=== PATIENT | female | born 1950 | race Caucasian/White ===

== ENCOUNTER → 2020-03-09 08:49 | Outpatient (BNVA) | payer MEDICARE, SELFPAY | PROVIDERS: PCP Emergency Medicine; Referring Provider Internal Medicine; Visit Provider Hospitalist | DX: J44.9 Chronic obstructive pulmonary disease, unspecified (principal); J30.9 Allergic rhinitis, unspecified | CPT/HCPCS: 99212 ==

== ENCOUNTER 2020-04-11 10:29 | Outpatient (REF) | payer MEDICARE, SELFPAY ==
--- NOTE | 2020-04-11 10:33 | MM_ITS ---
EXAMINATION: MM SCREENING DIGITAL BREAST TOMOSYNTHESIS, BILATERAL CLINICAL INFORMATION: Screening. Asymptomatic. The lifetime risk of breast cancer based on the Tyrer-Cuzick Model is 4%. COMPARISON: Mammography: 02/02/2019, 01/22/2018 TECHNIQUE: Digital breast tomosynthesis is performed in both the craniocaudal and mediolateral oblique views along with computer-aided detection (CAD). Synthesized 2D images are generated from the tomosynthesis. FINDINGS: There are scattered areas of fibroglandular density (ACR BI-RADS breast composition Category b). There are no significant masses, abnormal calcifications, or other abnormalities. There is a dermal lesion overlying the upper outer left breast. MM/MM tomosynthesis screening BI IMPRESSION: No mammographic evidence of malignancy. ASSESSMENT: BI-RADS 2: Benign RECOMMENDATION: Routine annual mammography screening. This patient's information was entered into a reminder system with a target due date for their next mammogram.
== END 2020-04-11 10:30 | disposition home or self-care (01) ==
LOC: HO.MAMMO 10:29
PROVIDERS: PCP Emergency Medicine; Visit Provider Nurse Practitioner Family
DX: Z12.31 Encounter for screening mammogram for malignant neoplasm of breast (principal)
CPT/HCPCS: 77063; 77067

== ENCOUNTER → 2020-05-24 13:07 | Outpatient (BNVA) | payer MEDICARE, SELFPAY | PROVIDERS: PCP Family Medicine; Referring Provider Family Medicine; Visit Provider Student in an Organized Health Care Education/Training Program | DX: M89.49 Other hypertrophic osteoarthropathy, multiple sites (principal) | CPT/HCPCS: Q3014 ==

== ENCOUNTER → 2020-08-15 13:30 | Outpatient (BNVA) | payer MEDICARE, SELFPAY | PROVIDERS: Visit Provider Hospitalist | DX: J45.50 Severe persistent asthma, uncomplicated (principal); J30.9 Allergic rhinitis, unspecified; J44.9 Chronic obstructive pulmonary disease, unspecified | CPT/HCPCS: 99212 ==

== ENCOUNTER 2020-08-18 10:18 | Outpatient (REF) | payer MEDICARE, SELFPAY ==
--- NOTE | ~2020-08-18 | XR_ITS ---
EXAMINATION: XR CHEST CLINICAL INFORMATION: Asthma COMPARISON: Previous chest x-ray most recent November 2019 TECHNIQUE: 2 views of the chest were obtained. FINDINGS: Cardiac silhouette is enlarged but stable. Hilar and mediastinal contours are unremarkable. The lungs are clear. There is no pleural effusion or pneumothorax. There are degenerative changes of the spine. XR/XR chest 2V IMPRESSION: Stable enlargement of the cardiac silhouette. No evidence for acute disease in the chest.
[2020-08-18 11:25] LABS: MANUAL DIFF FLAG NO
[2020-08-18 11:38] LABS: Basophils Percent Auto 0.7 % (0-2); Eosinophils Absolute Auto 0.3 X10*3/uL (0.0-0.4); Eosinophils Percent Auto 4.8 % (0-4); Hematocrit 45.1 % (37-47); Hemoglobin 14.2 g/dl (12.0-16.0); Imm Gran Abs Auto 0.01 X10*3/uL (0.00-0.03); Imm Gran Pct Auto 0.2 % (0.0-0.4); Lymphocytes Absolute Auto 1.5 X10*3/uL (1.2-4.9); Lymphocytes Percent Auto 27.2 % (20-40); Mean Corpuscular HGB Conc 31.5 g/dl (31.0-35.0); Mean Corpuscular Hemoglobin 29.3 pg (27.0-33.0); Mean Corpuscular Volume 93.2 fL (80-98); Mean Platelet Volume 11.1 fL (9.4-12.3); Monocytes Absolute Auto 0.5 X10*3/uL (0.1-1.2); Monocytes Percent Auto 8.7 % (2-11); Neutrophils Absolute Auto 3.3 X10*3/uL (2.0-8.3); Neutrophils Percent Auto 58.4 % (45-73); Platelet Count 289 X10*3/uL (160-400); Red Blood Count 4.84 X10*6/uL (4.20-5.50); Red Cell Distribution Width 12.5 % (11.0-16.0); White Blood Count 5.6 X10*3/uL (4.8-10.8)
[2020-08-18 12:23] LABS: Erythrocyte Sedimentation Rate 7 MM/HR (0-20)
[2020-08-21 07:58] LABS: SARS COV2 IgG Negative (Negative)
[2020-08-22 01:12] LABS: Immunoglobulin G Subclass 1 593 mg/dL (382-929); Immunoglobulin G Subclass 2 468 mg/dL (241-700); Immunoglobulin G Subclass 3 68 mg/dL (22-178); Immunoglobulin G Total 1214 mg/dL (600-1540)
== END 2020-08-18 10:19 | disposition home or self-care (01) ==
LOC: HO.XRAY 10:18
PROVIDERS: Visit Provider Hospitalist
DX: J45.50 Severe persistent asthma, uncomplicated (principal); Z20.822 Contact with and (suspected) exposure to COVID-19
CPT/HCPCS: 36415; 71046; 82784; 82785; 85025; 85652; 86003; 86769

== ENCOUNTER 2020-08-24 15:23 | Outpatient (REF) | payer MEDICARE, SELFPAY ==
--- NOTE | ~2020-08-24 | XR_ITS ---
EXAMINATION: XR ABDOMEN WITH DECUBITUS VIEWS CLINICAL INDICATION: Diverticulitis and large intestine without perforation COMPARISON: None TECHNIQUE: Supine and upright views of the abdomen and pelvis FINDINGS: There are no dilated loops of bowel or air-fluid levels to suggest obstruction. There are surgical clips in the right lower quadrant. No calcifications are seen. There are mild degenerative changes of the lower lumbar spine. XR/XR abdomen w decubitus IMPRESSION: No evidence of obstruction or free air.
[2020-08-24 17:22] LABS: MANUAL DIFF FLAG NO
[2020-08-24 17:26] LABS: Basophils Percent Auto 0.5 % (0-2); Eosinophils Absolute Auto 0.2 X10*3/uL (0.0-0.4); Eosinophils Percent Auto 2.8 % (0-4); Hematocrit 43.8 % (37-47); Hemoglobin 14.2 g/dl (12.0-16.0); Imm Gran Abs Auto 0.02 X10*3/uL (0.00-0.03); Imm Gran Pct Auto 0.3 % (0.0-0.4); Lymphocytes Absolute Auto 2.1 X10*3/uL (1.2-4.9); Lymphocytes Percent Auto 27.1 % (20-40); Mean Corpuscular HGB Conc 32.4 g/dl (31.0-35.0); Mean Corpuscular Hemoglobin 29.9 pg (27.0-33.0); Mean Corpuscular Volume 92.2 fL (80-98); Mean Platelet Volume 11.3 fL (9.4-12.3); Monocytes Absolute Auto 0.7 X10*3/uL (0.1-1.2); Monocytes Percent Auto 8.5 % (2-11); Neutrophils Absolute Auto 4.7 X10*3/uL (2.0-8.3); Neutrophils Percent Auto 60.8 % (45-73); Platelet Count 260 X10*3/uL (160-400); Red Blood Count 4.75 X10*6/uL (4.20-5.50); Red Cell Distribution Width 12.3 % (11.0-16.0); White Blood Count 7.7 X10*3/uL (4.8-10.8)
[2020-08-24 17:45] LABS: Alanine Aminotransferase 17 U/L (0-31); Albumin Level 4.3 g/dL (3.5-5.0); Alkaline Phosphatase 88 U/L (39-117); Anion Gap 13 (12-20); Aspartate Amino Transferase 17 U/L (5-31); Bilirubin Total 1.1 mg/dL (0.0-1.0); Blood Urea Nitrogen 17 mg/dL (9-16); Calcium 9.8 mg/dL (8.4-10.2); Carbon Dioxide 27 mmol/L (22-29); Chloride 102 mmol/L (96-108); Estimated Glomerular Filt Rate > 60; Glucose Random 84 mg/dL (60-115); Potassium 4.1 mmol/L (3.3-5.1); Sodium 138 mmol/L (135-145); Total Protein 7.4 g/dL (6.5-8.0)
== END 2020-08-24 15:24 | disposition home or self-care (01) ==
LOC: HO.XRAY 15:23
PROVIDERS: PCP Emergency Medicine; Referring Provider Emergency Medicine; Visit Provider Nurse Practitioner
DX: K57.32 Diverticulitis of large intestine without perforation or abscess without bleeding (principal); K58.9 Irritable bowel syndrome, unspecified; K21.9 Gastro-esophageal reflux disease without esophagitis; K59.04 Chronic idiopathic constipation; Z79.899 Other long term (current) drug therapy
CPT/HCPCS: 36415; 74021; 80053; 85025; 99212

== ENCOUNTER 2020-08-30 09:47 | Outpatient (REF) | payer MEDICARE, SELFPAY | END 2020-08-30 09:48 | disposition home or self-care (01) | LOC: HO.LAB 09:47 | PROVIDERS: Visit Provider Hospitalist | DX: T78.40XA Allergy, unspecified, initial encounter (principal) | CPT/HCPCS: 36415 ==

== ENCOUNTER 2020-09-07 08:02 | Outpatient (REF) | payer MEDICARE, SELFPAY ==
--- NOTE | ~2020-09-07 | XR_ITS ---
EXAMINATION: BILATERAL KNEE X-RAY CLINICAL INFORMATION: Pain COMPARISON: Previous exams most recent August 2018 TECHNIQUE: Standing lateral and sunrise views of each knee FINDINGS: Right: Bone alignment is normal. No fracture or dislocation is seen. There is mild arthritis at the medial femoral tibial and patellofemoral joints with small osteophytes. There is no significant joint effusion. Left: Bone alignment is normal. No fracture or dislocation is seen. There is arthritis at the medial femoral tibial and patellofemoral joints. There is a moderate-sized joint effusion. There is increased soft tissue attenuation seen deep to the patellar tendon and Hoffa's fat pad. XR/XR knee RT 2V IMPRESSION: Arthritis, left greater than right. Moderate to large left knee joint effusion and increased attenuation in the soft tissues deep to the patellar tendon in Hoffa's fat pad.
--- NOTE | ~2020-09-07 | XR_ITS ---
EXAMINATION: BILATERAL KNEE X-RAY CLINICAL INFORMATION: Pain COMPARISON: Previous exams most recent August 2018 TECHNIQUE: Standing lateral and sunrise views of each knee FINDINGS: Right: Bone alignment is normal. No fracture or dislocation is seen. There is mild arthritis at the medial femoral tibial and patellofemoral joints with small osteophytes. There is no significant joint effusion. Left: Bone alignment is normal. No fracture or dislocation is seen. There is arthritis at the medial femoral tibial and patellofemoral joints. There is a moderate-sized joint effusion. There is increased soft tissue attenuation seen deep to the patellar tendon and Hoffa's fat pad. XR/XR knee LT 2V IMPRESSION: Arthritis, left greater than right. Moderate to large left knee joint effusion and increased attenuation in the soft tissues deep to the patellar tendon in Hoffa's fat pad.
--- NOTE | ~2020-09-07 | XR_ITS ---
EXAMINATION: BILATERAL KNEE X-RAY CLINICAL INFORMATION: Pain COMPARISON: Previous exams most recent August 2018 TECHNIQUE: Standing lateral and sunrise views of each knee FINDINGS: Right: Bone alignment is normal. No fracture or dislocation is seen. There is mild arthritis at the medial femoral tibial and patellofemoral joints with small osteophytes. There is no significant joint effusion. Left: Bone alignment is normal. No fracture or dislocation is seen. There is arthritis at the medial femoral tibial and patellofemoral joints. There is a moderate-sized joint effusion. There is increased soft tissue attenuation seen deep to the patellar tendon and Hoffa's fat pad. XR/XR knee standing BI IMPRESSION: Arthritis, left greater than right. Moderate to large left knee joint effusion and increased attenuation in the soft tissues deep to the patellar tendon in Hoffa's fat pad.
== END 2020-09-07 08:03 | disposition home or self-care (01) ==
LOC: HO.HOSX 08:02
PROVIDERS: Visit Provider Physician Assistant
DX: M25.561 Pain in right knee (principal); M25.562 Pain in left knee
CPT/HCPCS: 73560; 73565; 99202

== ENCOUNTER 2020-09-26 21:58 | Emergency (ER) | payer MEDICARE, SELFPAY ==
--- NOTE | ~2020-09-26 | CT_ITS ---
EXAMINATION: CT ABDOMEN AND PELVIS WITH CONTRAST CLINICAL INFORMATION: Left-sided abdominal pain with nausea/vomiting for 4 months COMPARISON: 04/19/2019 TECHNIQUE: Multidetector volumetric images were obtained from the superior aspect of the liver through the pubic symphysis following administration 85 mL of Omnipaque 350 intravenous contrast. Sagittal and coronal reformatted images were obtained on the technologist's workstation. Oral contrast: No This CT examination was performed using dose optimization techniques as appropriate, variously including the following: *Automated exposure control *Adjustment of mA and/or kV according to patient size (this includes techniques or standardized protocols for targeted exams where dose is matched to indication/reason for exam; i.e. extremities or head) *Use of iterative reconstruction technique DLP: 813 mGy-cm FINDINGS: LUNG BASES: The visualized lung bases are unremarkable. LIVER, GALLBLADDER, AND BILIARY TREE: The liver is normal in size, shape, and attenuation. No focal hepatic lesion or biliary ductal dilatation is present. Cholelithiasis is noted, with gallbladder assessment limited due to motion artifact. PANCREAS: Unremarkable. SPLEEN: Unremarkable. ADRENAL GLANDS: Unremarkable. KIDNEYS AND URETERS: The kidneys are normal in size, shape, and attenuation. Small hypodensity in the upper left kidney is suggestive of a cyst. Mild right hydronephrosis, though no obstructing calculus is seen. No perinephric stranding. BLADDER: Unremarkable. GASTROINTESTINAL TRACT: The small and large bowel are unremarkable. Patient appears status post appendectomy. No free fluid or free air is seen. ABDOMINAL WALL: No significant hernia is appreciated. LYMPH NODES: Normal. VASCULAR: Scattered atherosclerotic calcifications noted. PELVIC VISCERA: Unremarkable. OSSEOUS STRUCTURES: There is facet arthropathy of the lumbar spine. Anterior superior endplate osteophyte noted at L4. CT/CT abdomen pelvis w con IMPRESSION: 1. Cholelithiasis. If there is clinical concern for cholecystitis, this would be better assessed with ultrasound. 2. Mild right hydronephrosis with no obstructing calculus seen. 3. No acute bowel abnormality.
[2020-09-26 22:39] VITALS: BP 154/118; PULSE 92; RESP 18; TEMP 36.4; O2SAT 94; BMI 34.3
[2020-09-26 23:13] LABS: MANUAL DIFF FLAG NO
[2020-09-26 23:14] LABS: Basophils Absolute Auto 0.1 X10*3/uL (0.0-0.2); Basophils Percent Auto 0.6 % (0-2); Eosinophils Absolute Auto 0.3 X10*3/uL (0.0-0.4); Eosinophils Percent Auto 3.1 % (0-4); Hemoglobin 14.1 g/dl (12.0-16.0); Imm Gran Abs Auto 0.01 X10*3/uL (0.00-0.03); Imm Gran Pct Auto 0.1 % (0.0-0.4); Lymphocytes Absolute Auto 2.3 X10*3/uL (1.2-4.9); Lymphocytes Percent Auto 27.6 % (20-40); Mean Corpuscular HGB Conc 33.6 g/dl (31.0-35.0); Mean Corpuscular Hemoglobin 30.2 pg (27.0-33.0); Mean Corpuscular Volume 89.9 fL (80-98); Mean Platelet Volume 10.5 fL (9.4-12.3); Monocytes Absolute Auto 0.8 X10*3/uL (0.1-1.2); Monocytes Percent Auto 9.9 % (2-11); Neutrophils Percent Auto 58.7 % (45-73); Platelet Count 314 X10*3/uL (160-400); Red Blood Count 4.67 X10*6/uL (4.20-5.50); Red Cell Distribution Width 12.2 % (11.0-16.0); White Blood Count 8.5 X10*3/uL (4.8-10.8)
[2020-09-26 23:17] LABS: Glucose Urine UA NEG (NEG); Leukocyte Esterase Urine NEG (NEG); Nitrite Urine NEG (NEG); Specific Gravity - Urine 1.025 (1.005-1.025); Urine Blood 1+ (NEG); Urine Ketones NEG (NEG); Urine Protein NEG (NEG-TRACE)
[2020-09-26 23:22] LABS: Appearance Urine CLEAR; Color Urine YELLOW
[2020-09-26 23:26] LABS: Bacteria Urine 1+ /LPF; Mucus Urine 1+ /LPF; Squamous Epithelial Cell Urine 1+ /LPF
[2020-09-26 23:40] LABS: Lipase 18 U/L (8-78)
[2020-09-26 23:42] LABS: Alanine Aminotransferase 18 U/L (0-31); Albumin Level 4.3 g/dL (3.5-5.0); Alkaline Phosphatase 82 U/L (39-117); Anion Gap 12 (12-20); Aspartate Amino Transferase 16 U/L (5-31); Bilirubin Total 1.1 mg/dL (0.0-1.0); Blood Urea Nitrogen 16 mg/dL (9-16); Calcium 10.1 mg/dL (8.4-10.2); Carbon Dioxide 28 mmol/L (22-29); Chloride 105 mmol/L (96-108); Creatinine Clr Calc Pharmacy 69.5; Estimated Glomerular Filt Rate > 60; Glucose Random 125 mg/dL (60-115); Potassium 3.8 mmol/L (3.3-5.1); Sodium 141 mmol/L (135-145); Total Protein 7.3 g/dL (6.5-8.0)
--- NOTE | 2020-09-27 01:34 | ED_ITS ---
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 Mode of arrival: ambulatory Limitations: no limitations History of Present Illness MD elicited complaint: abdominal pain Pertinent past history: constipation and diverticulitis Onset (ago): month(s) (4) Pain Consistency: constant Location: LLQ and L flank Severity: severe Quality: stabbing Exacerbating factors: nothing Relieving factors: nothing Context: history of similar episodes Associated symptoms: nausea, vomiting and constipation Related Data Home Medications Medication Instructions Recorded Confirmed albuterol sulfate 90 mcg/actuation INHALATION 03/09/20 08/15/20 aerosol inhaler amitriptyline 25 mg tablet 25 mg PO BEDTIME 03/09/20 08/15/20 aspirin 81 mg chewable tablet 1 tab PO DAILY 03/09/20 08/15/20 carvedilol 3.125 mg tablet 3.125 mg PO BID 03/09/20 08/15/20 diltiazem HCl 240 mg 240 mg PO DAILY 03/09/20 08/15/20 capsule,extended release 24 hr docusate sodium 100 mg capsule 100 mg PO QID PRN 03/09/20 08/15/20 ergocalciferol (vitamin D2) 1,250 1,250 mcg PO QWEEK 03/09/20 08/15/20 mcg (50,000 unit) capsule furosemide 40 mg tablet 40 mg PO DAILY 03/09/20 08/15/20 gabapentin 300 mg capsule 0 mg PO 03/09/20 08/15/20 hydralazine 50 mg tablet 50 mg PO BID 03/09/20 08/15/20 hydrochlorothiazide 50 mg tablet 50 mg PO DAILY 03/09/20 08/15/20 lisinopril 40 mg tablet 40 mg PO DAILY 03/09/20 08/15/20 melatonin 10 mg capsule 10 mg PO BEDTIME 03/09/20 08/15/20 metaxalone 800 mg tablet 800 mg PO TID PRN 03/09/20 08/15/20 omeprazole 20 mg capsule,delayed 20 mg PO DAILY 03/09/20 08/15/20 release plecanatide 3 mg tablet 3 mg PO DAILY 03/09/20 08/15/20 Previous Rx's Medication Instructions Recorded loratadine 10 mg tablet 10 mg PO DAILY 30 Days #30 tab 03/09/20 linaclotide 290 mcg capsule 290 mcg PO QAM #30 cap 08/10/20 albuterol sulfate 2.5 mg INHALATION Q4H PRN 30 Days 08/15/20 #360 ml prednisone 10 mg tablet 10 mg PO DAILY 18 Days #63 tab 08/15/20 budesonide 0.5 mg/2 mL suspension 0.5 mg INHALATION DAILY #180 ml 08/24/20 for nebulization dicyclomine 10 mg capsule 20 mg PO QID PRN #120 cap 08/24/20 levofloxacin 750 mg tablet 750 mg PO Q24H 10 Days #10 tab 08/24/20 metronidazole 500 mg tablet 500 mg PO TID 10 Days #30 tab 08/24/20 celecoxib 200 mg capsule 200 mg PO BID 30 Days #60 cap 09/07/20 fluticasone furoate 200 1 inh INHALATION DAILY 30 Days #60 09/18/20 mcg-vilanterol 25 mcg/dose ea inhalation powder umeclidinium 62.5 mcg/actuation 1 inh PO DAILY 30 Days #30 ea 09/18/20 blister powder for inhalation montelukast 10 mg tablet 10 mg PO DAILY 30 Days #30 tab 09/19/20 cyclobenzaprine 5 mg PO TID PRN #14 tab 09/27/20 ondansetron 4 mg PO Q8H PRN #20 tab 09/27/20 Allergies Allergy/AdvReac Type Severity Reaction Status Date / Time morphine [MORPHINE] Allergy Intermediate NAUSEA, Verified 09/26/20 22:38 rash, redness bisacodyl Allergy Mild abdominal Verified 09/26/20 22:38 [Dulcolax (bisacodyl)] pain Review of Systems Review of Systems Constitutional : No Weight loss, No Fever, No Chills ENT/Mouth : No sore throat, No Rhinorrhea Eyes: No Swelling, No Redness Cardiovascular : No Chest Pain, No SOB, NoEdema Respiratory : No Cough, No Sputum, No Wheezing Gastrointestinal : Positive Nausea, Positive Vomiting, no Diarrhea, positive abdominal Pain, No Hematochezia, No Melena Genitourinary : No Dysuria, No Urinary Frequency, No Hematuria, No Urgency Musculoskeletal : No joint pain, No Myalgias, No Joint Swelling Skin : No Skin Lesions, No rash Neuro : No Weakness, No Numbness, No Dizziness, No Headache Psych : No Anxiety/Panic, No Depression Heme/Lymph: No Bruising, No Lymphadenopathy Endocrine : No Polyuria, No Polydipsia All other systems reviewed and are negative. Physical Exam Vital Signs: Vital Signs: Last Vital Signs Temp 98.1 F 09/27/20 01:40 Pulse 83 09/27/20 01:40 Resp 16 09/27/20 01:40 BP 174/93 H 09/27/20 01:40 Pulse Ox 95 09/27/20 01:40 Body Mass Index 34.3 Appearance: Alert. Oriented X3. No acute distress. Eyes: Pupils equal, round and reactive to light. ENT: Pharynx normal. Neck: Normal inspection. Neck supple. CVS: Normal heart rate and rhythm. Pulses normal. Respiratory: No respiratory distress. Breath sounds normal. Abdomen: Soft and moderate LLQ pain, no rebound or guarding Skin: Skin warm and dry. Normal skin color. Normal skin turgor. Extremities: No lower extremity edema. No calf ttp Neuro: Oriented X 3. No motor deficit. No sensory deficit. Course Course Course Narrative: pateint feels much better no acute findings in LLQ and she has no RUQ pain at site of gallstones, normal UA, feels very relieved no large cancerous mass seen in that area will refer her to her PCP MDM - Abdominal Pain MDM Narrative Medical decision making narrative: 70 yo female with L sided abdominal pain x 4 months now with n/v worsening pain, has seen GI started on antibiotics for presumed diverticulitis on 08/24 completed course but no imaging ordered or done at this time - will need labs, IV pain mediations, CT scan for mass/constipation/diverticulitis dispo per results and findings Lab Data Result diagrams: 09/27/20 02:03 09/27/20 02:03 Labs: Lab Results 09/26/20 09/26/20 09/26/20 Range/Units 23:05 23:05 23:06 WBC (4.8-10.8) X10*3/uL RBC (4.20-5.50) X10*6/uL Hgb (12.0-16.0) g/dl Hct (37-47) % MCV (80-98) fL MCH (27.0-33.0) pg MCHC (31.0-35.0) g/dl RDW (11.0-16.0) % Plt Count (160-400) X10*3/uL MPV (9.4-12.3) fL Immature Gran % (Auto) (0.0-0.4) % Neut % (Auto) (45-73) % Lymph % (Auto) (20-40) % [place] % (Auto) (2-11) % Eos % (Auto) (0-4) % Baso % (Auto) (0-2) % Lymph # (Auto) (1.2-4.9) X10*3/uL [place] # (Auto) (0.1-1.2) X10*3/uL Eos # (Auto) (0.0-0.4) X10*3/uL Baso # (Auto) (0.0-0.2) X10*3/uL Abs Immat Gran (auto) (0.00-0.03) X10*3/uL Absolute Neuts (auto) (2.0-8.3) X10*3/uL Absolute Nucleated RBC (0.0-0.012) X10*3/uL Nucleated RBC % (auto) (0.0-0.2) /100WBC Hold Blue Top Sodium 141 (135-145) mmol/L Potassium 3.8 (3.3-5.1) mmol/L Chloride 105 (96-108) mmol/L Carbon Dioxide 28 (22-29) mmol/L Anion Gap 12 (12-20) BUN 16 (9-16) mg/dL Creatinine 0.78 (0.5-1.4) mg/dL Estim Creat Clear Calc 69.5 Estimated GFR > 60 Random Glucose 125 H D (60-115) mg/dL Calcium 10.1 (8.4-10.2) mg/dL Magnesium (1.6-2.6) mg/dL Total Bilirubin 1.1 H (0.0-1.0) mg/dL Direct Bilirubin (0.0-0.5) mg/dL AST 16 (5-31) U/L ALT 18 (0-31) U/L Alkaline Phosphatase 82 (39-117) U/L Total Protein 7.3 (6.5-8.0) g/dL Albumin 4.3 (3.5-5.0) g/dL Lipase 18 (8-78) U/L Urine Color YELLOW Urine Appearance CLEAR Urine pH 6.0 (5.0-8.0) Ur Specific [place] 1.025 (1.005-1.025) Urine Protein NEG (NEG-TRACE) MG/DL Urine Glucose (UA) NEG (NEG) MG/DL Urine Ketones NEG (NEG) MG/DL Urine Blood 1+ H (NEG) Urine Nitrite NEG (NEG) Ur Leukocyte Esterase NEG (NEG) Urine RBC 1-4 (0) /HPF Urine WBC 1-4 (0-4) /HPF Ur Squamous Epith Cells 1+ /LPF Urine Bacteria 1+ /LPF Urine Mucus 1+ /LPF COVID-19 ([facility]) (Negative) COVID-19 Clin Com 09/26/20 09/26/20 09/27/20 Range/Units 23:06 23:06 02:03 WBC 8.5 8.1 (4.8-10.8) X10*3/uL RBC 4.67 4.87 (4.20-5.50) X10*6/uL Hgb 14.1 14.6 (12.0-16.0) g/dl Hct 42.0 44.2 (37-47) % MCV 89.9 90.8 (80-98) fL MCH 30.2 30.0 (27.0-33.0) pg MCHC 33.6 33.0 (31.0-35.0) g/dl RDW 12.2 12.3 (11.0-16.0) % Plt Count 314 319 (160-400) X10*3/uL MPV 10.5 10.5 (9.4-12.3) fL Immature Gran % (Auto) 0.1 0.2 (0.0-0.4) % Neut % (Auto) 58.7 57.4 (45-73) % Lymph % (Auto) 27.6 27.3 (20-40) % [place] % (Auto) 9.9 11.4 H (2-11) % Eos % (Auto) 3.1 3.2 (0-4) % Baso % (Auto) 0.6 0.5 (0-2) % Lymph # (Auto) 2.3 2.2 (1.2-4.9) X10*3/uL [place] # (Auto) 0.8 0.9 (0.1-1.2) X10*3/uL Eos # (Auto) 0.3 0.3 (0.0-0.4) X10*3/uL Baso # (Auto) 0.1 0.0 (0.0-0.2) X10*3/uL Abs Immat Gran (auto) 0.01 0.02 (0.00-0.03) X10*3/uL Absolute Neuts (auto) 5.0 4.6 (2.0-8.3) X10*3/uL Absolute Nucleated RBC 0.000 0.000 (0.0-0.012) X10*3/uL Nucleated RBC % (auto) 0.0 0.0 (0.0-0.2) /100WBC Hold Blue Top SEE NOTE Sodium (135-145) mmol/L Potassium (3.3-5.1) mmol/L Chloride (96-108) mmol/L Carbon Dioxide (22-29) mmol/L Anion Gap (12-20) BUN (9-16) mg/dL Creatinine (0.5-1.4) mg/dL Estim Creat Clear Calc Estimated GFR Random Glucose (60-115) mg/dL Calcium (8.4-10.2) mg/dL Magnesium (1.6-2.6) mg/dL Total Bilirubin (0.0-1.0) mg/dL Direct Bilirubin (0.0-0.5) mg/dL AST (5-31) U/L ALT (0-31) U/L Alkaline Phosphatase (39-117) U/L Total Protein (6.5-8.0) g/dL Albumin (3.5-5.0) g/dL Lipase (8-78) U/L Urine Color Urine Appearance Urine pH (5.0-8.0) Ur Specific [place] (1.005-1.025) Urine Protein (NEG-TRACE) MG/DL Urine Glucose (UA) (NEG) MG/DL Urine Ketones (NEG) MG/DL Urine Blood (NEG) Urine Nitrite (NEG) Ur Leukocyte Esterase (NEG) Urine RBC (0) /HPF Urine WBC (0-4) /HPF Ur Squamous Epith Cells /LPF Urine Bacteria /LPF Urine Mucus /LPF COVID-19 ([facility]) (Negative) COVID-19 Clin Com 09/27/20 09/27/20 09/27/20 Range/Units 02:03 02:03 02:03 WBC (4.8-10.8) X10*3/uL RBC (4.20-5.50) X10*6/uL Hgb (12.0-16.0) g/dl Hct (37-47) % MCV (80-98) fL MCH (27.0-33.0) pg MCHC (31.0-35.0) g/dl RDW (11.0-16.0) % Plt Count (160-400) X10*3/uL MPV (9.4-12.3) fL Immature Gran % (Auto) (0.0-0.4) % Neut % (Auto) (45-73) % Lymph % (Auto) (20-40) % [place] % (Auto) (2-11) % Eos % (Auto) (0-4) % Baso % (Auto) (0-2) % Lymph # (Auto) (1.2-4.9) X10*3/uL [place] # (Auto) (0.1-1.2) X10*3/uL Eos # (Auto) (0.0-0.4) X10*3/uL Baso # (Auto) (0.0-0.2) X10*3/uL Abs Immat Gran (auto) (0.00-0.03) X10*3/uL Absolute Neuts (auto) (2.0-8.3) X10*3/uL Absolute Nucleated RBC (0.0-0.012) X10*3/uL Nucleated RBC % (auto) (0.0-0.2) /100WBC Hold Blue Top SEE NOTE Sodium 140 (135-145) mmol/L Potassium 4.2 (3.3-5.1) mmol/L Chloride 103 (96-108) mmol/L Carbon Dioxide 27 (22-29) mmol/L Anion Gap 14 (12-20) BUN 18 H (9-16) mg/dL Creatinine 0.74 (0.5-1.4) mg/dL Estim Creat Clear Calc 73.4 Estimated GFR > 60 Random Glucose 89 (60-115) mg/dL Calcium 10.3 H (8.4-10.2) mg/dL Magnesium 2.0 (1.6-2.6) mg/dL Total Bilirubin 1.1 H (0.0-1.0) mg/dL Direct Bilirubin 0.3 (0.0-0.5) mg/dL AST 19 (5-31) U/L ALT 21 (0-31) U/L Alkaline Phosphatase 93 (39-117) U/L Total Protein 7.8 (6.5-8.0) g/dL Albumin 4.5 (3.5-5.0) g/dL Lipase 19 (8-78) U/L Urine Color Urine Appearance Urine pH (5.0-8.0) Ur Specific [place] (1.005-1.025) Urine Protein (NEG-TRACE) MG/DL Urine Glucose (UA) (NEG) MG/DL Urine Ketones (NEG) MG/DL Urine Blood (NEG) Urine Nitrite (NEG) Ur Leukocyte Esterase (NEG) Urine RBC (0) /HPF Urine WBC (0-4) /HPF Ur Squamous Epith Cells /LPF Urine Bacteria /LPF Urine Mucus /LPF COVID-19 ([facility]) Negative (Negative) COVID-19 Clin Com See Note Discharge Plan Discharge Clinical Impression: Abdominal pain Qualifiers: Abdominal location: left lower quadrant Qualified Code(s): R10.32 - Left lower quadrant pain Gallstone Qualifiers: Cholecystitis presence: without cholecystitis Biliary obstruction: without biliary obstruction Qualified Code(s): K80.20 - Calculus of gallbladder without cholecystitis without obstruction Patient Disposition: Home, Self-Care Instructions: Gallstones (ED), Abdominal Pain (ED) Additional Instructions: return to ED for any worsening symptoms or concerns Prescriptions: New cyclobenzaprine 10 mg tablet 5 mg PO TID PRN (Reason: muscle spasm) Qty: 14 RF: 0 ondansetron 4 mg tablet,disintegrating 4 mg PO Q8H PRN (Reason: nausea and vomiting) Qty: 20 RF: 0 No Action linaclotide [Linzess] 290 mcg capsule 290 mcg PO QAM Qty: 30 RF: 2 budesonide 0.5 mg/2 mL suspension for nebulization 0.5 mg inhalation DAILY Qty: 180 RF: 3 dicyclomine 10 mg capsule 20 mg PO QID PRN (Reason: for cramps) Qty: 120 RF: 3 Breo Ellipta 200-25 mcg/dose blister with device 1 inh inhalation DAILY 30 Days Qty: 60 RF: 11 Incruse Ellipta 62.5 mcg/actuation blister with device 1 inh PO DAILY 30 Days Qty: 30 RF: 11 montelukast 10 mg tablet 10 mg PO DAILY 30 Days Qty: 30 RF: 11 gabapentin 300 mg capsule 0 mg PO RF: 0 carvedilol 3.125 mg tablet 3.125 mg PO BID RF: 0 furosemide 40 mg tablet 40 mg PO DAILY RF: 0 ergocalciferol (vitamin D2) 1,250 mcg (50,000 unit) capsule 1,250 mcg PO QWEEK RF: 0 hydralazine 50 mg tablet 50 mg PO BID RF: 0 lisinopril 40 mg tablet 40 mg PO DAILY RF: 0 aspirin 81 mg tablet,chewable 1 tab PO DAILY RF: 0 albuterol sulfate 90 mcg/actuation HFA aerosol inhaler inhalation RF: 0 omeprazole 20 mg capsule,delayed release(DR/EC) 20 mg PO DAILY RF: 0 diltiazem HCl 240 mg capsule,extended release 24hr 240 mg PO DAILY RF: 0 amitriptyline 25 mg tablet 25 mg PO BEDTIME RF: 0 hydrochlorothiazide 50 mg tablet 50 mg PO DAILY RF: 0 Trulance 3 mg tablet 3 mg PO DAILY RF: 0 docusate sodium 100 mg capsule 100 mg PO QID PRNRF: 0 metaxalone 800 mg tablet 800 mg PO TID PRNRF: 0 melatonin 10 mg capsule 10 mg PO BEDTIME RF: 0 loratadine [Claritin] 10 mg tablet 10 mg PO DAILY 30 Days Qty: 30 RF: 11 metronidazole [Flagyl] 500 mg tablet 500 mg PO TID 10 Days Qty: 30 RF: 0 levofloxacin 750 mg tablet 750 mg PO Q24H 10 Days Qty: 10 RF: 0 albuterol sulfate 2.5 mg /3 mL (0.083 %) solution for nebulization 2.5 mg inhalation Q4H PRN (Reason: shortness of breath or wheezing) 30 Days Qty: 360 RF: 11 prednisone 10 mg tablet 10 mg PO DAILY 18 Days Qty: 63 RF: 0 celecoxib [Celebrex] 200 mg capsule 200 mg PO BID 30 Days Qty: 60 RF: 3 Referrals: [place],[facility] [Primary Care Provider] - 1 week Print Language: Yoruba [facility] Past Medical History Medical History Asthma-COPD overlap syndrome Chronic allergic rhinitis (~03/09/20) Pneumonia Primary osteoarthritis involving multiple joints Severe asthma Surgical History History of esophagogastroduodenoscopy (EGD) History of nasal surgery Hx of section Hx of colonoscopy Hx of knee surgery Hx of tubal ligation Family History Family History Father No problems noted. Mother No problems noted. Social History Social History Alcohol intake: never Smoking Status: Never smoker Use of substances other than those prescribed or required for medical reasons: No Advance Directives: No Advance Directives Information Provided: No
[2020-09-27 01:40] VITALS: BP 174/93; PULSE 83; RESP 16; TEMP 36.7; O2SAT 95
[2020-09-27 02:10] LABS: MANUAL DIFF FLAG NO
[2020-09-27 02:12] LABS: Basophils Percent Auto 0.5 % (0-2); Eosinophils Absolute Auto 0.3 X10*3/uL (0.0-0.4); Eosinophils Percent Auto 3.2 % (0-4); Hematocrit 44.2 % (37-47); Hemoglobin 14.6 g/dl (12.0-16.0); Imm Gran Abs Auto 0.02 X10*3/uL (0.00-0.03); Imm Gran Pct Auto 0.2 % (0.0-0.4); Lymphocytes Absolute Auto 2.2 X10*3/uL (1.2-4.9); Lymphocytes Percent Auto 27.3 % (20-40); Mean Corpuscular Volume 90.8 fL (80-98); Mean Platelet Volume 10.5 fL (9.4-12.3); Monocytes Absolute Auto 0.9 X10*3/uL (0.1-1.2); Monocytes Percent Auto 11.4 % (2-11); Neutrophils Absolute Auto 4.6 X10*3/uL (2.0-8.3); Neutrophils Percent Auto 57.4 % (45-73); Platelet Count 319 X10*3/uL (160-400); Red Blood Count 4.87 X10*6/uL (4.20-5.50); Red Cell Distribution Width 12.3 % (11.0-16.0); White Blood Count 8.1 X10*3/uL (4.8-10.8)
[2020-09-27] MEDS: Ketorolac Tromethamine 15 MG/ML VIAL IVPUSH (02:29)
[2020-09-27] MEDS: ondansetron HCL 4 MG/2 ML VIAL IVPUSH (02:29)
[2020-09-27 02:30] LABS: COVID-19 Test Negative (Negative)
[2020-09-27] MEDS: 0.9 % Sodium Chloride 500 ML IV (02:30)
[2020-09-27 02:40] LABS: Alanine Aminotransferase 21 U/L (0-31); Albumin Level 4.5 g/dL (3.5-5.0); Alkaline Phosphatase 93 U/L (39-117); Anion Gap 14 (12-20); Aspartate Amino Transferase 19 U/L (5-31); Bilirubin Direct 0.3 mg/dL (0.0-0.5); Bilirubin Total 1.1 mg/dL (0.0-1.0); Blood Urea Nitrogen 18 mg/dL (9-16); Calcium 10.3 mg/dL (8.4-10.2); Carbon Dioxide 27 mmol/L (22-29); Chloride 103 mmol/L (96-108); Creatinine Clr Calc Pharmacy 73.4; Estimated Glomerular Filt Rate > 60; Glucose Random 89 mg/dL (60-115); Lipase 19 U/L (8-78); Potassium 4.2 mmol/L (3.3-5.1); Sodium 140 mmol/L (135-145); Total Protein 7.8 g/dL (6.5-8.0)
[2020-09-27] MEDS: iohexoL 350 MG/ML 100 ML INFUS..BTL 85 ML IV (02:54)
[2020-09-27 04:06] VITALS: BP 128/76; PULSE 72; RESP 18; TEMP 36.9; O2SAT 99
== END 2020-09-27 04:10 | disposition home or self-care (01) ==
PROVIDERS: Emergency Provider Emergency Medicine
DX: K80.20 Calculus of gallbladder without cholecystitis without obstruction (principal); R10.32 Left lower quadrant pain; Z20.822 Contact with and (suspected) exposure to COVID-19
CPT/HCPCS: 36415; 74177; 80048; 80053; 80076; 81001; 83690; 83735; 85025; 87635; 96361; 96365; 96375; 99284; J1885; J2405; Q9967

== ENCOUNTER → 2020-09-28 10:13 | Outpatient (BNVA) | payer MEDICARE, SELFPAY | PROVIDERS: Visit Provider Hospitalist | DX: J44.9 Chronic obstructive pulmonary disease, unspecified (principal); J30.9 Allergic rhinitis, unspecified; K21.9 Gastro-esophageal reflux disease without esophagitis | CPT/HCPCS: 99212 ==

== ENCOUNTER → 2020-09-29 10:46 | Outpatient (BNVA) | payer MEDICARE, SELFPAY | PROVIDERS: Visit Provider Nurse Practitioner | DX: K21.9 Gastro-esophageal reflux disease without esophagitis (principal); K59.04 Chronic idiopathic constipation; K58.9 Irritable bowel syndrome, unspecified; K57.32 Diverticulitis of large intestine without perforation or abscess without bleeding; R31.9 Hematuria, unspecified; R10.9 Unspecified abdominal pain; K80.20 Calculus of gallbladder without cholecystitis without obstruction; M54.6 Pain in thoracic spine; N20.0 Calculus of kidney | CPT/HCPCS: 99212 ==

== ENCOUNTER 2020-10-02 10:04 | Outpatient (REF) | payer MEDICARE, SELFPAY ==
--- NOTE | ~2020-10-02 | XR_ITS ---
EXAMINATION: XR HIP, LEFT CLINICAL INFORMATION: Left lower quadrant pain COMPARISON: CT abdomen pelvis 09/27/2020 TECHNIQUE: AP and frog-lateral projections left hip. FINDINGS: Left hip shows normal bony mineralization. There is no fracture, dislocation, destructive process. No hip joint narrowing or erosive change or visible chondrocalcinosis. No diastases left SI joint or pubis. Incidental whiskering lateral iliac crest. Small spur inferior left SI joint. XR/XR hip LT min 2V IMPRESSION: Normal left hip.
== END 2020-10-02 10:05 | disposition home or self-care (01) ==
LOC: HO.XRAY 10:04
PROVIDERS: Absent Provider Nurse Practitioner Family; PCP Nurse Practitioner Family; Visit Provider Nurse Practitioner
DX: R10.32 Left lower quadrant pain (principal)
CPT/HCPCS: 73502

== ENCOUNTER 2020-10-10 08:48 | Outpatient (REF) | payer MEDICARE, MEDICAID, SELFPAY ==
--- NOTE | ~2020-10-10 | XR_ITS ---
EXAMINATION: XR THORACOLUMBAR SPINE CLINICAL INFORMATION: Pain thoracic spine. COMPARISON: None TECHNIQUE: 3 views FINDINGS: There is mild Scoliosis thoracic spine. Thoracic kyphosis is maintained. The vertebral heights and alignment is normal. There is loss of disc height. There is mild ventral spondylosis. No visible acute fracture, dislocation or lytic process seen. XR/XR thoracic spine 2V IMPRESSION: There is mild dextroscoliosis dorsal spine. Mild spondylosis. No acute fracture or lytic process.
== END 2020-10-10 08:49 | disposition home or self-care (01) ==
LOC: HO.XRAY 08:48
PROVIDERS: PCP Nurse Practitioner Family; Referring Provider Nurse Practitioner Family; Visit Provider Nurse Practitioner
DX: R10.9 Unspecified abdominal pain (principal); M54.6 Pain in thoracic spine; R31.9 Hematuria, unspecified; N20.0 Calculus of kidney; K80.20 Calculus of gallbladder without cholecystitis without obstruction; K59.04 Chronic idiopathic constipation; K21.9 Gastro-esophageal reflux disease without esophagitis; K58.9 Irritable bowel syndrome, unspecified
CPT/HCPCS: 72070; 99212

== ENCOUNTER 2020-10-17 11:11 | Outpatient (REF) | payer MEDICARE, MEDICAID, SELFPAY ==
--- NOTE | ~2020-10-17 | US_ITS ---
EXAMINATION: US PELVIS AND TRANSVAGINAL CLINICAL INFORMATION: Left lower quadrant pain. COMPARISON: None. TECHNIQUE: Transabdominal and transvaginal imaging pelvis is performed. Patient requested to stop transvaginal exam has limited study. FINDINGS: The uterus is anteverted measuring 9.1 cm in length, 4.7 cm in AP and 4.0 cm in transverse dimension. The endometrial thickness is 0.4 cm. Previously seen uterine fibroid is not visualized at this time. There are small nabothian cysts seen in the cervix. The right ovary is not seen. The left ovary measures 1.9 x 1.5 x 2.1 cm and volume 2.1 mL. There is no free fluid in cul-de-sac. US/US pelvic and transvaginal IMPRESSION: Small cervical nabothian cysts. Uterus unremarkable. No fibroid seen at this time. Left ovary is unremarkable. The right ovary is unremarkable.
== END 2020-10-17 11:12 | disposition home or self-care (01) ==
LOC: HO.US 11:11
PROVIDERS: Visit Provider Nurse Practitioner Family
DX: R10.32 Left lower quadrant pain (principal)
CPT/HCPCS: 76830; 76856

== ENCOUNTER 2020-10-25 10:23 | Outpatient (REF) | payer MEDICARE, MEDICAID, SELFPAY ==
--- NOTE | ~2020-10-25 | US_ITS ---
EXAMINATION: US ABDOMEN COMPLETE CLINICAL INFORMATION: Calculus of gallbladder without cholecystitis. COMPARISON: CT abdomen and pelvis 09/27/2020. X-ray abdomen 08/24/2020. Ultrasound abdomen 11/28/2015 and 08/18/2014. TECHNIQUE: Real-time imaging of the abdominal viscera. FINDINGS: PANCREAS: Unremarkable ABDOMINAL AORTA: The proximal and mid abdominal aorta is normal in caliber. The distal abdominal aorta is well-visualized. INFERIOR VENA CAVA: Visualized portions are normal. LIVER: The liver is normal in size. The liver contour is normal. Liver echotexture is increased probably representing fatty infiltration. No focal hepatic lesion. There is no intrahepatic biliary duct dilatation seen. GALLBLADDER: The gallbladder is physiologically distended. Multiple mobile gallstones are present. No evidence of gallbladder wall thickening or pericholecystic fluid. COMMON BILE DUCT: Normal in caliber measuring 0.6 cm in diameter. RIGHT KIDNEY: Normal. No hydronephrosis. No renal calculi or focal parenchymal lesions. The kidney measures 11.1 cm in maximum dimension. LEFT KIDNEY: There is a small 1.2 x 0.8 x 0.7 cm cyst in the upper pole. No hydronephrosis or renal calculi. The kidney measures 10.6 cm in maximum dimension. SPLEEN: Normal. The spleen measures 8.0 cm in maximum dimension. FREE FLUID: None. US/US abdomen complete IMPRESSION: Gallstones. No evidence of cholecystitis. Echogenic liver probably representing fatty infiltration. Small left renal cyst. Limited visualization of the distal abdominal aorta.
== END 2020-10-25 10:24 | disposition home or self-care (01) ==
LOC: HO.US 10:23
PROVIDERS: Visit Provider Nurse Practitioner
DX: K80.20 Calculus of gallbladder without cholecystitis without obstruction (principal)
CPT/HCPCS: 76700

== ENCOUNTER → 2020-10-27 08:54 | Outpatient (REF) | payer MEDICARE, MEDICAID, SELFPAY ==
--- NOTE | ~2020-10-27 | NM_ITS ---
Myocardial perfusion study Indication: Chest pain to evaluate for myocardial ischemia Technique: The patient was brought in for a Lexiscan perfusion study on 10/27/2020. Patient performed low-level exercise and was injected 0.4 mg of Lexiscan intravenously. Within a minute of injection, 35 mCi of sestamibi was given intravenously. Images were obtained using the SPECT gamma camera interlaced with the gating device. Images were obtained in supine position. Resting perfusion study was performed on 10/30/2020. Patient was administered 35 mCi of sestamibi intravenously at rest. Images were then obtained in supine position. Images obtained with and without CT attenuation. Total DLP 120 mGy-cm. Images were processed with the software and compared side to side in short axis, horizontal long axis and vertical long axis views. Findings: The stress perfusion study showed nonattenuated images show minimally generalized reduced uptake, appears to be more related to count statistics. Overall otherwise perfusion peripherally distributed on nonattenuated images. Attenuated corrected images show mildly reduced uptake in the apex of the LV myocardium.. The gated study shows normal LV systolic function with visually estimated LVEF of greater than 69 %. LV cavity is normal in size. The gated study shows normal systolic wall thickening and contraction of segments. Resting study shows nonattenuated images show normal uptake of radiotracer in all segments of LV myocardium. Attenuation corrected images show mildly reduced uptake in the apex of the LV myocardium.. Gating at rest reveals normal systolic wall motion with ejection fraction at 65%. The findings are consistent with normal myocardial perfusion. NM/NM jarred perf SPECT rest & str Impression: 1. Myocardial perfusion imaging study shows normal myocardial perfusion 2. Gated LVEF is 65% 3. Transient ischemic dilatation not present EKG is nondiagnostic for ischemia
--- NOTE | 2020-10-27 08:57 | CA_ITS ---
Acquisition Time: 2020-10-27 09:17:21 Total Exercise Time: 00:02:00 Test Indications: CP, PALPITATIONS Medications: SEE CHART Protocol: LEXISCAN Max HR: 114 BPM 76% of Pred: 149 BPM Max BP: 142/082 mmHG Max Work Load: 1.0 METS Pharmacological stress test with Lexiscan injection, while sitting and kicking her legs, without anginal symptoms, without arrythmia, with normotensive response to injection, with nondiagnostic EKG for ischemia. Nuclear images pending. Test reviewed with Dr Russo. Referred By: Panfilo Kramer Overread By: MARISSA MURILLO
== END ==
LOC: HO.CARD 08:54
PROVIDERS: Visit Provider Internal Medicine Cardiovascular Disease
DX: R07.9 Chest pain, unspecified (principal)
CPT/HCPCS: 78452; 93017; A9500; J0280; J2785

== ENCOUNTER → 2020-11-14 12:58 | Outpatient (BNVA) | payer MEDICARE, MEDICAID, SELFPAY | PROVIDERS: PCP Nurse Practitioner Family; Referring Provider Nurse Practitioner Family; Visit Provider Nurse Practitioner | DX: K80.20 Calculus of gallbladder without cholecystitis without obstruction (principal); K59.04 Chronic idiopathic constipation; K21.9 Gastro-esophageal reflux disease without esophagitis; K57.32 Diverticulitis of large intestine without perforation or abscess without bleeding; R10.9 Unspecified abdominal pain; N20.0 Calculus of kidney; R31.9 Hematuria, unspecified; D12.6 Benign neoplasm of colon, unspecified | CPT/HCPCS: 99212 ==

== ENCOUNTER 2020-11-20 13:01 | Outpatient (REF) | payer MEDICARE, MEDICAID, SELFPAY ==
--- NOTE | ~2020-11-20 | XR_ITS ---
EXAMINATION: XR HIP, LEFT CLINICAL INFORMATION: Pain COMPARISON: Previous left hip x-ray September 2020 TECHNIQUE: Two views of the left hip. FINDINGS: Bone alignment is normal. No fracture or dislocation is seen. There is mild arthritis with small osteophytes. Soft tissues are unremarkable. XR/XR hip LT min 2V IMPRESSION: Mild left hip arthritis.
== END 2020-11-20 13:02 | disposition home or self-care (01) ==
LOC: HO.XRAY 13:01
PROVIDERS: PCP Nurse Practitioner Family; Visit Provider Nurse Practitioner Family
DX: M16.12 Unilateral primary osteoarthritis, left hip (principal); R10.32 Left lower quadrant pain
CPT/HCPCS: 73502

== ENCOUNTER → 2020-11-23 10:27 | Outpatient (BNVA) | payer MEDICARE, SELFPAY | PROVIDERS: PCP Nurse Practitioner Family; Visit Provider Hospitalist | DX: R91.1 Solitary pulmonary nodule (principal); K21.9 Gastro-esophageal reflux disease without esophagitis; J45.50 Severe persistent asthma, uncomplicated; J44.9 Chronic obstructive pulmonary disease, unspecified; J30.9 Allergic rhinitis, unspecified; Z88.5 Allergy status to narcotic agent; Z79.899 Other long term (current) drug therapy | CPT/HCPCS: 99212 ==

== ENCOUNTER 2020-11-27 13:00 | Outpatient (RCR) | payer MEDICARE, MEDICAID, SELFPAY ==
--- NOTE | 2020-12-18 15:46 | MHC.PT.DC ---
[facility] [place] [facility] [place] [facility] [place] [facility] [address] Vinay Linares 140 [facility] [phone] F: [phone] F: [phone] F: [phone] F: [phone] Physical Therapy Discharge Report Diagnosis: L Knee Pain Date of Surgery: N/A Date of Evaluation: 11/09/20 Date of Discharge: 12/18/20 Treatments to Date: 3 Cancellations to Date: 2 No Shows to Date: 5 Discharge Status: Discharge Summary: Discharged for poor compliance Electronically signed by: Shayla Webb PT, DPT Please sign and return to therapist. Thank you for your referral.
== END 2020-12-18 15:46 | disposition home or self-care (01) ==
LOC: HO.PT 13:00
PROVIDERS: PCP Nurse Practitioner Family; Visit Provider Physician Assistant
DX: M25.562 Pain in left knee (principal)
CPT/HCPCS: 97110; 97161; 97162

== ENCOUNTER 2020-12-04 09:10 | Outpatient (REF) | payer MEDICARE, SELFPAY ==
--- NOTE | ~2020-12-04 | XR_ITS ---
EXAMINATION: XR LUMBAR SPINE XR SACROILIAC JOINTS CLINICAL INFORMATION: Low back pain. COMPARISON: None TECHNIQUE: 3 views lumbar spine. 3 views SI joints. FINDINGS: Lumbar Spine: There is normal lumbar lordosis. The vertebral heights, alignment and disc heights are normal. There is mild endplate spondylosis at L3-L4 disc level. No visible acute fracture, dislocation or lytic process seen. Mild facet joint arthropathy seen at the L4-L5 disc level slightly greater on the left. No acute fracture or lytic process seen. Incidental finding of multiple round radiopaque densities in the right upper quadrant likely gallstones. These were noted on the previous CT chest exam 12/04/2020. SI Joints: There is normal symmetry of bilateral SI joints without any bony erosive changes. No fracture or lytic process seen. There are surgical ruiz in the right pelvis from previous intervention. XR/XR lumbar spine 2-3V IMPRESSION: Mild ventral spondylosis L3-L4 disc level. There is bilateral L4-L5 facet joint arthropathy. No acute fracture or dislocation seen. The SI joints are unremarkable. Incidental finding of radiopaque gallstones.
--- NOTE | ~2020-12-04 | CT_ITS ---
EXAMINATION: CT CHEST WITHOUT CONTRAST CLINICAL INFORMATION: Follow-up pulmonary nodule COMPARISON: Previous chest x-ray most recent August [address] June 2019 TECHNIQUE: Multidetector volumetric CT imaging of the chest was done. Axial MIP volume rendering provided. Sagittal and coronal reformatted images were obtained. This CT examination was performed using dose optimization techniques as appropriate, variously including the following: *Automated exposure control *Adjustment of mA and/or kV according to patient size (this includes techniques or standardized protocols for targeted exams where dose is matched to indication/reason for exam; i.e. extremities or head) *Use of iterative reconstruction technique DLP: 183 mGy-cm FINDINGS: LUNGS: There is a 2 mm calcified right upper lobe nodule axial image 223 series 7 that is stable. There is increasing atelectasis in the lingula. The lungs are otherwise clear. No endobronchial or endotracheal lesion is seen. There are small bilateral posterior diaphragmatic hernias containing fat. MEDIASTINUM: There is very mild coronary artery calcification. The mediastinum is normal. PLEURA: There is no pleural effusion. No pleural mass or thickening. AXILLA: No lymphadenopathy. UPPER ABDOMEN: There are gallstones. OSSEOUS STRUCTURES: There are degenerative changes of the spine. CT/CT chest wo con IMPRESSION: Stable small calcified right upper lobe nodule. Increasing atelectasis in the lingula. Minimal coronary artery calcification. Gallstones.
--- NOTE | ~2020-12-04 | XR_ITS ---
EXAMINATION: XR LUMBAR SPINE XR SACROILIAC JOINTS CLINICAL INFORMATION: Low back pain. COMPARISON: None TECHNIQUE: 3 views lumbar spine. 3 views SI joints. FINDINGS: Lumbar Spine: There is normal lumbar lordosis. The vertebral heights, alignment and disc heights are normal. There is mild endplate spondylosis at L3-L4 disc level. No visible acute fracture, dislocation or lytic process seen. Mild facet joint arthropathy seen at the L4-L5 disc level slightly greater on the left. No acute fracture or lytic process seen. Incidental finding of multiple round radiopaque densities in the right upper quadrant likely gallstones. These were noted on the previous CT chest exam 12/04/2020. SI Joints: There is normal symmetry of bilateral SI joints without any bony erosive changes. No fracture or lytic process seen. There are surgical ruiz in the right pelvis from previous intervention. XR/XR sacroiliac joint min 3V IMPRESSION: Mild ventral spondylosis L3-L4 disc level. There is bilateral L4-L5 facet joint arthropathy. No acute fracture or dislocation seen. The SI joints are unremarkable. Incidental finding of radiopaque gallstones.
== END 2020-12-04 09:11 | disposition home or self-care (01) ==
LOC: HO.CT 09:10
PROVIDERS: Absent Provider Nurse Practitioner; PCP Nurse Practitioner Family; Visit Provider Hospitalist
DX: R91.1 Solitary pulmonary nodule (principal); M54.5 Low back pain
CPT/HCPCS: 71250; 72100; 72202; 99212

== ENCOUNTER 2020-12-25 11:27 | Outpatient (REF) | payer MEDICARE, SELFPAY ==
--- NOTE | ~2020-12-25 | XR_ITS ---
EXAMINATION: XR CHEST CLINICAL INFORMATION: COPD. COMPARISON: Most recent chest CT dated 12/04/2020 TECHNIQUE: Two views of the chest were obtained. FINDINGS: No focal airspace consolidation. No pleural effusion or pneumothorax. Stable cardiomediastinal silhouette. No acute osseous abnormality. XR/XR chest 2V IMPRESSION: No acute cardiopulmonary findings.
== END 2020-12-25 11:28 | disposition home or self-care (01) ==
LOC: HO.XRAY 11:27
PROVIDERS: PCP Nurse Practitioner Family; Visit Provider Internal Medicine
DX: J44.1 Chronic obstructive pulmonary disease with (acute) exacerbation (principal)
CPT/HCPCS: 71046

== ENCOUNTER → 2020-12-27 07:20 | Outpatient (REF) | payer MEDICARE, SELFPAY ==
--- NOTE | ~2020-12-27 | NM_ITS ---
EXAMINATION: SC NUCLEAR MEDICINE HEPATOBILIARY WITHOUT PHARMACY CLINICAL INFORMATION: Calculus of the gallbladder with cholecystitis. COMPARISON: None. TECHNIQUE: Following intravenous administration of 5 mCi of 99m technetium mebrofenin, imaging over the right upper quadrant was obtained up to 120 minutes. Delayed images were obtained at 4 hours through the right upper quadrant. FINDINGS: There is normal hepatic uptake without focal defect. There is prompt excretion of isotope activity in the small bowel by 27 minutes. Gallbladder is visualized around 120 minutes and beyond. SC/SC hepatobiliary wo pharm IMPRESSION: Normal hepatic uptake. Patent CBD. Delayed visualization of gallbladder, suggestive of chronic cholecystitis with patent cystic duct.
== END ==
LOC: HO.NUCMED 07:20
PROVIDERS: PCP Nurse Practitioner Family; Visit Provider Nurse Practitioner
DX: K80.20 Calculus of gallbladder without cholecystitis without obstruction (principal)
CPT/HCPCS: 78226; A9537

== ENCOUNTER → 2020-12-29 10:54 | Outpatient (BNVA) | payer MEDICARE, SELFPAY | PROVIDERS: PCP Nurse Practitioner Family; Visit Provider Hospitalist | DX: J44.9 Chronic obstructive pulmonary disease, unspecified (principal); J45.50 Severe persistent asthma, uncomplicated; R91.1 Solitary pulmonary nodule; K21.9 Gastro-esophageal reflux disease without esophagitis; Z79.899 Other long term (current) drug therapy | CPT/HCPCS: 99212 ==

== ENCOUNTER → 2021-01-02 13:13 | Outpatient (BNVA) | payer MEDICARE, SELFPAY | PROVIDERS: Referring Provider Nurse Practitioner Family; Visit Provider Nurse Practitioner | DX: K59.04 Chronic idiopathic constipation (principal); K21.9 Gastro-esophageal reflux disease without esophagitis; R10.31 Right lower quadrant pain; R10.32 Left lower quadrant pain | CPT/HCPCS: 99212 ==

== ENCOUNTER → 2021-01-10 08:38 | Outpatient (BNVA) | payer MEDICARE, SELFPAY | PROVIDERS: PCP Family Medicine; Visit Provider Nurse Practitioner Family | DX: M89.49 Other hypertrophic osteoarthropathy, multiple sites (principal) | CPT/HCPCS: 99212 ==

== ENCOUNTER 2021-01-19 12:59 | Day surgery (SDC) | payer MEDICARE, SELFPAY ==
[2020-12-14 14:45] VITALS: BMI 35.7
[2021-01-12 16:37] VITALS: BMI 36.1
--- NOTE | 2021-01-18 10:39 | HO.ANESPROP2 ---
Documented by User: Emilie Tavera NP 01/18/21 13:05 HPI - Anesthesia Eval Consult details Narrative: 70yo F for Colonoscopy 12/13/20 Cardiology visit - Echo and stress normal. Carvedilol increased 12/29/20 Pulmo visit - abx and prednisone taper for cough/chest congestion PMFSH Active Problems Active Problems: All Active Problems (Updated 01/02/21 @ 17:53 by ANAMARIA Santos) Lumbar facet arthropathy (Acute) Thoracic spondylosis (Acute) Bilateral lower abdominal pain (Acute) Bronchitis (Acute) Biliary dyskinesia (Acute) GERD (gastroesophageal reflux disease) (Acute) Chronic idiopathic constipation (Acute) Spasm of bowel (Acute) Diverticulitis large intestine (Acute) Patellofemoral arthralgia of left knee (Acute) Hematuria (Acute) Left flank pain (Acute) Nephrolithiasis (Acute) Gallstones (Acute) Thoracic spondylosis (Acute) Dextroscoliosis (Acute) Tubular adenoma of colon (Acute) Abdominal pain (Acute) Abdominal cramping (Acute) Low back pain (Acute) Pulmonary nodule (Acute) Severe asthma (Acute) Primary osteoarthritis involving multiple joints (Acute) Chronic allergic rhinitis (Acute ~03/09/20) Asthma-COPD overlap syndrome (Acute) Past Medical History Medical History Asthma-COPD overlap syndrome Back pain Chronic allergic rhinitis (~03/09/20) Depression GERD (gastroesophageal reflux disease) HTN (hypertension) Kidney stones OTILIO (obstructive sleep apnea) Pneumonia Primary osteoarthritis involving multiple joints Pulmonary nodule Rheumatoid arthritis Severe asthma Skin cancer (melanoma) Family History Family History Father No problems noted. Mother No problems noted. Surgical History Surgical History History of bronchoscopy History of cystoscopy History of esophagogastroduodenoscopy (EGD) History of laparoscopic appendectomy History of nasal surgery Hx of section Hx of colonoscopy Hx of knee surgery Hx of tubal ligation Social History Social History Household Members: Children Housing: Apartment Alcohol intake: never Patient Tobacco Use Status: Never used Tobacco Have you been hit, kicked, punched, or otherwise hurt by someone within the past year? If so, by whom?: No Are you DNR?: No Advance Directives: No Advance Directives Information Provided: No Advance Directives on File: No Recently lost weight without trying: No Eating poorly because of decreased appetite: No Patient : No Current occupational status: disabled Meds Allergies Allergy/AdvReac Type Severity Reaction Status Date / Time morphine [MORPHINE] Allergy Intermediate NAUSEA, Verified 01/10/21 10:01 rash, redness Home Medications Medication Instructions Recorded Confirmed Last Taken Type albuterol sulfate 90 mcg/actuation INHALATION 03/09/20 01/10/21 Unknown History aerosol inhaler aspirin 81 mg chewable tablet 1 tab PO DAILY 03/09/20 01/10/21 Unknown History carvedilol 3.125 mg tablet 3.125 mg PO BID 03/09/20 01/10/21 Unknown History diltiazem HCl 240 mg 240 mg PO DAILY 03/09/20 01/10/21 Unknown History capsule,extended release 24 hr ergocalciferol (vitamin D2) 1,250 1,250 mcg PO QWEEK 03/09/20 01/10/21 Unknown History mcg (50,000 unit) capsule furosemide 40 mg tablet 40 mg PO DAILY 03/09/20 01/10/21 Unknown History gabapentin 300 mg capsule 300 mg PO 03/09/20 01/10/21 Unknown History hydralazine 50 mg tablet 50 mg PO BID 03/09/20 01/10/21 Unknown History hydrochlorothiazide 50 mg tablet 50 mg PO DAILY 03/09/20 01/10/21 Unknown History lisinopril 40 mg tablet 40 mg PO DAILY 03/09/20 01/10/21 Unknown History melatonin 10 mg capsule 10 mg PO BEDTIME 03/09/20 01/10/21 Unknown History metaxalone 800 mg tablet 800 mg PO TID PRN 03/09/20 01/10/21 Unknown History bisacodyl 5 mg tablet,delayed 15 mg PO .2 QHS 1 QNOON tab 11/14/20 01/10/21 Unknown History release roflumilast 250 mcg tablet 1 tab PO QAM 12/14/20 01/10/21 Unknown History (Daliresp) prednisone 20 mg tablet 0 mg PO 08/24/21 09/01/21 Unknown History Exam Exam Date and Time: January 18, 2021 1039 Height,Weight and Vital Signs: Height 5 ft 3 in Weight 92.533 kg Pertinent Lab Results Pertinent Lab Results: Laboratory Tests 09/27/20 09/27/20 02:03 02:03 WBC 8.1 Hgb 14.6 Hct 44.2 Plt Count 319 Sodium 140 Potassium 4.2 Chloride 103 Carbon Dioxide 27 BUN 18 H Creatinine 0.74 Narrative Narrative: NM jarred perf SPECT rest & str 10/2020 Impression: ? 1.? Myocardial perfusion imaging study shows normal myocardial perfusion 2.? Gated LVEF is 65% 3. Transient ischemic dilatation not present ? EKG is nondiagnostic for ischemia Assessment and Plan Assessment Anesthesia Assessment: Chart Reviewed Documented by User: Elma Galeano MD 01/19/21 13:21 [facility] Past Medical History Medical History Asthma-COPD overlap syndrome Back pain Chronic allergic rhinitis (~03/09/20) Depression GERD (gastroesophageal reflux disease) HTN (hypertension) Kidney stones OTILIO (obstructive sleep apnea) Pneumonia Primary osteoarthritis involving multiple joints Pulmonary nodule Rheumatoid arthritis Severe asthma Skin cancer (melanoma) Family History Family History Father No problems noted. Mother No problems noted. Family history of problems with anesthesia: No Surgical History Surgical History History of bronchoscopy History of cystoscopy History of esophagogastroduodenoscopy (EGD) History of laparoscopic appendectomy History of nasal surgery Hx of section Hx of colonoscopy Hx of knee surgery Hx of tubal ligation History of Problems with Anesthesia: No Social History Social History Household Members: Children Housing: Apartment Alcohol intake: never Patient Tobacco Use Status: Never used Tobacco Have you been hit, kicked, punched, or otherwise hurt by someone within the past year? If so, by whom?: No Are you DNR?: No Advance Directives: No Advance Directives Information Provided: No Advance Directives on File: No Recently lost weight without trying: No Eating poorly because of decreased appetite: No Patient : No Current occupational status: disabled Meds Allergies Allergy/AdvReac Type Severity Reaction Status Date / Time morphine [MORPHINE] Allergy Intermediate NAUSEA, Verified 01/10/21 10:01 rash, redness Home Medications Medication Instructions Recorded Confirmed Last Taken Type albuterol sulfate 90 mcg/actuation INHALATION 03/09/20 01/10/21 Unknown History aerosol inhaler aspirin 81 mg chewable tablet 1 tab PO DAILY 03/09/20 01/10/21 Unknown History carvedilol 3.125 mg tablet 3.125 mg PO BID 03/09/20 01/10/21 Unknown History diltiazem HCl 240 mg 240 mg PO DAILY 03/09/20 01/10/21 Unknown History capsule,extended release 24 hr ergocalciferol (vitamin D2) 1,250 1,250 mcg PO QWEEK 03/09/20 01/10/21 Unknown History mcg (50,000 unit) capsule furosemide 40 mg tablet 40 mg PO DAILY 03/09/20 01/10/21 Unknown History gabapentin 300 mg capsule 300 mg PO 03/09/20 01/10/21 Unknown History hydralazine 50 mg tablet 50 mg PO BID 03/09/20 01/10/21 Unknown History hydrochlorothiazide 50 mg tablet 50 mg PO DAILY 03/09/20 01/10/21 Unknown History lisinopril 40 mg tablet 40 mg PO DAILY 03/09/20 01/10/21 Unknown History melatonin 10 mg capsule 10 mg PO BEDTIME 03/09/20 01/10/21 Unknown History metaxalone 800 mg tablet 800 mg PO TID PRN 03/09/20 01/10/21 Unknown History bisacodyl 5 mg tablet,delayed 15 mg PO .2 QHS 1 QNOON tab 11/14/20 01/10/21 Unknown History release roflumilast 250 mcg tablet 1 tab PO QAM 12/14/20 01/10/21 Unknown History (Daliresp) prednisone 20 mg tablet 0 mg PO 01/02/21 01/10/21 Unknown History Exam Airway Mallampati Class: II TM Dist: >3cm Neck ROM: Full Partial: Lower Heart: rrr Lungs: cta Assessment and Plan Assessment Anesthesia Assessment: Anesthesia Plan Discussed and Chart Reviewed Final Anesthetic Review Family History of Problems with Anesthesia: No History of Problems with Anesthesia: No NPO: Yes (Sip water with meds) ASA Class: III Final Preanesthetic Review: No Changes in Pt Med Stat, Meds/Allgs Chart Reviewed and Consent Obtained/Reviewed Patient Risk: Intermediate Procedure Risk: Intermediate Anesthetic Plan Anesthetic Plan: MAC: Disposition: Standard PACU
[2021-01-19 13:06] VITALS: BP 126/92; PULSE 73; RESP 18; TEMP 36.4; O2SAT 94
[2021-01-19] MEDS: Lactated Ringers 1,000 ML 100 ML IVCONT (13:28)
--- NOTE | 2021-01-19 13:34 | P.BOP_ITS ---
Brief Operative Note Date of Service: 01/19/21 Pre-op diagnosis: Colon cancer screening, history of colon polyps Post-op diagnosis: other ( colon polyps, diverticulosis, hemorrhoids) Procedure: COLONOSCOPY TILL CECUM WITH SNARE POLYPECTOMY Consent: Indications for the procedure and potential complications of bleeding, perforation, reaction to medications and missed diagnosis were discussed with the patient and informed consent was obtained. Instrument: Olympus PCF H 190 L variable stiffness pediatric colonoscope Monitoring: Vital signs and clinical assessment, intermittent blood pressure monitoring, continuous EKG monitoring, Pulse oximetry and Carbon Dioxide monitoring were done throughout the procedure. Colon withdrawl time was 23 minutes. Procedure: The patient was placed in the left lateral decubitis position and pre-procedure medications were administered. After a digital rectal examination of the ano-rectum, the video colonoscope was inserted into the rectum and advanced through the colon to the cecum. The colonoscope was slowly withdrawn in a retrograde panoramic fashion and the colon mucosa was carefully examined including a retroflexed view of the rectum. Findings and interventions are described below. Procedure Difficulty: Without difficulty Findings: Terminal Ileum: Not evaluated Cecum: Normal Ascending Colon: Scattered diverticulosis Transverse Colon: A 12-15 mm sessile polyp removed with a hot snare and scattered diverticulosis Descending Colon: moderate diverticulosis Sigmoid Colon: A 12-15 mm sessile polyp removed with a hot snare. Moderate diverticulosis Rectum: Normal Ano-rectum: Moderate internal hemorrhoids and Perianal skin test Colon preparation: Good after copious irrigation Impression and Post Procedure Diagnosis: Colonoscopy Findings: Two medium sized polyps removed Moderate diverticulosis seen in the entire colon Moderate hemorrhoids on retroflexed exam. Plan: Await pathology results Patient has an appointment on 02/12/21 in the GI Clinic with Judith Angulo NP. Repeat Colonoscopy interval based on path results - in 3 years if polyps are adenomatous and 5 years if polyps are hyperplastic due to a hx of adenomatous colon polyps. Above findings were reviewed with the patient and colon polyps and diverticulosis handouts were given in the discharge area Surgeon: Carson León MD Anesthesia: MAC (Dr Peterson & Ida Munoz CRNA) Was an Box Coverer Hand used for this Procedure?: Yes Box Coverer Hand: Abi Walker Estimated blood loss (mL): 0 Pathology: other ( A. ascending colon polyp B. transverse colon polyp C. sigmoid polyp) Condition: stable Disposition: PACU
--- NOTE | 2021-01-19 13:34 | MHC.SHP ---
Pre-Procedural Eval Section A Date of Service: 01/19/21 The patient is an INPATIENT: No Changes since office visit: Yes Patient answered all questions; No Cold of Flu in the past 2 weeks, No New Medical Problems and No Changes in Medication The History & Physical has been completed within 30 days and I have reviewed it.: Yes Section B Chief Complaint: benign neoplasm of colon Allergies: Allergies Allergy/AdvReac Type Severity Reaction Status Date / Time morphine [MORPHINE] Allergy Intermediate NAUSEA, Verified 01/10/21 10:01 rash, redness Plan I have reviewed the history and physical and performed a pertinent physical examination on my patient. No changes have occurred unless specified.
--- NOTE | 2021-01-19 13:40 | P.OP_ITS ---
Operative Note Operative Note Date of Service: 01/19/21 Narrative: Pre-op diagnosis:?? Colon cancer screening, history of colon polyps Post-op diagnosis:?other ( colon polyps, diverticulosis, hemorrhoids) Procedure:? COLONOSCOPY TILL CECUM WITH SNARE POLYPECTOMY Consent: Indications for the procedure and potential complications of bleeding, perforation, reaction to medications and missed diagnosis were discussed with the patient and informed consent was obtained. Instrument: Olympus PCF H 190 L variable stiffness pediatric colonoscope Monitoring: Vital signs and clinical assessment, intermittent blood pressure monitoring, continuous EKG monitoring, Pulse oximetry and Carbon Dioxide monitoring were done throughout the procedure. Colon withdrawl time was 23 minutes. Procedure: The patient was placed in the left lateral decubitis position and pre-procedure medications were administered. After a digital rectal examination of the ano-rectum, the video colonoscope was inserted into the rectum and advanced through the colon to the cecum. The colonoscope was slowly withdrawn in a retrograde panoramic fashion and the colon mucosa was carefully examined including a retroflexed view of the rectum. Findings and interventions are described below. Procedure Difficulty: Without difficulty Findings: Terminal Ileum: Not evaluated Cecum:? Normal Ascending Colon:? Scattered diverticulosis Transverse Colon:? A 12-15 mm sessile polyp? removed with a hot snare and scattered diverticulosis Descending Colon: ? moderate diverticulosis Sigmoid Colon:? A 12-15 mm sessile polyp removed with a hot snare. Moderate diverticulosis Rectum:? Normal Ano-rectum:? Moderate internal hemorrhoids and ? Perianal skin test Colon preparation:? Good? after copious irrigation Impression and Post Procedure Diagnosis: Colonoscopy Findings: Two medium sized polyps removed Moderate diverticulosis seen in the entire colon Moderate hemorrhoids on retroflexed exam. Plan: Await pathology results Patient has an appointment on 02/12/21 in the [facility] with? Judith Angulo NP. Repeat Colonoscopy interval based on path results - in 3 years if polyps are adenomatous and 5 years if polyps are hyperplastic due to a hx of adenomatous colon polyps. Above findings were reviewed with the patient and colon polyps and diverticulosis handouts were given in the discharge area Surgeon:?Carson León MD Anesthesia:?MAC (Dr Peterson & Ida Munoz CRNA) Was an Injection Mold Tooling Technician used for this Procedure?:?Yes Injection Mold Tooling Technician:?Abi Walker Estimated blood loss (mL):?0 Pathology:?other ( A. ascending colon polyp? B. transverse colon polyp? C. sigmoid polyp) Condition:?stable Disposition:?PACU
[2021-01-19 14:35] VITALS: BP 115/70; PULSE 77; RESP 14; TEMP 36.2; O2SAT 97
[2021-01-19 14:50] VITALS: BP 135/73; PULSE 63; RESP 18; TEMP 36.2; O2SAT 99
== END 2021-01-19 15:18 | disposition home or self-care (01) ==
PROVIDERS: PCP Nurse Practitioner Family; Visit Provider Internal Medicine Gastroenterology
PROC: 0DJD8ZZ Inspection of Lower Intestinal Tract, Via Natural or Artificial Opening Endoscopic (ICD-10-PCS; CPT 45378; principal; 2021-01-19 14:10)
DX: Z12.11 Encounter for screening for malignant neoplasm of colon (principal); D12.3 Benign neoplasm of transverse colon; D12.5 Benign neoplasm of sigmoid colon; K57.30 Diverticulosis of large intestine without perforation or abscess without bleeding; K64.8 Other hemorrhoids; I10 Essential (primary) hypertension; Z86.010 Personal history of colon polyps
CPT/HCPCS: 45385; 88305

== ENCOUNTER 2021-01-24 12:36 | Outpatient (REF) | payer MEDICARE, SELFPAY ==
--- NOTE | ~2021-01-24 | XR_ITS ---
EXAMINATION: XR knee LT 2V CLINICAL INFORMATION: Reason for Exam M25.562 - Pain in left knee COMPARISON: None available at the time of this dictation. TECHNIQUE: Frontal and lateral FINDINGS: BONES: No fracture or dislocation is present. JOINTS: Narrowing of joint spaces and developed osteophytes from the edges of articular surfaces suggest degenerative osteoarthritis. SOFT TISSUE: There is a small knee joint effusion. Normal XR/XR knee LT 2V IMPRESSION: Moderate degenerative osteoarthritis medial and lateral compartment and patellofemoral joint. Small knee joint effusion.
== END 2021-01-24 12:37 | disposition home or self-care (01) ==
LOC: HO.HOSX 12:36
PROVIDERS: PCP Nurse Practitioner Family; Visit Provider Physician Assistant
DX: M25.562 Pain in left knee (principal); M25.561 Pain in right knee
CPT/HCPCS: 20610; 73560; 99212; J1040

== ENCOUNTER 2021-02-09 11:54 | Emergency (ER) | payer MEDICARE, SELFPAY ==
[2021-02-09 12:27] VITALS: BP 154/68; PULSE 78; RESP 18; TEMP 36.6; O2SAT 97; BMI 35.0
--- NOTE | 2021-02-09 12:35 | ED.LOWEXIN ---
HPI - Extremity Injury (Lower) General Chief Complaint: Extremity Injury, Lower Stated Complaint: feet, knee, back pain Time Seen by Provider: 02/09/21 12:24 Source: patient Mode of arrival: ambulatory Limitations: no limitations History of Present Illness HPI Narrative: 71 y/o female with history of osteoarthritis in multiple joints, followed by Ortho and Rheum who presents to the ER wtih acute on chronic knee pain for the last 1 month after she fell onto her left knee on 01/17. She was seen by Ortho a few weeks ago, diagnosed with a hematoma, Xrs were done as well as joint injections. She was started on Celebrex with no improvement. She reports the pain is in her entire left leg, starting at the knee and radiating up to her hip and down to her foot into the arch of her foot. She is wearing supportive sneakers. She is taking tylenol with no relief. No new injuries. MD complaint: knee injury Onset (ago): week(s) (3.5) Injury: Bilateral: knee (L>R) Type of Injury: blunt Place: home Severity: severe Severity scale (1-10): 10 Relieving factors: nothing Exacerbating factors: weight bearing, movement and palpation Context: fall Associated symptoms: able to partially bear weight Other symptoms: none Related Data Home Medications Medication Instructions Recorded Confirmed albuterol sulfate 90 mcg/actuation INHALATION 03/09/20 01/10/21 aerosol inhaler aspirin 81 mg chewable tablet 1 tab PO DAILY 03/09/20 01/10/21 carvedilol 3.125 mg tablet 3.125 mg PO BID 03/09/20 01/10/21 diltiazem HCl 240 mg 240 mg PO DAILY 03/09/20 01/10/21 capsule,extended release 24 hr ergocalciferol (vitamin D2) 1,250 1,250 mcg PO QWEEK 03/09/20 01/10/21 mcg (50,000 unit) capsule furosemide 40 mg tablet 40 mg PO DAILY 03/09/20 01/10/21 gabapentin 300 mg capsule 300 mg PO 03/09/20 01/10/21 hydralazine 50 mg tablet 50 mg PO BID 03/09/20 01/10/21 hydrochlorothiazide 50 mg tablet 50 mg PO DAILY 03/09/20 01/10/21 lisinopril 40 mg tablet 40 mg PO DAILY 03/09/20 01/10/21 melatonin 10 mg capsule 10 mg PO BEDTIME 03/09/20 01/10/21 metaxalone 800 mg tablet 800 mg PO TID PRN 03/09/20 01/10/21 roflumilast 250 mcg tablet 1 tab PO QAM 12/14/20 01/10/21 (Daliresp) prednisone 20 mg tablet 0 mg PO 01/02/21 01/10/21 Previous Rx's Medication Instructions Recorded loratadine 10 mg tablet (Claritin) 10 mg PO DAILY 30 Days #30 tab 03/09/20 albuterol sulfate 2.5 mg INHALATION Q4H PRN 30 Days 08/15/20 #360 ml budesonide 0.5 mg/2 mL suspension 0.5 mg INHALATION DAILY #180 ml 08/24/20 for nebulization fluticasone furoate 200 1 inh INHALATION DAILY 30 Days #60 09/18/20 mcg-vilanterol 25 mcg/dose ea inhalation powder (Breo Ellipta) umeclidinium 62.5 mcg/actuation 1 inh PO DAILY 30 Days #30 ea 09/18/20 blister powder for inhalation (Incruse Ellipta) montelukast 10 mg tablet 10 mg PO DAILY 30 Days #30 tab 09/19/20 cyclobenzaprine 10 mg tablet 5 mg PO TID PRN #14 tab 09/27/20 docusate sodium 100 mg capsule 100 mg PO .BID WITH FOOD 30 Days 11/14/20 #60 cap methylcellulose (laxative) 500 mg 1,000 mg PO DAILY 30 Days #60 tab 11/14/20 tablet (Citrucel) prednisone 10 mg tablet 10 mg PO DAILY 14 Days #21 tab 11/23/20 prednisone 10 mg tablet 10 mg PO DAILY 10 Days #15 tab 12/29/20 imipramine HCl 50 mg tablet 100 mg PO BEDTIME 30 Days #60 tab 01/02/21 linaclotide 290 mcg capsule 290 mcg PO QAM #30 cap 01/02/21 (Linzess) xcwhle-[id number]-mroazgl 1 cap PO QIDACHS 30 Days #120 cap 01/02/21 24,000-76,000-120,000 unit capsule,delayed rel (Creon) omeprazole 20 mg capsule,delayed 20 mg PO DAILY #30 cap 01/02/21 release tamsulosin 0.4 mg capsule 0.4 mg PO QAM #30 cap 01/05/21 celecoxib 200 mg capsule (Celebrex) 200 mg PO BID 30 Days #60 cap 02/07/21 tramadol 50 mg tablet 50 mg PO Q8H PRN #7 tab 02/09/21 Allergies Allergy/AdvReac Type Severity Reaction Status Date / Time morphine [MORPHINE] Allergy Intermediate NAUSEA, Verified 01/24/21 12:57 rash, redness Review of Systems Review of Systems: Constitutional: No Fever, No Chills Cardiovascular: No Chest Pain, No SOB Respiratory: No Cough, No Sputum Gastrointestinal: No Nausea, No Vomiting Musculoskeletal: + joint pain, + Myalgias Skin: No Skin Lesions, No rash Neuro: No Weakness, No Numbness Psych: No Anxiety/Panic, + Depression Heme/Lymph: No Bruising, No Lymphadenopathy PMFSH Past Medical History Medical History Asthma-COPD overlap syndrome Back pain Chronic allergic rhinitis (~03/09/20) Depression GERD (gastroesophageal reflux disease) HTN (hypertension) Kidney stones OTILIO (obstructive sleep apnea) Pneumonia Primary osteoarthritis involving multiple joints Pulmonary nodule Rheumatoid arthritis Severe asthma Skin cancer (melanoma) Surgical History History of bronchoscopy History of cystoscopy History of esophagogastroduodenoscopy (EGD) History of laparoscopic appendectomy History of nasal surgery Hx of section Hx of colonoscopy Hx of knee surgery Hx of tubal ligation Family History Family History Father No problems noted. Mother No problems noted. Social History Social History (Updated 01/24/21 @ 12:55 by Ezequiel Serrano) Household Members: Children Housing: Apartment Alcohol intake: never Patient Tobacco Use Status: Never used Tobacco Advance Directives: No Current occupational status: disabled Current occupation: rt handed Physical Exam Vital Signs: Vital Signs: Last Vital Signs Temp 97.9 F 02/09/21 12:27 Pulse 78 02/09/21 12:27 Resp 18 02/09/21 12:27 BP 154/68 H 02/09/21 12:27 Pulse Ox 97 02/09/21 12:27 Body Mass Index 35.0 Appearance: Alert. Oriented X3. No acute distress. HEENT: normal inspection CVS: Normal heart rate and rhythm. Pulses normal. Respiratory: No respiratory distress. Skin: Skin warm and dry. Normal skin color. Normal skin turgor. No rashes. Extremities: normal inspection of the bilateral LE. left knee with mild tenderness throughout, pain with flexion at 90 degrees or so, no joint laxiety appreciated. normal passive ROM of the left hip. nontender. left ankle normal ROM, nontender. arch of left plywood scarfer tender without swelling or skin changes. NV intact distally Neuro: Oriented X 3. No motor deficit. No sensory deficit. ambulates with a slight limp Course Course Course Narrative: 71 y/o female presenting with acute on chronic knee and leg pain. Hx arthritis of multiple joints. Unfortunately she has tried several treatment modalities including joint injections, NSAIDs, tylenol, PT. She has seen both Rheum and Ortho. No need for repeat imaging today given no new injury since last fall 01/17. Will refer to Pain Management for evaluation and provide a short course of tramadol for severe pain. She agrees to follow up with her doctors and pain management, stable for d/c home. Discharge Plan Discharge Clinical Impression: Chronic knee pain Qualifiers: Laterality: left Qualified Code(s): M25.562 - Pain in left knee Patient Disposition: Home, Self-Care Instructions: Rheumatoid Arthritis (ED), Knee Pain (ED) Additional Instructions: Follow up with your doctor Follow up with your Othopedic doctor and Rheumatology doctor Take the prescribed medication as needed for severe pain Continue taking Celebrex and Tylenol Prescriptions: New tramadol 50 mg tablet 50 mg PO Q8H PRN (Reason: pain) Qty: 7 RF: 0 No Action budesonide 0.5 mg/2 mL suspension for nebulization 0.5 mg inhalation DAILY Qty: 180 RF: 3 Breo Ellipta 200-25 mcg/dose blister with device 1 inh inhalation DAILY 30 Days Qty: 60 RF: 11 Incruse Ellipta 62.5 mcg/actuation blister with device 1 inh PO DAILY 30 Days Qty: 30 RF: 11 montelukast 10 mg tablet 10 mg PO DAILY 30 Days Qty: 30 RF: 11 tamsulosin 0.4 mg capsule 0.4 mg PO QAM Qty: 30 RF: 3 celecoxib [Celebrex] 200 mg capsule 200 mg PO BID 30 Days Qty: 60 RF: 3 cyclobenzaprine 10 mg tablet 5 mg PO TID PRN (Reason: muscle spasm) Qty: 14 RF: 0 Daliresp 250 mcg tablet 1 tab PO QAM RF: 0 gabapentin 300 mg capsule 300 mg PO RF: 0 carvedilol 3.125 mg tablet 3.125 mg PO BID RF: 0 furosemide 40 mg tablet 40 mg PO DAILY RF: 0 ergocalciferol (vitamin D2) 1,250 mcg (50,000 unit) capsule 1,250 mcg PO QWEEK RF: 0 hydralazine 50 mg tablet 50 mg PO BID RF: 0 lisinopril 40 mg tablet 40 mg PO DAILY RF: 0 aspirin 81 mg tablet,chewable 1 tab PO DAILY RF: 0 albuterol sulfate 90 mcg/actuation HFA aerosol inhaler inhalation RF: 0 diltiazem HCl 240 mg capsule,extended release 24hr 240 mg PO DAILY RF: 0 hydrochlorothiazide 50 mg tablet 50 mg PO DAILY RF: 0 metaxalone 800 mg tablet 800 mg PO TID PRN (Reason: Muscle Spasm) RF: 0 melatonin 10 mg capsule 10 mg PO BEDTIME RF: 0 loratadine [Claritin] 10 mg tablet 10 mg PO DAILY 30 Days Qty: 30 RF: 11 Citrucel 500 mg tablet 1,000 mg PO DAILY 30 Days Qty: 60 RF: 6 docusate sodium 100 mg capsule 100 mg PO .BID WITH FOOD 30 Days Qty: 60 RF: 6 prednisone 10 mg tablet 10 mg PO DAILY 10 Days Qty: 15 RF: 0 albuterol sulfate 2.5 mg /3 mL (0.083 %) solution for nebulization 2.5 mg inhalation Q4H PRN (Reason: shortness of breath or wheezing) 30 Days Qty: 360 RF: 11 prednisone 10 mg tablet 10 mg PO DAILY 14 Days Qty: 21 RF: 0 prednisone 20 mg tablet 0 mg PO RF: 0 Linzess 290 mcg capsule 290 mcg PO QAM Qty: 30 RF: 6 imipramine HCl 50 mg tablet 100 mg PO BEDTIME 30 Days Qty: 60 RF: 6 Creon 24,000-76,000 -120,000 unit capsule,delayed release(DR/EC) 1 cap PO QIDACHS 30 Days Qty: 120 RF: 6 omeprazole 20 mg capsule,delayed release(DR/EC) 20 mg PO DAILY Qty: 30 RF: 6 Referrals: Paul Haynes PA-C [Physician Relief Charge Nurse] - 2 days Interventions: ED Discharge Assessment Last Done: 02/09/21 12:50 Discharge Date/Time: 02/09/21 12:51 Print Language: Yi
== END 2021-02-09 12:51 | disposition home or self-care (01) ==
PROVIDERS: Emergency Provider Emergency Medicine; PCP Nurse Practitioner Family
DX: M25.562 Pain in left knee (principal); M54.50 Low back pain, unspecified; Z79.899 Other long term (current) drug therapy
CPT/HCPCS: 99283

== ENCOUNTER → 2021-02-12 10:45 | Outpatient (BNVA) | payer MEDICARE, SELFPAY | PROVIDERS: PCP Nurse Practitioner Family; Referring Provider Nurse Practitioner Family; Visit Provider Nurse Practitioner | DX: K21.9 Gastro-esophageal reflux disease without esophagitis (principal); M47.814 Spondylosis without myelopathy or radiculopathy, thoracic region; K59.04 Chronic idiopathic constipation; D12.6 Benign neoplasm of colon, unspecified; R68.81 Early satiety; R10.31 Right lower quadrant pain; R10.32 Left lower quadrant pain | CPT/HCPCS: Q3014 ==

== ENCOUNTER 2021-02-26 17:49 | Outpatient (REF) | payer MEDICARE, SELFPAY ==
--- NOTE | ~2021-02-26 | MR_ITS ---
EXAMINATION: MR LUMBAR SPINE WITHOUT CONTRAST CLINICAL INFORMATION: 71-year-old with right sciatica, disc degeneration. COMPARISON: None TECHNIQUE: MRI of the lumbar spine was obtained using routine sequences without contrast. FINDINGS: Coronal Alignment: Mild mid lumbar levoscoliosis, stable in appearance. Sagittal Alignment: Normal. Lumbosacral Junction: Normal. Vertebral Bodies: Normal height. Disc Spaces and Endplates: [id number]-yv-[id number] intervertebral disc space height loss and disc desiccation at L1-L2, stable in appearance with moderate spondylosis at this level unchanged. Mild degrees of spondylosis at L3-L4 and L5-S1 are unchanged. Disc desiccation at L5-S1 has progressed from previous exam. Spinal Canal: Mildly prominent epidural fat in the lower lumbar canal is unchanged. Bone Marrow: Type II degenerative marrow signal changes seen along the endplates at L5-S1, progressed from previous study with type II marrow signal changes along the endplates at L1-L2, similar to the previous study. Scattered small zones of fatty marrow replacement, similar to previous exam. Minor type I marrow signal changes seen along the anterior endplates at L1-L2, stable in appearance. Conus Medullaris: Terminates at T12-L1. Morphology and signal is normal. Intradural Nerve Roots: Within normal limits. L5-S1: Epidural lipomatosis with a relatively narrowed thecal sac again noted at this level. Mild disc bulging slightly progressed from previous study with a superimposed shallow left subarticular disc protrusion on current exam without definite neural impingement. Mild right-sided and [id number]-cw-ravknj left-sided facet arthropathy, similar to the previous exam. There is mild left-sided neural foraminal narrowing, stable in appearance without neural impingement. L4-L5: Mild epidural lipomatosis at this level as well again noted. Small central disc protrusion with slight indentation of the ventral thecal sac, stable in appearance and minimal annular bulging asymmetric to the right, unchanged in appearance with ligamentum flavum thickening and [id number] bilateral facet arthrosis, stable in appearance. Jirm-nr-kqrlpyhh central spinal canal stenosis is unchanged with no significant neural foraminal stenosis. L3-L4: Mild shallow broad-based left subarticular disc protrusion has developed since previous exam without neural impingement. Ligamentum flavum thickening and moderate facet arthrosis, stable in appearance without significant canal or neural foraminal stenosis. L2-L3: No disc bulge or herniation. Fqtf-zl-yvpnqxvz facet arthropathy noted on current study. No significant canal or neural foraminal stenosis. L1-L2: No disc bulge or herniation and no significant facet arthrosis, canal or neural foraminal stenosis. Paraspinal/Retroperitoneal: The paravertebral soft tissues appear unremarkable. MR/MR lumbar spine wo con IMPRESSION: 1. Multilevel bilateral facet arthrosis and ligamentum flavum thickening, most of which is stable from previous exam, with lower lumbar epidural lipomatosis with a developmentally small spinal canal at the L4 and L5 levels, stable in appearance. Multilevel mild disc bulging, with mild left subarticular disc protrusions at L5-S1, small central disc protrusion at L4-L5 and mild left subarticular disc protrusion L3-L4 since the previous study. 2. Jlys-cc-ubfqnejh spinal canal stenosis at L4-L5 is stable. No new spinal stenosis. 3. Multilevel discogenic degenerative changes and spondylosis mostly similar from the previous study.
== END 2021-02-26 17:50 | disposition home or self-care (01) ==
LOC: HO.MRI 17:49
PROVIDERS: Visit Provider Emergency Medicine
DX: M51.36 Other intervertebral disc degeneration, lumbar region (principal); M54.41 Lumbago with sciatica, right side
CPT/HCPCS: 72148

== ENCOUNTER → 2021-02-27 09:53 | Outpatient (BNVA) | payer MEDICARE, SELFPAY | PROVIDERS: PCP Nurse Practitioner Family; Visit Provider Hospitalist | DX: J45.50 Severe persistent asthma, uncomplicated (principal); J44.9 Chronic obstructive pulmonary disease, unspecified; J40 Bronchitis, not specified as acute or chronic; G47.33 Obstructive sleep apnea (adult) (pediatric); K21.9 Gastro-esophageal reflux disease without esophagitis; R91.1 Solitary pulmonary nodule | CPT/HCPCS: 99212 ==

== ENCOUNTER → 2021-03-19 13:45 | Outpatient (BNVA) | payer MEDICARE, SELFPAY | PROVIDERS: PCP Nurse Practitioner Family; Visit Provider Anesthesiology | DX: M51.36 Other intervertebral disc degeneration, lumbar region (principal); M46.1 Sacroiliitis, not elsewhere classified; M53.3 Sacrococcygeal disorders, not elsewhere classified; M47.816 Spondylosis without myelopathy or radiculopathy, lumbar region; G89.4 Chronic pain syndrome | CPT/HCPCS: 99202 ==

== ENCOUNTER → 2021-03-22 12:15 | Outpatient (BNVA) | payer MEDICARE, SELFPAY | PROVIDERS: PCP Family Medicine; Visit Provider Nurse Practitioner Family | DX: M89.49 Other hypertrophic osteoarthropathy, multiple sites (principal) | CPT/HCPCS: 99212 ==

== ENCOUNTER 2021-03-28 11:00 | Emergency (ER) | payer MEDICARE, SELFPAY ==
--- NOTE | ~2021-03-28 | XR_ITS ---
EXAMINATION: XR CHEST CLINICAL INFORMATION: SOB and cough. COMPARISON: Chest 12/25/2020 TECHNIQUE: Frontal view of the chest was obtained. FINDINGS: The lungs are well-expanded and clear. Heart size and pulmonary vascularity is normal. No gross bony abnormality seen. XR/XR chest 1V IMPRESSION: Unremarkable chest exam.
[2021-03-28 11:06] VITALS: BP 170/86; PULSE 96; RESP 20; TEMP 36.7; O2SAT 95; BMI 29.7
--- NOTE | 2021-03-28 11:15 | PC.NURSE ---
patient states she has a hx of COPD, and emphysema. Hx of asthma. States 4 days ago she had the flu shot and since then has had a lot of coughing, SOB. Denies fevers. Attempted to take inhaler at home with no relief. States she is vaccinated for COVID.
[2021-03-28 11:16] VITALS: BP 172/81; PULSE 100; RESP 18; TEMP 37.2; O2SAT 93
--- NOTE | 2021-03-28 11:19 | ECG_ITS ---
Test Reason : dyspnea Blood Pressure : / mmHG Vent. Rate : 092 BPM Atrial Rate : 092 BPM P-R Int : 134 ms QRS Dur : 130 ms QT Int : 394 ms P-R-T Axes : 075 -05 028 degrees QTc Int : 487 ms Normal sinus rhythm Right bundle branch block Abnormal ECG When compared with ECG of 17-JUN-2019 14:22, No significant change was found Referred By: Wilton Toscano Electronically Signed By:HERRERA ZAMUDIO MD
--- NOTE | 2021-03-28 11:25 | ED_ITS ---
HPI - SOB/Dyspnea General Chief Complaint: Dyspnea Stated Complaint: diff breathing, cough Time Seen by Provider: 03/28/21 11:19 Source: patient Limitations: no limitations and language barrier (Hospital transition lead used) History of Present Illness HPI Narrative: This is a 69-year-old female with a history of asthma/COPD, who had a flu shot 4 days ago and then developed worsening cough and wheezing. Patient has not had fever, though she felt warm yesterday. Her cough has been dry. She has tried her nebulizer treatments as well as inhalers. She is not sure if she is on a steroid inhaler. She is not currently on prednisone, finished a course about 2 weeks ago. She denies any swelling in her legs. She denies any chest pain. She has vomited a few times. She denies any diarrhea. She has some chronic back pain Related Data Home Medications Medication Instructions Recorded Confirmed albuterol sulfate 90 mcg/actuation INHALATION 03/09/20 03/22/21 aerosol inhaler aspirin 81 mg chewable tablet 1 tab PO DAILY 03/09/20 03/22/21 carvedilol 3.125 mg tablet 3.125 mg PO BID 03/09/20 03/22/21 diltiazem HCl 240 mg 240 mg PO DAILY 03/09/20 03/22/21 capsule,extended release 24 hr ergocalciferol (vitamin D2) 1,250 1,250 mcg PO QWEEK 03/09/20 03/22/21 mcg (50,000 unit) capsule furosemide 40 mg tablet 40 mg PO DAILY 03/09/20 03/22/21 gabapentin 300 mg capsule 300 mg PO 03/09/20 03/22/21 hydralazine 50 mg tablet 50 mg PO BID 03/09/20 03/22/21 hydrochlorothiazide 50 mg tablet 50 mg PO DAILY 03/09/20 03/22/21 lisinopril 40 mg tablet 40 mg PO DAILY 03/09/20 03/22/21 roflumilast 250 mcg tablet 1 tab PO QAM 12/14/20 03/22/21 (Daliresp) amitriptyline 100 mg tablet 100 mg PO BEDTIME 02/27/21 03/22/21 folic acid 1 mg tablet 1 mg PO DAILY 02/27/21 03/22/21 azithromycin 250 mg tablet 250 mg PO 3XW tab 03/22/21 03/22/21 Previous Rx's Medication Instructions Recorded loratadine 10 mg tablet (Claritin) 10 mg PO DAILY 30 Days #30 tab 03/09/20 albuterol sulfate 2.5 mg INHALATION Q4H PRN 30 Days 08/15/20 #360 ml budesonide 0.5 mg/2 mL suspension 0.5 mg INHALATION DAILY #180 ml 08/24/20 for nebulization fluticasone furoate 200 1 inh INHALATION DAILY 30 Days #60 09/18/20 mcg-vilanterol 25 mcg/dose ea inhalation powder (Breo Ellipta) umeclidinium 62.5 mcg/actuation 1 inh PO DAILY 30 Days #30 ea 09/18/20 blister powder for inhalation (Incruse Ellipta) montelukast 10 mg tablet 10 mg PO DAILY 30 Days #30 tab 09/19/20 cyclobenzaprine 10 mg tablet 5 mg PO TID PRN #14 tab 09/27/20 docusate sodium 100 mg capsule 100 mg PO .BID WITH FOOD 30 Days 11/14/20 #60 cap imipramine HCl 50 mg tablet 100 mg PO BEDTIME 30 Days #60 tab 01/02/21 linaclotide 290 mcg capsule 290 mcg PO QAM #30 cap 01/02/21 (Linzess) toxpyz-[id number]-ncewznk 1 cap PO QIDACHS 30 Days #120 cap 01/02/21 24,000-76,000-120,000 unit capsule,delayed rel (Creon) omeprazole 20 mg capsule,delayed 20 mg PO DAILY #30 cap 01/02/21 release tamsulosin 0.4 mg capsule 0.4 mg PO QAM #30 cap 01/05/21 celecoxib 200 mg capsule (Celebrex) 200 mg PO BID 30 Days #60 cap 02/07/21 tramadol 50 mg tablet 50 mg PO Q8H PRN #7 tab 02/09/21 roflumilast 500 mcg tablet 500 mcg PO DAILY 30 Days #30 tab 02/27/21 (Daliresp) albuterol sulfate 2.5 mg/0.5 mL 2.5 mg INHALATION Q4-6H #30 ea 03/28/21 solution for nebulization albuterol sulfate 90 mcg/actuation 2 puff INHALATION Q4-6H PRN #8.5 g 03/28/21 aerosol inhaler prednisone 10 mg tablets in a dose 10 mg PO PER PKG DIR #21 ea 03/28/21 pack Allergies Allergy/AdvReac Type Severity Reaction Status Date / Time morphine [MORPHINE] Allergy Intermediate NAUSEA, Verified 03/22/21 12:34 rash, redness Review of Systems Review of Systems: Yes all other systems are reviewed and are negative Constitutional: Constitutional: Reports as per HPI and Denies fever(s) Eyes: Eyes: Reports as per HPI ENT: Reports nasal congestion Cardiovascular: Cardiovascular: Reports no additional cardiovascular complaints and Reports dyspnea Respiratory: Respiratory: Reports cough and Reports dyspnea Gastrointestinal: Gastrointestinal: Reports vomiting Integumentary/Breasts: Skin/Breast: Reports other (No peripheral edema) Neurologic: Denies Sensory deficit (Neuro) [facility] Past Medical History Medical History Asthma-COPD overlap syndrome Back pain Chronic allergic rhinitis (~03/09/20) Chronic pain syndrome Depression Disc degeneration, lumbar GERD (gastroesophageal reflux disease) HTN (hypertension) Kidney stones OTILIO (obstructive sleep apnea) OTILIO (obstructive sleep apnea) Pneumonia Primary osteoarthritis involving multiple joints Pulmonary nodule Rheumatoid arthritis Sacroiliac joint dysfunction of right side Sacroiliitis Severe asthma Skin cancer (melanoma) Spondylosis of lumbar spine Surgical History History of bronchoscopy History of cystoscopy History of esophagogastroduodenoscopy (EGD) History of laparoscopic appendectomy History of nasal surgery Hx of section Hx of colonoscopy Hx of knee surgery Hx of tubal ligation Family History Family History Father No problems noted. Mother No problems noted. Social History Social History Household Members: Children Housing: Apartment Alcohol intake: never Patient Tobacco Use Status: Never used Tobacco Advance Directives: No Advance Directives Information Provided: No Current occupational status: disabled Current occupation: rt handed Physical Exam Vital Signs: Vital Signs: Last Vital Signs Temp 98.9 F 03/28/21 11:16 Pulse 112 H 03/28/21 11:36 Resp 18 03/28/21 11:16 BP 172/81 H 03/28/21 11:16 Pulse Ox 93 03/28/21 11:16 Body Mass Index 29.7 Const: General: cooperative, no acute distress and alert Orientation/consciousness: patient oriented x3 HENMT: Head: Yes normal to inspection Eyes: General: appearance normal, both eyes and all related structures Eyelids: Yes eyelids normal Conjunctivae: conjunctivae normal Pupils: Equal, round and reactive pupils present Neck: Neck: Yes normal visual inspection and Yes supple Chest: Chest palpation & inspection: normal inspection of the chest Resp: Effort & Inspection: normal respiratory effort and Actively coughing Auscultation: wheezes expiratory wheezes and diminished lung sounds (Mildly) Cardio: Rate: regular rate Rhythm: regular rhythm Heart sounds: S1 normal heart sound present, S2 normal heart sound present, no gallops, no murmurs and no rubs GI: Palpation (GI): Soft to palpation, nontender and Other GI palpation findings present (Non-distended) Auscultation: normal bowel sounds Skin: General skin exam: no rashes or lesions noted Neuro: General: patient oriented x3, no focal motor deficits and CN's II-XI intact bilaterally Cranial nerves: Yes Equal, round and reactive pupils present Cognition (Neuro): normal cognition Motor exam (neuro): 5/5 motor strength present throughout Sensory Exam: No Sensory deficit (Neuro) Extrem: General: Yes normal to inspection and Yes no pedal edema Psych: Appearance: grossly normal Affect: normal affect MDM - SOB/Dyspnea MDM Narrative Medical decision making narrative: Upon re-evaluation at 12:40, the patient is feeling somewhat better. Her pulse oximetry is 96% on room air. She still has a hacking dry cough. Patient's chest x-ray is negative. EKG is unremarkable. COVID test is negative. Will send the patient home on prednisone in a tapering dose. Patient is also being given refills of her albuterol for her nebulizer, as well as her inhaler. She can follow up with primary care physician. Given the URI symptoms, lack of fever, negative chest x-ray, cough productive of clear phlegm, antibiotics not indicated Lab Data Attestation: I reviewed the patient's lab results. Labs: Lab Results 03/28/21 Range/Units 11:35 COVID-19 ([facility]) Negative (Negative) COVID-19 Clin Com See Note Imaging Data Chest x-ray: Radiologist's impression: FINDINGS: The lungs are well-expanded and clear. Heart size and pulmonary vascularity is normal. No gross bony abnormality seen. XR/XR chest 1V IMPRESSION: Unremarkable chest exam. ECG Data Attestation: I personally reviewed and interpreted this ECG as follows: ECG interpretation date: 03/28/21 ECG interpretation time: 11:45 Interpretation: Sinus rhythm with a rate of 92. Right bundle branch block. No ischemic changes. Q-waves in lead 3. Baseline artifact especially in the limb leads. Discharge Plan Discharge Clinical Impression: Asthma-COPD overlap syndrome Patient Disposition: Home, Self-Care Instructions: COPD (Chronic Obstructive Pulmonary Disease) (ED) Additional Instructions: Continue using her nebulizer every 4-6 hours as needed. Use her rescue inhaler if you do not have access to your nebulizer, or for worse dyspnea between nebulizer treatments. Start the prednisone as prescribed. Follow up with her primary care physician. Return for any new or worsened symptoms such as fever, or shortness of breath Prescriptions: New prednisone 10 mg tablets,dose pack 10 mg PO PER PKG DIR Qty: 21 RF: 0 albuterol sulfate 90 mcg/actuation HFA aerosol inhaler 2 puff inhalation Q4-6H PRN (Reason: shortness of breath or wheezing) Qty: 8.5 RF: 0 albuterol sulfate 2.5 mg/0.5 mL solution for nebulization 2.5 mg inhalation Q4-6H Qty: 30 RF: 0 No Action budesonide 0.5 mg/2 mL suspension for nebulization 0.5 mg inhalation DAILY Qty: 180 RF: 3 Breo Ellipta 200-25 mcg/dose blister with device 1 inh inhalation DAILY 30 Days Qty: 60 RF: 11 Incruse Ellipta 62.5 mcg/actuation blister with device 1 inh PO DAILY 30 Days Qty: 30 RF: 11 montelukast 10 mg tablet 10 mg PO DAILY 30 Days Qty: 30 RF: 11 tamsulosin 0.4 mg capsule 0.4 mg PO QAM Qty: 30 RF: 3 celecoxib [Celebrex] 200 mg capsule 200 mg PO BID 30 Days Qty: 60 RF: 3 cyclobenzaprine 10 mg tablet 5 mg PO TID PRN (Reason: muscle spasm) Qty: 14 RF: 0 Daliresp 250 mcg tablet 1 tab PO QAM RF: 0 tramadol 50 mg tablet 50 mg PO Q8H PRN (Reason: pain) Qty: 7 RF: 0 gabapentin 300 mg capsule 300 mg PO RF: 0 carvedilol 3.125 mg tablet 3.125 mg PO BID RF: 0 furosemide 40 mg tablet 40 mg PO DAILY RF: 0 ergocalciferol (vitamin D2) 1,250 mcg (50,000 unit) capsule 1,250 mcg PO QWEEK RF: 0 hydralazine 50 mg tablet 50 mg PO BID RF: 0 lisinopril 40 mg tablet 40 mg PO DAILY RF: 0 aspirin 81 mg tablet,chewable 1 tab PO DAILY RF: 0 albuterol sulfate 90 mcg/actuation HFA aerosol inhaler inhalation RF: 0 diltiazem HCl 240 mg capsule,extended release 24hr 240 mg PO DAILY RF: 0 hydrochlorothiazide 50 mg tablet 50 mg PO DAILY RF: 0 loratadine [Claritin] 10 mg tablet 10 mg PO DAILY 30 Days Qty: 30 RF: 11 docusate sodium 100 mg capsule 100 mg PO .BID WITH FOOD 30 Days Qty: 60 RF: 6 albuterol sulfate 2.5 mg /3 mL (0.083 %) solution for nebulization 2.5 mg inhalation Q4H PRN (Reason: shortness of breath or wheezing) 30 Days Qty: 360 RF: 11 azithromycin 250 mg tablet 250 mg PO 3XW RF: 0 Linzess 290 mcg capsule 290 mcg PO QAM Qty: 30 RF: 6 imipramine HCl 50 mg tablet 100 mg PO BEDTIME 30 Days Qty: 60 RF: 6 Creon 24,000-76,000 -120,000 unit capsule,delayed release(DR/EC) 1 cap PO QIDACHS 30 Days Qty: 120 RF: 6 omeprazole 20 mg capsule,delayed release(DR/EC) 20 mg PO DAILY Qty: 30 RF: 6 amitriptyline 100 mg tablet 100 mg PO BEDTIME RF: 0 folic acid 1 mg tablet 1 mg PO DAILY RF: 0 Daliresp 500 mcg tablet 500 mcg PO DAILY 30 Days Qty: 30 RF: 11 Discharge Date/Time: 03/28/21 13:27
[2021-03-28] MEDS: guaiFENesin DM 100/10/5 ML 5 ML SYRUP 10 ML PO (11:32)
[2021-03-28] MEDS: predniSONE 20 MG TABLET 40 MG PO (11:32)
[2021-03-28] MEDS: Albuterol/Iprat 2.5/0.5MG 3 ML AMPUL.NEB INHALE (11:34)
[2021-03-28] MEDS: Albuterol Sulfate (0.083%) 2.5 MG/3 ML VIAL.NEB 5 MG INHALE (11:34)
[2021-03-28 11:36] VITALS: PULSE 112; O2SAT 99
[2021-03-28 12:01] LABS: COVID-19 Test Negative (Negative)
[2021-03-28] MEDS: Acetaminophen 325 MG TABLET 650 MG PO (13:05)
== END 2021-03-28 13:27 | disposition home or self-care (01) ==
PROVIDERS: Emergency Provider Emergency Medicine; PCP Family Medicine
DX: J44.9 Chronic obstructive pulmonary disease, unspecified (principal); I10 Essential (primary) hypertension; Z79.899 Other long term (current) drug therapy; Z20.822 Contact with and (suspected) exposure to COVID-19
CPT/HCPCS: 36415; 71045; 87635; 93005; 94640; 94644; 99284

== ENCOUNTER → 2021-04-04 08:53 | Outpatient (REF) | payer MEDICARE, SELFPAY | LOC: HO.SL 08:53 | PROVIDERS: PCP Nurse Practitioner Family; Visit Provider Hospitalist | DX: G47.33 Obstructive sleep apnea (adult) (pediatric) (principal) | CPT/HCPCS: 95806 ==

== ENCOUNTER → 2021-04-11 15:53 | Outpatient (BNVA) | payer MEDICARE, SELFPAY | PROVIDERS: PCP Nurse Practitioner Family; Visit Provider Anesthesiology | DX: M51.36 Other intervertebral disc degeneration, lumbar region (principal); M46.1 Sacroiliitis, not elsewhere classified; M53.3 Sacrococcygeal disorders, not elsewhere classified; M47.816 Spondylosis without myelopathy or radiculopathy, lumbar region; G89.4 Chronic pain syndrome | CPT/HCPCS: 99212 ==

== ENCOUNTER → 2021-07-31 14:14 | Outpatient (BNVA) | payer MEDICARE, SELFPAY | PROVIDERS: PCP Nurse Practitioner Family; Visit Provider Hospitalist | DX: J45.50 Severe persistent asthma, uncomplicated (principal); J44.9 Chronic obstructive pulmonary disease, unspecified; R91.1 Solitary pulmonary nodule; G47.33 Obstructive sleep apnea (adult) (pediatric); K21.9 Gastro-esophageal reflux disease without esophagitis | CPT/HCPCS: 99212 ==

== ENCOUNTER → 2021-08-03 13:26 | Outpatient (BNVA) | payer MEDICARE, SELFPAY | PROVIDERS: PCP Nurse Practitioner Family; Referring Provider Nurse Practitioner Family; Visit Provider Nurse Practitioner | DX: Z13.89 Encounter for screening for other disorder (principal) ==

== ENCOUNTER 2021-08-16 14:19 | Outpatient (REF) | payer MEDICARE, SELFPAY ==
--- NOTE | ~2021-08-16 | MR_ITS ---
MRI OF THE BRAIN WITHOUT IV CONTRAST INDICATION: History of CVA. Intermittent dizziness with vision loss. COMPARISON: MRI brain October 01, 2019. TECHNIQUE: Multiplanar multisequence MR imaging of the brain was obtained without IV contrast. FINDINGS: There is no hydrocephalus, extra-axial surface collection, or herniation. Mild chronic microangiopathy. The major flow voids at the skull base are preserved. There is no acute infarct on diffusion-weighted imaging. There is no intracranial hemorrhage on the gradient recalled echo acquisition. The midline structures are normal. The cerebellar tonsils are normally positioned. The cerebellum and brainstem are normal. The craniocervical junction is normal. Osseous marrow signal intensity is homogenous. The visualized soft tissues are unremarkable. MR/MR head/brain wo con IMPRESSION: - No acute intracranial findings. No acute infarcts. - There is mild chronic microangiopathy.
== END 2021-08-16 14:20 | disposition home or self-care (01) ==
LOC: HO.MRI 14:19
PROVIDERS: PCP Nurse Practitioner Family; Visit Provider Nurse Practitioner Family
DX: H54.7 Unspecified visual loss (principal)
CPT/HCPCS: 70551

== ENCOUNTER → 2021-08-31 07:40 | Outpatient (REF) | payer MEDICARE, SELFPAY ==
--- NOTE | ~2021-08-31 | NM_ITS ---
EXAMINATION: NM RADIONUCLIDE SOLID FOOD GASTRIC EMPTYING 4-HOUR STUDY CLINICAL INFORMATION: Early satiety, constipation. Vomiting, nausea and bloated feeling. COMPARISON: None. TECHNIQUE: A standard meal consisting of 4 oz of Egg Beaters brand tagged with 909 microcuries Tc-99m Sulfur Colloid, 8 oz water and 2 slices of toast with jelly was administered orally to the patient. Images were obtained using a dual head gamma camera in the anterior and posterior projections over of the stomach immediately post ingestion and at hourly intervals up to 4 hours post ingestion. The anterior and posterior counts at each time interval were averaged using the geometric mean and expressed as percentage of the immediate post ingestion counts. FINDINGS: There is good visualization of activity in the stomach immediately post ingestion. As the study progresses, there is good clearance of activity from the stomach and visualization of progressively increasing small bowel activity. By the end of the study, there is almost no retention noted in the stomach. Retention in the stomach at each time interval was: 1 hour 58% (normal 37%-90%) 2 hours 18% (normal 30%-60%) 3 hours 6% 4 hours 0% (normal 0%-10%) NM/NM gastric emptying study IMPRESSION: Normal 4-hour solid food gastric emptying study.
== END ==
LOC: HO.NUCMED 07:40
PROVIDERS: PCP Nurse Practitioner Family; Visit Provider Nurse Practitioner
DX: R68.81 Early satiety (principal)
CPT/HCPCS: 78264; A9541

== ENCOUNTER 2021-09-04 11:20 | Outpatient (REF) | payer MEDICARE, SELFPAY ==
--- NOTE | ~2021-09-04 | MM_ITS ---
EXAMINATION: MM SCREENING DIGITAL BREAST TOMOSYNTHESIS, BILATERAL CLINICAL INFORMATION: Screening. Asymptomatic. The lifetime risk of breast cancer based on the Tyrer-Cuzick Model is 6%. COMPARISON: Mammography: 04/11/2020, 02/02/2019, 01/22/2018. TECHNIQUE: Digital breast tomosynthesis is performed in both the craniocaudal and mediolateral oblique views along with computer-aided detection (CAD). Synthesized 2D images are generated from the tomosynthesis. FINDINGS: There are scattered areas of fibroglandular density (ACR BI-RADS breast composition Category b). Breast tissue composition borders on predominantly fatty. Background stromal markings are stable. There is no interval mass or architectural abnormality or abnormal calcifications. The axilla are unremarkable. There is chronic bilateral mild nipple retraction similar to prior exams. MM/MM tomosynthesis screening BI IMPRESSION: No significant changes from prior exams. ASSESSMENT: BI-RADS 2: Benign RECOMMENDATION: Routine annual mammography screening. This patient's information was entered into a reminder system with a target due date for their next mammogram.
== END 2021-09-04 11:21 | disposition home or self-care (01) ==
LOC: HO.MAMMO 11:20
PROVIDERS: Visit Provider Nurse Practitioner Family
DX: Z12.31 Encounter for screening mammogram for malignant neoplasm of breast (principal)
CPT/HCPCS: 77063; 77067

== ENCOUNTER 2021-09-07 13:43 | Outpatient (REF) | payer MEDICARE, SELFPAY ==
--- NOTE | ~2021-09-07 | US_ITS ---
EXAMINATION: US ABDOMEN LIMITED CLINICAL INFORMATION: Periumbilical abdominal wall lumps. Please evaluate for hernia. COMPARISON: Ultrasound abdomen complete 10/25/2020 and 11/28/2015. CT abdomen and pelvis 09/27/2020. X-ray abdomen 08/24/2020. X-ray KUB 01/17/2017. TECHNIQUE: Real-time imaging of the periumbilical and left lower quadrant area FINDINGS: No hernia is appreciated by ultrasound. No solid or cystic soft tissue mass or fluid collection is seen. US/US abdomen limited IMPRESSION: No abnormality seen by ultrasound.
== END 2021-09-07 13:44 | disposition home or self-care (01) ==
LOC: HO.US 13:43
PROVIDERS: Visit Provider Nurse Practitioner Family
DX: R22.2 Localized swelling, mass and lump, trunk (principal)
CPT/HCPCS: 76705

== ENCOUNTER → 2021-09-13 08:16 | Outpatient (BNVA) | payer MEDICARE, SELFPAY | PROVIDERS: PCP Nurse Practitioner Family; Referring Provider Nurse Practitioner Family; Visit Provider Nurse Practitioner | DX: K21.9 Gastro-esophageal reflux disease without esophagitis (principal); K59.04 Chronic idiopathic constipation | CPT/HCPCS: 99212 ==

== ENCOUNTER → 2021-10-15 10:27 | Outpatient (BNVA) | payer MEDICARE, SELFPAY | PROVIDERS: PCP Nurse Practitioner Family; Visit Provider Hospitalist | DX: G47.33 Obstructive sleep apnea (adult) (pediatric) (principal); J45.50 Severe persistent asthma, uncomplicated; J44.9 Chronic obstructive pulmonary disease, unspecified; K21.9 Gastro-esophageal reflux disease without esophagitis; R91.1 Solitary pulmonary nodule | CPT/HCPCS: 99212 ==

== ENCOUNTER → 2021-10-29 10:58 | Outpatient (BNVA) | payer MEDICARE, SELFPAY | PROVIDERS: PCP Nurse Practitioner Family; Visit Provider Orthopaedic Surgery | DX: M17.12 Unilateral primary osteoarthritis, left knee (principal) | CPT/HCPCS: 99212 ==

== ENCOUNTER → 2021-11-08 08:08 | Outpatient (BNVA) | payer MEDICARE, SELFPAY | PROVIDERS: PCP Nurse Practitioner Family; Visit Provider Nurse Practitioner | DX: K21.9 Gastro-esophageal reflux disease without esophagitis (principal); K59.04 Chronic idiopathic constipation | CPT/HCPCS: 99212 ==

== ENCOUNTER → 2021-11-19 09:36 | Outpatient (BNVA) | payer MEDICARE, SELFPAY | PROVIDERS: PCP Family Medicine; Visit Provider Nurse Practitioner Family | DX: M89.49 Other hypertrophic osteoarthropathy, multiple sites (principal); M17.12 Unilateral primary osteoarthritis, left knee; M47.816 Spondylosis without myelopathy or radiculopathy, lumbar region | CPT/HCPCS: 99212 ==

== ENCOUNTER 2021-11-20 11:25 | Outpatient (REF) | payer MEDICARE, SELFPAY ==
[2021-11-20 13:51] LABS: MANUAL DIFF FLAG NO
[2021-11-20 14:03] LABS: Basophils Absolute Auto 0.1 X10*3/uL (0.0-0.2); Basophils Percent Auto 0.8 % (0-2); Eosinophils Absolute Auto 0.2 X10*3/uL (0.0-0.4); Eosinophils Percent Auto 3.9 % (0-4); Hematocrit 41.9 % (37.0-47.0); Hemoglobin 13.4 g/dl (12.0-16.0); Imm Gran Abs Auto 0.03 X10*3/uL (0.00-0.03); Imm Gran Pct Auto 0.5 % (0.0-0.4); Lymphocytes Absolute Auto 1.5 X10*3/uL (1.2-4.9); Lymphocytes Percent Auto 24.1 % (20-40); Mean Corpuscular Hemoglobin 29.5 pg (27.0-33.0); Mean Corpuscular Volume 92.3 fL (80.0-98.0); Mean Platelet Volume 11.3 fL (9.4-12.3); Monocytes Absolute Auto 0.5 X10*3/uL (0.1-1.2); Monocytes Percent Auto 8.8 % (2-11); Neutrophils Absolute Auto 3.8 x10*3/uL (2.0-8.3); Neutrophils Percent Auto 61.9 % (45-73); Platelet Count 282 X10*3/uL (160-400); Red Blood Count 4.54 X10*6/uL (4.20-5.50); Red Cell Distribution Width 12.7 % (11.0-16.0); White Blood Count 6.1 X10*3/uL (4.8-10.8)
[2021-11-20 14:16] LABS: Estimated Glomerular Filt Rate > 60
== END 2021-11-20 11:26 | disposition home or self-care (01) ==
LOC: HO.10HDL 11:25
PROVIDERS: Visit Provider Nurse Practitioner Family
DX: Z79.899 Other long term (current) drug therapy (principal)
CPT/HCPCS: 36415; 82565; 85025

== ENCOUNTER → 2021-11-29 14:00 | Outpatient (BNVA) | payer MEDICARE, SELFPAY | PROVIDERS: PCP Nurse Practitioner Family; Visit Provider Hospitalist | DX: J44.9 Chronic obstructive pulmonary disease, unspecified (principal); J45.50 Severe persistent asthma, uncomplicated; R91.1 Solitary pulmonary nodule; G47.33 Obstructive sleep apnea (adult) (pediatric); K21.9 Gastro-esophageal reflux disease without esophagitis | CPT/HCPCS: 99212 ==

== ENCOUNTER 2022-03-04 21:38 | Emergency (ER) | payer OTHER, SELFPAY ==
--- NOTE | ~2022-03-04 | XR_ITS ---
EXAMINATION: XR CHEST CLINICAL INFORMATION: Cough and fever COMPARISON: 03/28/2021 TECHNIQUE: Frontal view of the chest was obtained. FINDINGS: Cardiac leads overlie the chest. Blunting at the left costophrenic angle with streaky left basilar opacities. No edema. No pneumothorax. The cardiomediastinal silhouette is normal in size, with a calcified aorta. XR/XR chest 1V IMPRESSION: Blunting of the left costophrenic angle with streaky left basilar opacities. This may represent a small left pleural effusion with atelectasis or pneumonia.
[2022-03-04 21:58] VITALS: BP 144/76; BP 154/90; PULSE 88; PULSE 92; RESP 18; TEMP 37.4; O2SAT 98; BMI 31.6
--- NOTE | 2022-03-04 21:59 | ED.SOB ---
HPI - SOB/Dyspnea General Chief Complaint: Upper Respiratory Symptoms Stated Complaint: sob Time Seen by Provider: 03/04/22 21:59 Source: patient and family Mode of arrival: ambulatory Limitations: no limitations History of Present Illness HPI Narrative: Patient is 69 years old history of asthma been having fever body aches shortness of breath cough since yesterday patient been vaccinated against COVID fully. Did home testing for COVID which was negative patient also complaining of left lower abdominal pain after coughing having nausea and vomiting no diarrhea never had similar pain in the past Related Data Home Medications Medication Instructions Recorded Confirmed albuterol sulfate 90 mcg/actuation inhalation 03/09/20 03/22/21 aerosol inhaler aspirin 81 mg chewable tablet 1 tab PO DAILY 03/09/20 03/22/21 carvedilol 3.125 mg tablet 3.125 mg PO BID 03/09/20 03/22/21 diltiazem HCl 240 mg 240 mg PO DAILY 03/09/20 03/22/21 capsule,extended release 24 hr ergocalciferol (vitamin D2) 1,250 1,250 mcg PO QWEEK 03/09/20 03/22/21 mcg (50,000 unit) capsule furosemide 40 mg tablet 40 mg PO DAILY 03/09/20 03/22/21 gabapentin 300 mg capsule 300 mg PO 03/09/20 03/22/21 hydralazine 50 mg tablet 50 mg PO BID 03/09/20 03/22/21 hydrochlorothiazide 50 mg tablet 50 mg PO DAILY 03/09/20 03/22/21 lisinopril 40 mg tablet 40 mg PO DAILY 03/09/20 03/22/21 amitriptyline 100 mg tablet 100 mg PO BEDTIME 02/27/21 03/22/21 folic acid 1 mg tablet 1 mg PO DAILY 02/27/21 03/22/21 Previous Rx's Medication Instructions Recorded loratadine 10 mg tablet (Claritin) 10 mg PO DAILY 30 days #30 tabs 03/09/20 budesonide 0.5 mg/2 mL suspension 0.5 mg (2 mL) inhalation DAILY 08/24/20 for nebulization #180 mL cyclobenzaprine 10 mg tablet 5 mg PO TID PRN muscle spasm #14 09/27/20 tabs docusate sodium 100 mg capsule 100 mg PO .BID WITH FOOD 30 days 11/14/20 #60 caps celecoxib 200 mg capsule (Celebrex) 200 mg PO BID 30 days #60 caps 02/07/21 albuterol sulfate 90 mcg/actuation 2 puff inhalation Q4-6H PRN 03/28/21 aerosol inhaler shortness of breath or wheezing #8.5 grams oxycodone-acetaminophen 5 mg-325 1 tab PO BID PRN pain 30 days #60 04/11/21 mg tablet (Percocet) tabs albuterol sulfate 2.5 mg/3 mL 2.5 mg (3 mL) inhalation Q4H PRN 05/30/21 (0.083 %) solution for nebulization shortness of breath or wheezing 30 days #360 mL montelukast 10 mg tablet 10 mg PO DAILY 30 days #30 tabs 05/30/21 roflumilast 500 mcg tablet 500 mcg PO DAILY 30 days #30 tabs 05/30/21 (Daliresp) prednisone 20 mg tablet See Rx Instructions PO DAILY 10 10/15/21 days #15 tabs linaclotide 290 mcg capsule 290 mcg PO QAM #30 caps 10/25/21 (Linzess) imipramine HCl 50 mg tablet 100 mg PO BEDTIME 30 days #60 tabs 10/29/21 omeprazole 20 mg capsule,delayed 20 mg PO DAILY #30 caps 10/29/21 release adlzix-wewwrqbi-gifucpg 1 cap PO QIDACHS 30 days #120 caps 11/08/21 24,000-76,000-120,000 unit capsule,delayed rel (Creon) tamsulosin 0.4 mg capsule 0.4 mg PO QAM #30 caps 11/28/21 fluticasone furoate 200 1 ea PO DAILY #60 ea 12/19/21 mcg-vilanterol 25 mcg/dose inhalation powder (Breo Ellipta) umeclidinium 62.5 mcg/actuation 1 inh inhalation DAILY #30 ea 12/19/21 blister powder for inhalation (Incruse Ellipta) codeine 10 mg-guaifenesin 100 mg/5 10 ml PO Q6H PRN cough #237 mL 03/05/22 mL oral liquid dexamethasone 6 mg tablet 6 mg PO DAILY #7 tabs 03/05/22 ibuprofen 600 mg tablet 600 mg PO Q6H PRN fever or pain 03/05/22 #30 tabs Allergies Allergy/AdvReac Type Severity Reaction Status Date / Time morphine [MORPHINE] Allergy Intermediate NAUSEA, Verified 11/29/21 14:11 rash, redness Review of Systems Review of Systems: Yes all other systems are reviewed and are negative [facility] Past Medical History Medical History Asthma-COPD overlap syndrome Back pain Chronic allergic rhinitis (~03/09/20) Chronic pain syndrome Depression Disc degeneration, lumbar GERD (gastroesophageal reflux disease) HTN (hypertension) Kidney stones OTILIO (obstructive sleep apnea) OTILIO (obstructive sleep apnea) Pneumonia Primary osteoarthritis involving multiple joints Pulmonary nodule Sacroiliac joint dysfunction of right side Sacroiliitis Severe asthma Skin cancer (melanoma) Spondylosis of lumbar spine Surgical History History of bronchoscopy History of cystoscopy History of esophagogastroduodenoscopy (EGD) History of laparoscopic appendectomy History of nasal surgery Hx of section Hx of colonoscopy Hx of knee surgery Hx of tubal ligation Family History Family History Father No problems noted. Mother No problems noted. Social History Social History Household Members: Children Housing: Apartment Alcohol intake: never Patient Tobacco Use Status: Never used Tobacco Advance Directives: No Advance Directives Information Provided: No Current occupational status: disabled Current occupation: rt handed Physical Exam Vital Signs: Vital Signs: Last Vital Signs Temp 98.9 F 03/05/22 02:05 Pulse 100 03/05/22 02:05 Resp 16 03/05/22 02:05 BP 101/53 L 03/05/22 02:05 Pulse Ox 94 03/05/22 02:05 O2 Del Method 03/05/22 02:05 Oxygen Flow Rate 2 03/04/22 22:27 BMI result Body Mass Index 31.6 Appearance: Alert. Oriented X3. No acute distress. Eyes: PERRLA, No Nystagmus ENT: Pharynx normal. Oral Mucosa moist Neck: Normal inspection. Neck supple. CVS: Normal heart rate and rhythm. Pulses normal. Respiratory: No respiratory distress. Equal air entry bilateral, prolonged expiration Abdomen: Soft , slightly deep tenderness left lower quadrant no rebound tenderness or guarding, Bowel sounds are present, no mass palpable, no CVA tenderness Skin: Skin warm and dry. Normal skin color. Normal skin turgor. Extremities: No lower extremity edema. No calf tenderness Neuro: Oriented X 3. No motor deficit. No sensory deficit.No cerebellar signs , cranial nerves II-XII intact MDM - SOB/Dyspnea MDM Narrative Medical decision making narrative: Patient's asthma with COVID-19 saturating 97% at this time at room air has nebulizer at home chest x-ray negative, will give Decadron labs are stable discharge patient home Lab Data Attestation: I reviewed the patient's lab results. Result diagrams: 03/04/22 22:16 03/04/22 22:46 Labs: Lab Results 03/04/22 03/04/22 03/04/22 Range/Units 22:16 22:16 22:16 WBC 5.6 (4.8-10.8) X10*3/uL RBC 4.63 (4.20-5.50) X10*6/uL Hgb 13.6 (12.0-16.0) g/dl Hct 41.7 (37.0-47.0) % MCV 90.1 (80.0-98.0) fL MCH 29.4 (27.0-33.0) pg MCHC 32.6 (31.0-35.0) g/dl RDW 12.7 (11.0-16.0) % Plt Count 233 (160-400) X10*3/uL MPV 10.8 (9.4-12.3) fL Immature Gran % (Auto) 0.2 (0.0-0.4) % Neut % (Auto) 74.9 H (45-73) % Lymph % (Auto) 9.6 L (20-40) % [place] % (Auto) 13.0 H (2-11) % Eos % (Auto) 1.8 (0-4) % Baso % (Auto) 0.5 (0-2) % Lymph # (Auto) 0.5 L (1.2-4.9) X10*3/uL [place] # (Auto) 0.7 (0.1-1.2) X10*3/uL Eos # (Auto) 0.1 (0.0-0.4) X10*3/uL Baso # (Auto) 0.0 (0.0-0.2) X10*3/uL Abs Immat Gran (auto) 0.01 (0.00-0.03) X10*3/uL Absolute Neuts (auto) 4.2 (2.0-8.3) x10*3/uL Absolute Nucleated RBC 0.000 (0.0-0.012) X10*3/uL Nucleated RBC % (auto) 0.0 (0.0-0.2) /100WBC Sodium (135-145) mmol/L Potassium (3.3-5.1) mmol/L Chloride (96-108) mmol/L Carbon Dioxide (22-29) mmol/L Anion Gap (12-20) BUN (9-16) mg/dL Creatinine (0.5-1.4) mg/dL Estim Creat Clear Calc Estimated GFR Random Glucose (60-115) mg/dL Lactic Acid 1.5 (0.5-2.0) mmol/L Calcium (8.4-10.2) mg/dL Total Bilirubin (0.0-1.0) mg/dL AST (5-31) U/L ALT (0-31) U/L Alkaline Phosphatase (39-117) U/L Total Protein (6.5-8.0) g/dL Albumin (3.5-5.0) g/dL COVID-19 (KADEN) Positive A (Negative) COVID-19 Clin Com See Note Influenza Type A (CRISTAL) (Negative) Influenza Type B (CRISTAL) (Negative) Influenza A & B Note 03/04/22 03/04/22 Range/Units 22:16 22:46 WBC (4.8-10.8) X10*3/uL RBC (4.20-5.50) X10*6/uL Hgb (12.0-16.0) g/dl Hct (37.0-47.0) % MCV (80.0-98.0) fL MCH (27.0-33.0) pg MCHC (31.0-35.0) g/dl RDW (11.0-16.0) % Plt Count (160-400) X10*3/uL MPV (9.4-12.3) fL Immature Gran % (Auto) (0.0-0.4) % Neut % (Auto) (45-73) % Lymph % (Auto) (20-40) % [place] % (Auto) (2-11) % Eos % (Auto) (0-4) % Baso % (Auto) (0-2) % Lymph # (Auto) (1.2-4.9) X10*3/uL [place] # (Auto) (0.1-1.2) X10*3/uL Eos # (Auto) (0.0-0.4) X10*3/uL Baso # (Auto) (0.0-0.2) X10*3/uL Abs Immat Gran (auto) (0.00-0.03) X10*3/uL Absolute Neuts (auto) (2.0-8.3) x10*3/uL Absolute Nucleated RBC (0.0-0.012) X10*3/uL Nucleated RBC % (auto) (0.0-0.2) /100WBC Sodium 139 (135-145) mmol/L Potassium 4.1 (3.3-5.1) mmol/L Chloride 103 (96-108) mmol/L Carbon Dioxide 25 (22-29) mmol/L Anion Gap 15 (12-20) BUN 14 (9-16) mg/dL Creatinine 0.79 (0.5-1.4) mg/dL Estim Creat Clear Calc 71.2 Estimated GFR > 60 Random Glucose 112 (60-115) mg/dL Lactic Acid (0.5-2.0) mmol/L Calcium 9.7 (8.4-10.2) mg/dL Total Bilirubin 1.1 H (0.0-1.0) mg/dL AST 20 (5-31) U/L ALT 16 (0-31) U/L Alkaline Phosphatase 80 (39-117) U/L Total Protein 7.2 (6.5-8.0) g/dL Albumin 4.2 (3.5-5.0) g/dL COVID-19 (KADEN) (Negative) COVID-19 Clin Com Influenza Type A (CRISTAL) Negative (Negative) Influenza Type B (CRISTAL) Negative (Negative) Influenza A & B Note See Note Discharge Plan Discharge Clinical Impression: COVID-19, Asthma Patient Disposition: Home, Self-Care Instructions: Asthma (ED), COVID-19 (Coronavirus Disease 2019) (ED) Additional Instructions: Drink plenty of fluids Tylenol/Motrin for fever Decadron as advised Continue to use albuterol nebulizing treatment Cough syrup advised Follow with PCP if not better Social distancing as advised Report to ER if increased shortness of breath Beber mucho l?quido Tylenol/Motrin para la fiebre Decadron ashlee se recomienda Contin?e usando el tratamiento de nebulizaci?n con albuterol Se recomienda jarabe para la tos Siga con PCP si no mejor Distanciamiento social ashlee se recomienda Informe a la saumya de emergencias si aumenta la dificultad para respirar Prescriptions: New codeine-guaifenesin 10-100 mg/5 mL liquid 10 ml PO Q6H PRN (Reason: cough) Qty: 237 0RF dexamethasone 6 mg tablet 6 mg PO DAILY Qty: 7 0RF ibuprofen 600 mg tablet 600 mg PO Q6H PRN (Reason: fever or pain) Qty: 30 0RF No Action budesonide 0.5 mg/2 mL suspension for nebulization 0.5 mg inhalation DAILY Qty: 180 3RF celecoxib [Celebrex] 200 mg capsule 200 mg PO BID 30 Days Qty: 60 3RF albuterol sulfate 2.5 mg /3 mL (0.083 %) solution for nebulization 2.5 mg inhalation Q4H PRN (Reason: shortness of breath or wheezing) 30 Days Qty: 360 11RF montelukast 10 mg tablet 10 mg PO DAILY 30 Days Qty: 30 11RF Daliresp 500 mcg tablet 500 mcg PO DAILY 30 Days Qty: 30 11RF Linzess 290 mcg capsule 290 mcg PO QAM Qty: 30 6RF imipramine HCl 50 mg tablet 100 mg PO BEDTIME 30 Days Qty: 60 6RF omeprazole 20 mg capsule,delayed release(DR/EC) 20 mg PO DAILY Qty: 30 6RF tamsulosin 0.4 mg capsule 0.4 mg PO QAM Qty: 30 3RF Breo Ellipta 200-25 mcg/dose blister with device 1 ea PO DAILY Qty: 60 11RF Incruse Ellipta 62.5 mcg/actuation blister with device 1 inh inhalation DAILY Qty: 30 11RF cyclobenzaprine 10 mg tablet 5 mg PO TID PRN (Reason: muscle spasm) Qty: 14 0RF albuterol sulfate 90 mcg/actuation HFA aerosol inhaler 2 puff inhalation Q4-6H PRN (Reason: shortness of breath or wheezing) Qty: 8.5 0RF gabapentin 300 mg capsule 300 mg PO carvedilol 3.125 mg tablet 3.125 mg PO BID furosemide 40 mg tablet 40 mg PO DAILY ergocalciferol (vitamin D2) 1,250 mcg (50,000 unit) capsule 1,250 mcg PO QWEEK hydralazine 50 mg tablet 50 mg PO BID lisinopril 40 mg tablet 40 mg PO DAILY aspirin 81 mg tablet,chewable 1 tab PO DAILY albuterol sulfate 90 mcg/actuation HFA aerosol inhaler inhalation diltiazem HCl 240 mg capsule,extended release 24hr 240 mg PO DAILY hydrochlorothiazide 50 mg tablet 50 mg PO DAILY loratadine [Claritin] 10 mg tablet 10 mg PO DAILY 30 Days Qty: 30 11RF docusate sodium 100 mg capsule 100 mg PO .BID WITH FOOD 30 Days Qty: 60 6RF amitriptyline 100 mg tablet 100 mg PO BEDTIME folic acid 1 mg tablet 1 mg PO DAILY oxycodone-acetaminophen [Percocet] 5-325 mg tablet 1 tab PO BID PRN (Reason: pain) 30 Days Qty: 60 0RF Creon 24,000-76,000 -120,000 unit capsule,delayed release(DR/EC) 1 cap PO QIDACHS 30 Days Qty: 120 6RF Rx Instructions: administer with meals and/or snacks prednisone 20 mg tablet See Rx Instructions PO DAILY 10 Days Qty: 15 0RF Rx Instructions: PO daily; Take 2 tabs daily x 5 days, then 1 tablet daily x 5 days Interventions: ED Discharge Assessment Last Done: 03/05/22 02:09 Discharge Date/Time: 03/05/22 02:15 Print Language: [place]
[2022-03-04 22:27] VITALS: O2SAT 98
[2022-03-04 22:30] LABS: MANUAL DIFF FLAG NO
[2022-03-04 22:32] LABS: Basophils Percent Auto 0.5 % (0-2); Eosinophils Absolute Auto 0.1 X10*3/uL (0.0-0.4); Eosinophils Percent Auto 1.8 % (0-4); Hematocrit 41.7 % (37.0-47.0); Hemoglobin 13.6 g/dl (12.0-16.0); Imm Gran Abs Auto 0.01 X10*3/uL (0.00-0.03); Imm Gran Pct Auto 0.2 % (0.0-0.4); Lymphocytes Absolute Auto 0.5 X10*3/uL (1.2-4.9); Lymphocytes Percent Auto 9.6 % (20-40); Mean Corpuscular HGB Conc 32.6 g/dl (31.0-35.0); Mean Corpuscular Hemoglobin 29.4 pg (27.0-33.0); Mean Corpuscular Volume 90.1 fL (80.0-98.0); Mean Platelet Volume 10.8 fL (9.4-12.3); Monocytes Absolute Auto 0.7 X10*3/uL (0.1-1.2); Neutrophils Absolute Auto 4.2 x10*3/uL (2.0-8.3); Neutrophils Percent Auto 74.9 % (45-73); Platelet Count 233 X10*3/uL (160-400); Red Blood Count 4.63 X10*6/uL (4.20-5.50); Red Cell Distribution Width 12.7 % (11.0-16.0); White Blood Count 5.6 X10*3/uL (4.8-10.8)
[2022-03-04 22:46] LABS: Lactic Acid 1.5 mmol/L (0.5-2.0)
[2022-03-04] MEDS: Albuterol Sulfate 2.5 MG, Albuterol/Iprat 2.5/0.5MG 3 ML 3 ML INHALE (22:48)
[2022-03-04] MEDS: 0.9 % Sodium Chloride 1,000 ML 999 ML IV (22:48)
[2022-03-04 22:49] LABS: COVID-19 Test Positive (Negative); IDNOW Serial# 08D9AD1C; Influenza A Negative (Negative); Influenza B2 Negative (Negative)
[2022-03-04 22:51] VITALS: PULSE 103; RESP 20; O2SAT 99
[2022-03-04 23:19] LABS: Alanine Aminotransferase 16 U/L (0-31); Albumin Level 4.2 g/dL (3.5-5.0); Alkaline Phosphatase 80 U/L (39-117); Anion Gap 15 (12-20); Aspartate Amino Transferase 20 U/L (5-31); Bilirubin Total 1.1 mg/dL (0.0-1.0); Blood Urea Nitrogen 14 mg/dL (9-16); Calcium 9.7 mg/dL (8.4-10.2); Carbon Dioxide 25 mmol/L (22-29); Chloride 103 mmol/L (96-108); Creatinine Clr Calc Pharmacy 71.2; Estimated Glomerular Filt Rate > 60; Glucose Random 112 mg/dL (60-115); Potassium 4.1 mmol/L (3.3-5.1); Sodium 139 mmol/L (135-145); Total Protein 7.2 g/dL (6.5-8.0)
[2022-03-04] MEDS: dexAMETHasone sod phosphate 4 MG/ML VIAL 6 MG IVPUSH (23:49)
[2022-03-05] VITALS: BP 136/53; PULSE 129; RESP 20; TEMP 37.7; O2SAT 98
[2022-03-05] MEDS: Ketorolac Tromethamine 30 MG/ML VIAL IVPUSH (00:41)
[2022-03-05] MEDS: guaiFEN/Codeine SF 200/20/10ML 10 ML LIQUID PO (00:41)
[2022-03-05] MEDS: Acetaminophen 325 MG TABLET 650 MG PO (00:42)
[2022-03-05 02:05] VITALS: BP 101/53; PULSE 100; RESP 16; TEMP 37.2; O2SAT 94
== END 2022-03-05 02:15 | disposition home or self-care (01) ==
PROVIDERS: Emergency Provider Internal Medicine
DX: U07.1 COVID-19 (principal); J45.909 Unspecified asthma, uncomplicated; R50.9 Fever, unspecified
CPT/HCPCS: 71045; 80053; 83605; 85025; 87040; 87502; 87635; 94640; 96374; 96375; 99284; 99285; J1100; J1885

== ENCOUNTER → 2022-07-26 14:09 | Outpatient (BNVA) | payer OTHER, SELFPAY | PROVIDERS: Visit Provider Hospitalist | DX: G47.33 Obstructive sleep apnea (adult) (pediatric) (principal); R91.1 Solitary pulmonary nodule; J45.50 Severe persistent asthma, uncomplicated; J44.9 Chronic obstructive pulmonary disease, unspecified; J98.11 Atelectasis; K21.9 Gastro-esophageal reflux disease without esophagitis | CPT/HCPCS: 99212 ==

== ENCOUNTER 2022-08-28 14:43 | Outpatient (REF) | payer OTHER, SELFPAY ==
--- NOTE | ~2022-08-28 | CT_ITS ---
EXAMINATION: CT HEAD WITH/WITHOUT CONTRAST CLINICAL INFORMATION: Acute intractable headache COMPARISON: 08/16/2021 TECHNIQUE: Contiguous axial imaging was performed from the skull base to vertex before and after the administration of 85 mL of Omnipaque [address] examination was performed using dose optimization techniques as appropriate, variously including the following: *Automated exposure control *Adjustment of mA and/or kV according to patient size (this includes techniques or standardized protocols for targeted exams where dose is matched to indication/reason for exam; i.e. extremities or head) *Use of iterative reconstruction technique DLP: 1197 mGy-cm FINDINGS: There is no evidence of acute intracranial hemorrhage or territorial infarction. No abnormal mass effect or midline shift is seen. Al to white matter differentiation is well preserved. No extra-axial fluid collections are identified. No abnormal parenchymal or leptomeningeal enhancement. No hydrocephalus. No significant volume loss. Patchy periventricular and deep white matter hypoattenuation is consistent with mild small vessel ischemic changes. The osseous structures and soft tissues are normal. The mastoid air cells and visualized portions of the paranasal sinuses are well aerated. CT/CT head/brain wo/w IV con IMPRESSION: No acute intracranial pathology. No abnormal enhancement.
--- NOTE | ~2022-08-28 | XR_ITS ---
EXAMINATION: XR CHEST CLINICAL INFORMATION: Atelectasis COMPARISON: Previous chest x-rays, most recent February 2022 TECHNIQUE: 2 views of the chest were obtained. FINDINGS: The cardiac and mediastinal contours are stable. The lungs are clear. No pleural effusion or pneumothorax. There are degenerative changes of the spine. XR/XR chest 2V IMPRESSION: No evidence for acute disease in the chest.
[2022-08-28] MEDS: iohexoL 350 MG/ML 100 ML INFUS..BTL IV (16:46)
[2022-08-29 08:50] LABS: Creatinine POC 0.8 mg/dL (0.5-1.4); GFR POC > 60
== END 2022-08-28 14:44 | disposition home or self-care (01) ==
LOC: HO.CT 14:43
PROVIDERS: PCP General Practice; Visit Provider General Practice
DX: J98.11 Atelectasis (principal); R51.9 Headache, unspecified
CPT/HCPCS: 70470; 71046; 82565; Q9967

== ENCOUNTER 2023-07-15 14:37 | Outpatient (AMB) | payer OTHER, SELFPAY ==
--- NOTE | 2023-07-15 14:41 | A.OFFVIS_ITS ---
Intake Vital Signs 07/15/23 14:42 Height 5 ft 3 in Weight 199 lb 15.348 oz BMI 35.4 Pulse 73 Pulse Source Pulse Oximeter Pulse Oximetry (%) 97 Oxygen Delivery Method Room Air Intake Visit Reasons: Obstructive sleep apnea Basting Marker Required: No Allergies morphine [MORPHINE] Allergy (Intermediate, Verified 07/15/23 14:43) NAUSEA, rash, redness HPI HPI Comments History of Present Illness Details The patient is a 73-year-old woman known asthma. Recently had a CT scan of the abdomen demonstrating hiatal hernia as well. She continues to be on her respiratory regimen which includes Trelegy and also budesonide nebs and albuterol nebs. She had also takes her allergy medicine including singular. Recently she could not find her singular medication nguyen and she has noticed that her respiratory symptoms are getting worse. The patient also has cough. Moderate severity. Tends to be dry. We did talk about the reflux diet. Is going to try to follow it closely. She was slow to improve had a CT scan done again demonstrating airspace disease in the left base. She did undergo bronchoscopy with significant mucus burden status post therapeutic bronchoscopy. The patient is here for pulmonary follow-up visit. She continues to have significant shortness of breath. Moderate severity. She also complains of cough. She has also noticed lower extremity edema. She did follow-up with her primary care doctor regarding that. She is concerned that she may have had the COVID-19 infection back when she was in the hospital. At this point we can check her antibodies. Was likely she does have the flu. However, was complicated by postviral pneumonia mainly affecting her left lower lobe. She did undergo bronchoscopy. Still on examination she is not opening up the left base well. Will plan to repeat the chest x-ray. Her blood work also demonstrated significant eosinophilia. She does have severe persistent asthma and may benefit from biologic therapy if she is no better. 03/09/2020 the patient is here for pulmonary follow-up visit. She feels her asthma is been more active. She has been using her nebulizer twice or 3 times a day. She has been using her allergy medicine as well. However for some reason she does not have any further maintenance inhalers. Therefore we have to optimize her respiratory therapy at this time. She is concerned because he was hospitalized with pneumonia and required bronchoscopy several months ago. At this point I reassured her her lungs sound consistent with wheezing and asthma and no evidence of any pneumonia at this time. Therefore we will optimize respiratory therapy and she will call if she is no better in order to give her some prednisone. 09/28/2020 the patient is here for pulmonary follow-up visit. For the last spoke she went to the ER because she was having left-sided chest discomfort. Her workup was unremarkable. She was sent home with supportive care. In the meantime she did undergo blood work with a normal IgE in a normal eosinophil level. Therefore she likely has non allergic asthma. For she has significant chest congestion and significant flares. Therefore, will be reasonable to treated for chronic bronchitis with Daliresp. Patient has been taking prednisone often. I am hopeful that the Daliresp the symptoms she can tolerate and decrease her prednisone use. 11/23/2020 the patient is here for a pulmonary follow-up visit. Overall the patient has been doing a little better. She has been responding well to the Daliresp. She still complains of chest congestion chest tightness and wheezing. [id number] severity. She continues to use her respiratory medication as prescribed. We did review her last CT scan of the chest which was more than a year ago demonstrating subcentimeter pulmonary nodule. The patient will need a follow-up CT scan to make sure that the nodular density has not progressed. Specially with her ongoing symptoms. We will optimize her respiratory therapy further by increasing the Daliresp. Monitor for any adverse effects. Will follow up after the CT scan. 12/29/2020 the patient is here for pulmonary follow-up visit. She continues to complaint of worsening cough and chest congestion. She has not been feeling well. Her back is also on comfortable. She continues use her respiratory therapy. Only providing partial response. She has been using her nebulizer more often. She does tolerate Daliresp and she is taking the full dose of 500 mcg at this time. The patient likely has a lower respiratory infection. Therefore will start her on antibiotics to see if we can clear that chest congestion. Prior to getting sick the patient did have a CT scan of the chest that I personally review with her. Apparently she was not having any symptoms the end of November when she had a CT scan. She had a very stable looking CT scan with a calcified nodular density that is a granuloma and not concerning and she did have some atelectasis to the and lingula. But otherwise no other significant findings on the CT scan. 02/27/2021 the patient is here for a pulmonary follow-up visit. She is complaining of worsening shortness of breath specially at nighttime when she lays flat. She is also complaining of back and left-sided chest discomfort. I will cycle radiating discomfort. She has been having significant back pain and recently she did undergo a MRI of her lumbar spine. She is still waiting for those results. In the meantime she has been noticing increasing shortness of breath when she lays flat. She also has lower extremity edema and has gained some weight. The patient does snore. She has had episodes of sleep apnea. In addition to that is been documented by has been. She does wake up tired with headaches. At this point assessing for sleep apnea will be helpful. She also has a family history of sleep apnea. In addition to that we will reassess her cardiac status per she will continue with the current respiratory medications. She needs to continue with Daliresp. She also has had a congested cough and I will send her some antibiotics for that will follow in a couple months to review the results and her response to therapy. 07/31/2021 the patient is here for a pulmonary follow-up visit. She continues to have significant daytime drowsiness. Her [place] score is elevated 11/24. Her son brought in a recording of her significant snoring. He is also concerned because she stops breathing at nighttime. The patient does have cardiovascular risk factors. She did undergo a home sleep study with an AHI of approximately 6. She has mild sleep apnea but she is very symptomatic and along with cardiovascular risk factors the patient should start CPAP therapy at this time. I will make arrangements with local [employer] company in order to do so. Patient continues with current respiratory regimen. She has no longer really using the nebulized therapy. She has not had to use her rescue inhaler either. However she does continue on the Breo and also on the Daliresp and Incruse. The patient will get a [employer] company to provide her with a APAP. I have her come back in 4 months with her APAP in order to review her progress. I do believe that she is going to do very good on it. 10/15/2021 the patient is here for a pulmonary follow-up visit. Overall the patient has been doing well. Although now with the spring season she has had episodes of significant shortness of breath and chest tightness and wheezing. She has had to use her nebulizer numerous times. She has not required any prednisone as of yet. Regards to the CPAP she has been tolerating it well. The CPAP therapy continues to be affecting beneficial. However, she feels her mask is to [place] and also feels that she is not getting adequate supplies from her DME company. I did call the [employer] company to the note to make sure they have a [place] speaking advertising account representative to call her in order for her to get supplies. In the meantime I did have a smaller F 20 mask small that she tried in the office and she has tolerated well. I am hopeful that this will be a better fit for her. While also sent a script to her [employer] company in order for her to get this mask. If she has a difficulty time that this mass is to call the office we can not change the mask or sent a new script to the [employer]. On examination she does have some wheezing. she is currently not on any prednisone. If her symptoms worsen she may need to start prednisone. I am hoping that she is able to improved just with the nebulized therapy and her maintenance therapy. The patient is already using allergy therapy. 11/29/2021 the patient is here for a pulmonary follow-up visit. Overall the patient has been doing well. Her asthma seems to be in good control. She continues use respiratory therapy. She did bring her CPAP. Her AHI it is less than 1. CPAP therapy has been very affecting beneficial. She does use it for more than 4 hours a night. However, she still struggling with the mask. She was sent over a medium F20 mask. However, she needs small. I did have a small liner which she will be able to take home in order to continue using. I will resend the prescription to the [employer] with the size of the mask again. The [employer] did call her but she does not speak fluent [place]. 07/26/2022 the patient is here for a pulmonary follow-up visit. Overall the patient has been doing well. Her asthma seems to be in good control. She continues use respiratory therapy. Has not required any prednisone. She continues to use her CPAP 4 hours a night. The CPAP has been effective and beneficial. We did review her last CXR with left basilar atelectasis. We will have her repeat the CXR at this time. She will continue with her respiratory therapy and work on deep breathing exercises. 07/15/2023 the patient is here for a pulmonary follow-up visit. Patient overall has been feeling a little bit worse from her asthma. She has been sometime in [place] her asthma was good. However when she made back to this state she started developing again to tightness and wheezing. unfortunately, her nebulizer fell and broke and is no longer working. She needs have a functional nebulizer in view of her severe persistent asthma. will go ahead and order a new nebulizer replacement for the patient at this time. In the meantime she has been having hard time with her CPAP because she has not been getting supplies. I have explained to her that based on the fact that she has not using it the insurance will cover for any supplies. Therefore, she is going to start using at this time. Will review the use with the next download. [facility] Medical History (Updated 07/26/22 @ 14:33 by Bret Bonner MD) Atelectasis of left lung Chronic pain syndrome 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 Sacroiliitis Disc degeneration, lumbar OTILIO (obstructive sleep apnea) Back pain HTN (hypertension) Skin cancer (melanoma) GERD (gastroesophageal reflux disease) Depression OTILIO (obstructive sleep apnea) Kidney stones Pulmonary nodule Severe asthma Primary osteoarthritis involving multiple joints Pneumonia Chronic allergic rhinitis (~03/09/20) Asthma-COPD overlap syndrome Surgical History History of bronchoscopy History of cystoscopy History of laparoscopic appendectomy History of nasal surgery Hx of section Hx of tubal ligation Hx of colonoscopy History of esophagogastroduodenoscopy (EGD) Hx of knee surgery Family History Father No problems noted. Mother No problems noted. Social History Household Members: Children Housing: Apartment Alcohol intake: never Patient Tobacco Use Status: Never used Tobacco Current occupational status: disabled Current occupation: rt handed Review of Systems Const Denies daytime sleepiness, Denies stops breathing during sleep and Reports weight gain Eyes Denies change in vision ENT Reports Normal hearing present Card Reports dyspnea Resp Denies chest congestion, Reports cough, Reports dyspnea and Reports wheezing Musc Reports back pain Neuro Reports Normal hearing present and Denies Abnormal speech present Aller/Immun Reports wheezing Physical Exam Vital Signs: Last Vital Signs Pulse 73 07/15/23 14:42 Pulse Ox 97 07/15/23 14:42 Oxygen Delivery Method Room Air 07/15/23 14:42 BMI result Body Mass Index 35.4 Const General: alert Neck Neck: Yes normal visual inspection, Yes full ROM and Yes no lymphadenopathy Chest Chest palpation & inspection: normal inspection of the chest Resp Effort & Inspection: normal respiratory effort Auscultation: no wheezes and diminished lung sounds Cardio Rate: regular rate Rhythm: regular rhythm Heart sounds: S1 normal heart sound present and S2 normal heart sound present GI Palpation (GI): Soft to palpation and nontender Auscultation: normal bowel sounds Skin General skin exam: rashes and/or lesions noted Neuro Cranial nerves: Yes Normal hearing present Speech: No Abnormal speech present Assessment & Plan Assessment & Plan (1) OTILIO (obstructive sleep apnea): Code(s): G47.33 - Obstructive sleep apnea (adult) (pediatric) (2) Pulmonary nodule: Code(s): R91.1 - Solitary pulmonary nodule (3) GERD (gastroesophageal reflux disease): Code(s): K21.9 - Gastro-esophageal reflux disease without esophagitis Qualifiers: Esophagitis presence: without esophagitis Qualified Code(s): K21.9 - Gastro-esophageal reflux disease without esophagitis (4) Severe asthma: Code(s): J45.909 - Unspecified asthma, uncomplicated Qualifiers: Asthma complication type: uncomplicated Asthma persistence: persistent Qualified Code(s): J45.50 - Severe persistent asthma, uncomplicated (5) Asthma-COPD overlap syndrome: Code(s): J44.9 - Chronic obstructive pulmonary disease, unspecified (6) Atelectasis of left lung: Code(s): J98.11 - Atelectasis Plan Continue APAP, needs F20 small mask continue Daliresp 500mg daily Continue Breo stop incruse start Spiriva JOHANA as needed Needs a replacement nebulizer to administer her albuterol Continue Claritin, sinngulair Continue CPAP, needs supplies F/U 6-8 months Medications: New tiotropium bromide 2.5 mcg/actuation (Spiriva Respimat) 2 puffs inhalation DAILY 30 days 1 ea 11RF Refilled albuterol sulfate 2.5 mg (3 mL) inhalation Q4H 30 days PRN 360 mL 11RF shortness of breath or wheezing roflumilast (Daliresp) 500 mcg PO DAILY 30 days 30 tabs 11RF albuterol sulfate 90 mcg/actuation 2 puffs inhalation Q4-6H PRN 8.5 grams 0RF shortness of breath or wheezing fluticasone furoate-vilanterol 200-25 mcg/dose (Breo Ellipta) 1 ea PO DAILY 60 ea 11RF J45.909 - Unspecified asthma, uncomplicated montelukast 10 mg PO DAILY 30 days 30 tabs 11RF J45.909 - Unspecified asthma, uncomplicated Coding Level of Care Code Est Pt Level 4 (38680) Diagnoses OTILIO (obstructive sleep apnea) G47.33 Pulmonary nodule R91.1 Gastroesophageal reflux disease without esophagitis K21.9 Esophagitis presence: without esophagitis Severe persistent asthma without complication J45.50 Asthma complication type: uncomplicated Asthma persistence: persistent Asthma-COPD overlap syndrome J44.9 Atelectasis of left lung J98.11 Time Spent (min) 17
[2023-07-15 14:42] VITALS: PULSE 73; O2SAT 97; BMI 35.4
== END 2023-07-15 15:01 | disposition home or self-care (01) ==
PROVIDERS: PCP General Practice; Visit Provider Hospitalist
DX: G47.33 Obstructive sleep apnea (adult) (pediatric) (principal); R91.1 Solitary pulmonary nodule; K21.9 Gastro-esophageal reflux disease without esophagitis; J45.50 Severe persistent asthma, uncomplicated; J44.9 Chronic obstructive pulmonary disease, unspecified; J98.11 Atelectasis
CPT/HCPCS: 99214

== ENCOUNTER → 2023-07-15 14:37 | Outpatient (BNVA) | payer OTHER, SELFPAY | PROVIDERS: PCP General Practice; Visit Provider Hospitalist | DX: G47.33 Obstructive sleep apnea (adult) (pediatric) (principal); R91.1 Solitary pulmonary nodule; K21.9 Gastro-esophageal reflux disease without esophagitis; J45.50 Severe persistent asthma, uncomplicated; J98.11 Atelectasis; J44.9 Chronic obstructive pulmonary disease, unspecified | CPT/HCPCS: 99212 ==

== ENCOUNTER 2023-07-23 15:31 | Outpatient (REF) | payer OTHER, SELFPAY ==
[2023-07-23 16:50] LABS: Estimated Average Glucose 97 mg/dL
[2023-07-23 18:04] LABS: Alanine Aminotransferase 18 U/L (0-31); Albumin Level 4.2 g/dL (3.5-5.0); Alkaline Phosphatase 84 U/L (39-117); Anion Gap 13 (12-20); Aspartate Amino Transferase 18 U/L (5-31); Bilirubin Total 1.2 mg/dL (0.0-1.0); Blood Urea Nitrogen 14 mg/dL (9-16); Carbon Dioxide 29 mmol/L (22-29); Chloride 105 mmol/L (96-108); Cholesterol 152 mg/dL (<200); Estimated Glomerular Filt Rate > 60; Glucose Random 67 mg/dL (60-115); HDL Cholesterol 47 mg/dL (>40); Potassium 3.9 mmol/L (3.3-5.1); Sodium 143 mmol/L (135-145); Total Protein 7.9 g/dL (6.5-8.0)
[2023-07-23 18:47] LABS: LDL Cholesterol Calculated 77 mg/dL (<100); Triglycerides 142 mg/dL (<150)
--- NOTE | 2023-08-26 12:20 | EEG_ITS ---
FINDINGS: The waking background activity consists of low voltage fast frequencies seen diffusely intermixed with a low voltage posterior 11 hertz alpha frequency. Photic stimulation is without activation. Hyperventilation was omitted. No focal, lateralizing, or paroxysmal discharges are seen. IMPRESSION: This waking EEG is within normal limits. MD ROSAURA Gregg/SUMA / [id number]
== END 2023-07-23 15:32 | disposition home or self-care (01) ==
LOC: HO.HHCL 15:31
PROVIDERS: Visit Provider General Practice
DX: E11.69 Type 2 diabetes mellitus with other specified complication (principal)
CPT/HCPCS: 36415; 80053; 80061; 83036

== ENCOUNTER 2023-08-13 06:36 | Emergency (ER) | payer OTHER, SELFPAY ==
[2023-08-13] VITALS (9 sets, daily range): BP systolic 107–154; BP diastolic 66–86; PULSE 77–108; RESP 16–22; TEMP 36.7–37.2; O2SAT 92–97; BMI 35.1
--- NOTE | 2023-08-13 | ECG_ITS ---
Test Reason : SOB Blood Pressure : / mmHG Vent. Rate : 081 BPM Atrial Rate : 081 BPM P-R Int : 128 ms QRS Dur : 126 ms QT Int : 418 ms P-R-T Axes : 067 013 011 degrees QTc Int : 485 ms Normal sinus rhythm with sinus arrhythmia Right bundle branch block Abnormal ECG When compared to the previous EKG of No significant changes seen Referred By: Generic ED Physician Electronically Signed By:DANIA LINARES MD
--- NOTE | ~2023-08-13 | XR_ITS ---
EXAMINATION: XR CHEST CLINICAL INFORMATION: Cough, wheezing, COPD COMPARISON: Chest radiographs dating back to 03/28/2021 TECHNIQUE: 2 views of the chest were obtained. FINDINGS: Prominent heart. Mediastinum within normal limits. Vessels are not increased. Redemonstration of streaky retrocardiac opacities and costophrenic angle blunting on frontal view are not reproduced on lateral view. Degenerative changes. XR/XR chest 2V IMPRESSION: Stable chest. No acute process recognized.
[2023-08-13 09:31] LABS: MANUAL DIFF FLAG NO
[2023-08-13 09:34] LABS: Basophils Percent Auto 0.1 % (0-2); Hematocrit 43.7 % (37.0-47.0); Hemoglobin 14.2 g/dl (12.0-16.0); Imm Gran Abs Auto 0.03 X10*3/uL (0.00-0.03); Imm Gran Pct Auto 0.3 % (0.0-0.4); Lymphocytes Absolute Auto 1.1 X10*3/uL (1.2-4.9); Lymphocytes Percent Auto 9.5 % (20-40); Mean Corpuscular HGB Conc 32.5 g/dl (31.0-35.0); Mean Corpuscular Hemoglobin 29.5 pg (27.0-33.0); Mean Corpuscular Volume 90.7 fL (80.0-98.0); Mean Platelet Volume 10.7 fL (9.4-12.3); Monocytes Absolute Auto 1.1 X10*3/uL (0.1-1.2); Monocytes Percent Auto 9.6 % (2-11); Neutrophils Percent Auto 80.5 % (45-73); Platelet Count 290 X10*3/uL (160-400); Red Blood Count 4.82 X10*6/uL (4.20-5.50); Red Cell Distribution Width 13.4 % (11.0-16.0); White Blood Count 11.2 X10*3/uL (4.8-10.8)
[2023-08-13 09:48] LABS: Alanine Aminotransferase 16 U/L (0-31); Albumin Level 4.1 g/dL (3.5-5.0); Alkaline Phosphatase 71 U/L (39-117); Anion Gap 12 (12-20); Aspartate Amino Transferase 18 U/L (5-31); Bilirubin Total 0.9 mg/dL (0.0-1.0); Blood Urea Nitrogen 14 mg/dL (9-16); Calcium 10.2 mg/dL (8.4-10.2); Carbon Dioxide 27 mmol/L (22-29); Chloride 108 mmol/L (96-108); Creatinine Clr Calc Pharmacy 71.8; Estimated Glomerular Filt Rate > 60; Glucose Random 96 mg/dL (60-115); Potassium 4.4 mmol/L (3.3-5.1); Sodium 143 mmol/L (135-145); Total Protein 7.6 g/dL (6.5-8.0)
[2023-08-13 09:52] LABS: Troponin-I High Sensitivity 3.1 ng/L (<3.5-17.0)
[2023-08-13 10:47] LABS: Adenovirus PCR Not Detected (Not Detect.); Bordetella parapertussis PCR Not Detected (Not Detect.); Bordetella pertussis PCR Not Detected (Not Detect.); Chlamydia pneumoniae PCR Not Detected (Not Detect.); Coronavirus 229E PCR Not Detected (Not Detect.); Coronavirus HKU1 PCR Not Detected (Not Detect.); Coronavirus NL63 PCR Not Detected (Not Detect.); Coronavirus OC43 PCR Not Detected (Not Detect.); Human metapneumovirus PCR Not Detected (Not Detect.); Influenza B PCR Not Detected (Not Detect.); Mycoplasma pneumoniae PCR Not Detected (Not Detect.); Parainfluenza 1 PCR Not Detected (Not Detect.); Parainfluenza 2 PCR Not Detected (Not Detect.); Parainfluenza 3 PCR Not Detected (Not Detect.); Parainfluenza 4 PCR Not Detected (Not Detect.); RSV PCR Not Detected (Not Detect.); Rhino/Enterovirus PCR Not Detected (Not Detect.)
--- NOTE | 2023-08-13 10:55 | ED_ITS ---
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 Patient with COPD who presents with wheezing and cough for 4 days. She denies fever MD complaint: shortness of breath and wheezing Onset (ago): day(s) Severity: moderate Related Data Home Medications Medication Instructions Recorded Confirmed aspirin 81 mg chewable tablet 1 tab PO DAILY 03/09/20 03/22/21 carvedilol 3.125 mg tablet 3.125 mg PO BID 03/09/20 03/22/21 diltiazem HCl 240 mg 240 mg PO DAILY 03/09/20 03/22/21 capsule,extended release 24 hr ergocalciferol (vitamin D2) 1,250 1,250 mcg PO QWEEK 03/09/20 03/22/21 mcg (50,000 unit) capsule furosemide 40 mg tablet 40 mg PO DAILY 03/09/20 03/22/21 gabapentin 300 mg capsule 300 mg PO 03/09/20 03/22/21 hydralazine 50 mg tablet 50 mg PO BID 03/09/20 03/22/21 hydrochlorothiazide 50 mg tablet 50 mg PO DAILY 03/09/20 03/22/21 lisinopril 40 mg tablet 40 mg PO DAILY 03/09/20 03/22/21 amitriptyline 100 mg tablet 100 mg PO BEDTIME 02/27/21 03/22/21 folic acid 1 mg tablet 1 mg PO DAILY 02/27/21 03/22/21 nebulizers 07/15/23 Previous Rx's Medication Instructions Recorded loratadine 10 mg tablet (Claritin) 10 mg PO DAILY 30 days #30 tabs 03/09/20 budesonide 0.5 mg/2 mL suspension 0.5 mg (2 mL) inhalation DAILY 08/24/20 for nebulization #180 mL cyclobenzaprine 10 mg tablet 5 mg (1/2 x 10 mg) PO TID PRN 09/27/20 muscle spasm #14 tabs docusate sodium 100 mg capsule 100 mg PO .BID WITH FOOD 30 days 11/14/20 #60 caps celecoxib 200 mg capsule (Celebrex) 200 mg PO BID 30 days #60 caps 09/29/21 oxycodone-acetaminophen 5 mg-325 1 tab PO BID PRN pain 30 days #60 04/11/21 mg tablet (Percocet) tabs imipramine HCl 50 mg tablet 100 mg (2 x 50 mg) PO BEDTIME 30 10/29/21 days #60 tabs omeprazole 20 mg capsule,delayed 20 mg PO DAILY #30 caps 10/29/21 release tbhbci-ecandumi-vrkhrkz 1 cap PO QIDACHS 30 days #120 caps 11/08/21 24,000-76,000-120,000 unit capsule,delayed rel (Creon) tamsulosin 0.4 mg capsule 0.4 mg PO QAM #30 caps 11/28/21 codeine 10 mg-guaifenesin 100 mg/5 10 ml PO Q6H PRN cough #237 mL 03/05/22 mL oral liquid dexamethasone 6 mg tablet 6 mg PO DAILY #7 tabs 03/05/22 ibuprofen 600 mg tablet 600 mg PO Q6H PRN fever or pain 03/05/22 #30 tabs linaclotide 290 mcg capsule 290 mcg PO QAM #30 caps 09/11/22 (Linzess) albuterol sulfate 90 mcg/actuation 2 puff inhalation Q4-6H PRN 07/15/23 aerosol inhaler shortness of breath or wheezing #8.5 grams fluticasone furoate 200 1 ea PO DAILY #60 ea 07/15/23 mcg-vilanterol 25 mcg/dose inhalation powder (Breo Ellipta) montelukast 10 mg tablet 10 mg PO DAILY 30 days #30 tabs 07/15/23 roflumilast 500 mcg tablet 500 mcg PO DAILY 30 days #30 tabs 07/15/23 (Daliresp) albuterol sulfate 2.5 mg/3 mL 2.5 mg (3 mL) inhalation Q4H PRN 07/25/23 (0.083 %) solution for nebulization shortness of breath or wheezing 30 days #360 mL tiotropium bromide 2.5 2 puff inhalation DAILY 30 days #1 08/07/23 mcg/actuation mist for inhalation ea (Spiriva Respimat) mihiyvchotknh-MK-zijbhvcjdwl 2.5 20 ml PO Q4H PRN cough #118 mL 08/13/23 mg-5 mg-50 mg/5 mL oral liquid (Robitussin Cough and Cold CF) prednisone 20 mg tablet 60 mg (3 x 20 mg) PO DAILY #12 tabs 08/13/23 Allergies Allergy/AdvReac Type Severity Reaction Status Date / Time morphine [MORPHINE] Allergy Intermediate NAUSEA, Verified 07/15/23 14:43 rash, redness Review of Systems 2 Review of Systems: Yes all other systems are reviewed and are negative Neurologic: Denies Sensory deficit (Neuro) [facility] Past Medical History Medical History Atelectasis of left lung Chronic pain syndrome 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 Sacroiliitis Disc degeneration, lumbar OTILIO (obstructive sleep apnea) Back pain HTN (hypertension) Skin cancer (melanoma) GERD (gastroesophageal reflux disease) Depression OTILIO (obstructive sleep apnea) Kidney stones Pulmonary nodule Severe asthma Primary osteoarthritis involving multiple joints Pneumonia Chronic allergic rhinitis (~03/09/20) Asthma-COPD overlap syndrome Surgical History History of bronchoscopy History of cystoscopy History of laparoscopic appendectomy History of nasal surgery Hx of section Hx of tubal ligation Hx of colonoscopy History of esophagogastroduodenoscopy (EGD) Hx of knee surgery Family History Family History Father No problems noted. Mother No problems noted. Social History Social History Household Members: Children Housing: Apartment Alcohol intake: never Patient Tobacco Use Status: Never used Tobacco Current occupational status: disabled Current occupation: rt handed Physical Exam 2 Vital Signs: Vital Signs: Last Vital Signs Temp 98.4 F 08/13/23 09:22 Pulse 101 H 08/13/23 14:57 Resp 19 08/13/23 14:57 BP 119/68 08/13/23 14:59 Pulse Ox 97 08/13/23 14:57 O2 Del Method Room Air 08/13/23 14:57 BMI result Body Mass Index 35.1 Const: Other: coughing and wheezing Nutritional Appearance: average body habitus Orientation/consciousness: oriented to person and patient oriented x3 Limitations: no limitations HEENT: Head: Yes normal to inspection Ears: external ears normal General nose exam: Normal external nose present Mouth: Normal oral and palatal mucosa present and oropharynx normal Throat: Yes posterior oropharynx normal Eyes: General: appearance normal, both eyes and all related structures Neck: Other: supple Neck: Yes normal visual inspection Chest: Chest palpation & inspection: normal inspection of the chest Resp: Other: diffuse wheeze and cough Cardio: Jugular venous distension: no JVD Rate: regular rate Rhythm: r egular rhythm Heart sounds: S1 normal heart sound present and S2 normal heart sound present GI: Inspection: Yes normal to inspection Palpation (GI): Soft to palpation, nontender and No hepatosplenomegaly present Auscultation: normal bowel sounds : General: Yes no CVA tenderness Back/Spine/Pelvis: Back: no CVA tenderness Skin: General skin exam: no rashes or lesions noted Neuro: General: oriented to person and patient oriented x3 Cranial nerves: Yes CN's II-XII intact bilaterally Motor exam (neuro): 5/5 motor strength present throughout Sensory Exam: No Sensory deficit (Neuro) Extrem: General: Yes normal to inspection Psych: Appearance: grossly normal Course Reevaluation(s) Reevaluation #1: patient with improvement, Influenza positive, will treat with prednisone and nebs Time: 14:55 Medications Administered Discontinued Medications Generic Name Dose Route Start Last Admin Trade Name Freq PRN Reason Stop Dose Admin Acetaminophen 975 mg 08/13/23 11:00 08/13/23 11:40 Acetaminophen 325 Mg Tablet PO 08/13/23 11:01 975 mg ONCE ONE Administration Albuterol Sulfate 7.5 mg/ 10 mg 08/13/23 11:54 08/13/23 12:04 Albuterol Sulfate 2.5 mg INHALE 08/13/23 11:55 10 mg ONCE ONE Administration Albuterol Sulfate 2.5 mg/ 0 mg 08/13/23 11:00 08/13/23 11:04 Albuterol/Ipratropium 3 ml INHALE 08/13/23 11:01 5 dose ONCE ONE Administration Prednisone 60 mg 08/13/23 10:46 08/13/23 11:40 Prednisone 20 Mg Tablet PO 08/13/23 10:47 60 mg ONCE ONE Administration Medical Decision Making Differential Diagnosis Differential Diagnoses: The differential diagnosis associated with the presentation includes (COPD exacerbation, pneumonia, Influenza, COVID, RSV were all considered) Admission/Observation Consideration of admission/observation: Escalation of care including admission/observation considered (upon arrival patient was considered for admission) Lab Data 08/13/23 09:21 08/13/23 09:21 Labs: Lab Results 08/13/23 08/13/23 Range/Units 09:21 09:25 WBC 11.2 H (4.8-10.8) X10*3/uL RBC 4.82 (4.20-5.50) X10*6/uL Hgb 14.2 (12.0-16.0) g/dl Hct 43.7 (37.0-47.0) % MCV 90.7 (80.0-98.0) fL MCH 29.5 (27.0-33.0) pg MCHC 32.5 (31.0-35.0) g/dl RDW 13.4 (11.0-16.0) % Plt Count 290 (160-400) X10*3/uL MPV 10.7 (9.4-12.3) fL Immature Gran % (Auto) 0.3 (0.0-0.4) % Neut % (Auto) 80.5 H (45-73) % Lymph % (Auto) 9.5 L (20-40) % [place] % (Auto) 9.6 (2-11) % Eos % (Auto) 0.0 (0-4) % Baso % (Auto) 0.1 (0-2) % Lymph # (Auto) 1.1 L (1.2-4.9) X10*3/uL [place] # (Auto) 1.1 (0.1-1.2) X10*3/uL Eos # (Auto) 0.0 (0.0-0.4) X10*3/uL Baso # (Auto) 0.0 (0.0-0.2) X10*3/uL Abs Immat Gran (auto) 0.03 (0.00-0.03) X10*3/uL Absolute Neuts (auto) 9.0 H (2.0-8.3) x10*3/uL Absolute Nucleated RBC 0.000 (0.0-0.012) X10*3/uL Nucleated RBC % (auto) 0.0 (0.0-0.2) /100WBC Sodium 143 (135-145) mmol/L Potassium 4.4 (3.3-5.1) mmol/L Chloride 108 (96-108) mmol/L Carbon Dioxide 27 (22-29) mmol/L Anion Gap 12 (12-20) BUN 14 (9-16) mg/dL Creatinine 0.73 (0.5-1.4) mg/dL Estim Creat Clear Calc 71.8 Estimated GFR > 60 Random Glucose 96 (60-115) mg/dL Calcium 10.2 (8.4-10.2) mg/dL Magnesium 2.0 (1.6-2.6) mg/dL Total Bilirubin 0.9 (0.0-1.0) mg/dL AST 18 (5-31) U/L ALT 16 (0-31) U/L Alkaline Phosphatase 71 (39-117) U/L Troponin I High Sens 3.1 (<3.5-17.0) ng/L Total Protein 7.6 (6.5-8.0) g/dL Albumin 4.1 (3.5-5.0) g/dL Respiratory Panel Chu See Note Adenovirus (Rapid PCR) Not Detected (Not Detect.) B.pert (TEM-PCR) Not Detected (Not Detect.) B.parapertussis DNA PCR Not Detected (Not Detect.) C. pneumoniae DNA (PCR) Not Detected (Not Detect.) Coronavirus OC43 (PCR) Not Detected (Not Detect.) Coronavirus HKU1 (PCR) Not Detected (Not Detect.) Coronavirus 229E (PCR) Not Detected (Not Detect.) Coronavirus NL63 (PCR) Not Detected (Not Detect.) Human Metapneumovir PCR Not Detected (Not Detect.) Influenza A (RT-PCR) Detected A (Not Detect.) Influenza B (RT-PCR) Not Detected (Not Detect.) M. pneumoniae (PCR) Not Detected (Not Detect.) Parainfluenza 1 (PCR) Not Detected (Not Detect.) Parainfluenza 2 (PCR) Not Detected (Not Detect.) Parainfluenza 3 (PCR) Not Detected (Not Detect.) Parainfluenza 4 (PCR) Not Detected (Not Detect.) RSV (PCR) Not Detected (Not Detect.) Entero/Rhino (PCR) Not Detected (Not Detect.) SARS-CoV-2 RNA (RT-PCR) Not Detected (Not Detect.) Independent Interpretation I performed an independent interpretation of an: EKG (sinus 80, RBBB no st or twave changes) and Plain X-Ray (no infiltrate) Independent Historian Clinical information obtained from an independent historian. History obtained from or confirmed by: Spouse Prescription Management I considered prescription management with: Antiviral (tamiflu considered but patient at least 4 days into disease process) Chronic Conditions Patient?s care impacted by: Other (COPD) Discharge Plan Discharge Clinical Impression: Asthma-COPD overlap syndrome, Influenza A Patient Disposition: Home, Self-Care Instructions: Influenza (ED), Chronic Bronchitis (ED) Prescriptions: New prednisone 20 mg tablet 60 mg PO DAILY Qty: 12 0RF Robitussin Cough and Cold CF 2.5-5-50 mg/5 mL liquid 20 ml PO Q4H PRN (Reason: cough) Qty: 118 0RF No Action budesonide 0.5 mg/2 mL suspension for nebulization 0.5 mg inhalation DAILY Qty: 180 3RF celecoxib [Celebrex] 200 mg capsule 200 mg PO BID 30 Days Qty: 60 3RF imipramine HCl 50 mg tablet 100 mg PO BEDTIME 30 Days Qty: 60 6RF omeprazole 20 mg capsule,delayed release(DR/EC) 20 mg PO DAILY Qty: 30 6RF tamsulosin 0.4 mg capsule 0.4 mg PO QAM Qty: 30 3RF Linzess 290 mcg capsule 290 mcg PO QAM Qty: 30 6RF albuterol sulfate 2.5 mg /3 mL (0.083 %) solution for nebulization 2.5 mg inhalation Q4H PRN (Reason: shortness of breath or wheezing) 30 Days Qty: 360 11RF Spiriva Respimat 2.5 mcg/actuation mist 2 puff inhalation DAILY 30 Days Qty: 1 11RF cyclobenzaprine 10 mg tablet 5 mg PO TID PRN (Reason: muscle spasm) Qty: 14 0RF codeine-guaifenesin 10-100 mg/5 mL liquid 10 ml PO Q6H PRN (Reason: cough) Qty: 237 0RF dexamethasone 6 mg tablet 6 mg PO DAILY Qty: 7 0RF ibuprofen 600 mg tablet 600 mg PO Q6H PRN (Reason: fever or pain) Qty: 30 0RF gabapentin 300 mg capsule 300 mg PO carvedilol 3.125 mg tablet 3.125 mg PO BID furosemide 40 mg tablet 40 mg PO DAILY ergocalciferol (vitamin D2) 1,250 mcg (50,000 unit) capsule 1,250 mcg PO QWEEK hydralazine 50 mg tablet 50 mg PO BID lisinopril 40 mg tablet 40 mg PO DAILY aspirin 81 mg tablet,chewable 1 tab PO DAILY diltiazem HCl 240 mg capsule,extended release 24hr 240 mg PO DAILY hydrochlorothiazide 50 mg tablet 50 mg PO DAILY loratadine [Claritin] 10 mg tablet 10 mg PO DAILY 30 Days Qty: 30 11RF docusate sodium 100 mg capsule 100 mg PO .BID WITH FOOD 30 Days Qty: 60 6RF amitriptyline 100 mg tablet 100 mg PO BEDTIME folic acid 1 mg tablet 1 mg PO DAILY oxycodone-acetaminophen [Percocet] 5-325 mg tablet 1 tab PO BID PRN (Reason: pain) 30 Days Qty: 60 0RF Creon 24,000-76,000 -120,000 unit capsule,delayed release(DR/EC) 1 cap PO QIDACHS 30 Days Qty: 120 6RF Rx Instructions: administer with meals and/or snacks (DME) nebulizers Misc See Rx Instructions .ROUTE Rx Instructions: As directed albuterol sulfate 90 mcg/actuation HFA aerosol inhaler 2 puff inhalation Q4-6H PRN (Reason: shortness of breath or wheezing) Qty: 8.5 0RF fluticasone furoate-vilanterol [Breo Ellipta] 200-25 mcg/dose blister with device 1 ea PO DAILY Qty: 60 11RF Daliresp 500 mcg tablet 500 mcg PO DAILY 30 Days Qty: 30 11RF montelukast 10 mg tablet 10 mg PO DAILY 30 Days Qty: 30 11RF Referrals: Mary Flores MD [Primary Care Provider] - 3 days
[2023-08-13] MEDS: Albuterol Sulfate 2.5 MG, Albuterol/Iprat 2.5/0.5MG 3 ML 3 ML INHALE (11:04)
[2023-08-13 11:06] LABS: Influenza A PCR Detected (Not Detect.); SARS-CoV-2 PCR Not Detected (Not Detect.)
[2023-08-13] MEDS: predniSONE 20 MG TABLET 60 MG PO (11:40)
[2023-08-13] MEDS: Acetaminophen 325 MG TABLET 975 MG PO (11:40)
[2023-08-13] MEDS: Albuterol Sulfate 7.5 MG, Albuterol Sulfate (0.083%) 2.5 MG 10 MG INHALE (12:04)
--- NOTE | 2023-08-13 15:00 | PC.NURSE ---
pt reports improvement in breathing, skin wpd, ls coarse wheezes but improved, eating lunch and improved
[2023-08-13] MEDS: Ibuprofen 600 MG TABLET PO (15:36)
== END 2023-08-13 15:38 | disposition home or self-care (01) ==
PROVIDERS: Physician Assistant Medical; Emergency Provider Emergency Medicine; PCP General Practice
DX: J10.1 Influenza due to other identified influenza virus with other respiratory manifestations (principal); J44.9 Chronic obstructive pulmonary disease, unspecified; I10 Essential (primary) hypertension
CPT/HCPCS: 36415; 71046; 80053; 83735; 84484; 85025; 87633; 93005; 94640; 99284; 99285

== ENCOUNTER → 2023-08-13 06:53 | Outpatient (BNV) | payer OTHER, SELFPAY | PROVIDERS: Emergency Provider Emergency Medicine; PCP General Practice; Visit Provider Internal Medicine Cardiovascular Disease | DX: R06.02 Shortness of breath (principal) | CPT/HCPCS: 93010 ==

== ENCOUNTER 2023-08-26 | Outpatient (REF) | payer OTHER, SELFPAY | END 2023-08-26 00:01 | disposition home or self-care (01) | LOC: CF | PROVIDERS: PCP General Practice; Visit Provider Nurse Practitioner | DX: R10.12 Left upper quadrant pain (principal); K21.9 Gastro-esophageal reflux disease without esophagitis; K59.04 Chronic idiopathic constipation; K58.9 Irritable bowel syndrome, unspecified; K57.32 Diverticulitis of large intestine without perforation or abscess without bleeding; N39.44 Nocturnal enuresis | CPT/HCPCS: 99212 ==

== ENCOUNTER 2023-08-26 13:42 | Outpatient (AMB) | payer OTHER, SELFPAY ==
--- NOTE | 2023-08-26 13:48 | MHC.OFFVIS ---
Intake Vital Signs 08/26/23 13:49 Height 5 ft 3 in Weight 198 lb BMI 35.1 BP 142/73 H Blood Pressure Location Lt brachial Position Sitting Pulse 67 Intake Visit Reasons: pt req appointment Intake Note: Patient follow up for constipation Patient cc: N/V, abdominal pain with bloating, acid reflex with burning sensation, and constipation with hemorrhoids. Also she is complaining about UTI. Planned Giving Officer Required: Yes Planned Giving Officer Name: Boni Morales7 Accompanied by: Spouse Allergies morphine [MORPHINE] Allergy (Intermediate, Verified 08/26/23 13:47) NAUSEA, rash, redness HPI pt req appointment HPI Details Assessment & Plan (1) GERD (gastroesophageal reflux disease): ?Code(s): K21.9 - Gastro-esophageal reflux disease without esophagitis ?Qualifiers: ?Esophagitis presence:?without esophagitis? Qualified Code(s):?K21.9 - Gastro-esophageal reflux disease without esophagitis ?Plan: URDU #[id number] She says she has been feeling well. she did not do the sx log as I had discussed, because she says that the Linzess has resolved her RUQ pain. She also continues on her creon and omeprazole and is now satisfied with her GI regimen. ROV 6 month. (2) Chronic idiopathic constipation: ?Code(s): K59.04 - Chronic idiopathic constipation ? ? ? Medications: Refilled gqlzmq-onkveuat-cm ylase 24,000-76,00 0 -120,000 unit (C reon) ?? administe r with meals and/o r snacks 1 cap? PO QIDACHS 30 days 120 caps 6RF K82.8 - Other spec ified diseases of gallbladder ? TODAY'S VISIT URDU #[id number] She is accompanied by a male relative who is quiet. This pt has been lost to follow up since 2021. She says she has been in [place] for 2 years. She says she has a bad pain that is on the LUQ and does not go away. She says she ahs had this for years, but in the past she had presented with RUQ pain that resolved with LInzess. She is out of her Linzess and her omeprazole and has been out of these for 3 days (unsure who has been refilling this). Since she says she was in [place] I have my doubts as to how accurate her reporting is. The pain starts in her back and is knifelike and it radiates to the front groin. It has not r/t eating or moving her bowels. She does not feel that this is similar to when she had diverticulitis. She also has bad lumbar spinal stenosis and likely thoracic stenosis so back pathology is in the DDX. This is sharla true since the pain starts in the mid back. I have made a list of all her medications to promote compliance. She is due for repeat colonoscopy r/t a large prior TA. She has sleep apnea and asthma that she says is currently well controlled and denies any cardiac problems. There are no prior problems with anesthesia or sedation. There are no infectious disease problems. ROV 2 weeks. 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 Sacroiliitis Disc degeneration, lumbar OTILIO (obstructive sleep apnea) Back pain HTN (hypertension) Skin cancer (melanoma) GERD (gastroesophageal reflux disease) Depression OTILIO (obstructive sleep apnea) Kidney stones Pulmonary nodule Severe asthma Primary osteoarthritis involving multiple joints Pneumonia Chronic allergic rhinitis (~03/09/20) Asthma-COPD overlap syndrome Surgical History History of bronchoscopy History of cystoscopy History of laparoscopic appendectomy History of nasal surgery Hx of section Hx of tubal ligation Hx of colonoscopy History of esophagogastroduodenoscopy (EGD) Hx of knee surgery Family History Father No problems noted. Mother No problems noted. Social History Household Members: Children Housing: Apartment Alcohol intake: never Patient Tobacco Use Status: Never used Tobacco Current occupational status: disabled Current occupation: rt handed Review of Systems Const Denies fatigue, Denies fever(s), Denies night sweats, Denies poor appetite and Denies weight loss ENT Reports Normal hearing present, Denies dental pain, Denies dysphagia, Denies hearing loss, Denies mouth pain, Denies odynophagia, Denies throat swelling, Denies tongue swelling and Reports other (Dentition adequate) Card Reports no additional complaints Resp Reports no additional complaints GI Details: Reports abdominal pain, Denies melena, Denies bloating, Denies hematochezia, Reports constipation, Denies GI cramping, Denies dysphagia, Denies excessive flatus, Denies early satiety, Reports heartburn, Denies diarrhea, Denies nausea, Denies odynophagia, Denies vomiting and Denies hematemesis Musc Reports back pain, Reports arthralgias and Reports stiffness Skin/Breast Denies pruritus, Denies lesions, Denies rash and Denies jaundice Neuro Reports Normal hearing present and Denies Abnormal speech present Endo Denies fatigue Aller/Immun Denies throat swelling and Denies tongue swelling Physical Exam Vital Signs: Last Vital Signs Pulse 67 08/26/23 13:49 BP 142/73 H 08/26/23 13:49 BMI result Body Mass Index 35.1 Const General: cooperative, no acute distress, well developed and well groomed Nutritional Appearance: well nourished and obese Orientation/consciousness: oriented to person, oriented to place and oriented to time Limitations: language barrier HEENT Head: Yes normocephalic and Yes atraumatic Eyes General: appearance normal, both eyes and all related structures Pupils: Equal, round and reactive pupils present Neck Neck: Yes normal visual inspection and Yes no lymphadenopathy Thyroid: Thyroid normal Resp Effort & Inspection: normal respiratory effort and able to speak in complete sentences Auscultation: clear to auscultation bilaterally Cardio Rate: regular rate Rhythm: regular rhythm Heart sounds: Normal, physiologic split S2 sound present Peripheral pulses: radial pulses present and posterior tibial pulses present GI Inspection: No distended, Yes Abdominal panniculus present and Yes obesity Palpation (GI): Soft to palpation, Tenderness to palpation present (GI) in the LLQ, in the LUQ and suprapubicly, no guarding, not rigid and No hepatosplenomegaly present Percussion: Yes normal to percussion Auscultation: normal bowel sounds Rectal Exam - Female: deferred Abdomen image: 1. Surgical scar Skin General skin exam: no rashes or lesions noted, turgor normal, skin not dry, no jaundice, No spider nevi and no striae Rashes: no rashes Nails: normal Neuro General: oriented to person, oriented to place and oriented to time Cranial nerves: Yes Equal, round and reactive pupils present and Yes Normal hearing present Speech: No Abnormal speech present Extrem General: Yes normal to inspection, No clubbing, No cyanosis and No edema Psych Appearance: grossly normal and well kempt Mental Status: mental status grossly normal Speech and movement: Normal speech and movement present Affect: normal affect Attitude: cooperative Thought process: Circumstantial thought process present and not confabulating Thought content: Normal thought content present Insight: Limited insight present (Psych) Judgement: Limited judgement present (Psych) Assessment & Plan Assessment & Plan (1) GERD (gastroesophageal reflux disease): Code(s): K21.9 - Gastro-esophageal reflux disease without esophagitis Qualifiers: Esophagitis presence: without esophagitis Qualified Code(s): K21.9 - Gastro-esophageal reflux disease without esophagitis (2) Chronic idiopathic constipation: Code(s): K59.04 - Chronic idiopathic constipation (3) Spasm of bowel: Code(s): K58.9 - Irritable bowel syndrome without diarrhea (4) Diverticulitis large intestine: Code(s): K57.32 - Diverticulitis of large intestine without perforation or abscess without bleeding (5) LUQ abdominal pain: Code(s): R10.12 - Left upper quadrant pain Plan URDU #[id number] She is accompanied by a male relative who is quiet. This pt has been lost to follow up since 2021. She says she has been in [place] for 2 years. She says she has a bad pain that is on the LUQ and does not go away. She says she ahs had this for years, but in the past she had presented with RUQ pain that resolved with LInzess. She is out of her Linzess and her omeprazole and has been out of these for 3 days (unsure who has been refilling this). Since she says she was in [place] I have my doubts as to how accurate her reporting is. The pain starts in her back and is knifelike and it radiates to the front groin. It has not r/t eating or moving her bowels. She does not feel that this is similar to when she had diverticulitis. She also has bad lumbar spinal stenosis and likely thoracic stenosis so back pathology is in the DDX. This is sharla true since the pain starts in the mid back. I have made a list of all her medications to promote compliance. She is due for repeat colonoscopy r/t a large prior TA. She has sleep apnea and asthma that she says is currently well controlled and denies any cardiac problems. There are no prior problems with anesthesia or sedation. There are no infectious disease problems. ROV 2 weeks. Orders: Orders XR abdomen w decubitus Today R10.12 - Left upper quadrant pain Colonoscopy - GI Use Only Today R10.12 - Left upper quadrant pain XR thoracic spine 2V Today R10.12 - Left upper quadrant pain Medications: New peg 3350-electrolytes 236-22.74-6.74 -5.86 gram (Golytely) until fecal effluent is clear; do not exceed a total volume of 2,000 mL 240 mL PO Q10M 4,000 mL 0RF 1 day Z12.11 - Encounter for screening for malignant neoplasm of colon bisacodyl (Dulcolax (bisacodyl)) 10 mg (2 x 5 mg) PO BEDTIME 4 tabs 0RF 2 days Refilled zxvctx-shifhbxo-ixjyuhc 24,000-76,000 -120,000 unit (Creon) administer with meals and/or snacks 1 cap PO QIDACHS 120 caps 6RF 30 days K82.8 - Other specified diseases of gallbladder omeprazole 20 mg PO DAILY 30 caps 6RF K21.9 - Gastro-esophageal reflux disease without esophagitis imipramine HCl 100 mg (2 x 50 mg) PO BEDTIME 60 tabs 6RF 30 days R10.9 - Unspecified abdominal pain linaclotide (Linzess) 290 mcg PO QAM 30 caps 6RF K59.04 - Chronic idiopathic constipation docusate sodium 100 mg PO .BID WITH FOOD 60 caps 6RF 30 days K59.04 - Chronic idiopathic constipation Patient Instructions: Margarita Flores I Aseg?rese de tener los siguientes medicamentos: 1. Linzess 2. imipramina 3. cola 4. omeprazol Las tabletas de PEG y bisacodilo son para preparaci?n de colonoscopia. He ordenado radiograf?as de tu abdomen por tu dolor, para estas solo vas a radiolog?a cuando tengas tiempo, no programamos esto. Quiero verte en 4 semanas para jean c?mo est?s. Please make sure you have the following medications: 1. Linzess 2. imipramine 3. colace 4. omeprazole the PEG and the bisacodyl tablets are for colonoscopy prep. I have ordered xrays for your abdomen for your pain, for these you just go to radiology when you have time we do not schedule this. I want to see you in 4 weeks to see how you are doing. Coding Level of Care Code Est Pt Level 4 (32354) Diagnoses Gastroesophageal reflux disease without esophagitis K21.9 Esophagitis presence: without esophagitis Chronic idiopathic constipation K59.04 Spasm of bowel K58.9 Diverticulitis large intestine K57.32 LUQ abdominal pain R10.12
[2023-08-26 13:49] VITALS: BP 142/73; PULSE 67; BMI 35.1
== END 2023-08-26 14:29 | disposition home or self-care (01) ==
PROVIDERS: PCP General Practice; Visit Provider Nurse Practitioner
DX: K21.9 Gastro-esophageal reflux disease without esophagitis (principal); K59.04 Chronic idiopathic constipation; K58.9 Irritable bowel syndrome, unspecified; K57.32 Diverticulitis of large intestine without perforation or abscess without bleeding; R10.12 Left upper quadrant pain
CPT/HCPCS: 99214

== ENCOUNTER 2023-09-11 09:19 | Outpatient (REF) | payer OTHER, SELFPAY ==
[2023-09-11 15:27] LABS: CT PCR NOT DETECTED (Not Detect.); NG PCR NOT DETECTED (Not Detect.)
[2023-09-12 09:46] LABS: BV Int Neg Control Negative (Negative); BV Int Pos Control Positive (Positive)
== END 2023-09-11 09:20 | disposition home or self-care (01) ==
LOC: HO.LAB 09:19
PROVIDERS: PCP General Practice; Visit Provider Advanced Practice Midwife
DX: Z01.419 Encounter for gynecological examination (general) (routine) without abnormal findings (principal); Z11.51 Encounter for screening for human papillomavirus (HPV); R10.2 Pelvic and perineal pain; R30.0 Dysuria
CPT/HCPCS: 0353U; 81003; 87480; 87510; 87624; 87660; 88142

== ENCOUNTER 2023-09-11 09:19 | Outpatient (AMB) | payer OTHER, SELFPAY ==
--- NOTE | 2023-09-11 09:24 | MHC.OFFVIS ---
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 present at the visit. She is doing well with concerns: Pain in the vagina, no discharge, +odor. Positive dysuria a week ago. Admits to not eating healthy and does not exercise due to her knee pain. Currently not sexually active. Last pap smear; , history abnormal ASCUS, HPV+, no follow up paps. Last mammogram; 6mo ago in [place]records not available. Colonoscopy is UTD per patient. Denies any family history of breast, ovarian or colon cancer. 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 Sacroiliitis Disc degeneration, lumbar OTILIO (obstructive sleep apnea) Back pain HTN (hypertension) Skin cancer (melanoma) GERD (gastroesophageal reflux disease) Depression OTILIO (obstructive sleep apnea) Kidney stones Pulmonary nodule Severe asthma Primary osteoarthritis involving multiple joints Pneumonia Chronic allergic rhinitis (~03/09/20) Asthma-COPD overlap syndrome Surgical History History of bronchoscopy History of cystoscopy History of laparoscopic appendectomy History of nasal surgery Hx of section Hx of tubal ligation Hx of colonoscopy History of esophagogastroduodenoscopy (EGD) Hx of knee surgery Family History Father No problems noted. Mother No problems noted. Social History Household Members: Children Housing: Apartment Alcohol intake: never Patient Tobacco Use Status: Never used Tobacco Current occupational status: disabled Current occupation: rt handed Female Reproductive History Menstrual Menopause type: natural Total pregnancies: 10 Full term: 8 Number of Living Children: 7 Ab spontaneous: 2 Date of last pap smear: 02/01/19 ([place] neg hpv) History of abnormal pap smear: Yes (8/18 +HPV 05/31 colpo) Date of Mammogram: 09/04/21 (Birad 2) Review of Systems Const All systems reviewed & are unremarkable except as noted in HPI and below Reports as per HPI Eyes Reports no additional complaints ENT Reports no additional complaints Card Reports no additional complaints Resp Reports no additional complaints GI Reports as per HPI and Reports no additional complaints Reports as per HPI Musc Reports no additional complaints Skin/Breast Reports as per HPI Neuro Reports no additional complaints Psych Reports no additional complaints Endo Reports no additional complaints Jefry/Lymph Reports no additional complaints Aller/Immun Reports no additional complaints Physical Exam Vital Signs: Last Vital Signs BP 160/84 H 09/11/23 09:25 BMI result Body Mass Index 37.4 Const General: cooperative, healthy appearing, no acute distress, well developed and alert Orientation/consciousness: patient oriented x3 HEENT Head: Yes normal to inspection Eyes General: appearance normal, both eyes and all related structures Neck Neck: Yes normal visual inspection Thyroid: Thyroid normal Chest Chest palpation & inspection: normal inspection of the chest and other (no puckering, dimpling, peau de orange, retraction, discharge, masses) Breast/axilla inspection: normal inspection of the breasts Breast/axilla palpation: normal palpation of the breasts Resp Effort & Inspection: normal respiratory effort GI Inspection: Yes normal to inspection, Yes obesity and Yes scar Palpation (GI): Soft to palpation Rectal Exam - Female: deferred Other: generalized tenderness throughout entire lower abdomen/pelvis/vagina General: Yes bladder normal to palpation External Female Exam: normal external appearance and normal appearance of the urethra Speculum Exam - Vagina: normal appearance of the vagina, normal palpation, normal vaginal discharge, vagina atrophic (moderate) and tenderness Speculum Exam - Cervix: normal appearance of the cervix and normal palpation Bimanual exam- vagina & uterus: normal bimanual exam, normal palpation, uterine size normal, bladder normal to palpation, normal palpation and Uterine tenderness Bimanual Exam- Adnexa, other: no masses and tender Skin General skin exam: no rashes or lesions noted Rashes: no rashes Neuro General: patient oriented x3 Cognition (Neuro): normal cognition Extrem General: Yes normal to inspection Psych Attitude: cooperative Thought process: Normal thought process present Results AMB Urinalysis, Automated UA Leukoctes 0 Patrick/uL Last Edit by Leatha Cisse [facility] on 09/11/23 10:11 UA Nitrite Negative Last Edit by Leatha Cisse [facility] on 09/11/23 10:11 UA Urobilinogen 0 mg/dL Last Edit by Leatha Cisse [facility] on 09/11/23 10:11 UA Protein 0 mg/dL Last Edit by Leatha Cisse [facility] on 09/11/23 10:11 UA pH 6.0 Last Edit by Leatha Cisse [facility] on 09/11/23 10:11 UA Blood 0.5 Valentín/uL Last Edit by Leatha Cisse [facility] on 09/11/23 10:11 UA Specific [place] 1.025 Last Edit by Leatha Cisse [facility] on 09/11/23 10:11 UA Ketone Negative Last Edit by Leatha Cisse [facility] on 09/11/23 10:11 UA Bilirubin 0 mg/dL Last Edit by Leatha Cisse [facility] on 09/11/23 10:11 UA Glucose 0 mg/dL Last Edit by Leatha Cisse [facility] on 09/11/23 10:11 Results Reviewed Results Reviewed: Laboratory Last Values Urine pH (Auto) 6.0 09/11/23 10:05 Specific [place] (Auto) 1.025 09/11/23 10:05 Urine Protein (Auto) 0 mg/dL 09/11/23 10:05 Glucose (UA)(Auto) 0 mg/dL 09/11/23 10:05 Urine Ketones (Auto) Negative 09/11/23 10:05 Urine Blood (Auto) 0.5 Valentín/uL 09/11/23 10:05 Urine Nitrite (Auto) Negative 09/11/23 10:05 Urine Bilirubin (Auto) 0 mg/dL 09/11/23 10:05 Urine Urobilinogen (Auto) 0 mg/dL 09/11/23 10:05 Leukocyte Esterase (Auto) 0 Patrick/uL 09/11/23 10:05 Assessment & Plan Assessment & Plan (1) Encounter for well woman exam with routine gynecological exam: Code(s): Z01.419 - Encounter for gynecological examination (general) (routine) without abnormal findings (2) Vaginal pain: Code(s): R10.2 - Pelvic and perineal pain (3) Dysuria: Code(s): R30.0 - Dysuria (4) Pelvic pain: Code(s): R10.2 - Pelvic and perineal pain Plan Discussed: Current recommendations for pap smears per ASCCP guidelines. Breast awareness, periodic self breast exams and yearly mammogram. Maintain a healthy lifestyle, well balanced diet including Calcium 1,200 mg and Vitamin D 600 IU daily, and routine exercise. Contact the office with any postmenopausal bleeding. Workup for pelvic pain including a pelvic ultrasound, GC chlamydia, BV, urinalysis-urine culture. Advised if any increase in pain to report to the emergency room, use [id number] Tylenol and/or a heating pad for mild discomfort. Schedule follow up office visit for test results and plan of care pending the ultrasound exam. She is agreeable to the plan of care. Patient verbalizes understanding and agrees to the plan of care. She was given opportunity to ask questions and all questions were answered to the best of my ability. 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 This note is constructed using voice recognition software. While every effort has been made to ensure accuracy, graphic engineer errors may have been included. Orders: Orders US pelvic and transvaginal Today R10.2 - Pelvic and perineal pain AMB Urinalysis Automated Today R10.2 - Pelvic and perineal pain, R30.0 - Dysuria Bacterial Vaginosis Panel Today R10.2 - Pelvic and perineal pain CT NG by PCR Today R10.2 - Pelvic and perineal pain Pap Smear Today Z01.419 - Encounter for gynecological examination (general) (routine) without abnormal findings Coding Level of Care Code New Pt Prev Care >65yr (95825) Diagnoses Encounter for well woman exam with routine gynecological exam Z01.419 Vaginal pain R10.2 Dysuria R30.0 Pelvic pain R10.2
[2023-09-11 09:25] VITALS: BP 160/84; BMI 37.4
== END 2023-09-11 10:13 | disposition home or self-care (01) ==
LOC: HO.HWS 09:19
PROVIDERS: PCP General Practice; Visit Provider Advanced Practice Midwife
DX: Z01.419 Encounter for gynecological examination (general) (routine) without abnormal findings (principal); R10.2 Pelvic and perineal pain; R30.0 Dysuria
CPT/HCPCS: 99387

== ENCOUNTER 2023-09-11 10:05 | Outpatient (REF) | payer OTHER, SELFPAY ==
[2023-09-18 03:37] LABS: HPV mRNA E6/E7 rflx Not Detected (Not Detected)
== END 2023-09-11 10:06 | disposition home or self-care (01) ==
LOC: HO.LNP 10:05
PROVIDERS: Visit Provider Advanced Practice Midwife
DX: Z13.89 Encounter for screening for other disorder (principal)
CPT/HCPCS: 87624; 88142

== ENCOUNTER 2023-09-18 09:43 | Outpatient (AMB) | payer OTHER, SELFPAY ==
[2023-09-18 10:07] VITALS: PULSE 80; O2SAT 94; BMI 37.4
--- NOTE | 2023-09-18 10:07 | MHC.OFFVIS ---
Vital Signs 09/18/23 10:07 Height 5 ft 3 in Weight 210 lb 15.718 oz BMI 37.4 Pulse 80 Pulse Source Pulse Oximeter Pulse Oximetry (%) 94 Oxygen Delivery Method Room Air Intake Visit Reasons: Asthma Invisible Braces Orthodontist Required: No Allergies morphine [MORPHINE] Allergy (Intermediate, Verified 09/18/23 10:09) NAUSEA, rash, redness HPI Comments Details: The patient is a 73-year-old woman known asthma. Recently had a CT scan of the abdomen demonstrating hiatal hernia as well. She continues to be on her respiratory regimen which includes Trelegy and also budesonide nebs and albuterol nebs. She had also takes her allergy medicine including singular. Recently she could not find her singular medication nguyen and she has noticed that her respiratory symptoms are getting worse. The patient also has cough. Moderate severity. Tends to be dry. We did talk about the reflux diet. Is going to try to follow it closely. She was slow to improve had a CT scan done again demonstrating airspace disease in the left base. She did undergo bronchoscopy with significant mucus burden status post therapeutic bronchoscopy. The patient is here for pulmonary follow-up visit. She continues to have significant shortness of breath. Moderate severity. She also complains of cough. She has also noticed lower extremity edema. She did follow-up with her primary care doctor regarding that. She is concerned that she may have had the COVID-19 infection back when she was in the hospital. At this point we can check her antibodies. Was likely she does have the flu. However, was complicated by postviral pneumonia mainly affecting her left lower lobe. She did undergo bronchoscopy. Still on examination she is not opening up the left base well. Will plan to repeat the chest x-ray. Her blood work also demonstrated significant eosinophilia. She does have severe persistent asthma and may benefit from biologic therapy if she is no better. 03/09/2020 the patient is here for pulmonary follow-up visit. She feels her asthma is been more active. She has been using her nebulizer twice or 3 times a day. She has been using her allergy medicine as well. However for some reason she does not have any further maintenance inhalers. Therefore we have to optimize her respiratory therapy at this time. She is concerned because he was hospitalized with pneumonia and required bronchoscopy several months ago. At this point I reassured her her lungs sound consistent with wheezing and asthma and no evidence of any pneumonia at this time. Therefore we will optimize respiratory therapy and she will call if she is no better in order to give her some prednisone. 09/28/2020 the patient is here for pulmonary follow-up visit. For the last spoke she went to the ER because she was having left-sided chest discomfort. Her workup was unremarkable. She was sent home with supportive care. In the meantime she did undergo blood work with a normal IgE in a normal eosinophil level. Therefore she likely has non allergic asthma. For she has significant chest congestion and significant flares. Therefore, will be reasonable to treated for chronic bronchitis with Daliresp. Patient has been taking prednisone often. I am hopeful that the Daliresp the symptoms she can tolerate and decrease her prednisone use. 11/23/2020 the patient is here for a pulmonary follow-up visit. Overall the patient has been doing a little better. She has been responding well to the Daliresp. She still complains of chest congestion chest tightness and wheezing. [id number]-lylprofb severity. She continues to use her respiratory medication as prescribed. We did review her last CT scan of the chest which was more than a year ago demonstrating subcentimeter pulmonary nodule. The patient will need a follow-up CT scan to make sure that the nodular density has not progressed. Specially with her ongoing symptoms. We will optimize her respiratory therapy further by increasing the Daliresp. Monitor for any adverse effects. Will follow up after the CT scan. 12/29/2020 the patient is here for pulmonary follow-up visit. She continues to complaint of worsening cough and chest congestion. She has not been feeling well. Her back is also on comfortable. She continues use her respiratory therapy. Only providing partial response. She has been using her nebulizer more often. She does tolerate Daliresp and she is taking the full dose of 500 mcg at this time. The patient likely has a lower respiratory infection. Therefore will start her on antibiotics to see if we can clear that chest congestion. Prior to getting sick the patient did have a CT scan of the chest that I personally review with her. Apparently she was not having any symptoms the end of November when she had a CT scan. She had a very stable looking CT scan with a calcified nodular density that is a granuloma and not concerning and she did have some atelectasis to the and lingula. But otherwise no other significant findings on the CT scan. 02/27/2021 the patient is here for a pulmonary follow-up visit. She is complaining of worsening shortness of breath specially at nighttime when she lays flat. She is also complaining of back and left-sided chest discomfort. I will cycle radiating discomfort. She has been having significant back pain and recently she did undergo a MRI of her lumbar spine. She is still waiting for those results. In the meantime she has been noticing increasing shortness of breath when she lays flat. She also has lower extremity edema and has gained some weight. The patient does snore. She has had episodes of sleep apnea. In addition to that is been documented by has been. She does wake up tired with headaches. At this point assessing for sleep apnea will be helpful. She also has a family history of sleep apnea. In addition to that we will reassess her cardiac status per she will continue with the current respiratory medications. She needs to continue with Daliresp. She also has had a congested cough and I will send her some antibiotics for that will follow in a couple months to review the results and her response to therapy. 07/31/2021 the patient is here for a pulmonary follow-up visit. She continues to have significant daytime drowsiness. Her Gibson score is elevated 11/24. Her son brought in a recording of her significant snoring. He is also concerned because she stops breathing at nighttime. The patient does have cardiovascular risk factors. She did undergo a home sleep study with an AHI of approximately 6. She has mild sleep apnea but she is very symptomatic and along with cardiovascular risk factors the patient should start CPAP therapy at this time. I will make arrangements with local [employer] company in order to do so. Patient continues with current respiratory regimen. She has no longer really using the nebulized therapy. She has not had to use her rescue inhaler either. However she does continue on the Breo and also on the Daliresp and Incruse. The patient will get a [employer] company to provide her with a APAP. I have her come back in 4 months with her APAP in order to review her progress. I do believe that she is going to do very good on it. 10/15/2021 the patient is here for a pulmonary follow-up visit. Overall the patient has been doing well. Although now with the spring season she has had episodes of significant shortness of breath and chest tightness and wheezing. She has had to use her nebulizer numerous times. She has not required any prednisone as of yet. Regards to the CPAP she has been tolerating it well. The CPAP therapy continues to be affecting beneficial. However, she feels her mask is to Transfer and also feels that she is not getting adequate supplies from her [employer] company. I did call the [employer] company to the note to make sure they have a Armenian speaking dental sales representative to call her in order for her to get supplies. In the meantime I did have a smaller F 20 mask small that she tried in the office and she has tolerated well. I am hopeful that this will be a better fit for her. While also sent a script to her [employer] company in order for her to get this mask. If she has a difficulty time that this mass is to call the office we can not change the mask or sent a new script to the [employer]. On examination she does have some wheezing. she is currently not on any prednisone. If her symptoms worsen she may need to start prednisone. I am hoping that she is able to improved just with the nebulized therapy and her maintenance therapy. The patient is already using allergy therapy. 11/29/2021 the patient is here for a pulmonary follow-up visit. Overall the patient has been doing well. Her asthma seems to be in good control. She continues use respiratory therapy. She did bring her CPAP. Her AHI it is less than 1. CPAP therapy has been very affecting beneficial. She does use it for more than 4 hours a night. However, she still struggling with the mask. She was sent over a medium F20 mask. However, she needs small. I did have a small liner which she will be able to take home in order to continue using. I will resend the prescription to the [employer] with the size of the mask again. The [employer] did call her but she does not speak fluent Serbian. 07/26/2022 the patient is here for a pulmonary follow-up visit. Overall the patient has been doing well. Her asthma seems to be in good control. She continues use respiratory therapy. Has not required any prednisone. She continues to use her CPAP 4 hours a night. The CPAP has been effective and beneficial. We did review her last CXR with left basilar atelectasis. We will have her repeat the CXR at this time. She will continue with her respiratory therapy and work on deep breathing exercises. 07/15/2023 the patient is here for a pulmonary follow-up visit. Patient overall has been feeling a little bit worse from her asthma. She has been sometime in [place] her asthma was good. However when she made back to this state she started developing again to tightness and wheezing. unfortunately, her nebulizer fell and broke and is no longer working. She needs have a functional nebulizer in view of her severe persistent asthma. will go ahead and order a new nebulizer replacement for the patient at this time. In the meantime she has been having hard time with her CPAP because she has not been getting supplies. I have explained to her that based on the fact that she has not using it the insurance will cover for any supplies. Therefore, she is going to start using at this time. Will review the use with the next download. 09/18/2023 the patient is here for a pulmonary follow-up visit. She unfortunately developed worsening respiratory symptoms. She did go to the hospital she was diagnosed with influenza A. She went to the hospital twice after that with worsening respiratory symptoms cough wheezing chest tightness. She was given prednisone multiple times. The patient was not admitted to the hospital. Her chest x-ray was clear. She still continues to complain of shortness of breath. Even with minimal activity moderate severity. Also complains of some chest congestion. She has been using her nebulizer treatments in addition to her respiratory medications and now she ran out. I will make sure to supply of the medication pharmacy. The patient also will be treated for postviral bacterial infection and also still having wheezing on examination so therefore will place her on a small dose of prednisone that she can taper down slowly to try to improve her respiratory symptoms. If the patient is no better she would come in for chest x-ray. She also struggling with her CPAP. Her CPAP supplies have not been recieved. We did request supplies from the [employer] during the last visit. Will call the DME again. Also she needs a nebulizer replacement that we requested during her last visit. 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 Sacroiliitis Disc degeneration, lumbar OTILIO (obstructive sleep apnea) Back pain HTN (hypertension) Skin cancer (melanoma) GERD (gastroesophageal reflux disease) Depression OTILIO (obstructive sleep apnea) Kidney stones Pulmonary nodule Severe asthma Primary osteoarthritis involving multiple joints Pneumonia Chronic allergic rhinitis (~03/09/20) Asthma-COPD overlap syndrome Surgical History History of bronchoscopy History of cystoscopy History of laparoscopic appendectomy History of nasal surgery Hx of section Hx of tubal ligation Hx of colonoscopy History of esophagogastroduodenoscopy (EGD) Hx of knee surgery Family History Father No problems noted. Mother No problems noted. Social History Household Members: Children Housing: Apartment Alcohol intake: never Patient Tobacco Use Status: Never used Tobacco Current occupational status: disabled Current occupation: rt handed Review of Systems Const Denies daytime sleepiness, Reports fatigue, Denies stops breathing during sleep and Reports weight gain Eyes Denies change in vision ENT Reports Normal hearing present Card Reports dyspnea Resp Reports chest congestion, Reports cough, Reports dyspnea and Reports wheezing Musc Reports back pain Neuro Reports Normal hearing present and Denies Abnormal speech present Endo Reports fatigue Aller/Immun Reports wheezing Physical Exam Vital Signs: Last Vital Signs Pulse 80 09/18/23 10:07 Pulse Ox 94 09/18/23 10:07 Oxygen Delivery Method Room Air 09/18/23 10:07 BMI result Body Mass Index 37.4 Const General: alert Neck Neck: Yes normal visual inspection, Yes full ROM and Yes no lymphadenopathy Chest Chest palpation & inspection: normal inspection of the chest Resp Effort & Inspection: normal respiratory effort and prolonged expiratory phase Auscultation: rhonchi, wheezes and diminished lung sounds Cardio Rate: regular rate Rhythm: regular rhythm Heart sounds: S1 normal heart sound present and S2 normal heart sound present GI Palpation (GI): Soft to palpation and nontender Auscultation: normal bowel sounds Skin General skin exam: rashes and/or lesions noted Neuro Cranial nerves: Yes Normal hearing present Speech: No Abnormal speech present Assessment & Plan Assessment & Plan (1) Asthma-COPD overlap syndrome: Code(s): J44.9 - Chronic obstructive pulmonary disease, unspecified Category: Medical (2) Severe asthma: Code(s): J45.909 - Unspecified asthma, uncomplicated Category: Medical Qualifiers: Asthma complication type: uncomplicated Asthma persistence: persistent Qualified Code(s): J45.50 - Severe persistent asthma, uncomplicated (3) OTILIO (obstructive sleep apnea): Code(s): G47.33 - Obstructive sleep apnea (adult) (pediatric) Category: Medical (4) Pulmonary nodule: Code(s): R91.1 - Solitary pulmonary nodule Category: Medical (5) GERD (gastroesophageal reflux disease): Code(s): K21.9 - Gastro-esophageal reflux disease without esophagitis Category: Medical Qualifiers: Esophagitis presence: without esophagitis Qualified Code(s): K21.9 - Gastro-esophageal reflux disease without esophagitis (6) Atelectasis of left lung: Code(s): J98.11 - Atelectasis Category: Medical Plan Start Doxycycline Start prednisone 10mg x 10 days, then 5mg x 10 days cough medicine as needed Continue APAP, needs F20 small mask, needs supplies continue Daliresp 500mg daily Continue Breo continue Spiriva JOHANA as needed Needs a replacement nebulizer to administer her albuterol Continue Claritin, sinngulair F/U 6-8 months Medications: New codeine-guaifenesin 10-100 mg/5 mL 5 mL PO Q6H PRN 150 mL 0RF cough 10 days doxycycline monohydrate 100 mg PO BID 28 tabs 0RF 14 days prednisone 10 mg PO DAILY 30 tabs 1RF 30 days Coding Level of Care Code Est Pt Level 4 (18991) Diagnoses Asthma-COPD overlap syndrome J44.9 Severe persistent asthma without complication J45.50 Asthma complication type: uncomplicated Asthma persistence: persistent OTILIO (obstructive sleep apnea) G47.33 Pulmonary nodule R91.1 Gastroesophageal reflux disease without esophagitis K21.9 Esophagitis presence: without esophagitis Atelectasis of left lung J98.11 Time Spent (min) 17
== END 2023-09-18 10:31 | disposition home or self-care (01) ==
PROVIDERS: PCP General Practice; Visit Provider Hospitalist
DX: J44.9 Chronic obstructive pulmonary disease, unspecified (principal); J45.50 Severe persistent asthma, uncomplicated; G47.33 Obstructive sleep apnea (adult) (pediatric); R91.1 Solitary pulmonary nodule; K21.9 Gastro-esophageal reflux disease without esophagitis; J98.11 Atelectasis
CPT/HCPCS: 99214

== ENCOUNTER → 2023-09-18 09:43 | Outpatient (BNVA) | payer OTHER, SELFPAY | PROVIDERS: PCP General Practice; Visit Provider Hospitalist | DX: J44.9 Chronic obstructive pulmonary disease, unspecified (principal); J45.50 Severe persistent asthma, uncomplicated; G47.33 Obstructive sleep apnea (adult) (pediatric); R91.1 Solitary pulmonary nodule; K21.9 Gastro-esophageal reflux disease without esophagitis; J98.11 Atelectasis | CPT/HCPCS: 99212 ==

== ENCOUNTER 2023-09-22 09:56 | Outpatient (REF) | payer OTHER, SELFPAY ==
--- NOTE | ~2023-09-22 | XR_ITS ---
EXAMINATION: Right and left knees x-ray. CLINICAL INFORMATION: Bilateral knee pain COMPARISON: Left knee x-ray on 01/24/2021, bilateral knee x-rays on 09/07/2020 TECHNIQUE: 3 view X-rays of right and left knees FINDINGS: BONES: Bony structures are intact. Prominent sharp osteophytes are seen in left lateral femoral condyle, lateral tibial plateau, superior border of left patella. There is no focal bone destruction or periosteal reaction seen. JOINTS: Alignment of joints is normal. There are mild decrease in medial compartment right knee joint space, marked decrease in lateral compartment left knee joint space. SOFT TISSUE: Left suprapatellar fat pad shows increase in density. No radiopaque foreign body or abnormal air collection is seen. XR/XR knee RT 3V IMPRESSION: 1. Persistent mild medial compartment right tibiofemoral joint osteoarthritis. 2. Interval development of marked lateral compartment left tibiofemoral joint and moderate left patellofemoral joint osteoarthritis, left knee effusion. 3. Unchanged no fracture or dislocation in bilateral knees.
--- NOTE | ~2023-09-22 | XR_ITS ---
EXAMINATION: Right and left knees x-ray. CLINICAL INFORMATION: Bilateral knee pain COMPARISON: Left knee x-ray on 01/24/2021, bilateral knee x-rays on 09/07/2020 TECHNIQUE: 3 view X-rays of right and left knees FINDINGS: BONES: Bony structures are intact. Prominent sharp osteophytes are seen in left lateral femoral condyle, lateral tibial plateau, superior border of left patella. There is no focal bone destruction or periosteal reaction seen. JOINTS: Alignment of joints is normal. There are mild decrease in medial compartment right knee joint space, marked decrease in lateral compartment left knee joint space. SOFT TISSUE: Left suprapatellar fat pad shows increase in density. No radiopaque foreign body or abnormal air collection is seen. XR/XR knee LT 3V IMPRESSION: 1. Persistent mild medial compartment right tibiofemoral joint osteoarthritis. 2. Interval development of marked lateral compartment left tibiofemoral joint and moderate left patellofemoral joint osteoarthritis, left knee effusion. 3. Unchanged no fracture or dislocation in bilateral knees.
== END 2023-09-22 09:57 | disposition home or self-care (01) ==
LOC: HO.HOSX 09:56
PROVIDERS: Visit Provider Orthopaedic Surgery
DX: M17.12 Unilateral primary osteoarthritis, left knee (principal); M25.561 Pain in right knee
CPT/HCPCS: 20610; 73562; 99212; J0665; J1100

== ENCOUNTER 2023-09-22 10:16 | Outpatient (AMB) | payer OTHER, SELFPAY ==
--- NOTE | 2023-09-22 10:19 | MHC.OFFVIS ---
Vital Signs 09/22/23 10:31 Height 5 ft 3 in Weight 210 lb BMI 37.2 Intake Visit Reasons: OV - Bilateral Knee Pain Intake Note: Margarita is a 73 year old female who presents today for a follow up of her bilateral knee OA, she was last seen in 2021 where she was going to move forward with a Left TKA, Patient was booked for surgery but chose to cancel. Allergies morphine [MORPHINE] Allergy (Intermediate, Verified 09/23/23 15:17) NAUSEA, rash, redness HPI HPI OV - Bilateral Knee Pain: Details: This is a 73-year-old woman with left knee osteoarthritis. She had been scheduled for surgery but had to cancel due to personal reasons and medical comorbidities. She comes in today complaining of severe pain in her left knee. She is noted increased swelling. [facility] Medical History Atelectasis of left lung Chronic pain syndrome 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 Sacroiliitis Disc degeneration, lumbar OTILIO (obstructive sleep apnea) Back pain HTN (hypertension) Skin cancer (melanoma) GERD (gastroesophageal reflux disease) Depression OTILIO (obstructive sleep apnea) Kidney stones Pulmonary nodule Severe asthma Primary osteoarthritis involving multiple joints Pneumonia Chronic allergic rhinitis (~03/09/20) Asthma-COPD overlap syndrome Surgical History History of bronchoscopy History of cystoscopy History of laparoscopic appendectomy History of nasal surgery Hx of section Hx of tubal ligation Hx of colonoscopy History of esophagogastroduodenoscopy (EGD) Hx of knee surgery Family History Father No problems noted. Mother No problems noted. Social History Household Members: Children Housing: Apartment Alcohol intake: never Patient Tobacco Use Status: Never used Tobacco Current occupational status: disabled Current occupation: rt handed Physical Exam Vital Signs: BMI result Body Mass Index 37.2 Const General: no acute distress, alert and awake Orientation/consciousness: patient oriented x3 HEENT Head: Yes normocephalic and Yes atraumatic Eyes EOM: EOMs intact bilaterally Resp Effort & Inspection: normal respiratory effort and able to speak in complete sentences Cardio Jugular venous distension: no JVD Skin General skin exam: turgor normal Rashes: no rashes Neuro General: patient oriented x3 Extrem Other: Left Knee: Valgus pattern osteoarthritis left knee with an antalgic gait and tenderness to palpation over the lateral and anterolateral left knee. Moderate effusion. 5-125 degrees of motion. Psych Appearance: grossly normal Affect: normal affect Attitude: cooperative Office Procedures Joint Injection/Drain Joint Injection/Drain Details: Injected 1 mL of Decadron and 3 mL 1% lidocaine and 3 mL of 0.25% Marcaine. Site was prepped using aseptic technique. Patient tolerated the procedure well. Primary Site: left knee Approach Used: anterolateral Coding - Large joint Procedure code (CPT) selection complete Assessment & Plan Assessment & Plan (1) Osteoarthritis of left knee: Code(s): M17.12 - Unilateral primary osteoarthritis, left knee Category: Medical Plan: I injected her left knee today. She has severe arthritis but is not positioned undergo surgery. I would like to see her back in 3 months. Orders: Orders XR knee RT 3V 09/22/23 M25.561 - Pain in right knee XR knee LT 3V 09/22/23 M25.562 - Pain in left knee Coding Level of Care Code Est Pt Level 4 (63460) Diagnoses Osteoarthritis of left knee M17.12 CPT Codes Coding - Large joint: 56626 - Large joint ([id number])
[2023-09-22 10:31] VITALS: BMI 37.2
== END 2023-09-22 11:18 | disposition home or self-care (01) ==
PROVIDERS: PCP General Practice; Visit Provider Orthopaedic Surgery
DX: M17.12 Unilateral primary osteoarthritis, left knee (principal)
CPT/HCPCS: 20610; 99214

== ENCOUNTER 2023-09-23 15:04 | Outpatient (REF) | payer OTHER, SELFPAY ==
--- NOTE | ~2023-09-23 | XR_ITS ---
EXAMINATION: XR ABDOMEN WITH DECUBITUS VIEWS CLINICAL INDICATION: Left upper quadrant pain COMPARISON: None available. TECHNIQUE: AP supine and upright views of the abdomen FINDINGS: There is no free air under the diaphragm. The bowel gas pattern is normal with no evidence of ileus or obstruction. No unusual soft tissue calcifications are noted. There is elongation of the right lobe of the liver which can be seen with a Bing's lobe, a normal variant. Surgical clips are seen in the left side of the pelvis. No acute osseous abnormality. XR/XR abdomen w decubitus IMPRESSION: 1. Nonobstructive bowel gas pattern. 2. No free air under the diaphragm.
--- NOTE | ~2023-09-23 | XR_ITS ---
EXAMINATION: XR THORACOLUMBAR SPINE CLINICAL INFORMATION: Left upper quadrant pain COMPARISON: Thoracic spine 10/10/2020 TECHNIQUE: 3 views of the thoracic spine FINDINGS: There is mild curve of the thoracic spine, convex right. No intrinsic bony abnormality. There is multilevel disc space narrowing with marginal osteophyte formation. The endplates and posterior elements are normal. No fracture or subluxation. The surrounding prevertebral soft tissues are unremarkable. XR/XR thoracic spine 2V IMPRESSION: 1. Mild curve of the thoracic spine, convex right. 2. No acute bony abnormality.
== END 2023-09-23 15:05 | disposition home or self-care (01) ==
LOC: HO.XRAY 15:04
PROVIDERS: PCP General Practice; Visit Provider Nurse Practitioner
DX: R10.12 Left upper quadrant pain (principal); K59.04 Chronic idiopathic constipation; K82.8 Other specified diseases of gallbladder; K21.9 Gastro-esophageal reflux disease without esophagitis; R10.9 Unspecified abdominal pain; Z12.11 Encounter for screening for malignant neoplasm of colon; K58.9 Irritable bowel syndrome, unspecified
CPT/HCPCS: 72070; 74021; 99212

== ENCOUNTER 2023-09-23 15:04 | Outpatient (AMB) | payer OTHER, SELFPAY ==
--- NOTE | 2023-09-23 15:15 | MHC.OFFVIS ---
Vital Signs 09/23/23 15:16 Height 5 ft 3 in Weight 198 lb 13.711 oz BMI 35.2 BP 129/70 Blood Pressure Location Lt brachial Position Sitting Pulse 75 Intake Visit Reasons: 4 wk follow up Intake Note: Margarita presents to in office visit today in follow up of [facility]. CC: Patient c/o stabbing abdominal pain, with radiation to her back and lower abdomen. She also c/o constipation, and nausea. Box Order Person Required: Yes Box Order Person Name: [id number] Nathan Accompanied by: Family/Other Allergies morphine [MORPHINE] Allergy (Intermediate, Verified 09/23/23 15:17) NAUSEA, rash, redness HPI HPI 4 wk follow up: Details: Assessment & Plan (1) GERD (gastroesophageal reflux disease): Code(s): K21.9 - Gastro-esophageal reflux disease without esophagitis Qualifiers: Esophagitis presence: without esophagitis Qualified Code(s): K21.9 - Gastro-esophageal reflux disease without esophagitis (2) Chronic idiopathic constipation: Code(s): K59.04 - Chronic idiopathic constipation (3) Spasm of bowel: Code(s): K58.9 - Irritable bowel syndrome without diarrhea (4) Diverticulitis large intestine: Code(s): K57.32 - Diverticulitis of large intestine without perforation or abscess without bleeding (5) LUQ abdominal pain: Code(s): R10.12 - Left upper quadrant pain Plan [facility] #[id number] She is accompanied by a male relative who is quiet. This pt has been lost to follow up since 2021. She says she has been in [place] for 2 years. She says she has a bad pain that is on the LUQ and does not go away. She says she ahs had this for years, but in the past she had presented with RUQ pain that resolved with LInzess. She is out of her Linzess and her omeprazole and has been out of these for 3 days (unsure who has been refilling this). Since she says she was in [place] I have my doubts as to how accurate her reporting is. The pain starts in her back and is knifelike and it radiates to the front groin. It has not r/t eating or moving her bowels. She does not feel that this is similar to when she had diverticulitis. She also has bad lumbar spinal stenosis and likely thoracic stenosis so back pathology is in the DDX. This is sharla true since the pain starts in the mid back. I have made a list of all her medications to promote compliance. She is due for repeat colonoscopy r/t a large prior TA. She has sleep apnea and asthma that she says is currently well controlled and denies any cardiac problems. There are no prior problems with anesthesia or sedation. There are no infectious disease problems. ROV 2 weeks. Orders: Orders XR abdomen w decubitus Today R10.12 - Left upper quadrant pain Colonoscopy - GI Use Only Today R10.12 - Left upper quadrant pain XR thoracic spine 2V Today R10.12 - Left upper quadrant pain Medications: New peg 3350-electrolytes 236-22.74-6.74 -5.86 gram (Golytely) until fecal effluent is clear; do not exceed a total volume of 2,000 mL 240 mL PO Q10M 4,000 mL 0RF 1 day Z12.11 - Encounter for screening for malignant neoplasm of colon bisacodyl (Dulcolax (bisacodyl)) 10 mg (2 x 5 mg) PO BEDTIME 4 tabs 0RF 2 days Refilled [id number] 24,000-76,000 -120,000 unit (Creon) administer with meals and/or snacks 1 cap PO QIDACHS 120 caps 6RF 30 days K82.8 - Other specified diseases of gallbladder omeprazole 20 mg PO DAILY 30 caps 6RF K21.9 - Gastro-esophageal reflux disease without esophagitis imipramine HCl 100 mg (2 x 50 mg) PO BEDTIME 60 tabs 6RF 30 days R10.9 - Unspecified abdominal pain linaclotide (Linzess) 290 mcg PO QAM 30 caps 6RF K59.04 - Chronic idiopathic constipation docusate sodium 100 mg PO .BID WITH FOOD 60 caps 6RF 30 days K59.04 - Chronic idiopathic constipation Patient Instructions: Margarita Flores I Aseg?rese de tener los siguientes medicamentos: 1. Linzess 2. imipramina 3. cola 4. omeprazol Las tabletas de PEG y bisacodilo son para preparaci?n de colonoscopia. He ordenado radiograf?as de tu abdomen por tu dolor, para estas solo vas a radiolog?a cuando tengas tiempo, no programamos esto. Quiero verte en 4 semanas para jean c?mo est?s. Please make sure you have the following medications: 1. Linzess 2. imipramine 3. colace 4. omeprazole the PEG and the bisacodyl tablets are for colonoscopy prep. I have ordered xrays for your abdomen for your pain, for these you just go to radiology when you have time we do not schedule this. I want to see you in 4 weeks to see how you are doing. X-ray of the abdomen and thoracic spine Not obtained Colonoscopy Scheduled for 12/10/2023 TODAY'S VISIT [facility] #[id number] Rickie She is here with 2 male family members who are quiet but supportive Her pain is the same, but she did not go for the xrays. She also is not moving her bowels well despite LInzess, so adding bisacodyl 2 tabs qhs. 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 I want to bring all of her medications to her next visit so I can confirm or straighten this out as that would be too much of the same medication. 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 Sacroiliitis Disc degeneration, lumbar OTILIO (obstructive sleep apnea) Back pain HTN (hypertension) Skin cancer (melanoma) GERD (gastroesophageal reflux disease) Depression OTILIO (obstructive sleep apnea) Kidney stones Pulmonary nodule Severe asthma Primary osteoarthritis involving multiple joints Pneumonia Chronic allergic rhinitis (~03/09/20) Asthma-COPD overlap syndrome Surgical History History of bronchoscopy History of cystoscopy History of laparoscopic appendectomy History of nasal surgery Hx of section Hx of tubal ligation Hx of colonoscopy History of esophagogastroduodenoscopy (EGD) Hx of knee surgery Family History Father No problems noted. Mother No problems noted. Social History Household Members: Children Housing: Apartment Alcohol intake: never Patient Tobacco Use Status: Never used Tobacco Current occupational status: disabled Current occupation: rt handed Review of Systems Const Denies fatigue, Denies fever(s), Denies night sweats, Denies poor appetite and Denies weight loss ENT Reports Normal hearing present, Denies dental pain, Denies dysphagia, Denies hearing loss, Denies mouth pain, Denies odynophagia, Denies throat swelling, Denies tongue swelling and Reports other (Dentition adequate) Card Reports no additional complaints Resp Reports no additional complaints GI Details: Reports abdominal pain, Denies melena, Reports bloating, Denies hematochezia, Reports constipation, Denies GI cramping, Denies dysphagia, Denies excessive flatus, Denies early satiety, Reports heartburn, Denies diarrhea, Denies nausea, Denies odynophagia, Denies vomiting and Denies hematemesis Skin/Breast Denies pruritus, Denies lesions, Denies rash and Denies jaundice Neuro Reports Normal hearing present and Denies Abnormal speech present Endo Denies fatigue Aller/Immun Denies throat swelling and Denies tongue swelling Physical Exam Vital Signs: Last Vital Signs Pulse 75 09/23/23 15:16 BP 129/70 09/23/23 15:16 BMI result Body Mass Index 35.2 Const General: cooperative, no acute distress, well developed and well groomed Nutritional Appearance: well nourished and obese morbidly obese Orientation/consciousness: oriented to person, oriented to place and oriented to time Limitations: language barrier and other limitations (Educational) HEENT Head: Yes normocephalic and Yes atraumatic Eyes General: appearance normal, both eyes and all related structures Pupils: Equal, round and reactive pupils present Neck Neck: Yes normal visual inspection and Yes no lymphadenopathy Thyroid: Thyroid normal Resp Effort & Inspection: normal respiratory effort and able to speak in complete sentences Auscultation: clear to auscultation bilaterally Cardio Rate: regular rate Rhythm: regular rhythm Heart sounds: Normal, physiologic split S2 sound present Peripheral pulses: radial pulses present and posterior tibial pulses present GI Inspection: No distended, Yes Abdominal panniculus present and Yes obesity Palpation (GI): Soft to palpation, Tenderness to palpation present (GI) in the LUQ, no guarding, not rigid and No hepatosplenomegaly present Percussion: Yes normal to percussion Auscultation: normal bowel sounds Rectal Exam - Female: deferred Skin General skin exam: no rashes or lesions noted, turgor normal, skin not dry, no jaundice, No spider nevi and no striae Rashes: no rashes Nails: normal Neuro General: oriented to person, oriented to place and oriented to time Cranial nerves: Yes Equal, round and reactive pupils present and Yes Normal hearing present Speech: No Abnormal speech present Extrem General: Yes normal to inspection, No clubbing, No cyanosis and No edema Psych Appearance: grossly normal and well kempt Mental Status: mental status grossly normal Speech and movement: Normal speech and movement present Affect: normal affect Attitude: cooperative Thought process: not confabulating and Impoverished thought process present Thought content: Normal thought content present Insight: Limited insight present (Psych) Judgement: Limited judgement present (Psych) Assessment & Plan Assessment & Plan (1) LUQ abdominal pain: Code(s): R10.12 - Left upper quadrant pain Category: Medical (2) Spondylosis of lumbar spine: Code(s): M47.816 - Spondylosis without myelopathy or radiculopathy, lumbar region Category: Medical (3) Sacroiliac joint dysfunction of right side: Code(s): M53.3 - Sacrococcygeal disorders, not elsewhere classified Category: Medical (4) Thoracic spondylosis: Comment: X-RAY OF THE SI JOINT/X-RAY LUMBAR SPINE 12/05/20 FINDINGS: Lumbar Spine: There is normal lumbar lordosis. The vertebral heights, alignment and disc heights are normal. There is mild endplate spondylosis at L3-L4 disc level. No visible acute fracture, dislocation or lytic process seen. Mild facet joint arthropathy seen at the L4-L5 disc level slightly greater on the left. No acute fracture or lytic process seen. Incidental finding of multiple round radiopaque densities in the right upper quadrant likely gallstones. These were noted on the previous CT chest exam 12/04/2020. SI Joints: There is normal symmetry of bilateral SI joints without any bony erosive changes. No fracture or lytic process seen. There are surgical ruiz in the right pelvis from previous intervention. Code(s): M47.814 - Spondylosis without myelopathy or radiculopathy, thoracic region Category: Medical (5) Bilateral lower abdominal pain: Comment: No GI cause uncovered and with pain radiating down the legs this is likely musculoskeletal/related to thoracic/lumbar spondylosis/facet arthropathy Code(s): R10.31 - Right lower quadrant pain; R10.32 - Left lower quadrant pain Category: Medical (6) GERD (gastroesophageal reflux disease): Code(s): K21.9 - Gastro-esophageal reflux disease without esophagitis Category: Medical Qualifiers: Esophagitis presence: without esophagitis Qualified Code(s): K21.9 - Gastro-esophageal reflux disease without esophagitis (7) Chronic idiopathic constipation: Code(s): K59.04 - Chronic idiopathic constipation Category: Medical (8) Tubular adenoma of colon: Comment: 3 small removed in 2018, 1 large removed 2020 repeat 3 years Code(s): D12.6 - Benign neoplasm of colon, unspecified Category: Medical Plan [facility] #[id number] Rickie She is here with 2 male family members who are quiet but supportive Her pain is the same, but she did not go for the xrays. She also is not moving her bowels well despite LInzess, so adding bisacodyl 2 tabs qhs. 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 I want to bring all of her medications to her next visit so I can confirm or straighten this out as that would be too much of the same medication. Return office visit in 5 weeks X-ray of the abdomen and thoracic spine Not obtained Colonoscopy Scheduled for 12/10/2023 Medications: Changed From bisacodyl (Dulcolax (bisacodyl)) 10 mg (2 x 5 mg) PO BEDTIME 2 days 4 tabs 0RF To bisacodyl (Dulcolax (bisacodyl)) 10 mg (2 x 5 mg) PO BEDTIME 60 tabs 6RF 30 days Discontinued oxycodone-acetaminophen 5-325 mg (Percocet) Discontinued Reason: Patient no longer taking 1 tab PO BID 30 days PRN 60 tabs 0RF pain Patient Instructions: tome 2 bisacodilo antes de acostarse y contin?e con Linzess por la ma?marylou Coding Level of Care Code Est Pt Level 3 (96701) Diagnoses LUQ abdominal pain R10.12 Spondylosis of lumbar spine M47.816 Sacroiliac joint dysfunction of right side M53.3 Thoracic spondylosis M47.814 Bilateral lower abdominal pain R10.31; R10.32 Gastroesophageal reflux disease without esophagitis K21.9 Esophagitis presence: without esophagitis Chronic idiopathic constipation K59.04 Tubular adenoma of colon D12.6
[2023-09-23 15:16] VITALS: BP 129/70; PULSE 75; BMI 35.2
== END 2023-09-23 15:57 | disposition home or self-care (01) ==
PROVIDERS: PCP General Practice; Visit Provider Nurse Practitioner
DX: R10.12 Left upper quadrant pain (principal); M47.816 Spondylosis without myelopathy or radiculopathy, lumbar region; M53.3 Sacrococcygeal disorders, not elsewhere classified; M47.814 Spondylosis without myelopathy or radiculopathy, thoracic region; R10.31 Right lower quadrant pain; R10.32 Left lower quadrant pain; K21.9 Gastro-esophageal reflux disease without esophagitis; K59.04 Chronic idiopathic constipation; D12.6 Benign neoplasm of colon, unspecified
CPT/HCPCS: 99213

== ENCOUNTER 2023-09-26 10:21 | Outpatient (REF) | payer OTHER, SELFPAY ==
--- NOTE | ~2023-09-26 | US_ITS ---
EXAMINATION: US PELVIS CLINICAL INFORMATION: Pelvic and perineal pain. COMPARISON: Ultrasound pelvis 10/17/2020 TECHNIQUE: Ultrasound of the pelvis is performed using both transabdominal and transvaginal transducers along with Doppler. Transvaginal imaging is performed due to inadequate visualization transabdominally. FINDINGS: UTERUS: The uterus is anteverted and measures 10.1 x 3.3 x 6.4 cm. The double wall endometrial thickness is 3 mm. The endometrium contains a trace amount of fluid. The uterus is smooth in contour and has heterogeneous myometrial echogenicity. No visible fibroid. Nabothian cysts are present in the cervix. ADNEXA: Both ovaries are visualized. There is normal color flow to the adnexa. There is no ovarian torsion. There is no pelvic ascites or fluid collection. Right ovary measures 1.8 x 1.3 x 1.8 cm for a volume of 2.2 mL. Exophytic 1.7 x 1.6 x 1.8 cm cyst. No follow-up imaging is recommended. Left ovary measures 2.4 x 1.6 x 1.4 cm for a volume of 2.8 mL and appears unremarkable. US/US pelvic and transvaginal IMPRESSION: No significant abnormality is seen.
== END 2023-09-26 10:22 | disposition home or self-care (01) ==
LOC: HO.US 10:21
PROVIDERS: PCP General Practice; Visit Provider Advanced Practice Midwife
DX: R10.2 Pelvic and perineal pain (principal)
CPT/HCPCS: 76830; 76856

== ENCOUNTER 2023-10-08 05:00 | Inpatient (IN) | payer OTHER, SELFPAY ==
--- NOTE | ~2023-10-08 | MR_ITS ---
EXAMINATION: MR ABDOMEN WITHOUT CONTRAST CLINICAL INFORMATION: Abdominal pain. Elevated liver function tests. COMPARISON: Previous CT of the abdomen and pelvis and abdominal ultrasound from earlier the same day TECHNIQUE: MR abdomen is performed without gadolinium contrast. MRCP sequences were also performed. FINDINGS: LUNG BASES: The visualized lung bases are unremarkable. LIVER, GALLBLADDER, AND BILIARY TREE: The liver is normal in size, smooth in contour, and normal in signal. No focal hepatic lesion or biliary ductal dilatation is present. The gallbladder is normal in size. The gallbladder is filled with gallstones. The gallbladder wall is normal. There is no pericholecystic fluid. No intra or extrahepatic biliary duct dilatation. Common bile duct measures 4 to 5 mm. No common bile duct filling defect/stone seen. PANCREAS: Unremarkable. SPLEEN: Unremarkable. ADRENAL GLANDS: Unremarkable. KIDNEYS AND URETERS: The kidneys are normal in size and shape. No hydronephrosis. No perinephric stranding. GASTROINTESTINAL TRACT: No bowel obstruction. No ascites or fluid collection. ABDOMINAL WALL: No significant hernia is appreciated. LYMPH NODES: No lymphadenopathy. VASCULAR: Unremarkable. OSSEOUS STRUCTURES: Marrow signal normal. MR/MR MRCP IMPRESSION: Gallstones. No intra or extrahepatic biliary duct dilatation or common bile duct stone.
--- NOTE | ~2023-10-08 | XR_ITS ---
EXAMINATION: XR ABDOMEN KUB CLINICAL INDICATION: Constipation, vomiting. Evaluate for small bowel obstruction. COMPARISON: 09/23/2023 TECHNIQUE: AP view of the abdomen. FINDINGS: The opacity seen in the left lung base could represent mild atelectasis. Also, there is opacity from the normal left paracardiac fat pad. Cholecystectomy clips are present in the right upper abdomen. Bowel gas pattern is normal. No dilated bowel loops or pneumoperitoneum. No evidence of renal calculi. Surgical clips are present in the right lower quadrant. There is levoscoliosis of the lumbar spine. XR/XR KUB IMPRESSION: No acute abnormalities in the abdomen. No evidence of bowel obstruction.
--- NOTE | ~2023-10-08 | CT_ITS ---
EXAMINATION: CT ABDOMEN AND PELVIS WITHOUT CONTRAST CLINICAL INFORMATION: 73-year-old female with right upper quadrant pain COMPARISON: Abdominal ultrasound from August [address] abdomen from September 2020 TECHNIQUE: Multidetector volumetric imaging was performed from the superior aspect of the liver through the pubic symphysis. Sagittal and coronal reformatted images were obtained on the technologist's workstation. This CT examination was performed using dose optimization techniques as appropriate, variously including the following: *Automated exposure control *Adjustment of mA and/or kV according to patient size (this includes techniques or standardized protocols for targeted exams where dose is matched to indication/reason for exam; i.e. extremities or head) *Use of iterative reconstruction technique DLP: 782 mGy-cm FINDINGS: LUNG BASES: The visualized lung bases are unremarkable. LIVER, GALLBLADDER, AND BILIARY TREE: The liver is normal in size, shape, and attenuation. No focal hepatic lesion or biliary ductal dilatation is present. Gallbladder over distended with numerous gallstones there is no pericholecystic fluid collection or wall thickening. CBD revealed no evidence of choledocholithiasis. PANCREAS: Unremarkable. SPLEEN: Unremarkable. ADRENAL GLANDS: Unremarkable. KIDNEYS AND URETERS: The kidneys are normal in size, shape, and attenuation. No hydronephrosis, hydroureter, or calculi seen. No perinephric stranding. BLADDER: Unremarkable. GASTROINTESTINAL TRACT: There is moderate size hiatal hernia. Appendix is surgically absent. There is moderate amount of retained feces consistent with constipation. There are changes of colonic diverticulosis without diverticulitis. Small bowel loops are unremarkable. Mesentery is normal. ABDOMINAL WALL: No significant hernia is appreciated. LYMPH NODES: Normal. VASCULAR: Unremarkable. PELVIC VISCERA: Unremarkable. OSSEOUS STRUCTURES: Unremarkable. CT/CT abdomen pelvis wo IV con IMPRESSION: 1. Cholelithiasis without evidence of cholecystitis. 2. Constipation. 3. Diverticulosis without diverticulitis. 4. Hiatal hernia. Fleischner guidelines were followed.
--- NOTE | ~2023-10-08 | US_ITS ---
EXAMINATION: US ABDOMEN LIMITED CLINICAL INFORMATION: Question cholecystitis. COMPARISON: Previous CT of the abdomen and pelvis from earlier the same day TECHNIQUE: Real-time imaging of the right upper quadrant abdominal viscera. FINDINGS: PANCREAS: Normal. LIVER: Normal. The liver is normal in size. The liver contour is normal. Parenchymal echogenicity is normal. No focal hepatic lesion. There is no intrahepatic biliary duct dilatation seen. GALLBLADDER: Gallbladder is upper normal in size. There are multiple small gallstones. Gallbladder wall upper normal in thickness measuring 3 mm. No gallbladder wall edema or pericholecystic fluid. production control technologist reports positive Oliveros sign. COMMON BILE DUCT: Normal in caliber measuring 0.3 cm in diameter. RIGHT KIDNEY: Normal. No hydronephrosis. No renal calculi or focal parenchymal lesions. The kidney measures 10 cm in maximum dimension. FREE FLUID: None. US/US abdomen limited IMPRESSION: Gallstones, upper normal-size gallbladder and upper normal thickness gallbladder wall. production control technologist reports positive Oliveros sign. Clinical correlation for acute cholecystitis recommended. This could be further evaluated with HIDA scan if clinically indicated.
--- NOTE | ~2023-10-08 | XR_ITS ---
EXAMINATION: XR CHEST CLINICAL INFORMATION: Wheezing, aspiration COMPARISON: None available. TECHNIQUE: Frontal view of the chest was obtained. FINDINGS: No significant abnormality is noted involving the heart, lungs, mediastinum, bony thorax or soft tissues. XR/XR chest 1V IMPRESSION: Unremarkable examination.
--- NOTE | 2023-10-08 05:04 | ECG_ITS ---
Test Reason : CHEST OCONNOR Blood Pressure : / mmHG Vent. Rate : 072 BPM Atrial Rate : 072 BPM P-R Int : 150 ms QRS Dur : 130 ms QT Int : 418 ms P-R-T Axes : 070 012 030 degrees QTc Int : 457 ms Normal sinus rhythm with sinus arrhythmia Right bundle branch block Abnormal ECG When compared with ECG of 13-AUG-2023 06:53, No significant change was found Referred By: Generic ED Physician Electronically Signed By:TAMEKA HERRMANN
[2023-10-08 05:13] VITALS: BP 153/91; BP 205/71; PULSE 73; PULSE 80; RESP 19; TEMP 36.6; O2SAT 96; O2SAT 98; BMI 31.9
[2023-10-08 05:17] LABS: Basophils Percent Auto 0.3 % (0-2); Eosinophils Absolute Auto 0.1 X10*3/uL (0.0-0.4); Eosinophils Percent Auto 1.2 % (0-4); Hematocrit 40.9 % (37.0-47.0); Hemoglobin 13.5 g/dl (12.0-16.0); Imm Gran Abs Auto 0.03 X10*3/uL (0.00-0.03); Imm Gran Pct Auto 0.3 % (0.0-0.4); Lymphocytes Absolute Auto 1.1 X10*3/uL (1.2-4.9); Lymphocytes Percent Auto 11.4 % (20-40); MANUAL DIFF FLAG NO; Mean Corpuscular Hemoglobin 30.3 pg (27.0-33.0); Mean Corpuscular Volume 91.7 fL (80.0-98.0); Mean Platelet Volume 10.6 fL (9.4-12.3); Monocytes Absolute Auto 0.6 X10*3/uL (0.1-1.2); Monocytes Percent Auto 6.9 % (2-11); Neutrophils Absolute Auto 7.5 x10*3/uL (2.0-8.3); Neutrophils Percent Auto 79.9 % (45-73); Platelet Count 262 X10*3/uL (160-400); Red Blood Count 4.46 X10*6/uL (4.20-5.50); Red Cell Distribution Width 13.3 % (11.0-16.0); White Blood Count 9.3 X10*3/uL (4.8-10.8)
[2023-10-08 05:36] LABS: Alanine Aminotransferase 262 U/L (0-31); Alkaline Phosphatase 98 U/L (39-117); Anion Gap 12 (12-20); Aspartate Amino Transferase 467 U/L (5-31); Bilirubin Total 2.1 mg/dL (0.0-1.0); Blood Urea Nitrogen 13 mg/dL (9-16); Calcium 9.6 mg/dL (8.4-10.2); Carbon Dioxide 26 mmol/L (22-29); Chloride 107 mmol/L (96-108); Creatinine Clr Calc Pharmacy 72.3; Estimated Glomerular Filt Rate > 60; Glucose Random 136 mg/dL (60-115); Lipase 33 U/L (8-78); Potassium 3.7 mmol/L (3.3-5.1); Sodium 141 mmol/L (135-145)
[2023-10-08 05:43] LABS: Troponin-I High Sensitivity 4.5 ng/L (<3.5-17.0)
--- NOTE | 2023-10-08 06:07 | ED.CHESTPAIN ---
HPI - Chest Pain General Chief Complaint: Chest Pain Stated Complaint: R SIDED CHEST/ABD PAIN SINCE 2199 Time Seen by Provider: 10/08/23 06:01 Source: patient Mode of arrival: ambulatory Limitations: no limitations History of Present Illness ED Provider: carin XIAO narrative: Patient complaining of pain in right upper quadrant and upper abdomen since 2199 with nausea vomiting no history of gallstones no history of kidney stone never had similar pain in the past no fever or chills new in no urinary complaints Related Data Home Medications ?Medication ?Instructions ?Recorded ?Confirmed aspirin 81 mg chewable tablet 1 tab PO DAILY 03/09/20 03/22/21 carvedilol 3.125 mg tablet 3.125 mg PO BID 03/09/20 03/22/21 diltiazem HCl 240 mg 240 mg PO DAILY 03/09/20 03/22/21 capsule,extended release 24 hr furosemide 40 mg tablet 40 mg PO DAILY 03/09/20 03/22/21 gabapentin 300 mg capsule 300 mg PO 03/09/20 03/22/21 hydralazine 50 mg tablet 50 mg PO BID 03/09/20 03/22/21 hydrochlorothiazide 50 mg tablet 50 mg PO DAILY 03/09/20 03/22/21 lisinopril 40 mg tablet 40 mg PO DAILY 03/09/20 03/22/21 amitriptyline 100 mg tablet 100 mg PO BEDTIME 02/27/21 03/22/21 folic acid 1 mg tablet 1 mg PO DAILY 02/27/21 03/22/21 nebulizers 07/15/23 cholecalciferol (vitamin D3) 50 50 mcg PO DAILY 09/18/23 mcg (2,000 unit) capsule (Vitamin D3) Previous Rx's ?Medication ?Instructions ?Recorded loratadine 10 mg tablet (Claritin) 10 mg PO DAILY 30 days #30 tabs 03/09/20 budesonide 0.5 mg/2 mL suspension 0.5 mg (2 mL) inhalation DAILY 08/24/20 for nebulization #180 mL cyclobenzaprine 10 mg tablet 5 mg (1/2 x 10 mg) PO TID PRN 09/27/20 muscle spasm #14 tabs celecoxib 200 mg capsule (Celebrex) 200 mg PO BID 30 days #60 caps 02/07/21 tamsulosin 0.4 mg capsule 0.4 mg PO QAM #30 caps 11/28/21 dexamethasone 6 mg tablet 6 mg PO DAILY #7 tabs 03/05/22 ibuprofen 600 mg tablet 600 mg PO Q6H PRN fever or pain 03/05/22 #30 tabs fluticasone furoate 200 1 ea PO DAILY #60 ea 07/15/23 mcg-vilanterol 25 mcg/dose inhalation powder (Breo Ellipta) montelukast 10 mg tablet 10 mg PO DAILY 30 days #30 tabs 07/15/23 roflumilast 500 mcg tablet 500 mcg PO DAILY 30 days #30 tabs 07/15/23 (Daliresp) albuterol sulfate 2.5 mg/3 mL 2.5 mg (3 mL) inhalation Q4H PRN 07/25/23 (0.083 %) solution for nebulization shortness of breath or wheezing 30 days #360 mL tiotropium bromide 2.5 2 puff inhalation DAILY 30 days #1 08/07/23 mcg/actuation mist for inhalation ea (Spiriva Respimat) [id number] 2.5 20 ml PO Q4H PRN cough #118 mL 08/13/23 mg-5 mg-50 mg/5 mL oral liquid (Robitussin Cough and Cold CF) docusate sodium 100 mg capsule 100 mg PO .BID WITH FOOD 30 days 08/26/23 #60 caps imipramine HCl 50 mg tablet 100 mg (2 x 50 mg) PO BEDTIME 30 08/26/23 days #60 tabs linaclotide 290 mcg capsule 290 mcg PO QAM #30 caps 08/26/23 (Linzess) txvjzu-ljsvsmjf-yuxnliu 1 cap PO QIDACHS 30 days #120 caps 08/26/23 24,000-76,000-120,000 unit capsule,delayed rel (Creon) omeprazole 20 mg capsule,delayed 20 mg PO DAILY #30 caps 08/26/23 release peg 3350-electrolytes 236 240 ml PO Q10M 1 day #4,000 mL 08/26/23 gram-22.74 gram-6.74 gram-5.86 gram solution (Golytely) metronidazole 500 mg tablet 500 mg PO BID 7 days #14 tabs 09/15/23 codeine 10 mg-guaifenesin 100 mg/5 5 ml PO Q6H PRN cough 10 days #150 09/18/23 mL oral liquid mL doxycycline monohydrate 100 mg 100 mg PO BID 14 days #28 tabs 09/18/23 tablet prednisone 10 mg tablet 10 mg PO DAILY 30 days #30 tabs 09/18/23 bisacodyl 5 mg tablet,delayed 10 mg (2 x 5 mg) PO BEDTIME 30 09/23/23 release (Dulcolax (bisacodyl)) days #60 tabs albuterol sulfate 90 mcg/actuation 2 puff inhalation Q4-6H PRN 09/24/23 aerosol inhaler shortness of breath or wheezing #8.5 grams Allergies Allergy/AdvReac Type Severity Reaction Status Date / Time morphine [MORPHINE] Allergy Intermediate NAUSEA, Verified 10/08/23 05:15 rash, redness Review of Systems Review of Systems: Yes all other systems are reviewed and are negative PMFSH Past Medical History Medical History Atelectasis of left lung Chronic pain syndrome 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 Sacroiliitis Disc degeneration, lumbar OTILIO (obstructive sleep apnea) Back pain HTN (hypertension) Skin cancer (melanoma) GERD (gastroesophageal reflux disease) Depression OTILIO (obstructive sleep apnea) Kidney stones Pulmonary nodule Severe asthma Primary osteoarthritis involving multiple joints Pneumonia Chronic allergic rhinitis (~03/09/20) Asthma-COPD overlap syndrome Surgical History History of bronchoscopy History of cystoscopy History of laparoscopic appendectomy History of nasal surgery Hx of section Hx of tubal ligation Hx of colonoscopy History of esophagogastroduodenoscopy (EGD) Hx of knee surgery Family History Family History Father No problems noted. Mother No problems noted. Social History Social History Household Members: Children Housing: Apartment Alcohol intake: never Patient Tobacco Use Status: Never used Tobacco Smoked in Last 30 Days: No Use of substances other than those prescribed or required for medical reasons: No Advance Directives: No Advance Directives Information Provided: No Do you have a plan to hurt others: No Plan Current occupational status: disabled Current occupation: rt handed Physical Exam Vital Signs: Vital Signs: Last Vital Signs Temp 97.8 F 10/08/23 05:13 Pulse 73 10/08/23 05:13 Resp 19 10/08/23 05:13 BP 153/91 H 10/08/23 05:13 Pulse Ox 96 10/08/23 05:13 O2 Del Method Room Air 10/08/23 05:13 BMI result Body Mass Index 31.9 Appearance: Alert. Oriented X3. In moderate distress. Eyes: No icterus or pallor ENT: Pharynx normal. Oral Mucosa moist Neck: Normal inspection. Neck supple. CVS: Normal heart rate and rhythm. Pulses normal. Respiratory: No respiratory distress. Equal air entry bilateral, no wheezing/rales/rhonchi Abdomen: Soft right upper quadrant tenderness Oliveros sign positive Bowel sounds are present, no mass palpable, no CVA tenderness Skin: Skin warm and dry. Normal skin color. Normal skin turgor. Extremities: No lower extremity edema. No calf tenderness Neuro: Oriented X 3. No motor deficit. Medications Administered Discontinued Medications Generic Name Dose Route Start Last Admin Trade Name Freq PRN Reason Stop Dose Admin Hydromorphone HCl 2 mg 10/08/23 06:02 10/08/23 06:15 Hydromorphone Hcl 2 Mg/Ml Vial IVPUSH 10/08/23 06:03 2 mg ONCE ONE Administration Protocol Sodium Chloride 1,000 mls @ 999 mls/hr 10/08/23 06:02 10/08/23 06:16 Ns IV 10/08/23 07:02 999 mls/hr .Q1H1M ONE Administration Ondansetron HCl 4 mg 10/08/23 06:02 10/08/23 06:15 Ondansetron Hcl 4 Mg/2 Ml Vial IVPUSH 10/08/23 06:03 4 mg ONCE ONE Administration Medical Decision Making Medical Decision Making [facility] Narrative: Patient with right upper quadrant pain sudden onset with no history of prior pain in the past prior CT scan and ultrasound were negative for gallstones lab workup showed slightly elevated LFTs likely patient gallstones/polyp in the gallbladder as the cause of pain will do CT scan CT scan showed multiple gallstones without wall thickening patient is still has significant pain will do ultrasound patient signed out to Dr. Davies for further disposition pending ultrasound Differential Diagnosis Differential Diagnoses: The differential diagnosis associated with the presentation includes Acute cholecystitis/pancreatitis/gastritis Admission/Observation Consideration of admission/observation: Escalation of care including admission/observation considered Lab Data MDM Lab Attestation statement: I reviewed the patient's lab results. 10/08/23 05:11 10/08/23 05:11 Labs: Lab Results 10/08/23 Range/Units 05:11 WBC 9.3 (4.8-10.8) X10*3/uL RBC 4.46 (4.20-5.50) X10*6/uL Hgb 13.5 (12.0-16.0) g/dl Hct 40.9 (37.0-47.0) % MCV 91.7 (80.0-98.0) fL MCH 30.3 (27.0-33.0) pg MCHC 33.0 (31.0-35.0) g/dl RDW 13.3 (11.0-16.0) % Plt Count 262 (160-400) X10*3/uL MPV 10.6 (9.4-12.3) fL Immature Gran % (Auto) 0.3 (0.0-0.4) % Neut % (Auto) 79.9 H (45-73) % Lymph % (Auto) 11.4 L (20-40) % [place] % (Auto) 6.9 (2-11) % Eos % (Auto) 1.2 (0-4) % Baso % (Auto) 0.3 (0-2) % Lymph # (Auto) 1.1 L (1.2-4.9) X10*3/uL [place] # (Auto) 0.6 (0.1-1.2) X10*3/uL Eos # (Auto) 0.1 (0.0-0.4) X10*3/uL Baso # (Auto) 0.0 (0.0-0.2) X10*3/uL Abs Immat Gran (auto) 0.03 (0.00-0.03) X10*3/uL Absolute Neuts (auto) 7.5 (2.0-8.3) x10*3/uL Absolute Nucleated RBC 0.000 (0.0-0.012) X10*3/uL Nucleated RBC % (auto) 0.0 (0.0-0.2) /100WBC Sodium 141 (135-145) mmol/L Potassium 3.7 (3.3-5.1) mmol/L Chloride 107 (96-108) mmol/L Carbon Dioxide 26 (22-29) mmol/L Anion Gap 12 (12-20) BUN 13 (9-16) mg/dL Creatinine 0.69 (0.5-1.4) mg/dL Estim Creat Clear Calc 72.3 Estimated GFR > 60 Random Glucose 136 H (60-115) mg/dL Calcium 9.6 (8.4-10.2) mg/dL Total Bilirubin 2.1 H (0.0-1.0) mg/dL AST 467 H (5-31) U/L ALT 262 H (0-31) U/L Alkaline Phosphatase 98 (39-117) U/L Troponin I High Sens 4.5 (<3.5-17.0) ng/L Total Protein 7.0 (6.5-8.0) g/dL Albumin 4.0 (3.5-5.0) g/dL Lipase 33 (8-78) U/L Independent Interpretation I performed an independent interpretation of an: CT Scan Interpretation: Gallstones++ Radiology Impression Discussion of test interpretation with radiology: I have reviewed the radiologist's reading. Discharge Plan Discharge Clinical Impression: Gallstones, Biliary colic Patient Disposition: Still a Patient Prescriptions: No Action budesonide 0.5 mg/2 mL suspension for nebulization 0.5 mg inhalation DAILY Qty: 180 3RF celecoxib [Celebrex] 200 mg capsule 200 mg PO BID 30 Days Qty: 60 3RF tamsulosin 0.4 mg capsule 0.4 mg PO QAM Qty: 30 3RF albuterol sulfate 2.5 mg /3 mL (0.083 %) solution for nebulization 2.5 mg inhalation Q4H PRN (Reason: shortness of breath or wheezing) 30 Days Qty: 360 11RF Spiriva Respimat 2.5 mcg/actuation mist 2 puff inhalation DAILY 30 Days Qty: 1 11RF metronidazole 500 mg tablet 500 mg PO BID 7 Days Qty: 14 0RF Rx Instructions: Take with food, Avoid alcohol and vinegar products albuterol sulfate 90 mcg/actuation HFA aerosol inhaler 2 puff inhalation Q4-6H PRN (Reason: shortness of breath or wheezing) Qty: 8.5 0RF cyclobenzaprine 10 mg tablet 5 mg PO TID PRN (Reason: muscle spasm) Qty: 14 0RF dexamethasone 6 mg tablet 6 mg PO DAILY Qty: 7 0RF ibuprofen 600 mg tablet 600 mg PO Q6H PRN (Reason: fever or pain) Qty: 30 0RF Robitussin Cough and Cold CF 2.5-5-50 mg/5 mL liquid 20 ml PO Q4H PRN (Reason: cough) Qty: 118 0RF gabapentin 300 mg capsule 300 mg PO carvedilol 3.125 mg tablet 3.125 mg PO BID furosemide 40 mg tablet 40 mg PO DAILY hydralazine 50 mg tablet 50 mg PO BID lisinopril 40 mg tablet 40 mg PO DAILY aspirin 81 mg tablet,chewable 1 tab PO DAILY diltiazem HCl 240 mg capsule,extended release 24hr 240 mg PO DAILY hydrochlorothiazide 50 mg tablet 50 mg PO DAILY loratadine [Claritin] 10 mg tablet 10 mg PO DAILY 30 Days Qty: 30 11RF amitriptyline 100 mg tablet 100 mg PO BEDTIME folic acid 1 mg tablet 1 mg PO DAILY (DME) nebulizers Misc See Rx Instructions .ROUTE Rx Instructions: As directed fluticasone furoate-vilanterol [Breo Ellipta] 200-25 mcg/dose blister with device 1 ea PO DAILY Qty: 60 11RF Daliresp 500 mcg tablet 500 mcg PO DAILY 30 Days Qty: 30 11RF montelukast 10 mg tablet 10 mg PO DAILY 30 Days Qty: 30 11RF cholecalciferol (vitamin D3) [Vitamin D3] 50 mcg (2,000 unit) capsule 50 mcg PO DAILY doxycycline monohydrate 100 mg tablet 100 mg PO BID 14 Days Qty: 28 0RF prednisone 10 mg tablet 10 mg PO DAILY 30 Days Qty: 30 1RF codeine-guaifenesin 10-100 mg/5 mL liquid 5 ml PO Q6H PRN (Reason: cough) 10 Days Qty: 150 0RF bisacodyl [Dulcolax (bisacodyl)] 5 mg tablet,delayed release (DR/EC) 10 mg PO BEDTIME 30 Days Qty: 60 6RF Linzess 290 mcg capsule 290 mcg PO QAM Qty: 30 6RF Creon 24,000-76,000 -120,000 unit capsule,delayed release(DR/EC) 1 cap PO QIDACHS 30 Days Qty: 120 6RF Rx Instructions: administer with meals and/or snacks omeprazole 20 mg capsule,delayed release(DR/EC) 20 mg PO DAILY Qty: 30 6RF imipramine HCl 50 mg tablet 100 mg PO BEDTIME 30 Days Qty: 60 6RF docusate sodium 100 mg capsule 100 mg PO .BID WITH FOOD 30 Days Qty: 60 6RF peg 3350-electrolytes [Golytely] 236-22.74-6.74 -5.86 gram recon soln 240 ml PO Q10M 1 Days Qty: 4000 0RF Rx Instructions: until fecal effluent is clear; do not exceed a total volume of 2,000 mL Print Language: Lao
[2023-10-08] MEDS: ondansetron HCL 4 MG/2 ML VIAL IVPUSH ×4 (06:15→23:15)
[2023-10-08] MEDS: HYDROmorphone HCl 2 MG/ML VIAL IVPUSH (06:15)
[2023-10-08] MEDS: 0.9 % Sodium Chloride 1,000 ML 999 ML IV (06:16)
--- NOTE | 2023-10-08 07:57 | PC.NURSE ---
This RN assumed care. Pt resting in bed, reports her pain has overall improved and she is feeling better than when she arrived to ER. IV fluids infusing.
[2023-10-08 10:22] VITALS: BP 109/60; PULSE 78; RESP 17; TEMP 36.6; O2SAT 96
[2023-10-08] MEDS: 0.9 % Sodium Chloride 1,000 ML 100 ML IVCONT (10:28)
--- NOTE | 2023-10-08 10:33 | PC.NURSE ---
Pt reports worsening in nausea, medicated per JUL. Pt reports no food since 5pm last night. NPO, surgical consult.
[2023-10-08 10:51] VITALS: RESP 19
[2023-10-08] MEDS: HYDROmorphone HCl 1 MG/ML SYRINGE IVPUSH (10:51)
[2023-10-08] MEDS: Piperacillin Sodium/Tazobactam 3.375 GM in 0.9 % Sodium Chloride 50 ML IV ×3 (10:54→22:40)
--- NOTE | 2023-10-08 10:56 | PC.NURSE ---
Per MD, no cultures needed prior to ABX
--- NOTE | 2023-10-08 11:03 | PC.NURSE ---
Pt noted to be more comfortable with pain management.
--- NOTE | 2023-10-08 11:19 | P.HPGS_ITS ---
History of Present Illness History of Present Illness Date of Service: 10/08/23 Chief complaint: Acute cholecystitis, possible CBD stone Narrative: Margarita Ordonez is a 73 year old female presenting with complaints of abdominal pain in the right upper quadrant, nausea and vomiting. The pain began yesterday afternoon and the patient reported a decreased appetite. She reports drinking soup at approximately 06:00 o'clock and then developed the abdominal pain between 9-10 o'clock p.m.. The pain became quite severe and she subsequently presented to the emergency department around 04:00 this morning. She was noted to be writhing in pain and needed multiple doses of narcotic. Subsequent workup with laboratories revealed normal WBC however elevated bilirubin and transaminases. Ultrasound of the abdomen was positive for multiple gallstones within the gallbladder. The gallbladder was noted to be distended by CT. No common duct stones were identified by CT. She has admitted to the surgical service for further management of this acute cholecystitis. Review of Systems Review of Systems: Yes all other systems are reviewed and are negative Constitutional: Constitutional: Denies chills, Denies fever(s), Denies headache(s), Reports poor appetite and Denies weakness ENT: Denies headache(s) Cardiovascular: Cardiovascular: Denies chest pain, Denies irregular heart rhythm, Denies palpitations and Denies dyspnea Respiratory: Respiratory: Denies cough, Denies excessive phlegm production and Denies dyspnea Gastrointestinal: Gastrointestinal: Reports abdominal pain, Denies bloating, Denies change in bowel habits, Denies constipation, Denies heartburn, Denies diarrhea, Reports nausea and Reports vomiting Genitourinary: Genitourinary: Denies urinary frequency Musculoskeletal: Musculoskeletal: Denies back pain, Denies muscle weakness and Denies numbness Integumentary/Breasts: Skin/Breast: Denies changing lesions and Denies unusual bruising Neurologic: Denies headache(s), Denies numbness, Denies paresthesias and Denies weakness Psychiatric: Psychiatric: Denies anxiety and Denies depression Endocrine: Endocrine: Denies palpitations Hematologic/Lymphatic: Hematologic/Lymphatic: Denies lymphadenopathy [facility] Past Medical History Medical History Atelectasis of left lung Chronic pain syndrome 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 Sacroiliitis Disc degeneration, lumbar OTILIO (obstructive sleep apnea) Back pain HTN (hypertension) Skin cancer (melanoma) GERD (gastroesophageal reflux disease) Depression OTILIO (obstructive sleep apnea) Kidney stones Pulmonary nodule Severe asthma Primary osteoarthritis involving multiple joints Pneumonia Chronic allergic rhinitis (~03/09/20) Asthma-COPD overlap syndrome Family History Family History Father No problems noted. Mother No problems noted. Surgical History Surgical History History of bronchoscopy History of cystoscopy History of laparoscopic appendectomy History of nasal surgery Hx of section Hx of tubal ligation Hx of colonoscopy History of esophagogastroduodenoscopy (EGD) Hx of knee surgery Social History Social History Household Members: Children Housing: Apartment Alcohol intake: never Patient Tobacco Use Status: Never used Tobacco Smoked in Last 30 Days: No Use of substances other than those prescribed or required for medical reasons: No Advance Directives: No Advance Directives Information Provided: No Do you have a plan to hurt others: No Plan Current occupational status: disabled Current occupation: rt handed Meds Allergies Allergy/AdvReac Type Severity Reaction Status Date / Time morphine [MORPHINE] Allergy Intermediate NAUSEA, Verified 10/08/23 05:15 rash, redness Active Medications: Current Medications Sodium Chloride (Ns) 1,000 mls @ 100 mls/hr IVCONT .Q10H URIAH Last Admin: 10/08/23 10:28 Dose: 100 mls/hr Home Medications ?Medication ?Instructions ?Recorded ?Confirmed ?Last Taken ?Type aspirin 81 mg chewable tablet 1 tab PO DAILY 03/09/20 03/22/21 Unknown History carvedilol 3.125 mg tablet 3.125 mg PO BID 03/09/20 03/22/21 Unknown History diltiazem HCl 240 mg 240 mg PO DAILY 03/09/20 03/22/21 Unknown History capsule,extended release 24 hr furosemide 40 mg tablet 40 mg PO DAILY 03/09/20 03/22/21 Unknown History gabapentin 300 mg capsule 300 mg PO 03/09/20 03/22/21 Unknown History hydralazine 50 mg tablet 50 mg PO BID 03/09/20 03/22/21 Unknown History hydrochlorothiazide 50 mg tablet 50 mg PO DAILY 03/09/20 03/22/21 Unknown H istory lisinopril 40 mg tablet 40 mg PO DAILY 03/09/20 03/22/21 01/19/21 History amitriptyline 100 mg tablet 100 mg PO BEDTIME 02/27/21 03/22/21 Unknown History folic acid 1 mg tablet 1 mg PO DAILY 02/27/21 03/22/21 Unknown History nebulizers 07/15/23 Unknown History cholecalciferol (vitamin D3) 50 50 mcg PO DAILY 09/18/23 Unknown History mcg (2,000 unit) capsule (Vitamin D3) Physical Exam Vital Signs: Vital Signs: Last Vital Signs Temp 97.9 F 10/08/23 10:22 Pulse 78 10/08/23 10:22 Resp 19 10/08/23 10:51 BP 109/60 10/08/23 10:22 Pulse Ox 96 10/08/23 10:22 O2 Del Method Room Air 10/08/23 10:22 BMI result Body Mass Index 31.9 Const: General: cooperative and no acute distress Nutritional Appearance: well nourished Orientation/consciousness: patient oriented x3 Limitations: no limitations HEENT: Head: Yes normocephalic and Yes atraumatic Ears: hearing grossly normal bilaterally Resp: Effort & Inspection: normal respiratory effort, no audible wheezes, no cough and no respiratory distress Cardio: Jugular venous distension: no JVD GI: Inspection: Yes normal to inspection Palpation (GI): Soft to palpation, Tenderness to palpation present (GI) in the RUQ and Oliveros's sign positive, no guarding, not rigid and No hepatosplenomegaly present Percussion: Yes normal to percussion Auscultation: normal bowel sounds Rectal Exam - Female: deferred Skin: Other: Warm, dry, no rash Neuro: General: patient oriented x3 Extrem: General: Yes no clubbing, cyanosis or edema Results Results Labs: Short CBC 10/08/23 Range/Units 05:11 WBC 9.3 (4.8-10.8) X10*3/uL Hgb 13.5 (12.0-16.0) g/dl Hct 40.9 (37.0-47.0) % Plt Count 262 (160-400) X10*3/uL [facility] 10/08/23 05:11 Sodium 141 Potassium 3.7 Chloride 107 Carbon Dioxide 26 BUN 13 Creatinine 0.69 Calcium 9.6 Liver Function 10/08/23 Range/Units 05:11 Total Bilirubin 2.1 H (0.0-1.0) mg/dL AST 467 H (5-31) U/L ALT 262 H (0-31) U/L Alkaline Phosphatase 98 (39-117) U/L Albumin 4.0 (3.5-5.0) g/dL Assessment and Plan (1) Acute cholecystitis due to biliary calculus: Status: Acute (2) Choledocholithiasis with acute cholecystitis: Status: Acute Plan 73-year-old female patient presenting pain in the right upper quadrant associated with nausea, vomiting and abdominal pain, found to have elevated liver transaminases and bilirubin level. Subsequent ultrasound and CT confirmed cholelithiasis with a distended gallbladder. No common duct stones were appreciated on the CT. No wall thickening was appreciated. She has admitted to the surgical service for further management. Her liver function tests will be trended and MRCP ordered to confirm no choledocholithiasis. If this is clear, laparoscopic cholecystectomy will be arranged possibly tomorrow. She will be kept NPO on IV fluids and IV antibiotics. Total time managing care of this patient today: 45 minutes. Quality Stroke Does the patient have a stroke diagnosis?: No VTE Prior VTE?: No VTE Risk Level:: Surgical - moderate VTE Device Contraindication: N/A - Device Ordered VTE Drug Contraindication: Treatment Not Indicated Procedures Date of Service Date of Service: 10/08/23
[2023-10-08 11:27] LABS: INTERNATIONAL NORM RATIO 1.1 (0.9-1.1); Prothrombin Time 13.3 SEC (11.1-13.3)
--- NOTE | 2023-10-08 12:02 | HO.PM.IMCN ---
History of Present Illness Data of Consult Service Date: 10/08/23 Requesting physician: Zaki Cheung Primary Care Provider: Unknown Physician HPI Reason for consult: Medical management 73-year-old female with history of OTILIO not on CPAP, hypertension, asthma/COPD overlap syndrome, chronic pain disorder, history of skin cancer, GERD admitted to general surgery for acute cholecystitis and choledocholithiasis with consult placed hospitalist service for medical management. She is reporting intermittent RUQwith nausea and vomiting. No other complaitns at this time. Her vitals are stable. CBC unremarkable. Renal fx and lytes normla. Total bili 2.1, AST 467, ALT 262. Denies etoh use, drug use, or cigarette smoking. Pt seen with german interpretor. Review of Systems Review of Systems: Yes all other systems are reviewed and are negative 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 Sacroiliitis Disc degeneration, lumbar OTILIO (obstructive sleep apnea) Back pain HTN (hypertension) Skin cancer (melanoma) GERD (gastroesophageal reflux disease) Depression OTILIO (obstructive sleep apnea) Kidney stones Pulmonary nodule Severe asthma Primary osteoarthritis involving multiple joints Pneumonia Chronic allergic rhinitis (~03/09/20) Asthma-COPD overlap syndrome Family History Father No problems noted. Mother No problems noted. Surgical History History of bronchoscopy History of cystoscopy History of laparoscopic appendectomy History of nasal surgery Hx of section Hx of tubal ligation Hx of colonoscopy History of esophagogastroduodenoscopy (EGD) Hx of knee surgery Social History Household Members: Children Housing: Apartment Alcohol intake: never Patient Tobacco Use Status: Never used Tobacco Smoked in Last 30 Days: No Use of substances other than those prescribed or required for medical reasons: No Advance Directives: No Advance Directives Information Provided: No Do you have a plan to hurt others: No Plan Current occupational status: disabled Current occupation: rt handed Meds Allergies Allergy/AdvReac Type Severity Reaction Status Date / Time morphine [MORPHINE] Allergy Intermediate NAUSEA, Verified 10/08/23 05:15 rash, redness Active Medications: Current Medications Sodium Chloride (Ns) 1,000 mls @ 100 mls/hr IVCONT .Q10H URIAH Last Admin: 10/08/23 10:28 Dose: 100 mls/hr Dextrose/Lactated Ringer's (D5lr) 1,000 mls @ 125 mls/hr IVCONT .Q8H URIAH Piperacillin Sod/Tazobactam (Sod 3.375 gm/ Sodium Chloride) 50 mls @ 100 mls/hr IV Q6H URIAH Acetaminophen (Ofirmev) 1,000 mg in 100 mls @ 400 mls/hr IV Q6H URIAH Ondansetron HCl (Ondansetron Hcl 4 Mg/2 Ml Vial) 4 mg IVPUSH QID PRN PRN Reason: Nausea Sodium Chloride (0.9 % Sodium Chloride Flush 3 Ml Syringe) 3 ml IVFLUSH QSHIFT URIAH Zolpidem Tartrate (Zolpidem Tartrate 5 Mg Tablet) 5 mg PO BEDTIME PRN PRN Reason: Insomnia Home Medications ?Medication ?Instructions ?Recorded ?Confirmed ?Last Taken ?Type aspirin 81 mg chewable tablet 1 tab PO DAILY 03/09/20 03/22/21 Unknown History carvedilol 3.125 mg tablet 3.125 mg PO BID 03/09/20 03/22/21 Unknown History diltiazem HCl 240 mg 240 mg PO DAILY 03/09/20 03/22/21 Unknown History capsule,extended release 24 hr furosemide 40 mg tablet 40 mg PO DAILY 03/09/20 03/22/21 Unknown History gabapentin 300 mg capsule 300 mg PO 03/09/20 03/22/21 Unknown History hydralazine 50 mg tablet 50 mg PO BID 03/09/20 03/22/21 Unknown History hydrochlorothiazide 50 mg tablet 50 mg PO DAILY 03/09/20 03/22/21 Unknown History lisinopril 40 mg tablet 40 mg PO DAILY 03/09/20 03/22/21 01/19/21 History amitriptyline 100 mg tablet 100 mg PO BEDTIME 02/27/21 03/22/21 Unknown History folic acid 1 mg tablet 1 mg PO DAILY 02/27/21 03/22/21 Unknown History nebulizers 07/15/23 Unknown History cholecalciferol (vitamin D3) 50 50 mcg PO DAILY 09/18/23 Unknown History mcg (2,000 unit) capsule (Vitamin D3) Physical Exam Vital Signs and Narrative: Vital Signs: Last Vital Signs Temp 97.9 F 10/08/23 10:22 Pulse 78 10/08/23 10:22 Resp 19 10/08/23 10:51 BP 109/60 10/08/23 10:22 Pulse Ox 96 10/08/23 10:22 O2 Del Method Room Air 10/08/23 10:22 BMI result Body Mass Index 31.9 Constitutional - Awake and Alert, No apparent distress Eyes - PERRLA, EOMI Cardiovascular - S1S2, RRR, No edema Respiratory - Normal lung expansion, Normal respiratory effort, No respiratory distress, CTA bilaterally Gastrointestinal - NT / ND; +BS; No rebound or guarding Extremities - no calf tenderness bilaterally, no swelling Skin - Warm/Dry Neurological - Alert & oriented x3 Psychological - Appropriate affect Results Labs 10/08/23 05:11 10/08/23 05:11 Labs: Laboratory Results - last 24 hr 10/08/23 10/08/23 05:11 11:04 MCV 91.7 MCH 30.3 MCHC 33.0 RDW 13.3 Plt Count 262 MPV 10.6 Immature Gran % (Auto) 0.3 Neut % (Auto) 79.9 H Lymph % (Auto) 11.4 L [place] % (Auto) 6.9 Eos % (Auto) 1.2 Baso % (Auto) 0.3 Lymph # (Auto) 1.1 L [place] # (Auto) 0.6 Eos # (Auto) 0.1 Baso # (Auto) 0.0 Abs Immat Gran (auto) 0.03 Absolute Neuts (auto) 7.5 Absolute Nucleated RBC 0.000 Nucleated RBC % (auto) 0.0 PT 13.3 INR 1.1 Anion Gap 12 Estim Creat Clear Calc 72.3 Estimated GFR > 60 Random Glucose 136 H Calcium 9.6 Total Bilirubin 2.1 H AST 467 H ALT 262 H Alkaline Phosphatase 98 Troponin I High Sens 4.5 Total Protein 7.0 Albumin 4.0 Lipase 33 Blood Type O Positive Antibody Screen NEGATIVE Imaging Radiologist's Impressions: Impressions Abdomen/Pelvis CT 10/08/23 06:41 IMPRESSION: 1. Cholelithiasis without evidence of cholecystitis. 2. Constipation. 3. Diverticulosis without diverticulitis. 4. Hiatal hernia. Fleischner guidelines were followed. Assessment and Plan (1) Choledocholithiasis with acute cholecystitis: Status: Acute Plan 73-year-old female with history of OTILIO not on CPAP, hypertension, asthma/COPD overlap syndrome, chronic pain disorder, history of skin cancer, GERD admitted to general surgery for acute cholecystitis and choledocholithiasis with consult placed hospitalist service for medical management. #Cholecystitis/Choledocolithiasis -plan per general surgery #Asthma/copd overlap -mild wheezing on exam -given wheezing with vomiting, will check cxr to evaluate for aspiration though patient denies -CXR ordered -no indication for steroids at this time. duonebs q4h, continue home inhalers #HTN -resume coreg and diltiazem am if bp allows. Hold lisinopril pre-operatively -follow bp #Chronic pain syndrome -pain management as ordered by general surgery. continue gabapentin #Mood disorder -continue home meds Thank you for this consult, we will continue to follow along with you.
--- NOTE | 2023-10-08 12:33 | PC.NURSE ---
Per admitting MD, cancel 11:15 dose of Zosyn due to dose just given prior, continue with Zosyn at 1715. DC Normal saline and start new fluids per JUL.
[2023-10-08] MEDS: Acetaminophen 1,000 MG/100 ML PIGGYBACK 400 MG IV ×3 (13:20→23:15)
[2023-10-08] MEDS: Dextrose 5 % and Lactated Ring 1,000 ML 125 ML IVCONT (13:25)
[2023-10-08 15:32] LABS: Glucose, Whole Blood 118 mg/dL (60-115)
[2023-10-08 15:37] VITALS: BP 106/52; PULSE 60; RESP 18; TEMP 36.5; O2SAT 94
--- NOTE | 2023-10-08 16:15 | PHA.MEDREC ---
Pharmacy Consult ? Medication Reconciliation Pharmacy has completed the medication reconciliation. Director Organizational services were utilized. Patient was poor historian, answered yes to almost every medication. Pharmacy utilized pharmacy claims and list from [facility], unfortunately list did not line up, and went off most recent pharmacy claims. We had no claims for imipramine, roflumilast, and carvedilol; pt did she say was no longer on.
--- NOTE | 2023-10-08 17:30 | PC.NURSE ---
patient going to mri [id number]
--- NOTE | 2023-10-08 18:39 | PC.NURSE ---
patient appears to be asleep, respirations equal and unlabored. D5LR running 100ml/hr.
[2023-10-08 19:46] VITALS: BP 159/74; PULSE 79; RESP 18; TEMP 36.1; O2SAT 94
[2023-10-08 19:47] VITALS: BMI 36.2
[2023-10-08] MEDS: Prochlorperazine Edisylate 10 MG/2 ML VIAL 5 MG IVPUSH (20:04)
[2023-10-08] MEDS: Ketorolac Tromethamine 15 MG/ML VIAL IVPUSH (20:04)
[2023-10-08] MEDS: 0.9 % Sodium Chloride Flush 3 ML SYRINGE IVFLUSH (22:40)
[2023-10-09] VITALS (28 sets, daily range): BP systolic 138–170; BP diastolic 63–89; PULSE 57–79; RESP 16–20; TEMP 36–37; O2SAT 94–99
[2023-10-09] MEDS: Dextrose 5 % and Lactated Ring 1,000 ML 125 ML IVCONT ×3 (00:47→22:56)
[2023-10-09] MEDS: Piperacillin Sodium/Tazobactam 3.375 GM in 0.9 % Sodium Chloride 50 ML IV ×4 (04:38→23:08)
[2023-10-09] MEDS: Acetaminophen 1,000 MG/100 ML PIGGYBACK 400 MG IV ×3 (05:10→22:55)
[2023-10-09 06:46] LABS: MANUAL DIFF FLAG NO
[2023-10-09 07:02] LABS: Basophils Absolute Auto 0.1 X10*3/uL (0.0-0.2); Basophils Percent Auto 1.1 % (0-2); Eosinophils Absolute Auto 0.4 X10*3/uL (0.0-0.4); Eosinophils Percent Auto 9.1 % (0-4); Hematocrit 37.5 % (37.0-47.0); Hemoglobin 12.6 g/dl (12.0-16.0); Imm Gran Abs Auto 0.01 X10*3/uL (0.00-0.03); Imm Gran Pct Auto 0.2 % (0.0-0.4); Lymphocytes Absolute Auto 0.8 X10*3/uL (1.2-4.9); Lymphocytes Percent Auto 17.3 % (20-40); Mean Corpuscular HGB Conc 33.6 g/dl (31.0-35.0); Mean Corpuscular Hemoglobin 30.6 pg (27.0-33.0); Mean Platelet Volume 11.3 fL (9.4-12.3); Monocytes Absolute Auto 0.4 X10*3/uL (0.1-1.2); Monocytes Percent Auto 8.4 % (2-11); Neutrophils Percent Auto 63.9 % (45-73); Platelet Count 218 X10*3/uL (160-400); Red Blood Count 4.12 X10*6/uL (4.20-5.50); Red Cell Distribution Width 13.5 % (11.0-16.0); White Blood Count 4.7 X10*3/uL (4.8-10.8)
[2023-10-09 07:33] LABS: Alanine Aminotransferase 840 U/L (0-31); Albumin Level 3.4 g/dL (3.5-5.0); Alkaline Phosphatase 153 U/L (39-117); Anion Gap 11 (12-20); Aspartate Amino Transferase 780 U/L (5-31); Bilirubin Direct 1.8 mg/dL (0.0-0.5); Bilirubin Total 4.3 mg/dL (0.0-1.0); Blood Urea Nitrogen 6 mg/dL (9-16); Calcium 9.1 mg/dL (8.4-10.2); Carbon Dioxide 27 mmol/L (22-29); Chloride 109 mmol/L (96-108); Creatinine Clr Calc Pharmacy 80.9; Estimated Glomerular Filt Rate > 60; Glucose Random 103 mg/dL (60-115); Potassium 3.6 mmol/L (3.3-5.1); Sodium 143 mmol/L (135-145); Total Protein 6.1 g/dL (6.5-8.0)
[2023-10-09] MEDS: Albuterol/Iprat 2.5/0.5MG 3 ML AMPUL.NEB INHALE ×3 (07:33→19:24)
[2023-10-09] MEDS: dilTIAZem HCL CD 240 MG CAP.ER.DEG PO (08:39)
[2023-10-09] MEDS: Tiotropium Bromide 2.5 mcg 1 PUFF/2.5 MCG MIST.INHAL 2 PUFF INHALE (11:49)
--- NOTE | 2023-10-09 11:59 | HO.PM.IMPN ---
Subjective Subjective Date of Service: 10/09/23 Interval History: seen and evaluated this morning Feels comfortable with less pain Review of Systems Review of Systems: Yes all other systems are reviewed and are negative Physical Exam Vital Signs: Vital Signs: Last Vital Signs Temp 98.3 F 10/09/23 06:53 Pulse 65 10/09/23 11:51 Resp 20 10/09/23 11:51 BP 138/65 10/09/23 06:53 Pulse Ox 97 10/09/23 06:53 O2 Del Method Room Air 10/09/23 06:53 BMI result Body Mass Index 36.2 Const: Other: Constitutional : Awake, interactive, not in distress Cardiovascular : RRR, no JVP, no lower extremity edema Respiratory : good bilateral air entry, expiratory scattered wheezing Gastrointestinal: soft, lax, Normal bowel sounds, Non tender Neurological : Alert & oriented x3, No focal deficit Objective Data Active Medications Albuterol/Ipratropium (Albuterol/Iprat 2.5/0.5mg 3 Ml Ampul.Neb) 3 ml INHALE RQ4H WHILE AWAKE [facility] Last Admin: 10/09/23 11:49 Dose: 3 ml Documented By: DAREN Diltiazem HCl (Diltiazem Hcl Cd 240 Mg Cap.Er.Deg) 240 mg PO DAILY [facility]; Protocol Last Admin: 10/09/23 08:39 Dose: 240 mg Documented By: BRANDI Docusate Sodium (Docusate Sodium 100 Mg Capsule) 100 mg PO .BID WITH FOOD [facility] Dextrose/Lactated Ringer's (D5lr) 1,000 mls @ 125 mls/hr IVCONT .Q8H [facility] Last Admin: 10/09/23 09:47 Dose: 125 mls/hr Documented By: BRANDI Piperacillin Sod/Tazobactam (Sod 3.375 gm/ Sodium Chloride) 50 mls @ 100 mls/hr IV Q6H [facility] Last Infusion: 10/09/23 05:15 Dose: Infused Documented By: REGULO Acetaminophen (Ofirmev) 1,000 mg in 100 mls @ 400 mls/hr IV Q6H [facility] Last Infusion: 10/09/23 11:45 Dose: Infused Documented By: BRANDI Montelukast Sodium (Montelukast Sodium 10 Mg Tablet) 10 mg PO DAILY [facility] Last Admin: 10/09/23 08:41 Dose: Not Given Documented By: BRANDI Non-Admin Reason: Patient Refused Omeprazole (Omeprazole 20 Mg Capsule.Dr) 20 mg PO DAILY@0630 [facility] Last Admin: 10/09/23 08:41 Dose: Not Given Documented By: BRANDI Non-Admin Reason: Patient Refused Ondansetron HCl (Ondansetron Hcl 4 Mg/2 Ml Vial) 4 mg IVPUSH QID PRN PRN Reason: Nausea Last Admin: 10/08/23 23:15 Dose: 4 mg Documented By: REGULO Prednisone (Prednisone 10 Mg Tablet) 10 mg PO DAILY [facility] Last Admin: 10/09/23 08:43 Dose: Not Given Documented By: BRANDI Non-Admin Reason: Patient Refused Sodium Chloride (0.9 % Sodium Chloride Flush 3 Ml Syringe) 3 ml IVFLUSH QSHIFT [facility] Last Admin: 10/09/23 08:40 Dose: Not Given Documented By: BRANDI Non-Admin Reason: IV Running Tiotropium Lequire (Tiotropium Lequire 2.5 Mcg 1 Puff/2.5 Mcg Mist.Inhal) 2 puff INHALE RDAILY [facility] Last Admin: 10/09/23 11:49 Dose: 2 puff Documented By: DAREN Zolpidem Tartrate (Zolpidem Tartrate 5 Mg Tablet) 5 mg PO BEDTIME PRN PRN Reason: Insomnia Labs 10/09/23 06:42 10/09/23 06:42 Labs: Laboratory Results - last 24 hr 10/08/23 10/09/23 15:28 06:42 MCV 91.0 MCH 30.6 MCHC 33.6 RDW 13.5 Plt Count 218 MPV 11.3 Immature Gran % (Auto) 0.2 Neut % (Auto) 63.9 Lymph % (Auto) 17.3 L [place] % (Auto) 8.4 Eos % (Auto) 9.1 H Baso % (Auto) 1.1 Lymph # (Auto) 0.8 L [place] # (Auto) 0.4 Eos # (Auto) 0.4 Baso # (Auto) 0.1 Abs Immat Gran (auto) 0.01 Absolute Neuts (auto) 3.0 Absolute Nucleated RBC 0.000 Nucleated RBC % (auto) 0.0 Anion Gap 11 L Estim Creat Clear Calc 80.9 Estimated GFR > 60 POC Glucose 118 H Random Glucose 103 Calcium 9.1 Total Bilirubin 4.3 H Direct Bilirubin 1.8 H AST 780 H ALT 840 H Alkaline Phosphatase 153 H Total Protein 6.1 L Albumin 3.4 L Assessment and Plan (1) Choledocholithiasis with acute cholecystitis: Status: Acute (2) Asthma-COPD overlap syndrome: Status: Acute Plan 73-year-old female with history of OTILIO not on CPAP, hypertension, asthma/COPD overlap syndrome, chronic pain disorder, history of skin cancer, GERD admitted to general surgery for acute cholecystitis and choledocholithiasis with consult placed hospitalist service for medical management. #Cholecystitis/Choledocolithiasis Plan for CCY by general surgery #Asthma/copd overlap mild wheezing CXR negative for infiltrates no indication for steroids at this time. Continue duonebs q4h Continue home inhalers #HTN Continue diltiazem Hold lisinopril and HCT for now #Chronic pain syndrome pain management as ordered by general surgery. continue gabapentin #Mood disorder continue home meds Thank you for this consult, we will continue to follow along with you as needed Quality Stroke Does the patient have a stroke diagnosis?: No VTE Prior VTE?: No VTE Risk Level:: Surgical - moderate VTE Device Contraindication: N/A - Device Ordered VTE Drug Contraindication: Treatment Not Indicated
--- NOTE | 2023-10-09 13:48 | P.CONAN_ITS ---
[facility] Active Problems Active Problems: All Active Problems Choledocholithiasis with acute cholecystitis (Acute) Acute cholecystitis due to biliary calculus (Acute) Biliary colic (Acute) Gallstones (Acute) LUQ abdominal pain (Acute) Atelectasis of left lung (Acute) COVID-19 (Acute) Osteoarthritis of left knee (Acute) Chronic pain syndrome (Acute) Spondylosis of lumbar spine (Acute) Sacroiliac joint dysfunction of right side (Acute) Sacroiliitis (Acute) Disc degeneration, lumbar (Acute) OTILIO (obstructive sleep apnea) (Acute) Early satiety (Acute) Lumbar facet arthropathy (Acute) Thoracic spondylosis (Acute) Bilateral lower abdominal pain (Acute) Bronchitis (Acute) Biliary dyskinesia (Acute) GERD (gastroesophageal reflux disease) (Acute) Chronic idiopathic constipation (Acute) Spasm of bowel (Acute) Diverticulitis large intestine (Acute) Patellofemoral arthralgia of left knee (Acute) Hematuria (Acute) Left flank pain (Acute) Nephrolithiasis (Acute) Gallstones (Acute) Thoracic spondylosis (Acute) Dextroscoliosis (Acute) Tubular adenoma of colon (Acute) Abdominal pain (Acute) Abdominal cramping (Acute) Low back pain (Acute) Pulmonary nodule (Acute) Severe asthma (Acute) Primary osteoarthritis involving multiple joints (Acute) Chronic allergic rhinitis (Acute ~03/09/20) Asthma-COPD overlap syndrome (Acute) Past Medical History Medical History Atelectasis of left lung Chronic pain syndrome 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 Sacroiliitis Disc degeneration, lumbar OTILIO (obstructive sleep apnea) Back pain HTN (hypertension) Skin cancer (melanoma) GERD (gastroesophageal reflux disease) Depression OTILIO (obstructive sleep apnea) Kidney stones Pulmonary nodule Severe asthma Primary osteoarthritis involving multiple joints Pneumonia Chronic allergic rhinitis (~03/09/20) Asthma-COPD overlap syndrome Functional capacity: independent ambulation Patient : No Family History Family History Father No problems noted. Mother No problems noted. Family history of problems with anesthesia: No Surgical History Surgical History History of bronchoscopy History of cystoscopy History of laparoscopic appendectomy History of nasal surgery Hx of section Hx of tubal ligation Hx of colonoscopy History of esophagogastroduodenoscopy (EGD) Hx of knee surgery History of Problems with Anesthesia: No Social History Social History Household Members: Children Housing: Apartment Do you presently have visiting nurse or other home services: Yes (component technician's 02/12) Alcohol intake: never Patient Tobacco Use Status: Never used Tobacco Second Hand Smoke Exposure: No Current occupational status: disabled Current occupation: rt handed Meds Allergies Allergy/AdvReac Type Severity Reaction Status Date / Time morphine [MORPHINE] Allergy Intermediate NAUSEA, Verified 10/08/23 05:15 rash, redness Active Medications: Current Medications Albuterol/Ipratropium (Albuterol/Iprat 2.5/0.5mg 3 Ml Ampul.Neb) 3 ml INHALE RQ4H WHILE AWAKE [facility] Last Admin: 10/09/23 11:49 Dose: 3 ml Diltiazem HCl (Diltiazem Hcl Cd 240 Mg Cap.Er.Deg) 240 mg PO DAILY [facility]; Protocol Last Admin: 10/09/23 08:39 Dose: 240 mg Docusate Sodium (Docusate Sodium 100 Mg Capsule) 100 mg PO .BID WITH FOOD [facility] Dextrose/Lactated Ringer's (D5lr) 1,000 mls @ 125 mls/hr IVCONT .Q8H [facility] Last Admin: 10/09/23 09:47 Dose: 125 mls/hr Piperacillin Sod/Tazobactam (Sod 3.375 gm/ Sodium Chloride) 50 mls @ 100 mls/hr IV Q6H [facility] Last Admin: 10/09/23 12:36 Dose: 100 mls/hr Acetaminophen (Ofirmev) 1,000 mg in 100 mls @ 400 mls/hr IV Q6H [facility] Last Infusion: 10/09/23 11:45 Dose: Infused Montelukast Sodium (Montelukast Sodium 10 Mg Tablet) 10 mg PO DAILY [facility] Last Admin: 10/09/23 08:41 Dose: Not Given Omeprazole (Omeprazole 20 Mg Capsule.Dr) 20 mg PO DAILY@0630 [facility] Last Admin: 10/09/23 08:41 Dose: Not Given Ondansetron HCl (Ondansetron Hcl 4 Mg/2 Ml Vial) 4 mg IVPUSH QID PRN PRN Reason: Nausea Last Admin: 10/08/23 23:15 Dose: 4 mg Prednisone (Prednisone 10 Mg Tablet) 10 mg PO DAILY [facility] Last Admin: 10/09/23 08:43 Dose: Not Given Sodium Chloride (0.9 % Sodium Chloride Flush 3 Ml Syringe) 3 ml IVFLUSH QSHIFT [facility] Last Admin: 10/09/23 08:40 Dose: Not Given Tiotropium Rodessa (Tiotropium [place] 2.5 Mcg 1 Puff/2.5 Mcg Mist.Inhal) 2 puff INHALE RDAILY [facility] Last Admin: 10/09/23 11:49 Dose: 2 puff Zolpidem Tartrate (Zolpidem Tartrate 5 Mg Tablet) 5 mg PO BEDTIME PRN PRN Reason: Insomnia Home Medications ?Medication ?Instructions ?Recorded ?Confirmed ?Last Taken ?Type aspirin 81 mg chewable tablet 1 tab PO DAILY 03/09/20 10/08/23 Unknown History carvedilol 3.125 mg tablet 3.125 mg PO BID 03/09/20 03/22/21 Unknown History diltiazem HCl 240 mg 240 mg PO DAILY 03/09/20 10/08/23 Unknown History capsule,extended release 24 hr lisinopril 40 mg tablet 40 mg PO DAILY 03/09/20 10/08/23 01/19/21 History nebulizers 07/15/23 Unknown History cholecalciferol (vitamin D3) 50 50 mcg PO DAILY 09/18/23 10/08/23 Unknown History mcg (2,000 unit) capsule (Vitamin D3) acetaminophen 650 mg 650 mg PO Q6H PRN pain or fever 10/08/23 10/08/23 Unknown History tablet,extended release alendronate 70 mg tablet 70 mg PO QWEEK 10/08/23 10/08/23 Unknown History hydrochlorothiazide 25 mg tablet 25 mg PO DAILY 10/08/23 10/08/23 Unknown History metformin 500 mg tablet 500 mg PO DAILY 10/08/23 10/08/23 Unknown History naproxen 250 mg tablet 250 mg PO BID PRN mild pain 10/08/23 10/08/23 Unknown History Exam Height,Weight and Vital Signs: Height 5 ft 3 in Weight 92.8 kg Last Vital Signs Temp 98.6 F 10/09/23 12:31 Pulse 67 10/09/23 12:31 Resp 16 10/09/23 12:31 BP 169/76 H 10/09/23 12:31 Pulse Ox 95 10/09/23 12:31 O2 Del Method Room Air 10/09/23 12:31 Pertinent Lab Results Pertinent Lab Results: Laboratory Tests 10/08/23 10/08/23 10/08/23 05:11 11:04 15:28 WBC 9.3 RBC 4.46 Hgb 13.5 Hct 40.9 MCV 91.7 MCH 30.3 MCHC 33.0 RDW 13.3 Plt Count 262 MPV 10.6 Immature Gran % (Auto) 0.3 Neut % (Auto) 79.9 H Lymph % (Auto) 11.4 L [place] % (Auto) 6.9 Eos % (Auto) 1.2 Baso % (Auto) 0.3 Lymph # (Auto) 1.1 L [place] # (Auto) 0.6 Eos # (Auto) 0.1 Baso # (Auto) 0.0 Abs Immat Gran (auto) 0.03 Absolute Neuts (auto) 7.5 Absolute Nucleated RBC 0.000 Nucleated RBC % (auto) 0.0 PT 13.3 INR 1.1 Sodium 141 Potassium 3.7 Chloride 107 Carbon Dioxide 26 Anion Gap 12 BUN 13 Creatinine 0.69 Estim Creat Clear Calc 72.3 Estimated GFR > 60 POC Glucose 118 H Random Glucose 136 H Calcium 9.6 Total Bilirubin 2.1 H Direct Bilirubin AST 467 H ALT 262 H Alkaline Phosphatase 98 Troponin I High Sens 4.5 Total Protein 7.0 Albumin 4.0 Lipase 33 Blood Type O Positive Antibody Screen NEGATIVE 10/09/23 06:42 WBC 4.7 L RBC 4.12 L Hgb 12.6 Hct 37.5 MCV 91.0 MCH 30.6 MCHC 33.6 RDW 13.5 Plt Count 218 MPV 11.3 Immature Gran % (Auto) 0.2 Neut % (Auto) 63.9 Lymph % (Auto) 17.3 L [place] % (Auto) 8.4 Eos % (Auto) 9.1 H Baso % (Auto) 1.1 Lymph # (Auto) 0.8 L [place] # (Auto) 0.4 Eos # (Auto) 0.4 Baso # (Auto) 0.1 Abs Immat Gran (auto) 0.01 Absolute Neuts (auto) 3.0 Absolute Nucleated RBC 0.000 Nucleated RBC % (auto) 0.0 PT INR Sodium 143 Potassium 3.6 Chloride 109 H Carbon Dioxide 27 Anion Gap 11 L BUN 6 L Creatinine 0.66 Estim Creat Clear Calc 80.9 Estimated GFR > 60 POC Glucose Random Glucose 103 Calcium 9.1 Total Bilirubin 4.3 H Direct Bilirubin 1.8 H AST 780 H ALT 840 H Alkaline Phosphatase 153 H Troponin I High Sens Total Protein 6.1 L Albumin 3.4 L Lipase Blood Type Antibody Screen Airway Mallampati Class: III TM Dist: >3cm Neck ROM: Full Heart: RRR Lungs: CTA Assessment and Plan Assessment Anesthesia Assessment: Anesthesia Plan Discussed Final Anesthetic Review Family History of Problems with Anesthesia: No History of Problems with Anesthesia: No NPO: Yes ASA Class: III and Emergency Final Preanesthetic Review: Meds/Allgs Chart Reviewed, Consent Obtained/Reviewed and Anes Risks/Benef Reviewed Patient Risk: Intermediate Procedure Risk: Intermediate Anesthetic Plan Anesthetic Plan: GA Disposition: Standard PACU
--- NOTE | 2023-10-09 15:22 | W.PM.OPN ---
Operative Note Operative Note Date of Service: 10/09/23 Narrative: Preoperative diagnosis: Acute cholecystitis, cholelithiasis Postoperative diagnosis: Same Procedure: Laparoscopic cholecystectomy Surgeon: Zaki Cheung MD Acupressurist: ALIN Santoro Anesthesia: General endotracheal Indications for procedure: 73-year-old female patient presenting with acute onset of right upper quadrant abdominal pain associated with nausea and vomiting. Workup revealed elevated LFTs. CT and ultrasound confirmed gallstones within the gallbladder. No evidence of common bile duct stones on MRCP. Operative findings: Distended gallbladder acutely inflamed with multiple gallstones. Specimen: gallbladder Estimated blood loss: 10 mL Complications: None Procedure details: Patient was brought to the OR and placed in a supine position. After administering general anesthesia the patient's abdomen was prepped with ChloraPrep and draped in a sterile fashion. A surgical time-out was called the consent confirmed. Patient received preoperative antibiotics and Venodyne boots were in place. Local anesthesia consisting of 0.5% Sensorcaine without epinephrine was infiltrated in a periumbilical region. A 5 mm incision was made above the umbilicus in a transverse fashion. The Veress needle was then inserted while elevating abdominal cavity with towel clips. After positive drop test the abdomen was insufflated to a pressure of 15 mm of mercury. The Veress needle was then removed and a 5 mm trocar inserted. The camera was inserted in the abdomen explored. A 12 mm trocar was then placed in the epigastrium. Two 5 mm trocars placed in the right upper quadrant by the administrative services assistant. The patient was placed in reverse Trendelenburg positioning and rotated to the left. The gallbladder was grasped with the fundus and retracted cephalad by the administrative services assistant. The infundibulum was then grasped and retracted away from the liver bed, also by the administrative services assistant. The Dolphin dissected was then used by the surgeon to dissect the peritoneum off the infundibulum to reveal the junction with the cystic duct. Cystic artery was noted slightly medial and posterior to the cystic duct. After obtaining a critical view the cystic duct was doubly clipped and divided. The cystic artery was then doubly clipped and divided. The gallbladder was then dissected off the liver bed using electrocautery with an L hook. Hemostasis was assured all times using the electrocautery. When the gallbladder is completely dissected off the liver bed was placed in an Endo-Catch bag and brought out through the epigastric incision. The gallbladder was sent to pathology for further examination. The abdomen was then re-examined. The liver bed was irrigated and suctioned dry. No bleeding or bile leak could be identified. CO2 was then evacuated and all trocars removed. Fascia was closed at the epigastric incision using a [id number] 0 Polysorb suture. Skin was closed in all incisions using a subcuticular 4 0 Polysorb suture by both the surgeon and administrative services assistant. Sterile dressings consisting of Steri-Strips, 2 x 2 gauze, and Tegaderm were then applied. The patient tolerated the procedure well. Sponge instrument and needle counts reported as correct. The patient was transferred to PACU in stable condition.
[2023-10-09] MEDS: fentaNYL citrate/PF 100 MCG/2 ML VIAL 25 MCG IVPUSH ×4 (15:33→15:56)
[2023-10-09] MEDS: Ketorolac Tromethamine 15 MG/ML VIAL IVPUSH (17:11)
[2023-10-09] MEDS: HYDROmorphone HCl 0.5 MG/0.5 ML SYRINGE IVPUSH ×2 (18:39→21:41)
[2023-10-09] MEDS: ondansetron HCL 4 MG/2 ML VIAL IVPUSH (18:43)
[2023-10-09] MEDS: Zolpidem Tartrate 5 MG TABLET PO (21:46)
[2023-10-10] VITALS (10 sets, daily range): BP systolic 123–154; BP diastolic 58–72; PULSE 65–84; RESP 16–20; TEMP 35.9–36.6; O2SAT 95–98
[2023-10-10] MEDS: Acetaminophen 1,000 MG/100 ML PIGGYBACK 400 MG IV ×3 (05:15→17:25)
[2023-10-10] MEDS: Omeprazole 20 MG CAPSULE.DR PO (05:29)
[2023-10-10] MEDS: oxyCODONE HCl Immed Release 5 MG TABLET PO ×2 (05:29→13:19)
[2023-10-10 05:42] LABS: Hematocrit 36.8 % (37.0-47.0); Hemoglobin 12.1 g/dl (12.0-16.0); Mean Corpuscular HGB Conc 32.9 g/dl (31.0-35.0); Mean Corpuscular Hemoglobin 30.4 pg (27.0-33.0); Mean Corpuscular Volume 92.5 fL (80.0-98.0); Mean Platelet Volume 11.2 fL (9.4-12.3); Platelet Count 237 X10*3/uL (160-400); Red Blood Count 3.98 X10*6/uL (4.20-5.50); Red Cell Distribution Width 13.5 % (11.0-16.0); White Blood Count 8.7 X10*3/uL (4.8-10.8)
[2023-10-10] MEDS: Piperacillin Sodium/Tazobactam 3.375 GM in 0.9 % Sodium Chloride 50 ML IV ×4 (05:45→23:53)
[2023-10-10 06:12] LABS: Alanine Aminotransferase 637 U/L (0-31); Albumin Level 3.4 g/dL (3.5-5.0); Alkaline Phosphatase 140 U/L (39-117); Anion Gap 10 (12-20); Aspartate Amino Transferase 356 U/L (5-31); Bilirubin Direct 0.7 mg/dL (0.0-0.5); Bilirubin Total 1.9 mg/dL (0.0-1.0); Blood Urea Nitrogen 5 mg/dL (9-16); Calcium 9.5 mg/dL (8.4-10.2); Carbon Dioxide 28 mmol/L (22-29); Chloride 107 mmol/L (96-108); Creatinine Clr Calc Pharmacy 75.2; Estimated Glomerular Filt Rate > 60; Glucose Random 157 mg/dL (60-115); Potassium 4.2 mmol/L (3.3-5.1); Sodium 141 mmol/L (135-145); Total Protein 6.2 g/dL (6.5-8.0)
[2023-10-10] MEDS: Albuterol/Iprat 2.5/0.5MG 3 ML AMPUL.NEB INHALE ×4 (07:38→20:00)
[2023-10-10] MEDS: Tiotropium Bromide 2.5 mcg 1 PUFF/2.5 MCG MIST.INHAL 2 PUFF INHALE (07:44)
[2023-10-10] MEDS: Dextrose 5 % and Lactated Ring 1,000 ML 125 ML IVCONT (08:16)
[2023-10-10] MEDS: 0.9 % Sodium Chloride Flush 3 ML SYRINGE IVFLUSH ×3 (08:17→19:43)
[2023-10-10] MEDS: Montelukast Sodium 10 MG TABLET PO (08:19)
[2023-10-10] MEDS: lisinopriL 20 MG TABLET PO (08:19)
[2023-10-10] MEDS: predniSONE 10 MG TABLET PO (08:19)
[2023-10-10] MEDS: Aspirin 81 MG TAB.CHEW PO (08:19)
[2023-10-10] MEDS: dilTIAZem HCL CD 240 MG CAP.ER.DEG PO (08:20)
[2023-10-10] MEDS: ondansetron HCL 4 MG/2 ML VIAL IVPUSH ×2 (08:45→19:40)
[2023-10-10] MEDS: HYDROmorphone HCl 0.5 MG/0.5 ML SYRINGE IVPUSH ×4 (08:52→23:51)
--- NOTE | 2023-10-10 09:04 | PC.NURSE ---
Lungs bilateral bases coarse crackles,no SOB,pt states she is a diabetic,Dr. Morin notified,encouraged deep breathing
--- NOTE | 2023-10-10 09:41 | PM.PNGS ---
Subjective Subjective Date of Service: 10/10/23 Interval history: Pod 1 following laparoscopic cholecystectomy for acute cholecystitis due to cholelithiasis. Patient reports some nausea this morning and incisional discomfort. She also has pain in the back. She ate some Jell-O last evening. Physical Exam Vital Signs: Vital Signs: Last Vital Signs Temp 98 F 10/10/23 06:49 Pulse 73 10/10/23 08:20 Resp 18 10/10/23 07:42 BP 150/71 H 10/10/23 08:20 Pulse Ox 97 10/10/23 06:49 O2 Del Method Nasal Cannula 10/10/23 06:49 O2 Flow Rate 2 10/10/23 03:33 BMI result Body Mass Index 36.2 Const: General: no acute distress Nutritional Appearance: well nourished Orientation/consciousness: patient oriented x3 Resp: Effort & Inspection: normal respiratory effort GI: Other: Softly distended abdomen. Trocar incisions are clean, dry, and intact without redness or discharge. Skin: Other: Warm, dry, normal color Neuro: General: patient oriented x3 Objective Data Active Medications Albuterol/Ipratropium (Albuterol/Iprat 2.5/0.5mg 3 Ml Ampul.Neb) 3 ml INHALE RQ4H WHILE AWAKE [facility] Last Admin: 10/10/23 07:38 Dose: 3 ml Documented By: JINA Aspirin (Aspirin 81 Mg Tab.Chew) 81 mg PO DAILY [facility] Last Admin: 10/10/23 08:19 Dose: 81 mg Documented By: WILFREDO Diltiazem HCl (Diltiazem Hcl Cd 240 Mg Cap.Er.Deg) 240 mg PO DAILY [facility]; Protocol Last Admin: 10/10/23 08:20 Dose: 240 mg Documented By: WILFREDO Docusate Sodium (Docusate Sodium 100 Mg Capsule) 100 mg PO .BID WITH FOOD [facility] Hydromorphone HCl (Hydromorphone Hcl 0.5 Mg/0.5 Ml Syringe) 0.5 mg IVPUSH Q3H PRN; Protocol PRN Reason: Pain, Severe (Pain Scale 7-10) Last Admin: 10/10/23 08:52 Dose: 0.5 mg Documented By: WILFREDO Dextrose/Lactated Ringer's (D5lr) 1,000 mls @ 125 mls/hr IVCONT .Q8H [facility] Last Admin: 10/10/23 08:16 Dose: 125 mls/hr Documented By: WILFREDO Piperacillin Sod/Tazobactam (Sod 3.375 gm/ Sodium Chloride) 50 mls @ 100 mls/hr IV Q6H [facility] Last Infusion: 10/10/23 06:16 Dose: Infused Documented By: MATI Acetaminophen (Ofirmev) 1,000 mg in 100 mls @ 400 mls/hr IV Q6H [facility] Last Infusion: 10/10/23 05:44 Dose: Infused Documented By: MATI Lisinopril (Lisinopril 20 Mg Tablet) 20 mg PO DAILY [facility]; Protocol Last Admin: 10/10/23 08:19 Dose: 20 mg Documented By: WILFREDO Montelukast Sodium (Montelukast Sodium 10 Mg Tablet) 10 mg PO DAILY [facility] Last Admin: 10/10/23 08:19 Dose: 10 mg Documented By: WILFREDO Omeprazole (Omeprazole 20 Mg Capsule.Dr) 20 mg PO DAILY@0630 [facility] Last Admin: 10/10/23 05:29 Dose: 20 mg Documented By: MATI Ondansetron HCl (Ondansetron Hcl 4 Mg/2 Ml Vial) 4 mg IVPUSH QID PRN PRN Reason: Nausea Last Admin: 10/10/23 08:45 Dose: 4 mg Documented By: WILFREDO Oxycodone HCl (Oxycodone Hcl Immed Release 5 Mg Tablet) 5 mg PO Q6H PRN PRN Reason: Pain, Moderate(Pain Scale 4-6) Last Admin: 10/10/23 05:29 Dose: 5 mg Documented By: MATI Prednisone (Prednisone 10 Mg Tablet) 10 mg PO DAILY [facility] Last Admin: 10/10/23 08:19 Dose: 10 mg Documented By: WILFREDO Sodium Chloride (0.9 % Sodium Chloride Flush 3 Ml Syringe) 3 ml IVFLUSH QSHIFT [facility] Last Admin: 10/10/23 08:17 Dose: 3 ml Documented By: WILFREDO Tiotropium [place] (Tiotropium [place] 2.5 Mcg 1 Puff/2.5 Mcg Mist.Inhal) 2 puff INHALE RDAILY [facility] Last Admin: 10/10/23 07:44 Dose: 2 puff Documented By: JINA Zolpidem Tartrate (Zolpidem Tartrate 5 Mg Tablet) 5 mg PO BEDTIME PRN PRN Reason: Insomnia Last Admin: 10/09/23 21:46 Dose: 5 mg Documented By: MATI Labs 10/10/23 05:18 10/10/23 05:18 Labs: Laboratory Results - last 24 hr 10/10/23 05:18 MCV 92.5 MCH 30.4 MCHC 32.9 RDW 13.5 Plt Count 237 MPV 11.2 Absolute Nucleated RBC 0.000 Nucleated RBC % (auto) 0.0 Anion Gap 10 L Estim Creat Clear Calc 75.2 Estimated GFR > 60 Random Glucose 157 H Calcium 9.5 Total Bilirubin 1.9 H Direct Bilirubin 0.7 H AST 356 H ALT 637 H Alkaline Phosphatase 140 H Total Protein 6.2 L Albumin 3.4 L Procedures Date of Service Date of Service: 10/10/23 Progress Note: A&P Assessment and plan (1) Acute cholecystitis due to biliary calculus: Status: Acute Plan 73-year-old female patient found to have acute cholecystitis due to cholelithiasis. LFTs were initially elevated but subsequent MRI was negative for common bile duct stone. She is now pod 1 following laparoscopic cholecystectomy. LFTs are improving postoperatively. Will recheck in a.m.. Continue clear liquid. Will switch to LR. Time Spent With Patient Time: Total time managing care of this patient today ____ minutes. Quality Stroke Does the patient have a stroke diagnosis?: No VTE Prior VTE?: No VTE Risk Level:: Surgical - moderate VTE Device Contraindication: N/A - Device Ordered VTE Drug Contraindication: Treatment Not Indicated
[2023-10-10 10:01] LABS: Estimated Average Glucose 103 mg/dL; Hemoglobin A1c % 5.2 % (<6.0)
[2023-10-10] MEDS: Lactated Ringers 1,000 ML 80 ML IVCONT (10:15)
--- NOTE | 2023-10-10 11:51 | P.PNIM_ITS ---
Subjective Subjective Date of Service: 10/10/23 Interval History: seen and evaluated this morning having surgical site pain On 2L O2, denies SOB Tolerating diet Review of Systems Review of Systems: Yes all other systems are reviewed and are negative Physical Exam 2 Vital Signs: Vital Signs: Last Vital Signs Temp 98 F 10/10/23 06:49 Pulse 77 10/10/23 11:25 Resp 20 10/10/23 11:25 BP 150/71 H 10/10/23 08:20 Pulse Ox 97 10/10/23 06:49 O2 Del Method Nasal Cannula 10/10/23 06:49 O2 Flow Rate 2 10/10/23 03:33 BMI result Body Mass Index 36.2 Const: Other: Constitutional : Awake, interactive, not in distress Cardiovascular : RRR, no JVP, no lower extremity edema Respiratory : good bilateral air entry, expiratory scattered wheezing , basal fine crackles Gastrointestinal: soft, lax, Normal bowel sounds, mild tenderness at surgical site Neurological : Alert & oriented x3, No focal deficit Objective Data Active Medications Albuterol/Ipratropium (Albuterol/Iprat 2.5/0.5mg 3 Ml Ampul.Neb) 3 ml INHALE RQ4H WHILE AWAKE [facility] Last Admin: 10/10/23 11:23 Dose: 3 ml Documented By: JINA Aspirin (Aspirin 81 Mg Tab.Chew) 81 mg PO DAILY [facility] Last Admin: 10/10/23 08:19 Dose: 81 mg Documented By: WILFREDO Diltiazem HCl (Diltiazem Hcl Cd 240 Mg Cap.Er.Deg) 240 mg PO DAILY [facility]; Protocol Last Admin: 10/10/23 08:20 Dose: 240 mg Documented By: WILFREDO Docusate Sodium (Docusate Sodium 100 Mg Capsule) 100 mg PO .BID WITH FOOD [facility] Hydromorphone HCl (Hydromorphone Hcl 0.5 Mg/0.5 Ml Syringe) 0.5 mg IVPUSH Q3H PRN; Protocol PRN Reason: Pain, Severe (Pain Scale 7-10) Last Admin: 10/10/23 08:52 Dose: 0.5 mg Documented By: WILFREDO Piperacillin Sod/Tazobactam (Sod 3.375 gm/ Sodium Chloride) 50 mls @ 100 mls/hr IV Q6H [facility] Last Infusion: 10/10/23 06:16 Dose: Infused Documented By: MATI Acetaminophen (Ofirmev) 1,000 mg in 100 mls @ 400 mls/hr IV Q6H [facility] Last Infusion: 10/10/23 05:44 Dose: Infused Documented By: MATI Lactated Ringer's (Lr) 1,000 mls @ 80 mls/hr IVCONT .[id number] [facility] Last Admin: 10/10/23 10:15 Dose: 80 mls/hr Documented By: WILFREDO Lisinopril (Lisinopril 20 Mg Tablet) 20 mg PO DAILY [facility]; Protocol Last Admin: 10/10/23 08:19 Dose: 20 mg Documented By: WILFREDO Montelukast Sodium (Montelukast Sodium 10 Mg Tablet) 10 mg PO DAILY [facility] Last Admin: 10/10/23 08:19 Dose: 10 mg Documented By: WILFREDO Omeprazole (Omeprazole 20 Mg Capsule.Dr) 20 mg PO DAILY@0630 [facility] Last Admin: 10/10/23 05:29 Dose: 20 mg Documented By: MATI Ondansetron HCl (Ondansetron Hcl 4 Mg/2 Ml Vial) 4 mg IVPUSH QID PRN PRN Reason: Nausea Last Admin: 10/10/23 08:45 Dose: 4 mg Documented By: WILFREDO Oxycodone HCl (Oxycodone Hcl Immed Release 5 Mg Tablet) 5 mg PO Q6H PRN PRN Reason: Pain, Moderate(Pain Scale 4-6) Last Admin: 10/10/23 05:29 Dose: 5 mg Documented By: MATI Prednisone (Prednisone 10 Mg Tablet) 10 mg PO DAILY [facility] Last Admin: 10/10/23 08:19 Dose: 10 mg Documented By: WILFREDO Sodium Chloride (0.9 % Sodium Chloride Flush 3 Ml Syringe) 3 ml IVFLUSH QSHIFT [facility] Last Admin: 10/10/23 08:17 Dose: 3 ml Documented By: WILFREDO Tiotropium [place] (Tiotropium [place] 2.5 Mcg 1 Puff/2.5 Mcg Mist.Inhal) 2 puff INHALE RDAILY [facility] Last Admin: 10/10/23 07:44 Dose: 2 puff Documented By: HO.FIGURAI Zolpidem Tartrate (Zolpidem Tartrate 5 Mg Tablet) 5 mg PO BEDTIME PRN PRN Reason: Insomnia Last Admin: 10/09/23 21:46 Dose: 5 mg Documented By: MATI Labs 10/10/23 05:18 10/10/23 05:18 Labs: Laboratory Results - last 24 hr 10/10/23 05:18 MCV 92.5 MCH 30.4 MCHC 32.9 RDW 13.5 Plt Count 237 MPV 11.2 Absolute Nucleated RBC 0.000 Nucleated RBC % (auto) 0.0 Anion Gap 10 L Estim Creat Clear Calc 75.2 Estimated GFR > 60 Random Glucose 157 H Estimat Average Glucose 103 Hemoglobin A1c % 5.2 Calcium 9.5 Total Bilirubin 1.9 H Direct Bilirubin 0.7 H AST 356 H ALT 637 H Alkaline Phosphatase 140 H Total Protein 6.2 L Albumin 3.4 L Assessment and Plan (1) Choledocholithiasis with acute cholecystitis: Status: Acute (2) Acute cholecystitis due to biliary calculus: Status: Acute Plan 73-year-old female with history of OTILIO not on CPAP, hypertension, asthma/COPD overlap syndrome, chronic pain disorder, history of skin cancer, GERD admitted to general surgery for acute cholecystitis and choledocholithiasis with consult placed hospitalist service for medical management. #Cholecystitis/Choledocolithiasis POD1 followed by general surgery #Asthma/copd overlap mild wheezing CXR negative for infiltrates no indication for steroids at this time. Continue duonebs q4h Add Incentive spirometry DC IVF Continue home inhalers #HTN Continue diltiazem Hold lisinopril and HCT for now #Chronic pain syndrome pain management as ordered by general surgery. continue gabapentin #Mood disorder continue home meds Thank you for this consult, we will continue to follow along with you as needed Quality Stroke Does the patient have a stroke diagnosis?: No VTE Prior VTE?: No VTE Risk Level:: Surgical - moderate VTE Device Contraindication: N/A - Device Ordered VTE Drug Contraindication: Treatment Not Indicated
--- NOTE | 2023-10-10 15:54 | HO.POSTANES ---
Post Anesthesia Evaluation Post Anesthesia Evaluation Date of Service: 10/10/23 Vital Signs: Vital Signs Temp Pulse Resp BP Pulse Ox O2 Del Method O2 Flow Rate 10/10/23 15:32 96.7 F L 84 18 142/66 H 97 Nasal Cannula 2.0 10/10/23 15:14 65 20 10/10/23 11:25 77 20 10/10/23 08:20 73 150/71 H 10/10/23 08:19 150/71 H 10/10/23 07:42 73 18 10/10/23 06:49 98 F 70 16 150/71 H 97 Nasal Cannula Anesthesia: General Endotracheal-GETA Mental Status: Awake Pain Control: Satisfactory Nausea/Vomiting: None Hydration: Adequate Anesthesia-Related Issues: No Anes. Related Issues
[2023-10-10] MEDS: Lidocaine 4 % Patch ADH..PATCH 1 PATCH TRANSDERMA (19:40)
[2023-10-10] MEDS: Zolpidem Tartrate 5 MG TABLET PO (23:59)
[2023-10-11] VITALS (12 sets, daily range): BP systolic 129–154; BP diastolic 68–78; PULSE 64–78; RESP 16–20; TEMP 36.1–36.9; O2SAT 94–99
[2023-10-11] MEDS: Piperacillin Sodium/Tazobactam 3.375 GM in 0.9 % Sodium Chloride 50 ML IV ×4 (05:38→23:32)
[2023-10-11] MEDS: Acetaminophen 1,000 MG/100 ML PIGGYBACK 400 MG IV ×4 (05:38→22:59)
[2023-10-11] MEDS: HYDROmorphone HCl 0.5 MG/0.5 ML SYRINGE IVPUSH (05:38)
[2023-10-11] MEDS: Omeprazole 20 MG CAPSULE.DR PO (05:38)
[2023-10-11] MEDS: ondansetron HCL 4 MG/2 ML VIAL IVPUSH ×2 (05:47→17:22)
[2023-10-11 06:27] LABS: Alanine Aminotransferase 456 U/L (0-31); Albumin Level 3.5 g/dL (3.5-5.0); Alkaline Phosphatase 126 U/L (39-117); Aspartate Amino Transferase 157 U/L (5-31); Bilirubin Direct 0.6 mg/dL (0.0-0.5); Bilirubin Total 1.6 mg/dL (0.0-1.0); Total Protein 6.2 g/dL (6.5-8.0)
[2023-10-11] MEDS: Albuterol/Iprat 2.5/0.5MG 3 ML AMPUL.NEB INHALE ×4 (07:41→21:08)
[2023-10-11] MEDS: predniSONE 10 MG TABLET PO (07:54)
[2023-10-11] MEDS: dilTIAZem HCL CD 240 MG CAP.ER.DEG PO (07:54)
[2023-10-11] MEDS: Lidocaine 4 % Patch ADH..PATCH 1 PATCH TRANSDERMA (07:54)
[2023-10-11] MEDS: Tiotropium Bromide 2.5 mcg 1 PUFF/2.5 MCG MIST.INHAL 2 PUFF INHALE (07:55)
[2023-10-11] MEDS: 0.9 % Sodium Chloride Flush 3 ML SYRINGE IVFLUSH ×3 (07:55→23:01)
[2023-10-11] MEDS: Montelukast Sodium 10 MG TABLET PO (07:56)
[2023-10-11] MEDS: Aspirin 81 MG TAB.CHEW PO (07:56)
[2023-10-11] MEDS: lisinopriL 20 MG TABLET PO (07:58)
--- NOTE | 2023-10-11 10:12 | PC.NURSE ---
Patient ambulated in the hallway,became weak and dizzy on a way back,assisted back to bed,feels better at present,BP 162/82 pulse 66 sat 96% on 2L
[2023-10-11] MEDS: Ketorolac Tromethamine 15 MG/ML VIAL IVPUSH ×2 (10:59→17:01)
--- NOTE | 2023-10-11 11:42 | P.PNIM_ITS ---
Subjective Subjective Date of Service: 10/11/23 Interval History: seen and evaluated this morning having surgical site pain, getting confused with dilaudid On 2L O2, denies SOB Tolerating diet Review of Systems Review of Systems: Yes all other systems are reviewed and are negative Physical Exam 2 Vital Signs: Vital Signs: Last Vital Signs Temp 96.9 F 10/11/23 07:20 Pulse 68 10/11/23 11:01 Resp 18 10/11/23 11:01 BP 138/76 10/11/23 07:58 Pulse Ox 95 10/11/23 07:20 O2 Del Method Nasal Cannula 10/11/23 07:20 O2 Flow Rate 2 10/11/23 07:20 BMI result Body Mass Index 36.2 Const: Other: Constitutional : Awake, interactive, not in distress Cardiovascular : RRR, no JVP, no lower extremity edema Respiratory : good bilateral air entry, expiratory scattered wheezing , basal fine crackles Gastrointestinal: soft, lax, Normal bowel sounds, mild tenderness at surgical site Neurological : Alert & oriented x3, No focal deficit Objective Data Active Medications Albuterol/Ipratropium (Albuterol/Iprat 2.5/0.5mg 3 Ml Ampul.Neb) 3 ml INHALE RQ4H WHILE AWAKE [facility] Last Admin: 10/11/23 11:00 Dose: 3 ml Documented By: JINA Aspirin (Aspirin 81 Mg Tab.Chew) 81 mg PO DAILY [facility] Last Admin: 10/11/23 07:56 Dose: 81 mg Documented By: WILFREDO Diltiazem HCl (Diltiazem Hcl Cd 240 Mg Cap.Er.Deg) 240 mg PO DAILY [facility]; Protocol Last Admin: 10/11/23 07:54 Dose: 240 mg Documented By: WILFREDO Docusate Sodium (Docusate Sodium 100 Mg Capsule) 100 mg PO .BID WITH FOOD [facility] Hydromorphone HCl (Hydromorphone Hcl 0.5 Mg/0.5 Ml Syringe) 0.25 mg IVPUSH Q3H PRN; Protocol PRN Reason: Pain, Severe (Pain Scale 7-10) Piperacillin Sod/Tazobactam (Sod 3.375 gm/ Sodium Chloride) 50 mls @ 100 mls/hr IV Q6H [facility] Last Admin: 10/11/23 11:14 Dose: 100 mls/hr Documented By: WILFREDO Acetaminophen (Ofirmev) 1,000 mg in 100 mls @ 400 mls/hr IV Q6H [facility] Last Infusion: 10/11/23 10:50 Dose: Infused Documented By: WILFREDO Ketorolac Tromethamine (Ketorolac Tromethamine 15 Mg/Ml Vial) 15 mg IVPUSH BIDWM [facility] Last Admin: 10/11/23 10:59 Dose: 15 mg Documented By: WILFREDO Lidocaine (Lidocaine 4 % Patch Adh..Patch) 1 patch TRANSDERMA DAILY [facility]; Protocol Last Admin: 10/11/23 07:54 Dose: 1 patch Documented By: WILFREDO Lisinopril (Lisinopril 20 Mg Tablet) 20 mg PO DAILY [facility]; Protocol Last Admin: 10/11/23 07:58 Dose: 20 mg Documented By: WILFREDO Montelukast Sodium (Montelukast Sodium 10 Mg Tablet) 10 mg PO DAILY [facility] Last Admin: 10/11/23 07:56 Dose: 10 mg Documented By: WILFREDO Omeprazole (Omeprazole 20 Mg Capsule.Dr) 20 mg PO DAILY@0630 [facility] Last Admin: 10/11/23 05:38 Dose: 20 mg Documented By: TORI Ondansetron HCl (Ondansetron Hcl 4 Mg/2 Ml Vial) 4 mg IVPUSH QID PRN PRN Reason: Nausea Last Admin: 10/11/23 05:47 Dose: 4 mg Documented By: TORI Oxycodone HCl (Oxycodone Hcl Immed Release 5 Mg Tablet) 5 mg PO Q4H PRN PRN Reason: Pain, Moderate(Pain Scale 4-6) Prednisone (Prednisone 10 Mg Tablet) 10 mg PO DAILY [facility] Last Admin: 10/11/23 07:54 Dose: 10 mg Documented By: WILFREDO Sodium Chloride (0.9 % Sodium Chloride Flush 3 Ml Syringe) 3 ml IVFLUSH QSHIFT [facility] Last Admin: 10/11/23 07:55 Dose: 3 ml Documented By: WILFREDO Tiotropium [place] (Tiotropium [place] 2.5 Mcg 1 Puff/2.5 Mcg Mist.Inhal) 2 puff INHALE RDAILY [facility] Last Admin: 10/11/23 07:55 Dose: 2 puff Documented By: HO.FIGURAI Zolpidem Tartrate (Zolpidem Tartrate 5 Mg Tablet) 5 mg PO BEDTIME PRN PRN Reason: Insomnia Last Admin: 10/10/23 23:59 Dose: 5 mg Documented By: TORI Labs 10/10/23 05:18 10/10/23 05:18 Labs: Laboratory Results - last 24 hr 10/11/23 05:29 Hold Purple Top SEE NOTE Total Bilirubin 1.6 H Direct Bilirubin 0.6 H AST 157 H ALT 456 H Alkaline Phosphatase 126 H Total Protein 6.2 L Albumin 3.5 Assessment and Plan (1) Acute cholecystitis due to biliary calculus: Status: Acute Plan 73-year-old female with history of OTILIO not on CPAP, hypertension, asthma/COPD overlap syndrome, chronic pain disorder, history of skin cancer, GERD admitted to general surgery for acute cholecystitis and choledocholithiasis with consult placed hospitalist service for medical management. #Cholecystitis/Choledocolithiasis POD2 followed by general surgery Add Toradol bid decrease Dilaudid dose #Asthma/copd overlap resolving wheezing CXR negative for infiltrates no indication for steroids at this time. Continue duonebs q4h Incentive spirometry Continue home inhalers #HTN Continue diltiazem Hold lisinopril and HCT for now #Chronic pain syndrome pain management as ordered by general surgery. continue gabapentin #Mood disorder continue home meds Thank you for this consult, we will continue to follow along with you as needed Quality Stroke Does the patient have a stroke diagnosis?: No VTE Prior VTE?: No VTE Risk Level:: Surgical - moderate VTE Device Contraindication: N/A - Device Ordered VTE Drug Contraindication: Treatment Not Indicated
--- NOTE | 2023-10-11 12:14 | PM.PNGS ---
Subjective Subjective Date of Service: 10/11/23 Interval history: pt feeling a little better trying solid food again no nausea Physical Exam Vital Signs: Vital Signs: Last Vital Signs Temp 96.9 F 10/11/23 07:20 Pulse 68 10/11/23 11:01 Resp 18 10/11/23 11:01 BP 138/76 10/11/23 07:58 Pulse Ox 95 10/11/23 07:20 O2 Del Method Nasal Cannula 10/11/23 07:20 O2 Flow Rate 2 10/11/23 07:20 BMI result Body Mass Index 36.2 GI: Other: abdo soft nontender Objective Data Active Medications Albuterol/Ipratropium (Albuterol/Iprat 2.5/0.5mg 3 Ml Ampul.Neb) 3 ml INHALE RQ4H WHILE AWAKE [facility] Last Admin: 10/11/23 11:00 Dose: 3 ml Documented By: JINA Aspirin (Aspirin 81 Mg Tab.Chew) 81 mg PO DAILY [facility] Last Admin: 10/11/23 07:56 Dose: 81 mg Documented By: WILFREDO Diltiazem HCl (Diltiazem Hcl Cd 240 Mg Cap.Er.Deg) 240 mg PO DAILY [facility]; Protocol Last Admin: 10/11/23 07:54 Dose: 240 mg Documented By: WILFREDO Docusate Sodium (Docusate Sodium 100 Mg Capsule) 100 mg PO .BID WITH FOOD [facility] Hydromorphone HCl (Hydromorphone Hcl 0.5 Mg/0.5 Ml Syringe) 0.25 mg IVPUSH Q3H PRN; Protocol PRN Reason: Pain, Severe (Pain Scale 7-10) Piperacillin Sod/Tazobactam (Sod 3.375 gm/ Sodium Chloride) 50 mls @ 100 mls/hr IV Q6H [facility] Last Infusion: 10/11/23 12:06 Dose: Infused Documented By: WILFREDO Acetaminophen (Ofirmev) 1,000 mg in 100 mls @ 400 mls/hr IV Q6H [facility] Last Infusion: 10/11/23 10:50 Dose: Infused Documented By: WILFREDO Ketorolac Tromethamine (Ketorolac Tromethamine 15 Mg/Ml Vial) 15 mg IVPUSH BIDWM [facility] Last Admin: 10/11/23 10:59 Dose: 15 mg Documented By: WILFREDO Lidocaine (Lidocaine 4 % Patch Adh..Patch) 1 patch TRANSDERMA DAILY [facility]; Protocol Last Admin: 10/11/23 07:54 Dose: 1 patch Documented By: WILFREDO Lisinopril (Lisinopril 20 Mg Tablet) 20 mg PO DAILY [facility]; Protocol Last Admin: 10/11/23 07:58 Dose: 20 mg Documented By: WILFREDO Montelukast Sodium (Montelukast Sodium 10 Mg Tablet) 10 mg PO DAILY [facility] Last Admin: 10/11/23 07:56 Dose: 10 mg Documented By: WILFREDO Omeprazole (Omeprazole 20 Mg Capsule.Dr) 20 mg PO DAILY@06 [facility] Last Admin: 10/11/23 05:38 Dose: 20 mg Documented By: TORI Ondansetron HCl (Ondansetron Hcl 4 Mg/2 Ml Vial) 4 mg IVPUSH QID PRN PRN Reason: Nausea Last Admin: 10/11/23 05:47 Dose: 4 mg Documented By: TORI Oxycodone HCl (Oxycodone Hcl Immed Release 5 Mg Tablet) 5 mg PO Q4H PRN PRN Reason: Pain, Moderate(Pain Scale 4-6) Prednisone (Prednisone 10 Mg Tablet) 10 mg PO DAILY [facility] Last Admin: 10/11/23 07:54 Dose: 10 mg Documented By: WILFREDO Sodium Chloride (0.9 % Sodium Chloride Flush 3 Ml Syringe) 3 ml IVFLUSH QSHIFT [facility] Last Admin: 10/11/23 07:55 Dose: 3 ml Documented By: WILFREDO Tiotropium [place] (Tiotropium [place] 2.5 Mcg 1 Puff/2.5 Mcg Mist.Inhal) 2 puff INHALE RDAILY [facility] Last Admin: 10/11/23 07:55 Dose: 2 puff Documented By: JINA Zolpidem Tartrate (Zolpidem Tartrate 5 Mg Tablet) 5 mg PO BEDTIME PRN PRN Reason: Insomnia Last Admin: 10/10/23 23:59 Dose: 5 mg Documented By: TORI Labs 10/10/23 05:18 10/10/23 05:18 Labs: Laboratory Results - last 24 hr 10/11/23 05:29 Hold Purple Top SEE NOTE Total Bilirubin 1.6 H Direct Bilirubin 0.6 H AST 157 H ALT 456 H Alkaline Phosphatase 126 H Total Protein 6.2 L Albumin 3.5 Procedures Date of Service Date of Service: 10/11/23 Progress Note: A&P Assessment and plan (1) Choledocholithiasis with acute cholecystitis: Status: Acute Plan pod#2 sp jodie josafat - doing a bit better advance diet nd heplock and hope to dc tomorrow Time Spent With Patient Time: Total time managing care of this patient today ____ minutes. Quality Stroke Does the patient have a stroke diagnosis?: No VTE Prior VTE?: No VTE Risk Level:: Surgical - moderate VTE Device Contraindication: N/A - Device Ordered VTE Drug Contraindication: Treatment Not Indicated
--- NOTE | 2023-10-11 13:27 | PC.NURSE ---
Patient reported earlier seeing people in her room last night,feeling nervous,possible effect from IV dilaudid,Dr. Morin notified,pain meds adjusted,will monitor
--- NOTE | 2023-10-11 16:08 | MHC.CM.PN ---
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
[2023-10-11] MEDS: HYDROmorphone HCl 0.5 MG/0.5 ML SYRINGE 0.25 MG IVPUSH (20:54)
[2023-10-11] MEDS: oxyCODONE HCl Immed Release 5 MG TABLET PO (23:44)
[2023-10-12] VITALS (11 sets, daily range): BP systolic 136–172; BP diastolic 74–82; PULSE 68–86; RESP 16–18; TEMP 36.1–36.7; O2SAT 92–98
[2023-10-12] MEDS: Acetaminophen 1,000 MG/100 ML PIGGYBACK 400 MG IV ×3 (06:15→17:09)
[2023-10-12] MEDS: Piperacillin Sodium/Tazobactam 3.375 GM in 0.9 % Sodium Chloride 50 ML IV ×2 (06:17→12:34)
[2023-10-12] MEDS: Omeprazole 20 MG CAPSULE.DR PO (06:30)
[2023-10-12 07:15] LABS: Anion Gap 10 (12-20); Blood Urea Nitrogen 10 mg/dL (9-16); Calcium 9.4 mg/dL (8.4-10.2); Carbon Dioxide 27 mmol/L (22-29); Chloride 106 mmol/L (96-108); Creatinine Clr Calc Pharmacy 79.7; Estimated Glomerular Filt Rate > 60; Glucose Random 91 mg/dL (60-115); Potassium 3.2 mmol/L (3.3-5.1); Sodium 140 mmol/L (135-145)
[2023-10-12 07:19] LABS: Hematocrit 36.8 % (37.0-47.0); Mean Corpuscular HGB Conc 32.6 g/dl (31.0-35.0); Mean Platelet Volume 11.3 fL (9.4-12.3); Platelet Count 257 X10*3/uL (160-400); White Blood Count 8.6 X10*3/uL (4.8-10.8)
[2023-10-12] MEDS: Tiotropium Bromide 2.5 mcg 1 PUFF/2.5 MCG MIST.INHAL 2 PUFF INHALE (07:41)
[2023-10-12] MEDS: Albuterol/Iprat 2.5/0.5MG 3 ML AMPUL.NEB INHALE ×3 (07:41→15:43)
[2023-10-12] MEDS: Potassium Chloride ER 20 MEQ TAB.ER.PRT 40 MEQ PO (08:48)
[2023-10-12] MEDS: Ketorolac Tromethamine 15 MG/ML VIAL IVPUSH ×2 (08:48→17:09)
[2023-10-12] MEDS: Lidocaine 4 % Patch ADH..PATCH 1 PATCH TRANSDERMA (08:48)
[2023-10-12] MEDS: 0.9 % Sodium Chloride Flush 3 ML SYRINGE IVFLUSH ×2 (08:50→15:38)
[2023-10-12] MEDS: ondansetron HCL 4 MG/2 ML VIAL IVPUSH (08:52)
--- NOTE | 2023-10-12 09:09 | PC.NURSE ---
Pt stated was nauseous, prn zofran admin, when attempted PO meds pt vomitted when attempting,. No meds PO were able to go down. Will wait and reassess if able to tolerate. Pt also states no BM since last Sat - MD notified of update and stating will put in u/s to rule out SBO as stated to him not passing gas either.
[2023-10-12] MEDS: Prochlorperazine Edisylate 10 MG/2 ML VIAL 5 MG IVPUSH (11:28)
[2023-10-12] MEDS: Lactulose 20 GM/30 ML SOLUTION PO (12:34)
--- NOTE | 2023-10-12 15:52 | MHC.CM.PN ---
PT WILL DC HOME TODAY WITH RESUMPTION OF [facility] FAMILY TO TRANSPORT
--- NOTE | 2023-10-12 16:34 | PM.DS ---
DS: Providers Provider Date of Service: 10/12/23 Date of admission: 10/08/23 11:14 Date of discharge: 10/12/23 Primary care physician: Mary Flores MD Consults: 10/08/23 11:16 Consult to Hospitalist Routine Comment: Consulting Provider: Hospitalist Reason For Exam: acute cholecystitis, med management Attending physician on discharge: Adelita Solitario DS: Diagnosis Discharge Diagnosis (1) Choledocholithiasis with acute cholecystitis: Status: Acute DS: Summary Hospital Course Hospital Course: Patient is a 73-year-old female who came in with cholelithiasis and underwent laparoscopic cholecystectomy. Postoperatively had some issues with nausea vomiting and some pain control but eventually did well. She was discharged tolerating p.o. diet off oxygen ambulating and doing overall well. Plan is to discharge to home slow increase diet p.o. meds as needed no heavy lifting greater than 10 lb. Status at Discharge Cognitive/behavioral status at discharge: Good Functional status at discharge: independent ambulation Overall status at discharge: patient is progressing back to baseline Time Attestation Total time managing care of this patient today: 15 mintues. Discharge Coordination Time (in mins): 15 Quality: Safe Use of Opioids Does Pt have an Active Cancer Diagnosis on the Problem List?: No Quality: Stroke Does the patient have a stroke diagnosis?: No Physical Exam Vital Signs: Vital Signs: Last Vital Signs Temp 97.6 F 10/12/23 15:28 Pulse 70 10/12/23 15:44 Resp 18 10/12/23 15:44 BP 136/75 10/12/23 15:28 Pulse Ox 95 10/12/23 15:28 O2 Del Method Room Air 10/12/23 15:28 O2 Flow Rate 2 10/12/23 07:21 BMI result Body Mass Index 36.2 Const: General: cooperative, healthy appearing, comfortable and no acute distress Resp: Effort & Inspection: normal respiratory effort Auscultation: clear to auscultation bilaterally Cardio: Rate: regular rate Rhythm: regular rhythm GI: Other: Abdomen is soft nondistended nontender DS: Data Data Completed and Pending Pending studies at discharge: Pending at discharge 10/09/23 14:42 Surgical [PTH] Routine Labs on day of discharge: Laboratory Results - last 24 hr 10/12/23 06:33 WBC 8.6 RBC 4.00 L Hgb 12.0 Hct 36.8 L MCV 92.0 MCH 30.0 MCHC 32.6 RDW 14.0 Plt Count 257 MPV 11.3 Absolute Nucleated RBC 0.000 Nucleated RBC % (auto) 0.0 Sodium 140 Potassium 3.2 L D Chloride 106 Carbon Dioxide 27 Anion Gap 10 L BUN 10 Creatinine 0.67 Estim Creat Clear Calc 79.7 Estimated GFR > 60 Random Glucose 91 Calcium 9.4 Discharge Plan Discharge Anticipated Discharge Date/Time: 10/12/23 15:36 Patient Disposition: Home, Self-Care Discharge Diagnosis: gallbladder Referrals: Mary Flores MD [Primary Care Provider] - 1 Week Discharge Medications: Continued albuterol sulfate 2.5 mg /3 mL (0.083 %) solution for nebulization 2.5 mg inhalation Q4H PRN (Reason: shortness of breath or wheezing) 30 Days Qty: 360 11RF Spiriva Respimat 2.5 mcg/actuation mist 2 puff inhalation DAILY 30 Days Qty: 1 11RF albuterol sulfate 90 mcg/actuation HFA aerosol inhaler 2 puff inhalation Q4-6H PRN (Reason: shortness of breath or wheezing) Qty: 8.5 0RF metformin 500 mg tablet 500 mg PO DAILY alendronate 70 mg tablet 70 mg PO QWEEK Rx Instructions: per patient friday or friday hydrochlorothiazide 25 mg tablet 25 mg PO DAILY acetaminophen 650 mg tablet extended release 650 mg PO Q6H PRN (Reason: pain or fever) carvedilol 3.125 mg tablet 3.125 mg PO BID lisinopril 40 mg tablet 40 mg PO DAILY aspirin 81 mg tablet,chewable 1 tab PO DAILY diltiazem HCl 240 mg capsule,extended release 24hr 240 mg PO DAILY fluticasone furoate-vilanterol [Breo Ellipta] 200-25 mcg/dose blister with device 1 ea PO DAILY Qty: 60 11RF montelukast 10 mg tablet 10 mg PO DAILY 30 Days Qty: 30 11RF cholecalciferol (vitamin D3) [Vitamin D3] 50 mcg (2,000 unit) capsule 50 mcg PO DAILY prednisone 10 mg tablet 10 mg PO DAILY 30 Days Qty: 30 1RF bisacodyl [Dulcolax (bisacodyl)] 5 mg tablet,delayed release (DR/EC) 10 mg PO BEDTIME 30 Days Qty: 60 6RF Linzess 290 mcg capsule 290 mcg PO QAM Qty: 30 6RF Creon 24,000-76,000 -120,000 unit capsule,delayed release(DR/EC) 1 cap PO QIDACHS 30 Days Qty: 120 6RF Rx Instructions: administer with meals and/or snacks omeprazole 20 mg capsule,delayed release(DR/EC) 20 mg PO DAILY Qty: 30 6RF docusate sodium 100 mg capsule 100 mg PO .BID WITH FOOD 30 Days Qty: 60 6RF Held naproxen 250 mg tablet 250 mg PO BID PRN (Reason: mild pain) Hold Instructions: Resume on 10/25/23. No Action (DME) nebulizers Misc See Rx Instructions .ROUTE Rx Instructions: As directed Discharge Orders: Discharge Order (Routine); Ordered 10/12/23 Ordered By: Adelita Solitario Activity on Discharge: As tolerated Stand Alone Forms: Patient Portal Discharge page Print Language: Kinyarwanda Care Plan Goals: pt to advance diet and ambulate Health Concerns: fever chills abdominal pain nausea red incisions call MD Plan of Treatment: see above Assessment: Pt doing well, dc home and call office for f.u in office in 1 week
[2023-10-12] MEDS: Lipase/Prot/Amylase 24/76/120K 1 CAP CAPSULE.DR PO (17:08)
== END 2023-10-12 18:10 | disposition home or self-care (01) | DRG 419 ==
LOC: HO.ED 10:53 → HO.EDOVER 11:20 → HO.S3 17:32
PROVIDERS: Internal Medicine; Student in an Organized Health Care Education/Training Program; Admitting Provider Surgery; Emergency Provider Emergency Medicine; PCP General Practice; Visit Provider Surgery
PROC: 0FT44ZZ Resection of Gallbladder, Percutaneous Endoscopic Approach (ICD-10-PCS; CPT 47562; principal; 2023-10-09 13:50)
DX: K80.00 Calculus of gallbladder with acute cholecystitis without obstruction (principal); J44.9 Chronic obstructive pulmonary disease, unspecified; G47.33 Obstructive sleep apnea (adult) (pediatric); G89.4 Chronic pain syndrome; F39 Unspecified mood [affective] disorder; Z79.82 Long term (current) use of aspirin; Z79.51 Long term (current) use of inhaled steroids; Z79.84 Long term (current) use of oral hypoglycemic drugs; Z79.52 Long term (current) use of systemic steroids; Z79.899 Other long term (current) drug therapy
CPT/HCPCS: 36415; 71045; 74018; 74176; 74181; 76705; 80048; 80053; 80076; 82947; 83036; 83690; 84484; 85025; 85027; 85610; 86850; 86900; 86901; 88304; 93005; 99285; J0131; J0737; J1100; J1170; J1885; J2250; J2405; J2543; J2704; J3010; J7120

== ENCOUNTER → 2023-10-08 05:04 | Outpatient (BNV) | payer OTHER, SELFPAY | PROVIDERS: Admitting Provider Surgery; Emergency Provider Emergency Medicine; Visit Provider Internal Medicine | DX: R07.9 Chest pain, unspecified (principal) | CPT/HCPCS: 93010 ==

== ENCOUNTER → 2023-10-08 11:14 | Outpatient (BNV) | payer OTHER, SELFPAY | PROVIDERS: Admitting Provider Surgery; Emergency Provider Emergency Medicine; Visit Provider Physician Assistant | DX: K80.42 Calculus of bile duct with acute cholecystitis without obstruction (principal); K80.00 Calculus of gallbladder with acute cholecystitis without obstruction | CPT/HCPCS: 99222; 99231 ==

== ENCOUNTER → 2023-10-08 11:14 | Outpatient (BNV) | payer OTHER, SELFPAY | PROVIDERS: Admitting Provider Surgery; Emergency Provider Emergency Medicine; Visit Provider Surgery | DX: K80.42 Calculus of bile duct with acute cholecystitis without obstruction (principal) | CPT/HCPCS: 47562; 99024; 99222; 99499 ==

== ENCOUNTER 2023-10-21 11:36 | Outpatient (AMB) | payer OTHER, SELFPAY ==
--- NOTE | 2023-10-21 11:41 | A.OFFVIS_ITS ---
Intake Visit Reasons: in pt lap josafat Intake Note: This patient presents for a post-op assessment status post laparoscopic cholecystectomy. Patient c/o; reports burning sensation on one of the incisions, reports no nausea or vomiting, reports short of breath when talking. Seismograph Helper Required: Yes Seismograph Helper Language: Performance Consultant Name: Ej Accompanied by: Other Relationship Allergies morphine [MORPHINE] Allergy (Intermediate, Verified 10/08/23 05:15) NAUSEA, rash, redness Medication List - Last Reconciled 10/21/23 by Zaki Cheung MD acetaminophen ER 650 mg PO Q6H PRN albuterol sulfate 2.5 mg (3 mL) inhalation Q4H PRN 30 days albuterol sulfate 90 mcg/actuation 2 puffs inhalation Q4-6H PRN alendronate 70 mg PO QWEEK aspirin 1 tab PO DAILY bisacodyl (Dulcolax (bisacodyl)) 10 mg (2 x 5 mg) PO BEDTIME 30 days carvedilol 3.125 mg PO BID cholecalciferol (vitamin D3) (Vitamin D3) 50 mcg PO DAILY diltiazem HCl CD 240 mg PO DAILY docusate sodium 100 mg PO .BID WITH FOOD 30 days fluticasone furoate-vilanterol 200-25 mcg/dose (Breo Ellipta) 1 ea PO DAILY hydrochlorothiazide 25 mg PO DAILY linaclotide (Linzess) 290 mcg PO QAM [id number] 24,000-76,000 -120,000 unit (Creon) 1 cap PO QIDACHS 30 days lisinopril 40 mg PO DAILY metformin 500 mg PO DAILY montelukast 10 mg PO DAILY 30 days naproxen 250 mg PO BID PRN nebulizers As directed omeprazole 20 mg PO DAILY oxycodone 5 mg PO TID PRN prednisone 10 mg PO DAILY 30 days tiotropium bromide 2.5 mcg/actuation (Spiriva Respimat) 2 puffs inhalation DAILY 30 days HPI Comments Details: 73-year-old female patient returning 1 week following discharge from hospital with acute cholecystitis due to cholelithiasis. She underwent a laparoscopic cholecystectomy on 10/09/2023 and tolerated this well. She returns today complaining mainly of some burning discomfort in the epigastric incision. She is eating well and denies any nausea or vomiting. Her bowels are moving normally as well. 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 Sacroiliitis Disc degeneration, lumbar OTILIO (obstructive sleep apnea) Back pain HTN (hypertension) Skin cancer (melanoma) GERD (gastroesophageal reflux disease) Depression OTILIO (obstructive sleep apnea) Kidney stones Pulmonary nodule Severe asthma Primary osteoarthritis involving multiple joints Pneumonia Chronic allergic rhinitis (~03/09/20) Asthma-COPD overlap syndrome Surgical History History of bronchoscopy History of cystoscopy History of laparoscopic appendectomy History of nasal surgery Hx of section Hx of tubal ligation Hx of colonoscopy History of esophagogastroduodenoscopy (EGD) Hx of knee surgery Family History Father No problems noted. Mother No problems noted. Social History Household Members: Children Housing: Apartment Do you presently have visiting nurse or other home services: Yes (investigator narcotics's 02/12) Alcohol intake: never Patient Tobacco Use Status: Never used Tobacco Second Hand Smoke Exposure: No service: No Current occupational status: disabled Current occupation: rt handed Physical Exam Const General: cooperative and no acute distress Nutritional Appearance: well nourished Orientation/consciousness: patient oriented x3 Resp Effort & Inspection: normal respiratory effort GI Other: Trocar incisions are clean, dry, and intact with intact Steri-Strips. No infection or hernias identified. Neuro General: patient oriented x3 Extrem General: No edema Assessment & Plan Assessment & Plan (1) Acute cholecystitis due to biliary calculus: Code(s): K80.00 - Calculus of gallbladder with acute cholecystitis without obstruction Category: Medical Plan Patient returns following laparoscopic cholecystectomy on 10/09/2023. She tolerated the procedure well and her wounds are healing nicely. She should follow up as needed. Coding Level of Care Code Global (48715) Diagnoses Acute cholecystitis due to biliary calculus K80.00
== END 2023-10-21 12:11 | disposition home or self-care (01) ==
PROVIDERS: PCP General Practice; Visit Provider Surgery
DX: K80.00 Calculus of gallbladder with acute cholecystitis without obstruction (principal)
CPT/HCPCS: 99024

== ENCOUNTER → 2023-10-21 11:36 | Outpatient (BNVA) | payer OTHER, SELFPAY | PROVIDERS: PCP General Practice; Visit Provider Surgery | DX: K80.00 Calculus of gallbladder with acute cholecystitis without obstruction (principal) | CPT/HCPCS: 99212 ==

== ENCOUNTER 2023-11-28 10:34 | Outpatient (AMB) | payer OTHER, SELFPAY ==
--- NOTE | 2023-11-28 10:47 | MHC.OFFVIS ---
Vital Signs 11/28/23 10:51 BP 120/86 Intake Visit Reasons: US follow up Senior Warehouse Clerk Required: Yes Senior Warehouse Clerk Language: Independent Living Advisor Services: Senior Warehouse Clerk Present (in person) Senior Warehouse Clerk Name: Libertad SOUZA Information Interpreted: non-clinical & clinical Air Transportation Provider: Air Transportation Provider Present Accompanied by: Spouse Allergies morphine [MORPHINE] Allergy (Intermediate, Verified 10/08/23 05:15) NAUSEA, rash, redness Is last menstrual period known: Yes HPI Comments Details: Patient is here today for a follow up pelvic ultrasound she had a previous exam and reports left lower quadrant pain. She is accompanied by her . She denies any urinary symptoms, vaginal odors itching or irritation today. She declines a pelvic exam today. She denies any postmenopausal bleeding episodes. 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 Sacroiliitis Disc degeneration, lumbar OTILIO (obstructive sleep apnea) Back pain HTN (hypertension) Skin cancer (melanoma) GERD (gastroesophageal reflux disease) Depression OTILIO (obstructive sleep apnea) Kidney stones Pulmonary nodule Severe asthma Primary osteoarthritis involving multiple joints Pneumonia Chronic allergic rhinitis (~03/09/20) Asthma-COPD overlap syndrome Surgical History History of bronchoscopy History of cystoscopy History of laparoscopic appendectomy History of nasal surgery Hx of section Hx of tubal ligation Hx of colonoscopy History of esophagogastroduodenoscopy (EGD) Hx of knee surgery Family History Father No problems noted. Mother No problems noted. Social History Household Members: Children Housing: Apartment Do you presently have visiting nurse or other home services: Yes (credit control officer's 02/12) Alcohol intake: never Patient Tobacco Use Status: Never used Tobacco Second Hand Smoke Exposure: No service: No Current occupational status: disabled Current occupation: rt handed Review of Systems Const All systems reviewed & are unremarkable except as noted in HPI and below Endo Reports no additional complaints Physical Exam Vital Signs: Last Vital Signs BP 120/86 07/19/24 10:51 Const General: cooperative, healthy appearing and no acute distress Psych Appearance: well kempt Attitude: cooperative Thought process: Normal thought process present Results Reviewed Results Reviewed: [address] [address] Ultrasound Report Signed Patient: Margarita Flores I MR#: [id number] : 1950 Acct:[id number] Age/Sex: 73 / F ADM Date: 09/26/23 Loc: HO.US Attending Dr: Carol Silva CNM Ordering Physician: Carol Silva CNM Date of Service: 09/26/23 Procedure(s): US pelvic and transvaginal Accession Number(s): [id number] cc: Mary Flores; Carol Silva CNM~ EXAMINATION: US PELVIS CLINICAL INFORMATION: Pelvic and perineal pain. COMPARISON: Ultrasound pelvis 10/17/2020 TECHNIQUE: Ultrasound of the pelvis is performed using both transabdominal and transvaginal transducers along with Doppler. Transvaginal imaging is performed due to inadequate visualization transabdominally. FINDINGS: UTERUS: The uterus is anteverted and measures 10.1 x 3.3 x 6.4 cm. The double wall endometrial thickness is 3 mm. The endometrium contains a trace amount of fluid. The uterus is smooth in contour and has heterogeneous myometrial echogenicity. No visible fibroid. Nabothian cysts are present in the cervix. ADNEXA: Both ovaries are visualized. There is normal color flow to the adnexa. There is no ovarian torsion. There is no pelvic ascites or fluid collection. Right ovary measures 1.8 x 1.3 x 1.8 cm for a volume of 2.2 mL. Exophytic 1.7 x 1.6 x 1.8 cm cyst. No follow-up imaging is recommended. Left ovary measures 2.4 x 1.6 x 1.4 cm for a volume of 2.8 mL and appears unremarkable. US/US pelvic and transvaginal IMPRESSION: No significant abnormality is seen. Dictated By: Miguel Angel Sánchez MD Signed By: <Electronically signed by Miguel Angel Sánchez MD in OV> 10/05/23 1800 DD/ 1052 TD/TT: Cattle Dehorner: JOSHUA Assessment & Plan Assessment & Plan (1) Encounter to discuss test results: Code(s): Z71.2 - Person consulting for explanation of examination or test findings Plan Discussed: Ultrasound findings reveals small simple right-sided cyst-patient does not have any pain on her right side. Trace amount of fluid in the endometrial canal, endometrial lining is 3 mm. Advised if any vaginal bleeding to call and come in right away for assessment. History of diverticulosis and constipation, sees GI for a follow up. Reviewed many causes for abdominal pain. Advised to go to the emergency room if any pain is persistent or severe. Follow up for routine fountain worker care. All of her questions and concerns were addressed to the best of my ability and shared decision making. She is agreeable to the plan of care. This note is constructed using voice recognition software. While every effort has been made to ensure accuracy, level vial inside grinder errors may have been included. Coding Level of Care Code Est Pt Level 3 (90569) Diagnoses Encounter to discuss test results Z71.2
[2023-11-28 10:51] VITALS: BP 120/86
== END 2023-11-28 11:39 | disposition home or self-care (01) ==
LOC: HO.HWS 10:34
PROVIDERS: PCP General Practice; Visit Provider Advanced Practice Midwife
DX: Z71.2 Person consulting for explanation of examination or test findings (principal)
CPT/HCPCS: 99213

== ENCOUNTER → 2023-11-28 10:34 | Outpatient (BNVA) | payer OTHER, SELFPAY | PROVIDERS: PCP General Practice; Visit Provider Advanced Practice Midwife | DX: R10.32 Left lower quadrant pain (principal); Z71.2 Person consulting for explanation of examination or test findings | CPT/HCPCS: 99212 ==

== ENCOUNTER 2023-12-09 08:32 | Outpatient (REF) | payer OTHER, SELFPAY | END 2023-12-09 08:33 | disposition home or self-care (01) | LOC: HO.MAMMO 08:32 | PROVIDERS: PCP General Practice; Visit Provider General Practice | DX: Z12.31 Encounter for screening mammogram for malignant neoplasm of breast (principal) | CPT/HCPCS: 77063; 77067 ==

== ENCOUNTER → 2023-12-09 08:45 | Outpatient (BNV) | payer OTHER, SELFPAY | PROVIDERS: PCP General Practice; Visit Provider Radiology Diagnostic Radiology | DX: Z12.31 Encounter for screening mammogram for malignant neoplasm of breast (principal) | CPT/HCPCS: 77063; 77067 ==

== ENCOUNTER 2023-12-10 10:40 | Day surgery (SDC) | payer OTHER, SELFPAY ==
--- NOTE | 2023-12-08 15:01 | HO.ANESPROP2 ---
Documented by User: Emilie Tavera NP 12/08/23 15:03 HPI - Anesthesia Eval Consult details Narrative: 73yo F for Colonoscopy s/p lap josafat 09/2023 with GETA / NGT PMFSH Active Problems Active Problems: All Active Problems LUQ abdominal pain (Acute) Atelectasis of left lung (Acute) COVID-19 (Acute) Osteoarthritis of left knee (Acute) Chronic pain syndrome (Acute) Spondylosis of lumbar spine (Acute) Sacroiliac joint dysfunction of right side (Acute) Sacroiliitis (Acute) Disc degeneration, lumbar (Acute) OTILIO (obstructive sleep apnea) (Acute) Early satiety (Acute) Lumbar facet arthropathy (Acute) Thoracic spondylosis (Acute) Bilateral lower abdominal pain (Acute) Bronchitis (Acute) Biliary dyskinesia (Acute) GERD (gastroesophageal reflux disease) (Acute) Chronic idiopathic constipation (Acute) Spasm of bowel (Acute) Diverticulitis large intestine (Acute) Patellofemoral arthralgia of left knee (Acute) Hematuria (Acute) Left flank pain (Acute) Nephrolithiasis (Acute) Gallstones (Acute) Thoracic spondylosis (Acute) Dextroscoliosis (Acute) Tubular adenoma of colon (Acute) Abdominal pain (Acute) Abdominal cramping (Acute) Low back pain (Acute) Pulmonary nodule (Acute) Severe asthma (Acute) Primary osteoarthritis involving multiple joints (Acute) Chronic allergic rhinitis (Acute ~03/09/20) Asthma-COPD overlap syndrome (Acute) Past Medical History Medical History Atelectasis of left lung Chronic pain syndrome 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 Sacroiliitis Disc degeneration, lumbar OTILIO (obstructive sleep apnea) Back pain HTN (hypertension) Skin cancer (melanoma) GERD (gastroesophageal reflux disease) Depression OTILIO (obstructive sleep apnea) Kidney stones Pulmonary nodule Severe asthma Primary osteoarthritis involving multiple joints Pneumonia Chronic allergic rhinitis (~03/09/20) Asthma-COPD overlap syndrome Family History Family History Father No problems noted. Mother No problems noted. Family history of problems with anesthesia: No Surgical History Surgical History History of bronchoscopy History of cystoscopy History of laparoscopic appendectomy History of nasal surgery Hx of section Hx of tubal ligation Hx of colonoscopy History of esophagogastroduodenoscopy (EGD) Hx of knee surgery History of Problems with Anesthesia: No Social History Social History Household Members: Children Housing: Apartment Do you presently have visiting nurse or other home services: Yes (admission nurse coordinator's 02/12) Alcohol intake: never Patient Tobacco Use Status: Never used Tobacco Second Hand Smoke Exposure: No Use of substances other than those prescribed or required for medical reasons: No Are you DNR?: No Advance Directives: No Advance Directives Information Provided: Yes Patient : No service: No Current occupational status: disabled Current occupation: rt handed Meds Allergies Allergy/AdvReac Type Severity Reaction Status Date / Time morphine [MORPHINE] Allergy Intermediate NAUSEA, Verified 10/08/23 05:15 rash, redness Home Medications ?Medication ?Instructions ?Recorded ?Confirmed ?Last Taken ?Type aspirin 81 mg chewable tablet 1 tab PO DAILY 03/09/20 10/21/23 12/08/23 History carvedilol 3.125 mg tablet 3.125 mg PO BID 03/09/20 10/21/23 Unknown History diltiazem HCl 240 mg 240 mg PO DAILY 03/09/20 10/21/23 Unknown History capsule,extended release 24 hr lisinopril 40 mg tablet 40 mg PO DAILY 03/09/20 10/21/23 12/10/23 07:00 History nebulizers 07/15/23 10/21/23 Unknown History cholecalciferol (vitamin D3) 50 50 mcg PO DAILY 09/18/23 10/21/23 Unknown History mcg (2,000 unit) capsule (Vitamin D3) acetaminophen 650 mg 650 mg PO Q6H PRN pain or fever 10/08/23 10/21/23 Unknown History tablet,extended release alendronate 70 mg tablet 70 mg PO QWEEK 10/08/23 10/21/23 Unknown History hydrochlorothiazide 25 mg tablet 25 mg PO DAILY 10/08/23 10/21/23 Unknown History metformin 500 mg tablet 500 mg PO DAILY 10/08/23 10/21/23 Unknown History naproxen 250 mg tablet 250 mg PO BID PRN mild pain 10/08/23 10/21/23 Unknown History Exam Narrative Narrative: EKG 09/2023 Vent. Rate : 072 BPM Atrial Rate : 072 BPM P-R Int : 150 ms QRS Dur : 130 ms QT Int : 418 ms P-R-T Axes : 070 012 030 degrees QTc Int : 457 ms Normal sinus rhythm with sinus arrhythmia Right bundle branch block Abnormal ECG When compared with ECG of 13-AUG-2023 06:53, No significant change was found Assessment and Plan Assessment Anesthesia Assessment: Chart Reviewed Final Anesthetic Review Family History of Problems with Anesthesia: No History of Problems with Anesthesia: No Documented by User: Chelsea Hoskins MD 12/10/23 14:21 PMFSH Past Medical History Medical History Atelectasis of left lung Chronic pain syndrome 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 Sacroiliitis Disc degeneration, lumbar OTILIO (obstructive sleep apnea) Back pain HTN (hypertension) Skin cancer (melanoma) GERD (gastroesophageal reflux disease) Depression OTILIO (obstructive sleep apnea) Kidney stones Pulmonary nodule Severe asthma Primary osteoarthritis involving multiple joints Pneumonia Chronic allergic rhinitis (~03/09/20) Asthma-COPD overlap syndrome Family History Family History Father No problems noted. Mother No problems noted. Surgical History Surgical History History of bronchoscopy History of cystoscopy History of laparoscopic appendectomy History of nasal surgery Hx of section Hx of tubal ligation Hx of colonoscopy History of esophagogastroduodenoscopy (EGD) Hx of knee surgery Social History Social History Household Members: Children Housing: Apartment Do you presently have visiting nurse or other home services: Yes (admission nurse coordinator's 02/12) Alcohol intake: never Patient Tobacco Use Status: Never used Tobacco Second Hand Smoke Exposure: No Use of substances other than those prescribed or required for medical reasons: No Are you DNR?: No Advance Directives: No Advance Directives Information Provided: Yes Patient : No service: No Current occupational status: disabled Current occupation: rt handed Meds Allergies Allergy/AdvReac Type Severity Reaction Status Date / Time morphine [MORPHINE] Allergy Intermediate NAUSEA, Verified 10/08/23 05:15 rash, redness Home Medications ?Medication ?Instructions ?Recorded ?Confirmed ?Last Taken ?Type aspirin 81 mg chewable tablet 1 tab PO DAILY 03/09/20 10/21/23 12/08/23 History carvedilol 3.125 mg tablet 3.125 mg PO BID 03/09/20 10/21/23 Unknown History diltiazem HCl 240 mg 240 mg PO DAILY 03/09/20 10/21/23 Unknown History capsule,extended release 24 hr lisinopril 40 mg tablet 40 mg PO DAILY 03/09/20 10/21/23 12/10/23 07:00 History nebulizers 07/15/23 10/21/23 Unknown History cholecalciferol (vitamin D3) 50 50 mcg PO DAILY 09/18/23 10/21/23 Unknown History mcg (2,000 unit) capsule (Vitamin D3) acetaminophen 650 mg 650 mg PO Q6H PRN pain or fever 10/08/23 10/21/23 Unknown History tablet,extended release alendronate 70 mg tablet 70 mg PO QWEEK 10/08/23 10/21/23 Unknown History hydrochlorothiazide 25 mg tablet 25 mg PO DAILY 10/08/23 10/21/23 Unknown History metformin 500 mg tablet 500 mg PO DAILY 10/08/23 10/21/23 Unknown History naproxen 250 mg tablet 250 mg PO BID PRN mild pain 10/08/23 10/21/23 Unknown History Exam Airway Mallampati Class: II TM Dist: >3cm Neck ROM: Full Heart: rrr Lungs: cta Assessment and Plan Assessment Anesthesia Assessment: Anesthesia Plan Discussed Final Anesthetic Review NPO: Yes ASA Class: III Final Preanesthetic Review: No Changes in Pt Med Stat, Meds/Allgs Chart Reviewed, Consent Obtained/Reviewed and Anes Risks/Benef Reviewed Patient Risk: Intermediate Procedure Risk: Low Anesthetic Plan Anesthetic Plan: MAC: Disposition: Standard PACU
[2023-12-10 11:54] VITALS: BMI 34.4
[2023-12-10 13:11] LABS: Glucose, Whole Blood 91 mg/dL (60-115)
[2023-12-10] MEDS: Lactated Ringers 1,000 ML 100 ML IVCONT (13:13)
--- NOTE | 2023-12-10 13:17 | MHC.SHP ---
Pre-Procedural Eval Section A - 24 Hr Update-Section A only Date of Service: 12/10/23 Section B - Complete if H&P > 30 days Chief Complaint: Left upper quadrant pain Relevant Family History (Specify if Yes): No Relevant Social History: None Present Medications: see Short Stay Collaborative assessment Medical History: Significant History (Atelectasis of left lung Chronic pain syndrome 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 Sacroiliitis Disc degeneration, lumbar OTILIO (obstructive sleep apnea) Back pain HTN (hypertension) Skin cancer (melanoma) GERD (gastroesophageal reflux disease) Depression OTILIO (obstru) History of Previous Operations: Relevant previous surgery/procedure and date(s) (History of bronchoscopy History of cystoscopy History of laparoscopic appendectomy History of nasal surgery Hx of section Hx of tubal ligation Hx of colonoscopy History of esophagogastroduodenoscopy (EGD) Hx of knee surgery) Allergies: Allergies Allergy/AdvReac Type Severity Reaction Status Date / Time morphine [MORPHINE] Allergy Intermediate NAUSEA, Verified 10/08/23 05:15 rash, redness Review of Systems Sugical H&P ROS: Negative: Constitution, Cardiovascular, Respiratory, Neurological, Psychiatric, Hem-Onc, Allergic/Immunologic, Gastrointestinal, Genitourinary, Musculoskeletal, Integumentary, Endocrine and Eyes/Ears/Nose/Throat Exam Surgical H&P Exam: Normal: HEENT, Normal: Heart, Normal: Lungs, Normal: Extremities, Normal: Abdomen, Normal: Skin and Normal: Neurological Plan Diagnosis/Plan: Unchanged I have reviewed the history and physical and performed a pertinent physical examination on my patient. No changes have occurred unless specified. Time Spent With Patient Time: Total time managing care of this patient today ____ minutes.
[2023-12-10 14:20] VITALS: BP 132/77; PULSE 74; RESP 16; TEMP 36.1; O2SAT 97
--- NOTE | 2023-12-10 14:26 | P.OPN-COLO_ITS ---
Colonoscopy Operative Note Operative Note Date of Service: 12/10/23 Narrative: Operative Information Procedure Description: Colonoscopy Indication: LLQ pain Anesthesia: MAC COLONOSCOPY Instrument: Olympus variable stiffness pediatric scope 190L Colonoscopy Monitoring: Vital signs and clinical assessment, continuous EKG monitoring, Pulse oximetry, Carbon Dioxide monitoring and blood pressure monitoring were done throughout the procedure. Colon withdrawal time was 10 minutes. Procedure: The patient was placed in the left lateral decubitis position and pre-procedure medications were administered. After a digital rectal examination of the ano-rectum, the video colonoscope was inserted into the rectum and advanced through the colon to the cecum/TI. The colonoscope was slowly withdrawn in a retrograde panoramic fashion and the colon mucosa was carefully examined including a retroflexed view of the rectum. Findings and interventions are described below. Procedure Difficulty: moderate Findings: Terminal Ileum-normal Cecum:normal Ascending Colon: normal Transverse Colon -normal Descending Colon: 4-6 mm sessile polyp removed with cold forceps Sigmoid Colon: inverted diverticula seen, random bx taken Rectum: Retroflexion with small internal hemorrhoids seen, grade I Anorectum - normal Intervention: cold forceps Colon preparation: [place] Bowel Preparation Scale Right colon; 1-2 Transverse colon: 2 Left colon; 2 (0 = Unprepared colon segment with mucosa not seen due to solid stool that cannot be cleared. 1 = Portion of mucosa of the colon segment seen, but other areas of the colon segment not well seen due to staining, residual stool and/or opaque liquid. 2 = Minor amount of residual staining, small fragments of stool and/or opaque liquid, but mucosa of colon segment seen well. 3 = Entire mucosa of colon segment seen well with no residual staining, small fragments of stool or opaque liquid) Impression and Post Procedure Diagnosis: diverticulosis colon polyp internal hemorrhoids Plan: High fiber diet leaflet Avoid straining at stool, epsom salts and sitz bath, anusol supps or cream Repeat Colonoscopy in 5 years due to some areas of fair prep on right if health allows or earlier if clinically indicated Above findings were reviewed with the patient and relevant handouts were provided if indicated.
[2023-12-10 14:35] VITALS: BP 161/81; PULSE 59; RESP 16; TEMP 36.1; O2SAT 97
== END 2023-12-10 15:16 | disposition home or self-care (01) ==
PROVIDERS: PCP General Practice; Visit Provider Internal Medicine Gastroenterology
PROC: 0DJD8ZZ Inspection of Lower Intestinal Tract, Via Natural or Artificial Opening Endoscopic (ICD-10-PCS; CPT 45378; principal; 2023-12-10 14:40)
DX: R10.32 Left lower quadrant pain (principal); Z86.010 Personal history of colon polyps; D12.4 Benign neoplasm of descending colon; K57.30 Diverticulosis of large intestine without perforation or abscess without bleeding; K64.0 First degree hemorrhoids; K59.04 Chronic idiopathic constipation; K58.9 Irritable bowel syndrome, unspecified; K21.9 Gastro-esophageal reflux disease without esophagitis; R10.12 Left upper quadrant pain; G89.4 Chronic pain syndrome; M47.816 Spondylosis without myelopathy or radiculopathy, lumbar region; M53.3 Sacrococcygeal disorders, not elsewhere classified; F32.A Depression, unspecified; I10 Essential (primary) hypertension; J44.9 Chronic obstructive pulmonary disease, unspecified; J98.11 Atelectasis; G47.33 Obstructive sleep apnea (adult) (pediatric); M15.9 Polyosteoarthritis, unspecified; Z85.820 Personal history of malignant melanoma of skin; Z79.82 Long term (current) use of aspirin; Z79.84 Long term (current) use of oral hypoglycemic drugs; Z79.899 Other long term (current) drug therapy; Z88.5 Allergy status to narcotic agent; Z98.890 Other specified postprocedural states
CPT/HCPCS: 45380; 82947; 88305; J2704

== ENCOUNTER → 2023-12-10 10:40 | Outpatient (BNV) | payer OTHER, SELFPAY | PROVIDERS: PCP General Practice; Visit Provider Internal Medicine Gastroenterology | DX: R10.32 Left lower quadrant pain (principal); K64.0 First degree hemorrhoids; K57.30 Diverticulosis of large intestine without perforation or abscess without bleeding; K63.5 Polyp of colon | CPT/HCPCS: 45380 ==

== ENCOUNTER 2023-12-11 09:26 | Outpatient (AMB) | payer OTHER, SELFPAY ==
[2023-12-11 09:29] VITALS: BP 116/70; PULSE 82; BMI 34.5
--- NOTE | 2023-12-11 09:29 | MHC.OFFVIS ---
Vital Signs 12/11/23 09:29 Height 5 ft 3 in Weight 194 lb 14.218 oz BMI 34.5 BP 116/70 Blood Pressure Location Lt brachial Position Sitting Pulse 82 Intake Visit Reasons: Abdominal pain Intake Note: Margarita presents to in office visit today in follow up of abdominal pain. CC: Patient c/o LUQ abdominal pain, left flank pain, constipation, and nausea. Personnel Analyst Required: Yes Accompanied by: Spouse Allergies morphine [MORPHINE] Allergy (Intermediate, Verified 12/11/23 09:36) NAUSEA, rash, redness HPI HPI Abdominal pain: Details: Assessment & Plan (1) LUQ abdominal pain: Code(s): R10.12 - Left upper quadrant pain Category: Medical (2) Spondylosis of lumbar spine: Code(s): M47.816 - Spondylosis without myelopathy or radiculopathy, lumbar region Category: Medical (3) Sacroiliac joint dysfunction of right side: Code(s): M53.3 - Sacrococcygeal disorders, not elsewhere classified Category: Medical (4) Thoracic spondylosis: Comment: X-RAY OF THE SI JOINT/X-RAY LUMBAR SPINE 12/05/20 FINDINGS: Lumbar Spine: There is normal lumbar lordosis. The vertebral heights, alignment and disc heights are normal. There is mild endplate spondylosis at L3-L4 disc level. No visible acute fracture, dislocation or lytic process seen. Mild facet joint arthropathy seen at the L4-L5 disc level slightly greater on the left. No acute fracture or lytic process seen. Incidental finding of multiple round radiopaque densities in the right upper quadrant likely gallstones. These were noted on the previous CT chest exam 12/04/2020. SI Joints: There is normal symmetry of bilateral SI joints without any bony erosive changes. No fracture or lytic process seen. There are surgical ruiz in the right pelvis from previous intervention. Code(s): M47.814 - Spondylosis without myelopathy or radiculopathy, thoracic region Category: Medical (5) Bilateral lower abdominal pain: Comment: No GI cause uncovered and with pain radiating down the legs this is likely musculoskeletal/related to thoracic/lumbar spondylosis/facet arthropathy Code(s): R10.31 - Right lower quadrant pain; R10.32 - Left lower quadrant pain Category: Medical (6) GERD (gastroesophageal reflux disease): Code(s): K21.9 - Gastro-esophageal reflux disease without esophagitis Category: Medical Qualifiers: Esophagitis presence: without esophagitis Qualified Code(s): K21.9 - Gastro-esophageal reflux disease without esophagitis (7) Chronic idiopathic constipation: Code(s): K59.04 - Chronic idiopathic constipation Category: Medical (8) Tubular adenoma of colon: Comment: 3 small removed in 2017, 1 large removed 2020 repeat 3 years Code(s): D12.6 - Benign neoplasm of colon, unspecified Category: Medical Plan [facility] #[id number] Rickie She is here with 2 male family members who are quiet but supportive Her pain is the same, but she did not go for the xrays. She also is not moving her bowels well despite LInzess, so adding bisacodyl 2 tabs qhs. 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 I want to bring all of her medications to her next visit so I can confirm or straighten this out as that would be too much of the same medication. Return office visit in 5 weeks Medications: Changed From bisacodyl (Dulcolax (bisacodyl)) 10 mg (2 x 5 mg) PO BEDTIME 2 days 4 tabs 0RF To bisacodyl (Dulcolax (bisacodyl)) 10 mg (2 x 5 mg) PO BEDTIME 60 tabs 6RF 30 days Discontinued oxycodone-acetaminophen 5-325 mg (Percocet) Discontinued Reason: Patient no longer taking 1 tab PO BID 30 days PRN 60 tabs 0RF pain Patient Instructions: tome 2 bisacodilo antes de acostarse y contin?e con Linzess por la ma?marylou X-ray of the abdomen and thoracic spine Not obtained Colonoscopy 12/10/23 Findings: Terminal Ileum-normal Cecum:normal Ascending Colon: normal Transverse Colon -normal Descending Colon: 4-6 mm sessile polyp removed with cold forceps Sigmoid Colon: inverted diverticula seen, random bx taken Rectum: Retroflexion with small internal hemorrhoids seen, grade I Anorectum - normal Intervention: cold forceps Impression and Post Procedure Diagnosis: diverticulosis colon polyp internal hemorrhoids Plan: High fiber diet leaflet Avoid straining at stool, epsom salts and sitz bath, anusol supps or cream Repeat Colonoscopy in 5 years due to some areas of fair prep on right if health allows or earlier if clinically indicated BIOPSY still pending at time of this report TODAY'S VISIT HUNGARIAN #Elaine Varner It is likely that her procedural be repeated in 5 years but we have the biopsy report still pending. The procedure was well tolerated. The results were explained and the patient is agreeable to the follow-up interval as stated. The bowel pattern has returned to normal. Education was provided to tell any 1st degree relatives about their findings to be sure that they are screened by age 45. Educated that they will be put on a recall list when it is time for their repeat scope but should they move out of state or away from the hospital they will need to remember along with their primary to repeat the procedure in a timely fashion to avoid any adverse complications. IT APPEARS THAT SHE HAD a cholecystectomy in the interim since I last saw her, sh3e only had 2 oxy pain pills s/p josafat, so this is not a c/f. She still only moves her bowels every 3 days taking 2 bisacodyl at night and Linzess 290 micro g in the morning. However, on further discussion she is not taking her Colace twice a day. I reiterate that this is important to keep the stool softer and will also add a 3rd bisacodyl to take in the morning with her Linzess along with her 2 at night. Return office visit in 6 weeks to evaluate. She continues on her omeprazole with acceptable control of her GERD. Be sure to check biopsy which was not available from her colonoscopy at her next visit. 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 Sacroiliitis Disc degeneration, lumbar OTILIO (obstructive sleep apnea) Back pain HTN (hypertension) Skin cancer (melanoma) GERD (gastroesophageal reflux disease) Depression OTILIO (obstructive sleep apnea) Kidney stones Pulmonary nodule Severe asthma Primary osteoarthritis involving multiple joints Pneumonia Chronic allergic rhinitis (~03/09/20) Asthma-COPD overlap syndrome Surgical History History of bronchoscopy History of cystoscopy History of laparoscopic appendectomy History of nasal surgery Hx of section Hx of tubal ligation Hx of colonoscopy History of esophagogastroduodenoscopy (EGD) Hx of knee surgery Family History Father No problems noted. Mother No problems noted. Social History Household Members: Children Housing: Apartment Do you presently have visiting nurse or other home services: Yes (kick press operator's 02/12) Alcohol intake: never Patient Tobacco Use Status: Never used Tobacco Second Hand Smoke Exposure: No service: No Current occupational status: disabled Current occupation: rt handed Review of Systems Const Denies fatigue, Denies fever(s), Denies night sweats, Denies poor appetite and Denies weight loss ENT Reports Normal hearing present, Denies dental pain, Denies dysphagia, Denies hearing loss, Denies mouth pain, Denies odynophagia, Denies throat swelling, Denies tongue swelling and Reports other (Dentition adequate) Card Reports no additional complaints Resp Reports no additional complaints GI Details: Denies abdominal pain, Denies melena, Reports bloating, Denies hematochezia, Reports constipation, Denies GI cramping, Denies dysphagia, Denies excessive flatus, Denies early satiety, Reports heartburn, Denies diarrhea, Denies nausea, Denies odynophagia, Denies vomiting and Denies hematemesis Skin/Breast Denies pruritus, Denies lesions, Denies rash and Denies jaundice Neuro Reports Normal hearing present and Denies Abnormal speech present Endo Denies fatigue Aller/Immun Denies throat swelling and Denies tongue swelling Physical Exam Vital Signs: Last Vital Signs Pulse 82 12/11/23 09:29 BP 116/70 12/11/23 09:29 BMI result Body Mass Index 34.5 Const General: cooperative, no acute distress, well developed and well groomed Nutritional Appearance: well nourished and obese Orientation/consciousness: oriented to person, oriented to place and oriented to time Limitations: language barrier HEENT Head: Yes normocephalic and Yes atraumatic Eyes General: appearance normal, both eyes and all related structures Pupils: Equal, round and reactive pupils present Neck Neck: Yes normal visual inspection and Yes no lymphadenopathy Thyroid: Thyroid normal Resp Effort & Inspection: normal respiratory effort and able to speak in complete sentences Auscultation: clear to auscultation bilaterally Cardio Rate: regular rate Rhythm: regular rhythm Heart sounds: Normal, physiologic split S2 sound present Peripheral pulses: radial pulses present and posterior tibial pulses present GI Inspection: No distended, No Abdominal panniculus present and Yes obesity Palpation (GI): Soft to palpation, nontender, no guarding, not rigid and No hepatosplenomegaly present Percussion: Yes normal to percussion Auscultation: normal bowel sounds Rectal Exam - Female: deferred Skin General skin exam: no rashes or lesions noted, turgor normal, skin not dry, no jaundice, No spider nevi and no striae Rashes: no rashes Nails: normal Neuro General: oriented to person, oriented to place and oriented to time Cranial nerves: Yes Equal, round and reactive pupils present and Yes Normal hearing present Speech: No Abnormal speech present Extrem General: Yes normal to inspection, No clubbing, No cyanosis and No edema Psych Appearance: grossly normal and well kempt Mental Status: mental status grossly normal Speech and movement: Normal speech and movement present Affect: normal affect Attitude: cooperative Thought process: Normal thought process present and not confabulating Thought content: Normal thought content present Insight: Limited insight present (Psych) Judgement: Limited judgement present (Psych) Results Reviewed Results Reviewed: X-ray of the abdomen and thoracic spine Not obtained Colonoscopy 12/10/23 Findings: Terminal Ileum-normal Cecum:normal Ascending Colon: normal Transverse Colon -normal Descending Colon: 4-6 mm sessile polyp removed with cold forceps Sigmoid Colon: inverted diverticula seen, random bx taken Rectum: Retroflexion with small internal hemorrhoids seen, grade I Anorectum - normal Intervention: cold forceps Impression and Post Procedure Diagnosis: diverticulosis colon polyp internal hemorrhoids Plan: High fiber diet leaflet Avoid straining at stool, epsom salts and sitz bath, anusol supps or cream Repeat Colonoscopy in 5 years due to some areas of fair prep on right if health allows or earlier if clinically indicated BIOPSY still pending at time of this report Assessment & Plan Assessment & Plan (1) GERD (gastroesophageal reflux disease): Code(s): K21.9 - Gastro-esophageal reflux disease without esophagitis Category: Medical Qualifiers: Esophagitis presence: without esophagitis Qualified Code(s): K21.9 - Gastro-esophageal reflux disease without esophagitis (2) Chronic idiopathic constipation: Code(s): K59.04 - Chronic idiopathic constipation Category: Medical (3) Tubular adenoma of colon: Comment: 3 small removed in 2018, 1 large removed 2020 repeat 3 years Code(s): D12.6 - Benign neoplasm of colon, unspecified Category: Medical Plan HUNGARIAN #Elaine Varner It is likely that her procedural be repeated in 5 years but we have the biopsy report still pending. The procedure was well tolerated. The results were explained and the patient is agreeable to the follow-up interval as stated. The bowel pattern has returned to normal. Education was provided to tell any 1st degree relatives about their findings to be sure that they are screened by age 45. Educated that they will be put on a recall list when it is time for their repeat scope but should they move out of state or away from the hospital they will need to remember along with their primary to repeat the procedure in a timely fashion to avoid any adverse complications. IT APPEARS THAT SHE HAD a cholecystectomy in the interim since I last saw her, jeromee only had 2 oxy pain pills s/p josafat, so this is not a c/f. She still only moves her bowels every 3 days taking 2 bisacodyl at night and Linzess 290 micro g in the morning. However, on further discussion she is not taking her Colace twice a day. I reiterate that this is important to keep the stool softer and will also add a 3rd bisacodyl to take in the morning with her Linzess along with her 2 at night. Return office visit in 6 weeks to evaluate. She continues on her omeprazole with acceptable control of her GERD. Be sure to check biopsy which was not available from her colonoscopy at her next visit. Medications: Changed From bisacodyl (Dulcolax (bisacodyl)) 10 mg (2 x 5 mg) PO BEDTIME 30 days 60 tabs 6RF To bisacodyl (Dulcolax (bisacodyl)) 2 tabs qhs adn 1 tab qam orally bedtime; 30 days 90 tabs 6RF Refilled docusate sodium 100 mg PO .BID WITH FOOD 30 days 60 caps 6RF K59.04 - Chronic idiopathic constipation linaclotide (Linzess) 290 mcg PO QAM 30 caps 6RF K59.04 - Chronic idiopathic constipation omeprazole 20 mg PO DAILY 30 caps 6RF K21.9 - Gastro-esophageal reflux disease without esophagitis Coding Level of Care Code Est Pt Level 3 (94527) Diagnoses Gastroesophageal reflux disease without esophagitis K21.9 Esophagitis presence: without esophagitis Chronic idiopathic constipation K59.04 Tubular adenoma of colon D12.6
== END 2023-12-11 10:20 | disposition home or self-care (01) ==
PROVIDERS: PCP General Practice; Visit Provider Nurse Practitioner
DX: K21.9 Gastro-esophageal reflux disease without esophagitis (principal); K59.04 Chronic idiopathic constipation; D12.6 Benign neoplasm of colon, unspecified
CPT/HCPCS: 99213

== ENCOUNTER → 2023-12-11 09:26 | Outpatient (BNVA) | payer OTHER, SELFPAY | PROVIDERS: PCP General Practice; Visit Provider Nurse Practitioner | DX: M47.816 Spondylosis without myelopathy or radiculopathy, lumbar region (principal); M47.814 Spondylosis without myelopathy or radiculopathy, thoracic region; M53.3 Sacrococcygeal disorders, not elsewhere classified; R10.12 Left upper quadrant pain; R10.31 Right lower quadrant pain; R10.32 Left lower quadrant pain; K21.9 Gastro-esophageal reflux disease without esophagitis; K59.04 Chronic idiopathic constipation; D12.6 Benign neoplasm of colon, unspecified | CPT/HCPCS: 99212 ==

== ENCOUNTER 2023-12-23 14:35 | Outpatient (AMB) | payer OTHER, SELFPAY ==
--- NOTE | 2023-12-23 14:37 | MHC.OFFVIS ---
Vital Signs 12/23/23 14:45 Height 5 ft 3 in Weight 194 lb 0.108 oz BMI 34.4 BP 120/72 Blood Pressure Location Lt brachial Position Sitting Intake Visit Reasons: abdominal pain, hx lap josafat 10/09/23 Intake Note: Patient is seen in office for abdominal pain, history of lap josafat on 10/09/23. Pt c/o: incision at the top of the belly button is still painful, comes and goes, gets red at times, no hard lump, eating well, admits to constipation, bm every 3 to 4 days Snow Plow Operator Required: Yes Snow Plow Operator Language: Payment Collector Services: Snow Plow Operator Present Snow Plow Operator Name: Kandi SOUZA Accompanied by: Family/Other Allergies morphine [MORPHINE] Allergy (Intermediate, Verified 12/23/23 14:45) NAUSEA, rash, redness Medication List - Last Reconciled 12/23/23 by Zaki Cheung MD acetaminophen ER 650 mg PO Q6H PRN albuterol sulfate 2.5 mg (3 mL) inhalation Q4H PRN 30 days albuterol sulfate 90 mcg/actuation 2 puffs inhalation Q4-6H PRN alendronate 70 mg PO QWEEK aspirin 1 tab PO DAILY bisacodyl (Dulcolax (bisacodyl)) 2 tabs qhs adn 1 tab qam orally bedtime; 30 days carvedilol 25 mg PO BID cholecalciferol (vitamin D3) (Vitamin D3) 50 mcg PO DAILY diltiazem HCl CD 240 mg PO DAILY docusate sodium 100 mg PO .BID WITH FOOD 30 days fluticasone furoate-vilanterol 200-25 mcg/dose (Breo Ellipta) 1 ea PO DAILY hydrochlorothiazide 25 mg PO DAILY imipramine HCl mg PO linaclotide (Linzess) 290 mcg PO QAM [id number] 24,000-76,000 -120,000 unit (Creon) 1 cap PO QIDACHS 30 days lisinopril 40 mg PO DAILY metformin 500 mg PO DAILY montelukast 10 mg PO DAILY 30 days naproxen 250 mg PO BID PRN nebulizers As directed omeprazole 20 mg PO DAILY oxycodone 5 mg PO TID PRN prednisone 10 mg PO DAILY PRN roflumilast mcg PO tiotropium bromide 2.5 mcg/actuation (Spiriva Respimat) 2 puffs inhalation DAILY 30 days HPI Comments Details: 73-year-old female patient status post laparoscopic cholecystectomy on 10/09/2023 returning with complaints of epigastric abdominal pain near her upper abdominal incision. She reports occasional increases in pain with swelling and redness noted in the incision. She continues to have constipation and is being followed by the GI clinic. She denies fever or chills. 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 Sacroiliitis Disc degeneration, lumbar OTILIO (obstructive sleep apnea) Back pain HTN (hypertension) Skin cancer (melanoma) GERD (gastroesophageal reflux disease) Depression OTILIO (obstructive sleep apnea) Kidney stones Pulmonary nodule Severe asthma Primary osteoarthritis involving multiple joints Pneumonia Chronic allergic rhinitis (~03/09/20) Asthma-COPD overlap syndrome Surgical History History of bronchoscopy History of cystoscopy History of laparoscopic appendectomy History of nasal surgery Hx of section Hx of tubal ligation Hx of colonoscopy History of esophagogastroduodenoscopy (EGD) Hx of knee surgery Family History Father No problems noted. Mother No problems noted. Social History Household Members: Children Housing: Apartment Do you presently have visiting nurse or other home services: Yes (complaint specialist's 02/12) Alcohol intake: never Patient Tobacco Use Status: Never used Tobacco Second Hand Smoke Exposure: No service: No Current occupational status: disabled Current occupation: rt handed Review of Systems Const All systems reviewed & are unremarkable except as noted in HPI and below Physical Exam Const General: no acute distress Nutritional Appearance: well nourished Orientation/consciousness: patient oriented x3 Resp Effort & Inspection: normal respiratory effort, no audible wheezes, no cough and no respiratory distress GI Inspection: Yes normal to inspection Palpation (GI): Soft to palpation, Tenderness to palpation present (GI) in the epigastrum, no guarding, not rigid and no hernias Percussion: Yes normal to percussion Auscultation: normal bowel sounds Rectal Exam - Female: deferred Abdomen image: 1. Epigastric incision, site of tenderness in mid incision. Skin Other: Warm, dry, no rashes Neuro General: patient oriented x3 Extrem Other: no edema Assessment & Plan Assessment & Plan (1) Abdominal pain, epigastric: Code(s): R10.13 - Epigastric pain Category: Medical Plan 73-year-old female patient returning following a laparoscopic cholecystectomy on 10/09/2023 now presenting with complaints of pain in the epigastric incision. This seems to increase with activity and is associated with swelling at the incision. Examination does reveal tenderness but no definite hernias appreciated. I recommended further evaluation with an ultrasound of the abdomen to evaluate for an incisional hernia. She should return following the ultrasound to review the results and discuss treatment options. She expressed understanding and agrees with the plan. Orders: Orders US abdomen limited Today R10.13 - Epigastric pain Coding Level of Care Code Est Pt Level 3 (74127) Diagnoses Abdominal pain, epigastric R10.13
[2023-12-23 14:45] VITALS: BP 120/72; BMI 34.4
== END 2023-12-23 14:45 | disposition home or self-care (01) ==
PROVIDERS: PCP General Practice; Visit Provider Surgery
DX: R10.13 Epigastric pain (principal)
CPT/HCPCS: 99024

== ENCOUNTER → 2023-12-23 14:35 | Outpatient (BNVA) | payer OTHER, SELFPAY | PROVIDERS: PCP General Practice; Visit Provider Surgery | DX: R10.13 Epigastric pain (principal); Z90.49 Acquired absence of other specified parts of digestive tract | CPT/HCPCS: 99212 ==

== ENCOUNTER 2023-12-25 10:01 | Outpatient (AMB) | payer OTHER, SELFPAY ==
[2023-12-25 10:38] VITALS: BMI 34.4
--- NOTE | 2023-12-25 10:38 | MHC.OFFVIS ---
Vital Signs 12/25/23 10:38 Height 5 ft 3 in Weight 194 lb BMI 34.4 Intake Visit Reasons: OV- Bilateral Knee Pain-follow up Intake Note: Margarita is a 73 year old female who presents today for a follow up of her bilateral knee OA. Last injection done 09/22/23. Patient reports that she does not want to repeat injections today as the last ones were not helpful. She would like to discuss alternative treatment options. Allergies morphine [MORPHINE] Allergy (Intermediate, Verified 12/23/23 14:45) NAUSEA, rash, redness HPI HPI OV- Bilateral Knee Pain-follow up: Details: Margarita is a 73 year old female who presents today for a follow up of her bilateral knee OA. Last injection done 09/22/23. Patient reports that she does not want to repeat injections today as the last ones were not helpful. She would like to discuss alternative treatment options. She has severe left knee pain. 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 Sacroiliitis Disc degeneration, lumbar OTILIO (obstructive sleep apnea) Back pain HTN (hypertension) Skin cancer (melanoma) GERD (gastroesophageal reflux disease) Depression OTILIO (obstructive sleep apnea) Kidney stones Pulmonary nodule Severe asthma Primary osteoarthritis involving multiple joints Pneumonia Chronic allergic rhinitis (~03/09/20) Asthma-COPD overlap syndrome Surgical History History of bronchoscopy History of cystoscopy History of laparoscopic appendectomy History of nasal surgery Hx of section Hx of tubal ligation Hx of colonoscopy History of esophagogastroduodenoscopy (EGD) Hx of knee surgery Family History Father No problems noted. Mother No problems noted. 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 machine operator's 02/12) Alcohol intake: never Patient Tobacco Use Status: Never used Tobacco Second Hand Smoke Exposure: No service: No Current occupational status: disabled Current occupation: rt handed Physical Exam Vital Signs: BMI result Body Mass Index 34.4 Const General: no acute distress, alert and awake Orientation/consciousness: patient oriented x3 HEENT Head: Yes normocephalic and Yes atraumatic Eyes EOM: EOMs intact bilaterally Resp Effort & Inspection: normal respiratory effort and able to speak in complete sentences Cardio Jugular venous distension: no JVD Skin General skin exam: turgor normal Rashes: no rashes Neuro General: patient oriented x3 Extrem Other: Left Knee: Valgus pattern osteoarthritis left knee with an antalgic gait and tenderness to palpation over the lateral and anterolateral left knee. Moderate effusion. 5-125 degrees of motion. Psych Appearance: grossly normal Affect: normal affect Attitude: cooperative Results Reviewed Results Reviewed: Valgus left knee OA with loss of lateral joint space Assessment & Plan Assessment & Plan (1) Osteoarthritis of left knee: Code(s): M17.12 - Unilateral primary osteoarthritis, left knee Category: Medical Plan: Severe valgus left knee OA with pain and dysfunction. She has failed injections. She has a poor quality of life and I recommend left knee arthroplasty. I discussed the risks benefits and alternatives including but not limited to the risk of pain, infection, stiffness, need for further surgery as well as potential medical complications such as blood clots, pulmonary embolism and cardiac complications. She expressed understanding. Coding Level of Care Code Est Pt Level 4 (72038) Diagnoses Osteoarthritis of left knee M17.12
== END 2023-12-25 11:15 | disposition home or self-care (01) ==
PROVIDERS: PCP General Practice; Visit Provider Orthopaedic Surgery
DX: M17.12 Unilateral primary osteoarthritis, left knee (principal)
CPT/HCPCS: 99214

== ENCOUNTER → 2023-12-25 10:01 | Outpatient (BNVA) | payer OTHER, SELFPAY | PROVIDERS: PCP General Practice; Visit Provider Orthopaedic Surgery | DX: M17.0 Bilateral primary osteoarthritis of knee (principal) | CPT/HCPCS: 99212 ==

== ENCOUNTER 2024-01-01 07:39 | Outpatient (REF) | payer OTHER, SELFPAY ==
--- NOTE | ~2024-01-01 | US_ITS ---
EXAMINATION: US ABDOMEN LIMITED CLINICAL INFORMATION: Epigastric pain. Status post laparoscopic cholecystectomy 10/09/2023 now with pain at the epigastric incision, possible incisional hernia. COMPARISON: MRI MRCP 10/08/2023. Limited abdominal ultrasound 10/08/2023. CT abdomen and pelvis 10/08/2023. Ultrasound abdomen complete 10/25/2020. TECHNIQUE: Real-time imaging of the right upper quadrant abdominal viscera. FINDINGS: PANCREAS: Obscured by bowel gas. LIVER: The liver is normal in size. The liver contour is normal. Hepatic echogenicity is favored to be within limits of normal. No focal hepatic lesion. There is no intrahepatic biliary duct dilatation seen. GALLBLADDER: Surgically absent. COMMON BILE DUCT: Normal in caliber measuring 0.6 cm in diameter. RIGHT KIDNEY: Normal. No hydronephrosis. No renal calculi or focal parenchymal lesions. The kidney measures 10.4 cm in maximum dimension. FREE FLUID: None. ADDITIONAL FINDINGS: Corresponding to the area of pain at the site of scarring in the ventral abdominal wall no hernia is appreciated. US/US abdomen limited IMPRESSION: 1. Corresponding to the area of pain at the site of scarring in the ventral abdominal wall no hernia is appreciated. Electronically signed by: Katharina Juan MD 01/19/2024 06:28 PM EDT
== END 2024-01-01 07:40 | disposition home or self-care (01) ==
LOC: HO.US 07:39
PROVIDERS: PCP General Practice; Visit Provider Surgery
DX: R10.13 Epigastric pain (principal)
CPT/HCPCS: 76705

== ENCOUNTER 2024-01-19 13:28 | Outpatient (AMB) | payer OTHER, SELFPAY ==
--- NOTE | 2024-01-19 13:33 | MHC.OFFVIS ---
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 Recently had a CT scan of the abdomen demonstrating hiatal hernia as well. She continues to be on her respiratory regimen which includes Trelegy and also budesonide nebs and albuterol nebs. She had also takes her allergy medicine including singular. Recently she could not find her singular medication nguyen and she has noticed that her respiratory symptoms are getting worse. The patient also has cough. Moderate severity. Tends to be dry. We did talk about the reflux diet. Is going to try to follow it closely. She was slow to improve had a CT scan done again demonstrating airspace disease in the left base. She did undergo bronchoscopy with significant mucus burden status post therapeutic bronchoscopy. 07/15/2023 the patient is here for a pulmonary follow-up visit. Patient overall has been feeling a little bit worse from her asthma. She has been sometime in [place] her asthma was good. However when she made back to this state she started developing again to tightness and wheezing. unfortunately, her nebulizer fell and broke and is no longer working. She needs have a functional nebulizer in view of her severe persistent asthma. will go ahead and order a new nebulizer replacement for the patient at this time. In the meantime she has been having hard time with her CPAP because she has not been getting supplies. I have explained to her that based on the fact that she has not using it the insurance will cover for any supplies. Therefore, she is going to start using at this time. Will review the use with the next download. 09/18/2023 the patient is here for a pulmonary follow-up visit. She unfortunately developed worsening respiratory symptoms. She did go to the hospital she was diagnosed with influenza A. She went to the hospital twice after that with worsening respiratory symptoms cough wheezing chest tightness. She was given prednisone multiple times. The patient was not admitted to the hospital. Her chest x-ray was clear. She still continues to complain of shortness of breath. Even with minimal activity moderate severity. Also complains of some chest congestion. She has been using her nebulizer treatments in addition to her respiratory medications and now she ran out. I will make sure to supply of the medication pharmacy. The patient also will be treated for postviral bacterial infection and also still having wheezing on examination so therefore will place her on a small dose of prednisone that she can taper down slowly to try to improve her respiratory symptoms. If the patient is no better she would come in for chest x-ray. She also struggling with her CPAP. Her CPAP supplies have not been recieved. We did request supplies from the [employer] company during the last visit. Will call the DME again. Also she needs a nebulizer replacement that we requested during her last visit. 01/19/2024 the patient is here for a pulmonary follow-up visit. The patient is complaining worsening cough. She does not feel like the Breo is helping her. She also has wheezing and chest tightness. She did have a Symbicort available and she tried that and worked a lot better than her medication. She is also wondering over biologic injections. She is currently taking Spiriva. Will go ahead and maximize her respiratory therapy by switching over to Symbicort and continue the Spiriva. If the patient is no better she can have blood work done to assess her for allergic biologic therapies. In the meantime she does have a new CPAP with her. The CPAP therapy has been affecting beneficial. Her AHI is down 0.5. The patient has been use it more than 4 hours a night which is reassuring. The major issues that has an air leakage from her fullface mask. Will try to get her a different mask, F 30 medium mask on to her DME company. Her DME company is [employer]. She has not heard from them. I will send prescriptions in order for her to get supplies. The patient otherwise is doing well. Will follow-up in the spring. In the meantime she develops any worsening symptoms prior to that she will come for an earlier assessment. 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 Sacroiliitis Disc degeneration, lumbar OTILIO (obstructive sleep apnea) Back pain HTN (hypertension) Skin cancer (melanoma) GERD (gastroesophageal reflux disease) Depression OTILIO (obstructive sleep apnea) Kidney stones Pulmonary nodule Severe asthma Primary osteoarthritis involving multiple joints Pneumonia Chronic allergic rhinitis (~03/09/20) Asthma-COPD overlap syndrome Surgical History History of bronchoscopy History of cystoscopy History of laparoscopic appendectomy History of nasal surgery Hx of section Hx of tubal ligation Hx of colonoscopy History of esophagogastroduodenoscopy (EGD) Hx of knee surgery Family History Father No problems noted. Mother No problems noted. 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) Alcohol intake: never Patient Tobacco Use Status: Never used Tobacco Second Hand Smoke Exposure: No service: No Current occupational status: disabled Current occupation: rt handed Review of Systems Const Denies daytime sleepiness, Denies stops breathing during sleep and Reports weight gain Eyes Denies change in vision ENT Reports Normal hearing present Card Reports dyspnea Resp Reports chest congestion, Reports cough, Reports dyspnea and Reports wheezing Musc Reports back pain Neuro Reports Normal hearing present and Denies Abnormal speech present Aller/Immun Reports wheezing Physical Exam Vital Signs: Last Vital Signs Pulse 73 01/19/24 13:35 BP 124/70 01/19/24 13:35 Pulse Ox 95 01/19/24 13:35 Oxygen Delivery Method Room Air 01/19/24 13:35 BMI result Body Mass Index 34.3 Const General: alert Neck Neck: Yes normal visual inspection, Yes full ROM and Yes no lymphadenopathy Chest Chest palpation & inspection: normal inspection of the chest Resp Effort & Inspection: normal respiratory effort and prolonged expiratory phase Auscultation: no rhonchi, no wheezes and diminished lung sounds Cardio Rate: regular rate Rhythm: regular rhythm Heart sounds: S1 normal heart sound present and S2 normal heart sound present GI Palpation (GI): Soft to palpation and nontender Auscultation: normal bowel sounds Skin General skin exam: rashes and/or lesions noted Neuro Cranial nerves: Yes Normal hearing present Speech: No Abnormal speech present Assessment & Plan Assessment & Plan (1) Asthma-COPD overlap syndrome: Code(s): J44.9 - Chronic obstructive pulmonary disease, unspecified Category: Medical (2) Severe asthma: Code(s): J45.909 - Unspecified asthma, uncomplicated Category: Medical Qualifiers: Asthma persistence: persistent Asthma complication type: uncomplicated Qualified Code(s): J45.50 - Severe persistent asthma, uncomplicated (3) OTILIO (obstructive sleep apnea): Code(s): G47.33 - Obstructive sleep apnea (adult) (pediatric) Category: Medical (4) Pulmonary nodule: Code(s): R91.1 - Solitary pulmonary nodule Category: Medical (5) GERD (gastroesophageal reflux disease): Code(s): K21.9 - Gastro-esophageal reflux disease without esophagitis Category: Medical Qualifiers: Esophagitis presence: without esophagitis Qualified Code(s): K21.9 - Gastro-esophageal reflux disease without esophagitis (6) Atelectasis of left lung: Code(s): J98.11 - Atelectasis Category: Medical Plan start zyrtec bloodwork Continue APAP, requesting F30 medium mask continue Daliresp 500mg daily stop Breo start symbicort continue Spiriva JOHANA as needed consider Biologic therapy if no better prevnar 20 continue sinngulair F/U 6-8 months Orders: Orders Pneumococcal 20 Immunization Today J44.9 - Chronic obstructive pulmonary disease, unspecified Complete Blood Count Auto Diff Today J45.909 - Unspecified asthma, uncomplicated Immunoglobulins,IgG IgA IgM Today J45.909 - Unspecified asthma, uncomplicated Immunoglobulin E Today J45.909 - Unspecified asthma, uncomplicated Erythrocyte Sedimentation Rate Today J45.909 - Unspecified asthma, uncomplicated Medications: New budesonide-formoterol 160-4.5 mcg/actuation 2 puffs inhalation BID 10.2 grams 11RF 30 days J44.89 - Other specified chronic obstructive pulmonary disease cetirizine (Zyrtec) 10 mg PO DAILY 30 tabs 7RF 30 days Coding Level of Care Code Est Pt Level 4 (91507) Complex EM visit Add On G2211 Diagnoses Asthma-COPD overlap syndrome J44.9 Severe persistent asthma without complication J45.50 Asthma persistence: persistent Asthma complication type: uncomplicated OTILIO (obstructive sleep apnea) G47.33 Pulmonary nodule R91.1 Gastroesophageal reflux disease without esophagitis K21.9 Esophagitis presence: without esophagitis Atelectasis of left lung J98.11 Time Spent (min) 17
[2024-01-19 13:35] VITALS: BP 124/70; PULSE 73; O2SAT 95; BMI 34.3
== END 2024-01-19 14:05 | disposition home or self-care (01) ==
PROVIDERS: PCP General Practice; Visit Provider Hospitalist
DX: J45.909 Unspecified asthma, uncomplicated (principal)
CPT/HCPCS: 99214

== ENCOUNTER → 2024-01-19 13:28 | Outpatient (BNVA) | payer OTHER, SELFPAY | PROVIDERS: PCP General Practice; Visit Provider Hospitalist | DX: J44.9 Chronic obstructive pulmonary disease, unspecified (principal); J45.50 Severe persistent asthma, uncomplicated; G47.33 Obstructive sleep apnea (adult) (pediatric); R91.1 Solitary pulmonary nodule; J98.11 Atelectasis; K21.9 Gastro-esophageal reflux disease without esophagitis; Z23 Encounter for immunization | CPT/HCPCS: 90471; 90677; 99212 ==

== ENCOUNTER 2024-01-27 12:34 | Outpatient (AMB) | payer OTHER, SELFPAY ==
--- NOTE | 2024-01-27 12:43 | MHC.OFFVIS ---
Vital Signs 01/27/24 12:51 Height 5 ft 3 in Weight 199 lb BMI 35.2 BP 153/71 H Blood Pressure Location Lt brachial Position Sitting Pulse 76 Intake Visit Reasons: 6 weeks follow up Intake Note: Patient follow up for acid reflex Patient cc: acid reflex, abdominal pain, better BM, and denies any other GI issues. Community Facilitator Required: Yes Accompanied by: Family/Other Allergies morphine [MORPHINE] Allergy (Intermediate, Verified 02/04/24 11:07) NAUSEA, rash, redness HPI HPI 6 weeks follow up: Details: Assessment & Plan (1) GERD (gastroesophageal reflux disease): Code(s): K21.9 - Gastro-esophageal reflux disease without esophagitis Category: Medical Qualifiers: Esophagitis presence: without esophagitis Qualified Code(s): K21.9 - Gastro-esophageal reflux disease without esophagitis (2) Chronic idiopathic constipation: Code(s): K59.04 - Chronic idiopathic constipation Category: Medical (3) Tubular adenoma of colon: Comment: 3 small removed in 2017, 1 large removed 2020 repeat 3 years Code(s): D12.6 - Benign neoplasm of colon, unspecified Category: Medical Plan LAO #Elaine Live It is likely that her procedural be repeated in 5 years but we have the biopsy report still pending. The procedure was well tolerated. The results were explained and the patient is agreeable to the follow-up interval as stated. The bowel pattern has returned to normal. Education was provided to tell any 1st degree relatives about their findings to be sure that they are screened by age 45. Educated that they will be put on a recall list when it is time for their repeat scope but should they move out of state or away from the hospital they will need to remember along with their primary to repeat the procedure in a timely fashion to avoid any adverse complications. IT APPEARS THAT SHE HAD a cholecystectomy in the interim since I last saw her, papa only had 2 oxy pain pills s/p josafat, so this is not a c/f. She still only moves her bowels every 3 days taking 2 bisacodyl at night and Linzess 290 micro g in the morning. However, on further discussion she is not taking her Colace twice a day. I reiterate that this is important to keep the stool softer and will also add a 3rd bisacodyl to take in the morning with her Linzess along with her 2 at night. Return office visit in 6 weeks to evaluate. She continues on her omeprazole with acceptable control of her GERD. Be sure to check biopsy which was not available from her colonoscopy at her next visit. Medications: Changed From bisacodyl (Dulcolax (bisacodyl)) 10 mg (2 x 5 mg) PO BEDTIME 30 days 60 tabs 6RF To bisacodyl (Dulcolax (bisacodyl)) 2 tabs qhs adn 1 tab qam orally bedtime; 30 days 90 tabs 6RF Refilled docusate sodium 100 mg PO .BID WITH FOOD 30 days 60 caps 6RF K59.04 - Chronic idiopathic constipation linaclotide (Linzess) 290 mcg PO QAM 30 caps 6RF K59.04 - Chronic idiopathic constipation omeprazole 20 mg PO DAILY 30 caps 6RF K21.9 - Gastro-esophageal reflux disease without esophagitis TODAY'S VISIT LAO #Karishma Varner and Rabia With the addition of 2 bisacodyl in the evening and 1 in the morning along with her Linzess 290 she is now moving her bowels well. She is happy with this and feels that this is a good part of her regimen. She also continues on her imipramine 100 mg at bedtime, omeprazole 20 mg, and doctor sit 100 mg twice a day with food. The imipramine is for both her chronic pain syndrome and her irritable bowel in the past she was on amitriptyline as well so we have combined this until 1 tricyclic antidepressant. Return office visit in 3 months [facility] Medical History Atelectasis of left lung Chronic pain syndrome 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 Sacroiliitis Disc degeneration, lumbar OTILIO (obstructive sleep apnea) Back pain HTN (hypertension) Skin cancer (melanoma) GERD (gastroesophageal reflux disease) Depression OTILIO (obstructive sleep apnea) Kidney stones Pulmonary nodule Severe asthma Primary osteoarthritis involving multiple joints Pneumonia Chronic allergic rhinitis (~03/09/20) Asthma-COPD overlap syndrome Surgical History History of bronchoscopy History of cystoscopy History of laparoscopic appendectomy History of nasal surgery Hx of section Hx of tubal ligation Hx of colonoscopy History of esophagogastroduodenoscopy (EGD) Hx of knee surgery Family History Father No problems noted. Mother No problems noted. 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) Alcohol intake: never Patient Tobacco Use Status: Never used Tobacco Second Hand Smoke Exposure: No Do you have a plan to hurt others: No Plan service: No Current occupational status: disabled Current occupation: rt handed Review of Systems Const Denies fatigue, Denies fever(s), Denies night sweats, Denies poor appetite and Denies weight loss ENT Reports Normal hearing present, Denies dental pain, Denies dysphagia, Denies hearing loss, Denies mouth pain, Denies odynophagia, Denies throat swelling, Denies tongue swelling and Reports other (Dentition adequate) Card Reports no additional complaints Resp Reports no additional complaints GI Details: Denies abdominal pain, Denies melena, Reports bloating, Denies hematochezia, Reports constipation, Denies GI cramping, Denies dysphagia, Denies excessive flatus, Denies early satiety, Reports heartburn, Denies diarrhea, Denies nausea, Denies odynophagia, Denies vomiting and Denies hematemesis Skin/Breast Denies pruritus, Denies lesions, Denies rash and Denies jaundice Neuro Reports Normal hearing present and Denies Abnormal speech present Endo Denies fatigue Aller/Immun Denies throat swelling and Denies tongue swelling Physical Exam Vital Signs: Last Vital Signs Pulse 76 01/27/24 12:51 BP 153/71 H 01/27/24 12:51 BMI result Body Mass Index 35.2 Const General: cooperative, no acute distress, well developed and well groomed Nutritional Appearance: well nourished and obese Orientation/consciousness: oriented to person, oriented to place and oriented to time Limitations: language barrier HEENT Head: Yes normocephalic and Yes atraumatic Eyes General: appearance normal, both eyes and all related structures Pupils: Equal, round and reactive pupils present Neck Neck: Yes normal visual inspection and Yes no lymphadenopathy Thyroid: Thyroid normal Resp Effort & Inspection: normal respiratory effort and able to speak in complete sentences Auscultation: clear to auscultation bilaterally Cardio Rate: regular rate Rhythm: regular rhythm Heart sounds: Normal, physiologic split S2 sound present Peripheral pulses: radial pulses present and posterior tibial pulses present GI Inspection: No distended, No Abdominal panniculus present and Yes obesity Palpation (GI): Soft to palpation, nontender, no guarding, not rigid and No hepatosplenomegaly present Percussion: Yes normal to percussion Auscultation: normal bowel sounds Rectal Exam - Female: deferred Skin General skin exam: no rashes or lesions noted, turgor normal, skin not dry, no jaundice, No spider nevi and no striae Rashes: no rashes Nails: normal Neuro General: oriented to person, oriented to place and oriented to time Cranial nerves: Yes Equal, round and reactive pupils present and Yes Normal hearing present Speech: No Abnormal speech present Extrem General: Yes normal to inspection, No clubbing, No cyanosis and No edema Psych Appearance: grossly normal and well kempt Mental Status: mental status grossly normal Speech and movement: Normal speech and movement present Affect: normal affect Attitude: cooperative Thought process: Normal thought process present and not confabulating Thought content: Normal thought content present Insight: Limited insight present (Psych) Judgement: Limited judgement present (Psych) Assessment & Plan Assessment & Plan (1) GERD (gastroesophageal reflux disease): Code(s): K21.9 - Gastro-esophageal reflux disease without esophagitis Category: Medical Qualifiers: Esophagitis presence: without esophagitis Qualified Code(s): K21.9 - Gastro-esophageal reflux disease without esophagitis (2) Chronic idiopathic constipation: Code(s): K59.04 - Chronic idiopathic constipation Category: Medical (3) Tubular adenoma of colon: Comment: 3 small removed in 2017, 1 large removed 2020 repeat 3 years Code(s): D12.6 - Benign neoplasm of colon, unspecified Category: Medical (4) Spasm of bowel: Code(s): K58.9 - Irritable bowel syndrome without diarrhea Category: Medical (5) Chronic pain syndrome: Code(s): G89.4 - Chronic pain syndrome Category: Medical Plan LAO #Karishma Varner and Rabia With the addition of 2 bisacodyl in the evening and 1 in the morning along with her Linzess 290 she is now moving her bowels well. She is happy with this and feels that this is a good part of her regimen. She also continues on her imipramine 100 mg at bedtime, omeprazole 20 mg, and doctor sit 100 mg twice a day with food. The imipramine is for both her chronic pain syndrome and her irritable bowel in the past she was on amitriptyline as well so we have combined this until 1 tricyclic antidepressant. Return office visit in 3 months Medications: Changed From bisacodyl 2 tabs qhs adn 1 tab qam orally bedtime; 30 days 90 tabs 6RF To bisacodyl (Dulcolax (bisacodyl)) 2 tabs qhs adn 1 tab qam orally bedtime; 90 tabs 6RF 30 days From imipramine HCl PO G89.4 - Chronic pain syndrome, K58.9 - Irritable bowel syndrome without diarrhea To imipramine HCl 100 mg (2 x 50 mg) PO BEDTIME 60 tabs 6RF G89.4 - Chronic pain syndrome, K58.9 - Irritable bowel syndrome without diarrhea Refilled linaclotide (Linzess) 290 mcg PO QAM 30 caps 6RF K59.04 - Chronic idiopathic constipation [id number] 24,000-76,000 -120,000 unit (Creon) administer with meals and/or snacks 1 cap PO QIDACHS 120 caps 6RF 30 days K82.8 - Other specified diseases of gallbladder docusate sodium 100 mg PO .BID WITH FOOD 60 caps 6RF 30 days K59.04 - Chronic idiopathic constipation Coding Level of Care Code Est Pt Level 3 (48962) Diagnoses Gastroesophageal reflux disease without esophagitis K21.9 Esophagitis presence: without esophagitis Chronic idiopathic constipation K59.04 Tubular adenoma of colon D12.6 Spasm of bowel K58.9 Chronic pain syndrome G89.4
[2024-01-27 12:51] VITALS: BP 153/71; PULSE 76; BMI 35.2
== END 2024-01-27 13:27 | disposition home or self-care (01) ==
PROVIDERS: PCP General Practice; Visit Provider Nurse Practitioner
DX: K21.9 Gastro-esophageal reflux disease without esophagitis (principal); K59.04 Chronic idiopathic constipation; D12.6 Benign neoplasm of colon, unspecified; K58.9 Irritable bowel syndrome, unspecified; G89.4 Chronic pain syndrome
CPT/HCPCS: 99213

== ENCOUNTER → 2024-01-27 12:34 | Outpatient (BNVA) | payer OTHER, SELFPAY | PROVIDERS: PCP General Practice; Visit Provider Nurse Practitioner | DX: K21.9 Gastro-esophageal reflux disease without esophagitis (principal); K59.04 Chronic idiopathic constipation; K58.9 Irritable bowel syndrome, unspecified; D12.6 Benign neoplasm of colon, unspecified; G89.4 Chronic pain syndrome | CPT/HCPCS: 99212 ==

== ENCOUNTER 2024-02-02 09:46 | Emergency (ER) | payer OTHER, SELFPAY ==
--- NOTE | ~2024-02-02 | XR_ITS ---
EXAMINATION: XR CHEST CLINICAL INFORMATION: Cough COMPARISON: 10/08/2023 TECHNIQUE: Frontal view of the chest was obtained. FINDINGS: Heart size within normal limits. There is no evidence of CHF. There is some mild increase in patchy density in the right inferior hilar region as well as in the retrocardiac region. No pleural effusions are seen. No suspicious lung masses. The bony thorax is unremarkable. XR/XR chest 1V IMPRESSION: Mild increase in patchy density in the right inferior hilar region and retrocardiac region. Differential diagnosis would include atelectasis versus infection. Electronically signed by: Miguel Angel Sánchez MD 02/02/2024 01:44 PM EDT
[2024-02-02 09:57] VITALS: BP 153/87; PULSE 100; RESP 20; TEMP 36.6; O2SAT 93; BMI 34.4
--- NOTE | 2024-02-02 10:03 | ECG_ITS ---
Test Reason : cp Blood Pressure : / mmHG Vent. Rate : 090 BPM Atrial Rate : 090 BPM P-R Int : 144 ms QRS Dur : 132 ms QT Int : 388 ms P-R-T Axes : 025 001 000 degrees QTc Int : 474 ms Normal sinus rhythm Right bundle branch block Inferior infarct , age undetermined Abnormal ECG When compared with ECG of 08-OCT-2023 05:05, Inverted T waves have replaced nonspecific T wave abnormality in Inferior leads Referred By: Generic ED Physician Electronically Signed By:GENNA PALOMO
[2024-02-02 10:19] LABS: MANUAL DIFF FLAG NO
[2024-02-02 10:22] LABS: Basophils Absolute Auto 0.1 X10*3/uL (0.0-0.2); Basophils Percent Auto 0.8 % (0-2); Eosinophils Absolute Auto 0.5 X10*3/uL (0.0-0.4); Eosinophils Percent Auto 6.4 % (0-4); Hematocrit 42.2 % (37.0-47.0); Hemoglobin 14.2 g/dl (12.0-16.0); Imm Gran Abs Auto 0.02 X10*3/uL (0.00-0.03); Imm Gran Pct Auto 0.3 % (0.0-0.4); Lymphocytes Absolute Auto 1.1 X10*3/uL (1.2-4.9); Lymphocytes Percent Auto 15.5 % (20-40); Mean Corpuscular HGB Conc 33.6 g/dl (31.0-35.0); Mean Corpuscular Hemoglobin 30.5 pg (27.0-33.0); Mean Corpuscular Volume 90.8 fL (80.0-98.0); Mean Platelet Volume 10.3 fL (9.4-12.3); Monocytes Absolute Auto 0.8 X10*3/uL (0.1-1.2); Monocytes Percent Auto 10.7 % (2-11); Neutrophils Absolute Auto 4.8 x10*3/uL (2.0-8.3); Neutrophils Percent Auto 66.3 % (45-73); Platelet Count 271 X10*3/uL (160-400); Red Blood Count 4.65 X10*6/uL (4.20-5.50); Red Cell Distribution Width 12.2 % (11.0-16.0); White Blood Count 7.2 X10*3/uL (4.8-10.8)
[2024-02-02 10:37] LABS: Alanine Aminotransferase 14 U/L (0-31); Albumin Level 4.1 g/dL (3.5-5.0); Alkaline Phosphatase 80 U/L (39-117); Anion Gap 12 (12-20); Aspartate Amino Transferase 14 U/L (5-31); Bilirubin Total 1.4 mg/dL (0.0-1.0); Blood Urea Nitrogen 10 mg/dL (9-16); Calcium 9.7 mg/dL (8.4-10.2); Carbon Dioxide 23 mmol/L (22-29); Chloride 109 mmol/L (96-108); Creatinine Clr Calc Pharmacy 73.1; Estimated Glomerular Filt Rate > 60; Glucose Random 107 mg/dL (60-115); Potassium 3.8 mmol/L (3.3-5.1); Sodium 140 mmol/L (135-145); Total Protein 7.6 g/dL (6.5-8.0)
[2024-02-02 10:44] LABS: Troponin-I High Sensitivity < 2.7 ng/L (<3.5-17.0)
[2024-02-02 11:04] LABS: Influenza A PCR NEGATIVE (Negative); Influenza B PCR NEGATIVE (Negative); Resp Syncy Virus RNA Qual PCR POSITIVE (Negative); SARS COV2 PCR INHOUSE NEGATIVE (Negative)
[2024-02-02 11:53] LABS: IDNOW Serial# 58CA691E; Strep A Nucleic Acid Negative (Negative)
[2024-02-02] MEDS: methylPREDNISolone Sod Succ 125 MG/2 ML VIAL 60 MG IM (13:39)
[2024-02-02] MEDS: Acetaminophen 325 MG TABLET 975 MG PO (13:40)
[2024-02-02 13:47] VITALS: PULSE 94; RESP 26; O2SAT 95
[2024-02-02] MEDS: Albuterol Sulfate 5 MG, Albuterol/Iprat 2.5/0.5MG 3 ML 3 ML INHALE (13:51)
[2024-02-02 14:10] VITALS: PULSE 104; RESP 20; O2SAT 96
[2024-02-02] MEDS: Albuterol Sulfate 2.5 MG, Albuterol Sulfate (0.083%) 2.5 MG 5 MG INHALE (14:13)
--- NOTE | 2024-02-02 15:10 | ED_ITS ---
HPI - URI/Sore Throat General Chief Complaint: Upper Respiratory Symptoms Stated Complaint: SOB multip issues Time Seen by Provider: 02/02/24 12:29 Source: patient Mode of arrival: ambulatory Limitations: no limitations History of Present Illness ED Provider: AMY LAWSON PA-C HPI Narrative: 74 year old female with pmhx significant for asthma, COPD, OTILIO, HTN, melanoma presents to the ED for evaluation of headache, bilateral ear pain (R>L), sore throat, fevers (TMAX 100.5F), productive cough and chest discomfort x3 days. Cough is productive of green/yellow sputum. Taking Tylenol at home, last dose around 0800 this morning. Using her albuterol inhaler at home with minimal relief. Admits granddaughter at home is ill with the flu. Related Data Home Medications ?Medication ?Instructions ?Recorded ?Confirmed aspirin 81 mg chewable tablet 1 tab PO DAILY 03/09/20 12/23/23 diltiazem HCl 240 mg 240 mg PO DAILY 03/09/20 12/23/23 capsule,extended release 24 hr lisinopril 40 mg tablet 40 mg PO DAILY 03/09/20 12/23/23 nebulizers 07/15/23 12/23/23 cholecalciferol (vitamin D3) 50 50 mcg PO DAILY 09/18/23 12/23/23 mcg (2,000 unit) capsule (Vitamin D3) acetaminophen 650 mg 650 mg PO Q6H PRN pain or fever 10/08/23 12/23/23 tablet,extended release alendronate 70 mg tablet 70 mg PO QWEEK 10/08/23 12/23/23 hydrochlorothiazide 25 mg tablet 25 mg PO DAILY 10/08/23 12/23/23 metformin 500 mg tablet 500 mg PO DAILY 10/08/23 12/23/23 naproxen 250 mg tablet 250 mg PO BID PRN mild pain 10/08/23 12/23/23 carvedilol 25 mg tablet 25 mg PO BID 12/11/23 12/23/23 prednisone 10 mg tablet 10 mg PO DAILY PRN 12/11/23 12/23/23 roflumilast 500 mcg tablet mcg PO 12/11/23 12/23/23 atorvastatin 10 mg tablet 10 mg PO DAILY 01/19/24 Previous Rx's ?Medication ?Instructions ?Recorded fluticasone furoate 200 1 ea PO DAILY #60 ea 07/15/23 mcg-vilanterol 25 mcg/dose inhalation powder (Breo Ellipta) montelukast 10 mg tablet 10 mg PO DAILY 30 days #30 tabs 07/15/23 albuterol sulfate 2.5 mg/3 mL 2.5 mg (3 mL) inhalation Q4H PRN 07/25/23 (0.083 %) solution for nebulization shortness of breath or wheezing 30 days #360 mL tiotropium bromide 2.5 2 puff inhalation DAILY 30 days #1 08/07/23 mcg/actuation mist for inhalation ea (Spiriva Respimat) albuterol sulfate 90 mcg/actuation 2 puff inhalation Q4-6H PRN 09/24/23 aerosol inhaler shortness of breath or wheezing #8.5 grams oxycodone 5 mg tablet 5 mg PO TID PRN pain #7 tabs 10/12/23 omeprazole 20 mg capsule,delayed 20 mg PO DAILY #30 caps 12/11/23 release budesonide-formoterol HFA 160 2 puff inhalation BID 30 days 01/19/24 mcg-4.5 mcg/actuation aerosol #10.2 grams inhaler cetirizine 10 mg tablet (Zyrtec) 10 mg PO DAILY 30 days #30 tabs 01/19/24 bisacodyl 5 mg tablet,delayed See Rx Instructions PO BEDTIME 30 01/27/24 release (Dulcolax (bisacodyl)) days #90 tabs docusate sodium 100 mg capsule 100 mg PO .BID WITH FOOD 30 days 01/27/24 #60 caps imipramine HCl 50 mg tablet 100 mg (2 x 50 mg) PO BEDTIME #60 01/27/24 tabs linaclotide 290 mcg capsule 290 mcg PO QAM #30 caps 01/27/24 (Linzess) ikjaxy-diihhqjb-zryejlt 1 cap PO QIDACHS 30 days #120 caps 01/27/24 24,000-76,000-120,000 unit capsule,delayed rel (Creon) cefuroxime axetil 500 mg tablet 500 mg PO BID 7 days #14 tabs 02/02/24 doxycycline hyclate 100 mg tablet 100 mg PO BID 7 days #14 tabs 02/02/24 prednisone 20 mg tablet 60 mg (3 x 20 mg) PO DAILY 4 days 02/02/24 #12 tabs prednisone 20 mg tablet 60 mg (3 x 20 mg) PO DAILY 5 days 02/02/24 #15 tabs Allergies Allergy/AdvReac Type Severity Reaction Status Date / Time morphine [MORPHINE] Allergy Intermediate NAUSEA, Verified 02/02/24 10:01 rash, redness Review of Systems 2 Review of Systems: Constitutional: No chills, fatigue, night sweats, weight changes, +fever ENT/Mouth: No ear pain, hearing loss, nasal congestion, sinus pain, rhinorrhea, sore throat Eyes: No eye pain, swelling, redness, vision changes, discharge Cardio: No chest pain, palpitations, CARLSON, orthopnea, peripheral edema Pulm: No SOB, cough, sputum, wheezing, dyspnea, hemoptysis, +productive cough GI: No nausea, vomiting, hematemesis, abdominal pain, diarrhea, constipation, hematochezia, melena : No irregular bleeding, dysuria, frequency, urgency, hesitancy, hematuria, flank pain, urinary flow changes, urinary incontinence or retention MSK: No back pain, neck pain, joint pain, myalgias Skin: No lesions, rashes Neuro: No weakness, numbness, paresthesias, LOC, dizziness, +headache Psych: No anxiety/panic, depression, SI/HI, AH/VH All other systems reviewed and are negative. [facility] Past Medical History Attestation statement: The following information was validated with the patient. Source: old records reviewed and nursing notes reviewed Medical History Atelectasis of left lung Chronic pain syndrome 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 Sacroiliitis Disc degeneration, lumbar OTILIO (obstructive sleep apnea) Back pain HTN (hypertension) Skin cancer (melanoma) GERD (gastroesophageal reflux disease) Depression OTILIO (obstructive sleep apnea) Kidney stones Pulmonary nodule Severe asthma Primary osteoarthritis involving multiple joints Pneumonia Chronic allergic rhinitis (~03/09/20) Asthma-COPD overlap syndrome Surgical History History of bronchoscopy History of cystoscopy History of laparoscopic appendectomy History of nasal surgery Hx of section Hx of tubal ligation Hx of colonoscopy History of esophagogastroduodenoscopy (EGD) Hx of knee surgery Family History Family History Father No problems noted. Mother No problems noted. Social History Social History Household Members: Children Housing: Apartment Do you presently have visiting nurse or other home services: Yes ([employer] 02/12) Alcohol intake: never Patient Tobacco Use Status: Never used Tobacco Second Hand Smoke Exposure: No Advance Directives: No Advance Directives Information Provided: No service: No Current occupational status: disabled Current occupation: rt handed Physical Exam 2 Vital Signs: Vital Signs: Last Vital Signs Temp 97.9 F 02/02/24 09:57 Pulse 104 H 02/02/24 14:10 Resp 20 02/02/24 14:10 BP 153/87 H 02/02/24 09:57 Pulse Ox 93 02/02/24 09:57 O2 Del Method Room Air 02/02/24 09:57 BMI result Body Mass Index 34.4 Hypertensive to 153/87, satting 93% on room air. General: Well appearing, in no acute distress. Skin: Warm, dry, intact. No rashes or lesions. Head: Normocephalic, atraumatic. EENT: Hearing is intact b/l. Conjunctiva clear. PERRLA. EOM intact. Moist mucous membranes.? + no pain on manipulation the right nelli korina. No mastoid tenderness or protrusion of the auricle. Right EAC without erythema, edema or discharge. Right TM intact, erythematous and bulging. No effusion. Neck: Supple without LAD? Cardiac: Chest wall symmetric. RRR Lungs: No increased effort of breathing. No tripoding. Bronchospastic cough and audible wheezing. Diffuse expiratory wheezes. Abdomen: Soft, non-tender, non-distended Back: No midline spinous or paraspinal tenderness. No step off deformity. Ext: Upper and lower extremities atraumatic, without tenderness, deformity, swelling or erythema. Full ROM throughout. Neuro: AOx3. Normal speech. Ambulating with steady gait. Psych: Appropriate mood and affect. Responds appropriately to questions. Course Course Course Narrative: 1315 -- CBC without leukocytosis or left shift. No anemia. H&H stable. Chemistry without acute electrolyte abnormality requiring intervention. No FADIA. Normal liver function. Initial troponin undetectable. EKG showing normal sinus rhythm with a rate of 90 beats per minute, QT 388, QTC 474, no acute ischemic changes or ST elevations. Patient has tested negative for COVID, strep, flu. She was tested positive for RSV. > Solu-Medrol and ED bronch protocol ordered. Will continue to re-evaluate. 1510 -- on re-evaluation, patient reports some improvement in breathing. Still with diffuse wheezes. IV magnesium ordered. Will re-evaluate. 1721 -- lungs clear to auscultation on re-evaluation. Patient reports significant improvement in breathing after receiving IV magnesium. States she would like to go home. Patient continues to sat around 93-95% on room air which appears to be around her baseline. No increased effort of breathing. Continues to cough on exam. > chest x-ray shows mild increase in patchy density in the right inferior hilar region and retrocardiac region. ?atelectasis versus infection. This may be secondary to current RSV infection however given history of COPD with purulent sputum, will send antibiotics to pharmacy for treatment. > prednisone sent to pharmacy. > Patient has remained stable throughout ED visit today. Discussed worrisome signs and symptoms and when to return to the ED. All questions answered at this time. Patient is agreeable with disposition and stable for discharge. Medications Administered Discontinued Medications Generic Name Dose Route Start Last Admin Trade Name Freq PRN Reason Stop Dose Admin Acetaminophen 975 mg 02/02/24 13:17 02/02/24 13:40 Acetaminophen 325 Mg Tablet PO 02/02/24 13:18 975 mg ONCE ONE Administration Albuterol Sulfate 2.5 mg/ 5 mg 02/02/24 14:10 02/02/24 14:13 Albuterol Sulfate 2.5 mg INHALE 02/02/24 14:11 5 mg ONCE ONE Administration Albuterol Sulfate 5 mg/ 0 mg 02/02/24 13:47 02/02/24 13:51 Albuterol/Ipratropium 3 ml INHALE 02/02/24 13:48 7.5 each ONCE ONE Administration Magnesium Sulfate 2 gm in 50 mls @ 150 mls/hr 02/02/24 15:01 02/02/24 16:06 Magnesium Sulfate/H2o IV 02/02/24 15:20 Infused ONCE ONE Infusion Methylprednisolone Sodium Succinate 60 mg 02/02/24 13:17 02/02/24 13:39 Methylprednisolone Sod Succ 125 Mg/2 Ml Vial IM 02/02/24 13:18 60 mg ONCE ONE Administration Medical Decision Making Medical Decision Making [facility] Narrative: 74 year old female with pmhx significant for asthma, COPD, OTILIO, HTN, melanoma presents to the ED for evaluation of headache, bilateral ear pain (R>L), sore throat, fevers (TMAX 100.5F), productive cough and chest discomfort x3 days. Patient hypertensive. Afebrile. Satting 93% on room air. No increased effort of breathing. No accessory muscle use. No tripoding. Bronchospastic cough and audible wheezes. Diffuse expiratory wheezes on auscultation. no pain on manipulation the right auricle. No mastoid tenderness or protrusion of the auricle. Right EAC without erythema, edema or discharge. Right TM intact, erythematous and bulging. No effusion. Differential diagnosis includes asthma/COPD exacerbation, pneumonia, viral syndrome, bronchitis. I also have suspicion for otitis media versus otitis externa. Plan for basic labs, viral serology, chest x-ray, ED bronch protocol, Solu- Medrol, re-evaluation. Differential Diagnosis Differential Diagnoses: The differential diagnosis associated with the presentation includes as above. Admission/Observation Consideration of admission/observation: Escalation of care including admission/observation considered Admission considered on presentation Lab Data [facility] Lab Attestation statement: I reviewed the patient's lab results. As above 02/02/24 10:15 02/02/24 10:15 Labs: Lab Results 02/02/24 Range/Units 10:15 WBC 7.2 (4.8-10.8) X10*3/uL RBC 4.65 (4.20-5.50) X10*6/uL Hgb 14.2 (12.0-16.0) g/dl Hct 42.2 (37.0-47.0) % MCV 90.8 (80.0-98.0) fL MCH 30.5 (27.0-33.0) pg MCHC 33.6 (31.0-35.0) g/dl RDW 12.2 (11.0-16.0) % Plt Count 271 (160-400) X10*3/uL MPV 10.3 (9.4-12.3) fL Immature Gran % (Auto) 0.3 (0.0-0.4) % Neut % (Auto) 66.3 (45-73) % Lymph % (Auto) 15.5 L (20-40) % [place] % (Auto) 10.7 (2-11) % Eos % (Auto) 6.4 H (0-4) % Baso % (Auto) 0.8 (0-2) % Lymph # (Auto) 1.1 L (1.2-4.9) X10*3/uL [place] # (Auto) 0.8 (0.1-1.2) X10*3/uL Eos # (Auto) 0.5 H (0.0-0.4) X10*3/uL Baso # (Auto) 0.1 (0.0-0.2) X10*3/uL Abs Immat Gran (auto) 0.02 (0.00-0.03) X10*3/uL Absolute Neuts (auto) 4.8 (2.0-8.3) x10*3/uL Absolute Nucleated RBC 0.000 (0.0-0.012) X10*3/uL Nucleated RBC % (auto) 0.0 (0.0-0.2) /100WBC Sodium 140 (135-145) mmol/L Potassium 3.8 (3.3-5.1) mmol/L Chloride 109 H (96-108) mmol/L Carbon Dioxide 23 (22-29) mmol/L Anion Gap 12 (12-20) BUN 10 (9-16) mg/dL Creatinine 0.70 (0.5-1.4) mg/dL Estim Creat Clear Calc 73.1 Estimated GFR > 60 Random Glucose 107 (60-115) mg/dL Calcium 9.7 (8.4-10.2) mg/dL Magnesium 1.8 (1.6-2.6) mg/dL Total Bilirubin 1.4 H (0.0-1.0) mg/dL AST 14 (5-31) U/L ALT 14 (0-31) U/L Alkaline Phosphatase 80 (39-117) U/L Troponin I High Sens < 2.7 (<3.5-17.0) ng/L Total Protein 7.6 (6.5-8.0) g/dL Albumin 4.1 (3.5-5.0) g/dL Influenza Type A (PCR) NEGATIVE (Negative) Influenza Type B (PCR) NEGATIVE (Negative) RSV RNA Qual (PCR) POSITIVE A (Negative) SARS-CoV-2 RNA (RT-PCR) NEGATIVE (Negative) S. pyogenes GrpA CRISTAL Negative (Negative) Independent Interpretation I performed an independent interpretation of an: Plain X-Ray Interpretation: Chest x-ray showing patchy density within right hilar region, agree with radiologist's interpretation. Radiology Impression Discussion of test interpretation with radiology: I have reviewed the radiologist's reading. Radiologist Impression: EXAMINATION: XR CHEST CLINICAL INFORMATION: Cough COMPARISON: 10/08/2023 TECHNIQUE: Frontal view of the chest was obtained. FINDINGS: Heart size within normal limits. There is no evidence of CHF. There is some mild increase in patchy density in the right inferior hilar region as well as in the retrocardiac region. No pleural effusions are seen. No suspicious lung masses. The bony thorax is unremarkable. XR/XR chest 1V IMPRESSION: Mild increase in patchy density in the right inferior hilar region and retrocardiac region. Differential diagnosis would include atelectasis versus infection. Electronically signed by: Miguel Angel Sánchez MD 02/02/2024 01:44 PM EDT RP Independent Historian Clinical information obtained from an independent historian. History obtained from or confirmed by: Spouse () External Record Review External record reviewed: Inpatient record, Office record, Outpatient record, Prior outpatient labs, Prior outpatient radiology, Primary care record and Outside ED record Prescription Management I considered prescription management with: Antibiotic (Ceftin, doxy) and Other (Prednisone) Chronic Conditions Patient?s care impacted by: Hypertension and Other (COPD, asthma) Social Determinants Patient?s care significantly limited by Social Determinants of Health including: Other Social Determinant of Health Critical Care Time Critical Care Time Critical Care Time: Yes Total Critical Care Time: 32 Attestation: Critical care time in the amount of 32 minutes has been provided to the patient in terms of direct patient care, frequent reevaluation, review and interpretation of medical data and results, and management of potentially life- threatening conditions. This is all outside of any medical procedures. Discharge Plan Discharge Clinical Impression: Respiratory syncytial virus (RSV), Acute right otitis media, Acute exacerbation of COPD with asthma Patient Disposition: Home, Self-Care Instructions: COPD (Chronic Obstructive Pulmonary Disease) (ED) Additional Instructions: You were evaluated in the ED today for cough, fevers and shortness of breath. You tested negative for COVID, flu. You tested positive for RSV. You also have a middle ear infection of your right ear. Your chest x-ray shows findings consistent with an early pneumonia. You were treated with steroids and breathing treatments in the ED today with improvement. As discussed treatment for RSV is symptomatic. Antibiotics have been sent to your pharmacy to treat for COPD exacerbation and right ear infection. Prednisone as a steroid that has been sent to your pharmacy to help with your breathing. You received a dose of this in the ED today. Please take your next dose tomorrow. As discussed, return with new or worsening symptoms. In the case of an emergency call 911. You can purchase a pulse oximeter from your local pharmacy or grocery store, and monitor your oxygen saturation if it goes below 90% you should return to the emergency department for further evaluation. Prescriptions: New prednisone 20 mg tablet 60 mg PO DAILY 5 Days Qty: 15 0RF cefuroxime axetil 500 mg tablet 500 mg PO BID 7 Days Qty: 14 0RF doxycycline hyclate 100 mg tablet 100 mg PO BID 7 Days Qty: 14 0RF prednisone 20 mg tablet 60 mg PO DAILY 4 Days Qty: 12 0RF No Action albuterol sulfate 2.5 mg /3 mL (0.083 %) solution for nebulization 2.5 mg inhalation Q4H PRN (Reason: shortness of breath or wheezing) 30 Days Qty: 360 11RF Spiriva Respimat 2.5 mcg/actuation mist 2 puff inhalation DAILY 30 Days Qty: 1 11RF albuterol sulfate 90 mcg/actuation HFA aerosol inhaler 2 puff inhalation Q4-6H PRN (Reason: shortness of breath or wheezing) Qty: 8.5 0RF metformin 500 mg tablet 500 mg PO DAILY alendronate 70 mg tablet 70 mg PO QWEEK Rx Instructions: per patient friday or friday naproxen 250 mg tablet 250 mg PO BID PRN (Reason: mild pain) hydrochlorothiazide 25 mg tablet 25 mg PO DAILY acetaminophen 650 mg tablet extended release 650 mg PO Q6H PRN (Reason: pain or fever) oxycodone 5 mg tablet 5 mg PO TID PRN (Reason: pain) Qty: 7 0RF Rx Instructions: Partial Fill upon patient request. lisinopril 40 mg tablet 40 mg PO DAILY aspirin 81 mg tablet,chewable 1 tab PO DAILY diltiazem HCl 240 mg capsule,extended release 24hr 240 mg PO DAILY (DME) nebulizers Misc See Rx Instructions .Route Rx Instructions: As directed fluticasone furoate-vilanterol [Breo Ellipta] 200-25 mcg/dose blister with device 1 ea PO DAILY Qty: 60 11RF montelukast 10 mg tablet 10 mg PO DAILY 30 Days Qty: 30 11RF atorvastatin 10 mg tablet 10 mg PO DAILY budesonide-formoterol 160-4.5 mcg/actuation HFA aerosol inhaler 2 puff inhalation BID 30 Days Qty: 10.2 11RF cetirizine [Zyrtec] 10 mg tablet 10 mg PO DAILY 30 Days Qty: 30 7RF cholecalciferol (vitamin D3) [Vitamin D3] 50 mcg (2,000 unit) capsule 50 mcg PO DAILY roflumilast 500 mcg tablet PO prednisone 10 mg tablet 10 mg PO DAILY PRN carvedilol 25 mg tablet 25 mg PO BID omeprazole 20 mg capsule,delayed release(DR/EC) 20 mg PO DAILY Qty: 30 6RF bisacodyl [Dulcolax (bisacodyl)] 5 mg tablet,delayed release (DR/EC) See Rx Instructions PO BEDTIME 30 Days Qty: 90 6RF Rx Instructions: 2 tabs qhs adn 1 tab qam orally bedtime; docusate sodium 100 mg capsule 100 mg PO .BID WITH FOOD 30 Days Qty: 60 6RF Linzess 290 mcg capsule 290 mcg PO QAM Qty: 30 6RF Creon 24,000-76,000 -120,000 unit capsule,delayed release(DR/EC) 1 cap PO QIDACHS 30 Days Qty: 120 6RF Rx Instructions: administer with meals and/or snacks imipramine HCl 50 mg tablet 100 mg PO BEDTIME Qty: 60 6RF Referrals: Mary Flores MD [Primary Care Provider] - Print Language: Georgian
[2024-02-02] MEDS: Magnesium Sulfate/H2O 2 GM/50 ML PIGGYBACK IV (15:46)
[2024-02-02 15:50] LABS: Magnesium 1.8 mg/dL (1.6-2.6)
[2024-02-02 17:46] VITALS: BP 00/00; PULSE 104; RESP 20; TEMP 37.2
== END 2024-02-02 17:47 | disposition home or self-care (01) ==
PROVIDERS: Physician Assistant Medical; Emergency Provider Emergency Medicine Emergency Medical Services; PCP General Practice
DX: H65.191 Other acute nonsuppurative otitis media, right ear (principal); B97.4 Respiratory syncytial virus as the cause of diseases classified elsewhere; J44.1 Chronic obstructive pulmonary disease with (acute) exacerbation; R51.9 Headache, unspecified; R50.9 Fever, unspecified; R05.9 Cough, unspecified; H92.03 Otalgia, bilateral; J02.9 Acute pharyngitis, unspecified; I10 Essential (primary) hypertension; Z79.899 Other long term (current) drug therapy; Z03.818 Encounter for observation for suspected exposure to other biological agents ruled out
CPT/HCPCS: 0241U; 71045; 80053; 83735; 84484; 85025; 87651; 93005; 94640; 96365; 96372; 99284; J2919; J3475

== ENCOUNTER 2024-02-04 10:49 | Inpatient (IN) | payer OTHER, SELFPAY ==
[2024-02-04] VITALS (9 sets, daily range): BP systolic 149–172; BP diastolic 80–86; PULSE 77–127; RESP 13–28; TEMP 36.6–36.9; O2SAT 95–97; BMI 34.9
--- NOTE | ~2024-02-04 | XR_ITS ---
EXAMINATION: XR CHEST CLINICAL INFORMATION: CHEST PAIN COMPARISON: Chest radiograph 02/02/2024 TECHNIQUE: PA and lateral views of the chest were obtained. FINDINGS: The lungs are adequately expanded. Right lower lobe hazy opacities, increased from prior. No significant pleural effusion, pulmonary edema or pneumothorax. The cardiomediastinal silhouette is within normal limits for technique and unchanged. Aortic arch calcifications again seen. No acute osseous abnormality. XR/XR chest 2V IMPRESSION: Right lower lobe hazy opacities are increased from prior, and likely represent developing infectious/inflammatory process and/or atelectasis. Electronically signed by: Zohreh Ford DO 02/04/2024 12:45 PM EDT RP
--- NOTE | 2024-02-04 10:54 | ECG_ITS ---
Test Reason : CHEST PAIN Blood Pressure : / mmHG Vent. Rate : 097 BPM Atrial Rate : 097 BPM P-R Int : 122 ms QRS Dur : 128 ms QT Int : 396 ms P-R-T Axes : 054 002 021 degrees QTc Int : 502 ms Normal sinus rhythm Right bundle branch block Abnormal ECG When compared with ECG of 02-FEB-2024 10:02, QT has lengthened Referred By: Generic ED Physician Electronically Signed By:GENNA PALOMO
--- NOTE | 2024-02-04 11:04 | ED.SOB ---
HPI - SOB/Dyspnea General Chief Complaint: Upper Respiratory Symptoms Stated Complaint: [id number] Time Seen by Provider: 02/04/24 17:14 Source: patient Limitations: language barrier History of Present Illness ED Provider: Rachael Sam PA-C HPI Narrative: 74-year-old female with a history of asthma, COPD, OTILIO, HTN, melanoma, presenting to the ED with worsening cough and cold symptoms. Patient states she has had symptoms for a week, she was seen in the emergency department on February 01, she was diagnosed with RSV. She was discharged home on a steroid taper and antibiotics. She was also noted to have acute otitis media at that time. Patient states she had a pulse oximeter at home, though her oxygen would randomly drop into the 80s at rest. In addition, patient has developed a productive cough, expelling yellow, blood-tinged sputum. Denies known fever. Associated fatigue, malaise. Patient was 92% on room air at triage, she does not use supplemental oxygen at home. Related Data Home Medications ?Medication ?Instructions ?Recorded ?Confirmed aspirin 81 mg chewable tablet 1 tab PO DAILY 03/09/20 12/23/23 diltiazem HCl 240 mg 240 mg PO DAILY 03/09/20 12/23/23 capsule,extended release 24 hr lisinopril 40 mg tablet 40 mg PO DAILY 03/09/20 12/23/23 nebulizers 07/15/23 12/23/23 cholecalciferol (vitamin D3) 50 50 mcg PO DAILY 09/18/23 12/23/23 mcg (2,000 unit) capsule (Vitamin D3) acetaminophen 650 mg 650 mg PO Q6H PRN pain or fever 10/08/23 12/23/23 tablet,extended release alendronate 70 mg tablet 70 mg PO QWEEK 10/08/23 12/23/23 hydrochlorothiazide 25 mg tablet 25 mg PO DAILY 10/08/23 12/23/23 metformin 500 mg tablet 500 mg PO DAILY 10/08/23 12/23/23 naproxen 250 mg tablet 250 mg PO BID PRN mild pain 10/08/23 12/23/23 carvedilol 25 mg tablet 25 mg PO BID 12/11/23 12/23/23 prednisone 10 mg tablet 10 mg PO DAILY PRN 12/11/23 12/23/23 roflumilast 500 mcg tablet mcg PO 12/11/23 12/23/23 atorvastatin 10 mg tablet 10 mg PO DAILY 01/19/24 Previous Rx's ?Medication ?Instructions ?Recorded fluticasone furoate 200 1 ea PO DAILY #60 ea 07/15/23 mcg-vilanterol 25 mcg/dose inhalation powder (Breo Ellipta) montelukast 10 mg tablet 10 mg PO DAILY 30 days #30 tabs 07/15/23 albuterol sulfate 2.5 mg/3 mL 2.5 mg (3 mL) inhalation Q4H PRN 07/25/23 (0.083 %) solution for nebulization shortness of breath or wheezing 30 days #360 mL tiotropium bromide 2.5 2 puff inhalation DAILY 30 days #1 08/07/23 mcg/actuation mist for inhalation ea (Spiriva Respimat) albuterol sulfate 90 mcg/actuation 2 puff inhalation Q4-6H PRN 09/24/23 aerosol inhaler shortness of breath or wheezing #8.5 grams oxycodone 5 mg tablet 5 mg PO TID PRN pain #7 tabs 10/12/23 omeprazole 20 mg capsule,delayed 20 mg PO DAILY #30 caps 12/11/23 release budesonide-formoterol HFA 160 2 puff inhalation BID 30 days 01/19/24 mcg-4.5 mcg/actuation aerosol #10.2 grams inhaler cetirizine 10 mg tablet (Zyrtec) 10 mg PO DAILY 30 days #30 tabs 01/19/24 bisacodyl 5 mg tablet,delayed See Rx Instructions PO BEDTIME 30 01/27/24 release (Dulcolax (bisacodyl)) days #90 tabs docusate sodium 100 mg capsule 100 mg PO .BID WITH FOOD 30 days 01/27/24 #60 caps imipramine HCl 50 mg tablet 100 mg (2 x 50 mg) PO BEDTIME #60 01/27/24 tabs linaclotide 290 mcg capsule 290 mcg PO QAM #30 caps 01/27/24 (Linzess) [id number] 1 cap PO QIDACHS 30 days #120 caps 01/27/24 24,000-76,000-120,000 unit capsule,delayed rel (Creon) cefuroxime axetil 500 mg tablet 500 mg PO BID 7 days #14 tabs 02/02/24 doxycycline hyclate 100 mg tablet 100 mg PO BID 7 days #14 tabs 02/02/24 prednisone 20 mg tablet 60 mg (3 x 20 mg) PO DAILY 4 days 02/02/24 #12 tabs prednisone 20 mg tablet 60 mg (3 x 20 mg) PO DAILY 5 days 02/02/24 #15 tabs Allergies Allergy/AdvReac Type Severity Reaction Status Date / Time morphine [MORPHINE] Allergy Intermediate NAUSEA, Verified 02/04/24 11:07 rash, redness Review of Systems Review of Systems: Yes all other systems are reviewed and are negative Constitutional: Constitutional: Reports fatigue, Denies fever(s) and Reports malaise Cardiovascular: Cardiovascular: Denies chest pain and Reports dyspnea Respiratory: Respiratory: Reports change in phlegm color, Reports chest congestion, Reports cough, Reports dyspnea and Reports wheezing Gastrointestinal: Gastrointestinal: Denies abdominal pain and Denies vomiting Endocrine: Endocrine: Reports fatigue Allergic/Immunologic: Allergic/Immunologic: Reports wheezing PMFSH Past Medical History Attestation statement: The following information was validated with the patient. Medical History Atelectasis of left lung Chronic pain syndrome 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 Sacroiliitis Disc degeneration, lumbar OTILIO (obstructive sleep apnea) Back pain HTN (hypertension) Skin cancer (melanoma) GERD (gastroesophageal reflux disease) Depression OTILIO (obstructive sleep apnea) Kidney stones Pulmonary nodule Severe asthma Primary osteoarthritis involving multiple joints Pneumonia Chronic allergic rhinitis (~03/09/20) Asthma-COPD overlap syndrome Surgical History History of bronchoscopy History of cystoscopy History of laparoscopic appendectomy History of nasal surgery Hx of section Hx of tubal ligation Hx of colonoscopy History of esophagogastroduodenoscopy (EGD) Hx of knee surgery Family History Family History Father No problems noted. Mother No problems noted. Social History Social History Household Members: Children Housing: Apartment Do you presently have visiting nurse or other home services: Yes (health care administrator's 02/12) Alcohol intake: never Patient Tobacco Use Status: Never used Tobacco Smoked in Last 30 Days: No Second Hand Smoke Exposure: No Use of substances other than those prescribed or required for medical reasons: No Advance Directives: Yes Advance Directives on File: Yes Advance Directives Date on File: 10/13/23 Do you have a plan to hurt others: No Plan service: No Current occupational status: disabled Current occupation: rt handed Physical Exam Vital Signs: Vital Signs: Last Vital Signs Temp 98.1 F 02/04/24 17:09 Pulse 79 02/04/24 18:13 Resp 15 02/04/24 18:13 BP 167/80 H 02/04/24 18:13 Pulse Ox 96 02/04/24 18:13 O2 Del Method Room Air 02/04/24 18:13 BMI result Body Mass Index 34.9 Const: Other: Alert, overall well in appearance Orientation/consciousness: patient oriented x3 Resp: Other: Minimally tachypneic, active wheezing and wet cough. Diffuse expiratory wheezes noted posterior florez Cardio: Other: Normal peripheral perfusion Skin: Other: Warm dry no rash Neuro: General: patient oriented x3, no focal motor deficits and CN's II-XI intact bilaterally Psych: Other: Calm cooperative Course Course Course Narrative: This is a Rapid Medical Exam performed in triage by Shweta Monreal PA-C. Full HPI, ROS and PE to be performed by primary ED provider. 74 yo F pmhx significant for asthma, COPD, OTILIO, HTN, melanoma, presenting to the ED c/o worsening SOB w/hypoxia O2 dropping into 80's at rest, intermittent fevers, CP, dry cough, congestion x few days. Was recently seen and treated in our ED on 02/01 diagnosed RSV, acute otitis media, COPD/asthma exacerbation discharged on prednisone, Ceftin, doxycycline, prednisone without relief. [place] like she was going to last night per daughter. PE: Audible wheeze diminished lung sounds, satting 92% on RA Plan: EKG, labs, CXR, lactic/blood cultures Medications Administered Generic Name Dose Route Start Last Admin Trade Name Freq PRN Reason Stop Dose Admin Magnesium Sulfate 2 gm in 50 mls @ 25 mls/hr 02/04/24 17:25 02/04/24 18:12 Magnesium Sulfate/H2o IV 02/04/24 19:24 25 mls/hr ONCE ONE Administration Discontinued Medications Generic Name Dose Route Start Last Admin Trade Name Vanessa PRN Reason Stop Dose Admin Albuterol/Ipratropium 3 ml 02/04/24 15:55 02/04/24 15:59 Albuterol/Iprat 2.5/0.5mg 3 Ml Ampul.Neb INHALE 02/04/24 15:56 3 ml ONCE ONE Administration Ceftriaxone Sodium 2 gm/ 50 mls @ 100 mls/hr 02/04/24 17:35 02/04/24 18:12 Sodium Chloride IV 02/04/24 18:04 Infused ONCE ONE Infusion Methylprednisolone Sodium Succinate 125 mg 02/04/24 17:25 02/04/24 17:54 Methylprednisolone Sod Succ 125 Mg/2 Ml Vial IVPUSH 02/04/24 17:26 125 mg ONCE ONE Administration Medical Decision Making Medical Decision Making [facility] Narrative: 74-year-old female with a history of asthma, COPD, OTILIO, HTN, melanoma, presenting to the ED with worsening cough and cold symptoms. Patient states she has had symptoms for a week, she was seen in the emergency department on February 01, she was diagnosed with RSV. She was discharged home on a steroid taper and antibiotics. She was also noted to have acute otitis media at that time. Patient states she had a pulse oximeter at home, though her oxygen would randomly drop into the 80s at rest. In addition, patient has developed a productive cough, expelling yellow, blood-tinged sputum. Denies known fever. Associated fatigue, malaise. Patient was 92% on room air at triage, she does not use supplemental oxygen at home. Problem: Age, COPD, asthma, known RSV History: Per patient I have considered the following differential diagnoses: Viral syndrome, COPD/asthma exacerbation, pneumonia, bronchitis,, sepsis Plan: Patient is assessment started from [facility], screening labs including blood cultures and lactate, chest x-ray and EKG were obtained. Given new hypoxia, with progressing symptoms now developing a pneumonia, she should meet inpatient criteria for admission. To note, this is not sepsis, she is hemodynamically stable, she is not tachycardic, she is not hypotensive, she is not febrile at this time. However per our sepsis protocol, again, blood cultures and lactate obtained, we will be starting ceftriaxone and azithromycin. In addition, I am ordering an additional updraft for the patient with magnesium and Solu-Medrol. I have independently reviewed the following tests: Labs: Viral panel positive for RSV on February 01, Chest x-ray:XR CHEST CLINICAL INFORMATION: CHEST PAIN COMPARISON: Chest radiograph 02/02/2024 TECHNIQUE: PA and lateral views of the chest were obtained. FINDINGS: The lungs are adequately expanded. Right lower lobe hazy opacities, increased from prior. No significant pleural effusion, pulmonary edema or pneumothorax. The cardiomediastinal silhouette is within normal limits for technique and unchanged. Aortic arch calcifications again seen. No acute osseous abnormality. XR/XR chest 2V IMPRESSION: Right lower lobe hazy opacities are increased from prior, and likely represent developing infectious/inflammatory process and/or atelectasis. Electronically signed by: Zohreh Ford DO 02/04/2024 12:45 PM EDT RP EKG: Lab Data 02/04/24 12:20 02/04/24 12:20 Labs: Lab Results 02/04/24 Range/Units 12:20 WBC 6.9 (4.8-10.8) X10*3/uL RBC 4.37 (4.20-5.50) X10*6/uL Hgb 13.4 (12.0-16.0) g/dl Hct 39.2 (37.0-47.0) % MCV 89.7 (80.0-98.0) fL MCH 30.7 (27.0-33.0) pg MCHC 34.2 (31.0-35.0) g/dl RDW 12.4 (11.0-16.0) % Plt Count 323 (160-400) X10*3/uL MPV 10.6 (9.4-12.3) fL Immature Gran % (Auto) 0.4 (0.0-0.4) % Neut % (Auto) 81.6 H (45-73) % Lymph % (Auto) 11.8 L (20-40) % Real % (Auto) 6.1 (2-11) % Eos % (Auto) 0.0 (0-4) % Baso % (Auto) 0.1 (0-2) % Lymph # (Auto) 0.8 L (1.2-4.9) X10*3/uL Real # (Auto) 0.4 (0.1-1.2) X10*3/uL Eos # (Auto) 0.0 (0.0-0.4) X10*3/uL Baso # (Auto) 0.0 (0.0-0.2) X10*3/uL Abs Immat Gran (auto) 0.03 (0.00-0.03) X10*3/uL Absolute Neuts (auto) 5.7 (2.0-8.3) x10*3/uL Absolute Nucleated RBC 0.000 (0.0-0.012) X10*3/uL Nucleated RBC % (auto) 0.0 (0.0-0.2) /100WBC PT 12.2 (10.9-12.4) SEC INR 1.0 (0.9-1.1) Sodium 143 (135-145) mmol/L Potassium 3.7 (3.3-5.1) mmol/L Chloride 107 (96-108) mmol/L Carbon Dioxide 24 (22-29) mmol/L Anion Gap 16 (12-20) BUN 17 H (9-16) mg/dL Creatinine 0.74 (0.5-1.4) mg/dL Estim Creat Clear Calc 69.6 Estimated GFR > 60 Random Glucose 137 H (60-115) mg/dL Calcium 10.4 H D (8.4-10.2) mg/dL Magnesium 1.8 (1.6-2.6) mg/dL Total Bilirubin 0.6 (0.0-1.0) mg/dL Direct Bilirubin 0.2 (0.0-0.5) mg/dL AST 14 (5-31) U/L ALT 16 (0-31) U/L Alkaline Phosphatase 70 (39-117) U/L Troponin I High Sens 3.3 (<3.5-17.0) ng/L B-Natriuretic Peptide 33 (<100) pg/mL Total Protein 7.7 (6.5-8.0) g/dL Albumin 4.1 (3.5-5.0) g/dL Discharge Plan Discharge Clinical Impression: COPD exacerbation, COPD with hypoxia, Pneumonia, Respiratory syncytial virus (RSV) Patient Disposition: Admitted As Inpatient Prescriptions: No Action albuterol sulfate 2.5 mg /3 mL (0.083 %) solution for nebulization 2.5 mg inhalation Q4H PRN (Reason: shortness of breath or wheezing) 30 Days Qty: 360 11RF Spiriva Respimat 2.5 mcg/actuation mist 2 puff inhalation DAILY 30 Days Qty: 1 11RF albuterol sulfate 90 mcg/actuation HFA aerosol inhaler 2 puff inhalation Q4-6H PRN (Reason: shortness of breath or wheezing) Qty: 8.5 0RF metformin 500 mg tablet 500 mg PO DAILY alendronate 70 mg tablet 70 mg PO QWEEK Rx Instructions: per patient friday or friday naproxen 250 mg tablet 250 mg PO BID PRN (Reason: mild pain) hydrochlorothiazide 25 mg tablet 25 mg PO DAILY acetaminophen 650 mg tablet extended release 650 mg PO Q6H PRN (Reason: pain or fever) oxycodone 5 mg tablet 5 mg PO TID PRN (Reason: pain) Qty: 7 0RF Rx Instructions: Partial Fill upon patient request. prednisone 20 mg tablet 60 mg PO DAILY 5 Days Qty: 15 0RF cefuroxime axetil 500 mg tablet 500 mg PO BID 7 Days Qty: 14 0RF doxycycline hyclate 100 mg tablet 100 mg PO BID 7 Days Qty: 14 0RF prednisone 20 mg tablet 60 mg PO DAILY 4 Days Qty: 12 0RF lisinopril 40 mg tablet 40 mg PO DAILY aspirin 81 mg tablet,chewable 1 tab PO DAILY diltiazem HCl 240 mg capsule,extended release 24hr 240 mg PO DAILY (DME) nebulizers Misc See Rx Instructions .Route Rx Instructions: As directed fluticasone furoate-vilanterol [Breo Ellipta] 200-25 mcg/dose blister with device 1 ea PO DAILY Qty: 60 11RF montelukast 10 mg tablet 10 mg PO DAILY 30 Days Qty: 30 11RF atorvastatin 10 mg tablet 10 mg PO DAILY budesonide-formoterol 160-4.5 mcg/actuation HFA aerosol inhaler 2 puff inhalation BID 30 Days Qty: 10.2 11RF cetirizine [Zyrtec] 10 mg tablet 10 mg PO DAILY 30 Days Qty: 30 7RF cholecalciferol (vitamin D3) [Vitamin D3] 50 mcg (2,000 unit) capsule 50 mcg PO DAILY roflumilast 500 mcg tablet PO prednisone 10 mg tablet 10 mg PO DAILY PRN carvedilol 25 mg tablet 25 mg PO BID omeprazole 20 mg capsule,delayed release(DR/EC) 20 mg PO DAILY Qty: 30 6RF bisacodyl [Dulcolax (bisacodyl)] 5 mg tablet,delayed release (DR/EC) See Rx Instructions PO BEDTIME 30 Days Qty: 90 6RF Rx Instructions: 2 tabs qhs adn 1 tab qam orally bedtime; docusate sodium 100 mg capsule 100 mg PO .BID WITH FOOD 30 Days Qty: 60 6RF Linzess 290 mcg capsule 290 mcg PO QAM Qty: 30 6RF Creon 24,000-76,000 -120,000 unit capsule,delayed release(DR/EC) 1 cap PO QIDACHS 30 Days Qty: 120 6RF Rx Instructions: administer with meals and/or snacks imipramine HCl 50 mg tablet 100 mg PO BEDTIME Qty: 60 6RF Print Language: Guinean
[2024-02-04 12:25] LABS: MANUAL DIFF FLAG NO
[2024-02-04 12:27] LABS: Basophils Percent Auto 0.1 % (0-2); Hematocrit 39.2 % (37.0-47.0); Hemoglobin 13.4 g/dl (12.0-16.0); Imm Gran Abs Auto 0.03 X10*3/uL (0.00-0.03); Imm Gran Pct Auto 0.4 % (0.0-0.4); Lymphocytes Absolute Auto 0.8 X10*3/uL (1.2-4.9); Lymphocytes Percent Auto 11.8 % (20-40); Mean Corpuscular HGB Conc 34.2 g/dl (31.0-35.0); Mean Corpuscular Hemoglobin 30.7 pg (27.0-33.0); Mean Corpuscular Volume 89.7 fL (80.0-98.0); Mean Platelet Volume 10.6 fL (9.4-12.3); Monocytes Absolute Auto 0.4 X10*3/uL (0.1-1.2); Monocytes Percent Auto 6.1 % (2-11); Neutrophils Absolute Auto 5.7 x10*3/uL (2.0-8.3); Neutrophils Percent Auto 81.6 % (45-73); Platelet Count 323 X10*3/uL (160-400); Red Blood Count 4.37 X10*6/uL (4.20-5.50); Red Cell Distribution Width 12.4 % (11.0-16.0); White Blood Count 6.9 X10*3/uL (4.8-10.8)
[2024-02-04 12:33] LABS: Prothrombin Time 12.2 SEC (10.9-12.4)
[2024-02-04 12:42] LABS: Alanine Aminotransferase 16 U/L (0-31); Albumin Level 4.1 g/dL (3.5-5.0); Alkaline Phosphatase 70 U/L (39-117); Anion Gap 16 (12-20); Aspartate Amino Transferase 14 U/L (5-31); Bilirubin Direct 0.2 mg/dL (0.0-0.5); Bilirubin Total 0.6 mg/dL (0.0-1.0); Blood Urea Nitrogen 17 mg/dL (9-16); Calcium 10.4 mg/dL (8.4-10.2); Carbon Dioxide 24 mmol/L (22-29); Chloride 107 mmol/L (96-108); Creatinine Clr Calc Pharmacy 69.6; Estimated Glomerular Filt Rate > 60; Glucose Random 137 mg/dL (60-115); Magnesium 1.8 mg/dL (1.6-2.6); Potassium 3.7 mmol/L (3.3-5.1); Sodium 143 mmol/L (135-145); Total Protein 7.7 g/dL (6.5-8.0)
[2024-02-04 12:46] LABS: B Type Natriuretic Peptide 33 pg/mL (<100)
[2024-02-04 12:48] LABS: Troponin-I High Sensitivity 3.3 ng/L (<3.5-17.0)
[2024-02-04] MEDS: Albuterol/Iprat 2.5/0.5MG 3 ML AMPUL.NEB INHALE ×2 (15:59→19:06)
--- NOTE | 2024-02-04 17:11 | MHC.EDTECH ---
Patients guest arrives with food for patient. This tech explained they should hold off on eating or drinking anything until the RN or provider see's them. Expressed understanding.
[2024-02-04] MEDS: methylPREDNISolone Sod Succ 125 MG/2 ML VIAL IVPUSH (17:54)
[2024-02-04] MEDS: cefTRIAXone sodium 2 GM in 0.9 % Sodium Chloride 50 ML IV (17:56)
[2024-02-04] MEDS: Magnesium Sulfate/H2O 2 GM/50 ML PIGGYBACK IV (18:12)
[2024-02-04] MEDS: Albuterol Sulfate (0.083%) 2.5 MG/3 ML VIAL.NEB 7.5 MG INHALE (18:43)
[2024-02-04] MEDS: Azithromycin 500 MG in 0.9 % Sodium Chloride 250 ML 125 MG IV (18:43)
--- NOTE | 2024-02-04 19:03 | PM.IMHP ---
History of Present Illness Date of Service: 02/04/24 Chief Complaint: Shortness of breath 74 year old female with OTILIO, copd/asthma and other issues as listed below. She was seen in the ED 2 days earlier and diagnosed with RSV and bronchitisand discharged with Prednisone and doxycyline and cefuroximine. She continues to feels worse, she went to walkin clinic at the [facility] and again sent home. He hasnot been sleeping at night due to peristent cough,she called the clinic again today and advised to come to the ED. She reports O2 sat in the 80s at home. CXR shows developing infiltrate, wbc normal. Given ceftriaxone and Aithro. Oxgen saturation has been normal in the ED. Review of Systems Review of Systems: Gen: no fever Resp: + sob, + cough CV: no chest, no CARLSON, no leg edema GI: No n/v, no abd pain Neuro: No confusion [facility] Medical History Atelectasis of left lung Chronic pain syndrome 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 Sacroiliitis Disc degeneration, lumbar OTILIO (obstructive sleep apnea) Back pain HTN (hypertension) Skin cancer (melanoma) GERD (gastroesophageal reflux disease) Depression OTILIO (obstructive sleep apnea) Kidney stones Pulmonary nodule Severe asthma Primary osteoarthritis involving multiple joints Pneumonia Chronic allergic rhinitis (~03/09/20) Asthma-COPD overlap syndrome Family History Father No problems noted. Mother No problems noted. Surgical History History of bronchoscopy History of cystoscopy History of laparoscopic appendectomy History of nasal surgery Hx of section Hx of tubal ligation Hx of colonoscopy History of esophagogastroduodenoscopy (EGD) Hx of knee surgery Social History Household Members: Children Housing: Apartment Do you presently have visiting nurse or other home services: Yes (precipitator's 02/12) Alcohol intake: never Patient Tobacco Use Status: Never used Tobacco Smoked in Last 30 Days: No Second Hand Smoke Exposure: No Use of substances other than those prescribed or required for medical reasons: No Advance Directives: Yes Advance Directives on File: Yes Advance Directives Date on File: 10/13/23 Do you have a plan to hurt others: No Plan Nutrition Risks: No Nutritional Risk service: No Current occupational status: disabled Current occupation: rt handed Meds Allergies Allergy/AdvReac Type Severity Reaction Status Date / Time morphine [MORPHINE] Allergy Intermediate NAUSEA, Verified 02/04/24 11:07 rash, redness Active Medications: Current Medications Acetaminophen (Acetaminophen 325 Mg Tablet) 650 mg PO Q6H PRN PRN Reason: Pain, Mild (Pain Scale 1-3), fever or headache Albuterol Sulfate (Albuterol Sulfate (0.083%) 2.5 Mg/3 Ml Vial.Neb) 2.5 mg INHALE Q2H PRN PRN Reason: Shortness of Breath/Wheezing Albuterol/Ipratropium (Albuterol/Iprat 2.5/0.5mg 3 Ml Ampul.Neb) 3 ml INHALE RQ4H WHILE AWAKE URIAH Benzonatate (Benzonatate 100 Mg Capsule) 100 mg PO TID PRN PRN Reason: Cough Calcium Carbonate (Calcium Carbonate 750 Mg Tab.Chew) 750 mg PO Q4H PRN PRN Reason: Heartburn Enoxaparin Sodium (Enoxaparin Sodium 30 Mg/0.3 Ml Syringe) 30 mg SUBCUT Q24H URIAH Guaifenesin (Guaifenesin 100 Mg/5 Ml 5 Ml Liquid) 5 ml PO Q6H PRN PRN Reason: Cough Magnesium Sulfate (Magnesium Sulfate/H2o) 2 gm in 50 mls @ 25 mls/hr IV ONCE ONE Stop: 02/04/24 19:24 Last Infusion: 02/04/24 18:41 Dose: Infused Azithromycin 500 mg/ Sodium (Chloride) 250 mls @ 125 mls/hr IV ONCE ONE Stop: 02/04/24 19:32 Last Admin: 02/04/24 18:43 Dose: 125 mls/hr Magnesium Hydroxide (Milk Of Magnesia 30 Ml Oral.Susp) 30 ml PO DAILY PRN PRN Reason: Constipation Melatonin (Melatonin 3 Mg Tablet) 6 mg PO BEDTIME PRN PRN Reason: Insomnia Prednisone (Prednisone 20 Mg Tablet) 40 mg PO DAILY URIAH Sodium Chloride (0.9 % Sodium Chloride Flush 3 Ml Syringe) 3 ml IVFLUSH QSHIFT COUNT INCLUDES THE [facility] Home Medications ?Medication ?Instructions ?Recorded ?Confirmed ?Last Taken ?Type aspirin 81 mg chewable tablet 1 tab PO DAILY 03/09/20 02/04/24 02/04/24 History diltiazem HCl 240 mg 240 mg PO DAILY 03/09/20 02/04/24 02/04/24 History capsule,extended release 24 hr lisinopril 40 mg tablet 40 mg PO DAILY 03/09/20 02/04/24 02/04/24 History nebulizers 07/15/23 12/23/23 Unknown History cholecalciferol (vitamin D3) 50 50 mcg PO DAILY 09/18/23 02/04/24 02/04/24 History mcg (2,000 unit) capsule (Vitamin D3) acetaminophen 650 mg 650 mg PO Q6H PRN pain or fever 10/08/23 02/04/24 Unknown History tablet,extended release alendronate 70 mg tablet 70 mg PO MO 10/08/23 02/04/24 02/02/24 History hydrochlorothiazide 25 mg tablet 25 mg PO DAILY 10/08/23 02/04/24 02/04/24 History metformin 500 mg tablet 500 mg PO DAILY 10/08/23 02/04/24 02/04/24 History carvedilol 25 mg tablet 25 mg PO BID 12/11/23 02/04/24 02/04/24 History roflumilast 500 mcg tablet 500 mcg PO DAILY 12/11/23 02/04/24 02/04/24 History atorvastatin 10 mg tablet 10 mg PO DAILY 01/19/24 02/04/24 02/04/24 History albuterol sulfate 90 mcg/actuation 2 puff inhalation Q4H PRN 02/04/24 02/04/24 Unknown History aerosol inhaler shortness of breath or wheezing bisacodyl 5 mg tablet,delayed 10 mg PO BEDTIME 02/04/24 02/04/24 02/03/24 History release (Dulcolax (bisacodyl)) Physical Exam Vital Signs and Narrative: Vital Signs: Last Vital Signs Temp 98.1 F 02/04/24 17:09 Pulse 77 02/04/24 18:44 Resp 15 02/04/24 18:44 BP 167/80 H 02/04/24 18:13 Pulse Ox 96 02/04/24 18:13 O2 Del Method Room Air 02/04/24 18:13 BMI result Body Mass Index 34.9 Const: Other: General: AO X 3, no acute distress Resp: cristobal wheezes, normal effort CVS: S1,S2,RRR GI: +BS, NT, no distention Skin: No rash Neuro: motor grossly intact Psych: appropriate affect Results Labs 02/04/24 12:20 02/04/24 12:20 Labs: Laboratory Results - last 24 hr 02/04/24 12:20 MCV 89.7 MCH 30.7 MCHC 34.2 RDW 12.4 Plt Count 323 MPV 10.6 Immature Gran % (Auto) 0.4 Neut % (Auto) 81.6 H Lymph % (Auto) 11.8 L [place] % (Auto) 6.1 Eos % (Auto) 0.0 Baso % (Auto) 0.1 Lymph # (Auto) 0.8 L [place] # (Auto) 0.4 Eos # (Auto) 0.0 Baso # (Auto) 0.0 Abs Immat Gran (auto) 0.03 Absolute Neuts (auto) 5.7 Absolute Nucleated RBC 0.000 Nucleated RBC % (auto) 0.0 PT 12.2 INR 1.0 Anion Gap 16 Estim Creat Clear Calc 69.6 Estimated GFR > 60 Random Glucose 137 H Calcium 10.4 H D Magnesium 1.8 Total Bilirubin 0.6 Direct Bilirubin 0.2 AST 14 ALT 16 Alkaline Phosphatase 70 Troponin I High Sens 3.3 B-Natriuretic Peptide 33 Total Protein 7.7 Albumin 4.1 Imaging Radiologist's Impressions: Impressions Chest X-Ray 02/04/24 11:40 IMPRESSION: Right lower lobe hazy opacities are increased from prior, and likely represent developing infectious/inflammatory process and/or atelectasis. Electronically signed by: Zohreh Ford DO 02/04/2024 12:45 PM EDT RP Assessment and Plan (1) Respiratory syncytial virus (RSV): Status: Acute Plan 74/F with dyspnea d/t RSV and now PNA RSV bronchitis CAP Copd exacerbation Cough -Ceftriaxone and Azithro for PNA, next doses tomorrow -Bronchodilators by Neb -Prednisone -robitussin and tessalon -O2 PRN HTN--resume meds following med rec HLD -lipitor Diabetes -SSI Pancreatic insuficiency -replacement therapy GERD--PPI mood d/o dvt prophylaxis--lovenox full code Quality Stroke Does the patient have a stroke diagnosis?: No VTE Prior VTE?: No VTE Risk Level:: Medical - moderate - high VTE Device Contraindication: N/A - Device Ordered VTE Drug Contraindication: N/A - Med Ordered
--- NOTE | 2024-02-04 19:10 | PC.NURSE ---
report received from Abi LOPEZ, assume care of pt at this time
--- NOTE | 2024-02-04 21:13 | PHA.MEDREC ---
Pharmacy Consult ? Medication Reconciliation Pharmacy has completed the medication reconciliation. Spoke to patient via [employer] consultant and confirmed medication list. Patient verified she is using Symbicort, Breo, Spiriva and Albuterol. She takes her alendronate on mondays.
[2024-02-04 21:37] LABS: Glucose, Whole Blood 259 mg/dL (60-115)
[2024-02-04] MEDS: Insulin Lispro 100 UNIT/ML 3 ML VIAL SUBCUT (22:07)
[2024-02-04] MEDS: Enoxaparin Sodium 40 MG/0.4 ML SYRINGE SUBCUT (22:07)
[2024-02-04] MEDS: Melatonin 3 MG TABLET 6 MG PO (22:12)
[2024-02-04] MEDS: Benzonatate 100 MG CAPSULE PO (22:12)
[2024-02-04] MEDS: Acetaminophen 325 MG TABLET 650 MG PO (22:12)
[2024-02-04] MEDS: guaiFENesin 100 MG/5 ML 5 ML LIQUID PO (22:37)
[2024-02-05] VITALS (13 sets, daily range): BP systolic 120–142; BP diastolic 61–75; PULSE 65–85; RESP 16–20; TEMP 36.5; O2SAT 93–96
--- NOTE | 2024-02-05 06:34 | PC.NURSE ---
explained to pt and family member about RSV, and the need to wear a mask, while in her room
[2024-02-05 07:25] LABS: Glucose, Whole Blood 135 mg/dL (60-115)
[2024-02-05] MEDS: Albuterol/Iprat 2.5/0.5MG 3 ML AMPUL.NEB INHALE ×4 (07:30→19:44)
[2024-02-05] MEDS: 0.9 % Sodium Chloride Flush 3 ML SYRINGE IVFLUSH ×3 (08:15→23:16)
--- NOTE | 2024-02-05 08:46 | PC.NURSE ---
Pt is alert/oriented. Uzbek speaking. Intermittent dry cough noted. No obvious diff breathing on rest. Skin color normal for ethnicity. Speaking full sentences. NSR on tele. 02 on room air 94-95%. Declines AM meds at this time d/t stomach upset, will approach after sometime, Dr Monzon aware. Plan for admit. S/O at bedside. VSS. Breathing tx given by RT
[2024-02-05] MEDS: Fluticasone/Vilanterol 200/25 BLST.W.DEV 1 PUFF INHALE (09:12)
[2024-02-05] MEDS: ondansetron HCL 4 MG/2 ML VIAL IVPUSH (09:28)
--- NOTE | 2024-02-05 09:33 | PC.NURSE ---
Zofran given for nausea
[2024-02-05] MEDS: Roflumilast 500 MCG TABLET PO (09:49)
[2024-02-05] MEDS: predniSONE 20 MG TABLET 40 MG PO (09:50)
[2024-02-05] MEDS: dilTIAZem HCL CD 240 MG CAP.ER.DEG PO (09:50)
[2024-02-05] MEDS: Aspirin 81 MG TAB.CHEW PO (09:51)
[2024-02-05] MEDS: Montelukast Sodium 10 MG TABLET PO (09:51)
[2024-02-05] MEDS: carvediloL 25 MG TABLET PO ×2 (09:52→20:38)
[2024-02-05] MEDS: lisinopriL 40 MG TABLET PO (09:52)
[2024-02-05] MEDS: Lipase/Prot/Amylase 24/76/120K 1 CAP CAPSULE.DR PO ×4 (09:53→20:38)
[2024-02-05] MEDS: Loratadine 10 MG TABLET PO (09:53)
[2024-02-05] MEDS: Cholecalciferol (Vitamin D3) 25 MCG TABLET 50 MCG PO (09:53)
[2024-02-05] MEDS: Atorvastatin Calcium 10 MG TABLET PO (09:53)
[2024-02-05] MEDS: hydroCHLOROthiazide 25 MG TABLET PO (09:54)
[2024-02-05] MEDS: Omeprazole 20 MG CAPSULE.DR PO (09:54)
--- NOTE | 2024-02-05 10:26 | P.PNIM_ITS ---
Subjective Subjective Date of Service: 02/05/24 Interval History: still wheezy, sob Physical Exam 2 Vital Signs: Vital Signs: Last Vital Signs Temp 98.4 F 02/04/24 19:52 Pulse 76 02/05/24 09:55 Resp 20 02/05/24 09:55 BP 134/69 02/05/24 09:55 Pulse Ox 94 02/05/24 09:55 O2 Del Method Room Air 02/05/24 09:55 BMI result Body Mass Index 34.9 General: AO X 3, anxious Resp: diminsihed, wheezing bilateral, no accessory muscles used CVS: S1,S2,RRR GI: soft, non tender, non distended Neuro: motor grossly intact, alert Psych: appropriate affect, appropriate insight Objective Data Active Medications Acetaminophen (Acetaminophen 325 Mg Tablet) 650 mg PO Q6H PRN PRN Reason: Pain, Mild (Pain Scale 1-3), fever or headache Last Admin: 02/04/24 22:12 Dose: 650 mg Documented By: JULIANNA Albuterol Sulfate (Albuterol Sulfate (0.083%) 2.5 Mg/3 Ml Vial.Neb) 2.5 mg INHALE Q2H PRN PRN Reason: Shortness of Breath/Wheezing Albuterol/Ipratropium (Albuterol/Iprat 2.5/0.5mg 3 Ml Ampul.Neb) 3 ml INHALE RQ4H WHILE AWAKE [facility] Last Admin: 02/05/24 07:30 Dose: 3 ml Documented By: SALMA Alprazolam (Alprazolam 0.25 Mg Tablet) 0.25 mg PO BID PRN PRN Reason: Anxiety Lipase/Protease/Amylase (Lipase/Prot/Amylase /76/120k 1 Cap Capsule.) 1 cap PO QIDACHS [facility] Last Admin: 02/05/24 09:53 Dose: 1 cap Documented By: JOVANA Aspirin (Aspirin 81 Mg Tab.Chew) 81 mg PO DAILY [facility] Last Admin: 02/05/24 09:51 Dose: 81 mg Documented By: JOVANA Atorvastatin Calcium (Atorvastatin Calcium 10 Mg Tablet) 10 mg PO DAILY [facility] Last Admin: 02/05/24 09:53 Dose: 10 mg Documented By: JOVANA Azithromycin (Azithromycin 500 Mg Tablet) 500 mg PO Q24H [facility] Benzonatate (Benzonatate 100 Mg Capsule) 100 mg PO TID PRN PRN Reason: Cough Last Admin: 02/04/24 22:12 Dose: 100 mg Documented By: JULIANNA Calcium Carbonate (Calcium Carbonate 750 Mg Tab.Chew) 750 mg PO Q4H PRN PRN Reason: Heartburn Carvedilol (Carvedilol 25 Mg Tablet) 25 mg PO BID [facility]; Protocol Last Admin: 02/05/24 09:52 Dose: 25 mg Documented By: JOVANA Diltiazem HCl (Diltiazem Hcl Cd 240 Mg Cap.Er.Deg) 240 mg PO DAILY [facility]; Protocol Last Admin: 02/05/24 09:50 Dose: 240 mg Documented By: JOVANA Enoxaparin Sodium (Enoxaparin Sodium 40 Mg/0.4 Ml Syringe) 40 mg SUBCUT Q24H [facility] Last Admin: 02/04/24 22:07 Dose: 40 mg Documented By: JULIANNA Fluticasone/Vilanterol (Fluticasone/Vilanterol 200/25 Blst.W.Dev) 1 puff INHALE RDAILY [facility] Last Admin: 02/05/24 09:12 Dose: 1 puff Documented By: SALMA Glucose (Glucose Gel 15 Gm Gel..Gram.) 15 gm PO Q15M PRN; Protocol PRN Reason: per Hypoglycemia Standing Ord. Guaifenesin (Guaifenesin 100 Mg/5 Ml 5 Ml Liquid) 5 ml PO Q6H PRN PRN Reason: Cough Last Admin: 02/04/24 22:37 Dose: 5 ml Documented By: JULIANNA Hydrochlorothiazide (Hydrochlorothiazide 25 Mg Tablet) 25 mg PO DAILY [facility]; Protocol Last Admin: 02/05/24 09:54 Dose: 25 mg Documented By: JOVANA Dextrose (D10) 250 mls @ 750 mls/hr IV Q15M PRN; Protocol PRN Reason: per Hypoglycemia Standing Ord. Ceftriaxone Sodium 1 gm/ (Sodium Chloride) 50 mls @ 100 mls/hr IV Q24H [facility] Imipramine HCl (Imipramine Hcl 50 Mg Tablet) 100 mg PO BEDTIME [facility] Insulin Human Lispro (Insulin Lispro 100 Unit/Ml 3 Ml Vial) 0 unit SUBCUT QIDACHS [facility]; Protocol Last Admin: 09/26/24 08:14 Dose: Not Given Documented By: JOVANA Non-Admin Reason: No Insulin Coverage Lisinopril (Lisinopril 40 Mg Tablet) 40 mg PO DAILY [facility]; Protocol Last Admin: 02/05/24 09:52 Dose: 40 mg Documented By: JOVANA Loratadine (Loratadine 10 Mg Tablet) 10 mg PO DAILY [facility] Last Admin: 02/05/24 09:53 Dose: 10 mg Documented By: JOVANA Magnesium Hydroxide (Milk Of Magnesia 30 Ml Oral.Susp) 30 ml PO DAILY PRN PRN Reason: Constipation Melatonin (Melatonin 3 Mg Tablet) 6 mg PO BEDTIME PRN PRN Reason: Insomnia Last Admin: 02/04/24 22:12 Dose: 6 mg Documented By: JULIANNA Montelukast Sodium (Montelukast Sodium 10 Mg Tablet) 10 mg PO DAILY [facility] Last Admin: 02/05/24 09:51 Dose: 10 mg Documented By: JOVANA Omeprazole (Omeprazole 20 Mg Capsule.Dr) 20 mg PO DAILY [facility] Last Admin: 02/05/24 09:54 Dose: 20 mg Documented By: JOVANA Ondansetron HCl (Ondansetron Hcl 4 Mg/2 Ml Vial) 4 mg IVPUSH Q6H PRN PRN Reason: Nausea Last Admin: 02/05/24 09:28 Dose: 4 mg Documented By: JOVANA Prednisone (Prednisone 20 Mg Tablet) 40 mg PO DAILY [facility] Last Admin: 02/05/24 09:50 Dose: 40 mg Documented By: JOVANA Roflumilast (Roflumilast 500 Mcg Tablet) 500 mcg PO DAILY [facility] Last Admin: 02/05/24 09:49 Dose: 500 mcg Documented By: JOVANA Sodium Chloride (0.9 % Sodium Chloride Flush 3 Ml Syringe) [facility] Last Admin: 02/05/24 08:15 Dose: 3 ml Documented By: JOVANA Vitamin D (Cholecalciferol (Vitamin D3) 25 Mcg Tablet) 50 mcg PO DAILY [facility] Last Admin: 02/05/24 09:53 Dose: 50 mcg Documented By: JOVANA Labs 02/04/24 12:20 02/04/24 12:20 Labs: Laboratory Results - last 24 hr 02/04/24 02/04/24 02/05/24 12:20 21:32 07:19 MCV 89.7 MCH 30.7 MCHC 34.2 RDW 12.4 Plt Count 323 MPV 10.6 Immature Gran % (Auto) 0.4 Neut % (Auto) 81.6 H Lymph % (Auto) 11.8 L [place] % (Auto) 6.1 Eos % (Auto) 0.0 Baso % (Auto) 0.1 Lymph # (Auto) 0.8 L [place] # (Auto) 0.4 Eos # (Auto) 0.0 Baso # (Auto) 0.0 Abs Immat Gran (auto) 0.03 Absolute Neuts (auto) 5.7 Absolute Nucleated RBC 0.000 Nucleated RBC % (auto) 0.0 PT 12.2 INR 1.0 Anion Gap 16 Estim Creat Clear Calc 69.6 Estimated GFR > 60 POC Glucose 259 H 135 H Random Glucose 137 H Calcium 10.4 H D Magnesium 1.8 Total Bilirubin 0.6 Direct Bilirubin 0.2 AST 14 ALT 16 Alkaline Phosphatase 70 Troponin I High Sens 3.3 B-Natriuretic Peptide 33 Total Protein 7.7 Albumin 4.1 Assessment and Plan (1) Respiratory syncytial virus (RSV): Status: Acute Plan 74F PMH copd/asthma, madhav, htn, mood disorder, dm presented with sob COPD/severe persistent asthma with acute decompensation due to RSV Continue steroids, bronchodilators, azithromycin Hypertension Carvedilol, diltiazem, hydrochlorothiazide, lisinopril Mood disorder Continue imipramine Diabetes Insulin sliding scale DVT prophylaxis with Lovenox Full Code reason for continued hospitalization: Still short of breath and wheezy Quality Stroke Does the patient have a stroke diagnosis?: No VTE Prior VTE?: No VTE Risk Level:: Medical - moderate - high VTE Device Contraindication: N/A - Device Ordered VTE Drug Contraindication: N/A - Med Ordered
--- NOTE | 2024-02-05 12:21 | PC.NURSE ---
Pt c/o left hand swelling, not truly appreciated on exam however pt states feels tight. elevated and cool pack provided.
[2024-02-05 12:32] LABS: Glucose, Whole Blood 111 mg/dL (60-115)
[2024-02-05] MEDS: guaiFENesin 100 MG/5 ML 5 ML LIQUID PO ×2 (14:05→20:37)
[2024-02-05] MEDS: cefTRIAXone sodium 1 GM in 0.9 % Sodium Chloride 50 ML IV (14:09)
[2024-02-05 16:43] LABS: Glucose, Whole Blood 120 mg/dL (60-115)
[2024-02-05] MEDS: Azithromycin 500 MG TABLET PO (16:47)
[2024-02-05 20:30] LABS: Glucose, Whole Blood 155 mg/dL (60-115)
[2024-02-05] MEDS: Enoxaparin Sodium 40 MG/0.4 ML SYRINGE SUBCUT (20:37)
[2024-02-05] MEDS: Acetaminophen 325 MG TABLET 650 MG PO (20:37)
[2024-02-05] MEDS: Insulin Lispro 100 UNIT/ML 3 ML VIAL SUBCUT (20:38)
--- NOTE | 2024-02-05 20:44 | PC.NURSE ---
pt is axox4. resp even and unlabored, nad. reports 02/18 KHOURY and requests tylenol. pt also requested prn for cough. poc 155. pt medicated per mar tolerates po intake. education pt, spouse and 2 grandkids on plan of care all verbalize understanding. pt states i just want to get a bed upstairs so i can shower. otherwise no concerns. call ferguson within reach.
[2024-02-05 21:15] LABS: Glucose, Whole Blood 174 mg/dL (60-115)
[2024-02-05] MEDS: Imipramine HCl 50 MG TABLET 100 MG PO (23:15)
[2024-02-06] VITALS (12 sets, daily range): BP systolic 90–154; BP diastolic 52–73; PULSE 61–89; RESP 14–20; TEMP 36.1–36.8; O2SAT 92–98
--- NOTE | 2024-02-06 06:36 | PC.NURSE ---
Patient admitted from the ED around 0520. Patient is AAOX4. Dominican speaking only. Lives with her son who is the hospital personnel director but not yet the HCP. Patient is afebrile with an intermittent non productive cough and expiratory wheezes and expiratory ronchi throughout the lungs. Patient found to be positive for RSV. Droplet precautions in progress. B/L LE have no edema. Skin is intact. She uses a cane at home due to arthritic pain at the left knee. Last BM 02/05/24. Reports LLQ pain exacerbated with palpation. Appetite fair. She denies smoking and drinking alcohol. VSS. Oriented to the unit routine, call light, bed control, tv, tel , bathroom etc. Encouraged to call for assistance. Safety precautions implemented. Patient verbalized understanding to teaching and orientation.
[2024-02-06 06:44] LABS: Hematocrit 39.9 % (37.0-47.0); Hemoglobin 13.4 g/dl (12.0-16.0); Mean Corpuscular HGB Conc 33.6 g/dl (31.0-35.0); Mean Corpuscular Hemoglobin 30.5 pg (27.0-33.0); Mean Corpuscular Volume 90.7 fL (80.0-98.0); Mean Platelet Volume 10.6 fL (9.4-12.3); Platelet Count 304 X10*3/uL (160-400); Red Cell Distribution Width 12.4 % (11.0-16.0); White Blood Count 10.8 X10*3/uL (4.8-10.8)
[2024-02-06 06:53] LABS: Anion Gap 13 (12-20); Blood Urea Nitrogen 19 mg/dL (9-16); Calcium 9.5 mg/dL (8.4-10.2); Carbon Dioxide 25 mmol/L (22-29); Chloride 106 mmol/L (96-108); Creatinine Clr Calc Pharmacy 63.6; Estimated Glomerular Filt Rate > 60; Glucose Fasting 99 mg/dL (60-99); Magnesium 1.9 mg/dL (1.6-2.6); Potassium 3.5 mmol/L (3.3-5.1); Sodium 140 mmol/L (135-145)
[2024-02-06 07:24] LABS: Glucose, Whole Blood 88 mg/dL (60-115)
[2024-02-06] MEDS: Acetaminophen 325 MG TABLET 650 MG PO (08:10)
[2024-02-06] MEDS: guaiFENesin 100 MG/5 ML 5 ML LIQUID PO ×2 (08:10→22:04)
[2024-02-06] MEDS: dilTIAZem HCL CD 240 MG CAP.ER.DEG PO (08:10)
[2024-02-06] MEDS: Atorvastatin Calcium 10 MG TABLET PO (08:11)
[2024-02-06] MEDS: Montelukast Sodium 10 MG TABLET PO (08:13)
[2024-02-06] MEDS: lisinopriL 40 MG TABLET PO (08:13)
[2024-02-06] MEDS: Loratadine 10 MG TABLET PO (08:13)
[2024-02-06] MEDS: Omeprazole 20 MG CAPSULE.DR PO (08:14)
[2024-02-06] MEDS: carvediloL 25 MG TABLET PO (08:14)
[2024-02-06] MEDS: hydroCHLOROthiazide 25 MG TABLET PO (08:14)
[2024-02-06] MEDS: predniSONE 20 MG TABLET 40 MG PO (08:14)
[2024-02-06] MEDS: Roflumilast 500 MCG TABLET PO (08:15)
[2024-02-06] MEDS: Aspirin 81 MG TAB.CHEW PO (08:15)
[2024-02-06] MEDS: Cholecalciferol (Vitamin D3) 25 MCG TABLET 50 MCG PO (08:15)
[2024-02-06] MEDS: 0.9 % Sodium Chloride Flush 3 ML SYRINGE IVFLUSH ×3 (08:19→22:10)
--- NOTE | 2024-02-06 09:48 | P.PNIM_ITS ---
Subjective Subjective Date of Service: 02/06/24 Interval History: Overall improved but still short of breath, wheezy, cough Physical Exam 2 Vital Signs: Vital Signs: Last Vital Signs Temp 98.3 F 02/06/24 07:16 Pulse 64 02/06/24 07:16 Resp 16 02/06/24 07:16 BP 154/72 H 02/06/24 07:16 Pulse Ox 96 02/06/24 07:16 O2 Del Method Room Air 02/06/24 07:16 BMI result Body Mass Index 34.9 General: AO X 3, anxious Resp: diminsihed, wheezing bilateral, no accessory muscles used CVS: S1,S2,RRR GI: soft, non tender, non distended Neuro: motor grossly intact, alert Psych: appropriate affect, appropriate insight Objective Data Active Medications Acetaminophen (Acetaminophen 325 Mg Tablet) 650 mg PO Q6H PRN PRN Reason: Pain, Mild (Pain Scale 1-3), fever or headache Last Admin: 02/06/24 08:10 Dose: 650 mg Documented By: KIAN Albuterol Sulfate (Albuterol Sulfate (0.083%) 2.5 Mg/3 Ml Vial.Neb) 2.5 mg INHALE Q2H PRN PRN Reason: Shortness of Breath/Wheezing Albuterol/Ipratropium (Albuterol/Iprat 2.5/0.5mg 3 Ml Ampul.Neb) 3 ml INHALE RQ4H WHILE AWAKE [facility] Last Admin: 02/06/24 09:05 Dose: Not Given Documented By: COLLIN Non-Admin Reason: Patient Asleep Alprazolam (Alprazolam 0.25 Mg Tablet) 0.25 mg PO BID PRN PRN Reason: Anxiety Lipase/Protease/Amylase (Lipase/Prot/Amylase 24/76/120k 1 Cap Capsule.Dr) 1 cap PO QIDACHS [facility] Last Admin: 02/05/24 20:38 Dose: 1 cap Documented By: ANAMARIA Aspirin (Aspirin 81 Mg Tab.Chew) 81 mg PO DAILY [facility] Last Admin: 02/06/24 08:15 Dose: 81 mg Documented By: KIAN Atorvastatin Calcium (Atorvastatin Calcium 10 Mg Tablet) 10 mg PO DAILY [facility] Last Admin: 02/06/24 08:11 Dose: 10 mg Documented By: KIAN Azithromycin (Azithromycin 500 Mg Tablet) 500 mg PO Q24H [facility] Last Admin: 02/05/24 16:47 Dose: 500 mg Documented By: JOVANA Benzonatate (Benzonatate 100 Mg Capsule) 100 mg PO TID PRN PRN Reason: Cough Last Admin: 02/04/24 22:12 Dose: 100 mg Documented By: JULIANNA Calcium Carbonate (Calcium Carbonate 750 Mg Tab.Chew) 750 mg PO Q4H PRN PRN Reason: Heartburn Carvedilol (Carvedilol 25 Mg Tablet) 25 mg PO BID [facility]; Protocol Last Admin: 02/06/24 08:14 Dose: 25 mg Documented By: KIAN Diltiazem HCl (Diltiazem Hcl Cd 240 Mg Cap.Er.Deg) 240 mg PO DAILY [facility]; Protocol Last Admin: 02/06/24 08:10 Dose: 240 mg Documented By: KIAN Enoxaparin Sodium (Enoxaparin Sodium 40 Mg/0.4 Ml Syringe) 40 mg SUBCUT Q24H [facility] Last Admin: 02/05/24 20:37 Dose: 40 mg Documented By: ANAMARIA Fluticasone/Vilanterol (Fluticasone/Vilanterol 200/25 Blst.W.Dev) 1 puff INHALE RDAILY [facility] Last Admin: 02/06/24 09:05 Dose: Not Given Documented By: COLLIN Non-Admin Reason: Patient Asleep Glucose (Glucose Gel 15 Gm Gel..Gram.) 15 gm PO Q15M PRN; Protocol PRN Reason: per Hypoglycemia Standing Ord. Guaifenesin (Guaifenesin 100 Mg/5 Ml 5 Ml Liquid) 5 ml PO Q6H PRN PRN Reason: Cough Last Admin: 02/06/24 08:10 Dose: 5 ml Documented By: KIAN Hydrochlorothiazide (Hydrochlorothiazide 25 Mg Tablet) 25 mg PO DAILY [facility]; Protocol Last Admin: 02/06/24 08:14 Dose: 25 mg Documented By: KIAN Dextrose (D10) 250 mls @ 750 mls/hr IV Q15M PRN; Protocol PRN Reason: per Hypoglycemia Standing Ord. Ceftriaxone Sodium 1 gm/ (Sodium Chloride) 50 mls @ 100 mls/hr IV Q24H [facility] Last Infusion: 02/05/24 15:13 Dose: Infused Documented By: JOVANA Imipramine HCl (Imipramine Hcl 50 Mg Tablet) 100 mg PO BEDTIME [facility] Last Admin: 02/05/24 23:15 Dose: 100 mg Documented By: ANAMARIA Insulin Human Lispro (Insulin Lispro 100 Unit/Ml 3 Ml Vial) 0 unit SUBCUT QIDACHS [facility]; Protocol Last Admin: 02/06/24 07:37 Dose: Not Given Documented By: KIAN Non-Admin Reason: No Insulin Coverage Lisinopril (Lisinopril 40 Mg Tablet) 40 mg PO DAILY [facility]; Protocol Last Admin: 02/06/24 08:13 Dose: 40 mg Documented By: KIAN Loratadine (Loratadine 10 Mg Tablet) 10 mg PO DAILY [facility] Last Admin: 02/06/24 08:13 Dose: 10 mg Documented By: KIAN Magnesium Hydroxide (Milk Of Magnesia 30 Ml Oral.Susp) 30 ml PO DAILY PRN PRN Reason: Constipation Melatonin (Melatonin 3 Mg Tablet) 6 mg PO BEDTIME PRN PRN Reason: Insomnia Last Admin: 02/04/24 22:12 Dose: 6 mg Documented By: JULIANNA Montelukast Sodium (Montelukast Sodium 10 Mg Tablet) 10 mg PO DAILY [facility] Last Admin: 02/06/24 08:13 Dose: 10 mg Documented By: KIAN Omeprazole (Omeprazole 20 Mg Capsule.Dr) 20 mg PO DAILY [facility] Last Admin: 02/06/24 08:14 Dose: 20 mg Documented By: KIAN Ondansetron HCl (Ondansetron Hcl 4 Mg/2 Ml Vial) 4 mg IVPUSH Q6H PRN PRN Reason: Nausea Last Admin: 02/05/24 09:28 Dose: 4 mg Documented By: JOVANA Prednisone (Prednisone 20 Mg Tablet) 40 mg PO DAILY [facility] Last Admin: 02/06/24 08:14 Dose: 40 mg Documented By: KIAN Roflumilast (Roflumilast 500 Mcg Tablet) 500 mcg PO DAILY [facility] Last Admin: 02/06/24 08:15 Dose: 500 mcg Documented By: KIAN Sodium Chloride (0.9 % Sodium Chloride Flush 3 [facility]l [facility]) [facility] Admin: 02/06/24 08:19 Dose: 3 ml Documented By: KIAN Vitamin D (Cholecalciferol (Vitamin D3) 25 Mcg Tablet) 50 mcg PO DAILY [facility] Last Admin: 02/06/24 08:15 Dose: 50 mcg Documented By: KIAN Labs 02/06/24 06:33 02/06/24 06:33 Labs: Laboratory Results - last 24 hr 02/05/24 02/05/24 02/05/24 12:29 16:39 20:25 MCV MCH MCHC RDW Plt Count MPV Absolute Nucleated RBC Nucleated RBC % (auto) Anion Gap Estim Creat Clear Calc Estimated GFR POC Glucose 111 120 H 155 H Fasting Glucose Calcium Magnesium 02/05/24 02/06/24 02/06/24 21:12 06:33 07:19 MCV 90.7 MCH 30.5 MCHC 33.6 RDW 12.4 Plt Count 304 MPV 10.6 Absolute Nucleated RBC 0.000 Nucleated RBC % (auto) 0.0 Anion Gap 13 Estim Creat Clear Calc 63.6 Estimated GFR > 60 POC Glucose 174 H 88 Fasting Glucose 99 Calcium 9.5 D Magnesium 1.9 Microbiology Microbiology Results: Microbiology 02/04/24 12:20 Blood Culture - Preliminary Blood - Venous No growth after 24 hours. 02/04/24 12:20 Blood Culture - Preliminary Blood - Venous No growth after 24 hours. Assessment and Plan (1) Respiratory syncytial virus (RSV): Status: Acute Plan 74F PMH copd/asthma, madhav, htn, mood disorder, dm presented with sob COPD/severe persistent asthma with acute decompensation due to RSV Continue steroids, bronchodilators, azithromycin Hypertension Carvedilol, diltiazem, hydrochlorothiazide, lisinopril Mood disorder Continue imipramine Diabetes Insulin sliding scale DVT prophylaxis with Lovenox Full Code reason for continued hospitalization: Still short of breath and wheezy Quality Stroke Does the patient have a stroke diagnosis?: No VTE Prior VTE?: No VTE Risk Level:: Medical - moderate - high VTE Device Contraindication: N/A - Device Ordered VTE Drug Contraindication: N/A - Med Ordered
[2024-02-06] MEDS: Benzonatate 100 MG CAPSULE PO (10:36)
[2024-02-06] MEDS: Lipase/Prot/Amylase 24/76/120K 1 CAP CAPSULE.DR PO (10:37)
[2024-02-06 11:18] LABS: Glucose, Whole Blood 150 mg/dL (60-115)
--- NOTE | 2024-02-06 11:47 | PC.NURSE ---
Addendum entered by Kristen Archibald RN 02/06/24 12:21: RR 20 Original Note: Pt. complained of dizziness when ambulating, BP 95/52, HR 69, 95%RA, RR 2, stated dizziness went away after sitting down. notified.
[2024-02-06] MEDS: Albuterol/Iprat 2.5/0.5MG 3 ML AMPUL.NEB INHALE ×3 (11:54→19:42)
--- NOTE | 2024-02-06 13:52 | MHC.CM.PN ---
MET WITH PATIENT AT BEDSIDE, SCREENER AND BLENDER OPERATOR ASSISTING. IMM DELIVERED. PATIENT LIVES W/ SON AND SON'S FATHER WHO IS ALSO CAREGIVER. ACTIVE W/ [facility] FOR AFC LEVEL 2. AMBULATES W/ CANE. CAREGIVER ASSISTS W/ ADL'S. NO HCP. CM PROVIDED EDUCATION AND OFFERED ASSISTANCE. PATIENT DECLINED. PCP EDWARD REBOLLEDO MD [facility] CARE TEAM: PING JON EXCELSIOR MACHINE OPERATOR: [phone], ADELSO LOPEZ [phone] DP: GOAL IS RETURN HOME W/ AFC SERVICES. FAMILY TO TRANSPORT. CM WILL CONTINUE TO FOLLOW.
[2024-02-06] MEDS: cefTRIAXone sodium 1 GM in 0.9 % Sodium Chloride 50 ML IV (15:45)
[2024-02-06 16:07] LABS: Glucose, Whole Blood 174 mg/dL (60-115)
[2024-02-06] MEDS: ondansetron HCL 4 MG/2 ML VIAL IVPUSH (16:30)
--- NOTE | 2024-02-06 16:35 | PC.NURSE ---
Bladder scan pt. for 534ml, post f/c removal, pt. stated he have no urge to void, updated.
[2024-02-06] MEDS: Insulin Lispro 100 UNIT/ML 3 ML VIAL SUBCUT (16:49)
[2024-02-06] MEDS: Azithromycin 500 MG TABLET PO (18:15)
[2024-02-06] MEDS: Enoxaparin Sodium 40 MG/0.4 ML SYRINGE SUBCUT (18:15)
[2024-02-06 20:38] LABS: Glucose, Whole Blood 146 mg/dL (60-115)
[2024-02-07 03:26] VITALS: BP 92/54; PULSE 67; RESP 18; TEMP 36.5; O2SAT 95
--- NOTE | 2024-02-07 05:18 | PC.NURSE ---
Late entry: Pt's BP trending down with most recent BP 92/54, poor fluid intake, +RSV. MD Forbes notified of the situation. Prior to recent BP, pt's URIAH Carvedilol was on hold at bedtime d/t low BP 99/55. This RN asked MD Forbes if to start IVF, but no new orders were given at this time, just to defer to AM team. Will continue to monitor pt's BP. Plan of care ongoing.
[2024-02-07 07:29] LABS: Glucose, Whole Blood 100 mg/dL (60-115)
[2024-02-07 07:56] VITALS: BP 124/73; PULSE 67; RESP 18; TEMP 36.9; O2SAT 97
[2024-02-07 08:00] VITALS: BP 124/73; PULSE 67; RESP 18; TEMP 36.9; O2SAT 97
[2024-02-07] MEDS: Fluticasone/Vilanterol 200/25 BLST.W.DEV 1 PUFF INHALE (08:09)
[2024-02-07] MEDS: Albuterol/Iprat 2.5/0.5MG 3 ML AMPUL.NEB INHALE ×2 (08:09→11:22)
[2024-02-07 08:10] VITALS: PULSE 67; RESP 18; O2SAT 98
--- NOTE | 2024-02-07 08:57 | PM.DS ---
DS: Providers Provider Date of Service: 02/07/24 Date of admission: 02/04/24 18:55 Date of discharge: 02/07/24 Primary care physician: Mary Flores MD DS: Diagnosis Discharge Diagnosis (1) Respiratory syncytial virus (RSV): Status: Acute DS: Summary Hospital Course Hospital Course: from initial hpi: 74 year old female with OTILIO, copd/asthma and other issues as listed below. She was seen in the ED 2 days earlier and diagnosed with RSV and bronchitisand discharged with Prednisone and doxycyline and cefuroximine. She continues to feels worse, she went to walkin clinic at the [facility] and again sent home. He hasnot been sleeping at night due to peristent cough,she called the clinic again today and advised to come to the ED. She reports O2 sat in the 80s at home. CXR shows developing infiltrate, wbc normal. Given ceftriaxone and Aithro. Oxgen saturation has been normal in the ED. hospital course: Patient was admitted for COPD/severe persistent asthma with acute decompensation due to RSV. She was treated with steroids, bronchodilators, azithromycin. Symptoms slowly improved. She still has a mild wheeze but is feeling much better will be discharged home on 5 more days of prednisone. For hypertension patient had low normal blood pressures during hospitalization, diltiazem, hydrochlorothiazide, lisinopril have been held, can continue carvedilol, BP should continue to be monitored at home and meds adjusted as needed. For mood disorder was continued on imipramine. For diabetes was continued on insulin sliding scale. Time Attestation Discharge Coordination Time (in mins): 33 Quality: Safe Use of Opioids Does Pt have an Active Cancer Diagnosis on the Problem List?: No Quality: Stroke Does the patient have a stroke diagnosis?: No Physical Exam Vital Signs: Vital Signs: Last Vital Signs Temp 98.5 F 02/07/24 08:00 Pulse 67 02/07/24 08:10 Resp 18 02/07/24 08:10 BP 124/73 02/07/24 08:00 Pulse Ox 97 02/07/24 08:00 O2 Del Method Nasal Cannula 02/07/24 08:00 O2 Flow Rate 2 02/07/24 08:00 BMI result Body Mass Index 34.9 General: AO X 3, no acute distress Resp: mild wheeze bilateral, no accessory muscles used CVS: S1,S2,RRR GI: soft, non tender, non distended Neuro: motor grossly intact, alert Psych: appropriate affect, appropriate insight DS: Data Data Completed and Pending Completed studies during hospitalization [Text1]: Procedures Resection of Gallbladder, Percutaneous Endoscopic Approach (10/08/23) Labs on day of discharge: Laboratory Results - last 24 hr 02/06/24 02/06/24 02/06/24 11:14 15:58 20:35 POC Glucose 150 H 174 H 146 H 02/07/24 07:23 POC Glucose 100 Preliminary micro results at discharge 02/04/24 12:20 Blood Culture - Preliminary Blood - Venous No growth after 48 hours. 02/04/24 12:20 Blood Culture - Preliminary Blood - Venous No growth after 48 hours. Discharge Plan Discharge Anticipated Discharge Date/Time: 02/07/24 08:53 Patient Disposition: Home, Self-Care Discharge Diagnosis: copd, rsv Referrals: Mary Flores MD [Primary Care Provider] - 1 Week Discharge Medications: New prednisone 20 mg Tablet 40 mg PO DAILY Qty: 10 0RF Continued albuterol sulfate 2.5 mg /3 mL (0.083 %) solution for nebulization 2.5 mg inhalation Q4H PRN (Reason: shortness of breath or wheezing) 30 Days Qty: 360 11RF Spiriva Respimat 2.5 mcg/actuation mist 2 puff inhalation DAILY 30 Days Qty: 1 11RF metformin 500 mg tablet 500 mg PO DAILY alendronate 70 mg tablet 70 mg PO MO Rx Instructions: per patient friday or friday acetaminophen 650 mg tablet extended release 650 mg PO Q6H PRN (Reason: pain or fever) bisacodyl [Dulcolax (bisacodyl)] 5 mg tablet,delayed release (DR/EC) 10 mg PO BEDTIME albuterol sulfate 90 mcg/actuation HFA aerosol inhaler 2 puff inhalation Q4H PRN (Reason: shortness of breath or wheezing) aspirin 81 mg tablet,chewable 1 tab PO DAILY (DME) nebulizers Misc See Rx Instructions .Route Rx Instructions: As directed fluticasone furoate-vilanterol [Breo Ellipta] 200-25 mcg/dose blister with device 1 ea PO DAILY Qty: 60 11RF montelukast 10 mg tablet 10 mg PO DAILY 30 Days Qty: 30 11RF atorvastatin 10 mg tablet 10 mg PO DAILY budesonide-formoterol 160-4.5 mcg/actuation HFA aerosol inhaler 2 puff inhalation BID 30 Days Qty: 10.2 11RF cetirizine [Zyrtec] 10 mg tablet 10 mg PO DAILY 30 Days Qty: 30 7RF cholecalciferol (vitamin D3) [Vitamin D3] 50 mcg (2,000 unit) capsule 50 mcg PO DAILY roflumilast 500 mcg tablet 500 mcg PO DAILY carvedilol 25 mg tablet 25 mg PO BID omeprazole 20 mg capsule,delayed release(DR/EC) 20 mg PO DAILY Qty: 30 6RF docusate sodium 100 mg capsule 100 mg PO .BID WITH FOOD 30 Days Qty: 60 6RF Linzess 290 mcg capsule 290 mcg PO QAM Qty: 30 6RF Creon 24,000-76,000 -120,000 unit capsule,delayed release(DR/EC) 1 cap PO QIDACHS 30 Days Qty: 120 6RF Rx Instructions: administer with meals and/or snacks imipramine HCl 50 mg tablet 100 mg PO BEDTIME Qty: 60 6RF Discontinued hydrochlorothiazide 25 mg tablet 25 mg PO DAILY prednisone 20 mg tablet 60 mg PO DAILY 5 Days Qty: 15 0RF cefuroxime axetil 500 mg tablet 500 mg PO BID 7 Days Qty: 14 0RF doxycycline hyclate 100 mg tablet 100 mg PO BID 7 Days Qty: 14 0RF lisinopril 40 mg tablet 40 mg PO DAILY diltiazem HCl 240 mg capsule,extended release 24hr 240 mg PO DAILY Discharge Orders: Discharge Order (Routine); Ordered 02/07/24 Ordered By: Johnnie Monzon Diet: Advance to usual diet Activity on Discharge: As tolerated Stand Alone Forms: Patient Portal Discharge page Print Language: Malay Care Plan Goals: recovery Health Concerns: rsv, copd Plan of Treatment: prednisone 5 more days, med changes as noted (some bp meds held for low blood pressures) Assessment: see above
[2024-02-07] MEDS: ondansetron HCL 4 MG/2 ML VIAL IVPUSH (09:10)
[2024-02-07] MEDS: 0.9 % Sodium Chloride Flush 3 ML SYRINGE IVFLUSH (09:13)
--- NOTE | 2024-02-07 09:14 | MHC.CM.PN ---
pt dc home with resumtion of servies thru [facility]
[2024-02-07 11:24] VITALS: PULSE 68; RESP 20; O2SAT 96
== END 2024-02-07 11:45 | disposition home or self-care (01) | DRG 190 ==
LOC: HO.ED 18:19 → HO.EDOVER 19:01 → HO.S3 02-06 04:30
PROVIDERS: Physician Assistant; Admitting Provider Internal Medicine; Emergency Provider Emergency Medicine; PCP General Practice; Visit Provider Internal Medicine
DX: J44.0 Chronic obstructive pulmonary disease with (acute) lower respiratory infection (principal); J18.9 Pneumonia, unspecified organism; J45.51 Severe persistent asthma with (acute) exacerbation; J44.1 Chronic obstructive pulmonary disease with (acute) exacerbation; I10 Essential (primary) hypertension; E78.5 Hyperlipidemia, unspecified; F39 Unspecified mood [affective] disorder; E11.9 Type 2 diabetes mellitus without complications; K86.89 Other specified diseases of pancreas; J20.5 Acute bronchitis due to respiratory syncytial virus; G47.33 Obstructive sleep apnea (adult) (pediatric); Z79.82 Long term (current) use of aspirin; Z79.51 Long term (current) use of inhaled steroids; Z79.84 Long term (current) use of oral hypoglycemic drugs; Z79.899 Other long term (current) drug therapy
CPT/HCPCS: 36415; 71046; 80048; 80076; 82947; 83735; 83880; 84484; 85025; 85027; 85610; 87040; 93005; 94640; 99285; J0456; J0696; J1650; J2405; J2919; J3475

== ENCOUNTER → 2024-02-04 18:55 | Outpatient (BNV) | payer OTHER, SELFPAY | PROVIDERS: Admitting Provider Internal Medicine; Emergency Provider Emergency Medicine; PCP General Practice; Visit Provider Internal Medicine | DX: B33.8 Other specified viral diseases (principal) | CPT/HCPCS: 99223; 99232; 99233; 99239 ==

== ENCOUNTER 2024-06-10 09:31 | Outpatient (AMB) | payer OTHER, SELFPAY ==
[2024-06-10 10:30] VITALS: PULSE 70; O2SAT 99; BMI 35.3
--- NOTE | 2024-06-10 10:30 | A.OFFVIS_ITS ---
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 Mill Operator Required: Yes Tube Mill Operator Name: Carlos Alberto [id number] Information Interpreted: non-clinical only Allergies morphine [MORPHINE] Allergy (Intermediate, Verified 06/10/24 10:34) NAUSEA, rash, redness Medication List - Last Reconciled 06/10/24 by ROBBY Nielsen acetaminophen ER 650 mg PO Q6H PRN albuterol sulfate 90 mcg/actuation 2 puffs inhalation Q4H PRN albuterol sulfate 2.5 mg (3 mL) inhalation Q4H PRN 30 days alcohol swabs (Alcohol Pads) 1 pad topical NEEDED alendronate 70 mg PO MO aspirin 1 tab PO DAILY atorvastatin 10 mg PO DAILY bisacodyl (Dulcolax (bisacodyl)) 10 mg PO BEDTIME blood-glucose meter (RFMicronyle Quinton Lite kit) As directed budesonide-formoterol 160-4.5 mcg/actuation 2 puffs inhalation BID 30 days carvedilol 25 mg PO BID cetirizine (Zyrtec) 10 mg PO DAILY 30 days cholecalciferol (vitamin D3) (Vitamin D3) 50 mcg PO DAILY docusate sodium 100 mg PO .BID WITH FOOD 30 days fluticasone furoate-vilanterol 200-25 mcg/dose (Breo Ellipta) 1 ea PO DAILY guaifenesin 100 mg (5 mL) PO Q6H PRN imipramine HCl 100 mg (2 x 50 mg) PO BEDTIME lancets (FreeStyle Lancets) As directed linaclotide (Linzess) 290 mcg PO QAM bbkxoh-avtscpzr-wscuwiv 24,000-76,000 -120,000 unit (Creon) 1 cap PO QIDACHS 30 days metformin 500 mg PO DAILY montelukast 10 mg PO DAILY 30 days nebulizers As directed omeprazole 20 mg PO DAILY prednisone 40 mg (2 x 20 mg) PO DAILY roflumilast 500 mcg PO DAILY roflumilast (Daliresp) 500 mcg PO DAILY 30 days tiotropium bromide 2.5 mcg/actuation (Spiriva Respimat) 2 puffs inhalation DAILY 30 days walker Folding Front wheeled walker duration 99 days HPI Comments Details: Right-handed 74-yr-old female presents for new pt evaluation of headache and tremor. Patient is accompanied by her Selvin. Pt reports she has had headache for some time, but can not state exactly for how long. She does not recall any precipitating triggers. However, she has constant right neck pain, in her headaches, which come about 3 times a week, are always right-sided. Pt also reports a LUE tremor rest and action tremor for about 9 months. She has had left arm pain for a long time. She denies h/o LUE/left shoulder injury/surgery. She has not tried any medications for this tremor. Has tried PT for tremor and balance difficculties, but was not helpful. Has cane but does not use, and has a walker when her pain is worse. Needs assist w/ ADL's d/t poor balance and dizziness. States she can sometimes do her buttons, but cannot cut her food. Endorses constipation, difficulty writing, gait changes d/t knee pain/balance difficulties and asthma s/s, has fallen in the past- not in the last year, stiffness. Denies hyposmia, dysphagia, voice changes, drooling, orthostatic lightheadedness, parasomnias, hallucinations, memory changes, urinary inc. Has taken medications for depression but does not recall which. Denies h/o psychiatric hospitalization or reglan use. Her son has BUE tremor- more action tremor. Pt was previously seen by Dr Dupont- last seen > 2 yrs ago. PMH and ROS are notable for:? General: dizziness Musculoskeletal disorders or injury: Constant right neck pain. Chronic low back pain which radiates into RLE and right groin, RLE pins and needles/numbness, however can not feel the ground while walking . History of concussion/head injury: denies Mood d/o: Anxiety, Depression, Respiratory d/o: Asthma COPD CV disease: HTN, HLD, PVD Clotting or hematology d/o: denies Endocrine or metabolic d/o: Diabetes History of seizure: denies History of syncope: denies : denies GI d/o: GERD, Constipation: Family history of migraine or other headache disorder: her dtr, granddtr Lifestyle considerations: Sleep routine: Usual bedtime: Varies and wake-up time: 06:00 Sleep difficulties: Endorses: OTILIO- uses her CPAP machine, states it helps her sleep- managed by Dr Bonner, pulmonary. Has difficulty initiating sleep- prone to ruminating, restless legs, leg discomfort, urge to move, and nocturnal leg cramps- more in the right leg. Is not taking anything for RLS s/s.States use s Amitriptyline 10mg qhs. Caffeine use: 1 small cup in the am. 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 Headache questionnaire:? Age/time of onset: Patient is unsure, but states for many years. Preceding causes: Denies Previous work-up: 08/16/2021, MR/MR head/brain wo con - No acute intracranial findings. No acute infarcts. - There is mild chronic microangiopathy. Typical headache characteristics: Prodrome symptoms: none Aura: right eye- black dots or blurry vision- all the time w/wo headache Pain intensity: severe Location, quality, characteristics: Right sided eye/frontal through occipital/neck. Associated symptoms: photophobia, phonophobia, nausea, vomiting, spinning dizziness, not right in space dizziness, fatigue, generalized weakness, activity intolerance. Postdrome: tiredness Triggers: no specific triggers, but does not sleep well Time of day: wakes up with headache Duration and Frequency: Constant right sided neck pain, with 3 headache days per week, which can last all day. How does headache impact your life? cannot do her daily activities Current acute medication use/interventions: Ibuprofen 800mg- helps. Naproxen 250mg, Tylenol 1000mg, Current preventative medication use: None Non-pharmacological interventions: uses ice, and rests in a quiet/dark place. [facility] Medical History Atelectasis of left lung Chronic pain syndrome 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 Sacroiliitis Disc degeneration, lumbar OTILIO (obstructive sleep apnea) Back pain HTN (hypertension) Skin cancer (melanoma) GERD (gastroesophageal reflux disease) Depression OTILIO (obstructive sleep apnea) Kidney stones Pulmonary nodule Severe asthma Primary osteoarthritis involving multiple joints Pneumonia Chronic allergic rhinitis (~03/09/20) Asthma-COPD overlap syndrome Surgical History History of bronchoscopy History of cystoscopy History of laparoscopic appendectomy History of nasal surgery Hx of section Hx of tubal ligation Hx of colonoscopy History of esophagogastroduodenoscopy (EGD) Hx of knee surgery Family History Father No problems noted. Mother No problems noted. Social History Household Members: Children Housing: Apartment Do you presently have visiting nurse or other home services: Yes (private home health aid) Alcohol intake: never Patient Tobacco Use Status: Never used Tobacco e-Cigarette/Vaping Use: Never Used Second Hand Smoke Exposure: No Advance Directives Date on File: 10/13/23 service: No Current occupational status: disabled Current occupation: rt handed Physical Exam Vital Signs: Last Vital Signs Pulse 70 06/10/24 10:30 Pulse Ox 99 06/10/24 10:30 Oxygen Delivery Method Room Air 06/10/24 10:30 BMI result Body Mass Index 35.3 Const Orientation/consciousness: patient oriented x3 Resp Effort & Inspection: normal respiratory effort and able to speak in complete sentences Neuro Other: General: A&O x's 3 Head: Bilateral TMJ crepitus. Cervical exam: Bilateral posterior cervical tightness and tenderness, more so on right. Spurling test: Elicits right lower neck and trap pain Expression: Intact Voice: Intact Tremor: LUE rest and postural tremor. Left > right kinetic tremor. Writing sample: Mild micrographia with worsening tremor Archimede's spiral: Right: Legible with very mild tremor at end of spiral, left legible with pronounced tremor from beginning to end of spiral Tone: LUE rigidity Posture: Left 1st and 4th finger rests in extension. Right 1st finger rests in slight extension. Dyskinesia: None FFM: Okay Finger-Nose: No dysmetria. Left > right kinetic tremor BUE YANI: Slightly decreased fluidity on left Foot taps: Okay Gait: Requires use of arms to push up from chair. Decreased left arm swing, at times holds arm with elbow flexion, slight left hand pill rolling, short antalgic steps. Psych: Pleasant affect General: patient oriented x3 Cranial nerves: Yes CN's II-XII intact bilaterally Cognition (Neuro): normal cognition Motor exam (neuro): 5/5 motor strength present throughout Deep tendon reflexes (DTR's): Right triceps reflex intensity grade: 2+, Left triceps reflex intensity grade: 2+, Rt Biceps (C5, C6): 2+, Left biceps reflex intensity grade: 2+, Right brachioradialis reflex intensity grade: 2+, Left brachioradialis reflex intensity grade: 2+, Right patellar reflex intensity grade: 2+ and Left patellar reflex intensity grade: 2+ Pupils: Normal pupillary reactivity/response: bilateral Psych Appearance: grossly normal Mental Status: mental status grossly normal Speech and movement: Clear speech present Affect: normal affect Attitude: cooperative Thought process: Normal thought process present Assessment & Plan Assessment & Plan (1) Tremor: Comment: Asymmetric left greater than right tremor. Code(s): R25.1 - Tremor, unspecified Category: Medical (2) Rigidity: Comment: LUE rigidity. Left greater than right finger posturing. Code(s): R29.898 - Other symptoms and signs involving the musculoskeletal system Category: Medical (3) Cervicalgia: Code(s): M54.2 - Cervicalgia Category: Medical (4) Migraine without aura: Comment: Patient does report episodes of seeing black dots/blurry vision, however states this is all the time either with or without migraine headache. Code(s): G43.009 - Migraine without aura, not intractable, without status migrainosus Category: Medical Plan Pt advised to undergo: Labs for common etiologies. C-spine MRI without contrast PT and eval and treat- patient states her priority is to start with treatment of right greater than left cervicalgia and migraine headache. Upon completion of PT for above, consider referral to PT or OT for tremor and/or gait disorder. For asymmetric tremor with features of both essential tremor and possible early signs of a progressive movement disorder: Start carbidopa levodopa IR 25-100 mg 1 tab p.o. b.i.d. before breakfast and dinner. May take with a small amount of carbohydrate. Reviewed common side effects to monitor for, including but not limited orthostatic lightheadedness, hallucinations, nausea/GI upset. For overall headache management: * Optimize good self-care, including but not limited to maintaining a healthy diet, adequate fluid intake, adequate sleep, and engaging in regular physical activity. * Track headaches, especially after any treatment regimen changes. Migraine [employer] is one of many headache tracking apps. * Continue to use her CPAP nightly. For acute headache treatment: May continue ibuprofen 800 mg p.o. t.i.d. p.r.n. Previous acute migraine medication trials: None other Acute migraine medication contraindications: Would use caution with triptans at this time due to history HTN. For headache prevention medication: Preventative medications should be taken routinely as prescribed for best effect, it may take several weeks for full effect to take effect. Start Magnesium 400mg qhs Continue imipramine 100 mg q.h.s.- managed by GI, however this may act as a migraine preventative agent as well. Previous migraine prevention medication trials: Amitriptyline 10 mg- ineffective. Migraine prevention medication contraindications: Topiramate due to history of nephrolithiasis Pt seen in collaboration w/ Dr Nancy Barajas. Will follow-up upon review of above and patient to follow-up in clinic in 3-4 months or sooner prn. Orders: Orders MR cervical spine wo con Today M54.2 - Cervicalgia, R25.1 - Tremor, unspecified, R29.898 - Other symptoms and signs involving the musculoskeletal system PT Evaluation and Treatment Today G43.009 - Migraine without aura, not intractable, without status migrainosus, M54.2 - Cervicalgia Complete Blood Count Auto Diff Today D64.9 - Anemia, unspecified, E55.9 - Vitamin D deficiency, unspecified, R25.1 - Tremor, unspecified, R29.898 - Other symptoms and signs involving the musculoskeletal system TSH reflex Free T4 Today D64.9 - Anemia, unspecified, E55.9 - Vitamin D deficiency, unspecified, R25.1 - Tremor, unspecified, R29.898 - Other symptoms and signs involving the musculoskeletal system Vitamin B12 and Folate Today D64.9 - Anemia, unspecified, E55.9 - Vitamin D deficiency, unspecified, R25.1 - Tremor, unspecified, R29.898 - Other symptoms and signs involving the musculoskeletal system Methylmalonic Acid Today D64.9 - Anemia, unspecified, E55.9 - Vitamin D deficiency, unspecified, R25.1 - Tremor, unspecified, R29.898 - Other symptoms and signs involving the musculoskeletal system REED Reflex Titer and Pattern Today D64.9 - Anemia, unspecified, E55.9 - Vitamin D deficiency, unspecified, R25.1 - Tremor, unspecified, R29.898 - Other symptoms and signs involving the musculoskeletal system Erythrocyte Sedimentation Rate Today D64.9 - Anemia, unspecified, E55.9 - Vitamin D deficiency, unspecified, R25.1 - Tremor, unspecified, R29.898 - Other symptoms and signs involving the musculoskeletal system Lyme IgG/IgM w/reflex to WB Today D64.9 - Anemia, unspecified, E55.9 - Vitamin D deficiency, unspecified, R25.1 - Tremor, unspecified, R29.898 - Other symptoms and signs involving the musculoskeletal system Comprehensive Met. Panel Today D64.9 - Anemia, unspecified, E55.9 - Vitamin D deficiency, unspecified, R25.1 - Tremor, unspecified, R29.898 - Other symptoms and signs involving the musculoskeletal system IRON PROFILE Today D64.9 - Anemia, unspecified, E55.9 - Vitamin D deficiency, unspecified, R25.1 - Tremor, unspecified, R29.898 - Other symptoms and signs involving the musculoskeletal system Ferritin Today D64.9 - Anemia, unspecified, E55.9 - Vitamin D deficiency, unspecified, R25.1 - Tremor, unspecified, R29.898 - Other symptoms and signs i nvolving the musculoskeletal system Homocysteine Today D64.9 - Anemia, unspecified, E55.9 - Vitamin D deficiency, unspecified, R25.1 - Tremor, unspecified, R29.898 - Other symptoms and signs involving the musculoskeletal system Vitamin D 25-OH (D2 and D3) Today D64.9 - Anemia, unspecified, E55.9 - Vitamin D deficiency, unspecified, R25.1 - Tremor, unspecified, R29.898 - Other symptoms and signs involving the musculoskeletal system Rheumatoid Factor Today D64.9 - Anemia, unspecified, E55.9 - Vitamin D deficiency, unspecified, R25.1 - Tremor, unspecified, R29.898 - Other symptoms and signs involving the musculoskeletal system CRP High Sensitivity Today D64.9 - Anemia, unspecified, E55.9 - Vitamin D deficiency, unspecified, R25.1 - Tremor, unspecified, R29.898 - Other symptoms and signs involving the musculoskeletal system Medications: New carbidopa-levodopa 25-100 mg 30 minutos antes desayunar y cenar. 1 tab PO BID 30 days 60 tabs 3RF magnesium oxide may hold for loose stools 400 mg PO BEDTIME 30 days 30 tabs 6RF Coding Level of Care Code New Pt Level 4 (47402) Diagnoses Tremor R25.1 Rigidity R29.898 Cervicalgia M54.2 Migraine without aura G43.009
--- OUTSIDE RECORDS SUMMARY | 2024-06-10 12:34 | XMS_ITS | Encounter Summary ---
Author Organization [employer] Address [address] [place] [address] Care Team Providers Care Ash Handler Name Role Phone Mary Flores MD Primary Care Provider [phone] Reason for Visit * Reason Onset Date Comments Durable Medical Equipment 07/25/2023 Encounter Details Date Type Department Care Team ([facility] st Contact Info) Description 07/25/2023 Telephone [facility] MEDICINE [address] [place] [address] Mary Flores MD [address] [place] [address] Durable Medical Equipment Social History Tobacco Use Types Packs/Day Years Used Date Smoking Tobacco: Never Smokeless Tobacco: Never Alcohol Use Standard Drinks/Week Comments Never 0 (1 standard drink = 0.6 oz pur e alcohol) Housing Stability Answer Date Recorded What is your housing situation today? I have toña sing 02/24/[address] you li ve. Do you have problems with any of the following? None of the above 02/24/2023 Food Insecurity Answer Date Recorded Within the past 12 months, y ou worried that your food would run out before you got money to buy more: Never True 02/24/2023 Within the past 12 months,th e food you bought just didn't last and you didn't have enough money to get more: Never True Transportation Answer Date Recorded In the past 12 months, has l ack of transportation kept you from medical appts, meetings, work or from getting things needed for daily living? Yes, it has kept me from non-medical meetings, work, or getting things that I need 07/15/2023 Utilities Answer Date Recorded In the past 12 months, has t he electric, gas, oil or water company threatened to shut off services in your home? No 02/24/2023 Depression Answer Date Recorded Patient Health Questionnaire-2 Score 0 08/23/2022 Comments Unknown Sex and Gender Information Value Date Recorded Sex Assigned at Female 03/11/2022 10:17 AM EDT Legal Sex Female 10:17 AM EDT Gender Identity Female 03/11/2022 10:17 AM EDT Sexual Orientation Straight 03/11/2022 10 :17 AM EDT documented as of this encounter Miscellaneous Notes * Telephone Encounter - Cassidy Bryant - 07/25/2023 11:42 AM EDT Tc from [place] with [facility] requesting DME supplies to be sent to [facility] - bed pads - L pull ups - oximeter documented in this encounter Plan of Treatment Not on file documented as of this encounter Visit Diagnoses Not on filedocumented in this encounter Care Teams Ash Handler Relationship Specialty Start Date End Date Mary Flores MD [address] [place] [address] PCP - General Family Medicine 01/05/22 documented as of this encounter
--- OUTSIDE RECORDS SUMMARY | 2024-06-10 12:34 | XMS_ITS | Encounter Summary ---
Author Organization [employer] Address [address] [place] [address] Care Team Providers Care Safety Teacher Name Role Phone Mary Flores MD Primary Care Provider [phone] Encounter Details Date Type Department Care Team (Late st Contact Info) Description 09/12/2023 Orders Only [facility] MEDICINE [address] [place] [address] ProviderElliott MD Social History Tobacco Use Types Packs/Day Years Used Date Smoking Tobacco: Never Smokeless Tobacco: Never Alcohol Use Standard Drinks/Week Comments Never 0 (1 standard drink = 0.6 oz pur e alcohol) Housing Stability Answer Date Recorded What is your housing situation today? I have toña nancy 02/24/[address] you li [...] AM EDT documented as of this encounter Plan of Treatment Not on file documented as of this encounter Procedures Procedure Name Priority Date/Time Associated Diagnosis Comments HM COLONOSCOPY Routine 01/19/2021 8:45 AM EDT documented in this encounter Results * Hm Colonoscopy (01/19/2021 8:45 AM EDT) us Historical Provider HEALTH MAINTENANCE Final Result documented in this encounter Visit Diagnoses Not on filedocumented in this encounter Care Teams Safety Teacher Relationship Specialty Start Date End Date Mary Flores MD [address] [place] [address] PCP - General Family Medicine 01/05/22 documented as of this encounter
--- OUTSIDE RECORDS SUMMARY | 2024-06-10 12:34 | XMS_ITS | Encounter Summary ---
Author Organization [facility] Address [address] [place] [address] Care Team Providers Care Tooth Grinder Name Role Phone Mary Flores MD Primary Care Provider [phone] Encounter Details Date Type Department Care Team (Late st Contact Info) Description 08/01/2022 Orders Only [facility] MEDICINE [address] [place] [address] Mary Flores MD [address] [place] [address] Blurry vision (Primary Dx) Social History Tobacco Use Types Packs/Day Years Used Date Smoking Tobacco: Never Assessed Comments Unknown Sex and Gender Information Value Date Recorded Sex Assigned at Female 03/11/2022 10:17 AM EDT Legal Sex Female 10:17 AM EDT Gender Identity Female 03/11/2022 10:17 AM EDT Sexual Orientation Straight 03/11/2022 10 :17 AM EDT documented as of this encounter Plan of Treatment Not on file documented as of this encounter Visit Diagnoses Diagnosis Blurry vision- Primary Other specified visual disturbances documented in this encounter Care Teams Tooth Grinder Relationship Specialty Start Date End Date Mary Flores MD [address] [place], [place] [id number] PCP - General Family Medicine 01/05/22 documented as of this encounter
--- OUTSIDE RECORDS SUMMARY | 2024-06-10 12:34 | XMS_ITS | Encounter Summary ---
Author Organization [employer] Address [address] [place] [address] Care Team Providers Care Recruitment Consultant Name Role Phone Mary Flores MD Primary Care Provider [phone] Encounter Details Date Type Department Care Team ([facility] st Contact Info) Description 08/27/2022 Orders Only [facility] MEDICINE [address] [place] [address] Mary Flores MD [address] [place] [address] Social History Tobacco Use Types Packs/Day Years Used Date Smoking Tobacco: Never Smokeless Tobacco: Never Alcohol Use Standard Drinks/Week Comments Never 0 (1 standard drink = 0.6 oz pur e alcohol) Depression Answer Date Recorded Patient Health Questionnaire-2 Score 0 08/23/2022 Comments Unknown Sex and Gender Information Value Date Recorded Sex Assigned at Female 03/11/2022 10:17 AM EDT Legal Sex Female 10:17 AM EDT Gender Identity Female 03/11/2022 10:17 AM EDT Sexual Orientation Straight 03/11/2022 10 :17 AM EDT COVID-19 Exposure Response Date Recorded In the last 10 days, have yo u been in contact with someone who was confirmed or suspected to have Coronavirus/COVID-19? No / Unsure 08/29/2022 7:56 AM EDT documented as of this encounter Plan of Treatment Not on file documented as of this encounter Visit Diagnoses Not on filedocumented in this encounter Care Teams Recruitment Consultant Relationship Specialty Start Date End Date Mary Flores MD [address] [place] [id number] PCP - General Family Medicine 01/05/22 documented as of this encounter
--- OUTSIDE RECORDS SUMMARY | 2024-06-10 12:34 | XMS_ITS | Encounter Summary ---
Author Organization [employer] [facility] Address [address] [place] [address] Care Team Providers Care Sdet Name Role Phone Mary Flores MD Primary Care Provider [phone] Encounter Details Date Type Department Care Team (Latest Contact Info) Description 01/29/2021 Abstract [facility] CONVERSION[facility] Dental, Provider, DDS Social History Tobacco Use Types Packs/Day Years [...] on filedocumented in this encounter Care Teams Sdet Relationship Specialty Start Date End Date Mary Flores MD [address] [place] [address] PCP - General Family Medicine 01/05/22 documented as of this encounter
--- OUTSIDE RECORDS SUMMARY | 2024-06-10 12:34 | XMS_ITS | Encounter Summary ---
Author Organization [employer] Address [address] [place] [address] Care Team Providers Care Parts Administrator Name Role Phone Mary Flores MD Primary Care Provider Reason for Visit * Reason Onset Date Comments Durable Medical Equipment 05/27/2024 Encounter Details Date Type Department Care Team ([facility] st Contact Info) Description 05/27/2024 Telephone [facility] MED[facility]INE [address] [place] [id number] Mary Flores MD [address] [place] [address] Durable Medical Equipment Social History Tobacco Use Types Packs/Day Years Used Date Smoking Tobacco: Never Smokeless Tobacco: Never Alcohol Use Standard Drinks/Week Comments Never 0 (1 standard drink = 0.6 oz pur e alcohol) Depression Answer Date Recorded Patient Health Questionnaire-9 Score 7 11/10/2023 Patient Health Questionnaire-9 Score 7 11/10/2023 Last PHQ-9: Questionnaire Data Not on file 0 11/10/2023 Housing Stability Answer Date Recorded What is your housing situation today? I have toña cruz 02/24/[address] you li [...] Answer Date Recorded Patient Health Questionnaire-2 Score 1 11/10/2023 Comments Unknown Sex and Gender Information Value Date Recorded Sex Assigned at Female 03/11/2022 10:17 AM EDT Legal Sex Female 10:17 AM EDT Gender Identity Female 03/11/2022 10:17 AM EDT Sexual Orientation Straight 03/11/2022 10 :17 AM EDT documented as of this encounter Miscellaneous Notes * Telephone Encounter - Richard Rodriguez - 05/27/2024 10:57 AM EST Tc from Daughter requesting bed pads , wipes , diapers size small. documented in this encounter Plan of Treatment Not on file documented as of this encounter Visit Diagnoses Not on filedocumented in this encounter Additional Health Concerns Assessment Noted Time PHQ-9 Depression Total Score: 7 11/10/19 24 2:30 PM EDT documented as of this encounter Care Teams Parts Administrator Relationship Specialty Start Date End Date Mary Flores MD [address] [place] [address] PCP - General Family Medicine 01/05/22 documented as of this encounter
--- OUTSIDE RECORDS SUMMARY | 2024-06-10 12:34 | XMS_ITS | Encounter Summary ---
Author Organization [employer] [facility] Address [address] [place] [address] [address] [place] [address] Care Team Providers Care Marketing Producer Name Role Phone Mary Flores MD Primary Care Provider [phone] Reason for Visit * Reason Onset Date Comments Referral 08/01/2022 Encounter Details Date Type Department Care Team ([facility] st Contact Info) Description 08/01/2022 Telephone [facility] MEDICINE [address] [place] [address] Mary Flores MD [address] [place] [address] Referral Social History Tobacco Use Types Packs/Day Years Used Date Smoking Tobacco: Never Assessed Comments Unknown Sex and Gender Information Value Date Recorded Sex Assigned at Female 03/11/2022 10:17 AM EDT Legal Sex Female 10:17 AM EDT Gender Identity Female 03/11/2022 10:17 AM EDT Sexual Orientation Straight 03/11/2022 10 :17 AM EDT documented as of this encounter Miscellaneous Notes * Telephone Encounter - Alvino Boston - 08/01/2022 1:07 PM EDT Tc from pt requesting a referral for [facility]. Please contact pt at [phone] vietnamese Speaker documented in this encounter Plan of Treatment Not on file documented as of this encounter Visit Diagnoses Not on filedocumented in this encounter Care Teams Marketing Producer Relationship Specialty Start Date End Date Mary Flores MD [address] [place] [address] PCP - General Family Medicine 01/05/22 documented as of this encounter
--- OUTSIDE RECORDS SUMMARY | 2024-06-10 12:34 | XMS_ITS | Encounter Summary ---
Author Organization [employer] [facility] Address [address] [place] [address] Care Team Providers Care Private Branch Exchange Repairer Name Role Phone Mary Flores MD Primary Care Provider [phone] Reason for Visit * Reason Comments Med Refill Encounter Details Date Type Department Care Team (Late st Contact Info) Description 08/15/2022 Refill [facility] [address] [place], [place] [phone] Keri Ochoa MD [address] [place], [place] [phone] Social History Tobacco Use Types Packs/Day Years [...] suspected to have Coronavirus/COVID-19? No / Unsure 08/15/2022 8:51 AM EDT documented as of this encounter Plan of Treatment Not on file documented as of this encounter Visit Diagnoses Not on filedocumented in this encounter Care Teams Private Branch Exchange Repairer Relationship Specialty Start Date End Date Mary Flores MD [address] [place] [phone] PCP - General Family Medicine 01/05/22 documented as of this encounter
--- OUTSIDE RECORDS SUMMARY | 2024-06-10 12:34 | XMS_ITS | Clinical Summary ---
Author Organization [facility] Address [address] [address] Care Team Providers Care Bead Filler Name Role Phone Frances Fowler RN Primary Care Provider Unavaila ble Allergies Active Allergy Reactions Criticality Noted Date Comments Morphine 03/14/2021 Medications Incruse Ellipta 62.5 MCG/INH aerosol powder INHALE 1 PUFF EVERY DAY AT THE SAME TIME 02/12/2021 Active traMADol (ULTRAM) 50 MG tablet Take 50 mg by mouth every 8 (eight) hours if needed 02/09/2021 Active tamsulosin (FLOMAX) 0.4 MG 24 hr capsule Take 0.4 mg by mouth 02/12/2021 Active Daliresp 500 MCG tablet Take 1 tablet by mouth 02/27/2021 Active predniSONE (DELTASONE) 20 MG tablet TAKE 3 TABLETS BY MOUTH ONCE DAILY FOR 4 DAYS. THEN TAKE 2 TABLETS BY MOUTH ONCE DAILY FOR 4 DAYS. THEN TAKE 1 TABLET BY MOUTH ONCE DAILY FOR 2 DAYS. 12/21/2020 Active Creon 61376-16784 units capsule TAKE 1 CAPSULE BY MOUTH FOUR TIMES DAILY BEFORE MEALS AND AT BEDTIME. TAKE WITH MEALS AND SNACKS. 12/27/2020 Active omeprazole (PriLOSEC) [address] capsule Take 20 mg by mouth 02/12/2021 Active naproxen (NAPROSYN) 500 MG tablet TAKE 1 TABLET BY MOUTH EVERY TWELVE HOURS WITH FOOD 02/27/2021 Active montelukast (SINGULAIR) 10 MG tablet Take 10 mg by mouth at bed time 02/12/2021 Active SM Fiber Laxative 500 MG tablet TAKE 2 TABLETS BY MOUTH ONCE DAILY AT NOON 02/12/2021 Active Melatonin 5 MG tablet Take 2 tablets by mouth every night 02/12/2021 Active loratadine (CLARITIN) 10 MG tablet Take 10 mg by mouth 02/12/2021 Active lisinopril 40 MG tablet Take 40 mg by mouth 02/12/2021 Active levoFLOXacin (LEVAQUIN) 500 MG tablet TAKE 1 TABLET BY MOUTH DAILY FOR 14 DAYS 12/29/2020 Active hydrALAZINE 50 MG tablet TAKE 1 TABLET BY MOUTH TWICE DAILY IN THE MORNING AND IN THE EVENING WITH FOOD 12/13/2020 Active furosemide (LASIX) 20 MG tablet Take 20 mg by mouth 12/11/2020 Active gabapentin (NEURONTIN) 300 MG capsule TAKE 1 CAPSULE BY MOUTH TWICE DAILY IN THE MORNING AND AT NOON and TAKE 2 CAPSULES EVERY DAY IN THE EVENING WITH MEALS 02/12/2021 Active dilTIAZem CD (CARDIZEM CD) 240 MG 24 hr capsule Take 240 mg by mouth 02/12/2021 Active ergocalciferol 1.25 MG (82870 UT) capsule TAKE 1 CAPSULE BY MOUTH ONCE WEEKLY ON Friday02/12/2021 Active Breo Ellipta 200-25 MCG/INH aerosol powder Inhale 1 puff 1 (one) time each day 02/12/2021 Active atorvastatin (LIPITOR) 10 MG tablet Take 10 mg by mouth at bed time 02/12/2021 Active carvedilol (COREG) 6.25 MG tablet TAKE 1 TABLET BY MOUTH TWICE DAILY IN THE MORNING AND IN THE EVENING WITH FOOD 02/12/2021 Active cyclobenzaprine (FLEXERIL) 10 MG tablet Take 10 mg by mouth at bed time 02/27/2021 Active Acetaminophen Extra Strength 500 MG tablet TAKE 1 TO 2 TABLETS BY MOUTH EVERY 8 HOURS NEEDED 12/21/2020 Active aspirin (ST BERNARDO) 81 MG EC tablet Take 81 mg by mouth 1 (one) time each day Active DULoxetine (CYMBALTA) [address] capsule Take 30 mg by mouth 1 (one) time each day Do not crush or chew. Active Active Problems Problem Noted Date Diagnosed Date Essential (primary) hypertension 03/14/2021 Chronic obstructive pulmonary disease 03/14/2021 Asthma 01/25/2014 Social History Tobacco Use Types Packs/Day Years Used Date Smoking Tobacco: Never Assessed Comments Unknown Sex and Gender Information Value Date Recorded Sex Assigned at Not on file Legal Sex Female 5:17 PM EST Gender Identity Not on file Sexual Orientation Not on file Last Filed Vital Signs Vital Sign Reading Time Taken Comments Blood Pressure 129/70 03/14/2021 2:57 PM EDT Pulse 67 03/14/2021 2:57 PM EDT Temperature - - Respiratory Rate - - Oxygen Saturation 97% 03/14/2021 2:57 PM EDT Inhaled Oxygen Concentration - - Weight 90.8 kg (200 lb 3.2 oz) 03/14/2021 2:57 P M EDT Height - - Body Mass Index - - Plan of Treatment Health Maintenance Due Date Last Done Comments Breast Cancer Screening 1950 Colorectal Cancer Screening: Annual FOBT 1998 Colorectal Cancer Screening: Colonoscopy 1998 Colorectal Cancer Screening: Sigmoidoscopy 1998 Pneumococcal Vaccine: 65+ Ye ars (1 of 1 - PCV) 2014 Influenza Vaccine (#1) 2024 Hepatitis B Vaccine Aged Out No longe r eligible based on patient's age to complete this topic Insurance PLAN DUAL ELIG PLAN DUAL ELIG Care Teams Bead Filler Relationship Specialty Start Date End Date Frances Fowler RN PCP - General Family Medicine 11/09/20
--- OUTSIDE RECORDS SUMMARY | 2024-06-10 12:34 | XMS_ITS | Data Portability ---
Author Organization [facility], [place] - [facility] Address [address] [place] [phone] Care Team Providers Care Stock Driver Name Role Phone HIM CCA Referring Provider [phone] Assessment Encounter Date Assessment Date Assessment LastModified by Organization Details LastModified Time 08/21/2023 08/21/2023 I provided real -time medical direction via phone for this encounter, and was available for additional phone based assistance as needed. I have reviewed and agree with the Assessment and Plan as documented by the Supervisor [employer]. We discussed the diagnostic uncertainty of home visits and the risk associated with this. In this case the patient and I felt this to be an acceptable and reasonable amount of risk given the benefit of avoiding an ED visit. Via motorcycle mechanic apprentice, the patient given the opportunity to ask questions. Advised to follow-up with PCP tomorrow if develops CP/severe SOB/turning blue/uncontrolle d n/v/d or black/bloody emesis or stool/ AMS/ syncope/ hi fever unresponsive to APAP to call 911- verbalized understanding of instruction [email or web address] Not available 08/21/2023 11:52:46 Plan of Treatment Reminders Order Date Submit Date Provider Last Modified By Organization Details Last Modified Time Details Appointments None recorded. Lab BMP, serum or plasma 2023 024 [email or web address] 0 [facility], [address] [place] [address], [phone], 4 11:57:22 rapid SARS CoV 2 Ag, QL IA, respiratory specimen 2023 024 [email or web address] 0 [facility], [address] [place] [address], [phone], 4 11:57:26 rapid flu (A+B) 2023 024 [email or web address] 0 [facility], [address] [place] [address], [id number], 11:57:27 Referral None recorded. Procedures None recorded. Surgeries None recorded. Imaging None recorded. Medication Orders ondansetron 4 mg disintegrat ing tablet 2023 [facility], [address] [place] [address], [id number], 4 14:03:53 ipratropium 0.5 mg-albutero l 3 mg (2.5 mg base)/3 mL nebulizatio n soln 2023 [email or web address] 0 Not available 11:57:22 prednisone 20 mg tablet 2023 [email or web address] 0 Not available 11:57:22 prednisone 20 mg tablet 2023 [facility], [address] [place] [address], [id number], 4 12:59:13 Tylenol Arthritis Pain 650 mg tablet,exte nded release 2023 [facility], [address] [place] [address], [id number], 4 14:44:00 benzonatate 200 mg capsule 2023 [facility], [address] [place] [address], [id number], 4 11:39:43 Patient TargetsNo targets recorded. Patient InstructionsNo instructions recorded. Reason for Referral None Reported. Results Created Date Observation Date Name Description Value Unit Range Abnormal Flag Note LastModifiedBy Organization Detail LastModifiedTime 08/21/19 24 08/21/2023 BMP, serum or plasm a BUN 18 Not Available [facility] [address] [place] [address], [phone], 08/21/2023 11:23:37 08/21/19 24 08/21/2023 BMP, serum or plasm a Ca Ionize d calckumaru m 1.21 Not Available Main - [address], [phone], 08/21/2023 11:23:37 08/21/19 24 08/21/2023 BMP, serum or plasm a CI- 107 Not Available Main - [facility] [address], [address], 08/21/2023 11:23:37 08/21/19 24 08/21/2023 BMP, serum or plasm a CRE 0.54 Not Available [facility] - [facility] [address], [address], 08/21/2023 11:23:37 08/21/19 24 08/21/2023 BMP, serum or plasm a GLU 89 Not Available [facility] - [facility] [address], [address], 08/21/2023 11:23:37 08/21/19 24 08/21/2023 BMP, serum or plasm a K+ 3.9 Not Available Main - [facility] [address], [address], 08/21/2023 11:23:37 08/21/19 24 08/21/2023 BMP, serum or plasm a Na+ 143 Not Available Main - [facility] [address], [phone], 08/21/2023 11:23:37 08/21/19 24 08/21/2023 BMP, serum or plasm a tCO2 26.4 Not Available Main - [facility] [address], [address], 08/21/2023 11:23:37 08/21/19 24 08/21/2023 rapid SARS CoV 2 Ag, QL IA, respi rator y speci men rapid SARS CoV 2 Ag, QL IA, respiratory specimen negati ve Not Available [facility] ed [address] [place] [address], [phone], 08/21/2023 11:23:43 08/21/19 24 08/21/2023 rapid flu (A+B) Flu negati ve Not Available [facility] ed [address] [place], [phone], 08/21/2023 11:23:44 Result Notes None recorded. Medical Equipment None Reported. Allergies Allergen ID Allergen Name Allergen Category Reaction Reaction Severity Criticality Documentation Date Start Date Code Code System Note Provider Name and Address Organization Details Recorded Time 4854 morphine medicatio n Not available Not available Not available 08/21/2023 7052 RxNorm Not Available [facility] - production 04:14:38 Medications Name Sig Start Date Stop Date Status Note LastModified by Organization Details LastModified Time pulse oximet airial [id number] USE DIRECTED EVERY DAY IN THE MORNING active Not Available Not Available No t Available metformin 500 mg tablet TAKE 1 TABLET BY MOUTH EVERY DAY IN THE MORNING active Not Available Not Available No t Available imipramine 50 mg tablet active Not Available Not Available Not Available carvedilol 25 mg tablet TOME FERNY TABLETA DOS VECES AL D A CON ALIMENTO active Not Available Not Available No t Available carvedilol 6.25 mg tablet TOME FERNY TABLETA DOS VECES AL D A CON ALIMENTO active Not Available Not Available No t Available carvedilol 12.5 mg tablet TAKE 1 TABLET BY MOUTH TWICE DAILY WITH FOOD active Not Available Not Available No t Available ipratropium 0.5 mg-albuterol 3 mg (2.5 mg base)/3 mL nebulization soln Inhale 3 mL by nebulizatio n route. 2023 active Not Available Not Available Not Avai lable nabumetone 750 mg tablet TOME FERNY TABLETA DOS VECES AL D A active Not Available Not Available No t Available clindamycin HCl 300 mg capsule TOME FERNY C PSULA AKANKSHA VECES AL D A active Not Available Not Available No t Available albuterol sulfate 2.5 mg/3 mL (0.083 %) solution for nebulization INHALE 1 AMPULE USING A NEBULIZER EVERY 4 HOURS NEEDED FOR WHEEZING OR SHORTNESS OF BREATH active Not Available Not Available No t Available aspirin 325 mg tablet FARRAH FERNY TABLETA DIARIA. active Not Available Not Available No t Available benzonatate 200 mg capsule TAKE 1 CAPSULE THREE TIMES DAILY NEEDED active Not Available Not Available No t Available diltiazem CD 240 mg capsule,exte nded release 24 hr TAKE 1 CAPSULE BY MOUTH EVERY DAY IN THE MORNING active Not Available Not Available No t Available famotidine 40 mg tablet FARRAH FERNY TABLETA EN LA NOCHE ANTES DE ACOSTARSE active Not Available Not Available No t Available prednisone 20 mg tablet Take 2 tablets every day by oral route after meal(s) for 4 days. 2023 active Not Available Not Available Not Avai lable alendronate 70 mg tablet take 1 tablet once a week with 6 to 8 oz of water 30 min before first food of day. do not lie down for 30 minutes active Not Available Not Available No t Available clonazepam 0.5 mg tablet TOME FERNY TABLETA DIARIAMENTE EN LA TARDE active Not Available Not Available Not Available naproxen 250 mg tablet TAKE 1 TABLET BY MOUTH TWICE DAILY IN THE MORNING AND AT BEDTIME NEEDED FOR MILD PAIN active Not Available Not Available No t Available acetaminophe n 300 mg-codeine 30 mg tablet FARRAH FERNY TABLETE CADA CUATRO A SEIS HORAS active Not Available Not Available No t Available chlorthalido ne 25 mg tablet TOME FERNY TABLETA TODOS LOS D active Not Available Not Available No t Available amlodipine 5 mg tablet TOME FERNY TABLETA TODOS LOS D active Not Available Not Available No t Available ciprofloxaci n 500 mg tablet TOME FERNY TABLETA 2 VECES AL D A active Not Available Not Available No t Available omeprazole 40 mg capsule,sahara yed release FARRAH FERNY CAPSULA DIARIA EN LAS MANANAS active Not Available Not Available Not Available Sudogest 30 mg tablet TAKE 1 TABLET BY MOUTH EVERY 4 HOURS NEEDED FOR CONGESTION FOR UP TO 10 DAYS active Not Available Not Available No t Available spironolacto ne 25 mg tablet TOME FERNY TABLETA TODOS LOS D active Not Available Not Available No t Available acetaminophe n ER 650 mg tablet,exten ded release TAKE 1 TABLET BY MOUTH EVERY 6 HOURS NEEDED active Not Available Not Available No t Available famotidine 20 mg tablet FARRAH FERNY TABLETA DIARIAMENTE EN LA TARDE active Not Available Not Available Not Available Ear Wax Removal Kit 6.5 % drops PLACE 5 TO 10 DROPS INTO THE AFFECTED EAR(S) TWICE DAILY FOR 4 DAYS active Not Available Not Available N ot Available meclizine 25 mg tablet TAKE 1 TABLET BY MOUTH THREE TIMES DAILY IN THE MORNING, AT NOON, AND AT BEDTIME NEEDED FOR DIZZINESS active Not Available Not Available No t Available amlodipine 10 mg tablet FARRAH FERNY TABLETA DIARIA EN LAS MANANAS active Not Available Not Available Not Available pantoprazole 40 mg tablet,delay ed release FARRAH FERYN TABLETA DIARIAMENTE ANTES DEL DESAYUNO active Not Available Not Available No t Available simvastatin 20 mg tablet TOME FERNY TABLETA TODOS LOS D EN LA NOCHE active Not Available Not Available No t Available docusate sodium 100 mg capsule active Not Available Not Available N ot Available gabapentin 300 mg capsule TAKE 1 CAPSULE BY MOUTH WITH BREAKFAST AND LUNCH AND 2 CAPSULE WITH SUPPER active Not Available Not Available Not Available omeprazole 20 mg capsule,sahara yed release active Not Available Not Available Not Available aspirin 81 mg chewable tablet CHEW AND SWALLOW 1 TABLET EVERY MORNING active Not Available Not Available No t Available montelukast 10 mg tablet TAKE 1 TABLET BY MOUTH EVERY DAY active Not Available Not Available No t Available bisacodyl 5 mg tablet,delay ed release active Not Available Not Available N ot Available hydrochlorot hiazide 25 mg tablet TAKE 1 TABLET BY MOUTH EVERY DAY IN THE MORNING active Not Available Not Available No t Available mupirocin 2 % topical ointment APLICAR AL AREA NASAL DOS VECES AL EILEEN active Not Available Not Available No t Available gabapentin 100 mg capsule FARRAH FERNY CAPSULA DIARIA AL ACOSTARSE EN LA NOCHE active Not Available Not Available Not Available estradiol 0.01% (0.1 mg/gram) vaginal cream INSERT 1 GRAM VAGINALLY EVERY WEEK DIRECTED active Not Available Not Available Not Available albuterol sulfate HFA 90 mcg/actuatio n aerosol inhaler INHALE 2 PUFFS BY MOUTH EVERY 4 TO 6 HOURS NEEDED FOR WHEEZING OR SHORTNESS OF BREATH active Not Available Not Available No t Available betamethason e dipropionate 0.05 % topical ointment APPLY TO THE AFFECTED AREA(S) ON HANDS DAILY DIRECTED FOR ECZEMA active Not Available Not Available N ot Available lisinopril 40 mg tablet FARRAH FERNY TABLETA DIARIA active Not Available Not Available No t Available ondansetron 4 mg disintegrati ng tablet DISSOLVE 1 TABLET UNDER THE TONGUE EVERY 8 HOURS NEEDED active Not Available Not Available No t Available dicyclomine 10 mg capsule TOME FERNY CAPSULA DOS VECES AL EILEEN active Not Available Not Available No t Available Pain Reliever Plus 250 mg-250 mg-65 mg tablet TAKE 1 TABLET BY MOUTH EVERY 6 HOURS NEEDED FOR HEADACHE active Not Available Not Available No t Available metaxalone 800 mg tablet FARRAH FERNY TABLETA DIARIA AL ACOSTARSE EN LA NOCHE active Not Available Not Available Not Available cyclobenzapr ine 5 mg tablet TAKE 1 TABLET BY MOUTH THREE TIMES DAILY FOR 10 DAYS active Not Available Not Available Not Available duloxetine 30 mg capsule,sahara yed release TAKE 1 CAPSULE BY MOUTH EVERY DAY active Not Available Not Available No t Available hydrochlorot hiazide 12.5 mg tablet TOME FERNY TABLETA TODOS LOS D EN LA MANANA active Not Available Not Available No t Available diclofenac 1 % topical gel APLICAR 4 GRAMOS DOS VECES AL EILEEN EN AMBAS RODILLAS active Not Available Not Available No t Available melatonin 5 mg tablet TAKE 2 TABLETS BY MOUTH AT BEDTIME active Not Available Not Available No t Available GaviLyte-G 236 gram-22.74 gram-6.74 gram-5.86 gram oral solution active Not Available Not Available Not Available Creon 24,000-76,00 0-120,000 unit capsule,sahara yed release active Not Available Not Available Not Available Vitamin D3 50 mcg (2,000 unit) capsule TAKE 1 CAPSULE BY MOUTH EVERY DAY active Not Available Not Available No t Available roflumilast 500 mcg tablet TAKE 1 TABLET BY MOUTH EVERY DAY active Not Available Not Available No t Available Linzess 290 mcg capsule TAKE 1 CAPSULE BY MOUTH EVERY MORNING active Not Available Not Available No t Available Spiriva Respimat 2.5 mcg/actuatio n solution for inhalation INHALE 2 PUFFS BY MOUTH EVERY DAY active Not Available Not Available No t Available Incruse Ellipta 62.5 mcg/actuatio n powder for inhalation INHALE 1 PUFF EVERY DAY AT THE SAME TIME active Not Available Not Available No t Available Breo Ellipta 200 mcg-25 mcg/dose powder for inhalation INHALE 1 PUFF BY MOUTH EVERY DAY AT THE SAME TIME active Not Available Not Available No t Available Vitals Date Recorded Body weight Body temperature Respiratory rate Heart rate Oxygen saturation Oxygen saturation in Arterial blood by Pulse oximetry Oxygen saturation Oxygen saturation in Arterial blood by Pulse oximetry Heart rate Heart rate Systolic blood pressure Diastolic blood pressure Systolic blood pressure Diastolic blood pressure Systolic blood pressure Diastolic blood pressure Provider Name and Address Organization Details Last Updated DateTime 4 01014.2 16 g 97.8 [degF] 16 /min 76 /min 95 % 95 % 99 % 99 % 70 /min 70 /min 158 mm[Hg] 112 mm[Hg] 150 mm[Hg] 82 mm[Hg] 150 mm[Hg] 70 mm[Hg] Not Available [facility] - production 4 11:43:04 Social History None recorded. Functional Status None recorded. Mental Status None recorded. Family History Nothing Reported. Medical History No medical history recorded. Gynecological HistoryNo gynecological history recorded. Obstetrics History GPAL:G 0 P 0 0 0 0 Past Encounters Encounter ID Performer Location Encounter Start Date Encounter Closed Date Diagnosis/Indication Diagnosis SNOMED-CT Code Diagnosis ICD10 Code Diagnosis Note [id number] Genevieve Stover MD [facility] [address] [place] [phone] 08/21/2023 10:58:16 08/21/2023 14:52:00 Upper respiratory infection 01682406 J06.9 With COPD residual from influenza. Patient has a congested no-product ghassan cough and is not febrile so I do not think antibiotic s are indicated at this point Due to wheezing restart prednisone -short burst. status post DuoNebs increased aeration, patient feeling better BP 150/82 heart rate: 70 unchanged/ oxygen saturation 99%Advised to increase her albuterol nebulizer to 4 times a day while sick/follo w-up with PCP tomorrow/R ESTDiscuss ed with patient risk/ benefits Tessalon. She would like a prescripti on for the antitussiv e he is aware it is not coveredPat ient is on Breztri so do not want to maintain on ipratropiu m due to potential cardiac and blood pressure effects. Patient is also taking naproxen which may be interferin g with her antihypert ensives. Advised to stop naproxen and take Tylenol only while ill and to discuss with PCP-Rx sent for Tylenol as patient is almost out. Nausea and vomiting 1692 [id number] R11.2 denies current nausea-jus t has no appetite-o ffered prescripti on for Zofran in case. She declines any now but will send prescripti on./Expres sed, Via interprete r, the importance of at least staying well-hydra arsenio even if she does not have an appetite-s he verbalized understand ing of instructio ns Health Concerns Section Related Observation LastModified by Organization Detai ls LastModified Time None Recorded Concern Status LastModified by Organization Details LastModified Time None Recorded Advance Directives Directive None Recorded Payers Encounter Date Sequence Insurance Name Policy Number Policy Briceño Covered Member ID Briceño Member ID Guarantor Name 08/21/2023 1 [facility] - DOS ON OR AFTER 2022 - DUAL ELIGIBLE - CUSTODIAL OPTIONS AND ONE CARE (MEDICARE REPLACEMENT/ADV ANTAGE - HMO) Margarita Ordonez [id number] Margarita Ordonez Notes Date Note Type Note Provider Name and Address Organization Details Recorded Time 08/21/2023 text/html HPI: Call to Margarita Zamora reports continues to have cough, SOB and wheezing. Pt seen at [facility] on 08/12 and dx with Flu A. Per pt completed prednisone 3 days ago. Per pt having to use nebulizer TID. Pt also using inhalers as well. Pt having wheezing as well. SOB on exertion. Pt states cough is dry unable to bring anything up. NO fever. Pt advised of disposition, declines in office appt due to weather. Agrees to [facility] for eval. .................. .................. .................. .................. .................. .................. .................. ............... [facility] Nurse Triage Notes (eRd Ricks): Comments: HPI reviewed SEGMD: As above- hx HTN/COPD/ HLD/ Chronic pain- limited old records available in [place]. LD Tylenol was 3 days ago for headache which resolved. She does take naproxen. She was vomiting yesterday, which resolved she states she has no appetite but she is not currently nauseated. She has had nothing to eat or drink today, thus I will check labs. Yesterday she had some water juice and some chicken soup in the evening........... .................. .................. .................. .................. .................. .................. .................. .... Supervisor [employer] Note From Kun Cruz: Pt co cough without production and sob with exertion and using nebs and inhalers more frequently. Pt was diagnosed flu A 4/. Pt was on prednisone but RX ended 3 days ago. Pt denies NC CP fever diarrhea headache nausea. Pt st did vomit yesterday. Baseline vitals assessed, POc bloodwork unremarkable. Covid flu swab negative. Lungs rhonchi with slight wheezing. Afebrile. [facility] contacted and duo neb, 40mg prednisone given, RX for prednisone, benzonatate,zofran and Tylenol called in. Pt advised to follow up with pcp tomorrow. Pt advised to increase neb treatments from 3 xper day to 4 x? s per day. Pt advised to discontinue use of naprasin( SEGMD: Naprosyn) while ill due to increased BP. Pt education on signs indicating the ER. Supervisor [employer] Allergies: Morphine .................. .................. .................. .................. .................. .................. .................. ............... Disposition: Fulfilled Genevieve Stover MD [address] [facility],[address] [facility], [place], [phone], CHARANJIT YEUNG 08/21/2023 12:03:44 OBGyn Episode No OBEpisode recorded.
--- OUTSIDE RECORDS SUMMARY | 2024-06-10 12:34 | XMS_ITS | Clinical Summary ---
Author Organization [employer] Address [address] [facility] [address] [place] [address] Care Team Providers Care Skylights Assembler Name Role Phone Mary Flores MD Primary Care Provider [phone] Allergies Active Allergy Reactions Criticality Noted Date Comments Morphine Rash Low 09/29/2019 Medications albuterol (2.5 MG/3ML) 0.083% nebulizer solution INHALE 1 AMPULE USING A NEBULIZER EVERY 4 HOURS NEEDED FOR WHEEZING OR SHORTNESS OF BREATH 03/28/20 22 Active albuterol 108 (90 Base) MCG/ACT inhaler INHALE 2 PUFFS BY MOUTH EVERY 4 TO 6 HOURS NEEDED 03/28/20 22 Active Linzess 290 MCG capsule TAKE 1 CAPSULE BY MOUTH EVERY MORNING 03/28/20 22 Active montelukast (Singulair) 10 MG tablet TAKE 1 TABLET BY MOUTH EVERY DAY 03/28/20 22 Active Daliresp 500 MCG tablet TAKE 1 TABLET BY MOUTH EVERY DAY 03/28/20 22 Active Blood Pressure kit Use as directed for blood pressure 09/20/19 21 Active betamethasone dipropionate (Diprolene) 0.05 % ointment APPLY TO THE AFFECTED AREA(S) OF HANDS DAILY DIRECTED FOR ECZEMA 15 g 1 08/28/19 23 Active metFORMIN (Glucophage) 500 MG tablet Take tablet in the morning 90 tablet 3 07/23/19 24 Active alendronate (Fosamax) 70 MG tablet FARRAH FERNY TABLETA SEMANAL. 12 tablet 3 07/23/19 24 Active Spiriva Respimat 2.5 MCG/ACT inhaler 07/15/19 24 Active Misc. Devices (Fingertip Pulse Oximeter) misc 1 each in the morning. 1 each 08/06/19 24 Active naproxen (Naprosyn) 250 MG tablet TAKE 1 TABLET BY MOUTH TWICE DAILY IN THE MORNING AND AT BEDTIME IF NEEDED FOR MILD PAIN 60 tablet 09/12/19 24 Active cholecalciferol (D3 Super Strength) 50 MCG (2000 UT) capsule Take 1 capsule (50 mcg) by mouth Once per day. 30 capsule 5 09/12/19 24 Active GaviLyte-G 236 g solution Active Creon 16595-29002 units capsule TAKE 1 CAPSULE BY MOUTH FOUR TIMES DAILY WITH MEALS OR SNACKS AND AT BEDTIME Active oxyCODONE (Roxicodone) 5 MG immediate release tablet 10/14/19 24 Active imipramine (Tofranil) 50 MG tablet TAKE 2 TABLETS BY MOUTH EVERY DAY AT BEDTIME Active lidocaine (Lidoderm) 5 % patchIndications:T rapezius muscle spasm Apply 1 patch topically Once per day. Remove & discard patch within 12 hours or as directed by MD. 30 patch 3 11/10/19 24 Active guaiFENesin-codein e (Robitussin-AC) 100-10 MG/5ML syrup Take 5 mL by mouth at bedtime. 237 mL 11/10/19 24 Active atorvastatin (Lipitor) 10 MG tabletIndications: Other hyperlipidemia Take 1 tablet (10 mg) by mouth at bedtime. 90 tablet 3 11/11/19 24 Active fluticasone (Flonase) 50 MCG/ACT nasal sprayIndications:N sabino congestion Administer 1-2 sprays into each nostril Once per day. Shake gently. Before first use, prime pump. After use, clean tip and replace cap. 48 g 02/03/20 24 Active ipratropium-albute rol (Duo-Neb) 0.5-2.5 mg/3 mL nebulizer solutionIndication s:Chronic obstructive pulmonary disease, unspecified COPD type (CMS/HCC) Take 3 mL by nebulization Every 4-6 hours as needed for wheezing. 75 mL 2 02/03/20 24 Active Alcohol Swabs ([employer] Alcohol Prep Pads) 70 % pads 02/07/20 24 Active Bisacodyl EC 5 MG EC tablet TAKE 1 TABLET BY MOUTH EVERY DAY IN THE MORNING AND TAKE 2 TABLETS BY MOUTH EVERY DAY AT BEDTIME 01/27/20 24 Active Blood Glucose Monitoring Suppl (FreeStyle [place] Lite) w/Device kit 02/07/20 Active cetirizine (ZyrTEC) 10 MG tablet Take 1 tablet by mouth Once per day. 01/19/20 Active docusate sodium (Colace) 100 MG capsule Take 1 capsule by mouth 2 times daily. 01/27/20 Active budesonide-formote rol (Symbicort) 160-4.5 MCG/ACT inhaler Inhale 2 puffs every 12 (twelve) hours. Rinse mouth with water and expectorate after each dose to prevent oral/esophageal candidiasis or fungal infection. 08/05/19 Active FreeStyle lancets 02/07/20 Active lisinopril 40 MG tablet Take 1 tablet (40 mg) by mouth Once per day. 90 tablet 04/22/20 Active omeprazole (PriLOSEC) [address] capsule Take 1 capsule by mouth Once per day. 12/04/19 Active Active Problems Problem Noted Date Diagnosed Date Obesity, morbid 02/24/2024 Assessment & Plan (02/24/2024 12:28 PM EDT): Consider pulm rehab, graduated return to exercise to support weight loss Influenza A 11/18/2023 Assessment & Plan (11/18/2023 6:40 PM EDT): -nebulizer solution given in clinic today for wheezing with positive results -symptomatic treatment advised as she is out of the treatment window for tamiflu -complete full course of prednisone tablets -advised increase fluid intake and rest -Sore throat: salt water gargles, drink warm liquids, suck lozenge, 1 tablespoon of honey TID -encouraged use of inhalers as prescribed -rtc if symptoms worsen -elevated BP in clinic likely due to coughing spells during measurement. Advised continued monitoring at home Depression, recurrent 11/11/2023 Trapezius muscle spasm 11/11/2023 Assessment & Plan (11/11/2023 10:04 AM EDT): Trial lidocaine patches Warm heat, gentle massage Mixed stress and urge incontinence 08/10/2023 Assessment & Plan (08/10/2023 4:44 PM EDT): Start with pampers, wipes, bedpads prescriptions History of skin cancer 08/10/2023 Assessment & Plan (08/10/2023 4:44 PM EDT): Referral to derm Blurry vision, bilateral 08/10/2023 Assessment & Plan (08/10/2023 4:45 PM EDT): Refer to optometry Enuresis, nocturnal only 08/10/2023 Assessment & Plan (08/10/2023 4:46 PM EDT): Will refer for EEG due to the episode, as well as prior tongue biting episode/waking up in blood Chronic superficial gastritis without bleeding 0 07/24/2023 Migraine with aura and witho ut status migrainosus, not intractable 07/24/2023 Obesity (BMI 30-39.9) 07/24/2023 Metabolic syndrome X 07/24/2023 Assessment & Plan (07/24/2023 9:42 AM EDT): Can take Metformin daily for this Essential tremor 05/22/2022 Irritable bowel syndrome with constipation 05/22 Assessment & Plan (11/23/2022 10:32 AM EDT): Continue Linzess 290mg daily and creon Gastroesophageal reflux disease 08/06/2021 Assessment & Plan (05/30/2023 1:31 PM EST): She will bring copies of her exams and tests from [place] Hiatal hernia 08/06/2021 Obstructive sleep apnea syndrome 08/01/2021 Assessment & Plan (11/23/2022 10:18 AM EDT): Counseled to use mask as much as tolerated Goal > 4 hours per night Assessment & Plan (08/23/2022 1:00 PM EDT): Counseled to use mask Will follow up at next visit Gallstone 03/21/2021 Herniated lumbar intervertebral disc 03/06/2021 Assessment & Plan (02/24/2024 12:26 PM EDT): Will prescribe shower chair and detachable shower head for patient safety in the bathroom Hyperlipidemia 12/13/2020 Lung nodule 11/27/2020 Arthritis of both knees 03/22/2020 Osteopenia 03/22/2020 Chronic obstructive pulmonary disease 07/12/2019 Assessment & Plan (02/24/2024 12:29 PM EDT): On Breo inhaler, Daliresp, and JOHANA prn Has nebulizer machine Consider Trelegy/pulm rehab, will reach out to pulm for recommendations Chronic constipation 10/26/2018 Essential hypertension 07/27/2018 Assessment & Plan (02/24/2024 12:30 PM EDT): Reports BP > 140/90 at home after all BP meds held in the hospital for RSV pneumonia Restart Lisinopril daily, wait 2 weeks. If BP still consistently > 140/90, add HCTZ BMP: Cr 0.75, eGFR >60 Lipid Panel: Total chol 152, LDL 77 ASCVD Risk: 40%, on Atorvastatin 10mg EKG: Obtain baseline at f/u - Aerobic exercise to reduce BP. Initial goal of 30 min walk 3-5x/week. Increase as tolerated. - low-sodium diet (goal: <2g/day) and heart healthy diet such as DASH to reduce BP and prevent ASCVD. - Home BP monitoring 1-2 x day with goal of <140/90. - Seek immediate medical attention for chest pain, palpitations, SOB, syncope, or sudden changes in mental status. - Do not change or discontinue current prescriptions without first consulting health care provider Assessment & Plan (11/11/2023 10:03 AM EDT): Reports BP < 140/90 last month at home Continue Lisinopril 40mg daily, hydrochlorothiazide 25mg, Diltiazem 240mg BMP: Cr 0.75, eGFR >60 Lipid Panel: Total chol 152, LDL 77 ASCVD Risk: 40%, on Atorvastatin 10mg EKG: Obtain baseline at f/u - Aerobic exercise to reduce BP. Initial goal of 30 min walk 3-5x/week. Increase as tolerated. - low-sodium diet (goal: <2g/day) and heart healthy diet such as DASH to reduce BP and prevent ASCVD. - Home BP monitoring 1-2 x day with goal of <140/90. - Seek immediate medical attention for chest pain, palpitations, SOB, syncope, or sudden changes in mental status. - Do not change or discontinue current prescriptions without first consulting health care provider Assessment & Plan (07/24/2023 9:40 AM EDT): Reports BP < 140/90 last month at home Continue Lisinopril 40mg daily, hydrochlorothiazide 25mg, Diltiazem 240mg, Carvedilol 12.5mg BID, Spironalactone BMP: Cr 0.75, eGFR >60 Lipid Panel: Total chol 152, LDL 77 ASCVD Risk: on statin EKG: Obtain baseline at f/u - Aerobic exercise to reduce BP. Initial goal of 30 min walk 3-5x/week. Increase as tolerated. - low-sodium diet (goal: <2g/day) and heart healthy diet such as DASH to reduce BP and prevent ASCVD. - Home BP monitoring 1-2 x day with goal of <140/90. - Seek immediate medical attention for chest pain, palpitations, SOB, syncope, or sudden changes in mental status. - Do not change or discontinue current prescriptions without first consulting health care provider Assessment & Plan (11/23/2022 10:31 AM EDT): Reports BP < 140/90 last month at home Continue Lisinopril 40mg daily, hydrochlorothiazide, Diltiazem, Carvedilol Assessment & Plan (08/23/2022 1:01 PM EDT): Not at goal currently Will discuss at followup visit Pneumonia 06/09/2018 Asthma 01/25/2014 Assessment & Plan (07/24/2023 9:39 AM EDT): On Breo inhaler, Daliresp, and JOHANA prn Needs new nebulizer machine, last one stopped working Encounters Date Type Department Care Team Description 05/27/2024 Telephone [facility] [address] [place] [phone] Mary Flores MD Durable Medical Equipment 04/30/2024 10:30 AM EST Office Visit [facility] [address] [place] [address] Jill Anderson, OD Diabetes type 2, no ocular involvement (CMS/HCC) (Primary Dx); Chorioretinal scar of both eyes; Peripheral drusen of left eye; Pseudophakia of both eyes; Presbyopia 04/30/2024 Travel 04/21/2024 Refill [facility] [address] [place] [address] Mayr Flores MD 04/19/2024 Refill [facility] [address] [place] [address] Olga Dillard ANP Nasal congestion 04/14/2024 Telephone [facility] [address] [place] [address] Mary Flores MD telephone call 03/19/2024 Telephone [facility] [address] [place] [address] Nicolasa Ruiz, RN CCA Provider Attestation from Last 3 Months Immunizations Name Administration Dates Next Due Influenza High-dose Quadriva lent Preservative Free 03/14/2021,03/22/2020 Influenza Injectable Quadriv alant Preservative Free IIV4 MDCK 06/09/2018 Influenza, High Dose Seasona l, Preservative Free 03/02/2019,02/01/2017,04/26/2016 Influenza, IIV3, injectable 01/31/2011 Pneumococcal Conjugate PCV 13 03/02/2019 Pneumococcal Conjugate PCV 20 01/19/2024 Pneumococcal Polysaccharide PPSV23 03/22/2020,,04/26/2016 Tdap 03/22/2020,04/26/2016 Zoster, Recombinant 10/02/2020,03/22/2020 Social History Tobacco Use Types Packs/Day Years Used Date Smoking Tobacco: Never Smokeless Tobacco: Never Tobacco Cessation:Counseling Given: Not Answered Alcohol Use Standard Drinks/Week Comments Never 0 [...] Orientation Straight 03/11/2022 10 :17 AM EDT Last Filed Vital Signs Vital Sign Reading Time Taken Comments Blood Pressure 156/82 02/24/2024 10:08 AM EDT Pulse 74 02/24/2024 10:08 AM EDT Temperature 36.2 ??C (97.1 ??F) 02/24/2024 10:08 AM E DT Respiratory Rate 20 02/24/2024 10:08 AM EDT Oxygen Saturation 96% 02/24/2024 10:08 AM EDT Inhaled Oxygen Concentration - - Weight 90.7 kg (200 lb) 02/24/2024 10:08 AM EDT Height 160 cm (5' 3 ) 02/24/2024 10:08 AM EDT Body Mass Index 35.43 02/24/2024 10:08 AM EDT Plan of Treatment Health Maintenance Due Date Last Done Comments CT Colonography 1949 Dental Prophylaxis 1949 Dental X-Ray: Full Mouth 1949 FIT DNA/Cologuard 1949 FIT 1949 FOBT 1950 Sigmoidoscopy 1949 Alcohol/Substance Use Screening 1961 Diabetes: Urine Protein Screening 09/13/2022 09/13/2021 Dental Oral Exam 03/01/2023 08/29/2022 Dental X-Ray: Bitewings 08/31/2023 08/29/2022 COVID-19 Vaccine ( season) 2024 09/15/2020, 08/18/2020 Influenza Vaccine (#1) 2024 , 03/22/2020, 03/02/2019, Additional history exists Colonoscopy 01/20/2024 01/19/2021 Colorectal Cancer Screening 01/20/2024 RSV Patients and Patients Aged 60 years or older (1 - 1-dose 75+ series) 01/25/2024 Diabetes: Hemoglobin A1C 05/12/2024 024, 08/06/2023, 07/23/2023, Additional history exists SDOH Screening 07/14/2024 07/15/2023 Lipid Panel 07/22/2024 07/23/2023, 05/07/2021, 11/09/2020 Depression Screening 11/09/2024 11/10/2023, 11/10/19 Diabetes: Foot Exam 11/09/2024 11/10/2023 Tobacco Screening 05/26/2025 05/26/2024 Eye Exam 04/30/2026 04/30/2024, 12, 04/30/2024, Additional history exists DTaP/Tdap/Td Vaccines (3 - Td or Tdap) 03/22/2030 03/22/2020, 04/26/2016 Zoster Vaccines Completed 10/02/2020, 03/22/2020 Hepatitis C Screening Completed 09/19/2021 Pneumococcal Vaccine: 50+ Years Completed 01/19/2024, 03/22/2020, 03/02/2019, Additional history exists HIB Vaccines Aged Out No longer eligi ble based on patient's age to complete this topic HPV Vaccines Aged Out No longer eligi ble based on patient's age to complete this topic Hepatitis A Vaccines Aged Out No long er eligible based on patient's age to complete this topic Hepatitis B Vaccines Aged Out No long er eligible based on patient's age to complete this topic IPV Vaccines Aged Out No longer eligi ble based on patient's age to complete this topic Meningococcal Vaccine Aged Out No radhika iesha eligible based on patient's age to complete this topic RSV under 20 months Aged Out No longe r eligible based on patient's age to complete this topic Rotavirus Vaccines Aged Out No longer eligible based on patient's age to complete this topic Procedures Procedure Name Priority Date/Time Associated Diagnosis Comments POCT GLYCATED HEMOGLOBIN, TOTAL Routine 11/10/2023 2:27 PM EDT 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, without long-term current use of insulin ([facility]) LIPID PANEL, STANDARD Routine 07/23/2023 3:35 PM EDT 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, without long-term current use of insulin ([facility]) BITEWINGS - 4 RADIOGRAPHIC IMAGES Routine 08/29/2022 8:00 AM EDT Diastema Periodontal disease Encounter for dental examination PERIODIC ORAL EVALUATION - ESTABLISHED PATIENT Routine 08/29/2022 8:00 AM EDT Diastema Periodontal disease Encounter for dental examination ZZZ HISTORICAL HEPATITIS C AB W/REFL TO HCV RNA, QN, PCR Routine 09/19/2021 9:58 AM EDT ALBUMIN, RANDOM URINE W/CREATININE Routine 09/13/2021 2:19 PM EDT HM COLONOSCOPY Routine 01/19/2021 8:45 AM EDT from Last 3 Months or Most Recently Relevant to Health Maintenance Results * POCT HGB A1C (11/10/2023 2:27 PM EDT) Hemoglobin A1C 5.2 4.0 - 6.0 % QC Media Lot # [id number] Lot# Expiration Date ,587 Blood 11/10/2023 2:27 PM EDT Mary Flores MD POINT OF CARE TEST ENTER/EDIT ORDERABLES Final Result * Lipid Panel, Standard (07/23/2023 3:35 PM EDT) Triglycerides 142 <150 mg/dL [facility] Comment:Desirable Triglyceri de: less than 150 mg/dLBorderline High Triglyceride 150-199 mg/dLHigh Triglyceride: 200-499 mg/dLVery High Triglyceride: greater than or equal to 5OO mg/dL Cholesterol 152 <200 mg/dL [facility] Comment:Desirable Cholestero l: less than 200 mg/dLBorderline High Cholesterol: 200-239 mg/dLHigh Cholesterol: greater than 239 mg/dL LDL Cholesterol Calculated 77 <100 mg/dL [facility] Comment:Desirable LDL: less than 100 mg/dLNear Optimal/Above Optimal LDL: 110- 129 mg/dLBorderline High LDL: 130-159 mg/dLHigh LDL: 160-189 mg/dLVery High LDL: greater than or equal to 190 mg/dL HDL Cholesterol 47 >40 mg/dL [facility] Comment:Desirable HDL: great er than 40 mg/dL Note: This HDL assay may give artificially low results in patients with liver disease. Blood Venous blood specimen / Unknown 07/23/2023 3:35 PM EDT 07/23/2023 4:17 PM EDT Mary Flores MD LAB BLOOD ORDERABLES Final Res ult [facility] [address] [place] [address] [phone] * HEPATITIS C AB W/REFL TO HCV RNA, QN, PCR (09/19/2021 9:58 AM EDT) HEPATITIS C ANTIBODY NON-REACT SHANKAR NON-REACT [facility] INDEX 0.01 <1.00 [facility] Comment: ?? HCV antibody was non-reactive. There is no laboratory ?? evidence of HCV infection. ?? In most cases, no further action is required. However, if recent HCV exposure is suspected, a test for HCV RNA (test code 76300) is suggested. ?? For additional information please refer to http://[email or web address] [facility]/faq/[email or web address] (This link is being provided for informational/ educational purposes only.) ?? 09/19/2021 9:58 AM EDT Frances BRIGHT[facility] HISTORICAL/NON ORDERABLE LABS Final Result Performing Organization Address [facility] Phone Number [facility] [address] [place] [address], [place] * ALBUMIN, RANDOM URINE W/CREATININE (09/13/2021 2:19 PM EDT) Microalbumin Urine <0.2 See Note: mg/dL [facility] Comment: Reference Range: ?? Reference Range Not established Microalb/Creat Ratio NOTE <30 mcg/mg creat [facility] Comment: NOTE: The urine albumin value is less than ?? 0.2 mg/dL therefore we are unable to calculate ?? excretion and/or creatinine ratio. ?? The ADA defines abnormalities in albumin excretion as follows: ?? Albuminuria Category ?Result (mcg/mg creatinine) ?? Normal to Mildly increased ?? <30 Moderately increased ? 30-299 ?? Severely increased ? > OR = 300 ?? The ADA recommends that at least two of three specimens collected within a 3-6 month period be abnormal before considering a patient to be within a diagnostic category. Creatinine, Urine 58 20 - 275 mg/dL [facility] 09/13/2021 2:19 PM EDT Frances [facility] LAB URINE ORDERABLES Final Res ult Performing Organization Address [facility] Phone Number [facility] [address] [place] [address], * Hm Colonoscopy (01/19/2021 8:45 AM EDT) Historical Provider MD HEALTH MAINTENANCE Final Result from Last 3 Months or Most Recently Relevant to Health Maintenance Insurance - [facility] MEDICAID STAND ADULT Care Teams Skylights Assembler Relationship Specialty Start Date End Date Mary Flores MD [address] [place] [address] PCP - General Family Medicine 01/05/22
--- OUTSIDE RECORDS SUMMARY | 2024-06-10 12:35 | XMS_ITS | Encounter Summary ---
Author Organization [employer] Address [address] [facility] [address] [place] [address] Care Team Providers Care Paedodontist Name Role Phone Mary Flores MD Primary Care Provider [phone] Reason for Visit * Reason Comments Med Change Request Encounter Details Date Type Department Care Team ([facility] st Contact Info) Description 12/05/2023 Refill [facility] [address] [place], [place] [phone] Tyrel Trivedi MD [address] [place] [address] Social History Tobacco Use Types Packs/Day Years [...] encounter Miscellaneous Notes * Telephone Encounter - Tyrel Trivedi MD - 12/05/2023 2:00 PM EDT Prescribed Cortisporin ear drops instead. documented in this encounter Plan of Treatment Not on file documented as of this encounter Visit Diagnoses Not on filedocumented in this encounter Additional Health Concerns Assessment Noted Time PHQ-9 Depression Total Score: 7 11/10/19 24 2:30 PM EDT documented as of this encounter Care Teams Paedodontist Relationship Specialty Start Date End Date Mary Flores MD [address] [place] [address] PCP - General Family Medicine 01/05/22 documented as of this encounter
--- OUTSIDE RECORDS SUMMARY | 2024-06-10 12:35 | XMS_ITS | Continuity of Care Document ---
Author Organization [facility] Address [address] [facility] [address] [place] [address] Phone Care Team Providers Care Heel Seat Fitter Machine Name Role Phone Juan DE LA TORRE, CARMEL, Alfred MCNULTY Unavailable U navailable Allergies, Adverse Reactions, Alerts Substance Reaction Status Criticality morphine Active No Information Procedures Procedure Date Duplex Scan-extrem Veins; Uni/ CT & [place] N Endovenous Rf, 1st Vein- [place] & [place] 2023 Offic/outpt E&m Estab 5 Min Trial- CT & [place] Offic Cons New/estab Mod 40 Mi- CT & [place] Duplex Scan-extrem Veins; Comp- CT & [place] Advance Directives Directive Yes / No Effective Date File Name No Information Encounters Encounter Description Practice Location Reason(s) For Visit Diagnoses Date Provider Providers Copied on Encounter [facility], [address] [place] [address] [address], [place], [id number], [place] tel:[phone] [place] Encounter for follow-up examination after completed treatment for conditions other than malignant neoplasmPain in right leg 4 Juan DE LA TORRE, CARMEL, HAMLET Simon. [address] [facility] [address], [place], [place], [id number] , [place]. tel:[phone] Referring Provider: Mary Flores MD, [address] [place], [address]. tel:[phone] [facility], [address] [place] [address] Dr [address], [place], [place], [id number], [place] tel:[phone] CV - [facility] Varicose veins of right lower extremity with other complications 4 Juan DE LA TORRE RVT, HAMLET Simon. [address] [place] [address], [place], [place], [id number] , [place]. tel:[phone] Referring Provider: Mary Flores MD, [address] [place] [address], [id number]. tel:[phone] [place] [facility], [address] [place] [address] Dr [address]iel [address] [place], [id number], [place] tel:[phone] CV - [place] No Information 4 Juan DE LA TORRE RVT, HAMLET Simon. [address] [place] [address], [place], [place], [id number] , [place]. tel:[phone] Offic/outpt E&m Estab 5 Min Trial- [place] & [place] [facility], [address] [place] [address] Dr Curiel [address] [place], [id number], [place] tel:[phone] [facility] venous hypertension (idiopathic) with other complications of bilateral lower extremity Feb- 4 Juan DE LA TORRE RVT, HAMLET Simon. [address] [place] [address], [place], [place], [id number] , [place]. tel:[phone] Referring Provider: Mary Flores MD, [address] [place] [address], [address]. tel:[phone] Offic Cons New/estab Mod 40 Mi- CT & [place] [facility], [address] [place] [address] Dr Curiel [address]Suite [place], [id number], [place] tel:[phone] CVR [place] Hereditary lymphedemaCramp and spasmChronic venous hypertension (idiopathic) with other complications of bilateral lower extremityPain in right legPain in left legRestless legs syndromeVenous insufficiency (chronic) (peripheral)Lym phedema, not elsewhere classifiedLocal ized edema Sep- 4 Juan DE LA TORRE RVT, HAMLET Simon. [address] [address], [place], [place], [id number] , [place]. tel:[phone] Referring Provider: Mary Flores MD, [address] [place] [address], [address]. tel:[phone] [facility], [address] [facility] [address], [place], [id number], tel:[phone] [facility] Chronic venous hypertension (idiopathic) with other complications of bilateral lower extremity Sep-0 4 Juan DE LA TORRE RVT, HAMLET Simon. [address] [address], [place], [place], [id number] , [place]. tel:[phone] Referring Provider: Mary Flores MD, [address] [place] [address], [address]. tel:[phone] Family History Family Member Type Diagnosis Age At Onset No Information Payers Payer name Insurance type Covered libertarian ID Authoriza tiroland(s) [facility] CI [id number] Social History Type Description Quantity Date Captured Comments Sex Female Smoking Status No Information Chief Complaint And Reason For Visit No Information Reason For Referral Reason For Referral No Information Plan Of Treatment Date Type Action Status Goal Tobacco cessation counseling completed Goal Diet education completed Referral Ordered: Weight management: Referral to physician timeframe: 3 Months (related to Body mass index (BMI) 35.0-35.9, adult) ordered Appointment Margarita Flores BOOKED Appointment Margarita Flores BOOKED History Of Present Illness Encounter Date Complaint History Of Prese nt Illness No Information Functional Status Date Functional Assessmen t No Information Instructions Date Instruction Additional Infor matmarga Patient education booklet given Related to Chronic venous hypertension (idiopathic) with other complications of bilateral lower extremity Pre and post instruc tions reviewed and provided Related to Chronic venous hypertension (idiopathic) with other complications of bilateral lower extremity Diet education Related to Body mass index (BMI) 35.0-35.9, adult Giving Encouragement to exercise Related to Body mass index (BMI) 35.0-35.9, adult Lifestyle education Related to B stanley mass index (BMI) 35.0-35.9, adult Assessments Type Assessment Date No Information Patient Care Teams Name Effective Dates (start - stop) Status Members No Information
--- OUTSIDE RECORDS SUMMARY | 2024-06-10 12:35 | XMS_ITS | Encounter Summary ---
Author Organization [employer] Address [address] [place] [address] Care Team Providers Care Screedman/Laborer Name Role Phone Mary Flores MD Primary Care Provider [phone] Reason for Visit * Reason Onset Date Comments Appointment Request 06/13/2023 Encounter Details Date Type Department Care Team ([facility] st Contact Info) Description 06/13/2023 Telephone [facility] [address] [place] [address] Mary Flores MD [address] [place] [address] Appointment Request Social History Tobacco Use Types Packs/Day Years Used Date Smoking Tobacco: Never Smokeless Tobacco: Never Alcohol Use Standard Drinks/Week Comments Never 0 (1 standard drink = 0.6 oz pur e alcohol) Housing Stability Answer Date Recorded What is your housing situation today? I have toñapadmini cruz 02/24/[address] you [...] living? Yes, it has kept me from medical appointments or getting medications. 02/20/2023 Utilities Answer Date Recorded In the past [...] encounter Miscellaneous Notes * Telephone Encounter - Cherie Antunez - 06/13/2023 10:59 AM EST Tc from pt requesting appt with PCP pt stated during last TV with PCP Dr. Flores told her that when she returned from [place] to call for an appointment in person. documented in this encounter Plan of Treatment Not on file documented as of this encounter Visit Diagnoses Not on filedocumented in this encounter Care Teams Screedman/Laborer Relationship Specialty Start Date End Date Mary Flores MD [address] [place] [address] PCP - General Family Medicine 01/05/22 documented as of this encounter
--- OUTSIDE RECORDS SUMMARY | 2024-06-10 12:35 | XMS_ITS | Encounter Summary ---
Author Organization [employer] Address [address] [facility] [address] [facility] [address] [address] [place] [address] Care Team Providers Care Manager City Name Role Phone Mary Flores MD Primary Care Provider [phone] Reason for Visit * Reason Onset Date Comments Med Refill 02/04/2024 Encounter Details Date Type Department Care Team ([facility] st Contact Info) Description 02/04/2024 Telephone [facility] [address] [place] [address] Mary Flores MD [address] [place] [address] Med Refill Social History Tobacco Use Types Packs/Day Years [...] encounter Miscellaneous Notes * Telephone Encounter - Rafat Sun - 02/04/2024 9:35 AM EDT Tc from pt requesting a refill for guaiFENesin-codeine (Robitussin-AC) 100-10 MG/5ML syrup , statesthey [facility] cough. Please contact at [phone] documented in this encounter Plan of Treatment Not on file documented as of this encounter Visit Diagnoses Not on filedocumented in this encounter Additional Health Concerns Assessment Noted Time PHQ-9 Depression Total Score: 7 11/10/19 24 2:30 PM EDT documented as of this encounter Care Teams Manager City Relationship Specialty Start Date End Date Mary Flores MD [address] [place] [address] PCP - General Family Medicine 01/05/22 documented as of this encounter
--- OUTSIDE RECORDS SUMMARY | 2024-06-10 12:35 | XMS_ITS | Encounter Summary ---
Author Organization [employer] Address [address] [place] [address] Care Team Providers Care Purler Name Role Phone Mary Flores MD Primary Care Provider [phone] Encounter Details Date Type Department Care Team (Late st Contact Info) Description 12/17/2023 Orders Only [facility] [address] [place] [address] Mary Flores MD [address] [place] [address] Social History Tobacco Use Types Packs/Day Years [...] documented as of this encounter Care Teams Purler Relationship Specialty Start Date End Date Mary Flores MD [address] [place] [address] PCP - General Family Medicine 01/05/22 documented as of this encounter
--- OUTSIDE RECORDS SUMMARY | 2024-06-10 12:35 | XMS_ITS | Encounter Summary ---
Author Organization [employer] Address [address] [facility] [address] [address] [place] [address] Care Team Providers Care Human Resources Specialist Name Role Phone Mary Flores MD Primary Care Provider [phone] Reason for Visit * Reason Comments Med Refill Encounter Details Date Type Department Care Team ([facility] st Contact Info) Description 04/19/2024 Refill [facility] [address] [place], [place] [phone] Olga Dillard ANP [address] [place] [address] Nasal congestion Social History Tobacco Use Types Packs/Day Years [...] as of this encounter Visit Diagnoses Diagnosis Nasal congestion Other diseases of nasal cavity and sinuses documented in this encounter Additional Health Concerns Assessment Noted Time PHQ-9 Depression Total Score: 7 11/10/19 24 2:30 PM EDT documented as of this encounter Care Teams Human Resources Specialist Relationship Specialty Start Date End Date Mary Flores MD [address] [place] [address] PCP - General Family Medicine 01/05/22 documented as of this encounter
--- OUTSIDE RECORDS SUMMARY | 2024-06-10 12:35 | XMS_ITS | Encounter Summary ---
Author Organization [employer] Address [address] [facility] [address] [place] [address] Care Team Providers Care Real Estate Closer Name Role Phone Mary Flores MD Primary Care Provider [phone] Reason for Visit * Reason Onset Date Comments filling fell out 01/19/2024 Encounter Details Date Type Department Care Team ([facility] st Contact Info) Description 01/19/2024 Telephone [facility] [address] [place] [address] Sari Mckinnon, DDS [address] [place] [address] filling fell out Social History Tobacco Use Types Packs/Day Years [...] encounter Miscellaneous Notes * Telephone Encounter - Adrienne Ba - 01/19/2024 1:00 PM EDT Patient states filling fell out and it is starting to bother her. She is not in emergency pain but would like to be scheduled DR documented in this encounter Plan of Treatment Not on file documented as of this encounter Visit Diagnoses Not on filedocumented in this encounter Additional Health Concerns Assessment Noted Time PHQ-9 Depression Total Score: 7 11/10/19 24 2:30 PM EDT documented as of this encounter Care Teams Real Estate Closer Relationship Specialty Start Date End Date Mary Flores MD [address] [place] [address] PCP - General Family Medicine 01/05/22 documented as of this encounter
--- OUTSIDE RECORDS SUMMARY | 2024-06-10 12:35 | XMS_ITS ---
Author Name Sonya Gallagher NP Address [address] [place] [address] Phone [phone] [facility] Care Team Providers Care Tube Handler Name Role Phone Sonya Gallagher Unavailable [phone] Unavailable Unavailable Unavailable NATALY CRANDALL Unavailable [phone] Bret Bonner Unavailable [phone] Deanna Casillas Unavailable [phone] CALEB RAMON Unavailable [phone] EDWARD REBOLLEDO Unavailable [phone] Reason for Referral Not Available Allergies, adverse reactions, alerts Allergen Type Reaction Severity Status Onset Date Morphine Allergy to substance (disorder) rash and hives Mod erate Active N/A History of medication use Medication Class Instructions Start Date End Date Carvedilol 12.5 mg Tab TAKE 1 TABLET BY MOUTH TWICE DAILY WITH FOOD 2021-10-18 No Data Available Linzess 290 MCG Cap TAKE 1 CAPSULE BY [facility] EVERY MORNING 2021-10-25 No Data Available Albuterol Sulfate HFA 108 (9 0 Base) MCG/ACT Aerosol Solution INHALE 2 PUFFS BY MOUTH EVERY 4 TO 6 HOURS NEEDED 2021-05-30 No Data Available Amitriptyline 100 mg Tab TAKE 1 TABLET B Y MOUTH AT BEDTIME 2021-10-09 No Data Available Creon [id number] UNIT Cap delayed rel TAKE 1 CAPSULE BY MOUTH FOUR TIMES DAILY, WITH MEALS OR SNACKS AND AT BEDTIME 2021-11-08 No Data Available Cyclobenzaprine 10 mg Tab TAKE 1 TABLET BY MOUTH AT BEDTIME 2021-10-09 No Data Available Daliresp 500 MCG Tab TAKE 1 TABLET BY MO CTH EVERY DAY 2021-05-30 No Data Available dilTIAZem ER Coated Beads 24 0 mg Cap ER 24hr TAKE 1 CAPSULE BY MOUTH EVERY DAY 2021-03-14 No Data Available Gabapentin 300 mg Cap TAKE 1 CAPSULE BY MOUTH WITH BREAKFAST AND LUNCH AND 2 CAPSULE WITH SUPPER 2020-12-13 No Data Available hydroCHLOROthiazide 25 mg Tab TAKE 1 TAB LET BY MOUTH EVERY DAY 2021-09-10 No Data Available Imipramine 50 mg Tab TAKE 2 TABLETS BY M OUTH AT BEDTIME 2021-10-29 2022-04-16 Montelukast Sodium 10 mg Tab TAKE 1 TABL ET BY MOUTH EVERY DAY 2021-05-30 No Data Available Naproxen 500 mg Tab TAKE 1 TABLET BY HALIMA TH EVERY TWELVE HOURS 2021-10-09 No Data Available Omeprazole 20 mg Cap delayed rel TAKE 1 CAPSULE BY MOUTH EVERY DAY 2021-10-29 No Data Available Atorvastatin Calcium 10 mg Tab TAKE 1 TA BLET BY MOUTH EVERY DAY AT BEDTIME 2021-04-02 No Data Available Vitamin D (Ergocalciferol) 1 .25 mg (01550 UT) Cap TAKE 1 CAPSULE BY MOUTH EVERY WEEK 2021-12-14 No Data Available Estradiol 0.1 mg/GM Crm INSERT 1 GRAM VA GINALLY EVERY WEEK 2021-12-14 No Data Available traMADol 50 mg Tab TAKE 1 TABLET BY HALIMA TH EVERY TWELVE HOURS NEEDED FOR SEVERE PAIN 2021-12-18 No Data Available traZODone 50 mg Tab TAKE 1 TABLET BY HALIMA TH ONCE DAILY NEEDED FLIGHT 2021-12-18 No Data Available Betamethasone Dipropionate 0 .05 % Oint APPLY TO THE AFFECTED AREA(S) OF HANDS DAILY DIRECTED FOR ECZEMA 2021-12-18 No Data Available Celecoxib 50 mg Cap TAKE 2 CAPSULES BY M OUTH EVERY DAY NEEDED FOR PAIN 2021-12-18 No Data Available Cephalexin 500 mg Cap TAKE 1 CAPSULE BY MOUTH EVERY 6 HOURS FOR 5 DAYS 2021-12-18 No Data Available Aspirin Low Dose 81 mg Tab Chewable CHEW AND SWALLOW 1 TABLET EVERY MORNING 2021-12-19 No Data Available Breo Ellipta 200-25 MCG/ACT Aerosol Powder Breath Activated INHALE 1 PUFF EVERY DAY AT THE SAME TIME 2021-12-19 No Data Available Incruse Ellipta 62.5 MCG/ACT Aerosol Powder Breath Activated INHALE 1 PUFF EVERY DAY AT THE SAME TIME 2021-12-19 No Data Available MELATONIN 5 MG TABLET TAKE 2 TABLETS BY MOUTH AT BEDTIME 2021-12-19 No Data Available DULoxetine 30 mg Cap delayed rel TAKE 1 CAPSULE BY MOUTH EVERY DAY 2021-09-18 No Data Available Lisinopril 40 mg Tab TAKE 1 TABLET BY MO UTH EVERY MORNING 2021-08-29 No Data Available Vitamin D3 50 mcg (2,000 uni t) capsule TAKE 1 CAPSULE BY MOUTH EVERY DAY 2021-12-18 No Data Available guaiFENesin-Codeine 100/10 mg/5ML Solution TAKE 10 ML BY MOUTH EVERY 6 HOURS NEEDED FOR COUGH 2022-03-05 No Data Available Dexamethasone 2 mg Tab TAKE 3 TABLETS BY MOUTH ONCE DAILY 2022-03-05 No Data Available Ibuprofen 600 mg Tab TAKE 1 TABLET BY MO UTH EVERY 6 HOURS NEEDED FOR FEVER OR FOR PAIN 2022-03-05 No Data Available SM All Day Allergy Relief 10 mg Tab TAKE 1 TABLET BY MOUTH EVERY MORNING 2022-03-07 No Data Available Azithromycin 500 mg Tab TAKE 1 TABLET BY MOUTH EVERY DAY FOR 3 DAYS 2022-03-07 No Data Available Meclizine 25 mg Tab TAKE 1 TABLET BY HALIMA THREE TIMES DAILY NEEDED FOR DIZZINESS 2022-03-07 No Data Available Paxlovid (300/100) 20 x 150 mg & 10 x 100 mg Tab Therapy Pack TAKE 2 TABLETS (300 MG) OF NIRMATRELVIR & 1 TABLET (100 MG) OF RITONAVIR BY MOUTH TWICE DAILY FOR 5 DAYS 2022-03-07 No Data Available Problem List Problem Status Onset Date Resolved Date Hypertension Active 2022-04-08 N/A Skin cancer Active 2022-04-08 N/A Rheumatoid arthritis Active 2022-04-08 N/A Osteoarthritis Active 2022-04-08 N/A Morbid (severe) obesity due to excess calories Active 2022-04-13 N/A Depression, major, in partial remission Active 2 N/A Congestive heart failure Active 2022-04-08 N/A 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 2022-04-08 N/A Encounters Encounters Type Facility Date of Service Diagnosis/Co mplaint New patient,40-59min; chronic exacerbation, 2 stable chronic or 1 acute illness add add modifier 95 for video (do not use for phone, instead use [id number]) [facility] ([place]) 04/08/2022 Hypertensive heart disease w ith heart failureHeart failure, unspecifiedUnspecified asthma, uncomplicatedChronic obstructive pulmonary disease, unspecifiedRheumatoid arthritis, unspecifiedHyperlipidemia, unspecifiedDepression, unspecified New patient,40-59min; chronic exacerbation, 2 stable chronic or 1 acute illness add add modifier 95 for video (do not use for phone, instead use 70191-63) [facility], ([place]) 04/08/2022 New patient,40-59min; chronic exacerbation, 2 stable chronic or 1 acute illness add add modifier 95 for video (do not use for phone, instead use [id number]) [facility] [place] 04[place]08/2022 New patient,40-59min; chronic exacerbation, 2 stable chronic or 1 acute illness add add modifier 95 for video (do not use for phone, instead use [id number]) [facility] [place] 04/08/2022 New patient,40-59min; chronic exacerbation, 2 stable chronic or 1 acute illness add add modifier 95 for video (do not use for phone, instead use 95034-98) [facility] [place] 04/08/2022 New patient,40-59min; chronic exacerbation, 2 stable chronic or 1 acute illness add add modifier 95 for video (do not use for phone, instead use [id number]) [facility] ([place]) 04/08/2022 New patient,40-59min; chronic exacerbation, 2 stable chronic or 1 acute illness add add modifier 95 for video (do not use for phone, instead use [id number]) [facility] ([place]) 04/08/2022 New patient,40-59min; chronic exacerbation, 2 stable chronic or 1 acute illness add add modifier 95 for video (do not use for phone, instead use 66098-87) [facility] ([place]) 04/08/2022 New patient,40-59min; chronic exacerbation, 2 stable chronic or 1 acute illness add add modifier 95 for video (do not use for phone, instead use [id number]) [facility], [place] 04/08/2022 Estab. patient 20-29min; 1 stable chronic or 2 minor; add add modifier 95 for video, modifier 93 for phone [facility] ([place]) 05/09/2022 Hypertensive heart disease w ith heart failureHeart failure, unspecifiedChronic obstructive pulmonary disease, unspecifiedUnspecified malignant neoplasm of skin, unspecifiedRheumatoid arthritis, unspecifiedUnspecified osteoarthritis, unspecified siteMajor depressive disorder, single episode, in partial remissionMorbid (severe) obesity due to excess caloriesBody mass index (BMI) 35.0-35.9, adult Vital Signs Date of Collection Vitals 2022-04-08 16:01:57 Height - 160.02 cmWe ight - 90.72 kgBody Mass Index (BMI) - 35.43 kg/m2BP Diastolic - 90.0 mm[Hg]BP Systolic - 144.0 mm[Hg]Heart Rate - 67.0 /minRespiratory Rate - 20.0 /minO2 % BldC Oximetry - 94.0 % 2022-05-09 11:50:14 BP Diastolic - 70.0 mm[Hg]BP Systolic - 134.0 mm[Hg]Heart Rate - 82.0 /min Social History Social History Social History Observation Description Effec tive Time Current Smoking Status Never smoker 2024-05-14 0 Sex Female History of Procedures Procedures Service Procedure code Service date Servicing provider Phone# New patient,40-59min; chronic exacerbation, 2 stable chronic or 1 acute illness add add modifier 95 for video (do not use for phone, instead use [id number]) 54142 2022-04-09 No Data Available No Data Availa ble Medication List Documented (1159F) 1159F 2022-04-09 No Data Available No Data Ngozi ilable Medication Review by prescribing provider or pharmacist documented (1160F) 1160F 2022-04-09 No Data Available No Data Ngozi ilable Functional Status Assessed (1170F) 1170F 2022-04-09 No Data Available No Data Avail able Advance Care Directive Advance care planning discussion documented in the medical record (1158F) 1158F 2022-04-09 No Data Available No Data Availa ble BMI obtained (3008F) 3008F 2022-04-09 No Data Availab le No Data Available Pain Assessment - NO pain present (1126F) 1126F 2022-04-09 No Data Available No Data A vailable SBP >= 140 3077F 2022-04-09 No Data Available No Data Available DBP >=90 3080F 2022-04-09 No Data Available No Data Available Estab. patient 20-29min; 1 stable chronic or 2 minor; add add modifier 95 for video, modifier 93 for phone 25548 2022-05-09 No Data Available No Data Availa ble Functional Status Functional Category Effective Dates ambulates with cane or walke r; independant with ADL but needs help w bath/shower 2022-04-08 Mental Status Status Date alert and oriented x 3 2022-04-08 Assessments Date of Service Assessments 2022-04-08 16:01:57 Congestive heart lisset lureHypertensionAsthmaCOPD (chronic obstructive pulmonary disease)Rheumatoid arthritisDyslipidemiaDepression 2022-05-09 11:50:14 Congestive heart lisset lureHypertension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Skin cancerRheumatoid arthritisOsteoarthritisDepression, major, in partial remissionMorbid (severe) obesity due to excess calories Plan of Care Date of Service Plans 2022-04-08 16:01:57 Pain Assessment - NO pain documented (1126F)Medication Review by prescribing provider or pharmacist documented (1160F)Medication List Documented (1159F)Functional Status Assessed (1170F)Advance Care Directive Advance care planning discussion documented in the medical record (1158F)BMI obtained (3008F)SBP >= 140DBP >=90Televideo new patient,40-59min; chronic exacerbation, 2 stable chronic or 1 acute illness add modifier 95Continue to see PCP. Follow-up with [facility] as needed for any acute or disease education needs that may arise.cont with carvedilol and cont to follow w Cardiologistcont taking lisinoprilcont w Breo, albuterol and dalirespcont to follow w pulmonologistcont on current regimencont on atorvastatincont taking duloxetine and follow w therapy as needed 2022-05-09 11:50:14 Televideo 20-29min; 1 stable chronic or 2 minor; add modifier 95Continue to see PCP. Follow-up with [facility] as needed for any acute or disease education needs that may arise 02/12.on Carvediolol, dilTIAZem, hydroCHLOROthiazide, Lisinoprilsees CD every 3-5 monthssees CD every 3-5 moseley Incruse Ellipta, Breo, Daliresp ; Albuterol PRN AND Montelukast sees pulm every 3 mosees oncologist - does not know namesees Dr Garcia - rheumotologist sees every 6 moleft knee pain and swellingbilateral pain but left worseon Amitriptyline, Duloxetinealso on Melatonin for sleepPHQ9=1 Nov 2BMI-35.43 associated HTN, CHFencourage healthy food choices Goals Date Goal 2022-04-09 Remember to keep all appts w physicians 2022-04-09 Call me if any issue s 2022-04-09 Keep it up diet and med compliance 2022-05-09 no needs/ concerns a t this time 2022-05-09 call if you feel ill , have any questions or concerns Health Concerns Date Concern 2022-05-09 Patient seen using a udio and video over the Lastline tablet. Time spent in visit: 20 minutesToday, patient has chief complaint of: monitoring of chronic conditions 2022-05-09 Most recent hospital stay(s) or ER visit(s) and precipitating factors: denies 2022-05-09 Open HEDIS Measure falguni carbajal: done
--- OUTSIDE RECORDS SUMMARY | 2024-06-10 12:35 | XMS_ITS | Encounter Summary ---
Author Organization [employer] Address [address] [place] [address] Care Team Providers Care Check Totaler Name Role Phone Mary Flores MD Primary Care Provider [phone] Encounter Details Date Type Department Care Team (Late st Contact Info) Description 12/05/2023 Orders Only [facility] [address] [place] [address] Tyrel Trivedi MD [address] [place] [address] Social History Tobacco Use Types Packs/Day Years [...] documented as of this encounter Care Teams Check Totaler Relationship Specialty Start Date End Date Mary Flores MD [address] [place] [id number] PCP - General Family Medicine 01/05/22 documented as of this encounter
== END 2024-06-10 11:52 | disposition home or self-care (01) ==
PROVIDERS: PCP General Practice; Visit Provider Nurse Practitioner Family
DX: R25.1 Tremor, unspecified (principal); R29.898 Other symptoms and signs involving the musculoskeletal system; M54.2 Cervicalgia; G43.009 Migraine without aura, not intractable, without status migrainosus
CPT/HCPCS: 99204

== ENCOUNTER → 2024-06-10 09:31 | Outpatient (BNVA) | payer OTHER, SELFPAY | PROVIDERS: PCP General Practice; Visit Provider Nurse Practitioner Family | DX: G43.009 Migraine without aura, not intractable, without status migrainosus (principal); R25.1 Tremor, unspecified; R29.898 Other symptoms and signs involving the musculoskeletal system; M54.2 Cervicalgia | CPT/HCPCS: 99202 ==

== ENCOUNTER 2024-07-05 09:35 | Outpatient (AMB) | payer OTHER, SELFPAY ==
[2024-07-05 09:40] VITALS: BP 148/84; PULSE 66; O2SAT 96; BMI 35.9
--- NOTE | 2024-07-05 09:40 | MHC.OFFVIS ---
Vital Signs 07/05/24 09:40 Height 5 ft 3 in Weight 202 lb 13.204 oz BMI 35.9 BP 148/84 H Blood Pressure Location Lt brachial Position Sitting Pulse 66 Pulse Source Pulse Oximeter Pulse Oximetry (%) 96 Oxygen Delivery Method Room Air Intake Visit Reasons: Asthma Allergies morphine [MORPHINE] Allergy (Intermediate, Verified 07/05/24 09:44) NAUSEA, rash, redness HPI Comments Details: The patient is a 74-year-old woman known asthma. Recently had a CT scan of the abdomen demonstrating hiatal hernia as well. She continues to be on her respiratory regimen which includes Trelegy and also budesonide nebs and albuterol nebs. She had also takes her allergy medicine including singular. Recently she could not find her singular medication nguyen and she has noticed that her respiratory symptoms are getting worse. The patient also has cough. Moderate severity. Tends to be dry. We did talk about the reflux diet. Is going to try to follow it closely. She was slow to improve had a CT scan done again demonstrating airspace disease in the left base. She did undergo bronchoscopy with significant mucus burden status post therapeutic bronchoscopy. 07/15/2023 the patient is here for a pulmonary follow-up visit. Patient overall has been feeling a little bit worse from her asthma. She has been sometime in [place] her asthma was good. However when she made back to this state she started developing again to tightness and wheezing. unfortunately, her nebulizer fell and broke and is no longer working. She needs have a functional nebulizer in view of her severe persistent asthma. will go ahead and order a new nebulizer replacement for the patient at this time. In the meantime she has been having hard time with her CPAP because she has not been getting supplies. I have explained to her that based on the fact that she has not using it the insurance will cover for any supplies. Therefore, she is going to start using at this time. Will review the use with the next download. 09/18/2023 the patient is here for a pulmonary follow-up visit. She unfortunately developed worsening respiratory symptoms. She did go to the hospital she was diagnosed with influenza A. She went to the hospital twice after that with worsening respiratory symptoms cough wheezing chest tightness. She was given prednisone multiple times. The patient was not admitted to the hospital. Her chest x-ray was clear. She still continues to complain of shortness of breath. Even with minimal activity moderate severity. Also complains of some chest congestion. She has been using her nebulizer treatments in addition to her respiratory medications and now she ran out. I will make sure to supply of the medication pharmacy. The patient also will be treated for postviral bacterial infection and also still having wheezing on examination so therefore will place her on a small dose of prednisone that she can taper down slowly to try to improve her respiratory symptoms. If the patient is no better she would come in for chest x-ray. She also struggling with her CPAP. Her CPAP supplies have not been recieved. We did request supplies from the [employer] company during the last visit. Will call the DME again. Also she needs a nebulizer replacement that we requested during her last visit. 01/19/2024 the patient is here for a pulmonary follow-up visit. The patient is complaining worsening cough. She does not feel like the Breo is helping her. She also has wheezing and chest tightness. She did have a Symbicort available and she tried that and worked a lot better than her medication. She is also wondering over biologic injections. She is currently taking Spiriva. Will go ahead and maximize her respiratory therapy by switching over to Symbicort and continue the Spiriva. If the patient is no better she can have blood work done to assess her for allergic biologic therapies. In the meantime she does have a new CPAP with her. The CPAP therapy has been affecting beneficial. Her AHI is down 0.5. The patient has been use it more than 4 hours a night which is reassuring. The major issues that has an air leakage from her fullface mask. Will try to get her a different mask, F 30 medium mask on to her DME company. Her DME company is [employer]. She has not heard from them. I will send prescriptions in order for her to get supplies. The patient otherwise is doing well. Will follow-up in the spring. In the meantime she develops any worsening symptoms prior to that she will come for an earlier assessment. 07/05/2024 the patient is here for pulmonary follow-up visit. Overall the patient has been doing okay. She complains of asthma symptoms on a daily basis. She has been having to use her rescue inhaler daily. If not several times a day. Back in the fall she did have bad respiratory infection positive for RSV she was briefly admitted to the hospital. The patient was treated in now feels like her asthma has never been the same after that. In the meantime she continues use her CPAP. CPAP therapy continues to be affecting beneficial and she does use it for more than 4 hours a night. Her AHI is within normal limits. And she continues to get supplies from her [employer]. She does use a fullface mask which will request. In regards of the uncontrolled asthma symptoms she has had eosinophilia in the past. We will see about checking her blood work again for eosinophils and also IgE and will looking to biologic therapy for her ongoing symptoms. [facility] Medical History Atelectasis of left lung Chronic pain syndrome 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 Sacroiliitis Disc degeneration, lumbar OTILIO (obstructive sleep apnea) Back pain HTN (hypertension) Skin cancer (melanoma) GERD (gastroesophageal reflux disease) Depression OTILIO (obstructive sleep apnea) Kidney stones Pulmonary nodule Severe asthma Primary osteoarthritis involving multiple joints Pneumonia Chronic allergic rhinitis (~03/09/20) Asthma-COPD overlap syndrome Surgical History History of bronchoscopy History of cystoscopy History of laparoscopic appendectomy History of nasal surgery Hx of section Hx of tubal ligation Hx of colonoscopy History of esophagogastroduodenoscopy (EGD) Hx of knee surgery Family History Father No problems noted. Mother No problems noted. Social History Household Members: Children Housing: Apartment Do you presently have visiting nurse or other home services: Yes (private home health aid) Alcohol intake: never Patient Tobacco Use Status: Never used Tobacco e-Cigarette/Vaping Use: Never Used Second Hand Smoke Exposure: No Advance Directives Date on File: 10/13/23 service: No Current occupational status: disabled Current occupation: rt handed Review of Systems Const Denies daytime sleepiness, Denies stops breathing during sleep and Reports weight gain Eyes Denies change in vision ENT Reports Normal hearing present Card Reports dyspnea Resp Reports chest congestion, Reports cough, Reports dyspnea and Reports wheezing Musc Reports back pain Neuro Reports Normal hearing present and Denies Abnormal speech present Aller/Immun Reports wheezing Physical Exam Vital Signs: Last Vital Signs Pulse 66 07/05/24 09:40 BP 148/84 H 07/05/24 09:40 Pulse Ox 96 07/05/24 09:40 Oxygen Delivery Method Room Air 07/05/24 09:40 BMI result Body Mass Index 35.9 Const General: alert Neck Neck: Yes normal visual inspection, Yes full ROM and Yes no lymphadenopathy Chest Chest palpation & inspection: normal inspection of the chest Resp Effort & Inspection: normal respiratory effort and prolonged expiratory phase Auscultation: no rhonchi, no wheezes and diminished lung sounds Cardio Rate: regular rate Rhythm: regular rhythm Heart sounds: S1 normal heart sound present and S2 normal heart sound present GI Palpation (GI): Soft to palpation and nontender Auscultation: normal bowel sounds Skin General skin exam: rashes and/or lesions noted Neuro Cranial nerves: Yes Normal hearing present Speech: No Abnormal speech present Assessment & Plan Assessment & Plan (1) Asthma-COPD overlap syndrome: Code(s): J44.9 - Chronic obstructive pulmonary disease, unspecified Category: Medical (2) Severe asthma: Code(s): J45.909 - Unspecified asthma, uncomplicated Category: Medical Qualifiers: Asthma complication type: uncomplicated Asthma persistence: persistent Qualified Code(s): J45.50 - Severe persistent asthma, uncomplicated (3) OTILIO (obstructive sleep apnea): Code(s): G47.33 - Obstructive sleep apnea (adult) (pediatric) Category: Medical (4) Pulmonary nodule: Code(s): R91.1 - Solitary pulmonary nodule Category: Medical (5) GERD (gastroesophageal reflux disease): Code(s): K21.9 - Gastro-esophageal reflux disease without esophagitis Category: Medical Qualifiers: Esophagitis presence: without esophagitis Qualified Code(s): K21.9 - Gastro-esophageal reflux disease without esophagitis (6) Atelectasis of left lung: Code(s): J98.11 - Atelectasis Category: Medical Plan zyrte bloodwork Continue APAP, requesting F30 medium mask continue Daliresp 500mg daily continue symbicort continue Spiriva JOHANA as needed start Dupixent if she qualifies continue singulair F/U 6 months Orders: Orders Basic Metabolic Panel Today J45.40 - Moderate persistent asthma, uncomplicated Immunoglobulin E Today J45.40 - Moderate persistent asthma, uncomplicated Complete Blood Count Auto Diff Today J45.40 - Moderate persistent asthma, uncomplicated Immunoglobulins,IgG IgA IgM Today J45.40 - Moderate persistent asthma, uncomplicated Erythrocyte Sedimentation Rate Today J45.40 - Moderate persistent asthma, uncomplicated Coding Level of Care Code Est Pt Level 4 (54167) Complex EM visit Add On G2211 Diagnoses Asthma-COPD overlap syndrome J44.9 Severe persistent asthma without complication J45.50 Asthma complication type: uncomplicated Asthma persistence: persistent OTILIO (obstructive sleep apnea) G47.33 Pulmonary nodule R91.1 Gastroesophageal reflux disease without esophagitis K21.9 Esophagitis presence: without esophagitis Atelectasis of left lung J98.11 Time Spent (min) 17
--- OUTSIDE RECORDS SUMMARY | 2024-07-05 10:25 | XMS_ITS | Encounter Summary ---
Author Organization [employer] Address [address] [facility] [address] 7t [place] [address] Care Team Providers Care Electrical Products Engineer Name Role Phone Mary Flores MD Primary Care Provider [phone] Reason for Visit * Reason Onset Date Comments Durable Medical Equipment 07/25/2023 Encounter Details Date Type Department Care Team ([facility] st Contact Info) Description 07/25/2023 Telephone [facility] MEDICINE 230 [place] [address] Mary Flores MD 230 [place] [address] Durable Medical Equipment Social History Tobacco Use [...] requesting DME supplies to be sent to [facility] - bed pads - L pull ups - oximeter documented in this encounter Plan of Treatment Not on file documented as of this encounter Visit Diagnoses Not on filedocumented in this encounter Care Teams Electrical Products Engineer Relationship Specialty Start Date End Date Mary Flores MD 230 [place] [address] PCP - General Family Medicine 01/05/22 documented as of this encounter
--- OUTSIDE RECORDS SUMMARY | 2024-07-05 10:25 | XMS_ITS | Encounter Summary ---
Author Organization [employer] [facility] Address [address] [facility] 7t [place] [address] Care Team Providers Care Information Technology Administrator Name Role Phone Mary Flores MD Primary Care Provider [phone] Reason for Visit * Reason Comments Med Refill Encounter Details Date Type Department Care Team (Late st Contact Info) Description 08/15/2022 Refill [facility] 230 [place], [place] [phone] Keri Ochoa MD 230 [place], [place] [phone] Social History Tobacco Use Types Packs/Day Years [...] on filedocumented in this encounter Care Teams Information Technology Administrator Relationship Specialty Start Date End Date Mary Flores MD [address] [place] [address] [id number] PCP - General Family Medicine 01/05/22 documented as of this encounter
--- OUTSIDE RECORDS SUMMARY | 2024-07-05 10:25 | XMS_ITS | Encounter Summary ---
Author Organization [employer] [facility] Address [address] [facility] 7t [place] [address] Care Team Providers Care Firearms Inspector Name Role Phone Mary Flores MD Primary Care Provider [phone] Encounter Details Date Type Department Care Team (Late st Contact Info) Description 08/01/[address] [facility] MEDICINE 230 [place] [address] Mary Flores MD 230 [place] [address] Blurry vision (Primary Dx) Social History Tobacco [...] disturbances documented in this encounter Care Teams Firearms Inspector Relationship Specialty Start Date End Date Mary Flores MD 230 [place], [place] [phone] PCP - General Family Medicine 01/05/22 documented as of this encounter
--- OUTSIDE RECORDS SUMMARY | 2024-07-05 10:25 | XMS_ITS | Encounter Summary ---
Author Organization [facility] Address [address] [place] [address] 7 [place] [address] Care Team Providers Care It Applications Analyst Name Role Phone Mary Flores MD Primary Care Provider [phone] Reason for Visit * Reason Onset Date Comments Referral 08/01/2022 Encounter Details Date Type Department Care Team ([facility] st Contact Info) Description 08/01/2022 Telephone [facility] MEDICINE 230 [place] [address] Mary Flores MD 230 [place] [address] Referral Social History Tobacco Use Types Packs/Day [...] [facility] 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
--- OUTSIDE RECORDS SUMMARY | 2024-07-05 10:26 | XMS_ITS ---
Author Name Sonya Gallagher NP Address [address] [place] [address] Phone [phone] [facility] Care Team Providers Care Material Handling Equipment Stevedore Name Role Phone Sonya Gallagher Unavailable [phone] Unavailable Unavailable Unavailable NATALY CRANDALL Unavailable [phone] Bret Bonner Unavailable [phone] Deanna Casillas Unavailable [phone] CALEB RAMON Unavailable [phone] EDWARD REBOLLEDO Unavailable [phone] Reason for Referral Not Available Allergies, adverse [...] 290 MCG Cap TAKE 1 CAPSULE BY [facility] EVERY MORNING 2021-10-25 No Data Available Albuterol Sulfate HFA 108 (9 0 Base) MCG/ACT Aerosol Solution INHALE 2 PUFFS BY MOUTH EVERY 4 TO 6 HOURS NEEDED 2021-05-30 No Data Available Amitriptyline 100 mg Tab TAKE 1 TABLET B Y MOUTH AT BEDTIME 2021-10-09 No Data Available Creon 10517-16363 UNIT Cap delayed rel TAKE 1 CAPSULE BY MOUTH FOUR TIMES DAILY, WITH MEALS OR SNACKS AND AT BEDTIME 2021-11-08 No Data Available Cyclobenzaprine 10 mg Tab TAKE 1 TABLET BY MOUTH AT BEDTIME 2021-10-09 No Data Available Daliresp 500 MCG Tab TAKE 1 TABLET BY [facility] EVERY DAY 2021-05-30 No Data Available dilTIAZem [...] Available Vitamin D (Ergocalciferol) 1 .25 mg (62025 UT) Cap TAKE 1 CAPSULE BY MOUTH [...] (do not use for phone, instead use 43344-02) [facility] ([place] 04/08/2022 Hypertensive heart disease w ith heart failureHeart failure, unspecifiedUnspecified asthma, uncomplicatedChronic obstructive pulmonary disease, unspecifiedRheumatoid arthritis, unspecifiedHyperlipidemia, unspecifiedDepression, unspecified New patient,40-59min; chronic exacerbation, 2 stable chronic or 1 acute illness add add modifier 95 for video (do not use for phone, instead use 71762-94) [facility] [place] New patient,40-59min; chronic exacerbation, 2 stable chronic or 1 acute illness add add modifier 95 for video (do not use for phone, instead use 07552-10) [facility] [place]20[place] New patient,40-59min; chronic exacerbation, 2 stable chronic or 1 acute illness add add modifier 95 for video (do not use for phone, instead use 76023-68) [facility] [place] 04/08/2022 New patient,40-59min; chronic exacerbation, 2 stable chronic or 1 acute illness add add modifier 95 for video (do not use for phone, instead use 49532-32) [facility] [place] 04[place]2022 New patient,40-59min; chronic exacerbation, 2 stable chronic or 1 acute illness add add modifier 95 for video (do not use for phone, instead use 08676-45) [facility] ([place]) 04/08/2022 New patient,40-59min; chronic exacerbation, 2 stable chronic or 1 acute illness add add modifier 95 for video (do not use for phone, instead use 18701-14) [facility] [place] 04/08/2022 New patient,40-59min; chronic exacerbation, 2 stable chronic or 1 acute illness add add modifier 95 for video (do not use for phone, instead use 81629-46) [facility] ([place] 04/08/2022 New patient,40-59min; chronic exacerbation, 2 stable chronic or 1 acute illness add add modifier 95 for video (do not use for phone, instead use 93570-47) [facility] [place] 04/08/2022 Estab. patient 20-29min; 1 stable chronic or 2 minor; add add modifier 95 for video, modifier 93 for phone [facility] [place] 05/09/2022 Hypertensive heart disease w ith heart [...] tive Time Current Smoking Status Never smoker 2024-06-13 4 Sex Female History of Procedures Procedures Service Procedure code Service date Servicing provider Phone# New patient,40-59min; chronic exacerbation, 2 stable chronic or 1 acute illness add add modifier 95 for video (do not use for phone, instead use 41079-71) 33092 2022-04-09 No Data Available No Data Availa [...] 95 for video, modifier 93 for phone 20311 2022-05-09 No Data Available No Data Availa [...] using a udio and video over the [employer] tablet. Time spent in visit: 20 minutesToday, patient has chief complaint of: monitoring of chronic conditions 2022-05-09 Most recent hospital stay(s) or ER visit(s) and precipitating factors: denies 2022-05-09 Open HEDIS Measure falguni carbajal: done
--- OUTSIDE RECORDS SUMMARY | 2024-07-05 10:26 | XMS_ITS | Clinical Summary ---
Author Organization [facility] Address [address] [address] Care Team Providers Care Atmospheric Technician Name Role Phone Frances Fowler RN Primary [...] DAILY FOR 2 DAYS. 12/21/2020 Active Creon 67644-09679 units capsule TAKE 1 CAPSULE BY MOUTH [...] by mouth 02/12/2021 Active ergocalciferol 1.25 MG (57560 UT) capsule TAKE 1 CAPSULE BY MOUTH [...] DUAL ELIG PLAN DUAL ELIG Care Teams Atmospheric Technician Relationship Specialty Start Date End Date Frances Fowler RN PCP - General Family Medicine 11/09/20
--- OUTSIDE RECORDS SUMMARY | 2024-07-05 10:26 | XMS_ITS | Encounter Summary ---
Author Organization [employer] Address [address] [facility] [address] 7t [place] [address] Care Team Providers Care It Telecom Technician Name Role Phone Mary Flores MD Primary Care Provider Encounter Details Date Type Department Care Team (Late st Contact Info) Description 12/17/2023 Orders Only [facility] MEDICINE 230 [place] [address] Mary Flores MD 230 [place] [address] Social History Tobacco Use Types Packs/Day Years [...] documented as of this encounter Care Teams It Telecom Technician Relationship Specialty Start Date End Date Mary Flores MD [address] [place] [address] PCP - General Family Medicine 01/05/22 documented as of this encounter
--- OUTSIDE RECORDS SUMMARY | 2024-07-05 10:26 | XMS_ITS | Encounter Summary ---
Author Organization [employer] Address [address] [address] 7t [place] [address] Care Team Providers Care Space Systems Operations Manager Name Role Phone Mary Flores MD Primary Care Provider [phone] Reason for Visit * Reason Onset Date Comments Appointment Request 06/13/2023 Encounter Details Date Type Department Care Team ([facility] st Contact Info) Description 06/13/2023 Telephone [facility] MEDICINE [address] [place] [address] Mary Flores MD [address] [place] [address] Appointment Request Social History Tobacco Use Types [...] on filedocumented in this encounter Care Teams Space Systems Operations Manager Relationship Specialty Start Date End Date Mary Flores MD [address] [place] [address] PCP - General Family Medicine 01/05/22 documented as of this encounter
--- OUTSIDE RECORDS SUMMARY | 2024-07-05 10:26 | XMS_ITS | Data Portability ---
Author Organization [facility] [facility] Address [address] [place] [id number] Care Team Providers Care Resourcing Consultant Name Role Phone HIM CCA Referring Provider [phone] Assessment Encounter Date Assessment Date Assessment LastModified by Organization Details LastModified Time 08/21/2023 08/21/2023 I provided real -time medical direction via phone for this encounter, and was available for additional phone based assistance as needed. I have reviewed and agree with the Assessment and Plan as documented by the Overhead Cleaner Maintainer. We discussed the diagnostic uncertainty of home visits and the risk associated with this. In this case the patient and I felt this to be an acceptable and reasonable amount of risk given the benefit of avoiding an ED visit. 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 Advised to follow-up with PCP tomorrow if develops CP/severe SOB/turning blue/uncontrolle d n/v/d or black/bloody emesis or stool/ AMS/ syncope/ hi fever unresponsive to APAP to call 911- verbalized understanding of instruction [email or web address] Not available 08/21/2023 11:52:46 Plan of Treatment Reminders Order Date Submit Date Provider Last Modified By Organization Details Last Modified Time Details Appointments None recorded. Lab BMP, serum or plasma 2023 024 [email or web address] 0 [facility], [address] [place] [address], [id number], 4 11:57:22 rapid SARS CoV 2 Ag, QL IA, respiratory specimen 2023 024 [email or web address] 0 [facility], [address] [place] [address], [id number], 4 11:57:26 rapid flu (A+B) 2023 024 [email or web address] 0 [facility], [address] [place] [address], [id number], 11:57:27 Referral None recorded. Procedures None recorded. Surgeries None recorded. Imaging None recorded. Medication Orders ondansetron 4 mg disintegrat ing tablet 2023 [facility], [address] [place] [address], [id number], 4 14:03:53 ipratropium 0.5 mg-albutero l 3 mg (2.5 mg base)/3 mL nebulizatio n soln 2023 [email or web address] 0 Not available 11:57:22 prednisone 20 mg tablet 2023 [email or web address] 0 Not available 11:57:22 prednisone [address] [facility], [address] [place] [address], [id number], 4 12:59:13 Tylenol Arthritis Pain 650 mg tablet,exte nded release 2023 [facility], [address] [place] [address], [id number], 4 14:44:00 benzonatate [address] [facility], [address] [place] [address], [id number], 4 11:39:43 Patient TargetsNo targets recorded. Patient InstructionsNo instructions recorded. Reason for Referral None Reported. Results Created Date Observation Date Name Description Value Unit Range Abnormal Flag Note LastModifiedBy Organization Detail LastModifiedTime 08/21/19 24 08/21/2023 BMP, serum or plasm a BUN 18 Not Available [facility] [address] [place] [address], [id number], 08/21/2023 11:23:37 08/21/19 24 08/21/2023 BMP, serum or plasm a Ca Ionize d calckumaru m 1.21 Not Available Main - [address], [address], 08/21/2023 11:23:37 08/21/19 24 08/21/2023 BMP, serum or plasm a CI- 107 Not Available Main - [facility] [address], [address], 08/21/2023 11:23:37 08/21/19 24 08/21/2023 BMP, serum or plasm a CRE 0.54 Not Available [facility] - [facility] [address], [address], 08/21/2023 11:23:37 08/21/19 24 08/21/2023 BMP, serum or plasm a GLU 89 Not Available Main - [facility] [address], [address], 08/21/2023 11:23:37 08/21/19 24 08/21/2023 BMP, serum or plasm a K+ 3.9 Not Available Main - [facility] [address], [address], 08/21/2023 11:23:37 08/21/19 24 08/21/2023 BMP, serum or plasm a Na+ 143 Not Available [facility] - [facility] [address], [address], 08/21/2023 11:23:37 08/21/19 24 08/21/2023 BMP, serum or plasm a tCO2 26.4 Not Available [facility] - [facility] [address], [address], 08/21/2023 11:23:37 08/21/19 24 08/21/2023 rapid SARS CoV 2 Ag, QL IA, respi rator y speci men rapid SARS CoV 2 Ag, QL IA, respiratory specimen negati ve Not Available [facility] ed [address] [place] [address], [address], 08/21/2023 11:23:43 08/21/19 24 08/21/2023 rapid flu (A+B) Flu negati ve Not Available [facility] ed [address] [place], [address], 08/21/2023 11:23:44 Result Notes None recorded. Medical Equipment None Reported. Allergies Allergen ID Allergen Name Allergen Category Reaction Reaction Severity Criticality Documentation Date Start Date Code Code System Note Provider Name and Address Organization Details Recorded Time 4857 morphine medicatio n Not available Not available Not available 08/21/2023 7052 RxNorm Not Available [facility] - production 04:14:38 Medications Name Sig Start Date Stop Date Status Note LastModified by Organization Details LastModified Time pulse oximet airial [id number] USE DIRECTED EVERY DAY IN THE MORNING [...] pantoprazole 40 mg tablet,delay ed release FARRAH FERNY TABLETA DIARIAMENTE ANTES DEL DESAYUNO active Not [...] Address Organization Details Last Updated DateTime 4 94344.2 16 g 97.8 [degF] 16 /min 76 [...] SNOMED-CT Code Diagnosis ICD10 Code Diagnosis Note 53830 Genevieve Stover MD [facility] - [facility] [address] [place] [phone] 08/21/2023 10:58:16 08/21/2023 14:52:00 Upper respiratory infection 60483816 J06.9 With COPD residual from influenza. Patient [...] Briceño Member ID Guarantor Name 08/21/2023 1 [facility] - DOS ON OR AFTER 2022 - DUAL ELIGIBLE - FDC OPTIONS AND ONE CARE (MEDICARE REPLACEMENT/ADV ANTAGE - HMO) Margarita Ordonez [id number] Margarita Ordonez Notes Date Note Type Note Provider Name and Address Organization Details Recorded Time 08/21/2023 text/html HPI: Call to Margarita Zamora reports continues to have cough, SOB and wheezing. Pt seen at [facility] on [facility]12 and dx with Flu A. [...] .................. .................. ............... [facility] Nurse Triage Notes ([place]): Comments: HPI reviewed SEGMD: As above- hx HTN/COPD/ HLD/ Chronic pain- limited old records available in [facility]. LD Tylenol was 3 days ago for [...] .................. .................. .................. .................. .................. .................. .... Overhead Cleaner Maintainer Note From Kun Cruz: Pt co cough [...] negative. Lungs rhonchi with slight wheezing. Afebrile. [facility] and duo neb, 40mg prednisone given, RX for prednisone, benzonatate,zofran and Tylenol called in. Pt advised to follow up with pcp tomorrow. Pt advised to increase neb treatments from 3 xper day to 4 x? s per day. Pt advised to discontinue use of naprasin( SEGMD: Naprosyn) while ill due to increased BP. Pt education on signs indicating the ER. Overhead Cleaner Maintainer Allergies: Morphine .................. .................. .................. .................. .................. .................. .................. ............... Disposition: Fulfilled Genevieve Stover MD [address] [facility],[address] [facility], [place], [address], CHARANJIT YEUNG 08/21/2023 12:03:44 OBGyn Episode No OBEpisode recorded.
--- OUTSIDE RECORDS SUMMARY | 2024-07-05 10:26 | XMS_ITS | Encounter Summary ---
Author Organization [employer] Address [address] [facility] [address]t [place] [address] Care Team Providers Care Digital Forensic Analyst Name Role Phone Mary Flores MD Primary Care Provider [phone] Reason for Visit * Reason Comments Med Refill Encounter Details Date Type Department Care Team ([facility] st Contact Info) Description 04/19/2024 Refill [facility] 230 [place], [place] [phone] Olga Dillard ANP 230 [place] [address] Nasal congestion Social History Tobacco Use Types [...] documented as of this encounter Care Teams Digital Forensic Analyst Relationship Specialty Start Date End Date Mary Flores MD 230 [place] [address] PCP - General Family Medicine 01/05/22 documented as of this encounter
--- OUTSIDE RECORDS SUMMARY | 2024-07-05 10:26 | XMS_ITS | Encounter Summary ---
Author Organization [employer] Address [address] [place] [address] Care Team Providers Care Airplane Cabin Attendant Name Role Phone Mary Flores MD Primary Care Provider [phone] Reason for Visit * Reason Comments Med Change Request Encounter Details Date Type Department Care Team ([facility] st Contact Info) Description 12/05/2023 Refill [facility] 230 [place], [place] [phone] Tyrel Trivedi MD [address] [place] [address] Social History Tobacco Use Types Packs/Day Years [...] documented as of this encounter Care Teams Airplane Cabin Attendant Relationship Specialty Start Date End Date Mary Flores MD [address] [place] [address] PCP - General Family Medicine 01/05/22 documented as of this encounter
--- OUTSIDE RECORDS SUMMARY | 2024-07-05 10:26 | XMS_ITS | Encounter Summary ---
Author Organization [employer] Address [address] [facility] [address] [place] [address] Care Team Providers Care Writer Technical Publications Name Role Phone Mary Flores MD Primary Care Provider [phone] Reason for Visit * Reason Onset Date Comments filling fell out 01/19/2024 Encounter Details Date Type Department Care Team ([facility] st Contact Info) Description 01/19/2024 Telephone [facility] [address] [place] [address] Sari Mckinnon, DDS [address] [place] [address] filling fell out Social History Tobacco Use [...] documented as of this encounter Care Teams Writer Technical Publications Relationship Specialty Start Date End Date Mary Flores MD [address] [place] [address] PCP - General Family Medicine 01/05/22 documented as of this encounter
--- OUTSIDE RECORDS SUMMARY | 2024-07-05 10:26 | XMS_ITS | Encounter Summary ---
Author Organization [employer] Address [address] [facility] [address] [address] [place] [address] Care Team Providers Care Um Rn Name Role Phone Mary Flores MD Primary Care Provider [phone] Encounter Details Date Type Department Care Team ([facility] st Contact Info) Description 08/27/2022 Orders Only [facility] 230 [place] [address] Mary Flores MD [address] [place] [address] Social History Tobacco Use Types Packs/Day Years [...] on filedocumented in this encounter Care Teams Um Rn Relationship Specialty Start Date End Date Mary Flores MD [address] [place] [address] PCP - General Family Medicine 01/05/22 documented as of this encounter
--- OUTSIDE RECORDS SUMMARY | 2024-07-05 10:26 | XMS_ITS | Encounter Summary ---
Author Organization [employer] Address [address] [facility] [facility] [address] [place] [address] Care Team Providers Care Body Sander Name Role Phone Mary Flores MD Primary Care Provider [phone] Reason for Visit * Reason Comments Med Refill Encounter Details Date Type Department Care Team ([facility] st Contact Info) Description 06/14/2024 Refill [facility] MEDICINE 230 [place], [place] [phone] Mary Flores MD 230 [place], [place] [phone] Social History Tobacco Use Types Packs/Day Years [...] documented as of this encounter Care Teams Body Sander Relationship Specialty Start Date End Date Mary Flores MD [address] [place] [address] PCP - General Family Medicine 01/05/22 documented as of this encounter
--- OUTSIDE RECORDS SUMMARY | 2024-07-05 10:26 | XMS_ITS | Encounter Summary ---
Author Organization [employer] Address [address] [facility] [address] [place] [address] Care Team Providers Care Special Machine Operator Name Role Phone Mary Flores MD Primary Care Provider [phone] Encounter Details Date Type Department Care Team (Late st Contact Info) Description 09/12/2023 Orders Only [facility] MEDICINE 230 [place] [address] ProviderElliott MD Social History Tobacco Use Types [...] on filedocumented in this encounter Care Teams Special Machine Operator Relationship Specialty Start Date End Date Mary Flores MD 230 [place] [address] PCP - General Family Medicine 01/05/22 documented as of this encounter
--- OUTSIDE RECORDS SUMMARY | 2024-07-05 10:26 | XMS_ITS | Encounter Summary ---
Author Organization [employer] Address [address] 7t [place] [address] Care Team Providers Care Supervisor Nurse Name Role Phone Mary Flores MD Primary Care Provider [phone] Reason for Visit * Reason Onset Date Comments Durable Medical Equipment 05/27/2024 Encounter Details Date Type Department Care Team ([facility] st Contact Info) Description 05/27/2024 Telephone [facility] MEDICINE [address] [place] [address] Mary Flores MD 230 [place] [address] Durable Medical Equipment Social History Tobacco Use [...] encounter Miscellaneous Notes * Telephone Encounter - Radha Bonner - 07/02/2024 11:28 AM EST Call was made to [facility] to check on the status of incontinence items. Staff assigned to this was unavailable at the time of call. Detailed message was left to return call to office. * Telephone Encounter - Marika Stoll - 06/24/2024 11:01 AM EST Tc from pt requesting status on medical supplies. -Diapers size small -wipes -bed pads * Telephone Encounter - Richard Rodriguez - [...] documented as of this encounter Care Teams Supervisor Nurse Relationship Specialty Start Date End Date Mary Flores MD [address] [place] [id number] PCP - General Family Medicine 01/05/22 documented as of this encounter
--- OUTSIDE RECORDS SUMMARY | 2024-07-05 10:26 | XMS_ITS | Encounter Summary ---
Author Organization [employer] Address [address] 7t [place] [address] Care Team Providers Care Internist Medical Doctor Md Name Role Phone Mary Flores MD Primary Care Provider [phone] Encounter Details Date Type Department Care Team (Late st Contact Info) Description 12/05/2023 Orders Only [facility] MEDICINE 230 [place] [address] Tyrel Trivedi MD 230 [place] [address] Social History Tobacco Use Types Packs/Day Years [...] documented as of this encounter Care Teams Internist Medical Doctor Md Relationship Specialty Start Date End Date Mary Flores MD [address] [place] [phone] PCP - General Family Medicine 01/05/22 documented as of this encounter
--- OUTSIDE RECORDS SUMMARY | 2024-07-05 10:26 | XMS_ITS | Clinical Summary ---
Author Organization [employer] Address [address] [facility] 7t [place] [address] Care Team Providers Care Cadastral Engineer Name Role Phone Mary Flores MD Primary Care Provider [phone] Allergies Active Allergy Reactions Criticality Noted Date Comments Morphine Rash Low 09/29/2019 Medications albuterol (2.5 MG/3ML) 0.083% nebulizer solution INHALE 1 AMPULE USING A NEBULIZER EVERY 4 HOURS NEEDED FOR WHEEZING OR SHORTNESS OF BREATH Active albuterol 108 (90 Base) MCG/ACT inhaler INHALE 2 PUFFS BY MOUTH EVERY 4 TO 6 HOURS NEEDED Active Linzess 290 MCG capsule TAKE 1 CAPSULE BY MOUTH EVERY MORNING Active montelukast (Singulair) 10 MG tablet TAKE 1 TABLET BY MOUTH EVERY DAY Active Daliresp 500 MCG tablet TAKE 1 TABLET BY MOUTH EVERY DAY Active Blood Pressure kit Use as directed for blood pressure Active betamethasone dipropionate (Diprolene) 0.05 % ointment APPLY TO THE AFFECTED AREA(S) OF HANDS DAILY DIRECTED FOR ECZEMA 15 g 1 023 Active alendronate (Fosamax) 70 MG tablet FARRAH FERNY TABLETA SEMANAL. 12 tablet 3 024 Active Spiriva Respimat 2.5 MCG/ACT inhaler Active Misc. Devices (Fingertip Pulse Oximeter) misc 1 each in the morning. 1 each 024 Active naproxen (Naprosyn) 250 MG tablet TAKE 1 TABLET BY MOUTH TWICE DAILY IN THE MORNING AND AT BEDTIME IF NEEDED FOR MILD PAIN 60 tablet Active cholecalciferol (D3 Super Strength) 50 MCG (2000 UT) capsule Take 1 capsule (50 mcg) by mouth Once per day. 30 capsule 5 Active GaviLyte-G 236 g solution Active Creon 56723-85964 units capsule TAKE 1 CAPSULE BY MOUTH FOUR TIMES DAILY WITH MEALS OR SNACKS AND AT BEDTIME Active oxyCODONE (Roxicodone) 5 MG immediate release tablet Active imipramine (Tofranil) 50 MG tablet TAKE 2 TABLETS BY MOUTH EVERY DAY AT BEDTIME Active lidocaine (Lidoderm) 5 % patchIndications: Trapezius muscle spasm Apply 1 patch topically Once per day. Remove & discard patch within 12 hours or as directed by MD. 30 patch 3 Active guaiFENesin-codei ne (Robitussin-AC) 100-10 MG/5ML syrup Take 5 mL by mouth at bedtime. 237 mL Active atorvastatin (Lipitor) 10 MG tabletIndications :Other hyperlipidemia Take 1 tablet (10 mg) by mouth at bedtime. 90 tablet 3 Active fluticasone (Flonase) 50 MCG/ACT nasal sprayIndications: Nasal congestion Administer 1-2 sprays into each nostril Once per day. Shake gently. Before first use, prime pump. After use, clean tip and replace cap. 48 g Active ipratropium-albut sunny (Duo-Neb) 0.5-2.5 mg/3 mL nebulizer solutionIndicatio ns:Chronic obstructive pulmonary disease, unspecified COPD type (CMS/HCC) Take 3 mL by nebulization Every 4-6 hours as needed for wheezing. 75 mL 2 Active Alcohol Swabs ([employer] Alcohol Prep Pads) 70 % pads Active Bisacodyl EC 5 MG EC tablet TAKE 1 TABLET BY MOUTH EVERY DAY IN THE MORNING AND TAKE 2 TABLETS BY MOUTH EVERY DAY AT BEDTIME Active Blood Glucose Monitoring Suppl (FreeStyle [place] Lite) w/Device kit Active cetirizine (ZyrTEC) 10 MG tablet Take 1 tablet by mouth Once per day. Active docusate sodium (Colace) 100 MG capsule Take 1 capsule by mouth 2 times daily. Active budesonide-formot sunny (Symbicort) 160-4.5 MCG/ACT inhaler Inhale 2 puffs every 12 (twelve) hours. Rinse mouth with water and expectorate after each dose to prevent oral/esophageal candidiasis or fungal infection. Active FreeStyle lancets Active lisinopril 40 MG tablet Take 1 tablet (40 mg) by mouth Once per day. 90 tablet Active omeprazole (PriLOSEC) [address] capsule Take 1 capsule by mouth Once per day. Active metFORMIN (Glucophage) 500 MG tablet TAKE 1 TABLET BY MOUTH EVERY DAY IN MORNING 90 tablet 3 025 Active metFORMIN (Glucophage) 500 MG tablet Take tablet in the morning 90 tablet 3 024 2024 Discontinued Active Problems Problem Noted Date Diagnosed Date [...] copies of her exams and tests from [place] Hiatal hernia 08/06/2021 Obstructive sleep apnea syndrome [...] Encounters Date Type Department Care Team Description 06/14/2024 Refill [facility] MEDICINE [address] [place] [address] Mary Flores MD 05/27/2024 Telephone [facility] MEDICINE [address] [place] [address] Mary Flores MD Durable Medical Equipment 04/30/2024 10:30 AM EST Office Visit [facility] OPTOMETRY [address] [place] [address] Jill Anderson, OD Diabetes type 2, 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); Chorioretinal scar of both eyes; Peripheral drusen of left eye; Pseudophakia of both eyes; Presbyopia 04/30/2024 Travel 04/21/2024 Refill [facility] MEDICINE [address] [place] [address] Mary Flores MD 04/19/2024 Refill [facility] WALK-IN CENTER [address] [place] [address] Olga Dillard ANP Nasal congestion 04/14/2024 Telephone [facility] MEDICINE [address] [place] [address] Mary Flores MD telephone call from Last 3 Months Immunizations Name Administration [...] 1-dose 75+ series) 01/25/2024 Diabetes: Hemoglobin A1C 02/10/2024 024, 08/06/2023, 07/23/2023, Additional history exists SDOH Screening 07/14/2024 07/15/2023 Lipid Panel 07/22/2024 07/23/2023, 05/0 07/2021, 11/09/2020 Depression Screening 11/09/2024 11/10/2023, 11/10/19 Diabetes: [...] complication, without long-term current use of insulin (CMS/HCC) LIPID PANEL, STANDARD Routine 07/23/2023 3:35 PM EDT 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, without long-term current use of insulin (CMS/[facility]) BITEWINGS - 4 RADIOGRAPHIC IMAGES Routine 08/29/2022 [...] Media Lot # [id number] Lot# Expiration Date ,026 Blood 11/10/2023 2:27 PM EDT Mary Flores MD POINT OF CARE TEST ENTER/EDIT ORDERABLES Final Result * Lipid Panel, Standard (07/23/2023 3:35 PM EDT) Triglycerides 142 <150 mg/dL [facility] Comment:Desirable Triglyceri de: less than 150 mg/dLBorderline High Triglyceride 150-199 mg/dLHigh Triglyceride: 200-499 mg/dLVery High Triglyceride: greater than or equal to 5OO mg/dL Cholesterol 152 <200 mg/dL [facility] Comment:Desirable Cholestero l: less than 200 mg/dLBorderline High Cholesterol: 200-239 mg/dLHigh Cholesterol: greater than 239 mg/dL LDL Cholesterol Calculated 77 <100 mg/dL [facility] Comment:Desirable LDL: less than 100 mg/dLNear Optimal/Above Optimal LDL: 110- 129 mg/dLBorderline High LDL: 130-159 mg/dLHigh LDL: 160-189 mg/dLVery High LDL: greater than or equal to 190 mg/dL HDL Cholesterol 47 >40 mg/dL [facility] Comment:Desirable HDL: great er than 40 mg/dL Note: This HDL assay may give artificially low results in patients with liver disease. Blood Venous blood specimen / Unknown 07/23/2023 3:35 PM EDT 07/23/2023 4:17 PM EDT Mary Flores MD LAB BLOOD ORDERABLES Final Res ult [facility] [address] [place], [place] [phone] * HEPATITIS C AB W/REFL TO HCV RNA, QN, PCR (09/19/2021 9:58 AM EDT) HEPATITIS C ANTIBODY NON-REACT SHANKAR NON-REACT SHANKAR [facility] INDEX 0.01 <1.00 [facility] Comment: ?? HCV antibody was non-reactive. There is no laboratory ?? evidence of HCV infection. ?? In most cases, no further action is required. However, if recent HCV exposure is suspected, a test for HCV RNA (test code 48949) is suggested. ?? For additional information please refer to [email or web address]/[email or web address] (This link is being provided for informational/ educational purposes only.) ?? 09/19/2021 9:58 AM EDT Frances Malcolm OCEAN EXPORT COORDINATOR HISTORICAL/NON ORDERABLE LABS Final Result Performing Organization Address [facility] de Phone Number [facility] [address] [place] [address], * ALBUMIN, RANDOM URINE W/CREATININE (09/13/2021 2:19 [...] LAB SYSTEM 09/13/2021 2:19 PM EDT Frances Malcolm OCEAN EXPORT COORDINATOR LAB URINE ORDERABLES Final Res ult Performing Organization Address [facility] de Phone Number [facility] [address] [place] [address], * Hm Colonoscopy (01/19/2021 8:45 AM EDT) us Historical Provider HEALTH MAINTENANCE Final Result from Last 3 Months or Most Recently Relevant to Health Maintenance Insurance [facility] MEDICAID STAND ADULT Care Teams Cadastral Engineer Relationship Specialty Start Date End Date Mray Flores MD [address] [place] [address] [phone] PCP - General Family Medicine 01/05/22
--- OUTSIDE RECORDS SUMMARY | 2024-07-05 10:26 | XMS_ITS | Encounter Summary ---
Author Organization [facility] Address [address] [facility] 7t [place] [address] Care Team Providers Care Tobacco Wetter Name Role Phone Mary Flores MD Primary Care Provider [phone] Encounter Details Date Type Department Care Team (Latest Contact Info) Description 01/29/2021 Abstract [facility] CONVERSIONS Dental, Provider, DDS Social History [...] on filedocumented in this encounter Care Teams Tobacco Wetter Relationship Specialty Start Date End Date Mary Flores MD 230 [place] [address] PCP - General Family Medicine 01/05/22 documented as of this encounter
== END 2024-07-05 10:12 | disposition home or self-care (01) ==
PROVIDERS: PCP General Practice; Visit Provider Hospitalist
DX: J44.9 Chronic obstructive pulmonary disease, unspecified (principal); J45.50 Severe persistent asthma, uncomplicated; G47.33 Obstructive sleep apnea (adult) (pediatric); R91.1 Solitary pulmonary nodule; K21.9 Gastro-esophageal reflux disease without esophagitis; J98.11 Atelectasis
CPT/HCPCS: 99214; G2211

== ENCOUNTER 2024-07-05 09:35 | Outpatient (REF) | payer OTHER, SELFPAY ==
[2024-07-05 10:48] LABS: MANUAL DIFF FLAG NO
[2024-07-05 11:34] LABS: Basophils Absolute Auto 0.1 X10*3/uL (0.0-0.2); Eosinophils Absolute Auto 0.2 X10*3/uL (0.0-0.4); Eosinophils Percent Auto 4.1 % (0-4); Hematocrit 42.8 % (37.0-47.0); Hemoglobin 14.1 g/dl (12.0-16.0); Imm Gran Abs Auto 0.01 X10*3/uL (0.00-0.03); Imm Gran Pct Auto 0.2 % (0.0-0.4); Lymphocytes Absolute Auto 1.4 X10*3/uL (1.2-4.9); Lymphocytes Percent Auto 27.6 % (20-40); Mean Corpuscular HGB Conc 32.9 g/dl (31.0-35.0); Mean Corpuscular Hemoglobin 29.9 pg (27.0-33.0); Mean Corpuscular Volume 90.9 fL (80.0-98.0); Mean Platelet Volume 11.3 fL (9.4-12.3); Monocytes Absolute Auto 0.5 X10*3/uL (0.1-1.2); Monocytes Percent Auto 8.9 % (2-11); Neutrophils Percent Auto 58.2 % (45-73); Platelet Count 287 X10*3/uL (160-400); Red Blood Count 4.71 X10*6/uL (4.20-5.50); Red Cell Distribution Width 12.7 % (11.0-16.0); White Blood Count 5.2 X10*3/uL (4.8-10.8)
--- OUTSIDE RECORDS SUMMARY | 2024-07-05 11:37 | XMS_ITS | Encounter Summary ---
Author Organization [employer] [facility] Address [address] [facility] 7t [place] [address] Care Team Providers Care Textile Slitting Machine Operator Name Role Phone Mary Flores MD Primary Care Provider Encounter Details Date Type Department Care Team (Latest Contact Info) Description 01/29/2021 Abstract [facility] CONVERSIONS Dental, Provider, DDS Social History [...] on filedocumented in this encounter Care Teams Textile Slitting Machine Operator Relationship Specialty Start Date End Date Mary Flores MD [address] [place] [address] PCP - General Family Medicine 01/05/22 documented as of this encounter
--- OUTSIDE RECORDS SUMMARY | 2024-07-05 11:37 | XMS_ITS | Encounter Summary ---
Author Organization [facility] [facility] Address [address] [facility] 7t [place] [address] Care Team Providers Care Husbandry Person Name Role Phone Mary Flores MD Primary Care Provider [phone] Encounter Details Date Type Department Care Team (Late st Contact Info) Description 08/01/2022 Orders Only [facility] MEDICINE [address] [place] [address] Mary Flores MD [address] [place] [address] Blurry vision (Primary Dx) Social History Tobacco [...] disturbances documented in this encounter Care Teams Husbandry Person Relationship Specialty Start Date End Date Mary Flores MD [address] [place], [place] [phone] PCP - General Family Medicine 01/05/22 documented as of this encounter
--- OUTSIDE RECORDS SUMMARY | 2024-07-05 11:37 | XMS_ITS | Encounter Summary ---
Author Organization [employer] Address [address] [place] [address] Care Team Providers Care Security Operations Engineer Name Role Phone Mary Flores MD Primary Care Provider [phone] Reason for Visit * Reason Onset Date Comments Durable Medical Equipment 07/25/2023 Encounter Details Date Type Department Care Team ([facility] st Contact Info) Description 07/25/2023 Telephone [facility] MEDICINE [address] [place] [address] Mary Flores MD [address] [place] [address] Durable Medical Equipment Social History Tobacco Use [...] requesting DME supplies to be sent to [facility] - bed pads - L pull ups - oximeter documented in this encounter Plan of Treatment Not on file documented as of this encounter Visit Diagnoses Not on filedocumented in this encounter Care Teams Security Operations Engineer Relationship Specialty Start Date End Date Mary Flores MD [address] [place] [address] PCP - General Family Medicine 01/05/22 documented as of this encounter
--- OUTSIDE RECORDS SUMMARY | 2024-07-05 11:37 | XMS_ITS | Encounter Summary ---
Author Organization [facility] Address [address] [facility] 7t [place] [address] Care Team Providers Care Line Service Person Name Role Phone Mary Flores MD Primary Care Provider [phone] Reason for Visit * Reason Comments Med Refill Encounter Details Date Type Department Care Team (Late st Contact Info) Description 08/15/2022 Refill [facility] WALK-IN CENTER [address] [place], [place] [phone] Keri Ochoa MD [address] [place], [place] [phone] Social History Tobacco Use Types Packs/Day Years [...] on filedocumented in this encounter Care Teams Line Service Person Relationship Specialty Start Date End Date Mary Flores MD [address] [place] [address] [phone] PCP - General Family Medicine 01/05/22 documented as of this encounter
--- OUTSIDE RECORDS SUMMARY | 2024-07-05 11:37 | XMS_ITS | Encounter Summary ---
Author Organization [employer] Address [address] 7t [place] [address] Care Team Providers Care Delivery Driver Name Role Phone Mary Flores MD Primary Care Provider [phone] Encounter Details Date Type Department Care Team (Late st Contact Info) Description 09/12/2023 Orders Only [facility] MEDICINE [address] [place] [address] ProviderElliott MD Social History Tobacco Use Types [...] on filedocumented in this encounter Care Teams Delivery Driver Relationship Specialty Start Date End Date Mary Flores MD [address] [place] [address] PCP - General Family Medicine 01/05/22 documented as of this encounter
--- OUTSIDE RECORDS SUMMARY | 2024-07-05 11:37 | XMS_ITS | Encounter Summary ---
Author Organization [employer] Address [address] 7[address] [place] [address] Care Team Providers Care Acoustics Teacher Name Role Phone Mary Flores MD Primary Care Provider [phone] Encounter Details Date Type Department Care Team ([facility] st Contact Info) Description 08/27/2022 Orders Only [facility] MEDICINE [address] [place] [address] Mary Flores MD [address] [place] [address] Social History Tobacco Use Types Packs/Day Years [...] on filedocumented in this encounter Care Teams Acoustics Teacher Relationship Specialty Start Date End Date Mary Flores MD [address] [place] [phone] PCP - General Family Medicine 01/05/22 documented as of this encounter
--- OUTSIDE RECORDS SUMMARY | 2024-07-05 11:37 | XMS_ITS | Clinical Summary ---
Author Organization [facility] Address [address] [address] Care Team Providers Care Sifter Operator Name Role Phone Frances Fowler RN Primary [...] DAILY FOR 2 DAYS. 12/21/2020 Active Creon 13034-90170 units capsule TAKE 1 CAPSULE BY MOUTH [...] by mouth 02/12/2021 Active ergocalciferol 1.25 MG (82246 UT) capsule TAKE 1 CAPSULE BY MOUTH [...] DUAL ELIG PLAN DUAL ELIG Care Teams Sifter Operator Relationship Specialty Start Date End Date Frances Fowler RN PCP - General Family Medicine 11/09/20
--- OUTSIDE RECORDS SUMMARY | 2024-07-05 11:37 | XMS_ITS | Encounter Summary ---
Author Organization [employer] [facility] Address [address] [place] [address] [address] [place] [address] Care Team Providers Care Dulite Machine Bluer Name Role Phone Mary Flores MD Primary Care Provider [phone] Reason for Visit * Reason Onset Date Comments Referral 08/01/2022 Encounter Details Date Type Department Care Team ([facility] st Contact Info) Description 08/01/[address] [facility] MEDICINE [address] [place] [address] Mary Flores MD [address] [place] [address] Referral Social History Tobacco Use Types Packs/Day [...] [facility] Please contact pt at [phone] croatian Speaker documented in this encounter Plan of Treatment Not on file documented as of this encounter Visit Diagnoses Not on filedocumented in this encounter Care Teams Dulite Machine Bluer Relationship Specialty Start Date End Date Mary Flores MD [address] [place] [address] PCP - General Family Medicine 01/05/22 documented as of this encounter
--- OUTSIDE RECORDS SUMMARY | 2024-07-05 11:38 | XMS_ITS | Encounter Summary ---
Author Organization [employer] Address [address] [facility] [facility] [address] 7t [place] [address] Care Team Providers Care Crane Hoist Or Lift Operator Name Role Phone Mary Flores MD Primary Care Provider Reason for Visit * Reason Comments Med Refill Encounter Details Date Type Department Care Team ([facility] st Contact Info) Description 06/14/[address] [facility] MEDICINE [address] [place], [place] [phone] Mary Flores MD 230 [place], [place] [phone] Social History Tobacco Use Types Packs/Day Years [...] documented as of this encounter Care Teams Crane Hoist Or Lift Operator Relationship Specialty Start Date End Date Mary Flores MD [address] [place] [phone] PCP - General Family Medicine 01/05/22 documented as of this encounter
--- OUTSIDE RECORDS SUMMARY | 2024-07-05 11:38 | XMS_ITS | Encounter Summary ---
Author Organization [employer] Address [address] 7[address] [place] [address] Care Team Providers Care Physician Support Coordinator Name Role Phone Mary Flores MD Primary Care Provider [phone] Reason for Visit * Reason Onset Date Comments Durable Medical Equipment 05/27/2024 Encounter Details Date Type Department Care Team ([facility] st Contact Info) Description 05/27/2024 Telephone [facility] MEDICINE [address] [place] [address] Mary Flores MD [address] [place] [address] Durable Medical Equipment Social History Tobacco Use [...] documented as of this encounter Care Teams Physician Support Coordinator Relationship Specialty Start Date End Date Mary Flores MD [address] [place] [phone] PCP - General Family Medicine 01/05/22 documented as of this encounter
--- OUTSIDE RECORDS SUMMARY | 2024-07-05 11:38 | XMS_ITS | Encounter Summary ---
Author Organization [employer] Address [address] 7t [place] [address] Care Team Providers Care Button Pusher Name Role Phone Mary Flores MD Primary Care Provider [phone] Reason for Visit * Reason Onset Date Comments filling fell out 01/19/2024 Encounter Details Date Type Department Care Team ([facility] st Contact Info) Description 01/19/[address] [facility] ADULT DENTAL [address] [place] [address] Sari Mckinnon, DDS [address] [place] [address] filling fell out Social History Tobacco Use [...] documented as of this encounter Care Teams Button Pusher Relationship Specialty Start Date End Date Mary Flores MD [address] [place] [address] PCP - General Family Medicine 01/05/22 documented as of this encounter
--- OUTSIDE RECORDS SUMMARY | 2024-07-05 11:38 | XMS_ITS | Encounter Summary ---
Author Organization [employer] Address [address] 7[address] [place] [address] Care Team Providers Care Machine Feller Name Role Phone Mary Flores MD Primary Care Provider [phone] Encounter Details Date Type Department Care Team (Late st Contact Info) Description 12/17/2023 Orders Only [facility] MEDICINE [address] [place] [address] Mary Flores MD [address] [place] [address] Social History Tobacco Use Types Packs/Day Years [...] documented as of this encounter Care Teams Machine Feller Relationship Specialty Start Date End Date Mary Flores MD [address] [place] [address] PCP - General Family Medicine 01/05/22 documented as of this encounter
--- OUTSIDE RECORDS SUMMARY | 2024-07-05 11:38 | XMS_ITS | Encounter Summary ---
Author Organization [employer] Address [address] 7t [place] [address] Care Team Providers Care Packing Tractor Machine Operator Name Role Phone Mary Flores MD Primary Care Provider [phone] Encounter Details Date Type Department Care Team (Late st Contact Info) Description 12/05/2023 Orders Only [facility] MEDICINE 230 [place] [address] Tyrel Trivedi MD [address] [place] [address] Social History Tobacco Use Types Packs/Day Years [...] documented as of this encounter Care Teams Packing Tractor Machine Operator Relationship Specialty Start Date End Date Mary Flores MD [address] [place] [phone] PCP - General Family Medicine 01/05/22 documented as of this encounter
--- OUTSIDE RECORDS SUMMARY | 2024-07-05 11:38 | XMS_ITS | Encounter Summary ---
Author Organization [employer] Address [address] [place] [address] Care Team Providers Care Cut And Cover Line Worker Name Role Phone Mary Flores MD Primary Care Provider [phone] Reason for Visit * Reason Comments Med Refill Encounter Details Date Type Department Care Team ([facility] st Contact Info) Description 04/19/2024 Refill [facility]ALK[facility] 230 [place], [place] [phone] Olga Dillard ANP [address] [place] [address] Nasal congestion Social History Tobacco Use Types [...] documented as of this encounter Care Teams Cut And Cover Line Worker Relationship Specialty Start Date End Date Mary Flores MD [address] [place] [address] PCP - General Family Medicine 01/05/22 documented as of this encounter
--- OUTSIDE RECORDS SUMMARY | 2024-07-05 11:38 | XMS_ITS | Encounter Summary ---
Author Organization [employer] Address [address] 7[address] [place] [address] Care Team Providers Care Negative Cleaner Name Role Phone Mary Flores MD Primary Care Provider [phone] Reason for Visit * Reason Onset Date Comments Appointment Request 06/13/2023 Encounter Details Date Type Department Care Team ([facility] st Contact Info) Description 06/13/2023 Telephone [facility] [address] [place] [address] Mary Flores MD [address] [place] [address] Appointment Request Social History Tobacco Use Types [...] told her that when she returned from [place] to call for an appointment in person. documented in this encounter Plan of Treatment Not on file documented as of this encounter Visit Diagnoses Not on filedocumented in this encounter Care Teams Negative Cleaner Relationship Specialty Start Date End Date Mary Flores MD [address] [place] [address] PCP - General Family Medicine 01/05/22 documented as of this encounter
--- OUTSIDE RECORDS SUMMARY | 2024-07-05 11:38 | XMS_ITS ---
Author Name Sonya Gallagher NP Address [address] [place] [address] Phone [phone] [facility] Care Team Providers Care Clinical Nurse Educator Name Role Phone Sonya Gallagher Unavailable [phone] Unavailable Unavailable Unavailable NATALY CRANDALL Unavailable [phone] Bret Bonner Unavailable [phone] Deanna Casillas Unavailable [phone] CALEB RAMON Unavailable [phone] EDWARD REBOLLEDO Unavailable [phone] Reason for Referral Not Available Allergies, adverse [...] 290 MCG Cap TAKE 1 CAPSULE BY [facility] EVERY MORNING 2021-10-25 No Data Available Albuterol Sulfate HFA 108 (9 0 Base) MCG/ACT Aerosol Solution INHALE 2 PUFFS BY MOUTH EVERY 4 TO 6 HOURS NEEDED 2021-05-30 No Data Available Amitriptyline 100 mg Tab TAKE 1 TABLET B Y MOUTH AT BEDTIME 2021-10-09 No Data Available Creon 03477-21589 UNIT Cap delayed rel TAKE 1 CAPSULE BY MOUTH FOUR TIMES DAILY, WITH MEALS OR SNACKS AND AT BEDTIME 2021-11-08 No Data Available Cyclobenzaprine 10 mg Tab TAKE 1 TABLET BY MOUTH AT BEDTIME 2021-10-09 No Data Available Daliresp 500 MCG Tab TAKE 1 TABLET BY MO GAH EVERY DAY 2021-05-30 No Data Available dilTIAZem [...] Available Vitamin D (Ergocalciferol) 1 .25 mg (69866 UT) Cap TAKE 1 CAPSULE BY MOUTH [...] (do not use for phone, instead use 19554-71) [facility] ([place]) 04/08/2022 Hypertensive heart disease w ith heart failureHeart failure, unspecifiedUnspecified asthma, uncomplicatedChronic obstructive pulmonary disease, unspecifiedRheumatoid arthritis, unspecifiedHyperlipidemia, unspecifiedDepression, unspecified New patient,40-59min; chronic exacerbation, 2 stable chronic or 1 acute illness add add modifier 95 for video (do not use for phone, instead use 13759-44) [facility] ([place]) 04/08/2022 New patient,40-59min; chronic exacerbation, 2 stable chronic or 1 acute illness add add modifier 95 for video (do not use for phone, instead use 67763-53) [facility] [place] 04/08/2022 New patient,40-59min; chronic exacerbation, 2 stable chronic or 1 acute illness add add modifier 95 for video (do not use for phone, instead use 54691-56) [facility] [place] 04[place]08/2022 New patient,40-59min; chronic exacerbation, 2 stable chronic or 1 acute illness add add modifier 95 for video (do not use for phone, instead use 06441-23) [facility] [place] 04/08/2022 New patient,40-59min; chronic exacerbation, 2 stable chronic or 1 acute illness add add modifier 95 for video (do not use for phone, instead use 79461-33) [facility] ([place]) 04/08/2022 New patient,40-59min; chronic exacerbation, 2 stable chronic or 1 acute illness add add modifier 95 for video (do not use for phone, instead use 04872-09) [facility] [place] 04/08/2022 New patient,40-59min; chronic exacerbation, 2 stable chronic or 1 acute illness add add modifier 95 for video (do not use for phone, instead use 94250-48) [facility] ([place]) 04/08/2022 New patient,40-59min; chronic exacerbation, 2 stable chronic or 1 acute illness add add modifier 95 for video (do not use for phone, instead use 19864-68) [facility] [place] 04/08/2022 Estab. patient 20-29min; 1 stable chronic or 2 minor; add add modifier 95 for video, modifier 93 for phone [facility] [place] 05/09/2022 Hypertensive heart disease w ith heart [...] (do not use for phone, instead use 05164-56) 14408 2022-04-09 No Data Available No Data Availa [...] 95 for video, modifier 93 for phone 18837 2022-05-09 No Data Available No Data Availa [...] using a udio and video over the [employer] tablet. Time spent in visit: 20 minutesToday, patient has chief complaint of: monitoring of chronic conditions 2022-05-09 Most recent hospital stay(s) or ER visit(s) and precipitating factors: denies 2022-05-09 Open HEDIS Measure falguni carbajal: done
--- OUTSIDE RECORDS SUMMARY | 2024-07-05 11:38 | XMS_ITS | Clinical Summary ---
Author Organization [employer] Address [address] [facility] 7t [place] [address] Care Team Providers Care Enrober Name Role Phone Mary Flores MD Primary Care Provider [phone] Allergies Active Allergy Reactions Criticality Noted Date [...] Active GaviLyte-G 236 g solution Active Creon 79521-15330 units capsule TAKE 1 CAPSULE BY MOUTH [...] BEDTIME Active Blood Glucose Monitoring Suppl (FreeStyle [place] Lite) w/Device kit Active cetirizine (ZyrTEC) 10 [...] copies of [place] exams and [place] Hiatal hernia 08/06/2021 Obstructive sleep apnea syndrome [...] Encounters Date Type Department Care Team Description 07/05/2024 Orders Only GENERIC EXTERNAL DATA DEPARTMENT Provider, Generic External Data 06/14/2024 Refill [facility] [address] [place] [address] Mary Flores MD 05/27/2024 Telephone [facility] [address] [place] [address] Mary Flores MD Durable Medical Equipment 04/30/2024 10:30 AM EST Office Visit [facility] [address] [place] [address] Jill Anderson, OD Diabetes type 2, no ocular involvement (CMS/HCC) (Primary Dx); Chorioretinal scar of both eyes; Peripheral drusen of left eye; Pseudophakia of both eyes; Presbyopia 04/30/2024 Travel 04/21/2024 Refill [facility] [address] [place] [address] Mary Flores MD 04/19/2024 Refill [facility] [address] [place] [address] Olga Dillard ANP Nasal congestion 04/14/2024 Telephone [facility] [address] [place] [address] Mary Flores MD telephone call from Last [...] Screening 05/26/2025 05/26/2024 Eye Exam 04/30/2026 04/30/2024, 04/12, 04/30/2024, Additional history exists DTaP/Tdap/Td Vaccines (3 [...] Procedure Name Priority Date/Time Associated Diagnosis Comments CBC WITH AUTO DIFFERENTIAL Routine 07/05/2024 10:48 AM EST POCT GLYCATED HEMOGLOBIN, TOTAL Routine 11/10/2023 2:27 PM EDT 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, without long-term current use of insulin (CMS/HCC) LIPID PANEL, STANDARD Routine 07/23/2023 3:35 PM EDT 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, without long-term current use of insulin (CMS/HCC) BITEWINGS - 4 RADIOGRAPHIC IMAGES Routine 08/29/2022 [...] Recently Relevant to Health Maintenance Results * (ABNORMAL) CBC auto differential (07/05/2024 10:48 AM EST) White Blood Count 5.2 4.8 - 10.8 X10*3/uL [facility] Red Blood Count 4.71 4.20 - 5.50 X10*6/uL [facility] Hemoglobin 14.1 12.0 - 16.0 g/dl [facility] Hematocrit 42.8 37.0 - 47.0 % [facility] Mean Corpuscular Volume 90.9 80.0 - 98.0 fL [facility] Mean Corpuscular Hemoglobin 29.9 27.0 - 33.0 pg [facility] Mean Corpuscular HGB Conc 32.9 31.0 - 35.0 g/dl [facility] Red Cell Distribution Width 12.7 11.0 - 16.0 % [facility] Platelet Count 287 160 - 400 X10*3/uL [facility] Mean Platelet Volume 11.3 9.4 - 12.3 fL [facility] Neutrophils Percent Auto 58.2 45 - 73 % [facility] Imm Gran Pct Auto 0.2 0.0 - 0.4 % [facility] Lymphocytes Percent Auto 27.6 20 - 40 % [facility] Monocytes Percent Auto 8.9 2 - 11 % [facility] Eosinophils Percent Auto 4.1(H) 0 - 4 % [facility] Basophils Percent Auto 1.0 0 - 2 % [facility] NRBC Pct Auto 0.0 0.0 - 0.2 /100WBC [facility] Neutrophils Absolute Auto 3.0 2.0 - 8.3 x10*3/uL [facility] Imm Gran Abs Auto 0.01 0.00 - 0.03 X10*3/uL [facility] Lymphocytes Absolute Auto 1.4 1.2 - 4.9 X10*3/uL [facility] Monocytes Absolute Auto 0.5 0.1 - 1.2 X10*3/uL [facility] Eosinophils Absolute Auto 0.2 0.0 - 0.4 X10*3/uL [facility] Basophils Absolute Auto 0.1 0.0 - 0.2 X10*3/uL [facility] NRBC Abs Auto 0.000 0.0 - 0.012 X10*3/uL [facility] 07/05/2024 10:4 8 AM EST 07/05/2024 10:48 AM EST us Generic External Data Provider LAB BLOOD ORDERAB LES Final Result [facility] [address] [place] [phone] * POCT HGB A1C (11/10/2023 2:27 PM EDT) Hemoglobin A1C 5.2 4.0 - 6.0 % QC Media Lot # [id number] Lot# Expiration Date ,026 Blood 11/10/2023 2:27 PM EDT Mary Flores MD POINT OF CARE TEST ENTER/EDIT ORDERABLES Final Result * Lipid Panel, Standard (07/23/2023 3:35 PM EDT) Triglycerides 142 <150 mg/dL [facility] Comment:Desirable Triglyceri de: less than 150 mg/dLBorderline High Triglyceride 150-199 mg/dLHigh Triglyceride: 200-499 mg/dLVery High Triglyceride: greater than or equal to 5OO mg/dL Cholesterol 152 <200 mg/dL [facility] Comment:Desirable Cholestero l: less than 200 mg/dLBorderline High Cholesterol: 200-239 mg/dLHigh Cholesterol: greater than 239 mg/dL LDL Cholesterol Calculated 77 <100 mg/dL [facility] Comment:Desirable LDL: less than 100 mg/dLNear Optimal/Above Optimal LDL: 110- 129 mg/dLBorderline High LDL: 130-159 mg/dLHigh LDL: 160-189 mg/dLVery High LDL: greater than or equal to 190 mg/dL HDL Cholesterol 47 >40 mg/dL [facility] Comment:Desirable HDL: great er than 40 mg/dL Note: This HDL assay may give artificially low results in patients with liver disease. Blood Venous blood specimen / Unknown 07/23/2023 3:35 PM EDT 07/23/2023 4:17 PM EDT Mary Flores MD LAB BLOOD ORDERABLES Final Res ult [facility] [address] [place] [address] [phone] * HEPATITIS C AB W/REFL TO [...] a test for HCV RNA (test code 75616) is suggested. ?? For additional information please refer to http://education.weendy/faq/YSX55s0 (This link is being provided for informational/ educational purposes only.) ?? 09/19/2021 9:58 AM EDT Frances Fowler CRM ANALYST HISTORICAL/NON ORDERABLE LABS Final Result Performing Organization Address [facility] Co de Phone Number [facility] [address] * ALBUMIN, RANDOM URINE W/CREATININE (09/13/2021 2:19 [...] Creatinine, Urine 58 20 - 275 mg/dL [facility] 09/13/2021 2:19 PM EDT us Frances Fowler CRM ANALYST LAB URINE ORDERABLES Final Res ult [facility] [address] * Colonoscopy (01/19/2021 8:45 AM EDT) Historical Provider HEALTH MAINTENANCE Final Result from Last 3 Months or Most Recently Relevant to Health Maintenance Insurance [facility] STAND ADULT Care Teams Enrober Relationship Specialty Start Date End Date Mary Flores MD [address] [place] [id number] PCP - General Family Medicine 01/05/22
--- OUTSIDE RECORDS SUMMARY | 2024-07-05 11:38 | XMS_ITS | Encounter Summary ---
Author Organization [employer] Address [address] [place] [address] Care Team Providers Care Stations Superintendent Name Role Phone Mary Flores MD Primary Care Provider [phone] Reason for Visit * Reason Comments Med Change Request Encounter Details Date Type Department Care Team ([facility] st Contact Info) Description 12/05/2023 Refill [facility] [address] [place], [place] [phone] Tyrel Trivedi MD [address] [place] [address] Social History Tobacco Use Types Packs/Day Years [...] documented as of this encounter Care Teams Stations Superintendent Relationship Specialty Start Date End Date Mary Flores MD [address] [place] [address] PCP - General Family Medicine 01/05/22 documented as of this encounter
[2024-07-05 12:01] LABS: Anion Gap 10 (12-20); Blood Urea Nitrogen 13 mg/dL (9-16); Calcium 9.6 mg/dL (8.4-10.2); Carbon Dioxide 27 mmol/L (22-29); Chloride 107 mmol/L (96-108); Estimated Glomerular Filt Rate > 60; Glucose Random 91 mg/dL (60-115); Potassium 4.1 mmol/L (3.3-5.1); Sodium 140 mmol/L (135-145)
[2024-07-05 12:18] LABS: Erythrocyte Sedimentation Rate 8 MM/HR (0-20)
[2024-07-06 16:59] LABS: IgA 392 mg/dL (70-320); IgG 1176 mg/dL (600-1540); IgM 80 mg/dL (50-300)
[2024-07-06 18:14] LABS: Immunoglobulin E 15 kU/L (<OR=114)
== END 2024-07-05 09:36 | disposition home or self-care (01) ==
LOC: HO.LAB 09:35
PROVIDERS: PCP General Practice; Visit Provider Hospitalist
DX: J45.40 Moderate persistent asthma, uncomplicated (principal); J45.50 Severe persistent asthma, uncomplicated; G47.33 Obstructive sleep apnea (adult) (pediatric); Z99.89 Dependence on other enabling machines and devices; K21.9 Gastro-esophageal reflux disease without esophagitis; Z79.899 Other long term (current) drug therapy
CPT/HCPCS: 36415; 80048; 82784; 82785; 85025; 85652; 99212

== ENCOUNTER 2024-07-09 07:25 | Outpatient (REF) | payer OTHER, SELFPAY ==
--- NOTE | ~2024-07-09 | MR_ITS ---
EXAMINATION: MR CERVICAL SPINE WITHOUT CONTRAST CLINICAL INFORMATION: Tremors. COMPARISON: None available. TECHNIQUE: MRI of the cervical spine was obtained using routine sequences without contrast. FINDINGS: Craniocervical junction is intact. No bone marrow STIR signal abnormality. Multilevel disc desiccation more conspicuous at C4-5 and C5-6 level. There is grade 1 anterolisthesis C7-T1. There is buckling of the dorsal aspect of the thecal sac at C6-7 and to a lesser extent C5-6 and C4-5 level related to hypertrophy of the ligamentum flavum. The cervical spinal cord signal is normal. C2-3: No disc herniation. No neuroforamina stenosis. C3-4: Central disc osteophyte complex formation. Facet joint hypertrophy. No compression upon neural elements. C4-5: Central disc osteophyte complex formation. No cord compression. Bilateral facet joint hypertrophy resulting in neuroforamina narrowing. C5-6: Central disc osteophyte complex formation resulting in ventral indentation to the thecal sac. Hypertrophy of the ligamentum flavum and the facet joints. Bilateral neuroforamina narrowing. C6-7: Central disc osteophyte complex formation. No cord compression. Left facet joint hypertrophy. Hypertrophy of ligamentum flavum. Left neuroforamina narrowing. Right perineural cyst. C7-T1: No disc herniation. No neuroforamina stenosis. Flow-void signal within the main vessels is normal. Codominant vertebral arteries. Prominent palatine tonsils bilaterally. MR/MR cervical spine wo con IMPRESSION: Multilevel cervical spondylosis more conspicuous at C5-6 without cord compression, cord edema and or myelopathy. Electronically signed by: Gume Cox MD 07/09/2024 08:42 AM EST
--- OUTSIDE RECORDS SUMMARY | 2024-07-09 07:27 | XMS_ITS | Encounter Summary ---
Author Organization [email or web address] [facility] Address [address] [place] [address] 7t [place] [address] Care Team Providers Care Vp Legal Affairs Name Role Phone Mary Flores MD Primary Care Provider [phone] Encounter Details Date Type Department Care Team ([facility] Contact Info) Description 08/01/2022 Orders Only [facility] [address] [place] [address] Mary Flores MD [address] [place] [address] Blurry vision (Primary Dx) Social History Tobacco Use Types Packs/Day Years Used Date Smoking Tobacco: Never Assessed Comments Unknown Sex and Gender Information Value Date Recorded Sex Assigned at Female 03/11/2022 10:17 AM EDT Legal Sex Female 10:17 AM EDT Gender Identity Female 03/11/2022 10:17 AM EDT Sexual Orientation Straight 03/11/2022 10 :17 AM EDT documented as of this encounter Plan of Treatment Upcoming Encounters Date Type Department Care Team (Late st Contact Info) Description 07/12/2024 3:30 PM EST Office Visit [facility] [address] [place] [address] Mary Flores MD [address] [place] [address] [phone] documented as of this encounter Visit Diagnoses Diagnosis Blurry vision- Primary Other specified visual disturbances documented in this encounter Care Teams Vp Legal Affairs Relationship Specialty Start Date End Date Mary Flores MD [address] [place] [address] PCP - General Family Medicine 01/05/22 documented as of this encounter
--- OUTSIDE RECORDS SUMMARY | 2024-07-09 07:27 | XMS_ITS | Encounter Summary ---
Author Organization [facility] Address [address] [facility] [address]t [place] [address] Care Team Providers Care Lime Boiler Name Role Phone Mary Flores MD Primary Care Provider [phone] Reason for Visit * Reason Comments Med Refill Encounter Details Date Type Department Care Team (Late Contact Info) Description 08/15/[address] [facility] [address] [place] [address] [phone] Keri Ochoa MD [address] [place] [address] [phone] Social History Tobacco Use Types Packs/Day Years [...] Description 07/12/2024 3:30 PM EST Office Visit [facility] [address] [place] [address] Mary Flores MD [address] [place] [address] [phone] documented as of this encounter Visit Diagnoses Not on filedocumented in this encounter Care Teams Lime Boiler Relationship Specialty Start Date End Date Mary Flores MD [address] [place] [phone] PCP - General Family Medicine 01/05/22 documented as of this encounter
--- OUTSIDE RECORDS SUMMARY | 2024-07-09 07:27 | XMS_ITS | Encounter Summary ---
Author Organization [employer] [facility] Address [address] [place] [address] 7 [place] [address] Care Team Providers Care Jewel Sorter Name Role Phone Mary Flores MD Primary Care Provider [phone] Reason for Visit * Reason Onset Date Comments Referral 08/01/2022 Encounter Details Date Type Department Care Team (Late st Contact Info) Description 08/01/2022 Telephone [facility] MEDICINE [address] [place] [phone] Mary Flores MD [address] [place] [address] [phone] Referral Social History Tobacco Use Types Packs/Day [...] [facility] Please contact pt at [phone] korean Speaker documented in this encounter Plan of Treatment Upcoming Encounters Date Type Department Care Team (Late st Contact Info) Description 07/12/2024 3:30 PM EST Office Visit [facility] MEDICINE [address] [place] [phone] Mary Flores MD [address] [place], [place] [phone] documented as of this encounter Visit Diagnoses Not on filedocumented in this encounter Care Teams Jewel Sorter Relationship Specialty Start Date End Date Mary Flores MD [address] [place], [place] [phone] PCP - General Family Medicine 01/05/22 documented as of this encounter
--- OUTSIDE RECORDS SUMMARY | 2024-07-09 07:27 | XMS_ITS | Encounter Summary ---
Author Organization [employer] Address [address] [facility] [place] [address] Care Team Providers Care Field Artillery Senior Sergeant Name Role Phone Mary Flores MD Primary Care Provider [phone] Reason for Visit * Reason Onset Date Comments Durable Medical Equipment 07/25/2023 Encounter Details Date Type Department Care Team ([facility] st Contact Info) Description 07/25/2023 Telephone [facility] MEDICINE [address] [place] [address] Mary Flores MD [address] [place] [address] Durable Medical Equipment Social History Tobacco Use [...] - 07/25/2023 11:42 AM EDT [facility] requesting DME supplies to be sent to [facility] - bed pads - L pull ups - oximeter documented in this encounter Plan of Treatment Upcoming Encounters Date Type Department Care Team (Late st Contact Info) Description 07/12/2024 3:30 PM EST Office Visit [facility] MEDICINE [address] [place] [address] Mary Flores MD [address] [place] [address] documented as of this encounter Visit Diagnoses Not on filedocumented in this encounter Care Teams Field Artillery Senior Sergeant Relationship Specialty Start Date End Date Mary Flores MD [address] [place] [address] PCP - General Family Medicine 01/05/22 documented as of this encounter
--- OUTSIDE RECORDS SUMMARY | 2024-07-09 07:28 | XMS_ITS ---
Author Name Sonya Gallagher NP Address [address] [place] [address] Phone [phone] [facility] Care Team Providers Care Photographic Equipment Technician Name Role Phone Sonya Gallagher Unavailable [phone] Unavailable Unavailable Unavailable NATALY CRANDALL Unavailable [phone] Bret Bonner Unavailable [phone] Deanna Casillas Unavailable [phone] CALEB RAMON Unavailable [phone] EDWARD REBOLLEDO Unavailable [phone] Reason for Referral Not Available Allergies, adverse [...] 290 MCG Cap TAKE 1 CAPSULE BY [facility] EVERY MORNING 2021-10-25 No Data Available Albuterol Sulfate HFA 108 (9 0 Base) MCG/ACT Aerosol Solution INHALE 2 PUFFS BY MOUTH EVERY 4 TO 6 HOURS NEEDED 2021-05-30 No Data Available Amitriptyline 100 mg Tab TAKE 1 TABLET B Y MOUTH AT BEDTIME 2021-10-09 No Data Available Creon [id number] UNIT Cap delayed rel TAKE 1 CAPSULE BY MOUTH FOUR TIMES DAILY, WITH MEALS OR SNACKS AND AT BEDTIME 2021-11-08 No Data Available Cyclobenzaprine 10 mg Tab TAKE 1 TABLET BY MOUTH AT BEDTIME 2021-10-09 No Data Available Daliresp 500 MCG Tab TAKE 1 TABLET BY [facility] EVERY DAY 2021-05-30 No Data Available dilTIAZem [...] Available Vitamin D (Ergocalciferol) 1 .25 mg (72081 UT) Cap TAKE 1 CAPSULE BY MOUTH [...] (do not use for phone, instead use 99351-09) [facility] ([place]) 04/08/2022 Hypertensive heart disease w ith heart failureHeart failure, unspecifiedUnspecified asthma, uncomplicatedChronic obstructive pulmonary disease, unspecifiedRheumatoid arthritis, unspecifiedHyperlipidemia, unspecifiedDepression, unspecified New patient,40-59min; chronic exacerbation, 2 stable chronic or 1 acute illness add add modifier 95 for video (do not use for phone, instead use 40055-29) [facility], ([place]) 04/08/2022 New patient,40-59min; chronic exacerbation, 2 stable chronic or 1 acute illness add add modifier 95 for video (do not use for phone, instead use 46421-50) [facility], ([place] 04/08/2022 New patient,40-59min; chronic exacerbation, 2 stable chronic or 1 acute illness add add modifier 95 for video (do not use for phone, instead use 59796-94) [facility], ([place] 04/08/2022 New patient,40-59min; chronic exacerbation, 2 stable chronic or 1 acute illness add add modifier 95 for video (do not use for phone, instead use 39342-31) [facility], ([place] 04/08/2022 New patient,40-59min; chronic exacerbation, 2 stable chronic or 1 acute illness add add modifier 95 for video (do not use for phone, instead use 70033-86) [facility], ([place] 04/08/2022 New patient,40-59min; chronic exacerbation, 2 stable chronic or 1 acute illness add add modifier 95 for video (do not use for phone, instead use 18957-93) [facility], ([place] 04/08/2022 New patient,40-59min; chronic exacerbation, 2 stable chronic or 1 acute illness add add modifier 95 for video (do not use for phone, instead use 99517-60) [facility], ([place] 04/08/2022 New patient,40-59min; chronic exacerbation, 2 stable chronic or 1 acute illness add add modifier 95 for video (do not use for phone, instead use 98537-81) [facility], ([place]) 04/08/2022 Estab. patient 20-29min; 1 stable chronic or 2 minor; add add modifier 95 for video, modifier 93 for phone [facility], ([place]) 05/09/2022 Hypertensive heart disease w ith heart [...] Time Current Smoking Status Never smoker 2024-06-13 7 Sex Female History of Procedures Procedures Service Procedure code Service date Servicing provider Phone# New patient,40-59min; chronic exacerbation, 2 stable chronic or 1 acute illness add add modifier 95 for video (do not use for phone, instead use 93764-27) 89301 2022-04-09 No Data Available No Data Availa [...] 95 for video, modifier 93 for phone 91579 2022-05-09 No Data Available No Data Availa [...] using a udio and video over the [employer] tablet. Time spent in visit: 20 minutesToday, patient has chief complaint of: monitoring of chronic conditions 2022-05-09 Most recent hospital stay(s) or ER visit(s) and precipitating factors: denies 2022-05-09 Open HEDIS Measure falguni carbajal: done
--- OUTSIDE RECORDS SUMMARY | 2024-07-09 07:28 | XMS_ITS | Encounter Summary ---
Author Organization [employer] Address [address] [facility] [facility] [address] [place] [address] Care Team Providers Care Applications Development Analyst Name Role Phone Mary Flores MD Primary Care Provider [phone] Encounter Details Date Type Department Care Team (Late st Contact Info) Description 09/12/2023 Orders Only [facility] MEDICINE [address] [place] [address] ProviderElliott MD Social History Tobacco Use Types [...] Description 07/12/2024 3:30 PM EST Office Visit [facility] MEDICINE [address] [place] [address] Mary Flores MD [address] [place] [address] documented as of this encounter Procedures Procedure Name Priority Date/Time Associated Diagnosis Comments HM COLONOSCOPY Routine 01/19/2021 8:45 AM EDT documented in this encounter Results * Hm Colonoscopy (01/19/2021 8:45 AM EDT) Historical Provider HEALTH MAINTENANCE Final Result documented in this encounter Visit Diagnoses Not on filedocumented in this encounter Care Teams Applications Development Analyst Relationship Specialty Start Date End Date Mary Flores MD [address] [place] [phone] PCP - General Family Medicine 01/05/22 documented as of this encounter
--- OUTSIDE RECORDS SUMMARY | 2024-07-09 07:28 | XMS_ITS | Encounter Summary ---
Author Organization [employer] Address [address] [facility] [address] [place] [address] Care Team Providers Care Cardiac Specialist Name Role Phone Mary Flores MD Primary Care Provider [phone] Reason for Visit * Reason Onset Date Comments Appointment Request 06/13/2023 Encounter Details Date Type Department Care Team ([facility] st Contact Info) Description 06/13/2023 Telephone [facility] MEDICINE [address] [place] [address] Mary Flores MD [address] [place] [address] Appointment Request Social History Tobacco Use Types [...] told her that when she returned from [place] to call for an appointment in person. documented in this encounter Plan of Treatment Upcoming Encounters Date Type Department Care Team (Late st Contact Info) Description 07/12/2024 3:30 PM EST Office Visit [facility] MEDICINE [address] [place] [address] Mary Flores MD [address] [place] [address] documented as of this encounter Visit Diagnoses Not on filedocumented in this encounter Care Teams Cardiac Specialist Relationship Specialty Start Date End Date Mary Flores MD [address] [place] [address] PCP - General Family Medicine 01/05/22 documented as of this encounter
--- OUTSIDE RECORDS SUMMARY | 2024-07-09 07:28 | XMS_ITS | Encounter Summary ---
Author Organization [employer] [facility] Address [address] [facility] [address] [place] [address] Care Team Providers Care Instructor Substitute Cosmetology Name Role Phone Mary Flores MD Primary Care Provider [phone] Encounter Details Date Type Department Care Team (Late st Contact Info) Description 07/05/2024 Orders Only GENERIC EXTERNAL DATA DEPARTMENT Provider, Generic External Data Social History Tobacco Use Types Packs/Day Years [...] the past 12 months, has t he [employer], gas, oil or water [employer] threatened to shut off services in your [...] Description 07/12/2024 3:30 PM EST Office Visit [facility] MEDICINE [address] [place] [address] Mary Flores MD [address] [place], [place] [phone] documented as of this encounter Procedures Procedure Name Priority Date/Time Associated Diagnosis Comments CBC WITH AUTO DIFFERENTIAL Routine 07/05/2024 10:48 AM EST SED RATE BY MODIFIED WESTERGREN Routine 07/05/2024 10:48 AM EST IMMUNOGLOBULINS, QUANTITATIVE, IGA, IGG, IGM Routine 07/05/2024 10:48 AM EST IMMUNOGLOBULIN E Routine 07/05/2024 10:4 8 AM EST BASIC METABOLIC PANEL Routine 07/05/2024 10:48 AM EST documented in this encounter Results * Immunoglobulin E (07/05/2024 10:48 AM EST) Immunoglobulin E 15 <DZ=125 kU/L [facility] Comment:THIS TEST WAS PERFOR MED AT:[id number] [place] [phone] SWENSON MD 07/05/2024 10:4 8 AM EST 07/05/2024 10:48 AM EST us Generic External Data Provider LAB BLOOD ORDERAB LES Final Result Performing Organization Address [facility] Co de Phone Number [facility] [address] [place] [phone] * (ABNORMAL) Immunoglobulins, Quantitative, IgA, IgG, IgM (07/05/2024 10:48 AM EST) Pathologist [facility] IMMUNOGLOBULIN G 1176 600 - 1540 mg/dL [facility] IMMUNOGLOBULIN A 392(A) 70 - 320 mg/dL [facility] Immunoglobulin M 80 50 - 300 mg/dL [facility] Comment:THIS TEST WAS PERFOR MED AT:[id number] [place] [phone] SWENSON MD 07/05/2024 10:4 8 AM EST 07/05/2024 10:48 AM EST us Generic External Data Provider LAB BLOOD ORDERAB LES Final Result Performing Organization Address [facility] Phone Number [facility] [address] [place] [phone] * Sed Rate by Modified [place] (07/05/2024 10:48 AM EST) [facility] Erythrocyte Sedimentation Rate 8 0 - 20 MM/HR [facility] Comment:Patients with polycy themia and many hemoglobin abnormalitiesmay have depressed sed rates whereas patients with anemiamay have elevated sed rates. 07/05/2024 10:4 8 AM EST 07/05/2024 10:48 AM EST us Generic External Data Provider LAB BLOOD ORDERAB LES Final Result Performing Organization Address [facility] Co de Phone Number [facility] [address] [place] [phone] * (ABNORMAL) Basic Metabolic Panel (07/05/2024 10:48 AM EST) [facility] Sodium 140 135 - 145 mmol/L [facility] Potassium 4.1 3.3 - 5.1 mmol/L [facility] Chloride 107 96 - 108 mmol/L [facility] Carbon Dioxide 27 22 - 29 mmol/L [facility] Anion Gap 10(L) 12 - 20 [facility] Urea Nitrogen (BUN) 13 9 - 16 mg/dL [facility] Creatinine, Serum 0.64 0.5 - 1.4 mg/dL [facility] Estimated Glomerular Filt Rate >60 [facility] Comment:Chronic Kidney Disea se: Estimated GFR < 60 mL/min/1.76j0Injwei Kidney Disease: Estimated GFR < 15 mL/min/1.73m2 Glucose 91 60 - 115 mg/dL [facility] Calcium 9.6 8.4 - 10.2 mg/dL [facility] 07/05/2024 10:4 8 AM EST 07/05/2024 10:48 AM EST us Generic External Data Provider LAB BLOOD ORDERAB LES Final Result [facility] [address] [place] [phone] * (ABNORMAL) CBC auto differential (07/05/2024 10:48 AM EST) White Blood Count 5.2 4.8 - 10.8 X10*3/uL [facility] Red Blood Count 4.71 4.20 - 5.50 X10*6/uL [facility] Hemoglobin 14.1 12.0 - 16.0 g/dl [facility] Hematocrit 42.8 37.0 - 47.0 % [facility] Mean Corpuscular Volume 90.9 80.0 - 98.0 fL [facility] Mean Corpuscular Hemoglobin 29.9 27.0 - 33.0 pg [facility] Mean Corpuscular HGB Conc 32.9 31.0 - 35.0 g/dl [facility] Red Cell Distribution Width 12.7 11.0 - 16.0 % [facility] Platelet Count 287 160 - 400 X10*3/uL [facility] Mean Platelet Volume 11.3 9.4 - 12.3 fL [facility] Neutrophils Percent Auto 58.2 45 - 73 % [facility] Imm Gran Pct Auto 0.2 0.0 - 0.4 % [facility] Lymphocytes Percent Auto 27.6 20 - 40 % [facility] Monocytes Percent Auto 8.9 2 - 11 % [facility] Eosinophils Percent Auto 4.1(H) 0 - 4 % [facility] Basophils Percent Auto 1.0 0 - 2 % [facility] NRBC Pct Auto 0.0 0.0 - 0.2 /100WBC [facility] Neutrophils Absolute Auto 3.0 2.0 - 8.3 x10*3/uL [facility] Imm Gran Abs Auto 0.01 0.00 - 0.03 X10*3/uL [facility] Lymphocytes Absolute Auto 1.4 1.2 - 4.9 X10*3/uL [facility] Monocytes Absolute Auto 0.5 0.1 - 1.2 X10*3/uL [facility] Eosinophils Absolute Auto 0.2 0.0 - 0.4 X10*3/uL [facility] Basophils Absolute Auto 0.1 0.0 - 0.2 X10*3/uL [facility] NRBC Abs Auto 0.000 0.0 - 0.012 X10*3/uL [facility] 07/05/2024 10:4 8 AM EST 07/05/2024 10:48 AM EST us Generic External Data Provider LAB BLOOD ORDERAB LES Final Result [facility] [address] [place] [phone] documented in this encounter Visit Diagnoses Not on filedocumented in this encounter Additional Health Concerns Assessment Noted Time PHQ-9 Depression Total Score: 7 11/10/19 24 2:30 PM EDT documented as of this encounter Care Teams Instructor Substitute Cosmetology Relationship Specialty Start Date End Date Mary Flores MD [address] [place] [phone] PCP - General Family Medicine 01/05/22 documented as of this encounter
--- OUTSIDE RECORDS SUMMARY | 2024-07-09 07:28 | XMS_ITS | Encounter Summary ---
Author Organization [employer] Address [address] [facility] [address] [place] [address] Care Team Providers Care Editorial Director Name Role Phone Mary Flores MD Primary Care Provider [phone] Encounter Details Date Type Department Care Team (Late st Contact Info) Description 12/05/2023 Orders Only [facility] MEDICINE [address] [place] [address] Tyrel Trivedi MD [address] [place] [address] Social History Tobacco Use Types Packs/Day Years [...] 3:30 PM EST Office Visit [facility] MEDICINE [address] [place] [address] Mary Flores MD [address] [place] [address] documented as of this encounter Visit Diagnoses Not on filedocumented in this encounter Additional Health Concerns Assessment Noted Time PHQ-9 Depression Total Score: 7 11/10/19 24 2:30 PM EDT documented as of this encounter Care Teams Editorial Director Relationship Specialty Start Date End Date Mary Flores MD [address] [place], [place] [phone] PCP - General Family Medicine 01/05/22 documented as of this encounter
--- OUTSIDE RECORDS SUMMARY | 2024-07-09 07:28 | XMS_ITS | Data Portability ---
Author Organization [facility] [place] [facility] - [facility] Address [address] [place] [phone] Care Team Providers Care Aircraft Servicer Name Role Phone HIM CCA Referring Provider [phone] Assessment Encounter Date Assessment Date Assessment LastModified by Organization Details LastModified Time 08/21/2023 08/21/2023 I provided real -time medical direction via phone for this encounter, and was available for additional phone based assistance as needed. I have reviewed and agree with the Assessment and Plan as documented by the Scheduler Maintenance. We discussed the diagnostic uncertainty of home visits and the risk associated with this. In this case the patient and I felt this to be an acceptable and reasonable amount of risk given the benefit of avoiding an ED visit. Via nurse infection control, the patient given the opportunity to ask questions. Advised to follow-up with PCP tomorrow if develops CP/severe SOB/turning blue/uncontrolle d n/v/d or black/bloody emesis or stool/ AMS/ syncope/ hi fever unresponsive to APAP to call 911- verbalized understanding of instruction [email or web address] Not available 08/21/2023 11:52:46 Plan of Treatment Reminders Order Date Submit Date Provider Last Modified By Organization Details Last Modified Time Details Appointments None recorded. Lab BMP, serum or plasma 2023 024 [email or web address] 0 [facility], [address] [place] [address], [id number], 4 11:57:22 rapid SARS CoV 2 Ag, QL IA, respiratory specimen 2023 024 [email or web address] 0 [facility], [address] [place] [address], [id number], 4 11:57:26 rapid flu (A+B) 2023 024 [email or web address] 0 [facility], [address] [place] [address], [id number], 11:57:27 Referral None recorded. Procedures None recorded. Surgeries None recorded. Imaging None recorded. Medication Orders ondansetron 4 mg disintegrat ing tablet 2023 [facility], [address] [place] [address], [id number], 4 14:03:53 ipratropium 0.5 mg-albutero l 3 mg (2.5 mg base)/3 mL nebulizatio n soln 2023 [email or web address] 0 Not available 11:57:22 prednisone 20 mg tablet 2023 [email or web address] 0 Not available 11:57:22 prednisone 20 mg tablet 2023 [facility], [address] [place] [address], [id number], 4 12:59:13 Tylenol Arthritis Pain 650 mg tablet,exte nded release 2023 [facility], [address] [place] [address], [id number], 4 14:44:00 benzonatate 200 mg capsule 2023 [facility], [address] [place] [address], [id number], 4 11:39:43 Patient TargetsNo targets recorded. Patient InstructionsNo instructions recorded. Reason for Referral None Reported. Results Created Date Observation Date Name Description Value Unit Range Abnormal Flag Note LastModifiedBy Organization Detail LastModifiedTime 08/21/19 24 08/21/2023 BMP, serum or plasm a BUN 18 Not Available [facility] - [facility] [address] [place] [address], [id number], 08/21/2023 11:23:37 08/21/19 24 08/21/2023 BMP, serum or plasm a Ca Ionize d calckumaru m 1.21 Not Available Main - [address], [phone], 08/21/2023 11:23:37 08/21/19 24 08/21/2023 BMP, serum or plasm a CI- 107 Not Available Main - [facility] [address], [address], 08/21/2023 11:23:37 08/21/19 24 08/21/2023 BMP, serum or plasm a CRE 0.54 Not Available Main - [facility] [address], [address], 08/21/2023 11:23:37 08/21/19 24 08/21/2023 BMP, serum or plasm a GLU 89 Not Available Main - [facility] [address], [address], 08/21/2023 11:23:37 08/21/19 24 08/21/2023 BMP, serum or plasm a K+ 3.9 Not Available Main - [facility] [address], [address], 08/21/2023 11:23:37 08/21/19 24 08/21/2023 BMP, serum or plasm a Na+ 143 Not Available Main - [facility] [address], [address], 08/21/2023 11:23:37 08/21/19 24 08/21/2023 BMP, serum or plasm a tCO2 26.4 Not Available Main - [facility] [address], [address], 08/21/2023 11:23:37 08/21/19 24 08/21/2023 rapid SARS CoV 2 Ag, QL IA, respi rator y speci men rapid SARS CoV 2 Ag, QL IA, respiratory specimen negati ve Not Available [facility] ed [address] [place] [address], [id number], 08/21/2023 11:23:43 08/21/19 24 08/21/2023 rapid flu (A+B) Flu negati ve Not Available [facility] ed [address] [place], [address], 08/21/2023 11:23:44 Result Notes None recorded. 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 Patient [...] Briceño Member ID Guarantor Name 08/21/2023 1 [facility] - DOS ON OR AFTER 2022 - DUAL ELIGIBLE - [employer]PC OPTIONS AND ONE CARE (MEDICARE REPLACEMENT/ADV ANTAGE - HMO) Margarita Ordonez [id number] Margarita Ordonez Notes Date Note Type Note Provider Name and Address Organization Details Recorded Time 08/21/2023 text/html HPI: Call to Margarita Zamora reports continues to have cough, SOB and wheezing. Pt seen at [facility] on 08/12 and dx with Flu A. [...] .................. .................. .................. .................. .................. .................. .... Scheduler Maintenance Note From Kun Cruz: Pt co cough [...] negative. Lungs rhonchi with slight wheezing. Afebrile. [facility] contacted and duo neb, 40mg prednisone given, RX for prednisone, benzonatate,zofran and Tylenol called in. Pt advised to follow up with pcp tomorrow. Pt advised to increase neb treatments from 3 xper day to 4 x? s per day. Pt advised to discontinue use of naprasin( SEGMD: Naprosyn) while ill due to increased BP. Pt education on signs indicating the ER. Scheduler Maintenance Allergies: Morphine .................. .................. .................. .................. .................. .................. .................. ............... Disposition: Fulfilled Genevieve Stover MD [address] [facility],[address] [facility], [place], [phone], CHARANJIT YEUNG 08/21/2023 12:03:44 OBGyn Episode No OBEpisode recorded.
--- OUTSIDE RECORDS SUMMARY | 2024-07-09 07:28 | XMS_ITS | Encounter Summary ---
Author Organization [facility] Address [address] [facility] 7t [place] [address] Care Team Providers Care Quick Mixer Operator Name Role Phone Mary Flores MD Primary Care Provider [phone] Encounter Details Date Type Department Care Team (Late Contact Info) Description 08/27/2022 Orders Only [facility] MEDICINE [address] [place] [address] [phone] Mary Flores MD [address] [place] [address] [phone] Social History Tobacco Use Types Packs/Day Years [...] Encounters Date Type Department Care Team (Late Contact Info) Description 07/12/2024 3:30 PM EST Office Visit [facility] MEDICINE [address] [place] [address] [phone] Mary Flores MD [address] [place] [address] documented as of this encounter Visit Diagnoses Not on filedocumented in this encounter Care Teams Quick Mixer Operator Relationship Specialty Start Date End Date Mary Flores MD [address] [place] [address] PCP - General Family Medicine 01/05/22 documented as of this encounter
--- OUTSIDE RECORDS SUMMARY | 2024-07-09 07:28 | XMS_ITS | Encounter Summary ---
Author Organization [facility] [facility] Address [address] [place] [address] 7t [place] [address] Care Team Providers Care Count Team Member Name Role Phone aMry Flores MD Primary Care Provider [phone] Encounter Details Date Type Department Care Team (Latest Contact Info) Description 01/29/[address] [facility] CONVERSIONS Dental, Provider, DDS Social History [...] 07/12/2024 3:30 PM EST Office Visit [facility] MEDICINE [address] [place] [address] Mary Flores MD [address] [place] [address] documented as of this encounter Visit Diagnoses Not on filedocumented in this encounter Care Teams Count Team Member Relationship Specialty Start Date End Date Mary Flores MD [address] [place] [address] PCP - General Family Medicine 01/05/22 documented as of this encounter
--- OUTSIDE RECORDS SUMMARY | 2024-07-09 07:28 | XMS_ITS | Encounter Summary ---
Author Organization [employer] Address [address] [address] [facility] [address] 7[address] [place] [address] Care Team Providers Care Circulation Assistant Name Role Phone Mary Flores MD Primary Care Provider [phone] Reason for Visit * Reason Comments Med Change Request Encounter Details Date Type Department Care Team ([facility] st Contact Info) Description 12/05/2023 Refill [facility] [address] [place], [place] [phone] Tyrel Trivedi MD [address] [place] [address] Social History Tobacco Use Types Packs/Day Years [...] 3:30 PM EST Office Visit [facility] MEDICINE [address] [place], [place] [phone] Mary Flores MD [address] [place] [address] documented as of this encounter Visit Diagnoses Not on filedocumented in this encounter Additional Health Concerns Assessment Noted Time PHQ-9 Depression Total Score: 7 11/10/19 24 2:30 PM EDT documented as of this encounter Care Teams Circulation Assistant Relationship Specialty Start Date End Date Mary Flores MD [address] [place] [address] [phone] PCP - General Family Medicine 01/05/22 documented as of this encounter
--- OUTSIDE RECORDS SUMMARY | 2024-07-09 07:28 | XMS_ITS | Encounter Summary ---
Author Organization [employer] Address [address] [facility] [address] [address] 7[address] [place] [address] Care Team Providers Care Engineering Programmer Name Role Phone Mary Flores MD Primary Care Provider [phone] Reason for Visit * Reason Onset Date Comments Durable Medical Equipment 07/08/2024 Encounter Details Date Type Department Care Team ([facility] st Contact Info) Description 07/08/2024 Telephone [facility] MEDICINE [address] [place] [address] Mary Flores MD [address] [place] [address] Durable Medical Equipment Social History Tobacco Use [...] encounter Miscellaneous Notes * Telephone Encounter - Emeterio Cuellar - 07/08/2024 11:50 AM EST Tc from pt requesting a shower chair. documented in this encounter Plan of Treatment Upcoming Encounters Date Type Department Care Team (Late st Contact Info) Description 07/12/2024 3:30 PM EST Office Visit [facility] MEDICINE [address] [place] [phone] Mary Flores MD [address] [place] [phone] documented as of this encounter Visit Diagnoses Not on filedocumented in this encounter Additional Health Concerns Assessment Noted Time PHQ-9 Depression Total Score: 7 11/10/19 24 2:30 PM EDT documented as of this encounter Care Teams Engineering Programmer Relationship Specialty Start Date End Date Mary Flores MD [address] [place] [phone] PCP - General Family Medicine 01/05/22 documented as of this encounter
--- OUTSIDE RECORDS SUMMARY | 2024-07-09 07:28 | XMS_ITS | Encounter Summary ---
Author Organization [employer] Address [address] 7t [place] [address] Care Team Providers Care Business Continuity Global Director Name Role Phone Mary Flores MD Primary Care Provider [phone] Reason for Visit * Reason Onset Date Comments Durable Medical Equipment 05/27/2024 Encounter Details Date Type Department Care Team ([facility] st Contact Info) Description 05/27/2024 Telephone [facility] MEDICINE [address] [place] [address] Mary Flores MD [address] [place] [address] Durable Medical Equipment Social History Tobacco Use [...] Telephone Encounter - Emeterio Cuellar - 07/08/2024 11:48 AM EST Tc from pt calling about the status on DME request. * Telephone Encounter - Radha Bonner - [...] Description 07/12/2024 3:30 PM EST Office Visit [facility] MEDICINE [address] [place] [address] Mary Flores MD [address] [place], [place] [phone] documented as of this encounter Visit Diagnoses Not on filedocumented in this encounter Additional Health Concerns Assessment Noted Time PHQ-9 Depression Total Score: 7 11/10/19 24 2:30 PM EDT documented as of this encounter Care Teams Business Continuity Global Director Relationship Specialty Start Date End Date Mary Flores MD [address] [place], [place] [phone] PCP - General Family Medicine 01/05/22 documented as of this encounter
--- OUTSIDE RECORDS SUMMARY | 2024-07-09 07:28 | XMS_ITS | Clinical Summary ---
Author Organization [facility] Address [address] [address] Care Team Providers Care Deputy Sheriff Civil Division Name Role Phone Frances Fowler RN Primary [...] DAILY FOR 2 DAYS. 12/21/2020 Active Creon 56018-77564 units capsule TAKE 1 CAPSULE BY MOUTH [...] by mouth 02/12/2021 Active ergocalciferol 1.25 MG (55217 UT) capsule TAKE 1 CAPSULE BY MOUTH [...] DUAL ELIG PLAN DUAL ELIG Care Teams Deputy Sheriff Civil Division Relationship Specialty Start Date End Date Frances Fowler RN PCP - General Family Medicine 11/09/20
--- OUTSIDE RECORDS SUMMARY | 2024-07-09 07:28 | XMS_ITS | Clinical Summary ---
Author Organization [employer] Address [address] [facility] 7t [place] [address] Care Team Providers Care Manager International Name Role Phone Mary Flores MD Primary Care Provider [phone] Allergies Active Allergy Reactions Criticality Noted Date [...] Active GaviLyte-G 236 g solution Active Creon 42556-23936 units capsule TAKE 1 CAPSULE BY MOUTH [...] BEDTIME Active Blood Glucose Monitoring Suppl (FreeStyle Buffalo Lite) w/Device kit Active cetirizine (ZyrTEC) 10 [...] copies of [place] exams [place] Hiatal hernia 08/06/2021 Obstructive sleep apnea syndrome [...] Encounters Date Type Department Care Team Description 07/08/2024 Telephone [facility] MEDICINE [address] [place] [address] Mary Flores MD Durable Medical Equipment 07/06/[address] [address] Mary Flores MD FYI 07/05/2024 Orders Only GENERIC EXTERNAL DATA DEPARTMENT Provider, Generic External Data 06/14/2024 Refill [facility] MEDICINE [address] [place] [address] Mary Flores MD 05/27/[address] [address] Mary Flores MD Durable Medical Equipment 04/30/2024 10:30 AM EST Office Visit [facility] OPTOMETRY [address] [place] [address] Justin, Jill, OD Diabetes type 2, no ocular involvement (CMS/HCC) (Primary Dx); Chorioretinal scar of both eyes; Peripheral drusen of left eye; Pseudophakia of both eyes; Presbyopia 04/30/2024 Travel 04/21/2024 Refill [facility] MEDICINE [address] [place] [address] Mary Flores MD 04/19/2024 Refill [facility]ALK[facility] [address] [place] [phone] Olga Dillard ANP Nasal congestion 04/14/[address] [address] Mary Flores MD telephone call from Last [...] 02/24/2024 10:08 AM EDT Plan of Treatment Upcoming Encounters Date Type Department Care Team (Late st Contact Info) Description 07/12/2024 3:30 PM EST Office Visit [facility] MEDICINE [address] [place], [place] [phone] Mary Flores MD [address] [place], [place] [phone] Health Maintenance Due Date Last Done Comments [...] 75+ series) 01/25/2024 Diabetes: Hemoglobin A1C 02/10/2024 072 024, 08/06/2023, 07/23/2023, Additional history exists SDOH [...] Procedure Name Priority Date/Time Associated Diagnosis Comments IMMUNOGLOBULIN E Routine 07/05/2024 10:4 8 AM EST IMMUNOGLOBULINS, QUANTITATIVE, IGA, IGG, IGM Routine 07/05/2024 10:48 AM EST SED RATE BY MODIFIED WESTERGREN Routine 07/05/2024 10:48 AM EST BASIC METABOLIC PANEL Routine 07/05/2024 10:48 AM EST CBC WITH AUTO DIFFERENTIAL Routine 07/05/2024 10:48 [...] Blood Count 5.2 4.8 - 10.8 X10*3/uL [facility] Red Blood Count 4.71 4.20 - 5.50 X10*6/uL [facility] Hemoglobin 14.1 12.0 - 16.0 g/dl [facility] Hematocrit 42.8 37.0 - 47.0 % [facility] Mean Corpuscular Volume 90.9 80.0 - 98.0 fL [facility] Mean Corpuscular Hemoglobin 29.9 27.0 - 33.0 pg [facility] Mean Corpuscular HGB Conc 32.9 31.0 - 35.0 g/dl [facility] Red Cell Distribution Width 12.7 11.0 - 16.0 % [facility] Platelet Count 287 160 - 400 X10*3/uL [facility] Mean Platelet Volume 11.3 9.4 - 12.3 fL [facility] Neutrophils Percent Auto 58.2 45 - 73 % [facility] Imm Gran Pct Auto 0.2 0.0 - 0.4 % [facility] Lymphocytes Percent Auto 27.6 20 - 40 % [facility] Monocytes Percent Auto 8.9 2 - 11 % [facility] Eosinophils Percent Auto 4.1(H) 0 - 4 % [facility] Basophils Percent Auto 1.0 0 - 2 % [facility] NRBC Pct Auto 0.0 0.0 - 0.2 /100WBC [facility] Neutrophils Absolute Auto 3.0 2.0 - 8.3 x10*3/uL [facility] Imm Gran Abs Auto 0.01 0.00 - 0.03 X10*3/uL [facility] Lymphocytes Absolute Auto 1.4 1.2 - 4.9 X10*3/uL [facility] Monocytes Absolute Auto 0.5 0.1 - 1.2 X10*3/uL [facility] Eosinophils Absolute Auto 0.2 0.0 - 0.4 X10*3/uL [facility] Basophils Absolute Auto 0.1 0.0 - 0.2 X10*3/uL [facility] NRBC Abs Auto 0.000 0.0 - 0.012 X10*3/uL [facility] 07/05/2024 10:4 8 AM EST 07/05/2024 10:48 AM EST us Generic External Data Provider LAB BLOOD ORDERAB LES Final Result [facility] [address] [place] [address] [phone] * Sed Rate by Modified [place] (07/05/2024 10:48 AM EST) Erythrocyte Sedimentation Rate 8 0 - 20 MM/HR [facility] Comment:Patients with polycy themia and many hemoglobin abnormalitiesmay have depressed sed rates whereas patients with anemiamay have elevated sed rates. 07/05/2024 10:4 8 AM EST 07/05/2024 10:48 AM EST us Generic External Data Provider LAB BLOOD ORDERAB LES Final Result Performing Organization Address [facility]/ZIP Co de Phone Number [facility] [address] [place] [phone] * (ABNORMAL) Immunoglobulins, Quantitative, IgA, IgG, IgM (07/05/2024 10:48 AM EST) IMMUNOGLOBULIN G 1176 600 - 1540 mg/dL [facility] IMMUNOGLOBULIN A 392(A) 70 - 320 mg/dL [facility] Immunoglobulin M 80 50 - 300 mg/dL [facility] Comment:THIS TEST WAS PERFOR MED AT:[employer] [address] [phone] SWENSON MD 07/05/2024 10:4 8 AM EST 07/05/2024 10:48 AM EST us Generic External Data Provider LAB BLOOD ORDERAB LES Final Result Performing Organization Address [facility] Co de Phone Number [facility] [address] [place] [phone] * Immunoglobulin E (07/05/2024 10:48 AM EST) Immunoglobulin E 15 <YX=728 kU/L [facility] Comment:THIS TEST WAS PERFOR MED AT:[employer] [address] [phone] SWENSON MD 07/05/2024 10:4 8 AM EST 07/05/2024 10:48 AM EST us Generic External Data Provider LAB BLOOD ORDERAB LES Final Result Performing Organization Address City/[facility] Co de Phone Number [facility] [address] [place] [phone] * (ABNORMAL) Basic Metabolic Panel (07/05/2024 10:48 AM EST) Sodium 140 135 - 145 mmol/L [facility] Potassium 4.1 3.3 - 5.1 mmol/L [facility] Chloride 107 96 - 108 mmol/L [facility] Carbon Dioxide 27 22 - 29 mmol/L [facility] Anion Gap 10(L) 12 - 20 [facility] Urea Nitrogen (BUN) 13 9 - 16 mg/dL [facility] Creatinine, Serum 0.64 0.5 - 1.4 mg/dL [facility] Estimated Glomerular Filt Rate >60 [facility] Comment:Chronic Kidney Disea se: Estimated GFR < 60 mL/min/1.38w7Insjzw Kidney Disease: Estimated GFR < 15 mL/min/1.73m2 Glucose 91 60 - 115 mg/dL [facility] Calcium 9.6 8.4 - 10.2 mg/dL [facility] 07/05/2024 10:4 8 AM EST 07/05/2024 10:48 AM EST us Generic External Data Provider LAB BLOOD ORDERAB LES Final Result Performing Organization Address City/State/[facility] Co de Phone Number [facility] [address] [place] [phone] * POCT HGB A1C (11/10/2023 2:27 PM EDT) Hemoglobin A1C 5.2 4.0 - 6.0 % QC Media Lot # [id number] Lot# Expiration Date ,464,[id number] Blood 11/10/2023 2:27 PM EDT us Mary Flores MD POINT OF CARE TEST ENTER/EDIT ORDERABLES Final Result * Lipid Panel, Standard (07/23/2023 3:35 PM EDT) Triglycerides 142 <150 mg/dL [facility] Comment:Desirable Triglyceri de: less than 150 mg/dLBorderline High Triglyceride 150-199 mg/dLHigh Triglyceride: 200-499 mg/dLVery High Triglyceride: greater than or equal to 5OO mg/dL Cholesterol 152 <200 mg/dL [facility] Comment:Desirable Cholestero l: less than 200 mg/dLBorderline High Cholesterol: 200-239 mg/dLHigh Cholesterol: greater than 239 mg/dL LDL Cholesterol Calculated 77 <100 mg/dL [facility] Comment:Desirable LDL: less than 100 mg/dLNear Optimal/Above Optimal LDL: 110- 129 mg/dLBorderline High LDL: 130-159 mg/dLHigh LDL: 160-189 mg/dLVery High LDL: greater than or equal to 190 mg/dL HDL Cholesterol 47 >40 mg/dL [facility] Comment:Desirable HDL: great er than 40 mg/dL Note: This HDL assay may give artificially low results in patients with liver disease. Blood Venous blood specimen / Unknown 07/23/2023 3:35 PM EDT 07/23/2023 4:17 PM EDT us Mary Flores MD LAB BLOOD ORDERABLES Final Res ult [facility] [address] [place] [address] [phone] * HEPATITIS C AB W/REFL TO HCV RNA, QN, PCR (09/19/2021 9:58 AM EDT) HEPATITIS C ANTIBODY NON-REACT SHANKAR NON-REACT SHANKAR [facility] INDEX 0.01 <1.00 [facility] Comment: ?? HCV antibody was non-reactive. There is no laboratory ?? evidence of HCV infection. ?? In most cases, no further action is required. However, if recent HCV exposure is suspected, a test for HCV RNA (test code 00292) is suggested. ?? For additional information please refer to http://education.[employer]/faq/MKW49h6 (This link is being provided for informational/ educational purposes only.) ?? 09/19/2021 9:58 AM EDT Frances Fowler BODY MAN HISTORICAL/NON ORDERABLE LABS Final Result Performing Organization Address [facility] Co de Phone Number [facility] [address] * ALBUMIN, RANDOM URINE W/CREATININE (09/13/2021 [...] Creatinine, Urine 58 20 - 275 mg/dL [facility] 09/13/2021 2:19 PM EDT Frances Fowler BODY MAN LAB URINE ORDERABLES Final Res ult Performing Organization Address [facility] Co de Phone Number [facility] [address] * Hm Colonoscopy (01/19/2021 8:45 AM EDT) Historical Provider MD HEALTH MAINTENANCE Final Result from Last 3 Months or Most Recently Relevant to Health Maintenance Insurance [facility] STAND ADULT Care Teams Manager International Relationship Specialty Start Date End Date Mary Flores MD [address] [place] [phone] PCP - General Family Medicine 01/05/22
--- OUTSIDE RECORDS SUMMARY | 2024-07-09 07:28 | XMS_ITS | Encounter Summary ---
Author Organization [employer] Address [address] [facility] [address] [place] [address] Care Team Providers Care Makeup Sales Advisor Name Role Phone Mary Flores MD Primary Care Provider [phone] Encounter Details Date Type Department Care Team (Late st Contact Info) Description 12/17/2023 Orders Only [facility] [address] [place] [address] Mary Flores MD [address] [place] [address] Social History Tobacco Use Types Packs/Day Years [...] Description 07/12/2024 3:30 PM EST Office Visit [facility] [address] [place] [address] Mary Flores MD [address] [place] [address] documented as of this encounter Visit Diagnoses Not on filedocumented in this encounter Additional Health Concerns Assessment Noted Time PHQ-9 Depression Total Score: 7 11/10/19 24 2:30 PM EDT documented as of this encounter Care Teams Makeup Sales Advisor Relationship Specialty Start Date End Date Mary Flores MD [address] [place], [place] [phone] PCP - General Family Medicine 01/05/22 documented as of this encounter
--- OUTSIDE RECORDS SUMMARY | 2024-07-09 07:28 | XMS_ITS | Encounter Summary ---
Author Organization [employer] Address [address] [facility] [address] [place] [address] Care Team Providers Care Pack Worker Supervisor Name Role Phone Mary Flores MD Primary Care Provider Reason for Visit * Reason Onset Date Comments FYI 07/06/2024 Encounter Details Date Type Department Care Team ([facility] st Contact Info) Description 07/06/2024 Telephone [facility] [address] [place], [place] [phone] Mary Flores MD [address] [place] [address] FYI Social History Tobacco Use Types Packs/Day Years [...] encounter Miscellaneous Notes * Telephone Encounter - Tatiana Dorsey RN - 07/06/2024 10:05 [place] [id number] to discuss medication compliance. Pt was seen this morning by visiting nurse and medication compliance issues were noted. Nurse is requesting bubble pack for pt. Pt scheduled for appt to discuss meds on 07/12/24 at 3:30 pm with PCP, pt agrees to plan. * Telephone Encounter - Richard Rodriguez - 07/06/2024 9:21 AM EST Tc from [facility] nurse continuous pillowcase cutter with (Case force) informing pt hasn't been taking medications , pt has duplicate bottles of medications. [facility] is requesting for pt medication to be given to pt in bubble pack and divided as pt not taking them correctly. If any questions please contact [facility] (confidential voicemail) Phone number [phone] documented in this encounter Plan of Treatment Upcoming Encounters Date Type Department Care Team (Late st Contact Info) Description 07/12/2024 3:30 PM EST Office Visit [facility] [address] [place], [place] [phone] aMry Flores MD [address] [place] [address] documented as of this encounter Visit Diagnoses Not on filedocumented in this encounter Additional Health Concerns Assessment Noted Time PHQ-9 Depression Total Score: 7 11/10/19 24 2:30 PM EDT documented as of this encounter Care Teams Pack Worker Supervisor Relationship Specialty Start Date End Date Mary Flores MD [address] [place] [address] PCP - General Family Medicine 01/05/22 documented as of this encounter
--- OUTSIDE RECORDS SUMMARY | 2024-07-09 07:28 | XMS_ITS | Encounter Summary ---
Author Organization [employer] Address [address] [place] [address] Care Team Providers Care Electric Truck Driver Name Role Phone Mary Flores MD Primary Care Provider [phone] Reason for Visit * Reason Onset Date Comments filling fell out 01/19/2024 Encounter Details Date Type Department Care Team ([facility] st Contact Info) Description 01/19/2024 Telephone [facility] [address] [place] [address] Sari Mckinnon, DDS [address] [place] [address] filling fell out Social History Tobacco Use [...] Description 07/12/2024 3:30 PM EST Office Visit [facility] [address] [place] [address] Mary Flores MD [address] [place] [address] documented as of this encounter Visit Diagnoses Not on filedocumented in this encounter Additional Health Concerns Assessment Noted Time PHQ-9 Depression Total Score: 7 11/10/19 24 2:30 PM EDT documented as of this encounter Care Teams Electric Truck Driver Relationship Specialty Start Date End Date Mary Flores MD [address] [place] [phone] PCP - General Family Medicine 01/05/22 documented as of this encounter
--- OUTSIDE RECORDS SUMMARY | 2024-07-09 07:28 | XMS_ITS | Encounter Summary ---
Author Organization [employer] Address [address] [facility] [address] [place] [address] Care Team Providers Care Refractory Manager Name Role Phone Mary Flores MD Primary Care Provider [phone] Reason for Visit * Reason Comments Med Refill Encounter Details Date Type Department Care Team ([facility] st Contact Info) Description 04/19/2024 Refill [facility] [address] [place], [place] [phone] Olga Dillard ANP [address] [place] [address] Nasal congestion Social History Tobacco Use Types [...] 3:30 PM EST Office Visit [facility] [address] [place] [phone] Mary Flores MD [address] [place] [address] documented as of this encounter Visit Diagnoses Diagnosis Nasal congestion Other diseases of nasal cavity and sinuses documented in this encounter Additional Health Concerns Assessment Noted Time PHQ-9 Depression Total Score: 7 11/10/19 24 2:30 PM EDT documented as of this encounter Care Teams Refractory Manager Relationship Specialty Start Date End Date Mary Flores MD [address] [place] [phone] PCP - General Family Medicine 01/05/22 documented as of this encounter
--- OUTSIDE RECORDS SUMMARY | 2024-07-09 07:28 | XMS_ITS | Encounter Summary ---
Author Organization [employer] Address [address] [facility] [address] [place] [address] Care Team Providers Care Marble Chip Terrazzo Worker Name Role Phone Mary Flores MD Primary Care Provider [phone] Reason for Visit * Reason Comments Med Refill Encounter Details Date Type Department Care Team ([facility] st Contact Info) Description 06/14/2024 Refill [facility] [address] [place], [place] [phone] Mary Flores MD [address] [place], [place] [phone] Social History Tobacco Use Types Packs/Day Years [...] Description 07/12/2024 3:30 PM EST Office Visit [facility] [address] [place] [phone] Mary Flores MD [address] [place] [phone] documented as of this encounter Visit Diagnoses Not on filedocumented in this encounter Additional Health Concerns Assessment Noted Time PHQ-9 Depression Total Score: 7 11/10/19 24 2:30 PM EDT documented as of this encounter Care Teams Marble Chip Terrazzo Worker Relationship Specialty Start Date End Date Mary Flores MD [address] [place] [phone] PCP - General Family Medicine 01/05/22 documented as of this encounter
== END 2024-07-09 07:26 | disposition home or self-care (01) ==
LOC: HO.MRI 07:25
PROVIDERS: PCP General Practice; Visit Provider Nurse Practitioner Family
DX: R25.1 Tremor, unspecified (principal); M54.2 Cervicalgia; R29.898 Other symptoms and signs involving the musculoskeletal system
CPT/HCPCS: 72141

== ENCOUNTER → 2024-07-09 07:40 | Outpatient (BNV) | payer OTHER, SELFPAY | PROVIDERS: PCP General Practice; Visit Provider Radiology Diagnostic Radiology | DX: R25.1 Tremor, unspecified (principal) | CPT/HCPCS: 72141 ==

== ENCOUNTER 2024-08-02 09:33 | Outpatient (AMB) | payer OTHER, SELFPAY ==
--- NOTE | 2024-08-02 10:24 | MHC.OFFVIS ---
Vital Signs 08/02/24 10:27 Height 5 ft 3 in BP 132/78 Blood Pressure Location Lt brachial Position Sitting Pulse 72 Pulse Source Pulse Oximeter Pulse Oximetry (%) 96 Intake Visit Reasons: Dupixent teaching Allergies morphine [MORPHINE] Allergy (Intermediate, Verified 08/02/24 10:28) NAUSEA, rash, redness Medication List - Last Reconciled 08/02/24 by Genevieve Miner LPN acetaminophen ER 650 mg PO Q6H PRN albuterol sulfate 90 mcg/actuation 2 puffs inhalation Q4H PRN albuterol sulfate 2.5 mg (3 mL) inhalation Q4H PRN 30 days alcohol swabs (Alcohol Pads) 1 pad topical NEEDED alendronate 70 mg PO MO aspirin 1 tab PO DAILY atorvastatin 10 mg PO DAILY bisacodyl (Dulcolax (bisacodyl)) 10 mg PO BEDTIME blood-glucose meter (RoyalCactusyle [place] Lite kit) As directed budesonide-formoterol 160-4.5 mcg/actuation 2 puffs inhalation BID 30 days carbidopa-levodopa 25-100 mg 1 tab PO BID 30 days carvedilol 25 mg PO BID cetirizine 10 mg PO DAILY cholecalciferol (vitamin D3) (Vitamin D3) 50 mcg PO DAILY docusate sodium 100 mg PO .BID WITH FOOD 30 days dupilumab (Dupixent) loading dose: 600mg SC x 1, then 300mg SC every 2 weeks 4 weeks fluticasone furoate-vilanterol 200-25 mcg/dose (Breo Ellipta) 1 ea PO DAILY guaifenesin 100 mg (5 mL) PO Q6H PRN imipramine HCl 100 mg (2 x 50 mg) PO BEDTIME lancets (FreeStyle Lancets) As directed linaclotide (Linzess) 290 mcg PO QAM vivleh-rvxhwcww-kpcpbut 24,000-76,000 -120,000 unit (Creon) 1 cap PO QIDACHS 30 days magnesium oxide 400 mg PO BEDTIME 30 days metformin 500 mg PO DAILY montelukast 10 mg PO DAILY 30 days nebulizers As directed omeprazole 20 mg PO DAILY prednisone 40 mg (2 x 20 mg) PO DAILY roflumilast 500 mcg PO DAILY roflumilast (Daliresp) 500 mcg PO DAILY 30 days tiotropium bromide 2.5 mcg/actuation (Spiriva Respimat) 2 puffs inhalation DAILY 30 days walker Folding Front wheeled walker duration 99 days HPI Comments Details: Margarita? is here for a Dupixent teach. Margarita and her Santino were educated on hand washing, injection preparation, administration, and disposal.? Santino was able to return demonstrate proper technique for hand washing, injection preparation, administration and disposal of needle and states he has no questions at this time. Medication Dupixent 300mg/2mL pre-filled PEN (patient?s own meds) Loading dose of 600mg given by the patient's spouse in 2 SQ injections; injection #1 L upper arm;? injection #2 R upper arm? Lot# [id number] expires 12/09/2025. Patient aware her next injection is in 15 days. Nurse visit only.? [facility] Medical History Atelectasis of left lung Chronic pain syndrome 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 Sacroiliitis Disc degeneration, lumbar OTILIO (obstructive sleep apnea) Back pain HTN (hypertension) Skin cancer (melanoma) GERD (gastroesophageal reflux disease) Depression OTILIO (obstructive sleep apnea) Kidney stones Pulmonary nodule Severe asthma Primary osteoarthritis involving multiple joints Pneumonia Chronic allergic rhinitis (~03/09/20) Asthma-COPD overlap syndrome Surgical History History of bronchoscopy History of cystoscopy History of laparoscopic appendectomy History of nasal surgery Hx of section Hx of tubal ligation Hx of colonoscopy History of esophagogastroduodenoscopy (EGD) Hx of knee surgery Family History Father No problems noted. Mother No problems noted. Social History Household Members: Children Housing: Apartment Do you presently have visiting nurse or other home services: Yes (private home health aid) Alcohol intake: never Patient Tobacco Use Status: Never used Tobacco e-Cigarette/Vaping Use: Never Used Second Hand Smoke Exposure: No Advance Directives Date on File: 10/13/23 service: No Current occupational status: disabled Current occupation: rt handed Physical Exam Vital Signs: Last Vital Signs Pulse 72 08/02/24 10:27 BP 132/78 08/02/24 10:27 Pulse Ox 96 08/02/24 10:27 Assessment & Plan Assessment & Plan (1) Severe asthma: Code(s): J45.909 - Unspecified asthma, uncomplicated Category: Medical Qualifiers: Asthma complication type: uncomplicated Asthma persistence: persistent Qualified Code(s): J45.50 - Severe persistent asthma, uncomplicated Plan start Dupixent Coding Level of Care Code Established Pt Est Pt Level 1 (59921) Patient Type Established Diagnoses Severe persistent asthma without complication J45.50 Asthma complication type: uncomplicated Asthma persistence: persistent Comment NURSE VISIT ONLY
[2024-08-02 10:27] VITALS: BP 132/78; PULSE 72; O2SAT 96
== END 2024-08-02 10:32 | disposition home or self-care (01) ==
LOC: HO.HPS 09:34
PROVIDERS: PCP General Practice; Visit Provider Hospitalist
DX: J45.50 Severe persistent asthma, uncomplicated (principal)

== ENCOUNTER → 2024-08-02 09:33 | Outpatient (BNVA) | payer OTHER, SELFPAY | PROVIDERS: PCP General Practice; Visit Provider Hospitalist | DX: J45.50 Severe persistent asthma, uncomplicated (principal) | CPT/HCPCS: 99211 ==

== ENCOUNTER 2024-08-06 06:18 | Emergency (ER) | payer OTHER, SELFPAY ==
--- NOTE | 2024-08-06 | ECG_ITS ---
Test Reason : cp Blood Pressure : */* mmHG Vent. Rate : 98 BPM Atrial Rate : 98 BPM P-R Int : 158 ms QRS Dur : 128 ms QT Int : 374 ms P-R-T Axes : 48 45 15 degrees QTcB Int : 477 ms Normal sinus rhythm Right bundle branch block Abnormal ECG When compared with ECG of 04-Feb-2024 10:49, No significant change was found Referred By: Generic ED Physician Electronically Signed By: DANIA LINARES MD
--- NOTE | ~2024-08-06 | CT_ITS ---
EXAMINATION: CT CHEST WITH IV CONTRAST INDICATION: sob ? pna on xray COMPARISON: Correlation is made with an AP portable view of the chest performed earlier in the day. TECHNIQUE: Helical CT scan of the chest was performed following administration of intravenous contrast. Coronal and sagittal reformatted images were generated and reviewed. This CT exam was performed with one or more of the following dose reduction techniques: automated exposure control, adjustment of the mA and/or kV according to patient size, use of iterative reconstruction technique. DLP: 250 mGy-cm CHEST: THYROID: The thyroid is unremarkable. LUNGS: There is subsegmental atelectasis at the left lung base. The right lung is clear. MEDIASTINUM: There is no mediastinal lymphadenopathy. DAYLIN: There is no hilar lymphadenopathy. CARDIOVASCULATURE: The heart is normal in size. There is no pericardial effusion. The thoracic aorta is normal in caliber. DEGREE OF CORONARY CALCIFICATION: none PLEURA: There is a small left pleural effusion. There is no right pleural effusion. No pneumothorax. MAIN AIRWAYS: The mainstem bronchi and proximal branches are patent. AXILLA: There is no axillary lymphadenopathy. BONES AND SOFT TISSUES: There is mild degenerative disc disease of the spine. There is a small hiatal hernia. UPPER ABDOMEN: The visualized portions of the liver, spleen, and adrenals are unremarkable. CT/CT chest w IV con IMPRESSION: Small left pleural effusion with adjacent subsegmental atelectasis. Electronically signed by: Alfred Stewart MD 08/06/2024 09:40 AM EDT
--- NOTE | ~2024-08-06 | XR_ITS ---
EXAMINATION: XR CHEST 1 VIEW HISTORY: sob COMPARISON: Comparison is made with the prior examination dated 02/04/2024. FINDINGS: A single AP portable view of the chest performed at 8:17 AM is submitted. There is opacification of the left lung base which may represent atelectasis, pneumonia, or pleural fluid. The right lung is clear. There is no pneumothorax or pulmonary vascular congestion. The heart is normal in size. The aorta is calcified. There is mild degenerative disc disease of the spine. XR/XR chest 1V IMPRESSION: Opacification of the left lung base which may represent atelectasis, pneumonia, or pleural fluid. Electronically signed by: Alfred Stewart MD 08/06/2024 08:24 AM EDT
[2024-08-06 06:23] VITALS: BP 148/80; PULSE 97; RESP 18; O2SAT 93; BMI 35.5
[2024-08-06 06:37] LABS: Basophils Absolute Auto 0.1 X10*3/uL (0.0-0.2); Basophils Percent Auto 0.7 % (0-2); Eosinophils Absolute Auto 0.7 X10*3/uL (0.0-0.4); Eosinophils Percent Auto 7.7 % (0-4); Hematocrit 39.9 % (37.0-47.0); Hemoglobin 13.6 g/dl (12.0-16.0); Imm Gran Abs Auto 0.03 X10*3/uL (0.00-0.03); Imm Gran Pct Auto 0.3 % (0.0-0.4); Lymphocytes Absolute Auto 1.5 X10*3/uL (1.2-4.9); Lymphocytes Percent Auto 16.2 % (20-40); MANUAL DIFF FLAG NO; Mean Corpuscular HGB Conc 34.1 g/dl (31.0-35.0); Mean Corpuscular Volume 87.9 fL (80.0-98.0); Mean Platelet Volume 10.7 fL (9.4-12.3); Monocytes Absolute Auto 0.9 X10*3/uL (0.1-1.2); Monocytes Percent Auto 9.3 % (2-11); Neutrophils Absolute Auto 6.3 x10*3/uL (2.0-8.3); Neutrophils Percent Auto 65.8 % (45-73); Platelet Count 267 X10*3/uL (160-400); Red Blood Count 4.54 X10*6/uL (4.20-5.50); Red Cell Distribution Width 12.9 % (11.0-16.0); White Blood Count 9.5 X10*3/uL (4.8-10.8)
[2024-08-06 06:52] LABS: Alanine Aminotransferase 16 U/L (0-31); Albumin Level 3.9 g/dL (3.5-5.0); Alkaline Phosphatase 83 U/L (39-117); Anion Gap 10 (12-20); Aspartate Amino Transferase 23 U/L (5-31); Bilirubin Total 1.4 mg/dL (0.0-1.0); Blood Urea Nitrogen 14 mg/dL (9-16); Calcium 9.5 mg/dL (8.4-10.2); Carbon Dioxide 24 mmol/L (22-29); Chloride 108 mmol/L (96-108); Creatinine Clr Calc Pharmacy 77.7; Estimated Glomerular Filt Rate > 60; Glucose Random 140 mg/dL (60-115); Potassium 4.3 mmol/L (3.3-5.1); Sodium 138 mmol/L (135-145)
[2024-08-06 06:59] LABS: Troponin-I High Sensitivity 2.9 ng/L (<3.5-17.0)
--- NOTE | 2024-08-06 07:48 | ED.CHESTPAIN ---
HPI - Chest Pain General Chief Complaint: Chest Pain Stated Complaint: chest pain fever Time Seen by Provider: 08/06/24 07:11 Source: patient Mode of arrival: ambulatory Limitations: no limitations History of Present Illness ED Provider: ADRIAN Mccloud HPI narrative: This is a 74-year-old female past medical history significant for anemia, tremor, COPD, oa,, constipation, tubular adenoma colon, asthma presenting with chest pain ( left sided pressure, constant), shortness of breath, fatigue, malaise, myalgias, fever ( tmax 102F). Patient denies any sick contacts. She reports overall the past few days she just has not been feeling well. She denies headache, neck pain, vision changes, dizziness, nausea, vomiting, diarrhea, abdominal pain. Related Data Home Medications ?Medication ?Instructions ?Recorded ?Confirmed aspirin 81 mg chewable tablet 1 tab PO DAILY 03/09/20 08/02/24 nebulizers 07/15/23 08/02/24 cholecalciferol (vitamin D3) 50 50 mcg PO DAILY 09/18/23 08/02/24 mcg (2,000 unit) capsule (Vitamin D3) acetaminophen 650 mg 650 mg PO Q6H PRN pain or fever 10/08/23 08/02/24 tablet,extended release alendronate 70 mg tablet 70 mg PO MO 10/08/23 08/02/24 metformin 500 mg tablet 500 mg PO DAILY 10/08/23 08/02/24 carvedilol 25 mg tablet 25 mg PO BID 12/11/23 08/02/24 roflumilast 500 mcg tablet 500 mcg PO DAILY 12/11/23 08/02/24 atorvastatin 10 mg tablet 10 mg PO DAILY 01/19/24 08/02/24 albuterol sulfate 90 mcg/actuation 2 puff inhalation Q4H PRN 02/04/24 08/02/24 aerosol inhaler shortness of breath or wheezing bisacodyl 5 mg tablet,delayed 10 mg PO BEDTIME 02/04/24 08/02/24 release (Dulcolax (bisacodyl)) Previous Rx's ?Medication ?Instructions ?Recorded fluticasone furoate 200 1 ea PO DAILY #60 ea 07/15/23 mcg-vilanterol 25 mcg/dose inhalation powder (Breo Ellipta) alcohol swabs (Alcohol Pads) 1 pad topical NEEDED #100 ea 02/07/24 blood-glucose meter (FreeStyle #1 ea 02/07/24 Chandler Lite kit) guaifenesin 100 mg/5 mL oral liquid 100 mg (5 mL) PO Q6H PRN Cough 02/07/24 #473 mL lancets 28 gauge (FreeStyle #100 ea 02/07/24 Lancets) prednisone 20 mg tablet 40 mg (2 x 20 mg) PO DAILY #10 tabs 02/07/24 walker #1 ea 04/14/24 albuterol sulfate 2.5 mg/3 mL 2.5 mg (3 mL) inhalation Q4H PRN 06/01/24 (0.083 %) solution for nebulization shortness of breath or wheezing 30 days #360 mL budesonide-formoterol HFA 160 2 puff inhalation BID 30 days 06/01/24 mcg-4.5 mcg/actuation aerosol #10.2 grams inhaler montelukast 10 mg tablet 10 mg PO DAILY 30 days #30 tabs 06/01/24 roflumilast 500 mcg tablet 500 mcg PO DAILY 30 days #30 tabs 06/01/24 (Daliresp) tiotropium bromide 2.5 2 puff inhalation DAILY 30 days #1 06/01/24 mcg/actuation mist for inhalation ea (Spiriva Respimat) magnesium oxide 400 mg (241.3 mg 400 mg PO BEDTIME 30 days #30 tabs 06/11/24 magnesium) tablet carbidopa 25 mg-levodopa 100 mg 1 tab PO BID 30 days #60 tabs 06/14/24 tablet docusate sodium 100 mg capsule 100 mg PO .BID WITH FOOD 30 days 06/22/24 #60 caps imipramine HCl 50 mg tablet 100 mg (2 x 50 mg) PO BEDTIME #60 06/22/24 tabs linaclotide 290 mcg capsule 290 mcg PO QAM #30 caps 06/22/24 (Linzess) fhvtoz-yczexrrb-ofzssje 1 cap PO QIDACHS 30 days #120 caps 06/22/24 24,000-76,000-120,000 unit capsule,delayed rel (Creon) omeprazole 20 mg capsule,delayed 20 mg PO DAILY #30 caps 06/22/24 release cetirizine 10 mg tablet 10 mg PO DAILY #90 tabs 07/15/24 dupilumab 300 mg/2 mL subcutaneous See Rx Instructions subcut Q2W 4 07/28/24 pen injector (Dupixent) weeks #4 mL albuterol sulfate 90 mcg/actuation 2 inh inhalation Q4-6H PRN 08/06/24 breath activated powder inhaler shortness of breath or wheezing #1 ea doxycycline hyclate 100 mg capsule 100 mg PO BID 10 days #20 caps 08/06/24 prednisone 20 mg tablet 40 mg (2 x 20 mg) PO DAILY 5 days 08/06/24 #10 tabs Allergies Allergy/AdvReac Type Severity Reaction Status Date / Time morphine [MORPHINE] Allergy Intermediate NAUSEA, Verified 08/06/24 06:28 rash, redness Review of Systems Review of Systems: Yes all other systems are reviewed and are negative PMFSH Past Medical History Attestation statement: The following information was validated with the patient. Source: old records reviewed and nursing notes reviewed Medical History Atelectasis of left lung Chronic pain syndrome 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 Sacroiliitis Disc degeneration, lumbar OTILIO (obstructive sleep apnea) Back pain HTN (hypertension) Skin cancer (melanoma) GERD (gastroesophageal reflux disease) Depression OTILIO (obstructive sleep apnea) Kidney stones Pulmonary nodule Severe asthma Primary osteoarthritis involving multiple joints Pneumonia Chronic allergic rhinitis (~03/09/20) Asthma-COPD overlap syndrome Surgical History History of bronchoscopy History of cystoscopy History of laparoscopic appendectomy History of nasal surgery Hx of section Hx of tubal ligation Hx of colonoscopy History of esophagogastroduodenoscopy (EGD) Hx of knee surgery Family History Family History Father No problems noted. Mother No problems noted. Social History Social History Household Members: Children Housing: Apartment Do you presently have visiting nurse or other home services: Yes (private home health aid) Alcohol intake: never Patient Tobacco Use Status: Never used Tobacco e-Cigarette/Vaping Use: Never Used Second Hand Smoke Exposure: No Advance Directives: Yes Advance Directives on File: Yes Advance Directives Date on File: 10/13/23 service: No Current occupational status: disabled Current occupation: rt handed Physical Exam Vital Signs: Vital Signs: Last Vital Signs Temp 98.8 F 08/06/24 08:41 Pulse 98 08/06/24 11:05 Resp 18 08/06/24 11:05 BP 143/75 H 08/06/24 08:41 Pulse Ox 95 08/06/24 08:41 O2 Del Method Room Air 08/06/24 08:41 BMI result Body Mass Index 35.5 vss Appearance: Alert.? Oriented X3.? No acute distress.? Head: Normocephalic, atraumatic, no step-offs or deformities Eyes: Pupils equal, round and reactive to light.? Neck: Normal inspection.? Neck supple.? CVS: Normal heart rate and rhythm.? Pulses normal.? Respiratory: No respiratory distress.? Breath sounds normal.? Abdomen: Soft and nontender.? Skin: Skin warm and dry.? Normal skin color.? Normal skin turgor.? Extremities: No lower extremity edema.? No calf ttp. 5/5 strength to bilateral upper and lower extremities Neuro: Oriented X 3.? No motor deficit.? No sensory deficit. CN 2-12 intact Course Reevaluation(s) Reevaluation #1: Chest x-ray with opacification of the left lung base which may represent atelectasis, pneumonia or pleural fluid. A CT was done for further evaluation of this which still shows a small left pleural effusion with adjacent subsegmental atelectasis. Based off patient's symptoms will treat for pneumonia however. CBC unremarkable. Chemistry no acute findings needing intervention. Troponin negative x2. Flu, COVID, RSV negative. Patient appears anxious. Will give her a DuoNeb at this time she is just slightly diminished bilaterally. Plan is for discharge home with antibiotics, prednisone and PCP follow-up. Educated patient on diagnosis and treatment plan, answered all question, patient verbalizes understanding. At this time patient will be discharged home, advised to return with new or worsening symptoms. Educated on worrisome signs and symptoms and when to return. At this time I feel comfortable discharge home. Time: 10:55 Medications Administered Discontinued Medications Generic Name Dose Route Start Last Admin Trade Name Freq PRN Reason Stop Dose Admin Albuterol Sulfate 2.5 mg/ 0 mg 08/06/24 10:51 08/06/24 11:02 Albuterol/Ipratropium 3 ml INHALE 08/06/24 10:52 5 dose ONCE ONE Administration Iohexol 100 ml 08/06/24 09:30 08/06/24 09:30 Iohexol 350 Mg/Ml 100 Ml Infus..Btl IV 08/06/24 09:31 65 ml ONCE ONE Administration Medical Decision Making Medical Decision Making [facility] Narrative: 74 year old female presents with fatigue, malaise, myalgias, fevers, chills ongoing for 3 days with associated chest discomfort and shortness of breath. No sick contacts. PE benign History and physical exam concerning for viral illness. Unlikely PE, ACS, dissection, acute respiratory distress, pneumothorax, pericarditis, myocarditis or endocarditis. Plan labs, EKG Differential Diagnosis Differential Diagnoses: The differential diagnosis associated with the presentation includes (History and physical exam concerning for viral illness. Unlikely PE, ACS, dissection, acute respiratory distress, pneumothorax, pericarditis, myocarditis or endocarditis.) Admission/Observation Consideration of admission/observation: Escalation of care including admission/observation considered (possible ) Lab Data [facility] Lab Attestation statement: I reviewed the patient's lab results. 08/06/24 06:32 08/06/24 06:32 Labs: Lab Results 08/06/24 08/06/24 08/06/24 Range/Units 06:32 07:38 10:20 WBC 9.5 (4.8-10.8) X10*3/uL RBC 4.54 (4.20-5.50) X10*6/uL Hgb 13.6 (12.0-16.0) g/dl Hct 39.9 (37.0-47.0) % MCV 87.9 (80.0-98.0) fL MCH 30.0 (27.0-33.0) pg MCHC 34.1 (31.0-35.0) g/dl RDW 12.9 (11.0-16.0) % Plt Count 267 (160-400) X10*3/uL MPV 10.7 (9.4-12.3) fL Immature Gran % (Auto) 0.3 (0.0-0.4) % Neut % (Auto) 65.8 (45-73) % Lymph % (Auto) 16.2 L (20-40) % Overton % (Auto) 9.3 (2-11) % Eos % (Auto) 7.7 H (0-4) % Baso % (Auto) 0.7 (0-2) % Lymph # (Auto) 1.5 (1.2-4.9) X10*3/uL Overton # (Auto) 0.9 (0.1-1.2) X10*3/uL Eos # (Auto) 0.7 H (0.0-0.4) X10*3/uL Baso # (Auto) 0.1 (0.0-0.2) X10*3/uL Abs Immat Gran (auto) 0.03 (0.00-0.03) X10*3/uL Absolute Neuts (auto) 6.3 (2.0-8.3) x10*3/uL Absolute Nucleated RBC 0.000 (0.0-0.012) X10*3/uL Nucleated RBC % (auto) 0.0 (0.0-0.2) /100WBC Sodium 138 (135-145) mmol/L Potassium 4.3 (3.3-5.1) mmol/L Chloride 108 (96-108) mmol/L Carbon Dioxide 24 (22-29) mmol/L Anion Gap 10 L (12-20) BUN 14 (9-16) mg/dL Creatinine 0.67 (0.5-1.4) mg/dL Estim Creat Clear Calc 77.7 Estimated GFR > 60 Random Glucose 140 H (60-115) mg/dL Calcium 9.5 (8.4-10.2) mg/dL Total Bilirubin 1.4 H (0.0-1.0) mg/dL AST 23 (5-31) U/L ALT 16 (0-31) U/L Alkaline Phosphatase 83 (39-117) U/L Troponin I High Sens 2.9 < 2.7 (<3.5-17.0) ng/L Total Protein 7.0 (6.5-8.0) g/dL Albumin 3.9 (3.5-5.0) g/dL Influenza Type A (PCR) NEGATIVE (Negative) Influenza Type B (PCR) NEGATIVE (Negative) RSV RNA Qual (PCR) NEGATIVE (Negative) SARS-CoV-2 RNA (RT-PCR) NEGATIVE (Negative) Independent Interpretation I performed an independent interpretation of an: EKG and Plain X-Ray Radiology Impression Discussion of test interpretation with radiology: I have reviewed the radiologist's reading. External Record Review External record reviewed: Inpatient record, Office record, Outpatient record, Prior outpatient labs, Prior outpatient radiology, Primary care record and Outside ED record Chronic Conditions Patient?s care impacted by: Other (see hpi ) Critical Care Time Critical Care Time Critical Care Time: Yes Total Critical Care Time: 35 Attestation: I attest to this time spent taking care of the patient, obtaining history, physical, reviewing labs, imaging, speaking to my attending and or speaking to specialist. Or preforming a procedure Discharge Plan Discharge Clinical Impression: Pneumonia, Pleural effusion, Shortness of breath Patient Disposition: Home, Self-Care Instructions: Pleural Effusion (ED), Pneumonia (ED), Shortness of Breath (ED) Additional Instructions: Take your medications as prescribed. If you were prescribed antibiotics today, it is important that you take your medication to their entirety, do not skip any doses, do not finish them early. Follow-up with your primary care provider this week. Return to the emergency department with new or worsening symptoms. Such as fevers, chills, chest pain, shortness of breath, nausea, vomiting, dizziness, headache, vision changes, lethargy In case of emergency call 911 CHEST: THYROID: The thyroid is unremarkable. LUNGS: There is subsegmental atelectasis at the left lung base. The right lung is clear. MEDIASTINUM: There is no mediastinal lymphadenopathy. DAYLIN: There is no hilar lymphadenopathy. CARDIOVASCULATURE: The heart is normal in size. There is no pericardial effusion. The thoracic aorta is normal in caliber. DEGREE OF CORONARY CALCIFICATION: none PLEURA: There is a small left pleural effusion. There is no right pleural effusion. No pneumothorax. MAIN AIRWAYS: The mainstem bronchi and proximal branches are patent. AXILLA: There is no axillary lymphadenopathy. BONES AND SOFT TISSUES: There is mild degenerative disc disease of the spine. There is a small hiatal hernia. UPPER ABDOMEN: The visualized portions of the liver, spleen, and adrenals are unremarkable. XR/XR chest 1V IMPRESSION: Opacification of the left lung base which may represent atelectasis, pneumonia, or pleural fluid. Prescriptions: New doxycycline hyclate 100 mg capsule 100 mg PO BID 10 Days Qty: 20 0RF albuterol sulfate 90 mcg/actuation aerosol powdr breath activated 2 inh inhalation Q4-6H PRN (Reason: shortness of breath or wheezing) Qty: 1 0RF prednisone 20 mg tablet 40 mg PO DAILY 5 Days Qty: 10 0RF No Action (DME) walker Misc See Rx Instructions .MEDSUPPLY Qty: 1 0RF Rx Instructions: Folding Front wheeled walker duration 99 days montelukast 10 mg tablet 10 mg PO DAILY 30 Days Qty: 30 11RF budesonide-formoterol 160-4.5 mcg/actuation HFA aerosol inhaler 2 puff inhalation BID 30 Days Qty: 10.2 11RF Spiriva Respimat 2.5 mcg/actuation mist 2 puff inhalation DAILY 30 Days Qty: 1 11RF Daliresp 500 mcg tablet 500 mcg PO DAILY 30 Days Qty: 30 11RF albuterol sulfate 2.5 mg /3 mL (0.083 %) solution for nebulization 2.5 mg inhalation Q4H PRN (Reason: shortness of breath or wheezing) 30 Days Qty: 360 11RF carbidopa-levodopa 25-100 mg tablet 1 tab PO BID 30 Days Qty: 60 3RF Rx Instructions: 30 minutos antes desayunar y cenar. imipramine HCl 50 mg tablet 100 mg PO BEDTIME Qty: 60 6RF Linzess 290 mcg capsule 290 mcg PO QAM Qty: 30 6RF Creon 24,000-76,000 -120,000 unit capsule,delayed release(DR/EC) 1 cap PO QIDACHS 30 Days Qty: 120 6RF Rx Instructions: administer with meals and/or snacks omeprazole 20 mg capsule,delayed release(DR/EC) 20 mg PO DAILY Qty: 30 6RF docusate sodium 100 mg capsule 100 mg PO .BID WITH FOOD 30 Days Qty: 60 6RF cetirizine 10 mg tablet 10 mg PO DAILY Qty: 90 2RF Dupixent Pen 300 mg/2 mL pen injector See Rx Instructions subcut Q2W 28 Days Qty: 4 11RF Rx Instructions: loading dose: 600mg SC x 1, then 300mg SC every 2 weeks metformin 500 mg tablet 500 mg PO DAILY alendronate 70 mg tablet 70 mg PO MO Rx Instructions: per patient friday or friday acetaminophen 650 mg tablet extended release 650 mg PO Q6H PRN (Reason: pain or fever) bisacodyl [Dulcolax (bisacodyl)] 5 mg tablet,delayed release (DR/EC) 10 mg PO BEDTIME albuterol sulfate 90 mcg/actuation HFA aerosol inhaler 2 puff inhalation Q4H PRN (Reason: shortness of breath or wheezing) prednisone 20 mg Tablet 40 mg PO DAILY Qty: 10 0RF guaifenesin 100 mg/5 mL Liquid 100 mg PO Q6H PRN (Reason: Cough) Qty: 473 0RF (DME) blood-glucose meter [JauntStyle Chandler Lite] Kit See Rx Instructions .Route Qty: 1 0RF Rx Instructions: As directed (DME) lancets [FreeStyle Lancets] 28 gauge [facility] [place] See Rx Instructions .Route Qty: 100 0RF Rx Instructions: As directed alcohol swabs [Alcohol Pads] Pads, Medicated 1 pad topical NEEDED Qty: 100 0RF aspirin 81 mg tablet,chewable 1 tab PO DAILY (DME) nebulizers [facility] See Rx Instructions .Route Rx Instructions: As directed fluticasone furoate-vilanterol [Breo Ellipta] 200-25 mcg/dose blister with device 1 ea PO DAILY Qty: 60 11RF atorvastatin 10 mg tablet 10 mg PO DAILY cholecalciferol (vitamin D3) [Vitamin D3] 50 mcg (2,000 unit) capsule 50 mcg PO DAILY magnesium oxide 400 mg (241.3 mg magnesium) tablet 400 mg PO BEDTIME 30 Days Qty: 30 6RF Rx Instructions: may hold for loose stools roflumilast 500 mcg tablet 500 mcg PO DAILY carvedilol 25 mg tablet 25 mg PO BID Referrals: Mary Flores MD [Primary Care Provider] - 2 days Stand Alone Forms: Work/School Release Print Language: Salvadorean
[2024-08-06 08:27] LABS: Influenza A PCR NEGATIVE (Negative); Influenza B PCR NEGATIVE (Negative); Resp Syncy Virus RNA Qual PCR NEGATIVE (Negative); SARS COV2 PCR INHOUSE NEGATIVE (Negative)
[2024-08-06 08:41] VITALS: BP 143/75; PULSE 77; RESP 18; TEMP 37.1; O2SAT 95
[2024-08-06] MEDS: iohexoL 350 MG/ML 100 ML INFUS..BTL IV (09:30)
[2024-08-06 10:48] LABS: Troponin-I High Sensitivity < 2.7 ng/L (<3.5-17.0)
[2024-08-06] MEDS: Albuterol Sulfate 2.5 MG, Albuterol/Iprat 2.5/0.5MG 3 ML 3 ML INHALE (11:02)
[2024-08-06 11:05] VITALS: PULSE 98; RESP 18; O2SAT 98
[2024-08-06 12:07] VITALS: BP 132/78; PULSE 98; RESP 18; TEMP 36.8; O2SAT 94
== END 2024-08-06 12:07 | disposition home or self-care (01) ==
PROVIDERS: Physician Assistant; Emergency Provider Emergency Medicine; PCP General Practice
DX: J18.9 Pneumonia, unspecified organism (principal); J90 Pleural effusion, not elsewhere classified; R06.02 Shortness of breath; R07.9 Chest pain, unspecified; I10 Essential (primary) hypertension; J45.909 Unspecified asthma, uncomplicated; Z03.818 Encounter for observation for suspected exposure to other biological agents ruled out; Z79.899 Other long term (current) drug therapy
CPT/HCPCS: 0241U; 36415; 71045; 71260; 80053; 84484; 85025; 93005; 94640; 99284; Q9967

== ENCOUNTER → 2024-08-06 06:21 | Outpatient (BNV) | payer OTHER, SELFPAY | PROVIDERS: Emergency Provider Emergency Medicine; PCP General Practice; Visit Provider Internal Medicine Cardiovascular Disease | DX: I45.10 Unspecified right bundle-branch block (principal) | CPT/HCPCS: 93010 ==

== ENCOUNTER → 2024-08-06 07:57 | Outpatient (BNV) | payer OTHER, SELFPAY | PROVIDERS: Emergency Provider Emergency Medicine; PCP General Practice; Visit Provider Radiology Diagnostic Radiology | DX: J90 Pleural effusion, not elsewhere classified (principal); J98.11 Atelectasis; R06.02 Shortness of breath | CPT/HCPCS: 71045; 71260 ==

== ENCOUNTER 2024-08-15 13:33 | Observation (INO) | payer OTHER, SELFPAY ==
[2024-08-15] VITALS (12 sets, daily range): BP systolic 105–135; BP diastolic 70–86; PULSE 75–101; RESP 18–20; TEMP 36.7; O2SAT 93–96; BMI 35.5
--- NOTE | ~2024-08-15 | XR_ITS ---
CLINICAL HISTORY: chest pain 2 view chest x-ray Comparison: CR/SR - XR CHEST 2V - 02/04/24 11:41 EDT Findings: Small left pleural effusion. Left basilar airspace opacity. Heart size is normal. No acute fracture. IMPRESSION: Left basilar pneumonia with parapneumonic effusion. Pneumonia follow-up This document has been electronically signed by: David Villalobos MD on 08/15/2024 15:11:54
--- NOTE | ~2024-08-15 | CT_ITS ---
CLINICAL HISTORY: sob, cp CT angiography chest with contrast. 3D Postprocessing. Comparison: CT/[place] - CT ANGIO CHEST PE PROTOCOL - 08/15/24 14:42 EDT CR/SR - XR CHEST 2V - 02/04/24 11:41 EDT Findings: The heart size is normal. RV/LV ratio is normal. Calcification of the coronary vasculature. The thoracic aorta is normal caliber. No pulmonary artery filling defects. The visualized thyroid and mediastinum are unremarkable. Mild left basilar airspace opacity. Small left pleural effusion. The upper abdomen is unremarkable. No acute fractures. IMPRESSION: 1. No pulmonary embolus. 2. Left basilar pneumonia with small left pleural effusion. 3. Coronary artery disease. This document has been electronically signed by: David Villalobos MD on 08/15/2024 15:56:08
--- NOTE | 2024-08-15 13:37 | ECG_ITS ---
Test Reason : CHEST PAIN Blood Pressure : */* mmHG Vent. Rate : 98 BPM Atrial Rate : 98 BPM P-R Int : 150 ms QRS Dur : 136 ms QT Int : 382 ms P-R-T Axes : 25 4 26 degrees QTcB Int : 487 ms Normal sinus rhythm Right bundle branch block Abnormal ECG When compared with ECG of 06-Aug-2024 06:21, No significant change was found Referred By: Generic ED Physician Electronically Signed By: Dimitris Marquez
--- NOTE | 2024-08-15 13:44 | ED_ITS ---
HPI - General Adult General Chief complaint: Chest Pain Stated complaint: CP, recent PNA LLL Time Seen by Provider: 08/15/24 13:44 Source: patient, family (daughter) and diplomatic interpreter/translator Mode of arrival: EMS Limitations: language barrier History of Present Illness HPI narrative: 74-year-old female who has a history of COPD and asthma, anemia, GERD, presents for evaluation of chest pain and shortness of breath. Patient was originally seen at the hospital on August 06, diagnosed with small pleural effusion and placed on antibiotics. The patient and the daughter confirmed that she has been taking her doxycycline as well as prednisone. Patient follow up with her PCP on August 11 and Augmentin was added. Despite these medications, the patient today constant, sharp left-sided chest pain. It waxes and wanes in intensity and does not clear automatically. She reports it is worse with deep breathing. She does report orthopnea and dyspnea on exertion which is atypical. She denies any chills nausea or vomiting. Upon arrival in the exam room, patient reporting dizziness where the room is spinning. This is atypical for the patient. Related Data Home Medications ?Medication ?Instructions ?Recorded ?Confirmed aspirin 81 mg chewable tablet 1 tab PO DAILY 03/09/20 08/15/24 nebulizers 07/15/23 08/15/24 cholecalciferol (vitamin D3) 50 50 mcg PO DAILY 09/18/23 08/15/24 mcg (2,000 unit) capsule (Vitamin D3) acetaminophen 650 mg 650 mg PO Q6H PRN pain or fever 10/08/23 08/15/24 tablet,extended release metformin 500 mg tablet 500 mg PO DAILY 10/08/23 08/15/24 carvedilol 25 mg tablet 25 mg PO BID 12/11/23 08/15/24 atorvastatin 10 mg tablet 10 mg PO BEDTIME 01/19/24 08/15/24 albuterol sulfate 90 mcg/actuation 2 puff inhalation Q4H PRN 02/04/24 08/15/24 aerosol inhaler shortness of breath or wheezing bisacodyl 5 mg tablet,delayed 10 mg PO BEDTIME PRN Constipation 02/04/24 08/15/24 release (Dulcolax (bisacodyl)) amoxicillin 875 mg-potassium 1 tab PO BID 08/15/24 08/15/24 clavulanate 125 mg tablet diltiazem HCl 300 mg 300 mg PO DAILY 08/15/24 08/15/24 capsule,extended release 24 hr docusate sodium 100 mg capsule 100 mg PO BIDWM 08/15/24 08/15/24 dupilumab 300 mg/2 mL subcutaneous 300 mg subcut Q2W 08/15/24 08/15/24 pen injector (Dupixent) hydrochlorothiazide 12.5 mg tablet 12.5 mg PO DAILY 08/15/24 08/15/24 ibuprofen 800 mg tablet 800 mg PO Q6H PRN mild pain 08/15/24 08/15/24 linaclotide 290 mcg capsule 290 mcg PO DAILY 08/15/24 08/15/24 (Linzess) lisinopril 40 mg tablet 40 mg PO DAILY 08/15/24 08/15/24 montelukast 10 mg tablet 10 mg PO BEDTIME 08/15/24 08/15/24 omeprazole 20 mg capsule,delayed 20 mg PO DAILY@0630 08/15/24 08/15/24 release tiotropium bromide 2.5 2 puff inhalation DAILY 08/15/24 08/15/24 mcg/actuation mist for inhalation (Spiriva Respimat) Previous Rx's ?Medication ?Instructions ?Recorded blood-glucose meter (FreeStyle #1 ea 02/07/24 [place] Lite kit) guaifenesin 100 mg/5 mL oral liquid 100 mg (5 mL) PO Q6H PRN Cough 02/07/24 #473 mL lancets 28 gauge (FreeStyle #100 ea 02/07/24 Lancets) walker #1 ea 04/14/24 albuterol sulfate 2.5 mg/3 mL 2.5 mg (3 mL) inhalation Q4H PRN 06/01/24 (0.083 %) solution for nebulization shortness of breath or wheezing 30 days #360 mL budesonide-formoterol HFA 160 2 puff inhalation BID 30 days 06/01/24 mcg-4.5 mcg/actuation aerosol #10.2 grams inhaler roflumilast 500 mcg tablet 500 mcg PO DAILY 30 days #30 tabs 06/01/24 (Daliresp) magnesium oxide 400 mg (241.3 mg 400 mg PO BEDTIME 30 days #30 tabs 06/11/24 magnesium) tablet carbidopa 25 mg-levodopa 100 mg 1 tab PO BID 30 days #60 tabs 06/14/24 tablet imipramine HCl 50 mg tablet 100 mg (2 x 50 mg) PO BEDTIME #60 06/22/24 tabs [id number]-[id number]-[id number] 1 cap PO QIDACHS 30 days #120 caps 06/22/24 24,000-76,000-120,000 unit capsule,delayed rel (Creon) cetirizine 10 mg tablet 10 mg PO DAILY #90 tabs 07/15/24 doxycycline hyclate 100 mg capsule 100 mg PO BID 10 days #20 caps 08/06/24 Allergies Allergy/AdvReac Type Severity Reaction Status Date / Time morphine [MORPHINE] Allergy Intermediate NAUSEA, Verified 08/15/24 13:46 rash, redness Review of Systems 2 Constitutional: Constitutional: Denies headache(s) Eyes: Eyes: Denies blurry vision ENT: Denies headache(s) and Denies tinnitus Cardiovascular: Cardiovascular: Reports chest pain, Denies leg edema and Denies palpitations Respiratory: Respiratory: Denies cough Neurologic: Denies headache(s) Endocrine: Endocrine: Denies palpitations [facility] Past Medical History Medical History Atelectasis of left lung Chronic pain syndrome 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 Sacroiliitis Disc degeneration, lumbar OTILIO (obstructive sleep apnea) Back pain HTN (hypertension) Skin cancer (melanoma) GERD (gastroesophageal reflux disease) Depression OTILIO (obstructive sleep apnea) Kidney stones Pulmonary nodule Severe asthma Primary osteoarthritis involving multiple joints Pneumonia Chronic allergic rhinitis (~03/09/20) Asthma-COPD overlap syndrome Surgical History History of bronchoscopy History of cystoscopy History of laparoscopic appendectomy History of nasal surgery Hx of section Hx of tubal ligation Hx of colonoscopy History of esophagogastroduodenoscopy (EGD) Hx of knee surgery Family History Family History Father No problems noted. Mother No problems noted. Social History Social History Household Members: Children Housing: Apartment Do you presently have visiting nurse or other home services: Yes (private home health aid) Alcohol intake: never Patient Tobacco Use Status: Never used Tobacco Smoked in Last 30 Days: No e-Cigarette/Vaping Use: Never Used Second Hand Smoke Exposure: No Use of substances other than those prescribed or required for medical reasons: No Advance Directives: Yes Advance Directives on File: Yes Advance Directives Date on File: 10/13/23 Do you have a plan to hurt others: No Plan service: No Current occupational status: disabled Current occupation: rt handed Physical Exam ED Vital Signs: Vital Signs - 24 hr 08/15/24 13:43 08/15/24 14:04 08/15/24 14:30 Temperature 98.1 F Pulse Rate 101 H 79 Respiratory Rate 18 20 Blood Pressure 105/76 121/76 Pulse Oximetry 93 95 95 Oxygen Delivery Method Room Air Nasal Cannula Nasal Cannula Oxygen Flow Rate 2 2 08/15/24 15:30 08/15/24 16:26 Temperature Pulse Rate 78 Respiratory Rate 20 20 Blood Pressure 120/75 Pulse Oximetry 95 Oxygen Delivery Method Nasal Cannula Oxygen Flow Rate 2 BMI result Body Mass Index 35.5 Const General: cooperative and alert Eyes Other: Pupils are equal round and reactive to light. Slight right horizontal nystagmus, exacerbating patient's dizziness. Chest Other: tenderness along the left parasternal border without crepitus Resp Other: Lung sounds diminished throughout. No wheezes rales or rhonchi. Cardio Rate: regular rate Rhythm: regular rhythm GI Other: Abdomen is soft and nontender Extrem Other: no calf tenderness or pedal edema bilaterally Course Course Course Narrative: August 15, 2024, 2:25 p.m. Bedside cardiac echo no pericardial effusion grossly normal contractility further workup pending. 3:40 p.m. chest x-ray suggestive of possible pneumonia as well as pleural effusion. In comparison to previous, appears to be worsened. Initiate additional antibiotics. CTA of the chest pending. Results discussed with the patient and family. 4:00 p.m. the CTA results returned, no PE. Given that the patient has not had any improvement and is in fact worsening despite 9 days of antibiotics and medications, my recommendation at this time is the patient to be brought into the hospital for further evaluation and management. I have discussed with the patient and her family at the bedside, as they do not feel comfortable taking the patient home as she has not been doing well while at home. Patient may be considered for rehab placement versus hospital admission. Discussed with Dr. Puga. Discussed with and seen by Dr. Reed. Ambulatory oxygen saturation 90-92% on room air with mild work of breathing but no tachycardia. Medications Administered Generic Name Dose Route Start Last Admin Trade Name Freq PRN Reason Stop Dose Admin Enoxaparin Sodium 40 mg 08/15/24 18:00 08/15/24 17:18 Enoxaparin Sodium 40 Mg/0.4 Ml Syringe SUBCUT 40 mg Q24H URIAH Administration Ibuprofen 400 mg 08/15/24 17:00 08/15/24 17:06 Ibuprofen 400 Mg Tablet PO 400 mg TIDWM URIAH Administration Discontinued Medications Generic Name Dose Route Start Last Admin Trade Name Freq PRN Reason Stop Dose Admin Ceftriaxone Sodium 2 gm 08/15/24 15:57 08/15/24 16:26 Ceftriaxone Sodium 2 Gm Vial IVPUSH 08/15/24 15:58 2 gm ONCE ONE Administration Fentanyl 12.5 mcg 08/15/24 16:07 08/15/24 16:26 Fentanyl Citrate/Pf 100 Mcg/2 Ml Vial IVPUSH 08/15/24 16:08 12.5 mcg ONCE ONE Administration Protocol Azithromycin 500 mg/ Sodium 250 mls @ 125 mls/hr 08/15/24 15:57 08/15/24 18:45 Chloride IV 08/15/24 17:56 Infused ONCE ONE Infusion Medical Decision Making Medical Decision Making [facility] Narrative: 74-year-old female returns for evaluation of chest pain and shortness of breath. Patient and daughter report that symptoms have worsened despite medications. EKG is sinus changes. Check labs, imaging. Concern for pneumonia versus worsening pleural effusion. Lower suspicion for pneumothorax. Could be PE given the progressively worsening nature of symptoms. Heart failure also a consideration. Initial oxygen saturation 90-92% on room air, improved with 2 L of supplemental oxygen. Differential Diagnosis Differential Diagnoses: The differential diagnosis associated with the presentation includes PE pleural effusion pneumonia Viral syndrome CHF Admission/Observation Consideration of admission/observation: Escalation of care including admission/observation considered Lab Data [facility] Lab Attestation statement: I reviewed the patient's lab results. 08/15/24 14:04 08/15/24 14:04 Labs: Lab Results 08/15/24 08/15/24 Range/Units 14:04 14:13 WBC 10.0 (4.8-10.8) X10*3/uL RBC 4.74 (4.20-5.50) X10*6/uL Hgb 14.1 (12.0-16.0) g/dl Hct 41.5 (37.0-47.0) % MCV 87.6 (80.0-98.0) fL MCH 29.7 (27.0-33.0) pg MCHC 34.0 (31.0-35.0) g/dl RDW 12.6 (11.0-16.0) % Plt Count 334 D (160-400) X10*3/uL MPV 10.4 (9.4-12.3) fL Immature Gran % (Auto) 0.3 (0.0-0.4) % Neut % (Auto) 58.8 (45-73) % Lymph % (Auto) 17.2 L (20-40) % [place] % (Auto) 8.5 (2-11) % Eos % (Auto) 14.5 H (0-4) % Baso % (Auto) 0.7 (0-2) % Lymph # (Auto) 1.7 (1.2-4.9) X10*3/uL [place] # (Auto) 0.9 (0.1-1.2) X10*3/uL Eos # (Auto) 1.5 H (0.0-0.4) X10*3/uL Baso # (Auto) 0.1 (0.0-0.2) X10*3/uL Abs Immat Gran (auto) 0.03 (0.00-0.03) X10*3/uL Absolute Neuts (auto) 5.9 (2.0-8.3) x10*3/uL Absolute Nucleated RBC 0.000 (0.0-0.012) X10*3/uL Nucleated RBC % (auto) 0.0 (0.0-0.2) /100WBC Sodium 139 (135-145) mmol/L Potassium 3.8 (3.3-5.1) mmol/L Chloride 107 (96-108) mmol/L Carbon Dioxide 23 (22-29) mmol/L Anion Gap 13 (12-20) BUN 12 (9-16) mg/dL Creatinine 0.68 (0.5-1.4) mg/dL Estim Creat Clear Calc 76.5 Estimated GFR > 60 Random Glucose 131 H (60-115) mg/dL Lactic Acid 1.6 (0.5-2.0) mmol/L Calcium 9.4 (8.4-10.2) mg/dL Total Bilirubin 1.5 H (0.0-1.0) mg/dL AST 17 (5-31) U/L ALT 11 (0-31) U/L Alkaline Phosphatase 81 (39-117) U/L Troponin I High Sens < 2.7 (<3.5-17.0) ng/L B-Natriuretic Peptide < 10 (<100) pg/mL Total Protein 7.1 (6.5-8.0) g/dL Albumin 3.8 (3.5-5.0) g/dL Influenza Type A (PCR) NEGATIVE (Negative) Influenza Type B (PCR) NEGATIVE (Negative) RSV RNA Qual (PCR) NEGATIVE (Negative) SARS-CoV-2 RNA (RT-PCR) NEGATIVE (Negative) Independent Interpretation I performed an independent interpretation of an: EKG and Plain X-Ray ( Preliminary x-ray review, appears to be worsening of left pleural effusion) Independent Historian Clinical information obtained from an independent historian. History obtained from or confirmed by: Other ( daughter) External Record Review External record reviewed: Inpatient record Chronic Conditions Patient?s care impacted by: Hypertension Discharge Plan Discharge Clinical Impression: Chest pain Pneumonia Qualifiers: Pneumonia type: due to unspecified organism Laterality: left Lung location: l ower lobe of lung Qualified Code(s): J18.9 - Pneumonia, unspecified organism Patient Disposition: Admitted As Inpatient
[2024-08-15 14:08] LABS: MANUAL DIFF FLAG NO
[2024-08-15 14:21] LABS: Alanine Aminotransferase 11 U/L (0-31); Albumin Level 3.8 g/dL (3.5-5.0); Alkaline Phosphatase 81 U/L (39-117); Anion Gap 13 (12-20); Aspartate Amino Transferase 17 U/L (5-31); Basophils Absolute Auto 0.1 X10*3/uL (0.0-0.2); Basophils Percent Auto 0.7 % (0-2); Bilirubin Total 1.5 mg/dL (0.0-1.0); Blood Urea Nitrogen 12 mg/dL (9-16); Calcium 9.4 mg/dL (8.4-10.2); Carbon Dioxide 23 mmol/L (22-29); Chloride 107 mmol/L (96-108); Creatinine Clr Calc Pharmacy 76.5; Eosinophils Absolute Auto 1.5 X10*3/uL (0.0-0.4); Eosinophils Percent Auto 14.5 % (0-4); Estimated Glomerular Filt Rate > 60; Glucose Random 131 mg/dL (60-115); Hematocrit 41.5 % (37.0-47.0); Hemoglobin 14.1 g/dl (12.0-16.0); Imm Gran Abs Auto 0.03 X10*3/uL (0.00-0.03); Imm Gran Pct Auto 0.3 % (0.0-0.4); Lymphocytes Absolute Auto 1.7 X10*3/uL (1.2-4.9); Lymphocytes Percent Auto 17.2 % (20-40); Mean Corpuscular Hemoglobin 29.7 pg (27.0-33.0); Mean Corpuscular Volume 87.6 fL (80.0-98.0); Mean Platelet Volume 10.4 fL (9.4-12.3); Monocytes Absolute Auto 0.9 X10*3/uL (0.1-1.2); Monocytes Percent Auto 8.5 % (2-11); Neutrophils Absolute Auto 5.9 x10*3/uL (2.0-8.3); Neutrophils Percent Auto 58.8 % (45-73); Platelet Count 334 X10*3/uL (160-400); Potassium 3.8 mmol/L (3.3-5.1); Red Blood Count 4.74 X10*6/uL (4.20-5.50); Red Cell Distribution Width 12.6 % (11.0-16.0); Sodium 139 mmol/L (135-145); Total Protein 7.1 g/dL (6.5-8.0)
[2024-08-15 14:29] LABS: Troponin-I High Sensitivity < 2.7 ng/L (<3.5-17.0)
--- OUTSIDE RECORDS SUMMARY | 2024-08-15 14:29 | XMS_ITS | Clinical Summary ---
Author Organization [employer] Address [address] [facility] [address] [place] [address] Care Team Providers Care Department Of Natural [employer] Officer Name Role Phone Mary Flores MD Primary Care Provider Allergies Active Allergy Reactions Criticality Noted Date Comments Morphine Rash Low 09/29/2019 Medications albuterol (2.5 MG/3ML) 0.083% nebulizer solution INHALE 1 AMPULE USING A NEBULIZER EVERY 4 HOURS NEEDED FOR WHEEZING OR SHORTNESS OF BREATH 022 Active Linzess 290 MCG capsule TAKE 1 CAPSULE BY MOUTH EVERY MORNING 022 Active Daliresp 500 MCG tablet TAKE 1 TABLET BY MOUTH EVERY DAY 022 Active Blood Pressure kit Use as directed for blood pressure 021 Active betamethasone dipropionate (Diprolene) 0.05 % ointment APPLY TO THE AFFECTED AREA(S) OF HANDS DAILY DIRECTED FOR ECZEMA 15 g 1 023 Active alendronate (Fosamax) 70 MG tablet FARRAH FERNY TABLETA SEMANAL. 12 tablet 3 024 Active Spiriva Respimat 2.5 MCG/ACT inhaler Inhale 2 puffs Once per day. 024 Active imipramine (Tofranil) 50 MG tablet TAKE 2 TABLETS BY MOUTH EVERY DAY AT BEDTIME Active lidocaine (Lidoderm) 5 % patchIndications: Trapezius muscle spasm Apply 1 patch topically Once per day. Remove & discard patch within 12 hours or as directed by MD. 30 patch 3 024 Active atorvastatin (Lipitor) 10 MG tabletIndications :Other [...] needed for wheezing. 75 mL 2 Active Bisacodyl EC 5 MG EC tablet TAKE 1 TABLET BY MOUTH EVERY DAY IN THE MORNING AND TAKE 2 TABLETS BY MOUTH EVERY DAY AT BEDTIME Active Blood Glucose Monitoring Suppl (FreeStyle Gorham Lite) w/Device kit Active cetirizine (ZyrTEC) 10 MG tablet Take 1 tablet by mouth Once per day. Active docusate sodium (Colace) 100 MG capsule Take 1 capsule by mouth 2 times daily. Active budesonide-formot sunny (Symbicort) 160-4.5 MCG/ACT inhaler Inhale 2 puffs every 12 (twelve) hours. Rinse mouth with water and expectorate after each dose to prevent oral/esophageal candidiasis or fungal infection. 019 Active FreeStyle lancets Active omeprazole (PriLOSEC) [address] capsule Take 1 capsule by mouth Once per day. Active metFORMIN (Glucophage) 500 MG tablet TAKE 1 TABLET BY MOUTH EVERY DAY IN MORNING 90 tablet 3 Active carbidopa-levodop a (Sinemet) 25-100 MG tablet Take 1 tablet by mouth 2 times daily. Active dilTIAZem CD (Cardizem CD) 300 MG 24 hr capsule Take 1 capsule by mouth Once per day. Active ibuprofen 800 MG tablet Take 1 tablet (800 mg) by mouth every 6 (six) hours if needed for mild pain. 90 tablet 025 2024 Active aspirin 81 MG chewable tablet Chew 1 tablet (81 mg) Once per day. 90 tablet 3 025 2025 Active lisinopril 40 MG tablet Take 1 tablet (40 mg) by mouth Once per day. 90 tablet 3 Active hydroCHLOROthiazi de 12.5 MG tablet Take 1 tablet (12.5 mg) by mouth Once per day. 90 tablet 3 025 2025 Active ProAir RespiClick 108 (90 Base) MCG/ACT aerosol powder Inhale 2 puffs Every 4-6 hours as needed (SOB or wheezing). Active doxycycline (Vibramycin) 100 MG capsule Take 1 capsule by mouth 2 times daily. 025 2024 Active Dupixent 300 MG/2ML solution auto-injector Inject 2 mL under the skin every 14 (fourteen) days. Active amoxicillin-clavu lanate (Augmentin) 875-125 MG tabletIndications :Pneumonia due to infectious organism, unspecified laterality, unspecified part of lung Take 1 tablet by mouth 2 times daily for 10 days. 20 tablet 025 2024 Active albuterol 108 (90 Base) MCG/ACT inhaler INHALE 2 PUFFS BY MOUTH EVERY 4 TO 6 HOURS NEEDED 022 2024 Discontinued(M ed list cleanup (will not trigger notification to Pharmacy)) GaviLyte-G 236 g solution 2024 Discontinued(M ed list cleanup (will not trigger notification to Pharmacy)) dupilumab (Dupixent) 300 MG/2ML solution prefilled syringe injection Inject 2 Syringes (600 mg) under the skin 1 (one) time for 1 dose. 4 mL 025 2024 Active Problems Problem Noted Date Diagnosed Date Pneumonia due to infectious organism 08/11/2024 Assessment & Plan (08/11/2024 2:39 PM EDT): Patient looks clinically stable, respiratory rate and saturation are within normal limits but in light patient is telling me she still has shortness of breath fatigue, pleuritic pain and most of all fever every night I decided to add Augmentin 875 mg - 125 mg twice daily and continue also with the doxycycline, I also decided to repeat the CT of the chest to compare with the one done at the hospital regarding the atelectasis and pleural effusion I extensively counseled patient regarding ED precautions, if she starts feeling worse or symptoms are persistent I advised for her to go to the emergency room OJ I arranged for patient to have a follow-up appointment with PCP in about 2 weeks for reevaluation Class 2 severe obesity with serious comorbidity and body mass index (BMI) of 35.0 to 35.9 in adult 07/19/2024 Obesity, morbid 02/24/2024 Assessment & Plan (02/24/2024 [...] and urge incontinence 08/10/2023 Assessment & Plan (07/19/2024 10:11 AM EDT): Resend pampers, wipes, bedpads prescriptions Assessment & Plan (08/10/2023 4:44 PM EDT): [...] witho ut status migrainosus, not intractable 07/24/2023 Metabolic syndrome X 07/24/2023 Assessment & [...] lumbar intervertebral disc 03/06/2021 Assessment & Plan (07/19/2024 10:11 AM EDT): Shower chair ordered for safety in the shower Assessment & Plan (02/24/2024 12:26 PM EDT): [...] 10/26/2018 Essential hypertension 07/27/2018 Assessment & Plan (07/19/2024 10:10 AM EDT): Reports BP > 140/90 at home after all BP meds held in the hospital for RSV pneumonia Restarted Lisinopril 40mg daily, BP still consistently > 140/90, add hydrochlorothiazide 12.5mg BMP: Cr 0.75, eGFR >60 Lipid Panel: [...] consulting health care provider Assessment & Plan (02/24/2024 12:30 PM EDT): [...] goal currently Will discuss at followup visit Asthma 01/25/2014 Assessment & Plan (07/24/2023 9:39 AM EDT): On Breo inhaler, Daliresp, and JOHANA prn Needs new nebulizer machine, last one stopped working Resolved Problems Problem Noted Date Diagnosed Date Resolved Date Type 2 diabetes mellitus wit h other specified complication, without long-term current use of insulin 07/19/2024 07/19/2024 Obesity (BMI 30-39.9) 07/24/20232024 Pneumonia 06/09/2018 07/19/2024 Encounters Date Type Department Care Team Description 08/11/2024 9:30 AM EDT Office Visit [address] MD Pneumonia due to infectious organism, unspecified laterality, unspecified part of lung (Primary Dx) 08/11/2024 Travel 08/09/[address] [address] Mary Flores MD ER Follow-up 08/06/2024 Orders Only GENERIC EXTERNAL DATA DEPARTMENT Provider, Generic External Data 07/23/[address] [address] Mary Flores MD 07/12/2024 3:30 PM EST Office Visit [address] [address] Mary Flores MD Chronic obstructive pulmonary disease, unspecified COPD type (CMS/HCC) (Primary Dx); Dietary counseling; Exercise counseling; Class 2 severe obesity with serious comorbidity and body mass index (BMI) of 35.0 to 35.9 in adult, unspecified obesity type (CMS/HCC); Depression, recurrent (CMS/[facility]); Mixed stress and urge incontinence; Irritable bowel syndrome with constipation; Enuresis, nocturnal only; Essential hypertension; Obstructive sleep apnea syndrome; Herniated lumbar intervertebral disc 07/12/2024 Travel 07/08/2024 Telephone [facility] [address] [place] [address] Mary Flores MD Durable Medical Equipment 07/06/[address] [facility] [address] [place], [place] [phone] Mary Flores MD FYI 07/05/2024 Orders Only GENERIC EXTERNAL DATA DEPARTMENT Provider, Generic External Data 06/14/[address] [facility] [address] [place], [place] [phone] Mary Flores MD 05/27/[address] [facility] [address] [place], [place] [phone] Mary Flores MD Durable Medical Equipment from Last 3 Months Immunizations Name Administration [...] Packs/Day Years Used Date Smoking Tobacco: Never Passive Smoke Exposure: Never Smokeless Tobacco: Never Tobacco Cessation:Counseling Given: [...] Sign Reading Time Taken Comments Blood Pressure 142/88 08/11/2024 2:32 PM EDT Pulse 70 08/11/2024 9:49 AM EDT Temperature 36.8 ??C (98.2 ??F) 08/11/2024 9:49 AM ED T Respiratory Rate 20 08/11/2024 9:49 AM EDT Oxygen Saturation 98% 08/11/2024 9:49 AM EDT Inhaled Oxygen Concentration - - Weight 93.1 kg (205 lb 3.2 oz) 08/11/2024 9:49 A M EDT Height 160 cm (5' 3 ) 08/11/2024 9:49 AM EDT Body Mass Index 36.35 08/11/2024 9:49 AM EDT Plan of Treatment Upcoming Encounters Date Type Department Care Team (Late st Contact Info) Description 08/25/2024 2:00 PM EDT Office Visit [facility] [address] [place] [address] Mary Flores MD [address] [place] [address] Health Maintenance Due Date Last Done Comments [...] 07/2021, 11/09/2020 Depression Screening 11/09/2024 11/10/2023, 11/10/19 24 Diabetes: Foot Exam 11/09/2024 11/10/2023 Tobacco Screening 08/11/2025 08/11/2024 Eye Exam 04/30/2026 04/30/2024, 12, 04/30/2024, Additional [...] Procedure Name Priority Date/Time Associated Diagnosis Comments HIGH SENSITIVITY TROPONIN I Routine 08/06/2024 10:[address] CHEST W CONTRAST Routine 08/06/2024 9 :08 AM EDT XR CHEST 1 VIEW Routine 08/06/2024 7:57 AM EDT SARS COV2/INFLUENZA A/B AND RSV RNA QL NAAT Routine 08/06/2024 7:38 AM EDT HIGH SENSITIVITY TROPONIN I Routine 08/06/2024 6:32 AM EDT COMPREHENSIVE METABOLIC PANEL Routine 08/06/2024 6:32 AM EDT CBC WITH AUTO DIFFERENTIAL Routine 08/06/2024 6:32 AM EDT MR CERVICAL SPINE WO CONTRAST Routine 07/09/2024 7:40 AM EST IMMUNOGLOBULIN E Routine 07/05/2024 10:4 [...] Recently Relevant to Health Maintenance Results * High Sensitivity Troponin I (08/06/2024 10:20 AM EDT) Only the most recent of2 resultswithin the time period is included. TROPONIN I HIGH SENSITIVITY <2.7 <3.5 - 17.0 ng/L [facility] Comment:The Mariscal high sens itivity Troponin-I results should beused in conjunction with other diagnostic information suchas ECG, clinical observations and information, and patientsymptoms to aid in the diagnosis of AR. 08/06/2024 10:2 0 AM EDT 08/06/2024 10:23 AM EDT us Generic External Data Provider LAB BLOOD ORDERAB LES Final Result [facility] [address] [place] [address] [phone] * CT Chest w/ Contrast (08/06/2024 9:08 AM EDT) Anatomical Region Laterality Modality Body, Chest Computed Tomogra phy 08/06/2024 9:08 AM EDT Narrative 08/06/2024 9:42 AM EDT ? [facility] ?[address] ?[place] [address] ? CT Scan Report ? Signed ? Patient: Zamora Ordonez,Margarita I ?MR#: ?? [id number] ? : 1950 ?Acct:[id number] ? Age/Sex: 74 / F ?ADM Date: 08/06/24 ? Loc: HO.ED ? Attending Dr: ? Ordering Physician: Bettina Mccloud ?? Date of Service: 08/06/24 ?? Procedure(s): CT chest w IV con ?? Accession Number(s): [id number] ? cc: Mary Flores; Bettina Mccloud ? Report Number: ?? [id number]: Total DLP = ??250.00 mGy-cm ?? EXAMINATION: CT CHEST WITH IV CONTRAST ? INDICATION: sob ? pna on xray ? COMPARISON: Correlation is made with an AP portable view of the chest ?? performed earlier in the day. ? TECHNIQUE: Helical CT scan of the chest was performed following ?? administration of intravenous contrast. ??Coronal and sagittal ?? reformatted images were generated and reviewed. ? This CT exam was performed with one or more of the following dose ?? reduction techniques: automated exposure control, adjustment of the mA ?? and/or kV according to patient size, use of iterative reconstruction ?? technique. ? DLP: 250 mGy-cm ? CHEST: ? THYROID: The thyroid is unremarkable. ? LUNGS: There is subsegmental atelectasis at the left lung base. The ?? right lung is clear. ? MEDIASTINUM: There is no mediastinal lymphadenopathy. ? DAYLIN: There is no hilar lymphadenopathy. ? CARDIOVASCULATURE: The heart is normal in size. ??There is no ?? pericardial effusion. ??The thoracic aorta is normal in caliber. ? DEGREE OF CORONARY CALCIFICATION: ??none ? PLEURA: ??There is a small left pleural effusion. There is no right ?? pleural effusion. ??No pneumothorax. ? MAIN AIRWAYS: The mainstem bronchi and proximal branches are patent. ? AXILLA: There is no axillary lymphadenopathy. ? BONES AND SOFT TISSUES: There is mild degenerative disc disease of the ?? spine. There is a small hiatal hernia. ? UPPER ABDOMEN: The visualized portions of the liver, spleen, and ?? adrenals are unremarkable. ? CT/CT chest w IV con ?? IMPRESSION: ?? Small left pleural effusion with adjacent subsegmental atelectasis. ? Electronically signed by: ??Alfred Stewart MD ??08/06/2024 09:40 AM EDT ?? RP ? Dictated By: ?Alfred Stewart MD ? Signed By: ?<Electronically signed by Alfred Stewart MD in OV> ?08/06/24 0940 ? DD/ 0908 ? TD/TT: 08/06/2428 ? Medical Coding Auditor: ? Procedure Note [place], Image - 08/06/[address] [address] [address] Scan Report Signed Patient: Margarita Flores [facility]#: [id number] : 9Acct:[id number] Age/Sex: 74 / FADM Date: 08/06/24 Loc: HO.ED Attending Dr: Ordering Physician: Bettina Mccloud Date of Service: 08/06/24 Procedure(s): CT chest w IV con Accession Number(s): [id number] cc: Mary Flores; Bettina Mccloud Report Number: [id number]: Total DLP = 250.00 mGy-cm EXAMINATION: CT CHEST WITH IV CONTRAST INDICATION: sob ? pna on xray COMPARISON: Correlation is made with an AP portable view of the chest performed earlier in the day. TECHNIQUE: Helical CT scan of the chest was performed following administration of intravenous contrast. Coronal and sagittal reformatted images were generated and reviewed. This CT exam was performed with one or more of the following dose reduction techniques: automated exposure control, adjustment of the mA and/or kV according to patient size, use of iterative reconstruction technique. DLP: 250 mGy-cm CHEST: THYROID: The thyroid is unremarkable. LUNGS: There is subsegmental atelectasis at the left lung base. The right lung is clear. MEDIASTINUM: There is no mediastinal lymphadenopathy. DAYLIN: There is no hilar lymphadenopathy. CARDIOVASCULATURE: The heart is normal in size. There is no pericardial effusion. The thoracic aorta is normal in caliber. DEGREE OF CORONARY CALCIFICATION: none PLEURA: There is a small left pleural effusion. There is no right pleural effusion. No pneumothorax. MAIN AIRWAYS: The mainstem bronchi and proximal branches are patent. AXILLA: There is no axillary lymphadenopathy. BONES AND SOFT TISSUES: There is mild degenerative disc disease of the spine. There is a small hiatal hernia. UPPER ABDOMEN: The visualized portions of the liver, spleen, and adrenals are unremarkable. CT/CT chest w IV con IMPRESSION: Small left pleural effusion with adjacent subsegmental atelectasis. Electronically signed by: Alfred Stewart MD 08/06/2024 09:40 AM EDT Dictated By: Alfred Stewart MD Signed By: <Electronically signed by Alfred Stewart MD in OV> 08/06/2440 DD/ 0908 TD/TT: 08/06/24927 Medical Coding Auditor: us [facility] External Provider IMG CT PROCEDURES Final Result * XR Chest 1 View (08/06/2024 7:57 AM EDT) Anatomical Region Laterality Modality Chest Radiographic Jessica ging 08/06/2024 7:57 AM EDT Narrative 08/06/2024 8:27 AM EDT ? [facility] ?[address] ?[place], [place] [address] ?XRay Report ? Signed ? Patient: Zamora Margarita Ordonez I ?MR#: ?? [id number] ? : 1950 ?Acct:[id number] ? Age/Sex: 74 / F ?ADM Date: 08/06/24 ? Loc: HO.ED ? Attending Dr: ? Ordering Physician: Bettina Mccloud ?? Date of Service: 08/06/24 ?? Procedure(s): XR chest 1V ?? Accession Number(s): [id number] ? cc: Mary Flores; Bettina Mccloud ? EXAMINATION: ??XR CHEST 1 VIEW ? HISTORY: sob ? COMPARISON: Comparison is made with the prior examination dated ?? 02/04/2024. ? FINDINGS: ??A single AP portable view of the chest performed at 8:17 AM ?? is submitted. There is opacification of the left lung base which may ?? represent atelectasis, pneumonia, or pleural fluid. The right lung is ?? clear. ??There is no pneumothorax or pulmonary vascular congestion. ??The ?? heart is normal in size. The aorta is calcified. ??There is mild ?? degenerative disc disease of the spine. ? XR/XR chest 1V ?? IMPRESSION: ?? Opacification of the left lung base which may represent atelectasis, ?? pneumonia, or pleural fluid. ? Electronically signed by: ??Alfred Stewart MD ??08/06/2024 08:24 AM EDT ?? RP ? Dictated By: ?Alfred Stewart MD ? Signed By: ?<Electronically signed by Alfred Stewart MD in OV> ?08/06/24 08 ? DD/ 0757 ? TD/TT: 08/06/24 0820 ? Medical Coding Auditor: ? Procedure Note Donotuseinterpreter, Image - 08/06/[address] [address] XRay Report Signed Patient: Margarita Flores [facility]#: [id number] : 9Acct:[id number] Age/Sex: 74 / FADM Date: 08/06/24 Loc: .ED Attending Dr: Ordering Physician: Bettina Mccloud Date of Service: 08/06/24 Procedure(s): XR chest 1V Accession Number(s): [id number] cc: Mary Flores; Bettina Mccloud EXAMINATION: XR CHEST 1 VIEW HISTORY: sob COMPARISON: Comparison is made with the prior examination dated 02/04/2024. FINDINGS: A single AP portable view of the chest performed at 8:17 AM is submitted. There is opacification of the left lung base which may represent atelectasis, pneumonia, or pleural fluid. The right lung is clear. There is no pneumothorax or pulmonary vascular congestion. The heart is normal in size. The aorta is calcified. There is mild degenerative disc disease of the spine. XR/XR chest 1V IMPRESSION: Opacification of the left lung base which may represent atelectasis, pneumonia, or pleural fluid. Electronically signed by: Alfred Stewart MD 08/06/2024 08:24 AM EDT Dictated By: Alfred Stewart MD Signed By: <Electronically signed by Alfred Stewart MD in OV> 08/06/24 0824 DD/ 0757 TD/TT: 08/06/24 0820 Medical Coding Auditor: [facility] External Provider IMG XR PROCEDURES Final Result * SARS-CoV-2 RNA, Influenza A/B, and RSV RNA, Ql NAAT (08/06/2024 7:38 AM EDT) Influenza A PCR NEGATIVE Negative [facility] Influenza B PCR NEGATIVE Negative [facility] Resp Syncy Virus RNA Qual PCR NEGATIVE Negative [facility] SARS COV2 PCR NEGATIVE Negative [facility] Comment:All test results mus t be correlated with clinical findings.Negative results do not preclude SARS-CoV2, influenza Avirus, influenza B virus and/or RSV infectionand should not be used as the sole basis for treatment orother patient management decisions. Negative results must becombined with clinical observations, patient history, andepidemiological information.This test has not been evaluated for monitoring treatment ofinfection.This test has been authorized by the FDA under an EmergencyUse Authorization (EUA) for use by authorized laboratories.Testing performed on the [facility] Gene[facility]pert utilizingreal-time RT-PCR.All SARS CoV2 and positive influenza A/B results arereported to [facility]. 08/06/2024 7:38 AM EDT 08/06/2024 7:42 AM EDT us Generic External Data Provider LAB MICROBIOLOGY - GENERAL ORDERABLES Final Result [facility] [address] [place] [address] [phone] * (ABNORMAL) CBC auto differential (08/06/2024 6:32 AM EDT) Only the most recent of2 resultswithin the time period is included. White Blood Count 9.5 4.8 - 10.8 X10*3/uL [facility] Red Blood Count 4.54 4.20 - 5.50 X10*6/uL [facility] Hemoglobin 13.6 12.0 - 16.0 g/dl [facility] Hematocrit 39.9 37.0 - 47.0 % [facility] Mean Corpuscular Volume 87.9 80.0 - 98.0 fL [facility] Mean Corpuscular Hemoglobin 30.0 27.0 - 33.0 pg [facility] Mean Corpuscular HGB Conc 34.1 31.0 - 35.0 g/dl [facility] Red Cell Distribution Width 12.9 11.0 - 16.0 % [facility] Platelet Count 267 160 - 400 X10*3/uL [facility] Mean Platelet Volume 10.7 9.4 - 12.3 fL [facility] Neutrophils Percent Auto 65.8 45 - 73 % [facility] Imm Gran Pct Auto 0.3 0.0 - 0.4 % [facility] Lymphocytes Percent Auto 16.2(L) 20 - 40 % [facility] Monocytes Percent Auto 9.3 2 - 11 % [facility] Eosinophils Percent Auto 7.7(H) 0 - 4 % [facility] Basophils Percent Auto 0.7 0 - 2 % [facility] NRBC Pct Auto 0.0 0.0 - 0.2 /100WBC [facility] Neutrophils Absolute Auto 6.3 2.0 - 8.3 x10*3/uL [facility] Imm Gran Abs Auto 0.03 0.00 - 0.03 X10*3/uL [facility] Lymphocytes Absolute Auto 1.5 1.2 - 4.9 X10*3/uL [facility] Monocytes Absolute Auto 0.9 0.1 - 1.2 X10*3/uL [facility] Eosinophils Absolute Auto 0.7(H) 0.0 - 0.4 X10*3/uL [facility] Basophils Absolute Auto 0.1 0.0 - 0.2 X10*3/uL [facility] NRBC Abs Auto 0.000 0.0 - 0.012 X10*3/uL [facility] 08/06/2024 6:32 AM EDT 08/06/2024 6:35 AM EDT us Generic External Data Provider LAB BLOOD ORDERAB LES Final Result [facility] [address] [place] [address] [phone] * (ABNORMAL) Comprehensive Metabolic Panel (08/06/2024 6:32 AM EDT) Pathologist [facility] Sodium 138 135 - 145 mmol/L [facility] Potassium 4.3 3.3 - 5.1 mmol/L [facility] Chloride 108 96 - 108 mmol/L [facility] Carbon Dioxide 24 22 - 29 mmol/L [facility] Anion Gap 10(L) 12 - 20 [facility] Urea Nitrogen (BUN) 14 9 - 16 mg/dL [facility] Creatinine, Serum 0.67 0.5 - 1.4 mg/dL [facility] Creatinine Clr Calc Pharmacy 77.7 [facility] Comment:Provided height and weight: 160.02 cm,91 kg.eGFR (calculated from the MDRD study equation) and eCrCl(calculated from the Cockcroft-Gault equation) are based ondifferent parameters and may not yield comparable results.If eCrCl result is absurd, please check patient'sheight/weight. Estimated Glomerular Filt Rate >60 [facility] Comment:Chronic Kidney Disea se: Estimated GFR < 60 mL/min/1.44k9Xalvar Kidney Disease: Estimated GFR < 15 mL/min/1.73m2 Glucose 140(H) 60 - 115 mg/dL [facility] Calcium 9.5 8.4 - 10.2 mg/dL [facility] Bilirubin, Total 1.4(H) 0.0 - 1.0 mg/dL [facility] Aspartate Amino Transferase 23 5 - 31 U/L [facility] Alanine Aminotransferase 16 0 - 31 U/L [facility] Total Protein 7.0 6.5 - 8.0 g/dL [facility] Albumin Level 3.9 3.5 - 5.0 g/dL [facility] Alkaline Phosphatase 83 39 - 117 U/L [facility] 08/06/2024 6:32 AM EDT 08/06/2024 6:35 AM EDT us Generic External Data Provider LAB BLOOD ORDERAB LES Final Result [facility] [address] [place] [address] [phone] * MR Cervical Spine w/o Contrast (07/09/2024 7:40 AM EST) Anatomical Region Laterality Modality Spine, C-spine Magnetic Resonan ce 07/09/2024 7:40 AM EST Narrative 07/09/2024 8:45 AM EST ? [facility] ?[address] ?[place] [address] ? Magnetic Resonance Report ? Signed ? Patient: Zamora OrdonezMargarita mathews I ?MR#: ?? [id number] ? : 1950 ?Acct:[id number] ? Age/Sex: 74 / F ?ADM Date: 07/09/24 ? Loc: HO.MRI ? Attending Dr: France BUSTAMANTE ? Ordering Physician: France Verduzco ?? Date of Service: 07/09/24 ?? Procedure(s): MR cervical spine wo con ?? Accession Number(s): [id number] ? cc: France Verduzco; Mary Flores ? EXAMINATION: ?? MR CERVICAL SPINE WITHOUT CONTRAST ? CLINICAL INFORMATION: ?? Tremors. ? COMPARISON: ?? None available. ? TECHNIQUE: ?? MRI of the cervical spine was obtained using routine sequences without ?? contrast. ? FINDINGS: ?? Craniocervical junction is intact. ?? No bone marrow STIR signal abnormality. ?? Multilevel disc desiccation more conspicuous at C4-5 and C5-6 level. ?? There is grade 1 anterolisthesis C7-T1. ?? There is buckling of the dorsal aspect of the thecal sac at C6-7 and to ?? a lesser extent C5-6 and C4-5 level related to hypertrophy of the ?? ligamentum flavum. ?? The cervical spinal cord signal is normal. ? C2-3: ?? No disc herniation. No neuroforamina stenosis. ? C3-4: ?? Central disc osteophyte complex formation. Facet joint hypertrophy. No ?? compression upon neural elements. ? C4-5: ?? Central disc osteophyte complex formation. No cord compression. ?? Bilateral facet joint hypertrophy resulting in neuroforamina narrowing. ? C5-6: ?? Central disc osteophyte complex formation resulting in ventral ?? indentation to the thecal sac. Hypertrophy of the ligamentum flavum and ?? the facet joints. Bilateral neuroforamina narrowing. ? C6-7: ?? Central disc osteophyte complex formation. No cord compression. Left ?? facet joint hypertrophy. Hypertrophy of ligamentum flavum. Left ?? neuroforamina narrowing. Right perineural cyst. ?? C7-T1: ?? No disc herniation. No neuroforamina stenosis. ? Flow-void signal within the main vessels is normal. Codominant ?? vertebral arteries. ?? Prominent palatine tonsils bilaterally. ? MR/MR cervical spine wo con ?? IMPRESSION: ?? Multilevel cervical spondylosis more conspicuous at C5-6 without cord ?? compression, cord edema and or myelopathy. ? Electronically signed by: ??Gume Cox MD ??07/09/2024 08:42 AM ?? EST ? Dictated By: ?Gume Schuster MD ? Signed By: ?<Electronically signed by Gume Riddle MD in OV> ? 07/09/24 0842 ? DD/ 0740 ? TD/TT: 07/09/24 0805 ? Medical Coding Auditor: ? Procedure Note [facility] - 07/09/2024 [place] [address] Magnetic Resonance Report Signed Patient: Margarita Flores [facility]#: [id number] : 9Acct:[id number] Age/Sex: 74 / FADM Date: 07/09/24 Loc: HO.MRI Attending Dr: France BUSTAMANTE Ordering Physician: France Verduzco Date of Service: 07/09/24 Procedure(s): MR cervical spine wo con Accession Number(s): [id number] cc: France Verduzco; Mary Flores EXAMINATION: MR CERVICAL SPINE WITHOUT CONTRAST CLINICAL INFORMATION: Tremors. COMPARISON: None available. TECHNIQUE: MRI of the cervical spine was obtained using routine sequences without contrast. FINDINGS: Craniocervical junction is intact. No bone marrow STIR signal abnormality. Multilevel disc desiccation more conspicuous at C4-5 and C5-6 level. There is grade 1 anterolisthesis C7-T1. There is buckling of the dorsal aspect of the thecal sac at C6-7 and to a lesser extent C5-6 and C4-5 level related to hypertrophy of the ligamentum flavum. The cervical spinal cord signal is normal. C2-3: No disc herniation. No neuroforamina stenosis. C3-4: Central disc osteophyte complex formation. Facet joint hypertrophy. No compression upon neural elements. C4-5: Central disc osteophyte complex formation. No cord compression. Bilateral facet joint hypertrophy resulting in neuroforamina narrowing. C5-6: Central disc osteophyte complex formation resulting in ventral indentation to the thecal sac. Hypertrophy of the ligamentum flavum and the facet joints. Bilateral neuroforamina narrowing. C6-7: Central disc osteophyte complex formation. No cord compression. Left facet joint hypertrophy. Hypertrophy of ligamentum flavum. Left neuroforamina narrowing. Right perineural cyst. C7-T1: No disc herniation. No neuroforamina stenosis. Flow-void signal within the main vessels is normal. Codominant vertebral arteries. Prominent palatine tonsils bilaterally. MR/MR cervical spine wo con IMPRESSION: Multilevel cervical spondylosis more conspicuous at C5-6 without cord compression, cord edema and or myelopathy. Electronically signed by: Gume Cox MD 07/09/2024 08:42 AM EST Dictated By: Gume Schuster MD Signed By: <Electronically signed by Gume Riddle MDin OV> 07/09/24 0842 DD/ 0740 TD/TT: 07/09/24 0805 Medical Coding Auditor: us [facility] External Provider IMG MRI PROCEDURES Final Result * Sed Rate by Modified [place] (07/05/2024 10:48 AM EST) Erythrocyte Sedimentation Rate 8 0 - 20 MM/HR [facility] Comment:Patients with polycy themia and many hemoglobin abnormalitiesmay have depressed sed rates whereas patients with anemiamay have elevated sed rates. 07/05/2024 10:4 8 AM EST 07/05/2024 10:48 AM EST us Generic External Data Provider LAB BLOOD ORDERAB LES Final Result Performing Organization Address [facility] Co de Phone Number [facility] [address] [place] [phone] * (ABNORMAL) Immunoglobulins, Quantitative, IgA, IgG, IgM (07/05/2024 10:48 AM EST) IMMUNOGLOBULIN G 1176 600 - 1540 mg/dL [facility] IMMUNOGLOBULIN A 392(A) 70 - 320 mg/dL [facility] Immunoglobulin M 80 50 - 300 mg/dL [facility] Comment:THIS TEST WAS PERFOR MED AT:[employer] [place] [phone] SWENSON MD 07/05/2024 10:4 8 AM EST 07/05/2024 10:48 AM EST Generic External Data Provider LAB BLOOD ORDERAB LES Final Result Performing Organization Address [facility] de Phone Number [facility] [address] [place] [phone] * Immunoglobulin E (07/05/2024 10:48 AM EST) Pathologist [facility] Immunoglobulin E 15 <FM=425 kU/L [facility] Comment:THIS TEST WAS PERFOR MED AT:[employer] [place] [phone] SWENSON MD 07/05/2024 10:4 8 AM EST 07/05/2024 10:48 AM EST Generic External Data Provider LAB BLOOD ORDERAB LES Final Result Performing Organization Address [facility] de Phone Number [facility] [address] [place] [phone] * (ABNORMAL) Basic Metabolic Panel (07/05/2024 10:48 AM EST) Sodium 140 135 - 145 mmol/L [facility] Potassium 4.1 3.3 - 5.1 mmol/L [facility] Chloride 107 96 - 108 mmol/L [facility] Carbon Dioxide 27 22 - 29 mmol/L [facility] Anion Gap 10(L) 12 - 20 [facility] Urea Nitrogen (BUN) 13 9 - 16 mg/dL [facility] Creatinine, Serum 0.64 0.5 - 1.4 mg/dL [facility] Estimated Glomerular Filt Rate >60 [facility] Comment:Chronic Kidney Disea se: Estimated GFR < 60 mL/min/1.51x1Bxxvdo Kidney Disease: Estimated GFR < 15 mL/min/1.73m2 Glucose 91 60 - 115 mg/dL [facility] Calcium 9.6 8.4 - 10.2 mg/dL [facility] 07/05/2024 10:4 8 AM EST 07/05/2024 10:48 AM EST us Generic External Data Provider LAB BLOOD ORDERAB LES Final Result [facility] [address] [place] [phone] * POCT HGB A1C (11/10/2023 2:27 PM EDT) Hemoglobin A1C 5.2 4.0 - 6.0 % QC Media Lot # [id number] Lot# Expiration Date [id number] Blood 11/10/2023 2:27 PM EDT us Mary Flores MD POINT OF CARE TEST ENTER/EDIT ORDERABLES Final Result * Lipid Panel, Standard (07/23/2023 3:35 PM EDT) Triglycerides 142 <150 mg/dL [facility] Comment:Desirable Triglyceri de: less than 150 mg/dLBorderline High Triglyceride 150-199 mg/dLHigh Triglyceride: 200-499 mg/dLVery High Triglyceride: greater than or equal to 5OO mg/dL Cholesterol 152 <200 mg/dL [facility] Comment:Desirable Cholestero l: less than 200 mg/dLBorderline High Cholesterol: 200-239 mg/dLHigh Cholesterol: greater than 239 mg/dL LDL Cholesterol Calculated 77 <100 mg/dL [facility] Comment:Desirable LDL: less than 100 mg/dLNear Optimal/Above Optimal LDL: 110- 129 mg/dLBorderline High LDL: 130-159 mg/dLHigh LDL: 160-189 mg/dLVery High LDL: greater than or equal to 190 mg/dL HDL Cholesterol 47 >40 mg/dL [facility] Comment:Desirable HDL: great er than 40 mg/dL Note: This HDL assay may give artificially low results in patients with liver disease. Blood Venous blood specimen / Unknown 07/23/2023 3:35 PM EDT 07/23/2023 4:17 PM EDT Mary Flores MD LAB BLOOD ORDERABLES Final Res ult [facility] [address] [place] [phone] * HEPATITIS C AB W/REFL TO [...] a test for HCV RNA (test code 41607) is suggested. ?? For additional information please refer to http://education.Graymatics/faq/EKG92l8 (This link is being provided for informational/ educational purposes only.) ?? 09/19/2021 9:58 AM EDT us Frances Malcolm GAS METER REPAIRER HISTORICAL/NON ORDERABLE LABS Final Result Performing Organization Address [facility]/ZIP Co de Phone Number [facility] [address] * ALBUMIN, RANDOM URINE W/CREATININE (09/13/2021 [...] SYSTEM 09/13/2021 2:19 PM EDT Frances Fowler GAS METER REPAIRER LAB URINE ORDERABLES Final Res ult Performing Organization Address [facility] Co de Phone Number [facility] [address] * Hm Colonoscopy (01/19/2021 8:45 AM EDT) Historical Provider HEALTH MAINTENANCE Final Result from Last 3 Months or Most Recently Relevant to Health Maintenance Insurance [facility] STAND ADULT Care Teams Department Of Natural Resources Officer Relationship Specialty Start Date End Date Mary Flores MD [address] [place] [phone] PCP - General Family Medicine 01/05/22
--- OUTSIDE RECORDS SUMMARY | 2024-08-15 14:29 | XMS_ITS | Encounter Summary ---
Author Organization [employer] Address [address] [place] [address] Care Team Providers Care Pug Machine Operator Name Role Phone Mary Flores MD Primary Care Provider [phone] Reason for Visit * Reason Onset Date Comments Durable Medical Equipment 07/08/2024 Encounter Details Date Type Department Care Team ([facility] st Contact Info) Description 07/08/2024 Telephone [facility] [address] [place] [address] Mary Flores MD [address] [place] [address] Durable Medical Equipment Social History Tobacco Use [...] Description 08/25/2024 2:00 PM EDT Office Visit [facility] [address] [place] [address] Mary Flores MD [address] [place] [address] documented as of this encounter Visit Diagnoses Not on filedocumented in this encounter Additional Health Concerns Assessment Noted Time PHQ-9 Depression Total Score: 7 11/10/19 24 2:30 PM EDT documented as of this encounter Care Teams Pug Machine Operator Relationship Specialty Start Date End Date Mary Flores MD [address] [place] [address] [phone] PCP - General Family Medicine 01/05/22 documented as of this encounter
--- OUTSIDE RECORDS SUMMARY | 2024-08-15 14:29 | XMS_ITS | Encounter Summary ---
Author Organization [employer] Address [address] [place] [address] Care Team Providers Care Ocean Rescue Lieutenant Name Role Phone Mary Flores MD Primary Care Provider [phone] Reason for Visit * Reason Comments Med Refill Encounter Details Date Type Department Care Team ([facility] st Contact Info) Description 04/19/2024 Refill [facility] [address] [place], [place] [phone] Olga Dillard ANP [address] [place] [address] Nasal congestion Social History Tobacco Use Types [...] Description 08/25/2024 2:00 PM EDT Office Visit [facility] [address] [place] [address] Mary Flores MD [address] [place] [address] documented as of this encounter Visit Diagnoses Diagnosis Nasal congestion Other diseases of nasal cavity and sinuses documented in this encounter Additional Health Concerns Assessment Noted Time PHQ-9 Depression Total Score: 7 11/10/19 24 2:30 PM EDT documented as of this encounter Care Teams Ocean Rescue Lieutenant Relationship Specialty Start Date End Date Mary Floers MD [address] [place] [address] PCP - General Family Medicine 01/05/22 documented as of this encounter
--- OUTSIDE RECORDS SUMMARY | 2024-08-15 14:29 | XMS_ITS | Encounter Summary ---
Author Organization [employer] Address [address] [place] [address] Care Team Providers Care Sales Team Recruiter Name Role Phone Mary Flores MD Primary Care Provider [phone] Reason for Visit * Reason Comments Med Refill Encounter Details Date Type Department Care Team ([facility] st Contact Info) Description 07/23/2024 Refill [facility] [address] [place], [place] [phone] Mary Flores MD [address] [place], [place] [phone] Social History Tobacco Use Types Packs/Day Years [...] Description 08/25/2024 2:00 PM EDT Office Visit [facility] [address] [place] [address] Mary Flores MD [address] [place] [phone] documented as of this encounter Visit Diagnoses Not on filedocumented in this encounter Additional Health Concerns Assessment Noted Time PHQ-9 Depression Total Score: 7 11/10/19 24 2:30 PM EDT documented as of this encounter Care Teams Sales Team Recruiter Relationship Specialty Start Date End Date Mary Flores MD [address] [place] [address] [phone] PCP - General Family Medicine 01/05/22 documented as of this encounter
--- OUTSIDE RECORDS SUMMARY | 2024-08-15 14:29 | XMS_ITS | Encounter Summary ---
Author Organization [employer] Address [address] [place] [address] Care Team Providers Care Assembler Liquid Center Name Role Phone Mary Flores MD Primary Care Provider [phone] Encounter Details Date Type Department Care Team (Latest Contact Info) Description 08/11/2024 Travel Social History Tobacco Use Types Packs/Day Years Used Date Smoking Tobacco: Never Passive Smoke Exposure: Never Smokeless Tobacco: Never Alcohol Use Standard [...] Description 08/25/2024 2:00 PM EDT Office Visit [facility] [address] [place] [address] Mary Flores MD [address] [place], [place] [phone] documented as of this encounter Visit Diagnoses Not on filedocumented in this encounter Additional Health Concerns Assessment Noted Time PHQ-9 Depression Total Score: 7 11/10/19 24 2:30 PM EDT documented as of this encounter Care Teams Assembler Liquid Center Relationship Specialty Start Date End Date Mary Flores MD [address] [place], [place] [phone] PCP - General Family Medicine 01/05/22 documented as of this encounter
--- OUTSIDE RECORDS SUMMARY | 2024-08-15 14:29 | XMS_ITS | Encounter Summary ---
Author Organization [facility] Address [address] [place] [address] [address] [place] [address] Care Team Providers Care Joiners Supervisor Name Role Phone Mary Flores MD Primary Care Provider [phone] Reason for Visit * Reason Onset Date Comments Referral 08/01/2022 Encounter Details Date Type Department Care Team (Late st Contact Info) Description 08/01/2022 Telephone [facility] [address] [place], [place] [phone] Mary Flores MD [address] [place], [place] [phone] Referral Social History Tobacco Use Types Packs/Day [...] [facility] Please contact pt at [phone] korean Speaker documented in this encounter Plan of Treatment Upcoming Encounters Date Type Department Care Team (Late Contact Info) Description 08/25/2024 2:00 PM EDT Office Visit [facility] [address] [place], [place] [phone] Mary Flores MD [address] [place], [place] [phone] documented as of this encounter Visit Diagnoses Not on filedocumented in this encounter Care Teams Joiners Supervisor Relationship Specialty Start Date End Date Mary Flores MD [address] [place], [place] [phone] PCP - General Family Medicine 01/05/22 documented as of this encounter
--- OUTSIDE RECORDS SUMMARY | 2024-08-15 14:29 | XMS_ITS | Encounter Summary ---
Author Organization [facility] Address [address] [place] [address] 7t [place] [address] Care Team Providers Care Care Aid Name Role Phone Mary Flores MD Primary Care Provider Reason for Referral * Imaging (Routine) - Pending Review Specialty Diagnoses / Procedures Referred By Contac t Referred To Contact Radiology Diagnoses Pneumonia due to infectious organism, unspecified laterality, unspecified part of lung Procedures CT Chest w/o Contrast Elise Lane MD [address] [place] [address] Phone: tel: fax: [address] Phone: tel: fax: Referral ID Status Reason Start Date Expiration Date V isits Requested Visits Authorized [id number] Pending Review 08/11/2024 08/11/2025 1 1 Reason for Visit * Reason Comments Hospital Follow-up pneumonia, pleural e ffusion,sob Encounter Details Date Type Department Care Team (Late st Contact Info) Description 08/11/2024 9:30 AM EDT Office Visit [facility] [address] [place] [phone] MD [address] [place], [place] [phone] Pneumonia due to infectious organism, unspecified laterality, unspecified part of lung (Primary Dx) Social History Tobacco Use Types [...] AM EDT documented as of this encounter Last Filed Vital Signs Vital Sign Reading [...] Mass Index 36.35 08/11/2024 9:49 AM EDT documented in this encounter Progress Notes * Elise Mcgee MD - 08/11/2024 9:30 AM EDT SUBJECTIVE: Margarita Zamora is a 74 y.o. year old female who presents for HDF . [facility] (08/06/24) Patient presented for evaluation of chest pain, SOB, fatigue, malaise, myalgia and fever. CXR showed opacification of left lung base which may be atelectasis, pneumonia or pleural fluid. CT showed small left pleural effusion with adjacent subsegmental atelectasis. Treated for pneumonia based off patient's symptoms. Discharged home on antibiotics. Medication changes that occurred during hospitalization include: Added Doxycycline hyclate 100 mg twice a day x 10 days Albuterol sulfate 90 mcg/act - 2 puffs every 4 to 6 hours as needed for sob or wheezing Prednisone 20 mg - 2 tabs (40 mg) once daily Changed: none Discontinued: none Acute Concerns: Patient reports she finished taking her prednisone, she continues to take her doxycycline, she tells me she has 5 more days of treatment with this antibiotic, she tells me she feels a little bit better than when she was hospitalized but still feels a lot of shortness of breath, pain in her chest with deep breathing and reports she has been having fever every night, she tells me she feels more tired than usual Social History Social History Narrative Lives with Patient Active Problem List Diagnosis Arthritis of both knees Asthma Chronic obstructive pulmonary disease (CMS/HCC) Essential tremor Gallstone Gastroesophageal reflux disease Herniated lumbar intervertebral disc Hiatal hernia Hyperlipidemia Essential hypertension Chronic constipation Irritable bowel syndrome with constipation Lung nodule Obstructive sleep apnea syndrome Osteopenia Chronic superficial gastritis without bleeding Migraine with aura and without status migrainosus, not intractable Metabolic syndrome X Mixed stress and urge incontinence History of skin cancer Blurry vision, bilateral Enuresis, nocturnal only Depression, recurrent (CMS/HCC) Trapezius muscle spasm Influenza A Obesity, morbid ([facility]) Class 2 severe obesity with serious comorbidity and body mass index (BMI) of 35.0 to 35.9 in adult ([facility]) Pneumonia due to infectious organism No family history on file. Review of Systems Constitutional: Positive for fatigue and fever. Negative for activity change, appetite change, chills, diaphoresis and unexpected weight change. HENT: Negative. Respiratory: Positive for cough, chest tightness and shortness of breath. Pleuritic chest pain Cardiovascular: Negative. Gastrointestinal: Negative. OBJECTIVE: Vitals: 08/11/24 0949 08/11/24 1432 BP: (!) 150/85 (!) 142/88 BP Location: Left arm Patient Position: Sitting BP Cuff Size: Large adult Pulse: 70 Resp: 20 Temp: 98.2 ??F (36.8 ??C) TempSrc: Temporal SpO2: 98% Weight: 205 lb 3.2 oz (93.1 kg) Height: 5' 3 (1.6 m) Physical Exam Constitutional: Appearance: Normal appearance. Cardiovascular: Rate and Rhythm: Normal rate and regular rhythm. Pulmonary: Comments: Minimal wheezing and upper posterior thorax, good air movement Neurological: Mental Status: She is alert. Follow Up: No follow-ups on file. Current Outpatient Medications on File Prior to Visit Medication Sig Dispense Refill albuterol (2.5 MG/3ML) 0.083% nebulizer solution INHALE 1 AMPULE USING A NEBULIZER EVERY 4 HOURS ASNEEDED FOR WHEEZING OR SHORTNESS OF BREATH alendronate (Fosamax) 70 MG tablet FARRAH FERNY TABLETA SEMANAL. 12 tablet 3 aspirin 81 MG chewable tablet Chew 1 tablet (81 mg) Once per day. 90 tablet 3 atorvastatin (Lipitor) 10 MG tablet Take 1 tablet (10 mg) by mouth at bedtime. 90 tablet 3 betamethasone dipropionate (Diprolene) 0.05 % ointment APPLY TO THE AFFECTED AREA(S) OF HANDS DAILYAS DIRECTED FOR ECZEMA 15 g 1 Bisacodyl EC 5 MG EC tablet TAKE 1 TABLET BY MOUTH EVERY DAY IN THE MORNING AND TAKE 2 TABLETS BY MOUTH EVERY DAY AT BEDTIME Blood Glucose Monitoring Suppl (Gamar Lite) w/Device kit Blood Pressure kit Use as directed for blood pressure budesonide-formoterol (Symbicort) 160-4.5 MCG/ACT inhaler Inhale 2 puffs every 12 (twelve) hours. Rinse mouth with water and expectorate after each dose to prevent oral/esophageal candidiasis or fungal infection. carbidopa-levodopa (Sinemet) 25-100 MG tablet Take 1 tablet by mouth 2 times daily. cetirizine (ZyrTEC) 10 MG tablet Take 1 tablet by mouth Once per day. Daliresp 500 MCG tablet TAKE 1 TABLET BY MOUTH EVERY DAY dilTIAZem CD (Cardizem CD) 300 MG 24 hr capsule Take 1 capsule by mouth Once per day. docusate sodium (Colace) 100 MG capsule Take 1 capsule by mouth 2 times daily. doxycycline (Vibramycin) 100 MG capsule Take 1 capsule by mouth 2 times daily. Dupixent 300 MG/2ML solution auto-injector Inject 2 mL under the skin every 14 (fourteen) days. fluticasone (Flonase) 50 MCG/ACT nasal spray Administer 1-2 sprays into each nostril Once per day. Shake gently. Before first use, prime pump. After use, clean tip and replace cap. 48 g 0 FreeStyle lancets hydroCHLOROthiazide 12.5 MG tablet Take 1 tablet (12.5 mg) by mouth Once per day. 90 tablet 3 ibuprofen 800 MG tablet Take 1 tablet (800 mg) by mouth every 6 (six) hours if needed for mild pain. 90 tablet 0 imipramine (Tofranil) 50 MG tablet TAKE 2 TABLETS BY MOUTH EVERY DAY AT BEDTIME ipratropium-albuterol (Duo-Neb) 0.5-2.5 mg/3 mL nebulizer solution Take 3 mL by nebulization Every 4-6 hours as needed for wheezing. 75 mL 2 lidocaine (Lidoderm) 5 % patch Apply 1 patch topically Once per day. Remove & discard patch within 12 hours or as directed by MD. 30 patch 3 Linzess 290 MCG capsule TAKE 1 CAPSULE BY MOUTH EVERY MORNING lisinopril 40 MG tablet Take 1 tablet (40 mg) by mouth Once per day. 90 tablet 3 metFORMIN (Glucophage) 500 MG tablet TAKE 1 TABLET BY MOUTH EVERY DAY IN MORNING 90 tablet 3 omeprazole (PriLOSEC) [address] capsule Take 1 capsule by mouth Once per day. ProAir RespiClick 108 (90 Base) MCG/ACT aerosol powder Inhale 2 puffs Every 4-6 hours as needed (SOB or wheezing). Spiriva Respimat 2.5 MCG/ACT inhaler Inhale 2 puffs Once per day. [DISCONTINUED] albuterol 108 (90 Base) MCG/ACT inhaler INHALE 2 PUFFS BY MOUTH EVERY 4 TO 6 HOURS NEEDED [DISCONTINUED] GaviLyte-G 236 g solution No current facility-administered medications on file prior to visit. Problem List Items Addressed This Visit Pneumonia due to infectious organism - Primary Patient looks clinically stable, respiratory rate and saturation are within normal limits but in light patient is telling me she still has shortness of breath fatigue, pleuritic pain and most of all fever every night I decided to add Augmentin 875 mg - 125 mg twice daily and continue also with the d oxycycline, I also decided to repeat the CT [...] PCP in about 2 weeks for reevaluation Relevant Medications amoxicillin-clavulanate (Augmentin) 875-125 MG tablet Other Relevant Orders CT Chest w/o Contrast documented in this encounter Miscellaneous Notes * Assessment & Plan Note - Elise Mcgee MD - 08/11/2024 2:39 PM EDT Associated Problem(s): Pneumonia due to infectious organism Patient looks clinically stable, respiratory rate and saturation are within normal limits but in light patient is telling me she still has shortness of breath fatigue, pleuritic pain and most of all fever every night I decided to add Augmentin 875 mg - 125 mg twice daily and continue also with the d oxycycline, I also decided to repeat the CT [...] PCP in about 2 weeks for reevaluation documented in this encounter Plan of Treatment Upcoming Encounters Date Type Department Care Team (Late st Contact Info) Description 08/25/2024 2:00 PM EDT Office Visit [facility] [address] [place] [address] Mary Flores MD [address] [place] [address] Scheduled Orders Name Type Priority Associated Diagnoses Orde r Schedule CT Chest w/o Contrast Imaging Routine Pneumonia due to infectious organism, unspecified laterality, unspecified part of lung Expected: 08/11/2024, Expires: 08/11/2025 documented as of this encounter Visit Diagnoses Diagnosis Pneumonia due to infectious organism, unspecified laterality, unspecified part of lung- Primary documented in this encounter Additional Health Concerns Assessment Noted Time PHQ-9 Depression Total Score: 7 11/10/19 24 2:30 PM EDT documented as of this encounter Care Teams Care Aid Relationship Specialty Start Date End Date Mary Flores MD [address] [place] [phone] PCP - General Family Medicine 01/05/22 documented as of this encounter
--- OUTSIDE RECORDS SUMMARY | 2024-08-15 14:29 | XMS_ITS | Encounter Summary ---
Author Organization [employer] Address [address] [place] [address] Care Team Providers Care Yeast Pumper Name Role Phone Mary Flores MD Primary Care Provider [phone] Reason for Visit * Reason Onset Date Comments Durable Medical Equipment 07/25/2023 Encounter Details Date Type Department Care Team ([facility] st Contact Info) Description 07/25/2023 Telephone [facility] [address] [place] [address] Mary Flores MD [address] [place] [address] Durable Medical Equipment Social History Tobacco Use [...] - 07/25/2023 11:42 AM EDT Tc from Violeta with [employer] requesting DME supplies to be sent to [facility] - bed pads - L pull ups - oximeter documented in this encounter Plan of Treatment Upcoming Encounters Date Type Department Care Team (Late st Contact Info) Description 08/25/2024 2:00 PM EDT Office Visit [facility] [address] [place] [address] Mary Flores MD [address] [place] [address] documented as of this encounter Visit Diagnoses Not on filedocumented in this encounter Care Teams Yeast Pumper Relationship Specialty Start Date End Date Mary Flores MD [address] [place] [address] PCP - General Family Medicine 01/05/22 documented as of this encounter
--- OUTSIDE RECORDS SUMMARY | 2024-08-15 14:29 | XMS_ITS | Encounter Summary ---
Author Organization [facility] Address [address] [facility] [address]t [place] [address] Care Team Providers Care Unit Leader Name Role Phone Mary Flores MD Primary Care Provider [phone] Encounter Details Date Type Department Care Team (Late Contact Info) Description 08/27/2022 Orders Only [facility] [address] [place] [phone] Mary Flores MD [address] [place] [address] [phone] Social History Tobacco Use Types Packs/Day Years [...] Description 08/25/2024 2:00 PM EDT Office Visit [facility] [address] [place] [phone] Mary Flores MD [address] [place] [address] documented as of this encounter Visit Diagnoses Not on filedocumented in this encounter Care Teams Unit Leader Relationship Specialty Start Date End Date Mary Flores MD [address] [place] [address] PCP - General Family Medicine 01/05/22 documented as of this encounter
--- OUTSIDE RECORDS SUMMARY | 2024-08-15 14:29 | XMS_ITS | Encounter Summary ---
Author Organization [employer] Address [address] [place] [address] Care Team Providers Care Raise Miner Name Role Phone Mary Flores MD Primary Care Provider Reason for Visit * Reason Onset Date Comments ER Follow-up 08/09/2024 Encounter Details Date Type Department Care Team ([facility] st Contact Info) Description 08/09/2024 Telephone [facility] [address] [place] [address] Mary Flores MD [address] [place] [address] ER Follow-up Social History Tobacco Use Types Packs/Day Years [...] encounter Miscellaneous Notes * Telephone Encounter - Nikky Pond RN - 08/09/2024 9:32 AM EDT Triage call with [facility] [place] [id number] Pt was hospitalized 08/06/24 @ [facility] for pneumonia, pleural effusion and SOB. (Report is on the chart)Pt is taking antibiotics as prescribed and advised to rest and drink adequate liquids. Pt agrees. Pt reports a chest pain which radiates to back with SOB at times. Pt reports this sx was what broughtPt to seek assistance at hospital. ASK apt with Dr. Park 08/11/24 @ 930am. Pt agrees with disposition. Insurance is verified as active prior to booking. Protocol Used: Breathing Difficulty (Adult) Protocol-Based Disposition: See in Office or Video Visit within 3 Days Video visit not offered Positive Triage Question: * Moderate longstanding difficulty breathing (e.g., speaks in phrases, SOB even at rest, pulse 100-120) and same as normal< br /> * All higher-acuity triage questions were negative Care Advice Discussed: * General Care Advice for Breathing Difficulty * Reasons To Call Back - Severe difficulty breathing occurs - Fever more than 100.4 F (38.0 C) - You become worse * Telephone Encounter - Johnathan Raymond - 08/09/2024 9:01 AM EDT Patient calling to report ED visit on : Date: 08/06/24 Hospital: [facility] Seen for: Chest Pain Symptomatic Yes *if yes message should go to Triage Patient advised will forward to team nurse for follow up Contact pt at [phone] documented in this encounter Plan of Treatment Upcoming Encounters Date Type Department Care Team (Late st Contact Info) Description 08/25/2024 2:00 PM EDT Office Visit [facility] [address] [place] [address] Mary Flores MD [address] [place], [place] [phone] documented as of this encounter Visit Diagnoses Not on filedocumented in this encounter Additional Health Concerns Assessment Noted Time PHQ-9 Depression Total Score: 7 11/10/19 24 2:30 PM EDT documented as of this encounter Care Teams Raise Miner Relationship Specialty Start Date End Date Mary Flores MD [address] [place] [phone] PCP - General Family Medicine 01/05/22 documented as of this encounter
--- OUTSIDE RECORDS SUMMARY | 2024-08-15 14:29 | XMS_ITS | Encounter Summary ---
Author Organization [employer] [facility] Address [address] [place] [address] [address]t [place] [address] Care Team Providers Care First Crusher Name Role Phone Mary Flores MD Primary Care Provider [phone] Encounter Details Date Type Department Care Team ([facility] Contact Info) Description 08/01/2022 Orders Only [facility] [address] [place] [phone] Mary Flores MD [address] [place] [phone] Blurry vision (Primary Dx) Social History Tobacco [...] Description 08/25/2024 2:00 PM EDT Office Visit [facility] [address] [place] [phone] Mary Flores MD [address] [place] [address] [phone] documented as of this encounter Visit Diagnoses Diagnosis Blurry vision- Primary Other specified visual disturbances documented in this encounter Care Teams First Crusher Relationship Specialty Start Date End Date Mary Flores MD [address] [place] [phone] PCP - General Family Medicine 01/05/22 documented as of this encounter
--- OUTSIDE RECORDS SUMMARY | 2024-08-15 14:29 | XMS_ITS | Clinical Summary ---
Author Organization [facility] Address [address] [address] Care Team Providers Care Cotton Stomper Name Role Phone Frances Fowler RN Primary [...] DAILY FOR 2 DAYS. 12/21/2020 Active Creon 97816-03967 units capsule TAKE 1 CAPSULE BY MOUTH [...] by mouth 02/12/2021 Active ergocalciferol 1.25 MG (52435 UT) capsule TAKE 1 CAPSULE BY MOUTH [...] DUAL ELIG PLAN DUAL ELIG Care Teams Cotton Stomper Relationship Specialty Start Date End Date Frances Fowler RN PCP - General Family Medicine 11/09/20
--- OUTSIDE RECORDS SUMMARY | 2024-08-15 14:29 | XMS_ITS | Encounter Summary ---
Author Organization [employer] Address [address] [place] [address] Care Team Providers Care Cabinet And Trim Installer Name Role Phone Mary Flores MD Primary Care Provider [phone] Reason for Visit * Reason Comments Med Change Request Encounter Details Date Type Department Care Team ([facility] st Contact Info) Description 12/05/2023 Refill [facility] [address] [place], [place] [phone] Tyrel Trivedi MD [address] [place] [address] Social History Tobacco Use Types Packs/Day Years [...] Description 08/25/2024 2:00 PM EDT Office Visit [facility] [address] [place] [address] Mary Flores MD [address] [place] [phone] documented as of this encounter Visit Diagnoses Not on filedocumented in this encounter Additional Health Concerns Assessment Noted Time PHQ-9 Depression Total Score: 7 11/10/19 24 2:30 PM EDT documented as of this encounter Care Teams Cabinet And Trim Installer Relationship Specialty Start Date End Date Mary Flores MD [address] [place] [address] [phone] PCP - General Family Medicine 01/05/22 documented as of this encounter
--- OUTSIDE RECORDS SUMMARY | 2024-08-15 14:29 | XMS_ITS | Data Portability ---
Author Organization [employer] [facility] - [facility] Address [address] [place] [id number] Care Team Providers Care Psychiatric Social Worker Name Role Phone HIM CCA Referring Provider [phone] Assessment Encounter Date Assessment Date Assessment LastModified by Organization Details LastModified Time 08/21/2023 08/21/2023 I provided real -time medical direction via phone for this encounter, and was available for additional phone based assistance as needed. I have reviewed and agree with the Assessment and Plan as documented by the Wiener Packer. We discussed the diagnostic uncertainty of home visits and the risk associated with this. In this case the patient and I felt this to be an acceptable and reasonable amount of risk given the benefit of avoiding an ED visit. Via foreign language interpreter, the patient given the opportunity to ask questions. Advised to follow-up with PCP tomorrow if develops CP/severe SOB/turning blue/uncontrolle d n/v/d or black/bloody emesis or stool/ AMS/ syncope/ hi fever unresponsive to APAP to call 911- verbalized understanding of instruction [email or web address] Not available 08/21/2023 11:52:46 Plan of Treatment Reminders Order Date Submit Date Provider Last Modified By Organization Details Last Modified Time Details Appointments None recorded. Lab BMP, serum or plasma 2023 024 [email or web address] 0 [facility], [address] [place] [address], [id number] 4 11:57:22 rapid SARS CoV 2 Ag, QL IA, respiratory specimen 2023 024 [email or web address], [id number] 4 11:57:26 rapid flu (A+B) 2023 024 [email or web address], [id number] 4 11:57:27 Referral None recorded. Procedures None recorded. Surgeries None recorded. Imaging None recorded. Medication Orders ondansetron 4 mg disintegrat ing tablet 2023 [facility], [address] [place] [address], [id number], 4 14:03:53 ipratropium 0.5 mg-albutero l 3 mg (2.5 mg base)/3 mL nebulizatio n soln 2023 024 [email or web address] 0 Not available 11:57:22 prednisone 20 mg tablet 2023 024 [email or web address] 0 Not available 4 11:57:22 prednisone 20 mg tablet 2023 [facility], [address] [place] [address], [id number], 4 12:59:13 Tylenol Arthritis Pain 650 mg tablet,exte nded release 2023 [facility], [address] [place] [address], [id number], 4 14:44:00 benzonatate 200 mg capsule 2023 [facility], [address] [place] [address], [id number], 4 11:39:43 Patient TargetsNo targets recorded. Patient InstructionsNo instructions recorded. Reason for Referral None Reported. Results Created Date Observation Date Name Description Value Unit Range Abnormal Flag Note LastModifiedBy Organization Detail LastModifiedTime 08/21/19 24 08/21/2023 BMP, serum or plasm a BUN 18 Not Available [facility] - [facility] [address], [id number] 08/21/2023 11:23:37 08/21/19 24 08/21/2023 BMP, serum or plasm a Ca Ionize d calciu m 1.21 Not Available Main - [facility] ed [address] [place] [address], [address] [place] [address] 08/21/2023 11:23:37 08/21/19 24 08/21/2023 BMP, serum or plasm a CI- 107 Not Available [facility] - Ins [address], [address] [place] [address] 08/21/2023 11:23:37 08/21/19 24 08/21/2023 BMP, serum or plasm a CRE 0.54 Not Available Main - [facility] [address], [address] [place] [address] 08/21/2023 11:23:37 08/21/19 24 08/21/2023 BMP, serum or plasm a GLU 89 Not Available [facility] - Ins [address], [address] [place] [address] 08/21/2023 11:23:37 08/21/19 24 08/21/2023 BMP, serum or plasm a K+ 3.9 Not Available Main - [facility] [address], [address] [place] [address] 08/21/2023 11:23:37 08/21/19 24 08/21/2023 BMP, serum or plasm a Na+ 143 Not Available Main - [facility] [address], [address] [place] [address] 08/21/2023 11:23:37 08/21/19 24 08/21/2023 BMP, serum or plasm a tCO2 26.4 Not Available [facility] - [address], [address] [place] [address] 08/21/2023 11:23:37 08/21/19 24 08/21/2023 rapid SARS CoV 2 Ag, QL IA, respi rator y speci men rapid SARS CoV 2 Ag, QL IA, respiratory specimen negati ve Not Available [facility] - [facility] ed [address] [place] [address], [address] [place] [address] 08/21/2023 11:23:43 08/21/19 24 08/21/2023 rapid flu (A+B) Flu negati ve Not Available [facility] - [facility] ed [address] [place] [address], [address] [place] [address] 08/21/2023 11:23:44 Result Notes None recorded. Medical Equipment None Reported. Allergies Allergen ID Allergen Name Allergen Category Reaction Reaction Severity Criticality Documentation Date Start Date Code Code System Note Provider Name and Address Organization Details Recorded Time 4856 morphine medicatio n Not available Not available Not available 08/21/2023 7052 RxNorm Not Available [facility] - production 04:14:38 Medications Name Sig Start Date Stop Date Status Note LastModified by Organization Details LastModified Time pulse oximet airial [id number] USE DIRECTED EVERY DAY IN THE MORNING [...] oral route after meal(s) for 4 days. 04/11/ 2024 active Not Available Not Available Not Avai [...] Address Organization Details Last Updated DateTime 4 00157.2 16 g 97.8 [degF] 16 /min 76 [...] SNOMED-CT Code Diagnosis ICD10 Code Diagnosis Note [id number] Genevieve Stover MD Main - [facility] [address] [place] [id number] 08/21/2023 10:58:16 08/21/2023 14:52:00 Upper respiratory infection [id number] J06.9 With COPD residual from influenza. Patient [...] Briceño Member ID Guarantor Name 08/21/2023 1 [facility] - DOS ON OR AFTER 2022 - DUAL ELIGIBLE - RESIDENTIAL OPTIONS AND ONE CARE (MEDICARE REPLACEMENT/ADV ANTAGE - HMO) Margarita Ordonez [id number] Margarita Ordonez Notes Date Note Type Note Provider Name and Address Organization Details Recorded Time 08/21/2023 text/html HPI: Call to Margarita Zamora reports continues to have cough, SOB and wheezing. Pt seen at [facility] [place] and dx with Flu A. [...] .................. .................. .................. .................. .................. .................. .... Wiener Packer Note From Kun Cruz: Pt co cough without production and sob with exertion and using nebs and inhalers more frequently. Pt was diagnosed flu A /. Pt was on prednisone but RX ended 3 days ago. Pt denies NC CP fever diarrhea headache nausea. Pt st did vomit yesterday. Baseline vitals assessed, POc bloodwork unremarkable. Covid flu swab negative. Lungs rhonchi with slight wheezing. Afebrile. [facility] contacted and duo neb, 40mg prednisone given, RX for prednisone, benzonatate,zofran and Tylenol called in. Pt advised to follow up with pcp tomorrow. Pt advised to increase neb treatments from 3 xper day to 4 x? s per day. Pt advised to discontinue use of naprasin( SEGMD: Naprosyn) while ill due to increased BP. Pt education on signs indicating the ER. Wiener Packer Allergies: Morphine .................. .................. .................. .................. .................. .................. .................. ............... Disposition: Fulfilled Genevieve Stover MD [address] [facility],[address], [place], [address], [employer] 08/21/2023 12:03:44 OBGyn Episode No OBEpisode recorded.
--- OUTSIDE RECORDS SUMMARY | 2024-08-15 14:29 | XMS_ITS | Encounter Summary ---
Author Organization [employer] Address [address] [place] [address] Care Team Providers Care Employment Law Attorney Name Role Phone Mary Flores MD Primary Care Provider [phone] Encounter Details Date Type Department Care Team (Late st Contact Info) Description 09/12/2023 Orders Only [facility] [address] [place] [address] ProviderElliott MD Social History Tobacco Use Types [...] Description 08/25/2024 2:00 PM EDT Office Visit [facility] [address] [place] [address] Mary Flores MD [address] [place] [address] documented as of this encounter Procedures Procedure Name Priority Date/Time Associated Diagnosis Comments HM COLONOSCOPY Routine 01/19/2021 8:45 AM EDT documented in this encounter Results * Hm Colonoscopy (01/19/2021 8:45 AM EDT) Historical Provider HEALTH MAINTENANCE Final Result documented in this encounter Visit Diagnoses Not on filedocumented in this encounter Care Teams Employment Law Attorney Relationship Specialty Start Date End Date Mary Flores MD [address] [place] [phone] PCP - General Family Medicine 01/05/22 documented as of this encounter
--- OUTSIDE RECORDS SUMMARY | 2024-08-15 14:29 | XMS_ITS | Encounter Summary ---
Author Organization [employer] Address [address] [place] [address] Care Team Providers Care Electronic Maintenance Supervisor Name Role Phone Mary Flores MD Primary Care Provider [phone] Encounter Details Date Type Department Care Team (Late st Contact Info) Description 12/05/2023 Orders Only [facility] [address] [place] [address] Tyrel Trivedi MD [address] [place] [address] Social History Tobacco Use Types Packs/Day Years [...] Description 08/25/2024 2:00 PM EDT Office Visit [facility] [address] [place] [address] Mary Flores MD [address] [place] [address] documented as of this encounter Visit Diagnoses Not on filedocumented in this encounter Additional Health Concerns Assessment Noted Time PHQ-9 Depression Total Score: 7 11/10/19 24 2:30 PM EDT documented as of this encounter Care Teams Electronic Maintenance Supervisor Relationship Specialty Start Date End Date Mary Flores MD [address] [place], [place] [phone] PCP - General Family Medicine 01/05/22 documented as of this encounter
--- OUTSIDE RECORDS SUMMARY | 2024-08-15 14:29 | XMS_ITS | Encounter Summary ---
Author Organization [employer] Address [address] [place] [address] Care Team Providers Care Simplex Printer Installer Name Role Phone Mary Flores MD Primary Care Provider [phone] Encounter Details Date Type Department Care Team (Late st Contact Info) Description 12/17/2023 Orders Only [facility] [address] [place] [address] Mary Flores MD [address] [place] [address] Social History Tobacco Use Types Packs/Day Years [...] Description 08/25/2024 2:00 PM EDT Office Visit [facility] [address] [place] [address] Mary Flores MD [address] [place] [address] documented as of this encounter Visit Diagnoses Not on filedocumented in this encounter Additional Health Concerns Assessment Noted Time PHQ-9 Depression Total Score: 7 11/10/19 24 2:30 PM EDT documented as of this encounter Care Teams Simplex Printer Installer Relationship Specialty Start Date End Date Mary Flores MD [address] [place], [place] [phone] PCP - General Family Medicine 01/05/22 documented as of this encounter
--- OUTSIDE RECORDS SUMMARY | 2024-08-15 14:29 | XMS_ITS | Encounter Summary ---
Author Organization [facility] [facility] Address [address] [place] [address] Care Team Providers Care Echocardiologist Name Role Phone Mary Flores MD Primary Care Provider [phone] Reason for Visit * Reason Comments Med Refill Encounter Details Date Type Department Care Team (Late Contact Info) Description 08/15/2022 Refill [facility] [address] [place] [address] [phone] Keri Ochoa MD [address] [place] [address] [phone] Social History Tobacco Use Types Packs/Day Years [...] Description 08/25/2024 2:00 PM EDT Office Visit [facility] [address] [place] [phone] Mary Flores MD [address] [place] [address] [phone] documented as of this encounter Visit Diagnoses Not on filedocumented in this encounter Care Teams Echocardiologist Relationship Specialty Start Date End Date Mary Flores MD [address] [place] [address] PCP - General Family Medicine 01/05/22 documented as of this encounter
--- OUTSIDE RECORDS SUMMARY | 2024-08-15 14:29 | XMS_ITS | Encounter Summary ---
Author Organization [employer] [facility] Address [address] [place] [address] [address] [place] [address] Care Team Providers Care Dice Table Operator Name Role Phone Mary Flores MD Primary Care Provider [phone] Encounter Details Date Type Department Care Team (Latest Contact Info) Description 01/29/2021 Abstract [facility] CONVERSIONS Dental, Provider, DDS Social History [...] Description 08/25/2024 2:00 PM EDT Office Visit [facility] [address] [place] [address] Mary Flores MD [address] [place] [address] documented as of this encounter Visit Diagnoses Not on filedocumented in this encounter Care Teams Dice Table Operator Relationship Specialty Start Date End Date Mary Flores MD [address] [place] [address] PCP - General Family Medicine 01/05/22 documented as of this encounter
--- OUTSIDE RECORDS SUMMARY | 2024-08-15 14:30 | XMS_ITS ---
Author Name Sonya Gallagher NP Address [address] [place] [address] Phone [phone] Organization [facility] Care Team Providers Care Bankruptcy Assistant Name Role Phone Sonya Gallagher Unavailable [phone] NATALY CRANDALL Unavailable [phone] Bret Bonner Unavailable [phone] Deanna Casillas Unavailable [phone] CALEB RAMON Unavailable [phone] EDWARD REBOLLEDO Unavailable [phone] Reason for Referral Not Available Allergies, adverse [...] 290 MCG Cap TAKE 1 CAPSULE BY [facility] EVERY MORNING 2021-10-25 No Data Available Albuterol Sulfate HFA 108 (9 0 Base) MCG/ACT Aerosol Solution INHALE 2 PUFFS BY MOUTH EVERY 4 TO 6 HOURS NEEDED 2021-05-30 No Data Available Amitriptyline 100 mg Tab TAKE 1 TABLET B Y MOUTH AT BEDTIME 2021-10-09 No Data Available [facility]on [id number] UNIT Cap delayed rel TAKE 1 CAPSULE BY MOUTH FOUR TIMES DAILY, WITH MEALS OR SNACKS AND AT BEDTIME 2021-11-08 No Data Available Cyclobenzaprine 10 mg Tab TAKE 1 TABLET BY MOUTH AT BEDTIME 2021-10-09 No Data Available Daliresp 500 MCG Tab TAKE 1 TABLET BY [facility] EVERY DAY 2021-05-30 No Data Available dilTIAZem [...] Available Vitamin D (Ergocalciferol) 1 .25 mg (40174 UT) Cap TAKE 1 CAPSULE BY MOUTH [...] Tab TAKE 1 TABLET BY [facility] TH THREE TIMES DAILY NEEDED FOR DIZZINESS 2022-03-07 [...] N/A Depression, major, in partial remission Active N/A Congestive heart failure Active 2022-04-08 N/A 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 2022-04-08 N/A Encounters Encounters Type Facility Date of Service Diagnosis/Co mplaint New patient,40-59min; chronic exacerbation, 2 stable chronic or 1 acute illness add add modifier 95 for video (do not use for phone, instead use 23371-32) [facility] ([place]) 04/08/2022 Hypertensive heart disease w ith heart failureHeart failure, unspecifiedUnspecified asthma, uncomplicatedChronic obstructive pulmonary disease, unspecifiedRheumatoid arthritis, unspecifiedHyperlipidemia, unspecifiedDepression, unspecified New patient,40-59min; chronic exacerbation, 2 stable chronic or 1 acute illness add add modifier 95 for video (do not use for phone, instead use 23538-78) [facility] ([place]) 04/08/2022 New patient,40-59min; chronic exacerbation, 2 stable chronic or 1 acute illness add add modifier 95 for video (do not use for phone, instead use 38320-79) [facility] ([place]/2022 New patient,40-59min; chronic exacerbation, 2 stable chronic or 1 acute illness add add modifier 95 for video (do not use for phone, instead use 36720-64) [facility] ([place]) 04/08/2022 New patient,40-59min; chronic exacerbation, 2 stable chronic or 1 acute illness add add modifier 95 for video (do not use for phone, instead use 69606-95) [facility] ([place]) 04/08/2022 New patient,40-59min; chronic exacerbation, 2 stable chronic or 1 acute illness add add modifier 95 for video (do not use for phone, instead use 92269-08) [facility] ([place]) 04/08/2022 New patient,40-59min; chronic exacerbation, 2 stable chronic or 1 acute illness add add modifier 95 for video (do not use for phone, instead use 36743-96) [facility] ([place]) 04/08/2022 New patient,40-59min; chronic exacerbation, 2 stable chronic or 1 acute illness add add modifier 95 for video (do not use for phone, instead use 69894-59) [facility] ([place]) 04/08/2022 New patient,40-59min; chronic exacerbation, 2 stable chronic or 1 acute illness add add modifier 95 for video (do not use for phone, instead use 36009-07) [facility] ([place]) 04/08/2022 Estab. patient 20-29min; 1 stable chronic or 2 minor; add add modifier 95 for video, modifier 93 for phone [facility] ([place]) 05/09/2022 Hypertensive heart disease w ith heart [...] tive Time Current Smoking Status Never smoker 6 Sex Female History of Procedures Procedures Service Procedure code Service date Servicing provider Phone# New patient,40-59min; chronic exacerbation, 2 stable chronic or 1 acute illness add add modifier 95 for video (do not use for phone, instead use 64378-79) 10768 2022-04-09 No Data Available No Data Availa [...] 95 for video, modifier 93 for phone 70689 2022-05-09 No Data Available No Data Availa [...] modifier 95Continue to see PCP. Follow-up with [place] as needed for any acute or disease education needs that may arise.cont with carvedilol and cont to follow w Cardiologistcont taking lisinoprilcont w Breo, albuterol and dalirespcont to follow w pulmonologistcont on current regimencont on atorvastatincont taking duloxetine and follow w therapy as needed 2022-05-09 11:50:14 Televideo 20-29min; 1 stable chronic or 2 minor; add modifier 95Continue to see PCP. Follow-up with [facility] as needed for any acute or disease [...] worseon Amitriptyline, Duloxetinealso on Melatonin for sleepPHQ9=1 MarMI-35.43 associated HTN, CHFencourage healthy food choices Goals [...] using a udio and video over the Net Element tablet. Time spent in visit: 20 minutesToday, patient has chief complaint of: monitoring of chronic conditions 2022-05-09 Most recent hospital stay(s) or ER visit(s) and precipitating factors: denies 2022-05-09 Open HEDIS Measure falguni carbajal: done
--- OUTSIDE RECORDS SUMMARY | 2024-08-15 14:30 | XMS_ITS | Encounter Summary ---
Author Organization [employer] Address [address] [place] [address] Care Team Providers Care Upper Cutter Name Role Phone Mary Flores MD Primary Care Provider [phone] Reason for Visit * Reason Onset Date Comments filling fell out 01/19/2024 Encounter Details Date Type Department Care Team ([facility] st Contact Info) Description 01/19/2024 Telephone [facility] [address] [place] [address] Sari Mckinnon, DDS [address] [place] [address] filling fell out Social History Tobacco Use [...] Description 08/25/2024 2:00 PM EDT Office Visit [facility] [address] [place] [address] Mary Flores MD [address] [place] [address] documented as of this encounter Visit Diagnoses Not on filedocumented in this encounter Additional Health Concerns Assessment Noted Time PHQ-9 Depression Total Score: 7 11/10/19 24 2:30 PM EDT documented as of this encounter Care Teams Upper Cutter Relationship Specialty Start Date End Date Mary Flores MD [address] [place] [address] PCP - General Family Medicine 01/05/22 documented as of this encounter
--- OUTSIDE RECORDS SUMMARY | 2024-08-15 14:30 | XMS_ITS | Encounter Summary ---
Author Organization [employer] Address [address] [place] [address] Care Team Providers Care Shipwright Supervisor Name Role Phone Mary Flores MD Primary Care Provider [phone] Reason for Visit * Reason Onset Date Comments Appointment Request 06/13/2023 Encounter Details Date Type Department Care Team ([facility] st Contact Info) Description 06/13/2023 Telephone [facility] [address] [place] [address] Mary Flores MD [address] [place] [address] Appointment Request Social History Tobacco Use Types [...] told her that when she returned from [place] to call for an appointment in person. documented in this encounter Plan of Treatment Upcoming Encounters Date Type Department Care Team (Late st Contact Info) Description 08/25/2024 2:00 PM EDT Office Visit [facility] [address] [place] [address] Mary Flores MD [address] [place] [address] documented as of this encounter Visit Diagnoses Not on filedocumented in this encounter Care Teams Shipwright Supervisor Relationship Specialty Start Date End Date Mary Flores MD [address] [place] [address] PCP - General Family Medicine 01/05/22 documented as of this encounter
[2024-08-15 14:39] LABS: Lactic Acid 1.6 mmol/L (0.5-2.0)
[2024-08-15 14:48] LABS: B Type Natriuretic Peptide < 10 pg/mL (<100)
[2024-08-15 15:11] LABS: Influenza A PCR NEGATIVE (Negative); Influenza B PCR NEGATIVE (Negative); Resp Syncy Virus RNA Qual PCR NEGATIVE (Negative); SARS COV2 PCR INHOUSE NEGATIVE (Negative)
[2024-08-15] MEDS: fentaNYL citrate/PF 100 MCG/2 ML VIAL 12.5 MCG IVPUSH (16:26)
[2024-08-15] MEDS: cefTRIAXone sodium 2 GM VIAL IVPUSH (16:26)
[2024-08-15] MEDS: Azithromycin 500 MG in 0.9 % Sodium Chloride 250 ML 125 MG IV (16:31)
--- NOTE | 2024-08-15 16:50 | MHC.EDTECH ---
pt attempted to ambulate due to verbal order for o2 sat check while walking per the hospitalist, pt was able to stand up then began to complain of chest pain and dizziness,pt laid back in back unable to ambulate at this time,RN aware
--- NOTE | 2024-08-15 16:57 | PM.IMHP ---
History of Present Illness Date of Service: 08/15/24 Attending physician on admission: Meliza Reed Chief Complaint: Chest pain Pt is a 74-year-old [place] Islander-speaking female with a PMH significant for asthma/COPD overlap syndrome not on home O2, HTN, [id number]-cegqqahpi type 2 diabetes, GERD, mood disorder, and OTILIO on CPAP?who presents to the ED with?intermittent left-sided chest pain x1 week. Pt has recently had multiple pulmonary infections, including testing positive for RSV on 02/02/2024 and then being treated for post viral pneumonia on 08/06/2024 with doxycycline x10 days. Since then pt has been complaining of intermittent left-sided nonradiating chest pain. Pain is described as sharp and stabbing, lasting 4-5 minutes long, and occurring multiple times per hour. Pain worsened with deep breathing. Pt also complaining of SOB and difficulty breathing secondary to pain. Family is at bedside who report pt has been compliant with home medications, including antibiotics. Currently they do not feel safe bring pt home. Pt denies any other acute medical complaints. No fever, chills, nausea, vomiting, abdominal pain. In the ED pt was afebrile, but initially tachycardic up to 101, satting at 93% on RA. Labs were grossly unremarkable and around baseline for pt. No leukocytosis. Stable H&H. No significant electrolyte abnormalities. Renal and hepatic function WNL and baseline. Initial troponin negative. BNP negative. Lactic acid WNL. Tested negative for flu, COVID, RSV. CXR showed left basilar pneumonia with parapneumonic effusion similar to prior on 08/06. Chest CTA negative for pulmonary embolus, but showed left basilar pneumonia with small left pleural effusion similar to prior CT on 08/06/2024. EKG demonstrated normal sinus rhythm with right bundle branch block, similar to previous. Pt was treated with fentanyl, ceftriaxone, and azithromycin. Pt will be admitted to the hospital under observation for treatment and further evaluation of atypical chest pain concerning for costochondritis. Review of Systems Review of Systems: Negative except for that which is stated in the HPI. 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 Sacroiliitis Disc degeneration, lumbar OTILIO (obstructive sleep apnea) Back pain HTN (hypertension) Skin cancer (melanoma) GERD (gastroesophageal reflux disease) Depression OTILIO (obstructive sleep apnea) Kidney stones Pulmonary nodule Severe asthma Primary osteoarthritis involving multiple joints Pneumonia Chronic allergic rhinitis (~03/09/20) Asthma-COPD overlap syndrome Family History Father No problems noted. Mother No problems noted. Surgical History History of bronchoscopy History of cystoscopy History of laparoscopic appendectomy History of nasal surgery Hx of section Hx of tubal ligation Hx of colonoscopy History of esophagogastroduodenoscopy (EGD) Hx of knee surgery Social History Household Members: Children Housing: Apartment Do you presently have visiting nurse or other home services: Yes (private home health aid) Alcohol intake: never Patient Tobacco Use Status: Never used Tobacco Smoked in Last 30 Days: No e-Cigarette/Vaping Use: Never Used Second Hand Smoke Exposure: No Use of substances other than those prescribed or required for medical reasons: No Advance Directives: Yes Advance Directives on File: Yes Advance Directives Date on File: 10/13/23 Do you have a plan to hurt others: No Plan service: No Current occupational status: disabled Current occupation: rt handed Meds Allergies Allergy/AdvReac Type Severity Reaction Status Date / Time morphine [MORPHINE] Allergy Intermediate NAUSEA, Verified 08/15/24 13:46 rash, redness Active Medications: Current Medications Acetaminophen (Acetaminophen 325 Mg Tablet) 650 mg PO Q6H PRN PRN Reason: Pain, Mild 1-3,fever,headache Calcium Carbonate (Calcium Carbonate 750 Mg Tab.Chew) 750 mg PO Q4H PRN PRN Reason: Heartburn Azithromycin 500 mg/ Sodium (Chloride) 250 mls @ 125 mls/hr IV ONCE ONE Stop: 08/15/24 17:56 Last Admin: 08/15/24 16:31 Dose: 125 mls/hr Ibuprofen (Ibuprofen 400 Mg Tablet) 400 mg PO TIDWM [facility] Melatonin (Melatonin 3 Mg Tablet) 6 mg PO BEDTIME PRN PRN Reason: Insomnia Sodium Chloride (0.9 % Sodium Chloride Flush 3 Ml Syringe) 3 ml IVFLUSH QSHIFT [facility] Home Medications ?Medication ?Instructions ?Recorded ?Confirmed ?Last Taken ?Type aspirin 81 mg chewable tablet 1 tab PO DAILY 03/09/20 08/02/24 02/04/24 History nebulizers 07/15/23 08/02/24 Unknown History cholecalciferol (vitamin D3) 50 50 mcg PO DAILY 09/18/23 08/02/24 02/04/24 History mcg (2,000 unit) capsule (Vitamin D3) acetaminophen 650 mg 650 mg PO Q6H PRN pain or fever 10/08/23 08/02/24 Unknown History tablet,extended release alendronate 70 mg tablet 70 mg PO MO 10/08/23 08/02/24 02/02/24 History metformin 500 mg tablet 500 mg PO DAILY 10/08/23 08/02/24 02/04/24 History carvedilol 25 mg tablet 25 mg PO BID 12/11/23 08/02/24 02/04/24 History atorvastatin 10 mg tablet 10 mg PO BEDTIME 01/19/24 08/02/24 02/04/24 History albuterol sulfate 90 mcg/actuation 2 puff inhalation Q4H PRN 02/04/24 08/02/24 Unknown History aerosol inhaler shortness of breath or wheezing bisacodyl 5 mg tablet,delayed 10 mg PO BEDTIME 02/04/24 08/02/24 02/03/24 History release (Dulcolax (bisacodyl)) amoxicillin 875 mg-potassium 1 tab PO BID 08/15/24 Unknown History clavulanate 125 mg tablet diltiazem HCl 300 mg 300 mg PO DAILY 08/15/24 Unknown History capsule,extended release 24 hr docusate sodium 100 mg capsule 100 mg PO BIDWM 08/15/24 Unknown History dupilumab 300 mg/2 mL subcutaneous 300 mg subcut Q2W 08/15/24 Unknown History pen injector (Dupixent) hydrochlorothiazide 12.5 mg tablet 12.5 mg PO DAILY 08/15/24 Unknown History ibuprofen 800 mg tablet 800 mg PO Q6H PRN mild pain 08/15/24 Unknown History linaclotide 290 mcg capsule 290 mcg PO DAILY 08/15/24 Unknown History (Linzess) lisinopril 40 mg tablet 40 mg PO DAILY 08/15/24 Unknown History omeprazole 20 mg capsule,delayed 20 mg PO DAILY@0630 08/15/24 Unknown History release Physical Exam Vital Signs and Narrative: Vital Signs: Last Vital Signs Temp 98.1 F 08/15/24 13:43 Pulse 101 H 08/15/24 13:43 Resp 20 08/15/24 16:26 BP 105/76 08/15/24 13:43 Pulse Ox 95 08/15/24 14:04 O2 Del Method Nasal Cannula 08/15/24 14:04 O2 Flow Rate 2 08/15/24 14:04 BMI result Body Mass Index 35.5 General: AOx3, no acute distress Resp: CTA bilaterally though diminished CVS: S1, S2, RRR Chest: Anterior left chest wall tender to palpation GI: +BS, NT, no distention Skin: Warm, dry Neuro: Cranial nerves II-XII grossly intact bilaterally. Motor grossly intact bilaterally Extremities: No edema Psych: Appropriate affect Results Labs 08/15/24 14:04 08/15/24 14:04 Labs: Laboratory Results - last 24 hr 08/15/24 08/15/24 14:04 14:13 MCV 87.6 MCH 29.7 MCHC 34.0 RDW 12.6 Plt Count 334 D MPV 10.4 Immature Gran % (Auto) 0.3 Neut % (Auto) 58.8 Lymph % (Auto) 17.2 L [place] % (Auto) 8.5 Eos % (Auto) 14.5 H Baso % (Auto) 0.7 Lymph # (Auto) 1.7 [place] # (Auto) 0.9 Eos # (Auto) 1.5 H Baso # (Auto) 0.1 Abs Immat Gran (auto) 0.03 Absolute Neuts (auto) 5.9 Absolute Nucleated RBC 0.000 Nucleated RBC % (auto) 0.0 Anion Gap 13 Estim Creat Clear Calc 76.5 Estimated GFR > 60 Random Glucose 131 H Lactic Acid 1.6 Calcium 9.4 Total Bilirubin 1.5 H AST 17 ALT 11 Alkaline Phosphatase 81 B-Natriuretic Peptide < 10 Total Protein 7.1 Albumin 3.8 Influenza Type A (PCR) NEGATIVE Influenza Type B (PCR) NEGATIVE RSV RNA Qual (PCR) NEGATIVE SARS-CoV-2 RNA (RT-PCR) NEGATIVE Assessment and Plan (1) Atypical chest pain: Status: Acute Plan Pt is a 74-year-old [place]er-speaking female with a PMH significant for asthma/COPD overlap syndrome not on home O2, HTN, xxg-eglzsnc-uoghoqgxy type 2 diabetes, GERD, mood disorder, and OTILIO on CPAP?who presents to the ED with?intermittent left-sided chest pain x1 week. Pt will be admitted to the hospital under observation for treatment and further evaluation of atypical chest pain concerning for costochondritis. Atypical chest pain Intermittent left-sided chest pain x1 week Pain described as sharp and stabbing, nonradiating, lasts 4-5 minutes with multiple episodes per hour Anterior left chest wall tender to palpation Initial troponin negative, EKG without ischemic changes Concerning for costochondritis secondary to RSV and pneumonia infections Will treat with ibuprofen 400 mg t.i.d. with meals Repeat troponin Cardiology consult Monitor on telemetry Community-acquired pneumonia Likely post viral Pt initially diagnosed with pneumonia on 08/06, discharged on doxycycline 100 mg p.o. b.i.d. times 10 days Imaging today with left lower lobe pneumonia, similar to imaging on 08/06 No sepsis: 1 episode of tachycardia, but no fever, tachypnea, or leukocytosis; lactic acid WNL No hypoxia Continue ceftriaxone and azithromycin x3 more days to complete initial antibiotic course Asthma/COPD Not in acute exacerbation Continue home inhalers Qpq-dtsctjb-utnccbumd type 2 diabetes Sliding-scale insulin Hold metformin Diabetic diet HTN Continue carvedilol, diltiazem, hydrochlorothiazide, and lisinopril GERD Continue PPI OTILIO CPAP at night Mood disorder Continue home mood stabilizers Full Code Attending:?Dr. Reed DVT Prophylaxis: Lovenox Pt will be admitted to the hospital under observation for treatment and further evaluation of atypical chest pain concerning for costochondritis in the setting of recent RSV and pneumonia infections. Quality Stroke Does the patient have a stroke diagnosis?: No VTE Prior VTE?: No VTE Risk Level:: Medical - moderate - high VTE Device Contraindication: Treatment Not Indicated VTE Drug Contraindication: N/A - Med Ordered
[2024-08-15] MEDS: Ibuprofen 400 MG TABLET PO (17:06)
--- NOTE | 2024-08-15 17:11 | PC.NURSE ---
Walking oxygen saturation was between 92-94% RA, periods of SOB and pain while breathing. MD made aware.
[2024-08-15] MEDS: Enoxaparin Sodium 40 MG/0.4 ML SYRINGE SUBCUT (17:18)
--- NOTE | 2024-08-15 17:18 | PC.NURSE ---
Per MD , best to keep pt off oxygen.
--- NOTE | 2024-08-15 17:51 | PHA.MEDREC ---
Pharmacy Consult ? Medication Reconciliation Pharmacy has completed the medication reconciliation. Utilized translator and interpreter services. Spoke to pt to confirm meds. Per pt, only was taking doxycycline, montelukast, lisinopril, and augmentin consistently this past week. Pt also reports no longer using Spiriva or alendronate and reports using both Breo and Symbicort. Unsure if all meds that patient reported are currently still being taken by them, but confirmed since patient was firm on actively taking the meds.
[2024-08-15 20:50] LABS: Glucose, Whole Blood 178 mg/dL (60-115)
--- NOTE | 2024-08-15 21:06 | PC.NURSE ---
Pt. requesting pain medication, messaged MD of this information, no new orders at this time.
--- NOTE | 2024-08-15 21:46 | PC.NURSE ---
Awaiting med from pharm.
[2024-08-15] MEDS: Atorvastatin Calcium 10 MG TABLET PO (21:51)
[2024-08-15] MEDS: Carbidopa/Levodopa 25/100 TABLET 1 TAB PO (21:51)
[2024-08-15] MEDS: traMADoL HCL 50 MG TABLET 25 MG PO (21:51)
[2024-08-15] MEDS: Magnesium Oxide 400 MG TABLET PO (21:52)
[2024-08-15] MEDS: Montelukast Sodium 10 MG TABLET PO (21:52)
--- NOTE | 2024-08-15 22:15 | MHC.EDTECH ---
patient was stating that she was in 10/10 chest pain. This ghost writer spoke with JOHN Hays about patients concerns
[2024-08-15] MEDS: Imipramine HCl 50 MG TABLET 100 MG PO (22:38)
--- NOTE | 2024-08-15 22:50 | PC.NURSE ---
Pt. ambulated independently with no issues to the restroom.
--- NOTE | 2024-08-15 23:04 | PC.NURSE ---
Report given to JOHN Davila.
[2024-08-16] VITALS (7 sets, daily range): BP systolic 97–138; BP diastolic 53–78; PULSE 75–84; RESP 15–22; TEMP 36.5–36.8; O2SAT 93–97
--- NOTE | 2024-08-16 | ECG_ITS ---
Test Reason : CP Blood Pressure : */* mmHG Vent. Rate : 82 BPM Atrial Rate : 82 BPM P-R Int : 142 ms QRS Dur : 138 ms QT Int : 406 ms P-R-T Axes : 71 12 43 degrees QTcB Int : 474 ms Normal sinus rhythm Right bundle branch block Abnormal ECG When compared with ECG of 15-Aug-2024 13:43, No significant change was found Referred By: Generic ED Physician Electronically Signed By: Dimitris Marquez
--- NOTE | 2024-08-16 00:22 | PC.RT ---
Patient declining hospital cpap at this time.
[2024-08-16 01:36] LABS: Troponin-I High Sensitivity 3.6 ng/L (<3.5-17.0)
[2024-08-16 05:29] LABS: Troponin-I High Sensitivity 3.2 ng/L (<3.5-17.0)
[2024-08-16] MEDS: Prochlorperazine Edisylate 10 MG/2 ML VIAL 5 MG IVPUSH (06:35)
[2024-08-16] MEDS: Famotidine/PF 20 MG/2 ML VIAL IVPUSH (06:36)
[2024-08-16 07:30] LABS: Glucose, Whole Blood 151 mg/dL (60-115)
--- NOTE | 2024-08-16 07:41 | PC.NURSE ---
Pt refusing her meds this morning, this RN spoke to pt with blacksmith supervisor. Pt reports they have been giving her too many meds here and it is making her feel worse. Pt reports she only wants to take her lisinopril and nothing else. Not eating her breakfast, reporting nausea still persists. Pt educated on importance of her medicine, still remains that she only wants to take her lisinopril
[2024-08-16] MEDS: lisinopriL 40 MG TABLET PO (08:06)
[2024-08-16] MEDS: 0.9 % Sodium Chloride Flush 3 ML SYRINGE IVFLUSH (08:06)
--- NOTE | 2024-08-16 08:34 | PC.NURSE ---
Pt continues to refuse all her other morning meds, reports she will tell us later if she feels well enough to take them. This was confirmed with Family and transplant registered nurse.
[2024-08-16 09:26] LABS: Adenovirus PCR Not Detected (Not Detect.); Bordetella parapertussis PCR Not Detected (Not Detect.); Bordetella pertussis PCR Not Detected (Not Detect.); Chlamydia pneumoniae PCR Not Detected (Not Detect.); Coronavirus 229E PCR Not Detected (Not Detect.); Coronavirus HKU1 PCR Not Detected (Not Detect.); Coronavirus NL63 PCR Not Detected (Not Detect.); Coronavirus OC43 PCR Not Detected (Not Detect.); Human metapneumovirus PCR Not Detected (Not Detect.); Influenza A PCR Not Detected (Not Detect.); Influenza B PCR Not Detected (Not Detect.); Mycoplasma pneumoniae PCR Not Detected (Not Detect.); Parainfluenza 1 PCR Not Detected (Not Detect.); Parainfluenza 2 PCR Not Detected (Not Detect.); Parainfluenza 3 PCR Not Detected (Not Detect.); Parainfluenza 4 PCR Not Detected (Not Detect.); RSV PCR Not Detected (Not Detect.); Rhino/Enterovirus PCR Not Detected (Not Detect.)
[2024-08-16 09:28] LABS: Influenza A H1 PCR Not Detected (Not Detect.); Influenza A H1-2009 PCR Not Detected (Not Detect.); Influenza A H3 PCR Not Detected (Not Detect.); SARS-CoV-2 PCR Not Detected (Not Detect.)
--- NOTE | 2024-08-16 10:52 | HO.PM.IMPN ---
Subjective Subjective Date of Service: 08/16/24 Interval History: chest pain , pneumonia generalised weak Review of Systems chest pain -reproducable/pleuritic:improving sob seems to be improving Physical Exam Vital Signs: Vital Signs: Last Vital Signs Temp 98.2 F 08/16/24 08:00 Pulse 78 08/16/24 08:00 Resp 15 08/16/24 08:00 BP 138/75 08/16/24 08:06 Pulse Ox 95 08/16/24 08:00 O2 Del Method Room Air 08/16/24 08:00 O2 Flow Rate 2 08/15/24 15:30 BMI result Body Mass Index 35.5 Appearance: Alert.? Oriented X3.? cvs: rrr, [id number]. res: air entry diminshed left lower lung. abd: no rebound or guarding ,nt, bs present. ext pulses present , no cyanosis . neuro: axo3 , nonfocal. Objective Data Active Medications Acetaminophen (Acetaminophen 325 Mg Tablet) 650 mg PO Q6H PRN PRN Reason: Pain, Mild 1-3,fever,headache Albuterol Sulfate (Albuterol Sulfate 90 Mcg 8 Gm Inhaler) 2 puff INHALE Q4H PRN PRN Reason: shortness of breath or wheezing Lipase/Protease/Amylase (Lipase/Prot/Amylase 24/76/120k 1 Cap Capsule.) 1 cap PO QIDACHS [facility] Last Admin: 08/16/24 07:40 Dose: Not Given Documented By: GERDA Non-Admin Reason: Patient Refused Aspirin (Aspirin 81 Mg Tab.Chew) 81 mg PO DAILY [facility] Last Admin: 08/16/24 08:35 Dose: Not Given Documented By: GERDA Non-Admin Reason: Patient Refused Atorvastatin Calcium (Atorvastatin Calcium 10 Mg Tablet) 10 mg PO BEDTIME [facility] Last Admin: 08/15/24 21:51 Dose: 10 mg Documented By: DIAZ Bisacodyl (Bisacodyl 5 Mg Tablet.) 10 mg PO BEDTIME PRN PRN Reason: Constipation Calcium Carbonate (Calcium Carbonate 750 Mg Tab.Chew) 750 mg PO Q4H PRN PRN Reason: Heartburn Carbidopa/Levodopa (Carbidopa/Levodopa 25/100 Tablet) 1 tab PO BID [facility] Last Admin: 08/16/24 08:36 Dose: Not Given Documented By: GERDA Non-Admin Reason: Patient Refused Carvedilol (Carvedilol 25 Mg Tablet) 25 mg PO BID [facility]; Protocol Last Admin: 08/16/24 08:35 Dose: Not Given Documented By: GERDA Non-Admin Reason: Patient Refused Ceftriaxone Sodium (Ceftriaxone Sodium 1 Gm Vial) 1 gm IVPUSH Q24H [facility] Dextrose (Dextrose 50 % 25 Gm/50 Ml Syringe) 25 gm IVPUSH Q15M PRN; Protocol PRN Reason: per Hypoglycemia Standing Ord. Diltiazem HCl (Diltiazem Hcl Cd 300 Mg Cap.Er.24h) 300 mg PO DAILY [facility]; Protocol Last Admin: 08/16/24 08:35 Dose: Not Given Documented By: GERDA Non-Admin Reason: Patient Refused Docusate Sodium (Docusate Sodium 100 Mg Capsule) 100 mg PO BIDWM [facility] Last Admin: 08/16/24 07:40 Dose: Not Given Documented By: GERDA Non-Admin Reason: Patient Refused Enoxaparin Sodium (Enoxaparin Sodium 40 Mg/0.4 Ml Syringe) 40 mg SUBCUT Q24H [facility] Last Admin: 08/15/24 17:18 Dose: 40 mg Documented By: DIAZ Glucose (Glucose Gel 15 Gm Gel..Gram.) 15 gm PO Q15M PRN; Protocol PRN Reason: per Hypoglycemia Standing Ord. Guaifenesin (Guaifenesin 200 Mg/10 Ml 10 Ml Liquid) 5 ml PO Q6H PRN PRN Reason: Cough Hydrochlorothiazide (Hydrochlorothiazide 12.5 Mg Tablet) 12.5 mg PO DAILY [facility]; Protocol Last Admin: 08/16/24 08:35 Dose: Not Given Documented By: GERDA Non-Admin Reason: Patient Refused Azithromycin 500 mg/ Sodium (Chloride) 250 mls @ 125 mls/hr IV Q24H [facility] Ibuprofen (Ibuprofen 400 Mg Tablet) 400 mg PO TIDWM [facility] Last Admin: 08/16/24 07:40 Dose: Not Given Documented By: GERDA Non-Admin Reason: Patient Refused Imipramine HCl (Imipramine Hcl 50 Mg Tablet) 100 mg PO BEDTIME [facility] Last Admin: 08/15/24 22:38 Dose: 100 mg Documented By: DIAZ Insulin Human Lispro (Insulin Lispro 100 Unit/Ml 3 Ml Vial) 0 unit SUBCUT QIDACHS [facility]; Protocol Last Admin: 08/16/24 07:40 Dose: Not Given Documented By: GERDA Non-Admin Reason: Patient Refused Lisinopril (Lisinopril 40 Mg Tablet) 40 mg PO DAILY [facility]; Protocol Last Admin: 08/16/24 08:06 Dose: 40 mg Documented By: GERDA Loratadine (Loratadine 10 Mg Tablet) 10 mg PO DAILY [facility] Last Admin: 08/16/24 08:35 Dose: Not Given Documented By: GERDA Non-Admin Reason: Patient Refused Magnesium Hydroxide (Milk Of Magnesia 30 Ml Oral.Susp) 30 ml PO DAILY PRN PRN Reason: Constipation Magnesium Oxide (Magnesium Oxide 400 Mg Tablet) 400 mg PO BEDTIME [facility] Last Admin: 08/15/24 21:52 Dose: 400 mg Documented By: DIAZ Melatonin (Melatonin 3 Mg Tablet) 6 mg PO BEDTIME PRN PRN Reason: Insomnia Montelukast Sodium (Montelukast Sodium 10 Mg Tablet) 10 mg PO BEDTIME [facility] Last Admin: 08/15/24 21:52 Dose: 10 mg Documented By: DIAZ Nitroglycerin (Nitroglycerin 0.4 Mg Tab.Subl) 0.4 mg SUBLINGUAL Q5MX3 PRN PRN Reason: Chest Pain Omeprazole (Omeprazole 20 Mg Capsule.Dr) 20 mg PO DAILY@0630 [facility] Last Admin: 08/16/24 07:40 Dose: Not Given Documented By: GERDA Non-Admin Reason: Patient Refused Roflumilast (Roflumilast 500 Mcg Tablet) 500 mcg PO DAILY [facility] Last Admin: 08/16/24 08:35 Dose: Not Given Documented By: GERDA Non-Admin Reason: Patient Refused Sodium Chloride (0.9 % Sodium Chloride Flush 3 Ml Syringe) 3 ml IVFLUSH QSHIFT [facility] Last Admin: 08/16/24 08:06 Dose: 3 ml Documented By: GERDA Tiotropium Bird In Hand (Tiotropium Bird In Hand 2.5 Mcg 1 Puff/2.5 Mcg Mist.Inhal) 2 puff INHALE RDAILY [facility] Last Admin: 08/16/24 08:24 Dose: Not Given Documented By: JAMEE Non-Admin Reason: pharmacy called for med Vitamin D (Cholecalciferol (Vitamin D3) 25 Mcg Tablet) 50 mcg PO DAILY [facility] Last Admin: 08/16/24 08:35 Dose: Not Given Documented By: GERDA Non-Admin Reason: Patient Refused Labs 08/15/24 14:04 08/15/24 14:04 Labs: Laboratory Results - last 24 hr 08/15/24 08/15/24 08/15/24 14:04 14:13 20:46 MCV 87.6 MCH 29.7 MCHC 34.0 RDW 12.6 Plt Count 334 D MPV 10.4 Immature Gran % (Auto) 0.3 Neut % (Auto) 58.8 Lymph % (Auto) 17.2 L [place] % (Auto) 8.5 Eos % (Auto) 14.5 H Baso % (Auto) 0.7 Lymph # (Auto) 1.7 [place] # (Auto) 0.9 Eos # (Auto) 1.5 H Baso # (Auto) 0.1 Abs Immat Gran (auto) 0.03 Absolute Neuts (auto) 5.9 Absolute Nucleated RBC 0.000 Nucleated RBC % (auto) 0.0 Anion Gap 13 Estim Creat Clear Calc 76.5 Estimated GFR > 60 POC Glucose 178 H Random Glucose 131 H Lactic Acid 1.6 Calcium 9.4 Total Bilirubin 1.5 H AST 17 ALT 11 Alkaline Phosphatase 81 B-Natriuretic Peptide < 10 Total Protein 7.1 Albumin 3.8 Respiratory Panel Chu Adenovirus (Rapid PCR) B.pert (TEM-PCR) B.parapertussis DNA PCR C. pneumoniae DNA (PCR) Coronavirus OC43 (PCR) Coronavirus HKU1 (PCR) Coronavirus 229E (PCR) Coronavirus NL63 (PCR) Human Metapneumovir PCR Influenza A (RT-PCR) Influenza A (H1) PCR Influ A (H1/09) PCR Influenza A (H3) PCR Influenza Type A (PCR) NEGATIVE Influenza B (RT-PCR) Influenza Type B (PCR) NEGATIVE M. pneumoniae (PCR) Parainfluenza 1 (PCR) Parainfluenza 2 (PCR) Parainfluenza 3 (PCR) Parainfluenza 4 (PCR) RSV (PCR) RSV RNA Qual (PCR) NEGATIVE Entero/Rhino (PCR) SARS-CoV-2 RNA (RT-PCR) NEGATIVE 08/16/24 08/16/24 07:26 07:59 MCV MCH MCHC RDW Plt Count MPV Immature Gran % (Auto) Neut % (Auto) Lymph % (Auto) [place] % (Auto) Eos % (Auto) Baso % (Auto) Lymph # (Auto) [place] # (Auto) Eos # (Auto) Baso # (Auto) Abs Immat Gran (auto) Absolute Neuts (auto) Absolute Nucleated RBC Nucleated RBC % (auto) Anion Gap Estim Creat Clear Calc Estimated GFR POC Glucose 151 H Random Glucose Lactic Acid Calcium Total Bilirubin AST ALT Alkaline Phosphatase B-Natriuretic Peptide Total Protein Albumin Respiratory Panel Chu See Note Adenovirus (Rapid PCR) Not Detected B.pert (TEM-PCR) Not Detected B.parapertussis DNA PCR Not Detected C. pneumoniae DNA (PCR) Not Detected Coronavirus OC43 (PCR) Not Detected Coronavirus HKU1 (PCR) Not Detected Coronavirus 229E (PCR) Not Detected Coronavirus NL63 (PCR) Not Detected Human Metapneumovir PCR Not Detected Influenza A (RT-PCR) Not Detected Influenza A (H1) PCR Not Detected Influ A (H1/09) PCR Not Detected Influenza A (H3) PCR Not Detected Influenza Type A (PCR) Influenza B (RT-PCR) Not Detected Influenza Type B (PCR) M. pneumoniae (PCR) Not Detected Parainfluenza 1 (PCR) Not Detected Parainfluenza 2 (PCR) Not Detected Parainfluenza 3 (PCR) Not Detected Parainfluenza 4 (PCR) Not Detected RSV (PCR) Not Detected RSV RNA Qual (PCR) Entero/Rhino (PCR) Not Detected SARS-CoV-2 RNA (RT-PCR) Not Detected Assessment and Plan (1) Chest pain: Status: Acute (2) Pneumonia: Status: Acute Assessment and Plan: 74-year-old Syrian-speaking female with a PMH significant for asthma/COPD overlap syndrome not on home O2, HTN, bqt-pphlzoy-tslczifhb type 2 diabetes, GERD, mood disorder, and OTILIO on CPAP?who presents to the ED with?intermittent left-sided chest pain x1 week. Pt will be admitted to the hospital under observation for treatment and further evaluation of atypical chest pain . Atypical chest pain Intermittent left-sided chest pain x1 week Pain described as sharp and stabbing, nonradiating, lasts 4-5 minutes with multiple episodes per hour Anterior left chest wall tender to palpation Initial troponin negative, EKG without ischemic changes Concerning MS Type pain plan: trops flat , ekg unchnaged tele monitering cardiology eval Community-acquired pneumonia Likely post viral Pt initially diagnosed with pneumonia on 08/06, discharged on doxycycline 100 mg p.o. b.i.d. times 10 days Imaging today with left lower lobe pneumonia, similar to imaging on 08/06 No sepsis: 1 episode of tachycardia, but no fever, tachypnea, or leukocytosis; lactic acid WNL No hypoxia Continue ceftriaxone and azithromycin since still has symptoms, might need 1 week of more antibiotics. Asthma/COPD Not in acute exacerbation Continue home inhalers Xih-xxpqodr-yttzxrlbz type 2 diabetes Sliding-scale insulin Hold metformin Diabetic diet HTN Continue carvedilol, diltiazem, hydrochlorothiazide, and lisinopril GERD Continue PPI OTILIO CPAP at night Mood disorder Continue home mood stabilizers Full Code DVT Prophylaxis: Lovenox Quality Stroke Does the patient have a stroke diagnosis?: No VTE Prior VTE?: No VTE Risk Level:: Medical - moderate - high VTE Device Contraindication: Treatment Not Indicated VTE Drug Contraindication: N/A - Med Ordered
[2024-08-16 12:12] LABS: Glucose, Whole Blood 85 mg/dL (60-115)
--- NOTE | 2024-08-16 12:17 | PC.NURSE ---
poc blood glucose 85, pt given 2 8oz cups of juice, will recheck sugar in 15 minutes. Pt AA&Ox4. denies hypoglycemic sxs.
[2024-08-16 12:51] LABS: Glucose, Whole Blood 116 mg/dL (60-115)
[2024-08-16] MEDS: Lipase/Prot/Amylase 24/76/120K 1 CAP CAPSULE.DR PO (13:24)
[2024-08-16] MEDS: Ibuprofen 400 MG TABLET PO (13:24)
--- NOTE | 2024-08-16 13:31 | PM.DS ---
DS: Providers Provider Date of Service: 08/16/24 Date of admission: 08/15/24 16:49 Date of discharge: 08/16/24 Primary care physician: Mary Flores MD Consults: 08/15/24 16:46 Consult to Cardiology Routine Consulting Provider: [facility] Reason for consultation: Atypical chest pain Attending physician on discharge: Meliza Reed Discharging clinician: Meliza Reed DS: Diagnosis Discharge Diagnosis (1) Chest pain: Status: Acute (2) Pneumonia: Status: Acute DS: Summary Hospital Course Hospital Course: HPI:74-year-old Citizen [place]-speaking female with a PMH significant for asthma/COPD overlap syndrome not on home O2, HTN, [id number] type 2 diabetes, GERD, mood disorder, and OTILIO on CPAP?who presents to the ED with?intermittent left-sided chest pain x1 week. Pt has recently had multiple pulmonary infections, including testing positive for RSV on 02/02/2024 and then being treated for post viral pneumonia on 08/06/2024 with doxycycline x10 days. Since then pt has been complaining of intermittent left-sided nonradiating chest pain. Pain is described as sharp and stabbing, lasting 4-5 minutes long, and occurring multiple times per hour. Pain worsened with deep breathing. Pt also complaining of SOB and difficulty breathing secondary to pain. Family is at bedside who report pt has been compliant with home medications, including antibiotics. Currently they do not feel safe bring pt home. Pt denies any other acute medical complaints. No fever, chills, nausea, vomiting, abdominal pain. In the ED pt was afebrile, but initially tachycardic up to 101, satting at 93% on RA. Labs were grossly unremarkable and around baseline for pt. No leukocytosis. Stable H&H. No significant electrolyte abnormalities. Renal and hepatic function WNL and baseline. Initial troponin negative. BNP negative. Lactic acid WNL. Tested negative for flu, COVID, RSV. CXR showed left basilar pneumonia with parapneumonic effusion similar to prior on 08/06. Chest CTA negative for pulmonary embolus, but showed left basilar pneumonia with small left pleural effusion similar to prior CT on 08/06/2024. EKG demonstrated normal sinus rhythm with right bundle branch block, similar to previous. Pt was treated with fentanyl, ceftriaxone, and azithromycin. Pt will be admitted to the hospital under observation for treatment and further evaluation of atypical chest pain concerning for musculocutaneous type pain. Hospital course: Patient was admitted to the hospital because of atypical chest pain , she was recently in ED for pneumonia : Chest imaging with CTA shows left lower lobe pneumonia similar to before and small pleural effusion: Patient is started on pain medication and IV antibiotics-chest pain seems to be improved pain medication, patient not hypoxic, no cough or fever. Chest CT changes likely due to the same pneumonia changes a week ago on x-ray. Patient seen by Cardiology: Troponin negative, EKG seems fine, no further workup .chest pain likely due to underlying pneumonia. Pt evaluated patient-no therapy need at this time. plan: complete home augmentin course patient has at home. In addition continue ibuprofen for pain. Please repeat chest imaging in 3-4 weeks to see resolution of pneumonia. Above management discussed with the patient in detail length with the help of licensed clinician, she understand and in agreement with the above plan, time spent 40 minute. Time Attestation Total time managing care of this patient today: 40 mintues. Discharge Coordination Time (in mins): 40 min Quality: Safe Use of Opioids Does Pt have an Active Cancer Diagnosis on the Problem List?: No Quality: Stroke Does the patient have a stroke diagnosis?: No Physical Exam Vital Signs: Vital Signs: Last Vital Signs Temp 97.8 F 08/16/24 12:15 Pulse 77 08/16/24 12:15 Resp 16 08/16/24 12:15 BP 124/75 08/16/24 12:15 Pulse Ox 96 08/16/24 12:15 O2 Del Method Room Air 08/16/24 12:15 O2 Flow Rate 2 08/15/24 15:30 BMI result Body Mass Index 35.5 Appearance: Alert.? Oriented X3.? cvs: rrr, [id number]. res: air entry improving ,no rales or wheezing. abd: no rebound or guarding ,nt, bs present. ext pulses present , no cyanosis . neuro: axo3 , nonfocal. DS: Data Data Completed and Pending Completed studies during hospitalization [Text1]: Procedures Resection of Gallbladder, Percutaneous Endoscopic Approach (10/08/23) Labs on day of discharge: Laboratory Results - last 24 hr 08/15/24 08/15/24 08/15/24 14:04 14:13 17:19 WBC 10.0 RBC 4.74 Hgb 14.1 Hct 41.5 MCV 87.6 MCH 29.7 MCHC 34.0 RDW 12.6 Plt Count 334 D MPV 10.4 Immature Gran % (Auto) 0.3 Neut % (Auto) 58.8 Lymph % (Auto) 17.2 L [place] % (Auto) 8.5 Eos % (Auto) 14.5 H Baso % (Auto) 0.7 Lymph # (Auto) 1.7 [place] # (Auto) 0.9 Eos # (Auto) 1.5 H Baso # (Auto) 0.1 Abs Immat Gran (auto) 0.03 Absolute Neuts (auto) 5.9 Absolute Nucleated RBC 0.000 Nucleated RBC % (auto) 0.0 Sodium 139 Potassium 3.8 Chloride 107 Carbon Dioxide 23 Anion Gap 13 BUN 12 Creatinine 0.68 Estim Creat Clear Calc 76.5 Estimated GFR > 60 POC Glucose Random Glucose 131 H Lactic Acid 1.6 Calcium 9.4 Total Bilirubin 1.5 H AST 17 ALT 11 Alkaline Phosphatase 81 Troponin I High Sens < 2.7 7.0 D B-Natriuretic Peptide < 10 Total Protein 7.1 Albumin 3.8 Respiratory Panel Chu Adenovirus (Rapid PCR) B.pert (TEM-PCR) B.parapertussis DNA PCR C. pneumoniae DNA (PCR) Coronavirus OC43 (PCR) Coronavirus HKU1 (PCR) Coronavirus 229E (PCR) Coronavirus NL63 (PCR) Human Metapneumovir PCR Influenza A (RT-PCR) Influenza A (H1) PCR Influ A (H1/09) PCR Influenza A (H3) PCR Influenza Type A (PCR) NEGATIVE Influenza B (RT-PCR) Influenza Type B (PCR) NEGATIVE M. pneumoniae (PCR) Parainfluenza 1 (PCR) Parainfluenza 2 (PCR) Parainfluenza 3 (PCR) Parainfluenza 4 (PCR) RSV (PCR) RSV RNA Qual (PCR) NEGATIVE Entero/Rhino (PCR) SARS-CoV-2 RNA (RT-PCR) NEGATIVE 08/15/24 08/16/24 08/16/24 20:46 01:08 04:32 WBC RBC Hgb Hct MCV MCH MCHC RDW Plt Count MPV Immature Gran % (Auto) Neut % (Auto) Lymph % (Auto) [place] % (Auto) Eos % (Auto) Baso % (Auto) Lymph # (Auto) [place] # (Auto) Eos # (Auto) Baso # (Auto) Abs Immat Gran (auto) Absolute Neuts (auto) Absolute Nucleated RBC Nucleated RBC % (auto) Sodium Potassium Chloride Carbon Dioxide Anion Gap BUN Creatinine Estim Creat Clear Calc Estimated GFR POC Glucose 178 H Random Glucose Lactic Acid Calcium Total Bilirubin AST ALT Alkaline Phosphatase Troponin I High Sens 3.6 3.2 B-Natriuretic Peptide Total Protein Albumin Respiratory Panel Chu Adenovirus (Rapid PCR) B.pert (TEM-PCR) B.parapertussis DNA PCR C. pneumoniae DNA (PCR) Coronavirus OC43 (PCR) Coronavirus HKU1 (PCR) Coronavirus 229E (PCR) Coronavirus NL63 (PCR) Human Metapneumovir PCR Influenza A (RT-PCR) Influenza A (H1) PCR Influ A (H1/09) PCR Influenza A (H3) PCR Influenza Type A (PCR) Influenza B (RT-PCR) Influenza Type B (PCR) M. pneumoniae (PCR) Parainfluenza 1 (PCR) Parainfluenza 2 (PCR) Parainfluenza 3 (PCR) Parainfluenza 4 (PCR) RSV (PCR) RSV RNA Qual (PCR) Entero/Rhino (PCR) SARS-CoV-2 RNA (RT-PCR) 08/16/24 08/16/24 08/16/24 07:26 07:59 12:08 WBC RBC Hgb Hct MCV MCH MCHC RDW Plt Count MPV Immature Gran % (Auto) Neut % (Auto) Lymph % (Auto) [place] % (Auto) Eos % (Auto) Baso % (Auto) Lymph # (Auto) [place] # (Auto) Eos # (Auto) Baso # (Auto) Abs Immat Gran (auto) Absolute Neuts (auto) Absolute Nucleated RBC Nucleated RBC % (auto) Sodium Potassium Chloride Carbon Dioxide Anion Gap BUN Creatinine Estim Creat Clear Calc Estimated GFR POC Glucose 151 H 85 Random Glucose Lactic Acid Calcium Total Bilirubin AST ALT Alkaline Phosphatase Troponin I High Sens B-Natriuretic Peptide Total Protein Albumin Respiratory Panel Chu See Note Adenovirus (Rapid PCR) Not Detected B.pert (TEM-PCR) Not Detected B.parapertussis DNA PCR Not Detected C. pneumoniae DNA (PCR) Not Detected Coronavirus OC43 (PCR) Not Detected Coronavirus HKU1 (PCR) Not Detected Coronavirus 229E (PCR) Not Detected Coronavirus NL63 (PCR) Not Detected Human Metapneumovir PCR Not Detected Influenza A (RT-PCR) Not Detected Influenza A (H1) PCR Not Detected Influ A () PCR Not Detected Influenza A (H3) PCR Not Detected Influenza Type A (PCR) Influenza B (RT-PCR) Not Detected Influenza Type B (PCR) M. pneumoniae (PCR) Not Detected Parainfluenza 1 (PCR) Not Detected Parainfluenza 2 (PCR) Not Detected Parainfluenza 3 (PCR) Not Detected Parainfluenza 4 (PCR) Not Detected RSV (PCR) Not Detected RSV RNA Qual (PCR) Entero/Rhino (PCR) Not Detected SARS-CoV-2 RNA (RT-PCR) Not Detected 08/16/24 12:46 WBC RBC Hgb Hct MCV MCH MCHC RDW Plt Count MPV Immature Gran % (Auto) Neut % (Auto) Lymph % (Auto) [place] % (Auto) Eos % (Auto) Baso % (Auto) Lymph # (Auto) [place] # (Auto) Eos # (Auto) Baso # (Auto) Abs Immat Gran (auto) Absolute Neuts (auto) Absolute Nucleated RBC Nucleated RBC % (auto) Sodium Potassium Chloride Carbon Dioxide Anion Gap BUN Creatinine Estim Creat Clear Calc Estimated GFR POC Glucose 116 H Random Glucose Lactic Acid Calcium Total Bilirubin AST ALT Alkaline Phosphatase Troponin I High Sens B-Natriuretic Peptide Total Protein Albumin Respiratory Panel Chu Adenovirus (Rapid PCR) B.pert (TEM-PCR) B.parapertussis DNA PCR C. pneumoniae DNA (PCR) Coronavirus OC43 (PCR) Coronavirus HKU1 (PCR) Coronavirus 229E (PCR) Coronavirus NL63 (PCR) Human Metapneumovir PCR Influenza A (RT-PCR) Influenza A (H1) PCR Influ A () PCR Influenza A (H3) PCR Influenza Type A (PCR) Influenza B (RT-PCR) Influenza Type B (PCR) M. pneumoniae (PCR) Parainfluenza 1 (PCR) Parainfluenza 2 (PCR) Parainfluenza 3 (PCR) Parainfluenza 4 (PCR) RSV (PCR) RSV RNA Qual (PCR) Entero/Rhino (PCR) SARS-CoV-2 RNA (RT-PCR) Imaging Chest x-ray: Radiologist's impression: cta: 1. No pulmonary embolus. 2. Left basilar pneumonia with small left pleural effusion. 3. Coronary artery disease. Discharge Plan Discharge Anticipated Discharge Date/Time: 08/16/24 12:59 Patient Disposition: Home, Self-Care Discharge Diagnosis: chest pain likely in setting of pneumonia Referrals: Mary Flores MD [Primary Care Provider] - 1 Week Discharge Medications: New lidocaine 5 % adhesive patch,medicated 1 patch topical DAILY Qty: 15 0RF Rx Instructions: leave on most painful area for up to 12 hrs Continued (DME) walker [facility] See Rx Instructions .MEDSUPPLY Qty: 1 0RF Rx Instructions: Folding Front wheeled walker duration 99 days budesonide-formoterol 160-4.5 mcg/actuation HFA aerosol inhaler 2 puff inhalation BID 30 Days Qty: 10.2 11RF Daliresp 500 mcg tablet 500 mcg PO DAILY 30 Days Qty: 30 11RF albuterol sulfate 2.5 mg /3 mL (0.083 %) solution for nebulization 2.5 mg inhalation Q4H PRN (Reason: shortness of breath or wheezing) 30 Days Qty: 360 11RF carbidopa-levodopa 25-100 mg tablet 1 tab PO BID 30 Days Qty: 60 3RF Rx Instructions: 30 minutos antes desayunar y cenar. imipramine HCl 50 mg tablet 100 mg PO BEDTIME Qty: 60 6RF Creon 24,000-76,000 -120,000 unit capsule,delayed release(DR/EC) 1 cap PO QIDACHS 30 Days Qty: 120 6RF Rx Instructions: administer with meals and/or snacks cetirizine 10 mg tablet 10 mg PO DAILY Qty: 90 2RF metformin 500 mg tablet 500 mg PO DAILY acetaminophen 650 mg tablet extended release 650 mg PO Q6H PRN (Reason: pain or fever) bisacodyl [Dulcolax (bisacodyl)] 5 mg tablet,delayed release (DR/EC) 10 mg PO BEDTIME PRN (Reason: Constipation) albuterol sulfate 90 mcg/actuation HFA aerosol inhaler 2 puff inhalation Q4H PRN (Reason: shortness of breath or wheezing) guaifenesin 100 mg/5 mL Liquid 100 mg PO Q6H PRN (Reason: Cough) Qty: 473 0RF (DME) blood-glucose meter [FreeStyle [place] Lite] Kit See Rx Instructions .Route Qty: 1 0RF Rx Instructions: As directed (DME) lancets [FreeStyle Lancets] 28 gauge misc See Rx Instructions .Route Qty: 100 0RF Rx Instructions: As directed doxycycline hyclate 100 mg capsule 100 mg PO BID 10 Days Qty: 20 0RF Rx Instructions: END DATE: 08/15/24@2100 ibuprofen 800 mg tablet 800 mg PO Q6H PRN (Reason: mild pain) diltiazem HCl 300 mg capsule,extended release 24hr 300 mg PO DAILY lisinopril 40 mg tablet 40 mg PO DAILY amoxicillin-pot clavulanate 875-125 mg tablet 1 tab PO BID Rx Instructions: END DATE: 08/20/24 hydrochlorothiazide 12.5 mg tablet 12.5 mg PO DAILY docusate sodium 100 mg capsule 100 mg PO BIDWM omeprazole 20 mg capsule,delayed release(DR/EC) 20 mg PO DAILY@0630 Linzess 290 mcg capsule 290 mcg PO DAILY Dupixent Pen 300 mg/2 mL pen injector 300 mg subcut Q2W montelukast 10 mg tablet 10 mg PO BEDTIME Spiriva Respimat 2.5 mcg/actuation mist 2 puff INHALATION DAILY aspirin 81 mg tablet,chewable 1 tab PO DAILY (DME) nebulizers Misc See Rx Instructions .Route Rx Instructions: As directed atorvastatin 10 mg tablet 10 mg PO BEDTIME cholecalciferol (vitamin D3) [Vitamin D3] 50 mcg (2,000 unit) capsule 50 mcg PO DAILY magnesium oxide 400 mg (241.3 mg magnesium) tablet 400 mg PO BEDTIME 30 Days Qty: 30 6RF Rx Instructions: may hold for loose stools carvedilol 25 mg tablet 25 mg PO BID Discharge Orders: Discharge Order (Routine); Ordered 08/16/24 Ordered By: Meliza Reed Diet: Advance to usual diet Activity on Discharge: As tolerated Stand Alone Forms: Patient Portal Discharge page Print Language: Citizen Of [place] Care Plan Goals: Patient was admitted to the hospital because of atypical chest pain , she was recently in ED for pneumonia : Chest imaging with CTA shows left lower lobe pneumonia similar to before and small pleural effusion: Patient is started on pain medication and IV antibiotics-chest pain seems to be improved pain medication, patient not hypoxic, no cough or fever. Chest CT changes likely due to the same pneumonia changes a week ago on x-ray. Patient seen by Cardiology: Troponin negative, EKG seems fine, no further workup .chest pain likely due to underlying pneumonia. Health Concerns: As above. Please complete antibiotic course patient has at home. In addition continue ibuprofen for pain, lidocaine patch added. Please repeat chest imaging in 3-4 weeks to see resolution of pneumonia Plan of Treatment: As above. Assessment: As above. Patient Instructions: Pneumonia (DC) Discharge Date/Time: 08/16/24 14:31
--- NOTE | 2024-08-16 13:31 | PM.CNCAR ---
History of Present Illness History of Present Illness Date of Service: 08/16/24 Requesting physician: Meliza Reed Chief complaint: Atypical Chest Pain Narrative: Pleasant 74 year female with background history of diabetes, hypertension, asthma COPD overlap syndrome and RSV in January 2024 who is presenting with left-sided sharp chest pain. She said she had severe left-sided pleuritic chest pain yesterday and she came to the emergency department for further assessment. She was diagnosed with pneumonia in the left lung. She is on antibiotics at this stage and is feeling much better. No further chest pains. EKGs showing right bundle-branch block without any dynamic ischemic changes. High sensitive troponin levels are negative. Overall she is feeling better with treatment of pneumonia. [facility] Past Medical History Medical History Atelectasis of left lung Chronic pain syndrome 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 Sacroiliitis Disc degeneration, lumbar OTILIO (obstructive sleep apnea) Back pain HTN (hypertension) Skin cancer (melanoma) GERD (gastroesophageal reflux disease) Depression OTILIO (obstructive sleep apnea) Kidney stones Pulmonary nodule Severe asthma Primary osteoarthritis involving multiple joints Pneumonia Chronic allergic rhinitis (~03/09/20) Asthma-COPD overlap syndrome Family History Family History Father No problems noted. Mother No problems noted. Surgical History Surgical History History of bronchoscopy History of cystoscopy History of laparoscopic appendectomy History of nasal surgery Hx of section Hx of tubal ligation Hx of colonoscopy History of esophagogastroduodenoscopy (EGD) Hx of knee surgery Social History Social History Household Members: Children Housing: Apartment Do you presently have visiting nurse or other home services: Yes (private home health aid) Alcohol intake: never Patient Tobacco Use Status: Never used Tobacco Smoked in Last 30 Days: No e-Cigarette/Vaping Use: Never Used Second Hand Smoke Exposure: No Use of substances other than those prescribed or required for medical reasons: No Advance Directives: Yes Advance Directives on File: Yes Advance Directives Date on File: 10/13/23 Do you have a plan to hurt others: No Plan Nutrition Risks: No Nutritional Risk service: No Current occupational status: disabled Current occupation: rt handed Meds Allergies Allergy/AdvReac Type Severity Reaction Status Date / Time morphine [MORPHINE] Allergy Intermediate NAUSEA, Verified 08/15/24 13:46 rash, redness Active Medications: Current Medications Acetaminophen (Acetaminophen 325 Mg Tablet) 650 mg PO Q6H PRN PRN Reason: Pain, Mild 1-3,fever,headache Albuterol Sulfate (Albuterol Sulfate 90 Mcg 8 Gm Inhaler) 2 puff INHALE Q4H PRN PRN Reason: shortness of breath or wheezing Lipase/Protease/Amylase (Lipase/Prot/Amylase 24/76/120k 1 Cap Capsule.) 1 cap PO QIDACHS [facility] Last Admin: 08/16/24 13:24 Dose: 1 cap Aspirin (Aspirin 81 Mg Tab.Chew) 81 mg PO DAILY [facility] Last Admin: 08/16/24 08:35 Dose: Not Given Atorvastatin Calcium (Atorvastatin Calcium 10 Mg Tablet) 10 mg PO BEDTIME [facility] Last Admin: 08/15/24 21:51 Dose: 10 mg Bisacodyl (Bisacodyl 5 Mg Tablet.) 10 mg PO BEDTIME PRN PRN Reason: Constipation Calcium Carbonate (Calcium Carbonate 750 Mg Tab.Chew) 750 mg PO Q4H PRN PRN Reason: Heartburn Carbidopa/Levodopa (Carbidopa/Levodopa 25/100 Tablet) 1 tab PO BID [facility] Last Admin: 08/16/24 08:36 Dose: Not Given Carvedilol (Carvedilol 25 Mg Tablet) 25 mg PO BID [facility]; Protocol Last Admin: 08/16/24 08:35 Dose: Not Given Ceftriaxone Sodium (Ceftriaxone Sodium 1 Gm Vial) 1 gm IVPUSH Q24H [facility] Dextrose (Dextrose 50 % 25 Gm/50 Ml Syringe) 25 gm IVPUSH Q15M PRN; Protocol PRN Reason: per Hypoglycemia Standing Ord. Diltiazem HCl (Diltiazem Hcl Cd 300 Mg Cap.Er.24h) 300 mg PO DAILY [facility]; Protocol Last Admin: 08/16/24 08:35 Dose: Not Given Docusate Sodium (Docusate Sodium 100 Mg Capsule) 100 mg PO BIDWM [facility] Last Admin: 08/16/24 07:40 Dose: Not Given Enoxaparin Sodium (Enoxaparin Sodium 40 Mg/0.4 Ml Syringe) 40 mg SUBCUT Q24H [facility] Last Admin: 08/15/24 17:18 Dose: 40 mg Glucose (Glucose Gel 15 Gm Gel..Gram.) 15 gm PO Q15M PRN; Protocol PRN Reason: per Hypoglycemia Standing Ord. Guaifenesin (Guaifenesin 200 Mg/10 Ml 10 Ml Liquid) 5 ml PO Q6H PRN PRN Reason: Cough Hydrochlorothiazide (Hydrochlorothiazide 12.5 Mg Tablet) 12.5 mg PO DAILY [facility]; Protocol Last Admin: 08/16/24 08:35 Dose: Not Given Azithromycin 500 mg/ Sodium (Chloride) 250 mls @ 125 mls/hr IV Q24H [facility] Ibuprofen (Ibuprofen 400 Mg Tablet) 400 mg PO TIDWM [facility] Last Admin: 08/16/24 13:24 Dose: 400 mg Imipramine HCl (Imipramine Hcl 50 Mg Tablet) 100 mg PO BEDTIME [facility] Last Admin: 08/15/24 22:38 Dose: 100 mg Insulin Human Lispro (Insulin Lispro 100 Unit/Ml 3 Ml Vial) 0 unit SUBCUT QIDACHS [facility]; Protocol Last Admin: 08/16/24 12:16 Dose: Not Given Lisinopril (Lisinopril 40 Mg Tablet) 40 mg PO DAILY [facility]; Protocol Last Admin: 08/16/24 08:06 Dose: 40 mg Loratadine (Loratadine 10 Mg Tablet) 10 mg PO DAILY [facility] Last Admin: 08/16/24 08:35 Dose: Not Given Magnesium Hydroxide (Milk Of Magnesia 30 Ml Oral.Susp) 30 ml PO DAILY PRN PRN Reason: Constipation Magnesium Oxide (Magnesium Oxide 400 Mg Tablet) 400 mg PO BEDTIME [facility] Last Admin: 08/15/24 21:52 Dose: 400 mg Melatonin (Melatonin 3 Mg Tablet) 6 mg PO BEDTIME PRN PRN Reason: Insomnia Montelukast Sodium (Montelukast Sodium 10 Mg Tablet) 10 mg PO BEDTIME [facility] Last Admin: 08/15/24 21:52 Dose: 10 mg Nitroglycerin (Nitroglycerin 0.4 Mg Tab.Subl) 0.4 mg SUBLINGUAL Q5MX3 PRN PRN Reason: Chest Pain Omeprazole (Omeprazole 20 Mg Capsule.Dr) 20 mg PO DAILY@0630 [facility] Last Admin: 08/16/24 07:40 Dose: Not Given Roflumilast (Roflumilast 500 Mcg Tablet) 500 mcg PO DAILY [facility] Last Admin: 08/16/24 08:35 Dose: Not Given Sodium Chloride (0.9 % Sodium Chloride Flush 3 Ml Syringe) 3 ml IVFLUSH QSHIFT [facility] Last Admin: 08/16/24 08:06 Dose: 3 ml Tiotropium [place] (Tiotropium [place] 2.5 Mcg 1 Puff/2.5 Mcg Mist.Inhal) 2 puff INHALE RDAILY [facility] Last Admin: 08/16/24 08:24 Dose: Not Given Vitamin D (Cholecalciferol (Vitamin D3) 25 Mcg Tablet) 50 mcg PO DAILY [facility] Last Admin: 08/16/24 08:35 Dose: Not Given Home Medications ?Medication ?Instructions ?Recorded ?Confirmed ?Last Taken ?Type aspirin 81 mg chewable tablet 1 tab PO DAILY 03/09/20 08/15/24 1 Week Ago History ~08/08/24 nebulizers 07/15/23 08/15/24 1 Week Ago History ~08/08/24 cholecalciferol (vitamin D3) 50 50 mcg PO DAILY 09/18/23 08/15/24 1 Week Ago History mcg (2,000 unit) capsule (Vitamin ~08/08/24 D3) acetaminophen 650 mg 650 mg PO Q6H PRN pain or fever 10/08/23 08/15/24 Unknown History tablet,extended release metformin 500 mg tablet 500 mg PO DAILY 10/08/23 08/15/24 1 Week Ago History ~08/08/24 carvedilol 25 mg tablet 25 mg PO BID 12/11/23 08/15/24 1 Week Ago History ~08/08/24 atorvastatin 10 mg tablet 10 mg PO BEDTIME 01/19/24 08/15/24 1 Week Ago History ~08/08/24 albuterol sulfate 90 mcg/actuation 2 puff inhalation Q4H PRN 02/04/24 08/15/24 Unknown History aerosol inhaler shortness of breath or wheezing bisacodyl 5 mg tablet,delayed 10 mg PO BEDTIME PRN Constipation 02/04/24 08/15/24 02/03/24 History release (Dulcolax (bisacodyl)) amoxicillin 875 mg-potassium 1 tab PO BID 08/15/24 08/15/24 08/15/24 09:00 History clavulanate 125 mg tablet diltiazem HCl 300 mg 300 mg PO DAILY 08/15/24 08/15/24 1 Week Ago History capsule,extended release 24 hr ~08/08/24 docusate sodium 100 mg capsule 100 mg PO BIDWM 08/15/24 08/15/24 1 Week Ago History ~08/08/24 dupilumab 300 mg/2 mL subcutaneous 300 mg subcut Q2W 08/15/24 08/15/24 08/02/24 History pen injector (Dupixent) hydrochlorothiazide 12.5 mg tablet 12.5 mg PO DAILY 08/15/24 08/15/24 1 Week Ago History ~08/08/24 ibuprofen 800 mg tablet 800 mg PO Q6H PRN mild pain 08/15/24 08/15/24 Unknown History linaclotide 290 mcg capsule 290 mcg PO DAILY 08/15/24 08/15/24 1 Week Ago History (Linzess) ~08/08/24 lisinopril 40 mg tablet 40 mg PO DAILY 08/15/24 08/15/24 08/15/24 History montelukast 10 mg tablet 10 mg PO BEDTIME 08/15/24 08/15/24 08/14/24 History omeprazole 20 mg capsule,delayed 20 mg PO DAILY@0630 08/15/24 08/15/24 1 Week Ago History release ~08/08/24 tiotropium bromide 2.5 2 puff inhalation DAILY 08/15/24 08/15/24 1 Week Ago History mcg/actuation mist for inhalation ~08/08/24 (Spiriva Respimat) Physical Exam Vital Signs: Vital Signs: Last Vital Signs Temp 97.8 F 08/16/24 12:15 Pulse 77 08/16/24 12:15 Resp 16 08/16/24 12:15 BP 124/75 08/16/24 12:15 Pulse Ox 96 08/16/24 12:15 O2 Del Method Room Air 08/16/24 12:15 O2 Flow Rate 2 08/15/24 15:30 BMI result Body Mass Index 35.5 GENERAL APPEARANCE: in no acute distress, pleasant. NECK: no carotid bruit, no jugular venous distention. SKIN: no suspicious lesions, warm and dry. HEART: no murmurs, regular rate and rhythm. LUNGS: clear to auscultation bilaterally. ABDOMEN: soft, nontender. EXTREMITIES: no edema. PERIPHERAL PULSES: equal. NEUROLOGIC: No gross deficits, AAO X 3 Objective Labs and Meds 08/15/24 14:04 08/15/24 14:04 Lab results: Laboratory Results - last 24 hr 08/15/24 08/15/24 08/15/24 14:04 14:13 17:19 WBC 10.0 RBC 4.74 Hgb 14.1 Hct 41.5 MCV 87.6 MCH 29.7 MCHC 34.0 RDW 12.6 Plt Count 334 D MPV 10.4 Immature Gran % (Auto) 0.3 Neut % (Auto) 58.8 Lymph % (Auto) 17.2 L Haakon % (Auto) 8.5 Eos % (Auto) 14.5 H Baso % (Auto) 0.7 Lymph # (Auto) 1.7 Haakon # (Auto) 0.9 Eos # (Auto) 1.5 H Baso # (Auto) 0.1 Abs Immat Gran (auto) 0.03 Absolute Neuts (auto) 5.9 Absolute Nucleated RBC 0.000 Nucleated RBC % (auto) 0.0 Sodium 139 Potassium 3.8 Chloride 107 Carbon Dioxide 23 Anion Gap 13 BUN 12 Creatinine 0.68 Estim Creat Clear Calc 76.5 Estimated GFR > 60 POC Glucose Random Glucose 131 H Lactic Acid 1.6 Calcium 9.4 Total Bilirubin 1.5 H AST 17 ALT 11 Alkaline Phosphatase 81 Troponin I High Sens < 2.7 7.0 D B-Natriuretic Peptide < 10 Total Protein 7.1 Albumin 3.8 Respiratory Panel Chu Adenovirus (Rapid PCR) B.pert (TEM-PCR) B.parapertussis DNA PCR C. pneumoniae DNA (PCR) Coronavirus OC43 (PCR) Coronavirus HKU1 (PCR) Coronavirus 229E (PCR) Coronavirus NL63 (PCR) Human Metapneumovir PCR Influenza A (RT-PCR) Influenza A (H1) PCR Influ A (H1/09) PCR Influenza A (H3) PCR Influenza Type A (PCR) NEGATIVE Influenza B (RT-PCR) Influenza Type B (PCR) NEGATIVE M. pneumoniae (PCR) Parainfluenza 1 (PCR) Parainfluenza 2 (PCR) Parainfluenza 3 (PCR) Parainfluenza 4 (PCR) RSV (PCR) RSV RNA Qual (PCR) NEGATIVE Entero/Rhino (PCR) SARS-CoV-2 RNA (RT-PCR) NEGATIVE 08/15/24 08/16/24 08/16/24 20:46 01:08 04:32 WBC RBC Hgb Hct MCV MCH MCHC RDW Plt Count MPV Immature Gran % (Auto) Neut % (Auto) Lymph % (Auto) Haakon % (Auto) Eos % (Auto) Baso % (Auto) Lymph # (Auto) Haakon # (Auto) Eos # (Auto) Baso # (Auto) Abs Immat Gran (auto) Absolute Neuts (auto) Absolute Nucleated RBC Nucleated RBC % (auto) Sodium Potassium Chloride Carbon Dioxide Anion Gap BUN Creatinine Estim Creat Clear Calc Estimated GFR POC Glucose 178 H Random Glucose Lactic Acid Calcium Total Bilirubin AST ALT Alkaline Phosphatase Troponin I High Sens 3.6 3.2 B-Natriuretic Peptide Total Protein Albumin Respiratory Panel Chu Adenovirus (Rapid PCR) B.pert (TEM-PCR) B.parapertussis DNA PCR C. pneumoniae DNA (PCR) Coronavirus OC43 (PCR) Coronavirus HKU1 (PCR) Coronavirus 229E (PCR) Coronavirus NL63 (PCR) Human Metapneumovir PCR Influenza A (RT-PCR) Influenza A (H1) PCR Influ A (H1/09) PCR Influenza A (H3) PCR Influenza Type A (PCR) Influenza B (RT-PCR) Influenza Type B (PCR) M. pneumoniae (PCR) Parainfluenza 1 (PCR) Parainfluenza 2 (PCR) Parainfluenza 3 (PCR) Parainfluenza 4 (PCR) RSV (PCR) RSV RNA Qual (PCR) Entero/Rhino (PCR) SARS-CoV-2 RNA (RT-PCR) 08/16/24 08/16/24 08/16/24 07:26 07:59 12:08 WBC RBC Hgb Hct MCV MCH MCHC RDW Plt Count MPV Immature Gran % (Auto) Neut % (Auto) Lymph % (Auto) Haakon % (Auto) Eos % (Auto) Baso % (Auto) Lymph # (Auto) Haakon # (Auto) Eos # (Auto) Baso # (Auto) Abs Immat Gran (auto) Absolute Neuts (auto) Absolute Nucleated RBC Nucleated RBC % (auto) Sodium Potassium Chloride Carbon Dioxide Anion Gap BUN Creatinine Estim Creat Clear Calc Estimated GFR POC Glucose 151 H 85 Random Glucose Lactic Acid Calcium Total Bilirubin AST ALT Alkaline Phosphatase Troponin I High Sens B-Natriuretic Peptide Total Protein Albumin Respiratory Panel Chu See Note Adenovirus (Rapid PCR) Not Detected B.pert (TEM-PCR) Not Detected B.parapertussis DNA PCR Not Detected C. pneumoniae DNA (PCR) Not Detected Coronavirus OC43 (PCR) Not Detected Coronavirus HKU1 (PCR) Not Detected Coronavirus 229E (PCR) Not Detected Coronavirus NL63 (PCR) Not Detected Human Metapneumovir PCR Not Detected Influenza A (RT-PCR) Not Detected Influenza A (H1) PCR Not Detected Influ A (H1) PCR Not Detected Influenza A (H3) PCR Not Detected Influenza Type A (PCR) Influenza B (RT-PCR) Not Detected Influenza Type B (PCR) M. pneumoniae (PCR) Not Detected Parainfluenza 1 (PCR) Not Detected Parainfluenza 2 (PCR) Not Detected Parainfluenza 3 (PCR) Not Detected Parainfluenza 4 (PCR) Not Detected RSV (PCR) Not Detected RSV RNA Qual (PCR) Entero/Rhino (PCR) Not Detected SARS-CoV-2 RNA (RT-PCR) Not Detected 08/16/24 12:46 WBC RBC Hgb Hct MCV MCH MCHC RDW Plt Count MPV Immature Gran % (Auto) Neut % (Auto) Lymph % (Auto) Haakon % (Auto) Eos % (Auto) Baso % (Auto) Lymph # (Auto) Haakon # (Auto) Eos # (Auto) Baso # (Auto) Abs Immat Gran (auto) Absolute Neuts (auto) Absolute Nucleated RBC Nucleated RBC % (auto) Sodium Potassium Chloride Carbon Dioxide Anion Gap BUN Creatinine Estim Creat Clear Calc Estimated GFR POC Glucose 116 H Random Glucose Lactic Acid Calcium Total Bilirubin AST ALT Alkaline Phosphatase Troponin I High Sens B-Natriuretic Peptide Total Protein Albumin Respiratory Panel Chu Adenovirus (Rapid PCR) B.pert (TEM-PCR) B.parapertussis DNA PCR C. pneumoniae DNA (PCR) Coronavirus OC43 (PCR) Coronavirus HKU1 (PCR) Coronavirus 229E (PCR) Coronavirus NL63 (PCR) Human Metapneumovir PCR Influenza A (RT-PCR) Influenza A (H1) PCR Influ A (H1) PCR Influenza A (H3) PCR Influenza Type A (PCR) Influenza B (RT-PCR) Influenza Type B (PCR) M. pneumoniae (PCR) Parainfluenza 1 (PCR) Parainfluenza 2 (PCR) Parainfluenza 3 (PCR) Parainfluenza 4 (PCR) RSV (PCR) RSV RNA Qual (PCR) Entero/Rhino (PCR) SARS-CoV-2 RNA (RT-PCR) Assessment and Plan (1) Chest pain: Status: Acute Plan Pleasant 74 year female with noncardiac chest pain. She has pneumonia in the left lung and left-sided pleuritic chest pain which is due to pneumonia. High sensitivity troponin level is negative. EKGs not showing any dynamic changes. I have reassured her that her presentation is due to pneumonia and pleuritic chest pain is due to pneumonia. Supportive care and can be discharged as per hospitalist team. Thank you for allowing me to participate in the care of your patient. Please feel free to contact me if you have any questions. Procedures Date of Service Date of Service: 08/16/24
--- NOTE | 2024-08-16 14:09 | PC.NURSE ---
per nursing secretary, dr espinosa to see patient to provide discharge, does not want patient to go to admitted room
--- NOTE | 2024-08-16 14:28 | PC.NURSE ---
PT AA&OX4, VSS, ambulatory independently w/ steady gait/balance. Denies pain/dizziness/CP. DC instructions reviewed and understood. No questions from the patient at this time.
--- NOTE | 2024-08-16 14:33 | PC.NURSE ---
LAC #20 IV removed, catheter tip intact. no signs of infiltraton.
--- NOTE | 2024-08-16 16:11 | MHC.CM.PN ---
PT DISCHARGED HOME, SELF CARE, PRIOR TO BEING SEEN BY CM PER LAST ADMISSION: PT LIVES WITH HER SON AND DAUGHTER IN LAW WHO ACT HER CAREGIVERS PT IS CONNECTED TO [facility] SHE USES A CANE AT [facility] PT HAS A HCP ON FILE PCP: EDWARD REBOLLEDO IMM DELIVERED DCP: [facility]
== END 2024-08-16 14:31 | disposition home or self-care (01) ==
LOC: HO.ED 16:42 → HO.EDOVER 17:12 → HO.IMC 08-16 13:27 → HO.EDOVER 08-16 14:01
PROVIDERS: Emergency Medicine; Hospitalist; Physician Assistant; Admitting Provider Student in an Organized Health Care Education/Training Program; Emergency Provider Internal Medicine; PCP General Practice; Visit Provider Internal Medicine
DX: J18.9 Pneumonia, unspecified organism (principal); R07.9 Chest pain, unspecified; R06.02 Shortness of breath; I10 Essential (primary) hypertension; J44.89 Other specified chronic obstructive pulmonary disease; E11.9 Type 2 diabetes mellitus without complications; K21.9 Gastro-esophageal reflux disease without esophagitis; F39 Unspecified mood [affective] disorder; R00.0 Tachycardia, unspecified; Z79.899 Other long term (current) drug therapy
CPT/HCPCS: 0241U; 36415; 71046; 71275; 80053; 82947; 83605; 83880; 84484; 85025; 87040; 87633; 93005; 96365; 96366; 96372; 96375; 97161; 99222; 99285; J0456; J0696; J0737; J1650; J3010

== ENCOUNTER → 2024-08-15 14:10 | Outpatient (BNV) | payer OTHER, SELFPAY | PROVIDERS: Emergency Provider Emergency Medicine; PCP General Practice; Visit Provider Radiology Diagnostic Radiology | DX: J90 Pleural effusion, not elsewhere classified (principal); J18.9 Pneumonia, unspecified organism; I25.10 Atherosclerotic heart disease of native coronary artery without angina pectoris | CPT/HCPCS: 71046; 71275 ==

== ENCOUNTER 2024-08-15 16:49 | Outpatient (BNV) | payer OTHER, SELFPAY | END 2024-08-16 00:52 | PROVIDERS: Admitting Provider Student in an Organized Health Care Education/Training Program; Emergency Provider Internal Medicine; PCP General Practice; Visit Provider Internal Medicine Cardiovascular Disease | DX: I45.10 Unspecified right bundle-branch block (principal) | CPT/HCPCS: 93010 ==

== ENCOUNTER → 2024-08-15 16:49 | Outpatient (BNV) | payer OTHER, SELFPAY | PROVIDERS: Admitting Provider Student in an Organized Health Care Education/Training Program; Emergency Provider Internal Medicine; PCP General Practice; Visit Provider Internal Medicine Cardiovascular Disease | DX: R07.9 Chest pain, unspecified (principal) | CPT/HCPCS: 93010; 99222 ==

== ENCOUNTER → 2024-08-15 16:49 | Outpatient (BNV) | payer OTHER, SELFPAY | PROVIDERS: Admitting Provider Student in an Organized Health Care Education/Training Program; Emergency Provider Internal Medicine; PCP General Practice; Visit Provider Student in an Organized Health Care Education/Training Program | DX: R07.9 Chest pain, unspecified (principal); J18.9 Pneumonia, unspecified organism; R07.89 Other chest pain | CPT/HCPCS: 99222; 99239 ==

== ENCOUNTER 2024-08-20 10:14 | Outpatient (AMB) | payer OTHER, SELFPAY ==
[2024-08-20 10:15] VITALS: BP 110/78; PULSE 109; O2SAT 96; BMI 35.4
--- NOTE | 2024-08-20 10:15 | MHC.OFFVIS ---
Vital Signs 08/20/24 10:15 Height 5 ft 3 in Weight 200 lb BMI 35.4 BP 110/78 Blood Pressure Location Lt brachial Position Sitting Pulse 109 H Pulse Source Doppler Pulse Oximetry (%) 96 Oxygen Delivery Method Room Air Intake Visit Reasons: ED follow up Allergies morphine [MORPHINE] Allergy (Intermediate, Verified 08/20/24 10:21) NAUSEA, rash, redness HPI Comments Details: The patient is a 74-year-old woman known asthma. Recently had a CT scan of the abdomen demonstrating hiatal hernia as well. She continues to be on her respiratory regimen which includes Trelegy and also budesonide nebs and albuterol nebs. She had also takes her allergy medicine including singular. Recently she could not find her singular medication nguyen and she has noticed that her respiratory symptoms are getting worse. The patient also has cough. Moderate severity. Tends to be dry. We did talk about the reflux diet. Is going to try to follow it closely. She was slow to improve had a CT scan done again demonstrating airspace disease in the left base. She did undergo bronchoscopy with significant mucus burden status post therapeutic bronchoscopy. 07/15/2023 the patient is here for a pulmonary follow-up visit. Patient overall has been feeling a little bit worse from her asthma. She has been sometime in [place] her asthma was good. However when she made back to this state she started developing again to tightness and wheezing. unfortunately, her nebulizer fell and broke and is no longer working. She needs have a functional nebulizer in view of her severe persistent asthma. will go ahead and order a new nebulizer replacement for the patient at this time. In the meantime she has been having hard time with her CPAP because she has not been getting supplies. I have explained to her that based on the fact that she has not using it the insurance will cover for any supplies. Therefore, she is going to start using at this time. Will review the use with the next download. 09/18/2023 the patient is here for a pulmonary follow-up visit. She unfortunately developed worsening respiratory symptoms. She did go to the hospital she was diagnosed with influenza A. She went to the hospital twice after that with worsening respiratory symptoms cough wheezing chest tightness. She was given prednisone multiple times. The patient was not admitted to the hospital. Her chest x-ray was clear. She still continues to complain of shortness of breath. Even with minimal activity moderate severity. Also complains of some chest congestion. She has been using her nebulizer treatments in addition to her respiratory medications and now she ran out. I will make sure to supply of the medication pharmacy. The patient also will be treated for postviral bacterial infection and also still having wheezing on examination so therefore will place her on a small dose of prednisone that she can taper down slowly to try to improve her respiratory symptoms. If the patient is no better she would come in for chest x-ray. She also struggling with her CPAP. Her CPAP supplies have not been recieved. We did request supplies from the [employer] company during the last visit. Will call the DME again. Also she needs a nebulizer replacement that we requested during her last visit. 01/19/2024 the patient is here for a pulmonary follow-up visit. The patient is complaining worsening cough. She does not feel like the Breo is helping her. She also has wheezing and chest tightness. She did have a Symbicort available and she tried that and worked a lot better than her medication. She is also wondering over biologic injections. She is currently taking Spiriva. Will go ahead and maximize her respiratory therapy by switching over to Symbicort and continue the Spiriva. If the patient is no better she can have blood work done to assess her for allergic biologic therapies. In the meantime she does have a new CPAP with her. The CPAP therapy has been affecting beneficial. Her AHI is down 0.5. The patient has been use it more than 4 hours a night which is reassuring. The major issues that has an air leakage from her fullface mask. Will try to get her a different mask, F 30 medium mask on to her DME company. Her DME company is [employer]. She has not heard from them. I will send prescriptions in order for her to get supplies. The patient otherwise is doing well. Will follow-up in the spring. In the meantime she develops any worsening symptoms prior to that she will come for an earlier assessment. 07/05/2024 the patient is here for pulmonary follow-up visit. Overall the patient has been doing okay. She complains of asthma symptoms on a daily basis. She has been having to use her rescue inhaler daily. If not several times a day. Back in the fall she did have bad respiratory infection positive for RSV she was briefly admitted to the hospital. The patient was treated in now feels like her asthma has never been the same after that. In the meantime she continues use her CPAP. CPAP therapy continues to be affecting beneficial and she does use it for more than 4 hours a night. Her AHI is within normal limits. And she continues to get supplies from her [employer]. She does use a fullface mask which will request. In regards of the uncontrolled asthma symptoms she has had eosinophilia in the past. We will see about checking her blood work again for eosinophils and also IgE and will looking to biologic therapy for her ongoing symptoms. 08/20/2024 the patient is here for a sick visit. Apparently she started developing severe left-sided pleuritic chest pains. She went to the ER thinking she was having hard talk that was back in the beginning of August. He was treated and released. Subsequently she went back to the ER on August 15 for persistent discomfort. At that point she did have a CT scan of the chest. I did personally review. She did have a loculated effusion which is concerning. Also associated with pneumonia on the left side. She continues to have significant pleurisy in hard time breathing. She denies any fevers or chills she is coughing but does hurt to cough so hard to clear secretions. She was given an antibiotic. Now has been about a week since she started antibiotics and she has not seen any improvement. The patient is actually feeling like she is getting worse. I did repeat an x-ray which I personally reviewed demonstrating worsening left-sided pleural effusion. Or opacity difficult to interpret based on the x-ray limitations. In view of the worsening disease I did recommend she go back to the ER. 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 Sacroiliitis Disc degeneration, lumbar OTILIO (obstructive sleep apnea) Back pain HTN (hypertension) Skin cancer (melanoma) GERD (gastroesophageal reflux disease) Depression OTILIO (obstructive sleep apnea) Kidney stones Pulmonary nodule Severe asthma Primary osteoarthritis involving multiple joints Pneumonia Chronic allergic rhinitis (~03/09/20) Asthma-COPD overlap syndrome Surgical History History of bronchoscopy History of cystoscopy History of laparoscopic appendectomy History of nasal surgery Hx of section Hx of tubal ligation Hx of colonoscopy History of esophagogastroduodenoscopy (EGD) Hx of knee surgery Family History Father No problems noted. Mother No problems noted. Social History Household Members: Children Housing: Apartment Do you presently have visiting nurse or other home services: Yes (private home health aid) Alcohol intake: never Patient Tobacco Use Status: Never used Tobacco e-Cigarette/Vaping Use: Never Used Second Hand Smoke Exposure: No Advance Directives Date on File: 10/13/23 service: No Current occupational status: disabled Current occupation: rt handed Review of Systems Const Reports chills, Denies daytime sleepiness, Reports difficulty sleeping and Denies stops breathing during sleep Eyes Denies change in vision ENT Reports Normal hearing present Card Reports dyspnea Resp Reports change in phlegm color, Reports chest congestion, Reports cough, Reports pain on inspiration, Reports pain with cough, Reports dyspnea and Reports wheezing Musc Reports back pain Neuro Reports Normal hearing present and Denies Abnormal speech present Aller/Immun Reports wheezing Physical Exam Vital Signs: Last Vital Signs Pulse 109 H 08/20/24 10:15 BP 110/78 08/20/24 10:15 Pulse Ox 96 08/20/24 10:15 Oxygen Delivery Method Room Air 08/20/24 10:15 BMI result Body Mass Index 35.4 Const General: alert Neck Neck: Yes normal visual inspection, Yes full ROM and Yes no lymphadenopathy Chest Chest palpation & inspection: normal inspection of the chest Resp Effort & Inspection: normal respiratory effort Auscultation: no rhonchi, no wheezes and diminished lung sounds Cardio Rate: regular rate Rhythm: regular rhythm Heart sounds: S1 normal heart sound present and S2 normal heart sound present GI Palpation (GI): Soft to palpation and nontender Auscultation: normal bowel sounds Skin General skin exam: rashes and/or lesions noted Neuro Cranial nerves: Yes Normal hearing present Speech: No Abnormal speech present Results Reviewed Results Reviewed: Assessment & Plan Assessment & Plan (1) Asthma-COPD overlap syndrome: Code(s): J44.9 - Chronic obstructive pulmonary disease, unspecified Category: Medical (2) Severe asthma: Code(s): J45.909 - Unspecified asthma, uncomplicated Category: Medical Qualifiers: Asthma complication type: uncomplicated Asthma persistence: persistent Qualified Code(s): J45.50 - Severe persistent asthma, uncomplicated (3) OTILIO (obstructive sleep apnea): Code(s): G47.33 - Obstructive sleep apnea (adult) (pediatric) Category: Medical (4) Pulmonary nodule: Code(s): R91.1 - Solitary pulmonary nodule Category: Medical (5) GERD (gastroesophageal reflux disease): Code(s): K21.9 - Gastro-esophageal reflux disease without esophagitis Category: Medical Qualifiers: Esophagitis presence: without esophagitis Qualified Code(s): K21.9 - Gastro-esophageal reflux disease without esophagitis (6) Atelectasis of left lung: Code(s): J98.11 - Atelectasis Category: Medical (7) Pneumonia: Code(s): J18.9 - Pneumonia, unspecified organism Category: Medical Qualifiers: Laterality: left Lung location: lower lobe of lung Pneumonia type: due to unspecified organism Qualified Code(s): J18.9 - Pneumonia, unspecified organism (8) Loculated pleural effusion: Code(s): J90 - Pleural effusion, not elsewhere classified Category: Medical (9) Chest pain: Code(s): R07.9 - Chest pain, unspecified Category: Medical Qualifiers: Chest pain type: chest pain on breathing Qualified Code(s): R07.1 - Chest pain on breathing Plan CXR personally reviewed by me and compared to 08/15/2024, LLL opacity is worse Will refer to the ED for futher management. I did let Thoracic surgery know about needing a potential intervention Continue APAP, requesting F30 medium mask continue Daliresp 500mg daily continue symbicort continue Spiriva JOHANA as needed continue Dupixent once better continue singulair F/U 2-3 months Orders: Orders XR chest 2V 08/20/24 J18.9 - Pneumonia, unspecified organism, J90 - Pleural effusion, not elsewhere classified Coding Level of Care Code Est Pt Level 5 (02901) Diagnoses Asthma-COPD overlap syndrome J44.9 Severe persistent asthma without complication J45.50 Asthma complication type: uncomplicated Asthma persistence: persistent OTILIO (obstructive sleep apnea) G47.33 Pulmonary nodule R91.1 Gastroesophageal reflux disease without esophagitis K21.9 Esophagitis presence: without esophagitis Atelectasis of left lung J98.11 Pneumonia J18.9 Laterality: left Lung location: lower lobe of lung Pneumonia type: due to unspecified organism Loculated pleural effusion J90 Chest pain on breathing R07.1 Chest pain type: chest pain on breathing Time Spent (min) 45
--- OUTSIDE RECORDS SUMMARY | 2024-08-20 11:02 | XMS_ITS | Encounter Summary ---
Author Organization [facility] Address [address] [place] [address] [address] [place] [address] Care Team Providers Care Bar Useful Or Busser Name Role Phone Mary Flores MD Primary Care Provider Encounter Details Date Type Department Care Team ([facility] Contact Info) Description 08/01/2022 Orders Only [facility] [address] [place] [phone] Mary Flores MD [address] [place] [phone] Blurry vision (Primary Dx) Social History Tobacco [...] Description 08/25/2024 2:00 PM EDT Office Visit [facility] [address] [place] [phone] Mary Flores MD [address] [place] [address] [phone] documented as of this encounter Visit Diagnoses Diagnosis Blurry vision- Primary Other specified visual disturbances documented in this encounter Care Teams Bar Useful Or Busser Relationship Specialty Start Date End Date Mary Flores MD [address] [place] [phone] PCP - General Family Medicine 01/05/22 documented as of this encounter
--- OUTSIDE RECORDS SUMMARY | 2024-08-20 11:02 | XMS_ITS | Encounter Summary ---
Author Organization [employer] Address [address] [place] [address] Care Team Providers Care Remote Sensing Specialist Name Role Phone Mary Flores MD Primary Care Provider [phone] Reason for Visit * Reason Comments Med Refill Encounter Details Date Type Department Care Team ([facility] st Contact Info) Description 04/19/2024 Refill [facility] [address] [place], [place] [phone] Olga Dillard ANP [address] [place] [address] Nasal congestion Social History Tobacco Use Types [...] Description 08/25/2024 2:00 PM EDT Office Visit [facility] [address] [place] [address] Mary Flores MD [address] [place] [address] documented as of this encounter Visit Diagnoses Diagnosis Nasal congestion Other diseases of nasal cavity and sinuses documented in this encounter Additional Health Concerns Assessment Noted Time PHQ-9 Depression Total Score: 7 11/10/19 24 2:30 PM EDT documented as of this encounter Care Teams Remote Sensing Specialist Relationship Specialty Start Date End Date Mary Flores MD [address] [place] [address] PCP - General Family Medicine 01/05/22 documented as of this encounter
--- OUTSIDE RECORDS SUMMARY | 2024-08-20 11:02 | XMS_ITS | Encounter Summary ---
Author Organization [employer] Address [address] [place] [address] Care Team Providers Care Caddie Name Role Phone Mary Flores MD Primary Care Provider [phone] Reason for Visit * Reason Onset Date Comments Appointment Request 06/13/2023 Encounter Details Date Type Department Care Team ([facility] st Contact Info) Description 06/13/2023 Telephone [facility] [address] [place] [address] Mary Flores MD [address] [place] [address] Appointment Request Social History Tobacco Use Types [...] told her that when she returned from [place] to call for an appointment in person. documented in this encounter Plan of Treatment Upcoming Encounters Date Type Department Care Team (Late st Contact Info) Description 08/25/2024 2:00 PM EDT Office Visit [facility] [address] [place] [address] Mary Flores MD [address] [place] [phone] documented as of this encounter Visit Diagnoses Not on filedocumented in this encounter Care Teams Caddie Relationship Specialty Start Date End Date Mary Flores MD [address] [place] [phone] PCP - General Family Medicine 01/05/22 documented as of this encounter
--- OUTSIDE RECORDS SUMMARY | 2024-08-20 11:02 | XMS_ITS | Encounter Summary ---
Author Organization [employer] Address [address] [place] [address] Care Team Providers Care Glass Cut Off Tender Name Role Phone Mary Flores MD Primary Care Provider [phone] Encounter Details Date Type Department Care Team (Late st Contact Info) Description 09/12/2023 Orders Only [facility] [address] [place] [address] ProviderElliott MD Social History Tobacco Use Types [...] Description 08/25/2024 2:00 PM EDT Office Visit [facility] [address] [place] [address] Mary Flores MD [address] [place] [address] documented as of this encounter Procedures Procedure Name Priority Date/Time Associated Diagnosis Comments HM COLONOSCOPY Routine 01/19/2021 8:45 AM EDT documented in this encounter Results * Hm Colonoscopy (01/19/2021 8:45 AM EDT) Historical Provider HEALTH MAINTENANCE Final Result documented in this encounter Visit Diagnoses Not on filedocumented in this encounter Care Teams Glass Cut Off Tender Relationship Specialty Start Date End Date Mary Flores MD [address] [place] [address] [phone] PCP - General Family Medicine 01/05/22 documented as of this encounter
--- OUTSIDE RECORDS SUMMARY | 2024-08-20 11:02 | XMS_ITS ---
Author Name Sonya Gallagher NP Address [address] [place] [address] Phone [phone] [facility] Care Team Providers Care Agricultural Consultant Name Role Phone Sonya Gallagher Unavailable [phone] NATALY CRANDALL Unavailable [phone] Bret Bonner Unavailable [phone] Deanna Casillas Unavailable [phone] CALEB RAMON Unavailable [phone] EDWARD REBOLLEDO Unavailable [phone] Reason for Referral Not Available Allergies, adverse [...] 290 MCG Cap TAKE 1 CAPSULE BY [facility] EVERY MORNING 2021-10-25 No Data Available Albuterol Sulfate HFA 108 (9 0 Base) MCG/ACT Aerosol Solution INHALE 2 PUFFS BY MOUTH EVERY 4 TO 6 HOURS NEEDED 2021-05-30 No Data Available Amitriptyline 100 mg Tab TAKE 1 TABLET B Y MOUTH AT BEDTIME 2021-10-09 No Data Available Creon [id number] UNIT Cap delayed rel TAKE 1 CAPSULE BY MOUTH FOUR TIMES DAILY, WITH MEALS OR SNACKS AND AT BEDTIME 2021-11-08 No Data Available Cyclobenzaprine 10 mg Tab TAKE 1 TABLET BY MOUTH AT BEDTIME 2021-10-09 No Data Available Daliresp 500 MCG Tab TAKE 1 TABLET BY [facility] EVERY DAY 2021-05-30 No Data Available dilTIAZem [...] Available Vitamin D (Ergocalciferol) 1 .25 mg (45127 UT) Cap TAKE 1 CAPSULE BY MOUTH [...] (do not use for phone, instead use 84638-59) [facility] ([place]) 04/08/2022 Hypertensive heart disease w ith heart failureHeart failure, unspecifiedUnspecified asthma, uncomplicatedChronic obstructive pulmonary disease, unspecifiedRheumatoid arthritis, unspecifiedHyperlipidemia, unspecifiedDepression, unspecified New patient,40-59min; chronic exacerbation, 2 stable chronic or 1 acute illness add add modifier 95 for video (do not use for phone, instead use 14296-55) [facility] [place]) 04/08/2022 New patient,40-59min; chronic exacerbation, 2 stable chronic or 1 acute illness add add modifier 95 for video (do not use for phone, instead use 03033-23) [facility] 04/08/2022 New patient,40-59min; chronic exacerbation, 2 stable chronic or 1 acute illness add add modifier 95 for video (do not use for phone, instead use 55779-18) [facility] [place] 04/08/2022 New patient,40-59min; chronic exacerbation, 2 stable chronic or 1 acute illness add add modifier 95 for video (do not use for phone, instead use 01596-00) [facility] [place] 04/08/2022 New patient,40-59min; chronic exacerbation, 2 stable chronic or 1 acute illness add add modifier 95 for video (do not use for phone, instead use 74121-95) [facility] [place] 04/08/2022 New patient,40-59min; chronic exacerbation, 2 stable chronic or 1 acute illness add add modifier 95 for video (do not use for phone, instead use 29823-78) [facility] [place] 04/08/2022 New patient,40-59min; chronic exacerbation, 2 stable chronic or 1 acute illness add add modifier 95 for video (do not use for phone, instead use 17208-78) [facility] [place] 04/08/2022 New patient,40-59min; chronic exacerbation, 2 stable chronic or 1 acute illness add add modifier 95 for video (do not use for phone, instead use 35489-17) [facility] [place] 04/08/2022 Estab. patient 20-29min; 1 stable chronic or 2 minor; add add modifier 95 for video, modifier 93 for phone [facility] 05/09/2022 Hypertensive heart disease w ith heart [...] tive Time Current Smoking Status Never smoker 2024-08-10 1 Sex Female History of Procedures Procedures Service Procedure code Service date Servicing provider Phone# New patient,40-59min; chronic exacerbation, 2 stable chronic or 1 acute illness add add modifier 95 for video (do not use for phone, instead use 92232-39) 72636 2022-04-09 No Data Available No Data Availa [...] 95 for video, modifier 93 for phone 04236 2022-05-09 No Data Available No Data Availa [...] using a udio and video over the [employer] tablet. Time spent in visit: 20 minutesToday, patient has chief complaint of: monitoring of chronic conditions 2022-05-09 Most recent hospital stay(s) or ER visit(s) and precipitating factors: denies 2022-05-09 Open HEDIS Measure falguni carbajal: done
--- OUTSIDE RECORDS SUMMARY | 2024-08-20 11:02 | XMS_ITS | Encounter Summary ---
Author Organization [facility] Address [address] [place] [address] Care Team Providers Care Hydroelectric Plant Technician Name Role Phone Mary Flores MD Primary Care Provider [phone] Encounter Details Date Type Department Care Team (Late Contact Info) Description 08/27/2022 Orders Only [facility] [address] [place] [phone] Mary Flores MD [address] [place] [address] [phone] Social History Tobacco Use Types Packs/Day Years [...] Description 08/25/2024 2:00 PM EDT Office Visit [facility] [address] [place] [address] Mary Flores MD [address] [place] [address] documented as of this encounter Visit Diagnoses Not on filedocumented in this encounter Care Teams Hydroelectric Plant Technician Relationship Specialty Start Date End Date Mary Flores MD [address] [place] [address] PCP - General Family Medicine 01/05/22 documented as of this encounter
--- OUTSIDE RECORDS SUMMARY | 2024-08-20 11:02 | XMS_ITS | Data Portability ---
Author Organization [employer] [facility], Co in - [facility] Address [address] [place] [phone] Care Team Providers Care Confectionery Maker Name Role Phone HIM CCA Referring Provider [phone] Assessment Encounter Date Assessment Date Assessment LastModified by Organization Details LastModified Time 08/21/2023 08/21/2023 I provided real -time medical direction via phone for this encounter, and was available for additional phone based assistance as needed. I have reviewed and agree with the Assessment and Plan as documented by the Paper Bag Making Machinist. We discussed the diagnostic uncertainty of home visits and the risk associated with this. In this case the patient and I felt this to be an acceptable and reasonable amount of risk given the benefit of avoiding an ED visit. Via translator/interpreter, the patient given the opportunity to ask questions. Advised to follow-up with PCP tomorrow if develops CP/severe SOB/turning blue/uncontrolle d n/v/d or black/bloody emesis or stool/ AMS/ syncope/ hi fever unresponsive to APAP to call 911- verbalized understanding of instruction [email or web address] Not available 08/21/2023 11:52:46 Plan of Treatment Reminders Order Date Submit Date Provider Last Modified By Organization Details Last Modified Time Details Appointments None recorded. Lab BMP, serum or plasma 2023 024 [email or web address] 0 [facility], [address] [place] [address], [id number] 4 11:57:22 rapid SARS CoV 2 Ag, QL IA, respiratory specimen 2023 024 [email or web address], [id number] 4 11:57:26 rapid flu (A+B) 2023 024 [email or web address], [id number] 4 11:57:27 Referral None recorded. Procedures None recorded. Surgeries None recorded. Imaging None recorded. Medication Orders ondansetron 4 mg disintegrat ing tablet 2023 [facility], [address] [place] [address], [id number], 4 14:03:53 ipratropium 0.5 mg-albutero l 3 mg (2.5 mg base)/3 mL nebulizatio n soln 2023 024 [email or web address] 0 Not available 11:57:22 prednisone 20 mg tablet 2023 024 [email or web address] 0 Not available 4 11:57:22 prednisone 20 mg tablet 2023 [facility], [address] [place] [address], [id number], 4 12:59:13 Tylenol Arthritis Pain 650 mg tablet,exte nded release 2023 [facility], [address] [place] [address], [id number], 4 14:44:00 benzonatate 200 mg capsule 2023 [facility], [address] [place] [address], [id number], 4 11:39:43 Patient TargetsNo targets recorded. Patient InstructionsNo instructions recorded. Reason for Referral None Reported. Results Created Date Observation Date Name Description Value Unit Range Abnormal Flag Note LastModifiedBy Organization Detail LastModifiedTime 08/21/19 24 08/21/2023 BMP, serum or plasm a BUN 18 Not Available Main - Ins [address], [id number] 08/21/2023 11:23:37 08/21/19 24 08/21/2023 BMP, serum or plasm a Ca Ionize d calciu m 1.21 Not Available Main - [facility] ed [address] [place] [address], [address] [place] [address] 08/21/2023 11:23:37 08/21/19 24 08/21/2023 BMP, serum or plasm a CI- 107 Not Available [facility] - Ins [address], [address] [place] [address] 08/21/2023 11:23:37 08/21/19 24 08/21/2023 BMP, serum or plasm a CRE 0.54 Not Available Main - Ins [address], [address] [place] [address] 08/21/2023 11:23:37 08/21/19 24 08/21/2023 BMP, serum or plasm a GLU 89 Not Available [facility] - Ins [address], [address] [place] [address] 08/21/2023 11:23:37 08/21/19 24 08/21/2023 BMP, serum or plasm a K+ 3.9 Not Available Main - Ins [address], [address] [place] [address] 08/21/2023 11:23:37 08/21/19 24 08/21/2023 BMP, serum or plasm a Na+ 143 Not Available Main - Ins [address], [address] [place] [address] 08/21/2023 11:23:37 08/21/19 24 08/21/2023 BMP, serum or plasm a tCO2 26.4 Not Available [facility] - [address], [address] [place] [address] 08/21/2023 11:23:37 08/21/19 24 08/21/2023 rapid SARS CoV 2 Ag, QL IA, respi rator y speci men rapid SARS CoV 2 Ag, QL IA, respiratory specimen negati ve Not Available [facility] - [facility] ed [address] [place] [address], [address] [place] [address] 08/21/2023 11:23:43 08/21/19 24 08/21/2023 rapid flu (A+B) Flu negati ve Not Available [facility] - [facility] ed [address] [place] [address], [address] [place] [address] 08/21/2023 11:23:44 Result Notes None recorded. 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 Patient [...] Briceño Member ID Guarantor Name 08/21/2023 1 [facility] - DOS ON OR AFTER 2022 - DUAL ELIGIBLE - USP OPTIONS AND ONE CARE (MEDICARE REPLACEMENT/ADV ANTAGE - HMO) Margarita Ordonez [id number] Margarita Ordonez Notes Date Note Type Note Provider Name and Address Organization Details Recorded Time 08/21/2023 text/html HPI: Call to Margarita Zamora reports continues to have cough, SOB and wheezing. Pt seen at [facility] on 08/12 and dx with Flu A. [...] Chronic pain- limited old records available in [place]. LD Tylenol was 3 days ago for [...] .................. .................. .................. .................. .................. .................. .... Paper Bag Making Machinist Note From Kun Cruz: Pt co cough [...] negative. Lungs rhonchi with slight wheezing. Afebrile. [facility] contacted and duo neb, 40mg prednisone given, RX for prednisone, benzonatate,zofran and Tylenol called in. Pt advised to follow up with pcp tomorrow. Pt advised to increase neb treatments from 3 xper day to 4 x? s per day. Pt advised to discontinue use of naprasin( SEGMD: Naprosyn) while ill due to increased BP. Pt education on signs indicating the ER. Paper Bag Making Machinist Allergies: Morphine .................. .................. .................. .................. .................. .................. .................. ............... Disposition: Fulfilled Genevieve Stover MD [address], [place], [address], [employer] 08/21/2023 12:03:44 OBGyn Episode No OBEpisode recorded.
--- OUTSIDE RECORDS SUMMARY | 2024-08-20 11:02 | XMS_ITS | Encounter Summary ---
Author Organization [employer] Address [address] [place] [address] Care Team Providers Care Message And Delivery Service Pricer Name Role Phone Mary Flores MD Primary Care Provider [phone] Reason for Visit * Reason Comments Med Refill Encounter Details Date Type Department Care Team ([facility] st Contact Info) Description 07/23/2024 Refill [facility]INE [address] [place], [place] [phone] Mary Flores MD [address] [place], [place] [phone] Social History Tobacco Use Types Packs/Day Years [...] 2:00 PM EDT Office Visit [facility]INE [address] [place] [address] Mary Flores MD [address] [place] [address] documented as of this encounter Visit Diagnoses Not on filedocumented in this encounter Additional Health Concerns Assessment Noted Time PHQ-9 Depression Total Score: 7 11/10/19 24 2:30 PM EDT documented as of this encounter Care Teams Message And Delivery Service Pricer Relationship Specialty Start Date End Date Mary Flores MD [address] [place] [address] [phone] PCP - General Family Medicine 01/05/22 documented as of this encounter
--- OUTSIDE RECORDS SUMMARY | 2024-08-20 11:02 | XMS_ITS | Encounter Summary ---
Author Organization [employer] Address [address] [place] [address] Care Team Providers Care Pattern Ruler Name Role Phone Mary Flores MD Primary Care Provider [phone] Reason for Visit * Reason Onset Date Comments Durable Medical Equipment 07/25/2023 Encounter Details Date Type Department Care Team ([facility] st Contact Info) Description 07/25/2023 Telephone [facility] MEDICINE [address] [place] [address] Mary Flores MD [address] [place] [address] Durable Medical Equipment Social History Tobacco Use [...] requesting DME supplies to be sent to [facility] - bed pads - L pull ups - oximeter documented in this encounter Plan of Treatment Upcoming Encounters Date Type Department Care Team (Late st Contact Info) Description 08/25/2024 2:00 PM EDT Office Visit [facility] MED[facility]INE [address] [place] [address] Mary Flores MD [address] [place] [address] documented as of this encounter Visit Diagnoses Not on filedocumented in this encounter Care Teams Pattern Ruler Relationship Specialty Start Date End Date Mary Flores MD [address] [place] [address] PCP - General Family Medicine 01/05/22 documented as of this encounter
--- OUTSIDE RECORDS SUMMARY | 2024-08-20 11:02 | XMS_ITS | Clinical Summary ---
Author Organization [facility] Address [address] [address] Care Team Providers Care Hot Blast Worker Name Role Phone Frances Fowler RN Primary [...] DAILY FOR 2 DAYS. 12/21/2020 Active Creon 85646-12620 units capsule TAKE 1 CAPSULE BY MOUTH [...] by mouth 02/12/2021 Active ergocalciferol 1.25 MG (81326 UT) capsule TAKE 1 CAPSULE BY MOUTH [...] Colorectal Cancer Screening: Sigmoidoscopy 1998 Pneumococcal Vaccine: 50+ Ye ars (1 of - PCV) 2014 Influenza Vaccine (Season Ended) 2025 Hepatitis B Vaccine Aged Out No longe r eligible based on patient's age to complete this topic Insurance Plan Dual Elig Plan Dual Elig Care Teams Hot Blast Worker Relationship Specialty Start Date End Date Frances Fowler RN PCP - General Family Medicine 11/09/20
--- OUTSIDE RECORDS SUMMARY | 2024-08-20 11:02 | XMS_ITS | Encounter Summary ---
Author Organization [employer] Address [address] [place] [address] Care Team Providers Care Cupola Patcher Helper Name Role Phone Mary Flores MD Primary Care Provider [phone] Reason for Visit * Reason Comments Med Change Request Encounter Details Date Type Department Care Team ([facility] st Contact Info) Description 12/05/2023 Refill [facility] [address] [place], [place] [phone] Tyrel Trivedi MD [address] [place] [address] Social History Tobacco Use Types Packs/Day Years [...] 08/25/2024 2:00 PM EDT Office Visit [facility] MED[facility]INE [address] [place] [address] Mary Flores MD [address] [place] [address] documented as of this encounter Visit Diagnoses Not on filedocumented in this encounter Additional Health Concerns Assessment Noted Time PHQ-9 Depression Total Score: 7 11/10/19 24 2:30 PM EDT documented as of this encounter Care Teams Cupola Patcher Helper Relationship Specialty Start Date End Date Mary Flores MD [address] [place] [address] [phone] PCP - General Family Medicine 01/05/22 documented as of this encounter
--- OUTSIDE RECORDS SUMMARY | 2024-08-20 11:02 | XMS_ITS | Encounter Summary ---
Author Organization [employer] [facility] Address [address] [place] [address] [address] [place] [address] Care Team Providers Care Mapping Technician Name Role Phone Mary Flores MD Primary Care Provider [phone] Reason for Visit * Reason Onset Date Comments Referral 08/01/2022 Encounter Details Date Type Department Care Team (Late st Contact Info) Description 08/01/2022 Telephone [facility] MEDICINE 230 [place], [place] [phone] Mary Flores MD [address] [place], [place] [phone] Referral Social History Tobacco Use Types Packs/Day [...] [facility] Please contact pt at [phone] chinese Speaker documented in this encounter Plan of Treatment Upcoming Encounters Date Type Department Care Team (Late Contact Info) Description 08/25/2024 2:00 PM EDT Office Visit [facility] MED[facility]INE [address] [place], [place] [phone] Mary Flores MD [address] [place], [place] [phone] documented as of this encounter Visit Diagnoses Not on filedocumented in this encounter Care Teams Mapping Technician Relationship Specialty Start Date End Date Mary Flores MD [address] [place], [place] [phone] PCP - General Family Medicine 01/05/22 documented as of this encounter
--- OUTSIDE RECORDS SUMMARY | 2024-08-20 11:02 | XMS_ITS | Encounter Summary ---
Author Organization [employer] Address [address] 7[address] [place] [address] Care Team Providers Care Leather Repairer Name Role Phone Mary Flores MD Primary Care Provider [phone] Reason for Visit * Reason Onset Date Comments Durable Medical Equipment 07/08/2024 Encounter Details Date Type Department Care Team ([facility] st Contact Info) Description 07/08/2024 Telephone [facility] MED[facility]INE [address] [place] [address] Mary Flores MD [address] [place] [address] Durable Medical Equipment Social History Tobacco Use [...] 08/25/2024 2:00 PM EDT Office Visit [facility] MED[facility]INE [address] [place] [address] Mary Flores MD [address] [place] [address] documented as of this encounter Visit Diagnoses Not on filedocumented in this encounter Additional Health Concerns Assessment Noted Time PHQ-9 Depression Total Score: 7 11/10/19 24 2:30 PM EDT documented as of this encounter Care Teams Leather Repairer Relationship Specialty Start Date End Date Mary Flores MD [address] [place] [address] [phone] PCP - General Family Medicine 01/05/22 documented as of this encounter
--- OUTSIDE RECORDS SUMMARY | 2024-08-20 11:02 | XMS_ITS | Encounter Summary ---
Author Organization [employer] [facility] Address [address] 7t [place] [address] Care Team Providers Care Produce Inspector Name Role Phone Mary Flores MD Primary Care Provider [phone] Reason for Visit * Reason Comments Med Refill Encounter Details Date Type Department Care Team (Late Contact Info) Description 08/15/2022 Refill [facility] [address] [place] [phone] Keri Ochoa MD [address] [place] [address] [phone] Social History Tobacco Use Types Packs/Day Years [...] Description 08/25/2024 2:00 PM EDT Office Visit [facility] [address] [place] [address] Mary Flores MD [address] [place] [address] [phone] documented as of this encounter Visit Diagnoses Not on filedocumented in this encounter Care Teams Produce Inspector Relationship Specialty Start Date End Date Mary Flores MD [address] [place] [address] PCP - General Family Medicine 01/05/22 documented as of this encounter
--- OUTSIDE RECORDS SUMMARY | 2024-08-20 11:02 | XMS_ITS | Continuity of Care Document ---
Author Organization [facility] Address [address] [place] [address] Phone Care Team Providers Care Agronomy Specialist Name Role Phone Juan DE LA TORRE, [...] Mins- [place] & [place] [facility], [address] [place] [address] [address], [place], [id number], [place] tel:[phone] [facility] [place] [facility] [place] Venous insufficiency (chronic) (peripheral) 5 Juan DE LA TORRE RVT, HAMLET Simon. [address], [address], [facility], [place], [id number] , [place]. [phone] Referring Provider: Mary Flores MD, [address] [place] [address], [address]. tel:[phone] [facility], [address] [place] [address] [address], [id number], [place] [phone] [facility] [place] Pain in right leg 5 Juan DE LA TORRE RVT, HAMLET Simon. [address] [place] [address], [facility], [place], [id number] , [place]. [phone] Referring Provider: Mary Flores MD, [address] [place] [address], [address]. tel:[phone] [facility], [address] [place] [address] [address], [id number], [place] tel:[phone] [facility] [place] Encounter for follow-up examination after completed treatment for conditions other than malignant neoplasmPain in right leg 4 Juan DE LA TORRE RVT, HAMLET Simon. [address], [facility] [address], [facility], [place], [id number] , [place]. [phone] Referring Provider: Mary Flores MD, [address] [place] [address], [address]. tel:[phone] [facility], [address] [place] [address] [address], [id number], [place] tel:[phone] [facility] [place] Varicose veins of right lower extremity with other complications 4 Juan DE LA TORRE RVT, HAMLET Simon. [address] [facility] [address], [facility], [place], [id number] , [place]. [phone] Referring Provider: Mary Flores MD, [address] [place] [address], [address]. tel:[phone] [facility], [address] [place] [address] Dr [address]SuChanell [place], [id number], [place] tel:[phone] [facility] - [place] No Information Nov-0 4 Juan DE LA TORRE RVT, HAMLET Simon. [address], [address], [facility], [place], [id number] , [place]. tel:[phone] Offic/outpt E&m Estab 5 Min Trial- [place] & [place] [facility], [address] [place] [address] Dr [address]SuChanell [place], [id number], [place] tel:[phone] [facility] [place] Chronic venous hypertension (idiopathic) with other complications of bilateral lower extremity Oct- 4 Juan DE LA TORRE RVT, HAMLET Simon. [address] [place] [address], [facility], [place], [id number] , [place]. tel:[phone] Referring Provider: Mary Flores MD, [address] [place] [address], [address]. tel:[phone] Offic Cons New/estab Mod 40 Mi- CT & [place] [facility], [address] [place] [address] Dr [address] 1000[place], [id number], [place] tel:[phone] [facility] Hereditary lymphedemaCramp and spasmChronic venous hypertension (idiopathic) with other complications of bilateral lower extremityPain in right legPain in left legRestless legs syndromeVenous insufficiency (chronic) (peripheral)Lym phedema, not elsewhere classifiedLocal ized edema Sep-0 4 Juan DE LA TORRE RVT, HAMLET Simon. [address], [place] [address], [facility], [place], [id number] , [place]. tel:[phone] Referring Provider: Mary Flores MD, [address] [place] [address], [address]. tel:[phone] [facility], [address] [place] [address] Dr [address] 1000SuChanell [place], [id number], [place] tel:[phone] CVR [facility] Chronic venous hypertension (idiopathic) with other complications of bilateral lower extremity Juan DE LA TORRE, RVT, RPVI Alfred. [address], [address], [place], [place], [id number] , . tel:[phone] Referring Provider: Mary Flores MD, [address] [place], [address]. tel:[phone] Family History Family Member Type Diagnosis Age At Onset No Information Payers Payer name Insurance type Covered libertarian ID Rosalind lemus(s) [facility] CI [id number] Social History Type Description Quantity Date Captured [...]
--- OUTSIDE RECORDS SUMMARY | 2024-08-20 11:02 | XMS_ITS | Encounter Summary ---
Author Organization [employer] Address [address] [place] [address] Care Team Providers Care Night Time Babysitter Name Role Phone Mary Flores MD Primary Care Provider [phone] Reason for Visit * Reason Onset Date Comments ER Follow-up 08/09/2024 Encounter Details Date Type Department Care Team ([facility] st Contact Info) Description 08/09/2024 Telephone [facility] MEDICINE [address] [place] [address] Mary Flores MD 230 [place] [address] ER Follow-up Social History Tobacco Use Types [...] 08/09/2024 9:32 AM EDT Triage call with [facility] [place] [id number] Pt was hospitalized 08/06/24 [place] [facility] [place], pleural effusion and SOB. (Report [...] ED visit on : Date: 08/06/24 Hospital: [facility] Seen for: Chest Pain Symptomatic Yes *if yes message should go to Triage Patient advised will forward to team nurse for follow up Contact pt at [phone] documented in this encounter Plan of Treatment Upcoming Encounters Date Type Department Care Team (Late st Contact Info) Description 08/25/2024 2:00 PM EDT Office Visit [facility] MEDICINE [address] [place] [address] Mary Flores MD [address] [place], [place] [phone] documented as of this encounter Visit Diagnoses Not on filedocumented in this encounter Additional Health Concerns Assessment Noted Time PHQ-9 Depression Total Score: 7 11/10/19 24 2:30 PM EDT documented as of this encounter Care Teams Night Time Babysitter Relationship Specialty Start Date End Date Mary Flores MD [address] [place] [id number] PCP - General Family Medicine 01/05/22 documented as of this encounter
--- OUTSIDE RECORDS SUMMARY | 2024-08-20 11:02 | XMS_ITS | Clinical Summary ---
Author Organization [employer] Address [address] [facility] [address] [place] [address] Care Team Providers Care Gambling Monitor Name Role Phone Mary Flores MD Primary Care Provider [phone] Allergies Active Allergy Reactions Criticality Noted Date Comments Morphine Rash Low 09/29/2019 Medications albuterol (2.5 MG/3ML) 0.083% nebulizer solution INHALE 1 AMPULE USING A NEBULIZER EVERY 4 HOURS NEEDED FOR WHEEZING OR SHORTNESS OF BREATH Active Linzess 290 MCG capsule TAKE 1 [...] BEDTIME Active Blood Glucose Monitoring Suppl (FreeStyle [place] Lite) w/Device kit Active cetirizine (ZyrTEC) 10 [...] hours as needed (SOB or wheezing). Active Dupixent 300 MG/2ML solution auto-injector Inject [...] cleanup (will not trigger notification to Pharmacy)) doxycycline (Vibramycin) 100 MG capsule Take 1 capsule by mouth 2 times daily. 2024 Active Problems Problem Noted Date Diagnosed [...] copies of [place] exams [place] Hiatal hernia 08/06/2021 Obstructive sleep apnea syndrome [...] Description 08/11/2024 9:30 AM EDT Office Visit [facility] [address] [place] [phone] MD Pneumonia due to infectious organism, unspecified laterality, unspecified part of lung (Primary Dx) 08/11/2024 Travel 08/09/[address] [address] Mary Flores MD ER Follow-up 08/06/2024 Orders Only GENERIC EXTERNAL DATA DEPARTMENT Provider, Generic External Data 07/23/[address] [address] Mary Flores MD 07/12/2024 3:30 PM EST Office Visit [facility] [address] [place] [address] Mary Flores MD Chronic obstructive pulmonary disease, unspecified COPD type (CMS/HCC) (Primary Dx); Dietary counseling; Exercise counseling; Class 2 severe obesity with serious comorbidity and body mass index (BMI) of 35.0 to 35.9 in adult, unspecified obesity type (CMS/HCC); Depression, recurrent (CMS/HCC); Mixed stress and urge incontinence; Irritable bowel syndrome with constipation; Enuresis, nocturnal only; Essential hypertension; Obstructive sleep apnea syndrome; Herniated lumbar intervertebral disc 07/12/2024 Travel 07/08/2024 Telephone [facility] [address] [place] [address] Mary Flores MD Durable Medical Equipment 07/06/2024 Telephone [facility] [address] [place] [address] Mary Flores MD FYI 07/05/2024 Orders Only GENERIC EXTERNAL DATA DEPARTMENT Provider, Generic External Data 06/14/2024 Refill [facility] [address] [place], [place] [phone] Mary Flores MD 05/27/2024 Telephone [facility] [address] [place], [place] [phone] Mary Flores MD Durable Medical Equipment from [...] Description 08/25/2024 2:00 PM EDT Office Visit [facility] [address] [place] [address] Mary Flores MD [address] [place], [place] [phone] Health Maintenance Due Date Last Done Comments [...] Procedure Name Priority Date/Time Associated Diagnosis Comments CTA CHEST PE PROTOCAL Routine 08/15/2024 3:56 PM EDT XR CHEST 2 VIEWS Routine 08/15/2024 3:11 PM EDT HIGH SENSITIVITY TROPONIN I Routine 08/06/2024 10:20 [...] Recently Relevant to Health Maintenance Results * CTA Chest PE Protocal (08/15/2024 3:56 PM EDT) Anatomical Region Laterality Modality Body, Chest Computed Tomogra phy 08/15/2024 3:56 PM EDT Narrative 08/15/2024 3:57 PM EDT ? [facility] ?[address] ?[place] [address] ? CT Scan Report ? Signed ? Patient: Zamora Ordonez,Margarita I ?MR#: ?? [id number] ? : 1950 ?Acct:[id number] ? Age/Sex: 74 / F ?ADM Date: 08/15/24 ? Loc: HO.ED ? Attending Dr: ? Ordering Physician: Jose Martin Rome ?? Date of Service: 08/15/24 ?? Procedure(s): CT angio chest PE protocol ?? Accession Number(s): [id number] ? cc: Mary Flores; Jose Martin Rome ? Report Number: ?? [id number]: Total DLP = ??426.00 mGy-cm ? CLINICAL HISTORY: sob, cp ? CT angiography chest with contrast. 3D Postprocessing. ? Comparison: CT/[place] - CT ANGIO CHEST PE PROTOCOL - 08/15/24 14:42 EDT ?? CR/SR - XR CHEST 2V - 02/04/24 11:41 EDT ? Findings: ?? The heart size is normal. RV/LV ratio is normal. Calcification of the ?? coronary vasculature. ?? The thoracic aorta is normal caliber. ?? No pulmonary artery filling defects. ?? The visualized thyroid and mediastinum are unremarkable. ? Mild left basilar airspace opacity. Small left pleural effusion. ? The upper abdomen is unremarkable. ?? No acute fractures. ? IMPRESSION: ?? 1. No pulmonary embolus. ?? 2. Left basilar pneumonia with small left pleural effusion. ?? 3. Coronary artery disease. ? This document has been electronically signed by: David Villalobos MD on ?? 08/15/2024 15:56:08 ? Dictated By: ?David Villalobos MD ? Signed By: ?<Electronically signed by David Villalobos MD in OV> ? 08/15/247 ? DD/ 55 ? TD/TT: 08/15/241555 ? [employer] Set Up Operator: ? Procedure Note Jordon Ku - 08/15/[address] [address] [address] Scan Report Signed Patient: Margarita Flores [facility]#: [id number] : 9Acct:[id number] Age/Sex: 74 / FADM Date: 08/15/24 Loc: HO.ED Attending Dr: Ordering Physician: Jose Martin Rome Date of Service: 08/15/24 Procedure(s): CT angio chest PE protocol Accession Number(s): [id number] cc: Mary Flores; Jose Martin Rome Report Number: [id number]: Total DLP = 426.00 mGy-cm CLINICAL HISTORY: sob, cp CT angiography chest with contrast. 3D Postprocessing. Comparison: CT/[place] - CT ANGIO CHEST PE PROTOCOL - 08/15/24 14:42 EDT CR/SR - XR CHEST 2V - 02/04/24 11:41 EDT Findings: The heart size is normal. RV/LV ratio is normal. Calcification of the coronary vasculature. The thoracic aorta is normal caliber. No pulmonary artery filling defects. The visualized thyroid and mediastinum are unremarkable. Mild left basilar airspace opacity. Small left pleural effusion. The upper abdomen is unremarkable. No acute fractures. IMPRESSION: 1. No pulmonary embolus. 2. Left basilar pneumonia with small left pleural effusion. 3. Coronary artery disease. This document has been electronically signed by: David Villalobos MD on 08/15/2024 15:56:08 Dictated By: David Villalobos MD Signed By: <Electronically signed by David Villalobos MD in OV> 08/15/24 1557 DD/ 1556 TD/TT: 08/15/24 1556 [employer] Set Up Operator: [facility] External Provider IMG CT PROCEDURES Edited Result - Final * XR Chest 2 Views (08/15/2024 3:11 PM EDT) Anatomical Region Laterality Modality Chest Radiographic Jessica ging 08/15/2024 3:11 PM EDT Narrative 08/15/2024 3:13 PM EDT ? [facility] ?[address] ?[place] [address] ?XRay Report ? Signed ? Patient: Zamora Ordonez,Margarita I ?MR#: ?? [id number] ? : 1950 ?Acct:[id number] ? Age/Sex: 74 / F ?ADM Date: 04/06/25 ? Loc: HO.ED ? Attending Dr: ? Ordering Physician: Jose Martin Rome ?? Date of Service: 08/15/24 ?? Procedure(s): XR chest 2V ?? Accession Number(s): [id number] ? cc: Mary Flores; Jose Martin Rome ? CLINICAL HISTORY: chest pain ? 2 view chest x-ray ? Comparison: CR/SR - XR CHEST 2V - 02/04/24 11:41 EDT ? Findings: ?? Small left pleural effusion. Left basilar airspace opacity. ?? Heart size is normal. ?? No acute fracture. ? IMPRESSION: ?? Left basilar pneumonia with parapneumonic effusion. Pneumonia follow-up ? This document has been electronically signed by: David Villalobos MD on ?? 08/15/2024 15:11:54 ? Dictated By: ?David Villalobos MD ? Signed By: ?<Electronically signed by David Villalobos MD in OV> ? 08/15/24 1512 ? DD/ 1511 ? TD/TT: 08/15/24 1511 ? [employer] Set Up Operator: ? Procedure Note Jordon Ku - 08/15/[address] [address] XRay Report Signed Patient: Margarita Flores [facility]#: [id number] : 9Acct:[id number] Age/Sex: 74 / FADM Date: 08/15/24 Loc: HO.ED Attending Dr: Ordering Physician: Jose Martin Rome Date of Service: 08/15/24 Procedure(s): XR chest 2V Accession Number(s): [id number] cc: Mary Flores; Jose Martin Rome CLINICAL HISTORY: chest pain 2 view chest x-ray Comparison: CR/SR - XR CHEST 2V - 02/04/24 11:41 EDT Findings: Small left pleural effusion. Left basilar airspace opacity. Heart size is normal. No acute fracture. IMPRESSION: Left basilar pneumonia with parapneumonic effusion. Pneumonia follow-up This document has been electronically signed by: David Villalobos MD on 08/15/2024 15:11:54 Dictated By: David Villalobos MD Signed By: <Electronically signed by David Villalobos MD in OV> 08/15/24 1512 DD/ 1511 TD/TT: 08/15/24 1511 [employer] Set Up Operator: [facility] External Provider IMG XR PROCEDURES Edited Result - Final * High Sensitivity Troponin I (08/06/2024 10:20 AM EDT) Only the most recent of2 resultswithin the time period is included. TROPONIN I HIGH SENSITIVITY <2.7 <3.5 - 17.0 ng/L [facility] Comment:The Mariscal high sens itivity Troponin-I results should beused in conjunction with other diagnostic information suchas ECG, clinical observations and information, and patientsymptoms to aid in the diagnosis of MD. 08/06/2024 10:2 0 AM EDT 08/06/2024 10:23 AM EDT Generic External Data Provider LAB BLOOD ORDERAB LES Final Result [facility] [address] [place], [place] [phone] * CT Chest w/ Contrast (08/06/2024 9:08 AM EDT) Anatomical Region Laterality Modality Body, Chest Computed Tomogra phy 08/06/2024 9:08 AM EDT Narrative 08/06/2024 9:42 AM EDT ? [facility] ?[address] ?[place] [address] ? CT Scan Report ? Signed ? Patient: Margarita Flores I ?MR#: ?? [id number] ? : 1950 ?Acct:[id number] ? Age/Sex: 74 / F ?ADM Date: 03/28/25 ? Loc: HO.ED ? Attending Dr: ? Ordering Physician: Bettina Mccloud ?? Date of Service: 08/06/24 ?? Procedure(s): CT chest w IV con ?? Accession Number(s): [id number] ? cc: Mary Flores; Bettina Mccloud ? Report Number: ?? [id number]: Total DLP = ??250.00 mGy-cm ?? EXAMINATION: [...] ?08/06/24 0940 ? DD/ 0908 ? TD/TT: 08/06/24 0928 ? [employer] Set Up Operator: ? Procedure Note Donotuseinterpreter, Image - 08/06/[address] [address] [address] Scan Report Signed Patient: Margarita Flores IMR#: [id number] : 9Acct:[id number] Age/Sex: 74 / FADM Date: 08/06/24 Loc: .ED Attending Dr: Ordering Physician: Bettina Mccloud Date of Service: 08/06/24 Procedure(s): CT chest w IV con Accession Number(s): [id number] cc: Mary Flores; Bettina Mccloud Report Number: [id number]: Total DLP = 250.00 mGy-cm EXAMINATION: CT [...] Alfred Stewart MD 08/06/2024 09:40 AM EDT RP Dictated By: Alfred Stewart MD Signed By: <Electronically signed by Alfred Stewart MD in OV> 08/06/[address] DD/ 7 TD/TT: 08/06/24927 [employer] Set Up Operator: [facility] External Provider IMG CT PROCEDURES Final Result * XR Chest 1 View (08/06/2024 7:57 AM EDT) Anatomical Region Laterality Modality Chest Radiographic Jessica ging 08/06/2024 7:57 AM EDT Narrative 08/06/2024 8:27 AM EDT ? [facility] ?[address] ?[place] [address] ?XRay Report ? Signed ? Patient: Margarita Flores I ?MR#: ?? [id number] ? : 1950 ?Acct:[id number] ? Age/Sex: 74 / F ?ADM Date: 08/06/25 ? Loc: HO.ED ? Attending Dr: ? Ordering Physician: Bettina Mccloud ?? Date of Service: 08/06/24 ?? Procedure(s): XR chest 1V ?? Accession Number(s): [id number] ? cc: Mary Flores; Bettina Mccloud ? [...] ??Alfred Stewart MD ??08/06/2024 08:24 AM EDT ? Dictated By: ?Alfred Stewart MD ? Signed By: ?<Electronically signed by Alfred Stewart MD in OV> ?08/06/24 0824 ? DD/ 0757 ? TD/TT: 08/06/24 0820 ? [employer] Set Up Operator: ? Procedure Note Jordon uK - 08/06/[address] [address] XRay Report Signed Patient: Margarita Flores IMR#: [id number] : 9Acct:[id number] Age/Sex: 74 / FADM Date: 08/06/24 Loc: .ED Attending Dr: Ordering Physician: Bettina Mccloud Date of Service: 08/06/24 Procedure(s): XR chest 1V Accession Number(s): [id number] cc: Mary Flores; Bettina Mccloud EXAMINATION: XR [...] 08/06/24 0824 DD/ 0757 TD/TT: 08/06/24 0820 [employer] Set Up Operator: [facility] External Provider IMG XR PROCEDURES Final Result * SARS-CoV-2 RNA, Influenza A/B, and RSV RNA, Ql NAAT (08/06/2024 7:38 AM EDT) Influenza A PCR NEGATIVE Negative [facility] Influenza B PCR NEGATIVE Negative [facility] Resp Syncy Virus RNA Qual PCR NEGATIVE Negative [facility] SARS COV2 PCR NEGATIVE Negative [facility] Comment:All test results mus t [...] use by authorized laboratories.Testing performed on the [employer] GeneXpert utilizingreal-time RT-PCR.All SARS CoV2 and positive influenza A/B results arereported to [facility]. 08/06/2024 7:38 AM EDT 08/06/2024 7:42 AM EDT Generic External Data Provider LAB MICROBIOLOGY - GENERAL ORDERABLES Final Result [facility] [address] [place] [address] [phone] * (ABNORMAL) CBC auto differential (08/06/2024 6:32 AM EDT) Only the most recent of2 resultswithin the time period is included. White Blood Count 9.5 4.8 - 10.8 X10*3/uL [facility] Red Blood Count 4.54 4.20 - 5.50 X10*6/uL [facility] Hemoglobin 13.6 12.0 - 16.0 g/dl [facility] Hematocrit 39.9 37.0 - 47.0 % [facility] Mean Corpuscular Volume 87.9 80.0 - 98.0 fL [facility] Mean Corpuscular Hemoglobin 30.0 27.0 - 33.0 pg [facility] Mean Corpuscular HGB Conc 34.1 31.0 - 35.0 g/dl [facility] Red Cell Distribution Width 12.9 11.0 - 16.0 % [facility] Platelet Count 267 160 - 400 X10*3/uL [facility] Mean Platelet Volume 10.7 9.4 - 12.3 fL [facility] Neutrophils Percent Auto 65.8 45 - 73 % [facility] Imm Gran Pct Auto 0.3 0.0 - 0.4 % [facility] Lymphocytes Percent Auto 16.2(L) 20 - 40 % [facility] Monocytes Percent Auto 9.3 2 - 11 % [facility] Eosinophils Percent Auto 7.7(H) 0 - 4 % [facility] Basophils Percent Auto 0.7 0 - 2 % [facility] NRBC Pct Auto 0.0 0.0 - 0.2 /100WBC [facility] Neutrophils Absolute Auto 6.3 2.0 - 8.3 x10*3/uL [facility] Imm Gran Abs Auto 0.03 0.00 - 0.03 X10*3/uL [facility] Lymphocytes Absolute Auto 1.5 1.2 - 4.9 X10*3/uL [facility] Monocytes Absolute Auto 0.9 0.1 - 1.2 X10*3/uL [facility] Eosinophils Absolute Auto 0.7(H) 0.0 - 0.4 X10*3/uL [facility] Basophils Absolute Auto 0.1 0.0 - 0.2 X10*3/uL [facility] NRBC Abs Auto 0.000 0.0 - 0.012 X10*3/uL [facility] 08/06/2024 6:32 AM EDT 08/06/2024 6:35 AM EDT us Generic External Data Provider LAB BLOOD ORDERAB LES Final Result [facility] [address] [place], [place] [phone] * (ABNORMAL) Comprehensive Metabolic Panel (08/06/2024 6:32 AM EDT) Sodium 138 135 - 145 mmol/L [facility] Potassium 4.3 3.3 - 5.1 mmol/L [facility] Chloride 108 96 - 108 mmol/L [facility] Carbon Dioxide 24 22 - 29 mmol/L [facility] Anion Gap 10(L) 12 - 20 [facility] Urea Nitrogen (BUN) 14 9 - 16 mg/dL [facility] Creatinine, Serum 0.67 0.5 - 1.4 mg/dL [facility] Creatinine Clr Calc Pharmacy 77.7 [facility] Comment:Provided height and weight: 160.02 cm,91 kg.eGFR (calculated from the MDRD study equation) and eCrCl(calculated from the Cockcroft-Gault equation) are based ondifferent parameters and may not yield comparable results.If eCrCl result is absurd, please check patient'sheight/weight. Estimated Glomerular Filt Rate >60 [facility] Comment:Chronic Kidney Disea se: Estimated GFR < 60 mL/min/1.38b0Ndgqti Kidney Disease: Estimated GFR < 15 mL/min/1.73m2 Glucose 140(H) 60 - 115 mg/dL [facility] Calcium 9.5 8.4 - 10.2 mg/dL [facility] Bilirubin, Total 1.4(H) 0.0 - 1.0 mg/dL [facility] Aspartate Amino Transferase 23 5 - 31 U/L [facility] Alanine Aminotransferase 16 0 - 31 U/L [facility] Total Protein 7.0 6.5 - 8.0 g/dL [facility] Albumin Level 3.9 3.5 - 5.0 g/dL [facility] Alkaline Phosphatase 83 39 - 117 U/L [facility] 08/06/2024 6:32 AM EDT 08/06/2024 6:35 AM EDT us Generic External Data Provider LAB BLOOD ORDERAB LES Final Result [facility] [address] [place] [address] [phone] * MR Cervical Spine w/o Contrast (07/09/2024 7:40 AM EST) Anatomical Region Laterality Modality Spine, C-spine Magnetic Resonan ce 07/09/2024 7:40 AM EST Narrative 07/09/2024 8:45 AM EST ? [facility] ?[address] [facility] ?[place] [address] ? Magnetic Resonance Report ? Signed ? Patient: Margarita Flores I ?MR#: ?? [id number] ? : 1950 ?Acct:[id number] ? Age/Sex: 74 / F ?ADM Date: 07/09/24 ? Loc: HO.MRI ? Attending Dr: France Verduzco [employer] ? Ordering Physician: France Verduzco [employer] ?? Date of Service: 07/09/24 ?? Procedure(s): MR cervical spine wo con ?? Accession Number(s): [id number] ? cc: France Verduzco; Mary Flores ? [...] Cox MD ??07/09/2024 08:42 AM ?? EST RP ? Dictated By: ?Gume Schuster MD ? Signed By: ?<Electronically signed by Gume Riddle MD in OV> ? 07/09/24 0842 ? DD/ 0740 ? TD/TT: 07/09/24 0805 ? [employer] Set Up Operator: ? Procedure Note Jordon Ku - 07/09/[address] [address] Magnetic Resonance Report Signed Patient: Margarita Flores [facility]#: [id number] : 9Acct:[id number] Age/Sex: 74 / FADM Date: 07/09/24 Loc: HO.MRI Attending Dr: France BUSTAMANTE Ordering Physician: France Verduzco Date of Service: 07/09/24 Procedure(s): MR cervical spine wo con Accession Number(s): [id number] cc: France Verduzco; Mary Flores EXAMINATION: MR [...] Schuster MD Signed By: <Electronically signed by Gmue Riddle MDin OV> 07/09/24841 DD/ 0740 TD/TT: 07/09/24 0805 [employer] Set Up Operator: [facility] External Provider IMG MRI PROCEDURES Final Result * Sed Rate by Modified Marioergren (07/05/2024 10:48 AM EST) Erythrocyte Sedimentation Rate 8 0 - 20 MM/HR [facility] Comment:Patients with polycy themia and many hemoglobin abnormalitiesmay have depressed sed rates whereas patients with anemiamay have elevated sed rates. 07/05/2024 10:4 8 AM EST 07/05/2024 10:48 AM EST Generic External Data Provider LAB BLOOD ORDERAB LES Final Result Performing Organization Address City/[facility] Co de Phone Number [facility] [address] [place] [phone] * (ABNORMAL) Immunoglobulins, Quantitative, IgA, IgG, IgM (07/05/2024 10:48 AM EST) IMMUNOGLOBULIN G 1176 600 - 1540 mg/dL [facility] IMMUNOGLOBULIN A 392(A) 70 - 320 mg/dL [facility] Immunoglobulin M 80 50 - 300 mg/dL [facility] Comment:THIS TEST WAS PERFOR MED AT:[employer] [place] [id number] SWENSON MD 07/05/2024 10:4 8 AM EST 07/05/2024 10:48 AM EST Generic External Data Provider LAB BLOOD ORDERAB LES Final Result Performing Organization Address [facility]/ZIP Co de Phone Number [facility] [address] [place] [phone] * Immunoglobulin E (07/05/2024 10:48 AM EST) Immunoglobulin E 15 <TP=375 kU/L [facility] Comment:THIS TEST WAS PERFOR MED AT:[employer] [place] [id number] SWENSON MD 07/05/2024 10:4 8 AM EST 07/05/2024 10:48 AM EST us Generic External Data Provider LAB BLOOD ORDERAB LES Final Result Performing Organization Address [facility]/ZIP Co de Phone Number [facility] [address] [place] [phone] * (ABNORMAL) Basic Metabolic Panel (07/05/2024 10:48 AM EST) Pathologist [facility] Sodium 140 135 - 145 mmol/L [facility] Potassium 4.1 3.3 - 5.1 mmol/L [facility] Chloride 107 96 - 108 mmol/L [facility] Carbon Dioxide 27 22 - 29 mmol/L [facility] Anion Gap 10(L) 12 - 20 [facility] Urea Nitrogen (BUN) 13 9 - 16 mg/dL [facility] Creatinine, Serum 0.64 0.5 - 1.4 mg/dL [facility] Estimated Glomerular Filt Rate >60 [facility] Comment:Chronic Kidney Disea se: Estimated GFR < 60 mL/min/1.97u9Hzdlze Kidney Disease: Estimated GFR < 15 mL/min/1.73m2 Glucose 91 60 - 115 mg/dL [facility] Calcium 9.6 8.4 - 10.2 mg/dL [facility] 07/05/2024 10:4 8 AM EST 07/05/2024 10:48 AM EST Generic External Data Provider LAB BLOOD ORDERAB LES Final Result Performing Organization Address [facility]/ZIP Co de Phone Number [facility] [address] [place] [phone] * POCT HGB A1C (11/10/2023 2:27 PM EDT) Hemoglobin A1C 5.2 4.0 - 6.0 % QC Media Lot # [id number] Lot# Expiration Date Blood 11/10/2023 2:27 PM EDT Mary Flores MD POINT OF CARE TEST ENTER/EDIT ORDERABLES Final Result * Lipid Panel, Standard (07/23/2023 3:35 PM EDT) Triglycerides 142 <150 mg/dL [facility] Comment:Desirable Triglyceri de: less than 150 mg/dLBorderline High Triglyceride 150-199 mg/dLHigh Triglyceride: 200-499 mg/dLVery High Triglyceride: greater than or equal to 5OO mg/dL Cholesterol 152 <200 mg/dL [facility] Comment:Desirable Cholestero l: less than 200 mg/dLBorderline High Cholesterol: 200-239 mg/dLHigh Cholesterol: greater than 239 mg/dL LDL Cholesterol Calculated 77 <100 mg/dL [facility] Comment:Desirable LDL: less than 100 mg/dLNear Optimal/Above Optimal LDL: 110- 129 mg/dLBorderline High LDL: 130-159 mg/dLHigh LDL: 160-189 mg/dLVery High LDL: greater than or equal to 190 mg/dL HDL Cholesterol 47 >40 mg/dL [facility] Comment:Desirable HDL: great er than 40 mg/dL Note: This HDL assay may give artificially low results in patients with liver disease. Blood Venous blood specimen / Unknown 07/23/2023 3:35 PM EDT 07/23/2023 4:17 PM EDT Mary Flores MD LAB BLOOD ORDERABLES Final Res ult [facility] [address] [place] [address] [phone] * HEPATITIS C AB W/REFL TO HCV RNA, QN, PCR (09/19/2021 9:58 AM EDT) HEPATITIS C ANTIBODY NON-REACT [facility] NON-REACT [facility] INDEX 0.01 <1.00 [facility] Comment: ?? HCV antibody was non-reactive. There is no laboratory ?? evidence of HCV infection. ?? In most cases, no further action is required. However, if recent HCV exposure is suspected, a test for HCV RNA (test code 38977) is suggested. ?? For additional information please refer to http://education.Appear Here/faq/ILL52o5 (This link is being provided for informational/ educational purposes only.) ?? 09/19/2021 9:58 AM EDT Frances BUSTAMANTE HISTORICAL/NON ORDERABLE LABS Final Result [facility]ly [facility] [address] * ALBUMIN, RANDOM URINE W/CREATININE (09/13/2021 2:19 PM EDT) Microalbumin Urine <0.2 See Note: mg/dL [facility] Comment: Reference Range: ?? Reference Range Not established Microalb/Creat Ratio NOTE <30 mcg/mg creat [facility] Comment: NOTE: The urine albumin [...] SYSTEM 09/13/2021 2:19 PM EDT Frances Malcolm [employer] LAB URINE ORDERABLES Final Res ult [facility] [address] [place] [address], * Hm Colonoscopy (01/19/2021 8:45 AM EDT) Historical Provider HEALTH MAINTENANCE Final Result from Last 3 Months or Most Recently Relevant to Health Maintenance Insurance [facility] MEDICAID STAND ADULT Care Teams Gambling Monitor Relationship Specialty Start Date End Date Mary Flores MD [address] [place] [address] [phone] PCP - General Family Medicine 01/05/22
--- OUTSIDE RECORDS SUMMARY | 2024-08-20 11:02 | XMS_ITS | Encounter Summary ---
Author Organization [employer] Address [address] [place] [address] Care Team Providers Care Rehabilitation Counsellor Name Role Phone Mary Flores MD Primary Care Provider [phone] Encounter Details Date Type Department Care Team (Late st Contact Info) Description 12/17/2023 Orders Only [facility] [address] [place] [address] Mary Flores MD [address] [place] [address] Social History Tobacco Use Types Packs/Day Years [...] Office Visit [facility] [address] [place] [address] Mary Flores MD [address] [place] [address] documented as of this encounter Visit Diagnoses Not on filedocumented in this encounter Additional Health Concerns Assessment Noted Time PHQ-9 Depression Total Score: 7 11/10/19 24 2:30 PM EDT documented as of this encounter Care Teams Rehabilitation Counsellor Relationship Specialty Start Date End Date Mary Flores MD [address] [place], [place] [id number] PCP - General Family Medicine 01/05/22 documented as of this encounter
--- OUTSIDE RECORDS SUMMARY | 2024-08-20 11:02 | XMS_ITS | Encounter Summary ---
Author Organization [employer] Address [address] [place] [address] Care Team Providers Care Cupola Mechanic Name Role Phone Mary Flores MD Primary Care Provider [phone] Encounter Details Date Type Department Care Team (Late st Contact Info) Description 12/05/2023 Orders Only [facility] [address] [place] [address] Tyrel Trivedi MD [address] [place] [address] Social History Tobacco Use Types Packs/Day Years [...] Visit [facility] [address] [place] [address] Mary Flores MD [address] [place] [address] documented as of this encounter Visit Diagnoses Not on filedocumented in this encounter Additional Health Concerns Assessment Noted Time PHQ-9 Depression Total Score: 7 11/10/19 24 2:30 PM EDT documented as of this encounter Care Teams Cupola Mechanic Relationship Specialty Start Date End Date Mary Flores MD [address] [place], [place] [phone] PCP - General Family Medicine 01/05/22 documented as of this encounter
--- OUTSIDE RECORDS SUMMARY | 2024-08-20 11:02 | XMS_ITS | Encounter Summary ---
Author Organization [employer] [facility] Address [address] [facility] [address] [place] [address] Care Team Providers Care Coal Loader Name Role Phone Mary Flores MD Primary Care Provider [phone] Encounter Details Date Type Department Care Team (Latest Contact Info) Description 01/29/2021 Abstract [facility] Dental, Provider, DDS Social History [...] Description 08/25/2024 2:00 PM EDT Office Visit [facility] [address] [place] [address] Mary Flores MD [address] [place] [address] documented as of this encounter Visit Diagnoses Not on filedocumented in this encounter Care Teams Coal Loader Relationship Specialty Start Date End Date Mary Flores MD [address] [place] [address] PCP - General Family Medicine 01/05/22 documented as of this encounter
--- OUTSIDE RECORDS SUMMARY | 2024-08-20 11:02 | XMS_ITS | Encounter Summary ---
Author Organization [employer] Address [address] [place] [address] Care Team Providers Care Event Decorator Name Role Phone Mary Flores MD Primary Care Provider [phone] Reason for Visit * Reason Onset Date Comments filling fell out 01/19/2024 Encounter Details Date Type Department Care Team ([facility] st Contact Info) Description 01/19/2024 Telephone [facility] [address] [place] [address] Sari Mckinnon, DDS [address] [place] [address] filling fell out Social History Tobacco Use [...] Description 08/25/2024 2:00 PM EDT Office Visit [facility] [address] [place] [address] Mary Flores MD [address] [place] [address] documented as of this encounter Visit Diagnoses Not on filedocumented in this encounter Additional Health Concerns Assessment Noted Time PHQ-9 Depression Total Score: 7 11/10/19 24 2:30 PM EDT documented as of this encounter Care Teams Event Decorator Relationship Specialty Start Date End Date Mary Flores MD [address] [place] [address] PCP - General Family Medicine 01/05/22 documented as of this encounter
== END 2024-08-20 11:14 | disposition home or self-care (01) ==
LOC: HO.HPS 10:14
PROVIDERS: PCP General Practice; Visit Provider Hospitalist
DX: J90 Pleural effusion, not elsewhere classified (principal); J44.9 Chronic obstructive pulmonary disease, unspecified; J45.50 Severe persistent asthma, uncomplicated; R91.1 Solitary pulmonary nodule; G47.33 Obstructive sleep apnea (adult) (pediatric); K21.9 Gastro-esophageal reflux disease without esophagitis; J98.11 Atelectasis; J18.9 Pneumonia, unspecified organism; R07.1 Chest pain on breathing
CPT/HCPCS: 99215

== ENCOUNTER 2024-08-20 10:14 | Outpatient (REF) | payer OTHER, SELFPAY ==
--- NOTE | ~2024-08-20 | XR_ITS ---
CLINICAL HISTORY: J90 - Pleural effusion, not elsewhere classified 2 view chest x-ray Comparison: 08/15/2024 Findings: There is a residual or recurrent left pleural effusion with underlying consolidation. Differential considerations would include pneumonia or atelectasis. Heart size is normal. No acute fracture. IMPRESSION: 1. Residual versus recurrent left pleural effusion with underlying consolidation, differential considerations noted. This document has been electronically signed by: Benoit Barahona MD on 08/21/2024 09:05:48
--- OUTSIDE RECORDS SUMMARY | 2024-08-20 11:24 | XMS_ITS | Clinical Summary ---
Author Organization [facility] Address [address] [address] Care Team Providers Care Automobile Body Repairer Name Role Phone Frances Fowler RN Primary [...] DAILY FOR 2 DAYS. 12/21/2020 Active Creon 15422-67138 units capsule TAKE 1 CAPSULE BY MOUTH [...] by mouth 02/12/2021 Active ergocalciferol 1.25 MG (14809 UT) capsule TAKE 1 CAPSULE BY MOUTH [...] Dual Elig Plan Dual Elig Care Teams Automobile Body Repairer Relationship Specialty Start Date End Date Frances Fowler RN PCP - General Family Medicine 11/09/20
--- OUTSIDE RECORDS SUMMARY | 2024-08-20 11:24 | XMS_ITS ---
Author Name Sonya Gallagher NP Address [address] [place] [address] Phone [phone] [facility] Care Team Providers Care Geotechnical Engineering Technician Name Role Phone Sonya Gallagher Unavailable [phone] NATALY CRANDALL Unavailable [phone] Bret Bonner Unavailable [phone] Deanna Casillas Unavailable [phone] CALEB RAMON Unavailable [phone] EDWARD REBOLLEDO Unavailable [phone] Reason for Referral Not Available Allergies, adverse [...] 290 MCG Cap TAKE 1 CAPSULE BY [facility] EVERY MORNING 2021-10-25 No Data Available Albuterol Sulfate HFA 108 (9 0 Base) MCG/ACT Aerosol Solution INHALE 2 PUFFS BY MOUTH EVERY 4 TO 6 HOURS NEEDED 2021-05-30 No Data Available Amitriptyline 100 mg Tab TAKE 1 TABLET B Y MOUTH AT BEDTIME 2021-10-09 No Data Available Creon 07477-04123 UNIT Cap delayed rel TAKE 1 CAPSULE BY MOUTH FOUR TIMES DAILY, WITH MEALS OR SNACKS AND AT BEDTIME 2021-11-08 No Data Available Cyclobenzaprine 10 mg Tab TAKE 1 TABLET BY MOUTH AT BEDTIME 2021-10-09 No Data Available Daliresp 500 MCG Tab TAKE 1 TABLET BY [facility] EVERY DAY 2021-05-30 No Data Available dilTIAZem [...] Available Vitamin D (Ergocalciferol) 1 .25 mg (48554 UT) Cap TAKE 1 CAPSULE BY MOUTH [...] (do not use for phone, instead use 32257-24) [facility] ([place] 04/08/2022 Hypertensive heart disease w ith heart failureHeart failure, unspecifiedUnspecified asthma, uncomplicatedChronic obstructive pulmonary disease, unspecifiedRheumatoid arthritis, unspecifiedHyperlipidemia, unspecifiedDepression, unspecified New patient,40-59min; chronic exacerbation, 2 stable chronic or 1 acute illness add add modifier 95 for video (do not use for phone, instead use 17706-18) [facility] [place] 04/08/2022 New patient,40-59min; chronic exacerbation, 2 stable chronic or 1 acute illness add add modifier 95 for video (do not use for phone, instead use 05642-15) [facility] [place] 04[place]08/2022 New patient,40-59min; chronic exacerbation, 2 stable chronic or 1 acute illness add add modifier 95 for video (do not use for phone, instead use 70908-08) [facility] ([place] 04/08/2022 New patient,40-59min; chronic exacerbation, 2 stable chronic or 1 acute illness add add modifier 95 for video (do not use for phone, instead use 47548-45) [facility] [place] 04/08/2022 New patient,40-59min; chronic exacerbation, 2 stable chronic or 1 acute illness add add modifier 95 for video (do not use for phone, instead use 79366-93) [facility] [place] 04/08/2022 New patient,40-59min; chronic exacerbation, 2 stable chronic or 1 acute illness add add modifier 95 for video (do not use for phone, instead use 65542-62) [facility] [place] 04/08/2022 New patient,40-59min; chronic exacerbation, 2 stable chronic or 1 acute illness add add modifier 95 for video (do not use for phone, instead use 63113-41) [facility] [place] 04/08/2022 New patient,40-59min; chronic exacerbation, 2 stable chronic or 1 acute illness add add modifier 95 for video (do not use for phone, instead use 44072-86) [facility] ([place] 04/08/2022 Estab. patient 20-29min; 1 stable chronic or 2 minor; add add modifier 95 for video, modifier 93 for phone [facility] [place] 05/09/2022 Hypertensive heart disease w ith heart [...] (do not use for phone, instead use 35811-54) [address] 2022-04-09 No Data Available No Data Availa [...] 95 for video, modifier 93 for phone 51350 2022-05-09 No Data Available No Data Availa [...] using a udio and video over the [employer] tablet. Time spent in visit: 20 minutesToday, patient has chief complaint of: monitoring of chronic conditions 2022-05-09 Most recent hospital stay(s) or ER visit(s) and precipitating factors: denies 2022-05-09 Open HEDIS Measure falguni carbajal: done
== END 2024-08-20 10:15 | disposition home or self-care (01) ==
LOC: HO.XRAY 10:14
PROVIDERS: PCP General Practice; Visit Provider Hospitalist
DX: J90 Pleural effusion, not elsewhere classified (principal); J18.9 Pneumonia, unspecified organism; J45.50 Severe persistent asthma, uncomplicated; J44.9 Chronic obstructive pulmonary disease, unspecified; G47.33 Obstructive sleep apnea (adult) (pediatric); R91.1 Solitary pulmonary nodule; R07.1 Chest pain on breathing
CPT/HCPCS: 71046; 99212

== ENCOUNTER → 2024-08-20 10:38 | Outpatient (BNV) | payer OTHER, SELFPAY | PROVIDERS: PCP General Practice; Visit Provider Specialist | DX: J90 Pleural effusion, not elsewhere classified (principal) | CPT/HCPCS: 71046 ==

== ENCOUNTER 2024-08-31 10:19 | Outpatient (AMB) | payer OTHER, SELFPAY ==
[2024-08-31 10:48] VITALS: BP 132/78; PULSE 104; O2SAT 95; BMI 34.2
--- NOTE | 2024-08-31 10:48 | MHC.OFFVIS ---
Vital Signs 08/31/24 10:48 Height 5 ft 3 in Weight 192 lb 14.472 oz BMI 34.2 BP 132/78 Blood Pressure Location Rt brachial Position Sitting Pulse 104 H Pulse Source Pulse Oximeter Pulse Oximetry (%) 95 Oxygen Delivery Method Room Air Intake Visit Reasons: Asthma/COPD Allergies morphine [MORPHINE] Allergy (Intermediate, Verified 08/20/24 10:21) NAUSEA, rash, redness HPI Comments Details: The patient is a 74-year-old woman known asthma. Recently had a CT scan of the abdomen demonstrating hiatal hernia as well. She continues to be on her respiratory regimen which includes Trelegy and also budesonide nebs and albuterol nebs. She had also takes her allergy medicine including singular. Recently she could not find her singular medication nguyen and she has noticed that her respiratory symptoms are getting worse. The patient also has cough. Moderate severity. Tends to be dry. We did talk about the reflux diet. Is going to try to follow it closely. She was slow to improve had a CT scan done again demonstrating airspace disease in the left base. She did undergo bronchoscopy with significant mucus burden status post therapeutic bronchoscopy. 07/15/2023 the patient is here for a pulmonary follow-up visit. Patient overall has been feeling a little bit worse from her asthma. She has been sometime in [place] her asthma was good. However when she made back to this state she started developing again to tightness and wheezing. unfortunately, her nebulizer fell and broke and is no longer working. She needs have a functional nebulizer in view of her severe persistent asthma. will go ahead and order a new nebulizer replacement for the patient at this time. In the meantime she has been having hard time with her CPAP because she has not been getting supplies. I have explained to her that based on the fact that she has not using it the insurance will cover for any supplies. Therefore, she is going to start using at this time. Will review the use with the next download. 09/18/2023 the patient is here for a pulmonary follow-up visit. She unfortunately developed worsening respiratory symptoms. She did go to the hospital she was diagnosed with influenza A. She went to the hospital twice after that with worsening respiratory symptoms cough wheezing chest tightness. She was given prednisone multiple times. The patient was not admitted to the hospital. Her chest x-ray was clear. She still continues to complain of shortness of breath. Even with minimal activity moderate severity. Also complains of some chest congestion. She has been using her nebulizer treatments in addition to her respiratory medications and now she ran out. I will make sure to supply of the medication pharmacy. The patient also will be treated for postviral bacterial infection and also still having wheezing on examination so therefore will place her on a small dose of prednisone that she can taper down slowly to try to improve her respiratory symptoms. If the patient is no better she would come in for chest x-ray. She also struggling with her CPAP. Her CPAP supplies have not been recieved. We did request supplies from the [email or web address] company during the last visit. Will call the DME again. Also she needs a nebulizer replacement that we requested during her last visit. 01/19/2024 the patient is here for a pulmonary follow-up visit. The patient is complaining worsening cough. She does not feel like the Breo is helping her. She also has wheezing and chest tightness. She did have a Symbicort available and she tried that and worked a lot better than her medication. She is also wondering over biologic injections. She is currently taking Spiriva. Will go ahead and maximize her respiratory therapy by switching over to Symbicort and continue the Spiriva. If the patient is no better she can have blood work done to assess her for allergic biologic therapies. In the meantime she does have a new CPAP with her. The CPAP therapy has been affecting beneficial. Her AHI is down 0.5. The patient has been use it more than 4 hours a night which is reassuring. The major issues that has an air leakage from her fullface mask. Will try to get her a different mask, F 30 medium mask on to her [email or web address] company. Her DME company is [employer]. She has not heard from them. I will send prescriptions in order for her to get supplies. The patient otherwise is doing well. Will follow-up in the spring. In the meantime she develops any worsening symptoms prior to that she will come for an earlier assessment. 07/05/2024 the patient is here for pulmonary follow-up visit. Overall the patient has been doing okay. She complains of asthma symptoms on a daily basis. She has been having to use her rescue inhaler daily. If not several times a day. Back in the fall she did have bad respiratory infection positive for RSV she was briefly admitted to the hospital. The patient was treated in now feels like her asthma has never been the same after that. In the meantime she continues use her CPAP. CPAP therapy continues to be affecting beneficial and she does use it for more than 4 hours a night. Her AHI is within normal limits. And she continues to get supplies from her [employer]. She does use a fullface mask which will request. In regards of the uncontrolled asthma symptoms she has had eosinophilia in the past. We will see about checking her blood work again for eosinophils and also IgE and will looking to biologic therapy for her ongoing symptoms. 08/20/2024 the patient is here for a sick visit. Apparently she started developing severe left-sided pleuritic chest pains. She went to the ER thinking she was having hard talk that was back in the beginning of August. He was treated and released. Subsequently she went back to the ER on August 15 for persistent discomfort. At that point she did have a CT scan of the chest. I did personally review. She did have a loculated effusion which is concerning. Also associated with pneumonia on the left side. She continues to have significant pleurisy in hard time breathing. She denies any fevers or chills she is coughing but does hurt to cough so hard to clear secretions. She was given an antibiotic. Now has been about a week since she started antibiotics and she has not seen any improvement. The patient is actually feeling like she is getting worse. I did repeat an x-ray which I personally reviewed demonstrating worsening left-sided pleural effusion. Or opacity difficult to interpret based on the x-ray limitations. In view of the worsening disease I did recommend she go back to the ER. 08/31/2024 the patient is here for a hospital follow-up visit. She was sent over to [facility] where she ended up getting. The chest tube was not effective so therefore she underwent a decortication of the left hemithorax. Surgery went well. She is recovering well. Yesterday though she had a temperature a 101.5 degrees in the VNA nurse mentions some erythema or warmth around the operative site. Respiratory varner she is doing well although still diminished on the left hemithorax. She is going to get an x-ray when able. She is feeling a little nauseous and dizzy right now. I did provide her with some Zofran in order for her to improve her nausea symptoms since started taking by mouth a little bit more. The patient is already taking antibiotics. Will add doxycycline to her regimen to treat for any kind of postoperative cellulitis. If she has any issues prior to the next visit she will call for an earlier assessment. [facility] Medical History Atelectasis of left lung Chronic pain syndrome 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 Sacroiliitis Disc degeneration, lumbar OTILIO (obstructive sleep apnea) Back pain HTN (hypertension) Skin cancer (melanoma) GERD (gastroesophageal reflux disease) Depression OTILIO (obstructive sleep apnea) Kidney stones Pulmonary nodule Severe asthma Primary osteoarthritis involving multiple joints Pneumonia Chronic allergic rhinitis (~03/09/20) Asthma-COPD overlap syndrome Surgical History History of bronchoscopy History of cystoscopy History of laparoscopic appendectomy History of nasal surgery Hx of section Hx of tubal ligation Hx of colonoscopy History of esophagogastroduodenoscopy (EGD) Hx of knee surgery Family History Father No problems noted. Mother No problems noted. Social History Household Members: Children Housing: Apartment Do you presently have visiting nurse or other home services: Yes (private home health aid) Alcohol intake: never Patient Tobacco Use Status: Never used Tobacco e-Cigarette/Vaping Use: Never Used Second Hand Smoke Exposure: No Advance Directives Date on File: 10/13/23 service: No Current occupational status: disabled Current occupation: rt handed Review of Systems Const Denies daytime sleepiness, Reports difficulty sleeping, Reports fever(s) and Denies stops breathing during sleep Eyes Denies change in vision ENT Reports Normal hearing present Card Reports dyspnea Resp Reports cough, Reports pain on inspiration, Reports pain with cough, Reports dyspnea and Reports wheezing Musc Reports back pain Neuro Reports Normal hearing present and Denies Abnormal speech present Aller/Immun Reports wheezing Physical Exam Vital Signs: Last Vital Signs Pulse 104 H 08/31/24 10:48 BP 132/78 08/31/24 10:48 Pulse Ox 95 08/31/24 10:48 Oxygen Delivery Method Room Air 08/31/24 10:48 BMI result Body Mass Index 34.2 Const General: alert Neck Neck: Yes normal visual inspection, Yes full ROM and Yes no lymphadenopathy Chest Chest palpation & inspection: normal inspection of the chest Resp Effort & Inspection: normal respiratory effort Auscultation: no rhonchi, no wheezes and diminished lung sounds Cardio Rate: regular rate Rhythm: regular rhythm Heart sounds: S1 normal heart sound present and S2 normal heart sound present GI Palpation (GI): Soft to palpation and nontender Auscultation: normal bowel sounds Skin General skin exam: rashes and/or lesions noted Neuro Cranial nerves: Yes Normal hearing present Speech: No Abnormal speech present Assessment & Plan Assessment & Plan (1) Loculated pleural effusion: Comment: s/p VATS decortication Code(s): J90 - Pleural effusion, not elsewhere classified Category: Medical (2) Asthma-COPD overlap syndrome: Code(s): J44.9 - Chronic obstructive pulmonary disease, unspecified Category: Medical (3) Severe asthma: Code(s): J45.909 - Unspecified asthma, uncomplicated Category: Medical Qualifiers: Asthma persistence: persistent Asthma complication type: uncomplicated Qualified Code(s): J45.50 - Severe persistent asthma, uncomplicated (4) OTILIO (obstructive sleep apnea): Code(s): G47.33 - Obstructive sleep apnea (adult) (pediatric) Category: Medical (5) Pulmonary nodule: Code(s): R91.1 - Solitary pulmonary nodule Category: Medical (6) GERD (gastroesophageal reflux disease): Code(s): K21.9 - Gastro-esophageal reflux disease without esophagitis Category: Medical Qualifiers: Esophagitis presence: without esophagitis Qualified Code(s): K21.9 - Gastro-esophageal reflux disease without esophagitis (7) Atelectasis of left lung: Code(s): J98.11 - Atelectasis Category: Medical (8) Chest pain: Code(s): R07.9 - Chest pain, unspecified Category: Medical Qualifiers: Chest pain type: chest pain on breathing Qualified Code(s): R07.1 - Chest pain on breathing Plan CXR Continue Abx, add Doxycycline Continue APAP, requesting F30 medium mask continue Daliresp 500mg daily continue symbicort continue Spiriva JOHANA as needed continue Dupixent once better continue singulair F/U 2-3 months Orders: Orders XR chest 2V Today J90 - Pleural effusion, not elsewhere classified Medications: New doxycycline monohydrate 100 mg PO BID 28 tabs 0RF 14 days ondansetron 4 mg PO Q8H PRN 20 tabs 0RF nausea and vomiting 10 days Coding Level of Care Code Est Pt Level 4 (93931) Complex EM visit Add On G2211 Diagnoses Loculated pleural effusion J90 Asthma-COPD overlap syndrome J44.9 Severe persistent asthma without complication J45.50 Asthma persistence: persistent Asthma complication type: uncomplicated OTILIO (obstructive sleep apnea) G47.33 Pulmonary nodule R91.1 Gastroesophageal reflux disease without esophagitis K21.9 Esophagitis presence: without esophagitis Atelectasis of left lung J98.11 Chest pain on breathing R07.1 Chest pain type: chest pain on breathing Time Spent (min) 18
--- OUTSIDE RECORDS SUMMARY | 2024-08-31 11:55 | XMS_ITS | Data Portability ---
Author Organization saambaa [facility], [place] in - [facility] Address [address] [place] [id number] Care Team Providers Care Script Worker Name Role Phone HIM CCA Referring Provider Assessment Encounter Date Assessment Date Assessment LastModified by Organization Details LastModified Time 08/21/2023 08/21/2023 I provided real -time medical direction via phone for this encounter, and was available for additional phone based assistance as needed. I have reviewed and agree with the Assessment and Plan as documented by the Battery Installer. We discussed the diagnostic uncertainty of home visits and the risk associated with this. In this case the patient and I felt this to be an acceptable and reasonable amount of risk given the benefit of avoiding an ED visit. Via medical interpreter, the patient given the opportunity to ask questions. Advised to follow-up with PCP tomorrow if develops CP/severe SOB/turning blue/uncontrolle d n/v/d or black/bloody emesis or stool/ AMS/ syncope/ hi fever unresponsive to APAP to call 911- verbalized understanding of instruction [email or web address] Not available 08/21/2023 11:52:46 Plan of Treatment Reminders Order Date Submit Date Provider Last Modified By Organization Details Last Modified Time Details Appointments None recorded. Lab BMP, serum or plasma 2023 024 [email or web address] 0 [facility], [address] [place] [address], [id number] 4 11:57:22 rapid SARS CoV 2 Ag, QL IA, respiratory specimen 2023 024 [email or web address], [phone] 4 11:57:26 rapid flu (A+B) 2023 024 [email or web address], [phone] 4 11:57:27 Referral None recorded. Procedures None recorded. Surgeries None recorded. Imaging None recorded. Medication Orders ondansetron 4 mg disintegrat ing tablet 2023 [facility], [address] [place] [address], [id number], 4 14:03:53 ipratropium 0.5 mg-albutero l 3 mg (2.5 mg base)/3 mL nebulizatio n soln 2023 024 [email or web address] 0 Not available 11:57:22 prednisone 20 mg tablet 2023 024 [email or web address] 0 Not available 4 11:57:22 prednisone 20 mg tablet 2023 [facility], [address] [place] [address], [id number], 4 12:59:13 Tylenol Arthritis Pain 650 mg tablet,exte nded release 2023 [facility], [address] [place] [address], [id number], 4 14:44:00 benzonatate 200 mg capsule 2023 [facility], [address] [place] [address], [id number], 4 11:39:43 Patient TargetsNo targets recorded. Patient InstructionsNo instructions recorded. Reason for Referral None Reported. Results Created Date Observation Date Name Description Value Unit Range Abnormal Flag Note LastModifiedBy Organization Detail LastModifiedTime 08/21/19 24 08/21/2023 BMP, serum or plasm a BUN 18 Not Available [facility] - [facility] [address], [phone] 08/21/2023 11:23:37 08/21/19 24 08/21/2023 BMP, serum or plasm a Ca Ionize d calciu m 1.21 Not Available [facility] - [facility] [address] [place] [address], [address] [place] [address] 08/21/2023 11:23:37 08/21/19 24 08/21/2023 BMP, serum or plasm a CI- 107 Not Available [facility] - Ins [address], [address] [place] [address] 08/21/2023 11:23:37 08/21/19 24 08/21/2023 BMP, serum or plasm a CRE 0.54 Not Available [facility] - [facility] [address], [address] [place] [address] 08/21/2023 11:23:37 08/21/19 24 08/21/2023 BMP, serum or plasm a GLU 89 Not Available [facility] - Ins [address], [address] [place] [address] 08/21/2023 11:23:37 08/21/19 24 08/21/2023 BMP, serum or plasm a K+ 3.9 Not Available [facility] - [facility] [address], [address] [place] [address] 08/21/2023 11:23:37 08/21/19 24 08/21/2023 BMP, serum or plasm a Na+ 143 Not Available Main - [facility] [address], [address] [place] [address] 08/21/2023 11:23:37 08/21/19 24 08/21/2023 BMP, serum or plasm a tCO2 26.4 Not Available [facility] - [address], [address] [place] [address] 08/21/2023 11:23:37 08/21/19 24 08/21/2023 rapid SARS CoV 2 Ag, QL IA, respi rator y speci men rapid SARS CoV 2 Ag, QL IA, respiratory specimen negati ve Not Available [facility] - [facility] [address] [place] [address], [address] [place] [address] 08/21/2023 11:23:43 08/21/19 24 08/21/2023 rapid flu (A+B) Flu negati ve Not Available [facility] - [facility] [address] [place] [address], [address] [place] [address] 08/21/2023 11:23:44 Result Notes None recorded. 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 Patient [...] Briceño Member ID Guarantor Name 08/21/2023 1 [facility] - DOS ON OR AFTER 2022 - DUAL ELIGIBLE - CORRECTION OPTIONS AND ONE CARE (MEDICARE REPLACEMENT/ADV ANTAGE - HMO) Margarita Ordonez [id number] Margarita Ordonez Notes Date Note Type Note Provider Name and Address Organization Details Recorded Time 08/21/2023 text/html HPI: Call to Margarita Zamora reports continues to have cough, SOB and wheezing. Pt seen at [facility] on 08/12 and dx with Flu A. [...] .................. .................. .................. .................. .................. .................. .... Battery Installer Note From Kun Cruz: Pt co cough [...] negative. Lungs rhonchi with slight wheezing. Afebrile. [facility] contacted and duo neb, 40mg prednisone given, RX for prednisone, benzonatate,zofran and Tylenol called in. Pt advised to follow up with pcp tomorrow. Pt advised to increase neb treatments from 3 xper day to 4 x? s per day. Pt advised to discontinue use of naprasin( SEGMD: Naprosyn) while ill due to increased BP. Pt education on signs indicating the ER. Battery Installer Allergies: Morphine .................. .................. .................. .................. .................. .................. .................. ............... Disposition: Fulfilled Genevieve Stover MD [address] [facility],[address], [place], [phone], [facility] 08/21/2023 12:03:44 OBGyn Episode No OBEpisode recorded.
--- OUTSIDE RECORDS SUMMARY | 2024-08-31 11:55 | XMS_ITS | Encounter Summary ---
Author Organization [facility] Address [address] [place] [address] Care Team Providers Care Filler Blender Name Role Phone Edward Rebolledo MD Primary Care Provider [phone] Reason for Referral * Home Health (Routine) - Closed Specialty Diagnoses / Procedures Referred By Yong galaviz Referred To Contact Home Health Services Diagnoses Empyema (CMS/HCC V24, CMS/HCC V28) Darlene Collazo MD [address] [place] [phone] Phone: tel: fax: [facility] - [address] [place] [address] Phone: tel: fax: Referral ID Status Reason Start Date Expiration Date V isits Requested Visits Authorized [id number] Closed Consult and Treat 08/27/2024 08/27/2025 1 1 Reason for Visit * Reason Comments Shortness of Breath SOB since August 06 but today went to pulmonary Dr and was sent here for ' liquid in my lungs, pain in my chest and SOB' Chest Pain * Auth/Cert (Routine) Specialty Diagnoses / Procedures Referred By Yong galaviz Referred To Contact Diagnoses Loculated pleural effusion Respiratory failure, unspecified chronicity, unspecified whether with hypoxia or hypercapnia (CMS/HCC V24, CMS/HCC V28) Procedures [facility] IP/OBS CARE INITIAL MODERATE LEVEL PER DAY Mariano Coffey MD [address] [place] [address] Phone: tel: fax: [facility] [address] [place] [address] Phone: tel: Referral ID Status Reason Start Date Expiration Date Visits Re quested Visits Authorized [id number] 1 1 Encounter Details Date Type Department Care Team (Late st Contact Info) Description 08/20/2024 11:50 AM EDT - 08/27/2024 1:30 PM EDT Hospital Encounter [facility] [address] [place] [phone] Yessy Cosme DO [address] [place], [place] [id number] Mariano Coffey MD [address] [place] [phone] Blayne Cooper MD [address] [place] [address] Darlene Collazo MD [address] [place] [address] Loculated pleural effusion (Primary Dx); Respiratory failure, unspecified chronicity, unspecified whether with hypoxia or hypercapnia (CMS/HCC V24, CMS/HCC V28); Empyema (CMS/HCC V24, CMS/HCC V28) Discharge Disposition: Home-Health Care Svc Social History Tobacco Use Types Packs/Day Years Used Date Smoking Tobacco: Never Smokeless Tobacco: Never Alcohol Use Standard Drinks/Week Comments No 0 (1 standard drink = 0.6 oz pur e alcohol) Interpersonal Safety Answer Date Record ed Physical Abuse 08/21/2024 Verbal Abuse 08/21/2024 Comments Unknown Sex and Gender Information Value Date Recorded Sex Assigned at Female 08/20/2024 12:39 PM EDT Legal Sex Female 8:16 PM EST Gender Identity Female 08/20/2024 12:39 PM EDT Sexual Orientation Straight 08/20/2024 12 :39 PM EDT documented as of this encounter Last Filed Vital Signs Vital Sign Reading Time Taken Comments Blood Pressure 143/80 08/27/2024 7:29 AM EDT Pulse 69 08/27/2024 7:29 AM EDT Temperature 36.5 ??C (97.7 ??F) 08/27/2024 7:29 AM ED T Respiratory Rate 16 08/27/2024 7:29 AM EDT Oxygen Saturation 97% 08/27/2024 7:29 AM EDT Inhaled Oxygen Concentration - - Weight 88.5 kg (195 lb) 08/20/2024 11:43 AM EDT Height 160 cm (5' 3 ) 08/20/2024 11:43 AM EDT Body Mass Index 34.54 08/20/2024 11:43 AM EDT documented in this encounter Discharge Summaries * Darlene Collazo MD - 08/27/2024 10:53 AM EDT Images from the original note were not included. [facility]ANSING DISCHARGE SUMMARY Patient Information Evelyn Zamora : 1950 [74 y.o.] Admitting Provider Mariano Coffey MD Discharge Provider Darlene Collazo MD, Darlene Collazo MD Primary Care Physician EDWARD REBOLLEDO MD Admission Date 08/20/2024 Discharge Date 08/27/2024 Summary of Hospital Problems Primary Discharge Diagnosis: Loculated pleural effusion, empyema S/p chest tube placement, removal, decortication Acute hypoxic respiratory failure secondary to above FADIA Secondary Discharge Diagnosis: COPD Diabetes mellitus type 2 Hypertension IBS Hyperlipidemia Discharge Destination: Home with services Code Status at Discharge: Full Code - Confirmed Inpatient Consultants: Dr. Gomez from thoracic surgery Dr. Tapia from pulmonary Hospital Course Summary 74-year-old belarusian speaking female with PMH Hypertension, IBS, COPD/asthma, noninsulin dependent diabetes mellitus seen today with associate account director and family for complaint of chest pain and shortness ofbreath. Acute hypoxic respiratory failure secondary to loculated pleural effusion/ empyema Status post left chest tube placement on 08/20/[address] Chill Patient being followed by cardiothoracic and was taken for da Rod left total decortication along with pleural biopsy and bronchoscopy with aspiration, intercostal paravertebral nerve blocks. Chest tube was removed, post chest tube removal x-rays without any evidence of pneumothorax, stableappearance. Followed by thoracic surgery, appreciate input. Patient has been on IV Zosyn during the hospital course. pleural fluid cultures so far growing gram-positive cocci in pairs and clusters. Called microbiology, had shown few GPC in pairs and clusters however very nonviable for further growth and no further growth noted on final cultures. Discussed with thoracic, also seen by pulmonary, overall clinically improving at this time, chest tube removed and repeat chest x-ray stable appearance, given the culture findings, at this time recommend to complete course of antibiotics with Augmentin for 2 weeks from discharge. Pleuritic chest pain much improved. Tylenol as needed for pain FADIA in the setting of sepsis likely prerenal started on IV fluids renal functions improved. Hold NSAIDs COPD continue with her nebulizers and inhalers. Stable at this time. Continue inhalers at home as before. Type 2 diabetes continue metformin at home Hypertension on antihypertensive medications which have been started Blood pressure stable resumed back on medications. IBS on Linzess nonformulary held while inpatient. Continue with imipramine Hyperlipidemia on statin Patient seen by PT, at this time recommending home PT services. Follow-up with PCP as outpatient in a week Follow-up with thoracic surgery as scheduled next Follow-up with pulmonary outpatient in 1 to 2 weeks Follow-Up Instructions and Recommendations [facility] [place] [address] [facility] , [address] [facility] [address] Discharge Procedure Orders Ambulatory referral to Home Health Standing Status: Future Referral Priority: Routine Referral Type: Home Health Referral Reason: Consult and Treat Referral Location: [facility] [address] [place] Requested Specialty: Home Health Services Number of Visits Requested: 1 Discharge Medications Your medication list START taking these medications Instructions Last Dose Given Next Dose Due acetaminophen 500 mg tablet Commonly known as: TYLENOL Take 2 tablets (1,000 mg total) by mouth every 8 (eight) hours if needed for mild pain for up to 10days. lidocaine 4 % patch Start taking on: August 28, 2024 Apply 1 patch topically 1 (one) time each day for 10 days. polyethylene glycol 17 gram packet Commonly known as: MIRALAX Take 17 g by mouth 1 (one) time each day if needed for constipation for up to 10 days. CHANGE how you take these medications Instructions Last Dose Given Next Dose Due amoxicillin-clavulanate 875-125 mg per tablet Commonly known as: AUGMENTIN What changed: when to take this Take 1 tablet by mouth 2 (two) times a day for 14 days. CONTINUE taking these medications Instructions Last Dose Given Next Dose Due albuterol 2.5 mg /3 mL (0.083 %) nebulizer solution Take 3 mL (2.5 mg total) by nebulization every 4 (four) hours if needed for wheezing or shortness of breath. ProAir RespiClick 90 mcg/actuation aerosol powdr breath activated Generic drug: albuterol sulfate Inhale 2 puffs by mouth. Inhale 2 puffs by mouth every 4-6 hours as needed for shortness of breath or wheezing aspirin 81 mg chewable tablet Chew 1 tablet (81 mg total) daily. atorvastatin 10 mg tablet Commonly known as: LIPITOR Take 1 tablet (10 mg total) by mouth 1 (one) time each day. budesonide-formoteroL 160-4.5 mcg/actuation inhaler Commonly known as: SYMBICORT Inhale 2 puffs by mouth every 12 hours. carbidopa-levodopa 25-100 mg per tablet Commonly known as: SINEMET Take 1 tablet by mouth 2 times daily. cetirizine 10 mg tablet Commonly known as: ZyrTEC Take 1 tablet (10 mg total) by mouth 1 (one) time each day. dilTIAZem CD 300 mg 24 hr capsule Commonly known as: CARDIZEM CD Take 1 capsule (300 mg total) by mouth daily. Dupixent Pen 300 mg/2 mL pen Generic drug: dupilumab Inject 2 mL (300 mg total) under the skin every 14 days. hydroCHLOROthiazide 12.5 mg tablet Take 1 tablet (12.5 mg total) by mouth daily. ibuprofen 800 mg tablet Commonly known as: ADVIL,MOTRIN Take 1 tablet (800 mg total) by mouth every 6 hours as needed. imipramine 50 mg tablet Commonly known as: TOFRANIL Take 0.5 tablets (25 mg total) by mouth 2 (two) times a day. Linzess 290 mcg capsule Generic drug: linaCLOtide Take 1 capsule (290 mcg total) by mouth 1 (one) time each day before breakfast. lisinopril 40 mg tablet Commonly known as: PRINIVIL,ZESTRIL Take 1 tablet (40 mg total) by mouth 1 (one) time each day. magnesium oxide 400 mg (241.3 elemental magnesium) tablet Commonly known as: MAG-OX Take 1 tablet (400 mg total) by mouth at bedtime. metFORMIN 500 mg tablet Commonly known as: GLUCOPHAGE Take 1 tablet (500 mg total) by mouth 1 (one) time each day with breakfast. omeprazole [address] capsule Commonly known as: PriLOSEC Take 1 capsule (20 mg total) by mouth 1 (one) time each day. roflumilast 500 mcg tablet Commonly known as: DALIRESP Take 1 tablet (500 mcg total) by mouth 1 (one) time each day. Where to Get Your Medications These medications were sent to [facility]/pharmacy #[id number] [address] acetaminophen 500 mg tablet amoxicillin-clavulanate 875-125 mg per tablet lidocaine 4 % patch polyethylene glycol 17 gram packet Physical Exam at time of Discharge Physical Exam Elderly female not in any acute distress. HEENT PERRLA, EOMI Neck supple Chest left chest tube incision site appears clean dry and intact. Slightly diminished breath soundson the left side. Heart S1-S2 regular Abdomen soft nontender bowel sounds present Extremities no edema pulses present bilaterally Vitals Visit Vitals BP (!) 143/80 (BP Location: Right arm, Patient Position: Lying) Pulse 69 Temp 36.5 ??C (97.7 ??F) (Oral) Resp 16 Temp (24hrs), Av.6 ??C (97.8 ??F), Min:36.4 ??C (97.6 ??F), Max:36.6 ??C (97.9 ??F) Body mass index is 34.54 kg/m??. No results found for: PTWT , PTHT Results from last 7 days Lab Units 08/27/24 0743 08/24/24 0742 08/24/24 0651 08/23/24 0758 08/23/24 0555 08/22/24 0726 08/22/24 0653 SODIUM mmol/L -- -- 141 -- 141 -- 139 POTASSIUM mmol/L -- -- 3.9 -- 3.9 -- 4.7 CHLORIDE mmol/L -- -- 112* -- 110 -- 107 CO2 mmol/L -- -- 25 -- 26 -- 30 BUN mg/dL -- -- 21 -- 25 -- 13 CREATININE mg/dL -- -- 0.86 -- 1.27* -- 0.74 POCT GLUCOSE mg/dL 108* < > -- < > -- < > -- GLUCOSE mg/dL -- -- 116* -- 144* -- 154* CALCIUM mg/dL -- -- 8.8 -- 8.8 -- 9.1 < > = values in this interval not displayed. Results from last 7 days Lab Units 08/27/24 0627 08/24/24 0651 08/23/24 0555 WBC AUTO K/mcL 10.1 10.9* 10.9* 18.4* HEMOGLOBIN g/dL 12.4 11.1* 11.1* 11.5 HEMATOCRIT % 37.3 34.0* 34.0* 35.8 PLATELETS K/mcL 305 268 268 297 XR Chest 1 View Final Result No significant interval change. -------- FINAL REPORT -------- Dictated By: Jossue Benitez Dictated Date: 08/27/2024 09:03 ET Assigned Physician: Jossue Benitez Reviewed and Electronically Signed By: Jossue Benitez Signed Date: 08/27/2024 09:05 ET Workstation ID: [id number] Transcribed By: Self Edit Transcribed Date: 08/27/2024 09:03 ET XR Chest 2 Views Final Result FINDINGS/IMPRESSION: Small left pleural effusion with adjacent opacity, similar compared to prior. No pneumothorax. Air in the left lateral chest wall and left supraclavicular region, unchanged. Right lung is relatively clear. Cardiac silhouette and bones are stable compared to prior. -------- FINAL REPORT -------- Dictated By: BRIAN CULP Dictated Date: 08/26/2024 10:16 ET Assigned Physician: BRIAN CULP Reviewed and Electronically Signed By: BRIAN CULP Signed Date: 08/26/2024 10:21 ET Workstation ID: [id number] Transcribed By: Self Edit Transcribed Date: 08/26/2024 10:16 ET XR Chest 1 View Final Result FINDINGS/IMPRESSION: Left basilar opacity is unchanged, likely small pleural effusion and adjacent atelectasis. Right lung is clear. No pneumothorax. Cardiac silhouette and bones are unchanged. Air in the left chest wall and left supraclavicular region is stable to slightly decreased compared to prior. -------- FINAL REPORT -------- Dictated By: BRIAN CULP Dictated Date: 08/26/2024 08:21 ET Assigned Physician: BRIAN CULP Reviewed and Electronically Signed By: BRIAN CULP Signed Date: 08/26/2024 08:22 ET Workstation ID: [id number] Transcribed By: Self Edit Transcribed Date: 08/26/2024 08:21 ET XR Chest 1 View Final Result Interval removal of left-sided chest tube with tiny apical pneumothorax and interval increase in left chest wall subcutaneous emphysema. -------- FINAL REPORT -------- Dictated By: Palomo Mckee Dictated Date: 08/25/2024 09:07 ET Assigned Physician: Palomo Mckee Reviewed and Electronically Signed By: Palomo Mckee Signed Date: 08/25/2024 09:09 ET Workstation ID: [id number] Transcribed By: Self Edit Transcribed Date: 08/25/2024 09:07 ET XR Chest 1 View Final Result Impression: Postop changes in the left hemithorax with chest tube in place. No pneumothorax is seen. No significant change. Telerad PA ([id number]) -------- FINAL REPORT -------- Dictated By: Caren Gillespie Dictated Date: 08/24/2024 08:21 ET Assigned Physician: Caren Gillespie Reviewed and Electronically Signed By: Caren Gillespie Signed Date: 08/24/2024 08:23 ET Workstation ID: [id number] Transcribed By: Self Edit Transcribed Date: 08/24/2024 08:21 ET XR Chest 1 View Final Result Impression: 1. Left chest tube well-positioned. 2. No significant change in small left apical pneumothorax. 3. Stable left retrocardiac opacity, possibly residual pleural-parenchymal process versus postop change. Telerad PA ([id number]) -------- FINAL REPORT -------- Dictated By: Caren Gillespie Dictated Date: 08/23/2024 09:01 ET Assigned Physician: Caren Gillespie Reviewed and Electronically Signed By: Caren Gillespie Signed Date: 08/23/2024 09:03 ET Workstation ID: [id number] Transcribed By: Self Edit Transcribed Date: 08/23/2024 09:01 ET XR Chest 1 View Final Result A small right pleural effusion has decreased in size. Otherwise no significant interval change. -------- FINAL REPORT -------- Dictated By: Jossue Benitez Dictated Date: 08/22/2024 09:11 ET Assigned Physician: Jossue Benitez Reviewed and Electronically Signed By: Jossue Benitez Signed Date: 08/22/2024 09:21 ET Workstation ID: [id number] Transcribed By: Self Edit Transcribed Date: 08/22/2024 09:11 ET XR Chest 1 View Final Result 1. New left chest tube with removal of a left pigtail pleural drainage catheter. Suggestion of a small left apical pneumothorax. 2. Interval increased pleural prominence in the lower hemithoraces, suggesting small pleural effusions. Lobulated contour on the right suggesting loculation. -------- FINAL REPORT -------- Dictated By: Jossue Benitez Dictated Date: 08/21/2024 13:21 ET Assigned Physician: Jossue Benitez Reviewed and Electronically Signed By: Jossue Benitez Signed Date: 08/21/2024 13:32 ET Workstation ID: [id number] Transcribed By: Self Edit Transcribed Date: 08/21/2024 13:24 ET XR Chest 1 View Final Result Mild pulmonary vascular congestion. A trace left apical pneumothorax is no longer seen. Unchanged opacity at the left base. -------- FINAL REPORT -------- Dictated By: Jossue Benitez Dictated Date: 08/21/2024 08:55 ET Assigned Physician: Jossue Benitez Reviewed and Electronically Signed By: Jossue Benitez Signed Date: 08/21/2024 08:56 ET Workstation ID: [id number] Transcribed By: Self Edit Transcribed Date: 08/21/2024 08:55 ET XR Chest 1 View Final Result New left basilar pigtail pleural drainage catheter. Unchanged opacity at the left base, which couldrepresent a combination of a pleural effusion and adjacent atelectasis and/or pneumonia. There is suggestion of a trace left apical pneumothorax. -------- FINAL REPORT -------- Dictated By: Jossue Benitez Dictated Date: 08/21/2024 08:53 ET Assigned Physician: Jossue Benitez Reviewed and Electronically Signed By: Jossue Benitez Signed Date: 08/21/2024 08:55 ET Workstation ID: [id number] Transcribed By: Self Edit Transcribed Date: 08/21/2024 08:53 ET IR Pleural Drain Insert Cath w Image Guidance Left Final Result CT-guided placement of left pleural drainage catheter -------- FINAL REPORT -------- Dictated By: Jose Cruz Ramirez Dictated Date: 08/20/2024 18:00 ET Assigned Physician: Jose Cruz Ramirez Reviewed and Electronically Signed By: Jose Cruz Ramirez Signed Date: 08/20/2024 18:03 ET Workstation ID: [id number] Transcribed By: Self Edit Transcribed Date: 08/20/2024 18:[address] Chest w Contrast Final Result Small loculated left pleural effusion with associated atelectasis at the left lung base. Fluid within the esophagus places the patient at risk for aspiration. -------- FINAL REPORT -------- Dictated By: Zulay Reed Dictated Date: 08/20/2024 14:35 ET Assigned Physician: Zulay Reed Reviewed and Electronically Signed By: Zulay Reed Signed Date: 08/20/2024 14:50 ET Workstation ID: [id number] Transcribed By: Self Edit Transcribed Date: 08/20/2024 14:35 ET XR Chest 1 View Final Result FINDINGS/IMPRESSION: Left basilar consolidation and probable small effusion. Right lung is clear. No congestive heart failure. -------- FINAL REPORT -------- Dictated By: Zulay Reed Dictated Date: 08/20/2024 13:07 ET Assigned Physician: Zulay Reed Reviewed and Electronically Signed By: Zulay Reed Signed Date: 08/20/2024 13:08 ET Workstation ID: [id number] Transcribed By: Self Edit Transcribed Date: 08/20/2024 13:07 ET XR Chest 1 View (Results Pending) Recent Results (from the past week) Blood culture Collection Time: 08/20/24 1:53 PM Specimen: Blood, Venous Result Value Ref Range Culture, Blood No growth at 5 days Blood culture Collection Time: 08/20/24 1:53 PM Specimen: Blood, Venous Result Value Ref Range Culture, Blood No growth at 5 days MRSA molecular study Collection Time: 08/20/24 3:24 PM Specimen: Nares; Swab Result Value Ref Range MRSA Screen PCR Not Detected Not Detected Culture body fluid with gram stain Collection Time: 08/20/24 6:03 PM Specimen: Pleural Cavity, Left; Pleural Fluid Result Value Ref Range Fluid Culture No growth at 3 days Gram Stain Result Many Polymorphonuclear leukocytes (A) Gram Stain Result No Epithelial cells (A) Gram Stain Result Few Gram positive cocci in pairs and clusters (A) MRSA molecular study Collection Time: 08/21/24 9:30 AM Specimen: Nares; Swab Result Value Ref Range MRSA Screen PCR Not Detected Not Detected Culture fungal, other Collection Time: 08/21/24 11:21 AM Specimen: Pleural Cavity, Left; Tissue Result Value Ref Range Culture, Fungus Negative for Fungus after 4 Weeks Culture tissue with gram stain Collection Time: 08/21/24 11:21 AM Specimen: Pleural Cavity, Left; Tissue Result Value Ref Range Culture, Tissue No growth aerobically and anaerobically at 5 days. Gram Stain Result Few Polymorphonuclear leukocytes Gram Stain Result No organisms seen Gram Stain Result No epithelial cells seen Culture, afb and smear with reflex to identification and susceptibility Collection Time: 08/21/24 2:34 PM Specimen: Pleural Cavity, Left; Tissue Result Value Ref Range AFB Specimen Processing Concentration Acid Fast Smear Negative Acid fast bacilli stain Collection Time: 08/21/24 2:34 PM Specimen: Pleural Cavity, Left; Tissue Result Value Ref Range AFB Stain Result No Acid Fast Bacilli seen on direct smear No Acid fast bacilli seen on direct smear (Fuchsin method, 1000x) Total time spent 45 minutes doing chart review, seeing patient performing physical exam, formulating plan, coordinating with RN, ICC for discharge, and documentation * Darlene Collazo MD - 08/27/2024 10:51 AM EDT Low salt diet * Darlene Collazo MD - 08/27/2024 10:50 AM EDT As tolerated documented in this encounter Discharge Instructions * Discharge Instructions* Darlene Collazo MD - 08/27/2024 10:51 AM EDT continue to do breathing exercises, incentive spirometry Take antibiotics as prescribed for 2 more weeks. Follow-up with your pulmonary Dr. Bonner as outpatient and also with thoracic surgery as outpatient as scheduled next. documented in this encounter Medications at Time of Discharge acetaminophen (TYLENOL) 500 mg tablet Take 2 tablets (1,000 mg total) by mouth every 8 (eight) hours if needed for mild pain for up to 10 days. 30 tablet 08/27/2024 5 aspirin 81 mg chewable tablet Chew 1 tablet (81 mg total) daily. 07/12/2024 6 budesonide-formo teroL (SYMBICORT) 160-4.5 mcg/actuation inhaler Inhale 2 puffs by mouth every 12 hours. 08/04/2018 carbidopa-levodo pa (SINEMET) 25-100 mg per tablet Take 1 tablet by mouth 2 times daily. 06/11/2024 dilTIAZem CD (CARDIZEM CD) 300 mg 24 hr capsule Take 1 capsule (300 mg total) by mouth daily. 05/01/2024 Dupixent Pen 300 mg/2 mL pen Inject 2 mL (300 mg total) under the skin every 14 days. 08/09/2024 hydroCHLOROthiaz angel 12.5 mg tablet Take 1 tablet (12.5 mg total) by mouth daily. 07/19/2024 6 ibuprofen (ADVIL,MOTRIN) 800 mg tablet Take 1 tablet (800 mg total) by mouth every 6 hours as needed. 07/12/2024 5 lidocaine 4 % patch Apply 1 patch topically 1 (one) time each day for 10 days. 10 each 08/28/2024 5 lisinopril (PRINIVIL,ZESTRI L) 40 mg tablet Take 1 tablet (40 mg total) by mouth 1 (one) time each day. 07/12/2024 magnesium oxide (MAG-OX) 400 mg (241.3 elemental magnesium) tablet Take 1 tablet (400 mg total) by mouth at bedtime. 06/11/2024 metFORMIN (GLUCOPHAGE) 500 mg tablet Take 1 tablet (500 mg total) by mouth 1 (one) time each day with breakfast. 06/01/2016 omeprazole (PriLOSEC) [address] capsule Take 1 capsule (20 mg total) by mouth 1 (one) time each day. 06/22/2024 polyethylene glycol (MIRALAX) 17 gram packet Take 17 g by mouth 1 (one) time each day if needed for constipation for up to 10 days. 170 g 08/27/2024 5 ProAir RespiClick 90 mcg/actuation aerosol powdr breath activated Inhale 2 puffs by mouth. Inhale 2 puffs by mouth every 4-6 hours as needed for shortness of breath or wheezing 08/06/2024 albuterol 2.5 mg /3 mL (0.083 %) nebulizer solution Take 3 mL (2.5 mg total) by nebulization every 4 (four) hours if needed for wheezing or shortness of breath. amoxicillin-clav ulanate (AUGMENTIN) 875-125 mg per tablet Take 1 tablet by mouth 2 (two) times a day for 14 days. 28 each 08/27/2024 atorvastatin (LIPITOR) 10 mg tablet Take 1 tablet (10 mg total) by mouth 1 (one) time each day. cetirizine (ZyrTEC) 10 mg tablet Take 1 tablet (10 mg total) by mouth 1 (one) time each day. imipramine (TOFRANIL) 50 mg tablet Take 0.5 tablets (25 mg total) by mouth 2 (two) times a day. Linzess 290 mcg capsule Take 1 capsule (290 mcg total) by mouth 1 (one) time each day before breakfast. roflumilast (DALIRESP) 500 mcg tablet Take 1 tablet (500 mcg total) by mouth 1 (one) time each day. documented as of this encounter Ordered Prescriptions Prescription Sig Dispense Quantity Refills Last Filled Start Date End Date amoxicillin-clavu lanate (AUGMENTIN) 875-125 mg per tablet Take 1 tablet by mouth 2 (two) times a day for 14 days. 28 each 08/27/2024 5 polyethylene glycol (MIRALAX) 17 gram packet Take 17 g by mouth 1 (one) time each day if needed for constipation for up to 10 days. 170 g 08/27/2024 5 lidocaine 4 % patch Apply 1 patch topically 1 (one) time each day for 10 days. 10 each 08/28/2024 5 acetaminophen (TYLENOL) 500 mg tablet Take 2 tablets (1,000 mg total) by mouth every 8 (eight) hours if needed for mild pain for up to 10 days. 30 tablet 08/27/2024 5 documented in this encounter Discharge Disposition Disposition Code Departure Means Destination Home-Health Care Svc documented in this encounter Progress Notes * Ruby Hightower RN - 08/27/2024 12:26 PM EDT Discharge reviewed with revenue cycle manager. Ivs removed. Pt to follow up with pcp, pulmonology and thoracic. Wheelchair to be ordered. to transport home. 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 Yes Transportation Transportation at discharge Family What day is the transport expected? 08/27/24 Final Discharge Disposition Home or Self Care Dino with [facility] * Dennise Mendoza RN - 08/27/2024 6:56 AM EDT Goals: Identify possible barriers to meeting goals/advancing plan of care: Stability of the patient: Moderately Stable - Low risk of patient condition declining or worsening End of Shift Summary: VSS. Care ongoing * Elle Pena, PT - 08/26/2024 1:50 PM EDT [facility] Physical Therapy Treatment PT Discharge Recommendations: Home PT Equipment Recommended: defer to SNF Staff Recommendations for safe patient handlin person SBA with wwalker Precautions Medical Precautions: Fall Risk Safety Interventions: Call ferguson within reach, ID band on, Bed alarm RUE Weight Bearing Status: Full LUE Weight Bearing Status: Full RLE Weight Bearing Status: Full LLE Weight Bearing Status: Full History of Present Illness: Patient is a 74 y.o. female admitted to [facility] on 08/20/2024 with: Patient Active Problem List Diagnosis Loculated pleural effusion Fall prevention education provided including use of call light in hospital, use of appropriate assistive device, safe mobility techniques, and safety measures at home. Continue PT as per POC. Subjective OK I was just ellennicol to my dtr Objective 08/26/24 1230 PT Last Visit PT Received On 08/26/24 PT Time Calculation PT Start Time 1215 PT Stop Time 1300 PT Time Calculation (min) 45 min Precautions Medical Precautions Fall Risk Safety Interventions Call ferguson within reach;ID band on;Bed alarm RUE Weight Bearing Status Full LUE Weight Bearing Status Full RLE Weight Bearing Status Full LLE Weight Bearing Status Full Vital Signs Patient Identification Yes Oxygen Therapy Oxygen Therapy None (Room air) Pain Assessment Pain Assessment No/denies pain Pain Score 0 - No pain Cognition Overall Cognitive Status WFL Arousal/Alertness Appropriate responses to stimuli Orientation Level Oriented X4 Following Commands Follows all commands and directions without difficulty Safety Judgment Good awareness of safety precautions Awareness of Errors Good awareness of errors made Activity Tolerance Endurance Tolerates 30 min exercise with multiple rests Static Sitting Balance Static Sitting-Level of Assistance Supervision Static Standing Balance Static Standing-Level of Assistance Standby assistance Bed Mobility Rolling Right Assistance Standby assistance Rolling Left Assistance Standby assistance Sitting to Lying Assistance Standby assistance Transfers Sit to Stand Assistance Standby assistance Transfer Comments transfered BTB after as RN was going to do a dressing change Ambulation Device Rolling walker Pattern WFL Distance Ambulated (ft) 120 Comments c/o pain in L flank from CT area Stairs Stairs Assistance Close supervision Stair Management Technique/Device Two rails;Step to pattern Number of Stairs 20 Stairs Comments did well , and went slow goes up reciprically and down 1 at a time Procedures Procedures Therapeutic Activity;Gait Training Gait Training Gait Training Time Entry 30 Therapeutic Activity Therapeutic Activity Time Entry 15 PT Assessment PT Assessment Results Decreased strength;Decreased endurance;Impaired balance;Impaired gait Prognosis Good Evaluation/Treatment Tolerance Patient tolerated treatment well Medical Staff Made Aware Yes Plan Treatment/Interventions ADL retraining;LE strengthening/ROM;Bed mobility;Gait training PT Plan Skilled PT PT Frequency 2-5 days per week PT Duration of Sessions 15-30 min per session PT Treatments per day 1 time per day PT Discharge Recommendations Home PT Procedure/Treatment: Procedures Procedures: Therapeutic Activity, Gait Training Gait Training Gait Training Time Entry: 30 Therapeutic Activity Therapeutic Activity Time Entry: 15 Patient left lying supine in bed. RN notified of pt. status, location, response to treatment, and therapy recommendations. Physical Therapy Assessment/Plan PT Assessment PT Assessment Results: Decreased strength, Decreased endurance, Impaired balance, Impaired gait Prognosis: Good Evaluation/Treatment Tolerance: Patient tolerated treatment well Medical Staff Made Aware: Yes Plan Treatment/Interventions: ADL retraining, LE strengthening/ROM, Bed mobility, Gait training PT Plan: Skilled PT PT Frequency: 2-5 days per week PT Duration of Sessions: 15-30 min per session PT Treatments per day: 1 time per day PT Discharge Recommendations: Home PT Equipment Recommended: defer to SNF PT - Evaluation Status: Complete Physical Therapy Goals/Education Encounter Problems Encounter Problems (Active) Template: Physical Therapy Problem: PT Short Term Goals Dates: Start: 08/23/24 Goal: PT STG 1 the pt will ambulate 30' with walker and supervision Dates: Start: 08/23/24 Expected End: 08/30/24 Goal: PT STG 2 the pt will go up and down 20 steps with right railing and supervision Dates: Start: 08/23/24 Expected End: 08/30/24 Encounter Problems (Resolved) There are no resolved problems. Education Documentation Home Exercise Program, taught by Elle Pena PT at 08/26/2024 1:50 PM. Learner: Patient Readiness: Eager Method: Explanation, Demonstration Response: Verbalizes Understanding, Demonstrated Understanding Comment: stair training Mobility Training, taught by Elle Pena PT at 08/26/2024 1:50 PM. Learner: Patient Readiness: Eager Method: Explanation, Demonstration Response: Verbalizes Understanding, Demonstrated Understanding Comment: stair training Education Comments No comments found. Elle Pena PT * Darlene Collazo MD - 08/26/2024 12:46 PM EDT Images from the original note were not included. CHUNG PROGRESS NOTE Date: 08/26/2024 Author: Darlene Collazo MD Patient ID: Eevlyn Zamora is a 74 y.o. female : 1950 MR#: [id number] 08/20/2024 SUBJECTIVE Patient seen and examined Patient complaining of some pain where the chest tube was. Chest tube has been removed. Complains of chest pain mostly left lower quadrant rib area and also the central with exertion, moving and deep breaths. Scheduled Medications PRN Medications IV Medications acetaminophen, 1,000 mg, q8h aluminum-magnesium hydroxide-simethicone, 10 mL, Before meals & nightly aspirin, 81 mg, Daily atorvastatin, 10 mg, Daily calcium carbonate, 1,000 mg, Once dilTIAZem CD, 300 mg, Daily docusate sodium, 100 mg, BID heparin (porcine), 5,000 Units, q12h URIAH hydroCHLOROthiazide, 12.5 mg, Daily imipramine, 25 mg, BID insulin lispro, 1-6 Units, TID AC ipratropium-albuteroL, 3 mL, 4x daily lidocaine, 1 patch, Daily lisinopril, 40 mg, Daily loratadine, 10 mg, Daily magnesium oxide, 400 mg, Nightly pantoprazole, 40 mg, q AM AC piperacillin-tazobactam, 4.5 g, q8h polyetheylene glycol, 17 g, Nightly roflumilast, 500 mcg, Daily senna, 2 tablet, Nightly sodium chloride, 10 mL, BID albuterol, 2.5 mg, q4h PRN dextrose 50%, 12.5 g, q15 min PRN dextrose 50%, 25 g, q15 min PRN dextrose, 15 g, q15 min PRN dextrose, 30 g, q15 min PRN magnesium hydroxide, 30 mL, Daily PRN melatonin, 6 mg, Nightly PRN naloxone, 0.04 mg, PRN ondansetron, 4 mg, q6h PRN [Held by provider] oxyCODONE, 2.5 mg, q4h PRN simethicone, 160 mg, 4x daily PRN sodium chloride, 10 mL, PRN traMADoL, 25 mg, q8h PRN OBJECTIVE Vitals: 08/25/24 1300 08/25/24 1945 08/26/24 0410 08/26/24 0756 BP: 121/71 116/67 (!) 153/82 (!) 153/79 BP Location: Right arm Right arm Left arm Patient Position: Sitting Lying Pulse: 81 79 65 64 Resp: 16 Temp: 36.3 ??C (97.4 ??F) 36.4 ??C (97.6 ??F) 36.4 ??C (97.5 ??F) 36.3 ??C (97.4 ??F) TempSrc: Temporal Oral Temporal SpO2: 93% 100% 100% 94% Weight: Height: No intake or output data in the 24 hours ending 08/26/24 1246 Wt Readings from Last 1 Encounters: 08/20/24 1143 88.5 kg (195 lb) PHYSICAL EXAM: Gen: Alert oriented 3, NAD CV -RRR no MGR Lungs -left sided chest incision clean dry and intact. Abd - Soft, non-tender, non-distended Extremities - No LE edema Neuro - AO x3 RESULTS: CBC BMP Results from last 7 days Lab Units 08/24/24 0651 08/23/24 0555 08/22/24 0653 08/21/24 0554 WBC AUTO K/mcL 10.9* 10.9* 18.4* 20.2* 9.7 HEMOGLOBIN g/dL 11.1* 11.1* 11.5 11.8 13.2 HEMATOCRIT % 34.0* 34.0* 35.8 37.7 40.7 PLATELETS K/mcL 268 268 297 317 314 LYMPHS PCT AUTO % 10.4 3.5 3.7 4.7 MONO PCT AUTO % 8.0 5.9 4.3 0.9 EOS PCT AUTO % 0.6 0.0 0.0 0.9 Results from last 7 days Lab Units 08/24/24 0651 08/23/24 0555 08/22/24 0653 08/21/24 0554 08/20/24 1211 SODIUM mmol/L 141 141 139 136 137 POTASSIUM mmol/L 3.9 3.9 4.7 4.4 4.1 CHLORIDE mmol/L 112* 110 107 106 105 CO2 mmol/L 25 26 30 25 26 ANION GAP 4 5 2* 5 6 BUN mg/dL 21 25 13 14 12 CREATININE mg/dL 0.86 1.27* 0.74 0.72 0.61 CALCIUM mg/dL 8.8 8.8 9.1 9.4 10.1 MAGNESIUM mg/dL 2.1 -- 2.1 2.0 1.8* Results from last 7 days Lab Units 08/26/24 1105 08/26/24 0757 08/25/24 2039 08/25/24 1628 08/25/24 1128 POCT GLUCOSE mg/dL 110* 100 148* 263* 122* Results from last 7 days Lab Units 08/24/24 0651 08/20/24 1211 AST unit/L 18 21 ALT unit/L 56 20 Recent Results (from the past week) Blood culture Collection Time: 08/20/24 1:53 PM Specimen: Blood, Venous Result Value Ref Range Culture, Blood No growth at 5 days Blood culture Collection Time: 08/20/24 1:53 PM Specimen: Blood, Venous Result Value Ref Range Culture, Blood No growth at 5 days MRSA molecular study Collection Time: 08/20/24 3:24 PM Specimen: Nares; Swab Result Value Ref Range MRSA Screen PCR Not Detected Not Detected Culture body fluid with gram stain Collection Time: 08/20/24 6:03 PM Specimen: Pleural Cavity, Left; Pleural Fluid Result Value Ref Range Fluid Culture No growth at 3 days Gram Stain Result Many Polymorphonuclear leukocytes (A) Gram Stain Result No Epithelial cells (A) Gram Stain Result Few Gram positive cocci in pairs and clusters (A) MRSA molecular study Collection Time: 08/21/24 9:30 AM Specimen: Nares; Swab Result Value Ref Range MRSA Screen PCR Not Detected Not Detected Culture fungal, other Collection Time: 08/21/24 11:21 AM Specimen: Pleural Cavity, Left; Tissue Result Value Ref Range Culture, Fungus Negative for Fungus after 4 Weeks Culture tissue with gram stain Collection Time: 08/21/24 11:21 AM Specimen: Pleural Cavity, Left; Tissue Result Value Ref Range Culture, Tissue No growth aerobically and anaerobically at 5 days. Gram Stain Result Few Polymorphonuclear leukocytes Gram Stain Result No organisms seen Gram Stain Result No epithelial cells seen Culture, afb and smear with reflex to identification and susceptibility Collection Time: 08/21/24 2:34 PM Specimen: Pleural Cavity, Left; Tissue Result Value Ref Range AFB Specimen Processing Concentration Acid Fast Smear Negative Acid fast bacilli stain Collection Time: 08/21/24 2:34 PM Specimen: Pleural Cavity, Left; Tissue Result Value Ref Range AFB Stain Result No Acid Fast Bacilli seen on direct smear No Acid fast bacilli seen on direct smear (Fuchsin method, 1000x) Imaging: XR Chest 2 Views Narrative: XR CHEST 2 VIEWS INDICATION: Shortness of breath TECHNIQUE: XR CHEST 2 VIEWS COMPARISON: 08/26/2024 Impression: FINDINGS/IMPRESSION: Small left pleural effusion with adjacent opacity, similar compared to prior. No pneumothorax. Air in the left lateral chest wall and left supraclavicular region, unchanged. Right lung is relatively clear. Cardiac silhouette and bones are stable compared to prior. -------- FINAL REPORT -------- Dictated By: BRIAN CULP Dictated Date: 08/26/2024 10:16 ET Assigned Physician: BRIAN CULP Reviewed and Electronically Signed By: BRIAN CULP Signed Date: 08/26/2024 10:21 ET Workstation ID: [id number] Transcribed By: Self Edit Transcribed Date: 08/26/2024 10:16 ET XR Chest 1 View Narrative: XR CHEST 1 VIEW INDICATION: Decortication TECHNIQUE: XR CHEST 1 VIEW COMPARISON: 08/25/2024 Impression: FINDINGS/IMPRESSION: Left basilar opacity is unchanged, likely small pleural effusion and adjacent atelectasis. Right lung is clear. No pneumothorax. Cardiac silhouette and bones are unchanged. Air in the left chest wall and left supraclavicular region is stable to slightly decreased compared to prior. -------- FINAL REPORT -------- Dictated By: BRIAN CULP Dictated Date: 08/26/2024 08:21 ET Assigned Physician: BRIAN CULP Reviewed and Electronically Signed By: BRIAN CULP Signed Date: 08/26/2024 08:22 ET Workstation ID: [id number] Transcribed By: Self Edit Transcribed Date: 08/26/2024 08:21 ET ASSESSMENT & PLAN 74-year-old belarusian speaking female with PMH Hypertension, IBS, COPD/asthma, noninsulin dependent diabetes mellitus seen today with associate account director and family for complaint of chest pain and shortness ofbreath. Acute hypoxic respiratory failure secondary to loculated pleural effusion/ empyema Status post left chest tube placement on 08/20/[address] Ramirez Patient being followed by cardiothoracic and was taken for da Rod left total decortication along with pleural biopsy and bronchoscopy with aspiration, intercostal paravertebral nerve blocks. Chest tube was removed yesterday. Followed by thoracic surgery, appreciate input. Recommended to continue antibiotics at this time. Awaiting pleural fluid cultures so far growing gram-positive cocci in pairs and clusters. Continue with current IV antibiotics Zosyn for now. Pain management has some pleuritic pain and pain at the chest tube insertion site. Continue oxycodone as needed. Reviewed culture results, called micro, had shown few GPC in pairs and clusters however nonviable for further growth and no further growth noted on the final culture results. Discussed with Dr. Tapia will review and see, regarding help with antibiotics duration and follow-up. Pleuritic chest pain likely from the loculated effusion, postprocedure. Continue to monitor. Encourage incentive spirometry. Repeat chest x-ray done showed small left pleural effusion with adjacent opacities similar comparedto prior. No pneumothorax noted. FADIA in the setting of sepsis likely prerenal started on IV fluids renal functions improved. Hold NSAIDs COPD continue with her nebulizers and inhalers. Was on prednisone, will DC Type 2 diabetes not taking metformin continue on low-dose dose sliding scale Hypertension on antihypertensive medications which have been started Patient was found to be hypotensive hence hydrochlorothiazide and lisinopril held for now. IBS on Linzess nonformulary held while inpatient. Continue with imipramine Hyperlipidemia on statin Fisher was discontinued on 08/22/2024. Patient urinating PT evaluationPatient encouraged to ambulate DVT Prophylaxis Lovenox Full Code - Confirmed Disposition awaiting pleural fluid cultures at this time to decide on antibiotic course and duration. * Dennise Mendoza RN - 08/26/2024 6:00 AM EDT Goals: Identify possible barriers to meeting goals/advancing plan of care: Stability of the patient: Moderately Stable - Low risk of patient condition declining or worsening End of Shift Summary: Patient is alert and oriented. Pain is being managed with meds. Care ongoing * Yanni Umana RN - 08/25/2024 6:49 PM EDT Goals: Identify possible barriers to meeting goals/advancing plan of care: Stability of the patient: Moderately Stable - Low risk of patient condition declining or worsening End of Shift Summary: Pt A&O, JONATHAN, itzel from [facility], [facility] with dressing c/d/minimal staining, family at bedside, PRN pain management, bed alarm on and call ferguson within reach. * Aye Jurado RN - 08/25/2024 3:05 PM EDT MATEO: [place] from [facility] Barrier: chest tube removed today, MD clearance Plan: PT recommending STR. Previous ICC met with pt who refuses rehab but agreeable to home services. [facility] accepting. * Trisha Treadwell, PT - 08/25/2024 3:00 PM EDT [facility] Physical Therapy Treatment PT Discharge Recommendations: Home PT Equipment Recommended: defer to SNF Staff Recommendations for safe patient handling: supervision with walker Precautions Medical Precautions: Fall Risk Safety Interventions: Call ferguson within reach, ID band on, Bed alarm RUE Weight Bearing Status: Full LUE Weight Bearing Status: Full RLE Weight Bearing Status: Full LLE Weight Bearing Status: Full History of Present Illness: Patient is a 74 y.o. female admitted to [facility] on 08/20/2024 with: Patient Active Problem List Diagnosis Loculated pleural effusion Modified [place] Scale: Fall prevention education provided including use of call light in hospital, use of appropriate assistive device, safe mobility techniques, and safety measures at home. Continue PT as per POC. Subjective I still have pain in my side Objective 08/25/24 1500 PT Last Visit PT Received On 08/25/24 General Family/Caregiver Present Yes PT Time Calculation PT Start Time 1500 PT Stop Time 1530 PT Time Calculation (min) 30 min Precautions Medical Precautions Fall Risk Safety Interventions Call ferguson within reach;ID band on;Bed alarm RUE Weight Bearing Status Full LUE Weight Bearing Status Full RLE Weight Bearing Status Full LLE Weight Bearing Status Full Vital Signs Patient Identification Yes Pain Assessment Pain Assessment 0-10 Pain Score 5 - Moderate pain Pain Type Acute pain Pain Location (the pt reports pain lateral Left trunk in the area where the chest tube used to be) Cognition Orientation Level Oriented X4 Activity Tolerance Endurance (improved endurane today with ability to amb 75 with mod SOB) Static Standing Balance Static Standing-Level of Assistance Supervision Static Standing-Balance Support Right upper extremity supported;Left upper extremity supported Dynamic Standing Balance Dynamic Standing-Level of Assistance Supervision Dynamic Standing-Balance Ambulation Dynamic Standing-Balance Support Right upper extremity supported;Left upper extremity supported Bed Mobility Rolling Left Assistance Supervision Sitting to Lying Assistance Supervision Lying to Sitting Assistance Supervision Transfers Sit to Stand Assistance Supervision Chair/Bed to Chair/Bed Transfer Assistance Supervision Ambulation Walking Assistance Supervision Device Rolling walker Pattern (slow santi) Distance Ambulated (ft) 75 (the pt was able to ambulate 75' x 2 with walker and S) Stairs Stairs Assistance Close supervision Stair Management Technique/Device Two rails Number of Stairs 8 Stairs Comments seated rest break needed after stair management Procedures Procedures Gait Training Gait Training Gait Training Time Entry 30 Gait Training Activity 1 The pt appears to be feeling better. She was able to complete bed mobilityand transfers independently. She was able to ambulate 75' x 2 with walker and S. She demonstrated mod SOB following ambulation and needed an extended seated rest break. She was then able to go up anddown 4 steps x 2 with B railings and close S and needed a seated rest break following stair management PT Assessment PT Assessment Results Decreased strength;Decreased endurance Prognosis Good Evaluation/Treatment Tolerance Patient limited by fatigue Medical Staff Made Aware Yes Plan Treatment/Interventions Functional transfer training;LE strengthening/ROM;Endurance training;Bed mobility;Gait training PT Plan Skilled PT PT Frequency 2-5 days per week PT Discharge Recommendations Home PT PT - Evaluation Status Complete Procedure/Treatment: Procedures Procedures: Gait Training Gait Training Gait Training Time Entry: 30 Gait Training Activity 1: The pt appears to be feeling better. She was able to complete bed mobility and transfers independently. She was able to ambulate 75' x 2 with walker and S. She demonstrated mod SOB following ambulation and needed an extended seated rest break. She was then able to go up and down 4 steps x 2 with B railings and close S and needed a seated rest break following stair management Patient left lying supine in bed. RN notified of pt. status, location, response to treatment, and therapy recommendations. Physical Therapy Assessment/Plan PT Assessment PT Assessment Results: Decreased strength, Decreased endurance Prognosis: Good Evaluation/Treatment Tolerance: Patient limited by fatigue Medical Staff Made Aware: Yes Plan Treatment/Interventions: Functional transfer training, LE strengthening/ROM, Endurance training, Bed mobility, Gait training PT Plan: Skilled PT PT Frequency: 2-5 days per week PT Discharge Recommendations: Home PT Equipment Recommended: defer to SNF PT - Evaluation Status: Complete Physical Therapy Goals/Education Encounter Problems Encounter Problems (Active) Template: Physical Therapy Problem: PT Short Term Goals Dates: Start: 08/23/24 Goal: PT STG 1 the pt will ambulate 30' with walker and supervision Dates: Start: 08/23/24 Expected End: 08/30/24 Goal: PT STG 2 the pt will go up and down 20 steps with right railing and supervision Dates: Start: 08/23/24 Expected End: 08/30/24 Encounter Problems (Resolved) There are no resolved problems. Education Documentation Home Exercise Program, taught by Trisha Treadwell PT at 08/25/2024 4:46 PM. Learner: Family, Patient Readiness: Eager Method: Explanation, Demonstration Response: Verbalizes Understanding, Demonstrated Understanding Comment: educated on breathing technique and pacing with good understanding Mobility Training, taught by Trisha Treadwell PT at 08/25/2024 4:46 PM. Learner: Family, Patient Readiness: Eager Method: Explanation, Demonstration Response: Verbalizes Understanding, Demonstrated Understanding Comment: educated on breathing technique and pacing with good understanding Education Comments No comments found. Trisha Treadwell PT * Darlene Collazo MD - 08/25/2024 2:47 PM EDT Images from the original note were not included. CHUNG PROGRESS NOTE Date: 08/25/2024 Author: Darlene Collazo MD Patient ID: Evelyn Zamora is a 74 y.o. female : 1950 MR#: [id number] 08/20/2024 SUBJECTIVE Patient seen and examined Patient complaining of some pain where the chest tube was. Chest tube removed yesterday. Overall slowly improving and feeling slowly better. Scheduled Medications PRN Medications IV Medications acetaminophen, 1,000 mg, q8h aluminum-magnesium hydroxide-simethicone, 10 mL, Before meals & nightly aspirin, 81 mg, Daily atorvastatin, 10 mg, Daily calcium carbonate, 1,000 mg, Once dilTIAZem CD, 300 mg, Daily docusate sodium, 100 mg, BID heparin (porcine), 5,000 Units, q12h URIAH hydroCHLOROthiazide, 12.5 mg, Daily imipramine, 25 mg, BID insulin lispro, 1-6 Units, TID AC ipratropium-albuteroL, 3 mL, 4x daily lidocaine, 1 patch, Daily lisinopril, 40 mg, Daily loratadine, 10 mg, Daily magnesium oxide, 400 mg, Nightly pantoprazole, 40 mg, q AM AC piperacillin-tazobactam, 4.5 g, q8h polyetheylene glycol, 17 g, Nightly predniSONE, 40 mg, Daily roflumilast, 500 mcg, Daily senna, 2 tablet, Nightly sodium chloride, 10 mL, BID albuterol, 2.5 mg, q4h PRN dextrose 50%, 12.5 g, q15 min PRN dextrose 50%, 25 g, q15 min PRN dextrose, 15 g, q15 min PRN dextrose, 30 g, q15 min PRN magnesium hydroxide, 30 mL, Daily PRN naloxone, 0.04 mg, PRN ondansetron, 4 mg, q6h PRN oxyCODONE, 2.5 mg, q4h PRN simethicone, 160 mg, 4x daily PRN sodium chloride, 10 mL, PRN traMADoL, 25 mg, q8h PRN OBJECTIVE Vitals: 08/25/24 0330 08/25/24 0720 08/25/24 0750 08/25/24 1300 BP: 124/66 (!) 146/72 121/71 BP Location: Right arm Right arm Patient Position: Lying Sitting Pulse: 58 69 81 Resp: 16 14 15 Temp: 36.1 ??C (97 ??F) 36.4 ??C (97.5 ??F) 36.3 ??C (97.4 ??F) TempSrc: Temporal Temporal SpO2: 96% 96% 96% 93% Weight: Height: Intake/Output Summary (Last 24 hours) at 08/25/2024 1447 Last data filed at 08/25/2024 0900 Gross per 24 hour Intake 480 ml Output -- Net 480 ml Wt Readings from Last 1 Encounters: 08/20/24 1143 88.5 kg (195 lb) PHYSICAL EXAM: Gen: Alert oriented 3, NAD CV -RRR no MGR Lungs -left sided chest incision clean dry and intact. Left side chest tube present. Diffuse rhonchi present. Abd - Soft, non-tender, non-distended Extremities - No LE edema Neuro - AO x3 RESULTS: CBC BMP Results from last 7 days Lab Units 08/24/24 0651 08/23/24 0555 08/22/24 0653 08/21/24 0554 WBC AUTO K/mcL 10.9* 10.9* 18.4* 20.2* 9.7 HEMOGLOBIN g/dL 11.1* 11.1* 11.5 11.8 13.2 HEMATOCRIT % 34.0* 34.0* 35.8 37.7 40.7 PLATELETS K/mcL 268 268 297 317 314 LYMPHS PCT AUTO % 10.4 3.5 3.7 4.7 MONO PCT AUTO % 8.0 5.9 4.3 0.9 EOS PCT AUTO % 0.6 0.0 0.0 0.9 Results from last 7 days Lab Units 08/24/24 0651 08/23/24 0555 08/22/24 0653 08/21/24 0554 08/20/24 1211 SODIUM mmol/L 141 141 139 136 137 POTASSIUM mmol/L 3.9 3.9 4.7 4.4 4.1 CHLORIDE mmol/L 112* 110 107 106 105 CO2 mmol/L 25 26 30 25 26 ANION GAP 4 5 2* 5 6 BUN mg/dL 21 25 13 14 12 CREATININE mg/dL 0.86 1.27* 0.74 0.72 0.61 CALCIUM mg/dL 8.8 8.8 9.1 9.4 10.1 MAGNESIUM mg/dL 2.1 -- 2.1 2.0 1.8* Results from last 7 days Lab Units 08/25/24 1128 08/25/24 0750 08/24/24 2149 08/24/24 1512 08/24/24 1200 POCT GLUCOSE mg/dL 122* 111* 168* 183* 138* Results from last 7 days Lab Units 08/24/24 0651 08/20/24 1211 AST unit/L 18 21 ALT unit/L 56 20 Recent Results (from the past week) Blood culture Collection Time: 08/20/24 1:53 PM Specimen: Blood, Venous Result Value Ref Range Culture, Blood No growth at 2 days Blood culture Collection Time: 08/20/24 1:53 PM Specimen: Blood, Venous Result Value Ref Range Culture, Blood No growth at 2 days MRSA molecular study Collection Time: 08/20/24 3:24 PM Specimen: Nares; Swab Result Value Ref Range MRSA Screen PCR Not Detected Not Detected Culture body fluid with gram stain Collection Time: 08/20/24 6:03 PM Specimen: Pleural Cavity, Left; Pleural Fluid Result Value Ref Range Fluid Culture No growth at 3 days Gram Stain Result Many Polymorphonuclear leukocytes (A) Gram Stain Result No Epithelial cells (A) Gram Stain Result Few Gram positive cocci in pairs and clusters (A) MRSA molecular study Collection Time: 08/21/24 9:30 AM Specimen: Nares; Swab Result Value Ref Range MRSA Screen PCR Not Detected Not Detected Culture fungal, other Collection Time: 08/21/24 11:21 AM Specimen: Pleural Cavity, Left; Tissue Result Value Ref Range Culture, Fungus Culture in progress Culture tissue with gram stain Collection Time: 08/21/24 11:21 AM Specimen: Pleural Cavity, Left; Tissue Result Value Ref Range Culture, Tissue No growth to date Gram Stain Result Few Polymorphonuclear leukocytes Gram Stain Result No organisms seen Gram Stain Result No epithelial cells seen Culture, afb and smear with reflex to identification and susceptibility Collection Time: 08/21/24 2:34 PM Specimen: Pleural Cavity, Left; Tissue Result Value Ref Range AFB Specimen Processing Concentration Acid Fast Smear Negative Acid fast bacilli stain Collection Time: 08/21/24 2:34 PM Specimen: Pleural Cavity, Left; Tissue Result Value Ref Range AFB Stain Result No Acid Fast Bacilli seen on direct smear No Acid fast bacilli seen on direct smear (Fuchsin method, 1000x) Imaging: XR Chest 1 View Narrative: INDICATION: Status post decortication with removal of left-sided chest tube FINDINGS: Single portable AP view of the chest obtained. Compared to multiple prior studies most recent from August 24, 2024 at 4:08 AM. Removal left-sided chest tube with tiny apical pneumothorax suspected. Interval increase in left-sided subcutaneous emphysema in the region of the left lower neck and upper chest wall. No midline shift. No infiltrates or effusions. Heart enlarged but unchanged. Bony structures are grossly intact and normal for the patient's age. Impression: Interval removal of left-sided chest tube with tiny apical pneumothorax and interval increase in left chest wall subcutaneous emphysema. -------- FINAL REPORT -------- Dictated By: Palomo Mckee Dictated Date: 08/25/2024 09:07 ET Assigned Physician: Palomo Mckee Reviewed and Electronically Signed By: Palomo Mckee Signed Date: 08/25/2024 09:09 ET Workstation ID: [id number] Transcribed By: Self Edit Transcribed Date: 08/25/2024 09:07 ET ASSESSMENT & PLAN 74-year-old belarusian speaking female with PMH Hypertension, IBS, COPD/asthma, noninsulin dependent diabetes mellitus seen today with associate account director and family for complaint of chest pain and shortness ofbreath. Acute hypoxic respiratory failure secondary to loculated pleural effusion/ empyema Status post left chest tube placement on 08/20/[address] Ramirez Patient being followed by cardiothoracic and was taken for da Rod left total decortication along with pleural biopsy and bronchoscopy with aspiration, intercostal paravertebral nerve blocks. Chest tube was removed yesterday. Followed by thoracic surgery, appreciate input. Recommended to continue antibiotics at this time. Awaiting pleural fluid cultures so far growing gram-positive cocci in pairs and clusters. Continue with current IV antibiotics Zosyn for now. Pain management has some pleuritic pain and pain at the chest tube insertion site. Continue oxycodone as needed. Will consult pulm - help with abx - duration and follow up FADIA in the setting of sepsis likely prerenal started on IV fluids renal functions improved. Hold NSAIDs COPD continue with her nebulizers and inhalers. Was on prednisone, will DC Type 2 diabetes not taking metformin continue on low-dose dose sliding scale Hypertension on antihypertensive medications which have been started Patient was found to be hypotensive hence hydrochlorothiazide and lisinopril held for now. IBS on Linzess nonformulary held while inpatient. Continue with imipramine Hyperlipidemia on statin Fisher was discontinued on 08/22/2024. Patient urinating PT evaluation to be done Patient encouraged to ambulate DVT Prophylaxis Lovenox Full Code - Confirmed Disposition awaiting pleural fluid cultures at this time to decide on antibiotic course and duration. * Red Mojica RN - 08/25/2024 9:59 AM EDT Goals: Identify possible barriers to meeting goals/advancing plan of care: abdominal pain Stability of the patient: Moderately Stable - Low risk of patient condition declining or worsening End of Shift Summary: Problem: Cognitive: Acute Pain Goal: Expressions of feelings of enhanced comfort will increase Outcome: Progressing Problem: Patient Specific Problem: Acute Pain Goal: Patient Specific Outcome Outcome: Progressing Problem: Falls: Fall Risk (Adult [facility]) Goal: (Goal) Patient will experience maximum safety and reduce risk for falls. Outcome: Progressing Goal: Patient will not fall or injure themselves during hospitalization. Outcome: Progressing Problem: Cognitive: Chan Thomas Fall Risk Goal: Last Known Fall Outcome: Progressing Goal: Mobility requiring assistance of person or device Outcome: Progressing Goal: Dizziness Outcome: Progressing Goal: Medications Outcome: Progressing Goal: Mental Status/LOC/Awareness Outcome: Progressing Goal: Toileting Needs Outcome: Progressing Goal: Volume and Electrolyte Status Outcome: Progressing Goal: Communication/Sensory Outcome: Progressing Goal: Behavior Outcome: Progressing * Teri Sicnlair RN - 08/25/2024 3:23 AM EDT Problem: Sensory: Acute Pain Goal: Pain level will improve or be tolerable Outcome: Progressing Goal: Ability to develop a pain control plan will improve Outcome: Progressing Problem: Cognitive: Acute Pain Goal: Expressions of feelings of enhanced comfort will increase Outcome: Progressing Problem: Patient Specific Problem: Acute Pain Goal: Patient Specific Outcome Outcome: Progressing Problem: Falls: Fall Risk (Adult [facility]) Goal: (Goal) Patient will experience maximum safety and reduce risk for falls. Outcome: Progressing Goal: Patient will not fall or injure themselves during hospitalization. Outcome: Progressing Problem: Cognitive: Chan Thomas Fall Risk Goal: Last Known Fall Outcome: Progressing Goal: Mobility requiring assistance of person or device Outcome: Progressing Goal: Dizziness Outcome: Progressing Goal: Medications Outcome: Progressing Goal: Mental Status/LOC/Awareness Outcome: Progressing Goal: Toileting Needs Outcome: Progressing Goal: Volume and Electrolyte Status Outcome: Progressing Goal: Communication/Sensory Outcome: Progressing Goal: Behavior Outcome: Progressing Goals: Identify possible barriers to meeting goals/advancing plan of care: Stability of the patient: Moderately Stable - Low risk of patient condition declining or worsening End of Shift Summary: Patient safety and comfort maintained. Pain medicated with prn meds. Vitals stable. Continue to monitor. * ADRIAN Saldaña - 08/24/2024 3:31 PM EDT Images from the original note were not included. Thoracic Surgery Progress Note Patient Name: Evelyn Zamora : 1950 Date of Visit: 08/24/24 Subjective Patient seen and examined this am. She denies any concerning symptoms such as fevers, chills, shortness of breath at rest and states that her pain has been well-controlled. Allergies Allergen Reactions Morphine Current Facility-Administered Medications Medication Dose Route Frequency Provider Last Rate Last Admin acetaminophen (TYLENOL) tablet 1,000 mg 1,000 mg oral q8h Blayne Cooper MD 1,000 mg at 08/24/24 0916 albuterol 2.5 mg /3 mL (0.083 %) nebulizer solution 2.5 mg 2.5 mg nebulization q4h PRN ADRIAN Lubin aluminum-magnesium hydroxide-simethicone (MAALOX) 200-200-20 mg/5 mL suspension 10 mL 10 mL oral Before meals & nightly Blayne Cooper MD 10 mL at 08/24/24 0913 aspirin chewable tablet 81 mg 81 mg oral Daily Blayne Cooper MD 81 mg at 08/24/24 0918 atorvastatin (LIPITOR) tablet 10 mg 10 mg oral Daily ADRIAN Lubin 10 mg at 08/24/24 0915 calcium carbonate (TUMS) chewable tablet 1,000 mg 1,000 mg oral Once ADRIAN Lubin dextrose (D50W) 50% injection 12.5 g 12.5 g intravenous q15 min PRN ADRIAN Lubin dextrose (D50W) 50% injection 25 g 25 g intravenous q15 min PRN ADRIAN Lubin dextrose 15 gram/60 mL oral solution 15 g 15 g oral q15 min PRN ADRIAN Lubin dextrose 15 gram/60 mL oral solution 30 g 30 g oral q15 min PRN ADRIAN Lubin dilTIAZem CD (CARDIZEM CD) 24 hr capsule 300 mg 300 mg oral Daily ADRIAN Lubin 300 mg at 08/24/24 0915 docusate sodium (COLACE) capsule 100 mg 100 mg oral BID ADRIAN Lubin 100 mg at 08/24/24 0916 heparin (UFH) injection 5,000 Units 5,000 Units subcutaneous q12h URIAH Blayne Cooper MD 5,000 Units at 08/24/24 0917 hydroCHLOROthiazide (MICROZIDE) capsule 12.5 mg 12.5 mg oral Daily Blayne Cooper MD imipramine (TOFRANIL) tablet 25 mg 25 mg oral BID ADRIAN Lubin 25 mg at 08/24/24 0918 insulin lispro injection 1-6 Units 1-6 Units subcutaneous TID AC ADRIAN Lubin 1 Units at 08/23/24 1635 ipratropium-albuteroL (DUONEB) 0.5-2.5 mg/3 mL nebulizer solution 3 mL 3 mL nebulization 4x daily ADRIAN Lubin 3 mL at 08/24/24 1126 lidocaine 4 % patch 1 patch 1 patch Topical Daily ADRIAN Lubin 1 patch at 08/24/24 0918 lisinopriL (PRINIVIL,ZESTRIL) tablet 40 mg 40 mg oral Daily Blayne Cooper MD 40 mg at 08/22/24 0927 loratadine (CLARITIN) tablet 10 mg 10 mg oral Daily ADRIAN Lubin 10 mg at 08/24/24 0915 magnesium hydroxide (MILK OF MAGNESIA) 400 mg/5 mL suspension 30 mL 30 mL oral Daily PRN ADRIAN Lubin magnesium oxide (MAG-OX) tablet 400 mg 400 mg oral Nightly ADRIAN Lubin 400 mg at 08/23/24 2131 naloxone (NARCAN) injection 0.04 mg 0.04 mg intravenous PRN ADRIAN Lubin ondansetron (PF) (ZOFRAN) injection 4 mg 4 mg intravenous q6h PRN ADRIAN Lubin 4 mg at 08/24/24 0941 oxyCODONE (ROXICODONE) immediate release tablet 2.5 mg 2.5 mg oral q4h PRN Blayne Cooper MD pantoprazole (PROTONIX) EC tablet 40 mg 40 mg oral q AM AC ADRIAN Lubin 40 mg at 08/24/24 0621 piperacillin-tazobactam (ZOSYN) 4.5 g in sodium chloride 0.9 % 100 mL IVPB 4.5 g intravenous q8h Blayne Cooper MD 200 mL/hr at 08/24/24 1346 4.5 g at 08/24/24 1346 polyethylene glycol (MIRALAX) packet 17 g 17 g oral Nightly ADRIAN Lubin 17 g at 08/23/24 2132 predniSONE (DELTASONE) tablet 40 mg 40 mg oral Daily Blayne Cooper MD 40 mg at 08/24/24 0918 roflumilast (DALIRESP) tablet 500 mcg 500 mcg oral Daily ADRIAN Lubin 500 mcg at 08/24/24 0915 senna (SENOKOT) tablet 17.2 mg 2 tablet oral Nightly ADRIAN Lubin 17.2 mg at 08/23/24 2131 simethicone (MYLICON) chewable tablet 160 mg 160 mg oral 4x daily PRN ADRIAN Chatterjee 160 mg at 08/21/24 1747 sodium chloride 0.9 % flush 10 mL 10 mL intravenous BID ADRIAN Lubin 10 mL at 08/24/24 0919 And sodium chloride 0.9 % flush 10 mL 10 mL intravenous PRN ADRIAN Lubin traMADoL (ULTRAM) tablet 25 mg 25 mg oral q8h PRN Blayne Cooper MD 25 mg at 08/24/24 1349 Review of Systems Review of Systems Constitutional: Negative for chills and fever. Cardiovascular: Negative for chest pain. Respiratory: Positive for cough. Negative for hemoptysis and shortness of breath. Gastrointestinal: Positive for constipation. Negative for bloating, abdominal pain, nausea and vomiting. Physical Exam Vitals: 08/24/24 0740 08/24/24 0750 08/24/24 1158 08/24/24 1510 BP: (!) 151/85 131/72 (!) 150/84 BP Location: Left arm Left arm Patient Position: Lying Lying Pulse: 79 89 80 Resp: 16 16 16 Temp: 36.4 ??C (97.6 ??F) 36.4 ??C (97.5 ??F) 36.6 ??C (97.9 ??F) TempSrc: Temporal Temporal SpO2: 95% 94% 94% 95% Weight: Height: General: Patient is sitting comfortably in no acute distress, Head: Normocephalic, atraumatic, symmetric Eyes: Sclera anicteric, eyelids without edema or erythema, +EOMS intact ENT: Oral mucosa and tongue are moist without lesions or exudates Neck: Soft, supple, symmetric, trachea midline, no crepitus, no mass visualized or palpated Cardiovascular: Regular rate and rhythm, no murmur/rubs/gallops, BUE and BLE without edema, no calftenderness bilaterally Respiratory: Lungs CTA B, breathing nonlabored, speaking in full sentences, on room air. No use of accessory muscles. No obvious chest wall abnormality or deformity Gastrointestinal: Soft, non-tender, non-distended, +normoactive bowel sounds. Lymphatic: no cervical, supraclavicular, infraclavicular, or other lymphadenopathy noted Neurological: Alert and oriented x 3, neurologic exam is grossly normal Psychiatric: No agitation, appropriate affect Chest Wall: Left sided chest tube remains on waterseal with a 190 cc of serosanguineous fluid output over past 24 hours, no airleak. Left-sided chest wall incisions remain clean dry and intact. Diagnostics Lab Results Component Value Date WBC 10.9 (H) 08/24/2024 WBC 10.9 (H) 08/24/2024 HGB 11.1 (L) 08/24/2024 HGB 11.1 (L) 08/24/2024 HCT 34.0 (L) 08/24/2024 HCT 34.0 (L) 08/24/2024 PLT 268 08/24/2024 PLT 268 08/24/2024 Lab Results Component Value Date NA 141 08/24/2024 K 3.9 08/24/2024 CL 112 (H) 08/24/2024 CO2 25 08/24/2024 ANIONGAP 4 08/24/2024 BUN 21 08/24/2024 CREATININE 0.86 08/24/2024 GLUCOSE 183 (H) 08/24/2024 EGFR 71 08/24/2024 CALCIUM 8.8 08/24/2024 No results found for: PT , INR , APTT Microbiology Recent Results (from the past week) Blood culture Collection Time: 08/20/24 1:53 PM Specimen: Blood, Venous Result Value Ref Range Culture, Blood No growth at 2 days Blood culture Collection Time: 08/20/24 1:53 PM Specimen: Blood, Venous Result Value Ref Range Culture, Blood No growth at 2 days MRSA molecular study Collection Time: 08/20/24 3:24 PM Specimen: Nares; Swab Result Value Ref Range MRSA Screen PCR Not Detected Not Detected Culture body fluid with gram stain Collection Time: 08/20/24 6:03 PM Specimen: Pleural Cavity, Left; Pleural Fluid Result Value Ref Range Fluid Culture No growth at 3 days Gram Stain Result Many Polymorphonuclear leukocytes (A) Gram Stain Result No Epithelial cells (A) Gram Stain Result Few Gram positive cocci in pairs and clusters (A) MRSA molecular study Collection Time: 08/21/24 9:30 AM Specimen: Nares; Swab Result Value Ref Range MRSA Screen PCR Not Detected Not Detected Culture fungal, other Collection Time: 08/21/24 11:21 AM Specimen: Pleural Cavity, Left; Tissue Result Value Ref Range Culture, Fungus Culture in progress Culture tissue with gram stain Collection Time: 08/21/24 11:21 AM Specimen: Pleural Cavity, Left; Tissue Result Value Ref Range Culture, Tissue No growth to date Gram Stain Result Few Polymorphonuclear leukocytes Gram Stain Result No organisms seen Gram Stain Result No epithelial cells seen Culture, afb and smear with reflex to identification and susceptibility Collection Time: 08/21/24 2:34 PM Specimen: Pleural Cavity, Left; Tissue Result Value Ref Range AFB Specimen Processing Concentration Acid Fast Smear Negative Acid fast bacilli stain Collection Time: 08/21/24 2:34 PM Specimen: Pleural Cavity, Left; Tissue Result Value Ref Range AFB Stain Result No Acid Fast Bacilli seen on direct smear No Acid fast bacilli seen on direct smear (Fuchsin method, 1000x) Radiology 08/24/24 XR Chest 1 View Narrative: History: Follow-up status post decortication left hemithorax. Comparison: 08/23/24, 08/20/24, thoracic CT 08/20/24 Findings: Portable AP upright chest at 4:08 AM. A large bore left thoracostomy tube is again seen, terminating near the apex of the hemithorax. No pneumothorax is identified. Mild residual pleural-based opacity is again seen at the base of the left hemithorax, stable from the previous study. Mild subcutaneous emphysema is again seen adjacent to the left lower chest wall. The right lung is grossly clear. The cardiac silhouette remains enlarged. The mediastinal structures are midline. Impression: Impression: Postop changes in the left hemithorax with chest tube in place. No pneumothorax is seen. No significant change. Telemaritza CAMPBELL ([id number]) -------- FINAL REPORT -------- Dictated By: Caren Gillespie Dictated Date: 08/24/2024 08:21 ET Assigned Physician: Caren Gillespie Reviewed and Electronically Signed By: Caren Gillespie Signed Date: 08/24/2024 08:23 ET Workstation ID: [id number] Transcribed By: Self Edit Transcribed Date: 08/24/2024 08:21 ET Assessment and Plan 4 s/p Procedure(s): da rod THORACOSCOPY DECORTICATION Left empyema/pneumonia Left-sided chest tube was transitioned to waterseal last night at midnight. 190 cc of serosanguineous fluid output over past 24 hours with no detectable airleak. Chest x-ray showed no pneumothorax with only minimal left basilar pleural opacity remaining. Left-sided chest tube was removed without incident and a dry occlusive dressing was put in place with instructions not to remove dressing for 48 hours. Leukocytosis expected after decortication and use of steroids, trending down, today 10.9 Preliminary pleural fluid culture showing +few GPC. Pleural rind culture, pleural fluid cytology, and left pleural biopsy pending from OR. Continues on Zosyn Pain management Tylenol ATC Oxycodone PO as needed based on pain scale Lidocaine patch daily, avoid placing over incisions. Pulmonary toilet IS Flutter valve Ambulation Activity Patient should be OOB ambulating in the hallways at least 3-4 times daily. Patient should be OOB to chair for all meals. Patient should be OOB to the chair for the majority of the day as tolerated. Bowel regimen Miralax and Colace daily. Senna and MOM as needed. DVT prophylaxis: Heparin SQ, SCDs GI prophylaxis: Pantoprazole From a thoracic surgical point of view patient is fine for discharge. I have made her a follow-up postop appointment at the thoracic surgical department to [address] [place] [id number]. Phone #[phone] for September 10 at 10 AM with Jose E Garcia PA-C. Patient was instructed to arrive 30 minutes early and present herself to patient registration to have a chest x-ray completed prior to her appointment. ADRIAN Saldaña [facility] Thoracic Surgery [address], [address] [facility] [id number] * Blayne Cooper MD - 08/24/2024 2:[address] [facility] Provider Response Note PATIENT: EVELYN ZAMORA : 1950 ADMIT DATE: 08/20/2024 4:09 PM DISCH DATE: RESPONDING PROVIDER #: [id number] PROVIDER RESPONSE TEXT: The patient has bronchopneumonia ? Staph QUERY TEXT: Pneumonia is documented in the medical record. Please specify the type of pneumonia and the causative organism such as: Progress Notes 08/23/2024 Left empyema/pneumonia o Chest tube to remain -20 suction and will be placed to waterseal @ midnight tonight. o Continue to monitor xrays in the am. o Leukocytosis expected after decortication and use of steroids, trending down, today 18.4 from 20.2 yesterday. o Preliminary pleural fluid culture showing +few GPC. o Pleural rind culture, pleural fluid cytology, and left pleural biopsy pending from OR. o Continues on Zosyn - Pain management o Tylenol ATC o Oxycodone PO as needed based on pain scale o Lidocaine patch daily, avoid placing over incisions. - Pulmonary toilet o IS o Flutter valve o Ambulation CULTURE BODY FLUID WITH GRAM STAIN: 08/20/2024 06:03 PM Fluid Culture No growth at 3 days Gram Stain Result Many Polymorphonuclear leukocytes A Gram Stain Result No Epithelial cells A Gram Stain Result Few Gram positive cocci in pairs and clusters A CT CHEST W CONTRAST 08/20/2024 (1) FINDINGS: LUNGS/PLEURA: Small loculated left pleural effusion with associated atelectasis though underlying pneumonia not excluded. XR CHEST 1 VIEW 08/20/2024 (1) IMPRESSION: Unchanged opacity at the left base, which could represent a combination of a pleural effusion and adjacent atelectasis and/or pneumonia. Antibiotic: Zosyn, Vancomycin Note: CAP (Community-acquired), HAP (Hospital-acquired), and HCAP (Healthcare- associated) indicate where the pneumonia was acquired, not a specific type. Contact: The patient's clinical indicators include: Options provided: -- Aspiration pneumonia, Please specify the aspirate in the box. -- Bacterial, Please specify the organism in the box. -- Bronchopneumonia, Please specify the organism in the box. -- Viral pneumonia -- Other - I will add my own diagnosis -- Disagree - Not applicable / Not valid Query created by: Leatha Arredondo on 08/23/2024 5:25 PM Electronically signed by: BLAYNE COOPER MD 08/24/2024 2:51 PM * Trisha Eben, PT - 08/24/2024 2:45 PM EDT [facility] Physical Therapy Treatment PT Discharge Recommendations: Home PT Equipment Recommended: defer to SNF Staff Recommendations for safe patient handling: supervision with walker Precautions Medical Precautions: (cest tube has been removed) Safety Interventions: Call ferguson within reach, ID band on, Bed alarm RUE Weight Bearing Status: Full LUE Weight Bearing Status: Full RLE Weight Bearing Status: Full LLE Weight Bearing Status: Full History of Present Illness: Patient is a 74 y.o. female admitted to [facility] on 08/20/2024 with: Patient Active Problem List Diagnosis Loculated pleural effusion Modified [place] Scale: Fall prevention education provided including use of call light in hospital, use of appropriate assistive device, safe mobility techniques, and safety measures at home. Continue PT as per POC. Subjective I feel better but I still have pain Objective 08/24/24 1445 PT Last Visit PT Received On 08/24/24 General Family/Caregiver Present Yes PT Time Calculation PT Start Time 1445 PT Stop Time 1515 PT Time Calculation (min) 30 min Precautions Medical Precautions (cest tube has been removed) Safety Interventions Call ferguson within reach;ID band on;Bed alarm RUE Weight Bearing Status Full LUE Weight Bearing Status Full RLE Weight Bearing Status Full LLE Weight Bearing Status Full Vital Signs Patient Identification Yes Pain Assessment Pain Assessment 0-10 Pain Score 5 - Moderate pain Pain Type Acute pain Pain Location (she reports pain in the area of the chest tube) Cognition Overall Cognitive Status WFL Following Commands Follows all commands and directions without difficulty Activity Tolerance Endurance (improved ambulation with decreased shortness of breath today) Static Standing Balance Static Standing-Level of Assistance Supervision Static Standing-Balance Support Right upper extremity supported;Left upper extremity supported Dynamic Standing Balance Dynamic Standing-Level of Assistance Supervision Dynamic Standing-Balance Ambulation Dynamic Standing-Balance Support Right upper extremity supported;Left upper extremity supported Bed Mobility Sitting to Lying Assistance Independent Lying to Sitting Assistance Independent Transfers Sit to Stand Assistance Supervision Chair/Bed to Chair/Bed Transfer Assistance Supervision Ambulation Walking Assistance Supervision Device Rolling walker Distance Ambulated (ft) (15' x1 and 20' x 1) Stairs Stairs Assistance Contact guard Stair Management Technique/Device Two rails;Step to pattern Number of Stairs 4 Procedures Procedures Gait Training Gait Training Gait Training Time Entry 30 Gait Training Activity 1 The pt's chest tube removed earlier today . Pt demonstrates improved endurance with decreased SOB. She was able to complete bed mobility with S and transfers with S. She ambulated 15' x1 and 10' x 1 with walker and S. She then participated in stair management and was able to go up and down 4 steps with B railings and [employer] SOB with stair management. Her was present for training and states he is able to assist her on the stairs as needed PT Assessment PT Assessment Results Decreased strength;Decreased endurance Prognosis Good Evaluation/Treatment Tolerance Patient limited by fatigue Medical Staff Made Aware Yes Plan Treatment/Interventions Functional transfer training;LE strengthening/ROM;Endurance training;Bed mobility;Gait training PT Plan Skilled PT PT Frequency 2-5 days per week PT Discharge Recommendations Home PT PT - Evaluation Status Complete Procedure/Treatment: Procedures Procedures: Gait Training Gait Training Gait Training Time Entry: 30 Gait Training Activity 1: The pt's chest tube removed earlier today . Pt demonstrates improved endurance with decreased SOB. She was able to complete bed mobility with S and transfers with S. She ambulated 15' x1 and 10' x 1 with walker and S. She then participated in stair management and was able to go up and down 4 steps with B railings and [employer] SOB with stair management. Her was present for training and states he is able to assist her on the stairs as needed Patient left sitting up in bed. RN notified of pt. status, location, response to treatment, and therapy recommendations. Physical Therapy Assessment/Plan PT Assessment PT Assessment Results: Decreased strength, Decreased endurance Prognosis: Good Evaluation/Treatment Tolerance: Patient limited by fatigue Medical Staff Made Aware: Yes Plan Treatment/Interventions: Functional transfer training, LE strengthening/ROM, Endurance training, Bed mobility, Gait training PT Plan: Skilled PT PT Frequency: 2-5 days per week PT Discharge Recommendations: Home PT Equipment Recommended: defer to SNF PT - Evaluation Status: Complete Physical Therapy Goals/Education Encounter Problems Encounter Problems (Active) Template: Physical Therapy Problem: PT Short Term Goals Dates: Start: 08/23/24 Goal: PT STG 1 the pt will ambulate 30' with walker and supervision Dates: Start: 08/23/24 Expected End: 08/30/24 Goal: PT STG 2 the pt will go up and down 20 steps with right railing and supervision Dates: Start: 08/23/24 Expected End: 08/30/24 Encounter Problems (Resolved) There are no resolved problems. Education Documentation Home Exercise Program, taught by Trisha Treadwell PT at 08/24/2024 5:07 PM. Learner: Family, Patient Readiness: Eager Method: Explanation, Demonstration Response: Verbalizes Understanding, Demonstrated Understanding Comment: Education on stair management and the pt's is able ot safely assist her as needed Mobility Training, taught by Trisha Treadwell PT at 08/24/2024 5:07 PM. Learner: Family, Patient Readiness: Eager Method: Explanation, Demonstration Response: Verbalizes Understanding, Demonstrated Understanding Comment: Education on stair management and the pt's is able ot safely assist her as needed Education Comments No comments found. Trisha Treadwell PT * Blayne Cooper MD - 08/24/2024 1:59 PM EDT Images from the original note were not included. CHUNG PROGRESS NOTE Date: 08/24/2024 Author: Blayne Cooper MD Patient ID: Evelyn Zamora is a 74 y.o. female : 1950 MR#: [id number] 08/20/2024 SUBJECTIVE Patient seen and examined along with the client services vice president. Still continues to have some pain. Will be seen by thoracic likely to have a chest tube removed today. Scheduled Medications PRN Medications IV Medications acetaminophen, 1,000 mg, q8h aluminum-magnesium hydroxide-simethicone, 10 mL, Before meals & nightly aspirin, 81 mg, Daily atorvastatin, 10 mg, Daily calcium carbonate, 1,000 mg, Once dilTIAZem CD, 300 mg, Daily docusate sodium, 100 mg, BID heparin (porcine), 5,000 Units, q12h URIAH [Held by provider] hydroCHLOROthiazide, 12.5 mg, Daily imipramine, 25 mg, BID insulin lispro, 1-6 Units, TID AC ipratropium-albuteroL, 3 mL, 4x daily lidocaine, 1 patch, Daily [Held by provider] lisinopril, 40 mg, Daily loratadine, 10 mg, Daily magnesium oxide, 400 mg, Nightly pantoprazole, 40 mg, q AM AC piperacillin-tazobactam, 4.5 g, q8h polyetheylene glycol, 17 g, Nightly predniSONE, 40 mg, Daily roflumilast, 500 mcg, Daily senna, 2 tablet, Nightly sodium chloride, 10 mL, BID albuterol, 2.5 mg, q4h PRN dextrose 50%, 12.5 g, q15 min PRN dextrose 50%, 25 g, q15 min PRN dextrose, 15 g, q15 min PRN dextrose, 30 g, q15 min PRN magnesium hydroxide, 30 mL, Daily PRN naloxone, 0.04 mg, PRN ondansetron, 4 mg, q6h PRN oxyCODONE, 2.5 mg, q4h PRN simethicone, 160 mg, 4x daily PRN sodium chloride, 10 mL, PRN traMADoL, 25 mg, q8h PRN sodium chloride, Last Rate: 100 mL/hr (08/23/249) OBJECTIVE Vitals: 08/24/24 0346 08/24/24 0740 08/24/24 0750 08/24/24 1158 BP: (!) 142/87 (!) 151/85 131/72 BP Location: Left arm Left arm Patient Position: Lying Lying Pulse: 77 79 89 Resp: 16 16 16 Temp: 36.2 ??C (97.1 ??F) 36.4 ??C (97.6 ??F) 36.4 ??C (97.5 ??F) TempSrc: Temporal Temporal SpO2: 94% 95% 94% 94% Weight: Height: Intake/Output Summary (Last 24 hours) at 08/24/2024 1359 Last data filed at 08/24/2024 0622 Gross per 24 hour Intake 1126.67 ml Output 700 ml Net 426.67 ml Wt Readings from Last 1 Encounters: 08/20/24 1143 88.5 kg (195 lb) PHYSICAL EXAM: Gen: Alert oriented 3, NAD CV -RRR no MGR Lungs -left sided chest incision clean dry and intact. Left side chest tube present. Diffuse rhonchi present. Abd - Soft, non-tender, non-distended Extremities - No LE edema Neuro - AO x3 RESULTS: CBC BMP Results from last 7 days Lab Units 08/24/24 0651 08/23/24 0555 08/22/24 0653 08/21/24 0554 WBC AUTO K/mcL 10.9* 10.9* 18.4* 20.2* 9.7 HEMOGLOBIN g/dL 11.1* 11.1* 11.5 11.8 13.2 HEMATOCRIT % 34.0* 34.0* 35.8 37.7 40.7 PLATELETS K/mcL 268 268 297 317 314 LYMPHS PCT AUTO % 10.4 3.5 3.7 4.7 MONO PCT AUTO % 8.0 5.9 4.3 0.9 EOS PCT AUTO % 0.6 0.0 0.0 0.9 Results from last 7 days Lab Units 08/24/24 0651 08/23/24 0555 08/22/24 0653 08/21/24 0554 08/20/24 1211 SODIUM mmol/L 141 141 139 136 137 POTASSIUM mmol/L 3.9 3.9 4.7 4.4 4.1 CHLORIDE mmol/L 112* 110 107 106 105 CO2 mmol/L 25 26 30 25 26 ANION GAP 4 5 2* 5 6 BUN mg/dL 21 25 13 14 12 CREATININE mg/dL 0.86 1.27* 0.74 0.72 0.61 CALCIUM mg/dL 8.8 8.8 9.1 9.4 10.1 MAGNESIUM mg/dL 2.1 -- 2.1 2.0 1.8* Results from last 7 days Lab Units 08/24/24 1200 08/24/24 0742 08/24/24 0651 08/23/249 08/23/24 1559 POCT GLUCOSE mg/dL 138* 102* -- 133* 192* GLUCOSE mg/dL -- -- 116* -- -- Results from last 7 days Lab Units 08/24/24 0651 08/20/24 1211 AST unit/L 18 21 ALT unit/L 56 20 Recent Results (from the past week) Blood culture Collection Time: 08/20/24 1:53 PM Specimen: Blood, Venous Result Value Ref Range Culture, Blood No growth at 2 days Blood culture Collection Time: 08/20/24 1:53 PM Specimen: Blood, Venous Result Value Ref Range Culture, Blood No growth at 2 days MRSA molecular study Collection Time: 08/20/24 3:24 PM Specimen: Nares; Swab Result Value Ref Range MRSA Screen PCR Not Detected Not Detected Culture body fluid with gram stain Collection Time: 08/20/24 6:03 PM Specimen: Pleural Cavity, Left; Pleural Fluid Result Value Ref Range Fluid Culture No growth at 3 days Gram Stain Result Many Polymorphonuclear leukocytes (A) Gram Stain Result No Epithelial cells (A) Gram Stain Result Few Gram positive cocci in pairs and clusters (A) MRSA molecular study Collection Time: 08/21/24 9:30 AM Specimen: Nares; Swab Result Value Ref Range MRSA Screen PCR Not Detected Not Detected Culture fungal, other Collection Time: 08/21/24 11:21 AM Specimen: Pleural Cavity, Left; Tissue Result Value Ref Range Culture, Fungus Culture in progress Culture tissue with gram stain Collection Time: 08/21/24 11:21 AM Specimen: Pleural Cavity, Left; Tissue Result Value Ref Range Culture, Tissue No growth to date Gram Stain Result Few Polymorphonuclear leukocytes Gram Stain Result No organisms seen Gram Stain Result No epithelial cells seen Acid fast bacilli stain Collection Time: 08/21/24 2:34 PM Specimen: Pleural Cavity, Left; Tissue Result Value Ref Range AFB Stain Result No Acid Fast Bacilli seen on direct smear No Acid fast bacilli seen on direct smear (Fuchsin method, 1000x) Imaging: XR Chest 1 View Narrative: History: Follow-up status post decortication left hemithorax. Comparison: 08/23/24, 08/20/24, thoracic CT 08/20/24 Findings: Portable AP upright chest at 4:08 AM. A large bore left thoracostomy tube is again seen, terminating near the apex of the hemithorax. No pneumothorax is identified. Mild residual pleural-based opacity is again seen at the base of the left hemithorax, stable from the previous study. Mild subcutaneous emphysema is again seen adjacent to the left lower chest wall. The right lung is grossly clear. The cardiac silhouette remains enlarged. The mediastinal structures are midline. Impression: Impression: Postop changes in the left hemithorax with chest tube in place. No pneumothorax is seen. No significant change. [employer] ADRIAN ([id number]) -------- FINAL REPORT -------- Dictated By: Caren Gillespie Dictated Date: 08/24/2024 08:21 ET Assigned Physician: Caren Gillespie Reviewed and Electronically Signed By: Caren Gillespie Signed Date: 08/24/2024 08:23 ET Workstation ID: [id number] Transcribed By: Self Edit Transcribed Date: 08/24/2024 08:21 ET ASSESSMENT & PLAN 74-year-old belarusian speaking female with PMH Hypertension, IBS, COPD/asthma, noninsulin dependent diabetes mellitus seen today with associate account director and family for complaint of chest pain and shortness ofbreath. Acute hypoxic respiratory failure secondary to loculated pleural effusion empyema Status post left chest tube placement on 08/20/[address] Ramirez Patient being followed by cardiothoracic and was taken for da Rod left total decortication along with pleural biopsy and bronchoscopy with aspiration, intercostal paravertebral nerve blocks. Patient tolerated the procedure well. Patient has 1 chest tube. Follow-up with cardiothoracic recommendations. Per cardiothoracic continue with chest tube management Per thoracic chest tube to be placed to waterseal at midnight tonight. Chest x-ray in the morning. Continue with IV antibiotics. Pain management will discontinue IV buprenorphine and started on IV Toradol. Increased creatinine today hence will discontinue Toradol MRSA swab was negative will discontinue IV vancomycin and continue with IV Zosyn at this time. Per thoracic likely chest tube to be removed today. FADIA in the setting of sepsis likely prerenal started on IV fluids we will continue to monitor. Creatinine normalized. Will discontinue IV fluids. Hold NSAIDs COPD continue with her nebulizers and inhalers Type 2 diabetes not taking metformin continue on low-dose dose sliding scale Hypertension on antihypertensive medications which have been started IBS on Linzess nonformulary held while inpatient. Continue with imipramine Hyperlipidemia on statin Fisher was discontinued on 08/22/2024. Patient urinating PT evaluation done and recommending SNF Patient encouraged to ambulate DVT Prophylaxis Lovenox Full Code - Confirmed Disposition chest tube to be removed today. Patient on IV antibiotics PT recommending SNF, can be discharged after chest tube has been removed. * Sharon Camara RN - 08/23/2024 4:26 PM EDT MATEO: 08/24-08/25 Barrier: chest tube to suction Plan: home self * Trisha Treadwell, PT - 08/23/2024 2:30 PM EDT [facility] Physical Therapy Evaluation & Treatment PT Discharge Recommendations: senior living facility placement Equipment Recommended: defer to SNF Staff Recommendations for safe patient handling: min a with walker Modified Niyah Scale Score: AM-PAC 6 Clicks Scoring Form: Unable: 1 A Lot: 2 A Little: 3 None: 4 How much difficulty does the patient currently have? Turning over in bed (including adjustment of bedclothes, sheets, and blankets) [] [] [x] [] Sitting down on and standing up from a chair with arms (wheelchair, bedside commode etc [] [] [x] [] Moving from lying on back to sitting on the side of the bed [] [] [x] [] How much help from another person does the patient currently need? Moving to and from a bed to a chair ( including a wheelchair) [] [] [x] [] To walk in hospital room [] [] [x] [] Climbing 3-5 steps with a railing [x] [] [] [] Score: score indicates the pt would benefit from STR after acute discharge Precautions Medical Precautions: Fall Risk (L chest tube) Safety Interventions: Call ferguson within reach, ID band on, Bed alarm RUE Weight Bearing Status: Full LUE Weight Bearing Status: Full RLE Weight Bearing Status: Full Fall prevention education provided including use of call light in hospital, use of appropriate assistive device, safe mobility techniques, and safety measures at home. PT Received On: 08/23/24 PT Start Time: 1430 PT Stop Time: 1500 PT Time Calculation (min): 30 min General Family/Caregiver Present: Yes Precautions Medical Precautions: Fall Risk (L chest tube) Safety Interventions: Call ferguson within reach, ID band on, Bed alarm RUE Weight Bearing Status: Full LUE Weight Bearing Status: Full RLE Weight Bearing Status: Full Cognition Overall Cognitive Status: Within Functional Limits Arousal/Alertness: Appropriate responses to stimuli Orientation Level: Disoriented to situation Following Commands: Follows all commands and directions without difficulty Hearing: Intact Vision: Intact Speech: Intact Integumentary: left chest tube History of Present Illness: Patient is a 74 y.o. female admitted to [facility] on 08/20/2024. Patient Active Problem List Diagnosis Loculated pleural effusion History reviewed. No pertinent past medical history. History reviewed. No pertinent surgical history. Social History Home Living Environment: Home Living Type of Home: Apartment Lives With: Spouse Home Adaptive Equipment: Walker - rolling Home Layout: One level Home Access: Stairs to enter with rails Entrance Stairs-Rails: Rail on the right going up Entrance Stairs-Number of Steps: 20 Prior Function Level of [place]: Independent with mobility and functional transfers Ambulation Status: Household ambulator Receives Help From: Family Indoor Mobility Assistance: Independent Stairs Assistance : Independent Which is your dominant hand?: Right General Assessment 08/23/24 1430 PT Last Visit PT Received On 08/23/24 General Family/Caregiver Present Yes PT Time Calculation PT Start Time 1430 PT Stop Time 1500 PT Time Calculation (min) 30 min Precautions Medical Precautions Fall Risk (L chest tube) Safety Interventions Call ferguson within reach;ID band on;Bed alarm RUE Weight Bearing Status Full LUE Weight Bearing Status Full RLE Weight Bearing Status Full Vital Signs Patient Identification Yes Pain Assessment Pain Assessment 0-10 Pain Score 5 - Moderate pain Pain Type Acute pain Pain Location (L lateral trunk in the area of the chest tube) Cognition Overall Cognitive Status WFL Arousal/Alertness Appropriate responses to stimuli Orientation Level Oriented X4 Following Commands Follows all commands and directions without difficulty Home Living Type of Home Apartment Lives With Spouse Home Adaptive Equipment Walker - rolling Home Layout One level Home Access Stairs to enter with rails Entrance Stairs-Rails Rail on the right going up Entrance Stairs-Number of Steps 20 Prior Function Level of [place] Independent with mobility and functional transfers Ambulation Status Household ambulator Receives Help From Family Indoor Mobility Assistance Independent Stairs Assistance Independent Activity Tolerance Endurance Tolerates less than 10 min exercise, no significant change in vital signs Activity Tolerance Comments fatigues quickly with ambulation Static Sitting Balance Static Sitting-Level of Assistance Independent Static Sitting-Balance Support No upper extremity supported;Feet supported Dynamic Sitting Balance Dynamic Sitting-Level of Assistance Independent Dynamic Sitting-Balance Forward lean Dynamic Sitting-Balance Support No upper extremity supported;Feet supported Static Standing Balance Static Standing-Level of Assistance Contact guard Static Standing-Balance Support Right upper extremity supported;Left upper extremity supported Dynamic Standing Balance Dynamic Standing-Level of Assistance Minimum assistance Dynamic Standing-Balance Ambulation Dynamic Standing-Balance Support Right upper extremity supported;Left upper extremity supported Bed Mobility Sitting to Lying Assistance Close supervision Sitting to Lying Deficit Assist to lower upper body onto bed Lying to Sitting Assistance Minimum assistance Lying to Sitting Deficit Assist to push upper body to upright Transfers Sit to Stand Assistance Contact guard Sit to Stand Deficit Assist for lift off;Steadying Chair/Bed to Chair/Bed Transfer Assistance Contact guard Ambulation Walking Assistance Minimum assistance Walking Deficit (slow santi and fatigues very quickly) Device Rolling walker Distance Ambulated (ft) 8 Additional Ambulation Assessments? (the pt needed a seated rest breakafter amb 8' and then was able to amb an additional 4' to the bed) Stairs Reason(s) not performed: (pt too fatigued to attempt stairs) RUE Assessment RUE Assessment Within Functional Limits LUE Assessment LUE Assessment Within Functional Limits RLE Assessment RLE Assessment Within Functional Limits LLE Assessment LLE Assessment Within Functional Limits PT Assessment PT Assessment Results Decreased strength;Decreased endurance;Impaired balance;Impaired gait;Decreased mobility Prognosis Good Evaluation/Treatment Tolerance Patient limited by fatigue Medical Staff Made Aware Yes Plan Treatment/Interventions Functional transfer training;LE strengthening/ROM;Endurance training;Patient/family training;Bed mobility;Gait training;Balance training PT Plan Skilled PT PT Frequency 2-5 days per week PT Discharge Recommendations senior living facility placement Equipment Recommended defer to SNF PT - Evaluation Status Complete PT Evaluation Time Entry PT Evaluation (Moderate) Time Entry 30 Treatment performed during evaluation: None performed ADDITIONAL COMMENTS: Chart reviewed. RN clears pt for session. Pt agrees to participate and presented in supine upon PT arrival. All lines in place. Medical precautions observed appropriately. Initiated education on the importance of PT, bed mobility safety, Transfer Safety, Ambulation Safety , Therapy Plan of Care, Home Safety, Energy Conservations strategies, and importance of OOB activity . Pt verbalized understanding. EXIT STATUS: Session ended with patient supine, tray table and call light within reach, and RN made aware. Physical Therapy Assessment/Plan Evelyn Zamora is a 74 y.o. female admitted to [facility] on 08/20/2024 for Loculated pleural effusion [J90] Respiratory failure, unspecified chronicity, unspecified whether with hypoxia or hypercapnia (CMS/[facility] V24, CMS/[facility] V28) [J96.90] . Pt presents with decreased BLE strength, balance deficits, decreasedactivity tolerance, and far below functional baseline. Pt performed bed mobility Minimal assist, Bedrail, Transfers with Contact guard, FWW and ambulates Minimal assist with FWW 8 ft . Pt will benefit from skilled acute PT during hospital stay to improve the deficits listed above and optimize function. PT recommends senior living facility placement when medically stable for safe discharge and to optimize functional mobility and independence. Goals Encounter Problems Encounter Problems (Active) Template: Physical Therapy Problem: PT Short Term Goals Dates: Start: 08/23/24 Goal: PT STG 1 the pt will ambulate 30' with walker and supervision Dates: Start: 08/23/24 Expected End: 08/30/24 Goal: PT STG 2 the pt will go up and down 20 steps with right railing and supervision Dates: Start: 08/23/24 Expected End: 08/30/24 Encounter Problems (Resolved) There are no resolved problems. Education Documentation Home Exercise Program, taught by Trisha Treadwell PT at 08/23/2024 5:50 PM. Learner: Significant Other, Patient Readiness: Acceptance Method: Explanation Response: Verbalizes Understanding Comment: Discussed discharge plans. The pt's goal is to reurn home but currently her endurance is poor and she is unable to climb stairs. Arnie recommend STR but will continue to work with her while in acute care to meet goal of going home Mobility Training, taught by Trisha Treadwell PT at 08/23/2024 5:50 PM. Learner: Significant Other, Patient Readiness: Acceptance Method: Explanation Response: Verbalizes Understanding Comment: Discussed discharge plans. The pt's goal is to reurn home but currently her endurance is poor and she is unable to climb stairs. Arnie recommend STR but will continue to work with her while in acute care to meet goal of going home Education Comments No comments found. Trisha Treadwell PT * Blayne Cooper MD - 08/23/2024 2:06 PM EDT Images from the original note were not included. CHUNG PROGRESS NOTE Date: 08/23/2024 Author: Blayne Cooper MD Patient ID: Evelyn Zamora is a 74 y.o. female : 1950 MR#: [id number] 08/20/2024 SUBJECTIVE Patient seen and examined along with the client services vice president. Patient continues to complain of painwhere her chest tube is. She complains it at the back and the front of her chest. She was not able to sleep overnight. According to the daughter the patient was hallucinating with oxycodone yesterdayhence asking not to be given that. Patient also complaining of nausea and unable to eat much. Also has not had a bowel movement yet. Scheduled Medications PRN Medications IV Medications acetaminophen, 1,000 mg, q8h aluminum-magnesium hydroxide-simethicone, 10 mL, Before meals & nightly aspirin, 81 mg, Daily atorvastatin, 10 mg, Daily calcium carbonate, 1,000 mg, Once dilTIAZem CD, 300 mg, Daily docusate sodium, 100 mg, BID heparin (porcine), 5,000 Units, q12h URIAH [Held by provider] hydroCHLOROthiazide, 12.5 mg, Daily imipramine, 25 mg, BID insulin lispro, 1-6 Units, TID AC ipratropium-albuteroL, 3 mL, 4x daily lidocaine, 1 patch, Daily [Held by provider] lisinopril, 40 mg, Daily loratadine, 10 mg, Daily magnesium oxide, 400 mg, Nightly pantoprazole, 40 mg, q AM AC piperacillin-tazobactam, 4.5 g, q8h polyetheylene glycol, 17 g, Nightly predniSONE, 40 mg, Daily roflumilast, 500 mcg, Daily senna, 2 tablet, Nightly sodium chloride, 10 mL, BID albuterol, 2.5 mg, q4h PRN dextrose 50%, 12.5 g, q15 min PRN dextrose 50%, 25 g, q15 min PRN dextrose, 15 g, q15 min PRN dextrose, 30 g, q15 min PRN magnesium hydroxide, 30 mL, Daily PRN naloxone, 0.04 mg, PRN ondansetron, 4 mg, q6h PRN oxyCODONE, 2.5 mg, q4h PRN simethicone, 160 mg, 4x daily PRN sodium chloride, 10 mL, PRN traMADoL, 25 mg, q8h PRN sodium chloride, Last Rate: 100 mL/hr (08/22/24 2241) OBJECTIVE Vitals: 08/23/24 0757 08/23/24 0812 08/23/24 1121 08/23/24 1141 BP: 135/71 (!) 142/78 BP Location: Left arm Right arm Patient Position: Sitting Lying Pulse: 72 71 63 72 Resp: 12 19 16 16 Temp: 36.1 ??C (97 ??F) 36.3 ??C (97.3 ??F) TempSrc: Temporal Temporal SpO2: 95% 94% 95% 94% Weight: Height: Intake/Output Summary (Last 24 hours) at 08/23/2024 1406 Last data filed at 08/23/2024 0900 Gross per 24 hour Intake 2300 ml Output 1188 ml Net 1112 ml Wt Readings from Last 1 Encounters: 08/20/24 1143 88.5 kg (195 lb) PHYSICAL EXAM: Gen: Alert oriented 3, NAD CV -RRR no MGR Lungs -left sided chest incision clean dry and intact. Left side chest tube present. Diffuse rhonchi present. Abd - Soft, non-tender, non-distended Extremities - No LE edema Neuro - AO x3 RESULTS: CBC BMP Results from last 7 days Lab Units 08/23/24 0555 08/22/24 0653 08/21/24 0554 08/20/24 1211 WBC AUTO K/mcL 18.4* 20.2* 9.7 13.2* HEMOGLOBIN g/dL 11.5 11.8 13.2 13.7 HEMATOCRIT % 35.8 37.7 40.7 41.9 PLATELETS K/mcL 297 317 314 323 LYMPHS PCT MAN % -- -- -- 6.0 LYMPHS PCT AUTO % 3.5 3.7 4.7 -- MONO PCT MAN % -- -- -- 5.0 MONO PCT AUTO % 5.9 4.3 0.9 -- EOS PCT MAN % -- -- -- 20.0 EOS PCT AUTO % 0.0 0.0 0.9 -- Results from last 7 days Lab Units 08/23/24 0555 08/22/24 0653 08/21/24 0554 08/20/24 1211 SODIUM mmol/L 141 139 136 137 POTASSIUM mmol/L 3.9 4.7 4.4 4.1 CHLORIDE mmol/L 110 107 106 105 CO2 mmol/L 26 30 25 26 ANION GAP 5 2* 5 6 BUN mg/dL 25 13 14 12 CREATININE mg/dL 1.27* 0.74 0.72 0.61 CALCIUM mg/dL 8.8 9.1 9.4 10.1 MAGNESIUM mg/dL -- 2.1 2.0 1.8* Results from last 7 days Lab Units 08/23/24 1120 08/23/24 0758 08/23/24 0555 08/22/24 1924 08/22/24 1510 POCT GLUCOSE mg/dL 129* 144* -- 189* 151* GLUCOSE mg/dL -- -- 144* -- -- Results from last 7 days Lab Units 08/20/24 1211 AST unit/L 21 ALT unit/L 20 Recent Results (from the past week) Blood culture Collection Time: 08/20/24 1:53 PM Specimen: Blood, Venous Result Value Ref Range Culture, Blood No growth at 2 days Blood culture Collection Time: 08/20/24 1:53 PM Specimen: Blood, Venous Result Value Ref Range Culture, Blood No growth at 2 days MRSA molecular study Collection Time: 08/20/24 3:24 PM Specimen: Nares; Swab Result Value Ref Range MRSA Screen PCR Not Detected Not Detected Culture body fluid with gram stain Collection Time: 08/20/24 6:03 PM Specimen: Pleural Cavity, Left; Pleural Fluid Result Value Ref Range Fluid Culture No growth at 3 days Gram Stain Result Many Polymorphonuclear leukocytes (A) Gram Stain Result No Epithelial cells (A) Gram Stain Result Few Gram positive cocci in pairs and clusters (A) MRSA molecular study Collection Time: 08/21/24 9:30 AM Specimen: Nares; Swab Result Value Ref Range MRSA Screen PCR Not Detected Not Detected Culture fungal, other Collection Time: 08/21/24 11:21 AM Specimen: Pleural Cavity, Left; Tissue Result Value Ref Range Culture, Fungus Culture in progress Culture tissue with gram stain Collection Time: 08/21/24 11:21 AM Specimen: Pleural Cavity, Left; Tissue Result Value Ref Range Culture, Tissue No growth aerobically and anaerobically at 48 hours. Gram Stain Result Few Polymorphonuclear leukocytes Gram Stain Result No organisms seen Gram Stain Result No epithelial cells seen Acid fast bacilli stain Collection Time: 08/21/24 2:34 PM Specimen: Pleural Cavity, Left; Tissue Result Value Ref Range AFB Stain Result No Acid Fast Bacilli seen on direct smear No Acid fast bacilli seen on direct smear (Fuchsin method, 1000x) Imaging: XR Chest 1 View Narrative: History: Postop status post decortication left hemithorax. Comparison: 08/22/24, 08/20/24, thoracic CT 08/20/24 Findings: Portable AP upright chest at 3:55 AM. A large bore left thoracostomy tube terminates near the apex, unchanged from the most recent study.There is a small left apical pneumothorax, similar to the most recent study, with approximately 7 mm of pleural separation. Confluent left retrocardiac opacity is without significant change. Mild subcutaneous emphysema is seen adjacent to the left lower chest wall, unchanged. The right lung is grossly clear. The cardiac silhouette remains mildly enlarged. Impression: Impression: 1. Left chest tube well-positioned. 2. No significant change in small left apical pneumothorax. 3. Stable left retrocardiac opacity, possibly residual pleural-parenchymal process versus postop change. Telerad ADRIAN ([id number]) -------- FINAL REPORT -------- Dictated By: Caren Gillespie Dictated Date: 08/23/2024 09:01 ET Assigned Physician: Caren Gillespie Reviewed and Electronically Signed By: Caren Gillespie Signed Date: 08/23/2024 09:03 ET Workstation ID: [id number] Transcribed By: Self Edit Transcribed Date: 08/23/2024 09:01 ET ASSESSMENT & PLAN 74-year-old belarusian speaking female with PMH Hypertension, IBS, COPD/asthma, noninsulin dependent diabetes mellitus seen today with associate account director and family for complaint of chest pain and shortness ofbreath. Acute hypoxic respiratory failure secondary to loculated pleural effusion empyema Status post left chest tube placement on 08/20/[address] Ramirez Patient being followed by cardiothoracic and was taken for da Rod left total decortication along with pleural biopsy and bronchoscopy with aspiration, intercostal paravertebral nerve blocks. Patient tolerated the procedure well. Patient has 1 chest tube. Follow-up with cardiothoracic recommendations. Per cardiothoracic continue with chest tube management Per thoracic chest tube to be placed to waterseal at midnight tonight. Chest x-ray in the morning. Continue with IV antibiotics. Pain management will discontinue IV buprenorphine and started on IV Toradol. Increased creatinine today hence will discontinue Toradol MRSA swab was negative will discontinue IV vancomycin and continue with IV Zosyn at this time. FADIA in the setting of sepsis likely prerenal started on IV fluids we will continue to monitor. Hold NSAIDs COPD continue with her nebulizers and inhalers Type 2 diabetes not taking metformin continue on low-dose dose sliding scale Hypertension on antihypertensive medications which have been started Patient was found to be hypotensive hence hydrochlorothiazide and lisinopril held for now. Started on some IV fluids IBS on Linzess nonformulary held while inpatient. Continue with imipramine Hyperlipidemia on statin Fisher was discontinued on 08/22/2024. Patient urinating PT evaluation to be done Patient encouraged to ambulate DVT Prophylaxis Lovenox Full Code - Confirmed Disposition patient with chest tube this time on IV antibiotics needs PT evaluation. * Ang Thomas - 08/23/2024 9:40 AM EDT SPIRITUAL CARE Date/Time:08/23/24 at 9:40 AM EDT Type of Visit: Initial Visit and Computing Services Director Rounding Reason for Visit: Spiritual/Emotional Support Time Spent: 10 Minutes Location: [address] [place] [address] Sacramental Encounters: Spiritual Distress Assessment: Spiritual Assessment/Distress Spiritual Care Assessment: Assessment: Evelyn, was awake, alert, sitting up in bed at the time of visit. Very pleasant and all smiles. Her present in the room but on the phone with family. No concern raised. Dutch speaking. Expressed appreciation for the visit. Intervention: NE Spiritual Care Interventions : provided support Outcomes: expressed gratitude Plan of Care: Visit as needed *Reference: Spiritual Distress Assessment Tool: The SDAT is a clinical tool used by chaplains to identify unmet spiritual and emotional needs that can impact Goals of Care in the following categories: Spiritual Distress Assessment Legend Spiritual Needs Related Questions Meaning Are you having difficulties coping with what is happening to your now? Does your hospitalization have any repercussions on the way you live usually? Transcendence Do you have a particular amish, ashley, or spirituality? Is your amish/spirituality/ashley challenged by what is happening to you now? Values Do you think that the health professionals caring for you know you well enough? Do you feel that you are participating in the decisions made about your care? Psycho-Social Identity Do you have any worries or difficulties regarding your family or other persons close to you? Do you feel lonely? Do you have links to your ashley community? SCALE 0= no evidence of unmet spiritual needs 1= some evidence of unmet spiritual needs 2= substantial evidence of unmet spiritual needs 3= evidence of severe unmet spiritual needs * Savanah Davenport NP - 08/23/2024 8:23 AM EDT Images from the original note were not included. Thoracic Surgery Progress Note Patient Name: Evelyn Zamora : 1950 Date of Visit: 08/23/24 Subjective Patient seen and examined this am. at bedside. Patient feels as if she is doing overall well, she continues to have left sided pain from where chest tube is inserted. Allergies Allergen Reactions Morphine Current Facility-Administered Medications Medication Dose Route Frequency Provider Last Rate Last Admin acetaminophen (TYLENOL) tablet 1,000 mg 1,000 mg oral q8h Blayne Cooper MD albuterol 2.5 mg /3 mL (0.083 %) nebulizer solution 2.5 mg 2.5 mg nebulization q4h PRN ADRIAN Lubin aspirin chewable tablet 81 mg 81 mg oral Daily Blayne Cooper MD 81 mg at 08/22/24 0903 atorvastatin (LIPITOR) tablet 10 mg 10 mg oral Daily ADRIAN Lubin 10 mg at 08/22/24 0902 calcium carbonate (TUMS) chewable tablet 1,000 mg 1,000 mg oral Once ADRIAN Lubin dextrose (D50W) 50% injection 12.5 g 12.5 g intravenous q15 min PRN ADRIAN Lubin dextrose (D50W) 50% injection 25 g 25 g intravenous q15 min PRN ADRIAN Lubin dextrose 15 gram/60 mL oral solution 15 g 15 g oral q15 min PRN ADRIAN Lubin dextrose 15 gram/60 mL oral solution 30 g 30 g oral q15 min PRN ADRIAN Lubin dilTIAZem CD (CARDIZEM CD) 24 hr capsule 300 mg 300 mg oral Daily ADRIAN Lubin 300 mg at 08/22/24 09 docusate sodium (COLACE) capsule 100 mg 100 mg oral BID ADRIAN Lubin 100 mg at 08/22/24 1056 enoxaparin (LOVENOX) injection 40 mg 40 mg subcutaneous Daily Blayne Cooper MD 40 mg at 08/22/24 0903 [Held by provider] hydroCHLOROthiazide (MICROZIDE) capsule 12.5 mg 12.5 mg oral Daily ADRIAN Lubin imipramine (TOFRANIL) tablet 25 mg 25 mg oral BID ADRIAN Lubin 25 mg at 08/22/24 0902 insulin lispro injection 1-6 Units 1-6 Units subcutaneous TID AC ADRIAN Lubin 1 Units at 08/22/24 1230 ipratropium-albuteroL (DUONEB) 0.5-2.5 mg/3 mL nebulizer solution 3 mL 3 mL nebulization 4x daily ADRIAN Lubin 3 mL at 08/23/24 0812 ketorolac (TORADOL) injection 15 mg 15 mg intravenous q6h PRN Blayne Cooper MD 15 mg at 08/23/24 0601 lidocaine 4 % patch 1 patch 1 patch Topical Daily ADRIAN Lubin 1 patch at 08/22/24 09 [Held by provider] lisinopriL (PRINIVIL,ZESTRIL) tablet 40 mg 40 mg oral Daily ADRIAN Lubin 40 mg at 08/22/24 09 loratadine (CLARITIN) tablet 10 mg 10 mg oral Daily ADRIAN Lubin 10 mg at 08/22/24 09 magnesium hydroxide (MILK OF MAGNESIA) 400 mg/5 mL suspension 30 mL 30 mL oral Daily PRN ADRIAN Lubin magnesium oxide (MAG-OX) tablet 400 mg 400 mg oral Nightly ADRIAN Lubin 400 mg at 08/20/24 215 midodrine (PROAMATINE) tablet 2.5 mg 2.5 mg oral TID AC Blayne Cooper MD 2.5 mg at 08/22/24 1603 naloxone (NARCAN) injection 0.04 mg 0.04 mg intravenous PRN ADRIAN Lubin ondansetron (PF) (ZOFRAN) injection 4 mg 4 mg intravenous q6h PRN ADRIAN Lubin 4 mg at 08/22/24 2232 oxyCODONE (ROXICODONE) immediate release tablet 10 mg 10 mg oral q4h PRN ADRIAN Lubin 10 mg at 08/22/24926 oxyCODONE (ROXICODONE) immediate release tablet 5 mg 5 mg oral q4h PRN ADRIAN Lubin pantoprazole (PROTONIX) EC tablet 40 mg 40 mg oral q AM AC ADRIAN Lubin 40 mg at 08/23/24 0602 piperacillin-tazobactam (ZOSYN) 4.5 g in sodium chloride 0.9 % 100 mL IVPB 4.5 g intravenous q6h Blayne Cooper MD Stopped at 08/23/24 0659 polyethylene glycol (MIRALAX) packet 17 g 17 g oral Nightly ADRIAN Lubin predniSONE (DELTASONE) tablet 40 mg 40 mg oral Daily Blayne Cooper MD 40 mg at 08/22/24 0903 roflumilast (DALIRESP) tablet 500 mcg 500 mcg oral Daily ADRIAN Lubin 500 mcg at 08/22/24 0902 senna (SENOKOT) tablet 17.2 mg 2 tablet oral Nightly ADRIAN Lubin simethicone (MYLICON) chewable tablet 160 mg 160 mg oral 4x daily PRN ADRIAN Chatterjee 160 mg at 08/21/24 1747 sodium chloride 0.9 % flush 10 mL 10 mL intravenous BID ADRIAN Lubin 10 mL at 08/22/24 2242 And sodium chloride 0.9 % flush 10 mL 10 mL intravenous PRN ADRIAN Lubin sodium chloride 0.9 % infusion 100 mL/hr intravenous Continuous Blayne Cooper MD 100 mL/hr at 08/22/24 2241 100 mL/hr at 08/22/24 2241 vancomycin (VANCOCIN) IVPB 1,250 mg in 0.9 % sodium chloride 250 mL - CNR 1,250 mg intravenous [id number] Hall Stopped at 08/23/24 0101 Review of Systems Review of Systems Constitutional: Negative for chills and fever. Cardiovascular: Negative for chest pain. Respiratory: Positive for cough. Negative for hemoptysis and shortness of breath. Gastrointestinal: Positive for constipation. Negative for bloating, abdominal pain, nausea and vomiting. Physical Exam Vitals: 08/22/24 2325 08/23/24 0401 08/23/24 0757 08/23/24 0812 BP: 130/67 134/82 135/71 BP Location: Left arm Right arm Left arm Patient Position: Lying Lying Sitting Pulse: 81 77 72 71 Resp: 15 18 12 19 Temp: 36.8 ??C (98.2 ??F) 36.5 ??C (97.7 ??F) 36.1 ??C (97 ??F) TempSrc: Oral Oral Temporal SpO2: 93% 94% 95% 94% Weight: Height: Physical Exam Vitals and nursing note reviewed. Constitutional: Appearance: Normal appearance. HENT: Head: Normocephalic and atraumatic. Cardiovascular: Rate and Rhythm: Normal rate and regular rhythm. Pulmonary: Effort: Pulmonary effort is normal. Breath sounds: Normal breath sounds. Chest: Comments: Multiple left sided chest incisions are C/D/I without erythema, edema, open areas, or drainage. Left sided chest tube to [facility] on -20 suction, 120 cc sanguinous drainage, no air leak. Abdominal: General: Bowel sounds are decreased. Palpations: Abdomen is soft. Neurological: General: No focal deficit present. Mental Status: She is alert and oriented to person, place, and time. Psychiatric: Mood and Affect: Mood normal. Behavior: Behavior normal. Diagnostics Lab Results Component Value Date WBC 18.4 (H) 08/23/2024 HGB 11.5 08/23/2024 HCT 35.8 08/23/2024 PLT 297 08/23/2024 Lab Results Component Value Date NA 141 08/23/2024 K 3.9 08/23/2024 CL 110 08/23/2024 CO2 26 08/23/2024 ANIONGAP 5 08/23/2024 BUN 25 08/23/2024 CREATININE 1.27 (H) 08/23/2024 GLUCOSE 144 (H) 08/23/2024 EGFR 44 (L) 08/23/2024 CALCIUM 8.8 08/23/2024 No results found for: PT , INR , APTT Microbiology Recent Results (from the past week) Blood culture Collection Time: 08/20/24 1:53 PM Specimen: Blood, Venous Result Value Ref Range Culture, Blood No growth at 2 days Blood culture Collection Time: 08/20/24 1:53 PM Specimen: Blood, Venous Result Value Ref Range Culture, Blood No growth at 2 days MRSA molecular study Collection Time: 08/20/24 3:24 PM Specimen: Nares; Swab Result Value Ref Range MRSA Screen PCR Not Detected Not Detected Culture body fluid with gram stain Collection Time: 08/20/24 6:03 PM Specimen: Pleural Cavity, Left; Pleural Fluid Result Value Ref Range Fluid Culture No growth at 2 days Gram Stain Result Many Polymorphonuclear leukocytes (A) Gram Stain Result No Epithelial cells (A) Gram Stain Result Few Gram positive cocci in pairs and clusters (A) MRSA molecular study Collection Time: 08/21/24 9:30 AM Specimen: Nares; Swab Result Value Ref Range MRSA Screen PCR Not Detected Not Detected Culture tissue with gram stain Collection Time: 08/21/24 11:21 AM Specimen: Pleural Cavity, Left; Tissue Result Value Ref Range Culture, Tissue No growth aerobically and anaerobically at 48 hours. Gram Stain Result Few Polymorphonuclear leukocytes Gram Stain Result No organisms seen Gram Stain Result No epithelial cells seen Acid fast bacilli stain Collection Time: 08/21/24 2:34 PM Specimen: Pleural Cavity, Left; Tissue Result Value Ref Range AFB Stain Result No Acid Fast Bacilli seen on direct smear No Acid fast bacilli seen on direct smear (Fuchsin method, 1000x) Radiology 08/23/24 XR Chest 1 View Narrative: PROCEDURE: AP chest radiograph. HISTORY: s/p L decortication. COMPARISON: 08/21/2024. FINDINGS: Stable left apical chest tube. Unchanged patchy opacity at the left base, likely a combination of asmall pleural effusion and nonspecific adjacent parenchymal opacity. Stable mild atelectasis at theright base. A small right pleural effusion has resolved. Unchanged cardiomediastinal contours. Atherosclerotic calcification of the aorta. Impression: A small right pleural effusion has decreased in size. Otherwise no significant interval change. -------- FINAL REPORT -------- Dictated By: Jossue Benitez Dictated Date: 08/22/2024 09:11 ET Assigned Physician: Jossue Benitez Reviewed and Electronically Signed By: Jossue Benitez Signed Date: 08/22/2024 09:21 ET Workstation ID: [id number] Transcribed By: Self Edit Transcribed Date: 08/22/2024 09:11 ET Assessment and Plan 2 Days Post-Op s/p Procedure(s): da rod THORACOSCOPY DECORTICATION Left empyema/pneumonia Chest tube to remain -20 suction and will be placed to waterseal @ midnight tonight. Continue to monitor xrays in the am. Leukocytosis expected after decortication and use of steroids, trending down, today 18.4 from 20.2 yesterday. Preliminary pleural fluid culture showing +few GPC. Pleural rind culture, pleural fluid cytology, and left pleural biopsy pending from OR. Continues on Zosyn Pain management Tylenol ATC Oxycodone PO as needed based on pain scale Lidocaine patch daily, avoid placing over incisions. Pulmonary toilet IS Flutter valve Ambulation Activity Patient should be OOB ambulating in the hallways at least 3-4 times daily. Patient should be OOB to chair for all meals. Patient should be OOB to the chair for the majority of the day as tolerated. Bowel regimen Miralax and Colace daily. Senna and MOM as needed. DVT prophylaxis: Heparin SQ, SCDs GI prophylaxis: Pantoprazole Savanah Davenport NP [facility] Thoracic Surgery [address], [address] [facility] [address] * Stacy Juan RN - 08/22/2024 12:57 PM EDT 08/22/24 1257 Initial Transition Plan Initial Transition Plan Home Discharge Planning Living Arrangements Children Type of Residence Private residence Assistive Devices Eyeglasses;Walker;Cane Support Systems Children Medication Coverage Has Med Coverage Under Insurance Plan Yes Medication Affordability No concerns related to payment for meds Anticipated Discharge Needs Discipline following for SNF placement Strip Cutter Informed Choice Informed Choice Given? Yes ICC met with patient and multiple family members at bedside. Patient lives with her and is independent in the home. Denies need for services at this time,, states she has plenty of children that can help take care of her. * Blayne Cooper MD - 08/22/2024 12:38 PM EDT Images from the original note were not included. CHUNG PROGRESS NOTE Date: 08/22/2024 Author: Blayne Cooper MD Patient ID: Evelyn Zamora is a 74 y.o. female : 1950 MR#: [id number] 08/20/2024 SUBJECTIVE Patient seen and examined along with the client services vice president and thoracic PA. Patient unable to sleep overnight. Continues to complain of dizziness and pain in her chest and where the chest tube is. Also complaining of headache. She also complained of some nausea overnight and was given Zofran. Shementions that she did throw up early this morning. Her last bowel movement was 4 days ago. Scheduled Medications PRN Medications IV Medications acetaminophen, 1,000 mg, q8h URIAH aspirin, 81 mg, Daily atorvastatin, 10 mg, Daily calcium carbonate, 1,000 mg, Once dilTIAZem CD, 300 mg, Daily docusate sodium, 100 mg, BID enoxaparin, 40 mg, Daily [Held by provider] hydroCHLOROthiazide, 12.5 mg, Daily imipramine, 25 mg, BID insulin lispro, 1-6 Units, TID AC ipratropium-albuteroL, 3 mL, 4x daily lidocaine, 1 patch, Daily [Held by provider] lisinopril, 40 mg, Daily loratadine, 10 mg, Daily magnesium oxide, 400 mg, Nightly midodrine, 2.5 mg, TID AC pantoprazole, 40 mg, q AM AC piperacillin-tazobactam, 4.5 g, q6h polyetheylene glycol, 17 g, Nightly predniSONE, 40 mg, Daily roflumilast, 500 mcg, Daily senna, 2 tablet, Nightly sodium chloride, 10 mL, BID vancomycin, 1,250 mg, q12h albuterol, 2.5 mg, q4h PRN dextrose 50%, 12.5 g, q15 min PRN dextrose 50%, 25 g, q15 min PRN dextrose, 15 g, q15 min PRN dextrose, 30 g, q15 min PRN ketorolac, 15 mg, q6h PRN magnesium hydroxide, 30 mL, Daily PRN naloxone, 0.04 mg, PRN ondansetron, 4 mg, q6h PRN oxyCODONE, 10 mg, q4h PRN oxyCODONE, 5 mg, q4h PRN simethicone, 160 mg, 4x daily PRN sodium chloride, 10 mL, PRN sodium chloride, Last Rate: 100 mL/hr (08/22/24 1234) OBJECTIVE Vitals: 08/22/24 0658 08/22/24 0739 08/22/24 1130 08/22/24 1201 BP: 100/62 (!) 92/48 BP Location: Right arm Right arm Patient Position: Lying Lying Pulse: 67 86 Resp: 18 16 Temp: 36.7 ??C (98.1 ??F) 36.2 ??C (97.2 ??F) TempSrc: Oral Temporal SpO2: 95% 95% 92% 92% Weight: Height: Intake/Output Summary (Last 24 hours) at 08/22/2024 1238 Last data filed at 08/22/2024 0636 Gross per 24 hour Intake 500 ml Output 435 ml Net 65 ml Wt Readings from Last 1 Encounters: 08/20/24 1143 88.5 kg (195 lb) PHYSICAL EXAM: Gen: Alert oriented 3, NAD CV -RRR no MGR Lungs -left sided chest incision clean dry and intact. Left side chest tube present. Diffuse rhonchi present. Abd - Soft, non-tender, non-distended Extremities - No LE edema Neuro - AO x3 RESULTS: CBC BMP Results from last 7 days Lab Units 08/22/24 0653 08/21/24 0554 08/20/24 1211 WBC AUTO K/mcL 20.2* 9.7 13.2* HEMOGLOBIN g/dL 11.8 13.2 13.7 HEMATOCRIT % 37.7 40.7 41.9 PLATELETS K/mcL 317 314 323 LYMPHS PCT MAN % -- -- 6.0 LYMPHS PCT AUTO % 3.7 4.7 -- MONO PCT MAN % -- -- 5.0 MONO PCT AUTO % 4.3 0.9 -- EOS PCT MAN % -- -- 20.0 EOS PCT AUTO % 0.0 0.9 -- Results from last 7 days Lab Units 08/22/24 0653 08/21/24 0554 08/20/24 1211 SODIUM mmol/L 139 136 137 POTASSIUM mmol/L 4.7 4.4 4.1 CHLORIDE mmol/L 107 106 105 CO2 mmol/L 30 25 26 ANION GAP 2* 5 6 BUN mg/dL 13 14 12 CREATININE mg/dL 0.74 0.72 0.61 CALCIUM mg/dL 9.1 9.4 10.1 MAGNESIUM mg/dL 2.1 2.0 1.8* Results from last 7 days Lab Units 08/22/24 1201 08/22/24 0726 08/22/24 0653 08/21/24 1450 08/21/24 0758 POCT GLUCOSE mg/dL 173* 148* -- 165* 161* GLUCOSE mg/dL -- -- 154* -- -- Results from last 7 days Lab Units 08/20/24 1211 AST unit/L 21 ALT unit/L 20 Recent Results (from the past week) Blood culture Collection Time: 08/20/24 1:53 PM Specimen: Blood, Venous Result Value Ref Range Culture, Blood No growth at 24 hours Blood culture Collection Time: 08/20/24 1:53 PM Specimen: Blood, Venous Result Value Ref Range Culture, Blood No growth at 24 hours MRSA molecular study Collection Time: 08/20/24 3:24 PM Specimen: Nares; Swab Result Value Ref Range MRSA Screen PCR Not Detected Not Detected Culture body fluid with gram stain Collection Time: 08/20/24 6:03 PM Specimen: Pleural Cavity, Left; Pleural Fluid Result Value Ref Range Fluid Culture No growth at 2 days Gram Stain Result Many Polymorphonuclear leukocytes (A) Gram Stain Result No Epithelial cells (A) Gram Stain Result Few Gram positive cocci in pairs and clusters (A) MRSA molecular study Collection Time: 08/21/24 9:30 AM Specimen: Nares; Swab Result Value Ref Range MRSA Screen PCR Not Detected Not Detected Culture tissue with gram stain Collection Time: 08/21/24 11:21 AM Specimen: Pleural Cavity, Left; Tissue Result Value Ref Range Culture, Tissue No growth at 1 day Gram Stain Result Few Polymorphonuclear leukocytes Gram Stain Result No organisms seen Gram Stain Result No epithelial cells seen Acid fast bacilli stain Collection Time: 08/21/24 2:34 PM Specimen: Pleural Cavity, Left; Tissue Result Value Ref Range AFB Stain Result No Acid Fast Bacilli seen on direct smear No Acid fast bacilli seen on direct smear (Fuchsin method, 1000x) Imaging: XR Chest 1 View Narrative: PROCEDURE: AP chest radiograph. HISTORY: s/p L decortication. COMPARISON: 08/21/2024. FINDINGS: Stable left apical chest tube. Unchanged patchy opacity at the left base, likely a combination of asmall pleural effusion and nonspecific adjacent parenchymal opacity. Stable mild atelectasis at theright base. A small right pleural effusion has resolved. Unchanged cardiomediastinal contours. Atherosclerotic calcification of the aorta. Impression: A small right pleural effusion has decreased in size. Otherwise no significant interval change. -------- FINAL REPORT -------- Dictated By: Jossue Benitez Dictated Date: 08/22/2024 09:11 ET Assigned Physician: Jossue Benitez Reviewed and Electronically Signed By: Jossue Benitez Signed Date: 08/22/2024 09:21 ET Workstation ID: [id number] Transcribed By: Self Edit Transcribed Date: 08/22/2024 09:11 ET ASSESSMENT & PLAN 74-year-old belarusian speaking female with PMH Hypertension, IBS, COPD/asthma, noninsulin dependent diabetes mellitus seen today with associate account director and family for complaint of chest pain and shortness ofbreath. Acute hypoxic respiratory failure secondary to loculated pleural effusion empyema Status post left chest tube placement on 08/20/[address] Ramirez Patient being followed by cardiothoracic and was taken for da Rod left total decortication along with pleural biopsy and bronchoscopy with aspiration, intercostal paravertebral nerve blocks. Patient tolerated the procedure well. Patient has 1 chest tube. Follow-up with cardiothoracic recommendations. Per cardiothoracic continue with chest tube at this time. Chest x-ray in the morning. Continue with IV antibiotics. Pain management will discontinue IV buprenorphine and started on IV Toradol. A little dizzy today and was hypotensive COPD continue with her nebulizers and inhalers Type 2 diabetes not taking metformin continue on low-dose dose sliding scale Hypertension on antihypertensive medications which have been started Patient was found to be hypotensive hence hydrochlorothiazide and lisinopril held for now. Started on some IV fluids IBS on Linzess nonformulary held while inpatient. Continue with imipramine Hyperlipidemia on statin BALJIT Fisher today. PT evaluation to be done Patient encouraged to ambulate DVT Prophylaxis Lovenox Full Code - Confirmed Disposition patient with chest tube * ADRIAN Lubin - 08/22/2024 10:31 AM EDT Images from the original note were not included. Thoracic Surgery Progress Note Patient Name: Evelyn Zamora : 1950 Date of Visit: 08/22/24 Subjective Video client services vice president used. Patient states she has ongoing pain in her left chest, but improved overall. States she had some nausea overnight and was given some Zofran. States last BM was ~4 days ago; RN states 08/20 was last documented. Denies any severe abdominal pain or distention. No SOB, no hemoptysis. Allergies Allergen Reactions Morphine Current Facility-Administered Medications Medication Dose Route Frequency Provider Last Rate Last Admin acetaminophen (TYLENOL) tablet 1,000 mg 1,000 mg oral q8h [facility] ADRIAN Lubin albuterol 2.5 mg /3 mL (0.083 %) nebulizer solution 2.5 mg 2.5 mg nebulization q4h PRN ADRIAN Lubin aspirin chewable tablet 81 mg 81 mg oral Daily Blayne Cooper MD 81 mg at 08/22/24 09 atorvastatin (LIPITOR) tablet 10 mg 10 mg oral Daily ADRIAN Lubin 10 mg at 08/22/24 0902 buprenorphine HCL (BUPRENEX) injection solution 0.3 mg 0.3 mg intravenous q6h PRN Blayne Cooper MD 0.3 mg at 08/21/24 1838 calcium carbonate (TUMS) chewable tablet 1,000 mg 1,000 mg oral Once ADRIAN Lubin dextrose (D50W) 50% injection 12.5 g 12.5 g intravenous q15 min PRN ADRIAN Lubin dextrose (D50W) 50% injection 25 g 25 g intravenous q15 min PRN ADRIAN Lubin dextrose 15 gram/60 mL oral solution 15 g 15 g oral q15 min PRN ADRIAN Lubin dextrose 15 gram/60 mL oral solution 30 g 30 g oral q15 min PRN ADRIAN Lubin dilTIAZem CD (CARDIZEM CD) 24 hr capsule 300 mg 300 mg oral Daily ADRIAN Lubin 300 mg at 08/22/24901 docusate sodium (COLACE) capsule 100 mg 100 mg oral BID ADRIAN Lubin enoxaparin (LOVENOX) injection 40 mg 40 mg subcutaneous Daily Blayne Cooper MD 40 mg at 08/22/24 09 hydroCHLOROthiazide (MICROZIDE) capsule 12.5 mg 12.5 mg oral Daily ADRIAN Lubin imipramine (TOFRANIL) tablet 25 mg 25 mg oral BID ADRIAN Lubin 25 mg at 08/22/24 0902 insulin lispro injection 1-6 Units 1-6 Units subcutaneous TID AC ADRIAN Lubin 1 Units at 08/21/24 1716 ipratropium-albuteroL (DUONEB) 0.5-2.5 mg/3 mL nebulizer solution 3 mL 3 mL nebulization 4x daily ADRIAN Lubin 3 mL at 08/22/24 0734 lidocaine 4 % patch 1 patch 1 patch Topical Daily ADRIAN Lubin 1 patch at 08/22/24 0903 lisinopriL (PRINIVIL,ZESTRIL) tablet 40 mg 40 mg oral Daily ADRIAN Lubin 40 mg at 08/22/24 09 loratadine (CLARITIN) tablet 10 mg 10 mg oral Daily ADRIAN Lubin 10 mg at 08/22/24 0903 magnesium hydroxide (MILK OF MAGNESIA) 400 mg/5 mL suspension 30 mL 30 mL oral Daily PRN ADRIAN Lubin magnesium oxide (MAG-OX) tablet 400 mg 400 mg oral Nightly ADRIAN Lubin 400 mg at 08/20/24 2154 naloxone (NARCAN) injection 0.04 mg 0.04 mg intravenous PRN ADRIAN Lubin ondansetron (PF) (ZOFRAN) injection 4 mg 4 mg intravenous q6h PRN ADRIAN Lubin 4 mg at 08/21/24 1747 oxyCODONE (ROXICODONE) immediate release tablet 10 mg 10 mg oral q4h PRN ADRIAN Lubin 10 mg at 08/22/24 09 oxyCODONE (ROXICODONE) immediate release tablet 5 mg 5 mg oral q4h PRN ADRIAN Lubin pantoprazole (PROTONIX) EC tablet 40 mg 40 mg oral q AM AC ADRIAN Lubin 40 mg at 08/21/24 0633 piperacillin-tazobactam (ZOSYN) 4.5 g in sodium chloride 0.9 % 100 mL IVPB 4.5 g intravenous q6h ADRIAN Lubin Stopped at 08/22/24 0546 polyethylene glycol (MIRALAX) packet 17 g 17 g oral Nightly ADRIAN Lubin predniSONE (DELTASONE) tablet 40 mg 40 mg oral Daily Blayne Cooper MD 40 mg at 08/22/24 0903 roflumilast (DALIRESP) tablet 500 mcg 500 mcg oral Daily ADRIAN Lubin 500 mcg at 08/22/24 0902 senna (SENOKOT) tablet 17.2 mg 2 tablet oral Nightly ADRIAN Lubin simethicone (MYLICON) chewable tablet 160 mg 160 mg oral 4x daily PRN ADRIAN Chatterjee 160 mg at 08/21/24 1747 sodium chloride 0.9 % flush 10 mL 10 mL intravenous BID ADRIAN Lubin 10 mL at 08/22/24 0905 And sodium chloride 0.9 % flush 10 mL 10 mL intravenous PRN ADRIAN Lubin vancomycin (VANCOCIN) IVPB 1,250 mg in 0.9 % sodium chloride 250 mL - CNR 1,250 mg intravenous [id number] Nolan 166.7 mL/hr at 08/22/24 0903 1,250 mg at 08/22/24 0903 Review of Systems Review of Systems Constitutional: Negative for chills and fever. HENT: Negative for congestion and hoarse voice. Cardiovascular: Negative for chest pain and palpitations. Respiratory: Negative for cough, hemoptysis, shortness of breath and sputum production. Gastrointestinal: Positive for constipation (chronic issues, states has to take stool softeners at home) and nausea (overnight, not currently.). Negative for abdominal pain, diarrhea and vomiting. Genitourinary: Fisher in place Neurological: Positive for dizziness. Physical Exam Vitals: 08/21/24 2312 08/22/24 0402 08/22/24 0658 08/22/24 0739 BP: 119/70 94/60 100/62 BP Location: Right arm Right arm Right arm Patient Position: Lying Lying Lying Pulse: 76 72 67 Resp: 18 20 18 Temp: 36.6 ??C (97.8 ??F) 36.3 ??C (97.3 ??F) 36.7 ??C (98.1 ??F) TempSrc: Temporal Temporal Oral SpO2: 96% 93% 95% 95% Weight: Height: Physical Exam Vitals reviewed. Constitutional: General: She is not in acute distress. Appearance: She is well-developed. She is not ill-appearing, toxic-appearing or diaphoretic. HENT: Head: Normocephalic and atraumatic. Mouth/Throat: Mouth: Mucous membranes are moist. Eyes: General: Lids are normal. No scleral icterus. Neck: Trachea: No tracheal deviation. Pulmonary: Effort: Pulmonary effort is normal. No accessory muscle usage or respiratory distress. Chest: Chest wall: No crepitus. Comments: Multiple left sided chest incisions are C/D/I without erythema, edema, open areas, or drainage. Left sided chest tube to [facility] on -20 suction, 200cc sanguinous drainage, no air leak. Musculoskeletal: Cervical back: Neck supple. No crepitus. Right lower leg: No edema. Left lower leg: No edema. Skin: General: Skin is warm and dry. Findings: No rash. Neurological: Mental Status: She is alert and oriented to person, place, and time. Psychiatric: Attention and Perception: Attention normal. Mood and Affect: Mood normal. Speech: Speech normal. Behavior: Behavior normal. Behavior is cooperative. Diagnostics Lab Results Component Value Date WBC 20.2 (H) 08/22/2024 HGB 11.8 08/22/2024 HCT 37.7 08/22/2024 PLT 317 08/22/2024 Lab Results Component Value Date NA 139 08/22/2024 K 4.7 08/22/2024 CL 107 08/22/2024 CO2 30 08/22/2024 ANIONGAP 2 (L) 08/22/2024 BUN 13 08/22/2024 CREATININE 0.74 08/22/2024 GLUCOSE 148 (H) 08/22/2024 EGFR 84 08/22/2024 CALCIUM 9.1 08/22/2024 Microbiology Recent Results (from the past week) Blood culture Collection Time: 08/20/24 1:53 PM Specimen: Blood, Venous Result Value Ref Range Culture, Blood No growth at 24 hours Blood culture Collection Time: 08/20/24 1:53 PM Specimen: Blood, Venous Result Value Ref Range Culture, Blood No growth at 24 hours MRSA molecular study Collection Time: 08/20/24 3:24 PM Specimen: Nares; Swab Result Value Ref Range MRSA Screen PCR Not Detected Not Detected Culture body fluid with gram stain Collection Time: 08/20/24 6:03 PM Specimen: Pleural Cavity, Left; Pleural Fluid Result Value Ref Range Fluid Culture No growth at 1 day Gram Stain Result Many Polymorphonuclear leukocytes (A) Gram Stain Result No Epithelial cells (A) Gram Stain Result Few Gram positive cocci in pairs and clusters (A) MRSA molecular study Collection Time: 08/21/24 9:30 AM Specimen: Nares; Swab Result Value Ref Range MRSA Screen PCR Not Detected Not Detected Culture tissue with gram stain Collection Time: 08/21/24 11:21 AM Specimen: Pleural Cavity, Left; Tissue Result Value Ref Range Culture, Tissue No growth at 1 day Gram Stain Result Few Polymorphonuclear leukocytes Gram Stain Result No organisms seen Gram Stain Result No epithelial cells seen Acid fast bacilli stain Collection Time: 08/21/24 2:34 PM Specimen: Pleural Cavity, Left; Tissue Result Value Ref Range AFB Stain Result No Acid Fast Bacilli seen on direct smear No Acid fast bacilli seen on direct smear (Fuchsin method, 1000x) Pathology Cytology and pathology from OR pending. Radiology 08/22/24 XR Chest 1 View Narrative: PROCEDURE: AP chest radiograph. HISTORY: s/p L decortication. COMPARISON: 08/21/2024. FINDINGS: Stable left apical chest tube. Unchanged patchy opacity at the left base, likely a combination of asmall pleural effusion and nonspecific adjacent parenchymal opacity. Stable mild atelectasis at theright base. A small right pleural effusion has resolved. Unchanged cardiomediastinal contours. Atherosclerotic calcification of the aorta. Impression: A small right pleural effusion has decreased in size. Otherwise no significant interval change. -------- FINAL REPORT -------- Dictated By: Jossue Benitez Dictated Date: 08/22/2024 09:11 ET Assigned Physician: Jossue Benitez Reviewed and Electronically Signed By: Jossue Benitez Signed Date: 08/22/2024 09:21 ET Workstation ID: [id number] Transcribed By: Self Edit Transcribed Date: 08/22/2024 09:11 ET Assessment and Plan POD#1 s/p robotic L decortication and pleural biopsy. Left empyema/pneumonia Will continue chest tube to -20 suction today and monitor output. Morning CXR ordered. Leukocytosis expected postoperatively, especially after decortication. Patient also on steroids. Trend. Check morning labs. Pleural fluid culture 08/20, +few GPC. Final pending. Currently on Vanco/Zosyn. Pleural rind culture, pleural fluid cytology, and left pleural biopsy pending from OR. Pain management Added Tylenol ATC Oxycodone PO as needed based on pain scale Lidocaine patch daily. Avoid placing over incisions. Pulmonary toilet IS Flutter valve Ambulation Bowel regimen Miralax daily Added Colace and Senna Activity Patient should be OOB ambulating in the hallways at least 3-4 times daily. Patient should be OOB to chair for all meals. Patient should be OOB to the chair for the majority of the day as tolerated. DVT prophylaxis: Heparin SQ, SCDs ADRIAN Lubin [facility] Thoracic Surgery [address] [place] [address], [address] [facility] [id number] * Arsh Long RN - 08/22/2024 2:05 AM EDT Problem: Cognitive: Acute Pain Goal: Expressions of feelings of enhanced comfort will increase Outcome: Not Progressing Problem: Falls: Fall Risk (Adult IP BH) Goal: (Goal) Patient will experience maximum safety and reduce risk for falls. Outcome: Progressing Goals: Identify possible barriers to meeting goals/advancing plan of care: pain control Stability of the patient: Moderately Unstable - Medium risk of patient condition declining or worsening End of Shift Summary: pt is alert and orientated x4 belarusian speaking associate account director need but, family is at the bedside. Pt refused all po 2100 medication due to increase nausea/ vomiting. Pt c/o of dizziness PA was notified and ordered a dose of benadryl. Pt has a left chest tube dressing is clean, dry, and intact. Anxious behavior noted when pain/ nausea-vomiting episodes are present. Care ongoing at this time * Blayne Cooper MD - 08/21/2024 3:12 PM EDT Images from the original note were not included. CHUNG PROGRESS NOTE Date: 08/21/2024 Author: Blayne Cooper MD Patient ID: Evelyn Zamora is a 74 y.o. female : 1950 MR#: [id number] 08/20/2024 SUBJECTIVE Patient seen earlier was complaining of pain. Patient to be taken to the OR today for decortication. Scheduled Medications PRN Medications IV Medications [Held by provider] aspirin, 81 mg, Daily atorvastatin, 10 mg, Daily calcium carbonate, 1,000 mg, Once dilTIAZem CD, 300 mg, Daily hydroCHLOROthiazide, 12.5 mg, Daily imipramine, 25 mg, BID insulin lispro, 1-6 Units, TID AC ipratropium-albuteroL, 3 mL, 4x daily lidocaine, 1 patch, Daily lisinopril, 40 mg, Daily loratadine, 10 mg, Daily magnesium oxide, 400 mg, Nightly methylPREDNISolone sod suc, 40 mg, q8h pantoprazole, 40 mg, q AM AC piperacillin-tazobactam, 4.5 g, q6h polyetheylene glycol, 17 g, Nightly roflumilast, 500 mcg, Daily sodium chloride, 10 mL, BID vancomycin, 1,250 mg, q12h acetaminophen, 650 mg, q6h PRN albuterol, 2.5 mg, q4h PRN dextrose 50%, 12.5 g, q15 min PRN dextrose 50%, 25 g, q15 min PRN dextrose, 15 g, q15 min PRN dextrose, 30 g, q15 min PRN HYDROmorphone, 0.25 mg, q3h PRN magnesium hydroxide, 30 mL, Daily PRN naloxone, 0.04 mg, PRN ondansetron, 4 mg, q6h PRN oxyCODONE, 10 mg, q4h PRN oxyCODONE, 5 mg, q4h PRN sodium chloride, 10 mL, PRN OBJECTIVE Vitals: 08/21/24 1350 08/21/24 1400 08/21/24 1410 08/21/24 1449 BP: 138/64 138/69 132/70 112/65 BP Location: Left arm Patient Position: Lying Pulse: 82 81 80 78 Resp: 13 16 14 16 Temp: 36.3 ??C (97.4 ??F) TempSrc: Temporal SpO2: 94% 93% 94% 94% Weight: Height: Intake/Output Summary (Last 24 hours) at 08/21/2024 1512 Last data filed at 08/21/2024 1208 Gross per 24 hour Intake 913.85 ml Output 1060 ml Net -146.15 ml Wt Readings from Last 1 Encounters: 08/20/24 1143 88.5 kg (195 lb) PHYSICAL EXAM: Gen: Alert oriented 3, NAD CV -RRR no MGR Lungs -present. Patient complaining of pain where the chest tube is. Abd - Soft, non-tender, non-distended Extremities - No LE edema Neuro - AO x3 RESULTS: CBC BMP Results from last 7 days Lab Units 08/21/24 0554 08/20/24 1211 WBC AUTO K/mcL 9.7 13.2* HEMOGLOBIN g/dL 13.2 13.7 HEMATOCRIT % 40.7 41.9 PLATELETS K/mcL 314 323 LYMPHS PCT MAN % -- 6.0 LYMPHS PCT AUTO % 4.7 -- MONO PCT MAN % -- 5.0 MONO PCT AUTO % 0.9 -- EOS PCT MAN % -- 20.0 EOS PCT AUTO % 0.9 -- Results from last 7 days Lab Units 08/21/24 0554 08/20/24 1211 SODIUM mmol/L 136 137 POTASSIUM mmol/L 4.4 4.1 CHLORIDE mmol/L 106 105 CO2 mmol/L 25 26 ANION GAP 5 6 BUN mg/dL 14 12 CREATININE mg/dL 0.72 0.61 CALCIUM mg/dL 9.4 10.1 MAGNESIUM mg/dL 2.0 1.8* Results from last 7 days Lab Units 08/21/24 1450 08/21/24 0758 08/21/24 0554 08/20/24 2056 08/20/24 1211 POCT GLUCOSE mg/dL 165* 161* -- 139* -- GLUCOSE mg/dL -- -- 160* -- 88 Results from last 7 days Lab Units 08/20/24 1211 AST unit/L 21 ALT unit/L 20 Recent Results (from the past week) Blood culture Collection Time: 08/20/24 1:53 PM Specimen: Blood, Venous Result Value Ref Range Culture, Blood No growth at 24 hours Blood culture Collection Time: 08/20/24 1:53 PM Specimen: Blood, Venous Result Value Ref Range Culture, Blood No growth at 24 hours MRSA molecular study Collection Time: 08/20/24 3:24 PM Specimen: Nares; Swab Result Value Ref Range MRSA Screen PCR Not Detected Not Detected Culture body fluid with gram stain Collection Time: 08/20/24 6:03 PM Specimen: Pleural Cavity, Left; Pleural Fluid Result Value Ref Range Fluid Culture No growth at 1 day Gram Stain Result Many Polymorphonuclear leukocytes (A) Gram Stain Result No Epithelial cells (A) Gram Stain Result Few Gram positive cocci in pairs and clusters (A) MRSA molecular study Collection Time: 08/21/24 9:30 AM Specimen: Nares; Swab Result Value Ref Range MRSA Screen PCR Not Detected Not Detected Imaging: XR Chest 1 View Narrative: PROCEDURE: AP chest radiograph. HISTORY: s/p L decortication. in PACU. COMPARISON: 08/21/2024. FINDINGS: The left apical chest tube. Suggestion of a small left apical pneumothorax. Left basilar pigtail pleural drainage catheter is been removed. There is slightly increased pleural prominence along the lateral left hemithorax. Irregular pleural thickening along the inferior right hemithorax with blunting of the right costophrenic angle which also appears more prominent compared with the previous study. Unchanged cardiomediastinal contours. Impression: 1. New left chest tube with removal of a left pigtail pleural drainage catheter. Suggestion of a small left apical pneumothorax. 2. Interval increased pleural prominence in the lower hemithoraces, suggesting small pleural effusions. Lobulated contour on the right suggesting loculation. -------- FINAL REPORT -------- Dictated By: Jossue Benitez Dictated Date: 08/21/2024 13:21 ET Assigned Physician: Jossue Benitez Reviewed and Electronically Signed By: Jossue Benitez Signed Date: 08/21/2024 13:32 ET Workstation ID: [id number] Transcribed By: Self Edit Transcribed Date: 08/21/2024 13:24 ET XR Chest 1 View Narrative: PROCEDURE: AP chest radiograph. HISTORY: Left loculated pleural effusion. COMPARISON: 08/21/2023. FINDINGS: Stable left basilar pigtail pleural drainage catheter and stable left basilar opacity. A previouslydemonstrated trace left apical pneumothorax is no longer visible. Unchanged cardiomediastinal contours. Atherosclerotic calcification of the aorta. Mild pulmonary vascular congestion. Impression: Mild pulmonary vascular congestion. A trace left apical pneumothorax is no longer seen.Unchanged opacity at the left base. -------- FINAL REPORT -------- Dictated By: Jossue Benietz Dictated Date: 08/21/2024 08:55 ET Assigned Physician: Jossue Benitez Reviewed and Electronically Signed By: Jossue Benitez Signed Date: 08/21/2024 08:56 ET Workstation ID: [id number] Transcribed By: Self Edit Transcribed Date: 08/21/2024 08:55 ET XR Chest 1 View Narrative: PROCEDURE: AP chest radiograph. HISTORY: chest pain, sob. COMPARISON: 08/20/2024. FINDINGS: New left basilar pigtail pleural drainage catheter. There is persistent opacity at the left base. This could represent a small pleural effusion and adjacent atelectasis. A curvilinear interface at the left lung apex suggests a trace pneumothorax. Unchanged cardiomediastinal contours. Impression: New left basilar pigtail pleural drainage catheter. Unchanged opacity at the left base,which could represent a combination of a pleural effusion and adjacent atelectasis and/or pneumonia. There is suggestion of a trace left apical pneumothorax. -------- FINAL REPORT -------- Dictated By: Jossue Benitez Dictated Date: 08/21/2024 08:53 ET Assigned Physician: Jossue Benitez Reviewed and Electronically Signed By: Jossue Benitez Signed Date: 08/21/2024 08:55 ET Workstation ID: [id number] Transcribed By: Self Edit Transcribed Date: 08/21/2024 08:53 ET ASSESSMENT & PLAN 74-year-old belarusian speaking female with PMH Hypertension, IBS, COPD/asthma, noninsulin dependent diabetes mellitus seen today with associate account director and family for complaint of chest pain and shortness ofbreath. Acute hypoxic respiratory failure secondary to loculated pleural effusion empyema Status post left chest tube placement on 08/20/[address] Ramirez Patient being followed by cardiothoracic and was taken for da Rod left total decortication along with pleural biopsy and bronchoscopy with aspiration, intercostal paravertebral nerve blocks. Patient tolerated the procedure well. Patient has 1 chest tube. Follow-up with cardiothoracic recommendations. COPD continue with her nebulizers and inhalers Type 2 diabetes not taking metformin continue on low-dose dose sliding scale Hypertension on antihypertensive medications which have been started IBS on Linzess nonformulary held while inpatient. Continue with imipramine Hyperlipidemia on statin DVT Prophylaxis SCD Full Code - Confirmed Disposition S/p OR Today * Jack Goins RN - 08/21/2024 1:28 AM EDT Goals: Identify possible barriers to meeting goals/advancing plan of care: . Stability of the patient: Moderately Stable - Low risk of patient condition declining or worsening End of Shift Summary: A&O belarusian speaking daughter at bedside. VSS. C/O 02/18 pain prn medication provided with some relief. Chest Tube intact and actively draining. Pt and daughter educated on NPO status. Call ferguson within reach, bed alarm active care ongoing. * Brigid Edwards PharmD - 08/20/2024 8:17 PM EDT Initial Pharmacy Vancomycin Dosing Consultation Consult ordering provider: ADRIAN Montgomery 74 y.o. female is being started on vancomycin for loculated pleural effusion / empyema for 7 days with a goal trough per Provider of 15 - 20 mg/L. Relevant data Height: 1.6 m (63 ) Weight: 88.5 kg (195 lb) Temp Readings from Last 3 Encounters: 08/20/24 36.8 ??C (98.2 ??F) (Oral) WBC Date Value Ref Range Status 08/20/2024 13.2 (H) 4.8 - 10.8 K/mcL Final Creatinine Date Value Ref Range Status 08/20/2024 0.61 0.50 - 1.10 mg/dL Final Estimated Creatinine Clearance: 84 mL/min (by C-G formula based on SCr of 0.61 mg/dL). mL/min Cockcroft-Gault Recent Results (from the past week) Blood culture Collection Time: 08/20/24 1:53 PM Specimen: Blood, Venous Result Value Ref Range Culture, Blood Culture in progress Blood culture Collection Time: 08/20/24 1:53 PM Specimen: Blood, Venous Result Value Ref Range Culture, Blood Culture in progress MRSA molecular study Collection Time: 08/20/24 3:24 PM Specimen: Nares; Swab Result Value Ref Range MRSA Screen PCR Not Detected Not Detected Culture body fluid with gram stain Collection Time: 08/20/24 6:03 PM Specimen: Pleural Cavity, Left; Pleural Fluid Result Value Ref Range Gram Stain Result Many Polymorphonuclear leukocytes (A) Gram Stain Result No Epithelial cells (A) Gram Stain Result Few Gram positive cocci in pairs and clusters (A) Patient is also receiving the following antibiotic(s): Piperacillin/Tazobactam Plan Patient has received a Initial vancomycin dose of 1250 mg on 08/20/24 at 15:17. Pharmacy will initiate a maintenance dose of 1250 mg every 12 hours starting on 08/21/24 at 03:00. Predicted peak is 29.4 and trough is 16.9 with AUC of 544. Per protocol, therapy is expected to last more than 5 days and therefore a trough indicated. A trough has been ordered for 08/22/24 at 02:00 prior to 4th dose due on 08/22/24 at 03:00. Therapy is planned to end on 08/27/24 at this time. Will continue to monitor and recommend changes as necessary. Brigid Edwards PharmD 08/20/24 8:13 PM EDT * Kady Santiago RN - 08/20/2024 5:02 PM EDT ED RN HANDOFF (All Guzman Below Must Be Completed) Reason/Diagnosis for Admission: Left sided pleural effusion. Type of Admission: [x] Medsurg, [] Telemetry Already in a Hospital Bed: [] Yes / [x] No Room Considerations/Precautions (ex: fever, diarrhea, or any infectious concerns): [] Yes / [x] No Finisher Special Stocks: [x] Yes / [] No If YES, Cardiac Rhythm: [x] NSR, [] SB, [] ST, [] A-FIB, [] A-Flutter, [] Pacemaker, [] 1st Degree HB, [] 2nd Degree HB, [] 3rd Degree HB Reason for Finisher Special Stocks: VS: Visit Vitals BP 128/80 (BP Location: Left arm, Patient Position: Sitting) Pulse 75 Temp 36.8 ??C (98.2 ??F) (Oral) Resp 25 Ht 1.6 m (63 ) Wt 88.5 kg (195 lb) SpO2 94% BMI 34.54 kg/m?? Smoking Status Never BSA 1.91 m?? Current Mental Status: A/O x [x]4, []3, []2, []1 Current Ambulation Status: unknown, she did not ambulate on my time. IV Access: [x] Yes / [] No Field IV present: [] Yes / [x] No Hx of Violence: [] Yes / [] No / [x] Unknown Fall Risk:[] Yes / [x] No Yellow Bracelet Applied [] Yes / [] No Yellow Socks Applied [] Yes / [] No Patient Belongings inventoried and BL completed: [x] Yes / [] No Patient belongings stored in the security closet: [] Yes (If Yes please supply Security bag #): [x] No Patient Medications stored in Pharmacy: [] Yes (If Yes please supply Medication Security bag #): [x] No ED Summary of Care: Currently has vanco running, on 2L nc, Primarily belarusian speaking. Submitted by and Phone Extension: [phone] * Pat Peraza RN - 08/20/2024 11:41 AM EDT Pt c/o sob and chest pain that started on august 06 Seen at [facility] 08/15/24 for pneumonia Sent by dr bonner * Sonya Omer, JOHN - 08/20/2024 11:39 AM EDT Since August 06 having left side chest pain, headaches, SOB and pain worse with deep breathing; sent in by road advisor office today after appointment * Yessy Cosme DO - 08/20/2024 11:37 AM EDT Emergency Medicine Note Patient Name: Evelyn Zamora Initial Evaluation: 08/20/2024 : 1950 Patient's PCP: Samaria Matos MD Emergency Physician: Yessy Cosme, History of Present Illness Chief Complaint: Chief Complaint Patient presents with Shortness of Breath SOB since August 06 but today went to pulmonary Dr and was sent here for ' liquid in my lungs, pain in my chest and SOB' Chest Pain HPI: This is a 74-year-old female of hypertension, IBS, asthma, COPD, diabetes, obesity presented to ER today for evaluation of left-sided chest pain that radiated to back. Patient stated that this has been going on since August 06 appears to been complain of shortness of breath as well. She was evaluated by road advisor who sent patient in for abnormal chest x-ray. However unable to specify whatthe finding was. Patient stated that she has left-sided chest pain that radiates to the back. She does complain of some shortness of breath as well. She has been placed on antibiotic with prednisone without any alleviation of this pain. Patient stated she was diagnosed with pneumonia on CT imaging. Patient has been complaining of fever for a week now. Denies any abdominal pain denies any nausea or vomiting. Denies any dysuria denies any hematuria. ROS: I have performed a ROS with the pertinent positives and negatives documented in the history ofpresent illness. Previous History History reviewed. No pertinent past medical history. History reviewed. No pertinent surgical history. Social History Tobacco Use Smoking status: Never Smokeless tobacco: Never Substance Use Topics Alcohol use: No Drug use: No No family history on file. is allergic to morphine. No current facility-administered medications on file prior to encounter. No current outpatient medications on file prior to encounter. Physical Exam ED Triage Vitals [08/20/24 1143] Temp Heart Rate Resp BP 36.5 ??C (97.7 ??F) 90 20 124/78 SpO2 Temp src Heart Rate Source Patient Position 95 % -- -- -- BP Location FiO2 (%) -- -- General: Appears anxious tearful Head: Normacephalic, atraumatic ENT: oral mucosa moist, neck supple, no tracheal deviation Cardiovascular: regular rate, regular rhythm, no murmurs, rubbing, gallops Respiratory: Diminished lung sounds bilaterally Gastrointestinal: Soft, non distended, non tender, non guarding Extremities: No limb pain or swelling, no calf tenderness Neurological: Awake and alert, no facial droop noted Skin: Warm and dry Psychiatric: Appropriate mood and thoughts Results Labs Reviewed LIPASE - Abnormal Result Value Lipase 98 (*) MAGNESIUM - Abnormal Magnesium 1.8 (*) CBC WITH AUTO DIFFERENTIAL - Abnormal WBC 13.2 (*) RBC 4.60 Hemoglobin 13.7 Hematocrit 41.9 MCV 91.9 MCH 30.0 MCHC 32.7 RDW 12.6 Platelets 323 MPV 11.5 (*) NRBC 0.0 NRBC Absolute 0.00 D-DIMER - Abnormal D-Dimer, Quant (D-DU) 516 (*) Narrative: D-Dimer <230 ng/mL (D-Dimer units) is the threshold for exclusion of DVT/PE. D-Dimer may be elevated in: Critically ill, severely infected, trauma patients, DIC, acute CVA, acute DE, unstable angina, AF, old age, , and smoking. D-Dimer may be decreased with: Initiation of heparin therapy and oral anticoagulants. MANUAL DIFFERENTIAL - INSTRUMENT DIFFERENTIAL - Abnormal Neutrophils % 68.0 Lymphocytes % 6.0 Reactive Lymphocyte 2.00 Monocytes % 5.0 Eosinophils % 20.0 Basophils % 0.0 Neutrophils Absolute Manual 8.98 (*) Lymphocytes Absolute 0.79 (*) Reactive Lymph Abs Manual 0.26 (*) Monocytes Absolute Manual 0.66 Eosinophils Absolute Manual 2.64 (*) Basophils Absolute Manual 0.00 Rbc Morphology Consistent with indices Platelet Morphology - WAM See Note (*) TROPONIN I HIGH SENSITIVITY - Normal High Sensitivity Troponin I 6 Narrative: High levels of biotin in samples may falsely decrease hsTroponin values. Use caution when interpreting hsTroponin results in patients taking biotin who exhibit renal impairment (eGFR <60) or in patients taking more than 20 mg/day of biotin. TROPONIN I HIGH SENSITIVITY - Normal High Sensitivity Troponin I 6 Narrative: High levels of biotin in samples may falsely decrease hsTroponin values. Use caution when interpreting hsTroponin results in patients taking biotin who exhibit renal impairment (eGFR <60) or in patients taking more than 20 mg/day of biotin. COMPREHENSIVE METABOLIC PANEL - Normal Sodium 137 Potassium 4.1 Chloride 105 CO2 26 Anion Gap 6 Glucose 88 BUN 12 Creatinine 0.61 eGFR 93 BUN/Creatinine Ratio 19.7 Calcium 10.1 AST (SGOT) 21 ALT (SGPT) 20 Alkaline Phosphatase 93 Total Protein 7.6 Albumin 3.6 Total Bilirubin 1.0 B-TYPE NATRIURETIC PEPTIDE - Normal BNP 4 LACTATE - Normal Lactate 0.9 CULTURE BLOOD Culture, Blood Culture in progress CULTURE BLOOD Culture, Blood Culture in progress MRSA MOLECULAR STUDY CBC AND DIFFERENTIAL Narrative: The following orders were created for panel order CBC and differential. Procedure Abnormality Status --------- ------ CBC auto differential[[id number]] Abnormal Final result Please view results for these tests on the individual orders. Abnormal Labs Reviewed LIPASE - Abnormal; Notable for the following components: Result Value Lipase 98 (*) All other components within normal limits MAGNESIUM - Abnormal; Notable for the following components: Magnesium 1.8 (*) All other components within normal limits CBC WITH AUTO DIFFERENTIAL - Abnormal; Notable for the following components: WBC 13.2 (*) MPV 11.5 (*) All other components within normal limits D-DIMER - Abnormal; Notable for the following components: D-Dimer, Quant (D-DU) 516 (*) All other components within normal limits Narrative: D-Dimer <230 ng/mL (D-Dimer units) is the threshold for exclusion of DVT/PE. D-Dimer may be elevated in: Critically ill, severely infected, trauma patients, DIC, acute CVA, acute DE, unstable angina, AF, old age, , and smoking. D-Dimer may be decreased with: Initiation of heparin therapy and oral anticoagulants. MANUAL DIFFERENTIAL - INSTRUMENT DIFFERENTIAL - Abnormal; Notable for the following components: Neutrophils Absolute Manual 8.98 (*) Lymphocytes Absolute 0.79 (*) Reactive Lymph Abs Manual 0.26 (*) Eosinophils Absolute Manual 2.64 (*) Platelet Morphology - WAM See Note (*) All other components within normal limits CT Chest w Contrast Final Result Small loculated left pleural effusion with associated atelectasis at the left lung base. Fluid within the esophagus places the patient at risk for aspiration. -------- FINAL REPORT -------- Dictated By: Zulay Reed Dictated Date: 08/20/2024 14:35 ET Assigned Physician: Zulay Reed Reviewed and Electronically Signed By: Zulay Reed Signed Date: 08/20/2024 14:50 ET Workstation ID: [id number] Transcribed By: Self Edit Transcribed Date: 08/20/2024 14:35 ET XR Chest 1 View Final Result FINDINGS/IMPRESSION: Left basilar consolidation and probable small effusion. Right lung is clear. No congestive heart failure. -------- FINAL REPORT -------- Dictated By: Zulay Reed Dictated Date: 08/20/2024 13:07 ET Assigned Physician: Zulay Reed Reviewed and Electronically Signed By: Zulay Reed Signed Date: 08/20/2024 13:08 ET Workstation ID: [id number] Transcribed By: Self Edit Transcribed Date: 08/20/2024 13:07 ET I have discussed the incidental/abnormal imaging and/or lab abnormalities with the patient and haveinstructed them the need for further evaluation and workup with their primary care doctor. I have provided the patient with a paper copy of the abnormality. The laboratory results, imaging results and other diagnostic exam results were reviewed in the EMR. EKG Interpretation Critical Care Time None ? Medical Decision Making Medications vancomycin (VANCOCIN) IVPB 1,250 mg in 0.9 % sodium chloride 250 mL - CNR (1,250 mg intravenous NewBag 08/20/24 1517) famotidine (PF) (PEPCID) injection 20 mg (has no administration in time range) ketorolac (TORADOL) injection 15 mg (15 mg intravenous Given 08/20/24 1259) acetaminophen (TYLENOL) tablet 1,000 mg (1,000 mg oral Given 08/20/24 1257) morphine injection 4 mg (4 mg intravenous Given 08/20/24 1259) piperacillin-tazobactam (ZOSYN) 4.5 g in sodium chloride 0.9 % 100 mL IVPB (0 g intravenous Stopped08/20/24 1518) ondansetron (PF) (ZOFRAN) injection 4 mg (4 mg intravenous Given 08/20/24 1318) HYDROmorphone (PF) injection 0.5 mg (0.5 mg intravenous Given 08/20/24 1339) sodium chloride 0.9 % flush 10 mL (10 mL intravenous Given 08/20/24 1407) iopamidoL (ISOVUE-370) 370 mg iodine /mL (76 %) injection 90 mL (90 mL intravenous Given 08/20/24 1407) ED Course as of 08/20/24 1550 FriAug 20, 2024 1308 This a 74-year-old female history of hypertension, IBS, asthma, COPD, diabetes, obesity presented to the ER today for evaluation of left-sided chest pain that radiates to the back. Will repeat a chest x-ray here. I did talk to Dr. Bonner the road advisor. He shared that he was concerned on his CAT scan imaging at [place] that there was a loculated effusion. Patient has taken antibiotic without any alleviation of this effusion. He is worried that this may be infectious in nature. He has send patient hereto [facility] for further evaluation as we do have thoracic surgery capability here. He stated that patient is in pain as well. Will obtain sepsis workup for patient including blood culture lactate CBC CMP. With the loculated effusion patient may have an empyema. Will start patient on antibiotics at this time CAT scan be ordered for further evaluation of this left pleural effusion. Morphine will be given for pain. Toradol and Tylenol be given for pain as well. [TC] [address] imaging did show some leukocytosis 13.2. Patient CAT scan does show left-sided loculated pleural effusion. Thoracic surgery team has been consulted for this loculated pleural effusion. Patient pain appears to be improved after IV Dilaudid. Patient be admitted to the hospital for respiratory failure secondary to loculated pleural effusionon the left. She is noted be hypoxic on room air at 89%. Nasal cannula initiated for the patient. [TC] ED Course User Index [TC] Yessy Cosme, Clinical Impressions as of 08/20/24 1550 Loculated pleural effusion Respiratory failure, unspecified chronicity, unspecified whether with hypoxia or hypercapnia (CMS/HCC V24, CMS/HCC V28) Procedures Procedures Diagnosis 1. Loculated pleural effusion 2. Respiratory failure, unspecified chronicity, unspecified whether with hypoxia or hypercapnia (CMS/HCC V24, CMS/HCC V28) Disposition Admit to Inpatient ED Prescriptions None Physician Attestation Yessy Cosme, DO 08/20/24 1151 Yessy Cosme, DO 08/20/24 1308 Yessy Uche Cosme DO 08/20/24 1550 documented in this encounter Procedure Notes * Geraldo Gomez MD - 08/21/2024 10:33 AM EDT Date: 08/21/2024 Preoperative diagnosis: Left empyema Postoperative diagnosis: Left empyema and pleural plaques Operation: Da Rod left total decortication, pleural biopsy, bronchoscopy with aspiration, intercostal paravertebral nerve blocks. Surgeon:Geraldo Gomez MD Asst.: Fabi Andrews PA-C Anesthesia: Gen. Specimens: Left pleural rind, pleural fluid to cytology/pathology/microbiology; separate pleural plaque to pathology EBL: 20 cc Indications for the operation: 74-year-old woman who presented initially about a week ago to [facility] with shortness of breath and left-sided chest pain. She was treated for pneumonia with parapneumonic effusion with antibiotics however had persistent pain and nightly fevers and chills presented to her road advisor who sent her to the [facility] emergency department. CT scan of the chest done here showed a moderate-sized loculated pleural effusion. A pigtail catheter was placed on dayof arrival with only 400 cc of cloudy fluid with gram-positive's. Given her ongoing pain and the character of the fluid/low volume of fluid evacuated with the pigtail we discussed a decortication with her and her family which they understood. The patient understood the risks benefits and alternatives of the proposed operation and agreed to proceed. Operative findings: The pediatric bronchoscope was used and confirmed placement of the double-lumenendotracheal tube. A bronchoscopy was done down to the segmental level and no endobronchial lesionswere noted. On VATS exploration 100 cc of kaylee-colored fluid evacuated. There were adhesions and a peel on thelower lobe of the lung predominantly posteriorly in the sulcus. There was what appeared to be a broad pleural plaques separate from this process which was biopsied separately. We also did appreciate a small diaphragmatic hernia correlating with the CT scan. Patient tolerated the procedure well. Operation in detail: The patient was brought to the operating room, placed supine on the operating room table, anesthesia monitoring devices were placed, and the patient was intubated with a double-lumen endotracheal tube. The pediatric bronchoscope was used to confirm placement of the double-lumentube and once in position a bronchoscopy was done(findings above). The patient was then turned on their right side and the left chest was widely prepped and draped inthe standard sterile fashion. A timeout was performed confirming the correct patient and procedure. After injection of local anesthetic, an 8 mm incision was made over the seventh intercostal space anterior axillary line and the chest was entered without difficulty. A robotic camera port was inserted into the chest and the robotic camera was inserted and the chest was explored (C findings above).The bedside observation assistant controlled the camera and placed several of the ports during this portion of the operation. CO2 insufflation was established and the camera was directed posteriorly and inferiorly. With the camera directed posteriorly by the bedside observation assistant, an 8 mm incision was made 20 cm posterior to the camera port and at the level of the mid lower lobe of the lung an 8 mm robotic port wasplaced under direct vision after injection of local anesthetic. 10 cm posterior to the camera port a 1 cm incision was made and after local anesthetic was given a robotic stapling port was placed under direct vision without difficulty. With the camera now directed anteriorly, a 1 cm incision was made by the bedside observation assistant 10 cm from the camera port and a robotic stapling port was placed under direct vision after injection of local anesthetic. Finally, between the anterior port and the camera port a 1 cm incision was made and a 12 mm air seal port was placed into the chest under direct vision just above the diaphragm. With all ports now in place, the robot was then docked to to the trochars and I began the operation sitting down at the console. Intercostal paravertebral nerve blocks were done under vision with quarter percent Marcaine with epinephrine mixed with Depo-Medrol. From this point forward all instrument transfers, suctioning, and gauze cigars were inserted and removed by the bedside observation assistant. All specimens were also removed by the bedside observation assistant. We began the operation by exploring the chest. Findings listed above. First, the robotic sucker wasused to evacuate the fluid first. The adhesions were then taken down with bipolar electrocautery starting with the lateral chest wall moving to the anterior mediastinum, apex, posterior mediastinum and finally the diaphragm. With this, the lung was completely freed up and decorticated. We then using the Pulsavac device irrigated the chest cavity focused on the sulcus posteriorly with 3 L of saline mixed with vancomycin. hemostasis was then assured and the robot was undocked. A 28 Malagasy straight chest tube was placed and directed to lie posteriorly and up towards the apex tunneled between 2 of the incisions. This was done under direct vision and the chest tube was secured in place. Lung was brought up under direct vision and under water, no air leaks were noted in the lung easily approximated the chest wall. All ports were then removed, and the remaining incisions were closed with a deep 0 Vicryl suture followed by running 3-0 Vicryl suture and Dermabond glue. The chest tube was dressing connected to a Pleur- evac. The patient was extubated in the operating room brought to the PACU in stable condition. * Jose Cruz Ramirez MD - 08/20/2024 6:04 PM EDT Interventional Radiology Brief Postprocedure Note Attending: Mariano Coffey MD Pre-Procedure Diagnosis: The primary encounter diagnosis was Loculated pleural effusion. A diagnosis of Respiratory failure, unspecified chronicity, unspecified whether with hypoxia or hypercapnia (CMS/HCC V24, CMS/HCC V28) was also pertinent to this visit. Post-Procedure Diagnosis: Same as Pre-Procedure Diagnosis Description of procedure: left chest tube placement Performing Provider: Jose Cruz Ramirez MD Staff Role Jana Dailey Facility Engineer Jose Cruz Ramirez MD Radiologist Dudley Rosales RN CV Staff Maddy Dubon Facility Engineer Anesthesia: Conscious Sedation Significant Findings: None Complications: None Estimated Blood Loss: none Medications (Filter: Administrations occurring from 1652 to 1757 on 08/20/24) As of 08/20/241756 sodium chloride 0.9 % infusion (mL/hr) Total volume: Not documented* *Total volume has not been documented. View each administration to see the amount administered. Date/Time Rate/Dose/Volume Action 08/20/24 1700 100 mL/hr New Bag midazolam (VERSED) injection (mg) Total dose: 2 mg Date/Time Rate/Dose/Volume Action 08/20/24 1713 1 mg Given 1729 1 mg Given fentaNYL (PF) (SUBLIMAZE) injection (mcg) Total dose: 50 mcg Date/Time Rate/Dose/Volume Action 08/20/24 1728 50 mcg Given lidocaine with sodium bicarbonate 1 % injection (mL) Total volume: 10 mL Date/Time Rate/Dose/Volume Action 08/20/24 1730 10 mL Given Final Radiology report with images in PACS to follow. The patient tolerated the procedure well without incident or complication and is in stable condition. * Jose Cruz Ramirez MD - 08/20/2024 6:03 PM EDT Interventional Radiology Preprocedure Note Indication for procedure: The primary encounter diagnosis was Loculated pleural effusion. A diagnosis of Respiratory failure, unspecified chronicity, unspecified whether with hypoxia or hypercapnia (CMS/HCC V24, CMS/HCC V28) was also pertinent to this visit. Relevant review of systems: NA Relevant Labs: Lab Results Component Value Date CREATININE 0.61 08/20/2024 EGFR 93 08/20/2024 Directed physical examination: Decreased breath sounds left lung base. Heart and lungs otherwise wnl Mallampati: II (hard and soft palate, upper portion of tonsils anduvula visible) ASA Score: ASA 3 - Patient with moderate systemic disease with functional limitations Immediate reassessment prior to sedation: Patient's status reviewed and vital signs assessed; acceptable to perform procedure and proceed to administer sedation as planned. documented in this encounter Consult Notes * Pilar Tapia MD - 08/26/2024 4:02 PM EDT Images from the original note were not included. Consults History Of Present Illness (includes Chief Complaint): Evelyn Zamora is a 74 y.o. female presenting with past med history of asthma, OTILIO on CPAP. The patient normally follows with Dr. Holm at [facility], history today was obtained with a revenue cycle manager. She has been complaining of cough, shortness of breath and chest pain. The patient was treated with Augmentin in the outpatient for over 10 days but she still has chest pain. She was told to come to the ER, in the ER the patient had chest x-ray and CT scan which shows loculated left pleural effusion. The patient had decortication by thoracic surgery, initial smear shows gram-positive in chains and cocci but culture could not be done. The patient is on antibiotics with Zosyn and is clinically better, there is been no fever since she been here and leukocytosis has resolved. Her chest tube was discontinue a few days ago. She still has some left-sided pain but better compare to admit, the repeat chest x-ray did not show significant reaccumulation of left-sided effusion. Past Medical History: She has no past medical history on file. Surgical History: She has no past surgical history on file. Family History: family history is not on file. Social History: She reports that she has never smoked. She has never used smokeless tobacco. She reports that she does not drink alcohol and does not use drugs. Allergies: Morphine Home Medications: 10 mg, oral, Daily Last Action: Given, 10 mg at 08/26 852 calcium carbonate (TUMS) chewable tablet 1,000 mg 1,000 mg, oral, Once Last Action: Ordered dilTIAZem CD (CARDIZEM CD) 24 hr capsule 300 mg 300 mg, oral, Daily Last Action: Given, 300 mg at 08/27 851 docusate sodium (COLACE) capsule 100 mg 100 mg, oral, BID Last Action: Given, 100 mg at 08/26 852 heparin (UFH) injection 5,000 Units 5,000 Units, subQ, q12h URIAH Last Action: Given, 5,000 Units at 08/26 852 hydroCHLOROthiazide (MICROZIDE) capsule 12.5 mg 12.5 mg, oral, Daily Last Action: Given, 12.5 mg at 08/27 851 imipramine (TOFRANIL) tablet 25 mg 25 mg, oral, BID Last Action: Given, 25 mg at 08/27 851 insulin lispro injection 1-6 Units 1-6 Units, subQ, TID AC Last Action: Given, 3 Units at 08/25 1655 ipratropium-albuteroL (DUONEB) 0.5-2.5 mg/3 mL nebulizer solution 3 mL 3 mL, nebu, 4x daily Last Action: Given, 3 mL at 08/26 1115 lidocaine 4 % patch 1 patch 1 patch, TP, Daily Last Action: Patch Applied, 1 patch at 08/26 08 lisinopriL (PRINIVIL,ZESTRIL) tablet 40 mg 40 mg, oral, Daily Last Action: Given, 40 mg at 08/26 08 loratadine (CLARITIN) tablet 10 mg 10 mg, oral, Daily Last Action: Given, 10 mg at 08/26 08 magnesium oxide (MAG-OX) tablet 400 mg 400 mg, oral, Nightly Last Action: Given, 400 mg at 08/25 211 pantoprazole (PROTONIX) EC tablet 40 mg 40 mg, oral, q AM AC Last Action: Given, 40 mg at 08/26 0658 piperacillin-tazobactam (ZOSYN) 4.5 g in sodium chloride 0.9 % 100 mL IVPB 4.5 g, IV, q8h Last Action: New Bag, 4.5 g at 08/26 1448 polyethylene glycol (MIRALAX) packet 17 g 17 g, oral, Nightly Last Action: Given, 17 g at 08/23 213 roflumilast (DALIRESP) tablet 500 mcg 500 mcg, oral, Daily Last Action: Given, 500 mcg at 08/26 08 senna (SENOKOT) tablet 17.2 mg 2 tablet, oral, Nightly Last Action: Given, 17.2 mg at 08/25 2116 sodium chloride 0.9 % flush 10 mL (And Linked Group #1) 10 mL, IV, BID Last Action: Given, 10 mL at 08/26 0854 Review of Systems Constitutional: Positive for chills and fatigue. Negative for fever. Respiratory: Positive for cough and shortness of breath. Negative for wheezing and stridor. Cardiovascular: Positive for chest pain. Musculoskeletal: Negative for joint swelling. Neurological: Positive for weakness. Last Recorded Vitals: Blood pressure 125/73, pulse 72, temperature 36.4 ??C (97.6 ??F), temperature source Temporal, resp. rate 17, height 1.6 m (63 ), weight 88.5 kg (195 lb), SpO2 93%. Physical Exam HENT: Head: Normocephalic. Mouth/Throat: Mouth: Mucous membranes are moist. Eyes: Pupils: Pupils are equal, round, and reactive to light. Cardiovascular: Rate and Rhythm: Normal rate. Pulmonary: Breath sounds: No wheezing, rhonchi or rales. Comments: Breath sounds slightly diminished at left bases, chest wall tender to percussion on left base Abdominal: General: Abdomen is flat. Musculoskeletal: General: Normal range of motion. Cervical back: Normal range of motion. Neurological: General: No focal deficit present. Mental Status: She is alert. Psychiatric: Mood and Affect: Mood normal. Relevant Results: 08/23 Auto WBC 18.4 High 10.9 High -- 10.9 High Hemoglobin 11.5 11.1 Low -- 11.1 Low Hematocrit PFA 35.8 34.0 Low -- 34.0 Low Platelets 297 268 -- 268 08/22 Sodium 139 141 141 Potassium 4.7 3.9 3.9 Chloride 107 110 112 High Carbon Dioxide POCT 30 26 25 BUN, Bld 13 25 21 Creatinine 0.74 1.27 High 0.86 08/20/2024 1803 08/23/2024 1054 Culture body fluid with gram stain [[id number]] (Abnormal) Pleural Fluid from Pleural Cavity, Left Final result Component Value Fluid Culture No growth at 3 days Gram Stain Result Many Polymorphonuclear leukocytes Abnormal Gram Stain Result No Epithelial cells Abnormal Gram Stain Result Few Gram positive cocci in pairs and clusters Abnormal Assessment/Plan Principal Problem: Loculated pleural effusion Empyema COPD/OTILIO - Patient's chest CT scan, chest x-ray and pleural fluid analysis reviewed by me. This is an empyema given the history and the Gram stain of the pleural fluid. The patient had decortication she is currently gone over 2 weeks of antibiotics which is outpatient Augmentin, Zosyn currently. She is now c linically better with O2 sat 96% on room air. She has no leukocytosis chest x- ray showed no reaccumulation the patient is close to being discharged, I will recommend the patient should be on at least2 more weeks of antibiotics can do Zosyn upon discharge. Patient need to follow-up with Dr. Ha lau after d/c. I discussed this case with hospitalist * ADRIAN Saldaña - 08/20/2024 4:33 PM EDT Images from the original note were not included. Thoracic Surgery New Patient Consultation Patient Name: Evelyn Zamora : 1950 Date of Visit: 08/20/24 Reason for Consult Loculated pleural effusion Chief Complaint Left-sided chest pain and shortness of breath History of Present Illness Ms. Zamora is a 74 y.o. female who we are being consulted for: Loculated pleural effusion. She has a history of hypertension, IBS, asthma, COPD, diabetes, obesity who presented to the emergency department sent by her road advisor Dr. Bonner at [facility] for evaluation of left-sided chest pain that radiates to her back. She had a chest CT scan performed approximately 1 week ago at [facility] that did show she had a loculated pleural effusion. At that time [facility] did not feel the need to treat for reasons that are unclear and sent her home with anti biotics. Patient states that this pain has been ongoing since August 06 and that she has been finding it difficult to taking deep breaths. She also states that she has been having nightly fevers and sweats. Upon arrival to emergency department her labs do reveal leukocytosis with WBC 13.2 with a shift to the left, she is currently afebrile with oxygen saturations 93% on 2 L nasal cannula. She is rating her pain as a 8 out of 10 which is causing her some nausea denies any vomiting as of yet. He has been n.p.o. all day and does have a moderate amount of increased WOB with expiratory wheezes heard throughout. A chest CT scan was performed which shows a small loculated left pleural effusion. History reviewed. No pertinent past medical history. History reviewed. No pertinent surgical history. Allergies Allergen Reactions Morphine Current Facility-Administered Medications Medication Dose Route Frequency Provider Last Rate Last Admin acetaminophen (TYLENOL) tablet 650 mg 650 mg oral q6h PRN Mariano Coffey MD albuterol 2.5 mg /3 mL (0.083 %) nebulizer solution 2.5 mg 2.5 mg nebulization q4h PRN Mariano Coffey MD ipratropium-albuteroL (DUONEB) 0.5-2.5 mg/3 mL nebulizer solution 3 mL 3 mL nebulization 4x daily Mariano Coffey MD magnesium hydroxide (MILK OF MAGNESIA) 400 mg/5 mL suspension 30 mL 30 mL oral Daily PRN Mariano Coffey MD naloxone (NARCAN) injection 0.04 mg 0.04 mg intravenous PRN Mariano Coffey MD ondansetron (PF) (ZOFRAN) injection 4 mg 4 mg intravenous q6h PRN Mariano Coffey MD oxyCODONE (ROXICODONE) immediate release tablet 5 mg 5 mg oral q4h PRN Mariano Coffey MD polyethylene glycol (MIRALAX) packet 17 g 17 g oral Nightly Mariano Coffey MD sodium chloride 0.9 % flush 10 mL 10 mL intravenous BID Mariano Coffey MD And sodium chloride 0.9 % flush 10 mL 10 mL intravenous PRN Mariano Coffey MD vancomycin (VANCOCIN) IVPB 1,250 mg in 0.9 % sodium chloride 250 mL - CNR 15 mg/kg intravenous OnceTing Ho Priyank Cosme DO 166.7 mL/hr at 08/20/24 1517 1,250 mg at 08/20/24 1517 Current Outpatient Medications Medication Sig Dispense Refill amoxicillin-clavulanate (AUGMENTIN) 875-125 mg per tablet Take 1 tablet by mouth 2 times daily. aspirin 81 mg chewable tablet Chew 1 tablet (81 mg total) daily. budesonide-formoteroL (SYMBICORT) 160-4.5 mcg/actuation inhaler Inhale 2 puffs by mouth every 12 hours. carbidopa-levodopa (SINEMET) 25-100 mg per tablet Take 1 tablet by mouth 2 times daily. dilTIAZem CD (CARDIZEM CD) 300 mg 24 hr capsule Take 1 capsule (300 mg total) by mouth daily. Dupixent Pen 300 mg/2 mL pen Inject 2 mL (300 mg total) under the skin every 14 days. hydroCHLOROthiazide 12.5 mg tablet Take 1 tablet (12.5 mg total) by mouth daily. ibuprofen (ADVIL,MOTRIN) 800 mg tablet Take 1 tablet (800 mg total) by mouth every 6 hours as needed. lisinopril (PRINIVIL,ZESTRIL) 40 mg tablet Take 1 tablet (40 mg total) by mouth 1 (one) time each day. magnesium oxide (MAG-OX) 400 mg (241.3 elemental magnesium) tablet Take 1 tablet (400 mg total) by mouth at bedtime. metFORMIN (GLUCOPHAGE) 500 mg tablet Take 1 tablet (500 mg total) by mouth 1 (one) time each day with breakfast. omeprazole (PriLOSEC) [address] capsule Take 1 capsule (20 mg total) by mouth 1 (one) time each day. ProAir RespiClick 90 mcg/actuation aerosol powdr breath activated Inhale 2 puffs by mouth. Inhale 2puffs by mouth every 4-6 hours as needed for shortness of breath or wheezing albuterol 2.5 mg /3 mL (0.083 %) nebulizer solution Take 3 mL (2.5 mg total) by nebulization every 4 (four) hours if needed for wheezing or shortness of breath. atorvastatin (LIPITOR) 10 mg tablet Take 1 tablet (10 mg total) by mouth 1 (one) time each day. cetirizine (ZyrTEC) 10 mg tablet Take 1 tablet (10 mg total) by mouth 1 (one) time each day. imipramine (TOFRANIL) 50 mg tablet Take 0.5 tablets (25 mg total) by mouth 2 (two) times a day. Linzess 290 mcg capsule Take 1 capsule (290 mcg total) by mouth 1 (one) time each day before breakfast. roflumilast (DALIRESP) 500 mcg tablet Take 1 tablet (500 mcg total) by mouth 1 (one) time each day. Social History Socioeconomic History Marital status: Single Spouse name: Not on file Number of children: Not on file Years of education: Not on file Highest education level: Not on file Occupational History Not on file Tobacco Use Smoking status: Never Smokeless tobacco: Never Substance and Sexual Activity Alcohol use: No Drug use: No Sexual activity: Not on file Other Topics Concern Not on file Social History Narrative Not on file No family history on file. Review of Systems Physical Exam Vitals: 08/20/24 1143 08/20/24 1232 08/20/24 1234 BP: 124/78 128/80 BP Location: Left arm Patient Position: Sitting Pulse: 90 86 Resp: 20 20 Temp: 36.5 ??C (97.7 ??F) 36.8 ??C (98.2 ??F) TempSrc: Oral SpO2: 95% 93% 93% Weight: 88.5 kg (195 lb) Height: 1.6 m (63 ) General: Patient is sitting visibly in pain and appears sickly Head: Normocephalic, atraumatic, symmetric Eyes: Sclera anicteric, eyelids without edema or erythema, +EOMS intact ENT: Oral mucosa and tongue are moist without lesions or exudates Neck: Soft, supple, symmetric, trachea midline, no crepitus, no mass visualized or palpated Cardiovascular: Regular rate and rhythm, no murmur/rubs/gallops, BUE and BLE without edema, no calftenderness bilaterally Respiratory: Expiratory wheezes heard throughout, No obvious chest wall abnormality or deformity Gastrointestinal: Soft, non-tender, non-distended, +normoactive bowel sounds. Lymphatic: no cervical, supraclavicular, infraclavicular, or other lymphadenopathy noted Neurological: Alert and oriented x 3, neurologic exam is grossly normal Psychiatric: No agitation, appropriate affect Diagnostics Lab Results Component Value Date WBC 13.2 (H) 08/20/2024 HGB 13.7 08/20/2024 HCT 41.9 08/20/2024 PLT 323 08/20/2024 Lab Results Component Value Date NA 137 08/20/2024 K 4.1 08/20/2024 CL 105 08/20/2024 CO2 26 08/20/2024 ANIONGAP 6 08/20/2024 BUN 12 08/20/2024 CREATININE 0.61 08/20/2024 GLUCOSE 88 08/20/2024 EGFR 93 08/20/2024 CALCIUM 10.1 08/20/2024 No results found for: PT , INR , APTT Microbiology Recent Results (from the past week) Blood culture Collection Time: 08/20/24 1:53 PM Specimen: Blood, Venous Result Value Ref Range Culture, Blood Culture in progress Blood culture Collection Time: 08/20/24 1:53 PM Specimen: Blood, Venous Result Value Ref Range Culture, Blood Culture in progress Pathology Radiology CT Chest w Contrast Narrative: CT CHEST WITH CONTRAST INDICATION: loculated effusion TECHNIQUE: Chest CT with intravenous administration of 90cc ISOVUE 370. Multi planar reformats werecreated and interpreted. The examination was performed utilizing dose reduction techniques. DLP: 857 mGy/cm COMPARISON: No priors available. FINDINGS: LUNGS/PLEURA: Small loculated left pleural effusion with associated atelectasis though underlying pneumonia not excluded. MEDIASTINUM: There is a small hiatal hernia with fluid level of the thoracic inlet which places thepatient at risk for aspiration. Tiny thyroid nodule. Coronary artery calcifications and mild cardiomegaly. CHEST WALL: No axillary lymphadenopathy or superficial hematoma. UPPER ABDOMEN:Cholecystectomy. BONES: No acute fracture. Scattered degenerative changes seen throughout the bones. Impression: Small loculated left pleural effusion with associated atelectasis at the left lung base. Fluid within the esophagus places the patient at risk for aspiration. -------- FINAL REPORT -------- Dictated By: Zulay Reed Dictated Date: 08/20/2024 14:35 ET Assigned Physician: Zulay Reed Reviewed and Electronically Signed By: Zulay Reed Signed Date: 08/20/2024 14:50 ET Workstation ID: [id number] Transcribed By: Self Edit Transcribed Date: 08/20/2024 14:35 ET XR Chest 1 View Narrative: XR CHEST 1 VIEW INDICATION: chest pain TECHNIQUE: XR CHEST 1 VIEW COMPARISON: No priors available. Impression: FINDINGS/IMPRESSION: Left basilar consolidation and probable small effusion. Right lungis clear. No congestive heart failure. -------- FINAL REPORT -------- Dictated By: Zulay Reed Dictated Date: 08/20/2024 13:07 ET Assigned Physician: Zulay Reed Reviewed and Electronically Signed By: Zulay Reed Signed Date: 08/20/2024 13:08 ET Workstation ID: [id number] Transcribed By: Self Edit Transcribed Date: 08/20/2024 13:07 ET Results for orders placed during the hospital encounter of 08/20/24 CT Chest w Contrast Narrative CT CHEST WITH CONTRAST INDICATION: loculated effusion TECHNIQUE: Chest CT with intravenous administration of 90cc ISOVUE 370. Multi planar reformats werecreated and interpreted. The examination was performed utilizing dose reduction techniques. DLP: 857 mGy/cm COMPARISON: No priors available. FINDINGS: LUNGS/PLEURA: Small loculated left pleural effusion with associated atelectasis though underlying pneumonia not excluded. MEDIASTINUM: There is a small hiatal hernia with fluid level of the thoracic inlet which places thepatient at risk for aspiration. Tiny thyroid nodule. Coronary artery calcifications and mild cardiomegaly. CHEST WALL: No axillary lymphadenopathy or superficial hematoma. UPPER ABDOMEN:Cholecystectomy. BONES: No acute fracture. Scattered degenerative changes seen throughout the bones. Impression Small loculated left pleural effusion with associated atelectasis at the left lung base. Fluid within the esophagus places the patient at risk for aspiration. -------- FINAL REPORT -------- Dictated By: Zulay Reed Dictated Date: 08/20/2024 14:35 ET Assigned Physician: Zulay Reed Reviewed and Electronically Signed By: Zulay Reed Signed Date: 08/20/2024 14:50 ET Workstation ID: [id number] Transcribed By: Self Edit Transcribed Date: 08/20/2024 14:35 ET Assessment and Plan 74-year-old female who presents to [facility] with a left-sided loculated pleural effusion with high concern for possible empyema. She was admitted to hospitalist team and was placed on Zosyn and vancomycin for broad-spectrum coverage. Interventional radiology was contacted and graciously placing a left-sided pigtail catheter into left loculated pleural effusion. Will obtain pleural fluid studies and culture. Once chest tube is placed he should be set to -20 low wall suction remain on -20 low wall suction throughout today and overnight. I have made patient n.p.o. for tonight at midnight just in case pigtail catheter drainage is unsuccessful and patient requires left-sided VATS for tomorrow a.m. Typed and screened. Patient is not on any home anticoagulation. Follow-up with chest x-ray tomorrow a.m. ADRIAN Saldaña [facility] Thoracic Surgery [address] [place] [address], [address] [place] [phone] documented in this encounter Plan of Treatment Upcoming Encounters Date Type Department Care Team ([facility] st Contact Info) Description 09/10/2024 2:00 PM EDT Office Visit Thoracic Surgery - [address] [place] [address] [place] [id number] Jose E Garcia PA [address] [place] [address] Pending Results Name Type Priority Associated Diagnoses Date /Time Culture, afb and smear with reflex to identification and susceptibility Microbiology Routine Empyema ([facility] V24, [facility] V28) 08/21/2024 2:34 PM EDT Scheduled Referrals Name Type Priority Associated Diagnoses Order Schedule Ambulatory referral to Home Health Outpatient Referral Routine Empyema ([facility] V24, [facility] V28) 1 Occurrences starting 08/27/2024 until 08/27/2025 documented as of this encounter Procedures Procedure Name Priority Date/Time Associated Diagnosis Comments POCT GLUCOSE BLOOD Routine 08/27/2024 11 :23 AM EDT POCT GLUCOSE BLOOD Routine 08/27/2024 7: 43 AM EDT SST - GOLD Routine 08/27/2024 6:27 AM EDT EXTRA TUBES Routine 08/27/2024 6:27 AM EDT COMPLETE BLOOD COUNT Timed 08/27/2024 6:27 AM EDT XR CHEST 1 VIEW Routine 08/27/2024 5:36 AM EDT POCT GLUCOSE BLOOD Routine 08/26/2024 7: 28 PM EDT POCT GLUCOSE BLOOD Routine 08/26/2024 4: 58 PM EDT ECG 12-LEAD STAT 08/26/2024 1:10 PM EDT POCT GLUCOSE BLOOD Routine 08/26/2024 11 :05 AM EDT XR CHEST 2 VIEWS STAT 08/26/2024 9:56 AM EDT PEP THERAPY Routine 08/26/2024 8:02 AM EDT POCT GLUCOSE BLOOD Routine 08/26/2024 7: 57 AM EDT XR CHEST 1 VIEW Routine 08/26/2024 3:56 AM EDT POCT GLUCOSE BLOOD Routine 08/25/2024 8: 39 PM EDT POCT GLUCOSE BLOOD Routine 08/25/2024 4: 28 PM EDT POCT GLUCOSE BLOOD Routine 08/25/2024 11 :28 AM EDT PEP THERAPY Routine 08/25/2024 8:01 AM EDT POCT GLUCOSE BLOOD Routine 08/25/2024 7: 50 AM EDT XR CHEST 1 VIEW Routine 08/25/2024 4:39 AM EDT POCT GLUCOSE BLOOD Routine 08/24/2024 9: 49 PM EDT POCT GLUCOSE BLOOD Routine 08/24/2024 3: 12 PM EDT POCT GLUCOSE BLOOD Routine 08/24/2024 12 :00 PM EDT PEP THERAPY Routine 08/24/2024 8:02 AM EDT POCT GLUCOSE BLOOD Routine 08/24/2024 7: 42 AM EDT CBC WITH AUTO DIFFERENTIAL Routine 08/24/2024 6:51 AM EDT COMPLETE BLOOD COUNT Timed 08/24/2024 6:51 AM EDT CBC AND DIFFERENTIAL Routine 08/24/2024 6:51 AM EDT MAGNESIUM Routine 08/24/2024 6:51 AM EDT COMPREHENSIVE METABOLIC PANEL Routine 08/24/2024 6:51 AM EDT XR CHEST 1 VIEW Routine 08/24/2024 4:26 AM EDT POCT GLUCOSE BLOOD Routine 08/23/2024 8: 29 PM EDT POCT GLUCOSE BLOOD Routine 08/23/2024 3: 59 PM EDT ECG 12-LEAD Routine 08/23/2024 1:18 PM EDT POCT GLUCOSE BLOOD Routine 08/23/2024 11 :20 AM EDT PEP THERAPY Routine 08/23/2024 8:01 AM EDT POCT GLUCOSE BLOOD Routine 08/23/2024 7: 58 AM EDT CBC WITH AUTO DIFFERENTIAL Routine 08/23/2024 5:55 AM EDT CBC AND DIFFERENTIAL Routine 08/23/2024 5:55 AM EDT BASIC METABOLIC PANEL Routine 08/23/2024 5:55 AM EDT XR CHEST 1 VIEW Routine 08/23/2024 4:27 AM EDT POCT GLUCOSE BLOOD Routine 08/22/2024 7: 24 PM EDT POCT GLUCOSE BLOOD Routine 08/22/2024 3: 10 PM EDT POCT GLUCOSE BLOOD Routine 08/22/2024 12 :01 PM EDT PEP THERAPY Routine 08/22/2024 8:00 AM EDT POCT GLUCOSE BLOOD Routine 08/22/2024 7: 26 AM EDT CBC WITH AUTO DIFFERENTIAL Routine 08/22/2024 6:53 AM EDT CBC AND DIFFERENTIAL Routine 08/22/2024 6:53 AM EDT MAGNESIUM Routine 08/22/2024 6:53 AM EDT VANCOMYCIN, TROUGH Timed 08/22/2024 6: 53 AM EDT BASIC METABOLIC PANEL Routine 08/22/2024 6:53 AM EDT XR CHEST 1 VIEW Routine 08/22/2024 5:45 AM EDT PEP THERAPY Routine 08/21/2024 4:43 PM EDT POCT GLUCOSE BLOOD Routine 08/21/2024 2: 50 PM EDT ..CONCENTRATION Routine 08/21/2024 2:34 PM EDT Empyema (CMS/HCC V24, CMS/HCC V28) CULTURE, AFB AND SMEAR WITH REFLEX TO IDENTIFICATION AND SUSCEPTIBILITY Routine 08/21/2024 2:34 PM EDT Empyema (CMS/HCC V24, CMS/HCC V28) ACID FAST BACILLI STAIN Routine 08/22/19 2:34 PM EDT Empyema (CMS/HCC V24, CMS/HCC V28) XR CHEST 1 VIEW Routine 08/21/2024 1:08 PM EDT OXYGEN THERAPY, ADULT Routine 08/21/2024 12:16 PM EDT CULTURE TISSUE WITH GRAM STAIN Routine 08/21/2024 11:21 AM EDT Empyema (CMS/HCC V24, CMS/HCC V28) CULTURE FUNGAL, OTHER Routine 08/21/2024 11:21 AM EDT Empyema (CMS/HCC V24, CMS/HCC V28) TISSUE EXAM Routine 08/21/2024 11:10 AM EDT Empyema (CMS/HCC V24, CMS/HCC V28) NON-GYNECOLOGIC CYTOLOGY Routine 08/21/2024 11:01 AM EDT Empyema (CMS/HCC V24, CMS/HCC V28) THORACOSCOPY DECORTICATION 08/21/2024 9:43 AM EDT Acute empyema (CMS/HCC V24, CMS/HCC V28) MRSA PCR Routine 08/21/2024 9:30 AM EDT POCT GLUCOSE BLOOD Routine 08/21/2024 7: 58 AM EDT XR CHEST 1 VIEW Routine 08/21/2024 5:55 AM EDT CBC WITH AUTO DIFFERENTIAL Routine 08/21/2024 5:54 AM EDT CBC AND DIFFERENTIAL Routine 08/21/2024 5:54 AM EDT MAGNESIUM Routine 08/21/2024 5:54 AM EDT BASIC METABOLIC PANEL Routine 08/21/2024 5:54 AM EDT ECG ANNOTATED 08/21/2024 XR CHEST 1 VIEW STAT 08/20/2024 10:33 PM EDT POCT GLUCOSE BLOOD Routine 08/20/2024 8: 56 PM EDT TROPONIN I HIGH SENSITIVITY Routine 08/20/2024 7:13 PM EDT PROCEDURAL ECG STAT 08/20/2024 7:07 PM EDT TYPE AND SCREEN Routine 08/20/2024 7:05 PM EDT IR PLEURAL DRAIN INSERT CATH W IMAGE GUIDANCE LEFT Routine 08/20/2024 6:07 PM EDT CELL COUNT WITH REFLEX DIFFERENTIAL, BODY FLUID Routine 08/20/2024 6:03 PM EDT CULTURE BODY FLUID WITH GRAM STAIN Routine 08/20/2024 6:03 PM EDT DIFFERENTIAL BODY FLUID Routine 08/21/19 25 6:03 PM EDT PROTEIN, BODY FLUID Routine 08/20/2024 6 :03 PM EDT LACTATE DEHYDROGENASE, BODY FLUID Routine 08/20/2024 6:03 PM EDT GLUCOSE, BODY FLUID Routine 08/20/2024 6 :03 PM EDT NON-GYNECOLOGIC CYTOLOGY Routine 08/20/2024 6:03 PM EDT MRSA PCR STAT 08/20/2024 3:[address] CHEST W CONTRAST STAT 08/20/2024 2 :13 PM EDT TROPONIN I HIGH SENSITIVITY STAT 08/20/2024 1:53 PM EDT CULTURE BLOOD STAT 08/20/2024 1:53 PM EDT CULTURE BLOOD STAT 08/20/2024 1:53 PM EDT D-DIMER STAT 08/20/2024 1:53 PM EDT LACTATE STAT 08/20/2024 1:53 PM EDT XR CHEST 1 VIEW STAT 08/20/2024 12:48 PM EDT TROPONIN I HIGH SENSITIVITY STAT 08/20/2024 12:11 PM EDT MANUAL DIFFERENTIAL - SYSMEX WAM STAT 08/20/2024 12:11 PM EDT CBC WITH AUTO DIFFERENTIAL STAT 08/20/2024 12:11 PM EDT CBC AND DIFFERENTIAL STAT 08/20/2024 12:11 PM EDT B-TYPE NATRIURETIC PEPTIDE STAT 08/20/2024 12:11 PM EDT MAGNESIUM STAT 08/20/2024 12:11 PM EDT LIPASE STAT 08/20/2024 12:11 PM EDT COMPREHENSIVE METABOLIC PANEL STAT 08/20/2024 12:11 PM EDT ECG 12-LEAD STAT 08/20/2024 11:50 AM EDT documented in this encounter Results * (ABNORMAL) POCT Glucose, blood (08/27/2024 11:23 AM EDT) Glucose POCT 119(H) 70 - 100 mg/dL 08/27/2024 11:24 AM EDT [facility] Blood Capillary blood specimen / Unknown 08/27/2024 11:23 AM EDT 08/27/2024 11:25 AM EDT us Darlene Collazo MD LAB POINT OF CARE T EST DOCKED DEVICE UNSOLICITED RESULTS Final Result Performing Organization Address City/[facility]/ZIP Co de Phone Number [facility] [address] [place] [address], [place] [phone] * (ABNORMAL) POCT Glucose, blood (08/27/2024 7:43 AM EDT) Glucose POCT 108(H) 70 - 100 mg/dL 08/27/2024 7:44 AM EDT [facility] Blood Capillary blood specimen / Unknown 08/27/2024 7:43 AM EDT 08/27/2024 7:45 AM EDT us Darlene Collazo MD LAB POINT OF CARE T EST DOCKED DEVICE UNSOLICITED RESULTS Final Result [facility] [address] [place] [address], [place] [phone] * SST tube (08/27/2024 6:27 AM EDT) [facility] Extra Tube Hold for add-ons. 08/27/2024 8:01 AM EDT [facility] Comment:Auto resulted. Blood Venous blood specimen / Unknown Venipuncture / Unknown 08/27/2024 6:27 AM EDT 08/27/2024 6:45 AM EDT Darlene Collazo MD LAB BLOOD ORDERABLES Final Result [facility] [address] [place] [address], * CBC - Every 3 Days (08/27/2024 6:27 AM EDT) [facility] WBC 10.1 4.8 - 10.8 K/mcL LAB HEMETOLOGY METHOD 08/27/2024 7:05 AM [facility] RBC 4.20 3.80 - 4.80 M/mcL LAB HEMETOLOGY METHOD 08/27/2024 7:05 AM [facility] Hemoglobin 12.4 11.5 - 16.0 g/dL LAB HEMETOLOGY METHOD 08/27/2024 7:05 AM [facility] Hematocrit 37.3 35.0 - 47.0 % LAB HEMETOLOGY METHOD 08/27/2024 7:05 AM [facility] MCV 88.8 79.0 - 98.0 FL LAB HEMETOLOGY METHOD 08/27/2024 7:05 AM [facility] MCH 29.5 27.0 - 32.0 pcg LAB HEMETOLOGY METHOD 08/27/2024 7:05 AM [facility] MCHC 33.2 32.0 - 37.0 g/dL LAB HEMETOLOGY METHOD 08/27/2024 7:05 AM [facility] RDW 12.8 11.0 - 15.0 % LAB HEMETOLOGY METHOD 08/27/2024 7:05 AM EDT [facility] Platelets 305 130 - 400 K/mcL LAB HEMETOLOGY METHOD 08/27/2024 7:05 AM EDT [facility] MPV 10.7 7.0 - 11.0 FL LAB HEMETOLOGY METHOD 08/27/2024 7:05 AM EDT [facility] NRBC 0.0 <1.0 % LAB HEMETOLOGY METHOD 08/27/2024 7:05 AM EDT [facility] NRBC Absolute 0.00 <0.10 K/mcL LAB HEMETOLOGY METHOD 08/27/2024 7:05 AM EDT [facility] Blood Venous blood specimen / Unknown Venipuncture / Unknown 08/27/2024 6:27 AM EDT 08/27/2024 6:45 AM EDT us Blayne Cooper MD LAB BLOOD ORDERABLES Final Resul t [facility] [address] [place] [address], * XR Chest 1 View (08/27/2024 5:36 AM EDT) Anatomical Region Laterality Modality Body Radiographic Jessica ging 08/27/2024 9:0 3 AM EDT Impressions 08/27/2024 9:05 AM EDT No significant interval change. -------- FINAL REPORT -------- Dictated By: Jossue Benitez Dictated Date: 08/27/2024 09:03 ET Assigned Physician: Jossue Benitez Reviewed and Electronically Signed By: Jossue Benitez Signed Date: 08/27/2024 09:05 ET Workstation ID: [id number] Transcribed By: Self Edit Transcribed Date: 08/27/2024 09:03 ET Narrative 08/27/2024 9:05 AM EDT PROCEDURE: AP chest radiograph. HISTORY: s/p decortication. COMPARISON: 08/26/2024. FINDINGS: There is heterogeneous opacity at the left base which obscures the hemidiaphragm. ??Appearance is similar to the previous study. ??Left chest wall emphysema is slightly improved. ??No pneumothorax. ??Atherosclerotic calcification of the aortic arch. ??Upper normal heart size. ??Degenerative changes of the spine with a partially visible lumbar levocurvature. Procedure Note Jossue Benitez MD - 08/27/2024 PROCEDURE: AP chest radiograph. HISTORY: s/p decortication. COMPARISON: 08/26/2024. FINDINGS: There is heterogeneous opacity at the left base which obscures thehemidiaphragm. Appearance is similar to the previous study. Left chestwall emphysema is slightly improved. No pneumothorax. Atheroscleroticcalcification of the aortic arch. Upper normal heart size. Degenerativechanges of the spine with a partially visible lumbar levocurvature. IMPRESSION: No significant interval change. -------- FINAL REPORT -------- Dictated By: Jossue Benitez Dictated Date: 08/27/2024 09:03 ET Assigned Physician: Jossue Benitez Reviewed and Electronically Signed By: Jossue Benitez Signed Date: 08/27/2024 09:05 ET Workstation ID: [id number] Transcribed By: Self Edit Transcribed Date: 08/27/2024 09:03 ET us Savanah Davenport DEVELOPMENT SCIENTIST IMG XR PROCEDURES Final Res ult * (ABNORMAL) POCT Glucose, blood (08/26/2024 7:28 PM EDT) Glucose POCT 151(H) 70 - 100 mg/dL 08/26/2024 7:29 PM EDT [facility] ([facility]) [facility] Blood Capillary blood specimen / Unknown 08/26/2024 7:28 PM EDT 08/26/2024 7:30 PM EDT Darlene Collazo MD LAB POINT OF CARE T EST DOCKED DEVICE UNSOLICITED RESULTS Final Result Performing Organization Address [facility] Co de Phone Number [facility] [address] [place] [address], [place] [phone] * (ABNORMAL) POCT Glucose, blood (08/26/2024 4:58 PM EDT) Glucose POCT 122(H) 70 - 100 mg/dL 08/26/2024 4:58 PM EDT [facility] Blood Capillary blood specimen / Unknown 08/26/2024 4:58 PM EDT 08/26/2024 4:59 PM EDT us Darlene Collazo MD LAB POINT OF CARE T EST DOCKED DEVICE UNSOLICITED RESULTS Final Result Performing Organization Address [facility] de Phone Number [facility] [address] [place] [address], [place] [phone] * ECG 12 lead (08/26/2024 1:10 PM EDT) Ventricular Rate ECG 76 BPM GEMUSE Atrial Rate 76 BPM GEMUSE P-R Interval 128 ms GEMUSE QRS Duration 132 ms GEMUSE Q-T Interval 414 ms GEMUSE QTc 465 ms GEMUSE P Wave Ovalo 60 degrees GEMUSE R Ovalo 7 degrees GEMUSE T Ovalo 21 degrees GEMUSE ECG Interpretation Normal sinus rhythm Right bundle branch block Abnormal ECG When compared with ECG of 23-AUG-2024 13:18, No significant change was found Confirmed by ROBERTO OROZCO ([id number]) on 08/26/2024 9:41:11 PM GEMUSE 08/26/2024 1:10 PM EDT 08/26/2024 9:41 PM EDT us Darlene Collazo MD ECG ORDERABLES Final Resul t Performing Organization Address [facility]/ZIP Co de Phone Number GEMUSE * (ABNORMAL) POCT Glucose, blood (08/26/2024 11:05 AM EDT) Glucose POCT 110(H) 70 - 100 mg/dL 08/26/2024 11:06 AM EDT [facility] Blood Capillary blood specimen / Unknown 08/26/2024 11:05 AM EDT 08/26/2024 11:07 AM EDT Darlene Collazo MD LAB POINT OF CARE T EST DOCKED DEVICE UNSOLICITED RESULTS Final Result [facility] [address] [place] [address], [place] [phone] * XR Chest 2 Views (08/26/2024 9:56 AM EDT) Anatomical Region Laterality Modality Body Radiographic Jessica ging 08/26/2024 10:1 6 AM EDT Impressions 08/26/2024 10:21 AM EDT FINDINGS/IMPRESSION: Small left pleural effusion with adjacent opacity, similar compared to prior. ??No pneumothorax. ??Air in the left lateral chest wall and left supraclavicular region, unchanged. ??Right lung is relatively clear. ??Cardiac silhouette and bones are stable compared to prior. -------- FINAL REPORT -------- Dictated By: BRIAN CULP Dictated Date: 08/26/2024 10:16 ET Assigned Physician: BRIAN CULP Reviewed and Electronically Signed By: BRIAN CULP Signed Date: 08/26/2024 10:21 ET Workstation ID: [id number] Transcribed By: Self Edit Transcribed Date: 08/26/2024 10:16 ET Narrative 08/26/2024 10:21 AM EDT XR CHEST 2 VIEWS INDICATION: ??Shortness of breath TECHNIQUE: XR CHEST 2 VIEWS COMPARISON: 08/26/2024 Procedure Note Biran Culp MD - 08/26/2024 XR CHEST 2 VIEWS INDICATION: Shortness of breath TECHNIQUE: XR CHEST 2 VIEWS COMPARISON: 08/26/2024 IMPRESSION: FINDINGS/IMPRESSION: Small left pleural effusion with adjacent opacity,similar compared to prior. No pneumothorax. Air in the left lateralchest wall and left supraclavicular region, unchanged. Right lung isrelatively clear. Cardiac silhouette and bones are stable compared toprior. -------- FINAL REPORT -------- Dictated By: BRIAN CULP Dictated Date: 08/26/2024 10:16 ET Assigned Physician: BRIAN CULP Reviewed and Electronically Signed By: BRIAN CULP Signed Date: 08/26/2024 10:21 ET Workstation ID: [id number] Transcribed By: Self Edit Transcribed Date: 08/26/2024 10:16 ET us Darlene Collazo MD IMG XR PROCEDURES Final Res ult * POCT Glucose, blood (08/26/2024 7:57 AM EDT) [facility] Glucose POCT 100 70 - 100 mg/dL 08/26/2024 7:57 AM EDT [facility] Blood Capillary blood specimen / Unknown 08/26/2024 7:57 AM EDT 08/26/2024 7:58 AM EDT Darlene Collazo MD LAB POINT OF CARE T EST DOCKED DEVICE UNSOLICITED RESULTS Final Result [facility] [address] [place] [address], [place] [phone] * XR Chest 1 View (08/26/2024 3:56 AM EDT) Anatomical Region Laterality Modality Body Radiographic Jessica ging 08/26/2024 8:21 AM EDT Impressions 08/26/2024 8:22 AM EDT FINDINGS/IMPRESSION: Left basilar opacity is unchanged, likely small pleural effusion and adjacent atelectasis. ??Right lung is clear. ??No pneumothorax. ??Cardiac silhouette and bones are unchanged. ??Air in the left chest wall and left supraclavicular region is stable to slightly decreased compared to prior. -------- FINAL REPORT -------- Dictated By: BRIAN CULP Dictated Date: 08/26/2024 08:21 ET Assigned Physician: BRIAN CULP Reviewed and Electronically Signed By: BRIAN CULP Signed Date: 08/26/2024 08:22 ET Workstation ID: [id number] Transcribed By: Self Edit Transcribed Date: 08/26/2024 08:21 ET Narrative 08/26/2024 8:22 AM EDT XR CHEST 1 VIEW INDICATION: ??Decortication TECHNIQUE: XR CHEST 1 VIEW COMPARISON: 08/25/2024 Procedure Note Brian Culp MD - 08/26/2024 XR CHEST 1 VIEW INDICATION: Decortication TECHNIQUE: XR CHEST 1 VIEW COMPARISON: 08/25/2024 IMPRESSION: FINDINGS/IMPRESSION: Left basilar opacity is unchanged, likely smallpleural effusion and adjacent atelectasis. Right lung is clear. Nopneumothorax. Cardiac silhouette and bones are unchanged. Air in theleft chest wall and left supraclavicular region is stable to slightlydecreased compared to prior. -------- FINAL REPORT -------- Dictated By: BRIAN CULP Dictated Date: 08/26/2024 08:21 ET Assigned Physician: BRIAN CULP Reviewed and Electronically Signed By: BRIAN CULP Signed Date: 08/26/2024 08:22 ET Workstation ID: [id number] Transcribed By: Self Edit Transcribed Date: 08/26/2024 08:21 ET us Savanah Davenport DEVELOPMENT SCIENTIST IMG XR PROCEDURES Final Res ult * (ABNORMAL) POCT Glucose, blood (08/25/2024 8:39 PM EDT) [facility] Glucose POCT 148(H) 70 - 100 mg/dL 08/25/2024 8:40 PM EDT [facility] ([facility] Blood Capillary blood specimen / Unknown 08/25/2024 8:39 PM EDT 08/25/2024 8:41 PM EDT us Darlene Collazo MD LAB POINT OF CARE T EST DOCKED DEVICE UNSOLICITED RESULTS Final Result Performing Organization Address [facility] Co de Phone Number [facility] [address] [place] [address], [place] [phone] * (ABNORMAL) POCT Glucose, blood (08/25/2024 4:28 PM EDT) Glucose POCT 263(H) 70 - 100 mg/dL 08/25/2024 4:28 PM EDT [facility] Blood Capillary blood specimen / Unknown 08/25/2024 4:28 PM EDT 08/25/2024 4:29 PM EDT us Darlene Collazo MD LAB POINT OF CARE T EST DOCKED DEVICE UNSOLICITED RESULTS Final Result Performing Organization Address [facility] de Phone Number [facility] [address] [place] [address], [place] [phone] * (ABNORMAL) POCT Glucose, blood (08/25/2024 11:28 AM EDT) Glucose POCT 122(H) 70 - 100 mg/dL 08/25/2024 11:29 AM EDT [facility] Blood Capillary blood specimen / Unknown 08/25/2024 11:28 AM EDT 08/25/2024 11:30 AM EDT us Darlene Collazo MD LAB POINT OF CARE T EST DOCKED DEVICE UNSOLICITED RESULTS Final Result Performing Organization Address [facility] Co de Phone Number [facility] [address] [place] [address], [place] [phone] * (ABNORMAL) POCT Glucose, blood (08/25/2024 7:50 AM EDT) Glucose POCT 111(H) 70 - 100 mg/dL 08/25/2024 7:57 AM EDT [facility] Blood Capillary blood specimen / Unknown 08/25/2024 7:50 AM EDT 08/25/2024 7:59 AM EDT Darlene Collazo MD LAB POINT OF CARE T EST DOCKED DEVICE UNSOLICITED RESULTS Final Result [facility] [address] [place] [address], [place] [phone] * XR Chest 1 View (08/25/2024 4:39 AM EDT) Anatomical Region Laterality Modality Body Radiographic Jessica ging 08/25/2024 9:07 AM EDT Impressions 08/25/2024 9:09 AM EDT Interval removal of left-sided chest tube with tiny apical pneumothorax and interval increase in left chest wall subcutaneous emphysema. -------- FINAL REPORT -------- Dictated By: Palomo Mckee Dictated Date: 08/25/2024 09:07 ET Assigned Physician: Palomo Mckee Reviewed and Electronically Signed By: Palomo Mckee Signed Date: 08/25/2024 09:09 ET Workstation ID: [id number] Transcribed By: Self Edit Transcribed Date: 08/25/2024 09:07 ET Narrative 08/25/2024 9:09 AM EDT INDICATION: Status post decortication with removal of left-sided chest tube FINDINGS: Single portable AP view of the chest obtained. Compared to multiple prior studies most recent from August 24, 2024 at 4:08 AM. Removal left-sided chest tube with tiny apical pneumothorax suspected. Interval increase in left-sided subcutaneous emphysema in the region of the left lower neck and upper chest wall. No midline shift. No infiltrates or effusions. Heart enlarged but unchanged. Bony structures are grossly intact and normal for the patient's age. Procedure Note Palomo Mckee MD - 08/25/2024 INDICATION: Status post decortication with removal of left-sided chesttube FINDINGS: Single portable AP view of the chest obtained. Compared tomultiple prior studies most recent from August 24, 2024 at 4:08 AM. Removal left-sided chest tube with tiny apical pneumothorax suspected.Interval increase in left-sided subcutaneous emphysema in the region ofthe left lower neck and upper chest wall. No midline shift. No infiltrates or effusions. Heart enlarged but unchanged. Bony structures are grossly intact and normal for the patient's age. IMPRESSION: Interval removal of left-sided chest tube with tiny apical pneumothoraxand interval increase in left chest wall subcutaneous emphysema. -------- FINAL REPORT -------- Dictated By: Palomo Mckee Dictated Date: 08/25/2024 09:07 ET Assigned Physician: Palomo Mckee Reviewed and Electronically Signed By: Palomo Mckee Signed Date: 08/25/2024 09:09 ET Workstation ID: [id number] Transcribed By: Self Edit Transcribed Date: 08/25/2024 09:07 ET us Savanah Davenport DEVELOPMENT SCIENTIST IMG XR PROCEDURES Final Res ult * (ABNORMAL) POCT Glucose, blood (08/24/2024 9:49 PM EDT) Glucose POCT 168(H) 70 - 100 mg/dL 08/24/2024 9:50 PM EDT [facility] Blood Capillary blood specimen / Unknown 08/24/2024 9:49 PM EDT 08/24/2024 9:51 PM EDT us Blayne Cooper MD LAB POINT OF CARE TE ST DOCKED DEVICE UNSOLICITED RESULTS Final Result [facility] [address] [place] [address], [place] [phone] * (ABNORMAL) POCT Glucose, blood (08/24/2024 3:12 PM EDT) Glucose POCT 183(H) 70 - 100 mg/dL 08/24/2024 3:12 PM EDT [facility] POCT Comment RN Notified 08/24/2024 3:12 PM EDT [facility] Blood Capillary blood specimen / Unknown 08/24/2024 3:12 PM EDT 08/24/2024 3:13 PM EDT us Blayne Cooper MD LAB POINT OF CARE TE ST DOCKED DEVICE UNSOLICITED RESULTS Final Result Performing Organization Address City/[facility]/ZIP Co de Phone Number [facility] [address] [place] [address], [place] [phone] * (ABNORMAL) POCT Glucose, blood (08/24/2024 12:00 PM EDT) Glucose POCT 138(H) 70 - 100 mg/dL 08/24/2024 12:01 PM EDT [facility] Blood Capillary blood specimen / Unknown 08/24/2024 12:00 PM EDT 08/24/2024 12:02 PM EDT us Blayne Cooper MD LAB POINT OF CARE TE ST DOCKED DEVICE UNSOLICITED RESULTS Final Result Performing Organization Address [facility]/ZIP Co de Phone Number [facility] [address] [place] [address], [place] [phone] * (ABNORMAL) POCT Glucose, blood (08/24/2024 7:42 AM EDT) Glucose POCT 102(H) 70 - 100 mg/dL 08/24/2024 7:42 AM EDT [facility] POCT Comment RN Notified 08/24/2024 7:42 AM EDT [facility] Blood Capillary blood specimen / Unknown 08/24/2024 7:42 AM EDT 08/24/2024 7:43 AM EDT us Blayne Cooper MD LAB POINT OF CARE TE ST DOCKED DEVICE UNSOLICITED RESULTS Final Result [facility] [address] [place] [address], * (ABNORMAL) CBC auto differential (08/24/2024 6:51 AM EDT) WBC 10.9(H) 4.8 - 10.8 K/mcL LAB HEMETOLOGY METHOD 08/24/2024 7:29 AM EDT [facility] RBC 3.70(L) 3.80 - 4.80 M/mcL LAB HEMETOLOGY METHOD 08/24/2024 7:29 AM [facility] Hemoglobin 11.1(L) 11.5 - 16.0 g/dL LAB HEMETOLOGY METHOD 08/24/2024 7:29 AM [facility] Hematocrit 34.0(L) 35.0 - 47.0 % LAB HEM[facility]OLOGY [facility] MCV 92.6 79.0 - 98.0 FL LAB HEMETOLOGY METHOD [facility]/24[facility]2024 7[facility] MCH 30.2 27.0 - 32.0 pcg LAB HEMETOLOGY METHOD 08/24/2024 7:29 AM [facility] MCHC 32.6 32.0 - 37.0 g/dL LAB HEMETOLOGY METHOD [facility]24[facility]2024 7[facility] RDW 13.1 11.0 - 15.0 % LAB HEMETOLOGY METHOD 08/24/2024 7:29 AM [facility] Platelets 268 130 - 400 K/mcL LAB HEMETOLOGY METHOD 08/24/2024 7:29 AM [facility] MPV 11.0 7.0 - 11.0 FL LAB HEMETOLOGY METHOD 08/24/2024 7:29 AM [facility] NRBC 0.0 <1.0 % LAB HEMETOLOGY METHOD 08/24/2024 7:29 AM [facility] NRBC Absolute 0.00 <0.10 K/mcL LAB HEMETOLOGY METHOD 08/24/2024 7:29 AM [facility] Neutrophils Relative 80.3 % LAB HEMETOLOGY METHOD 08/24/2024 7:29 AM [facility] Lymphocytes Relative 10.4 % LAB HEMETOLOGY METHOD 08/24/2024 7:29 AM [facility] Monocytes Relative 8.0 % LAB HEMETOLOGY METHOD 08/24/2024 7:29 AM [facility] Eosinophils Relative 0.6 % LAB HEMETOLOGY METHOD 08/24/2024 7:29 AM [facility] Basophils Relative 0.1 % LAB HEMETOLOGY METHOD 08/24/2024 7:29 AM [facility] Immature Granulocytes Relative 0.6 % LAB HEMETOLOGY METHOD 08/24/2024 7:29 AM [facility] Neutrophils Absolute 8.71(H) 1.50 - 7.00 K/mcL LAB HEMETOLOGY METHOD 08/24/2024 7:29 AM [facility] Lymphocytes Absolute 1.13 1.00 - 5.00 K/mcL LAB HEMETOLOGY METHOD 08/24/2024 7:29 AM [facility] Monocytes Absolute 0.87 0.20 - 1.00 K/mcL LAB HEMETOLOGY METHOD 08/24/2024 7:29 AM [facility] Eosinophils Absolute 0.07 0.00 - 0.50 K/mcL LAB HEMETOLOGY METHOD 08/24/2024 7:29 AM [facility] Basophils Absolute 0.01 0.00 - 0.20 K/[facility] LAB HEMETOLOGY METHOD 08/24/2024 7:29 AM EDT [facility] Immature Granulocytes Absolute 0.06(H) 0.00 - 0.03 K/mcL LAB HEMETOLOGY METHOD 08/24/2024 7:29 AM T [facility] Blood Venous blood specimen / Unknown Venipuncture / Unknown 08/24/2024 6:51 AM EDT 08/24/2024 7:11 AM EDT us Blayne Cooper MD LAB BLOOD ORDERABLES Final Resul t [facility] [address] [place] [address], [place] [phone] * (ABNORMAL) CBC - Every 3 Days (08/24/2024 6:51 AM EDT) WBC 10.9(H) 4.8 - 10.8 K/mcL LAB HEMETOLOGY METHOD 08/24/2024 7:29 AM EDT [facility] RBC 3.70(L) 3.80 - 4.80 M/[facility] LAB HEMETOLOGY METHOD 08/24/2024 7:29 AM [facility] Hemoglobin 11.1(L) 11.5 - 16.0 g/dL LAB HEMETOLOGY METHOD 08/24/2024 7:29 AM EDT [facility] Hematocrit 34.0(L) 35.0 - 47.0 % LAB HEMETOLOGY METHOD 08/24/2024 7:29 AM EDT [facility] MCV 92.6 79.0 - 98.0 FL LAB HEMETOLOGY METHOD 08/24/2024 7:29 AM [facility] MCH 30.2 27.0 - 32.0 pcg LAB HEMETOLOGY METHOD 08/24/2024 7:29 AM EDT [facility] MCHC 32.6 32.0 - 37.0 g/dL LAB HEMETOLOGY METHOD 08/24/2024 7:29 AM EDT [facility] RDW 13.1 11.0 - 15.0 % LAB HEMETOLOGY METHOD 08/24/2024 7:29 AM EDT [facility] Platelets 268 130 - 400 K/mcL LAB HEMETOLOGY METHOD 08/24/2024 7:29 AM EDT [facility] MPV 11.0 7.0 - 11.0 FL LAB HEMETOLOGY METHOD 08/24/2024 7:29 AM EDT [facility] NRBC 0.0 <1.0 % LAB HEMETOLOGY METHOD 08/24/2024 7:29 AM EDT [facility] NRBC Absolute 0.00 <0.10 K/mcL LAB HEMETOLOGY METHOD 08/24/2024 7:29 AM EDT [facility] Blood Venous blood specimen / Unknown Venipuncture / Unknown 08/24/2024 6:51 AM EDT 08/24/2024 7:11 AM EDT us Blayne Cooper MD LAB BLOOD ORDERABLES Final Resul t [facility] [address] [place] [address], * Magnesium (08/24/2024 6:51 AM EDT) Magnesium 2.1 1.9 - 2.6 mg/dL LAB CHEMISTRY METHOD 08/24/2024 7:58 AM EDT [facility] Blood Venous blood specimen / Unknown Venipuncture / Unknown 08/24/2024 6:51 AM EDT 08/24/2024 7:11 AM EDT us Blayne Cooper MD LAB BLOOD ORDERABLES Final Resul t [facility] [address] [place] [address], * (ABNORMAL) Comprehensive metabolic panel (08/24/2024 6:51 AM EDT) Sodium 141 133 - 145 mmol/L LAB CHEMISTRY METHOD 08/24/2024 8:09 AM [facility] Potassium 3.9 3.5 - 5.5 mmol/L LAB CHEMISTRY METHOD 08/24/2024 8:09 AM [facility] Chloride 112(H) 96 - 110 mmol/L LAB CHEMISTRY METHOD 08/24/2024 8:09 AM [facility] CO2 25 21 - 32 mmol/L LAB CHEMISTRY METHOD 08/24/2024 8:09 AM [facility] Anion Gap 4 3 - 11 LAB CHEMISTRY METHOD 08/24/2024 8:09 AM [facility] Glucose 116(H) 70 - 100 mg/dL LAB CHEMISTRY METHOD 08/24/2024 8:09 AM [facility] BUN 21 5 - 25 mg/dL LAB CHEMISTRY METHOD 08/24/2024 8:09 AM [facility] Creatinine 0.86 0.50 - 1.10 mg/dL LAB CHEMISTRY METHOD 08/24/2024 8:09 AM [facility] eGFR 71 >=60 mL/min/1. 73m2 LAB CHEMISTRY METHOD 08/24/2024 8:09 AM [facility] Comment:Calculation based on the??Chronic Kidney Disease Epidemiology Collaboration (CKD-EPI) equation refit??without adjustment for race. BUN/Creatinine Ratio 24.4 LAB CHEMISTRY METHOD 08/24/2024 8:09 AM [facility] Calcium 8.8 8.5 - 10.5 mg/dL LAB CHEMISTRY METHOD 08/24/2024 8:09 AM EDT [facility] AST (SGOT) 18 10 - 42 unit/L LAB CHEMISTRY METHOD 08/24/2024 8:09 AM EDT [facility] ALT (SGPT) 56 10 - 60 unit/L LAB CHEMISTRY METHOD 08/24/2024 8:09 AM EDT [facility] Alkaline Phosphatase 72 42 - 121 unit/L LAB CHEMISTRY METHOD 08/24/2024 8:09 AM EDT [facility] Total Protein 5.5(L) 6.0 - 8.0 g/dL LAB CHEMISTRY METHOD 08/24/2024 8:09 AM T [facility] Albumin 2.6(L) 3.2 - 5.0 g/dL LAB CHEMISTRY METHOD 08/24/2024 8:09 AM [facility] Total Bilirubin 0.6 0.0 - 1.4 mg/dL LAB CHEMISTRY METHOD 08/24/2024 8:09 AM EDT [facility] Blood Venous blood specimen / Unknown Venipuncture / Unknown 08/24/2024 6:51 AM EDT 08/24/2024 7:11 AM EDT us Savanah Davenport NP LAB BLOOD ORDERABLES Final Result [facility] [address] [place] [address], * XR Chest 1 View (08/24/2024 4:26 AM EDT) Anatomical Region Laterality Modality Body Radiographic Jessica ging 08/24/2024 8:21 AM EDT Impressions 08/24/2024 8:23 AM EDT Impression: Postop changes in the left hemithorax with chest tube in place. No pneumothorax is seen. No significant change. Telemaritza CAMPBELL ([id number]) -------- FINAL REPORT -------- Dictated By: Caren Gillespie Dictated Date: 08/24/2024 08:21 ET Assigned Physician: Caren Gillespie Reviewed and Electronically Signed By: Caren Gillespie Signed Date: 08/24/2024 08:23 ET Workstation ID: [id number] Transcribed By: Self Edit Transcribed Date: 08/24/2024 08:21 ET Narrative 08/24/2024 8:23 AM EDT History: Follow-up status post decortication left hemithorax. Comparison: 08/23/24, 08/20/24, thoracic CT 08/20/24 Findings: Portable AP upright chest at 4:08 AM. A large bore left thoracostomy tube is again seen, terminating near the apex of the hemithorax. No pneumothorax is identified. Mild residual pleural-based opacity is again seen at the base of the left hemithorax, stable from the previous study. Mild subcutaneous emphysema is again seen adjacent to the left lower chest wall. The right lung is grossly clear. The cardiac silhouette remains enlarged. The mediastinal structures are midline. Procedure Note Caren Gillespie MD - 08/24/2024 History: Follow-up status post decortication left hemithorax. Comparison: 08/23/24, 08/20/24, thoracic CT 08/20/24 Findings: Portable AP upright chest at 4:08 AM. A large bore left thoracostomy tubeis again seen, terminating near the apex of the hemithorax. Nopneumothorax is identified. Mild residual pleural-based opacity is againseen at the base of the left hemithorax, stable from the previous study.Mild subcutaneous emphysema is again seen adjacent to the left lower chestwall. The right lung is grossly clear. The cardiac silhouette remains enlarged.The mediastinal structures are midline. IMPRESSION: Impression: Postop changes in the left hemithorax with chest tube in place. Nopneumothorax is seen. No significant change. Telerad PA ([id number]) -------- FINAL REPORT -------- Dictated By: Caren Gillespie Dictated Date: 08/24/2024 08:21 ET Assigned Physician: Caren Gillespie Reviewed and Electronically Signed By: Caren Gillespie Signed Date: 08/24/2024 08:23 ET Workstation ID: [id number] Transcribed By: Self Edit Transcribed Date: 08/24/2024 08:21 ET Savanah Davenport DEVELOPMENT SCIENTIST IMG XR PROCEDURES Final Res ult * (ABNORMAL) POCT Glucose, blood (08/23/2024 8:29 PM EDT) Glucose POCT 133(H) 70 - 100 mg/dL 08/23/2024 8:29 PM EDT [facility] POCT Comment RN Notified 08/23/2024 8:29 PM EDT [facility] Blood Capillary blood specimen / Unknown 08/23/2024 8:29 PM EDT 08/23/2024 8:30 PM EDT Blayne Cooper MD LAB POINT OF CARE TE ST DOCKED DEVICE UNSOLICITED RESULTS Final Result Performing Organization Address City/[facility]/ZIP Co de Phone Number [facility] [address] [place] [address], [place] [phone] * (ABNORMAL) POCT Glucose, blood (08/23/2024 3:59 PM EDT) [facility] Signature Glucose POCT 192(H) 70 - 100 mg/dL 08/23/2024 4:04 PM EDT [facility] Blood Capillary blood specimen / Unknown 08/23/2024 3:59 PM EDT 08/23/2024 4:05 PM EDT Blayne Cooper MD LAB POINT OF CARE TE ST DOCKED DEVICE UNSOLICITED RESULTS Final Result [facility] [address] [place] [address], [place] [phone] * ECG 12 lead (08/23/2024 1:18 PM EDT) Ventricular Rate ECG 89 BPM GEMUSE Atrial Rate 89 BPM GEMUSE P-R Interval 130 ms GEMUSE QRS Duration 140 ms GEMUSE Q-T Interval 412 ms GEMUSE QTc 501 ms GEMUSE P Wave Ovalo 68 degrees GEMUSE R Ovalo 14 degrees GEMUSE T Ovalo 34 degrees GEMUSE ECG Interpretation Normal sinus rhythm Right bundle branch block Abnormal ECG When compared with ECG of 20-AUG-2024 19:07, Inverted T waves have replaced nonspecific T wave abnormality in Anterior leads QT has lengthened Confirmed by Kimberly MORTENSEN YUFENG ([id number]) on 08/23/2024 6:48:12 PM GEM[facility] 08/23/2024 1:18 PM EDT 08/23/2024 6:48 PM EDT us Blayne Cooper MD ECG ORDERABLES Final Result Performing Organization Address City/[facility]/ZIP Co de Phone Number G[facility] * (ABNORMAL) POCT Glucose, blood (08/23/2024 11:20 AM EDT) Glucose POCT 129(H) 70 - 100 mg/dL 08/23/2024 11:33 AM EDT [facility] Blood Capillary blood specimen / Unknown 08/23/2024 11:20 AM EDT 08/23/2024 11:34 AM EDT us Blayne Cooper MD LAB POINT OF CARE TE ST DOCKED DEVICE UNSOLICITED RESULTS Final Result [facility] [facility] [address] [place] [address], [place] [phone] * (ABNORMAL) POCT Glucose, blood (08/23/2024 7:58 AM EDT) Glucose POCT 144(H) 70 - 100 mg/dL 08/23/2024 8:04 AM EDT [facility] Blood Capillary blood specimen / Unknown 08/23/2024 7:58 AM EDT 08/23/2024 8:05 AM EDT us Blayne Cooper MD LAB POINT OF CARE TE ST DOCKED DEVICE UNSOLICITED RESULTS Final Result [facility] [address] [place] [address], [place] [phone] * (ABNORMAL) CBC auto differential (08/23/2024 5:55 AM EDT) WBC 18.4(H) 4.8 - 10.8 K/mcL LAB HEMETOLOGY METHOD 08/23/2024 6:28 AM EDT [facility] RBC 3.80 3.80 - 4.80 M/mcL LAB HEMETOLOGY METHOD 08/23/2024 6:28 AM EDT [facility] Hemoglobin 11.5 11.5 - 16.0 g/dL LAB HEMETOLOGY METHOD 08/23/2024 6:28 AM EDT [facility] Hematocrit 35.8 35.0 - 47.0 % LAB HEMETOLOGY METHOD 08/23/2024 6:28 AM EDT [facility] MCV 93.5 79.0 - 98.0 FL LAB HEMETOLOGY [facility]24 [facility] MCH 30.0 27.0 - 32.0 pcg LAB HEMETOLOGY METHOD 08/23/2024 6:28 AM EDT [facility] MCHC 32.1 32.0 - 37.0 g/dL LAB HEMETOLOGY METHOD 08/23/2024 6:28 AM EDT [facility] RDW 12.9 11.0 - 15.0 % LAB HEMETOLOGY METHOD 08/23/2024 6:28 AM [facility] Platelets 297 130 - 400 K/mcL LAB HEMETOLOGY METHOD 08/23/2024 6:28 AM EDT [facility] MPV 11.0 7.0 - 11.0 FL LAB HEMETOLOGY METHOD 08/23/2024 6:28 AM [facility] NRBC 0.0 <1.0 % LAB HEMETOLOGY METHOD 08/23/2024 6:28 AM [facility] NRBC Absolute 0.00 <0.10 K/mcL LAB HEMETOLOGY METHOD 08/23/2024 6:28 AM [facility] Neutrophils Relative 89.9 % LAB HEMETOLOGY METHOD 08/23/2024 6:28 AM [facility] Lymphocytes Relative 3.5 % LAB HEMETOLOGY METHOD 08/23/2024 6:28 AM [facility] Monocytes Relative 5.9 % LAB HEMETOLOGY METHOD 08/23/2024 6:28 AM [facility] Eosinophils Relative 0.0 % LAB HEMETOLOGY METHOD 08/23/2024 6:28 AM [facility] Basophils Relative 0.1 % LAB HEMETOLOGY METHOD 08/23/2024 6:28 AM [facility] Immature Granulocytes Relative 0.6 % LAB HEMETOLOGY METHOD 08/23/2024 6:28 AM [facility] Neutrophils Absolute 16.58(H) 1.50 - 7.00 K/mcL LAB HEMETOLOGY METHOD 08/23/2024 6:28 AM [facility] Lymphocytes Absolute 0.64(L) 1.00 - 5.00 K/mcL LAB HEMETOLOGY METHOD 08/23/2024 6:28 AM [facility] Monocytes Absolute 1.08(H) 0.20 - 1.00 K/mcL LAB HEMETOLOGY METHOD 08/23/2024 6:28 AM [facility] Eosinophils Absolute 0.00 0.00 - 0.50 K/mcL LAB HEMETOLOGY METHOD 08/23/2024 6:28 AM [facility] Basophils Absolute 0.02 0.00 - 0.20 K/mcL LAB HEMETOLOGY METHOD 08/23/2024 6:28 AM [facility] Immature Granulocytes Absolute 0.11(H) 0.00 - 0.03 K/mcL LAB HEMETOLOGY METHOD 08/23/2024 6:28 AM [facility] Blood Venous blood specimen / Unknown Venipuncture / Unknown 08/23/2024 5:55 AM EDT 08/23/2024 6:15 AM EDT us Fabi CAMPBELL LAB BLOOD ORDERABLES Final Re sult [facility] [address] [place] [address], [place] [phone] * (ABNORMAL) Basic metabolic panel (08/23/2024 5:55 AM EDT) Sodium 141 133 - 145 mmol/L LAB CHEMISTRY METHOD 08/23/2024 7:07 AM [facility] Potassium 3.9 3.5 - 5.5 mmol/L LAB CHEMISTRY METHOD 08/23/2024 7:07 AM [facility] Chloride 110 96 - 110 mmol/L LAB CHEMISTRY METHOD 08/23/2024 7:07 AM [facility] CO2 26 21 - 32 mmol/L LAB CHEMISTRY METHOD 08/23/2024 7:07 AM [facility] Anion Gap 5 3 - 11 LAB CHEMISTRY METHOD 08/23/2024 7:07 AM [facility] Glucose 144(H) 70 - 100 mg/dL LAB CHEMISTRY METHOD 08/23/2024 7:07 AM [facility] BUN 25 5 - 25 mg/dL LAB CHEMISTRY METHOD 08/23/2024 7:07 AM [facility] Comment:Results verified by repeat testing Creatinine 1.27(H) 0.50 - 1.10 mg/dL LAB CHEMISTRY METHOD 08/23/2024 7:07 AM EDT [facility] eGFR 44(L) >=60 mL/min/1. 73m2 LAB CHEMISTRY METHOD 08/23/2024 7:07 AM EDT [facility] Comment:Calculation based on the??Chronic Kidney Disease Epidemiology Collaboration (CKD-EPI) equation refit??without adjustment for race. BUN/Creatinine Ratio 19.7 LAB CHEMISTRY METHOD 08/23/2024 7:07 AM EDT [facility] Calcium 8.8 8.5 - 10.5 mg/dL LAB CHEMISTRY METHOD 08/23/2024 7:07 AM EDT [facility] Blood Venous blood specimen / Unknown Venipuncture / Unknown 08/23/2024 5:55 AM EDT 08/23/2024 6:15 AM EDT us Fabi CAMPBELL LAB BLOOD ORDERABLES Final Re sult [facility] [address] [place] [address], * XR Chest 1 View (08/23/2024 4:27 AM EDT) Anatomical Region Laterality Modality Body Radiographic Jessica ging 08/23/2024 9:01 AM EDT Impressions 08/23/2024 9:03 AM EDT Impression: 1. Left chest tube well-positioned. 2. No significant change in small left apical pneumothorax. 3. Stable left retrocardiac opacity, possibly residual pleural-parenchymal process versus postop change. Telemaritza CAMPEBLL ([id number]) -------- FINAL REPORT -------- Dictated By: Caren Gillespie Dictated Date: 08/23/2024 09:01 ET Assigned Physician: Caren Gillespie Reviewed and Electronically Signed By: Caren Gillespie Signed Date: 08/23/2024 09:03 ET Workstation ID: [id number] Transcribed By: Self Edit Transcribed Date: 08/23/2024 09:01 ET Narrative 08/23/2024 9:03 AM EDT History: Postop status post decortication left hemithorax. Comparison: 08/22/24, 08/20/24, thoracic CT 08/20/24 Findings: Portable AP upright chest at 3:55 AM. A large bore left thoracostomy tube terminates near the apex, unchanged from the most recent study. There is a small left apical pneumothorax, similar to the most recent study, with approximately 7 mm of pleural separation. Confluent left retrocardiac opacity is without significant change. Mild subcutaneous emphysema is seen adjacent to the left lower chest wall, unchanged. The right lung is grossly clear. The cardiac silhouette remains mildly enlarged. Procedure Note Caren Gillespie MD - 08/23/2024 History: Postop status post decortication left hemithorax. Comparison: 08/22/24, 08/20/24, thoracic CT 08/20/24 Findings: Portable AP upright chest at 3:55 AM. A large bore left thoracostomy tube terminates near the apex, unchangedfrom the most recent study. There is a small left apical pneumothorax,similar to the most recent study, with approximately 7 mm of pleuralseparation. Confluent left retrocardiac opacity is without significantchange. Mild subcutaneous emphysema is seen adjacent to the left lowerchest wall, unchanged. The right lung is grossly clear. The cardiac silhouette remains mildlyenlarged. IMPRESSION: Impression: 1. Left chest tube well-positioned. 2. No significant change in small left apical pneumothorax. 3. Stable left retrocardiac opacity, possibly residual pleural- parenchymalprocess versus postop change. [place] ([id number]) -------- FINAL REPORT -------- Dictated By: Caren Gillespie Dictated Date: 08/23/2024 09:01 ET Assigned Physician: Caren Gillespie Reviewed and Electronically Signed By: Caren Gillespie Signed Date: 08/23/2024 09:03 ET Workstation ID: [id number] Transcribed By: Self Edit Transcribed Date: 08/23/2024 09:01 ET Fabi CAMPBELL IMG XR PROCEDURES Final Resul t * (ABNORMAL) POCT Glucose, blood (08/22/2024 7:24 PM EDT) Glucose POCT 189(H) 70 - 100 mg/dL 08/22/2024 7:26 PM EDT [facility] Blood Capillary blood specimen / Unknown 08/22/2024 7:24 PM EDT 08/22/2024 7:27 PM EDT Blayne Cooper MD LAB POINT OF CARE TE ST DOCKED DEVICE UNSOLICITED RESULTS Final Result [facility] [address] [place] [address], [place] [phone] * (ABNORMAL) POCT Glucose, blood (08/22/2024 3:10 PM EDT) Glucose POCT 151(H) 70 - 100 mg/dL 08/22/2024 3:11 PM EDT [facility] Blood Capillary blood specimen / Unknown 08/22/2024 3:10 PM EDT 08/22/2024 3:12 PM EDT us Blayne Cooper MD LAB POINT OF CARE TE ST DOCKED DEVICE UNSOLICITED RESULTS Final Result [facility] [address] [place] [address], [place] [phone] * (ABNORMAL) POCT Glucose, blood (08/22/2024 12:01 PM EDT) Glucose POCT 173(H) 70 - 100 mg/dL 08/22/2024 12:02 PM EDT [facility] Blood Capillary blood specimen / Unknown 08/22/2024 12:01 PM EDT 08/22/2024 12:03 PM EDT us Blayne Cooper MD LAB POINT OF CARE TE ST DOCKED DEVICE UNSOLICITED RESULTS Final Result Performing Organization Address [facility]/ZIP Co de Phone Number [facility] [address] [place] [address], [place] [phone] * (ABNORMAL) POCT Glucose, blood (08/22/2024 7:26 AM EDT) [facility] Glucose POCT 148(H) 70 - 100 mg/dL 08/22/2024 7:26 AM EDT [facility] Blood Capillary blood specimen / Unknown 08/22/2024 7:26 AM EDT 08/22/2024 7:28 AM EDT us Blayne Cooper MD LAB POINT OF CARE TE ST DOCKED DEVICE UNSOLICITED RESULTS Final Result Performing Organization Address [facility]/ZIP Co de Phone Number [facility] [address] [place] [address], [place] [phone] * (ABNORMAL) CBC auto differential (08/22/2024 6:53 AM EDT) [facility] WBC 20.2(H) 4.8 - 10.8 K/mcL LAB HEMETOLOGY METHOD 08/22/2024 7:44 AM EDT [facility] RBC 4.00 3.80 - 4.80 M/mcL LAB HEMETOLOGY METHOD 08/22/2024 7:44 AM EDT [facility] Hemoglobin 11.8 11.5 - 16.0 g/dL LAB HEMETOLOGY METHOD 08/22/2024 7:44 AM EDT [facility] Hematocrit 37.7 35.0 - 47.0 % LAB HEMETOLOGY METHOD 08/22/2024 7:44 AM EDT [facility] MCV 93.5 79.0 - 98.0 FL LAB HEMETOLOGY METHOD 08/22/2024 7:44 AM [facility] MCH 29.3 27.0 - 32.0 pcg LAB HEMETOLOGY METHOD 08/22/2024 7:44 AM [facility] MCHC 31.3(L) 32.0 - 37.0 g/dL LAB HEMETOLOGY METHOD 08/22/2024 7:44 AM [facility] RDW 12.5 11.0 - 15.0 % LAB HEMETOLOGY METHOD 08/22/2024 7:44 AM [facility] Platelets 317 130 - 400 K/mcL LAB HEMETOLOGY METHOD 08/22/2024 7:44 AM [facility] MPV 11.1(H) 7.0 - 11.0 FL LAB HEMETOLOGY METHOD 08/22/2024 7:44 AM [facility] NRBC 0.0 <1.0 % LAB HEMETOLOGY METHOD 08/22/2024 7:44 AM [facility] NRBC Absolute 0.00 <0.10 K/mcL LAB HEMETOLOGY METHOD 08/22/2024 7:44 AM [facility] Neutrophils Relative 91.0 % LAB HEMETOLOGY METHOD 08/22/2024 7:44 AM [facility] Lymphocytes Relative 3.7 % LAB HEMETOLOGY METHOD 08/22/2024 7:44 AM [facility] Monocytes Relative 4.3 % LAB HEMETOLOGY METHOD 08/22/2024 7:44 AM [facility] Eosinophils Relative 0.0 % LAB HEMETOLOGY METHOD 08/22/2024 7:44 AM [facility] Basophils Relative 0.1 % LAB HEMETOLOGY METHOD 08/22/2024 7:44 AM [facility] Immature Granulocytes Relative 0.9 % LAB HEMETOLOGY METHOD 08/22/2024 7:44 AM EDT [facility] Neutrophils Absolute 18.34(H) 1.50 - 7.00 K/[facility] LAB HEMETOLOGY METHOD 08/22/2024 7:44 AM EDT [facility] Lymphocytes Absolute 0.75(L) 1.00 - 5.00 K/mcL LAB HEMETOLOGY METHOD 08/22/2024 7:44 AM EDT [facility] Monocytes Absolute 0.86 0.20 - 1.00 K/mcL LAB HEMETOLOGY METHOD 08/22/2024 7:44 AM EDT [facility] Eosinophils Absolute 0.00 0.00 - 0.50 K/[facility] LAB HEMETOLOGY METHOD 08/22/2024 7:44 AM EDT [facility] Basophils Absolute 0.02 0.00 - 0.20 K/mcL LAB HEMETOLOGY METHOD 08/22/2024 7:44 AM EDT [facility] Immature Granulocytes Absolute 0.19(H) 0.00 - 0.03 K/mcL LAB HEMETOLOGY METHOD 08/22/2024 7:44 AM [facility] Blood Venous blood specimen / Unknown Venipuncture / Unknown 08/22/2024 6:53 AM EDT 08/22/2024 7:11 AM EDT us Fabi CAMPBELL LAB BLOOD ORDERABLES Final Re sult [facility] [address] [place] [address], * Vancomycin, trough Please draw level 1 hour prior to vancomycin administration (08/22/2024 6:53 AM EDT) Vancomycin Trough 13.0 10.0 - 20.0 mcg/mL LAB CHEMISTRY METHOD 08/22/2024 7:52 AM EDT [facility] Blood Venous blood specimen / Unknown Venipuncture / Unknown 08/22/2024 6:53 AM EDT 08/22/2024 7:11 AM EDT Mariano Coffey MD LAB BLOOD ORDERABLES Final Re sult Performing Organization Address [facility]/ZIP Co de Phone Number [facility] [address] [place] [address], [place] [phone] * Magnesium (08/22/2024 6:53 AM EDT) Pathologist [facility] Magnesium 2.1 1.9 - 2.6 mg/dL LAB CHEMISTRY METHOD 08/22/2024 7:52 AM EDT [facility] Blood Venous blood specimen / Unknown Venipuncture / Unknown 08/22/2024 6:53 AM EDT 08/22/2024 7:11 AM EDT Blayne Cooper MD LAB BLOOD ORDERABLES Final Resul t Performing Organization Address [facility]/ZIP Co de Phone Number [facility] [address] [place] [address], [place] [phone] * (ABNORMAL) Basic metabolic panel (08/22/2024 6:53 AM EDT) Pathologist [facility] Sodium 139 133 - 145 mmol/L LAB CHEMISTRY METHOD 08/22/2024 7:59 AM EDT [facility] Potassium 4.7 3.5 - 5.5 mmol/L LAB CHEMISTRY METHOD 08/22/2024 7:59 AM EDT [facility] Chloride 107 96 - 110 mmol/L LAB CHEMISTRY METHOD 08/22/2024 7:59 AM EDT [facility] CO2 30 21 - 32 mmol/L LAB CHEMISTRY METHOD 08/22/2024 7:59 AM EDT [facility] Anion Gap 2(L) 3 - 11 LAB CHEMISTRY METHOD 08/22/2024 7:59 AM EDT [facility] Glucose 154(H) 70 - 100 mg/dL LAB CHEMISTRY METHOD 08/22/2024 7:59 AM EDT [facility] BUN 13 5 - 25 mg/dL LAB CHEMISTRY METHOD 08/22/2024 7:59 AM EDT [facility] Creatinine 0.74 0.50 - 1.10 mg/dL LAB CHEMISTRY METHOD 08/22/2024 7:59 AM EDT [facility] eGFR 84 >=60 mL/min/1. 73m2 LAB CHEMISTRY METHOD 08/22/2024 7:59 AM EDT [facility] Comment:Calculation based on the??Chronic Kidney Disease Epidemiology Collaboration (CKD-EPI) equation refit??without adjustment for race. BUN/Creatinine Ratio 17.6 LAB CHEMISTRY METHOD 08/22/2024 7:59 AM EDT [facility] Calcium 9.1 8.5 - 10.5 mg/dL LAB CHEMISTRY METHOD 08/22/2024 7:59 AM EDT [facility] Blood Venous blood specimen / Unknown Venipuncture / Unknown 08/22/2024 6:53 AM EDT 08/22/2024 7:11 AM EDT us Fabi CAMPBELL LAB BLOOD ORDERABLES Final Re sult [facility] [address] [place] [address], * XR Chest 1 View (08/22/2024 5:45 AM EDT) Anatomical Region Laterality Modality Body Radiographic Jessica ging 08/22/2024 9:11 AM EDT Impressions 08/22/2024 9:21 AM EDT A small right pleural effusion has decreased in size. Otherwise no significant interval change. -------- FINAL REPORT -------- Dictated By: Jossue Benitez Dictated Date: 08/22/2024 09:11 ET Assigned Physician: Jossue Benitez Reviewed and Electronically Signed By: Jossue Benitez Signed Date: 08/22/2024 09:21 ET Workstation ID: [id number] Transcribed By: Self Edit Transcribed Date: 08/22/2024 09:11 ET Narrative 08/22/2024 9:21 AM EDT PROCEDURE: AP chest radiograph. HISTORY: s/p L decortication. COMPARISON: 08/21/2024. FINDINGS: Stable left apical chest tube. ??Unchanged patchy opacity at the left base, likely a combination of a small pleural effusion and nonspecific adjacent parenchymal opacity. ??Stable mild atelectasis at the right base. ??A small right pleural effusion has resolved. ??Unchanged cardiomediastinal contours. ??Atherosclerotic calcification of the aorta. Procedure Note Jossue Benitez MD - 08/22/2024 PROCEDURE: AP chest radiograph. HISTORY: s/p L decortication. COMPARISON: 08/21/2024. FINDINGS: Stable left apical chest tube. Unchanged patchy opacity at the left base,likely a combination of a small pleural effusion and nonspecific adjacentparenchymal opacity. Stable mild atelectasis at the right base. A smallright pleural effusion has resolved. Unchanged cardiomediastinalcontours. Atherosclerotic calcification of the aorta. IMPRESSION: A small right pleural effusion has decreased in size. Otherwise no significant interval change. -------- FINAL REPORT -------- Dictated By: Jossue Benitez Dictated Date: 08/22/2024 09:11 ET Assigned Physician: Jossue Benitez Reviewed and Electronically Signed By: Jossue Benitez Signed Date: 08/22/2024 09:21 ET Workstation ID: [id number] Transcribed By: Self Edit Transcribed Date: 08/22/2024 09:11 ET Fabi CAMPBELL IMG XR PROCEDURES Final Resul t * (ABNORMAL) POCT Glucose, blood (08/21/2024 2:50 PM EDT) Glucose POCT 165(H) 70 - 100 mg/dL 08/21/2024 2:51 PM EDT [facility] Blood Capillary blood specimen / Unknown 08/21/2024 2:50 PM EDT 08/21/2024 2:52 PM EDT us Mariano Coffey MD LAB POINT OF CARE TE ST DOCKED DEVICE UNSOLICITED RESULTS Final Result [facility]) [facility] [address] [place] [address], [place] [phone] * Concentration (08/21/2024 2:34 PM EDT) AFB Concentration Performed 3:05 PM EDT [facility] Tissue Structure of left pleural cavity / Unknown Non-blood Collection / Unknown 08/21/2024 2:34 PM EDT 08/21/2024 3:43 PM EDT Narrative [facility] - 08/24/2024 3:05 PM EDT Performed at: ??01 - [facility] [address] ??[id number] [employer]er: Ivis Colmenares MD, Phone: ??[phone] us Geraldo Gomez MD LAB BLOOD ORDERABLES Final Resul t [facility] * Acid fast bacilli stain (08/21/2024 2:34 PM EDT) AFB Stain Result No Acid fast bacilli seen on direct smear (Fuchsin method, 1000x) No Acid Fast Bacilli seen on direct smear 08/21/2024 5:53 PM EDT [facility] Tissue Structure of left pleural cavity / Unknown Non-blood Collection / Unknown 08/21/2024 2:34 PM EDT 08/21/2024 3:43 PM EDT us Geraldo Gomez MD LAB MICROBIOLOGY - GENERAL ORDER ARELY Final Result [facility] [address] [place] [address], * XR Chest 1 View (08/21/2024 1:08 PM EDT) Anatomical Region Laterality Modality Body Radiographic Jessica ging 08/21/2024 1:21 PM EDT Impressions 08/21/2024 1:32 PM EDT 1. ??New left chest tube with removal of a left pigtail pleural drainage catheter. ??Suggestion of a small left apical pneumothorax. 2. ??Interval increased pleural prominence in the lower hemithoraces, suggesting small pleural effusions. ??Lobulated contour on the right suggesting loculation. -------- FINAL REPORT -------- Dictated By: Jossue Benitez Dictated Date: 08/21/2024 13:21 ET Assigned Physician: Jossue Benitez Reviewed and Electronically Signed By: Jossue Benitez Signed Date: 08/21/2024 13:32 ET Workstation ID: [id number] Transcribed By: Self Edit Transcribed Date: 08/21/2024 13:24 ET Narrative 08/21/2024 1:32 PM EDT PROCEDURE: AP chest radiograph. HISTORY: s/p L decortication. in PACU. COMPARISON: 08/21/2024. FINDINGS: The left apical chest tube. ??Suggestion of a small left apical pneumothorax. ??Left basilar pigtail pleural drainage catheter is been removed. ??There is slightly increased pleural prominence along the lateral left hemithorax. ??Irregular pleural thickening along the inferior right hemithorax with blunting of the right costophrenic angle which also appears more prominent compared with the previous study. ??Unchanged cardiomediastinal contours. Procedure Note Jossue Benitez MD - 08/21/2024 PROCEDURE: AP chest radiograph. HISTORY: s/p L decortication. in PACU. COMPARISON: 08/21/2024. FINDINGS: The left apical chest tube. Suggestion of a small left apicalpneumothorax. Left basilar pigtail pleural drainage catheter is beenremoved. There is slightly increased pleural prominence along the lateralleft hemithorax. Irregular pleural thickening along the inferior righthemithorax with blunting of the right costophrenic angle which alsoappears more prominent compared with the previous study. Unchangedcardiomediastinal contours. IMPRESSION: 1. New left chest tube with removal of a left pigtail pleural drainagecatheter. Suggestion of a small left apical pneumothorax. 2. Interval increased pleural prominence in the lower hemithoraces,suggesting small pleural effusions. Lobulated contour on the rightsuggesting loculation. -------- FINAL REPORT -------- Dictated By: Jossue Benitez Dictated Date: 08/21/2024 13:21 ET Assigned Physician: Jossue Benitez Reviewed and Electronically Signed By: Jossue Benitez Signed Date: 08/21/2024 13:32 ET Workstation ID: [id number] Transcribed By: Self Edit Transcribed Date: 08/21/2024 13:24 ET us Fabi CAMPBELL IMG XR PROCEDURES Final Resul t * Culture tissue with gram stain (08/21/2024 11:21 AM EDT) Culture, Tissue No growth aerobically and anaerobically at 5 days. 08/26/2024 7:59 AM EDT [facility] Gram Stain Result Few Polymorphonuclear leukocytes 08/26/2024 7:59 AM EDT [facility] Gram Stain Result No organisms seen 08/26/2024 7:59 AM EDT [facility] Gram Stain Result No epithelial cells seen 08/26/2024 7:59 AM EDT [facility] Tissue Structure of left pleural cavity / Unknown 08/21/2024 11:21 AM EDT 08/21/2024 1:03 PM EDT us Geraldo Gomez MD LAB MICROBIOLOGY - GENERAL ORDER ARELY Final Result [facility] [address] [place] [address], [place] [phone] * Culture fungal, other (08/21/2024 11:21 AM EDT) Culture, Fungus Negative for Fungus after 4 Weeks 08/26/2024 10:28 AM EDT [facility] Tissue Structure of left pleural cavity / Unknown 08/21/2024 11:21 AM EDT 08/21/2024 1:03 PM EDT Geraldo Gomez MD LAB MICROBIOLOGY - GENERAL ORDER ARELY Final Result [facility] [address] [place] [address], [place] [phone] * Tissue exam (08/21/2024 11:10 AM EDT) Final Diagnosis Pleural Cavity, Left-biopsy: -BENIGN FIBROUS PLEURAL PLAQUE 3:50 PM EDT [facility] Comment Immunohistology support the diagnosis. Keratin stains NORY and AE1-3 highlight layering of bland mesothelial cells in the plaque. MALINDA-3 is negative. 3:50 PM EDT [facility] Gross Description A. Pleural Cavity, Left, : Labeled left pleura . Received in formalin is a rubbery, white, elongate, 1.6 x 0.3 x 0.1 cm tissue fibromembranous portion of tissue which is wrapped in paper and submitted in toto in one cassette, one piece, multiple levels. TS 3:50 PM EDT [facility] Disclaimer The immunohistochemistry stains were medically necessary and performed because the additional information was needed by the pathologist to evaluate the mesothelial cell distribution. The immunohistochemical tests and in situ hybridization tests were developed and their performance characteristics were determined by [facility]. They have not been cleared or approved by the U.S. Food and Drug Administration. The FDA has determined that such clearance or approval is not necessary. These tests are used for clinical purposes. They should not be regarded as investigational or for research. This laboratory is certified under the Clinical Laboratory Improvement Amendments of 1988 (CLIA) as qualified to perform high complexity clinical laboratory testing. (controls appropriate) Unless otherwise specified, all tissue is 10% NB formalin fixed and paraffin embedded. 3:50 PM EDT [facility] Tissue Structure of left pleural cavity / Unknown 08/21/2024 11:10 AM EDT 08/23/2024 7:20 AM EDT us Geraldo Gomez MD LAB PATHOLOGY ORDERABLES Final R esult [facility] [address] [place] [id number], * Non-gynecologic cytology (08/21/2024 11:01 AM EDT) Final Diagnosis A. Pleural fluid left-thoracentes is (ThinPrep, cell block): No malignant cells identified 08/24/2024 12:58 PM EDT [facility] Specimen A Adequacy Satisfactory for evaluation 08/24/2024 12:58 PM EDT [facility] Gross Description A. Pleural Cavity, Left, left pleural fluid: Received 5 ml of red cloudy fluid; 1 ThinPrep, 1 Cell block Cell block in formalin @0900; total formalin fixation time 12 hours. 08/24/2024 12:58 PM EDT [facility] Disclaimer Unless otherwise specified, all tissue is 10% NB formalin fixed and paraffin embedded. Technical cytopathology services provided by [facility], at [address] [place] [address] (CLIA # [id number]/Lisa Sánchez MD, Page Technician.) 08/24/2024 12:58 PM EDT [facility] Pleural Fluid Structure of left pleural cavity / Unknown 08/21/2024 11:01 AM EDT 08/23/2024 8:47 AM EDT us Geraldo Gomez MD LAB CYTOLOGY ORDERABLES Final Re sult [facility] [address] [place] [address], [place] [phone] * MRSA molecular study (08/21/2024 9:30 AM EDT) Pathologist [facility] MRSA Screen PCR Not Detected Not Detected LAB MICROBIOLOGY METHOD 08/21/2024 11:48 AM EDT [facility] Swab Both anterior nares / Unknown Non-blood Collection / Unknown 08/21/2024 9:30 AM EDT 08/21/2024 10:07 AM EDT us Blayne Cooper MD LAB MICROBIOLOGY - GENERAL ORDER ARELY Final Result Performing Organization Address City/[facility]/ZIP Co de Phone Number [facility] [address] [place] [address], [place] [phone] * (ABNORMAL) POCT Glucose, blood (08/21/2024 7:58 AM EDT) Glucose POCT 161(H) 70 - 100 mg/dL 08/21/2024 7:59 AM EDT [facility] Blood Capillary blood specimen / Unknown 08/21/2024 7:58 AM EDT 08/21/2024 8:00 AM EDT us Blayne Cooper MD LAB POINT OF CARE TE ST DOCKED DEVICE UNSOLICITED RESULTS Final Result [facility] [address] [place] [address], [place] [phone] * XR Chest 1 View (08/21/2024 5:55 AM EDT) Anatomical Region Laterality Modality Body Radiographic Jessica ging 08/21/2024 8:55 AM EDT Impressions 08/21/2024 8:56 AM EDT Mild pulmonary vascular congestion. ??A trace left apical pneumothorax is no longer seen. ??Unchanged opacity at the left base. -------- FINAL REPORT -------- Dictated By: Jossue Benitez Dictated Date: 08/21/2024 08:55 ET Assigned Physician: Jossue Benitez Reviewed and Electronically Signed By: Jossue Benitez Signed Date: 08/21/2024 08:56 ET Workstation ID: [id number] Transcribed By: Self Edit Transcribed Date: 08/21/2024 08:55 ET Narrative 08/21/2024 8:56 AM EDT PROCEDURE: AP chest radiograph. HISTORY: Left loculated pleural effusion. COMPARISON: 08/21/2023. FINDINGS: Stable left basilar pigtail pleural drainage catheter and stable left basilar opacity. ??A previously demonstrated trace left apical pneumothorax is no longer visible. ??Unchanged cardiomediastinal contours. ??Atherosclerotic calcification of the aorta. ??Mild pulmonary vascular congestion. Procedure Note Jossue Benitez MD - 08/21/2024 PROCEDURE: AP chest radiograph. HISTORY: Left loculated pleural effusion. COMPARISON: 08/21/2023. FINDINGS: Stable left basilar pigtail pleural drainage catheter and stable leftbasilar opacity. A previously demonstrated trace left apical pneumothoraxis no longer visible. Unchanged cardiomediastinal contours.Atherosclerotic calcification of the aorta. Mild pulmonary vascularcongestion. IMPRESSION: Mild pulmonary vascular congestion. A trace left apical pneumothorax isno longer seen. Unchanged opacity at the left base. -------- FINAL REPORT -------- Dictated By: Jossue Benitez Dictated Date: 08/21/2024 08:55 ET Assigned Physician: Jossue Benitez Reviewed and Electronically Signed By: Jossue Benitez Signed Date: 08/21/2024 08:56 ET Workstation ID: [id number] Transcribed By: Self Edit Transcribed Date: 08/21/2024 08:55 ET us Adri CAMPBELL IMG XR PROCEDURES Final Resul t * (ABNORMAL) CBC auto differential (08/21/2024 5:54 AM EDT) WBC 9.7 4.8 - 10.8 K/mcL LAB HEMETOLOGY METHOD 08/21/2024 7:07 AM [facility] RBC 4.40 3.80 - 4.80 M/mcL LAB HEMETOLOGY METHOD 08/21/2024 7:07 AM [facility] Hemoglobin 13.2 11.5 - 16.0 g/dL LAB HEMETOLOGY METHOD 08/21/2024 7:07 AM [facility] Hematocrit 40.7 35.0 - 47.0 % LAB HEMETOLOGY METHOD 08/21/2024 7:07 AM [facility] MCV 92.9 79.0 - 98.0 FL LAB HEMETOLOGY METHOD 08/21/2024 7:07 AM [facility] MCH 30.1 27.0 - 32.0 pcg LAB HEMETOLOGY METHOD 08/21/2024 7:07 AM [facility] MCHC 32.4 32.0 - 37.0 g/dL LAB HEMETOLOGY METHOD 08/21/2024 7:07 AM [facility] RDW 12.3 11.0 - 15.0 % LAB HEMETOLOGY METHOD 08/21/2024 7:07 AM [facility] Platelets 314 130 - 400 K/mcL LAB HEMETOLOGY METHOD 08/21/2024 7:07 AM [facility] MPV 11.2(H) 7.0 - 11.0 FL LAB HEMETOLOGY METHOD 08/21/2024 7:07 AM [facility] NRBC 0.0 <1.0 % LAB HEMETOLOGY METHOD 08/21/2024 7:07 AM [facility] NRBC Absolute 0.00 <0.10 K/mcL LAB HEMETOLOGY METHOD 08/21/2024 7:07 AM [facility] Neutrophils Relative 92.9 % LAB HEMETOLOGY METHOD 08/21/2024 7:07 AM [facility] Lymphocytes Relative 4.7 % LAB HEMETOLOGY METHOD 08/21/2024 7:07 AM [facility] Monocytes Relative 0.9 % LAB HEMETOLOGY METHOD 08/21/2024 7:07 AM [facility] Eosinophils Relative 0.9 % LAB HEMETOLOGY METHOD 08/21/2024 7:07 AM [facility] Basophils Relative 0.3 % LAB HEMETOLOGY METHOD 08/21/2024 7:07 AM [facility] Immature Granulocytes Relative 0.3 % LAB HEMETOLOGY METHOD 08/21/2024 7:07 AM [facility] Neutrophils Absolute 9.02(H) 1.50 - 7.00 K/mcL LAB HEMETOLOGY METHOD 08/21/2024 7:07 AM [facility] Lymphocytes Absolute 0.46(L) 1.00 - 5.00 K/mcL LAB HEMETOLOGY METHOD 08/21/2024 7:07 AM [facility] Monocytes Absolute 0.09(L) 0.20 - 1.00 K/mcL LAB HEMETOLOGY METHOD 08/21/2024 7:07 AM [facility] Eosinophils Absolute 0.09 0.00 - 0.50 K/mcL LAB HEMETOLOGY METHOD 08/21/2024 7:07 AM [facility] Basophils Absolute 0.03 0.00 - 0.20 K/mcL LAB HEMETOLOGY METHOD 08/21/2024 7:07 AM EDT [facility] Immature Granulocytes Absolute 0.03 0.00 - 0.03 K/[facility] LAB HEMETOLOGY METHOD 08/21/2024 7:07 AM EDT [facility] Blood Venous blood specimen / Unknown Venipuncture / Unknown 08/21/2024 5:54 AM EDT 08/21/2024 6:43 AM EDT Adri CAMPBELL LAB BLOOD ORDERABLES Final Re sult [facility] [address] [place] [address], [place] [phone] * Magnesium (08/21/2024 5:54 AM EDT) Magnesium 2.0 1.9 - 2.6 mg/dL LAB CHEMISTRY METHOD 08/21/2024 7:28 AM EDT [facility] Blood Venous blood specimen / Unknown Venipuncture / Unknown 08/21/2024 5:54 AM EDT 08/21/2024 6:44 AM EDT Adri CAMPBELL LAB BLOOD ORDERABLES Final Re sult [facility] [address] [place] [address], [place] [phone] * (ABNORMAL) Basic metabolic panel (08/21/2024 5:54 AM EDT) Sodium 136 133 - 145 mmol/L LAB CHEMISTRY METHOD 08/21/2024 7:28 AM EDT [facility] Potassium 4.4 3.5 - 5.5 mmol/L LAB CHEMISTRY METHOD 08/21/2024 7:28 AM EDT [facility] Chloride 106 96 - 110 mmol/L LAB CHEMISTRY METHOD 08/21/2024 7:28 AM [facility] CO2 25 21 - 32 mmol/L LAB CHEMISTRY METHOD 08/21/2024 7:28 AM [facility] Anion Gap 5 3 - 11 LAB CHEMISTRY METHOD 08/21/2024 7:28 AM [facility] Glucose 160(H) 70 - 100 mg/dL LAB CHEMISTRY METHOD 08/21/2024 7:28 AM [facility] BUN 14 5 - 25 mg/dL LAB CHEMISTRY METHOD 08/21/2024 7:28 AM [facility] Creatinine 0.72 0.50 - 1.10 mg/dL LAB CHEMISTRY METHOD 08/21/2024 7:28 AM [facility] eGFR 87 >=60 mL/min/1. 73m2 LAB CHEMISTRY METHOD 08/21/2024 7:28 AM [facility] Comment:Calculation based on the??Chronic Kidney Disease Epidemiology Collaboration (CKD-EPI) equation refit??without adjustment for race. BUN/Creatinine Ratio 19.4 LAB CHEMISTRY METHOD 08/21/2024 7:28 AM [facility] Calcium 9.4 8.5 - 10.5 mg/dL LAB CHEMISTRY METHOD 08/21/2024 7:28 AM [facility] Blood Venous blood specimen / Unknown Venipuncture / Unknown 08/21/2024 5:54 AM EDT 08/21/2024 6:44 AM EDT us Adri CAMPBELL LAB BLOOD ORDERABLES Final Re sult [facility] [address] [place] [address], * ECG-Annotated (08/21/2024) us Provider Onbase ECG ORDERABLES Final Result * XR Chest 1 View (08/20/2024 10:33 PM EDT) Anatomical Region Laterality Modality Body Radiographic Jessica ging 08/21/2024 8:53 AM EDT Impressions 08/21/2024 8:55 AM EDT New left basilar pigtail pleural drainage catheter. ??Unchanged opacity at the left base, which could represent a combination of a pleural effusion and adjacent atelectasis and/or pneumonia. ??There is suggestion of a trace left apical pneumothorax. -------- FINAL REPORT -------- Dictated By: Jossue Benitez Dictated Date: 08/21/2024 08:53 ET Assigned Physician: Jossue Benitez Reviewed and Electronically Signed By: Jossue Benitez Signed Date: 08/21/2024 08:55 ET Workstation ID: [id number] Transcribed By: Self Edit Transcribed Date: 08/21/2024 08:53 ET Narrative 08/21/2024 8:55 AM EDT PROCEDURE: AP chest radiograph. HISTORY: chest pain, sob. COMPARISON: 08/20/2024. FINDINGS: New left basilar pigtail pleural drainage catheter. ??There is persistent opacity at the left base. ??This could represent a small pleural effusion and adjacent atelectasis. ??A curvilinear interface at the left lung apex suggests a trace pneumothorax. ??Unchanged cardiomediastinal contours. Procedure Note Jossue Benitez MD - 08/21/2024 PROCEDURE: AP chest radiograph. HISTORY: chest pain, sob. COMPARISON: 08/20/2024. FINDINGS: New left basilar pigtail pleural drainage catheter. There is persistentopacity at the left base. This could represent a small pleural effusionand adjacent atelectasis. A curvilinear interface at the left lung apexsuggests a trace pneumothorax. Unchanged cardiomediastinal contours. IMPRESSION: New left basilar pigtail pleural drainage catheter. Unchanged opacity atthe left base, which could represent a combination of a pleural effusionand adjacent atelectasis and/or pneumonia. There is suggestion of a traceleft apical pneumothorax. -------- FINAL REPORT -------- Dictated By: Jossue Benitez Dictated Date: 08/21/2024 08:53 ET Assigned Physician: Jossue Benitez Reviewed and Electronically Signed By: Jossue Benitez Signed Date: 08/21/2024 08:55 ET Workstation ID: [id number] Transcribed By: Self Edit Transcribed Date: 08/21/2024 08:53 ET Adri CAMPBELL IMG XR PROCEDURES Final Resul t * (ABNORMAL) POCT Glucose, blood (08/20/2024 8:56 PM EDT) [facility] Glucose POCT 139(H) 70 - 100 mg/dL 08/20/2024 8:56 PM EDT [facility] Blood Capillary blood specimen / Unknown 08/20/2024 8:56 PM EDT 08/20/2024 8:57 PM EDT Mariano Coffey MD LAB POINT OF CARE TE ST DOCKED DEVICE UNSOLICITED RESULTS Final Result [facility] [address] [place] [address], * Troponin I high sensitivity (08/20/2024 7:13 PM EDT) [facility] High Sensitivity Troponin I 8 <=54 ng/L LAB CHEMISTRY METHOD 08/20/2024 8:03 PM EDT [facility] Blood Venous blood specimen / Unknown Venipuncture / Unknown 08/20/2024 7:13 PM EDT 08/20/2024 7:31 PM EDT Narrative [facility] - 08/20/2024 8:03 PM EDT High levels of biotin in samples may falsely decrease hsTroponin values. ??Use caution when interpreting hsTroponin results in patients taking biotin who exhibit renal impairment (eGFR <60) or in patients taking more than 20 mg/day of biotin. Adri CAMPBELL LAB BLOOD ORDERABLES Final Re sult Performing Organization Address City/[facility] Co de Phone Number [facility]) [facility] [address] [place] [address], * ECG 12 lead - Procedural (No Charge) (08/20/2024 7:07 PM EDT) Ventricular Rate ECG 66 BPM GEMUSE Atrial Rate 66 BPM GEMUSE P-R Interval 154 ms GEMUSE QRS Duration 146 ms GEMUSE Q-T Interval 440 ms GEMUSE QTc 461 ms GEMUSE P Wave Ovalo 38 degrees GEMUSE R Ovalo 0 degrees GEMUSE T Ovalo 21 degrees GEMUSE ECG Interpretation Normal sinus rhythm Right bundle branch block Abnormal ECG When compared with ECG of 20-AUG-2024 11:50, (unconfirmed) No significant change was found Confirmed by BALTA PEOPLES ([id number]) on 08/21/2024 11:30:30 AM GEMUSE 08/20/2024 7:07 PM EDT 08/21/2024 11:30 AM EDT Mariano Coffey MD ECG ORDERABLES Final Result Performing Organization Address [facility] de Phone Number GEMUSE * Type and screen (08/20/2024 7:05 PM EDT) ABO Group O 08/20/2024 8:27 PM EDT [facility] Rh Type Positive 08/20/2024 8:27 PM EDT [facility] Antibody Screen Negative 08/20/2024 8:27 PM EDT [facility] Blood Venous blood specimen / Unknown Venipuncture / Unknown 08/20/2024 7:05 PM EDT 08/20/2024 7:32 PM EDT Jose E CAMPBELL LAB BLOOD BANK TEST ORDE RABLES Final Result Performing Organization Address City/[facility] Co de Phone Number [facility] [address] [place] [address], * IR Pleural Drain Insert Cath w Image Guidance Left (08/20/2024 6:07 PM EDT) Anatomical Region Laterality Modality Left Interventional R adiology 08/20/2024 6:00 PM EDT Impressions 08/20/2024 6:[address]-guided placement of left pleural drainage catheter -------- FINAL REPORT -------- Dictated By: Jose Cruz Ramirez Dictated Date: 08/20/2024 18:00 ET Assigned Physician: Jose Cruz Ramirez Reviewed and Electronically Signed By: Jose Cruz Ramirez Signed Date: 08/20/2024 18:03 ET Workstation ID: [id number] Transcribed By: Self Edit Transcribed Date: 08/20/2024 18:00 ET Narrative 08/20/2024 6:03 PM EDT HISTORY: Left loculated pleural effusion with concern for empyema Dose reduction techniques utilized including automated exposure control (mA and kVp adjusted according to patient's size). Iterative reconstruction techniques utilized. DLP: 5:30 mGy-cm. PROCEDURE/FINDINGS: Preliminary CT scanning performed through the chest without IV contrast assessing area of previously defined concern, this demonstrates small-moderate loculated left pleural effusion with associated atelectasis. Moderate intravenous sedation was initiated and maintained for 30 minutes while the patient was independently monitored by the radiology nurse under the supervision of the interventional radiologist utilizing FENTANYL and VERSED Skin overlying the left lateral chest wall was marked then prepped and draped sterilely. Buffered lidocaine anesthetic placed. ??The left pleural space was accessed with a 19-gauge needle. ??Serous appearing fluid was encountered. ??The tract was dilated and a 12 pigtail drainage catheter was placed. ??Images demonstrate satisfactory position of the tube. ??The catheter was secured with suture and a dressing was applied. ??The catheter was maintained to Pleur-evac suction . ??Samples were sent as requested. ??Patient tolerated procedure well. No immediate complication. Procedure Note Jose Cruz Ramirez MD - 08/20/2024 HISTORY: Left loculated pleural effusion with concern for empyema Dose reduction techniques utilized including automated exposure control(mA and kVp adjusted according to patient's size). Iterativereconstruction techniques utilized. DLP: 5:30 mGy-cm. PROCEDURE/FINDINGS: Preliminary CT scanning performed through the chestwithout IV contrast assessing area of previously defined concern, thisdemonstrates small-moderate loculated left pleural effusion withassociated atelectasis. Moderate intravenous sedation was initiated and maintained for 30 minuteswhile the patient was independently monitored by the radiology nurse underthe supervision of the interventional radiologist utilizing FENTANYL andVERSED Skin overlying the left lateral chest wall was marked then prepped anddraped sterilely. Buffered lidocaine anesthetic placed. The left pleuralspace was accessed with a 19-gauge needle. Serous appearing fluid wasencountered. The tract was dilated and a 12 pigtail drainage catheter wasplaced. Images demonstrate satisfactory position of the tube. Thecatheter was secured with suture and a dressing was applied. The catheterwas maintained to Pleur-evac suction . Samples were sent as requested.Patient tolerated procedure well. No immediate complication. IMPRESSION: CT-guided placement of left pleural drainage catheter -------- FINAL REPORT -------- Dictated By: Jose Cruz Ramirez Dictated Date: 08/20/2024 18:00 ET Assigned Physician: Jose Cruz Ramirez Reviewed and Electronically Signed By: Jose Cruz Ramirez Signed Date: 08/20/2024 18:03 ET Workstation ID: [id number] Transcribed By: Self Edit Transcribed Date: 08/20/2024 18:00 ET Jose E CAMPBELL IMG IR PROCEDURES Final Result * Differential body fluid (08/20/2024 6:03 PM EDT) Fluid Neutrophils % 2 % 08/20/2024 7:55 PM EDT [facility] Fluid Lymphocytes % 30 % 08/20/2024 7:55 PM EDT [facility] Fluid Monocytes/Macrop hages 4 % 08/20/2024 7:55 PM EDT [facility] Fluid Eosinophils % 61 % 08/20/2024 7:55 PM EDT [facility] Fluid Basophils % 3 % 08/20/2024 7:55 PM EDT [facility] Fluid Other Cells % 0 % 08/20/2024 7:55 PM EDT [facility] Pleural Fluid Structure of left pleural cavity / Unknown Non-blood Collection / Unknown 08/20/2024 6:03 PM EDT 08/20/2024 6:31 PM EDT Narrative [facility] - 08/20/2024 7:55 PM EDT No reference ranges have been established for body fluids. Clinical correlation recommended. us Jose E CAMPBELL LAB BODY FLUIDS AND STOO LS ORDERABLES Final Result [facility] [address] [place] [address], * Non-gynecologic cytology (08/20/2024 6:03 PM EDT) Final Diagnosis Pleural fluid left-thoracentes is (ThinPrep, cell block): No malignant cells identified Acute inflammation present. 08/24/2024 1:09 PM EDT [facility] Specimen A Adequacy Satisfactory for evaluation 08/24/2024 1:09 PM EDT [facility] Gross Description A. Pleural Cavity, Left, Left pleural fluid: Received 7 ml of yellow fluid; 1 ThinPrep, 1 Cell block Cell block in formalin @0900; total formalin fixation time 12 hours. 08/24/2024 1:09 PM EDT [facility] Disclaimer Unless otherwise specified, all tissue is 10% NB formalin fixed and paraffin embedded. Technical cytopathology services provided by [facility], at [address] [place] [id number] (CLIA # [id number]/Lisa Sánchez MD, Page Technician.) 08/24/2024 1:09 PM EDT [facility] Pleural Fluid Structure of left pleural cavity / Unknown Non-blood Collection / Unknown 08/20/2024 6:03 PM EDT 08/23/2024 9:19 AM EDT Jose E CAMPBELL LAB CYTOLOGY ORDERABLES Final Result Performing Organization Address [facility]/ZIP Co de Phone Number [facility] [address] [place] [address], [place] [phone] * Cell count with reflex differential, body fluid (08/20/2024 6:03 PM EDT) Body Fluid Total Nucleated Cells 8,107 /mm3 LAB HEMETOLOGY METHOD 08/20/2024 7:55 PM EDT [facility] Body Fluid RBC 6,000 /mm3 LAB HEMETOLOGY METHOD 08/20/2024 7:55 PM EDT [facility] Body Fluid Color Kaylee 08/20/2024 7:55 PM EDT [facility] Body Fluid Clarity Cloudy 08/20/2024 7:55 PM EDT [facility] Body Fluid Source Pleural 08/20/2024 7:55 PM EDT [facility] Pleural Fluid Structure of left pleural cavity / Unknown Non-blood Collection / Unknown 08/20/2024 6:03 PM EDT 08/20/2024 6:31 PM EDT Narrative [facility] - 08/20/2024 7:55 PM EDT No reference ranges have been established for body fluids. Clinical correlation recommended. us Jose E CAMPBELL LAB BODY FLUIDS AND STOO LS ORDERABLES Final Result Performing Organization Address [facility]/ZIP Co de Phone Number [facility] [address] [place] [address], [place] [phone] * Glucose, body fluid (08/20/2024 6:03 PM EDT) Glucose, Fluid 108 See Comment mg/dL LAB CHEMISTRY METHOD 08/20/2024 7:26 PM EDT [facility] Pleural Fluid Structure of left pleural cavity / Unknown Non-blood Collection / Unknown 08/20/2024 6:03 PM EDT 08/20/2024 6:31 PM EDT [facility] - 08/20/2024 7:26 PM EDT No reference ranges have been established for body fluids. Clinical correlation recommended. us Jose E CAMPBELL LAB BODY FLUIDS AND STOO LS ORDERABLES Final Result Performing Organization Address [facility]/ZIP Co de Phone Number [facility] [address] [place] [address], [place] [phone] * Protein, body fluid (08/20/2024 6:03 PM EDT) Protein, Fluid 5.2 See Comment g/dL LAB CHEMISTRY METHOD 08/20/2024 7:26 PM EDT [facility] Pleural Fluid Structure of left pleural cavity / Unknown Non-blood Collection / Unknown 08/20/2024 6:03 PM EDT 08/20/2024 6:31 PM EDT [facility] - 08/20/2024 7:26 PM EDT No reference ranges have been established for body fluids. Clinical correlation recommended. us Jose E CAMPBELL LAB BODY FLUIDS AND STOO LS ORDERABLES Final Result [facility] [address] [place] [address], [place] [phone] * Lactate dehydrogenase, body fluid (08/20/2024 6:03 PM EDT) LD, Fluid 266 See Comment unit/L LAB CHEMISTRY METHOD 08/20/2024 7:26 PM EDT [facility] Pleural Fluid Structure of left pleural cavity / Unknown Non-blood Collection / Unknown 08/20/2024 6:03 PM EDT 08/20/2024 6:31 PM EDT Narrative [facility] - 08/20/2024 7:26 PM EDT No reference ranges have been established for body fluids. Clinical correlation recommended. Jose E CAMPBELL LAB BODY FLUIDS AND STOO LS ORDERABLES Final Result Performing Organization Address City/[facility]/ZIP Co de Phone Number [facility] [address] [place] [address], [place] [phone] * (ABNORMAL) Culture body fluid with gram stain (08/20/2024 6:03 PM EDT) Fluid Culture No growth at 3 days LAB MICROBIOLOGY METHOD 08/23/2024 10:54 AM EDT [facility] Gram Stain Result Many Polymorphonuclear leukocytes(A) 08/23/2024 10:54 AM EDT [facility] Gram Stain Result No Epithelial cells(A) 08/23/2024 10:54 AM EDT [facility] Gram Stain Result Few Gram positive cocci in pairs and clusters(A) 08/23/2024 10:54 AM EDT [facility] Pleural Fluid Structure of left pleural cavity / Unknown Non-blood Collection / Unknown 08/20/2024 6:03 PM EDT 08/20/2024 6:30 PM EDT Jose E CAMPBELL LAB MICROBIOLOGY - GENER AL ORDERABLES Final Result [facility] [address] [place] [address], [place] [phone] * MRSA molecular study (08/20/2024 3:24 PM EDT) MRSA Screen PCR Not Detected Not Detected LAB MICROBIOLOGY METHOD 08/20/2024 5:04 PM EDT [facility] Swab Both anterior nares / Unknown Non-blood Collection / Unknown 08/20/2024 3:24 PM EDT 08/20/2024 3:35 PM EDT Yessy Yost Cosme DO LAB MICROBIOLOGY - GENERA L ORDERABLES Final Result [facility] [address] [place] [address], [place] [phone] * CT Chest w Contrast (08/20/2024 2:13 PM EDT) Anatomical Region Laterality Modality Body Computed Tomogra phy 08/20/2024 2:35 PM EDT Impressions 08/20/2024 2:50 PM EDT Small loculated left pleural effusion with associated atelectasis at the left lung base. ??Fluid within the esophagus places the patient at risk for aspiration. -------- FINAL REPORT -------- Dictated By: Zulay Reed Dictated Date: 08/20/2024 14:35 ET Assigned Physician: Zulay Reed Reviewed and Electronically Signed By: Zulay Reed Signed Date: 08/20/2024 14:50 ET Workstation ID: [id number] Transcribed By: Self Edit Transcribed Date: 08/20/2024 14:35 ET Narrative 08/20/2024 2:[address] CHEST WITH CONTRAST INDICATION: loculated effusion TECHNIQUE: Chest CT with intravenous administration of 90cc ISOVUE 370. Multi planar reformats were created and interpreted. The examination was performed utilizing dose reduction techniques. DLP: ??857 mGy/cm COMPARISON: ??No priors available. FINDINGS: LUNGS/PLEURA: Small loculated left pleural effusion with associated atelectasis though underlying pneumonia not excluded. MEDIASTINUM: There is a small hiatal hernia with fluid level of the thoracic inlet which places the patient at risk for aspiration. ??Tiny thyroid nodule. ??Coronary artery calcifications and mild cardiomegaly. CHEST WALL: No axillary lymphadenopathy or superficial hematoma. UPPER ABDOMEN:Cholecystectomy. BONES: No acute fracture. Scattered degenerative changes seen throughout the bones. Procedure Note Zulay Reed MD - 08/20/2024 CT CHEST WITH CONTRAST INDICATION: loculated effusion TECHNIQUE: Chest CT with intravenous administration of 90cc ISOVUE 370.Multi planar reformats were created and interpreted. The examination wasperformed utilizing dose reduction techniques. DLP: 857 mGy/cm COMPARISON: No priors available. FINDINGS: LUNGS/PLEURA: Small loculated left pleural effusion with associatedatelectasis though underlying pneumonia not excluded. MEDIASTINUM: There is a small hiatal hernia with fluid level of thethoracic inlet which places the patient at risk for aspiration. Tinythyroid nodule. Coronary artery calcifications and mild cardiomegaly. CHEST WALL: No axillary lymphadenopathy or superficial hematoma. UPPER ABDOMEN:Cholecystectomy. BONES: No acute fracture. Scattered degenerative changes seen throughoutthe bones. IMPRESSION: Small loculated left pleural effusion with associated atelectasis at theleft lung base. Fluid within the esophagus places the patient at risk foraspiration. -------- FINAL REPORT -------- Dictated By: Zulay Reed Dictated Date: 08/20/2024 14:35 ET Assigned Physician: Zulay Reed Reviewed and Electronically Signed By: Zulay Reed Signed Date: 08/20/2024 14:50 ET Workstation ID: [id number] Transcribed By: Self Edit Transcribed Date: 08/20/2024 14:35 ET us Yessy Cosme DO IMG CT PROCEDURES Final R esult * Lactate (08/20/2024 1:53 PM EDT) Lactate 0.9 0.4 - 2.0 mmol/L LAB CHEMISTRY METHOD 08/20/2024 2:39 PM EDT [facility] Blood Venous blood specimen / Unknown Venipuncture / Unknown 08/20/2024 1:53 PM EDT 08/20/2024 2:02 PM EDT us Yessy Cosme DO LAB BLOOD ORDERABLES Veronica l Result Performing Organization Address [facility] Co de Phone Number [facility] [address] [place] [address], [place] [phone] * Blood culture (08/20/2024 1:53 PM EDT) Culture, Blood No growth at 5 days 08/25/2024 3:01 PM EDT [facility] Blood Venous blood specimen / Unknown Venipuncture / Unknown 08/20/2024 1:53 PM EDT 08/20/2024 2:03 PM EDT us Yessy Cosme LAB MICROBIOLOGY - GENERA L ORDERABLES Final Result Performing Organization Address [facility] Co de Phone Number [facility] [address] [place] [address], [place] [phone] * Blood culture (08/20/2024 1:53 PM EDT) [facility] Culture, Blood No growth at 5 days 08/25/2024 3:01 PM EDT [facility] Blood Venous blood specimen / Unknown Venipuncture / Unknown 08/20/2024 1:53 PM EDT 08/20/2024 2:03 PM EDT Doc Uche [facility] LAB MICROBIOLOGY - GENERA L ORDERABLES Final Result Performing Organization Address [facility]/ZIP Co de Phone Number [facility] [address] [place] [address], [place] [phone] * (ABNORMAL) D-dimer, quantitative (08/20/2024 1:53 PM EDT) [facility] D-Dimer, Quant (D-DU) 516(H) <=230 ng/mL DDU LAB COAGULATION METHOD 08/20/2024 2:18 PM EDT [facility] Blood Venous blood specimen / Unknown Venipuncture / Unknown 08/20/2024 1:53 PM EDT 08/20/2024 2:02 PM EDT [facility] - 08/20/2024 2:18 PM EDT D-Dimer <230 ng/mL (D-Dimer units) is the threshold for exclusion of DVT/PE. D-Dimer may be elevated in: Critically ill, severely infected, trauma patients, DIC, acute CVA, acute DE, unstable angina, AF, old age, , and smoking. D-Dimer may be decreased with: Initiation of heparin therapy and oral anticoagulants. Yessy Cosme DO LAB BLOOD ORDERABLES Veronica l Result Performing Organization Address [facility] Co de Phone Number [facility] [address] [place] [address], * Troponin I high sensitivity (08/20/2024 1:53 PM EDT) [facility] High Sensitivity Troponin I 6 <=54 ng/L LAB CHEMISTRY METHOD 08/20/2024 2:39 PM EDT [facility] Blood Venous blood specimen / Unknown Venipuncture / Unknown 08/20/2024 1:53 PM EDT 08/20/2024 2:02 PM EDT [facility] - 08/20/2024 2:39 PM EDT High levels of biotin in samples may falsely decrease hsTroponin values. ??Use caution when interpreting hsTroponin results in patients taking biotin who exhibit renal impairment (eGFR <60) or in patients taking more than 20 mg/day of biotin. Chase Preston MD LAB BLOOD ORDERABLES Final Result Performing Organization Address [facility] Co de Phone Number [facility] [address] [place] [address], * XR Chest 1 View (08/20/2024 12:48 PM EDT) Anatomical Region Laterality Modality Body Radiographic Jessica ging 08/20/2024 1:07 PM EDT Impressions 08/20/2024 1:08 PM EDT FINDINGS/IMPRESSION: Left basilar consolidation and probable small effusion. ??Right lung is clear. ??No congestive heart failure. -------- FINAL REPORT -------- Dictated By: Zulay Reed Dictated Date: 08/20/2024 13:07 ET Assigned Physician: Zulay Reed Reviewed and Electronically Signed By: Zualy Reed Signed Date: 08/20/2024 13:08 ET Workstation ID: [id number] Transcribed By: Self Edit Transcribed Date: 08/20/2024 13:07 ET Narrative 08/20/2024 1:08 PM EDT XR CHEST 1 VIEW INDICATION: chest pain TECHNIQUE: XR CHEST 1 VIEW COMPARISON: No priors available. Procedure Note Zulay Reed MD - 08/20/2024 XR CHEST 1 VIEW INDICATION: chest pain TECHNIQUE: XR CHEST 1 VIEW COMPARISON: No priors available. IMPRESSION: FINDINGS/IMPRESSION: Left basilar consolidation and probable smalleffusion. Right lung is clear. No congestive heart failure. -------- FINAL REPORT -------- Dictated By: Zulay Reed Dictated Date: 08/20/2024 13:07 ET Assigned Physician: Zulay Reed Reviewed and Electronically Signed By: Zulay Reed Signed Date: 08/20/2024 13:08 ET Workstation ID: [id number] Transcribed By: Self Edit Transcribed Date: 08/20/2024 13:07 ET us Yessy Cosme DO IMG XR PROCEDURES Final R esult * (ABNORMAL) Manual differential (08/20/2024 12:11 PM EDT) Neutrophils % 68.0 % LAB HEMETOLOGY METHOD 08/20/2024 1:08 PM EDT [facility] Lymphocytes % 6.0 % LAB HEMETOLOGY METHOD 08/20/2024 1:08 PM EDT [facility] Reactive Lymphocyte 2.00 % LAB HEMETOLOGY METHOD 08/20/2024 1:08 PM [facility] Monocytes % 5.0 % LAB HEMETOLOGY METHOD 08/20/2024 1:08 PM [facility] Eosinophils % 20.0 % LAB HEMETOLOGY METHOD 08/20/2024 1:08 PM [facility] Basophils % 0.0 % LAB HEMETOLOGY METHOD 08/20/2024 1:08 PM [facility] Neutrophils Absolute Manual 8.98(H) 1.50 - 7.00 K/mcL LAB HEMETOLOGY METHOD 08/20/2024 1:08 PM [facility] Lymphocytes Absolute 0.79(L) 1.00 - 5.00 K/mcL LAB HEMETOLOGY METHOD 08/20/2024 1:08 PM [facility] Reactive Lymph Abs Manual 0.26(H) 0.00 - 0.00 lym LAB HEMETOLOGY METHOD 08/20/2024 1:08 PM [facility] Monocytes Absolute Manual 0.66 0.20 - 1.00 K/mcL LAB HEMETOLOGY METHOD 08/20/2024 1:08 PM [facility] Eosinophils Absolute Manual 2.64(H) 0.00 - 0.50 K/mcL LAB HEMETOLOGY METHOD 08/20/2024 1:08 PM [facility] Basophils Absolute Manual 0.00 0.00 - 0.20 K/mcL LAB HEMETOLOGY METHOD 08/20/2024 1:08 PM [facility] Rbc Morphology Consistent with indices Consistent with indices, Normal for Independence LAB HEMETOLOGY METHOD 08/20/2024 1:08 PM [facility] Platelet Morphology - WAM See Note(A) Normal LAB HEMETOLOGY METHOD 08/20/2024 1:08 PM [facility] Comment:PLT: Normal Blood Venous blood specimen / Unknown Venipuncture / Unknown 08/20/2024 12:11 PM EDT 08/20/2024 12:31 PM EDT Chase Preston MD LAB BLOOD ORDERABLES Final Result [facility] [address] [place] [address], * (ABNORMAL) CBC auto differential (08/20/2024 12:11 PM EDT) WBC 13.2(H) 4.8 - 10.8 K/mcL LAB HEMETOLOGY METHOD 08/20/2024 1:08 PM EDT [facility] RBC 4.60 3.80 - 4.80 M/mcL LAB HEMETOLOGY METHOD 08/20/2024 1:08 PM EDT [facility] Hemoglobin 13.7 11.5 - 16.0 g/dL LAB HEMETOLOGY METHOD 08/20/2024 1:08 PM EDT [facility] Hematocrit 41.9 35.0 - 47.0 % LAB HEMETOLOGY METHOD 08/20/2024 1:08 PM EDT [facility] MCV 91.9 79.0 - 98.0 FL LAB HEMETOLOGY METHOD 08/20/2024 1:08 PM EDT [facility] MCH 30.0 27.0 - 32.0 pcg LAB HEMETOLOGY METHOD 08/20/2024 1:08 PM EDT [facility] MCHC 32.7 32.0 - 37.0 g/dL LAB HEMETOLOGY METHOD 08/20/2024 1:08 PM EDT [facility] RDW 12.6 11.0 - 15.0 % LAB HEMETOLOGY METHOD 08/20/2024 1:08 PM EDT [facility] Platelets 323 130 - 400 K/mcL LAB HEMETOLOGY METHOD 08/20/2024 1:08 PM EDT [facility] MPV 11.5(H) 7.0 - 11.0 FL LAB HEMETOLOGY METHOD 08/20/2024 1:08 PM EDT [facility] NRBC 0.0 <1.0 % LAB HEMETOLOGY METHOD 08/20/2024 1:08 PM EDT [facility] NRBC Absolute 0.00 <0.10 K/mcL LAB HEMETOLOGY METHOD 08/20/2024 1:08 PM EDT [facility] Blood Venous blood specimen / Unknown Venipuncture / Unknown 08/20/2024 12:11 PM EDT 08/20/2024 12:31 PM EDT Chase Preston MD LAB BLOOD ORDERABLES Final Result [facility] [address] [place] [address], [place] [phone] * B-type natriuretic peptide (08/20/2024 12:11 PM EDT) Pathologist [facility] BNP 4 <=100 pcg/mL LAB CHEMISTRY METHOD 08/20/2024 1:25 PM EDT [facility] Blood Venous blood specimen / Unknown Venipuncture / Unknown 08/20/2024 12:11 PM EDT 08/20/2024 12:31 PM EDT Chase Preston MD LAB BLOOD ORDERABLES Final Result [facility] [address] [place] [address], [place] [phone] * (ABNORMAL) Magnesium (08/20/2024 12:11 PM EDT) Magnesium 1.8(L) 1.9 - 2.6 mg/dL LAB CHEMISTRY METHOD 08/20/2024 1:12 PM EDT [facility] Blood Venous blood specimen / Unknown Venipuncture / Unknown 08/20/2024 12:11 PM EDT 08/20/2024 12:31 PM EDT Chase Preston MD LAB BLOOD ORDERABLES Final Result [facility] [address] [place] [address], [place] [phone] * (ABNORMAL) Lipase (08/20/2024 12:11 PM EDT) Pathologist [facility] Lipase 98(H) 13 - 75 unit/L LAB CHEMISTRY METHOD 08/20/2024 1:12 PM EDT [facility] Blood Venous blood specimen / Unknown Venipuncture / Unknown 08/20/2024 12:11 PM EDT 08/20/2024 12:31 PM EDT Chase Preston MD LAB BLOOD ORDERABLES Final Result [facility] [address] [place] [address], [place] [phone] * Comprehensive metabolic panel (08/20/2024 12:11 PM EDT) Pathologist [facility] Sodium 137 133 - 145 mmol/L LAB CHEMISTRY METHOD 08/20/2024 1:12 PM EDT [facility] Potassium 4.1 3.5 - 5.5 mmol/L LAB CHEMISTRY METHOD 08/20/2024 1:12 PM EDT [facility] Chloride 105 96 - 110 mmol/L LAB CHEMISTRY METHOD 08/20/2024 1:12 PM EDT [facility] CO2 26 21 - 32 mmol/L LAB CHEMISTRY METHOD 08/20/2024 1:12 PM EDT [facility] Anion Gap 6 3 - 11 LAB CHEMISTRY METHOD 08/20/2024 1:12 PM [facility] Glucose 88 70 - 100 mg/dL LAB CHEMISTRY METHOD 08/20/2024 1:12 PM [facility] BUN 12 5 - 25 mg/dL LAB CHEMISTRY METHOD 08/20/2024 1:12 PM [facility] Creatinine 0.61 0.50 - 1.10 mg/dL LAB CHEMISTRY METHOD 08/20/2024 1:12 PM [facility] eGFR 93 >=60 mL/min/1. 73m2 LAB CHEMISTRY METHOD 08/20/2024 1:12 PM [facility] Comment:Calculation based on the??Chronic Kidney Disease Epidemiology Collaboration (CKD-EPI) equation refit??without adjustment for race. BUN/Creatinine Ratio 19.7 LAB CHEMISTRY METHOD 08/20/2024 1:12 PM [facility] Calcium 10.1 8.5 - 10.5 mg/dL LAB CHEMISTRY METHOD 08/20/2024 1:12 PM [facility] AST (SGOT) 21 10 - 42 unit/L LAB CHEMISTRY METHOD 08/20/2024 1:12 PM [facility] ALT (SGPT) 20 10 - 60 unit/L LAB CHEMISTRY METHOD 08/20/2024 1:12 PM [facility] Alkaline Phosphatase 93 42 - 121 unit/L LAB CHEMISTRY METHOD 08/20/2024 1:12 PM [facility] Total Protein 7.6 6.0 - 8.0 g/dL LAB CHEMISTRY METHOD 08/20/2024 1:12 PM [facility] Albumin 3.6 3.2 - 5.0 g/dL LAB CHEMISTRY METHOD 08/20/2024 1:12 PM [facility] Total Bilirubin 1.0 0.0 - 1.4 mg/dL LAB CHEMISTRY METHOD 08/20/2024 1:12 PM EDT [facility] Blood Venous blood specimen / Unknown Venipuncture / Unknown 08/20/2024 12:11 PM EDT 08/20/2024 12:31 PM EDT Chase Preston MD LAB BLOOD ORDERABLES Final Result Performing Organization Address [facility] Co de Phone Number [facility] [address] [place] [address], * Troponin I high sensitivity (08/20/2024 12:11 PM EDT) [facility] High Sensitivity Troponin I 6 <=54 ng/L LAB CHEMISTRY METHOD 08/20/2024 1:16 PM EDT [facility] Blood Venous blood specimen / Unknown Venipuncture / Unknown 08/20/2024 12:11 PM EDT 08/20/2024 12:31 PM EDT Narrative [facility] - 08/20/2024 1:16 PM EDT High levels of biotin in samples may falsely decrease hsTroponin values. ??Use caution when interpreting hsTroponin results in patients taking biotin who exhibit renal impairment (eGFR <60) or in patients taking more than 20 mg/day of biotin. Chase Preston MD LAB BLOOD ORDERABLES Final Result Performing Organization Address [facility] Co de Phone Number [facility] [address] [place] [address], [place] [phone] * ECG 12 lead (08/20/2024 11:50 AM EDT) [facility] Ventricular Rate ECG 88 BPM GEMUSE Atrial Rate 88 BPM GEMUSE P-R Interval 144 ms GEMUSE QRS Duration 132 ms GEMUSE Q-T Interval 392 ms GEMUSE QTc 474 ms GEMUSE P Wave Ovalo 38 degrees GEMUSE R Ovalo 36 degrees GEMUSE T Ovalo 18 degrees GEMUSE ECG Interpretation Normal sinus rhythm Right bundle branch block Abnormal ECG When compared with ECG of 18-JUL-2011 19:31, Right bundle branch block is now Present Criteria for Inferior infarct are no longer Present Confirmed by BALTA SERVIN ([id number]) on 08/21/2024 10:26:22 AM GEMUSE 08/20/2024 11:5 0 AM EDT 08/21/2024 10:26 AM EDT us Chase Preston MD ECG ORDERABLES Final Resul t GEMUSE documented in this encounter Visit Diagnoses Diagnosis Loculated pleural effusion- Primary Loculated pleural effusion Respiratory failure, unspecified chronicity, unspecified whether with hypoxia or hypercapnia (CMS/[facility] V24, CMS/[facility] V28) Empyema (CMS/[facility] V24, CMS/[facility] V28) documented in this encounter Admitting Diagnoses Diagnosis Loculated pleural effusion documented in this encounter Administered Medications Inactive Administered Medications - up to 3 most recent administrations Medication Order MAR Action Action Date Dose Rate Site acetaminophen (TYLENOL) tablet 1,000 mg 1,000 mg, oral, Once, On Fri08/20/24 at 1230, For 1 dose Given 08/20/2024 12:57 PM EDT 1,000 mg acetaminophen (TYLENOL) tablet 1,000 mg 1,000 mg, oral, Every 8 hours scheduled, First dose on Fri08/22/24 at 1400 Given 08/22/2024 4:03 PM EDT 1,000 mg acetaminophen (TYLENOL) tablet 1,000 mg 1,000 mg, oral, Every 8 hours, First dose (after last modification) on Fri08/23/24 at 0015 Given 08/27/2024 8:57 AM EDT 1,000 mg Given 08/26/2024 11:44 PM EDT 1,000 mg Given 08/26/2024 5:05 PM EDT 1,000 mg acetaminophen (TYLENOL) tablet 650 mg 650 mg, oral, Every 6 hours PRN, mild pain, fever - temperature GREATER than 38 C (100.4 F), Starting on Fri08/20/24 at 1605 Given 08/21/2024 3:04 PM EDT 650 mg aluminum-magnesium hydroxide-simethicone (MAALOX) 200-200-20 mg/5 mL suspension 10 mL 10 mL, oral, 4 times daily before meals and nightly, First dose on Fri08/23/24 at 1130 Given 08/27/2024 8:55 AM EDT 1 0 mL Given 08/24/2024 9:05 PM EDT 10 mL Given 08/24/2024 9:13 AM EDT 10 mL aspirin chewable tablet 81 mg 81 mg, oral, Daily, First dose on Fri08/20/24 at 2045, For 326 days Given 08/27/2024 8:56 AM EDT 81 mg Given 08/26/2024 8:52 AM EDT 81 mg Given 08/25/2024 9:24 AM EDT 81 mg atorvastatin (LIPITOR) tablet 10 mg 10 mg, oral, Daily, First dose on Fri08/20/24 at 2100 Given 08/27/2024 8:57 AM EDT 10 mg Given 08/26/2024 8:53 AM EDT 10 mg Given 08/25/2024 9:24 AM EDT 10 mg buprenorphine HCL (BUPRENEX) injection solution 0.3 mg 0.3 mg, intravenous, Every 6 hours PRN, Severe breakthrough pain, Starting on Fri08/21/24 at 1756 Given 08/21/2024 6:38 PM EDT 0.3 mg dextrose (D50W) 50% injection 12.5 g 12.5 g, intravenous, Every 15 min PRN, low blood sugar, moderate hypoglycemia *Patient is Unconscious, NPO, unable to swallow: BG 54 - 69 mg/dl*, Starting on Fri08/20/24 at 2010 dextrose (D50W) 50% injection 25 g 25 g, intravenous, Every 15 min PRN, low blood sugar, severe hypoglycemia *Patient is Unconscious, NPO, unable to swallow: BG LESS than 54 mg/dL*, Starting on Fri08/20/24 at 2010 dextrose 15 gram/60 mL oral solution 15 g 15 g, oral, Every 15 min PRN, low blood sugar, hypoglycemia *Patient conscious AND able to drink and swallow safely*, Starting on Fri08/20/24 at 2010 dextrose 15 gram/60 mL oral solution 30 g 30 g, oral, Every 15 min PRN, low blood sugar, hypoglycemia *Patient conscious AND able to drink and swallow safely*, Starting on Fri08/20/24 at 2011 dilTIAZem CD (CARDIZEM CD) 24 hr capsule 300 mg 300 mg, oral, Daily, First dose on Fri08/21/24 at 0900, Do not crush, chew, or split. Given 08/27/2024 8:56 AM EDT 300 mg Given 08/26/2024 8:52 AM EDT 300 mg Given 08/25/2024 9:24 AM EDT 300 mg diphenhydrAMINE (BENADRYL) capsule 25 mg 25 mg, oral, Once, On Fri08/21/24 at 0330, For 1 dose Given 08/21/2024 3:38 AM EDT 25 mg diphenhydrAMINE (BENADRYL) injection 25 mg 25 mg, intravenous, Once, On Fri08/21/24 at 2130, For 1 dose Given 08/21/2024 10:32 PM EDT 25 mg docusate sodium (COLACE) capsule 100 mg 100 mg, oral, 2 times daily, First dose on Fri08/22/24 at 1100 Given 08/27/2024 8:57 AM EDT 100 mg Given 08/26/2024 10:38 PM EDT 100 mg Given 08/26/2024 8:53 AM EDT 100 mg enoxaparin (LOVENOX) injection 40 mg 40 mg, subcutaneous, Daily, First dose on Fri08/21/24 at 1600, Indication: VTE/PE Prophylaxis Given 08/22/2024 9:03 AM EDT 40 mg Right Upper Abdomen Given 08/21/2024 5:15 PM EDT 40 mg Ri ght Lower Abdomen famotidine (PF) (PEPCID) injection 20 mg 20 mg, intravenous, Administer over 2 Minutes, Once, On Fri08/20/24 at 1550, For 1 dose Given 08/20/2024 4:18 PM EDT 20 mg fentaNYL (PF) (SUBLIMAZE) injection intravenous, As needed, Starting on Fri08/20/24 at 1728, Intraprocedure Given 08/20/2024 5:28 PM EDT 50 mcg heparin (UFH) injection 5,000 Units 5,000 Units, subcutaneous, Every 12 hours scheduled, First dose on Fri08/23/24 at 0900, Enter Indication for use of heparin (UFH) instead of enoxaparin (LOVENOX): (free text): increased cr, Indication: VTE Prophylaxis, Indications: Prophylaxis of Venous ThromboembolismIndications:Pr ophylaxis of Venous Thromboembolism Given 08/27/2024 9:41 AM EDT 5,000 Units Left Upper Abdomen Given 08/26/2024 10:38 PM EDT 5,000 Units Left Lower Abdomen Given 08/26/2024 8:53 AM EDT 5,000 Units R ight Upper Abdomen hydroCHLOROthiazide (MICROZIDE) capsule 12.5 mg 12.5 mg, oral, Daily, First dose on 08/21/24 at 0900 Given 08/27/2024 8:57 AM EDT 12.5 mg Given 08/26/2024 8:52 AM EDT 12.5 mg Given 08/25/2024 9:24 AM EDT 12.5 mg HYDROmorphone (PF) injection 0.2 mg 0.2 mg, intravenous, Once, On Fri08/20/24 at 2000, For 1 dose Given 08/20/2024 8:35 PM EDT 0.2 mg HYDROmorphone (PF) injection 0.5 mg 0.5 mg, intravenous, Once, On Fri08/20/24 at 1334, For 1 dose Given 08/20/2024 1:39 PM EDT 0.5 mg HYDROmorphone (PF) injection 0.5 mg 0.5 mg, intravenous, Every 3 hours PRN, severe pain, Starting on Fri08/20/24 at 2119 Given 08/21/2024 6:33 AM EDT 0.5 mg Given 08/21/2024 2:37 AM EDT 0.5 mg Given for Pain 08/20/2024 9:55 PM EDT 0.5 mg HYDROmorphone (PF) injection 0.5 mg 0.5 mg, intravenous, Every 5 min PRN, severe pain or when therapies for moderate pain were not effective, Starting on Fri08/21/24 at 1216, For 5 doses, Recovery (only) Given 08/21/2024 1:02 PM EDT 0.5 mg Given 08/21/2024 12:44 PM EDT 0.5 mg imipramine (TOFRANIL) tablet 25 mg 25 mg, oral, 2 times daily, First dose on Fri08/21/24 at 0900 Given 08/27/2024 8:56 AM EDT 25 mg Given 08/26/2024 8:52 AM EDT 25 mg Given 08/25/2024 9:24 AM EDT 25 mg insulin lispro injection 1-6 Units 1-6 Units, subcutaneous, 3 times daily before meals, First dose on Fri08/21/24 at 0730, Indication: Total Daily Dose (TDD) LESS than 40 units Correction Scale: Low Dose Administer with meal and/or mealtime dose of insulin to correct high blood glucose If mealtime insulin dose not given (e.g. patient NPO or not eating), still administer correction factor for high blood glucose Given 08/25/2024 4:55 PM EDT 3 Units Right Upper Abdomen Given 08/24/2024 3:53 PM EDT 1 Units Ri ght Lower Abdomen Given 08/23/2024 4:35 PM EDT 1 Units Ri ght Upper Arm (Back) iopamidoL (ISOVUE-370) 370 mg iodine /mL (76 %) injection 90 mL 90 mL, intravenous, Once in imaging, Starting on Fri08/20/24 at 1405, For 1 dose Given 08/20/2024 2:07 PM EDT 90 mL ipratropium-albuteroL (DUONEB) 0.5-2.5 mg/3 mL nebulizer solution 3 mL 3 mL, nebulization, Once, On Fri08/20/24 at 1554, For 1 dose Given 08/20/2024 4:18 PM EDT 3 mL ipratropium-albuteroL (DUONEB) 0.5-2.5 mg/3 mL nebulizer solution 3 mL 3 mL, nebulization, 4 times daily, First dose on Fri08/20/24 at 2000, For 7 days Given 08/27/2024 11:41 AM EDT 3 mL Given 08/27/2024 8:36 AM EDT 3 mL Given 08/26/2024 4:49 PM EDT 3 mL ketorolac (TORADOL) injection 15 mg 15 mg, intravenous, Once, On Fri08/20/24 at 1230, For 1 dose Given 08/20/2024 12:59 PM EDT 15 mg ketorolac (TORADOL) injection 15 mg 15 mg, intravenous, Every 6 hours PRN, severe breakthrough pain, Starting on Fri08/22/24 at 1043, For 48 hours Given 08/23/2024 6:01 AM EDT 15 mg Given 08/22/2024 10:27 PM EDT 15 mg Given 08/22/2024 10:54 AM EDT 15 mg lactated Ringer's infusion 100 mL/hr, intravenous, Continuous, Starting on 08/21/24 at 1245, Recovery (only) New Bag 08/21/2024 2:58 PM EDT 100 mL/hr 100 mL/hr lidocaine 4 % patch 1 patch 1 patch, Topical, Administer over 12 Hours, Daily, First dose (after last modification) on Fri08/20/24 at 2145, Apply to back. Patch Applied 08/27/2024 8:55 AM EDT 1 patch Left Lower Abdomen Patch Applied 08/26/2024 8:52 AM EDT 1 patch Back Patch Applied 08/25/2024 9:25 AM EDT 1 patch Other lidocaine with sodium bicarbonate 1 % injection As needed, Starting on Fri08/20/24 at 1730, Intraprocedure Given 08/20/2024 5:30 PM EDT 10 mL lisinopriL (PRINIVIL,ZESTRIL) tablet 40 mg 40 mg, oral, Daily, First dose on Fri08/21/24 at 0900 Given 08/27/2024 8:57 AM EDT 40 mg Given 08/26/2024 8:53 AM EDT 40 mg Given 08/25/2024 9:24 AM EDT 40 mg loratadine (CLARITIN) tablet 10 mg 10 mg, oral, Daily, First dose on Fri08/21/24 at 0900 Given 08/27/2024 8:58 AM EDT 10 mg Given 08/26/2024 8:53 AM EDT 10 mg Given 08/24/2024 9:15 AM EDT 10 mg magnesium hydroxide (MILK OF MAGNESIA) 400 mg/5 mL suspension 30 mL 30 mL, oral, Daily PRN, constipation, Starting on Fri08/20/24 at 1605, 1st line for treatment of constipation - give scheduled if no bowel movement in past 24 hours magnesium oxide (MAG-OX) tablet 400 mg 400 mg, oral, Nightly, First dose on Fri08/20/24 at 2100 Given 08/26/2024 10:39 PM EDT 400 mg Given 08/25/2024 9:16 PM EDT 400 mg Given 08/23/2024 9:31 PM EDT 400 mg melatonin tablet 6 mg 6 mg, oral, Nightly PRN, insomnia, Starting on Aaliyah 08/26/24 at 0430 Given 08/26/2024 4:46 AM EDT 6 mg methylPREDNISolone sodium succ (SOLU-Medrol) injection 40 mg 40 mg, intravenous, Every 8 hours, First dose on Fri08/20/24 at 2215, Reconstitute each 40 mg vial with 1 mL sterile water for injection to a concentration of 40 mg/mL. Given 08/21/2024 3:09 PM EDT 40 mg Given 08/21/2024 6:33 AM EDT 40 mg Given 08/20/2024 10:43 PM EDT 40 mg midazolam (VERSED) injection intravenous, As needed, Starting on Fri08/20/24 at 1713, Intraprocedure Given 08/20/2024 5:29 PM EDT 1 mg Given 08/20/2024 5:13 PM EDT 1 mg midodrine (PROAMATINE) tablet 2.5 mg 2.5 mg, oral, 3 times daily before meals, First dose on 08/22/24 at 1230, Hold for SBP>100 Given 08/22/2024 4:03 PM EDT 2.5 mg Given 08/22/2024 12:29 PM EDT 2.5 mg morphine injection 4 mg 4 mg, intravenous, Once, On Fri08/20/24 at 1231, For 1 dose Given 08/20/2024 12:59 PM EDT 4 mg naloxone (NARCAN) injection 0.04 mg 0.04 mg, intravenous, As needed, opioid reversal, IV Push every 1 min for 10 doses, Starting on Fri08/20/24 at 1608, For 10 doses, To Dilute: -Use 0.4 mg/mL vial , withdraw 1 mL and add 9 mL NS -FOLLOWING DILUTION, dose of 0.04 mg = 1 mL For PARTIAL Opioid Reversal: -For respiratory rate LESS than 10 or Pasero Opioid-induced Sedation Scale (POSS) equal to 4 -May be repeated at 1 minute intervals to restore adequate respirations -Administer up to 10 doses (0.4 mg) ondansetron (PF) (ZOFRAN) injection 4 mg 4 mg, intravenous, Once, On Fri08/20/24 at 1313, For 1 dose Given 08/20/2024 1:18 PM EDT 4 mg ondansetron (PF) (ZOFRAN) injection 4 mg 4 mg, intravenous, Every 6 hours PRN, vomiting, nausea, Starting on Fri08/20/24 at 1605, -ONLY give IV if patient is unable to take orally. -If inadequate response within 30 minutes, proceed to next-line agent or contact provider if no further options ordered. Given 08/25/2024 8:26 AM EDT 4 mg Given 08/24/2024 9:41 AM EDT 4 mg Given 08/22/2024 10:32 PM EDT 4 mg oxyCODONE (ROXICODONE) immediate release tablet 10 mg 10 mg, oral, Every 4 hours PRN, severe pain, Starting on 08/21/24 at 1209, Recovery & On Unit Given 08/22/2024 9:27 AM EDT 10 mg Given 08/21/2024 3:05 PM EDT 10 mg oxyCODONE (ROXICODONE) immediate release tablet 2.5 mg 2.5 mg, oral, Every 4 hours PRN, moderate pain or when therapies for mild pain were not effective, Starting on Fri08/23/24 at 1012, On hold since Aaliyah 08/26/2024 at 0416 until manually unheld pantoprazole (PROTONIX) EC tablet 40 mg 40 mg, oral, Every morning before breakfast, First dose on 08/21/24 at 0700, Do not crush, chew, or split. Given 08/27/2024 6:43 AM EDT 40 mg Given 08/26/2024 6:58 AM EDT 40 mg Given 08/24/2024 6:21 AM EDT 40 mg piperacillin-tazobactam (ZOSYN) 4.5 g in sodium chloride 0.9 % 100 mL IVPB 4.5 g, intravenous, at 200 mL/hr, Administer over 0.5 Hours, Once, On Fri08/20/24 at 1309, For 1 dose, Do not administer through same line as lactated ringer? s fluids (LR), Indication: Pneumonia, Community Acquired New Bag 08/20/2024 2:42 PM EDT 4.5 g 2 00 mL/hr piperacillin-tazobactam (ZOSYN) 4.5 g in sodium chloride 0.9 % 100 mL IVPB 4.5 g, intravenous, at 200 mL/hr, Administer over 0.5 Hours, Every 6 hours, First dose (after last reorder) on Fri08/20/24 at 2045, For 7 days, Do not administer through same line as lactated ringer? s fluids (LR), Indication: Other, Specify: loculated pleural effusion/empyema New Bag 08/22/2024 12:30 PM EDT 4.5 g 200 mL/hr New Bag 08/22/2024 5:16 AM EDT 4.5 g 200 mL/hr New Bag 08/21/2024 10:32 PM EDT 4.5 g 200 mL/hr piperacillin-tazobactam (ZOSYN) 4.5 g in sodium chloride 0.9 % 100 mL IVPB 4.5 g, intravenous, at 200 mL/hr, Administer over 0.5 Hours, Every 6 hours, First dose (after last modification) on Fri08/22/24 at 1800, For 21 doses, Do not administer through same line as lactated ringer? s fluids (LR), Indication: Other, Specify: loculated pleural effusion/empyema New Bag 08/23/2024 6:01 AM EDT 4.5 g 200 mL/hr New Bag 08/22/2024 11:25 PM EDT 4.5 g 200 mL/hr New Bag 08/22/2024 6:16 PM EDT 4.5 g 200 mL/hr piperacillin-tazobactam (ZOSYN) 4.5 g in sodium chloride 0.9 % 100 mL IVPB 4.5 g, intravenous, at 200 mL/hr, Administer over 0.5 Hours, Every 8 hours, First dose (after last modification) on Fri08/23/24 at 1400, For 4 days, Renal dosing protocol Do not administer through same line as lactated ringer? s fluids (LR), Indication: Other, Specify: loculated pleural effusion/empyema New Bag 08/27/2024 6:44 AM EDT 4.5 g 200 mL/hr New Bag 08/26/2024 10:37 PM EDT 4.5 g 200 mL/hr New Bag 08/26/2024 2:48 PM EDT 4.5 g 200 mL/hr polyethylene glycol (MIRALAX) packet 17 g 17 g, oral, Nightly, First dose on Fri08/20/24 at 2100, Bowel Regimen - for prevention of constipation Given 08/23/2024 9:32 PM EDT 17 g predniSONE (DELTASONE) tablet 40 mg 40 mg, oral, Daily, First dose on Fri08/22/24 at 0900, For 5 days Given 08/25/2024 9:24 AM EDT 40 mg Given 08/24/2024 9:18 AM EDT 40 mg Given 08/23/2024 9:32 AM EDT 40 mg roflumilast (DALIRESP) tablet 500 mcg 500 mcg, oral, Daily, First dose on 08/21/24 at 0900 Given 08/27/2024 8:56 AM EDT 500 mcg Given 08/26/2024 8:52 AM EDT 500 mcg Given 08/25/2024 9:24 AM EDT 500 mcg senna (SENOKOT) tablet 17.2 mg 17.2 mg (2 tablet), oral, Nightly, First dose on Fri08/22/24 at 2100 Given 08/26/2024 10:39 PM EDT 17.2 mg Given 08/25/2024 9:17 PM EDT 17.2 mg Given 08/24/2024 9:04 PM EDT 17.2 mg simethicone (MYLICON) chewable tablet 160 mg 160 mg, oral, 4 times daily PRN, flatulence, indigestion, Starting on 08/21/24 at 1727 Given 08/21/2024 5:47 PM EDT 160 mg sodium chloride 0.9 % flush 10 mL 10 mL, intravenous, Once, On Fri08/20/24 at 1406, For 1 dose Given 08/20/2024 2:07 PM EDT 10 mL sodium chloride 0.9 % flush 10 mL 10 mL, intravenous, 2 times daily, First dose on Fri08/20/24 at 2100 Given 08/27/2024 8:58 AM EDT 10 mL Given 08/26/2024 10:39 PM EDT 10 mL Given 08/26/2024 8:54 AM EDT 10 mL sodium chloride 0.9 % flush 10 mL 10 mL, intravenous, As needed, line care, Starting on Fri08/20/24 at 1605 sodium chloride 0.9 % infusion intravenous, Continuous PRN, Starting on Fri08/20/24 at 1700, Intraprocedure New Bag 08/20/2024 5:00 PM EDT 100 mL/hr 100 mL/hr sodium chloride 0.9 % infusion 100 mL/hr, intravenous, Continuous, Starting on Fri08/22/24 at 1230 New Bag 08/23/2024 9:29 PM EDT 100 mL/hr 100 mL/hr New Bag 08/23/2024 2:42 PM EDT 100 mL/hr 100 mL/hr New Bag 08/22/2024 10:41 PM EDT 100 mL/hr 100 mL/hr traMADoL (ULTRAM) tablet 25 mg 25 mg, oral, Every 8 hours PRN, severe pain, Starting on Fri08/23/24 at 1013, Max of 300 mg daily for patients greater than 75 years of age. Given 08/26/2024 12:45 PM EDT 25 mg Given 08/25/2024 10:19 PM EDT 25 mg Given 08/25/2024 2:19 PM EDT 25 mg traMADoL (ULTRAM) tablet 25 mg 25 mg, oral, Once, On Fri08/26/24 at 0445, For 1 dose, Max of 300 mg daily for patients greater than 75 years of age. Given 08/26/2024 4:37 AM EDT 25 mg traMADoL (ULTRAM) tablet 50 mg 50 mg, oral, Once, On Fri08/22/24 at 1630, For 1 dose, Max of 300 mg daily for patients greater than 75 years of age. Given 08/22/2024 4:37 PM EDT 50 mg vancomycin (VANCOCIN) IVPB 1,250 mg in 0.9 % sodium chloride 250 mL - CNR 1,250 mg (rounded from 1,327.5 mg = 15 mg/kg ? 88.5 kg), intravenous, at 166.7 mL/hr, Administer over 90 Minutes, Once, On Fri08/20/24 at 1309, For 1 dose, Indication: Pneumonia, Community Acquired New Bag 08/20/2024 3:17 PM EDT 1,250 mg 166.7 mL/hr vancomycin (VANCOCIN) IVPB 1,250 mg in 0.9 % sodium chloride 250 mL - CNR 1,250 mg, intravenous, at 166.7 mL/hr, Administer over 90 Minutes, Every 12 hours, First dose on 08/21/24 at 0300, For 7 days, Trough goal = 15-20, Indication: Other, Specify: loculated pleural infusion / empyema New Bag 08/22/2024 11:31 PM EDT 1,250 mg 166.7 mL/hr New Bag 08/22/2024 9:03 AM EDT 1,250 mg 166.7 mL/hr Restarted 08/21/2024 11:05 PM EDT 166.7 mL/hr documented in this encounter Discontinued Medications Medication Sig Discontinue Reason Start Date End Da te amoxicillin-clavulanat e (AUGMENTIN) 875-125 mg per tablet Take 1 tablet by mouth 2 times daily. Stop Taking at Discharge 08/11/2024 08/27/2024 documented as of this encounter Historical Medications * This list may reflect changes made after this encounter. roflumilast (DALIRESP) 500 mcg tablet Take 1 tablet (500 mcg total) by mouth 1 (one) time each day. omeprazole (PriLOSEC) [address] capsule Take 1 capsule (20 mg total) by mouth 1 (one) time each day. 06/22/2024 metFORMIN (GLUCOPHAGE) 500 mg tablet Take 1 tablet (500 mg total) by mouth 1 (one) time each day with breakfast. 06/01/2016 magnesium oxide (MAG-OX) 400 mg (241.3 elemental magnesium) tablet Take 1 tablet (400 mg total) by mouth at bedtime. 06/11/2024 lisinopril (PRINIVIL,ZESTRI L) 40 mg tablet Take 1 tablet (40 mg total) by mouth 1 (one) time each day. 07/12/2024 Linzess 290 mcg capsule Take 1 capsule (290 mcg total) by mouth 1 (one) time each day before breakfast. imipramine (TOFRANIL) 50 mg tablet Take 0.5 tablets (25 mg total) by mouth 2 (two) times a day. ibuprofen (ADVIL,MOTRIN) 800 mg tablet Take 1 tablet (800 mg total) by mouth every 6 hours as needed. 07/12/2024 hydroCHLOROthiaz angel 12.5 mg tablet Take 1 tablet (12.5 mg total) by mouth daily. 07/19/2024 Dupixent Pen 300 mg/2 mL pen Inject 2 mL (300 mg total) under the skin every 14 days. 08/09/2024 dilTIAZem CD (CARDIZEM CD) 300 mg 24 hr capsule Take 1 capsule (300 mg total) by mouth daily. 05/01/2024 cetirizine (ZyrTEC) 10 mg tablet Take 1 tablet (10 mg total) by mouth 1 (one) time each day. carbidopa-levodo pa (SINEMET) 25-100 mg per tablet Take 1 tablet by mouth 2 times daily. 06/11/2024 budesonide-formo teroL (SYMBICORT) 160-4.5 mcg/actuation inhaler Inhale 2 puffs by mouth every 12 hours. 08/04/2018 atorvastatin (LIPITOR) 10 mg tablet Take 1 tablet (10 mg total) by mouth 1 (one) time each day. aspirin 81 mg chewable tablet Chew 1 tablet (81 mg total) daily. 07/12/2024 ProAir RespiClick 90 mcg/actuation aerosol powdr breath activated Inhale 2 puffs by mouth. Inhale 2 puffs by mouth every 4-6 hours as needed for shortness of breath or wheezing 08/06/2024 albuterol 2.5 mg /3 mL (0.083 %) nebulizer solution Take 3 mL (2.5 mg total) by nebulization every 4 (four) hours if needed for wheezing or shortness of breath. amoxicillin-clav ulanate (AUGMENTIN) 875-125 mg per tablet Take 1 tablet by mouth 2 times daily. 08/11/2024 5 added in this encounter Active and Recently Administered Medications Times are shown in EDT. Scheduled Medication Order 08/25/2024 08/26/2024 08/27/2024 acetaminophen (TYLENOL) tablet 1,000 mg 1,000 mg, oral, Every 8 hours, First dose (after last modification) on Fri08/23/24 at 0011 4647 (Given - Provider: Red Mojica RN - Comment: delayed due to nausea)1655 (Given - Provider: Yanni Umana RN) 0020 (Given - Provider: Dennise Mendoza RN)0853 (Given - Provider: Yanni Umana RN)1705 (Given - Provider: Yanni Umana RN)2344 (Given - Provider: Dennise Mendoza RN) 0857 (Given - Provider: Christianne Avery, JOHN) aluminum-magnesium hydroxide-simethicone (MAALOX) 200-200-20 mg/5 mL suspension 10 mL 10 mL, oral, 4 times daily before meals and nightly, First dose on Fri08/23/24 at 1130 0842 (Not Given - Provider: Red Mojica RN - Reason: Patient/Resident/Ag ent refused - education provided )1149 (Not Given - Provider: Red Mojica RN - Reason: Patient/Resident/Ag ent refused - education provided )1532 (Not Given - Provider: Yanni Umana RN - Reason: Patient/Resident/Ag ent refused - education provided )2114 (Not Given - Provider: Dennise Mendoza RN - Reason: Patient/Resident/Ag ent refused - education provided ) 0800 (Not Given - Provider: Yanni Umana RN - Reason: Patient/Resident/Ag ent refused - education provided )1055 (Not Given - Provider: Yanni Umana RN - Reason: Patient/Resident/Ag ent refused - education provided )1645 (Not Given - Provider: Yanni Umana RN - Reason: Patient/Resident/Ag ent refused - education provided )2237 (Not Given - Provider: Dennise Mendoza RN - Reason: Patient/Resident/Ag ent refused - education provided ) 0855 (Given - Provider: Christianne Avery RN)1132 (Not Given - Provider: Christianne Avery RN - Reason: Patient/Resident/Agent refused - education provided ) aspirin chewable tablet 81 mg 81 mg, oral, Daily, First dose on Fri08/20/24 at 2045, For 326 days 0924 (Given - Provider: Red Mojica RN) 0852 (Given - Provider: Yanni Umana RN) 0856 (Given - Provider: Christianne AveryJOHN) atorvastatin (LIPITOR) tablet 10 mg 10 mg, oral, Daily, First dose on Fri08/20/24 at 2100 0924 (Given - Provider: Red Mojica RN) 0853 (Given - Provider: Yanni Umana RN) 0857 (Given - Provider: Christianne Avery, JOHN) calcium carbonate (TUMS) chewable tablet 1,000 mg 1,000 mg, oral, Once, On 08/21/24 at 0415, For 1 dose, Ordered as calcium carbonate. 500 mg calcium carbonate = 200 mg elemental calcium. dilTIAZem CD (CARDIZEM CD) 24 hr capsule 300 mg 300 mg, oral, Daily, First dose on 08/21/24 at 0900, Do not crush, chew, or split. 09 (Given - Provider: Red Mojica RN) 0852 (Given - Provider: Yanni Umana RN) 0856 (Given - Provider: Christianne Avery, JOHN) docusate sodium (COLACE) capsule 100 mg 100 mg, oral, 2 times daily, First dose on Fri08/22/24 at 1100 0843 (Not Given - Provider: Red Mojica RN - Reason: Patient/Resident/Ag ent refused - education provided )2117 (Given - Provider: Dennise Mendoza RN) 0853 (Given - Provider: Yanni Umana RN)2237 (Given - Provider: Dennise Mendoza RN) 0857 (Given - Provider: Christianne Avery, JOHN) heparin (UFH) injection 5,000 Units 5,000 Units, subcutaneous, Every 12 hours scheduled, First dose on Fri08/23/24 at 0900, Enter Indication for use of heparin (UFH) instead of enoxaparin (LOVENOX): (free text): increased cr, Indication: VTE Prophylaxis, Indications: Prophylaxis of Venous Thromboembolism 924 (Given - Provider: Red Mojica RN)2113 (Given - Provider: Dennise Mendoza RN) 0853 (Given - Provider: Yanni Umana RN)223 (Given - Provider: Dennise Mendoza RN) 0941 (Given - Provider: Christianne Avery, JOHN) hydroCHLOROthiazide (MICROZIDE) capsule 12.5 mg 12.5 mg, oral, Daily, First dose on 08/21/24 at 0900 0924 (Given - Provider: Red Mojica RN) 0852 (Given - Provider: Yanni Umana RN) 0857 (Given - Provider: Christianne Avery RN) imipramine (TOFRANIL) tablet 25 mg 25 mg, oral, 2 times daily, First dose on 08/21/24 at 0900 0924 (Given - Provider: Red Mojica RN)2118 (Not Given - Provider: Dennise Mendoza RN - Reason: Patient/Resident/Ag ent refused - education provided ) 0852 (Given - Provider: Yanni Umana RN)2238 (Not Given - Provider: Dennise Mendoza RN - Reason: Patient/Resident/Ag ent refused - education provided ) 0856 (Given - Provider: Christianne Avery RN) insulin lispro injection 1-6 Units 1-6 Units, subcutaneous, 3 times daily before meals, First dose on 08/21/24 at 0730, Indication: Total Daily Dose (TDD) LESS than 40 units Correction Scale: Low Dose Administer with meal and/or mealtime dose of insulin to correct high blood glucose If mealtime insulin dose not given (e.g. patient NPO or not eating), still administer correction factor for high blood glucose 0916 (Not Given - Provider: Red Mojica RN - Reason: Order parameters not met)1139 (Not Given - Provider: Red Mojica RN - Reason: Order parameters not met)1655 (Given - Provider: Yanni Umana RN) 0801 (Not Given - Provider: Yanni Umana RN - Reason: Order parameters not met)1126 (Not Given - Provider: Yanni Umana RN - Reason: Order parameters not met)1659 (Not Given - Provider: Yanni Umana RN - Reason: Order parameters not met) 0825 (Not Given - Provider: Christianne Avery RN - Reason: Order parameters not met)1133 (Not Given - Provider: Christianne Avery RN - Reason: Order parameters not met) ipratropium-albuteroL (DUONEB) 0.5-2.5 mg/3 mL nebulizer solution 3 mL 3 mL, nebulization, 4 times daily, First dose on Fri08/20/24 at 2000, For 7 days 0717 (Given - Provider: Stephie Jose AIR VALVE REPAIRER)1117 (Given - Provider: Stephie Jose AIR VALVE REPAIRER)1706 (Given - Provider: An Short AIR VALVE REPAIRER)2109 (Given - Provider: An Short AIR VALVE REPAIRER) 0824 (Given - Provider: Roberto Mobley, AIR VALVE REPAIRER)1115 (Given - Provider: Roberto Mobley AIR VALVE REPAIRER)1649 (Given - Provider: An Short AIR VALVE REPAIRER)203 (Not Given - Provider: Isabella Loya RRT - Reason: Patient not available) 0836 (Given - Provider: Stephie Jose AIR VALVE REPAIRER)1141 (Given - Provider: Stephie Jose AIR VALVE REPAIRER) lidocaine 4 % patch 1 patch 1 patch, Topical, Administer over 12 Hours, Daily, First dose (after last modification) on Fri08/20/24 at 2145, Apply to back. 0925 (Patch Applied - Provider: Red Mojica RN - Comment: left side/abd)211 (Patch Removed - Provider: Dennise Mendoza RN) 0852 (Patch Applied - Provider: Yanni Umana, JOHN)2239 (Patch Removed - Provider: Dennise Mendoza RN) 0855 (Patch Applied - Provider: Christianne Avery, JOHN)1330 (Due: Patch Removed - Provider: Automatic Discharge Provider - Comment: Time automatically adjusted from order being discontinued) lisinopriL (PRINIVIL,ZESTRIL) tablet 40 mg 40 mg, oral, Daily, First dose on 08/21/24 at 0900 0924 (Given - Provider: Red Mojica RN) 0853 (Given - Provider: Yanni Umana RN) 0857 (Given - Provider: Christianne Avery, OJHN) loratadine (CLARITIN) tablet 10 mg 10 mg, oral, Daily, First dose on Fri08/21/24 at 0900 0925 (Not Given - Provider: Red Mojica RN - Reason: Patient/Resident/Ag ent refused - education provided ) 0853 (Given - Provider: Yanni Umana RN) 0858 (Given - Provider: Christianne Avery, JOHN) magnesium oxide (MAG-OX) tablet 400 mg 400 mg, oral, Nightly, First dose on Fri08/20/24 at 2100 2116 (Given - Provider: Dennise Mendoza, JOHN) 2239 (Given - Provider: Dennise Mendoza, RN) pantoprazole (PROTONIX) EC tablet 40 mg 40 mg, oral, Every morning before breakfast, First dose on 08/21/24 at 0700, Do not crush, chew, or split. 0614 (Not Given - Provider: Teri Sinclair RN - Reason: Patient/Resident/Ag ent refused - education provided ) 0658 (Given - Provider: Dennise Mendoza RN) 0643 (Given - Provider: Dennise Mendoza, RN) piperacillin-tazobactam (ZOSYN) 4.5 g in sodium chloride 0.9 % 100 mL IVPB (COMPLETED) 4.5 g, intravenous, at 200 mL/hr, Administer over 0.5 Hours, Every 8 hours, First dose (after last modification) on Fri08/23/24 at 1400, For 4 days, Renal dosing protocol Do not administer through same line as lactated ringer? s fluids (LR), Indication: Other, Specify: loculated pleural effusion/empyema 0030 (Stopped - Provider: Teri Sinclair RN)0606 (New Bag - Provider: Teri Sinclair RN)0636 (Due: Stopped - Provider: Teri Sinclair RN)1420 (New Bag - Provider: Yanni Umana RN)1502 (Stopped - Provider: Yanni Umana, JOHN)2120 (New Bag - Provider: Dennise Mendoza RN)2223 (Stopped - Provider: Dennise Mendoza RN) 0658 (New Bag - Provider: Dennise Mendoza, JOHN)0800 (Stopped - Provider: Yanni Umana RN)1448 (New Bag - Provider: Yanni Umana, JOHN)1520 (Stopped - Provider: Yanni Umana, JOHN)2237 (New Bag - Provider: Dennise Mendoza, JOHN)2344 (Stopped - Provider: Dennise Mendoza, JOHN) 0644 (New Bag - Provider: Dennise Mendoza, JOHN)0810 (Stopped - Provider: Christianne Avery RN) polyethylene glycol (MIRALAX) packet 17 g 17 g, oral, Nightly, First dose on Fri08/20/24 at 2100, Bowel Regimen - for prevention of constipation 2114 (Not Given - Provider: Dennise Mendoza RN - Reason: Patient/Resident/Ag ent refused - education provided ) 2237 (Not Given - Provider: Dennise Mendoza RN - Reason: Patient/Resident/Ag ent refused - education provided ) predniSONE (DELTASONE) tablet 40 mg (CANCELED) 40 mg, oral, Daily, First dose on 08/22/24 at 0900, For 5 days 0924 (Given - Provider: Red Mojica RN) 1054 (Not Given - Provider: Yanni Umana RN - Reason: See Provider Order) roflumilast (DALIRESP) tablet 500 mcg 500 mcg, oral, Daily, First dose on 08/21/24 at 0900 0924 (Given - Provider: Red Mojica RN) 0852 (Given - Provider: Yanni Umana, JOHN) 0856 (Given - Provider: Christianne Avery, JOHN) senna (SENOKOT) tablet 17.2 mg 17.2 mg (2 tablet), oral, Nightly, First dose on 08/22/24 at 2100 2116 (Given - Provider: Dennise Mendoza RN) 2238 (Given - Provider: Dennise Mendoza RN) sodium chloride 0.9 % flush 10 mL(Linked Group 1) 10 mL, intravenous, 2 times daily, First dose on Fri08/20/24 at 2100 0926 (Given - Provider: Red Mojica RN)2118 (Given - Provider: Dennise Mendoza RN) 0854 (Given - Provider: Yanni Umana, JOHN)223 (Given - Provider: Dennise Mendoza, JOHN) 0858 (Given - Provider: Christianne Avery, JOHN) traMADoL (ULTRAM) tablet 25 mg (COMPLETED) 25 mg, oral, Once, On Aaliyah 08/26/24 at 0445, For 1 dose, Max of 300 mg daily for patients greater than 75 years of age. 0437 (Given - Provider: Dennise Mendoza RN - Comment: prn med scanned and administered) PRN Medication Order 08/25/2024 08/26/2024 08/27/2024 albuterol 2.5 mg /3 mL (0.083 %) nebulizer solution 2.5 mg 2.5 mg, nebulization, Every 4 hours PRN, wheezing, shortness of breath, Starting on Fri08/20/24 at 2011 dextrose (D50W) 50% injection 12.5 g 12.5 g, intravenous, Every 15 min PRN, low blood sugar, moderate hypoglycemia *Patient is Unconscious, NPO, unable to swallow: BG 54 - 69 mg/dl*, Starting on Fri08/20/24 at 2010 dextrose (D50W) 50% injection 25 g 25 g, intravenous, Every 15 min PRN, low blood sugar, severe hypoglycemia *Patient is Unconscious, NPO, unable to swallow: BG LESS than 54 mg/dL*, Starting on Fri08/20/24 at 2010 dextrose 15 gram/60 mL oral solution 15 g 15 g, oral, Every 15 min PRN, low blood sugar, hypoglycemia *Patient conscious AND able to drink and swallow safely*, Starting on Fri08/20/24 at 2010 dextrose 15 gram/60 mL oral solution 30 g 30 g, oral, Every 15 min PRN, low blood sugar, hypoglycemia *Patient conscious AND able to drink and swallow safely*, Starting on Fri08/20/24 at 2010 magnesium hydroxide (MILK OF MAGNESIA) 400 mg/5 mL suspension 30 mL 30 mL, oral, Daily PRN, constipation, Starting on Fri08/20/24 at 1605, 1st line for treatment of constipation - give scheduled if no bowel movement in past 24 hours melatonin tablet 6 mg 6 mg, oral, Nightly PRN, insomnia, Starting on Fri08/26/24 at 0430 0446 (Given - Provider: Dennise Mendoza RN) naloxone (NARCAN) injection 0.04 mg 0.04 mg, intravenous, As needed, opioid reversal, IV Push every 1 min for 10 doses, Starting on Fri08/20/24 at 1608, For 10 doses, To Dilute: -Use 0.4 mg/mL vial , withdraw 1 mL and add 9 mL NS -FOLLOWING DILUTION, dose of 0.04 mg = 1 mL For PARTIAL Opioid Reversal: -For respiratory rate LESS than 10 or Pasero Opioid-induced Sedation Scale (POSS) equal to 4 -May be repeated at 1 minute intervals to restore adequate respirations -Administer up to 10 doses (0.4 mg) ondansetron (PF) (ZOFRAN) injection 4 mg 4 mg, intravenous, Every 6 hours PRN, vomiting, nausea, Starting on Fri08/20/24 at 1605, -ONLY give IV if patient is unable to take orally. -If inadequate response within 30 minutes, proceed to next-line agent or contact provider if no further options ordered. 0826 (Given - Provider: Red Mojica RN) 0944 (Not Given - Provider: Christianne Avery RN - Reason: Patient/Resident/Age nt refused - education provided ) oxyCODONE (ROXICODONE) immediate release tablet 2.5 mg 2.5 mg, oral, Every 4 hours PRN, moderate pain or when therapies for mild pain were not effective, Starting on Fri08/23/24 at 1012, On hold since Fri08/26/2024 at 0416 until manually unheld 0416 (Held by provider - Provider: ADRIAN العلي - Reason: Other - Comment: Patient hallucinates when she gets oxycodone) 1530 (Unheld by provider - Provider: Automatic Discharge Provider) simethicone (MYLICON) chewable tablet 160 mg 160 mg, oral, 4 times daily PRN, flatulence, indigestion, Starting on 08/21/24 at 1727 sodium chloride 0.9 % flush 10 mL(Linked Group 1) 10 mL, intravenous, As needed, line care, Starting on Fri08/20/24 at 1605 traMADoL (ULTRAM) tablet 25 mg 25 mg, oral, Every 8 hours PRN, severe pain, Starting on Fri08/23/24 at 1013, Max of 300 mg daily for patients greater than 75 years of age. 0606 (Given - Provider: Teri Sinclair, JOHN)1419 (Given - Provider: Yanni Umana, JOHN)2219 (Given - Provider: Dennise Mendoza, JOHN) 0437 (Not Given - Provider: Dennise Mendoza, JOHN - Reason: Other - Comment: one time dose given not prn dose)1245 (Given - Provider: Yanni Umana, JOHN) Linked Groups Order Group 1: Insert peripheral IV (CANCELED) STAT, Once, On Fri08/20/24 at 1606, For 1 occurrence And Maintain IV access (CANCELED) Until discontinued, Starting on Fri08/20/24 at 1606, Until Specified And Saline lock IV (CANCELED) Routine, Once, On Fri08/20/24 at 1606, For 1 occurrence And sodium chloride 0.9 % flush 10 mLJump to med 10 mL, intravenous, 2 times daily, First dose on Fri08/20/24 at 2100 And sodium chloride 0.9 % flush 10 mLJump to med 10 mL, intravenous, As needed, line care, Starting on Fri08/20/24 at 1605 documented in this encounter Orders Medications Ordered That Douglas ht Not Have Been Administered Count Last Ordered Date First Ordered Date oxyCODONE (ROXICODONE) immed iate release tablet 2.5 mg 1 08/23/2024 oxyCODONE (ROXICODONE) immed iate release tablet 5 mg 3 08/23/2024 08/20/2024 ketorolac (TORADOL) injection 15 mg 1 08/22 acetaminophen (TYLENOL) tablet 650 mg 1 04/2025 bupivacaine-EPINEPHrine (MAR FLAVIO w/EPI) 0.25 %-1:200,000 injection 1 08/21/2024 calcium carbonate (TUMS) shira wable tablet 1,000 mg 1 08/21/2024 fentaNYL (PF) (SUBLIMAZE) injection 50 mcg 1 08/21/2024 methylPREDNISolone acetate ( DEPO-Medrol) injection 1 08/21/2024 ondansetron (PF) (ZOFRAN) injection 4 mg 1 08/21/2024 ondansetron ODT (ZOFRAN-ODT) disintegrating tablet 4 mg 1 08/21/2024 albuterol 2.5 mg /3 mL (0.08 3 %) nebulizer solution 2.5 mg 2 08/20/2024 carbidopa-levodopa (SINEMET) 25-100 mg per tablet 1 tablet 1 08/20/2024 dextrose (D50W) 50% injection 12.5 g 1 08/10 dextrose (D50W) 50% injection 25 g 1 2024 dextrose 15 gram/60 mL oral solution 15 g 08/20/2024 dextrose 15 gram/60 mL oral solution 30 g 08/20/2024 Glucagon HCl (rDNA) injection 1 mg 1 2024 HYDROmorphone (PF) injection 0.2 mg 1 08/20 HYDROmorphone (PF) injection 0.25 mg 1 08/10 lidocaine 4 % patch 1 patch 1 08/20/2024 magnesium hydroxide (MILK OF MAGNESIA) 400 mg/5 mL suspension 30 mL 1 08/20/2024 naloxone (NARCAN) injection 0.04 mg 1 08/20 sodium chloride 0.9 % flush 10 mL 1 025 Lab Orders Without Results Count Last Ordered D ate First Ordered Date POCT GLUCOSE, BLOOD 25 08/27/2024 08/21/19 25 EKG Orders Without Results Count Last Ordered D ate First Ordered Date ECG 12-LEAD 1 08/20/2024 Respiratory Care Count Last Ordered Date First Ordered Date PEP THERAPY 6 08/26/2024 08/21/2024 OXYGEN THERAPY, ADULT 1 08/21/2024 Admission Count Last Ordered Date First Orde red Date ADMIT TO INPATIENT 1 08/20/2024 Transfer Count Last Ordered Date First Orde red Date TRANSFER PATIENT TO NEW UNIT 2 08/24/2024 08/21/2024 ED TO FLOOR BED REQUEST 1 08/20/2024 Discharge Count Last Ordered Date First Orde red Date DISCHARGE PATIENT 1 08/27/2024 documented in this encounter Care Teams Filler Blender Relationship Specialty Start Date End Date Edward Rebolledo MD [address] [place] [address] PCP - General Displayer Merchandise 08/25/24 documented as of this encounter
--- OUTSIDE RECORDS SUMMARY | 2024-08-31 11:55 | XMS_ITS | Encounter Summary ---
Author Organization [facility] Address [address] [facility] [address] [place] [address] Care Team Providers Care Early Childhood Coordinator Name Role Phone Mary Flores MD Primary Care Provider [phone] Reason for Visit * Reason Comments Med Refill Encounter Details Date Type Department Care Team (Late st Contact Info) Description 08/15/2022 Refill [facility] [address] [place], [place] [phone] Keri Ochoa MD [address] [place], [place] [phone] Social History Tobacco Use Types Packs/Day Years [...] on filedocumented in this encounter Care Teams Early Childhood Coordinator Relationship Specialty Start Date End Date Mary Flores MD [address] [place] [address] [phone] PCP - General Family Medicine 01/05/22 documented as of this encounter
--- OUTSIDE RECORDS SUMMARY | 2024-08-31 11:55 | XMS_ITS | Encounter Summary ---
Author Organization [facility] Address [address] [place] [address] [address] [place] [address] Care Team Providers Care Hairspring Inspector Name Role Phone Mary Flores MD Primary Care Provider [phone] Reason for Visit * Reason Onset Date Comments Referral 08/01/2022 Encounter Details Date Type Department Care Team ([facility] st Contact Info) Description 08/01/2022 Telephone [facility] [address] [place] [address] Mary Flores MD [address] [place] [address] Referral Social History Tobacco Use Types Packs/Day [...] [facility] Please contact pt at [phone] east [place] Speaker documented in this encounter Plan of Treatment Not on file documented as of this encounter Visit Diagnoses Not on filedocumented in this encounter Care Teams Hairspring Inspector Relationship Specialty Start Date End Date Mary Flores MD [address] [place] [address] PCP - General Family Medicine 01/05/22 documented as of this encounter
--- OUTSIDE RECORDS SUMMARY | 2024-08-31 11:55 | XMS_ITS | Encounter Summary ---
Author Organization [facility] Address [address] [facility] [address] [place] [address] Care Team Providers Care Guidance Director Name Role Phone Mary Flores MD Primary Care Provider [phone] Encounter Details Date Type Department Care Team (Late st Contact Info) Description 08/01/2022 Orders Only [facility] [address] [place] [address] Mary Flores MD [address] [place] [address] Blurry vision (Primary Dx) Social History Tobacco [...] disturbances documented in this encounter Care Teams Guidance Director Relationship Specialty Start Date End Date Mary Flores MD [address] [place], [place] [phone] PCP - General Family Medicine 01/05/22 documented as of this encounter
--- OUTSIDE RECORDS SUMMARY | 2024-08-31 11:55 | XMS_ITS | Encounter Summary ---
Author Organization [employer] Address [address] [place] [address] Care Team Providers Care Construction Engineering Manager Name Role Phone Mary Flores MD Primary Care Provider [phone] Reason for Visit * Reason Onset Date Comments Durable Medical Equipment 07/25/2023 Encounter Details Date Type Department Care Team ([facility] st Contact Info) Description 07/25/2023 Telephone [facility] [address] [place] [address] Mary Flores MD [address] [place] [address] Durable Medical Equipment Social History Tobacco Use [...] requesting DME supplies to be sent to [facility] - bed pads - L pull ups - oximeter documented in this encounter Plan of Treatment Not on file documented as of this encounter Visit Diagnoses Not on filedocumented in this encounter Care Teams Construction Engineering Manager Relationship Specialty Start Date End Date Mary Flores MD [address] [place] [address] PCP - General Family Medicine 01/05/22 documented as of this encounter
--- OUTSIDE RECORDS SUMMARY | 2024-08-31 11:56 | XMS_ITS | Clinical Summary ---
Author Organization [facility] Address [address] [address] Care Team Providers Care Veneer Department Manager Name Role Phone Frances Fowler RN Primary [...] DAILY FOR 2 DAYS. 12/21/2020 Active Creon 53453-06285 units capsule TAKE 1 CAPSULE BY MOUTH [...] by mouth 02/12/2021 Active ergocalciferol 1.25 MG (33998 UT) capsule TAKE 1 CAPSULE BY MOUTH [...] 50+ Ye ars (1 of - PCV) 1999 Influenza Vaccine (Season Ended) 2025 Hepatitis B Vaccine Aged Out No longe r eligible based on patient's age to complete this topic Insurance Plan Dual Elig Plan Dual Elig Care Teams Veneer Department Manager Relationship Specialty Start Date End Date Frances Fowler RN PCP - General Family Medicine 11/09/20
--- OUTSIDE RECORDS SUMMARY | 2024-08-31 11:56 | XMS_ITS | Encounter Summary ---
Author Organization [facility] Address [address] [facility] [address]t [place] [address] Care Team Providers Care Marketing Designer Name Role Phone Mary Flores MD Primary Care Provider [phone] Encounter Details Date Type Department Care Team (Latest Contact Info) Description 01/29/2021 Abstract [facility] Dental, Provider, DDS Social History [...] filedocumented in this encounter Care Teams Marketing Designer Relationship Specialty Start Date End Date Mary Flores MD [address] [place] [address] PCP - General Family Medicine 01/05/22 documented as of this encounter
--- OUTSIDE RECORDS SUMMARY | 2024-08-31 11:56 | XMS_ITS | Encounter Summary ---
Author Organization [employer] Address [address] [place] [address] Care Team Providers Care Manager Switch Name Role Phone Mary Flores MD Primary Care Provider [phone] Reason for Visit * Reason Onset Date Comments ER Follow-up 08/09/2024 Encounter Details Date Type Department Care Team ([facility] st Contact Info) Description 08/09/2024 Telephone [facility] [address] [place] [address] Mary Flores MD [address] [place] [address] ER Follow-up Social History Tobacco Use Types [...] AM EDT Triage call with [facility] [place] [id number] Pt was hospitalized 08/06/24 @ [facility] for pneumonia, pleural effusion and SOB. (Report [...] visit on : Date: 08/06/24 Hospital: [facility] Seen for: Chest Pain Symptomatic Yes *if yes message should go to Triage Patient advised will forward to team nurse for follow up Contact pt at [phone] documented in this encounter Plan of Treatment Not on file documented as of this encounter Visit Diagnoses Not on filedocumented in this encounter Additional Health Concerns Assessment Noted Time PHQ-9 Depression Total Score: 7 11/10/19 24 2:30 PM EDT documented as of this encounter Care Teams Manager Switch Relationship Specialty Start Date End Date Mary Flores MD [address] [place] [address] PCP - General Family Medicine 01/05/22 documented as of this encounter
--- OUTSIDE RECORDS SUMMARY | 2024-08-31 11:56 | XMS_ITS | Clinical Summary ---
Author Organization [facility] Address [address] [place] [address] Phone Care Team Providers Care [employer] Foreman Name Role Phone Mary Flores MD Primary Care Provider [phone] Allergies Active Allergy Reactions Criticality Noted Date Comments Morphine 08/20/2024 Medications albuterol 2.5 mg /3 mL (0.083 %) nebulizer solution Take 3 mL (2.5 mg total) by nebulization every 4 (four) hours if needed for wheezing or shortness of breath. Active ProAir RespiClick 90 mcg/actuation aerosol powdr breath activated Inhale 2 puffs by mouth. Inhale 2 puffs by mouth every 4-6 hours as needed for shortness of breath or wheezing 5 Active aspirin 81 mg chewable tablet Chew 1 tablet (81 mg total) daily. 5 026 Active atorvastatin (LIPITOR) 10 mg tablet Take 1 tablet (10 mg total) by mouth 1 (one) time each day. Active budesonide-for moteroL (SYMBICORT) 160-4.5 mcg/actuation inhaler Inhale 2 puffs by mouth every 12 hours. 9 Active carbidopa-levo dopa (SINEMET) 25-100 mg per tablet Take 1 tablet by mouth 2 times daily. 5 Active cetirizine (ZyrTEC) 10 mg tablet Take 1 tablet (10 mg total) by mouth 1 (one) time each day. Active dilTIAZem CD (CARDIZEM CD) 300 mg 24 hr capsule Take 1 capsule (300 mg total) by mouth daily. 4 Active Dupixent Pen 300 mg/2 mL pen Inject 2 mL (300 mg total) under the skin every 14 days. 5 Active hydroCHLOROthi azide 12.5 mg tablet Take 1 tablet (12.5 mg total) by mouth daily. 5 026 Active ibuprofen (ADVIL,MOTRIN) 800 mg tablet Take 1 tablet (800 mg total) by mouth every 6 hours as needed. 5 025 Active imipramine (TOFRANIL) 50 mg tablet Take 0.5 tablets (25 mg total) by mouth 2 (two) times a day. Active Linzess 290 mcg capsule Take 1 capsule (290 mcg total) by mouth 1 (one) time each day before breakfast. Active lisinopril (PRINIVIL,ZEST RIL) 40 mg tablet Take 1 tablet (40 mg total) by mouth 1 (one) time each day. 5 Active magnesium oxide (MAG-OX) 400 mg (241.3 elemental magnesium) tablet Take 1 tablet (400 mg total) by mouth at bedtime. 5 Active metFORMIN (GLUCOPHAGE) 500 mg tablet Take 1 tablet (500 mg total) by mouth 1 (one) time each day with breakfast. 7 Active omeprazole (PriLOSEC) [address] capsule Take 1 capsule (20 mg total) by mouth 1 (one) time each day. 5 Active roflumilast (DALIRESP) 500 mcg tablet Take 1 tablet (500 mcg total) by mouth 1 (one) time each day. Active acetaminophen (TYLENOL) 500 mg tablet Take 2 tablets (1,000 mg total) by mouth every 8 (eight) hours if needed for mild pain for up to 10 days. 30 tablet 5 025 Active lidocaine 4 % patch Apply 1 patch topically 1 (one) time each day for 10 days. 10 each 5 025 Active polyethylene glycol (MIRALAX) 17 gram packet Take 17 g by mouth 1 (one) time each day if needed for constipation for up to 10 days. 170 g 5 025 Active amoxicillin-cl avulanate (AUGMENTIN) 875-125 mg per tablet Take 1 tablet by mouth 2 (two) times a day for 14 days. 28 each 5 025 Active amoxicillin-cl avulanate (AUGMENTIN) 875-125 mg per tablet Take 1 tablet by mouth 2 times daily. 5 025 Discontin ued(Stop Taking at Discharge ) Active Problems Problem Noted Date Diagnosed Date Loculated pleural effusion 08/20/2024 Encounters Date Type Department Care Team Description 08/21/2024 9:33 AM EDT Anesthesia Event [facility] [place] [address] [place] [place] [phone] Jake Garcia DO 08/21/2024 9:15 AM EDT - 08/21/2024 12:[address] [facility] OR [address] [place] [place] [phone] Geraldo Gomez MD da sara THORACOSCOPY DECORTICATION 08/20/2024 11:50 AM EDT - 08/27/2024 1:30 PM EDT Hospital Encounter [facility] Urology Unit [address] [place] [phone] Yessy Cosme DO Flores, Carlos M, MD Mohani, Priya, MD Surendran, Anupama, MD Loculated pleural effusion (Primary Dx); Respiratory failure, unspecified chronicity, unspecified whether with hypoxia or hypercapnia (CMS/HCC V24, CMS/HCC V28); Empyema (CMS/HCC V24, CMS/HCC V28) Discharge Disposition: Home-Health Care Svc from Last 3 Months Social History Tobacco Use Types Packs/Day Years [...] Orientation Straight 08/20/2024 12 :39 PM EDT Obstetrics History Last Filed Vital Signs Vital Sign Reading [...] Mass Index 34.54 08/20/2024 11:43 AM EDT Plan of Treatment Upcoming Encounters Date Type Department Care Team (Late st Contact Info) Description 09/10/2024 2:00 PM EDT Office Visit Thoracic Surgery - [place] [address] [facility] [address] [place] [phone] Jose E Garcia PA [address] [facility] [place] [address] [place] [phone] Health Maintenance Due Date Last Done Comments COVID-19 Vaccine (3 - Moderna risk series) 10/13/2020 09/15/2020, 08/18/2020 RSV Immunization Adult Patients (1 - 1-dose 75+ series) 01/25/2024 Colorectal Cancer Screening: Colonoscopy 08/20/2024 Hepatitis C Screening 08/20/2024 Medicare Annual Wellness Visit 08/20/2024 Osteoporosis Screening (Bone Density Screening) 08/20/2024 Social Influencers of Health Screening 08/20/2024 Depression Screening 11/09/2024 11/10/2023 Influenza Vaccine (Season Ended) 2025 03/14/2021, 03/22/2020, 03/02/2019, Additional history exists Hypertension/CHF/CAD Annual BMP Blood Test 08/24/2025 08/24/2024, 08/23/2024, 08/22/2024, Additional history exists Falls Risk Assessment 08/27/2025 08/27/2024 Cholesterol Screening (Lipid Panel) 07/22/2028 07/23/2023 DTaP,Tdap,and Td Vaccines (3 - Td or Tdap) 03/22/2030 03/22/2020, 04/26/2016 Zoster Vaccines Completed 10/02/2020, 03/22/2020 Pneumococcal Vaccine: 50+ Years Completed 01/19/2024, 03/22/2020, [...] on patient's age to complete this topic MMR Vaccines Aged Out No longer eligi ble based on patient's age to complete this topic Meningococcal ACWY Vaccine Aged Out N o longer eligible based on patient's age to complete this topic Meningococcal B Vaccine Aged Out No l onger eligible based on patient's age to complete this topic RSV Immunization Patients Under 20 months Aged Out No longer eligible based on patient's age to complete this topic Varicella Vaccines Aged Out No longer eligible based [...] AUTO DIFFERENTIAL Routine 08/24/2024 6:51 AM EDT MAGNESIUM Routine 08/24/2024 6:51 AM EDT CBC AND DIFFERENTIAL Routine 08/24/2024 6:51 AM EDT COMPREHENSIVE METABOLIC PANEL Routine 08/24/2024 6:51 AM EDT COMPLETE BLOOD COUNT Timed 08/24/2024 6:51 AM EDT XR CHEST 1 [...] AUTO DIFFERENTIAL Routine 08/23/2024 5:55 AM EDT BASIC METABOLIC PANEL Routine 08/23/2024 5:55 AM EDT CBC AND DIFFERENTIAL Routine 08/23/2024 5:55 AM EDT XR CHEST 1 VIEW Routine 08/23/2024 4:27 AM EDT POCT GLUCOSE BLOOD Routine 08/22/2024 7: 24 PM EDT POCT GLUCOSE BLOOD Routine 08/22/2024 3: 10 PM EDT POCT GLUCOSE BLOOD Routine 08/22/2024 12 :01 PM EDT PEP THERAPY Routine 08/22/2024 8:00 AM EDT POCT GLUCOSE BLOOD Routine 08/22/2024 7: 26 AM EDT VANCOMYCIN, TROUGH Timed 08/22/2024 6: 53 AM EDT CBC WITH AUTO DIFFERENTIAL Routine 08/22/2024 6:53 AM EDT MAGNESIUM Routine 08/22/2024 6:53 AM EDT BASIC METABOLIC PANEL Routine 08/22/2024 6:53 AM EDT CBC AND DIFFERENTIAL Routine 08/22/2024 6:53 AM EDT XR CHEST [...] 08/21/2024 11:01 AM EDT Empyema (CMS/HCC V24, CMS/[facility] V28) TH AN ENDOTRACHEAL(NO CHARGE) Routine 08/21/2024 10:17 AM EDT THORACOSCOPY DECORTICATION 08/21/2024 9:43 AM EDT Acute [...] GUIDANCE LEFT Routine 08/20/2024 6:07 PM EDT NON-GYNECOLOGIC CYTOLOGY Routine 08/20/2024 6:03 PM EDT DIFFERENTIAL BODY FLUID Routine 08/21/19 6:03 PM EDT CELL COUNT WITH REFLEX DIFFERENTIAL, BODY FLUID Routine 08/20/2024 6:03 PM EDT GLUCOSE, BODY FLUID Routine 08/20/2024 6 :03 PM EDT PROTEIN, BODY FLUID Routine 08/20/2024 6 :03 PM EDT LACTATE DEHYDROGENASE, BODY FLUID Routine 08/20/2024 6:03 PM EDT CULTURE BODY FLUID WITH GRAM STAIN Routine 08/20/2024 6:03 PM EDT MRSA PCR STAT 08/20/2024 3:[address] CHEST W CONTRAST STAT 08/20/2024 2 :13 PM EDT LACTATE STAT 08/20/2024 1:53 PM EDT D-DIMER STAT 08/20/2024 1:53 PM EDT TROPONIN I HIGH SENSITIVITY STAT 08/20/2024 1:53 PM EDT CULTURE BLOOD STAT 08/20/2024 1:53 PM EDT CULTURE BLOOD STAT 08/20/2024 1:53 PM EDT XR CHEST 1 VIEW STAT 08/20/2024 12:48 PM EDT MANUAL DIFFERENTIAL - SYSMEX WAM STAT 08/20/2024 12:11 PM EDT CBC WITH AUTO DIFFERENTIAL STAT 08/20/2024 12:11 PM EDT B-TYPE NATRIURETIC PEPTIDE STAT 08/20/2024 12:11 PM EDT MAGNESIUM STAT 08/20/2024 12:11 PM EDT LIPASE STAT 08/20/2024 12:11 PM EDT COMPREHENSIVE METABOLIC PANEL STAT 08/20/2024 12:11 PM EDT CBC AND DIFFERENTIAL STAT 08/20/2024 12:11 PM EDT TROPONIN I HIGH SENSITIVITY STAT 08/20/2024 12:11 PM EDT ECG 12-LEAD STAT 08/20/2024 11:50 AM EDT from Last 3 Months Results * (ABNORMAL) POCT Glucose, blood (08/27/2024 11:23 AM EDT) Only the most recent of25 resultswithin the time period is included. [facility] Glucose POCT 119(H) 70 - 100 mg/dL 08/27/2024 11:[address] [facility] Blood Capillary blood specimen / Unknown 08/27/2024 11:23 AM EDT 08/27/2024 11:25 AM EDT us Darlene Collazo MD LAB POINT OF CARE T EST DOCKED DEVICE UNSOLICITED RESULTS Final Result [facility] [address] [place] [address], [place] [phone] * SST tube (08/27/2024 6:27 AM EDT) [facility] Extra Tube Hold for add-ons. 08/27/2024 8:[address] [facility] Comment:Auto resulted. Blood Venous blood specimen / Unknown Venipuncture / Unknown 08/27/2024 6:27 AM EDT 08/27/2024 6:45 AM EDT Darlene Collazo MD LAB BLOOD ORDERABLES Final Result [facility] [address] [place] [address], * CBC - Every 3 Days (08/27/2024 6:27 AM EDT) Only the most recent of2 resultswithin the time period is included. [facility] WBC 10.1 4.8 - 10.8 K/mcL LAB HEMETOLOGY METHOD 08/27/2024 7:05 AM [facility] RBC 4.20 3.80 - 4.80 M/mcL LAB HEMETOLOGY METHOD 08/27/2024 7:05 AM [facility] Hemoglobin 12.4 11.5 - 16.0 g/dL LAB HEMETOLOGY METHOD 08/27/2024 7:05 AM [facility] Hematocrit 37.3 35.0 - 47.0 % LAB HEMETOLOGY METHOD 08/27/2024 7:05 AM [facility] MCV 88.8 79.0 - 98.0 FL LAB HEMETOLOGY METHOD 08/27/2024 7:05 AM [facility] MCH 29.5 27.0 - 32.0 pcg LAB HEMETOLOGY METHOD 08/27/2024 7:05 AM [facility] MCHC 33.2 32.0 - 37.0 g/dL LAB HEMETOLOGY METHOD 08/27/2024 7:[address] [facility] RDW 12.8 11.0 - 15.0 % LAB HEMETOLOGY METHOD 08/27/2024 7:[address] [facility] Platelets 305 130 - 400 K/mcL LAB HEMETOLOGY METHOD 08/27/2024 7:[address] [facility] MPV 10.7 7.0 - 11.0 FL LAB HEMETOLOGY METHOD 08/27/2024 7:[address] [facility] NRBC 0.0 <1.0 % LAB HEMETOLOGY METHOD 08/27/2024 7:[address] [facility] NRBC Absolute 0.00 <0.10 K/mcL LAB HEMETOLOGY METHOD 08/27/2024 7:[address] [facility] Blood Venous blood specimen / Unknown Venipuncture / Unknown 08/27/2024 6:27 AM EDT 08/27/2024 6:45 AM EDT us Kelsey Cooper MD LAB BLOOD ORDERABLES Final Resul t [facility] [address] [place] [address], [place] [phone] * XR Chest 1 View (08/27/2024 5:36 AM EDT) Only the most recent of10 resultswithin the time period is included. Anatomical Region Laterality Modality Body Radiographic Jessica ging 08/27/2024 9:03 AM EDT Impressions 08/27/2024 9:05 AM EDT No significant interval change. -------- FINAL REPORT -------- Dictated By: Jossue Benitez Dictated Date: 08/27/2024 09:03 ET Assigned Physician: Jossue Benitez Reviewed and Electronically Signed By: Jossue Benitez Signed Date: 08/27/2024 09:05 ET Workstation ID: [id number] Transcribed By: Self Edit Transcribed Date: 08/27/2024 [...] Signed Date: 08/27/2024 09:05 ET Workstation ID: [id number] Transcribed By: Self Edit Transcribed Date: 08/27/2024 09:03 ET us Savanah Davenport LICENSED OCCUPATIONAL THERAPY ASSISTANT IMG XR PROCEDURES Final Res ult * ECG 12 lead (08/26/2024 1:10 PM EDT) Only the most recent of3 resultswithin the time period is included. Ventricular Rate ECG 76 BPM GEMUSE Atrial Rate 76 BPM GEMUSE P-R Interval 128 ms GEMUSE QRS Duration 132 ms GEMUSE Q-T Interval 414 ms GEMUSE QTc 465 ms GEMUSE P Wave [place] 60 degrees GEMUSE R [place] 7 degrees GEMUSE T [place] 21 degrees GEMUSE ECG Interpretation Normal sinus rhythm Right bundle branch block Abnormal ECG When compared with ECG of 23-AUG-2024 13:18, No significant change was found Confirmed by ROBERTO OROZCO ([id number]) on 08/26/2024 9:41:11 PM GEMUSE 08/26/2024 1:10 PM EDT 08/26/2024 9:41 PM EDT us Darlene Collazo MD ECG ORDERABLES Final Resul t GEMUSE * XR Chest 2 Views (08/26/2024 9:56 [...] prior. -------- FINAL REPORT -------- Dictated By: SAURAV CULP Dictated Date: 08/26/2024 10:16 ET Assigned Physician: SAURAV CULP Reviewed and Electronically Signed By: SAURAV CULP Signed Date: 08/26/2024 10:21 ET Workstation ID: [id number] Transcribed By: Self Edit Transcribed Date: 08/26/2024 10:16 ET Narrative 08/26/2024 10:21 AM EDT XR CHEST 2 VIEWS INDICATION: ??Shortness of breath TECHNIQUE: XR CHEST 2 VIEWS COMPARISON: 08/26/2024 Procedure Note Saurav Culp MD - 08/26/2024 XR CHEST 2 VIEWS INDICATION: Shortness of breath TECHNIQUE: XR CHEST 2 VIEWS COMPARISON: 08/26/2024 IMPRESSION: FINDINGS/IMPRESSION: Small left pleural effusion with adjacent opacity,similar compared to prior. No pneumothorax. Air in the left lateralchest wall and left supraclavicular region, unchanged. Right lung isrelatively clear. Cardiac silhouette and bones are stable compared toprior. -------- FINAL REPORT -------- Dictated By: SAURAV CULP Dictated Date: 08/26/2024 10:16 ET Assigned Physician: SAURAV CULP Reviewed and Electronically Signed By: SAURAV CULP Signed Date: 08/26/2024 10:21 ET Workstation ID: [id number] Transcribed By: Self Edit Transcribed Date: 08/26/2024 10:16 ET us Darlene Collazo MD IMG XR PROCEDURES Final Res ult * (ABNORMAL) CBC auto differential (08/24/2024 6:51 AM EDT) Only the most recent of5 resultswithin the time period is included. WBC 10.9(H) 4.8 - 10.8 K/mcL LAB HEMETOLOGY METHOD 08/24/2024 7:29 AM [facility] RBC 3.70(L) 3.80 - 4.80 M/mcL LAB HEMETOLOGY METHOD 08/24/2024 7:29 AM [facility] Hemoglobin 11.1(L) 11.5 - 16.0 g/dL LAB HEMETOLOGY METHOD 08/24/2024 7:29 AM [facility] Hematocrit 34.0(L) 35.0 - 47.0 % LAB HEMETOLOGY METHOD 08/24/2024 7:29 AM [facility] MCV 92.6 79.0 - 98.0 FL LAB HEMETOLOGY METHOD 08/24/2024 7:29 AM [facility] MCH 30.2 27.0 - 32.0 pcg LAB HEMETOLOGY METHOD 08/24/2024 7:29 AM [facility] MCHC 32.6 32.0 - 37.0 g/dL LAB HEMETOLOGY METHOD 08/24/2024 7:29 AM [facility] RDW 13.1 11.0 - 15.0 % LAB HEMETOLOGY METHOD 08/24/2024 7:29 AM [facility] Platelets 268 130 - 400 K/mcL LAB HEMETOLOGY METHOD 08/24/2024 7:29 AM [facility] MPV 11.0 7.0 - 11.0 FL LAB HEMETOLOGY METHOD 08/24/2024 7:29 AM [facility] NRBC 0.0 <1.0 % LAB HEMETOLOGY METHOD 08/24/2024 7:29 AM [facility] NRBC Absolute 0.00 <0.10 K/mcL LAB HEMETOLOGY METHOD 08/24/2024 7:29 AM [facility] Neutrophils Relative 80.3 % LAB HEMETOLOGY METHOD 08/24/2024 7:29 AM [facility] Lymphocytes Relative 10.4 % LAB HEMETOLOGY METHOD 08/24/2024 7:29 AM [facility] Monocytes Relative 8.0 % LAB HEMETOLOGY METHOD 08/24/2024 7:29 AM [facility] Eosinophils Relative 0.6 % LAB HEMETOLOGY METHOD 08/24/2024 7:29 AM [facility] Basophils Relative 0.1 % LAB HEMETOLOGY METHOD 08/24/2024 7:29 AM [facility] Immature Granulocytes Relative 0.6 % LAB HEMETOLOGY METHOD 08/24/2024 7:29 AM [facility] Neutrophils Absolute 8.71(H) 1.50 - 7.00 K/mcL LAB HEMETOLOGY METHOD 08/24/2024 7:29 AM [facility] Lymphocytes Absolute 1.13 1.00 - 5.00 K/mcL LAB HEMETOLOGY METHOD 08/24/2024 7:[address] [facility] Monocytes Absolute 0.87 0.20 - 1.00 K/mcL LAB HEMETOLOGY METHOD 08/24/2024 7:[address] [facility] Eosinophils Absolute 0.07 0.00 - 0.50 K/mcL LAB HEMETOLOGY METHOD 08/24/2024 7:[address] [facility] Basophils Absolute 0.01 0.00 - 0.20 K/mcL LAB HEMETOLOGY METHOD 08/24/2024 7:[address] [facility] Immature Granulocytes Absolute 0.06(H) 0.00 - 0.03 K/mcL LAB HEMETOLOGY METHOD 08/24/2024 7:[address] [facility] Blood Venous blood specimen / Unknown Venipuncture / Unknown 08/24/2024 6:51 AM EDT 08/24/2024 7:11 AM EDT us Kelsey Cooper MD LAB BLOOD ORDERABLES Final Resul t Performing Organization Address City/[facility]/ZIP Co de Phone Number [facility] [address] [place] [address], * Magnesium (08/24/2024 6:51 AM EDT) Only the most recent of4 resultswithin the time period is included. Magnesium 2.1 1.9 - 2.6 mg/dL LAB CHEMISTRY METHOD 08/24/2024 7:[address] [facility] Blood Venous blood specimen / Unknown Venipuncture / Unknown 08/24/2024 6:51 AM EDT 08/24/2024 7:11 AM EDT us Kelsey Cooper MD LAB BLOOD ORDERABLES Final Resul t Performing Organization Address City/[facility]/ZIP Co de Phone Number [facility] [address] [place] [address], * (ABNORMAL) Comprehensive metabolic panel (08/24/2024 6:51 AM EDT) Only the most recent of2 resultswithin the time period is included. Sodium 141 133 - 145 mmol/L LAB CHEMISTRY METHOD 08/24/2024 8:09 AM [facility] Potassium 3.9 3.5 - 5.5 mmol/L LAB CHEMISTRY METHOD 08/24/2024 8:09 AM [facility] Chloride 112(H) 96 - 110 mmol/L LAB CHEMISTRY METHOD 08/24/2024 8:09 AM [facility] CO2 25 21 - 32 mmol/L LAB CHEMISTRY METHOD 08/24/2024 8:09 AM [facility] Anion Gap 4 3 - 11 LAB CHEMISTRY METHOD 08/24/2024 8:09 AM [facility] Glucose 116(H) 70 - 100 mg/dL LAB CHEMISTRY METHOD 08/24/2024 8:09 AM [facility] BUN 21 5 - 25 mg/dL LAB CHEMISTRY METHOD 08/24/2024 8:09 AM [facility] Creatinine 0.86 0.50 - 1.10 mg/dL LAB CHEMISTRY METHOD 08/24/2024 8:09 AM [facility] eGFR 71 >=60 mL/min/1. 73m2 LAB CHEMISTRY METHOD 08/24/2024 8:09 AM [facility] Comment:Calculation based on the??Chronic Kidney Disease Epidemiology Collaboration (CKD-EPI) equation refit??without adjustment for race. BUN/Creatinine Ratio 24.4 LAB CHEMISTRY METHOD 08/24/2024 8:09 AM [facility] Calcium 8.8 8.5 - 10.5 mg/dL LAB CHEMISTRY METHOD 08/24/2024 8:09 AM [facility] AST (SGOT) 18 10 - 42 unit/L LAB CHEMISTRY METHOD 08/24/2024 8:[address] [facility] ALT (SGPT) 56 10 - 60 unit/L LAB CHEMISTRY METHOD 08/24/2024 8:09 AM [facility] Alkaline Phosphatase 72 42 - 121 unit/L LAB CHEMISTRY METHOD 08/24/2024 8:09 AM [facility] Total Protein 5.5(L) 6.0 - 8.0 g/dL LAB CHEMISTRY METHOD 08/24/2024 8:09 AM [facility] Albumin 2.6(L) 3.2 - 5.0 g/dL LAB CHEMISTRY METHOD 08/24/2024 8:09 AM [facility] Total Bilirubin 0.6 0.0 - 1.4 mg/dL LAB CHEMISTRY METHOD 08/24/2024 8:09 AM [facility] Blood Venous blood specimen / Unknown Venipuncture / Unknown 08/24/2024 6:51 AM EDT 08/24/2024 7:11 AM EDT Savanah Davenport NP LAB BLOOD ORDERABLES Final Result [facility] [address] [place] [address], * (ABNORMAL) Basic metabolic panel (08/23/2024 5:55 AM EDT) Only the most recent of3 resultswithin the time period is included. Sodium 141 133 - 145 mmol/L LAB CHEMISTRY METHOD 08/23/2024 7:07 AM [facility] Potassium 3.9 3.5 - 5.5 mmol/L LAB CHEMISTRY METHOD 08/23/2024 7:07 AM [facility] Chloride 110 96 - 110 mmol/L LAB CHEMISTRY METHOD 08/23/2024 7:07 AM [facility] CO2 26 21 - 32 mmol/L LAB CHEMISTRY METHOD 08/23/2024 7:07 AM [facility] Anion Gap 5 3 - 11 LAB CHEMISTRY METHOD 08/23/2024 7:07 AM [facility] Glucose 144(H) 70 - 100 mg/dL LAB CHEMISTRY METHOD 08/23/2024 7:07 AM [facility] BUN 25 5 - 25 mg/dL LAB CHEMISTRY METHOD 08/23/2024 7:07 AM [facility] Comment:Results verified by repeat testing Creatinine 1.27(H) 0.50 - 1.10 mg/dL LAB CHEMISTRY METHOD 08/23/2024 7:07 AM [facility] eGFR 44(L) >=60 mL/min/1. 73m2 LAB CHEMISTRY METHOD 08/23/2024 7:07 AM [facility] Comment:Calculation based on the??Chronic Kidney Disease Epidemiology Collaboration (CKD-EPI) equation refit??without adjustment for race. BUN/Creatinine Ratio 19.7 LAB CHEMISTRY METHOD 08/23/2024 7:07 AM [facility] Calcium 8.8 8.5 - 10.5 mg/dL LAB CHEMISTRY METHOD 08/23/2024 7:07 AM [facility] Blood Venous blood specimen / Unknown Venipuncture / Unknown 08/23/2024 5:55 AM EDT 08/23/2024 6:15 AM EDT us Fabi CAMPBELL LAB BLOOD ORDERABLES Final Re sult [facility] [address] [place] [address], * Vancomycin, trough Please draw level 1 hour prior to vancomycin administration (08/22/2024 6:53 AM EDT) Vancomycin Trough 13.0 10.0 - 20.0 mcg/mL LAB CHEMISTRY METHOD 08/22/2024 7:[address] [facility] Blood Venous blood specimen / Unknown Venipuncture / Unknown 08/22/2024 6:53 AM EDT 08/22/2024 7:11 AM EDT Mariano Coffey MD LAB BLOOD ORDERABLES Final Re sult [facility]) [facility] [address] [place] [address], [place] [phone] * Concentration (08/21/2024 2:34 PM EDT) AFB Concentration Performed 3:05 PM EDT [facility] Tissue Structure of left pleural cavity / Unknown Non-blood Collection / Unknown 08/21/2024 2:34 PM EDT 08/21/2024 3:43 PM EDT Narrative [facility] - 08/24/2024 3:05 PM EDT Performed at: ??01 - [facility] [address] ??[id number] Rock Dust Sprayer: Ivis Colmenares MD, Phone: ??[phone] us Geraldo Gomez MD LAB BLOOD ORDERABLES Final Resul t Performing Organization Address City/[facility]/ZIP Co de Phone Number [facility] * Acid fast bacilli stain (08/21/2024 2:34 PM EDT) AFB Stain Result No Acid fast bacilli seen on direct smear (Fuchsin method, 1000x) No Acid Fast Bacilli seen on direct smear 08/21/2024 5:[address] [facility] Tissue Structure of left pleural cavity / Unknown Non-blood Collection / Unknown 08/21/2024 2:34 PM EDT 08/21/2024 3:43 PM EDT us Geraldo Gomez MD LAB MICROBIOLOGY - GENERAL ORDER ARELY Final Result Performing Organization Address [facility]/ZIP Co de Phone Number [facility] [address] [place] [address], [place] [phone] * Culture tissue with gram stain (08/21/2024 11:21 AM EDT) Culture, Tissue No growth aerobically and anaerobically at 5 days. 08/26/2024 7:[address] [facility] Gram Stain Result Few Polymorphonuclear leukocytes 08/26/2024 7:[address] [facility] Gram Stain Result No organisms seen 08/26/2024 7:[address] [facility] Gram Stain Result No epithelial cells seen 08/26/2024 7:[address] [facility] Tissue Structure of left pleural cavity / Unknown 08/21/2024 11:21 AM EDT 08/21/2024 1:03 PM EDT us Geraldo Gomez MD LAB MICROBIOLOGY - GENERAL ORDER ARELY Final Result Performing Organization Address [facility] de Phone Number [facility] [address] [place] [address], [place] [phone] * Culture fungal, other (08/21/2024 11:21 AM EDT) Culture, Fungus Negative for Fungus after 4 Weeks 08/26/2024 10:[address] [facility] Tissue Structure of left pleural cavity / Unknown 08/21/2024 11:21 AM EDT 08/21/2024 1:03 PM EDT us Geraldo Gomez MD LAB MICROBIOLOGY - GENERAL ORDER ARELY Final Result Performing Organization Address [facility]/ZIP Co de Phone Number [facility] [address] [place] [address], [place] [phone] * Tissue exam (08/21/2024 11:10 AM EDT) Final Diagnosis Pleural Cavity, Left-biopsy: -BENIGN FIBROUS PLEURAL PLAQUE 3:[address] [facility] Comment Immunohistology support the diagnosis. Keratin stains NORY and AE1-3 highlight layering of bland mesothelial cells in the plaque. MALINDA-3 is negative. 3:[address] [facility] Gross Description A. Pleural Cavity, Left, : Labeled left pleura . Received in formalin is a rubbery, white, elongate, 1.6 x 0.3 x 0.1 cm tissue fibromembranous portion of tissue which is wrapped in paper and submitted in toto in one cassette, one piece, multiple levels. TS 3:[address] [facility] Disclaimer The immunohistochemistry stains were medically necessary and performed because the additional information was needed by the pathologist to evaluate the mesothelial cell distribution. The immunohistochemical tests and in situ hybridization tests were developed and their performance characteristics were determined by [facility]. They have not been [...] fixed and paraffin embedded. 3:[address] [facility] Tissue Structure of left pleural cavity / Unknown 08/21/2024 11:10 AM EDT 08/23/2024 7:20 AM EDT us Geraldo Gomez MD LAB PATHOLOGY ORDERABLES Final R esult [facility] [address] [place] [address], [place] [phone] * Non-gynecologic cytology (08/21/2024 11:01 AM EDT) Only the most recent of2 resultswithin the time period is included. Final Diagnosis A. Pleural fluid left-thoracentes is (ThinPrep, cell block): No malignant cells identified 08/24/2024 12:[address] [facility] Specimen A Adequacy Satisfactory for evaluation 08/24/2024 12:[address] [facility] Gross Description A. Pleural Cavity, Left, left pleural fluid: Received 5 ml of red cloudy fluid; 1 ThinPrep, 1 Cell block Cell block in formalin @0900; total formalin fixation time 12 hours. 08/24/2024 12:[address] [facility] Disclaimer Unless otherwise specified, all tissue is 10% NB formalin fixed and paraffin embedded. Technical cytopathology services provided by [facility], at [address] [place] [address] (CLIA # [id number]/Lisa Sánchez MD, Senior Games Technician.) 08/24/2024 12:[address] [facility] Pleural Fluid Structure of left pleural cavity / Unknown 08/21/2024 11:01 AM EDT 08/23/2024 8:47 AM EDT us Geraldo Gomez MD LAB CYTOLOGY ORDERABLES Final Re sult [facility] [address] [place] [address], [place] [phone] * TH AN ENDOTRACHEAL(NO CHARGE) (08/21/2024 10:17 AM EDT) Narrative Ellis Putnam CRNA - 08/21/2024 10:17 AM EDT Ellis Putnam CRNA ? 08/21/2024 10:18 AM General Information and Staff Patient location during procedure: OR Resident/ARCHIVAL STUDIES PROFESSOR: Ellis Putnam CRNA Performed: resident/ARCHIVAL STUDIES PROFESSOR/CAA Performed by: Ellis Putnam CRNA Authorized by: Jake Garcia DO ?? Intubation Airway not difficult Urgency: elective Final Airway Details Successful airway: ETT - double lumen left Cuffed: yes Successful intubation technique: direct laryngoscopy Endotracheal tube insertion site: oral Blade: Bernardo Blade size: #3 ETT DL size (fr): 35 Cormack-Lehane Classification: grade I - full view of glottis Placement verified by: capnometry Placement verification comments: (Fiberoptic verification) Measured from: teeth ETT to teeth (cm): 29 Number of attempts at approach: 1Final airway type: endotracheal airway Indications and Patient Condition Indications for airway management: anesthesia Preoxygenated: yes Dentition Unchanged: Yes Patient position: neutral Mask difficulty assessment: 2 - vent by mask + OA or adjuvant +/- NMBA Start Time: 08/21/2024 9:54 AMStop Time: 08/21/2024 9:58 AM us Jake Garcia DO ANESTHESIA ORDERABLES Final Result * MRSA molecular study (08/21/2024 9:30 AM EDT) Only the most recent of2 resultswithin the time period is included. MRSA Screen PCR Not Detected Not Detected LAB MICROBIOLOGY METHOD 08/21/2024 11:[address] [facility] Swab Both anterior nares / Unknown Non-blood Collection / Unknown 08/21/2024 9:30 AM EDT 08/21/2024 10:07 AM EDT us Kelsey Cooper MD LAB MICROBIOLOGY - GENERAL ORDER ARELY Final Result [facility] [address] [place] [address], * ECG-Annotated (08/21/2024) us Provider Onbase MD ECG ORDERABLES Final Result * Troponin I high sensitivity (08/20/2024 7:13 PM EDT) Only the most recent of3 resultswithin the time period is included. [facility] High Sensitivity Troponin I 8 <=54 ng/L LAB CHEMISTRY METHOD 08/20/2024 8:[address] [facility] Blood Venous blood specimen / Unknown Venipuncture / Unknown 08/20/2024 7:13 PM EDT 08/20/2024 7:[address] [facility] - 08/20/2024 8:03 PM EDT High levels of biotin in samples may falsely decrease hsTroponin values. ??Use caution when interpreting hsTroponin results in patients taking biotin who exhibit renal impairment (eGFR <60) or in patients taking more than 20 mg/day of biotin. Adri CAMPBELL LAB BLOOD ORDERABLES Final Re sult [facility] [address] [place] [address], [place] [phone] * ECG 12 lead - Procedural (No Charge) (08/20/2024 7:07 PM EDT) [facility] Ventricular Rate ECG 66 BPM GEMUSE Atrial Rate 66 BPM GEMUSE P-R Interval 154 ms GEMUSE QRS Duration 146 ms GEMUSE Q-T Interval 440 ms GEMUSE QTc 461 ms GEMUSE P Wave [place] 38 degrees GEMUSE R [place] 0 degrees GEMUSE T [place] 21 degrees GEMUSE ECG Interpretation Normal sinus rhythm Right bundle branch block Abnormal ECG When compared with ECG of 20-AUG-2024 11:50, (unconfirmed) No significant change was found Confirmed by BALTA PEOPLES ([id number]) on 08/21/2024 11:30:30 AM GEMUSE 08/20/2024 7:07 PM EDT 08/21/2024 11:30 AM EDT Mariano Coffey MD ECG ORDERABLES Final Result Performing Organization Address City/[facility]/ZIP Co de Phone Number GEMUSE * Type and screen (08/20/2024 7:05 PM EDT) ABO Group O 08/20/2024 8:[address] [facility] Rh Type Positive 08/20/2024 8:[address] [facility] Antibody Screen Negative 08/20/2024 8:[address] [facility] Blood Venous blood specimen / Unknown Venipuncture / Unknown 08/20/2024 7:05 PM EDT 08/20/2024 7:32 PM EDT us Jose E CAMPBELL LAB BLOOD BANK TEST ORDE RABLES Final Result Performing Organization Address [facility] de Phone Number [facility] [address] [place] [address], * IR Pleural Drain Insert Cath w [...] Signed Date: 08/20/2024 18:03 ET Workstation ID: [id number] Transcribed By: Self Edit Transcribed Date: 08/20/2024 [...] Signed Date: 08/20/2024 18:03 ET Workstation ID: [id number] Transcribed By: Self Edit Transcribed Date: 08/20/2024 18:00 ET Jose E CAMPBELL IMG IR PROCEDURES Final Result * Cell count with reflex differential, body fluid (08/20/2024 6:03 PM EDT) Body Fluid Total Nucleated Cells 8,107 /mm3 LAB HEMETOLOGY METHOD 08/20/2024 7:[address] [facility] Body Fluid RBC 6,000 /mm3 LAB HEMETOLOGY METHOD 08/20/2024 7:[address] [facility] Body Fluid Color Erika 08/20/2024 7:[address] [facility] Body Fluid Clarity Cloudy 08/20/2024 7:[address] [facility] Body Fluid Source Pleural 08/20/2024 7:[address] [facility] Pleural Fluid Structure of left pleural cavity / Unknown Non-blood Collection / Unknown 08/20/2024 6:03 PM EDT 08/20/2024 6:[address] [facility] - 08/20/2024 7:55 PM EDT No reference ranges have been established for body fluids. Clinical correlation recommended. us Jose E CAMPBELL LAB BODY FLUIDS AND STOO LS ORDERABLES Final Result [facility] [address] [place] [address], * (ABNORMAL) Culture body fluid with gram stain (08/20/2024 6:03 PM EDT) Fluid Culture No growth at 3 days LAB MICROBIOLOGY METHOD 08/23/2024 10:[address] [facility] Gram Stain Result Many Polymorphonuclear leukocytes(A) 08/23/2024 10:[address] [facility] Gram Stain Result No Epithelial cells(A) 08/23/2024 10:[address] [facility] Gram Stain Result Few Gram positive cocci in pairs and clusters(A) 08/23/2024 10:[address] [facility] Pleural Fluid Structure of left pleural cavity / Unknown Non-blood Collection / Unknown 08/20/2024 6:03 PM EDT 08/20/2024 6:30 PM EDT us Jose E CAMPBELL LAB MICROBIOLOGY - GENER AL ORDERABLES Final Result [facility] [address] [place] [address], [place] [phone] * Differential body fluid (08/20/2024 6:03 PM EDT) Fluid Neutrophils % 2 % 08/20/2024 7:[address] [facility] Fluid Lymphocytes % 30 % 08/20/2024 7:[address] [facility] Fluid Monocytes/Macrop hages 4 % 08/20/2024 7:[address] [facility] Fluid Eosinophils % 61 % 08/20/2024 7:[address] [facility] Fluid Basophils % 3 % 08/20/2024 7:[address] [facility] Fluid Other Cells % 0 % 08/20/2024 7:[address] [facility] Pleural Fluid Structure of left pleural cavity / Unknown Non-blood Collection / Unknown 08/20/2024 6:03 PM EDT 08/20/2024 6:[address] [facility] - 08/20/2024 7:55 PM EDT No reference ranges have been established for body fluids. Clinical correlation recommended. Jose E CAMPBELL LAB BODY FLUIDS AND STOO LS ORDERABLES Final Result Performing Organization Address [facility] Co de Phone Number [facility] [address] [place] [address], [place] [phone] * Protein, body fluid (08/20/2024 6:03 PM EDT) Protein, Fluid 5.2 See Comment g/dL LAB CHEMISTRY METHOD 08/20/2024 7:[address] [facility] Pleural Fluid Structure of left pleural cavity / Unknown Non-blood Collection / Unknown 08/20/2024 6:03 PM EDT 08/20/2024 6:31 PM EDT [facility] - 08/20/2024 7:26 PM EDT No reference ranges have been established for body fluids. Clinical correlation recommended. Jose E CAMPBELL LAB BODY FLUIDS AND STOO LS ORDERABLES Final Result Performing Organization Address [facility] Co de Phone Number [facility] [address] [place] [address], [place] [phone] * Lactate dehydrogenase, body fluid (08/20/2024 6:03 PM EDT) Pathologist [facility] LD, Fluid 266 See Comment unit/L LAB CHEMISTRY METHOD 08/20/2024 7:[address] [facility] Pleural Fluid Structure of left pleural cavity / Unknown Non-blood Collection / Unknown 08/20/2024 6:03 PM EDT 08/20/2024 6:31 PM EDT [facility] - 08/20/2024 7:26 PM EDT No reference ranges have been established for body fluids. Clinical correlation recommended. Jose E CAMPBELL LAB BODY FLUIDS AND STOO LS ORDERABLES Final Result Performing Organization Address [facility] Co de Phone Number [facility] [address] [place] [address], [place] [phone] * Glucose, body fluid (08/20/2024 6:03 PM EDT) Glucose, Fluid 108 See Comment mg/dL LAB CHEMISTRY METHOD 08/20/2024 7:[address] [facility] Pleural Fluid Structure of left pleural cavity / Unknown Non-blood Collection / Unknown 08/20/2024 6:03 PM EDT 08/20/2024 6:[address] [facility] - 08/20/2024 7:26 PM EDT No reference ranges have been established for body fluids. Clinical correlation recommended. us Jose E CAMPBELL LAB BODY FLUIDS AND STOO LS ORDERABLES Final Result Performing Organization Address [facility] Co de Phone Number [facility] [address] [place] [address], [place] [phone] * CT Chest w Contrast (08/20/2024 2:13 [...] Signed Date: 08/20/2024 14:50 ET Workstation ID: [id number] Transcribed By: Self Edit Transcribed Date: 08/20/2024 [...] Signed Date: 08/20/2024 14:50 ET Workstation ID: [id number] Transcribed By: Self Edit Transcribed Date: 08/20/2024 14:35 ET us Yessy Cosme DO IMG CT PROCEDURES Final R esult * Blood culture (08/20/2024 1:53 PM EDT) Only the most recent of2 resultswithin the time period is included. [facility] Culture, Blood No growth at 5 days 08/25/2024 3:[address] [facility] Blood Venous blood specimen / Unknown Venipuncture / Unknown 08/20/2024 1:53 PM EDT 08/20/2024 2:03 PM EDT [employer] [facility] LAB MICROBIOLOGY - GENERA L ORDERABLES Final Result Performing Organization Address [facility]/ZIP Co de Phone Number [facility] [address] [place] [address], [place] [phone] * (ABNORMAL) D-dimer, quantitative (08/20/2024 1:53 PM EDT) [facility] D-Dimer, Quant (D-DU) 516(H) <=230 ng/mL DDU LAB COAGULATION METHOD 08/20/2024 2:[address] [facility] Blood Venous blood specimen / Unknown Venipuncture / Unknown 08/20/2024 1:53 PM EDT 08/20/2024 2:[address] [facility] - 08/20/2024 2:18 PM EDT D-Dimer <230 ng/mL (D-Dimer units) is the threshold for exclusion of DVT/PE. D-Dimer may be elevated in: Critically ill, severely infected, trauma patients, DIC, acute CVA, acute HI, unstable angina, AF, old age, , and smoking. D-Dimer may be decreased with: Initiation of heparin therapy and oral anticoagulants. [email or web address] [employer]over Pri[facility] [employer] LAB BLOOD ORDERABLES Veronica l Result Performing Organization Address [facility]/ZIP Co de Phone Number [facility] [address] [place] [address], [place] [phone] * Lactate (08/20/2024 1:53 PM EDT) [facility] Lactate 0.9 0.4 - 2.0 mmol/L LAB CHEMISTRY METHOD 08/20/2024 2:[address] [facility] Blood Venous blood specimen / Unknown Venipuncture / Unknown 08/20/2024 1:53 PM EDT 08/20/2024 2:02 PM EDT Yessy Yost Cosme DO LAB BLOOD ORDERABLES Veronica l Result [facility] [address] [place] [address], [place] [phone] * (ABNORMAL) Manual differential (08/20/2024 12:11 PM EDT) [facility] Neutrophils % 68.0 % LAB HEMETOLOGY METHOD 08/20/2024 1:[address] [facility] Lymphocytes % 6.0 % LAB HEMETOLOGY METHOD 08/20/2024 1:[address] [facility] Reactive Lymphocyte 2.00 % LAB HEMETOLOGY METHOD 08/20/2024 1:[address] [facility] Monocytes % 5.0 % LAB HEMETOLOGY METHOD 08/20/2024 1:[address] [facility] Eosinophils % 20.0 % LAB HEMETOLOGY METHOD 08/20/2024 1:[address] [facility] Basophils % 0.0 % LAB HEMETOLOGY METHOD 08/20/2024 1:[address] [facility] Neutrophils Absolute Manual 8.98(H) 1.50 - 7.00 K/mcL LAB HEMETOLOGY METHOD 08/20/2024 1:[address] [facility] Lymphocytes Absolute 0.79(L) 1.00 - 5.00 K/mcL LAB HEMETOLOGY METHOD 08/20/2024 1:[address] [facility] Reactive Lymph Abs Manual 0.26(H) 0.00 - 0.00 lym LAB HEMETOLOGY METHOD 08/20/2024 1:[address] [facility] Monocytes Absolute Manual 0.66 0.20 - 1.00 K/mcL LAB HEMETOLOGY METHOD 08/20/2024 1:[address] [facility] Eosinophils Absolute Manual 2.64(H) 0.00 - 0.50 K/mcL LAB HEMETOLOGY METHOD 08/20/2024 1:[address] [facility] Basophils Absolute Manual 0.00 0.00 - 0.20 K/mcL LAB HEMETOLOGY METHOD 08/20/2024 1:[address] [facility] Rbc Morphology Consistent with indices Consistent with indices, Normal for LAB HEMETOLOGY METHOD 08/20/2024 1:[address] [facility] Platelet Morphology - WAM See Note(A) Normal LAB HEMETOLOGY METHOD 08/20/2024 1:[address] [facility] Comment:PLT: Normal Blood Venous blood specimen / Unknown Venipuncture / Unknown 08/20/2024 12:11 PM EDT 08/20/2024 12:31 PM EDT Chase Preston MD LAB BLOOD ORDERABLES Final Result [facility] [address] [place] [address], * B-type natriuretic peptide (08/20/2024 12:11 PM EDT) BNP 4 <=100 pcg/mL LAB CHEMISTRY METHOD 08/20/2024 1:[address] [facility] Blood Venous blood specimen / Unknown Venipuncture / Unknown 08/20/2024 12:11 PM EDT 08/20/2024 12:31 PM EDT Chase Preston MD LAB BLOOD ORDERABLES Final Result Performing Organization Address City/[facility]/ZIP Co de Phone Number [facility] [address] [place] [address], [place] [phone] * (ABNORMAL) Lipase (08/20/2024 12:11 PM EDT) Lipase 98(H) 13 - 75 unit/L LAB CHEMISTRY METHOD 08/20/2024 1:[address] [facility] Blood Venous blood specimen / Unknown Venipuncture / Unknown 08/20/2024 12:11 PM EDT 08/20/2024 12:31 PM EDT Chase Preston MD LAB BLOOD ORDERABLES Final Result Performing Organization Address [facility] Co de Phone Number [facility] [address] [place] [address], [place] [phone] from Last 3 Months Insurance [facility] Member Subscriber Plan / Payer (Ef fective 2023-Present) Name:Margarita Zamora Relation to Subscriber:Self Name:Margarita Zamora Payer ID:[id number] Group ID:Not on file Type:Not on file Address: [address] [place] [place] [id number] Advance Directives * Full Code - Confirmed (Latest Code Status on File) Date Activated Date Inactivated Comments 08/20/2024 7:25 PM 08/27/2024 3:[address] atus was ascertained in the following way: Code status discussion: discussion with patient and family at bedside To update the patient's code status, place a code status order. Do not modify or discontinue any currently active code status orders. * Full Code - Default Date Activated Date Inactivated Comments 08/20/2024 4:09 PM 08/20/2024 7:25 PM This is orde r is used when code status has not been discussed with the patient, or code status is otherwise unknown/unconfirmed To update the patient's code status, place a code status order. Do not modify or discontinue any currently active code status orders. Care Teams [employer] Section Foreman Relationship Specialty Start Date End Date Mary Flores MD [address] [place] [id number] PCP - General Advertisement Compositor 08/25/24
--- OUTSIDE RECORDS SUMMARY | 2024-08-31 11:56 | XMS_ITS | Continuity of Care Document ---
Author Organization [facility] Address [address] [place] [address] Phone Care Team Providers Care Medical Clinic Manager Name Role Phone Juan DE LA TORRE, [...] Mins- [place] & [place] [facility], [address] [place] [address] [address], [place], [id number], [place] tel:[phone] [place] Venous insufficiency (chronic) (peripheral) 5 Juan DE LA TORRE RVT, HAMLET Simon. [address], [address], [facility], [place], [id number] , [place]. [phone] Referring Provider: Mary Flores MD, [address] [place] [address], [address]. tel:[phone] [place] [facility], [address] [place] [address] [address], [id number], [place] [phone] [place] Pain in right leg 5 Juan DE LA TORRE RVT, HAMLET Simon. [address] [place] [address], [facility], [place], [id number] , [place]. [phone] Referring Provider: Mary Flores MD, [address] [place] [address], [address]. tel:[phone] [place] [facility], [address] [place] [address] [address], [id number], [place] tel:[phone] [place] Encounter for follow-up examination after completed treatment for conditions other than malignant neoplasmPain in right leg 4 Juan DE LA TORRE RVT, HAMLET Simon. [address], [facility] [address], [facility], [place], [id number] , [place]. [phone] Referring Provider: Mary Flores MD, [address] [place] [address], [address]. tel:[phone] [place] [facility], [address] [place] [address] [address], [id number], [place] tel:[phone] [place] Varicose veins of right lower extremity with other complications 4 uJan DE LA TORRE RVT, HAMLET Simon. [address] [facility] [address], [facility], [place], [id number] , [place]. [phone] Referring Provider: Mary Flores MD, [address] [place] [address], [address]. tel:[phone] [place] [facility], [address] [place] [address] Dr [address], [id number], [place] tel:[phone] CVR - [place] No Information Nov-0 4 Juan DE LA TORRE RVT, HAMLET Simon. [address], [address], [facility], [place], [id number] , [place]. tel:[phone] Offic/outpt E&m Estab 5 Min Trial- [place] & [place] [facility], [address] [place] [address] Dr [address] [place], [id number], [place] tel:[phone] [facility] [place] Chronic venous hypertension (idiopathic) with other complications of bilateral lower extremity Oct- 4 Juan DE LA TORRE RVT, HAMLET Simon. [address] [place] [address], [facility], [place], [id number] , [place]. tel:[phone] Referring Provider: Mary Flores MD, [address] [place] [address], [address]. tel:[phone] Offic Cons New/estab Mod 40 Mi- CT & [place] [facility], [address] [place] [address] Dr [address], [id number], [place] tel:[phone] [facility] Hereditary lymphedemaCramp and spasmChronic venous hypertension (idiopathic) with other complications of bilateral lower extremityPain in right legPain in left legRestless legs syndromeVenous insufficiency (chronic) (peripheral)Lym phedema, not elsewhere classifiedLocal ized edema Sep-0 4 Juan DE LA TORRE RVT, HAMLET Simon. [address], [place] [address], [facility], [place], [id number] , [place]. tel:[phone] Referring Provider: Mary Flores MD, [address] [place] [address], [address]. tel:[phone] [place] [facility], [address] [place] [address] Dr [address]Su[address]ell [place], [id number], [place] tel:[phone] CVR [facility] Chronic venous hypertension (idiopathic) with other complications of bilateral lower extremity Juan DE LA TORRE, RVT, RPVI Alfred. [address], [address], [place], [place], [id number] , . tel:[phone] Referring Provider: Mary Flores MD, [address] [place], [address]. tel:[phone] Family History Family Member Type Diagnosis Age At Onset No Information Payers Payer name Insurance type Covered alliance party ID Rosalind lemus(s) [facility] CI [id number] Social History Type Description Quantity Date Captured [...] No Information Instructions Date Instruction Additional Infor hcarlie Diet education Related to Body mass index [...]
--- OUTSIDE RECORDS SUMMARY | 2024-08-31 11:56 | XMS_ITS | Encounter Summary ---
Author Organization [employer] Address [address] [place] [address] Care Team Providers Care Silk Weaver Name Role Phone Mary Flores MD Primary Care Provider [phone] Encounter Details Date Type Department Care Team ([facility] st Contact Info) Description 08/27/2022 Orders Only [facility] [address] [place] [address] Mary Flores MD [address] [place] [address] Social History Tobacco Use Types Packs/Day Years [...] on filedocumented in this encounter Care Teams Silk Weaver Relationship Specialty Start Date End Date Mary Flores MD [address] [place] [address] PCP - General Family Medicine 01/05/22 documented as of this encounter
--- OUTSIDE RECORDS SUMMARY | 2024-08-31 11:56 | XMS_ITS | Encounter Summary ---
Author Organization [employer] Address [address] [place] [address] Care Team Providers Care Therapist Radiation Name Role Phone Mary Flores MD Primary Care Provider Reason for Visit * Reason Comments Med Refill Encounter Details Date Type Department Care Team ([facility] st Contact Info) Description 07/23/2024 Refill [facility] [address] [place], [place] [phone] Mary Flores MD [address] [place], [place] [phone] Social History Tobacco Use Types Packs/Day Years [...] documented as of this encounter Care Teams Therapist Radiation Relationship Specialty Start Date End Date Mary Flores MD [address] [place] [id number] PCP - General Family Medicine 01/05/22 documented as of this encounter
--- OUTSIDE RECORDS SUMMARY | 2024-08-31 11:56 | XMS_ITS | Encounter Summary ---
Author Organization [employer] Address [address] [place] [address] Care Team Providers Care Asphalt Paving Machine Operator Name Role Phone Mary Flores MD Primary Care Provider [phone] Encounter Details Date Type Department Care Team (Late st Contact Info) Description 09/12/2023 Orders Only [facility] [address] [place] [address] ProviderElliott MD Social History Tobacco Use Types [...] on filedocumented in this encounter Care Teams Asphalt Paving Machine Operator Relationship Specialty Start Date End Date Mary Flores MD [address] [place] [address] PCP - General Family Medicine 01/05/22 documented as of this encounter
--- OUTSIDE RECORDS SUMMARY | 2024-08-31 11:57 | XMS_ITS | Clinical Summary ---
Author Organization [employer] Address [address] [facility] [address] [place] [address] Care Team Providers Care Ornamental Iron Worker Name Role Phone Mary Flores MD Primary Care Provider [phone] Allergies Active Allergy Reactions Criticality Noted Date [...] BEDTIME Active Blood Glucose Monitoring Suppl (FreeStyle [place] Lite) w/Device kit Active cetirizine (ZyrTEC) 10 [...] the skin every 14 (fourteen) days. Active albuterol 108 (90 Base) MCG/ACT inhaler INHALE 2 PUFFS BY MOUTH EVERY 4 TO 6 HOURS NEEDED 022 2024 Discontinued(M ed list cleanup (will not trigger notification to Pharmacy)) GaviLyte-G 236 g solution 2024 Discontinued(M ed list cleanup (will not trigger notification to Pharmacy)) doxycycline (Vibramycin) 100 MG capsule Take 1 capsule by mouth 2 times daily. 025 2024 amoxicillin-clavu lanate (Augmentin) 875-125 MG tabletIndications :Pneumonia due to infectious organism, unspecified laterality, unspecified part of lung Take 1 tablet by mouth 2 times daily for 10 days. 20 tablet 2024 Active Problems Problem Noted Date Diagnosed [...] copies of her exams and [place] from [place] Hiatal hernia 08/06/2021 Obstructive sleep apnea syndrome [...] Description 08/11/2024 9:30 AM EDT Office Visit [facility] [address] [place] [phone] MD Pneumonia due to infectious organism, unspecified laterality, unspecified part of lung (Primary Dx) 08/11/2024 Travel 08/09/[address] [address] Mary Flores MD ER Follow-up 08/06/2024 Orders Only GENERIC EXTERNAL DATA DEPARTMENT Provider, Generic External Data 07/23/[address] [address] Mary Flores MD 07/12/2024 3:30 PM EST Office Visit [address] [address] Mary Flores MD Chronic obstructive pulmonary disease, [...] lumbar intervertebral disc 07/12/2024 Travel 07/08/2024 Telephone [facility] [address] [place] [address] Mary Flores MD Durable Medical Equipment 07/06/2024 Telephone [facility] [address] [place], [place] [phone] Mary Flores MD FYI 07/05/2024 Orders Only GENERIC EXTERNAL DATA DEPARTMENT Provider, Generic External Data 06/14/2024 Refill [facility] [address] [facility] [place] [address] Mary Flores MD from Last 3 Months Immunizations Name Administration [...] is your housing situation today? I have otña cruz 02/24/[address] you [...] 08/11/2024 9:49 AM EDT Plan of Treatment Health Maintenance [...] Screening 08/11/2025 08/11/2024 Eye Exam 04/30/2026 04/30/2024, 04/12, 04/30/2024, Additional [...] Procedure Name Priority Date/Time Associated Diagnosis Comments XR CHEST 2 VIEWS Routine 08/21/2024 9:05 AM EDT CTA CHEST PE PROTOCAL Routine 08/15/2024 3:56 [...] Recently Relevant to Health Maintenance Results * XR Chest 2 Views (08/21/2024 9:05 AM EDT) Only the most recent of2 resultswithin the time period is included. Anatomical Region Laterality Modality Chest Radiographic Jessica ging 08/21/2024 9:05 AM EDT Narrative 08/21/2024 9:07 AM EDT ? [facility] ?[address] ?[place] [address] ?XRay Report ? Signed ? Patient: ZamoraMargarita Daley I ?MR#: ?? [id number] ? : 1950 ?Acct:[id number] ? Age/Sex: 74 / F ?ADM Date: 04/11/25 ? Loc: HO.XRAY ? Attending Dr: Bret Bonner MD ? Ordering Physician: Bret Bonner MD ?? Date of Service: 08/20/24 ?? Procedure(s): XR chest 2V ?? Accession Number(s): [id number] ? cc: Mary Flores; Bret Bonner MD ? CLINICAL HISTORY: J90 - Pleural effusion, not elsewhere classified ? 2 view chest x-ray ? Comparison: 08/15/2024 ? Findings: ?? There is a residual or recurrent left pleural effusion with underlying ?? consolidation. ?? Differential considerations would include pneumonia or atelectasis. ? Heart size is normal. ?? No acute fracture. ? IMPRESSION: ?? 1. Residual versus recurrent left pleural effusion with underlying ?? consolidation, differential considerations noted. ? This document has been electronically signed by: Benoit Barahona MD on ?? 08/21/2024 09:05:48 ? Dictated By: ?Benoit Barahona MD ? Signed By: ?<Electronically signed by Benoit Barahona MD in OV> ?08/21/24 0907 ? DD/ 4 ? TD/TT: 08/21/24904 ? Six Sigma Black Belt Engineer: ? Procedure Note Jonatanchino, Image - 08/21/2024 [place] [address] XRay Report Signed Patient: Margarita Flores IMR#: [id number] : 9Acct:[id number] Age/Sex: 74 / FADM Date: 08/20/24 Loc: CHERYL Attending Dr: Bret Bonner MD Ordering Physician: Bret Bonner MD Date of Service: 08/20/24 Procedure(s): XR chest 2V Accession Number(s): [id number] cc: Mary Flores; Bret Bonner MD CLINICAL HISTORY: J90 - Pleural effusion, not elsewhere classified 2 view chest x-ray Comparison: 08/15/2024 Findings: There is a residual or recurrent left pleural effusion with underlying consolidation. Differential considerations would include pneumonia or atelectasis. Heart size is normal. No acute fracture. IMPRESSION: 1. Residual versus recurrent left pleural effusion with underlying consolidation, differential considerations noted. This document has been electronically signed by: Benoit Barahona MD on 08/21/2024 09:05:48 Dictated By: Benoit Barahona MD Signed By: <Electronically signed by Benoit Barahona MD in OV> 08/21/24906 DD/ 4 TD/TT: 08/21/24904 Six Sigma Black Belt Engineer: [facility] External Provider IMG XR PROCEDURES Final Result * CTA Chest PE Protocal (08/15/2024 3:56 PM EDT) Anatomical Region Laterality Modality Body, Chest Computed Tomogra phy 08/15/2024 3:56 PM EDT Narrative 08/15/2024 3:57 PM EDT ? [facility] ?[address] ?[place], [place] [address] ? [address] Scan Report ? Signed ? Patient: Sera OrdonezMargarita Lobo ?MR#: ?? [id number] ? : 1950 ?Acct:[id number] ? Age/Sex: 74 / F ?ADM Date: 08/15/24 ? Loc: HO.ED ? Attending Dr: ? Ordering Physician: Jose Martin Rome ?? Date of Service: 08/15/24 ?? Procedure(s): CT angio chest PE protocol ?? Accession Number(s): [id number] ? cc: Mary Flores; Jose Martin Rome ? Report Number: ?? [id number]: Total DLP = ??426.00 mGy-cm ? CLINICAL HISTORY: sob, cp ? CT angiography chest with contrast. 3D Postprocessing. ? Comparison: [place] - CT ANGIO CHEST PE PROTOCOL - [...] MD in OV> ? 08/15/247 ? DD/ ? TD/TT: 08/15/24 1556 ? [employer] Sigma Black Belt Engineer: ? Procedure Note Donotvanessainterpreter, Image - 08/15/[address] [address] [address] Scan Report Signed Patient: Margarita Flores IMR#: [id number] : 9Acct:[id number] Age/Sex: 74 / FADM Date: 08/15/24 Loc: HO.ED Attending Dr: Ordering Physician: Jose Martin Rome Date of Service: 08/15/24 Procedure(s): CT angio chest PE protocol Accession Number(s): [id number] cc: Mary Flores; Jose Martin Rome Report Number: [id number]: Total DLP = 426.00 mGy-cm CLINICAL HISTORY: sob, cp CT angiography chest with contrast. 3D Postprocessing. Comparison: [place] - CT ANGIO CHEST PE PROTOCOL - [...] OV> 08/15/24 1557 DD/ 1556 TD/TT: 08/15/24 155 Six Sigma Black Belt Engineer: [facility] External Provider IMG CT PROCEDURES Edited Result - Final * High Sensitivity Troponin I (08/06/2024 10:20 AM EDT) Only the most recent of2 resultswithin the time period is included. TROPONIN I HIGH SENSITIVITY <2.7 <3.5 - 17.0 ng/L [facility] Comment:The Mariscal high sens itivity Troponin-I results should beused in conjunction with other diagnostic information suchas ECG, clinical observations and information, and patientsymptoms to aid in the diagnosis of NV. 08/06/2024 10:2 0 AM EDT 08/06/2024 10:23 AM EDT Generic External Data Provider LAB BLOOD ORDERAB LES Final Result Performing Organization Address City/State/[facility] Co de Phone Number [facility] [address] [place] [address] [phone] * CT Chest w/ Contrast (08/06/2024 9:08 AM EDT) Anatomical Region Laterality Modality Body, Chest Computed Tomogra phy 08/06/2024 9:08 AM EDT Narrative 08/06/2024 9:42 AM EDT ? [facility] ?[address] ?[place] [address] ? CT Scan Report ? Signed ? Patient: Margarita Flores I ?MR#: ?? [id number] ? : 1950 ?Acct:[id number] ? Age/Sex: 74 / F ?ADM Date: //25 ? Loc: HO.ED ? Attending Dr: ? Ordering Physician: Bettina Mccloud ?? Date of Service: 08/06/24 ?? Procedure(s): CT chest w IV con ?? Accession Number(s): [id number] ? cc: Mary Flores; Bettina Mccloud ? Report Number: ?? [id number]: Total DLP = ??250.00 mGy-cm ?? EXAMINATION: [...] MD in OV> ?08/06/24 0940 ? DD/ 09 ? TD/TT: 08/06/24 0928 ? [employer] Black Belt Engineer: ? Procedure Note Donotvanessainterpreter, Image - 08/06/[address] [address] [address] Scan Report Signed Patient: Margarita Flores IMR#: [id number] : 9Acct:[id number] Age/Sex: 74 / FADM Date: 08/06/24 Loc: HO.ED Attending Dr: Ordering Physician: Bettina Mccloud Date of Service: 08/06/24 Procedure(s): CT chest w IV con Accession Number(s): [id number] cc: Mary Flores; Bettina Mccloud Report Number: [id number]: Total DLP = 250.00 mGy-cm EXAMINATION: CT [...] adjacent subsegmental atelectasis. Electronically signed by: Alfred Setwart MD 08/06/2024 09:40 AM EDT RP Dictated By: Alfred Stewart MD Signed By: <Electronically signed by Alfred Stewart MD in OV> 08/06/24939 DD/ 7 TD/TT: 08/06/24927 Six Sigma Black Belt Engineer: [facility] External Provider IMG CT PROCEDURES Final Result * XR Chest 1 View (08/06/2024 7:57 AM EDT) Anatomical Region Laterality Modality Chest Radiographic Jessica ging 08/06/2024 7:57 AM EDT Narrative 08/06/2024 8:27 AM EDT ? [facility] ?[address] ?[place] [address] ?XRay Report ? Signed ? Patient: Margarita Flores I ?MR#: ?? [id number] ? : 1950 ?Acct:[id number] ? Age/Sex: 74 / F ?ADM Date: 08/06/24 ? Loc: HO.ED ? Attending Dr: ? Ordering Physician: Bettina Mccloud ?? Date of Service: 08/06/24 ?? Procedure(s): XR chest 1V ?? Accession Number(s): [id number] ? cc: Mary Flores; Ame,Susanita PA ? EXAMINATION: ??XR CHEST 1 VIEW ? [...] DD/ 0757 ? TD/TT: 08/06/24 0820 ? Six Sigma Black Belt Engineer: ? Procedure Note Kings, Jordon - 08/06/2024 [place] [address] XRay Report Signed Patient: Margarita Flores IMR#: [id number] : 9Acct:[id number] Age/Sex: 74 / FADM Date: 08/06/24 Loc: .ED Attending Dr: Ordering Physician: Bettina Mccloud Date of Service: 08/06/24 Procedure(s): XR chest 1V Accession Number(s): [id number] cc: Mary Flores; Bettina Mccloud EXAMINATION: XR [...] Alfred Stewart MD 08/06/2024 08:24 AM EDT RP Dictated By: Alfred Stewart MD Signed By: <Electronically signed by Alfred Stewart MD in OV> 08/06/24 0824 DD/ 0757 TD/TT: 08/06/24 0820 Six Sigma Black Belt Engineer: [facility] External Provider IMG XR PROCEDURES Final Result * SARS-CoV-2 RNA, Influenza A/B, and RSV RNA, Ql NAAT (08/06/2024 7:38 AM EDT) Influenza A PCR NEGATIVE Negative [facility] Influenza B PCR NEGATIVE Negative [facility] Resp Syncy Virus RNA Qual PCR NEGATIVE Negative [facility] SARS COV2 PCR NEGATIVE Negative [facility] Comment:All test results mus t be [...] use by authorized laboratories.Testing performed on the [employer] GeneXpert utilizingreal-time RT-PCR.All SARS CoV2 and positive influenza A/B results arereported to [facility]. 08/06/2024 7:38 AM EDT 08/06/2024 7:42 AM EDT Generic External Data Provider LAB MICROBIOLOGY - GENERAL ORDERABLES Final Result [facility] [address] [place] [address] [phone] * (ABNORMAL) CBC auto differential (08/06/2024 6:32 AM EDT) Only the most recent of2 resultswithin the time period is included. White Blood Count 9.5 4.8 - 10.8 X10*3/uL [facility] Red Blood Count 4.54 4.20 - 5.50 X10*6/uL [facility] Hemoglobin 13.6 12.0 - 16.0 g/dl [facility] Hematocrit 39.9 37.0 - 47.0 % [facility] Mean Corpuscular Volume 87.9 80.0 - 98.0 fL [facility] Mean Corpuscular Hemoglobin 30.0 27.0 - 33.0 pg [facility] Mean Corpuscular HGB Conc 34.1 31.0 - 35.0 g/dl [facility] Red Cell Distribution Width 12.9 11.0 - 16.0 % [facility] Platelet Count 267 160 - 400 X10*3/uL [facility] Mean Platelet Volume 10.7 9.4 - 12.3 fL [facility] Neutrophils Percent Auto 65.8 45 - 73 % [facility] Imm Gran Pct Auto 0.3 0.0 - 0.4 % [facility] Lymphocytes Percent Auto 16.2(L) 20 - 40 % [facility] Monocytes Percent Auto 9.3 2 - 11 % [facility] Eosinophils Percent Auto 7.7(H) 0 - 4 % [facility] Basophils Percent Auto 0.7 0 - 2 % [facility] NRBC Pct Auto 0.0 0.0 - 0.2 /100WBC [facility] Neutrophils Absolute Auto 6.3 2.0 - 8.3 x10*3/uL [facility] Imm Gran Abs Auto 0.03 0.00 - 0.03 X10*3/uL [facility] Lymphocytes Absolute Auto 1.5 1.2 - 4.9 X10*3/uL [facility] Monocytes Absolute Auto 0.9 0.1 - 1.2 X10*3/uL [facility] Eosinophils Absolute Auto 0.7(H) 0.0 - 0.4 X10*3/uL [facility] Basophils Absolute Auto 0.1 0.0 - 0.2 X10*3/uL [facility] NRBC Abs Auto 0.000 0.0 - 0.012 X10*3/uL [facility] 08/06/2024 6:32 AM EDT 08/06/2024 6:35 AM EDT us Generic External Data Provider LAB BLOOD ORDERAB LES Final Result [facility] [address] [place] [address] [phone] * (ABNORMAL) Comprehensive Metabolic Panel (08/06/2024 6:32 AM EDT) Sodium 138 135 - 145 mmol/L [facility] Potassium 4.3 3.3 - 5.1 mmol/L [facility] Chloride 108 96 - 108 mmol/L [facility] Carbon Dioxide 24 22 - 29 mmol/L [facility] Anion Gap 10(L) 12 - 20 [facility] Urea Nitrogen (BUN) 14 9 - 16 mg/dL [facility] Creatinine, Serum 0.67 0.5 - 1.4 mg/dL [facility] Creatinine Clr Calc Pharmacy 77.7 [facility] Comment:Provided height and weight: 160.02 cm,91 kg.eGFR (calculated from the MDRD study equation) and eCrCl(calculated from the Cockcroft-Gault equation) are based ondifferent parameters and may not yield comparable results.If eCrCl result is absurd, please check patient'sheight/weight. Estimated Glomerular Filt Rate >60 [facility] Comment:Chronic Kidney Disea se: Estimated GFR < 60 mL/min/1.25u7Roexjs Kidney Disease: Estimated GFR < 15 mL/min/1.73m2 Glucose 140(H) 60 - 115 mg/dL [facility] Calcium 9.5 8.4 - 10.2 mg/dL [facility] Bilirubin, Total 1.4(H) 0.0 - 1.0 mg/dL [facility] Aspartate Amino Transferase 23 5 - 31 U/L [facility] Alanine Aminotransferase 16 0 - 31 U/L [facility] Total Protein 7.0 6.5 - 8.0 g/dL [facility] Albumin Level 3.9 3.5 - 5.0 g/dL [facility] Alkaline Phosphatase 83 39 - 117 U/L [facility] 08/06/2024 6:32 AM EDT 08/06/2024 6:35 AM EDT us Generic External Data Provider LAB BLOOD ORDERAB LES Final Result [facility] [address] [facility] [place] [place] [address] [phone] * MR Cervical Spine w/o Contrast (07/09/2024 7:40 AM EST) Anatomical Region Laterality Modality Spine, C-spine Magnetic Resonan ce 07/09/2024 7:40 AM EST Narrative 07/09/2024 8:45 AM EST ? [facility] ?[address] ?[place] [address] ? Magnetic Resonance Report ? Signed ? Patient: Margarita Flores I ?MR#: ?? [id number] ? : 1950 ?Acct:[id number] ? Age/Sex: 74 / F ?ADM Date: 07/09/24 ? Loc: HO.MRI ? Attending Dr: France BUSTAMANTE ? Ordering Physician: France Verduzco ?? Date of Service: 07/09/24 ?? Procedure(s): MR cervical spine wo con ?? Accession Number(s): [id number] ? cc: France Verduzco; Mary Flores ? [...] in OV> ? 07/09/24 0842 ? DD/ 9 ? TD/TT: 07/09/24 0805 ? Six Sigma Black Belt Engineer: ? Procedure Note Jordon Ku - 07/09/[address] [address] Magnetic Resonance Report Signed Patient: Margarita Flores [facility]#: [id number] : 9Acct:[id number] Age/Sex: 74 / FADM Date: 07/09/24 Loc: HO.MRI Attending Dr: France BUSTAMANTE Ordering Physician: France Verduzco Date of Service: 07/09/24 Procedure(s): MR cervical spine wo con Accession Number(s): [id number] cc: France Verduzco; Mary Flores EXAMINATION: MR [...] 07/09/24 0842 DD/ 0740 TD/TT: 07/09/24 0805 Six Sigma Black Belt Engineer: [facility] External Provider IMG MRI PROCEDURES Final Result * Sed Rate by Modified Leticiaren (07/05/2024 10:48 AM EST) Erythrocyte Sedimentation Rate 8 0 - 20 MM/HR [facility] Comment:Patients with polycy themia and many hemoglobin abnormalitiesmay have depressed sed rates whereas patients with anemiamay have elevated sed rates. 07/05/2024 10:4 8 AM EST 07/05/2024 10:48 AM EST Generic External Data Provider LAB BLOOD ORDERAB LES Final Result Performing Organization Address [facility] Co de Phone Number [facility] [address] [place] [phone] * (ABNORMAL) Immunoglobulins, Quantitative, IgA, IgG, IgM (07/05/2024 10:48 AM EST) IMMUNOGLOBULIN G 1176 600 - 1540 mg/dL [facility] IMMUNOGLOBULIN A 392(A) 70 - 320 mg/dL [facility] Immunoglobulin M 80 50 - 300 mg/dL [facility] Comment:THIS TEST WAS PERFOR MED AT:[employer] [address] [phone] SWENSON MD 07/05/2024 10:4 8 AM EST 07/05/2024 10:48 AM EST Generic External Data Provider LAB BLOOD ORDERAB LES Final Result Performing Organization Address [facility] Co de Phone Number [facility] [address] [place] [phone] * Immunoglobulin E (07/05/2024 10:48 AM EST) Immunoglobulin E 15 <QU=506 kU/L [facility] Comment:THIS TEST WAS PERFOR MED AT:[employer] [address] [phone] SWENSON MD 07/05/2024 10:4 8 AM EST 07/05/2024 10:48 AM EST Generic External Data Provider LAB BLOOD ORDERAB LES Final Result Performing Organization Address City/[facility]/ZIP Co de Phone Number [facility] [address] [place] [phone] * (ABNORMAL) Basic Metabolic Panel (07/05/2024 10:48 AM EST) Sodium 140 135 - 145 mmol/L [facility] Potassium 4.1 3.3 - 5.1 mmol/L [facility] Chloride 107 96 - 108 mmol/L [facility] Carbon Dioxide 27 22 - 29 mmol/L [facility] Anion Gap 10(L) 12 - 20 [facility] Urea Nitrogen (BUN) 13 9 - 16 mg/dL [facility] Creatinine, Serum 0.64 0.5 - 1.4 mg/dL [facility] Estimated Glomerular Filt Rate >60 [facility] Comment:Chronic Kidney Disea se: Estimated GFR < 60 mL/min/1.62g0Gnymao Kidney Disease: Estimated GFR < 15 mL/min/1.73m2 Glucose 91 60 - 115 mg/dL [facility] Calcium 9.6 8.4 - 10.2 mg/dL [facility] 07/05/2024 10:4 8 AM EST 07/05/2024 10:48 AM EST us Generic External Data Provider LAB BLOOD ORDERAB LES Final Result Performing Organization Address [facility]/ZIP Co de Phone Number [facility] [address] [place] [phone] * POCT HGB A1C (11/10/2023 2:27 PM EDT) Hemoglobin A1C 5.2 4.0 - 6.0 % QC Media Lot # [id number] Lot# Expiration Date [id number] Blood 11/10/2023 2:27 PM EDT Mary Flores MD POINT OF CARE TEST ENTER/EDIT ORDERABLES Final Result * Lipid Panel, Standard (07/23/2023 3:35 PM EDT) Triglycerides 142 <150 mg/dL [facility] Comment:Desirable Triglyceri de: less than 150 mg/dLBorderline High Triglyceride 150-199 mg/dLHigh Triglyceride: 200-499 mg/dLVery High Triglyceride: greater than or equal to 5OO mg/dL Cholesterol 152 <200 mg/dL [facility] Comment:Desirable Cholestero l: less than 200 mg/dLBorderline High Cholesterol: 200-239 mg/dLHigh Cholesterol: greater than 239 mg/dL LDL Cholesterol Calculated 77 <100 mg/dL [facility] Comment:Desirable LDL: less than 100 mg/dLNear Optimal/Above Optimal LDL: 110- 129 mg/dLBorderline High LDL: 130-159 mg/dLHigh LDL: 160-189 mg/dLVery High LDL: greater than or equal to 190 mg/dL HDL Cholesterol 47 >40 mg/dL [facility] Comment:Desirable HDL: great er than 40 mg/dL Note: This HDL assay may give artificially low results in patients with liver disease. Blood Venous blood specimen / Unknown 07/23/2023 3:35 PM EDT 07/23/2023 4:17 PM EDT Mary Flores MD LAB BLOOD ORDERABLES Final Res ult [facility] [address] [place] [address] [phone] * HEPATITIS C AB W/REFL TO HCV RNA, QN, PCR (09/19/2021 9:58 AM EDT) HEPATITIS C ANTIBODY NON-REACT SHANKAR NON-REACT SHANKAR [facility] INDEX 0.01 <1.00 [facility] Comment: ?? HCV antibody was non-reactive. There is no laboratory ?? evidence of HCV infection. ?? In most cases, no further action is required. However, if recent HCV exposure is suspected, a test for HCV RNA (test code 09834) is suggested. ?? For additional information please refer to http://[employer]/faq/IAI18d0 (This link is being provided for informational/ educational purposes only.) ?? 09/19/2021 9:58 AM EDT Frances Malcolm HOSPICE ADMITTING CLERK HISTORICAL/NON ORDERABLE LABS Final Result Performing Organization Address [facility] Phone Number [facility] [address] [place] [address], * ALBUMIN, RANDOM URINE W/CREATININE (09/13/2021 2:19 [...] LAB SYSTEM 09/13/2021 2:19 PM EDT Frances Valneva HOSPICE ADMITTING CLERK LAB URINE ORDERABLES Final Res ult Performing Organization Address [facility] de Phone Number [facility] [address] [place] [address], * Hm Colonoscopy (01/19/2021 8:45 AM EDT) us Historical Provider HEALTH MAINTENANCE Final Result from Last 3 Months or Most Recently Relevant to Health Maintenance Insurance [facility] STAND ADULT Care Teams Ornamental Iron Worker Relationship Specialty Start Date End Date Mary Flores MD [address] [place] [address] PCP - General Family Medicine 01/05/22
--- OUTSIDE RECORDS SUMMARY | 2024-08-31 11:57 | XMS_ITS | Encounter Summary ---
Author Organization [employer] Address [address] [place] [address] Care Team Providers Care Lens Grinder Apprentice Name Role Phone Mary Flores MD Primary Care Provider [phone] Reason for Visit * Reason Onset Date Comments Durable Medical Equipment 07/08/2024 Encounter Details Date Type Department Care Team ([facility] st Contact Info) Description 07/08/2024 Telephone [facility] [address] [place] [address] Mary Flores MD [address] [place] [address] Durable Medical Equipment Social History Tobacco Use [...] documented as of this encounter Care Teams Lens Grinder Apprentice Relationship Specialty Start Date End Date Mary Flores MD [address] [place] [address] PCP - General Family Medicine 01/05/22 documented as of this encounter
--- OUTSIDE RECORDS SUMMARY | 2024-08-31 11:57 | XMS_ITS | Encounter Summary ---
Author Organization [employer] Address [address] [facility] [place] [address] Care Team Providers Care Air Turning Machine Feeder Name Role Phone Mary Flores MD Primary Care Provider [phone] Reason for Visit * Reason Comments Med Change Request Encounter Details Date Type Department Care Team ([facility] st Contact Info) Description 12/05/2023 Refill [facility] [address] [place], [place] [phone] Tyrel Trivedi MD [address] [place] [address] Social History Tobacco Use Types Packs/Day Years [...] documented as of this encounter Care Teams Air Turning Machine Feeder Relationship Specialty Start Date End Date Mary Flores MD [address] [place] [address] PCP - General Family Medicine 01/05/22 documented as of this encounter
--- OUTSIDE RECORDS SUMMARY | 2024-08-31 11:57 | XMS_ITS | Encounter Summary ---
Author Organization [employer] Address [address] [facility] [address] [place] [address] Care Team Providers Care Type Rolling Machine Operator Name Role Phone Mary Flores MD Primary Care Provider [phone] Reason for Visit * Reason Onset Date Comments Appointment Request 06/13/2023 Encounter Details Date Type Department Care Team ([facility] st Contact Info) Description 06/13/2023 Telephone [facility] [address] [place] [address] Mary Flores MD [address] [place] [address] Appointment Request Social History Tobacco Use Types [...] told her that when she returned from [place] to call for an appointment in person. documented in this encounter Plan of Treatment Not on file documented as of this encounter Visit Diagnoses Not on filedocumented in this encounter Care Teams Type Rolling Machine Operator Relationship Specialty Start Date End Date Mary Flores MD [address] [place] [address] PCP - General Family Medicine 01/05/22 documented as of this encounter
--- OUTSIDE RECORDS SUMMARY | 2024-08-31 11:57 | XMS_ITS | Encounter Summary ---
Author Organization [employer] Address [address] [facility] [address] [place] [address] Care Team Providers Care Sand Digger Name Role Phone Mary Flores MD Primary Care Provider [phone] Encounter Details Date Type Department Care Team (Late st Contact Info) Description 12/05/2023 Orders Only [facility] [address] [place] [address] Tyrel Trivedi MD [address] [place] [address] Social History Tobacco Use Types Packs/Day Years [...] documented as of this encounter Care Teams Sand Digger Relationship Specialty Start Date End Date Mary Flores MD [address] [place] [address] PCP - General Family Medicine 01/05/22 documented as of this encounter
--- OUTSIDE RECORDS SUMMARY | 2024-08-31 11:57 | XMS_ITS | Encounter Summary ---
Author Organization [employer] Address [address] [facility] [address] [place] [address] Care Team Providers Care Emt Driver Name Role Phone Mary Flores MD Primary Care Provider [phone] Encounter Details Date Type Department Care Team (Late st Contact Info) Description 12/17/2023 Orders Only [facility] [address] [place] [address] Mary Flores MD [address] [place] [address] Social History Tobacco Use Types Packs/Day Years [...] documented as of this encounter Care Teams Emt Driver Relationship Specialty Start Date End Date aMry Flores MD [address] [place] [address] PCP - General Family Medicine 01/05/22 documented as of this encounter
--- OUTSIDE RECORDS SUMMARY | 2024-08-31 11:57 | XMS_ITS | Encounter Summary ---
Author Organization [employer] Address [address] [facility] [address] [place] [address] Care Team Providers Care Formula Clerk Name Role Phone Mary Flores MD Primary Care Provider [phone] Reason for Visit * Reason Onset Date Comments filling fell out 01/19/2024 Encounter Details Date Type Department Care Team ([facility] st Contact Info) Description 01/19/2024 Telephone [facility] [address] [place] [address] Sari Mckinnon, DDS [address] [place] [address] filling fell out Social History Tobacco Use [...] documented as of this encounter Care Teams Formula Clerk Relationship Specialty Start Date End Date Mary Flores MD [address] [place] [phone] PCP - General Family Medicine 01/05/22 documented as of this encounter
--- OUTSIDE RECORDS SUMMARY | 2024-08-31 11:57 | XMS_ITS ---
Author Name Sonya Gallagher NP Address [address] [place] [address] Phone [phone] [facility] Care Team Providers Care Men'S Leather Dress Belt Maker Name Role Phone Sonya Gallagher Unavailable [phone] NATALY CRANDALL Unavailable [phone] Bret Bonner Unavailable [phone] Deanna Casillas Unavailable [phone] CALEB RAMON Unavailable [phone] EDWARD REBOLLEDO Unavailable [phone] Reason for Referral Not Available Allergies, adverse [...] AT BEDTIME 2021-10-09 No Data Available Creon [id number] UNIT Cap delayed rel TAKE 1 CAPSULE BY MOUTH FOUR TIMES DAILY, WITH MEALS OR SNACKS AND AT BEDTIME 2021-11-08 No Data Available Cyclobenzaprine 10 mg Tab TAKE 1 TABLET BY MOUTH AT BEDTIME 2021-10-09 No Data Available Daliresp 500 MCG Tab TAKE 1 TABLET BY [facility] EVERY DAY 2021-05-30 No Data Available dilTIAZem [...] Available Vitamin D (Ergocalciferol) 1 .25 mg (10533 UT) Cap TAKE 1 CAPSULE BY MOUTH [...] (do not use for phone, instead use 05910-73) [facility] ([place] 04/08/2022 Hypertensive heart disease w ith heart failureHeart failure, unspecifiedUnspecified asthma, uncomplicatedChronic obstructive pulmonary disease, unspecifiedRheumatoid arthritis, unspecifiedHyperlipidemia, unspecifiedDepression, unspecified New patient,40-59min; chronic exacerbation, 2 stable chronic or 1 acute illness add add modifier 95 for video (do not use for phone, instead use 05581-76) [facility] ([place]) 04/08/2022 New patient,40-59min; chronic exacerbation, 2 stable chronic or 1 acute illness add add modifier 95 for video (do not use for phone, instead use 13556-33) [facility] ([place] 04/08/2022 New patient,40-59min; chronic exacerbation, 2 stable chronic or 1 acute illness add add modifier 95 for video (do not use for phone, instead use 12256-56) [facility] ([place] 04/08/2022 New patient,40-59min; chronic exacerbation, 2 stable chronic or 1 acute illness add add modifier 95 for video (do not use for phone, instead use 07741-14) [facility] ([place] 04/08/2022 New patient,40-59min; chronic exacerbation, 2 stable chronic or 1 acute illness add add modifier 95 for video (do not use for phone, instead use 57080-02) [facility] ([place] 04/08/2022 New patient,40-59min; chronic exacerbation, 2 stable chronic or 1 acute illness add add modifier 95 for video (do not use for phone, instead use 02426-83) [facility] [place] 04/08/2022 New patient,40-59min; chronic exacerbation, 2 stable chronic or 1 acute illness add add modifier 95 for video (do not use for phone, instead use 22946-92) [facility] [place] 04/08/2022 New patient,40-59min; chronic exacerbation, 2 stable chronic or 1 acute illness add add modifier 95 for video (do not use for phone, instead use 07874-83) [facility] ([place]) 04/08/2022 Estab. patient 20-29min; 1 stable chronic or 2 minor; add add modifier 95 for video, modifier 93 for phone [facility] ([place]) 05/09/2022 Hypertensive heart disease w ith heart [...] tive Time Current Smoking Status Never smoker 2024-08-11 2 Sex Female History of Procedures Procedures Service Procedure code Service date Servicing provider Phone# New patient,40-59min; chronic exacerbation, 2 stable chronic or 1 acute illness add add modifier 95 for video (do not use for phone, instead use 16254-24) [address] 2022-04-09 No Data Available No Data Availa [...] 95 for video, modifier 93 for phone [id number] 2022-05-09 No Data Available No Data Availa [...] using a udio and video over the [employer] tablet. Time spent in visit: 20 minutesToday, patient has chief complaint of: monitoring of chronic conditions 2022-05-09 Most recent hospital stay(s) or ER visit(s) and precipitating factors: denies 2022-05-09 Open HEDIS Measure falguni carbajal: done
--- OUTSIDE RECORDS SUMMARY | 2024-08-31 11:57 | XMS_ITS | Encounter Summary ---
Author Organization [employer] Address [address] [facility] [address] [place] [address] Care Team Providers Care Well Service Pump Equipment Operator Name Role Phone Mary Flores MD Primary Care Provider [phone] Reason for Visit * Reason Comments Med Refill Encounter Details Date Type Department Care Team ([facility] st Contact Info) Description 04/19/2024 Refill [facility] [address] [place], [place] [phone] Olga Dillard ANP [address] [place] [address] Nasal congestion Social History Tobacco Use Types [...] documented as of this encounter Care Teams Well Service Pump Equipment Operator Relationship Specialty Start Date End Date Mary Flores MD [address] [place] [address] PCP - General Family Medicine 01/05/22 documented as of this encounter
== END 2024-08-31 11:17 | disposition home or self-care (01) ==
LOC: HO.HPS 10:19
PROVIDERS: PCP General Practice; Visit Provider Hospitalist
DX: J90 Pleural effusion, not elsewhere classified (principal); J44.9 Chronic obstructive pulmonary disease, unspecified; J45.50 Severe persistent asthma, uncomplicated; G47.33 Obstructive sleep apnea (adult) (pediatric); R91.1 Solitary pulmonary nodule; K21.9 Gastro-esophageal reflux disease without esophagitis; J98.11 Atelectasis; R07.1 Chest pain on breathing
CPT/HCPCS: 99214; G2211

== ENCOUNTER → 2024-08-31 10:19 | Outpatient (BNVA) | payer OTHER, SELFPAY | PROVIDERS: PCP General Practice; Visit Provider Hospitalist | DX: J45.50 Severe persistent asthma, uncomplicated (principal); J44.9 Chronic obstructive pulmonary disease, unspecified; J90 Pleural effusion, not elsewhere classified; G47.33 Obstructive sleep apnea (adult) (pediatric); R91.1 Solitary pulmonary nodule; K21.9 Gastro-esophageal reflux disease without esophagitis; J98.11 Atelectasis; R07.1 Chest pain on breathing | CPT/HCPCS: 99212 ==

== ENCOUNTER 2024-09-24 13:40 | Outpatient (REF) | payer OTHER, SELFPAY ==
--- NOTE | ~2024-09-24 | XR_ITS ---
EXAMINATION: XR CHEST CLINICAL INFORMATION: history of L sided VTAS with ongoign pain COMPARISON: 08/20/2024. TECHNIQUE: 2 views of the chest were obtained. FINDINGS: The cardiac, hilar, and mediastinal contours are normal. Aortic mural calcifications. There is a dgego-lp-zgjbdsam sized left layering pleural effusion, unchanged from the prior exam. This is likely persistent. Underlying parenchymal consolidation is likely compressive atelectasis. The right lung is clear. There is no right effusion. There is no pneumothorax. There is no focal osseous or soft tissue abnormality. There are spinal degenerative changes. There are cholecystectomy clips. XR/XR chest 2V IMPRESSION: 1. Small to moderate-sized persistent left pleural effusion. No change from 08/20/2024. Electronically signed by: Cyril Sarkar MD 09/24/2024 02:13 PM EDT
--- OUTSIDE RECORDS SUMMARY | 2024-09-24 13:43 | XMS_ITS | Data Portability ---
Author Organization [facility] [facility] Address [address] [place] [address] Care Team Providers Care Tree Loader Meat Name Role Phone HIM [facility] Referring Provider [facility] OTHER [phone] Assessment Encounter Date Assessment Date Assessment LastModified by Organization Details LastModified Time 08/21/2023 08/21/2023 I provided real -time medical direction via phone for this encounter, and was available for additional phone based assistance as needed. I have reviewed and agree with the Assessment and Plan as documented by the Hand Knitter. We discussed the diagnostic uncertainty of home visits and the risk associated with this. In this case the patient and I felt this to be an acceptable and reasonable amount of risk given the benefit of avoiding an ED visit. Via pull tab dealer, the patient given the opportunity to ask questions. Advised to follow-up with PCP tomorrow if develops CP/severe SOB/turning blue/uncontrolle d n/v/d or black/bloody emesis or stool/ AMS/ syncope/ hi fever unresponsive to APAP to call 911- verbalized understanding of instruction [email or web address] Not available 08/21/2023 11:52:46 09/17/2024 09/17/2024 Ms. Sera Ordonez is a 74 yo F with Headache, High Blood Pressure, Postoperative Problems who is calling today with L chest wall pain after chest tube removal. Per patient and medic, patient had some ? f luid and chest tube placed? recently. But had it removed recently. Having pain at the tube site. Clear and equal bilateral lung sounds, slightly more diminished in the L side. Saturating well on RA. SBP improved, now 140s with medic. Reduced. Calling today mostly with pain at the chest tube site. No pain at rest, mostly just pleuritic and a/w coughing. Able to ambulate well. No chest pain or SOB. No lower leg swelling. Feels like she? s doing ? b desmond? after the surgery. But still somewhat difficult to sleep 2/2 pain in the left lower ribs. No renal dysfunction. No recent meds taken today aside from Tylenol. Wants the pain to go away to help her sleep. Not on AC. Sx sound like normal post-op/procedur e pain 2/2 chest tube placement. Reasonable to start with toradol IM and then counseling services director about safe tylenol/motrin use. Advised that if sx persist, she probably needs a CXR outpatient with her PCP team. Just recently saw her surgeon within the last week and was reassured at the time. Exam today not c/f recurrence of PNX or effusion, mostly clear lung sounds. I provided real -time medical direction via phone for this encounter, and was available for additional phone based assistance as needed. I have reviewed and agree with the Assessment and Plan as documented by the Hand Knitter. We discussed the diagnostic uncertainty of home visits and the risk associated with this. In this case the patient and I felt this to be an acceptable and reasonable amount of risk given the benefit of avoiding an ED visit. The patient given the opportunity to ask questions. Follow up with primary care was recommended, as needed. Advised if develops CP/severe SOB/turning blue/uncontrolle d n/v/d or black/bloody emesis or stool/ AMS/ syncope/ high fever unresponsive to APAP to call 911- verbalized understanding of instruction. [email or web address] Not available 09/17/2024 13:54:42 Plan of Treatment Reminders Order Date Submit Date Provider Last Modified By Organization Details Last Modified Time Details Appointments None recorded. Lab BMP, serum or plasma 2023 024 [email or web address] 0 [facility], [address] [place] [address], [id number] 4 11:57:22 rapid SARS CoV 2 Ag, QL IA, respiratory specimen 2023 024 [email or web address] 0 [facility], [address] [place] [address], [id number] 4 11:57:26 rapid flu (A+B) 2023 024 [email or web address] 0 [facility], [address] [place] [address], [id number] 4 11:57:27 Referral None recorded. Procedures None recorded. Surgeries None recorded. Imaging None recorded. Medication Orders ketorolac 30 mg/mL injection solution 2024 025 veronica i7 [facility], [address] [place] [address], [id number], 5 12:22:51 ibuprofen 400 mg tablet 2024 025 [id number], [address] [place] [address], [place], [address], 5 12:22:52 ondansetron 4 mg disintegrat ing tablet 2023 024 [facility], [address] [place] [address], [id number], 4 14:03:53 ipratropium 0.5 mg-albutero l 3 mg (2.5 mg base)/3 mL nebulizatio n soln 2023 024 [email or web address] 0 Not available 4 11:57:22 prednisone 20 mg tablet 2023 024 [email or web address] 0 Not available 4 11:57:22 prednisone 20 mg tablet 2023 024 [facility], [address] [place] [address], [id number], 4 12:59:13 Tylenol Arthritis Pain 650 mg tablet,exte nded release 2023 024 [facility], [address] [place] [address], [id number], 4 14:44:00 benzonatate 200 mg capsule 2023 024 [facility], [address] [place] [address], [id number], 11:39:43 Patient TargetsNo targets recorded. Patient InstructionsNo instructions recorded. Reason for Referral None Reported. Results Created Date Observation Date Name Description Value Unit Range Abnormal Flag Note LastModifiedBy Organization Detail LastModifiedTime 08/21/19 24 08/21/2023 BMP, serum or plasm a BUN 18 Not Available [facility] - [facility] [address], [address] [place] [address] 08/21/2023 11:23:37 08/21/19 24 08/21/2023 BMP, serum or plasm a Ca Ionize d calciu m 1.21 Not Available Main - [address], [address] [place] [address] 08/21/2023 11:23:37 08/21/19 24 08/21/2023 BMP, serum or plasm a CI- 107 Not Available [facility] - [facility] [address], [address] [place] [address] 08/21/2023 11:23:37 08/21/19 24 08/21/2023 BMP, serum or plasm a CRE 0.54 Not Available [facility] - [facility] [address], [address] [place] [address] 08/21/2023 11:23:37 08/21/19 24 08/21/2023 BMP, serum or plasm a GLU 89 Not Available [facility] - [facility] [address], [address] [place] [address] 08/21/2023 11:23:37 08/21/19 24 08/21/2023 BMP, serum or plasm a K+ 3.9 Not Available [facility] - [facility] [address], [address] [place] [address] 08/21/2023 11:23:37 08/21/19 24 08/21/2023 BMP, serum or plasm a Na+ 143 Not Available [facility] - [facility] [address], [address] [place] [address] 08/21/2023 11:23:37 08/21/19 24 08/21/2023 BMP, serum or plasm a tCO2 26.4 Not Available [facility] - [facility] [address], [address] [place] [address] 08/21/2023 11:23:37 08/21/19 24 08/21/2023 rapid SARS CoV 2 Ag, QL IA, respi rator y speci men rapid SARS CoV 2 Ag, QL IA, respiratory specimen negati ve Not Available Main - [facility] ed [address] [place] [address], [id number] 08/21/2023 11:23:43 08/21/19 24 08/21/2023 rapid flu (A+B) Flu negati ve Not Available [facility] ed [address] [place] [address], [id number] 08/21/2023 11:23:44 Result Notes None recorded. Medical [...] Organization Details LastModified Time pulse oximet airial [id number] USE DIRECTED EVERY DAY IN THE MORNING [...] Not Available Not Available No t Available ibuprofen 400 mg tablet Take 1 tablet every 4-6 hours by oral route for 5 days. 2024 active Not Available Not Available Not Avai lable docusate sodium 100 mg capsule active Not [...] Address Organization Details Last Updated DateTime 4 74232.2 16 g 97.8 [degF] 16 /min 76 /min 95 % 95 % 99 % 99 % 70 /min 70 /min 158 mm[Hg] 112 mm[Hg] 150 mm[Hg] 82 mm[Hg] 150 mm[Hg] 70 mm[Hg] Not Available [facility] - production 4 11:43:04 Date Recorded Body weight Body temperature Respiratory rate Body height Heart rate Oxygen saturation Oxygen saturation in Arterial blood by Pulse oximetry Systolic blood pressure Diastolic blood pressure Provider Name and Address Organization Details Last Updated DateTime 5 17103.6 24 g 98.2 [degF] 18 /min 162.56 cm 80 /min 96 % 96 % 149 mm[Hg] 79 mm[Hg] Not Available [facility] - production 5 12:16:46 Social History None recorded. Functional Status None recorded. Mental Status None recorded. Family History Nothing Reported. Medical History No medical history recorded. Gynecological HistoryNo gynecological history recorded. Obstetrics History GPAL:G 0 P 0 0 0 0 Past Encounters Encounter ID Performer Location Encounter Start Date Encounter Closed Date Diagnosis/Indication Diagnosis SNOMED-CT Code Diagnosis ICD10 Code Diagnosis Note [id number] Genevieve Stover MD [facility] [address] [place] [address] 08/21/2023 10:58:16 08/21/2023 14:52:00 Upper respiratory infection 41753999 J06.9 With COPD residual from influenza. Patient [...] tomorrow/R ESTDiscuss ed with patient risk/ benefits Nelson. She would like a prescripti on for [...] [place] [id number] KHADIJAH ROWAN MD [facility] [address] [place] [phone] 09/17/2024 12:16:43 09/17/2024 19:26:55 Chest wall pain 273579878 R07.89 Health Concerns Section Related Observation LastModified by Organization Detai ls LastModified Time None Recorded Concern Status LastModified by Organization Details LastModified Time None Recorded Advance Directives Directive None Recorded Payers Insurance Date Sequence Insurance Name Policy Number Policy Briceño Covered Member ID Briceño Member ID Guarantor Name 09/17/2024 1 [facility] - DOS ON OR AFTER 2022 - DUAL ELIGIBLE - [facility] OPTIONS AND ONE CARE (MEDICARE REPLACEMENT/ADV ANTAGE - HMO) Margarita Ordonez [id number] Margarita Ordonez Notes Date Note Type Note Provider Name and Address Organization Details Recorded Time 08/21/2023 text/html HPI: Call to Margarita Zamora reports continues to have cough, SOB and wheezing. [place] [facility] [place] and dx with Flu A. Per pt completed prednisone 3 days ago. Per pt having to use nebulizer TID. Pt also using inhalers as well. Pt having wheezing as well. SOB on exertion. Pt states cough is dry unable to bring anything up. NO fever. Pt advised of disposition, declines in office appt due to weather. Agrees to [facility] for eval. ...................... ...................... ...................... ...................... ...................... ...................... ......... [facility] Nurse Triage Notes (Red Ricks): Comments: HPI reviewed SEGMD: As above- hx HTN/COPD/ HLD/ Chronic pain- limited old records available in [place]. LD Tylenol was 3 days ago for headache which resolved. She does take naproxen. She was vomiting yesterday, which resolved she states she has no appetite but she is not currently nauseated. She has had nothing to eat or drink today, thus I will check labs. Yesterday she had some water juice and some chicken soup in the evening............... ...................... ...................... ...................... ...................... ...................... ................ Hand Knitter Note From Kun Cruz: Pt co cough without production and sob with exertion and using nebs and inhalers more frequently. Pt was diagnosed flu A 4/3. Pt was on prednisone but RX ended 3 days ago. Pt denies NC CP fever diarrhea headache nausea. Pt st did vomit yesterday. Baseline vitals assessed, POc bloodwork unremarkable. Covid flu swab negative. Lungs rhonchi with slight wheezing. Afebrile. [facility] contacted and duo [...] Pt education on signs indicating the ER. Hand Knitter Allergies: Morphine ...................... ...................... ...................... ...................... ...................... ...................... ......... Disposition: Fulfilled Genevieve Stover MD [address] [place] [address],[address], [place], [phone], [employer] 08/21/2023 12:03:44 09/17/2024 text/html HPI: Call returned to Margarita Zamora to triage below. Confirms having an elevated BP of 170/111. Pt had taken BP meds 20 mins prior to [facility] arriving for visit. Per pt recent surgery on 08/20/24. Per pt had follow up with surgeon on 09/10/24. Per pt believes elevated BP is related to poor pain management. Only advised to take Tylenol/Motrin for pain. Pt is having KHOURY. Pt denies any CP or SOB. Pt having difficulty with sleep. 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 Pt offered Walk in center. Pt declines but agrees to [facility] for vitals check and assessment. Pt advised to have all meds on hand. Confirmed demographics and allergies. ...................... ...................... ...................... ...................... ...................... ...................... ......... [facility] Nurse Triage Notes (Ximena Bentley): Reason For Request: HTN Chief Complaints: Headache, High Blood Pressure, Postoperative Problems PMH: COPD/Asthma, Hypertension, Chronic Obstructive Pulmonary Disease (COPD), Gastroesophageal Reflux Disease (GERD), Migraine, Obesity PMH Reviewed at 09/17/2024 Allergies Reviewed at 09/17/2024: Comments: HPI reviewed ...................... ...................... ...................... ...................... ...................... ...................... ......... Baseline Information: Baseline Creatinine: 0.86mg/dL ...................... ...................... ...................... ...................... ...................... ...................... ......... Hand Knitter Note From Idris Ayoub: 74 yo female co pain in Left lower rib area at site of Chest tube placed on August 20. the patient was seen on 09/10 with surgeon saying it was going to hurt for a while per daughter. Pt notes that the Tylenol she Is taking is not helping much. Breath sounds clear and equal bilaterally with tenderness to rib area . Pt denies cp at rest but some pain when she coughs. No abdominal pain. No swelling in ankles noted. Pt was standing at sink getting her hair washed upon arrival. Denies headache currently. Call to Dr. rowan who reviewed history and advised ibuprofen and 30 mg of Toradol IM. Pt denied kidney issues. Was out of ibuprofen. Dr. Rowan called in script to [facility] in [place]. Pt thanked us. Went over dosing of Tylenol and ibuprofen with pt and daughter via cell phone. No questions. [facility] Medication Orders: ketorolac 30 mg/mL injection solution: Administered Comment: didi Cruz.................. ...................... ...................... ...................... ...................... ...................... ......... [facility] Consulted: Khadijah Rowan ...................... ...................... ...................... ...................... ...................... ...................... ......... Disposition: Fulfilled KHADIJAH ROWAN MD [address] [facility],[address], [place], [address], JAH - CHARANJIT FRANCE 09/17/2024 13:54:55 OBGyn Episode No OBEpisode recorded.
--- OUTSIDE RECORDS SUMMARY | 2024-09-24 13:43 | XMS_ITS | Encounter Summary ---
Author Organization [employer] Address [address] [place] [address] Care Team Providers Care Formstone Fitter Name Role Phone Mary Flores MD Primary Care Provider [phone] Reason for Visit * Reason Onset Date Comments Durable Medical Equipment 07/25/2023 Encounter Details Date Type Department Care Team ([facility] st Contact Info) Description 07/25/2023 Telephone [facility] [address] [place], [place] [phone] Mary Flores MD [address] [place] [address] Durable Medical Equipment Social History Tobacco Use [...] - 07/25/2023 11:42 AM EDT Tc from [facility] with [facility] requesting DME supplies to be sent to [facility] - bed pads - L pull ups - oximeter documented in this encounter Plan of Treatment Upcoming Encounters Date Type Department Care Team (Late st Contact Info) Description 09/24/2024 1:45 PM EDT Nurse Only [facility] [address] [place] [address] documented as of this encounter Visit Diagnoses Not on filedocumented in this encounter Care Teams Formstone Fitter Relationship Specialty Start Date End Date Mary Flores MD [address] [place] [address] PCP - General Family Medicine 01/05/22 [facility] 08/29/24 documented as of this encounter
--- OUTSIDE RECORDS SUMMARY | 2024-09-24 13:43 | XMS_ITS | Encounter Summary ---
Author Organization [employer] Address [address] [place] [address] Care Team Providers Care Industrial Economics Professor Name Role Phone Mary Flores MD Primary Care Provider [phone] Encounter Details Date Type Department Care Team (Late st Contact Info) Description 09/12/2023 Orders Only [facility] [address] [place] [address] ProviderElliott MD Social History Tobacco Use Types [...] Description 09/24/2024 1:45 PM EDT Nurse Only [facility] [address] [place] [address] documented as of this encounter Procedures Procedure Name Priority Date/Time Associated Diagnosis Comments HM COLONOSCOPY Routine 01/19/2021 8:45 AM EDT documented in this encounter Results * Hm Colonoscopy (01/19/2021 8:45 AM EDT) Historical Provider HEALTH MAINTENANCE Final Result documented in this encounter Visit Diagnoses Not on filedocumented in this encounter Care Teams Industrial Economics Professor Relationship Specialty Start Date End Date Mary Flores MD [address] [place] [address] PCP - General Family Medicine 01/05/22 [facility] 08/29/24 documented as of this encounter
--- OUTSIDE RECORDS SUMMARY | 2024-09-24 13:43 | XMS_ITS | Encounter Summary ---
Author Organization [employer] Address [address] [facility] [address] [place] [address] Care Team Providers Care Hot Dipper Name Role Phone Mary Flores MD Primary Care Provider [phone] Reason for Visit * Reason Onset Date Comments Nurse Triage 09/17/2024 Encounter Details Date Type Department Care Team ([facility] st Contact Info) Description 09/17/2024 Telephone [facility] [address] [place], [place] [phone] Mary Flores MD [address] [place] [address] Nurse Triage Social History Tobacco Use Types Packs/Day Years [...] housing situation today? I have toña cruz 09/08/[address] you li ve. Do you have problems with any of the following? None of the above 09/08/2024 Food Insecurity Answer Date Recorded Within the past 12 months, y ou worried that your food would run out before you got money to buy more: Never True 09/08/2024 Within the past 12 months,th e food you bought just didn't last and you didn't have enough money to get more: Never True Transportation Answer Date Recorded In the past 12 months, has l ack of transportation kept you from medical appts, meetings, work or from getting things needed for daily living? No 09/08/2024 Utilities Answer Date Recorded In the past 12 months, has t he electric, gas, oil or water company threatened to shut off services in your home? No 09/08/2024 Depression Answer Date Recorded Patient Health Questionnaire-2 Score 1 11/10/2023 Internet Access Answer Date Recorded Internet Access Q1 No 09/08/2024 Internet Access Q2 I cannot afford it 09/08/2024 Comments Unknown Sex and Gender Information Value Date Recorded Sex Assigned at Female 03/11/2022 10:17 AM EDT Legal Sex Female 10:17 AM EDT Gender Identity Female 03/11/2022 10:17 AM EDT Sexual Orientation Straight 03/11/2022 10 :17 AM EDT documented as of this encounter Miscellaneous Notes * Telephone Encounter - Neena Doshi RN - 09/20/2024 9:41 AM EDT [facility] note reviewed, pt. Seen for L chest wall pain s/p chest tube removal on 09/10/24, headache andhigh BP. Given toradol IM. BP was 149/79. Recommended chest x-ray if pain continued. TC placed to pt. For status check, reached Santino Jona (not on HIPAA), he identified himself as pt.'scaregiver and passed phone to pt. Who gave verbal permission to speak to Santino. Santino reports pt.'s Lchest wall pain improved s/p toradol inj however still bothersome and ibuprofen is not effective. Santino reports pt.'s BP yesterday was 140/85 and pt. Has no headache. Advised Santino chest x-ray can be ordered at upcoming F this week 09/24/24 with PCP if needed and Santino verbalizes understanding, has no other questions or concerns at this time * Telephone Encounter - Lydia Saini RN - 09/17/2024 2:31 PM EDT Following message received by this typewriter operator automatic via email Akash Avila, I am writing on behalf of the [facility] Team. We share a mutual member Sera Ordonez, Margarita Lobo, of 1950 Our team evaluated them today September 17 per your request. We saw member for a headache and high blood pressure Our Virtual [facility] [employer] physician wanted us to reach out with time sensitive feedback for us monsee. Please see below, full notes can be found in the [facility] Now Platform: [facility] Remarks Recommending PCP f/u next week for repeat lab check- in particular H/H and cbc. If patient continues to have dark stools, advise ER. But sx sound more r/t peptobismaul use. Please follow up with the member to determine the next step in the members care plan, regarding theabove concerns. Please do not hesitate to reach out to us with any questions at [email or web address]. Sincerely, Red Will forward to PCP to update. Future Appointments Date Time Provider Department Center 09/24/2024 1:00 PM Mary Flores MD MEDICINE [facility] 09/24/2024 1:45 PM [facility] PHARMACIST MEDICINE [facility] * Telephone Encounter - Lydia Saini RN - 09/17/2024 9:48 AM EDT Call to [facility], no answer, LVM to return call to [facility] triage line PRN. Call returned to Margarita Zamora to triage below. Confirms having an elevated BP of 170/111. Pt hadtaken BP meds 20 mins prior. Per pt recent surgery on 08/20/24. Per pt had follow up with surgeon on09/10/24. Pt is having KHOURY. Pt denies any CP or SOB. Pt having difficulty with sleep. Per pt believes elevated BP is related to poor pain management. Only advised to take Tylenol/Motrin for pain. Pt offered Walk in center. Pt declines but agrees to [facility] for vitals check and assessment. Pt advised tohave all meds on hand. Confirmed demographics and allergies. Protocol Used: Blood Pressure - High (Adult) Protocol-Based Disposition: See in Office or Video Visit Today Sent to team for [facility] status check PRN. Video visit offer not recorded Positive Triage Question: * Systolic BP >= 180 OR Diastolic >= 110 * All higher-acuity triage questions were negative Care Advice Discussed: * Reasons To Call Back - Headache, blurred vision, difficulty talking, or difficulty walking occurs - Chest pain or difficulty breathing occurs - You become worse * Telephone Encounter - Eliana Brenner - 09/17/2024 9:32 AM EDT Symptoms: High Blood Pressure - Caller Reports, Pain - Severe Outcome: Schedule an urgent appointment (within 1 hour) or talk to a nurse or provider soon Reason: Caller denied all higher acuity questions The caller accepted this outcome. [phone] Aman LOPEZ documented in this encounter Plan of Treatment Upcoming Encounters Date Type Department Care Team (Late st Contact Info) Description 09/24/2024 1:45 PM EDT Nurse Only [facility] MEDICINE [address] [place] [address] documented as of this encounter Visit Diagnoses Not on filedocumented in this encounter Additional Health Concerns Assessment Noted Time PHQ-9 Depression Total Score: 7 11/10/19 24 2:30 PM EDT documented as of this encounter Care Teams Hot Dipper Relationship Specialty Start Date End Date Mary Flores MD [address] [place] [address] PCP - General Family Medicine 01/05/22 [facility] 08/29/24 documented as of this encounter
--- OUTSIDE RECORDS SUMMARY | 2024-09-24 13:43 | XMS_ITS | Encounter Summary ---
Author Organization [employer] Address [address] [facility] 7t [place] [address] Care Team Providers Care Top Spotter Name Role Phone Mary Flores MD Primary Care Provider [phone] Reason for Referral * Medications - Closed Specialty Diagnoses / Procedures Referred By Yong galaviz Referred To Contact Diagnoses Trapezius muscle spasm Mary Flores MD [address] [place] [address] Phone: tel: fax: Referral ID Status Reason Start Date Expiration Date Visits Re quested Visits Authorized [id number] Closed 1 1 Encounter Details Date Type Department Care Team (Late st Contact Info) Description 09/14/2024 Orders Only [facility] [address] [place] [address] Mary Flores MD [address] [place], [place] [phone] Trapezius muscle spasm Social History Tobacco Use Types Packs/Day Years [...] Description 09/24/2024 1:45 PM EDT Nurse Only [facility] [address] [place] [address] documented as of this encounter Visit Diagnoses Diagnosis Trapezius muscle spasm documented in this encounter Additional Health Concerns Assessment Noted Time PHQ-9 Depression Total Score: 7 11/10/19 24 2:30 PM EDT documented as of this encounter Care Teams Top Spotter Relationship Specialty Start Date End Date Mary Flores MD [address] [place] [address] PCP - General Family Medicine 01/05/22 [facility] 08/29/24 documented as of this encounter
--- OUTSIDE RECORDS SUMMARY | 2024-09-24 13:43 | XMS_ITS | Encounter Summary ---
Author Organization [employer] Address [address] [facility] [address] 7[address] [place] [address] Care Team Providers Care Service Assistant Name Role Phone Mary Flores MD Primary Care Provider [phone] Encounter Details Date Type Department Care Team (Latest Contact Info) Description 09/24/2024 1:00 PM EDT Office Visit [facility] [address] [place] [address] Mary Flores MD [address] [place] [address] History of video-assisted thoracoscopic surgery (VATS) (Primary Dx) Social History Tobacco Use Types [...] Description 09/24/2024 1:45 PM EDT Nurse Only [facility] [address] [place] [address] Scheduled Orders Name Type Priority Associated Diagnoses Orde r Schedule XR Chest 2 Views Imaging Routine History of video-assisted thoracoscopic surgery (VATS) Expected: 09/24/2024, Expires: 09/24/2025 documented as of this encounter Visit Diagnoses Diagnosis History of video-assisted thoracoscopic surgery (VATS)- Primary documented in this encounter Additional Health Concerns Assessment Noted Time PHQ-9 Depression Total Score: 7 11/10/19 24 2:30 PM EDT documented as of this encounter Care Teams Service Assistant Relationship Specialty Start Date End Date Mary Flores MD [address] [place] [address] PCP - General Family Medicine 01/05/22 [facility] 08/29/24 documented as of this encounter
--- OUTSIDE RECORDS SUMMARY | 2024-09-24 13:43 | XMS_ITS | Encounter Summary ---
Author Organization [employer] Address [address] [facility] [address] 7[address] [place] [address] Care Team Providers Care Air Traffic Instructor Name Role Phone Mary Flores MD Primary Care Provider [phone] Encounter Details Date Type Department Care Team (Latest Contact Info) Description 09/24/2024 Travel Social History Tobacco Use Types Packs/Day [...] Description 09/24/2024 1:45 PM EDT Nurse Only [facility] [address] [place] [address] documented as of this encounter Visit Diagnoses Not on filedocumented in this encounter Additional Health Concerns Assessment Noted Time PHQ-9 Depression Total Score: 7 11/10/19 24 2:30 PM EDT documented as of this encounter Care Teams Air Traffic Instructor Relationship Specialty Start Date End Date Mary Flores MD [address] [place] [address] PCP - General Family Medicine 01/05/22 [facility] 08/29/24 documented as of this encounter
--- OUTSIDE RECORDS SUMMARY | 2024-09-24 13:43 | XMS_ITS | Encounter Summary ---
Author Organization [employer] Address [address] [facility] 7t [place] [address] Care Team Providers Care Machine Clerical Verifier Name Role Phone Mary Flores MD Primary Care Provider [phone] Reason for Visit * Reason Onset Date Comments Hospital Follow-up 09/08/2024 Encounter Details Date Type Department Care Team ([facility] st Contact Info) Description 09/08/2024 Telephone [facility] [address] [place] [address] Mary Flores MD [address] [place] [address] Hospital Follow-up Social History Tobacco Use Types Packs/Day [...] encounter Miscellaneous Notes * Telephone Encounter - Miko Nance - 09/08/2024 8:10 AM EDT Tc from pt requesting a HDF appt. Hospital: [facility] Date of admission: 08/20/24 Discharge date: 08/27/24 Diagnosed: Pulmonary infection documented in this encounter Plan of Treatment Upcoming Encounters Date Type Department Care Team (Late st Contact Info) Description 09/24/2024 1:45 PM EDT Nurse Only [facility] [address] [place] [address] documented as of this encounter Visit Diagnoses Not on filedocumented in this encounter Additional Health Concerns Assessment Noted Time PHQ-9 Depression Total Score: 7 11/10/19 24 2:30 PM EDT documented as of this encounter Care Teams Machine Clerical Verifier Relationship Specialty Start Date End Date Mary Flores MD [address] [place] [address] PCP - General Family Medicine 01/05/22 [facility] 08/29/24 documented as of this encounter
--- OUTSIDE RECORDS SUMMARY | 2024-09-24 13:43 | XMS_ITS | Encounter Summary ---
Author Organization [employer] [facility] Address [address] [place] [address] [address] [place] [address] Care Team Providers Care Registered Private Duty Nurse Name Role Phone Mary Flores MD Primary Care Provider [phone] Reason for Visit * Reason Onset Date Comments Referral 08/01/2022 Encounter Details Date Type Department Care Team (Late st Contact Info) Description 08/01/2022 Telephone [facility] [address] [place], [place] [phone] Mary Flores MD [address] [place], [place] [phone] Referral Social History Tobacco Use Types Packs/Day [...] [facility] Please contact pt at [phone] estonian Speaker documented in this encounter Plan of Treatment Upcoming Encounters Date Type Department Care Team (Late st Contact Info) Description 09/24/2024 1:45 PM EDT Nurse Only [facility] [address] [place] [address] documented as of this encounter Visit Diagnoses Not on filedocumented in this encounter Care Teams Registered Private Duty Nurse Relationship Specialty Start Date End Date Mary Flores MD 230 [facility] [place] [address] PCP - General Family Medicine 01/05/22 [facility] 08/29/24 documented as of this encounter
--- OUTSIDE RECORDS SUMMARY | 2024-09-24 13:43 | XMS_ITS | Encounter Summary ---
Author Organization [employer] [facility] Address [address] [place] [address] 7t [place] [address] Care Team Providers Care Top Carrier Name Role Phone Mary Flores MD Primary Care Provider [phone] Encounter Details Date Type Department Care Team (Late Contact Info) Description 08/01/[address] [facility] [address] [place] [address] [phone] Mary Flores MD [address] [place] [phone] Blurry vision (Primary Dx) Social History Tobacco [...] Description 09/24/2024 1:45 PM EDT Nurse Only [facility] [address] [place] [address] [phone] documented as of this encounter Visit Diagnoses Diagnosis Blurry vision- Primary Other specified visual disturbances documented in this encounter Care Teams Top Carrier Relationship Specialty Start Date End Date Mary Flores MD [address] [place] [phone] PCP - General Family Medicine 01/05/22 [facility] 08/29/24 documented as of this encounter
--- OUTSIDE RECORDS SUMMARY | 2024-09-24 13:43 | XMS_ITS | Encounter Summary ---
Author Organization [employer] Address [address] [facility] 7t [place] [address] Care Team Providers Care Purchasing And Claims Supervisor Name Role Phone Mary Flores MD Primary Care Provider [phone] Reason for Visit * Reason Comments Med Refill Encounter Details Date Type Department Care Team ([facility] Contact Info) Description 08/15/2022 Refill [facility] [address] [place] [phone] Keri Ochoa MD [address] [place] [phone] Social History Tobacco Use Types Packs/Day Years [...] Department Care Team (Late Contact Info) Description 09/24/2024 1:45 PM EDT Nurse Only [facility] [address] [place] [address] documented as of this encounter Visit Diagnoses Not on filedocumented in this encounter Care Teams Purchasing And Claims Supervisor Relationship Specialty Start Date End Date Mary Flores MD [address] [place] [id number] PCP - General Family Medicine 01/05/22 [facility] 08/29/24 documented as of this encounter
--- OUTSIDE RECORDS SUMMARY | 2024-09-24 13:43 | XMS_ITS | Encounter Summary ---
Author Organization [employer] Address [address] [facility] 7t [place] [address] Care Team Providers Care Personal Lines Account Manager Name Role Phone Mary Flores MD Primary Care Provider [phone] Reason for Visit * Reason Onset Date Comments chart prep 09/23/2024 Encounter Details Date Type Department Care Team ([facility] Contact Info) Description 09/23/2024 Telephone [facility] [address] [place], [place] [phone] Mary Flores MD [address] [place] [address] chart prep Social History Tobacco Use Types Packs/Day Years [...] encounter Miscellaneous Notes * Telephone Encounter - Tamiko Buckley [place] - 09/23/2024 2:00 PM EDT Chart Prep Labs: done Images: done Referrals: complete Vaccines due: Covid and RSV Screenings: colonoscopy Overdue care gaps: A1c, Glucose, SBIRT, PHQ-9, LADARIUS-7, and Tobacco documented in this encounter Plan of Treatment Upcoming Encounters Date Type Department Care Team (Late st Contact Info) Description 09/24/2024 1:45 PM EDT Nurse Only [facility] [address] [place] [address] documented as of this encounter Visit Diagnoses Not on filedocumented in this encounter Additional Health Concerns Assessment Noted Time PHQ-9 Depression Total Score: 7 11/10/19 24 2:30 PM EDT documented as of this encounter Care Teams Personal Lines Account Manager Relationship Specialty Start Date End Date Mary Flores MD [address] [place] [address] PCP - General Family Medicine 01/05/22 [facility] 08/29/24 documented as of this encounter
--- OUTSIDE RECORDS SUMMARY | 2024-09-24 13:44 | XMS_ITS | Encounter Summary ---
Author Organization [employer] Address [address] [facility] [address] 7[address] [place] [address] Care Team Providers Care Client Care Coordinator Name Role Phone Mary Flores MD Primary Care Provider Encounter Details Date Type Department Care Team (Late st Contact Info) Description 12/05/2023 Orders Only [facility] [address] [place] [address] Tyrel Trivedi MD [address] [place] [address] Social History Tobacco Use Types Packs/Day Years [...] 1:45 PM EDT Nurse Only [facility] [address] [place] [address] documented as of this encounter Visit Diagnoses Not on filedocumented in this encounter Additional Health Concerns Assessment Noted Time PHQ-9 Depression Total Score: 7 11/10/19 24 2:30 PM EDT documented as of this encounter Care Teams Client Care Coordinator Relationship Specialty Start Date End Date Mary Flores MD [address] [place] [address] PCP - General Family Medicine 01/05/22 [facility] 08/29/24 documented as of this encounter
--- OUTSIDE RECORDS SUMMARY | 2024-09-24 13:44 | XMS_ITS | Clinical Summary ---
Author Organization [employer] Address [address] [place] [address] Care Team Providers Care Rug Frame Mounter Name Role Phone Mary Flores MD Primary Care Provider [phone] Allergies Active Allergy Reactions Criticality Noted Date [...] BY MOUTH EVERY DAY AT BEDTIME Active atorvastatin (Lipitor) 10 MG tabletIndications :Other hyperlipidemia Take 1 tablet (10 mg) by mouth at bedtime. 90 tablet 3 024 Active fluticasone (Flonase) 50 MCG/ACT nasal sprayIndications: [...] BEDTIME Active Blood Glucose Monitoring Suppl (FreeStyle Freeville Lite) w/Device kit Active cetirizine (ZyrTEC) 10 [...] or fungal infection. Active FreeStyle lancets Active omeprazole (PriLOSEC) 20 [...] the skin every 14 (fourteen) days. Active lidocaine (Lidoderm) 5 % patchIndications: Trapezius muscle spasm Apply 1 patch topically Once per day. Remove & discard patch within 12 hours or as directed by . 30 patch 3 Active guaiFENesin-codei ne (Robitussin-AC) 100-10 MG/5ML syrup Take 10 mL by mouth if needed at bedtime for cough for up to 5 days. 237 mL 025 2024 Active lidocaine (Lidoderm) 5 % patchIndications: Trapezius muscle spasm Apply 1 patch topically Once per day. Remove & discard patch within 12 hours or as directed by . 30 patch 3 024 2024 Discontinued(R eorder (will not trigger notification to Pharmacy)) Active Problems Problem Noted Date Diagnosed Date [...] copies of her exams and tests from [place] Hiatal hernia 08/06/2021 Obstructive sleep apnea syndrome [...] Encounters Date Type Department Care Team Description 09/24/2024 1:00 PM EDT Office Visit [address] [address] Mary Flores MD History of video-assisted thoracoscopic surgery (VATS) (Primary Dx) 09/24/2024 Travel 09/23/[address] [address] Mary Flores MD chart prep 09/17/[address] [address] Mary Flores MD Nurse Triage 09/14/2024 Orders Only [address] [address] Mary Flores MD Trapezius muscle spasm 09/14/[address] [address] Monse Rodriguez, PharmD Walker request 09/08/2024 Patient Outreach [address] [address] Mary Flores MD Transition Of Care (Tcm) (HDF scheduled and SDOH screening negative and Tobacco screening negative) 09/08/[address] [address] Mary Flores MD Hospital Follow-up 08/11/2024 9:30 AM EDT Office Visit [address] MD Pneumonia due to infectious organism, unspecified laterality, unspecified part of lung (Primary Dx) 08/11/2024 Travel 08/09/[address] [address] Mary Flores MD ER Follow-up 08/06/2024 Orders Only GENERIC EXTERNAL DATA DEPARTMENT Provider, Generic External Data 07/23/[address] [phone] Mary Flores MD 07/12/2024 3:30 PM EST Office Visit [address] [phone] Mary Flores MD Chronic obstructive pulmonary disease, [...] lumbar intervertebral disc 07/12/2024 Travel 07/08/[address] [phone] Mary Flores MD Durable Medical Equipment 07/06/[address] [phone] Mary Flores MD FYI 07/05/2024 Orders Only GENERIC EXTERNAL DATA DEPARTMENT Provider, Generic External Data from Last 3 Months Immunizations Immunization Administration Dates Next Due Influenza High-dose Quadriva [...] 09/24/2024 1:45 PM EDT Nurse Only [facility] [address] [place] [address] Health Maintenance Due Date Last Done Comments [...] 05/12/2024 024, 08/06/2023, 07/23/2023, Additional history exists Lipid Panel 07/22/2024 07/23/2023, 05/0 07/2021, 11/09/2020 Depression Screening 11/09/2024 11/10/2023, 11/10/19 24 Diabetes: Foot Exam 11/09/2024 11/10/2023 Tobacco Screening 08/11/2025 08/11/2024 SDOH Screening 09/08/2025 09/08/2024 Eye Exam 04/30/2026 04/30/2024, 04/12, 04/30/2024, Additional [...] EDT Narrative 08/21/2024 9:07 AM EDT ? [facility] ?[address] ?[place] [address] ?XRay Report ? Signed ? Patient: Zamora OrdonezMargarita mathews I ?MR#: ?? [id number] ? : 1950 ?Acct:[id number] ? Age/Sex: 74 / F ?ADM Date: 08/20/24 ? Loc: HO.XRAY ? Attending Dr: Bret Bonner MD ? Ordering Physician: Bret Bonner MD ?? Date of Service: 08/20/24 ?? Procedure(s): XR chest 2V ?? Accession Number(s): [id number] ? cc: Mary Flores; Bret Bonner MD [...] MD in OV> ?08/21/24 0907 ? DD/ 0905 ? TD/TT: 08/21/24 0905 ? Semiconductor Equipment Technician: ? Procedure Note Donotuseinterpreter, Image - 08/21/[address] [address] XRay Report Signed Patient: Margarita Flores [facility]#: [id number] : 9Acct:[id number] Age/Sex: 74 / FADM Date: 08/20/24 Loc: HO.XRAY Attending Dr: Bret Bonner MD Ordering Physician: Bret Bonner MD Date of Service: 08/20/24 Procedure(s): XR chest 2V Accession Number(s): [id number] cc: Mary Flores; Bret Bonner MD CLINICAL [...] in OV> 08/21/24906 DD/ 4 TD/TT: 08/21/24904 Semiconductor Equipment Technician: us [facility] External Provider IMG XR PROCEDURES Final Result * CTA Chest PE Protocal (08/15/2024 3:56 PM EDT) Anatomical Region Laterality Modality Body, Chest Computed Tomogra phy 08/15/2024 3:56 PM EDT Narrative 08/15/2024 3:57 PM EDT ? [facility] ?[address] ?[place] [address] ? CT Scan Report ? Signed ? Patient: Zamora Ordonez,Margarita I ?MR#: ?? [id number] ? : 1950 ?Acct:[id number] ? Age/Sex: 74 / F ?ADM Date: 08/15/ ? Loc: HO.ED ? Attending Dr: ? Ordering Physician: Jose Martin Rome ?? Date of Service: 08/15/24 ?? Procedure(s): CT angio chest PE protocol ?? Accession Number(s): [id number] ? cc: Mary Flores; Jose Martin Rome ? Report Number: ?? [id number]: Total DLP = ??426.00 mGy-cm ? CLINICAL HISTORY: sob, cp ? CT angiography chest with contrast. 3D Postprocessing. ? Comparison: CT/[place] - CT ANGIO CHEST PE PROTOCOL - [...] David Villalobos MD in OV> ? 08/15/24 1557 ? DD/ 1556 ? TD/TT: 08/15/24 1556 ? Semiconductor Equipment Technician: ? Procedure Note Jordon Ku - 08/15/[address] [address] [address] Scan Report Signed Patient: Margarita Flores [facility]#: [id number] : 9Acct:[id number] Age/Sex: 74 / FADM Date: 08/15/24 Loc: HO.ED Attending Dr: Ordering Physician: Jose Martin Rome Date of Service: 08/15/24 Procedure(s): CT angio chest PE protocol Accession Number(s): [id number] cc: Mary Flores; Jose Martin Rome Report Number: [id number]: Total DLP = 426.00 mGy-cm CLINICAL HISTORY: sob, cp CT angiography chest with contrast. 3D Postprocessing. Comparison: CT/[place] - CT ANGIO CHEST PE PROTOCOL - [...] 08/15/24 1557 DD/ 1556 TD/TT: 08/15/24 1556 Semiconductor Equipment Technician: [facility] External Provider IMG CT PROCEDURES Edited Result - Final * High Sensitivity Troponin I (08/06/2024 10:20 AM EDT) Only the most recent of2 resultswithin the time period is included. TROPONIN I HIGH SENSITIVITY <2.7 <3.5 - 17.0 ng/L [facility] Comment:The Mariscal high sens itivity Troponin-I results should beused in conjunction with other diagnostic information suchas ECG, clinical observations and information, and patientsymptoms to aid in the diagnosis of CO. 08/06/2024 10:2 0 AM EDT 08/06/2024 10:23 AM EDT Generic External Data Provider LAB BLOOD ORDERAB LES Final Result [facility] [address] [place] [address] [phone] * CT Chest w/ Contrast (08/06/2024 9:08 AM EDT) Anatomical Region Laterality Modality Body, Chest Computed Tomogra phy 08/06/2024 9:08 AM EDT Narrative 08/06/2024 9:42 AM EDT ? [facility] ?[address] ?[place] [address] ? CT Scan Report ? Signed ? Patient: Margarita Flores I ?MR#: ?? [id number] ? : 1950 ?Acct:[id number] ? Age/Sex: 74 / F ?ADM Date: 08/06/24 ? Loc: HO.ED ? Attending Dr: ? Ordering Physician: Bettina Mccloud ?? Date of Service: 08/06/24 ?? Procedure(s): CT chest w IV con ?? Accession Number(s): [id number] ? cc: Mary Flores; Bettina Mccloud ? Report Number: ?? [id number]: Total DLP = ??250.00 mGy-cm ?? EXAMINATION: [...] ?08/06/24 0940 ? DD/ 0908 ? TD/TT: 08/06/24927 ? Semiconductor Equipment Technician: ? Procedure Note Jordon Ku - 08/06/[address] [address] [address] Scan Report Signed Patient: Margarita Flores IMR#: [id number] : 9Acct:[id number] Age/Sex: 74 / FADM Date: 08/06/24 Loc: HO.ED Attending Dr: Ordering Physician: Bettina Mccloud Date of Service: 08/06/24 Procedure(s): CT chest w IV con Accession Number(s): [id number] cc: Mary Flores; Bettina Mccloud Report Number: [id number]: Total DLP = 250.00 mGy-cm EXAMINATION: CT [...] in OV> 08/06/24939 DD/ 7 TD/TT: 08/06/24927 Semiconductor Equipment Technician: [facility] External Provider IMG CT PROCEDURES Final Result * XR Chest 1 View (08/06/2024 7:57 AM EDT) Anatomical Region Laterality Modality Chest Radiographic Jessica ging 08/06/2024 7:57 AM EDT Narrative 08/06/2024 8:27 AM EDT ? [facility] ?[address] ?[place] [address] ?XRay Report ? Signed ? Patient: Margarita Flores I ?MR#: ?? [id number] ? : 1950 ?Acct:[id number] ? Age/Sex: 74 / F ?ADM Date: 08/06/24 ? Loc: HO.ED ? Attending Dr: ? Ordering Physician: Bettina Mccloud ?? Date of Service: 08/06/24 ?? Procedure(s): XR chest 1V ?? Accession Number(s): [id number] ? cc: Mary Flores; Bettina Mccloud ? [...] DD/ 0757 ? TD/TT: 08/06/24 0820 ? Semiconductor Equipment Technician: ? Procedure Note Jordon Ku - 08/06/[address] [address] XRay Report Signed Patient: Margarita Flores [facility]#: [id number] : 9Acct:[id number] Age/Sex: 74 / FADM Date: 08/06/24 Loc: .ED Attending Dr: Ordering Physician: Bettina Mccloud Date of Service: 08/06/24 Procedure(s): XR chest 1V Accession Number(s): [id number] cc: Mary Flores; Bettina Mccloud EXAMINATION: XR [...] 08/06/24 0824 DD/ 0757 TD/TT: 08/06/24 0820 Semiconductor Equipment Technician: [facility] External Provider IMG XR PROCEDURES Final Result * SARS-CoV-2 RNA, Influenza A/B, and RSV RNA, Ql NAAT (08/06/2024 7:38 AM EDT) Influenza A PCR NEGATIVE Negative [facility] Influenza B PCR NEGATIVE Negative [facility] Resp Syncy Virus RNA Qual PCR NEGATIVE Negative [facility] SARS COV2 PCR NEGATIVE Negative [facility] Comment:All test results mus t [...] use by authorized laboratories.Testing performed on the [employer] GeneXpert utilizingreal-time RT-PCR.All SARS CoV2 and positive influenza A/B results arereported to [facility]. 08/06/2024 7:38 AM EDT 08/06/2024 7:42 AM EDT us Generic External Data Provider LAB MICROBIOLOGY - GENERAL ORDERABLES Final Result [facility] [address] [place] [phone] * (ABNORMAL) CBC auto differential (08/06/2024 6:32 AM EDT) Only the most recent of2 resultswithin the time period is included. White Blood Count 9.5 4.8 - 10.8 X10*3/uL [facility] Red Blood Count 4.54 4.20 - 5.50 X10*6/uL [facility] Hemoglobin 13.6 12.0 - 16.0 g/dl [facility] Hematocrit 39.9 37.0 - 47.0 % [facility] Mean Corpuscular Volume 87.9 80.0 - 98.0 fL [facility] Mean Corpuscular Hemoglobin 30.0 27.0 - 33.0 pg [facility] Mean Corpuscular HGB Conc 34.1 31.0 - 35.0 g/dl [facility] Red Cell Distribution Width 12.9 11.0 - 16.0 % [facility] Platelet Count 267 160 - 400 X10*3/uL [facility] Mean Platelet Volume 10.7 9.4 - 12.3 fL [facility] Neutrophils Percent Auto 65.8 45 - 73 % [facility] Imm Gran Pct Auto 0.3 0.0 - 0.4 % [facility] Lymphocytes Percent Auto 16.2(L) 20 - 40 % [facility] Monocytes Percent Auto 9.3 2 - 11 % [facility] Eosinophils Percent Auto 7.7(H) 0 - 4 % [facility] Basophils Percent Auto 0.7 0 - 2 % [facility] NRBC Pct Auto 0.0 0.0 - 0.2 /100WBC [facility] Neutrophils Absolute Auto 6.3 2.0 - 8.3 x10*3/uL [facility] Imm Gran Abs Auto 0.03 0.00 - 0.03 X10*3/uL [facility] Lymphocytes Absolute Auto 1.5 1.2 - 4.9 X10*3/uL [facility] Monocytes Absolute Auto 0.9 0.1 - 1.2 X10*3/uL [facility] Eosinophils Absolute Auto 0.7(H) 0.0 - 0.4 X10*3/uL [facility] Basophils Absolute Auto 0.1 0.0 - 0.2 X10*3/uL [facility] NRBC Abs Auto 0.000 0.0 - 0.012 X10*3/uL [facility] 08/06/2024 6:32 AM EDT 08/06/2024 6:35 AM EDT us Generic External Data Provider LAB BLOOD ORDERAB LES Final Result [facility] [address] [place] [address] [phone] * (ABNORMAL) Comprehensive Metabolic Panel (08/06/2024 6:32 AM EDT) Sodium 138 135 - 145 mmol/L [facility] Potassium 4.3 3.3 - 5.1 mmol/L [facility] Chloride 108 96 - 108 mmol/L [facility] Carbon Dioxide 24 22 - 29 mmol/L [facility] Anion Gap 10(L) 12 - 20 [facility] Urea Nitrogen (BUN) 14 9 - 16 mg/dL [facility] Creatinine, Serum 0.67 0.5 - 1.4 mg/dL [facility] Creatinine Clr Calc Pharmacy 77.7 [facility] Comment:Provided height and weight: 160.02 cm,91 kg.eGFR (calculated from the MDRD study equation) and eCrCl(calculated from the Cockcroft-Gault equation) are based ondifferent parameters and may not yield comparable results.If eCrCl result is absurd, please check patient'sheight/weight. Estimated Glomerular Filt Rate >60 [facility] Comment:Chronic Kidney Disea se: Estimated GFR < 60 mL/min/1.72f0Jwvxqq Kidney Disease: Estimated GFR < 15 mL/min/1.73m2 Glucose 140(H) 60 - 115 mg/dL [facility] Calcium 9.5 8.4 - 10.2 mg/dL [facility] Bilirubin, Total 1.4(H) 0.0 - 1.0 mg/dL [facility] Aspartate Amino Transferase 23 5 - 31 U/L [facility] Alanine Aminotransferase 16 0 - 31 U/L [facility] Total Protein 7.0 6.5 - 8.0 g/dL [facility] Albumin Level 3.9 3.5 - 5.0 g/dL [facility] Alkaline Phosphatase 83 39 - 117 U/L [facility] 08/06/2024 6:32 AM EDT 08/06/2024 6:35 AM EDT us Generic External Data Provider LAB BLOOD ORDERAB LES Final Result [facility] [address] [place] [address] [phone] * MR Cervical Spine w/o Contrast (07/09/2024 7:40 AM EST) Anatomical Region Laterality Modality Spine, C-spine Magnetic Resonan ce 07/09/2024 7:40 AM EST Narrative 07/09/2024 8:45 AM EST ? [facility] ?[address] ?[place] [address] ? Magnetic Resonance Report ? Signed ? Patient: Zamora Ordonez,Margarita I ?MR#: ?? [id number] ? : 1950 ?Acct:[id number] ? Age/Sex: 74 / F ?ADM Date: 07/09/24 ? Loc: HO.MRI ? Attending Dr: France BUSTAMANTE ? Ordering Physician: France Verduzco ?? Date of Service: 07/09/24 ?? Procedure(s): MR cervical spine wo con ?? Accession Number(s): [id number] ? cc: France Verduzco; Mary Flores ? [...] DD/ 0740 ? TD/TT: 07/09/24 0805 ? Semiconductor Equipment Technician: ? Procedure Note [place], Image - 07/09/2024 [place] [address] Magnetic Resonance Report Signed Patient: Margarita Flores IMR#: [id number] : 9Acct:[id number] Age/Sex: 74 / FADM Date: 07/09/24 Loc: HO.MRI Attending Dr: France BUSTAMANTE Ordering Physician: France Verduzco Date of Service: 07/09/24 Procedure(s): MR cervical spine wo con Accession Number(s): [id number] cc: France Verduzco; Mary Flores EXAMINATION: MR [...] 07/09/24 0842 DD/ 0740 TD/TT: 07/09/24 0805 Semiconductor Equipment Technician: [facility] External Provider IMG MRI PROCEDURES Final Result * Sed Rate by Modified [place] (07/05/2024 10:48 AM EST) Erythrocyte Sedimentation Rate 8 0 - 20 MM/HR [facility] Comment:Patients with polycy themia and many hemoglobin abnormalitiesmay have depressed sed rates whereas patients with anemiamay have elevated sed rates. 07/05/2024 10:4 8 AM EST 07/05/2024 10:48 AM EST Generic External Data Provider LAB BLOOD ORDERAB LES Final Result [facility] [address] [place] [phone] * (ABNORMAL) Immunoglobulins, Quantitative, IgA, IgG, IgM (07/05/2024 10:48 AM EST) Pathologist [facility] IMMUNOGLOBULIN G 1176 600 - 1540 mg/dL [facility] IMMUNOGLOBULIN A 392(A) 70 - 320 mg/dL [facility] Immunoglobulin M 80 50 - 300 mg/dL [facility] Comment:THIS TEST WAS PERFOR MED AT:[employer] [place] [id number] SWENSON MD 07/05/2024 10:4 8 AM EST 07/05/2024 10:48 AM EST Generic External Data Provider LAB BLOOD ORDERAB LES Final Result Performing Organization Address [facility] Co de Phone Number [facility] [address] [place] [phone] * Immunoglobulin E (07/05/2024 10:48 AM EST) Pathologist [facility] Immunoglobulin E 15 <NM=535 kU/L [facility] Comment:THIS TEST WAS PERFOR MED AT:[employer] [address] [id number] SWENSON MD 07/05/2024 10:4 8 AM EST 07/05/2024 10:48 AM EST Generic External Data Provider LAB BLOOD ORDERAB LES Final Result Performing Organization Address [facility] Co de Phone Number [facility] [address] [place] [phone] * (ABNORMAL) Basic Metabolic Panel (07/05/2024 10:48 AM EST) [facility] Sodium 140 135 - 145 mmol/L [facility] Potassium 4.1 3.3 - 5.1 mmol/L [facility] Chloride 107 96 - 108 mmol/L [facility] Carbon Dioxide 27 22 - 29 mmol/L [facility] Anion Gap 10(L) 12 - 20 [facility] Urea Nitrogen (BUN) 13 9 - 16 mg/dL [facility] Creatinine, Serum 0.64 0.5 - 1.4 mg/dL [facility] Estimated Glomerular Filt Rate >60 [facility] Comment:Chronic Kidney Disea se: Estimated GFR < 60 mL/min/1.16h7Zfuylf Kidney Disease: Estimated GFR < 15 mL/min/1.73m2 Glucose 91 60 - 115 mg/dL [facility] Calcium 9.6 8.4 - 10.2 mg/dL [facility] 07/05/2024 10:4 8 AM EST 07/05/2024 10:48 AM EST Generic External Data Provider LAB BLOOD ORDERAB LES Final Result [facility] [address] [place] [phone] * POCT HGB A1C (11/10/2023 2:27 PM EDT) Hemoglobin A1C 5.2 4.0 - 6.0 % QC Media Lot # [id number] Lot# Expiration Date ,714 Blood 11/10/2023 2:27 PM EDT Mary Flores MD POINT OF CARE TEST ENTER/EDIT ORDERABLES Final Result * Lipid Panel, Standard (07/23/2023 3:35 PM EDT) Triglycerides 142 <150 mg/dL [facility] Comment:Desirable Triglyceri de: less than 150 mg/dLBorderline High Triglyceride 150-199 mg/dLHigh Triglyceride: 200-499 mg/dLVery High Triglyceride: greater than or equal to 5OO mg/dL Cholesterol 152 <200 mg/dL [facility] Comment:Desirable Cholestero l: less than 200 mg/dLBorderline High Cholesterol: 200-239 mg/dLHigh Cholesterol: greater than 239 mg/dL LDL Cholesterol Calculated 77 <100 mg/dL [facility] Comment:Desirable LDL: less than 100 mg/dLNear Optimal/Above Optimal LDL: 110- 129 mg/dLBorderline High LDL: 130-159 mg/dLHigh LDL: 160-189 mg/dLVery High LDL: greater than or equal to 190 mg/dL HDL Cholesterol 47 >40 mg/dL [facility] Comment:Desirable HDL: great er than 40 mg/dL Note: This HDL assay may give artificially low results in patients with liver disease. Blood Venous blood specimen / Unknown 07/23/2023 3:35 PM EDT 07/23/2023 4:17 PM EDT Mary Flores MD LAB BLOOD ORDERABLES Final Res ult Performing Organization Address City/[facility]/ZIP Co de Phone Number [facility] [address] [place] [address] [phone] * HEPATITIS C AB W/REFL TO HCV RNA, QN, PCR (09/19/2021 9:58 AM EDT) HEPATITIS C ANTIBODY NON-REACT SHANKAR NON-REACT SHANKAR [facility] INDEX 0.01 <1.00 [facility] Comment: ?? HCV antibody was non-reactive. There is no laboratory ?? evidence of HCV infection. ?? In most cases, no further action is required. However, if recent HCV exposure is suspected, a test for HCV RNA (test code 93377) is suggested. ?? For additional information please refer to http://education.[employer]/faq/WZU63y9 (This link is being provided for informational/ educational purposes only.) ?? 09/19/2021 9:58 AM EDT us Frances BRIGHTP HISTORICAL/NON ORDERABLE LABS Final Result Performing Organization Address City/[facility]/ZIP Co de Phone Number [facility] [address] [place] [address], * ALBUMIN, RANDOM URINE W/CREATININE (09/13/2021 2:19 [...] SYSTEM 09/13/2021 2:19 PM EDT Frances Fowler RECEIVER DISPATCHER LAB URINE ORDERABLES Final Res ult [facility] [address] * Colonoscopy (01/19/2021 8:45 AM EDT) Historical Provider HEALTH MAINTENANCE Final Result from Last 3 Months or Most Recently Relevant to Health Maintenance Insurance [id number] SKILLED NURSING OPTIONS (O D-SNP) [facility]-[place] [facility] [employer] STAND ADULT Care Teams Rug Frame Mounter Relationship Specialty Start Date End Date Mary Flores MD [address] [place] [phone] PCP - General Family Medicine 01/05/22 [employer] 08/29/24
--- OUTSIDE RECORDS SUMMARY | 2024-09-24 13:44 | XMS_ITS | Encounter Summary ---
Author Organization [employer] Address 75 [facility] 7t [place] [address] Care Team Providers Care Balance Wheel Arm Burnisher Name Role Phone Mary Flores MD Primary Care Provider [phone] Reason for Visit * Reason Onset Date Comments Durable Medical Equipment 07/08/2024 Encounter Details Date Type Department Care Team ([facility] st Contact Info) Description 07/08/2024 Telephone [facility] MEDICINE [address] [place], [place] [phone] Mary Flores MD [address] [place] [address] Durable Medical Equipment Social History Tobacco Use [...] Description 09/24/2024 1:45 PM EDT Nurse Only [facility] MEDICINE [address] [place] [address] documented as of this encounter Visit Diagnoses Not on filedocumented in this encounter Additional Health Concerns Assessment Noted Time PHQ-9 Depression Total Score: 7 11/10/19 24 2:30 PM EDT documented as of this encounter Care Teams Balance Wheel Arm Burnisher Relationship Specialty Start Date End Date Mary Flores MD [address] [place] [address] PCP - General Family Medicine 01/05/22 [employer] 08/29/24 documented as of this encounter
--- OUTSIDE RECORDS SUMMARY | 2024-09-24 13:44 | XMS_ITS | Encounter Summary ---
Author Organization [employer] Address [address] [facility] [address] 7t [place] [address] Care Team Providers Care Military Science Teacher Name Role Phone Mary Flores MD Primary Care Provider [phone] Reason for Visit * Reason Comments Med Change Request Encounter Details Date Type Department Care Team ([facility] st Contact Info) Description 12/05/2023 Refill [facility] WALK[facility]IN CENTER [address] [place], [place] [phone] Tyrel Trivedi MD [address] [place] [address] Social History Tobacco Use Types Packs/Day Years [...] Description 09/24/2024 1:45 PM EDT Nurse Only [facility] MEDICINE [address] [place] [address] documented as of this encounter Visit Diagnoses Not on filedocumented in this encounter Additional Health Concerns Assessment Noted Time PHQ-9 Depression Total Score: 7 11/10/19 24 2:30 PM EDT documented as of this encounter Care Teams Military Science Teacher Relationship Specialty Start Date End Date Mary Flores MD [address] [place] [address] PCP - General Family Medicine 01/05/22 [employer] 08/29/24 documented as of this encounter
--- OUTSIDE RECORDS SUMMARY | 2024-09-24 13:44 | XMS_ITS | Encounter Summary ---
Author Organization [employer] Address 75 [facility] 7t [place] [address] Care Team Providers Care Franchise Sales Manager Name Role Phone Mary Flores MD Primary Care Provider [phone] Reason for Visit * Reason Onset Date Comments filling fell out 01/19/2024 Encounter Details Date Type Department Care Team ([facility] st Contact Info) Description 01/19/2024 Telephone [facility] ADULT DENTAL [address] [place] [address] Sari Mckinnon DDS [address] [place] [address] filling fell out Social History Tobacco Use [...] Description 09/24/2024 1:45 PM EDT Nurse Only [facility] MEDICINE [address] [place] [address] documented as of this encounter Visit Diagnoses Not on filedocumented in this encounter Additional Health Concerns Assessment Noted Time PHQ-9 Depression Total Score: 7 11/10/19 24 2:30 PM EDT documented as of this encounter Care Teams Franchise Sales Manager Relationship Specialty Start Date End Date Mary Flores MD 230 [place] [address] PCP - General Family Medicine 01/05/22 [employer] 08/29/24 documented as of this encounter
--- OUTSIDE RECORDS SUMMARY | 2024-09-24 13:44 | XMS_ITS | Encounter Summary ---
Author Organization [employer] Address [address] [facility] 7t [place] [address] Care Team Providers Care Stock Control Clerk Name Role Phone Mary Flores MD Primary Care Provider [phone] Reason for Visit * Reason Onset Date Comments ER Follow-up 08/09/2024 Encounter Details Date Type Department Care Team ([facility] st Contact Info) Description 08/09/[address] [facility] MEDICINE [address] [place] [address] Mary Flores MD [address] [place] [address] ER Follow-up Social History Tobacco Use Types [...] 08/09/2024 9:32 AM EDT Triage call [place] [facility] [id number] Pt was hospitalized 08/06/24 @ [facility] for pneumonia, pleural effusion and SOB. (Report [...] visit on : Date: 08/06/24 Hospital: [facility] Seen for: Chest Pain Symptomatic Yes *if yes message should go to Triage Patient advised will forward to team nurse for follow up Contact pt at [phone] documented in this encounter Plan of Treatment Upcoming Encounters Date Type Department Care Team (Late st Contact Info) Description 09/24/2024 1:[address] [facility] MEDICINE [address] [place] [address] documented as of this encounter Visit Diagnoses Not on filedocumented in this encounter Additional Health Concerns Assessment Noted Time PHQ-9 Depression Total Score: 7 11/10/19 24 2:30 PM EDT documented as of this encounter Care Teams Stock Control Clerk Relationship Specialty Start Date End Date Mary Flores MD [address] [place] [address] PCP - General Family Medicine 01/05/22 [employer] [facility] 08/29/24 documented as of this encounter
--- OUTSIDE RECORDS SUMMARY | 2024-09-24 13:44 | XMS_ITS | Continuity of Care Document ---
Author Organization [facility] Address [address] [facility] [address] [facility] [address] [place] [address] Phone Care Team Providers Care Chin Strap Sewer Name Role Phone Juan DE LA TORRE, [...] Mins- [place] & [place] [facility], [address] [place] [address] [address], [place], [id number], [place] tel:[phone] CVR - [place] Venous insufficiency (chronic) (peripheral) 5 Juan DE LA TORRE RVT, HAMLET Simon. [address] [facility], [address], [facility], [place], [id number] , [place]. [phone] Referring Provider: Mary Flores MD, [address] [place] [address], [address]. tel:[phone] [facility] [facility], [address] [place] [address] [address], [id number], [place] [phone] CVR [place] Pain in right leg 5 Juan DE LA TORRE RVT, HAMLET Simon. [address] [place] [address], [facility], [place], [id number] , [place]. [phone] Referring Provider: Mary Flores MD, [address] [place] [address], [address]. tel:[phone] [facility], [address] [place] [address] [address], [id number], [place] tel:[phone] CVR - [place] Encounter for follow-up examination after completed treatment for conditions other than malignant neoplasmPain in right leg 4 Juan DE LA TORRE RVT, HAMLET [place]. [address] [facility], [facility] [address], [facility], [place], [id number] , [place]. [phone] Referring Provider: Mary Flores MD, [address] [place] [address], [address]. tel:[phone] [place] [facility], [address] [place] [address] [address], [id number], [place] tel:[phone] CVR - [place] Varicose veins of right lower extremity with other complications 4 Juan DE LA TORRE RVT, HAMLET Simon. [address] [facility] [address], [facility], [place], [id number] , [place]. [phone] Referring Provider: Mary Flores MD, [address] [place] [address], [address]. tel:[phone] [facility], [address] [place] [address] Dr [address], [id number], [place] tel:[phone] CVR - [place] No Information Nov-0 4 Juan DE LA TORRE RVT, HAMLET [place]. [address] [facility], [address], [facility], [place], [id number] , [place]. tel:[phone] Offic/outpt E&m Estab 5 Min Trial- [place] & [place] [facility], [address] [place] [address] Dr [address], [id number], [place] tel:[phone] [facility] [place] Chronic venous hypertension (idiopathic) with other complications of bilateral lower extremity Oct- 4 Juan DE LA TORRE RVT, HAMLET [place]. [address] [place] [address], [facility], [place], [id number] , [place]. tel:[phone] Referring Provider: Mary Flores MD, [address] [place] [address], [address]. tel:[phone] Offic Cons New/estab Mod 40 Mi- [place] & [place] [facility], [address] [place] [address] Dr [address], [id number], [place] tel:[phone] [facility] Hereditary lymphedemaCramp and spasmChronic venous hypertension (idiopathic) with other complications of bilateral lower extremityPain in right legPain in left legRestless legs syndromeVenous insufficiency (chronic) (peripheral)Lym phedema, not elsewhere classifiedLocal ized edema Sep-0 4 Juan DE LA TORRE RVT, HAMLET Simon. [address] [facility], [place] [address], [facility], [place], [id number] , [place]. tel:[phone] Referring Provider: Mary Flores MD, [address] [place] [address], [address]. tel:[phone] [place] [facility], [address] [place] [address] Dr [address]Su[place]ell [place], [id number], [place] tel:[phone] CVR [facility] Chronic venous hypertension (idiopathic) with other complications of bilateral lower extremity Juan DE LA TORRE, RVT, RPVI Alfred. [address] [facility], [address], [place], [place], [id number] , . tel:[phone] Referring Provider: Mary Flores MD, [address] [place], [address]. tel:[phone] Family History Family Member Type Diagnosis Age At Onset No Information Payers Payer name Insurance type Covered green party ID Rosalind lemus(s) [facility] CI [id number] Social History Type Description Quantity Date Captured [...]
--- OUTSIDE RECORDS SUMMARY | 2024-09-24 13:44 | XMS_ITS | Encounter Summary ---
Author Organization [employer] [facility] Address [address] [facility] 7t [place] [address] Care Team Providers Care Accounts Payable Specialist Name Role Phone Mary Flores MD Primary Care Provider [phone] Encounter Details Date Type Department Care Team (Latest Contact Info) Description 01/29/2021 Abstract [facility] CONVERSIONS Dental, Provider, DDS Social History Tobacco [...] 09/24/2024 1:45 PM EDT Nurse Only [facility] MEDICINE [address] [place] [address] documented as of this encounter Visit Diagnoses Not on filedocumented in this encounter Care Teams Accounts Payable Specialist Relationship Specialty Start Date End Date Mary Flores MD 230 [place] [address] PCP - General Family Medicine 01/05/22 [employer] [facility] 08/29/24 documented as of this encounter
--- OUTSIDE RECORDS SUMMARY | 2024-09-24 13:44 | XMS_ITS | Encounter Summary ---
Author Organization [employer] Address [address] [facility] 7t [place] [address] Care Team Providers Care Radial Saw Operator Name Role Phone Mary Flores MD Primary Care Provider Reason for Visit * Reason Onset Date Comments Appointment Request 06/13/2023 Encounter Details Date Type Department Care Team ([facility] st Contact Info) Description 06/13/2023 Telephone [facility] MEDICINE 230 [place], [place] [phone] Mary Flores MD [address] [place], [place] [phone] Appointment Request Social History Tobacco Use Types [...] 1:45 PM EDT Nurse Only [facility] MEDICINE 230 [place] [address] documented as of this encounter Visit Diagnoses Not on filedocumented in this encounter Care Teams Radial Saw Operator Relationship Specialty Start Date End Date Mary Flores MD [address] [place] [address] PCP - General Family Medicine 01/05/22 [employer] 08/29/24 documented as of this encounter
--- OUTSIDE RECORDS SUMMARY | 2024-09-24 13:44 | XMS_ITS | Encounter Summary ---
Author Organization [employer] Address [address] [facility] 7t [place] [address] Care Team Providers Care Office Machine Punch Operator Name Role Phone Mary Flores MD Primary Care Provider [phone] Reason for Visit * Reason Comments Med Refill Encounter Details Date Type Department Care Team ([facility] st Contact Info) Description 07/23/2024 Refill [facility] MEDICINE [address] [place], [place] [phone] Mary Flores MD [address] [place] [address] Social History Tobacco Use Types Packs/Day Years [...] Description 09/24/2024 1:45 PM EDT Nurse Only [facility] MEDICINE [address] [place] [address] documented as of this encounter Visit Diagnoses Not on filedocumented in this encounter Additional Health Concerns Assessment Noted Time PHQ-9 Depression Total Score: 7 11/10/19 24 2:30 PM EDT documented as of this encounter Care Teams Office Machine Punch Operator Relationship Specialty Start Date End Date Mary Flores MD [address] [place] [address] PCP - General Family Medicine 01/05/22 [employer] [facility] 08/29/24 documented as of this encounter
--- OUTSIDE RECORDS SUMMARY | 2024-09-24 13:44 | XMS_ITS | Encounter Summary ---
Author Organization [employer] [facility] Address [address] [facility] 7t [place] [address] Care Team Providers Care Errand Runner Name Role Phone Mary Flores MD Primary Care Provider [phone] Encounter Details Date Type Department Care Team (Late Contact Info) Description 08/27/2022 Orders Only [facility] MEDICINE [address] [place] [phone] Mary Flores MD [address] [place] [phone] Social History Tobacco Use Types Packs/Day Years [...] Nurse Only [facility] MEDICINE [address] [place] [phone] documented as of this encounter Visit Diagnoses Not on filedocumented in this encounter Care Teams Errand Runner Relationship Specialty Start Date End Date Mary Flores MD [address] [place] [address] PCP - General Family Medicine 01/05/22 [employer] [facility] 08/29/24 documented as of this encounter
--- OUTSIDE RECORDS SUMMARY | 2024-09-24 13:44 | XMS_ITS | Clinical Summary ---
Author Organization [facility] Address [address] [address] Care Team Providers Care Adhesion Tester Name Role Phone Frances Fowler RN Primary [...] DAILY FOR 2 DAYS. 12/21/2020 Active Creon 97568-36535 units capsule TAKE 1 CAPSULE BY MOUTH [...] by mouth 02/12/2021 Active ergocalciferol 1.25 MG (17497 UT) capsule TAKE 1 CAPSULE BY MOUTH [...] Dual Elig Plan Dual Elig Care Teams Adhesion Tester Relationship Specialty Start Date End Date Frances Fowler RN PCP - General Family Medicine 11/09/20
--- OUTSIDE RECORDS SUMMARY | 2024-09-24 13:44 | XMS_ITS | Encounter Summary ---
Author Organization [employer] Address [address] [facility] [address] 7t [place] [address] Care Team Providers Care Hospital Internship Name Role Phone Mary Flores MD Primary Care Provider Reason for Visit * Reason Comments Med Refill Encounter Details Date Type Department Care Team (Late st Contact Info) Description 04/19/2024 Refill [facility] 230 [place], [place] [phone] Olga Dillard, RONY [address] [place] [address] Nasal congestion Social History Tobacco Use Types [...] Description 09/24/2024 1:45 PM EDT Nurse Only [facility] MEDICINE 230 [place] [address] documented as of this encounter Visit Diagnoses Diagnosis Nasal congestion Other diseases of nasal cavity and sinuses documented in this encounter Additional Health Concerns Assessment Noted Time PHQ-9 Depression Total Score: 7 11/10/19 24 2:30 PM EDT documented as of this encounter Care Teams Hospital Internship Relationship Specialty Start Date End Date Mary Flores MD [address] [place] [address] PCP - General Family Medicine 01/05/22 [employer] [facility] 08/29/24 documented as of this encounter
--- OUTSIDE RECORDS SUMMARY | 2024-09-24 13:44 | XMS_ITS | Encounter Summary ---
Author Organization [employer] Address [address] [facility] 7t [place] [address] Care Team Providers Care Braze Operator Name Role Phone Mary Flores MD Primary Care Provider [phone] Encounter Details Date Type Department Care Team ([facility] st Contact Info) Description 12/17/2023 Orders Only [facility] MEDICINE [address] [place] [address] Mary Flores MD [address] [place] [address] Social History Tobacco Use Types Packs/Day Years [...] 1:45 PM EDT Nurse Only [facility] MEDICINE [address] [place] [address] documented as of this encounter Visit Diagnoses Not on filedocumented in this encounter Additional Health Concerns Assessment Noted Time PHQ-9 Depression Total Score: 7 11/10/19 24 2:30 PM EDT documented as of this encounter Care Teams Braze Operator Relationship Specialty Start Date End Date Mary Flores MD [address] [place] [address] PCP - General Family Medicine 01/05/22 [facility] 08/29/24 documented as of this encounter
--- OUTSIDE RECORDS SUMMARY | 2024-09-24 13:44 | XMS_ITS | Clinical Summary ---
Author Organization [facility] Address [address] [place] [address] Phone Care Team Providers Care Manager Internal Name Role Phone Mary Flores MD Primary Care Provider [phone] Allergies Active Allergy Reactions Criticality Noted Date [...] needed for shortness of breath or wheezing 08/07/19 25 Active aspirin 81 mg chewable tablet Chew 1 tablet (81 mg total) daily. 07/13/19 25 026 Active atorvastatin (LIPITOR) 10 mg tablet Take 1 tablet (10 mg total) by mouth 1 (one) time each day. Active budesonide-for moteroL (SYMBICORT) 160-4.5 mcg/actuation inhaler Inhale 2 puffs by mouth every 12 hours. 08/05/19 19 Active carbidopa-levo dopa (SINEMET) 25-100 mg per tablet Take 1 tablet by mouth 2 times daily. 06/11/19 25 Active cetirizine (ZyrTEC) 10 mg tablet Take 1 tablet (10 mg total) by mouth 1 (one) time each day. Active dilTIAZem CD (CARDIZEM CD) 300 mg 24 hr capsule Take 1 capsule (300 mg total) by mouth daily. 05/01/20 24 Active Dupixent Pen 300 mg/2 mL pen Inject 2 mL (300 mg total) under the skin every 14 days. 08/10/19 25 Active hydroCHLOROthi azide 12.5 mg tablet Take 1 tablet (12.5 mg total) by mouth daily. 07/20/19 25 026 Active ibuprofen (ADVIL,MOTRIN) 800 mg tablet Take 1 tablet (800 mg total) by mouth every 6 hours as needed. 07/13/19 25 025 Active imipramine (TOFRANIL) 50 mg tablet Take 0.5 tablets (25 mg total) by mouth 2 (two) times a day. Active Linzess 290 mcg capsule Take 1 capsule (290 mcg total) by mouth 1 (one) time each day before breakfast. Active lisinopril (PRINIVIL,ZEST RIL) 40 mg tablet Take 1 tablet (40 mg total) by mouth 1 (one) time each day. 07/13/19 25 Active magnesium oxide (MAG-OX) 400 mg (241.3 elemental magnesium) tablet Take 1 tablet (400 mg total) by mouth at bedtime. 06/11/19 25 Active metFORMIN (GLUCOPHAGE) 500 mg tablet Take 1 tablet (500 mg total) by mouth 1 (one) time each day with breakfast. 06/01/19 17 Active omeprazole (PriLOSEC) [address] capsule Take 1 capsule (20 mg total) by mouth 1 (one) time each day. 06/22/19 25 Active roflumilast (DALIRESP) 500 mcg tablet Take 1 tablet (500 mcg total) by mouth 1 (one) time each day. Active amoxicillin-cl avulanate (AUGMENTIN) 875-125 mg per tablet Take 1 tablet by mouth 2 times daily. 08/12/19 25 025 Discontinu ed(Stop Taking at Discharge) acetaminophen (TYLENOL) 500 mg tablet Take 2 tablets (1,000 mg total) by mouth every 8 (eight) hours if needed for mild pain for up to 10 days. 30 tablet 08/28/19 25 025 lidocaine 4 % patch Apply 1 patch topically 1 (one) time each day for 10 days. 10 each 08/29/19 25 025 polyethylene glycol (MIRALAX) 17 gram packet Take 17 g by mouth 1 (one) time each day if needed for constipation for up to 10 days. 170 g 08/28/19 25 025 amoxicillin-cl avulanate (AUGMENTIN) 875-125 mg per tablet Take 1 tablet by mouth 2 (two) times a day for 14 days. 28 each 08/28/19 25 025 Active Problems Problem Noted Date Diagnosed Date Arthritis of both knees 09/08/2024 Asthma 09/08/2024 Chronic obstructive pulmonar y disease ([facility], [facility] V28) 09/08/2024 Essential tremor 09/08/2024 Gallstone 09/08/2024 Gastroesophageal reflux disease 09/08/2024 Herniated lumbar intervertebral disc 09/08/2024 Hiatal hernia 09/08/2024 Hyperlipidemia 09/08/2024 Essential hypertension 09/08/2024 Chronic constipation 09/08/2024 Irritable bowel syndrome with constipation 09/08 Lung nodule 09/08/2024 Empyema lung ([facility] V24, [facility] V28) 09/09/19 Assessment & Plan (09/10/2024 4:01 PM EDT): Any 4-year-old female who on 08/21/2024 underwent a da Sara left total decortication, pleural biopsy and bronchoscopy with aspiration and intercostal paravertebral nerve blocks for a left-sided empyema with gram-positive cocci. Presents to the thoracic surgery department today for a postop check. While in office she states that she feels dramatically better since having her operation and no longer is experiencing shortness of breath at rest, persistent coughing, fevers and states that her pain has also improved however still has pain that radiates from her chest wall incisions to her abdominal region and was given reassurance that this is common for the operation that she had performed. She did have a chest x-ray prior to her examination today which did show small reaccumulation of left-sided pleural fluid versus pleural thickening and upon review of this x-ray with thoracic surgeon Dr. Geraldo Rae it was deemed no further follow-up would be required and that she should report to the emergency department should she develop any fevers or increased shortness of breath. Follow-up with the thoracic surgery department moving forward on as-needed basis Obstructive sleep apnea syndrome 09/08/2024 Osteopenia 09/08/2024 Chronic superficial gastritis without bleeding 0 09/08/2024 Migraine with aura and witho ut status migrainosus, not intractable 09/08/2024 Metabolic syndrome X 09/08/2024 Mixed stress and urge incontinence 09/08/2024 History of skin cancer 09/08/2024 Blurry vision, bilateral 09/08/2024 Enuresis, nocturnal only 09/08/2024 Depression, recurrent ([facility] V24) 09/08/2024 Trapezius muscle spasm 09/08/2024 Influenza A 09/08/2024 Obesity, morbid ([facility] V24, [facility] V28) 09/08 Pneumonia due to infectious organism 09/08/2024 Loculated pleural effusion 08/20/2024 Encounters Date Type Department Care Team Description 09/10/2024 2:14 PM EDT - 09/10/2024 11:59 PM EDT Hospital Encounter [facility] Xray [address] [place] [address] Empyema lung ([facility] V24, [facility] V28) Discharge Disposition: Home or Self Care 09/10/2024 2:00 PM EDT Office Visit Thoracic Surgery - [place] [address] [place] [address] Jose E Garcia, PA Empyema lung ([facility] V24, [facility] V28) (Primary Dx) 08/21/2024 9:33 AM EDT Anesthesia Event [facility] Main OR [address] [place] [address] Jake Garcia DO 08/21/2024 9:15 AM EDT - 08/21/2024 12:00 PM EDT Surgery [facility] Main OR [address] [place] [address] Geraldo Gomez MD da sara THORACOSCOPY DECORTICATION 08/20/2024 11:50 AM EDT - 08/27/2024 1:30 PM EDT Hospital Encounter [facility] Urology Unit [address] [place] [address] Yessy Cosme DO Flores, Carlos M, MD Mohani, Priya, MD Surendran, Anupama, MD Loculated pleural effusion (Primary Dx); Respiratory failure, unspecified chronicity, unspecified whether with hypoxia or hypercapnia ([facility] V24, [facility] V28); Empyema ([facility] V24, [facility] V28) Discharge Disposition: Home-Health Care c from Last 3 Months Surgical History Surgery Date Site/Laterality Comments LUNG DECORTICATION 08/21/2024 Left Medical History Medical History Date Comments Empyema lung ([facility] V24, [facility] V28) 08/21/19 25 Left lung empyema Arthritis of both knees Asthma Chronic obstructive pulmonar y disease ([facility] V24, [facility] V28) Essential tremor Gallstone Gastroesophageal reflux disease Herniated lumbar intervertebral disc Hiatal hernia Hyperlipidemia Essential hypertension Chronic constipation Irritable bowel syndrome with constipation Lung nodule Obstructive sleep apnea syndrome Osteopenia Chronic superficial gastritis without bleeding Migraine with aura and witho ut status migrainosus, not intractable Metabolic syndrome X Mixed stress and urge incontinence History of skin cancer Blurry vision, bilateral Enuresis, nocturnal only Depression, recurrent ([facility] V24) Trapezius muscle spasm Influenza A Obesity, morbid ([facility] V24, [facility] V28) Pneumonia due to infectious organism Social History Tobacco Use Types Packs/Day Years [...] Sign Reading Time Taken Comments Blood Pressure 119/77 09/10/2024 2:31 PM EDT Pulse 93 09/10/2024 2:31 PM EDT Temperature 36.3 ??C (97.3 ??F) 09/10/2024 2:31 PM ED T Respiratory Rate 16 08/27/2024 7:29 AM EDT Oxygen Saturation 93% 09/10/2024 2:31 PM EDT Inhaled Oxygen Concentration - - Weight 90.4 kg (199 lb 4.8 oz) 09/10/2024 2:31 P M EDT Height 160 cm (5' 3 ) 09/10/2024 2:31 PM EDT Body Mass Index 35.3 09/10/2024 2:31 PM EDT Plan of Treatment Health Maintenance Due [...] Diagnosis Comments XR CHEST 2 VIEWS Routine 09/10/2024 2:22 PM EDT Empyema lung ([facility] V24, [facility] V28) POCT GLUCOSE BLOOD Routine 08/27/2024 11 :23 [...] AM EDT Empyema (CMS/HCC V24, CMS/HCC V28) TH AN ENDOTRACHEAL(NO CHARGE) Routine 08/21/2024 [...] EDT from Last 3 Months Results * XR Chest 2 Views (09/10/2024 2:22 PM EDT) Only the most recent of2 resultswithin the time period is included. Anatomical Region Laterality Modality Body Radiographic Jessica ging 09/10/2024 2:39 PM EDT Impressions 09/10/2024 2:40 PM EDT FINDINGS/IMPRESSION: Small left pleural effusion with associated parenchymal opacity. ??Presumed atelectasis at the right lung base. ??No pneumothorax. ??Mild degenerative osseous changes. -------- FINAL REPORT -------- Dictated By: Zulay Reed Dictated Date: 09/10/2024 14:39 ET Assigned Physician: Zulay Reed Reviewed and Electronically Signed By: Zulay Reed Signed Date: 09/10/2024 14:40 ET Workstation ID: [id number] Transcribed By: Self Edit Transcribed Date: 09/10/2024 14:39 ET Narrative 09/10/2024 2:40 PM EDT XR CHEST 2 VIEWS INDICATION: Hx of empyema with VATS decort TECHNIQUE: XR CHEST 2 VIEWS COMPARISON: No priors available. Procedure Note Zulay Reed MD - 09/10/2024 XR CHEST 2 VIEWS INDICATION: Hx of empyema with VATS decort TECHNIQUE: XR CHEST 2 VIEWS COMPARISON: No priors available. IMPRESSION: FINDINGS/IMPRESSION: Small left pleural effusion with associatedparenchymal opacity. Presumed atelectasis at the right lung base. Nopneumothorax. Mild degenerative osseous changes. -------- FINAL REPORT -------- Dictated By: Zulay Reed Dictated Date: 09/10/2024 14:39 ET Assigned Physician: Zulay Reed Reviewed and Electronically Signed By: Zulay Reed Signed Date: 09/10/2024 14:40 ET Workstation ID: [id number] Transcribed By: Self Edit Transcribed Date: 09/10/2024 14:39 ET us Jose E CAMPBELL IMG XR PROCEDURES Final Result * (ABNORMAL) POCT Glucose, blood (08/27/2024 11:23 AM EDT) Only the most recent of25 resultswithin the time period is included. [facility] Glucose POCT 119(H) 70 - 100 mg/dL 08/27/2024 11:24 AM EDT [facility] Blood Capillary blood specimen / Unknown 08/27/2024 11:23 AM EDT 08/27/2024 11:25 AM EDT Darlene Collazo MD LAB POINT OF CARE T EST DOCKED DEVICE UNSOLICITED RESULTS Final Result Performing Organization Address [facility] Co de Phone Number [facility] [address] [place] [address], [place] [phone] * SST tube (08/27/2024 6:27 AM EDT) [facility] Extra Tube Hold for add-ons. 08/27/2024 8:01 AM EDT [facility] Comment:Auto resulted. Blood Venous blood specimen / Unknown Venipuncture / Unknown 08/27/2024 6:27 AM EDT 08/27/2024 6:45 AM EDT Darlene Collazo MD LAB BLOOD ORDERABLES Final Result Performing Organization Address [facility] Co de Phone Number [facility] [address] [place] [address], * CBC - Every 3 Days (08/27/2024 6:27 AM EDT) Only the most recent of2 resultswithin the time period is included. [facility] Signature WBC 10.1 4.8 - 10.8 K/mcL LAB HEMETOLOGY METHOD 08/27/2024 7:05 AM [facility] RBC 4.20 3.80 - 4.80 M/mcL LAB HEMETOLOGY METHOD 08/27/2024 7:05 AM [facility] Hemoglobin 12.4 11.5 - 16.0 g/dL LAB HEMETOLOGY METHOD 08/27/2024 7:05 AM [facility] Hematocrit 37.3 35.0 - 47.0 % LAB HEMETOLOGY METHOD 08/27/2024 7:05 AM [facility] MCV 88.8 79.0 - 98.0 FL LAB HEMETOLOGY METHOD 08/27/2024 7:05 AM [facility] MCH 29.5 27.0 - 32.0 pcg LAB HEMETOLOGY METHOD 08/27/2024 7:05 AM [facility] MCHC 33.2 32.0 - 37.0 g/dL LAB HEMETOLOGY METHOD 08/27/2024 7:05 AM [facility] RDW 12.8 11.0 - 15.0 % LAB HEMETOLOGY METHOD 08/27/2024 7:05 AM [facility] Platelets 305 130 - 400 K/mcL LAB HEMETOLOGY METHOD 08/27/2024 7:05 AM [facility] MPV 10.7 7.0 - 11.0 FL LAB HEMETOLOGY METHOD 08/27/2024 7:05 AM [facility] NRBC 0.0 <1.0 % LAB HEMETOLOGY METHOD 08/27/2024 7:05 AM EDT [facility] NRBC Absolute 0.00 <0.10 K/mcL LAB HEMETOLOGY METHOD 08/27/2024 7:05 AM EDT [facility] Blood Venous blood specimen / Unknown Venipuncture / Unknown 08/27/2024 6:27 AM EDT 08/27/2024 6:45 AM EDT us Kelsey Cooper MD LAB BLOOD ORDERABLES Final Resul t [facility] [address] [place] [address], * XR Chest 1 View (08/27/2024 5:36 [...] Signed Date: 08/27/2024 09:05 ET Workstation ID: [id number] Transcribed By: Self Edit Transcribed Date: 08/27/2024 [...] Signed Date: 08/27/2024 09:05 ET Workstation ID: [id number] Transcribed By: Self Edit Transcribed Date: 08/27/2024 09:03 ET us Savanah Davenport APPLICATION PROCESSOR IMG XR PROCEDURES Final Res ult * ECG 12 lead (08/26/2024 1:10 PM EDT) Only the most recent of3 resultswithin the time period is included. Ventricular Rate ECG 76 BPM GEMUSE Atrial Rate 76 BPM GEMUSE P-R Interval 128 ms GEMUSE QRS Duration 132 ms GEMUSE Q-T Interval 414 ms GEMUSE QTc 465 ms GEMUSE P Wave [place] 60 degrees GEMUSE R [place] 7 degrees GEMUSE T [place] 21 degrees GEMUSE ECG Interpretation Normal sinus rhythm Right bundle branch block Abnormal ECG When compared with ECG of 23-AUG-2024 13:18, No significant change was found Confirmed by ROBERTO OROZCO ([id number]) on 08/26/2024 9:41:11 PM GEMUSE 08/26/2024 1:10 PM EDT 08/26/2024 9:41 PM EDT us Darlene Collazo MD ECG ORDERABLES Final Resul t GEMUSE * (ABNORMAL) CBC auto differential (08/24/2024 6:51 AM EDT) Only the most recent of5 resultswithin the time period is included. WBC 10.9(H) 4.8 - 10.8 K/mcL LAB HEMETOLOGY METHOD 08/24/2024 7:29 AM [facility] RBC 3.70(L) 3.80 - 4.80 M/mcL LAB HEMETOLOGY METHOD 08/24/2024 7:29 AM [facility] Hemoglobin 11.1(L) 11.5 - 16.0 g/dL LAB HEMETOLOGY METHOD 08/24/2024 7:29 AM [facility] Hematocrit 34.0(L) 35.0 - 47.0 % LAB HEMETOLOGY METHOD 08/24/2024 7:29 AM [facility] MCV 92.6 79.0 - 98.0 FL LAB HEMETOLOGY METHOD 08/24/2024 7:29 AM [facility] MCH 30.2 27.0 - 32.0 pcg LAB HEMETOLOGY METHOD 08/24/2024 7:29 AM [facility] MCHC 32.6 32.0 - 37.0 g/dL LAB HEMETOLOGY METHOD 08/24/2024 7:29 AM [facility] RDW 13.1 11.0 - 15.0 % LAB HEMETOLOGY METHOD 08/24/2024 7:29 AM [facility] Platelets 268 130 - 400 K/mcL LAB HEMETOLOGY METHOD 08/24/2024 7:29 AM [facility] MPV 11.0 7.0 - 11.0 FL LAB HEMETOLOGY METHOD 08/24/2024 7:29 AM [facility] NRBC 0.0 <1.0 % LAB HEMETOLOGY METHOD 08/24/2024 7:29 AM [facility] NRBC Absolute 0.00 <0.10 K/mcL LAB HEMETOLOGY METHOD 08/24/2024 7:29 AM [facility] Neutrophils Relative 80.3 % LAB HEMETOLOGY METHOD 08/24/2024 7:29 AM [facility] Lymphocytes Relative 10.4 % LAB HEMETOLOGY METHOD 08/24/2024 7:29 AM [facility] Monocytes Relative 8.0 % LAB HEMETOLOGY METHOD 08/24/2024 7:29 AM [facility] Eosinophils Relative 0.6 % LAB HEMETOLOGY METHOD 08/24/2024 7:29 AM [facility] Basophils Relative 0.1 % LAB HEMETOLOGY METHOD 08/24/2024 7:29 AM [facility] Immature Granulocytes Relative 0.6 % LAB HEMETOLOGY METHOD 08/24/2024 7:29 AM [facility] Neutrophils Absolute 8.71(H) 1.50 - 7.00 K/mcL LAB HEMETOLOGY METHOD 08/24/2024 7:29 AM [facility] Lymphocytes Absolute 1.13 1.00 - 5.00 K/mcL LAB HEMETOLOGY METHOD 08/24/2024 7:29 AM [facility] Monocytes Absolute 0.87 0.20 - 1.00 K/mcL LAB HEMETOLOGY METHOD 08/24/2024 7:29 AM [facility] Eosinophils Absolute 0.07 0.00 - 0.50 K/mcL LAB HEMETOLOGY METHOD 08/24/2024 7:29 AM [facility] Basophils Absolute 0.01 0.00 - 0.20 K/mcL LAB HEMETOLOGY METHOD 08/24/2024 7:29 AM [facility] Immature Granulocytes Absolute 0.06(H) 0.00 - 0.03 K/mcL LAB HEMETOLOGY METHOD 08/24/2024 7:29 AM EDT [facility] Blood Venous blood specimen / Unknown Venipuncture / Unknown 08/24/2024 6:51 AM EDT 08/24/2024 7:11 AM EDT us Kelsey Cooper MD LAB BLOOD ORDERABLES Final Resul t Performing Organization Address City/[facility]/ZIP Co de Phone Number [facility] [address] [place] [address], [place] [phone] * Magnesium (08/24/2024 6:51 AM EDT) Only the most recent of4 resultswithin the time period is included. Magnesium 2.1 1.9 - 2.6 mg/dL LAB CHEMISTRY METHOD 08/24/2024 7:58 AM EDT [facility] Blood Venous blood specimen / Unknown Venipuncture / Unknown 08/24/2024 6:51 AM EDT 08/24/2024 7:11 AM EDT us Kelsey Cooper MD LAB BLOOD ORDERABLES Final Resul t Performing Organization Address [facility] de Phone Number [facility] [address] [place] [address], [place] [phone] * (ABNORMAL) Comprehensive metabolic panel (08/24/2024 6:51 AM EDT) Only the most recent of2 resultswithin the time period is included. Sodium 141 133 - 145 mmol/L LAB CHEMISTRY METHOD 08/24/2024 8:09 AM EDT [facility] Potassium 3.9 3.5 - 5.5 mmol/L LAB CHEMISTRY METHOD 08/24/2024 8:09 AM EDT [facility] Chloride 112(H) 96 - 110 mmol/L LAB CHEMISTRY METHOD 08/24/2024 8:09 AM [facility] CO2 25 21 - 32 mmol/L LAB CHEMISTRY METHOD 08/24/2024 8:09 AM [facility] Anion Gap 4 3 - 11 LAB CHEMISTRY METHOD 08/24/2024 8:09 AM [facility] Glucose 116(H) 70 - 100 mg/dL LAB CHEMISTRY METHOD 08/24/2024 8:09 AM [facility] BUN 21 5 - 25 mg/dL LAB CHEMISTRY METHOD 08/24/2024 8:09 AM [facility] Creatinine 0.86 0.50 - 1.10 mg/dL LAB CHEMISTRY METHOD 08/24/2024 8:09 AM [facility] eGFR 71 >=60 mL/min/1. 73m2 LAB CHEMISTRY METHOD 08/24/2024 8:09 AM [facility] Comment:Calculation based on the??Chronic Kidney Disease Epidemiology Collaboration (CKD-EPI) equation refit??without adjustment for race. BUN/Creatinine Ratio 24.4 LAB CHEMISTRY METHOD 08/24/2024 8:09 AM [facility] Calcium 8.8 8.5 - 10.5 mg/dL LAB CHEMISTRY METHOD 08/24/2024 8:09 AM [facility] AST (SGOT) 18 10 - 42 unit/L LAB CHEMISTRY METHOD 08/24/2024 8:09 AM [facility] ALT (SGPT) 56 10 - 60 unit/L LAB CHEMISTRY METHOD 08/24/2024 8:09 AM [facility] Alkaline Phosphatase 72 42 - 121 unit/L LAB CHEMISTRY METHOD 08/24/2024 8:09 AM [facility] Total Protein 5.5(L) 6.0 - 8.0 g/dL LAB CHEMISTRY METHOD 08/24/2024 8:09 AM [facility] Albumin 2.6(L) 3.2 - 5.0 g/dL LAB CHEMISTRY METHOD 08/24/2024 8:09 AM [facility] Total Bilirubin 0.6 0.0 - 1.4 mg/dL LAB CHEMISTRY METHOD 08/24/2024 8:09 AM [facility] Blood Venous blood specimen / Unknown Venipuncture / Unknown 08/24/2024 6:51 AM EDT 08/24/2024 7:11 AM EDT Savanah Davenport NP LAB BLOOD ORDERABLES Final Result [facility] [address] [place] [address], * (ABNORMAL) Basic metabolic panel (08/23/2024 5:55 AM EDT) Only the most recent of3 resultswithin the time period is included. Sodium 141 133 - 145 mmol/L LAB CHEMISTRY METHOD 08/23/2024 7:07 AM [facility] Potassium 3.9 3.5 - 5.5 mmol/L LAB CHEMISTRY METHOD 08/23/2024 7:07 AM [facility] Chloride 110 96 - 110 mmol/L LAB CHEMISTRY METHOD 08/23/2024 7:07 AM [facility] CO2 26 21 - 32 mmol/L LAB CHEMISTRY METHOD 08/23/2024 7:07 AM [facility] Anion Gap 5 3 - 11 LAB CHEMISTRY METHOD 08/23/2024 7:07 AM [facility] Glucose 144(H) 70 - 100 mg/dL LAB CHEMISTRY METHOD 08/23/2024 7:07 AM [facility] BUN 25 5 - 25 mg/dL LAB CHEMISTRY METHOD 08/23/2024 7:07 AM [facility] Comment:Results verified by repeat testing Creatinine 1.27(H) 0.50 - 1.10 mg/dL LAB CHEMISTRY METHOD 08/23/2024 7:07 AM EDT [facility] eGFR 44(L) >=60 mL/min/1. 73m2 LAB CHEMISTRY METHOD 08/23/2024 7:07 AM EDT [facility] Comment:Calculation based on the??Chronic Kidney Disease Epidemiology Collaboration (CKD-EPI) equation refit??without adjustment for race. BUN/Creatinine Ratio 19.7 LAB CHEMISTRY METHOD 08/23/2024 7:07 AM EDT [facility] Calcium 8.8 8.5 - 10.5 mg/dL LAB CHEMISTRY METHOD 08/23/2024 7:07 AM EDT [facility] Blood Venous blood specimen / Unknown Venipuncture / Unknown 08/23/2024 5:55 AM EDT 08/23/2024 6:15 AM EDT Fabi CAMPBELL LAB BLOOD ORDERABLES Final Re sult [facility] [address] [place] [address], [place] [phone] * Vancomycin, trough Please draw level 1 hour prior to vancomycin administration (08/22/2024 6:53 AM EDT) [facility] Vancomycin Trough 13.0 10.0 - 20.0 mcg/mL LAB CHEMISTRY METHOD 08/22/2024 7:52 AM EDT [facility] Blood Venous blood specimen / Unknown Venipuncture / Unknown 08/22/2024 6:53 AM EDT 08/22/2024 7:11 AM EDT Mariano Coffey MD LAB BLOOD ORDERABLES Final Re sult [facility] [address] [place] [address], [place] [phone] * Concentration (08/21/2024 2:34 PM EDT) AFB Concentration Performed 025 3:05 PM EDT [facility] Tissue Structure of left pleural cavity / Unknown Non-blood Collection / Unknown 08/21/2024 2:34 PM EDT 08/21/2024 3:43 PM EDT Narrative [facility] - 08/24/2024 3:05 PM EDT Performed at: ??01 - [facility] [address] ??[id number] [employer]: Ivis Colmenares MD, Phone: ??[phone] Geraldo Gomez MD LAB BLOOD ORDERABLES Final Resul t [facility] * Acid fast bacilli stain (08/21/2024 2:34 PM EDT) AFB Stain Result No Acid fast bacilli seen on direct smear (Fuchsin method, 1000x) No Acid Fast Bacilli seen on direct smear 08/21/2024 5:53 PM EDT [facility] Tissue Structure of left pleural cavity / Unknown Non-blood Collection / Unknown 08/21/2024 2:34 PM EDT 08/21/2024 3:43 PM EDT us Geraldo Gomez MD LAB MICROBIOLOGY - GENERAL ORDER ARELY Final Result Performing Organization Address City/[facility]/ZIP Co de Phone Number [facility] [address] [place] [address], [place] [phone] * Culture tissue with gram stain (08/21/2024 11:21 AM EDT) Culture, Tissue No growth aerobically and anaerobically at 5 days. 08/26/2024 7:59 AM EDT [facility] Gram Stain Result Few Polymorphonuclear leukocytes 08/26/2024 7:59 AM EDT [facility] Gram Stain Result No organisms seen 08/26/2024 7:59 AM EDT [facility] Gram Stain Result No epithelial cells seen 08/26/2024 7:59 AM EDT [facility] Tissue Structure of left pleural cavity / Unknown 08/21/2024 11:21 AM EDT 08/21/2024 1:03 PM EDT Geraldo Gomez MD LAB MICROBIOLOGY - GENERAL ORDER ARELY Final Result Performing Organization Address City/[facility]/ZIP Co de Phone Number [facility] [address] [place] [address], [place] [phone] * Culture fungal, other (08/21/2024 11:21 AM EDT) Culture, Fungus Negative for Fungus after 4 Weeks 08/26/2024 10:28 AM EDT [facility] Tissue Structure of left pleural cavity / Unknown 08/21/2024 11:21 AM EDT 08/21/2024 1:03 PM EDT us Geraldo Gomez MD LAB MICROBIOLOGY - GENERAL ORDER ARELY Final Result Performing Organization Address City/[facility] Co de Phone Number [facility] [address] [place] [address], [place] [phone] * Tissue exam (08/21/2024 11:10 AM EDT) Final Diagnosis Pleural Cavity, Left-biopsy: -BENIGN FIBROUS PLEURAL PLAQUE 3:50 PM EDT [facility] Comment Immunohistology support the diagnosis. Keratin stains NORY and AE1-3 highlight layering of bland mesothelial cells in the plaque. MALINDA-3 is negative. 5 3:50 PM EDT [facility] Gross Description A. Pleural Cavity, Left, : Labeled left pleura . Received in formalin is a rubbery, white, elongate, 1.6 x 0.3 x 0.1 cm tissue fibromembranous portion of tissue which is wrapped in paper and submitted in toto in one cassette, one piece, multiple levels. TS 3:50 PM EDT [facility] Disclaimer The immunohistochemistry stains were medically necessary and performed because the additional information was needed by the pathologist to evaluate the mesothelial cell distribution. The immunohistochemical tests and in situ hybridization tests were developed and their performance characteristics were determined by [facility]. They have not been cleared [...] fixed and paraffin embedded. 3:50 PM EDT [facility] Tissue Structure of left pleural cavity / Unknown 08/21/2024 11:10 AM EDT 08/23/2024 7:20 AM EDT Geraldo Gomez MD LAB PATHOLOGY ORDERABLES Final R esult [facility] [address] [place] [address], * Non-gynecologic cytology (08/21/2024 11:01 AM EDT) Only the most recent of2 resultswithin the time period is included. Final Diagnosis A. Pleural fluid left-thoracentes is (ThinPrep, cell block): No malignant cells identified 08/24/2024 12:58 PM EDT [facility] Specimen A Adequacy Satisfactory for evaluation 08/24/2024 12:58 PM EDT [facility] Gross Description A. Pleural Cavity, Left, left pleural fluid: Received 5 ml of red cloudy fluid; 1 ThinPrep, 1 Cell block Cell block in formalin @0900; total formalin fixation time 12 hours. 08/24/2024 12:58 PM EDT [facility] Disclaimer Unless otherwise specified, all tissue is 10% NB formalin fixed and paraffin embedded. Technical cytopathology services provided by [facility], at [address] [place] [address] (CLIA # [id number]/Lisa Sánchez MD, Legal Librarian.) 08/24/2024 12:58 PM EDT [facility] Pleural Fluid Structure of left pleural cavity / Unknown 08/21/2024 11:01 AM EDT 08/23/2024 8:47 AM EDT us Geraldo Gomez MD LAB CYTOLOGY ORDERABLES Final Re sult [facility] [address] [place] [address], * TH AN ENDOTRACHEAL(NO CHARGE) (08/21/2024 10:17 AM EDT) Narrative Ellis Putnam CRNA - 08/21/2024 10:17 AM EDT Ellis Putnam CRNA ? 08/21/2024 10:18 AM General Information and Staff Patient location during procedure: OR Resident/MODERN DANCER: Ellis Putnam CRNA Performed: resident/MODERN DANCER/CAA Performed by: Ellis Putnam CRNA Authorized by: Jake Garcia, DO ?? Intubation Airway not difficult Urgency: [...] 08/21/2024 9:54 AMStop Time: 08/21/2024 9:58 AM Jake Garcia DO ANESTHESIA ORDERABLES Final Result * MRSA molecular study (08/21/2024 9:30 AM EDT) Only the most recent of2 resultswithin the time period is included. [facility] MRSA Screen PCR Not Detected Not Detected LAB MICROBIOLOGY METHOD 08/21/2024 11:48 AM EDT [facility] Swab Both anterior nares / Unknown Non-blood Collection / Unknown 08/21/2024 9:30 AM EDT 08/21/2024 10:07 AM EDT Kelsey Cooper MD LAB MICROBIOLOGY - GENERAL ORDER ARELY Final Result [facility] [address] [place] [address], [place] [phone] * ECG-Annotated (08/21/2024) Provider Onbase MD ECG ORDERABLES Final Result * Troponin I high sensitivity (08/20/2024 7:13 PM EDT) Only the most recent of3 resultswithin the time period is included. [facility] High Sensitivity Troponin I 8 <=54 ng/L LAB CHEMISTRY METHOD 08/20/2024 8:03 PM EDT [facility] Blood Venous blood specimen / Unknown Venipuncture / Unknown 08/20/2024 7:13 PM EDT 08/20/2024 7:31 PM EDT Narrative [facility] - 08/20/2024 8:03 PM EDT High levels of biotin in samples may falsely decrease hsTroponin values. ??Use caution when interpreting hsTroponin results in patients taking biotin who exhibit renal impairment (eGFR <60) or in patients taking more than 20 mg/day of biotin. Adri CAMPBELL LAB BLOOD ORDERABLES Final Re sult Performing Organization Address [facility] Co de Phone Number [facility] [address] [place] [address], * ECG 12 lead - Procedural (No Charge) (08/20/2024 7:07 PM EDT) Ventricular Rate ECG 66 BPM GEMUSE Atrial Rate 66 BPM GEMUSE P-R Interval 154 ms GEMUSE QRS Duration 146 ms GEMUSE Q-T Interval 440 ms GEMUSE QTc 461 ms GEMUSE P Wave [place] 38 degrees GEMUSE R [place] 0 degrees GEMUSE T [place] 21 degrees GEMUSE ECG Interpretation Normal sinus rhythm Right bundle branch block Abnormal ECG When compared with ECG of 20-AUG-2024 11:50, (unconfirmed) No significant change was found Confirmed by BALTA PEOPLES ([id number]) on 08/21/2024 11:30:30 AM GEMUSE 08/20/2024 7:07 PM EDT 08/21/2024 11:30 AM EDT Mariano Coffey MD ECG ORDERABLES Final Result Performing Organization Address [facility] Co de Phone Number GEMUSE * Type and screen (08/20/2024 7:05 PM EDT) Pathologist [facility] O 08/20/2024 8:27 PM EDT [facility] Rh Type Positive 08/20/2024 8:27 PM EDT [facility] Antibody Screen Negative 08/20/2024 8:27 PM EDT [facility] Blood Venous blood specimen / Unknown Venipuncture / Unknown 08/20/2024 7:05 PM EDT 08/20/2024 7:32 PM EDT us Jose E CAMPBELL LAB BLOOD BANK TEST NATHALIE TYLER Final Result [facility] [address] [place] [address], [place] [phone] * IR Pleural Drain Insert Cath w [...] Signed Date: 08/20/2024 18:03 ET Workstation ID: [id number] Transcribed By: Self Edit Transcribed Date: 08/20/2024 [...] Signed Date: 08/20/2024 18:03 ET Workstation ID: [id number] Transcribed By: Self Edit Transcribed Date: 08/20/2024 18:00 ET us Jose E CAMPBELL IMG IR PROCEDURES Final Result * Cell count with reflex differential, body fluid (08/20/2024 6:03 PM EDT) Body Fluid Total Nucleated Cells 8,107 /mm3 LAB HEMETOLOGY METHOD 08/20/2024 7:55 PM EDT [facility] Body Fluid RBC 6,000 /mm3 LAB HEMETOLOGY METHOD 08/20/2024 7:55 PM EDT [facility] Body Fluid Color Erika 08/20/2024 7:55 PM EDT [facility] Body Fluid Clarity Cloudy 08/20/2024 7:55 PM EDT [facility] Body Fluid Source Pleural 08/20/2024 7:55 PM EDT [facility] Pleural Fluid Structure of left pleural cavity / Unknown Non-blood Collection / Unknown 08/20/2024 6:03 PM EDT 08/20/2024 6:31 PM EDT Narrative [facility] - 08/20/2024 7:55 PM EDT No reference ranges have been established for body fluids. Clinical correlation recommended. Jose E CAMPBELL LAB BODY FLUIDS AND STOO LS ORDERABLES Final Result [facility] [address] [place] [address], [place] [phone] * (ABNORMAL) Culture body fluid with gram stain (08/20/2024 6:03 PM EDT) Fluid Culture No growth at 3 days LAB MICROBIOLOGY METHOD 08/23/2024 10:54 AM EDT [facility] Gram Stain Result Many Polymorphonuclear leukocytes(A) 08/23/2024 10:54 AM EDT [facility] Gram Stain Result No Epithelial cells(A) 08/23/2024 10:54 AM EDT [facility] Gram Stain Result Few Gram positive cocci in pairs and clusters(A) 08/23/2024 10:54 AM EDT [facility] Pleural Fluid Structure of left pleural cavity / Unknown Non-blood Collection / Unknown 08/20/2024 6:03 PM EDT 08/20/2024 6:30 PM EDT Jose E CAMPBELL LAB MICROBIOLOGY - GENER AL ORDERABLES Final Result Performing Organization Address [facility]/ZIP Co de Phone Number [facility] [address] [place] [address], [place] [phone] * Differential body fluid (08/20/2024 6:03 PM EDT) Fluid Neutrophils % 2 % 08/20/2024 7:55 PM EDT [facility] Fluid Lymphocytes % 30 % 08/20/2024 7:55 PM EDT [facility] Fluid Monocytes/Macrop hages 4 % 08/20/2024 7:55 PM EDT [facility] Fluid Eosinophils % 61 % 08/20/2024 7:55 PM EDT [facility] Fluid Basophils % 3 % 08/20/2024 7:55 PM EDT [facility] Fluid Other Cells % 0 % 08/20/2024 7:55 PM EDT [facility] Pleural Fluid Structure of left pleural cavity / Unknown Non-blood Collection / Unknown 08/20/2024 6:03 PM EDT 08/20/2024 6:31 PM EDT Narrative [facility] - 08/20/2024 7:55 PM EDT No reference ranges have been established for body fluids. Clinical correlation recommended. Jose E CAMPBELL LAB BODY FLUIDS AND STOO LS ORDERABLES Final Result Performing Organization Address [facility]/ZIP Co de Phone Number [facility] [address] [place] [address], [place] [phone] * Protein, body fluid (08/20/2024 6:03 PM EDT) Protein, Fluid 5.2 See Comment g/dL LAB CHEMISTRY METHOD 08/20/2024 7:26 PM EDT [facility] Pleural Fluid Structure of left pleural cavity / Unknown Non-blood Collection / Unknown 08/20/2024 6:03 PM EDT 08/20/2024 6:31 PM EDT [facility] - 08/20/2024 7:26 PM EDT No reference ranges have been established for body fluids. Clinical correlation recommended. us Jose E CAMPBELL LAB BODY FLUIDS AND STOO LS ORDERABLES Final Result Performing Organization Address [facility] Co de Phone Number [facility] [address] [place] [address], [place] [phone] * Lactate dehydrogenase, body fluid (08/20/2024 6:03 PM EDT) LD, Fluid 266 See Comment unit/L LAB CHEMISTRY METHOD 08/20/2024 7:26 PM EDT [facility] Pleural Fluid Structure of left pleural cavity / Unknown Non-blood Collection / Unknown 08/20/2024 6:03 PM EDT 08/20/2024 6:31 PM EDT [facility] - 08/20/2024 7:26 PM EDT No reference ranges have been established for body fluids. Clinical correlation recommended. us Jose E CAMPBELL LAB BODY FLUIDS AND STOO LS ORDERABLES Final Result Performing Organization Address [facility] Co de Phone Number [facility] [address] [place] [address], [place] [phone] * Glucose, body fluid (08/20/2024 6:03 PM EDT) Glucose, Fluid 108 See Comment mg/dL LAB CHEMISTRY METHOD 08/20/2024 7:26 PM EDT [facility] Pleural Fluid Structure of left pleural cavity / Unknown Non-blood Collection / Unknown 08/20/2024 6:03 PM EDT 08/20/2024 6:31 PM EDT [facility]ative [facility] - 08/20/2024 7:26 PM EDT No reference ranges have been established for body fluids. Clinical correlation recommended. us Jose E CAMPBELL LAB BODY FLUIDS AND STOO LS ORDERABLES Final Result [facility] [address] [place] [address], * CT Chest w Contrast (08/20/2024 2:13 [...] Signed Date: 08/20/2024 14:50 ET Workstation ID: [id number] Transcribed By: Self Edit Transcribed Date: 08/20/2024 [...] Signed Date: 08/20/2024 14:50 ET Workstation ID: [id number] Transcribed By: Self Edit Transcribed Date: 08/20/2024 14:35 ET us Yessy Cosme DO IMG CT PROCEDURES Final R esult * Blood culture (08/20/2024 1:53 PM EDT) Only the most recent of2 resultswithin the time period is included. Culture, Blood No growth at 5 days 08/25/2024 3:01 PM EDT [facility] Blood Venous blood specimen / Unknown Venipuncture / Unknown 08/20/2024 1:53 PM EDT 08/20/2024 2:03 PM EDT us Yessy Cosme DO LAB MICROBIOLOGY - GENERA L ORDERABLES Final Result [facility] [address] [place] [address], [place] [phone] * (ABNORMAL) D-dimer, quantitative (08/20/2024 1:53 PM EDT) Pathologist [facility] D-Dimer, Quant (D-DU) 516(H) <=230 ng/mL DDU LAB COAGULATION METHOD 08/20/2024 2:18 PM EDT [facility] Blood Venous blood specimen / Unknown Venipuncture / Unknown 08/20/2024 1:53 PM EDT 08/20/2024 2:02 PM EDT Narrative [facility] - 08/20/2024 2:18 PM EDT D-Dimer <230 ng/mL (D-Dimer units) is the threshold for exclusion of DVT/PE. D-Dimer may be elevated in: Critically ill, severely infected, trauma patients, DIC, acute CVA, acute [place], unstable angina, AF, old age, , and smoking. D-Dimer may be decreased with: Initiation of heparin therapy and oral anticoagulants. [employer] LAB BLOOD ORDERABLES Veronica l Result Performing Organization Address City/[facility]/ZIP Co de Phone Number [facility] [address] [place] [address], [place] [phone] * Lactate (08/20/2024 1:53 PM EDT) [facility] Lactate 0.9 0.4 - 2.0 mmol/L LAB CHEMISTRY METHOD 08/20/2024 2:39 PM EDT [facility] Blood Venous blood specimen / Unknown Venipuncture / Unknown 08/20/2024 1:53 PM EDT 08/20/2024 2:02 PM EDT Yessy Yost [employer] LAB BLOOD ORDERABLES Veronica l Result Performing Organization Address [facility]/ZIP Co de Phone Number [facility] [address] [place] [address], [place] [phone] * (ABNORMAL) Manual differential (08/20/2024 12:11 PM EDT) Neutrophils % 68.0 % LAB HEMETOLOGY METHOD 08/20[facility]2024 [facility] Lymphocytes % 6.0 % LAB HEMETOLOGY METHOD 08/20/2024 1:[facility] Reactive Lymphocyte 2.00 % LAB HEMETOLOGY METHOD 08/20/2024 1:08 PM [facility] Monocytes % 5.0 % LAB HEMETOLOGY METHOD 08/20/2024 1:08 PM [facility] Eosinophils % 20.0 % LAB HEMETOLOGY METHOD 08/20/2024 1:08 PM [facility] Basophils % 0.0 % LAB HEMETOLOGY METHOD 08/20/2024 1:08 PM [facility] Neutrophils Absolute Manual 8.98(H) 1.50 - 7.00 K/mcL LAB HEMETOLOGY METHOD 08/20/2024 1:08 PM [facility] Lymphocytes Absolute 0.79(L) 1.00 - 5.00 K/mcL LAB HEMETOLOGY METHOD 08/20/2024 1:08 PM [facility] Reactive Lymph Abs Manual 0.26(H) 0.00 - 0.00 lym LAB HEMETOLOGY METHOD 08/20/2024 1:08 PM [facility] Monocytes Absolute Manual 0.66 0.20 - 1.00 K/mcL LAB HEMETOLOGY METHOD 08/20/2024 1:08 PM [facility] Eosinophils Absolute Manual 2.64(H) 0.00 - 0.50 K/mcL LAB HEMETOLOGY METHOD 08/20/2024 1:08 PM [facility] Basophils Absolute Manual 0.00 0.00 - 0.20 K/mcL LAB HEMETOLOGY METHOD 08/20/2024 1:08 PM EDT [facility] Rbc Morphology Consistent with indices Consistent with indices, Normal for LAB HEMETOLOGY METHOD 08/20/2024 1:08 PM EDT [facility] Platelet Morphology - WAM See Note(A) Normal LAB HEMETOLOGY METHOD 08/20/2024 1:08 PM EDT [facility] Comment:PLT: Normal Blood Venous blood specimen / Unknown Venipuncture / Unknown 08/20/2024 12:11 PM EDT 08/20/2024 12:31 PM EDT Chase Preston MD LAB BLOOD ORDERABLES Final Result Performing Organization Address [facility]/ZIP Co de Phone Number [facility] [address] [place] [address], [place] [phone] * B-type natriuretic peptide (08/20/2024 12:11 PM EDT) Pathologist [facility] BNP 4 <=100 pcg/mL LAB CHEMISTRY METHOD 08/20/2024 1:25 PM EDT [facility] Blood Venous blood specimen / Unknown Venipuncture / Unknown 08/20/2024 12:11 PM EDT 08/20/2024 12:31 PM EDT Chase Preston MD LAB BLOOD ORDERABLES Final Result [facility] [address] [place] [address], [place] [phone] * (ABNORMAL) Lipase (08/20/2024 12:11 PM EDT) Lipase 98(H) 13 - 75 unit/L LAB CHEMISTRY METHOD 08/20/2024 1:12 PM EDT [facility] Blood Venous blood specimen / Unknown Venipuncture / Unknown 08/20/2024 12:11 PM EDT 08/20/2024 12:31 PM EDT us Chase Preston MD LAB BLOOD ORDERABLES Final Result [facility] [address] [place] [address], [place] [phone] from Last 3 Months Insurance [facility] [employer] Member Subscriber Plan / Payer (Ef fective 2023-Present) Name:Margarita Zamora Relation to Subscriber:Self Name:Margarita Zamora Payer ID:[id number] Group ID:Not on file Type:Not on file Address: [place] [address] [address] [phone] Advance Directives * Full Code - Confirmed [...] currently active code status orders. Care Teams Manager Internal Relationship Specialty Start Date End Date Mary Flores MD [address] [place] [address] PCP - General Lab Pack Chemist 08/25/24
--- OUTSIDE RECORDS SUMMARY | 2024-09-24 13:44 | XMS_ITS ---
Author Name Sonya Gallagher NP Address [address] [place] [address] Phone [phone] [facility] Care Team Providers Care Hinging Machine Operator Name Role Phone Sonya Gallagher Unavailable [phone] NATALY CRANDALL Unavailable [phone] Bret Bonner Unavailable [phone] Deanna Casillas Unavailable [phone] CALEB RAMON Unavailable [phone] EDWARD REBOLLEDO Unavailable [phone] Reason for Referral Not Available Allergies, adverse [...] 290 MCG Cap TAKE 1 CAPSULE BY [facility] EVERY MORNING 2021-10-25 No Data Available Albuterol Sulfate HFA 108 (9 0 Base) MCG/ACT Aerosol Solution INHALE 2 PUFFS BY MOUTH EVERY 4 TO 6 HOURS NEEDED 2021-05-30 No Data Available Amitriptyline 100 mg Tab TAKE 1 TABLET B Y MOUTH AT BEDTIME 2021-10-09 No Data Available Creon [id number] UNIT Cap delayed rel TAKE 1 CAPSULE BY MOUTH FOUR TIMES DAILY, WITH MEALS OR SNACKS AND AT BEDTIME 2021-11-08 No Data Available Cyclobenzaprine 10 mg Tab TAKE 1 TABLET BY MOUTH AT BEDTIME 2021-10-09 No Data Available Daliresp 500 MCG Tab TAKE 1 TABLET BY [facility] EVERY DAY 2021-05-30 No Data Available [...] Available Vitamin D (Ergocalciferol) 1 .25 mg (25888 UT) Cap TAKE 1 CAPSULE BY MOUTH [...] (do not use for phone, instead use 85243-88) [facility] ([place]) 04/08/2022 Hypertensive heart disease w ith heart failureHeart failure, unspecifiedUnspecified asthma, uncomplicatedChronic obstructive pulmonary disease, unspecifiedRheumatoid arthritis, unspecifiedHyperlipidemia, unspecifiedDepression, unspecified New patient,40-59min; chronic exacerbation, 2 stable chronic or 1 acute illness add add modifier 95 for video (do not use for phone, instead use 22333-59) [facility], ([place]) 04/08/2022 New patient,40-59min; chronic exacerbation, 2 stable chronic or 1 acute illness add add modifier 95 for video (do not use for phone, instead use 66062-89) [facility] [place] 04/08/2022 New patient,40-59min; chronic exacerbation, 2 stable chronic or 1 acute illness add add modifier 95 for video (do not use for phone, instead use 94158-66) [facility], ([place] 04/08/2022 New patient,40-59min; chronic exacerbation, 2 stable chronic or 1 acute illness add add modifier 95 for video (do not use for phone, instead use 10760-46) [facility], [place] 04/08/2022 New patient,40-59min; chronic exacerbation, 2 stable chronic or 1 acute illness add add modifier 95 for video (do not use for phone, instead use 65419-84) [facility] ([place] 04/08/2022 New patient,40-59min; chronic exacerbation, 2 stable chronic or 1 acute illness add add modifier 95 for video (do not use for phone, instead use 65251-41) [facility] ([place] 04/08/2022 New patient,40-59min; chronic exacerbation, 2 stable chronic or 1 acute illness add add modifier 95 for video (do not use for phone, instead use 04790-28) [facility], ([place]) 04/08/2022 New patient,40-59min; chronic exacerbation, 2 stable chronic or 1 acute illness add add modifier 95 for video (do not use for phone, instead use 47928-56) [facility], ([place]) 04/08/2022 Estab. patient 20-29min; 1 stable chronic or 2 minor; add add modifier 95 for video, modifier 93 for phone [facility] [place]) 05/09/2022 Hypertensive heart disease w ith [...] tive Time Current Smoking Status Never smoker 2024-09-09 5 Sex Female History of Procedures Procedures Service Procedure code Service date Servicing provider Phone# New patient,40-59min; chronic exacerbation, 2 stable chronic or 1 acute illness add add modifier 95 for video (do not use for phone, instead use 96048-44) [id number] 2022-04-09 No Data Available No Data Availa [...] 95 for video, modifier 93 for phone [id number] 2022-05-09 No Data Available No Data Availa ble Functional Status Functional Category Effective Dates ambulates with cane or walke r; independant with ADL but needs help w bath/shower 2022-04-08 Mental Status Status Date alert and oriented x 3 2022-04-08 Assessments Date of Service Assessments 2022-04-08 16:01:57 Congestive heart lisest lureHypertensionAsthmaCOPD (chronic obstructive pulmonary disease)Rheumatoid arthritisDyslipidemiaDepression 2022-05-09 [...] using a udio and video over the [employer] tablet. Time spent in visit: 20 minutesToday, patient has chief complaint of: monitoring of chronic conditions 2022-05-09 Most recent hospital stay(s) or ER visit(s) and precipitating factors: denies 2022-05-09 Open HEDIS Measure falguni carbajal: done
== END 2024-09-24 13:41 | disposition home or self-care (01) ==
LOC: HO.HHCX 13:40
PROVIDERS: PCP General Practice; Visit Provider General Practice
DX: Z98.890 Other specified postprocedural states (principal)
CPT/HCPCS: 71046

== ENCOUNTER → 2024-09-24 13:43 | Outpatient (BNV) | payer OTHER, SELFPAY | PROVIDERS: PCP General Practice; Visit Provider Radiology Diagnostic Radiology | DX: J90 Pleural effusion, not elsewhere classified (principal) | CPT/HCPCS: 71046 ==

== ENCOUNTER 2024-10-05 12:27 | Outpatient (REF) | payer OTHER, SELFPAY ==
--- NOTE | ~2024-10-05 | CT_ITS ---
CLINICAL HISTORY: pneumonia CT chest without contrast Comparison: CT/CA/SR - CT ANGIO CHEST PE PROTOCOL - 08/15/24 14:44 EDT Findings: There is mild coronary artery calcification. The visualized thyroid and mediastinum are unremarkable. There is a small left pleural effusion with adjacent airspace opacification most compatible with passive atelectasis. Pneumonia is not excluded similar findings are seen previously. The visualized upper abdomen is unremarkable. The bones are intact. IMPRESSION: There is a small left pleural effusion with adjacent airspace opacification most compatible with passive atelectasis. Pneumonia is not excluded similar findings are seen previously. This document has been electronically signed by: Jose Hull MD on 10/07/2024 13:13:17
--- OUTSIDE RECORDS SUMMARY | 2024-10-05 12:35 | XMS_ITS | Encounter Summary ---
Author Organization [facility] Address [address] [place] [address] [address] [place] [address] Care Team Providers Care Sales Account Specialist Name Role Phone Mary Flores MD Primary Care Provider Reason for Visit * Reason Comments Med Refill Encounter Details Date Type Department Care Team (Late st Contact Info) Description 08/15/2022 Refill [facility] [address] [place], [place] [phone] Keri Ochoa MD [address] [place] [address] Social History Tobacco Use Types Packs/Day Years [...] on filedocumented in this encounter Care Teams Sales Account Specialist Relationship Specialty Start Date End Date Mary Flores MD [address] [place] [phone] PCP - General Family Medicine 8/27/22 [facility] 08/29/24 documented as of this encounter
== END 2024-10-05 12:28 | disposition home or self-care (01) ==
LOC: HO.CT 12:27
PROVIDERS: PCP General Practice; Visit Provider Internal Medicine
DX: J18.9 Pneumonia, unspecified organism (principal)
CPT/HCPCS: 71250

== ENCOUNTER → 2024-10-05 12:30 | Outpatient (BNV) | payer OTHER, SELFPAY | PROVIDERS: PCP General Practice; Visit Provider Radiology Diagnostic Radiology | DX: J90 Pleural effusion, not elsewhere classified (principal) | CPT/HCPCS: 71250 ==

== ENCOUNTER 2024-10-28 11:35 | Outpatient (AMB) | payer OTHER, SELFPAY ==
--- NOTE | 2024-10-28 11:45 | MHC.OFFVIS ---
Vital Signs 10/28/24 12:20 Height 5 ft 3 in BMI Reason not done Patient refused/unable Pulse 74 Pulse Source Pulse Oximeter Pulse Oximetry (%) 94 Oxygen Delivery Method Room Air Intake Visit Reasons: [place] recall r/s 09/09/24 Intake Note: Est pt for mgmt of GERD + CIC. CC; Sx and concerns were only reviewed with Nurse Practitioner per time constraints of Adult Education Teacher Services. Adult Education Teacher Required: Yes Adult Education Teacher Services: Adult Education Teacher Present Adult Education Teacher Name: [facility] Information Interpreted: clinical only Accompanied by: Family/Other Allergies morphine (MORPHINE) Allergy (Intermediate, Verified 08/20/24 10:21) NAUSEA, rash, redness HPI HPI [place] recall r/s 09/09/24: Details: Assessment & Plan (1) GERD (gastroesophageal reflux disease): Code(s): K21.9 - Gastro-esophageal reflux disease without esophagitis Category: Medical Qualifiers: Esophagitis presence: without esophagitis Qualified Code(s): K21.9 - Gastro-esophageal reflux disease without esophagitis (2) Chronic idiopathic constipation: Code(s): K59.04 - Chronic idiopathic constipation Category: Medical (3) Tubular adenoma of colon: Comment: 3 small removed in 2017, 1 large removed 2020 repeat 3 years Code(s): D12.6 - Benign neoplasm of colon, unspecified Category: Medical (4) Spasm of bowel: Code(s): K58.9 - Irritable bowel syndrome without diarrhea Category: Medical (5) Chronic pain syndrome: Code(s): G89.4 - Chronic pain syndrome Category: Medical Plan DIVEHI #Karishma Varner and Rabia With the addition of 2 bisacodyl in the evening and 1 in the morning along with her Linzess 290 she is now moving her bowels well. She is happy with this and feels that this is a good part of her regimen. She also continues on her imipramine 100 mg at bedtime, omeprazole 20 mg, and doctor sit 100 mg twice a day with food. The imipramine is for both her chronic pain syndrome and her irritable bowel in the past she was on amitriptyline as well so we have combined this until 1 tricyclic antidepressant. Return office visit in 3 months Medications: Changed From bisacodyl 2 tabs qhs adn 1 tab qam orally bedtime; 30 days 90 tabs 6RF To bisacodyl (Dulcolax (bisacodyl)) 2 tabs qhs adn 1 tab qam orally bedtime; 90 tabs 6RF 30 days From imipramine HCl PO G89.4 - Chronic pain syndrome, K58.9 - Irritable bowel syndrome without diarrhea To imipramine HCl 100 mg (2 x 50 mg) PO BEDTIME 60 tabs 6RF G89.4 - Chronic pain syndrome, K58.9 - Irritable bowel syndrome without diarrhea Refilled linaclotide (Linzess) 290 mcg PO QAM 30 caps 6RF K59.04 - Chronic idiopathic constipation [id number]-mciooruf-gcozykk 24,000-76,000 -120,000 unit (Creon) administer with meals and/or snacks 1 cap PO QIDACHS 120 caps 6RF 30 days K82.8 - Other specified diseases of gallbladder docusate sodium 100 mg PO .BID WITH FOOD 60 caps 6RF 30 days K59.04 - Chronic idiopathic constipation CORRESPONDENCE he chest tube was not effective so therefore she underwent a decortication of the left hemithorax. On 09/09/24 @ 11:36 Margaret eRynolds Wrote To Kev,August (2) Patient called today canceling 09/09/24 because pt had lung surgery recently. Pt was rescheduled for October 2024. TODAYS VISIT [place] #[employer] She is still having quite a bit of pain and a feeling of inflammation in her chest area after her surgery. I explained to her that this will probably slowly improve but it takes quite a long time because there a lot of sensitive organs in this area. I imagine that it must be somewhat similar to patient's did undergo procedures like a CABG with a have quite a bit of unfamiliar feelings and discomfort that slowly improves over a great deal of time. She continues on 2 bisacodyl in the evening and 1 in the morning along with her Linzess 290 she is now moving her bowels well. She is happy with this and feels that this is a good part of her regimen. She also continues on her imipramine 100 mg at bedtime, omeprazole 20 mg, and doctor sit 100 mg twice a day with food. We need to check with Dr. Bonner re: colonoscopy or wait. ROV 6 mos. 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 Sacroiliitis Disc degeneration, lumbar OTILIO (obstructive sleep apnea) Back pain HTN (hypertension) Skin cancer (melanoma) GERD (gastroesophageal reflux disease) Depression OTILIO (obstructive sleep apnea) Kidney stones Pulmonary nodule Severe asthma Primary osteoarthritis involving multiple joints Pneumonia Chronic allergic rhinitis (~03/09/20) Asthma-COPD overlap syndrome Surgical History History of bronchoscopy History of cystoscopy History of laparoscopic appendectomy History of nasal surgery Hx of section Hx of tubal ligation Hx of colonoscopy History of esophagogastroduodenoscopy (EGD) Hx of knee surgery Family History Father No problems noted. Mother No problems noted. Social History Household Members: Children Housing: Apartment Do you presently have visiting nurse or other home services: Yes (private home health aid) Alcohol intake: never Patient Tobacco Use Status: Never used Tobacco e-Cigarette/Vaping Use: Never Used Second Hand Smoke Exposure: No Advance Directives Date on File: 10/13/23 service: No Current occupational status: disabled Current occupation: rt handed Review of Systems Const Denies fatigue, Denies fever(s), Denies night sweats, Denies poor appetite and Denies weight loss ENT Reports Normal hearing present, Denies dental pain, Denies dysphagia, Denies hearing loss, Denies mouth pain, Denies odynophagia, Denies throat swelling, Denies tongue swelling and Reports other (Dentition adequate) Card Reports no additional complaints Resp Reports no additional complaints GI Details: Denies abdominal pain, Denies melena, Reports bloating, Denies hematochezia, Reports constipation, Denies GI cramping, Denies dysphagia, Denies excessive flatus, Denies early satiety, Reports heartburn, Denies diarrhea, Denies nausea, Denies odynophagia, Denies vomiting and Denies hematemesis Skin/Breast Denies pruritus, Denies lesions, Denies rash and Denies jaundice Neuro Reports Normal hearing present and Denies Abnormal speech present Endo Denies fatigue Aller/Immun Denies throat swelling and Denies tongue swelling Physical Exam Const General: cooperative, no acute distress, well developed and well groomed Nutritional Appearance: well nourished and obese Orientation/consciousness: oriented to person, oriented to place and oriented to time Limitations: language barrier HEENT Head: Yes normocephalic and Yes atraumatic Eyes General: appearance normal, both eyes and all related structures Pupils: Equal, round and reactive pupils present Neck Neck: Yes normal visual inspection and Yes no lymphadenopathy Thyroid: Thyroid normal Resp Effort & Inspection: normal respiratory effort and able to speak in complete sentences Auscultation: clear to auscultation bilaterally Cardio Rate: regular rate Rhythm: regular rhythm Heart sounds: Normal, physiologic split S2 sound present Peripheral pulses: radial pulses present and posterior tibial pulses present GI Inspection: No distended, No Abdominal panniculus present and Yes obesity Palpation (GI): Soft to palpation, nontender, no guarding, not rigid and No hepatosplenomegaly present Percussion: Yes normal to percussion Auscultation: normal bowel sounds Rectal Exam - Female: deferred Skin General skin exam: no rashes or lesions noted, turgor normal, skin not dry, no jaundice, No spider nevi and no striae Rashes: no rashes Nails: normal Neuro General: oriented to person, oriented to place and oriented to time Cranial nerves: Yes Equal, round and reactive pupils present and Yes Normal hearing present Speech: No Abnormal speech present Extrem General: Yes normal to inspection, No clubbing, No cyanosis and No edema Psych Appearance: grossly normal and well kempt Mental Status: mental status grossly normal Speech and movement: Normal speech and movement present Affect: normal affect Attitude: cooperative Thought process: Normal thought process present and not confabulating Thought content: Normal thought content present Insight: Limited insight present (Psych) Judgement: Limited judgement present (Psych) Assessment & Plan Assessment & Plan (1) GERD (gastroesophageal reflux disease): Code(s): K21.9 - Gastro-esophageal reflux disease without esophagitis Category: Medical Qualifiers: Esophagitis presence: without esophagitis Qualified Code(s): K21.9 - Gastro-esophageal reflux disease without esophagitis (2) Biliary dyskinesia: Code(s): K82.8 - Other specified diseases of gallbladder Category: Medical (3) Gallstones: Code(s): K80.20 - Calculus of gallbladder without cholecystitis without obstruction Category: Medical (4) Chronic idiopathic constipation: Code(s): K59.04 - Chronic idiopathic constipation Category: Medical (5) Tubular adenoma of colon: Comment: 3 small removed in 2017, 1 large removed 2020 repeat 3 years Code(s): D12.6 - Benign neoplasm of colon, unspecified Category: Medical Plan [place]ali #[employer] She is still having quite a bit of pain and a feeling of inflammation in her chest area after her surgery. I explained to her that this will probably slowly improve but it takes quite a long time because there a lot of sensitive organs in this area. I imagine that it must be somewhat similar to patient's did undergo procedures like a CABG with a have quite a bit of unfamiliar feelings and discomfort that slowly improves over a great deal of time. She continues on 2 bisacodyl in the evening and 1 in the morning along with her Linzess 290 she is now moving her bowels well. She is happy with this and feels that this is a good part of her regimen. She also continues on her imipramine 100 mg at bedtime, omeprazole 20 mg, and doctor sit 100 mg twice a day with food. We need to check with Dr. Bonner re: colonoscopy or wait. ROV 6 mos. Medications: New docusate sodium 100 mg PO BIDWM 60 caps 6RF linaclotide (Linzess) 290 mcg PO DAILY 30 caps 6RF omeprazole 20 mg PO DAILY@0630 30 caps 6RF Refilled imipramine HCl 100 mg (2 x 50 mg) PO BEDTIME 60 tabs 6RF G89.4 - Chronic pain syndrome, K58.9 - Irritable bowel syndrome, unspecified hebaef-cxkphsxg-hofvwar 24,000-76,000 -120,000 unit (Creon) administer with meals and/or snacks 1 cap PO QIDACHS 120 caps 6RF 30 days K82.8 - Other specified diseases of gallbladder Discontinued doxycycline hyclate END DATE: 08/15/24@2100 Discontinued Reason: Patient Completed Course 100 mg PO BID 10 days 20 caps 0RF doxycycline monohydrate Discontinued Reason: Patient Completed Course 100 mg PO BID 14 days 28 tabs 0RF Coding Level of Care Code Est Pt Level 3 (74345) Diagnoses Gastroesophageal reflux disease without esophagitis K21.9 Esophagitis presence: without esophagitis Biliary dyskinesia K82.8 Gallstones K80.20 Chronic idiopathic constipation K59.04 Tubular adenoma of colon D12.6
[2024-10-28 12:20] VITALS: PULSE 74; O2SAT 94
--- OUTSIDE RECORDS SUMMARY | 2024-10-28 13:07 | XMS_ITS | Encounter Summary ---
Author Organization [facility] Address [address] [place] [address] [address] [place] [address] Care Team Providers Care Laminating Machine Offbearer Name Role Phone Mary Flores MD Primary Care Provider [phone] Reason for Visit * Reason Comments Med Refill Encounter Details Date Type Department Care Team (Late st Contact Info) Description 08/15/2022 Refill [facility] [address] [place], [place] [phone] Keri Ochoa MD [address] [place] [address] Social History Tobacco Use Types Packs/Day Years [...] on filedocumented in this encounter Care Teams Laminating Machine Offbearer Relationship Specialty Start Date End Date Mary Flores MD [address] [place] [phone] PCP - General Family Medicine 8/27/22 [facility] 08/29/24 documented as of this encounter
== END 2024-10-28 12:35 | disposition home or self-care (01) ==
LOC: HO.HGI 11:35
PROVIDERS: PCP General Practice; Visit Provider Nurse Practitioner
DX: K21.9 Gastro-esophageal reflux disease without esophagitis (principal); K82.8 Other specified diseases of gallbladder; K80.20 Calculus of gallbladder without cholecystitis without obstruction; K59.04 Chronic idiopathic constipation; D12.6 Benign neoplasm of colon, unspecified
CPT/HCPCS: 99213

== ENCOUNTER → 2024-10-28 11:35 | Outpatient (BNVA) | payer OTHER, SELFPAY | PROVIDERS: PCP General Practice; Visit Provider Nurse Practitioner | DX: K21.9 Gastro-esophageal reflux disease without esophagitis (principal); K59.04 Chronic idiopathic constipation; K82.8 Other specified diseases of gallbladder; K80.20 Calculus of gallbladder without cholecystitis without obstruction; D12.6 Benign neoplasm of colon, unspecified | CPT/HCPCS: 99212 ==

== ENCOUNTER 2024-11-04 10:13 | Outpatient (AMB) | payer OTHER, SELFPAY ==
[2024-11-04 10:21] VITALS: BP 140/80; PULSE 83; O2SAT 95; BMI 35.7
--- NOTE | 2024-11-04 10:21 | MHC.OFFVIS ---
Vital Signs 11/04/24 10:21 Height 5 ft 3 in Weight 201 lb 11.567 oz BMI 35.7 BP 140/80 H Blood Pressure Location Lt brachial Position Sitting Pulse 83 Pulse Source Pulse Oximeter Pulse Oximetry (%) 95 Oxygen Delivery Method Room Air Intake Visit Reasons: D/C Tyesha pt requested sooner appt. Allergies morphine (MORPHINE) Allergy (Intermediate, Verified 11/04/24 10:23) NAUSEA, rash, redness HPI Comments Details: The patient is a 74-year-old woman known asthma. Recently had a CT scan of the abdomen demonstrating hiatal hernia as well. She continues to be on her respiratory regimen which includes Trelegy and also budesonide nebs and albuterol nebs. She had also takes her allergy medicine including singular. Recently she could not find her singular medication nguyen and she has noticed that her respiratory symptoms are getting worse. The patient also has cough. Moderate severity. Tends to be dry. We did talk about the reflux diet. Is going to try to follow it closely. She was slow to improve had a CT scan done again demonstrating airspace disease in the left base. She did undergo bronchoscopy with significant mucus burden status post therapeutic bronchoscopy. 07/15/2023 the patient is here for a pulmonary follow-up visit. Patient overall has been feeling a little bit worse from her asthma. She has been sometime in [place] her asthma was good. However when she made back to this state she started developing again to tightness and wheezing. unfortunately, her nebulizer fell and broke and is no longer working. She needs have a functional nebulizer in view of her severe persistent asthma. will go ahead and order a new nebulizer replacement for the patient at this time. In the meantime she has been having hard time with her CPAP because she has not been getting supplies. I have explained to her that based on the fact that she has not using it the insurance will cover for any supplies. Therefore, she is going to start using at this time. Will review the use with the next download. 09/18/2023 the patient is here for a pulmonary follow-up visit. She unfortunately developed worsening respiratory symptoms. She did go to the hospital she was diagnosed with influenza A. She went to the hospital twice after that with worsening respiratory symptoms cough wheezing chest tightness. She was given prednisone multiple times. The patient was not admitted to the hospital. Her chest x-ray was clear. She still continues to complain of shortness of breath. Even with minimal activity moderate severity. Also complains of some chest congestion. She has been using her nebulizer treatments in addition to her respiratory medications and now she ran out. I will make sure to supply of the medication pharmacy. The patient also will be treated for postviral bacterial infection and also still having wheezing on examination so therefore will place her on a small dose of prednisone that she can taper down slowly to try to improve her respiratory symptoms. If the patient is no better she would come in for chest x-ray. She also struggling with her CPAP. Her CPAP supplies have not been recieved. We did request supplies from the [employer] during the last visit. Will call the DME again. Also she needs a nebulizer replacement that we requested during her last visit. 01/19/2024 the patient is here for a pulmonary follow-up visit. The patient is complaining worsening cough. She does not feel like the Breo is helping her. She also has wheezing and chest tightness. She did have a Symbicort available and she tried that and worked a lot better than her medication. She is also wondering over biologic injections. She is currently taking Spiriva. Will go ahead and maximize her respiratory therapy by switching over to Symbicort and continue the Spiriva. If the patient is no better she can have blood work done to assess her for allergic biologic therapies. In the meantime she does have a new CPAP with her. The CPAP therapy has been affecting beneficial. Her AHI is down 0.5. The patient has been use it more than 4 hours a night which is reassuring. The major issues that has an air leakage from her fullface mask. Will try to get her a different mask, F 30 medium mask on to her [employer]. Her DME company is [employer]. She has not heard from them. I will send prescriptions in order for her to get supplies. The patient otherwise is doing well. Will follow-up in the spring. In the meantime she develops any worsening symptoms prior to that she will come for an earlier assessment. 07/05/2024 the patient is here for pulmonary follow-up visit. Overall the patient has been doing okay. She complains of asthma symptoms on a daily basis. She has been having to use her rescue inhaler daily. If not several times a day. Back in the fall she did have bad respiratory infection positive for RSV she was briefly admitted to the hospital. The patient was treated in now feels like her asthma has never been the same after that. In the meantime she continues use her CPAP. CPAP therapy continues to be affecting beneficial and she does use it for more than 4 hours a night. Her AHI is within normal limits. And she continues to get supplies from her [employer]. She does use a fullface mask which will request. In regards of the uncontrolled asthma symptoms she has had eosinophilia in the past. We will see about checking her blood work again for eosinophils and also IgE and will looking to biologic therapy for her ongoing symptoms. 08/20/2024 the patient is here for a sick visit. Apparently she started developing severe left-sided pleuritic chest pains. She went to the ER thinking she was having hard talk that was back in the beginning of August. He was treated and released. Subsequently she went back to the ER on August 15 for persistent discomfort. At that point she did have a CT scan of the chest. I did personally review. She did have a loculated effusion which is concerning. Also associated with pneumonia on the left side. She continues to have significant pleurisy in hard time breathing. She denies any fevers or chills she is coughing but does hurt to cough so hard to clear secretions. She was given an antibiotic. Now has been about a week since she started antibiotics and she has not seen any improvement. The patient is actually feeling like she is getting worse. I did repeat an x-ray which I personally reviewed demonstrating worsening left-sided pleural effusion. Or opacity difficult to interpret based on the x-ray limitations. In view of the worsening disease I did recommend she go back to the ER. 08/31/2024 the patient is here for a hospital follow-up visit. She was sent over to [facility] where she ended up getting. The chest tube was not effective so therefore she underwent a decortication of the left hemithorax. Surgery went well. She is recovering well. Yesterday though she had a temperature a 101.5 degrees in the VNA nurse mentions some erythema or warmth around the operative site. Respiratory varner she is doing well although still diminished on the left hemithorax. She is going to get an x-ray when able. She is feeling a little nauseous and dizzy right now. I did provide her with some Zofran in order for her to improve her nausea symptoms since started taking by mouth a little bit more. The patient is already taking antibiotics. Will add doxycycline to her regimen to treat for any kind of postoperative cellulitis. If she has any issues prior to the next visit she will call for an earlier assessment. 11/04/2024 the patient is here for a pulmonary follow-up visit. She is recovering well after her surgery. Still has some neuropathic pain on the left hemithorax. But now she is complaining of some epigastric discomfort primarily when she is breathing. Also tender in that area. Because of her significant postoperative discomfort she has been taking high dose which is the Motrin. Unfortunately explained to her that she may have developed some gastritis from it. Therefore she is going to go ahead and stop the Motrin for now and will be placed on a PPI to see if we can get some relief. If her discomfort persists she will let me know. Will also request a barium swallow to better address the area. But for now she knows about the breathing and she understand that the areas going to be tender. We did look at the CT scan she had back in September. I did personally reviewed with her. She still has a little bit of a loculated pleural effusion on the left base and that will likely result in some discomfort. But overall much improved. The patient will follow-up in 3 4 months. If she has any issues she will call. She will also start taking the gabapentin at nighttime. If she needs a higher dose she will call whenever she is ready. [facility] Medical History Spasm of bowel Abdominal pain, epigastric LUQ abdominal pain Abdominal pain Abdominal cramping Left flank pain Atelectasis of left lung Chronic pain syndrome 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 Sacroiliitis Disc degeneration, lumbar OTILIO (obstructive sleep apnea) Back pain HTN (hypertension) Skin cancer (melanoma) GERD (gastroesophageal reflux disease) Depression OTILIO (obstructive sleep apnea) Kidney stones Pulmonary nodule Severe asthma Primary osteoarthritis involving multiple joints Pneumonia Chronic allergic rhinitis (~03/09/20) Asthma-COPD overlap syndrome Surgical History History of bronchoscopy History of cystoscopy History of laparoscopic appendectomy History of nasal surgery Hx of section Hx of tubal ligation Hx of colonoscopy History of esophagogastroduodenoscopy (EGD) Hx of knee surgery Family History Father No problems noted. Mother No problems noted. Social History Household Members: Children Housing: Apartment Do you presently have visiting nurse or other home services: Yes (private home health aid) Alcohol intake: never Patient Tobacco Use Status: Never used Tobacco e-Cigarette/Vaping Use: Never Used Second Hand Smoke Exposure: No Advance Directives Date on File: 10/13/23 service: No Current occupational status: disabled Current occupation: rt handed Review of Systems Const Denies daytime sleepiness, Reports difficulty sleeping, Reports fever(s) and Denies stops breathing during sleep Eyes Denies change in vision ENT Reports Normal hearing present Card Reports dyspnea Resp Reports cough, Reports pain on inspiration, Reports pain with cough, Reports dyspnea and Denies wheezing Musc Reports back pain Neuro Reports Normal hearing present and Denies Abnormal speech present Aller/Immun Denies wheezing Physical Exam Vital Signs: Last Vital Signs Pulse 83 11/04/24 10:21 BP 140/80 H 11/04/24 10:21 Pulse Ox 95 11/04/24 10:21 Oxygen Delivery Method Room Air 11/04/24 10:21 BMI result Body Mass Index 35.7 Const General: alert Neck Neck: Yes normal visual inspection, Yes full ROM and Yes no lymphadenopathy Chest Chest palpation & inspection: normal inspection of the chest Resp Effort & Inspection: normal respiratory effort Auscultation: no rhonchi, no wheezes and diminished lung sounds Cardio Rate: regular rate Rhythm: regular rhythm Heart sounds: S1 normal heart sound present and S2 normal heart sound present GI Palpation (GI): Soft to palpation and nontender Auscultation: normal bowel sounds Skin General skin exam: rashes and/or lesions noted Neuro Cranial nerves: Yes Normal hearing present Speech: No Abnormal speech present Assessment & Plan Assessment & Plan (1) Loculated pleural effusion: Comment: s/p VATS decortication Code(s): J90 - Pleural effusion, not elsewhere classified Category: Medical (2) Asthma-COPD overlap syndrome: Code(s): J44.9 - Chronic obstructive pulmonary disease, unspecified Category: Medical (3) Severe asthma: Code(s): J45.909 - Unspecified asthma, uncomplicated Category: Medical Qualifiers: Asthma persistence: persistent Asthma complication type: uncomplicated Qualified Code(s): J45.50 - Severe persistent asthma, uncomplicated (4) OTILIO (obstructive sleep apnea): Code(s): G47.33 - Obstructive sleep apnea (adult) (pediatric) Category: Medical (5) Pulmonary nodule: Code(s): R91.1 - Solitary pulmonary nodule Category: Medical (6) GERD (gastroesophageal reflux disease): Code(s): K21.9 - Gastro-esophageal reflux disease without esophagitis Category: Medical Qualifiers: Esophagitis presence: without esophagitis Qualified Code(s): K21.9 - Gastro-esophageal reflux disease without esophagitis (7) Atelectasis of left lung: Code(s): J98.11 - Atelectasis Category: Medical (8) Chest pain: Code(s): R07.9 - Chest pain, unspecified Category: Medical Qualifiers: Chest pain type: chest pain on breathing Qualified Code(s): R07.1 - Chest pain on breathing Plan Continue APAP, requesting F30 medium mask consider stopping Daliresp 500mg daily start PPI continue symbicort continue Spiriva JOHANA as needed continue Dupixent once better continue singulair F/U 6 months Orders: Orders [place] barium swallow Today K21.9 - Gastro-esophageal reflux disease without esophagitis Medications: New gabapentin 100 mg PO BEDTIME 60 caps 6RF 60 days omeprazole 40 mg PO DAILY 30 caps 5RF Coding Level of Care Code Est Pt Level 4 (78906) Complex EM visit Add On G2211 Diagnoses Loculated pleural effusion J90 Asthma-COPD overlap syndrome J44.9 Severe persistent asthma without complication J45.50 Asthma persistence: persistent Asthma complication type: uncomplicated OTILIO (obstructive sleep apnea) G47.33 Pulmonary nodule R91.1 Gastroesophageal reflux disease without esophagitis K21.9 Esophagitis presence: without esophagitis Atelectasis of left lung J98.11 Chest pain on breathing R07.1 Chest pain type: chest pain on breathing Time Spent (min) 17
== END 2024-11-04 10:40 | disposition home or self-care (01) ==
LOC: HO.HPS 10:14
PROVIDERS: PCP General Practice; Visit Provider Hospitalist
DX: J90 Pleural effusion, not elsewhere classified (principal); J44.9 Chronic obstructive pulmonary disease, unspecified; J45.50 Severe persistent asthma, uncomplicated; G47.33 Obstructive sleep apnea (adult) (pediatric); R91.1 Solitary pulmonary nodule; K21.9 Gastro-esophageal reflux disease without esophagitis; J98.11 Atelectasis; R07.1 Chest pain on breathing
CPT/HCPCS: 99214; G2211

== ENCOUNTER → 2024-11-04 10:13 | Outpatient (BNVA) | payer OTHER, SELFPAY | PROVIDERS: PCP General Practice; Visit Provider Hospitalist | DX: J90 Pleural effusion, not elsewhere classified (principal); J44.9 Chronic obstructive pulmonary disease, unspecified; J45.909 Unspecified asthma, uncomplicated; G47.33 Obstructive sleep apnea (adult) (pediatric); R91.1 Solitary pulmonary nodule; K21.9 Gastro-esophageal reflux disease without esophagitis; J98.11 Atelectasis; R07.9 Chest pain, unspecified | CPT/HCPCS: 99212 ==

== ENCOUNTER 2024-11-15 14:35 | Outpatient (REF) | payer OTHER, SELFPAY ==
--- OUTSIDE RECORDS SUMMARY | 2024-07-07 10:15 | XMS_ITS | Continuity of Care Document ---
Author Organization [facility] Address [address] [place] [address] Phone Care Team Providers Care Chicken Buyer Name Role Phone Juan DE LA TORRE, RVT, RPVI, Alfred Unavailable U navailable Allergies, Adverse Reactions, Alerts Substance Reaction Status Criticality morphine Active No Information Procedures Procedure Date Office/Outpt E&M Established 15 Mins- CT & [place] Duplex Scan-extrem Veins; Uni/ CT & [place] F Duplex Scan-extrem Veins; Uni/ CT & [place] N Endovenous Rf, 1st Vein- [place] & [place] 2023 Offic/outpt E&m Estab 5 Min Trial- CT & [place] Offic Cons New/estab Mod 40 Mi- CT & [place] Duplex Scan-extrem Veins; Comp- CT & [place] Advance Directives Directive Yes / No Effective Date File Name Other Directive No 07/07/2024 N/A WARNING:The information contained in this section is historical and is provided for information only and does not constitute a legal document or any assurance that the information is still accurate. Please verify the information with the monge of the legal document before using it for clinical purposes. Encounters Encounter Description Practice Location Reason(s) For Visit Diagnoses Date Provider Providers Copied on Encounter Office/Outpt E&M Established 15 Mins- [place] & [place] [facility], [address] [place] [address] [address], [place], [id number], [place] tel:[phone] [facility] [place] Venous insufficiency (chronic) (peripheral) 5 Juan DE LA TORRE RVT, HAMLET Simon. [address] [facility], [address], [facility], [place], [id number] , [place]. [phone] Referring Provider: Mary Flores MD, [address] [place] [address], [address]. tel:[phone] [facility], [address] [place] [address] Dr [address], [id number], [place] [phone] [facility] [place] Pain in right leg 5 Juan DE LA TORRE RVT, HAMLET Simon. [address] [place] [address], [facility], [place], [id number] , [place]. [phone] Referring Provider: Mary Flores MD, [address] [place] [address], [address]. tel:[phone] [facility], [address] [place] [address] Dr [address], [id number], [place] tel:[phone] [facility] [place] Encounter for follow-up examination after completed treatment for conditions other than malignant neoplasmPain in right leg 4 Juan DE LA TORRE RVT, HAMLET Simon. [address] [facility], [facility] [address], [facility], [place], [id number] , [place]. [phone] Referring Provider: Mary Flores MD, [address] [place] [address], [address]. tel:[phone] [facility], [address] [place] [address] [address], [id number], [place] tel:[phone] [facility] [place] Varicose veins of right lower extremity with other complications 4 Juan DE LA TORRE RVT, HAMLET Simon. [address] [facility] [address], [facility], [place], [id number] , [place]. [phone] Referring Provider: Mary Flores MD, [address] [place] [address], [address]. tel:[phone] [facility], [address] [place] [address] Dr [address]SuChanell [place], [id number], [place] tel:[phone] [facility] [place] No Information Nov-0 4 Juan DE LA TORRE RVT, HAMLET Simon. [address] [facility], [address], [facility], [place], [id number] , [place]. tel:[phone] Offic/outpt E&m Estab 5 Min Trial- [place] & [place] [facility], [address] [place] [address] Dr [address]SuChanell [place], [id number], [place] tel:[phone] [facility] [place] Chronic venous hypertension (idiopathic) with other complications of bilateral lower extremity Oct- 4 Juan DE LA TORRE RVT, HAMLET Simon. [address] [place] [address], [facility], [place], [id number] , [place]. tel:[phone] Referring Provider: Mary Flores MD, [address] [place] [address], [address]. tel:[phone] Offic Cons New/estab Mod 40 Mi- CT & [place] [facility], [address] [place] [address] Dr [address] 1000[place], [id number], [place] tel:[phone] [facility] Hereditary lymphedemaCramp and spasmChronic venous hypertension (idiopathic) with other complications of bilateral lower extremityPain in right legPain in left legRestless legs syndromeVenous insufficiency (chronic) (peripheral)Lym phedema, not elsewhere classifiedLocal ized edema Sep-0 4 Juan DE LA TORRE RVT, HAMLET Simon. [address] [facility], [place] [address], [facility], [place], [id number] , [place]. tel:[phone] Referring Provider: Mary Flores MD, [address] [place] [address], [address]. tel:[phone] [facility], [address] [place] [address] Dr [address]SuChanell n[place], [id number], [place] tel:[phone] CV[facility] Chronic venous hypertension (idiopathic) with other complications of bilateral lower extremity Juan DE LA TORRE, RVT, RPVI Alfred. [address] [facility], [address], [place], [place], [id number] , . tel:[phone] Referring Provider: Mary Flores MD, [address] [place], [address]. tel:[phone] Family History Family Member Type Diagnosis Age At Onset No Information Payers Payer name Insurance type Covered constitution party ID Rosalind lemus(s) [facility] CI [id number] Social History Type Description Quantity Date Captured Comments Alcohol Use Details Unknown Caffeine Use Details Unknown Tobacco Use Status Current non-smoker Smoking Status Never Smoker Non-Smoking Tobacco Use Details : No Details Available : No Details Available Sex Female Vital Signs Date / Time: Height Weight BMI Pulse Rate Blood Pressure Temperature Respiratory Rate Body Surface Area Head Circumference Head Circ. Percentile Wt./Mack. Percentile BMI percentile Pulse Ox Inhaled Ox 90.720 kg (200.00 lbs) 35.4 8 kg/m eter (2) 120/80 mm[Hg] Chief Complaint And Reason For Visit No Information Reason For Referral Reason For Referral No Information Plan Of Treatment Date Type Action Status Goal Diet education completed Goal Tobacco cessation counseling completed Goal Diet education completed Referral Ordered: Weight management: Referral to physician timeframe: 3 Months (related to Body mass index (BMI) 35.0-35.9, adult) ordered Referral Ordered: Weight management: Referral to physician timeframe: 3 Months (related to Body mass index (BMI) 35.0-35.9, adult) ordered History Of Present Illness Encounter Date Complaint History Of Prese nt Illness No Information Functional Status Date Functional Assessmen t No Information Instructions Date Instruction Additional Infor charlie Diet education Related to Body mass index (BMI) 35.0-35.9, adult Giving Encouragement to exercise Related to Body mass index (BMI) 35.0-35.9, adult Lifestyle education Related to B stanley mass index (BMI) 35.0-35.9, adult Compression stocking usage as conservative measure Related to Venous insufficiency (chronic) (peripheral) Patient education booklet given Related to Venous insufficiency (chronic) (peripheral) Patient education booklet given Related to Chronic [...]
--- OUTSIDE RECORDS SUMMARY | 2024-11-10 18:49 | XMS_ITS | Encounter Summary ---
Author Organization [employer] Address [address] [place] [address] Care Team Providers Care Director Of Rehabilitation And Wellness Name Role Phone Mary Flores MD Primary Care Provider Reason for Visit * Reason Comments Cough Sent in by to r/o PNA Encounter Details Date Type Department Care Team (Late st Contact Info) Description 11/10/2024 6:49 PM EDT - 11/10/2024 8:[address] [facility] [address] [place] [address] Pharyngitis, unspecified etiology (Primary Dx); Acute cough Discharge Disposition: Home or Self Care Social History Tobacco Use Types Packs/Day Years [...] Sign Reading Time Taken Comments Blood Pressure 145/87 11/10/2024 7:38 PM EDT Pulse 91 11/10/2024 7:38 PM EDT Temperature 36.7 C (98 F) 11/10/2024 7:38 PM EDT Respiratory Rate 18 11/10/2024 7:38 PM EDT Oxygen Saturation 95% 11/10/2024 7:38 PM EDT Inhaled Oxygen Concentration - - Weight 90.3 kg (199 lb) 11/10/2024 3:30 PM EDT Height 160 cm (5' 3 ) 11/10/2024 3:30 PM EDT Body Mass Index 35.25 11/10/2024 3:30 PM EDT documented in this encounter Discharge Instructions * Discharge Instructions* ADRIAN Kumar - 11/10/2024 8:35 PM EDT You were seen in the ER today for flulike symptoms. We did a test which did not show any evidence of COVID, flu, or RSV. This does not mean that you do not have another virus causing her symptoms. I believe it is likely that you do have a virus that is the cause of your symptoms. Please be sure to get plenty of rest and stay hydrated with fluids. If you develop a fever you may take Tylenol or ibuprofen. You may take Tylenol and ibuprofen in general for your aches and pains. You may also take [id number] cold medications. Please be aware that many of them do contain Tylenol (acetaminophen) so please be sure to read the ingredients that you are not taking too much Tylenol. Please return to the ER if you experience any high fevers, sensation of throat closure or swelling in throat, shortness of breath, chest pain, or any other reason you see fit. It was a pleasure caring for you today in the emergency department. Please return to the emergency department if you begin to experience any new onset chest pain, shortness of breath, uncontrolled fevers, severe abdominal pain, loss of consciousness, uncontrolled vomiting, uncontrolled diarrhea, or for any other reason you feel is necessary. Your x-ray did show still a small pleural effusion on the left side which does mean a small amount of fluid on the left side. Please follow-up with your security architect about this. It does appear to beimproved from previous. Please follow-up with your PCP about this visit. Examination and treatment you received in the emergency department has been rendered on an EMERGENCY basis only. It is not intended to be a substitute for or an effort to provide complete medical care. You should follow-up with your primary care provider. Please report to your physician any new or remaining problems, because it is impossible to recognize and treat all elements of injury or illness in a single emergency department visit. If you do not have a primary care provider or require a referral, a follow-up doctor piped buttonhole machine operator for the emergency department will be provided in your discharge packet. In the event that you're unable to obtain a followup appointment in a timely fashion, OR you are not getting any better, OR you are getting worse, OR you develop any symptoms of concern, please return here immediately for further evaluation. The emergency department is open 24 hours a day, 7 days aweek. Your discharge report is based on information that was available when you were in the emergency department If you do not have a primary care provider, please contact one of the following to make arrangements to follow up. Tish [place] Tish Aguayo Tish Antoine Tish Hammer * Attachments The following attachments cannot be sent through Care Everywhere. * Sore Throat (Persian) documented in this encounter Medications at Time of Discharge albuterol 2.5 mg /3 mL (0.083 %) nebulizer solution Take 3 mL (2.5 mg total) by nebulization every 4 (four) hours if needed for wheezing or shortness of breath. aspirin 81 mg chewable tablet Chew 1 tablet (81 mg total) daily. 07/12/2024 atorvastatin (LIPITOR) 10 mg tablet Take 1 tablet (10 mg total) by mouth 1 (one) time each day. budesonide-formo teroL (SYMBICORT) 160-4.5 mcg/actuation inhaler Inhale 2 puffs by mouth every 12 hours. 08/04/2018 carbidopa-levodo pa (SINEMET) 25-100 mg per tablet Take 1 tablet by mouth 2 times daily. 06/11/2024 cetirizine (ZyrTEC) 10 mg tablet Take 1 tablet (10 mg total) by mouth 1 (one) time each day. dilTIAZem CD (CARDIZEM CD) 300 mg 24 hr capsule Take 1 capsule (300 mg total) by mouth daily. 05/01/2024 Dupixent Pen 300 mg/2 mL pen Inject 2 mL (300 mg total) under the skin every 14 days. 08/09/2024 guaiFENesin (ROBITUSSIN) 100 mg/5 mL liquid Take 10 mL (200 mg total) by mouth 3 (three) times a day if needed for cough for up to 10 days. 120 mL 11/10/2024 hydroCHLOROthiaz angel 12.5 mg tablet Take 1 tablet (12.5 mg total) by mouth daily. 07/19/2024 imipramine (TOFRANIL) 50 mg tablet Take 0.5 tablets (25 mg total) by mouth 2 (two) times a day. Linzess 290 mcg capsule Take 1 capsule (290 mcg total) by mouth 1 (one) time each day before breakfast. lisinopril (PRINIVIL,ZESTRI L) 40 mg tablet Take [...] mouth 1 (one) time each day. 06/22/2024 ProAir RespiClick 90 mcg/actuation aerosol powdr breath activated Inhale 2 puffs by mouth. Inhale 2 puffs by mouth every 4-6 hours as needed for shortness of breath or wheezing 08/06/2024 roflumilast (DALIRESP) 500 mcg tablet Take 1 tablet (500 mcg total) by mouth 1 (one) time each day. documented as of this encounter Ordered Prescriptions Prescription Sig Dispense Quantity Refills Last Filled Start Date End Date guaiFENesin (ROBITUSSIN) 100 mg/5 mL liquid Take 10 mL (200 mg total) by mouth 3 (three) times a day if needed for cough for up to 10 days. 120 mL 11/10/2024 11/20/2024 documented in this encounter Discharge Disposition Disposition Code Departure Means Destination Comment s Home or Self Care documented in this encounter Progress Notes * Luz Burch RN - 11/10/2024 3:27 PM EDT Pt sent in by PCP to r/o pneumonia. Pt c/o headache, cough, fever, and sore throat since friday. Pt states cough is productive of yellow sputum. Denies sick contacts. documented in this encounter Plan of Treatment Scheduled Orders Name Type Priority Associated Diagnoses Orde r Schedule ECG 12 lead ECG STAT Once for 1 Oc currences starting 11/10/2024 until 11/10/2024 documented as of this encounter Procedures Procedure Name Priority Date/Time Associated Diagnosis Comments RAPID STREP A SCREEN STAT 11/10/2024 7:29 PM EDT CULTURE THROAT STAT 11/10/2024 7:29 PM EDT XR CHEST 2 VIEWS STAT 11/10/2024 4:22 PM EDT RESPIRATORY VIRUS PANEL MOLECULAR STUDY STAT 11/10/2024 4:15 PM EDT CBC WITH AUTO DIFFERENTIAL STAT 11/10/2024 4:14 PM EDT CBC AND DIFFERENTIAL STAT 11/10/2024 4:14 PM EDT B-TYPE NATRIURETIC PEPTIDE STAT 11/10/2024 4:14 PM EDT BASIC METABOLIC PANEL STAT 11/10/2024 4:14 PM EDT documented in this encounter Results * Culture throat (11/10/2024 7:29 PM EDT) Pathologist [facility] Culture, Throat No pathogens isolated. 11/12/2024 10:47 AM EDT [facility] Swab Structure of anterior portion of neck / Unknown Non-blood Collection / Unknown 11/10/2024 7:29 PM EDT 11/10/2024 8:06 PM EDT Adri CAMPBELL LAB MICROBIOLOGY - GENERAL ORDERABLES Final Result Performing Organization Address [facility]/ZIP Co de Phone Number [facility] [address] [place] [address], [place] [phone] * Rapid strep A screen (11/10/2024 7:29 PM EDT) Strep A Ag Negative Negative, Invalid 11/10/2024 8:19 PM EDT [facility] Comment:Refer to Throat Cult ure. Swab Structure of anterior portion of neck / Unknown Non-blood Collection / Unknown 11/10/2024 7:29 PM EDT 11/10/2024 8:06 PM EDT Adri CAMPBELL LAB MICROBIOLOGY - GENERAL ORDERABLES Final Result Performing Organization Address [facility] de Phone Number [facility] [address] [place] [address], [place] [phone] * XR Chest 2 Views (11/10/2024 4:22 PM EDT) Anatomical Region Laterality Modality Body Radiographic Jessica ging 11/10/2024 4:34 PM EDT Impressions 11/10/2024 4:34 PM EDT FINDINGS/IMPRESSION: Small left pleural effusion and associated presumed volume loss. Right lung is clear. No acute osseous abnormality. -------- FINAL REPORT -------- Dictated By: Zulay Reed Dictated Date: 11/10/2024 16:34 ET Assigned Physician: Zulay Reed Reviewed and Electronically Signed By: Zulay Reed Signed Date: 11/10/2024 16:34 ET Workstation ID: [id number] Transcribed By: Self Edit Transcribed Date: 11/10/2024 16:34 ET Narrative 11/10/2024 4:34 PM EDT XR CHEST 2 VIEWS INDICATION: dyspnea TECHNIQUE: XR CHEST 2 VIEWS COMPARISON: No priors available. Procedure Note Zulay Reed MD - 11/10/2024 XR CHEST 2 VIEWS INDICATION: dyspnea TECHNIQUE: XR CHEST 2 VIEWS COMPARISON: No priors available. IMPRESSION: FINDINGS/IMPRESSION: Small left pleural effusion and associated presumedvolume loss. Right lung is clear. No acute osseous abnormality. -------- FINAL REPORT -------- Dictated By: Zulay Reed Dictated Date: 11/10/2024 16:34 ET Assigned Physician: Zulay Reed Reviewed and Electronically Signed By: Zulay Reed Signed Date: 11/10/2024 16:34 ET Workstation ID: [id number] Transcribed By: Self Edit Transcribed Date: 11/10/2024 16:34 ET Idris Rogers MD IMG XR PROCEDURES Final Result * Respiratory virus panel molecular study (11/10/2024 4:15 PM EDT) Adenovirus Detection by PCR Not Detected Not Detected LAB MICROBIOLOGY METHOD 11/10/2024 5:53 PM EDT [facility] Influenza A PCR Not Detected Not Detected LAB MICROBIOLOGY METHOD 11/10/2024 5:53 PM EDT [facility] Influenza B PCR Not Detected Not Detected LAB MICROBIOLOGY METHOD 11/10/2024 5:53 PM EDT [facility] Coronavirus 229E Not Detected Not Detected LAB MICROBIOLOGY METHOD 11/10/2024 5:53 PM EDT [facility] Coronavirus HKU1 Not Detected Not Detected LAB MICROBIOLOGY METHOD 11/10/2024 5:53 PM EDT [facility] Coronavirus OC43 Not Detected Not Detected LAB MICROBIOLOGY METHOD 11/10/2024 5:53 PM EDT [facility] Coronavirus NL63 Not Detected Not Detected LAB MICROBIOLOGY METHOD 11/10/2024 5:53 PM EDT [facility] Parainfluenza Virus 1 Not Detected Not Detected LAB MICROBIOLOGY METHOD 11/10/2024 5:53 PM EDT [facility] Parainfluenza Virus 2 Not Detected Not Detected LAB MICROBIOLOGY METHOD 11/10/2024 5:53 PM EDT [facility] Parainfluenza Virus 3 Not Detected Not Detected LAB MICROBIOLOGY METHOD 11/10/2024 5:53 PM EDT [facility] Parainfluenza Virus 4 Not Detected Not Detected LAB MICROBIOLOGY METHOD 11/10/2024 5:53 PM EDT [facility] RSV PCR Not Detected Not Detected LAB MICROBIOLOGY METHOD 11/10/2024 5:53 PM EDT [facility] Human Metapneumovirus A and B Not Detected Not Detected LAB MICROBIOLOGY METHOD 11/10/2024 5:53 PM EDT [facility] Rhinovirus/Entero virus Not Detected Not Detected LAB MICROBIOLOGY METHOD 11/10/2024 5:53 PM EDT [facility] Bordetella pertussis Not Detected Not Detected LAB MICROBIOLOGY METHOD 11/10/2024 5:53 PM EDT [facility] Bordetella parapertussis Not Detected Not Detected LAB MICROBIOLOGY METHOD 11/10/2024 5:53 PM EDT [facility] Mycoplasma pneumo by PCR Not Detected Not Detected LAB MICROBIOLOGY METHOD 11/10/2024 5:53 PM EDT [facility] Chlamydia pneumoniae Not Detected Not Detected LAB MICROBIOLOGY METHOD 11/10/2024 5:53 PM EDT [facility] SARS COV-2 Not Detected Not Detected LAB MICROBIOLOGY METHOD 11/10/2024 5:53 PM EDT [facility] Swab Both anterior nares / Unknown Non-blood Collection / Unknown 11/10/2024 4:15 PM EDT 11/10/2024 4:46 PM EDT [facility] - 11/10/2024 5:53 PM EDT Testing was performed using the [employer] Respiratory Pathogen PCR Assay. All results must be correlated with the clinical findings. Results should not be used as the sole basis for diagnosis. False Negative results may occur from the presence of sequence variants in the region targeted by the assay or the presence of inhibitors. Results may be affected by concurrent antiviral/antimicrobial therapy or levels of organisms that are below the limit of detection. Idris Rogers MD LAB MICROBIOLOGY - GENERAL NATHALIE TYLER Final Result [facility] [address] [place] [address], * (ABNORMAL) CBC auto differential (11/10/2024 4:14 PM EDT) WBC 9.9 4.8 - 10.8 K/mcL LAB HEMETOLOGY METHOD 11/10/2024 4:52 PM EDT [facility] RBC 4.40 3.80 - 4.80 M/mcL LAB HEMETOLOGY METHOD 11/10/2024 4:52 PM EDT [facility] Hemoglobin 13.2 11.5 - 16.0 g/dL LAB HEMETOLOGY METHOD 11/10/2024 4:52 PM EDT [facility] Hematocrit 40.7 35.0 - 47.0 % LAB HEMETOLOGY METHOD 11/10/2024 4:52 PM EDT [facility] MCV 92.1 79.0 - 98.0 FL LAB HEMETOLOGY METHOD 11/10/2024 4:52 PM EDT [facility] MCH 29.9 27.0 - 32.0 pcg LAB HEMETOLOGY METHOD 11/10/2024 4:52 PM EDT [facility] MCHC 32.4 32.0 - 37.0 g/dL LAB HEMETOLOGY METHOD 11/10/2024 4:52 PM EDT [facility] RDW 13.2 11.0 - 15.0 % LAB HEMETOLOGY METHOD 11/10/2024 4:52 PM EDT [facility] Platelets 343 130 - 400 K/mcL LAB HEMETOLOGY METHOD 11/10/2024 4:52 PM [facility] MPV 10.9 7.0 - 11.0 FL LAB HEMETOLOGY METHOD 11/10/2024 4:52 PM [facility] NRBC 0.0 <1.0 % LAB HEMETOLOGY [facility] NR[facility] Absolute 0.00 <0.10 K/mcL LAB HEMETOLOGY METHOD 11/10/2024 4:52 PM [facility] Neutrophils Relative 64.8 % LAB HEMETOLOGY METHOD 11/10/2024 4:52 PM [facility] Lymphocytes Relative 15.7 % LAB HEMETOLOGY METHOD 11/10/2024 4:52 PM [facility] Monocytes Relative 9.5 % LAB HEMETOLOGY METHOD 11/10/2024 4:52 PM [facility] Eosinophils Relative 9.0 % LAB HEMETOLOGY METHOD 11/10/2024 4:52 PM [facility] Basophils Relative 0.7 % LAB HEMETOLOGY METHOD 11/10/2024 4:52 PM [facility] Immature Granulocytes Relative 0.3 % LAB HEMETOLOGY METHOD 11/10/2024 4:52 PM [facility] Neutrophils Absolute 6.37 1.50 - 7.00 K/mcL LAB HEMETOLOGY METHOD 11/10/2024 4:52 PM [facility] Lymphocytes Absolute 1.55 1.00 - 5.00 K/mcL LAB HEMETOLOGY METHOD 11/10/2024 4:52 PM [facility] Monocytes Absolute 0.94 0.20 - 1.00 K/mcL LAB HEMETOLOGY METHOD 11/10/2024 4:52 PM EDT [facility] Eosinophils Absolute 0.89(H) 0.00 - 0.50 K/[facility] LAB HEMETOLOGY METHOD 11/10/2024 4:52 PM EDT [facility] Basophils Absolute 0.07 0.00 - 0.20 K/[facility] LAB HEMETOLOGY METHOD 11/10/2024 4:52 PM EDT [facility] Immature Granulocytes Absolute 0.03 0.00 - 0.03 K/[facility] LAB HEMETOLOGY METHOD 11/10/2024 4:52 PM EDT [facility] Blood Venous blood specimen / Unknown Venipuncture / Unknown 11/10/2024 4:14 PM EDT 11/10/2024 4:46 PM EDT us Idris Rogers MD LAB BLOOD ORDERABLES Final Resu lt Performing Organization Address City/[facility]/ZIP Co de Phone Number [facility] [address] [place] [address], [place] [phone] * B-type natriuretic peptide (11/10/2024 4:14 PM EDT) [facility] BNP 11 <=100 pcg/mL LAB CHEMISTRY METHOD 11/10/2024 5:23 PM EDT [facility] Blood Venous blood specimen / Unknown Venipuncture / Unknown 11/10/2024 4:14 PM EDT 11/10/2024 4:46 PM EDT us Idris Rogers MD LAB BLOOD ORDERABLES Final Resu lt Performing Organization Address City/[facility]/ZIP Co de Phone Number [facility] [address] [place] [address], [place] [phone] * Basic metabolic panel (11/10/2024 4:14 PM EDT) Pathologist [facility] Sodium 137 133 - 145 mmol/L LAB CHEMISTRY METHOD 11/10/2024 5:11 PM [facility] Potassium 4.0 3.5 - 5.5 mmol/L LAB CHEMISTRY METHOD 11/10/2024 5:11 PM [facility] Chloride 106 96 - 110 mmol/L LAB CHEMISTRY METHOD 11/10/2024 5:11 PM [facility] CO2 26 21 - 32 mmol/L LAB CHEMISTRY METHOD 11/10/2024 5:11 PM [facility] Anion Gap 5 3 - 11 LAB CHEMISTRY METHOD 11/10/2024 5:11 PM [facility] Glucose 82 70 - 100 mg/dL LAB CHEMISTRY METHOD 11/10/2024 5:11 PM [facility] BUN 11 5 - 25 mg/dL LAB CHEMISTRY METHOD 11/10/2024 5:11 PM [facility] Creatinine 0.56 0.50 - 1.10 mg/dL LAB CHEMISTRY METHOD 11/10/2024 5:11 PM [facility] eGFR 95 >=60 mL/min/1. 73m2 LAB CHEMISTRY METHOD 11/10/2024 5:11 PM [facility] Comment:Calculation based on the Chronic Kidney Disease Epidemiology Collaboration (CKD-EPI) equation refit without adjustment for race. BUN/Creatinine Ratio 19.6 LAB CHEMISTRY METHOD 11/10/2024 5:11 PM [facility] Calcium 9.7 8.5 - 10.5 mg/dL LAB CHEMISTRY METHOD 11/10/2024 5:11 PM [facility] Blood Venous blood specimen / Unknown Venipuncture / Unknown 11/10/2024 4:14 PM EDT 11/10/2024 4:46 PM EDT us Idris Rogers MD LAB BLOOD ORDERABLES Final Resu lt [facility] [address] [place] [address], documented in this encounter Visit Diagnoses Diagnosis Pharyngitis, unspecified etiology- Primary Acute cough documented in this encounter Care Teams Director Of Rehabilitation And Wellness Relationship Specialty Start Date End Date Mary Flores MD [address] [place] [address] PCP - General Weather Algorithm Scientist 08/25/24 documented as of this encounter
--- NOTE | ~2024-11-15 | XR_ITS ---
EXAMINATION: XR CHEST CLINICAL INFORMATION: Left pleural effusion, cough COMPARISON: September 24, 2024 TECHNIQUE: 2 views of the chest were obtained. FINDINGS: Again seen is left basilar opacity that appears similar to the prior examination Heart size normal. Lungs clear otherwise. XR/XR chest 2V IMPRESSION: Stable small left pleural effusion with compressive atelectasis and/or pneumonia. Electronically signed by: Toribio Jung MD 11/15/2024 03:01 PM EDT
--- OUTSIDE RECORDS SUMMARY | 2024-11-15 15:08 | XMS_ITS | Clinical Summary ---
Author Organization [facility] Facility Address [address] [address] Care Team Providers Care Furnace Brazer Name Role Phone Frances Fowler RN Primary [...] DAILY FOR 2 DAYS. 12/21/2020 Active Creon 94678-60459 units capsule TAKE 1 CAPSULE BY MOUTH [...] by mouth 02/12/2021 Active ergocalciferol 1.25 MG (46490 UT) capsule TAKE 1 CAPSULE BY MOUTH [...] Pneumococcal Vaccine: 50+ Ye ars (1 of 1 - PCV) 1999 Influenza Vaccine (#1) 2025 Hepatitis B Vaccine Aged Out No longe r eligible based on patient's age to complete this topic Insurance Plan Dual Elig Plan Dual Elig Care Teams Furnace Brazer Relationship Specialty Start Date End Date Frances Fowler RN PCP - General Family Medicine 11/09/20
--- OUTSIDE RECORDS SUMMARY | 2024-11-15 15:08 | XMS_ITS ---
Author Name Sonya Gallagher NP Address [address] [place] [address] Phone [phone] [facility] Care Team Providers [employer] Name Role Phone Sonya Gallagher Unavailable [phone] NATALY CRANDALL Unavailable [phone] Bret Bonner Unavailable [phone] Deanna Casillas Unavailable [phone] CALEB RAMON Unavailable [phone] EDWARD REBOLLEDO Unavailable [phone] Reason for Referral Not Available Allergies, adverse [...] 290 MCG Cap TAKE 1 CAPSULE BY [facility] EVERY MORNING 2021-10-25 No Data Available Albuterol Sulfate HFA 108 (9 0 Base) MCG/ACT Aerosol Solution INHALE 2 PUFFS BY MOUTH EVERY 4 TO 6 HOURS NEEDED 2021-05-30 No Data Available Amitriptyline 100 mg Tab TAKE 1 TABLET B Y MOUTH AT BEDTIME 2021-10-09 No Data Available Creon [id number] UNIT Cap delayed rel TAKE 1 CAPSULE BY MOUTH FOUR TIMES DAILY, WITH MEALS OR SNACKS AND AT BEDTIME 2021-11-08 No Data Available Cyclobenzaprine 10 mg Tab TAKE 1 TABLET BY MOUTH AT BEDTIME 2021-10-09 No Data Available Daliresp 500 MCG Tab TAKE 1 TABLET BY [facility] EVERY DAY 2021-05-30 No Data [...] Available Vitamin D (Ergocalciferol) 1 .25 mg (23127 UT) Cap TAKE 1 CAPSULE BY MOUTH [...] List Problem Status Onset Date Resolved Date Synopsis Hypertension Active 2022-04-08 N/A sees CD ever y 3-5 mo Skin cancer Active 2022-04-08 N/A sees oncologi st - does not know name Rheumatoid arthritis Active 2022-04-08 N/A sees Dr Garcia - rheumotologist sees every 6 mo Osteoarthritis Active 2022-04-08 N/A left knee pain and swellingbilateral pain but left worse Morbid (severe) obesity due to excess calories Active 2022-04-13 N/A BMI-35.43 associated HTN, CHFencourage healthy food choices Depression, major, 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 N/A on Amitriptyli ne, Duloxetinealso on Melatonin for sleepPHQ9=12 Mar 2022 Congestive heart failure Active 2022-04-08 N/A on Carvediolol, dilTIAZem, hydroCHLOROthiazide, Lisinoprilsees CD every 3-5 months 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 Active 2022-04-08 N/A on Incruse Ellip ta, Breo, Daliresp ; Albuterol PRN AND Montelukast sees pulm every 3 mo Encounters Encounters Type Facility Date of Service Diagnosis/Co mplaint New patient,40-59min; chronic exacerbation, 2 stable chronic or 1 acute illness add add modifier 95 for video (do not use for phone, instead use 81343-98) [facility], ([place]) 04/08/2022 Hypertensive heart disease w ith heart failureHeart failure, unspecifiedUnspecified asthma, uncomplicatedChronic obstructive pulmonary disease, unspecifiedRheumatoid arthritis, unspecifiedHyperlipidemia, unspecifiedDepression, unspecified New patient,40-59min; chronic exacerbation, 2 stable chronic or 1 acute illness add add modifier 95 for video (do not use for phone, instead use 33601-02) [facility], ([place]) 04/08/2022 New patient,40-59min; chronic exacerbation, 2 stable chronic or 1 acute illness add add modifier 95 for video (do not use for phone, instead use 69198-12) [facility], ([place]) 04/08/2022 New patient,40-59min; chronic exacerbation, 2 stable chronic or 1 acute illness add add modifier 95 for video (do not use for phone, instead use 51956-73) [facility], ([place]) 04/08/2022 New patient,40-59min; chronic exacerbation, 2 stable chronic or 1 acute illness add add modifier 95 for video (do not use for phone, instead use 69393-45) [facility], ([place]) 04/08/2022 New patient,40-59min; chronic exacerbation, 2 stable chronic or 1 acute illness add add modifier 95 for video (do not use for phone, instead use 81529-41) [facility], ([place]) 04/08/2022 New patient,40-59min; chronic exacerbation, 2 stable chronic or 1 acute illness add add modifier 95 for video (do not use for phone, instead use 06802-48) [facility], ([place]) 04/08/2022 New patient,40-59min; chronic exacerbation, 2 stable chronic or 1 acute illness add add modifier 95 for video (do not use for phone, instead use 27699-06) [facility], ([place] 04/08/2022 New patient,40-59min; chronic exacerbation, 2 stable chronic or 1 acute illness add add modifier 95 for video (do not use for phone, instead use 01118-87) [facility] ([place]) 04/08/2022 Estab. patient 20-29min; 1 stable chronic or 2 minor; add add modifier 95 for video, modifier 93 for phone [facility] ([place]) 05/09/2022 Hypertensive heart disease w ith heart [...] tive Time Current Smoking Status Never smoker 6 Sex Female History of Procedures Procedures Service Procedure code Service date Servicing provider Phone# New patient,40-59min; chronic exacerbation, 2 stable chronic or 1 acute illness add add modifier 95 for video (do not use for phone, instead use 11214-20) [id number] 2022-04-09 No Data Available No Data Availa [...] 95 for video, modifier 93 for phone 42934 2022-05-09 No Data Available No Data Availa [...] modifier 95Continue to see PCP. Follow-up with [facility] as needed for any acute or disease [...] worseon Amitriptyline, Duloxetinealso on Melatonin for sleepPHQ9=1 Mar2BMI-35.43 associated HTN, CHFencourage healthy food choices Goals [...] using a udio and video over the [facility] tablet. Time spent in visit: 20 minutesToday, patient has chief complaint of: monitoring of chronic conditions 2022-05-09 Most recent hospital stay(s) or ER visit(s) and precipitating factors: denies 2022-05-09 Open HEDIS Measure r raven: done
--- OUTSIDE RECORDS SUMMARY | 2024-11-15 15:08 | XMS_ITS | Data Portability ---
Author Organization [employer] [facility], [facility] Address [address] [place] [address] Care Team Providers Care Cigarette Paper Tester Name Role Phone HIM CCA Referring Provider [facility] OTHER Assessment Encounter Date Assessment Date Assessment LastModified by Organization Details LastModified Time 08/21/2023 08/21/2023 I provided real -time medical direction via phone for this encounter, and was available for additional phone based assistance as needed. I have reviewed and agree with the Assessment and Plan as documented by the Assurance Auditor. We discussed the diagnostic uncertainty of home visits and the risk associated with this. In this case the patient and I felt this to be an acceptable and reasonable amount of risk given the benefit of avoiding an ED visit. Via official court interpreter, the patient given the opportunity to ask questions. Advised to follow-up with PCP tomorrow if develops CP/severe SOB/turning blue/uncontrolle d n/v/d or black/bloody emesis or stool/ AMS/ syncope/ hi fever unresponsive to APAP to call 911- verbalized understanding of instruction Not available 08/21/2023 11:52:46 09/17/2024 09/17/2024 Ms. Sera Ordonez is a 74 yo F with Headache, High Blood Pressure, Postoperative Problems who is calling today with L chest wall pain after chest tube removal. Per patient and medic, patient had some fluid and chest tube placed recently. But had it removed recently. Having [...] SOB. No lower leg swelling. Feels like she s doing better after the surgery. But still somewhat difficult to sleep 2/2 pain in the left lower ribs. No renal dysfunction. No recent meds taken today aside from Tylenol. Wants the pain to go away to help her sleep. Not on AC. Sx sound like normal post-op/procedur e pain 2/2 chest tube placement. Reasonable to start with toradol IM and then aids counselor about safe tylenol/motrin use. Advised that if [...] Assessment and Plan as documented by the Assurance Auditor. We discussed the diagnostic uncertainty of home [...] plasma 2023 024 [email or web address] 0 [facility], [address] [place] [address], [id number] 4 11:57:22 rapid SARS CoV 2 Ag, QL IA, respiratory specimen 2023 024 [email or web address] 0 Main [facility], [address] [place] [address], [id number] 4 11:57:26 rapid flu (A+B) 2023 024 [email or web address] 0 [facility], [address] [place] [address], [id number] 4 11:57:27 Referral None recorded. Procedures None recorded. Surgeries None recorded. Imaging None recorded. Medication Orders ketorolac 30 mg/mL injection solution 2024 025 [facility]7 [facility], [address] [place] [address], [id number], 5 12:22:51 ibuprofen 400 mg tablet 2024 025 [id number], [address] [place] [address], [place], [id number], 5 12:22:52 ondansetron 4 mg disintegrat ing tablet 2023 [facility], [address] [place] [address], [id number], 4 14:03:53 ipratropium 0.5 mg-albutero l 3 mg (2.5 mg base)/3 mL nebulizatio n soln 2023 024 [email or web address] 0 Not available 4 11:57:22 prednisone 20 mg tablet 2023 024 [email or web address] 0 Not available 4 11:57:22 prednisone 20 mg tablet 2023 024 [facility], [address] [place] [address], [id number], 4 12:59:13 Tylenol Arthritis Pain 650 mg tablet,exte nded release 2023 024 [facility], [address] [place] [address], [id number], 4 14:44:00 benzonatate 200 mg capsule 2023 024 [facility], [address] [place] [address], [id number], 11:39:43 Patient TargetsNo targets recorded. Patient InstructionsNo instructions recorded. Reason for Referral None Reported. Results Created Date Observation Date Name Description Value Unit Range Abnormal Flag Note LastModifiedBy Organization Detail LastModifiedTime 08/21/19 24 08/21/2023 BMP, serum or plasm a BUN 18 Not Available Main - [address], [address] [place] [address] 08/21/2023 11:23:37 08/21/19 24 08/21/2023 BMP, serum or plasm a Ca Ionize d calciu m 1.21 Not Available [facility] ed [address] [place] [address], [address] [place] [address] 08/21/2023 11:23:37 08/21/19 24 08/21/2023 BMP, serum or plasm a CI- 107 Not Available [facility] - [address], [address] [place] [address] 08/21/2023 11:23:37 08/21/19 24 08/21/2023 BMP, serum or plasm a CRE 0.54 Not Available Main - Ins [address], [address] [place] [address] 08/21/2023 11:23:37 08/21/19 24 08/21/2023 BMP, serum or plasm a GLU 89 Not Available [facility] - Ins [address], [address] [place] [address] 08/21/2023 11:23:37 08/21/19 24 08/21/2023 BMP, serum or plasm a K+ 3.9 Not Available Main - Ins [address], [address] [place] [address] 08/21/2023 11:23:37 08/21/19 24 08/21/2023 BMP, serum or plasm a Na+ 143 Not Available Main - Ins [address], [address] [place] [address] 08/21/2023 11:23:37 08/21/19 24 08/21/2023 BMP, serum or plasm a tCO2 26.4 Not Available [facility] - Ins [address], [address] [place] [address] 08/21/2023 11:23:37 08/21/19 24 08/21/2023 rapid SARS CoV 2 Ag, QL IA, respi rator y speci men rapid SARS CoV 2 Ag, QL IA, respiratory specimen negati ve Not Available [facility] ed [address] [place] [address], [id number] 08/21/2023 11:23:43 08/21/19 24 08/21/2023 rapid flu (A+B) Flu negati ve Not Available [facility] ed [address] [place] [address], [id number] 08/21/2023 11:23:44 Result Notes None recorded. Medical [...] Organization Details LastModified Time pulse oximet airial [id number] USE DIRECTED EVERY DAY IN THE MORNING active Not Available Not Available No t Available metformin 500 mg tablet TAKE 1 TABLET BY MOUTH EVERY DAY IN MORNING active Not Available Not Available No t Available neomycin-tricia ymyxin-hydro skylar 3.5 mg/mL-10,000 unit/mL-1 % ear solution PLACE 3 DROPS INTO THE AFFECTED EAR(S) FOUR TIMES DAILY FOR 7 DAYS active Not Available Not Available N ot Available BD Alcohol Swabs APPLY 1 PAD TOPICALLY CUANDO SEA NECESARIO active Not Available Not Available No t Available imipramine 50 mg tablet TOME DOS TABLETAS POR V A ORAL AL ACOSTARSE active Not Available Not Available No t Available carvedilol 25 mg tablet TOME FERNY TABLETA DOS VECES AL D A CON ALIMENTO active Not Available Not Available No t Available carvedilol 6.25 mg tablet TOME FERNY TABLETA DOS VECES AL D A CON ALIMENTO active Not Available Not Available No t Available prednisone 10 mg tablet TAKE 1 TABLET BY MOUTH EVERY DAY active Not Available Not Available No t Available doxycycline hyclate 100 mg capsule TOME 1 C PSULA POR V A ORAL DOS VECES AL D A FOR 10 DAYS active Not Available Not Available No t Available carvedilol 12.5 mg tablet TAKE 1 TABLET BY MOUTH TWICE DAILY WITH FOOD active Not Available Not Available No t Available ipratropium 0.5 mg-albuterol 3 mg (2.5 mg base)/3 mL nebulization soln TAKE 3 ML BY NEBULIZATIO N EVERY 4-6 HOURS NEEDED FOR WHEEZING. active Not Available Not Available No t Available nabumetone 750 mg tablet TOME FERNY TABLETA DOS VECES AL D A active Not Available Not Available No t Available clindamycin HCl 300 mg capsule TOME FERNY C PSULA AKANKSHA VECES AL D A active Not Available Not Available No t Available albuterol sulfate 2.5 mg/3 mL (0.083 %) solution for nebulization INHALE 2.5 MG (3 ML) BY NEB EVERY 4 HOURS NEEDED FOR SHORTNESS OF BREATH OR WHEEZING FOR 30 DAYS active Not Available Not Available Not Available cetirizine 10 mg tablet TOME 1 TABLETA POR V A ORAL TODOS LOS D active Not Available Not Available No t Available atorvastatin 10 mg tablet TOME 1 TABLETA POR V A ORAL TODOS LOS D AL ACOSTARSE active Not Available Not Available No t Available aspirin 325 mg tablet FARRAH FERNY TABLETA DIARIA. active Not Available Not Available No t Available ibuprofen 800 mg tablet TAKE 1 TABLET (800 MG) BY MOUTH EVERY 6 (SIX) HOURS IF NEEDED FOR MILD PAIN. active Not Available Not Available N ot Available benzonatate 200 mg capsule TAKE 1 CAPSULE THREE TIMES DAILY NEEDED active Not Available Not Available No t Available diltiazem CD 240 mg capsule,exte nded release 24 hr TAKE 1 CAPSULE BY MOUTH EVERY DAY IN THE MORNING active Not Available Not Available No t Available FreeStyle Lancets 28 gauge USE DIRECTED active Not Available Not Available No t Available famotidine 40 mg tablet FARRAH FERNY TABLETA EN LA NOCHE ANTES DE ACOSTARSE active Not Available Not Available No t Available prednisone 20 mg tablet TOME DOS TABLETAS POR V A ORAL TODOS LOS D POR LOUISE D active Not Available Not Available No t Available alendronate 70 mg tablet take 1 tablet [...] active Not Available Not Available Not Available doxycycline monohydrate 100 mg tablet TOME 1 TABLETA POR V A ORAL DOS VECES AL D A FOR 14 DAYS active Not Available Not Available No t Available Sudogest 30 mg tablet TAKE 1 TABLET BY MOUTH EVERY 4 HOURS NEEDED FOR CONGESTION FOR UP TO 10 DAYS active Not Available Not Available No t Available spironolacto ne 25 mg tablet TOME FERNY TABLETA TODOS LOS D active Not Available Not Available No t Available amoxicillin 500 mg tablet TOME FERNY TABLETA POR V A ORAL CADA OCHO HORAS UNTIL GONE active Not Available Not Available No t Available acetaminophe n ER 650 mg tablet,exten ded release TAKE 1 TABLET BY MOUTH EVERY 6 HOURS NEEDED active Not Available Not Available No t Available famotidine 20 mg tablet FARRAH FERNY TABLETA DIARIAMENTE EN LA TARDE active Not Available Not Available Not Available magnesium oxide 400 mg (241.3 mg magnesium) tablet TAKE 1 TABLET (400 MG) ORALLY BEDTIME FOR 30 DAYS MAY HOLD FOR LOOSE STOOLS active Not Available Not Available No t Available Ear Wax Removal Kit 6.5 % drops PLACE 5 TO 10 DROPS INTO THE AFFECTED EAR(S) TWICE DAILY FOR 4 DAYS active Not Available Not Available N ot Available meclizine 25 mg tablet TAKE 1 TABLET BY MOUTH THREE TIMES DAILY IN THE MORNING, AT NOON, AND AT BEDTIME NEEDED FOR DIZZINESS active Not Available Not Available No t Available diltiazem CD 300 mg capsule,exte nded release 24 hr TOME 1 C PSULA POR V A ORAL TODOS LOS D active Not Available Not [...] No t Available ibuprofen 400 mg tablet TOME FERNY TABLETA POR V A ORAL CADA CUATRO A SEIS HORAS POR 5 D active Not Available Not Available No t Available docusate sodium 100 mg capsule TAKE 1 CAPSULE BY MOUTH TWICE DIALIY WITH FOOD active Not Available Not Available No t Available gabapentin 300 mg capsule TAKE 1 CAPSULE BY MOUTH WITH BREAKFAST AND LUNCH AND 2 CAPSULE WITH SUPPER active Not Available Not Available Not Available omeprazole 20 mg capsule,sahara yed release TOME 1 C PSULA POR V A ORAL A DIARIO active Not Available Not Available No t Available aspirin 81 mg chewable tablet CHEW 1 TABLET (81 MG) ONCE PER DAY. active Not Available Not Available No t Available montelukast 10 mg tablet TAKE 1 TABLET BY MOUTH EVERY DAY active Not Available Not Available No t Available codeine 10 mg-guaifenes in 100 mg/5 mL oral liquid TAKE 5 ML BY MOUTH EVERY DAY AT BEDTIME active Not Available Not Available N ot Available bisacodyl 5 mg tablet,delay ed release TAKE 1 TABLET BY MOUTH EVERY DAY IN THE MORNING AND TAKE 2 TABLETS BY MOUTH EVERY DAY AT BEDTIME active Not Available Not Available No t Available hydrochlorot hiazide 25 mg tablet TAKE [...] active Not Available Not Available Not Available cefuroxime axetil 500 mg tablet TAKE 1 TABLET ORALLY 2 TIMES A DAY FOR 7 DAYS active Not Available Not Available N ot Available estradiol 0.01% (0.1 mg/gram) vaginal cream INSERT 1 GRAM VAGINALLY EVERY WEEK DIRECTED active Not Available Not Available Not Available albuterol sulfate HFA 90 mcg/actuatio n aerosol inhaler INHALE 2 PUFFS BY MOUTH EVERY 4 TO 6 HOURS NEEDED FOR WHEEZING OR SHORTNESS OF BREATH active Not Available Not Available No t Available carbidopa 25 mg-levodopa 100 mg tablet TOME FERNY TABLETA POR V A ORAL DOS VECES AL D A active Not Available Not Available No t Available betamethason e dipropionate 0.05 % topical ointment APPLY TO THE AFFECTED AREA(S) ON HANDS DAILY DIRECTED FOR ECZEMA active Not Available Not Available N ot Available lisinopril 40 mg tablet TAKE 1 TABLET (40 MG) BY MOUTH ONCE PER DAY. active Not Available Not Available No t Available ondansetron 4 mg disintegrati ng tablet DISSOLVE 1 TABLET IN MOUTH EVERY 8 HOURS NEEDED FOR NAUSEA AND VOMITING FOR 10 DAYS active Not Available Not Available Not Available fluticasone propionate 50 mcg/actuatio n nasal spray,suspen charan PLEASE SEE ATTACHED FOR DETAILED DIRECTIONS active Not Available Not Available N ot Available doxycycline hyclate 100 mg tablet TOME FERNY TABLETA POR V A ORAL DOS VECES AL D A FRO 7 DAYS active Not Available Not Available No t Available dicyclomine 10 mg capsule TOME FERNY CAPSULA DOS VECES AL EILEEN active Not Available Not Available No t Available amoxicillin 875 mg-potassium clavulanate 125 mg tablet TOME 1 TABLETA POR V A ORAL DOS VECES AL D A POR 2 SEMANAS active Not Available Not Available No t Available oxycodone 5 mg tablet TOME FERNY TABLETA POR V A ORAL AKANKSHA VECES AL D A CUANDO SEA NECESARIO PARA EL DOLOR active Not Available Not Available No t [...] Available Not Available No t Available Pain Relief Extra Strength (acetaminoph en) 500 mg tablet PLEASE SEE ATTACHED FOR DETAILED DIRECTIONS active Not Available Not Available N ot Available hydrochlorot hiazide 12.5 mg tablet TAKE 1 TABLET (12.5 MG) BY MOUTH ONCE PER DAY. active Not Available Not Available No t Available budesonide-f ormoterol HFA 160 mcg-4.5 mcg/actuatio n aerosol inhaler INHALE DANDO DOS SOPLIDOS POR V A ORAL DOS VECES AL D A active Not Available Not Available No t Available FreeStyle [place] Lite kit DIRECTED active Not Available Not Available Not Available diclofenac 1 % topical gel APLICAR [...] Creon 24,000-76,00 0-120,000 unit capsule,sahara yed release TOME 1 C PSULA POR V A ORAL CUATRO VECES AL D A BEFORE A MEAL / BEDTIME active Not Available Not Available No t Available Gavilax 17 gram/dose oral powder TAKE 17 G BY MOUTH 1 (ONE) TIME EACH DAY IF NEEDED FOR CONSTIPATIO N FOR UP TO 10 DAYS. active Not Available Not Available No t Available Vitamin D3 50 mcg (2,000 unit) capsule TAKE 1 CAPSULE BY MOUTH ONCE DAILY active Not Available Not Available No t Available roflumilast 500 mcg tablet TOME FERNY TABLETA POR V A ORAL DAILY active Not Available Not Available No t Available Linzess 290 mcg capsule TOME 1 C PSULA POR V A ORAL TODOS LOS D EN LA MA REED active Not Available Not Available No t Available Spiriva Respimat 2.5 mcg/actuatio n solution for inhalation INHALE 2 PUFFS BY MOUTH EVERY DAY active Not Available Not Available No t Available Incruse Ellipta 62.5 mcg/actuatio n powder for inhalation INHALE 1 PUFF EVERY DAY AT THE SAME TIME active Not Available Not Available No t Available ProAir RespiClick 90 mcg/actuatio n breath activated INHALE DANDO 2 SOPLIDOS CADA 4-6 HORAS CUANDO SEA NECESARIO PARA FALTA DE RESPIRACI N/LA SIBILANCIA active Not Available Not Available N ot Available Breo Ellipta 200 mcg-25 mcg/dose powder for inhalation INHALE 1 PUFF BY MOUTH EVERY DAY AT THE SAME TIME active Not Available Not Available No t Available Lidocaine Pain Relief 4 % topical patch APPLY 1 PATCH TOPICALLY 1 (ONE) TIME EACH DAY FOR 10 DAYS. active Not Available Not Available No t Available Vitals Date Recorded Body weight Body temperature Respiratory rate Heart rate Oxygen saturation Oxygen saturation in Arterial blood by Pulse oximetry Oxygen saturation Oxygen saturation in Arterial blood by Pulse oximetry Heart rate Heart rate Systolic And Diastolic Systolic And Diastolic Systolic And Diastolic Provider Name and Address Organization Details Last Updated DateTime 4 51100.2 16 g 97.8 [degF] 16 /min 76 /min 95 % 95 % 99 % 99 % 70 /min 70 /min 158/112 mm[Hg] 150/82 mm[Hg] 150/70 mm[Hg] Not Available [employer] 4 11:43:04 Date Recorded Body weight Body temperature Respiratory rate Body height Heart rate Oxygen saturation Oxygen saturation in Arterial blood by Pulse oximetry Systolic And Diastolic Provider Name and Address Organization Details Last Updated DateTime 5 11696.6 24 g 98.2 [degF] 18 /min 162.56 cm 80 /min 96 % 96 % 149/79 mm[Hg] Not Available [employer] 5 12:16:46 Social History None recorded. Functional Status None recorded. Mental Status None recorded. Family History Nothing Reported. Medical History No medical history recorded. Gynecological HistoryNo gynecological history recorded. 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 Patient [...] an appetite-s he verbalized understand ing of ita cortés [id number] KHADIJAH ROWAN MD Main - [facility] [address] [place] [id number] 09/17/2024 12:16:43 09/17/2024 19:26:55 Chest wall pain 658277448 R07.89 Health Concerns Section Related Observation LastModified by Organization Detai ls LastModified Time None Recorded Concern Status LastModified by Organization Details LastModified Time None Recorded Advance Directives Directive None Recorded Payers Insurance Date Sequence Insurance Name Policy Number Policy Briceño Covered Member ID Briceño Member ID Guarantor Name 09/17/2024 1 [facility] - DOS ON OR AFTER 2022 - DUAL ELIGIBLE - NURSING HOME OPTIONS AND ONE CARE (MEDICARE REPLACEMENT/ADV ANTAGE - HMO) Margarita Ordonez [id number] Margarita Ordonez Notes Date Note Type Note Provider Name and Address Organization Details Recorded Time 08/21/2023 text/html HPI: Call to Margarita Zamora reports continues to have cough, SOB and wheezing. Pt seen at [facility] on 08/12 and dx with Flu A. [...] Chronic pain- limited old records available in [place]. LD Tylenol was 3 days ago for [...] evening............... ...................... ...................... ...................... ...................... ...................... ................ Assurance Auditor Note From Kun Cruz: Pt co cough [...] with slight wheezing. Afebrile. [facility] contacted and duo neb, 40mg prednisone given, RX for prednisone, benzonatate,zofran and Tylenol called in. Pt advised to follow up with pcp tomorrow. Pt advised to increase neb treatments from 3 xper day to 4 x s per day. Pt advised to discontinue use of naprasin( SEGMD: Naprosyn) while ill due to increased BP. Pt education on signs indicating the ER. Assurance Auditor Allergies: Morphine ...................... ...................... ...................... ...................... ...................... ...................... ......... Disposition: Fulfilled Genevieve Stover MD [address] [place] [address],[address], [place], [address], [employer] 08/21/2023 12:03:44 09/17/2024 text/html HPI: Call returned to Maragrita Zamora to triage below. 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 Pt offered Walk in center. Pt declines but agrees to Written for vitals check and assessment. Pt advised [...] ...................... ...................... ...................... ...................... ...................... ...................... ......... Assurance Auditor Note From Idris Ayoub: 74 yo female [...] ibuprofen. Dr. Rowan called in script to [facility] in [place]. Pt thanked us. Went over dosing of Tylenol and ibuprofen with pt and daughter via cell phone. No questions. [facility] Medication Orders: ketorolac 30 mg/mL injection solution: Administered Comment: y ...................... ...................... ...................... ...................... ...................... ...................... ......... [facility] Consulted: Khadijah Rowan ...................... ...................... ...................... ...................... ...................... ...................... ......... Disposition: Fulfilled KHADIJAH ROWAN MD [address] [facility],[address], [place], [address], [employer] 09/17/2024 13:54:55 OBGyn Episode No OBEpisode recorded.
--- OUTSIDE RECORDS SUMMARY | 2024-11-15 15:08 | XMS_ITS | Encounter Summary ---
Author Organization [employer] Address [address] [facility] [address] [place] [address] Care Team Providers Care Television Cabinet Finisher Name Role Phone Mary Flores MD Primary Care Provider [phone] Reason for Visit * Reason Onset Date Comments ER Follow-up 11/15/2024 Encounter Details Date Type Department Care Team (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 Call returned to Margarita Zamora to triage below at [phone]. Reports having ST and KHOURY. Pt states now having mild cough. Had subjective fever last night. Pt states was given cough syrup with minimal effect. Pt advised of disposition, agrees to sick onsite today for follow up. Protocol Used: Sore Throat (Adult) Protocol-Based Disposition: See in Office or Video Visit Today Future Appointments Date Time Provider Department Center 11/15/2024 2:00 PM Loyd Velasquez MD [facility] Insurance verified as active per Real Time Eligibility in [facility]. Video visit offer not recorded Positive Triage Question: * Severe sore throat pain * All higher-acuity triage questions were negative Care Advice Discussed: * Reassurance and Education - Sore Throat * Sore Throat * Reasons To Call Back - You become worse * Telephone Encounter - Charmaine Michael Tirado - 11/15/2024 11:52 AM EDT Tc from pt requesting a HDF appt. Patient calling to report ED visit on : Date: 11/10 Hospital: [facility] Seen for: Sore Throat, Fever Symptomatic Yes *if yes message should go to Triage Patient advised will forward to team nurse for follow up Contact pt at [phone] documented in this encounter Plan of Treatment Not on file documented as of this encounter Visit Diagnoses Not on filedocumented in this encounter Additional Health Concerns Assessment Noted Time PHQ-9 Depression Total Score: 7 11/10/19 24 2:30 PM EDT documented as of this encounter Care Teams Television Cabinet Finisher Relationship Specialty Start Date End Date Mary Flores MD [address] [place] [id number] PCP - General Family Medicine 01/05/22 [facility] 08/29/24 documented as of this encounter
[2024-11-15 15:23] LABS: MANUAL DIFF FLAG NO
[2024-11-15 17:23] LABS: Hematocrit 38.3 % (37.0-47.0); Hemoglobin 12.8 g/dl (12.0-16.0); Imm Gran Abs Auto 0.03 X10*3/uL (0.00-0.03); Imm Gran Pct Auto 0.3 % (0.0-0.4); Lymphocytes Absolute Auto 1.6 X10*3/uL (1.2-4.9); Mean Corpuscular HGB Conc 33.4 g/dl (31.0-35.0); Mean Corpuscular Hemoglobin 29.6 pg (27.0-33.0); Mean Corpuscular Volume 88.5 fL (80.0-98.0); NRBC Abs Auto 0.000 X10*3/uL (0.0-0.012); NRBC Pct Auto 0.0 /100WBC (0.0-0.2); Platelet Count 377 X10*3/uL (160-400); Red Blood Count 4.33 X10*6/uL (4.20-5.50); White Blood Count 8.9 X10*3/uL (4.8-10.8)
[2024-11-15 17:24] LABS: Hematocrit 38.5 % (37.0-47.0); Hemoglobin 12.7 g/dl (12.0-16.0); Imm Gran Abs Auto 0.03 X10*3/uL (0.00-0.03); Imm Gran Pct Auto 0.3 % (0.0-0.4); Lymphocytes Absolute Auto 1.5 X10*3/uL (1.2-4.9); Mean Corpuscular HGB Conc 33.0 g/dl (31.0-35.0); Mean Corpuscular Hemoglobin 29.2 pg (27.0-33.0); Mean Corpuscular Volume 88.5 fL (80.0-98.0); NRBC Abs Auto 0.000 X10*3/uL (0.0-0.012); NRBC Pct Auto 0.0 /100WBC (0.0-0.2); Platelet Count 384 X10*3/uL (160-400); Red Blood Count 4.35 X10*6/uL (4.20-5.50); White Blood Count 9.1 X10*3/uL (4.8-10.8)
[2024-11-15 17:25] LABS: Hematocrit 39.6 % (37.0-47.0); Hemoglobin 13.0 g/dl (12.0-16.0); Imm Gran Abs Auto 0.03 X10*3/uL (0.00-0.03); Imm Gran Pct Auto 0.3 % (0.0-0.4); Lymphocytes Absolute Auto 1.7 X10*3/uL (1.2-4.9); Mean Corpuscular HGB Conc 32.8 g/dl (31.0-35.0); Mean Corpuscular Hemoglobin 29.4 pg (27.0-33.0); Mean Corpuscular Volume 89.6 fL (80.0-98.0); NRBC Abs Auto 0.000 X10*3/uL (0.0-0.012); NRBC Pct Auto 0.0 /100WBC (0.0-0.2); Platelet Count 384 X10*3/uL (160-400); Red Blood Count 4.42 X10*6/uL (4.20-5.50); White Blood Count 9.0 X10*3/uL (4.8-10.8)
[2024-11-15 17:54] LABS: Alanine Aminotransferase 13 U/L (0-31); Albumin Level 4.1 g/dL (3.5-5.0); Alkaline Phosphatase 93 U/L (39-117); Anion Gap 12 (12-20); Aspartate Amino Transferase 20 U/L (5-31); Blood Urea Nitrogen 12 mg/dL (9-16); Calcium 9.4 mg/dL (8.4-10.2); Carbon Dioxide 24 mmol/L (22-29); Chloride 107 mmol/L (96-108); Estimated Glomerular Filt Rate > 60; Iron 44 mcg/dL (30-160); Percent Iron Saturation 16 % (15-50); Potassium 3.5 mmol/L (3.3-5.1); Sodium 139 mmol/L (135-145); Total Iron Binding Capacity 277 mcg/dL (228-428); Total Protein 7.4 g/dL (6.5-8.0); Unsaturated Iron Binding 233 ug/dL
[2024-11-15 18:11] LABS: Ferritin 116 ng/mL (10-250)
[2024-11-15 18:19] LABS: Folate 9.0 ng/mL (> or = 4.0); Vitamin B12 624 pg/mL (200-900)
[2024-11-16 10:13] LABS: Lyme Blot 2.39 index
[2024-11-17 10:17] LABS: Lyme Abs Screen POSITIVE
[2024-11-17 14:44] LABS: Anti Nuclear Antibody Screen NEGATIVE (NEGATIVE)
[2024-11-19 15:03] LABS: Vitamin D 25-OH, D2 5 ng/mL; Vitamin D 25-OH, D3 16 ng/mL; Vitamin D 25-OH, Total 21 ng/mL (30-100)
[2024-11-23 22:23] LABS: 39KD (IgG) Band NON-REACTIVE; 41KD (IgG) Band NON-REACTIVE; Lyme IgG Blot Interp NEGATIVE (NEGATIVE); Lyme IgM Blot Interp NEGATIVE (NEGATIVE)
== END 2024-11-15 14:36 | disposition home or self-care (01) ==
LOC: HO.HHCX 14:35
PROVIDERS: Hospitalist; Nurse Practitioner Family; PCP General Practice; Visit Provider Internal Medicine Geriatric Medicine
DX: J90 Pleural effusion, not elsewhere classified (principal); R25.1 Tremor, unspecified; R29.898 Other symptoms and signs involving the musculoskeletal system; D64.9 Anemia, unspecified; E55.9 Vitamin D deficiency, unspecified
CPT/HCPCS: 36415; 71046; 80053; 82306; 82607; 82728; 82746; 82784; 83090; 83540; 83921; 84443; 85025; 85652; 86038; 86141; 86431; 86617; 86618

== ENCOUNTER → 2024-11-15 14:46 | Outpatient (BNV) | payer OTHER, SELFPAY | PROVIDERS: PCP General Practice; Visit Provider Radiology Diagnostic Radiology | DX: J90 Pleural effusion, not elsewhere classified (principal) | CPT/HCPCS: 71046 ==

== ENCOUNTER 2024-12-14 08:35 | Outpatient (REF) | payer OTHER, SELFPAY ==
--- OUTSIDE RECORDS SUMMARY | 2024-12-14 08:46 | XMS_ITS ---
Author Name Sonya Gallagher NP Address [address] [place] [address] Phone [phone] [facility] Care Team Providers Care Cryptologist Name Role Phone Sonya Gallagher Unavailable [phone] NATALY CRANDALL Unavailable [phone] Bret Bonner Unavailable [phone] Deanna Casillas Unavailable [phone] CALEB RAMON Unavailable [phone] EDWARD REBOLLEDO Unavailable [phone] Reason for Referral Not Available Allergies, adverse [...] 290 MCG Cap TAKE 1 CAPSULE BY [facility] EVERY MORNING 2021-10-25 No Data Available Albuterol Sulfate HFA 108 (9 0 Base) MCG/ACT Aerosol Solution INHALE 2 PUFFS BY MOUTH EVERY 4 TO 6 HOURS NEEDED 2021-05-30 No Data Available Amitriptyline 100 mg Tab TAKE 1 TABLET B Y MOUTH AT BEDTIME 2021-10-09 No Data Available Creon 63764-74118 UNIT Cap delayed rel TAKE 1 CAPSULE BY MOUTH FOUR TIMES DAILY, WITH MEALS OR SNACKS AND AT BEDTIME 2021-11-08 No Data Available Cyclobenzaprine 10 mg Tab TAKE 1 TABLET BY MOUTH AT BEDTIME 2021-10-09 No Data Available Daliresp 500 MCG Tab TAKE 1 TABLET BY [facility] EVERY DAY 2021-05-30 No Data Available [...] Available Vitamin D (Ergocalciferol) 1 .25 mg (35064 UT) Cap TAKE 1 CAPSULE BY MOUTH [...] (do not use for phone, instead use 74357-69) [facility] Hypertensive heart disease w ith heart failureHeart failure, unspecifiedUnspecified asthma, uncomplicatedChronic obstructive pulmonary disease, unspecifiedRheumatoid arthritis, unspecifiedHyperlipidemia, unspecifiedDepression, unspecified New patient,40-59min; chronic exacerbation, 2 stable chronic or 1 acute illness add add modifier 95 for video (do not use for phone, instead use 04916-44) [facility] New patient,40-59min; chronic exacerbation, 2 stable chronic or 1 acute illness add add modifier 95 for video (do not use for phone, instead use 19522-88) [facility] [place] New patient,40-59min; chronic exacerbation, 2 stable chronic or 1 acute illness add add modifier 95 for video (do not use for phone, instead use 19575-26) [facility] New patient,40-59min; chronic exacerbation, 2 stable chronic or 1 acute illness add add modifier 95 for video (do not use for phone, instead use 74766-14) [facility] [place] New patient,40-59min; chronic exacerbation, 2 stable chronic or 1 acute illness add add modifier 95 for video (do not use for phone, instead use 63562-07) [facility] [place] New patient,40-59min; chronic exacerbation, 2 stable chronic or 1 acute illness add add modifier 95 for video (do not use for phone, instead use 25634-16) [facility] [place] New patient,40-59min; chronic exacerbation, 2 stable chronic or 1 acute illness add add modifier 95 for video (do not use for phone, instead use 37809-67) [facility] [place] New patient,40-59min; chronic exacerbation, 2 stable chronic or 1 acute illness add add modifier 95 for video (do not use for phone, instead use 22980-89) [facility] ([place] Estab. patient 20-29min; 1 stable chronic or 2 minor; add add modifier 95 for video, modifier 93 for phone [facility] ([place] 05/09/2022 Hypertensive heart disease w ith [...] tive Time Current Smoking Status Never smoker 5 Sex Female History of Procedures Procedures Service Procedure code Service date Servicing provider Phone# New patient,40-59min; chronic exacerbation, 2 stable chronic or 1 acute illness add add modifier 95 for video (do not use for phone, instead use 66216-67) 20153 2022-04-09 No Data Available No Data Availa [...] 95 for video, modifier 93 for phone 94757 2022-05-09 No Data Available No Data Availa [...] modifier 95Continue to see PCP. Follow-up with [employer] as needed for any acute or disease [...] using a udio and video over the [employer] tablet. Time spent in visit: 20 minutesToday, patient has chief complaint of: monitoring of chronic conditions 2022-05-09 Most recent hospital stay(s) or ER visit(s) and precipitating factors: denies 2022-05-09 Open HEDIS Measure r raven: done
--- OUTSIDE RECORDS SUMMARY | 2024-12-14 08:46 | XMS_ITS | Clinical Summary ---
Author Organization [facility] Address [address] [place] [address] [place] [phone] Phone Care Team Providers Care Industrial Controller Name Role Phone Pcp, Not Required Primary Care Provider Unavaila ble Social History Tobacco Use Types Packs/Day Years Used Date Smoking Tobacco: Never Assessed Education Answer Date Recorded Are you interested in more education? Not on charlotte e 09/06/2022 Are you concerned about learning? Not on file 09/06/2022 No 09/06/2022 No 09/06/2022 Digital Access Answer Date Recorded No 10/08/2022 No 10/08/2022 No 10/08/2022 Reliable internet access at home? Not on file 10/08/2022 Device with a working camera? Not on file Comments Unknown Sex and Gender Information Value Date Recorded Sex Assigned at Not on file Legal Sex Female 11:43 AM EST Gender Identity Not on file Sexual Orientation Not on file Plan of Treatment Not on file Medical Devices [place] [address] [facility] MEDICARE [place] [address] [address] [place] [address] MEDICARE REPLACEMENT Member Subscriber Plan / Payer (Ef fective 2017-Present) Name:Margarita Zamora Relation to Subscriber:Self Name:Margarita Zamora Payer ID:[id number] (NAIC) Group ID:[id number] Type:Medicare Address: [place] [phone] [place] [address] MEDICARE REPLACEMENT Member Subscriber Plan / Payer (Ef fective 2017-Present) Name:Margarita Zamora Relation to Subscriber:Self Name:Margarita Zamora Payer ID:[id number] (NAIC) Group ID:[id number] Type:Medicare Address: [place] [phone] Member Subscriber Plan / Payer (Ef fective 2017-Present) Name:Margarita Zamora Relation to Subscriber:Self Name:Margarita Zamora Payer ID:[id number] (NAIC) Group ID:[id number] Type:Medicare Address: [place] [phone] [facility] MEDICARE REPLACEMENT [facility] MEDICARE REPLACEMENT Care Teams Industrial Controller Relationship Specialty Start Date End Date Pcp, Not Required [address] [place] [address] PCP - General 06/16/17 Additional Source Comments The information contained in this document represents components of the legal health record. It is not the complete legal health record.[facility]
--- OUTSIDE RECORDS SUMMARY | 2024-12-14 08:46 | XMS_ITS | Encounter Summary ---
Author Organization [facility] Address [address] [place] [address] [address] [place] [address] Care Team Providers Care Plant Floor Automation Manager Name Role Phone Mary Flores MD Primary Care Provider [phone] Reason for Visit * Reason Comments Med Refill Encounter Details Date Type Department Care Team (Late st Contact Info) Description 08/15/2022 Refill [facility] [address] [place], [place] [phone] Keri Ochoa MD [address] [place] [address] Social History Tobacco Use Types Packs/Day Years [...] on filedocumented in this encounter Care Teams Plant Floor Automation Manager Relationship Specialty Start Date End Date Mary Flores MD [address] [place] [address] PCP - General Family Medicine 8/27/22 [employer] 08/29/24 documented as of this encounter
--- OUTSIDE RECORDS SUMMARY | 2024-12-14 08:46 | XMS_ITS | Clinical Summary ---
Author Organization [facility] Address [address] [address] Care Team Providers Care Arch Cushion Press Operator Name Role Phone Frances Fowler RN [...] DAILY FOR 2 DAYS. 12/21/2020 Active Creon 40089-40069 units capsule TAKE 1 CAPSULE BY MOUTH [...] by mouth 02/12/2021 Active ergocalciferol 1.25 MG (80840 UT) capsule TAKE 1 CAPSULE BY MOUTH [...] Insurance Plan [place] [address] Care Teams Arch Cushion Press Operator Relationship Specialty Start Date End Date Frances Fowler RN PCP - General Family Medicine 11/09/20
--- OUTSIDE RECORDS SUMMARY | 2024-12-14 08:46 | XMS_ITS | Clinical Summary ---
Author Organization [facility] Address [address] [place] [address] Phone Care Team Providers Care City Council Member Name Role Phone Mary Flores MD Primary [...] 1 tablet (81 mg total) daily. 5 07/13/19 26 Active atorvastatin (LIPITOR) 10 mg tablet Take [...] capsule (300 mg total) by mouth daily. 12/21/202 4 Active Dupixent Pen 300 mg/2 mL pen Inject 2 mL (300 mg total) under the skin every 14 days. 5 Active hydroCHLOROthi azide 12.5 mg tablet Take 1 tablet (12.5 mg total) by mouth daily. 5 07/20/19 26 Active imipramine (TOFRANIL) 50 mg tablet Take [...] mouth 1 (one) time each day. Active guaiFENesin (ROBITUSSIN) 100 mg/5 mL liquid Take 10 mL (200 mg total) by mouth 3 (three) times a day if needed for cough for up to 10 days. 120 mL 5 11/21/19 25 Active Problems Problem Noted Date Diagnosed Date Arthritis of both knees 09/08/2024 Asthma 09/08/2024 Chronic obstructive pulmonar y disease ([facility] V24, [facility] V28) 09/08/2024 Essential tremor 09/08/2024 Gallstone 09/08/2024 Gastroesophageal reflux disease 09/08/2024 Herniated lumbar intervertebral disc 09/08/2024 Hiatal hernia 09/08/2024 Hyperlipidemia 09/08/2024 Essential hypertension 09/08/2024 Chronic constipation 09/08/2024 Irritable bowel syndrome with constipation 09/08 Lung nodule 09/08/2024 Empyema lung ([facility] V24, [facility] V28) 09/09/19 25 Assessment & Plan (09/10/2024 4:01 PM EDT): Any 4-year-old female who on 08/21/2024 underwent a da Rod left total decortication, pleural biopsy and bronchoscopy [...] 09/08/2024 Enuresis, nocturnal only 09/08/2024 Depression, recurrent ([facility] V24) 09/08/2024 Trapezius muscle spasm 09/08/2024 Influenza A 09/08/2024 Obesity, morbid ([facility] V24, [facility] V28) 09/08 Pneumonia due to infectious organism 09/08/2024 Loculated pleural effusion 08/20/2024 Encounters Date Type Department Care Team Description 12/08/2024 Telephone Thoracic Surgery - [address] [place] [phone] Rahel Walker [place] Appointment (Request to be seen) 11/10/2024 6:49 PM EDT - 11/10/2024 8:53 PM EDT Emergency [facility] [address] [place] [phone] Pharyngitis, unspecified etiology (Primary Dx); Acute cough Discharge Disposition: Home or Self Care 09/27/2024 Telephone Pulmonology - [place] [address] [facility] [address] [place] [phone] Imelda Santiago MA from Last 3 Months Surgical History Surgery Date Site/Laterality Comments LUNG DECORTICATION 08/21/2024 Left Medical History Medical History Date Comments Empyema lung ([facility] V24, [facility] V28) 08/21/19 25 Left lung empyema Arthritis of both knees Asthma Chronic obstructive pulmonar y disease ([facility] V24, [facility] V28) Essential tremor Gallstone Gastroesophageal [...] vision, bilateral Enuresis, nocturnal only Depression, recurrent ([facility] V24) Trapezius muscle spasm Influenza A Obesity, morbid ([facility] V24, [facility] V28) Pneumonia due to infectious [...] Mass Index 35.25 11/10/2024 3:30 PM EDT Plan of Treatment Health Maintenance Due Date Last Done Comments COVID-19 Vaccine ( season) 2024 09/15/2020, 08/18/2020 RSV Immunization Adult Patients (1 - 1-dose 75+ series) 01/25/2024 Depression Screening 05/12/2024 Colorectal Cancer Screening: Colonoscopy 08/20/2024 Hepatitis C Screening 08/20/2024 Medicare Annual Wellness Visit 08/20/2024 Osteoporosis Screening (Bone Density Screening) 08/20/2024 Social Influencers of Health Screening 08/20/2024 Influenza Vaccine (#1) 2025 , 03/22/2020, 03/02/2019, Additional history exists Falls Risk Assessment 08/27/2025 08/27/2024 Hypertension/CHF/CAD Annual BMP Blood Test 11/10/2025 11/10/2024, 08/24/2024, 08/23/2024, Additional history exists Cholesterol Screening (Lipid Panel) 07/22/2028 07/23/2023 DTaP,Tdap,and [...] Procedure Name Priority Date/Time Associated Diagnosis Comments CULTURE THROAT STAT 11/10/2024 7:29 PM EDT RAPID STREP A SCREEN STAT 11/10/2024 7:29 PM EDT XR CHEST 2 VIEWS STAT 11/10/2024 4:22 PM EDT RESPIRATORY VIRUS PANEL MOLECULAR STUDY STAT 11/10/2024 4:15 PM EDT CBC WITH AUTO DIFFERENTIAL STAT 11/10/2024 4:14 PM EDT B-TYPE NATRIURETIC PEPTIDE STAT 11/10/2024 4:14 PM EDT BASIC METABOLIC PANEL STAT 11/10/2024 4:14 PM EDT CBC AND DIFFERENTIAL STAT 11/10/2024 4:14 PM EDT from Last 3 Months Results * Rapid strep A screen (11/10/2024 7:29 PM EDT) Strep A Ag Negative Negative, Invalid 11/10/2024 8:19 PM EDT [facility] Comment:Refer to Throat Cult ure. Swab Structure of anterior portion of neck / Unknown Non-blood Collection / Unknown 11/10/2024 7:29 PM EDT 11/10/2024 8:06 PM EDT Adri CAMPBELL LAB MICROBIOLOGY - GENERAL ORDERABLES Final Result Performing Organization Address [facility]/ZIP Co de Phone Number [facility] [address] [place] [address], [place] [phone] * Culture throat (11/10/2024 7:29 PM EDT) Culture, Throat No pathogens isolated. 11/12/2024 10:47 AM EDT [facility] Swab Structure of anterior portion of neck / Unknown Non-blood Collection / Unknown 11/10/2024 7:29 PM EDT 11/10/2024 8:06 PM EDT Adri CAMPBELL LAB MICROBIOLOGY - GENERAL ORDERABLES Final Result Performing Organization Address [facility] Co de Phone Number [facility] [address] [place] [address], [place] [phone] * XR Chest 2 Views (11/10/2024 4:22 [...] Signed Date: 11/10/2024 16:34 ET Workstation ID: [id number] Transcribed By: Self Edit Transcribed Date: 11/10/2024 [...] Signed Date: 11/10/2024 16:34 ET Workstation ID: [id number] Transcribed By: Self Edit Transcribed Date: 11/10/2024 16:34 ET Idris Rogers MD IMG XR PROCEDURES Final Result * Respiratory virus panel molecular study (11/10/2024 4:15 PM EDT) Adenovirus Detection by PCR Not Detected Not Detected LAB MICROBIOLOGY METHOD 11/10/2024 5:53 PM EDT [facility] Influenza A PCR Not Detected Not Detected LAB MICROBIOLOGY METHOD 11/10/2024 5:53 PM EDT [facility] Influenza B PCR Not Detected Not Detected LAB MICROBIOLOGY METHOD 11/10/2024 5:53 PM EDT [facility] Coronavirus 229E Not Detected Not Detected LAB MICROBIOLOGY METHOD 11/10/2024 5:53 PM EDT [facility] Coronavirus HKU1 Not Detected Not Detected LAB MICROBIOLOGY METHOD 11/10/2024 5:53 PM EDT [facility] Coronavirus OC43 Not Detected Not Detected LAB MICROBIOLOGY METHOD 11/10/2024 5:53 PM EDT [facility] Coronavirus NL63 Not Detected Not Detected LAB MICROBIOLOGY METHOD 11/10/2024 5:53 PM EDT [facility] Parainfluenza Virus 1 Not Detected Not Detected LAB MICROBIOLOGY METHOD 11/10/2024 5:53 PM EDT [facility] Parainfluenza Virus 2 Not Detected Not Detected LAB MICROBIOLOGY METHOD 11/10/2024 5:53 PM EDT [facility] Parainfluenza Virus 3 Not Detected Not Detected LAB MICROBIOLOGY METHOD 11/10/2024 5:53 PM EDT [facility] Parainfluenza Virus 4 Not Detected Not Detected LAB MICROBIOLOGY METHOD 11/10/2024 5:53 PM EDT [facility] RSV PCR Not Detected Not Detected LAB MICROBIOLOGY METHOD 11/10/2024 5:53 PM EDT [facility] Human Metapneumovirus A and B Not Detected Not Detected LAB MICROBIOLOGY METHOD 11/10/2024 5:53 PM EDT [facility] Rhinovirus/Entero virus Not Detected Not Detected LAB MICROBIOLOGY METHOD 11/10/2024 5:53 PM EDT [facility] Bordetella pertussis Not Detected Not Detected LAB MICROBIOLOGY METHOD 11/10/2024 5:53 PM EDT [facility] Bordetella parapertussis Not Detected Not Detected LAB MICROBIOLOGY METHOD 11/10/2024 5:53 PM EDT [facility] Mycoplasma pneumo by PCR Not Detected Not Detected LAB MICROBIOLOGY METHOD 11/10/2024 5:53 PM EDT [facility] Chlamydia pneumoniae Not Detected Not Detected LAB MICROBIOLOGY METHOD 11/10/2024 5:53 PM EDT [facility] SARS COV-2 Not Detected Not Detected LAB MICROBIOLOGY METHOD 11/10/2024 5:53 PM EDT [facility] Swab Both anterior nares / Unknown Non-blood Collection / Unknown 11/10/2024 4:15 PM EDT 11/10/2024 4:46 PM EDT [facility] - 11/10/2024 5:53 PM EDT Testing was performed using the M[employer]ave[employer] Respiratory Pathogen PCR Assay. All results must [...] that are below the limit of detection. us Idris Rogers MD LAB MICROBIOLOGY - GENERAL NATHALIE TYLER Final Result [facility] [address] [place] [address], [place] [phone] * (ABNORMAL) CBC auto differential (11/10/2024 4:14 PM EDT) [facility] WBC 9.9 4.8 - 10.8 K/mcL LAB HEMETOLOGY METHOD 11/10/2024 4:52 PM EDT [facility] RBC 4.40 3.80 - 4.80 M/mcL LAB HEMETOLOGY METHOD 11/10/2024 4:52 PM EDT [facility] Hemoglobin 13.2 11.5 - 16.0 g/dL LAB HEMETOLOGY METHOD 11/10/2024 4:52 PM EDT [facility] Hematocrit 40.7 35.0 - 47.0 % LAB HEMETOLOGY METHOD 11/10/2024 4:52 PM EDT [facility] MCV 92.1 79.0 - 98.0 FL LAB HEMETOLOGY METHOD 11/10/2024 4:52 PM EDT [facility] MCH 29.9 27.0 - 32.0 pcg LAB HEMETOLOGY METHOD 11/10/2024 4:52 PM EDT [facility] MCHC 32.4 32.0 - 37.0 g/dL LAB HEMETOLOGY METHOD 11/10/2024 4:52 PM EDT [facility] RDW 13.2 11.0 - 15.0 % LAB HEMETOLOGY METHOD 11/10/2024 4:52 PM EDT [facility] Platelets 343 130 - 400 K/mcL LAB HEMETOLOGY METHOD 11/10/2024 4:52 PM [facility] MPV 10.9 7.0 - 11.0 FL LAB HEMETOLOGY METHOD 11/10/2024 4:52 PM [facility] NRBC 0.0 <1.0 % LAB HEMETOLOGY METHOD 11/10/2024 4:52 PM [facility] NRBC Absolute 0.00 <0.10 K/mcL LAB HEMETOLOGY METHOD 11/10/2024 4:52 PM [facility] Neutrophils Relative 64.8 % LAB HEMETOLOGY METHOD 11/10/2024 4:52 PM [facility] Lymphocytes Relative 15.7 % LAB HEMETOLOGY METHOD 11/10/2024 4:52 PM [facility] Monocytes Relative 9.5 % LAB HEMETOLOGY METHOD 11/10/2024 4:52 PM [facility] Eosinophils Relative 9.0 % LAB HEMETOLOGY METHOD 11/10/2024 4:52 PM [facility] Basophils Relative 0.7 % LAB HEMETOLOGY METHOD 11/10/2024 4:52 PM [facility] Immature Granulocytes Relative 0.3 % LAB HEMETOLOGY METHOD 11/10/2024 4:52 PM [facility] Neutrophils Absolute 6.37 1.50 - 7.00 K/mcL LAB HEMETOLOGY METHOD 11/10/2024 4:52 PM [facility] Lymphocytes Absolute 1.55 1.00 - 5.00 K/mcL LAB HEMETOLOGY METHOD 11/10/2024 4:52 PM [facility] Monocytes Absolute 0.94 0.20 - 1.00 K/mcL LAB HEMETOLOGY METHOD 11/10/2024 4:52 PM [facility] Eosinophils Absolute 0.89(H) 0.00 - 0.50 K/mcL LAB HEMETOLOGY METHOD 11/10/2024 4:52 PM EDT [facility] Basophils Absolute 0.07 0.00 - 0.20 K/[facility] LAB HEMETOLOGY METHOD 11/10/2024 4:52 PM EDT [facility] Immature Granulocytes Absolute 0.03 0.00 - 0.03 K/[facility] LAB HEMETOLOGY METHOD 11/10/2024 4:52 PM EDT [facility] Blood Venous blood specimen / Unknown Venipuncture / Unknown 11/10/2024 4:14 PM EDT 11/10/2024 4:46 PM EDT us Idris Rogers MD LAB BLOOD ORDERABLES Final Resu lt Performing Organization Address [facility]/ZIP Co de Phone Number [facility] [address] [place] [address], [place] [phone] * B-type natriuretic peptide (11/10/2024 4:14 PM EDT) Pathologist [facility] BNP 11 <=100 pcg/mL LAB CHEMISTRY METHOD 11/10/2024 5:23 PM EDT [facility] Blood Venous blood specimen / Unknown Venipuncture / Unknown 11/10/2024 4:14 PM EDT 11/10/2024 4:46 PM EDT us Idris Rogers MD LAB BLOOD ORDERABLES Final Resu lt [facility] [address] [place] [address], [place] [phone] * Basic metabolic panel (11/10/2024 4:14 PM EDT) Sodium 137 133 - 145 mmol/L LAB CHEMISTRY METHOD 11/10/2024 5:11 PM EDT [facility] Potassium 4.0 3.5 - 5.5 mmol/L LAB CHEMISTRY METHOD 11/10/2024 5:11 PM EDT [facility] Chloride 106 96 - 110 mmol/L LAB CHEMISTRY METHOD 11/10/2024 5:11 PM [facility] CO2 26 21 - 32 mmol/L LAB CHEMISTRY METHOD 11/10/2024 5:11 PM [facility] Anion Gap 5 3 - 11 LAB CHEMISTRY METHOD 11/10/2024 5:11 PM [facility] Glucose 82 70 - 100 mg/dL LAB CHEMISTRY METHOD 11/10/2024 5:11 PM [facility] BUN 11 5 - 25 mg/dL LAB CHEMISTRY METHOD 11/10/2024 5:11 PM [facility] Creatinine 0.56 0.50 - 1.10 mg/dL LAB CHEMISTRY METHOD 11/10/2024 5:11 PM [facility] eGFR 95 >=60 mL/min/1. 73m2 LAB CHEMISTRY METHOD 11/10/2024 5:11 PM [facility] Comment:Calculation based on the Chronic Kidney Disease Epidemiology Collaboration (CKD-EPI) equation refit without adjustment for race. BUN/Creatinine Ratio 19.6 LAB CHEMISTRY METHOD 11/10/2024 5:11 PM [facility] Calcium 9.7 8.5 - 10.5 mg/dL LAB CHEMISTRY METHOD 11/10/2024 5:11 PM [facility] Blood Venous blood specimen / Unknown Venipuncture / Unknown 11/10/2024 4:14 PM EDT 11/10/2024 4:46 PM EDT us Idris Rogers MD LAB BLOOD ORDERABLES Final Resu lt [facility] [address] [place] [address], [place] [phone] from Last 3 Mon[place] [address] [facility] [employer] Member Subscriber Plan / Payer (Ef fective 2023-Present) Name:Margarita Zamora Relation to Subscriber:Self Name:Margarita Zamora Payer ID:[id number] Group ID:Not on file Type:Not on file Address: [address] [place] [address] [employer] MEDICARE Member Subscriber Plan / Payer (Ef fective 2023-Present) Name:Margarita Zamora Relation to Subscriber:Self Name:Margarita Zamora Payer ID:[id number] Group ID:[id number] Type:Not on file Address: [address] [place] [address] Advance Directives * Full Code - Confirmed [...] currently active code status orders. Care Teams City Council Member Relationship Specialty Start Date End Date Mary Flores MD [facility] [place] [address] PCP - General Rotating Equipment Specialist 08/25/24
== END 2024-12-14 08:36 | disposition home or self-care (01) ==
LOC: HO.MAMMO 08:35
PROVIDERS: PCP General Practice; Visit Provider General Practice
DX: Z12.31 Encounter for screening mammogram for malignant neoplasm of breast (principal)
CPT/HCPCS: 77063; 77067

== ENCOUNTER → 2024-12-14 08:45 | Outpatient (BNV) | payer OTHER, SELFPAY | PROVIDERS: PCP General Practice; Visit Provider Internal Medicine | DX: Z12.31 Encounter for screening mammogram for malignant neoplasm of breast (principal) | CPT/HCPCS: 77063; 77067 ==

== ENCOUNTER 2024-12-16 09:35 | Outpatient (REF) | payer OTHER, SELFPAY ==
--- NOTE | ~2024-12-16 | XR_ITS ---
EXAMINATION: XR CHEST CLINICAL INFORMATION: L sided pleural effusion COMPARISON: 11/15/2024. TECHNIQUE: 2 views of the chest were obtained. FINDINGS: The cardiac, hilar, and mediastinal contours are normal. Lungs appear hyperaerated. There is a small left layering effusion with underlying passive atelectasis. This appears stable. The right lung appears clear. No right effusion. No pneumothorax. There is no focal osseous or soft tissue abnormality. There are degenerative spinal changes. Cholecystectomy clips are noted. XR/XR chest 2V IMPRESSION: Small left-sided pleural effusion with underlying passive atelectasis. Overall no significant interval change. Electronically signed by: Cyril Sarkar MD 12/16/2024 10:02 AM EDT
--- OUTSIDE RECORDS SUMMARY | 2024-12-16 10:02 | XMS_ITS ---
Author Name Sonya Gallagher NP Address [address] [place] [address] Phone [phone] [facility] Care Team Providers Care Glassblower Name Role Phone Sonya Gallagher Unavailable [phone] NATALY CRANDALL Unavailable [phone] Bret Bonner Unavailable [phone] Deanna Casillas Unavailable [phone] CALEB RAMON Unavailable [phone] EDWARD REBOLLEDO Unavailable [phone] Reason for Referral Not Available Allergies, adverse [...] 290 MCG Cap TAKE 1 CAPSULE BY [facility] EVERY MORNING 2021-10-25 No Data Available Albuterol Sulfate HFA 108 (9 0 Base) MCG/ACT Aerosol Solution INHALE 2 PUFFS BY MOUTH EVERY 4 TO 6 HOURS NEEDED 2021-05-30 No Data Available Amitriptyline 100 mg Tab TAKE 1 TABLET B Y MOUTH AT BEDTIME 2021-10-09 No Data Available Creon 62503-93820 UNIT Cap delayed rel TAKE 1 CAPSULE BY MOUTH FOUR TIMES DAILY, WITH MEALS OR SNACKS AND AT BEDTIME 2021-11-08 No Data Available Cyclobenzaprine 10 mg Tab TAKE 1 TABLET BY MOUTH AT BEDTIME 2021-10-09 No Data Available Daliresp 500 MCG Tab TAKE 1 TABLET BY [facility] EVERY DAY 2021-05-30 No Data Available [...] Available Vitamin D (Ergocalciferol) 1 .25 mg (03496 UT) Cap TAKE 1 CAPSULE BY MOUTH [...] (do not use for phone, instead use 44648-31) [facility] Hypertensive heart disease w ith heart failureHeart failure, unspecifiedUnspecified asthma, uncomplicatedChronic obstructive pulmonary disease, unspecifiedRheumatoid arthritis, unspecifiedHyperlipidemia, unspecifiedDepression, unspecified New patient,40-59min; chronic exacerbation, 2 stable chronic or 1 acute illness add add modifier 95 for video (do not use for phone, instead use 77110-21) [facility] New patient,40-59min; chronic exacerbation, 2 stable chronic or 1 acute illness add add modifier 95 for video (do not use for phone, instead use 04633-74) [facility] New patient,40-59min; chronic exacerbation, 2 stable chronic or 1 acute illness add add modifier 95 for video (do not use for phone, instead use 14308-48) [facility] New patient,40-59min; chronic exacerbation, 2 stable chronic or 1 acute illness add add modifier 95 for video (do not use for phone, instead use 37319-51) [facility]/20[place] New patient,40-59min; chronic exacerbation, 2 stable chronic or 1 acute illness add add modifier 95 for video (do not use for phone, instead use 63938-47) [facility]/20[place] New patient,40-59min; chronic exacerbation, 2 stable chronic or 1 acute illness add add modifier 95 for video (do not use for phone, instead use 33349-30) [facility]/20[place] New patient,40-59min; chronic exacerbation, 2 stable chronic or 1 acute illness add add modifier 95 for video (do not use for phone, instead use 12544-77) [facility]/20[place] New patient,40-59min; chronic exacerbation, 2 stable chronic or 1 acute illness add add modifier 95 for video (do not use for phone, instead use 99340-17) [facility] ([place] 04/08/2022 Estab. patient 20-29min; 1 stable chronic or 2 minor; add add modifier 95 for video, modifier 93 for phone [facility] ([place] 05/09/2022 Hypertensive heart disease w ith heart [...] (do not use for phone, instead use 17079-36) 97204 2022-04-09 No Data Available No Data Availa [...] 95 for video, modifier 93 for phone 60827 2022-05-09 No Data Available No Data Availa [...] modifier 95Continue to see PCP. Follow-up with [facility] as needed for any acute or disease [...] using a udio and video over the [facility] tablet. Time spent in visit: 20 minutesToday, patient has chief complaint of: monitoring of chronic conditions 2022-05-09 Most recent hospital stay(s) or ER visit(s) and precipitating factors: denies 2022-05-09 Open HEDIS Measure r raven: done
--- OUTSIDE RECORDS SUMMARY | 2024-12-16 10:02 | XMS_ITS | Encounter Summary ---
Author Organization [email or web address] Address [address] [place] [address] [address] [place] [address] Care Team Providers Care Maintenance Machinist Name Role Phone Mary Flores MD Primary Care Provider [phone] Reason for Visit * Reason Comments Med Refill Encounter Details Date Type Department Care Team (Late st Contact Info) Description 08/15/[address] [facility] [address] [place], [place] [phone] Keri Ochoa MD [address] [place] [address] Social History Tobacco Use Types Packs/Day Years [...] on filedocumented in this encounter Care Teams Maintenance Machinist Relationship Specialty Start Date End Date Mary Flores MD [address] [place] [phone] PCP - General Family Medicine 8/27/22 [facility] 08/29/24 documented as of this encounter
--- OUTSIDE RECORDS SUMMARY | 2024-12-16 10:03 | XMS_ITS | Clinical Summary ---
Author Organization [facility] Address [address] [place] [address] [place] [phone] Phone Care Team Providers Care Court Operations Clerk Name Role Phone Pcp, Not Required Primary [...] [place] [address] [facility] MEDICARE [place]PL[place] [address] MEDICARE REPLACEMENT Member Subscriber Plan / Payer (Ef fective 2017-Present) Name:Margarita Zamora Relation to Subscriber:Self Name:Margarita Zamora Payer ID:[id number] (NAIC) Group ID:[id number] Type:Medicare Address: [place] [phone] [place] [address] MEDICARE REPLACEMENT Member Subscriber Plan / Payer (Ef fective 2017-Present) Name:Margarita Zamora Relation to Subscriber:Self Name:Margarita Zamora Payer ID:[id number] (NAIC) Group ID:[id number] Type:Medicare Address: [place] [id number] Member Subscriber Plan / Payer (Ef fective 2017-Present) Name:Margarita Zamora Relation to Subscriber:Self Name:Margarita Zamora Payer ID:[id number] (NAIC) Group ID:[id number] Type:Medicare Address: [place] [id number] [facility] MEDICARE REPLACEMENT [facility] MEDICARE REPLACEMENT Care Teams Court Operations Clerk Relationship Specialty Start Date End Date Pcp, Not Required [address] [place] [address] PCP - General 06/16/17 Additional Source Comments The information contained in this document represents components of the legal health record. It is not the complete legal health record.[facility]
--- OUTSIDE RECORDS SUMMARY | 2024-12-16 10:03 | XMS_ITS | Clinical Summary ---
Author Organization [facility] Address [address] [place] [address] Phone Care Team Providers Care Motorcycle Designer Name Role Phone Mary Flores MD Primary Care Provider [phone] Allergies Active Allergy Reactions Criticality Noted Date [...] obstructive pulmonar y disease ([facility] V24, [facility] V28) 09/08/2024 Essential tremor 09/08/2024 Gallstone 09/08/2024 Gastroesophageal reflux disease 09/08/2024 Herniated lumbar intervertebral disc 09/08/2024 Hiatal hernia 09/08/2024 Hyperlipidemia 09/08/2024 Essential hypertension 09/08/2024 Chronic constipation 09/08/2024 Irritable bowel syndrome with constipation 09/08 Lung nodule 09/08/2024 Empyema lung ([facility] V24, [facility] V28) 09/09/19 25 Assessment & Plan (09/10/2024 [...] 09/08/2024 Enuresis, nocturnal only 09/08/2024 Depression, recurrent ([facility] V24) 09/08/2024 Trapezius muscle spasm 09/08/2024 Influenza A 09/08/2024 Obesity, morbid ([facility] V24, [facility] V28) 09/08 Pneumonia due to infectious organism 09/08/2024 Loculated pleural effusion 08/20/2024 Encounters Date Type Department Care Team Description 12/08/2024 Telephone Thoracic Surgery - [address] [place] [phone] Rahel Walker [place] Appointment (Request to be seen) 11/10/2024 6:49 PM EDT - 11/10/2024 8:53 PM EDT Emergency [facility] Emergency [address] [place] [phone] Pharyngitis, unspecified etiology (Primary Dx); Acute cough Discharge Disposition: Home or Self Care 09/27/2024 Telephone Pulmonology - [place] [address] [place] [phone] Imelda Santiago MA from Last 3 Months Surgical History Surgery Date Site/Laterality Comments LUNG DECORTICATION 08/21/2024 Left Medical History Medical History Date Comments Empyema lung ([facility] V24, [facility] V28) 08/21/19 25 Left lung empyema Arthritis of both knees Asthma Chronic obstructive pulmonar y disease ([facility] V24, [facility] V28) Essential tremor Gallstone Gastroesophageal reflux disease [...] nocturnal only Depression, recurrent ([facility] V24) Trapezius muscle spasm Influenza A Obesity, morbid ([facility] V24, [facility] V28) Pneumonia due to infectious organism Social [...] Negative Negative, Invalid 11/10/2024 8:19 PM EDT [facility] Comment:Refer to Throat Cult ure. Swab Structure of anterior portion of neck / Unknown Non-blood Collection / Unknown 11/10/2024 7:29 PM EDT 11/10/2024 8:06 PM EDT Adri CAMPBELL LAB MICROBIOLOGY - GENERAL ORDERABLES Final Result Performing Organization Address [facility]/ZIP Co de Phone Number [facility] [address] [place] [address], [place] [phone] * Culture throat (11/10/2024 7:29 PM EDT) Culture, Throat No pathogens isolated. 11/12/2024 10:47 AM EDT [facility] Swab Structure of anterior portion of neck / Unknown Non-blood Collection / Unknown 11/10/2024 7:29 PM EDT 11/10/2024 8:06 PM EDT Adri CAMPBELL LAB MICROBIOLOGY - GENERAL ORDERABLES Final Result Performing Organization Address [facility] Co de Phone Number [facility] [address] [place] [address], [place] [phone] * XR Chest 2 Views (11/10/2024 4:22 [...] Signed Date: 11/10/2024 16:34 ET Workstation ID: [id number] Transcribed By: Self Edit Transcribed Date: 11/10/2024 [...] Signed Date: 11/10/2024 16:34 ET Workstation ID: [id number] Transcribed By: Self Edit Transcribed Date: 11/10/2024 16:34 ET Idris Rogers MD IMG XR PROCEDURES Final Result * Respiratory virus panel molecular study (11/10/2024 4:15 PM EDT) Adenovirus Detection by PCR Not Detected Not Detected LAB MICROBIOLOGY METHOD 11/10/2024 5:53 PM EDT [facility] Influenza A PCR Not Detected Not Detected LAB MICROBIOLOGY METHOD 11/10/2024 5:53 PM EDT [facility] Influenza B PCR Not Detected Not Detected LAB MICROBIOLOGY METHOD 11/10/2024 5:53 PM EDT [facility] Coronavirus 229E Not Detected Not Detected LAB MICROBIOLOGY METHOD 11/10/2024 5:53 PM EDT [facility] Coronavirus HKU1 Not Detected Not Detected LAB MICROBIOLOGY METHOD 11/10/2024 5:53 PM EDT [facility] Coronavirus OC43 Not Detected Not Detected LAB MICROBIOLOGY METHOD 11/10/2024 5:53 PM EDT [facility] Coronavirus NL63 Not Detected Not Detected LAB MICROBIOLOGY METHOD 11/10/2024 5:53 PM EDT [facility] Parainfluenza Virus 1 Not Detected Not Detected LAB MICROBIOLOGY METHOD 11/10/2024 5:53 PM EDT [facility] Parainfluenza Virus 2 Not Detected Not Detected LAB MICROBIOLOGY METHOD 11/10/2024 5:53 PM EDT [facility] Parainfluenza Virus 3 Not Detected Not Detected LAB MICROBIOLOGY METHOD 11/10/2024 5:53 PM EDT [facility] Parainfluenza Virus 4 Not Detected Not Detected LAB MICROBIOLOGY METHOD 11/10/2024 5:53 PM EDT [facility] RSV PCR Not Detected Not Detected LAB MICROBIOLOGY METHOD 11/10/2024 5:53 PM EDT [facility] Human Metapneumovirus A and B Not Detected Not Detected LAB MICROBIOLOGY METHOD 11/10/2024 5:53 PM EDT [facility] Rhinovirus/Entero virus Not Detected Not Detected LAB MICROBIOLOGY METHOD 11/10/2024 5:53 PM EDT [facility] Bordetella pertussis Not Detected Not Detected LAB MICROBIOLOGY METHOD 11/10/2024 5:53 PM EDT [facility] Bordetella parapertussis Not Detected Not Detected LAB MICROBIOLOGY METHOD 11/10/2024 5:53 PM EDT [facility] Mycoplasma pneumo by PCR Not Detected Not Detected LAB MICROBIOLOGY METHOD 11/10/2024 5:53 PM EDT [facility] Chlamydia pneumoniae Not Detected Not Detected LAB MICROBIOLOGY METHOD 11/10/2024 5:53 PM EDT [facility] SARS COV-2 Not Detected Not Detected LAB MICROBIOLOGY METHOD 11/10/2024 5:53 PM EDT [facility] Swab Both anterior nares / Unknown Non-blood Collection / Unknown 11/10/2024 4:15 PM EDT 11/10/2024 4:46 PM EDT [facility] - 11/10/2024 5:53 PM EDT Testing was performed using the [employer] Respiratory Pathogen PCR Assay. All results must [...] MICROBIOLOGY - GENERAL NATHALIE TYLER Final Result [facility] [address] [place] [address], [place] [phone] * (ABNORMAL) CBC auto differential (11/10/2024 4:14 PM EDT) [facility] WBC 9.9 4.8 - 10.8 K/mcL LAB HEMETOLOGY METHOD 11/10/2024 4:52 PM EDT [facility] RBC 4.40 3.80 - 4.80 M/mcL LAB HEMETOLOGY METHOD 11/10/2024 4:52 PM EDT [facility] Hemoglobin 13.2 11.5 - 16.0 g/dL LAB HEMETOLOGY METHOD 11/10/2024 4:52 PM EDT [facility] Hematocrit 40.7 35.0 - 47.0 % LAB HEMETOLOGY METHOD 11/10/2024 4:52 PM EDT [facility] MCV 92.1 79.0 - 98.0 FL LAB HEMETOLOGY METHOD 11/10/2024 4:52 PM EDT [facility] MCH 29.9 27.0 - 32.0 pcg LAB HEMETOLOGY METHOD 11/10/2024 4:52 PM EDT [facility] MCHC 32.4 32.0 - 37.0 g/dL LAB HEMETOLOGY METHOD 11/10/2024 4:52 PM EDT [facility] RDW 13.2 11.0 - 15.0 % LAB HEMETOLOGY METHOD 11/10/2024 4:52 PM EDT [facility] Platelets 343 130 - 400 K/mcL LAB HEMETOLOGY METHOD 11/10/2024 4:52 PM [facility] MPV 10.9 7.0 - 11.0 FL LAB HEMETOLOGY METHOD 11/10/2024 4:52 PM [facility] NRBC 0.0 <1.0 % LAB HEMETOLOGY METHOD 11/10/2024 4:52 PM [facility] NRBC Absolute 0.00 <0.10 K/mcL LAB HEMETOLOGY METHOD 11/10/2024 4:52 PM [facility] Neutrophils Relative 64.8 % LAB HEMETOLOGY METHOD 11/10/2024 4:52 PM [facility] Lymphocytes Relative 15.7 % LAB HEMETOLOGY METHOD 11/10/2024 4:52 PM [facility] Monocytes Relative 9.5 % LAB HEMETOLOGY METHOD 11/10/2024 4:52 PM [facility] Eosinophils Relative 9.0 % LAB HEMETOLOGY METHOD 11/10/2024 4:52 PM [facility] Basophils Relative 0.7 % LAB HEMETOLOGY METHOD 11/10/2024 4:52 PM [facility] Immature Granulocytes Relative 0.3 % LAB HEMETOLOGY METHOD 11/10/2024 4:52 PM [facility] Neutrophils Absolute 6.37 1.50 - 7.00 K/mcL LAB HEMETOLOGY METHOD 11/10/2024 4:52 PM [facility] Lymphocytes Absolute 1.55 1.00 - 5.00 K/mcL LAB HEMETOLOGY METHOD 11/10/2024 4:52 PM [facility] Monocytes Absolute 0.94 0.20 - 1.00 K/mcL LAB HEMETOLOGY METHOD 11/10/2024 4:52 PM [facility] Eosinophils Absolute 0.89(H) 0.00 - 0.50 K/mcL LAB HEMETOLOGY METHOD 11/10/2024 4:52 PM EDT [facility] Basophils Absolute 0.07 0.00 - 0.20 K/[facility] LAB HEMETOLOGY METHOD 11/10/2024 4:52 PM EDT [facility] Immature Granulocytes Absolute 0.03 0.00 - 0.03 K/[facility] LAB HEMETOLOGY METHOD 11/10/2024 4:52 PM EDT [facility] Blood Venous blood specimen / Unknown Venipuncture / Unknown 11/10/2024 4:14 PM EDT 11/10/2024 4:46 PM EDT us Idris Rogers MD LAB BLOOD ORDERABLES Final Resu lt Performing Organization Address [facility]/ZIP Co de Phone Number [facility] [address] [place] [address], [place] [phone] * B-type natriuretic peptide (11/10/2024 4:14 PM EDT) Pathologist [facility] BNP 11 <=100 pcg/mL LAB CHEMISTRY METHOD 11/10/2024 5:23 PM EDT [facility] Blood Venous blood specimen / Unknown Venipuncture / Unknown 11/10/2024 4:14 PM EDT 11/10/2024 4:46 PM EDT us Idris Rogers MD LAB BLOOD ORDERABLES Final Resu lt [facility] [address] [place] [address], [place] [phone] * Basic metabolic panel (11/10/2024 4:14 PM EDT) Sodium 137 133 - 145 mmol/L LAB CHEMISTRY METHOD 11/10/2024 5:11 PM EDT [facility] Potassium 4.0 3.5 - 5.5 mmol/L LAB CHEMISTRY METHOD 11/10/2024 5:11 PM EDT [facility] Chloride 106 96 - 110 mmol/L LAB CHEMISTRY METHOD 11/10/2024 5:11 PM [facility] CO2 26 21 - 32 mmol/L LAB CHEMISTRY METHOD 11/10/2024 5:11 PM [facility] Anion Gap 5 3 - 11 LAB CHEMISTRY METHOD 11/10/2024 5:11 PM [facility] Glucose 82 70 - 100 mg/dL LAB CHEMISTRY METHOD 11/10/2024 5:11 PM [facility] BUN 11 5 - 25 mg/dL LAB CHEMISTRY METHOD 11/10/2024 5:11 PM [facility] Creatinine 0.56 0.50 - 1.10 mg/dL LAB CHEMISTRY METHOD 11/10/2024 5:11 PM [facility] eGFR 95 >=60 mL/min/1. 73m2 LAB CHEMISTRY METHOD 11/10/2024 5:11 PM [facility] Comment:Calculation based on the Chronic Kidney Disease Epidemiology Collaboration (CKD-EPI) equation refit without adjustment for race. BUN/Creatinine Ratio 19.6 LAB CHEMISTRY METHOD 11/10/2024 5:11 PM [facility] Calcium 9.7 8.5 - 10.5 mg/dL LAB CHEMISTRY METHOD 11/10/2024 5:11 PM [facility] Blood Venous blood specimen / Unknown Venipuncture / Unknown 11/10/2024 4:14 PM EDT 11/10/2024 4:46 PM EDT us Idris Rogers MD LAB BLOOD ORDERABLES Final Resu lt [facility] [address] [place] [address], [place] [phone] from Last 3 [place] [address] [facility] Member Subscriber Plan / Payer (Ef fective 2023-Present) Name:Margarita Zamora Relation to Subscriber:Self Name:Margarita Zamora Payer ID:[id number] Group ID:Not on file Type:Not on file Address: [address] [place] [address] [employer] MEDICARE Member Subscriber Plan / Payer (Ef fective 2023-Present) Name:Margarita Zamora Relation to Subscriber:Self Name:Margarita Zamora Payer ID:[id number] Group ID:[id number] Type:Not on file Address: [address] [place] [address] Advance Directives * Full Code - Confirmed [...] currently active code status orders. Care Teams Motorcycle Designer Relationship Specialty Start Date End Date Mary Flores MD [facility] [place] [address] PCP - General Parking Inspector 08/25/24
--- OUTSIDE RECORDS SUMMARY | 2024-12-16 10:03 | XMS_ITS | Clinical Summary ---
Author Organization [facility] Address [address] [address] Care Team Providers Care Healthcare Administrator Name Role Phone Frances Fowler RN Primary [...] DAILY FOR 2 DAYS. 12/21/2020 Active Creon 04534-55098 units capsule TAKE 1 CAPSULE BY MOUTH [...] by mouth 02/12/2021 Active ergocalciferol 1.25 MG (75677 UT) capsule TAKE 1 CAPSULE BY MOUTH [...] Dual Elig Plan Dual Elig Care Teams Healthcare Administrator Relationship Specialty Start Date End Date Frances Fowler RN PCP - General Family Medicine 11/09/20
[2024-12-16 11:31] LABS: MANUAL DIFF FLAG NO
[2024-12-16 11:44] LABS: Hematocrit 42.1 % (37.0-47.0); Hemoglobin 13.8 g/dl (12.0-16.0); Imm Gran Abs Auto 0.01 X10*3/uL (0.00-0.03); Imm Gran Pct Auto 0.1 % (0.0-0.4); Lymphocytes Absolute Auto 1.8 X10*3/uL (1.2-4.9); Mean Corpuscular HGB Conc 32.8 g/dl (31.0-35.0); Mean Corpuscular Hemoglobin 28.8 pg (27.0-33.0); Mean Corpuscular Volume 87.9 fL (80.0-98.0); NRBC Abs Auto 0.000 X10*3/uL (0.0-0.012); NRBC Pct Auto 0.0 /100WBC (0.0-0.2); Platelet Count 325 X10*3/uL (160-400); Red Blood Count 4.79 X10*6/uL (4.20-5.50); White Blood Count 7.3 X10*3/uL (4.8-10.8)
== END 2024-12-16 09:36 | disposition home or self-care (01) ==
LOC: HO.HHCX 09:35
PROVIDERS: PCP General Practice; Visit Provider General Practice
DX: J90 Pleural effusion, not elsewhere classified (principal)
CPT/HCPCS: 36415; 71046; 85025; 86140

== ENCOUNTER → 2024-12-16 09:46 | Outpatient (BNV) | payer OTHER, SELFPAY | PROVIDERS: PCP General Practice; Visit Provider Radiology Diagnostic Radiology | DX: J90 Pleural effusion, not elsewhere classified (principal) | CPT/HCPCS: 71046 ==